=== PATIENT | female | born 1945 | race Caucasian/White ===

== ENCOUNTER → 2017-08-29 12:56 | Outpatient (CLI) | payer MEDICARE, OTHER, SELFPAY ==
--- NOTE | 2017-08-29 13:00 | HPBI_ITS ---
MAMMOGRAPHY - BILATERAL SCREENING 3-D ANDREW SYNTHESIS REASON FOR EXAM: Female, 72 years old. Bilateral Screening 3-D tomosynthesis PERTINENT HISTORY: Asymptomatic. Open-heart surgery 2009. No significant family history. TECHNIQUE: 2-D mammograms and 3-D Andrew synthesis of the breast (s) were performed. CAD was performed. COMPARISON: 02/03/2016, 01/22/2014. FINDINGS: The breast composition is almost entirely fat. Scattered benign calcifications are seen. No dense spiculated masses or suspicious microcalcifications are identified. No architectural distortion is identified. There is no skin thickening or retraction. There has been no significant change since the prior study. HPBI/SCREENING MAMM (CAD), BILAT IMPRESSION: No mammographic signs of malignancy. Routine yearly mammograms recommended. ASSESSMENT CATEGORY: BIRADS Category 1: Negative. A letter regarding these results will be sent to the patient by the facility within 30 days. FOLLOW UP RECOMMENDATION: Yearly follow up mammogram recommended. (A) Approximately 10% of breast cancers are not detected by mammography. A normal mammogram should not delay biopsy of a clinically suspicious abnormality. Electronically Signed: Matteo Schaefer, at 20:53 EDT Tel , Service support ,
== END ==
LOC: BD 12:57 → BI 13:14
PROVIDERS: Family Provider Family Medicine Geriatric Medicine; PCP Family Medicine Geriatric Medicine; Visit Provider Family Medicine Geriatric Medicine
DX: Z12.31 Encounter for screening mammogram for malignant neoplasm of breast (principal)
CPT/HCPCS: 77063; 77067

== ENCOUNTER 2018-11-29 11:11 | Inpatient (IN) | payer MEDICARE, OTHER, MEDICAID, SELFPAY ==
[2018-11-29] VITALS (11 sets, daily range): BP systolic 92–120; BP diastolic 43–86; PULSE 77–101; RESP 10–18; TEMP 36.8–37.3; O2SAT 98–100; BMI 21.1; BMI 20.1
--- NOTE | 2018-11-29 11:48 | EKG12_ITS ---
Test Reason : HYPOTENSION Blood Pressure : / mmHG Vent. Rate : 076 BPM Atrial Rate : 076 BPM P-R Int : 202 ms QRS Dur : 106 ms QT Int : 386 ms P-R-T Axes : 092 -15 123 degrees QTc Int : 434 ms Normal sinus rhythm with sinus arrhythmia Left ventricular hypertrophy with repolarization abnormality Anteroseptal infarct , age undetermined , cannot be excluded Abnormal ECG Confirmed by PEG MORENO, CRISSY ([id number]), newspaper editor YUE CAMPO ([id number]) on 12/03/2018 2:23:40 PM Referred By: DREW Confirmed By:CRISSY RUVALCABA MD
--- NOTE | 2018-11-29 11:50 | RAD_ITS ---
STUDY: X-RAY CHEST REASON FOR EXAM: Female, 73 years old. TECHNIQUE: 2 views COMPARISON: None. FINDINGS: The heart is not enlarged. There is aortic valve replacement. The aortic arch show some atherosclerotic changes. Both lung barbosa and costophrenic angles are clear. There is shoulder replacement on the right side. Multiple metallic stitches seen along the sternum from previous surgery. Metallic curtis are noted in the anterior abdomen from surgery. There is scoliosis of the dorsal spine convexity to the right side. RAD/Chest PA and Lateral IMPRESSION: No active intrathoracic disease. Electronically Signed: Eliud Perez, at 14:10 EDT Tel , Service support ,
--- NOTE | 2018-11-29 12:10 | ED.VISSUMM ---
- ER Visit Summary Date of Service: 11/29/18 Chief Complaint: Weakness, fatigue, pallor History of Present Illness: The patient is a 73 F who presents with weakness, fatigue, and pallor that has been getting progressively worse over the past 3 weeks. Patient states she feels aching all over and is fatigued. Patient states that she has to hold onto tinajero when she walks. Daughter states the patient did have an episode of confusion recently where she forgot her granddaughters name. Patient admits to some shortness of breath with exertion as well. Patient denies any chest pain. Patient denies any sore throat. Patient admits to subjective fevers but denies any chills. Patient denies any nausea or vomiting. Patient denies any melena or hematochezia but does state that she takes iron. Physical Examination: Vital signs are stable. Patient is afebrile. Patient is in no acute distress. Oral mucosa is pink and moist. Oropharynx is clear. Pupils are equal, round, reactive to light bilaterally. Extraocular muscles are intact. Conjunctivae is pale. Neck is supple. Trachea is midline. There is no JVD noted. Heart was regular rate and rhythm with a grade 3/6 systolic murmur. Lungs are clear and equal bilaterally. Abdomen is soft. Bowel sounds are normal. There is no tenderness. Cranial nerves II through XII are intact. Rectal exam showed good sphincter tone. There is black stool. Hemoccult was positive. There are no focal motor or sensory deficits noted. Test Results: EKG showed normal sinus rhythm with a rate of 76. There are nonspecific ST-T wave changes in the lateral leads. CBC shows a white blood cell count of 15.4. Hemoglobin was 6.9. BUN was elevated at 58 and creatinine is 1.24. Urinalysis shows leukocyte esterase of 25 with positive nitrites, 0-5 white blood cells, 0 epithelial cells, and 2+ bacteria. Troponin was normal. Emergency Department Course and Treatment: Patient was typed and crossmatched for 1 unit of packed red blood cells. Patient was given a dose of Bactrim here. Case was discussed with Dr. Pinto from surgery. He is agreeable with keeping the patient here at [facility]. Case was discussed with Dr. Chacon. He will admit the patient to his service. Disposition: Admit to hospital Impression: 1. Upper GI bleed 2. Urinary tract infection 3. Anemia This note was generated with [employer] dictation software. It may contain incorrect words, spelling, and punctuation that were not noted in review of the chart prior to signing ED Disposition - Plan for ED Patient: Disposition: Acute Care Hospital [facility] Diagnosis: Upper gastrointestinal bleeding Referrals: Vianca Baca MD [Primary Care Provider] -
[2018-11-29 13:19] LABS: Absolute Lymphocyte Count 1.33 X10^3/ul (0.83-4.51); Absolute Neutrophil Count 12.8 X10^3/uL (2.0-7.7); Basophil# 0.03 X10^3/uL; Basophil% 0.2 % (0-1); Eosinophil# 0.03 X10^3/uL; Eosinophils% 0.2 % (0-5); Hematocrit 20.4 % (37-47); Hemoglobin 6.9 g/dl (12.0-15.0); Lymphocyte # 1.33 X10^3/ul (4.0); Lymphocyte % 8.6 % (19-41); Mean Corp Hgb Conc 33.8 g/gl (32-36); Mean Corpuscular Hgb 31.5 pg (27.0-32.0); Mean Corpuscular Volume 93.2 fL (81-99); Mean Platelet Vol. 9.3 fl (6.2-12.0); Monocyte# 0.84 X10^3/uL; Monocyte% 5.5 % (0-10); Neutrophil # 12.76 X10^3/uL (2.7-7.7); Platelet Count 173 K/mm3 (150-450); RBC Distribution Width CV 14.9 % (11.6-14.6); Red Blood Count 2.19 M/mm3 (4.2-5.4); White Blood Count 15.4 K/mm3 (4.4-11.0)
[2018-11-29 13:20] LABS: Differential Indicated SCAN CRITERIA MET; POSITIVE COUNT YES; POSITIVE DIFFERENTIAL NO; POSITIVE MORPHOLOGY YES
[2018-11-29 13:26] LABS: ALB/GLOB Ratio 0.8 RATIO (0.9-2.4); AST(SGOT) 17 U/L (15-37); Alanine Aminotransfer ALT/SGPT 13 U/L (13-56); Albumin, Serum 2.6 g/dL (3.2-5.0); Alkaline Phosphatase 83 U/L (45-117); Anion Gap 7 (5-15); BUN 58 mg/dL (7-18); BUN/Creat Ratio 46.8 RATIO (10-20); Calcium,Total 8.2 mg/dL (8.5-10.1); Chloride 104 mmol/L (98-107); Creatinine, Serum 1.24 mg/dL (0.55-1.02); EST Glomerular Filtration Rate 45 mL/min (>60); Est Glom Filt Rate - Afr Amer 54 mL/min (>60); Estimated Creatinine Clearance 35.27 ml/min; Globulin 3.4 g/dL (2.2-4.2); Glucose 93 mg/dL (74-106); Potassium 3.8 mmol/L (3.5-5.1); Sodium Level 131 mmol/L (136-145)
[2018-11-29 13:28] LABS: Mucous, Urine 0 SEEN /hpf (<or=2+); Red Blood Cells-Urine 0 SEEN /hpf (0-5); Squamous Epithelial Cells - UA 0 SEEN /hpf (5-10)
[2018-11-29 13:43] LABS: Color, Urine Yellow (Yellow); Glucose, Dipstick Normal (Normal); Ketone-Dipstick Negative (Negative); Leukocyte Esterase-Dipstick 25 /ul (Negative); Nitrite-Dipstick Positive (Negative); Occult Blood-Urine 10 /ul (Negative); Protein-Dipstick Negative (Negative); Urine Bilirubin Dipstick Negative (Negative); Urine Clarity Clear (Clear); Urine Urobilinogen Normal (Normal)
[2018-11-29 13:44] LABS: Bacteria 2+ /hpf (None Seen); White Blood Cells 0-5 SEEN /hpf (0-5)
[2018-11-29] MEDS: Smz/Tmp Ds Tablet 1 TABLET PO (16:12)
--- NOTE | 2018-11-29 16:17 | PCM.HP.STD ---
<Brooks Arechiga - Last Filed: 11/29/18 16:17> Problem List (1) Anemia Status: Acute (2) GI bleed Status: Acute History of Present Illness Date of Admission: 11/29/18 Chief Complaint: fatigue The patient is a 73 year old F with pmhx of bovine aortic valve, arthritis, HTN, HLD, iron deficiency, who presents to the ER with c/c fatigue. She has been progressively more fatigued over the past three weeks. She has been lethargic, sleeping more, lightheaded, dizziness, and SOB. She was found to be anemic with Hgb 6.9. She has had black stools but notes that this is not new, and they are always black as she takes iron. She has intermittently seen drops of red blood and thinks that this has come from hemorrhoids. She does take a baby aspirin nightly that she says is because of her valve replacement. She does take daily mobic, she is not sure why. She has had no abdominal pain, no nausea/vomiting. She does not have a hx of ulcers, GERD, smoking, alcohol use. Stool is + for occult blood in the ER. She cannot remember when her last colonoscopy was however it was done by Dr. Saucedo and showed polyps at that time. UA was abnormal however she denies any new urinary symptoms including urgency, burning, pain, frequency, incontinence. No Fever/Chills. [] Past Medical History Allergies amoxicillin Allergy (Verified 11/29/18 11:16) Itching Penicillins Allergy (Verified 11/29/18 11:16) Itching Home Medications: Ambulatory Orders Medication Instructions Recorded Aspirin [Aspir 81] 81 mg PO DAILY 11/29/18 Carbidopa/Levodopa 1 tab PO BID 11/29/18 [Carbidopa-Levodopa 25-100 Tab] Cholecalciferol (Vitamin D3) 2,000 unit PO DAILY 11/29/18 [Vitamin D3] Citalopram Hydrobromide 10 mg PO DAILY 11/29/18 [Citalopram HBr] Ferrous Sulfate 325 mg PO BID 11/29/18 Fluticasone 0.05% [Flonase Nasal 2 spray NASAL DAILY 11/29/18 [place]] Losartan/Hydrochlorothiazide 1 tab PO DAILY 11/29/18 [Losartan-Hctz 50-12.5 mg Tab] Meloxicam 15 mg PO DAILY 11/29/18 Multivitamin [Multiple Vitamins] 1 tab PO DAILY 11/29/18 Oxybutynin [Ditropan] 5 mg PO TID 11/29/18 Potassium Chloride [Klor-Con M20] 20 meq PO DAILY 11/29/18 Pravastatin [Pravachol] 40 mg PO QHS 11/29/18 Vitamin B Complex 1 cap PO DAILY 11/29/18 traZODone [Desyrel] 100 mg PO QHS 11/29/18 Surgical History: total knee arthroplasty Smoking Status: Never smoker - *Family History Maternal History Items: No pertinent history Paternal History Items: No pertinent history Review of Systems Constitutional: Reports: Malaise, Weakness, Fatigue. Denies: Chills, Fever, Weight Change HEENT: Denies: Head Aches, Sinus Congestion, Sinus Drainage Cardiovascular: Denies: Chest Pain, Palpitations Respiratory: Denies: Cough, Shortness of breath at rest, Sputum production Gastrointestinal: Reports: - - bleeding hemorrhoids. chronic black stools.. Denies: Abdominal Pain, Diarrhea, Nausea, Vomiting Genitourinary: Denies: Dysuria Musculoskeletal: Denies: Joint Pain, Joint Tenderness Skin: Denies: Rash, Wounds Neurological: Denies: Numbness, Tingling, Focal weakness Psychiatric: Denies: Anxiety, Depression, Homicidal Ideations, Suicidal Ideations Hematologic/ Lymphatic: Denies: Easy Bruising, Easy Bleeding VTE Information - Inpt Only VTE Present on Admission: No VTE Mechan Device Prophylaxis: SCD's VTE Pharm Prophylaxis ordered?: No Patient Problems: Active and Suspected Problems Upper gastrointestinal bleeding (Acute) Anemia (Acute) GI bleed (Acute) Acute blood loss anemia (Acute) - Physical Exam General: Alert, Oriented x3, Cooperative, - - generalized pallor HEENT: Atraumatic, PERRLA, EOMI, Normocephalic Neck: Supple, No JVD, Negative Carotid Bruits Lungs: Clear to auscultation, Normal air movement Cardiovascular: Regular rate, No murmurs Abdomen: Bowel Sounds Present, Soft, Non Tender Extremities: No edema, Capillary Refill Less than 3 Seconds Skin: No rashes, No breakdown Musculoskeletal: No Tenderness to Palpation of Joints or Extremities Neurological: Cranial nerves II-XII grossly intact Psych/Mental Status: Normal Affect, Appropriate, Alert and oriented to time, place, person, mood and affect Vital Signs Temp Pulse Resp BP Pulse Ox 98.2 F 77 14 109/86 H 98 11/29/18 11:13 11/29/18 13:13 11/29/18 13:13 11/29/18 13:13 11/29/18 13:13 Oxygen Delivery Method Room Air Weight: 127 lb Body Mass Index (BMI) 21.1 Microbiology Past 72 Hours 11/29/18 14:33 Stool Occult Blood (KYLE) - Final Stool Occult Blood Positive Laboratory Tests Past 24 Hrs 11/29/18 11/29/18 11/29/18 12:55 12:55 13:25 WBC 15.4 H RBC 2.19 L Hgb 6.9 L Hct 20.4 L MCV 93.2 MCH 31.5 MCHC 33.8 RDW 14.9 H RDW Differential 50.0 H Plt Count 173 MPV 9.3 Immature Gran % (Auto) 2.500 H Neut % (Auto) 83.0 H Lymph % (Auto) 8.6 L [place] % (Auto) 5.5 Eos % (Auto) 0.2 Baso % (Auto) 0.2 Absolute Neuts (auto) 12.8 H Absolute Lymphs (auto) 1.33 Total Counted Not Reportable Sodium 131 L Potassium 3.8 Chloride 104 Carbon Dioxide 20.0 L Anion Gap 7 BUN 58 H Creatinine 1.24 H Estim Creat Clear Calc 35.27 Est GFR (MDRD) Af Amer 54 L Est GFR (MDRD) Non-Af 45 L BUN/Creatinine Ratio 46.8 H Glucose 93 Calcium 8.2 L Total Bilirubin 0.40 AST 17 ALT 13 Alkaline Phosphatase 83 Troponin I < 0.015 Total Protein 6.0 L Albumin 2.6 L Globulin 3.4 Albumin/Globulin Ratio 0.8 L Urine Color Yellow Urine Clarity Clear Urine pH 6.0 Ur Specific [place] 1.010 Urine Protein Negative Urine Glucose (UA) Normal Urine Ketones Negative Urine Occult Blood 10 H Urine Nitrite Positive H Urine Bilirubin Negative Urine Urobilinogen Normal Ur Leukocyte Esterase 25 H Urine RBC 0 SEEN Urine WBC 0-5 SEEN Ur Squamous Epith Cells 0 SEEN Urine Bacteria 2+ Urine Mucus 0 SEEN Assessment/Plan All Active Problems Upper gastrointestinal bleeding (Acute) Anemia (Acute) GI bleed (Acute) Acute blood loss anemia (Acute) 1. Acute blood loss anemia 2/2 GI bleed source unclear - does have black stools, occasional drops of blood in stools she attributes to hemorrhoids. No severe hemorrhage as she has had progressive symptoms for weeks. Hgb 6.9, will be transfused with 1 unit prbc in the ER. Hold aspirin, hold meloxicam. No hx ulcers, GERD, alcohol use, smoking, other NSAID use. Last colonoscopy per Dr. Saucedo, timeframe unknown, showed polyps at that time. C/s to Dr. Pnito for endoscopy. Continue iron. 2. HTN - stable 3. HLD - statin. 4. Anx/depression - celexa, trazodone. 5. Asymptomatic bacteriuria - received bactrim in ER. No fever. no symptoms. elevated wbc, possibly 2/2 gi bleed. 6. ? Parkinsons - on carbidopa/levodopa 7. Osteoarthritis - hold meloxicam. 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 8. Elevated BUN/Cr - suspect dehydration. trend. DVT ppx: SCDs DC planning: PTOT. This patient was seen by Brooks Arechiga PA-C under the supervision of Doctor Oswaldo. <Trevon Chacon - Last Filed: 11/29/18 17:07> Problem List (1) Acute blood loss anemia Status: Acute (2) GI bleed Status: Acute History of Present Illness The patient is a 73 year old F presents with progressive fatigue. Patient has been having black stools were period of time but she is on iron. Presented to the emergency room was found to have a hemoglobin of 6.9. Was heme positive as well. Patient does take aspirin as well as Mobic. Patient denies any hematochezia. Patient has had a colonoscopy in the past by Dr. Saucedo which showed some polyps at that time. [] Past Medical History Medical History: Medical History (Last Updated 11/29/18 @ 17:02 by Trevon Chacon DO) Depression F32.9 Hyperlipidemia E78.5 Iron deficiency anemia D50.9 Osteoarthritis M19.90 Parkinson disease G20 HTN (hypertension) I10 Allergies amoxicillin Allergy (Verified 11/29/18 11:16) Itching Penicillins Allergy (Verified 11/29/18 11:16) Itching Surgical History: total knee arthroplasty Smoking Status: Never smoker - *Family History Maternal History Items: No pertinent history Paternal History Items: No pertinent history Review of Systems Constitutional: Reports: Malaise, Weakness, Fatigue. Denies: Chills, Fever, Weight Change HEENT: Denies: Head Aches, Sinus Congestion, Sinus Drainage Cardiovascular: Denies: Chest Pain, Palpitations Respiratory: Denies: Cough, Shortness of breath at rest, Sputum production Gastrointestinal: Reports: -. Denies: Abdominal Pain, Diarrhea, Nausea, Vomiting Genitourinary: Denies: Dysuria Musculoskeletal: Denies: Joint Pain, Joint Tenderness Skin: Denies: Rash, Wounds Neurological: Denies: Focal weakness, Numbness Psychiatric: Denies: Anxiety, Depression, Homicidal Ideations, Suicidal Ideations Hematologic/ Lymphatic: Denies: Easy Bruising, Easy Bleeding VTE Information - Inpt Only VTE Present on Admission: No VTE Mechan Device Prophylaxis: SCD's VTE Pharm Prophylaxis ordered?: No - Physical Exam General: Alert, Cooperative, - HEENT: Atraumatic, PERRLA, EOMI, Normocephalic Neck: Supple, No JVD, Negative Carotid Bruits Lungs: Clear to auscultation, Normal air movement, No rhonchi Cardiovascular: Regular rate, Regular Rhythm, Normal S1, Normal S2, No murmurs Abdomen: Bowel Sounds Present, Soft, Non Tender, Non-Distended, No Hepato-splenomegaly Extremities: No edema, No Calf Tenderness Skin: No rashes, No breakdown Musculoskeletal: No Tenderness to Palpation of Joints or Extremities, No Muscle Wasting Neurological: Neuro grossly intact, Coordination normal Psych/Mental Status: Normal Affect, Appropriate Vital Signs Temp Pulse Resp BP Pulse Ox 36.8 C 77 14 109/86 H 98 11/29/18 11:13 11/29/18 13:13 11/29/18 13:13 11/29/18 13:13 11/29/18 13:13 Oxygen Delivery Method Room Air Weight: 57.606 kg Body Mass Index (BMI) 21.1 Microbiology Past 72 Hours 11/29/18 14:33 Stool Occult Blood (KYLE) - Final Stool Occult Blood Positive Laboratory Tests Past 24 Hrs 11/29/18 11/29/18 11/29/18 12:55 12:55 13:25 WBC 15.4 H RBC 2.19 L Hgb 6.9 L Hct 20.4 L MCV 93.2 MCH 31.5 MCHC 33.8 RDW 14.9 H RDW Differential 50.0 H Plt Count 173 MPV 9.3 Immature Gran % (Auto) 2.500 H Neut % (Auto) 83.0 H Lymph % (Auto) 8.6 L [place] % (Auto) 5.5 Eos % (Auto) 0.2 Baso % (Auto) 0.2 Absolute Neuts (auto) 12.8 H Absolute Lymphs (auto) 1.33 Total Counted Not Reportable Sodium 131 L Potassium 3.8 Chloride 104 Carbon Dioxide 20.0 L Anion Gap 7 BUN 58 H Creatinine 1.24 H Estim Creat Clear Calc 35.27 Est GFR (MDRD) Af Amer 54 L Est GFR (MDRD) Non-Af 45 L BUN/Creatinine Ratio 46.8 H Glucose 93 Calcium 8.2 L Total Bilirubin 0.40 AST 17 ALT 13 Alkaline Phosphatase 83 Troponin I < 0.015 Total Protein 6.0 L Albumin 2.6 L Globulin 3.4 Albumin/Globulin Ratio 0.8 L Urine Color Yellow Urine Clarity Clear Urine pH 6.0 Ur Specific [place] 1.010 Urine Protein Negative Urine Glucose (UA) Normal Urine Ketones Negative Urine Occult Blood 10 H Urine Nitrite Positive H Urine Bilirubin Negative Urine Urobilinogen Normal Ur Leukocyte Esterase 25 H Urine RBC 0 SEEN Urine WBC 0-5 SEEN Ur Squamous Epith Cells 0 SEEN Urine Bacteria 2+ Urine Mucus 0 SEEN Blood Type Antibody Screen Crossmatch 11/29/18 16:17 WBC RBC Hgb Hct MCV MCH MCHC RDW RDW Differential Plt Count MPV Immature Gran % (Auto) Neut % (Auto) Lymph % (Auto) [place] % (Auto) Eos % (Auto) Baso % (Auto) Absolute Neuts (auto) Absolute Lymphs (auto) Total Counted Sodium Potassium Chloride Carbon Dioxide Anion Gap BUN Creatinine Estim Creat Clear Calc Est GFR (MDRD) Af Amer Est GFR (MDRD) Non-Af BUN/Creatinine Ratio Glucose Calcium Total Bilirubin AST ALT Alkaline Phosphatase Troponin I Total Protein Albumin Globulin Albumin/Globulin Ratio Urine Color Urine Clarity Urine pH Ur Specific [place] Urine Protein Urine Glucose (UA) Urine Ketones Urine Occult Blood Urine Nitrite Urine Bilirubin Urine Urobilinogen Ur Leukocyte Esterase Urine RBC Urine WBC Ur Squamous Epith Cells Urine Bacteria Urine Mucus Blood Type Pending Antibody Screen Pending Crossmatch See Detail Assessment/Plan Patient seen and examined independently. Data reviewed. I agree with the above note by the physician graphic design assistant. 1. Acute blood loss anemia: Unclear where the GI tract that she is losing it but she was heme positive. Patient be transfused 1 unit of packed red blood cells. Will monitor and follow-up subsequent hemoglobins Hold aspirin as well as meloxicam 2. GI bleed Given the dark stools and no overt hematochezia, I suspect source is likely upper in origin Hold the NSAIDs Start PPI Dr. Ingram, of general surgery, has been contacted and will see the patient in consultation and plan for endoscopy tentatively for the . 3. Asymptomatic bacteriuria 2+ bacteria and 25 leukoesterase, however 0-5 white blood cells. Would not treat for urinary tract infection as there is no urinary tract infection based on her lack of symptoms and a urinalysis. 4. Questionable Parkinson's disease Patient on Sinemet Patient does have concern for movement disorder consult is Parkinson's, would recommend referral to movement disorder specialist for more thorough evaluation 5. VTE prophylaxis with SCDs. Chemical prophylaxis contraindicated in light of the anemia and GI bleed. Code Visit Inpatient E&M: 82716 Init Hosp L3
--- NOTE | 2018-11-29 16:30 | CASEMGMT ---
RN CM Assessment Introduced role of RN CM to patient and patient Dtr Cristina Saavedra at bedside.? Patient is alert, oriented and able?to participate in RN CM Assessment. ?Care providers, pharmacy, and demographics verified. Presentation: Weakness, Fatigue, Generalized Body aches, SOB w/exertion, and Pallor progressing over the past 3 weeks. Per Dtr-episode of confusion. Re-Admit: No Barriers/Issues: None. Patient has four children that all live in [place] with good support system. PCP: Vianca Baca Specialists: YUE Saucedo Preferred [facility]acy: [facility] Insurance: [employer], Physician [place] Rx Benefit:?Yes LNOK: Dtr- Cristina Saavedra LW/HPOA: States has done but unsure where paperwork is. Would like to complete again, agrees to for information/completion. Living Arrangements:?Lives alone in a SS home, Ramp in front, side of home with 2 steps. ADL?s: Independent with ambulation and ADL's Transportation: Drives, Dtr Cristina upon DC DME: None HHC: None. No Preference on Agency if needed. SNF: None. If recommended, states open to a SNF. However Goal this episode is to return home. Goal: Home, Unsure of any needs. Denies questions or concerns. Aware CM remains available for any emerging needs. DC PLAN: Home with possible HH PT. EDWIGE Burleson
--- NOTE | 2018-11-29 18:03 | ECHOD_ITS ---
Reason For Study: Murmur Procedure This was a 2D Doppler, Color Flow transthoracic echocardiogram. The exam was of adequate technical quality. Exam performed portable in patient room. Left Ventricle Normal LV size. Left ventricular systolic function is hyperdynamic. The estimated ejection fraction is 75 %. There is evidence of diastolic dysfunction. No regional wall motion abnormalities noted. Right Ventricle Normal RV size. Normal systolic function. Atria Normal left atrium. Normal right atrium. No doppler evidence for ASD. Mitral Valve There is mild mitral annular calcification. Mild diffuse mitral valve thickening. Trivial mitral valve insufficiency. Tricuspid Valve Normal tricuspid valve. Mild tricuspid valve insufficiency. Right ventricular systolic pressure estimated to be 35 mmHg. Aortic Valve Severe aortic stenosis. Stable appearing bioprosthetic aortic valve apparatus. Trivial transvalvular insufficiency of the aortic valve. Pulmonic Valve The pulmonic valve is not well visualized. Great Vessels Normal sized aortic root. Pericardium/Pleural No pericardial effusion. MMode/2D Measurements & Calculations LVIDd: 3.7 cm IVSd: 1.4 cm LVOT diam: 1.7 cm LVIDs: 2.3 cm LVPWd: 1.2 cm LVOT area: 2.2 cm2 RVDd: 3.3 cm FS: 36.9 % Ao root diam: 2.7 cm LAV(MOD-bp): 40.7 ml LVAd ap4: 24.3 cm2 LAV(MOD-bp) Indexed: 25.6 ml/m2 EDV(MOD-sp4): 63.4 ml LAV(MOD-sp2): 63.1 ml EDV(sp4-el): 66.2 ml LAV(MOD-sp4): 24.4 ml LVAs ap4: 11.0 cm2 ESV(MOD-sp4): 17.7 ml ESV(sp4-el): 16.6 ml EF(MOD-sp4): 72.1 % EF(sp4-el): 74.9 % SV(MOD-sp4): 45.8 ml SV(sp4-el): 49.6 ml LA A4 area: 12.6 cm2 LA dimension(2D): 3.3 cm RA A4 area: 13.7 cm2 Doppler Measurements & Calculations MV E max vikas: 75.0 cm/sec Lat Peak E' Vikas: 9.8 cm/sec Med Peak E' Vikas: 3.5 cm/sec MV A max vikas: 104.6 cm/sec E/E' lat: 7.6 E/E' med: 21.5 MV E/A: 0.72 Ao V2 max: 529.4 cm/sec AI max vikas: 369.4 cm/sec LV V1 max: 221.5 cm/sec Ao max P.1 mmHg AI max P.6 mmHg LV V1 max P.6 mmHg Ao V2 mean: 378.0 cm/sec LV V1 mean P.5 mmHg Ao mean P.5 mmHg AI dec slope: 271.4 cm/sec2 LV V1 mean: 167.4 cm/sec Ao V2 VTI: 112.9 cm AI P1/2t: 398.7 msec LV V1 VTI: 45.3 cm WILFRID(I,D): 0.90 cm2 WILFRID(V,D): 0.93 cm2 SV(LVOT): 101.1 ml PA V2 max: 142.5 cm/sec TR max vikas: 282.0 cm/sec TR max P.8 mmHg Interpretation Summary Left ventricular systolic function is hyperdynamic. The estimated ejection fraction is 75 %. There is mild mitral annular calcification. Mild diffuse mitral valve thickening. Trivial mitral valve insufficiency. Mild tricuspid valve insufficiency. Stable appearing bioprosthetic aortic valve apparatus. Severe aortic stenosis. (By spectral Doppler criteria with an aortic valve maximal velocity of approximately 5.3 m/s; an aortic valve mean gradient of approximately 64 mmHg; and an aortic valve area of 0.9 cm??) Trivial transvalvular insufficiency of the aortic valve. Right ventricular systolic pressure estimated to be 35 mmHg. There is evidence of diastolic dysfunction. Comment: Late peaking spectral Doppler pattern in the mid LV cavity area approaching 3.0 m/s compatible with a peak gradient of 36 mmHg compatible with a hyperdynamic state. Ordering Physician: Sawyer Pinto Referring Physician: Vianca Baca Performed By: Karie Lopes RDCS, RVT
--- NOTE | 2018-11-29 18:03 | PCM.CONS.GEN ---
Reason for Consult Date of Consultation: 11/29/18 Reason for Consultation: anemia, fatigue History of Present Illness: The patient is a 73 year old F who presented to her primary care office today with complaint of increasing fatigue and appearing pale to her daughter.the patient notes a 3 week history of increasing fatigue. The patient's daughter noted she was pale appearing. In the office, the patient was noted to be hypotensive and was positive for orthostasis. She was transferred to [facility] emergency department. In the ER, the patient was found to have a white blood count of 15,000 and hemoglobin of 6.9.BUN and creatinine were elevated at 58 and 1.2. Sodium was slightly low at 131. Stool was positive for occult blood. the patient does not smoke. She denies alcohol use. She does take Advil she states 3 out of 4 nights to help her sleep at night. the patient's past surgical history is significant for kidney stones, hypertension and reflux.she apparently had an aortic valve replacement at [facility] in 2004 she states replacement with a bovine aortic valve. She takes aspirin but no other blood thinners. Other listed surgical procedure includes hysterectomy with bilateral salpingo-oophorectomy, bilateral knee replacement and listed Geo-en-Y gastric bypass. she recalls she had lower endoscopy performed by Dr. Saucedo probably 4-5 years previously and recalls that she had polyps in her colon at that time removed. The patient was admitted to the medicine service and I was consulted. Past Medical History Medical History: Medical History (Last Updated 11/29/18 @ 17:02 by Trevon Chacon DO) Depression F32.9 Hyperlipidemia E78.5 Iron deficiency anemia D50.9 Osteoarthritis M19.90 Parkinson disease G20 HTN (hypertension) I10 Allergies amoxicillin Allergy (Verified 11/29/18 11:16) Itching Penicillins Allergy (Verified 11/29/18 11:16) Itching Home Medications: Ambulatory Orders Medication Instructions Recorded Aspirin [Aspir 81] 81 mg PO DAILY 11/29/18 Carbidopa/Levodopa 1 tab PO BID 11/29/18 [Carbidopa-Levodopa 25-100 Tab] Cholecalciferol (Vitamin D3) 2,000 unit PO DAILY 11/29/18 [Vitamin D3] Citalopram Hydrobromide 10 mg PO DAILY 11/29/18 [Citalopram HBr] Ferrous Sulfate 325 mg PO BID 11/29/18 Fluticasone 0.05% [Flonase Nasal 2 spray NASAL DAILY 11/29/18 [place]] Losartan/Hydrochlorothiazide 1 tab PO DAILY 11/29/18 [Losartan-Hctz 50-12.5 mg Tab] Meloxicam 15 mg PO DAILY 11/29/18 Multivitamin [Multiple Vitamins] 1 tab PO DAILY 11/29/18 Oxybutynin [Ditropan] 5 mg PO TID 11/29/18 Potassium Chloride [Klor-Con M20] 20 meq PO DAILY 11/29/18 Pravastatin [Pravachol] 40 mg PO QHS 11/29/18 Vitamin B Complex 1 cap PO DAILY 11/29/18 traZODone [Desyrel] 100 mg PO QHS 11/29/18 Surgical History: gastric bypass, hysterectomy, total knee arthroplasty Smoking Status: Never smoker - *Family History Maternal History Items: No pertinent history Paternal History Items: No pertinent history Review of Systems Constitutional: Reports: Weight Change, Fatigue HEENT: Denies: Head Aches, Sinus Congestion, Sinus Drainage Cardiovascular: Denies: Chest Pain, Palpitations Respiratory: Denies: Cough, Shortness of breath at rest, Sputum production Gastrointestinal: Denies: Abdominal Pain, Nausea, Vomiting Genitourinary: Denies: Dysuria Musculoskeletal: Denies: Joint Pain, Joint Tenderness Patient Problems: Active and Suspected Problems (Last Updated 11/29/18 @ 17:02 by Trevon Chacon DO) Upper gastrointestinal bleeding (Acute) Anemia (Acute) GI bleed (Acute) Acute blood loss anemia (Acute) - Physical Exam General: Alert, Oriented x3, - - pale-appearing HEENT: Atraumatic Lungs: Clear to auscultation, Normal air movement Cardiovascular: Regular rate, Murmur - very loud 5/6 murmur without radiation obviously noted Abdomen: Bowel Sounds Present, Soft, Non Tender Vital Signs Temp Pulse Resp BP Pulse Ox 98.8 F 95 16 120/59 L 100 11/29/18 16:44 11/29/18 17:16 11/29/18 16:44 11/29/18 16:44 11/29/18 16:44 Oxygen Delivery Method Room Air Weight: 54.839 kg Body Mass Index (BMI) 20.1 Microbiology Past 72 Hours 11/29/18 14:33 Stool Occult Blood (KYLE) - Final Stool Occult Blood Positive Laboratory Tests Past 24 Hrs 11/29/18 11/29/18 11/29/18 12:55 12:55 13:25 WBC 15.4 H RBC 2.19 L Hgb 6.9 L Hct 20.4 L MCV 93.2 MCH 31.5 MCHC 33.8 RDW 14.9 H RDW Differential 50.0 H Plt Count 173 MPV 9.3 Immature Gran % (Auto) 2.500 H Neut % (Auto) 83.0 H Lymph % (Auto) 8.6 L [place] % (Auto) 5.5 Eos % (Auto) 0.2 Baso % (Auto) 0.2 Absolute Neuts (auto) 12.8 H Absolute Lymphs (auto) 1.33 Total Counted Not Reportable Sodium 131 L Potassium 3.8 Chloride 104 Carbon Dioxide 20.0 L Anion Gap 7 BUN 58 H Creatinine 1.24 H Estim Creat Clear Calc 35.27 Est GFR (MDRD) Af Amer 54 L Est GFR (MDRD) Non-Af 45 L BUN/Creatinine Ratio 46.8 H Glucose 93 Calcium 8.2 L Total Bilirubin 0.40 AST 17 ALT 13 Alkaline Phosphatase 83 Troponin I < 0.015 Total Protein 6.0 L Albumin 2.6 L Globulin 3.4 Albumin/Globulin Ratio 0.8 L Urine Color Yellow Urine Clarity Clear Urine pH 6.0 Ur Specific [place] 1.010 Urine Protein Negative Urine Glucose (UA) Normal Urine Ketones Negative Urine Occult Blood 10 H Urine Nitrite Positive H Urine Bilirubin Negative Urine Urobilinogen Normal Ur Leukocyte Esterase 25 H Urine RBC 0 SEEN Urine WBC 0-5 SEEN Ur Squamous Epith Cells 0 SEEN Urine Bacteria 2+ Urine Mucus 0 SEEN Blood Type Antibody Screen Crossmatch 11/29/18 16:17 WBC RBC Hgb Hct MCV MCH MCHC RDW RDW Differential Plt Count MPV Immature Gran % (Auto) Neut % (Auto) Lymph % (Auto) [place] % (Auto) Eos % (Auto) Baso % (Auto) Absolute Neuts (auto) Absolute Lymphs (auto) Total Counted Sodium Potassium Chloride Carbon Dioxide Anion Gap BUN Creatinine Estim Creat Clear Calc Est GFR (MDRD) Af Amer Est GFR (MDRD) Non-Af BUN/Creatinine Ratio Glucose Calcium Total Bilirubin AST ALT Alkaline Phosphatase Troponin I Total Protein Albumin Globulin Albumin/Globulin Ratio Urine Color Urine Clarity Urine pH Ur Specific [place] Urine Protein Urine Glucose (UA) Urine Ketones Urine Occult Blood Urine Nitrite Urine Bilirubin Urine Urobilinogen Ur Leukocyte Esterase Urine RBC Urine WBC Ur Squamous Epith Cells Urine Bacteria Urine Mucus Blood Type Pending Antibody Screen Pending Crossmatch See Detail Assessment/Plan All Active Problems (Last Updated 11/29/18 @ 17:02 by Trevon Chacon DO) Upper gastrointestinal bleeding (Acute) Anemia (Acute) GI bleed (Acute) Acute blood loss anemia (Acute) fatigue, anemia, heme positive stools, NSAID use, history of aortic valve replacement, loud murmur the patient is currently receiving 1 unit of packed red cells. There recheck her hemoglobin following this. The patient is currently clinically dehydrated and has elevated BUN/creatinine likely comminution dehydration and metabolism of her blood in the GI tract. We'll follow her laboratory functions and exam. Patient with significant aortic murmur with history of aortic valve replacement. Would plan for echocardiogram to assess for valve function and risk for congestive heart failure/cardiac dysfunction. As long as patient remains in family stable, would plan for fluid resuscitation and transfusion. Once parameters are improved would plan for bowel prep and plan for upper and lower endoscopy. The patient and her family understand the risks, benefits, complications and possible turns to endoscopy and consent to the planned procedure.
[2018-11-29] MEDS: 0.9% NaCl Peripheral Flush Adult/Peds IV ×2 (18:49→23:40)
--- NOTE | 2018-11-29 19:07 | NURSING ---
assisted pt to BSC where she began to feel dizzy. assisted back to bed and placed in trendelenberg with cool washcloth to forehead. vitals stable and after laying down, pt began to feel improved. family at bedside. will continue to monitor.
[2018-11-29] MEDS: Pantoprazole Sodium 40 MG Tablet PO (19:57)
[2018-11-29] MEDS: hydrOXYzine PAM 25 MG Capsule 50 MG PO (19:57)
[2018-11-29] MEDS: Ensure Clear 120 ML Liquid PO (21:25)
[2018-11-29] MEDS: Pravastatin 40 MG Tablet PO (21:25)
[2018-11-29] MEDS: traZODone 100 MG Tablet PO (21:25)
[2018-11-30] VITALS (18 sets, daily range): BP systolic 90–133; BP diastolic 46–85; PULSE 67–129; RESP 12–20; TEMP 36.8–37.2; O2SAT 97–100
[2018-11-30 00:29] LABS: Hematocrit 20.6 % (37-47); Hemoglobin 6.8 g/dl (12.0-15.0); Mean Corpuscular Hgb 30.4 pg (27.0-32.0); Mean Platelet Vol. 9.4 fl (6.2-12.0); Platelet Count 153 K/mm3 (150-450); RBC Distribution Width CV 14.4 % (11.6-14.6); RBC Distribution Width SD 45.2 fl (35.1-43.9); Red Blood Count 2.24 M/mm3 (4.2-5.4); White Blood Count 13.9 K/mm3 (4.4-11.0)
[2018-11-30 00:32] LABS: Differential Indicated MANUAL DIFF; POSITIVE COUNT YES; POSITIVE DIFFERENTIAL NO; POSITIVE MORPHOLOGY YES
[2018-11-30 01:05] LABS: Eosinophil 1 % (0-5); Lymphocyte 9 % (19-41); Monocyte 2 % (0-10); Neutrophil-Band 2 % (0-5); Neutrophil-Segmented 86 % (47-70); Total Cells Counted 100 (MANUAL DIFF)
[2018-11-30 01:07] LABS: Platelet Estimate ADEQUATE (ADEQ); Red Cell Morphology N CHROM NORMAL (NORM C&C); Toxic Granulation 1+
[2018-11-30 01:08] LABS: Absolute Lymphocyte Count 1.25 X10^3/ul (0.83-4.51); Absolute Neutrophil Count 12.2 X10^3/uL (2.0-7.7); Lymphocyte # 1.25 X10^3/ul (4.0); Macrocytosis 1+; Microcytosis 2+; Neutrophil # 12.23 X10^3/uL (2.7-7.7)
--- NOTE | 2018-11-30 02:21 | EKG12_ITS ---
Test Reason : RHYTHM CHANGE Blood Pressure : / mmHG Vent. Rate : 083 BPM Atrial Rate : 083 BPM P-R Int : 202 ms QRS Dur : 114 ms QT Int : 398 ms P-R-T Axes : 078 -03 174 degrees QTc Int : 467 ms Normal sinus rhythm Incomplete left bundle branch block ST & T wave abnormality, consider lateral ischemia Abnormal ECG Confirmed by PEG MORENO, CRISSY ([id number]), editorial director RASHAAD AYERS ([id number] on 12/04/2018 12:01:52 PM Referred By: DR BELL Confirmed By:CRISSY RUVALCABA MD
[2018-11-30] MEDS: 0.9% NaCl Peripheral Flush Adult/Peds IV (05:00)
[2018-11-30] MEDS: Carbidopa/Levodopa 25/100 Tablet PO ×2 (06:36→15:51)
[2018-11-30 06:53] LABS: Hematocrit 22.2 % (37-47); Hemoglobin 7.7 g/dl (12.0-15.0); Mean Corp Hgb Conc 34.7 g/gl (32-36); Mean Corpuscular Hgb 30.6 pg (27.0-32.0); Mean Corpuscular Volume 88.1 fL (81-99); Mean Platelet Vol. 8.9 fl (6.2-12.0); Platelet Count 130 K/mm3 (150-450); RBC Distribution Width SD 47.7 fl (35.1-43.9); Red Blood Count 2.52 M/mm3 (4.2-5.4); White Blood Count 11.2 K/mm3 (4.4-11.0)
[2018-11-30 06:56] LABS: Anion Gap 6 (5-15); BUN 57 mg/dL (7-18); BUN/Creat Ratio 53.8 RATIO (10-20); Calcium,Total 7.5 mg/dL (8.5-10.1); Chloride 108 mmol/L (98-107); Creatinine, Serum 1.06 mg/dL (0.55-1.02); EST Glomerular Filtration Rate 54 mL/min (>60); Est Glom Filt Rate - Afr Amer 65 mL/min (>60); Glucose 92 mg/dL (74-106); Potassium 3.6 mmol/L (3.5-5.1); Sodium Level 134 mmol/L (136-145)
[2018-11-30 07:02] LABS: Differential Indicated MANUAL DIFF; POSITIVE COUNT YES; POSITIVE DIFFERENTIAL NO; POSITIVE MORPHOLOGY YES
[2018-11-30 07:06] LABS: International Normalized Ratio 1.4; Prothrombin Time (Protime)PT. 17.4 SECONDS (11.7-14.9)
[2018-11-30 07:11] LABS: Basophil 1 % (0-1); Lymphocyte 11 % (19-41); Metamyelocyte 2 % (0-1); Monocyte 2 % (0-10); Neutrophil-Band 4 % (0-5); Neutrophil-Segmented 80 % (47-70); Platelet Estimate ADEQUATE (ADEQ); Red Cell Morphology NORM C+C NORMAL (NORM C&C); Total Cells Counted 100 (MANUAL DIFF)
[2018-11-30 07:12] LABS: Toxic Granulation 3+
[2018-11-30 07:13] LABS: Absolute Lymphocyte Count 1.23 X10^3/ul (0.83-4.51); Absolute Neutrophil Count 9.4 X10^3/uL (2.0-7.7); Lymphocyte # 1.23 X10^3/ul (4.0); Neutrophil # 9.41 X10^3/uL (2.7-7.7)
[2018-11-30] MEDS: Oxybutynin 5 MG Tablet PO ×3 (09:11→17:13)
[2018-11-30] MEDS: Pantoprazole Sodium 40 MG Tablet PO ×2 (09:11→22:27)
[2018-11-30] MEDS: Ferrous Sulfate 325 MG Tablet PO ×2 (09:12→17:13)
[2018-11-30] MEDS: Vitamin B Comp W-C Capsule 1 CAP PO (09:12)
[2018-11-30] MEDS: Multivitamins,Therapeutic Tablet 1 TABLET PO (09:12)
[2018-11-30] MEDS: Losartan Potassium 50 MG Tablet PO (09:13)
[2018-11-30] MEDS: Citalopram 10 MG Tablet PO (09:13)
[2018-11-30] MEDS: Fluticasone 0.05% 1 SPRAY NASAL.SRY 2 SPRAY NASAL (09:14)
[2018-11-30] MEDS: hydroCHLOROthiazide 12.5mg 12.5 MG PO (09:14)
--- NOTE | 2018-11-30 12:17 | PCM.PROGNOTE ---
<Brooks Arechiga - Last Filed: 11/30/18 12:17> Patient Problems: Active and Suspected Problems (Last Updated 11/29/18 @ 17:02 by Trevon Chacon DO) Upper gastrointestinal bleeding (Acute) Anemia (Acute) GI bleed (Acute) Acute blood loss anemia (Acute) Subjective: one BM since admission - again black. Pt currently receiving 2nd unit PRBCs. Notes improved fatigue and SOB. Pallor is improving as well. Pt had echo this am - results pending. Endoscopy likely tomorrow with Dr. Pinto. Confirmed with patient she was not taking any NSAID in the evening, she was taking tylenol to help fall asleep, at least per todays discussion. - Physical Exam General: Alert, Oriented x3, Cooperative HEENT: Atraumatic, PERRLA, EOMI, Normocephalic Neck: Supple, No JVD, Negative Carotid Bruits Lungs: Clear to auscultation, Normal air movement Cardiovascular: Regular rate, No murmurs Abdomen: Bowel Sounds Present, Soft, Non Tender Extremities: No edema, Capillary Refill Less than 3 Seconds Skin: No rashes, No breakdown, - - Pallor Musculoskeletal: No Tenderness to Palpation of Joints or Extremities Neurological: Cranial nerves II-XII grossly intact Psych/Mental Status: Normal Affect, Appropriate Vital Signs Temp Pulse Resp BP Pulse Ox 98.5 F 74 14 133/60 H 98 11/30/18 12:03 11/30/18 12:03 11/30/18 12:03 11/30/18 12:03 11/30/18 12:03 Oxygen Delivery Method Room Air Weight: 120 lb 13.013 oz Body Mass Index (BMI) 20.1 Intake and Output for Last 24 Hours 11/28/18 11/29/18 11/30/18 23:59 23:59 23:59 Intake Total 1073 / 1073 1772 / 1772 Balance 1073 / 1073 1772 / 1772 Microbiology Past 72 Hours 11/29/18 14:33 Stool Occult Blood (KYLE) - Final Stool Occult Blood Positive Laboratory Tests Past 24 Hrs 11/29/18 11/29/18 11/29/18 12:55 12:55 13:25 WBC 15.4 H RBC 2.19 L Hgb 6.9 L Hct 20.4 L MCV 93.2 MCH 31.5 MCHC 33.8 RDW 14.9 H RDW Differential 50.0 H Plt Count 173 MPV 9.3 Immature Gran % (Auto) 2.500 H Neut % (Auto) 83.0 H Lymph % (Auto) 8.6 L [place] % (Auto) 5.5 Eos % (Auto) 0.2 Baso % (Auto) 0.2 Absolute Neuts (auto) 12.8 H Absolute Lymphs (auto) 1.33 Total Counted Not Reportable Neutrophils % (Manual) Band Neutrophils % Lymphocytes % (Manual) Monocytes % (Manual) Eosinophils % (Manual) Basophils % (Manual) Metamyelocytes % Diff Path Review Toxic Granulation Platelet Estimate RBC Morphology Microcytosis Macrocytosis PT INR Sodium 131 L Potassium 3.8 Chloride 104 Carbon Dioxide 20.0 L Anion Gap 7 BUN 58 H Creatinine 1.24 H Estim Creat Clear Calc 35.27 Est GFR (MDRD) Af Amer 54 L Est GFR (MDRD) Non-Af 45 L BUN/Creatinine Ratio 46.8 H Glucose 93 Calcium 8.2 L Total Bilirubin 0.40 AST 17 ALT 13 Alkaline Phosphatase 83 Troponin I < 0.015 Total Protein 6.0 L Albumin 2.6 L Globulin 3.4 Albumin/Globulin Ratio 0.8 L Urine Color Yellow Urine Clarity Clear Urine pH 6.0 Ur Specific [place] 1.010 Urine Protein Negative Urine Glucose (UA) Normal Urine Ketones Negative Urine Occult Blood 10 H Urine Nitrite Positive H Urine Bilirubin Negative Urine Urobilinogen Normal Ur Leukocyte Esterase 25 H Urine RBC 0 SEEN Urine WBC 0-5 SEEN Ur Squamous Epith Cells 0 SEEN Urine Bacteria 2+ Urine Mucus 0 SEEN Blood Type Antibody Screen Crossmatch 11/29/18 11/29/18 11/29/18 16:17 16:17 16:17 WBC RBC Hgb Hct MCV MCH MCHC RDW RDW Differential Plt Count MPV Immature Gran % (Auto) Neut % (Auto) Lymph % (Auto) [place] % (Auto) Eos % (Auto) Baso % (Auto) Absolute Neuts (auto) Absolute Lymphs (auto) Total Counted Neutrophils % (Manual) Band Neutrophils % Lymphocytes % (Manual) Monocytes % (Manual) Eosinophils % (Manual) Basophils % (Manual) Metamyelocytes % Diff Path Review Toxic Granulation Platelet Estimate RBC Morphology Microcytosis Macrocytosis PT INR Sodium Potassium Chloride Carbon Dioxide Anion Gap BUN Creatinine Estim Creat Clear Calc Est GFR (MDRD) Af Amer Est GFR (MDRD) Non-Af BUN/Creatinine Ratio Glucose Calcium Total Bilirubin AST ALT Alkaline Phosphatase Troponin I Total Protein Albumin Globulin Albumin/Globulin Ratio Urine Color Urine Clarity Urine pH Ur Specific [place] Urine Protein Urine Glucose (UA) Urine Ketones Urine Occult Blood Urine Nitrite Urine Bilirubin Urine Urobilinogen Ur Leukocyte Esterase Urine RBC Urine WBC Ur Squamous Epith Cells Urine Bacteria Urine Mucus Blood Type AB NEGATIVE Antibody Screen TNP NEGATIVE Crossmatch See Detail See Detail 11/29/18 11/30/18 11/30/18 16:17 00:15 06:23 WBC 13.9 H 11.2 H RBC 2.24 L 2.52 L Hgb 6.8 L 7.7 L Hct 20.6 L 22.2 L MCV 92.0 88.1 MCH 30.4 30.6 MCHC 33.0 34.7 RDW 14.4 15.0 H RDW Differential 45.2 H 47.7 H Plt Count 153 130 L MPV 9.4 8.9 Immature Gran % (Auto) Neut % (Auto) Not Reportable Not Reportable Lymph % (Auto) [place] % (Auto) Eos % (Auto) Baso % (Auto) Absolute Neuts (auto) 12.2 H 9.4 H Absolute Lymphs (auto) 1.25 1.23 Total Counted 100 100 Neutrophils % (Manual) 86 H 80 H Band Neutrophils % 2 4 Lymphocytes % (Manual) 9 L 11 L Monocytes % (Manual) 2 2 Eosinophils % (Manual) 1 Basophils % (Manual) 1 Metamyelocytes % 2 H Diff Path Review May foll May foll Toxic Granulation 1+ 3+ Platelet Estimate ADEQUATE ADEQUATE RBC Morphology N CHROM NORM C+C Microcytosis 2+ Macrocytosis 1+ PT INR Sodium Potassium Chloride Carbon Dioxide Anion Gap BUN Creatinine Estim Creat Clear Calc Est GFR (MDRD) Af Amer Est GFR (MDRD) Non-Af BUN/Creatinine Ratio Glucose Calcium Total Bilirubin AST ALT Alkaline Phosphatase Troponin I Total Protein Albumin Globulin Albumin/Globulin Ratio Urine Color Urine Clarity Urine pH Ur Specific [place] Urine Protein Urine Glucose (UA) Urine Ketones Urine Occult Blood Urine Nitrite Urine Bilirubin Urine Urobilinogen Ur Leukocyte Esterase Urine RBC Urine WBC Ur Squamous Epith Cells Urine Bacteria Urine Mucus Blood Type Antibody Screen Crossmatch See Detail 11/30/18 11/30/18 11/30/18 06:35 06:35 06:35 WBC RBC Hgb Hct MCV MCH MCHC RDW RDW Differential Plt Count MPV Immature Gran % (Auto) Neut % (Auto) Lymph % (Auto) [place] % (Auto) Eos % (Auto) Baso % (Auto) Absolute Neuts (auto) Absolute Lymphs (auto) Total Counted Neutrophils % (Manual) Band Neutrophils % Lymphocytes % (Manual) Monocytes % (Manual) Eosinophils % (Manual) Basophils % (Manual) Metamyelocytes % Diff Path Review Toxic Granulation Platelet Estimate RBC Morphology Microcytosis Macrocytosis PT 17.4 H INR 1.4 Sodium 134 L Potassium 3.6 Chloride 108 H Carbon Dioxide 20.0 L Anion Gap 6 BUN 57 H Creatinine 1.06 H Estim Creat Clear Calc 39.70 Est GFR (MDRD) Af Amer 65 Est GFR (MDRD) Non-Af 54 L BUN/Creatinine Ratio 53.8 H Glucose 92 Calcium 7.5 L Total Bilirubin AST ALT Alkaline Phosphatase Troponin I 0.020 Total Protein Albumin Globulin Albumin/Globulin Ratio Urine Color Urine Clarity Urine pH Ur Specific [place] Urine Protein Urine Glucose (UA) Urine Ketones Urine Occult Blood Urine Nitrite Urine Bilirubin Urine Urobilinogen Ur Leukocyte Esterase Urine RBC Urine WBC Ur Squamous Epith Cells Urine Bacteria Urine Mucus Blood Type Antibody Screen Crossmatch Medical Necessity - Tobacco Use Smoking Status: Never smoker Assessment/Plan All Active Problems (Last Updated 11/29/18 @ 17:02 by Trevon Chacon DO) Upper gastrointestinal bleeding (Acute) Anemia (Acute) GI bleed (Acute) Acute blood loss anemia (Acute) 1. Acute blood loss anemia 2/2 GI bleed source unclear -black stools continue since admission, she is on her second unit of PRBCs, hemoglobin has improved from 6.97.7. Platelets have declined from 1 73-1 30. Aspirin and Mobic have been held. No other reported NSAID use. General surgery following, echo pending, likely endoscopy tomorrow. Continue PPI. WBCs improved. 2. HTN - stable 3. HLD - statin. 4. Anx/depression - celexa, trazodone. 5. Asymptomatic bacteriuria - received bactrim in ER. No fever. no symptoms. elevated wbc, possibly 2/2 gi bleed. 6. ? Parkinsons - on carbidopa/levodopa 7. Osteoarthritis - hold meloxicam. 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 8. Elevated BUN/Cr - suspect dehydration. trend. DVT ppx: SCDs DC planning: PTOT. This patient was seen by Brooks Arechiga PA-C under the supervision of Doctor Mimi. 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 11/29/18 14:33 Stool Occult Blood (KYLE) - Final Stool Occult Blood Positive Laboratory Tests Past 24 Hrs 11/29/18 11/29/18 11/29/18 16:17 16:17 16:17 WBC RBC Hgb Hct MCV MCH MCHC RDW RDW Differential Plt Count MPV Neut % (Auto) Absolute Neuts (auto) Absolute Lymphs (auto) Total Counted Neutrophils % (Manual) Band Neutrophils % Lymphocytes % (Manual) Monocytes % (Manual) Eosinophils % (Manual) Basophils % (Manual) Metamyelocytes % Diff Path Review Toxic Granulation Platelet Estimate RBC Morphology Microcytosis Macrocytosis PT INR Sodium Potassium Chloride Carbon Dioxide Anion Gap BUN Creatinine Estim Creat Clear Calc Est GFR (MDRD) Af Amer Est GFR (MDRD) Non-Af BUN/Creatinine Ratio Glucose Calcium Troponin I Blood Type AB NEGATIVE Antibody Screen TNP NEGATIVE Crossmatch See Detail See Detail 11/29/18 11/30/18 11/30/18 16:17 00:15 06:23 WBC 13.9 H 11.2 H RBC 2.24 L 2.52 L Hgb 6.8 L 7.7 L Hct 20.6 L 22.2 L MCV 92.0 88.1 MCH 30.4 30.6 MCHC 33.0 34.7 RDW 14.4 15.0 H RDW Differential 45.2 H 47.7 H Plt Count 153 130 L MPV 9.4 8.9 Neut % (Auto) Not Reportable Not Reportable Absolute Neuts (auto) 12.2 H 9.4 H Absolute Lymphs (auto) 1.25 1.23 Total Counted 100 100 Neutrophils % (Manual) 86 H 80 H Band Neutrophils % 2 4 Lymphocytes % (Manual) 9 L 11 L Monocytes % (Manual) 2 2 Eosinophils % (Manual) 1 Basophils % (Manual) 1 Metamyelocytes % 2 H Diff Path Review May foll May foll Toxic Granulation 1+ 3+ Platelet Estimate ADEQUATE ADEQUATE RBC Morphology N CHROM NORM C+C Microcytosis 2+ Macrocytosis 1+ PT INR Sodium Potassium Chloride Carbon Dioxide Anion Gap BUN Creatinine Estim Creat Clear Calc Est GFR (MDRD) Af Amer Est GFR (MDRD) Non-Af BUN/Creatinine Ratio Glucose Calcium Troponin I Blood Type Antibody Screen Crossmatch See Detail 11/30/18 11/30/18 11/30/18 06:35 06:35 06:35 WBC RBC Hgb Hct MCV MCH MCHC RDW RDW Differential Plt Count MPV Neut % (Auto) Absolute Neuts (auto) Absolute Lymphs (auto) Total Counted Neutrophils % (Manual) Band Neutrophils % Lymphocytes % (Manual) Monocytes % (Manual) Eosinophils % (Manual) Basophils % (Manual) Metamyelocytes % Diff Path Review Toxic Granulation Platelet Estimate RBC Morphology Microcytosis Macrocytosis PT 17.4 H INR 1.4 Sodium 134 L Potassium 3.6 Chloride 108 H Carbon Dioxide 20.0 L Anion Gap 6 BUN 57 H Creatinine 1.06 H Estim Creat Clear Calc 39.70 Est GFR (MDRD) Af Amer 65 Est GFR (MDRD) Non-Af 54 L BUN/Creatinine Ratio 53.8 H Glucose 92 Calcium 7.5 L Troponin I 0.020 Blood Type Antibody Screen Crossmatch Assessment/Plan This patient was seen in conjunction with STACEY Herrera. I have independently interviewed and examined the patient and reviewed pertinent historical, laboratory, and other data. Please refer to STACEY Herrera note for his patient's presentation, findings, and recommendations. I have reviewed and his note and concur with his documentation Patient was seen and examined. Denied any dizziness or palpitation or chest pain. Admitted last night with GI bleed. Her aspirin and Mobic has been held. General surgery consulted, will be having EGD/colonoscopy tomorrow. Physical Exam: Gen: Comfortable, pale, not jaundiced CVS:HS I +II, regular, no murmurs RESP: Diminished at lung bases, no crackles GI: BS present and normal, soft, nontender, no palpable organs EXT: Trace bilateral pedal edema ASSESSMENT: 1. Acute blood loss anemia 2. Acute GI bleed 3. Hypertension 4. Hyperlipidemia 5. Anxiety/depression Plan: Transfuse 1 unit pRBCs, pantoprazole BID Colonoscopy/EGD in a.m. Bowel prep per general surgery Continue on home BP meds Code Visit Inpatient E&M: 39379 Subs Hosp L2
[2018-11-30] MEDS: 0.9% Normal Saline 1,000 ML 100 ML IV ×2 (12:20→22:27)
--- NOTE | 2018-11-30 12:42 | PCM.PN.SRG ---
Patient Problems: Active and Suspected Problems (Last Updated 11/29/18 @ 17:02 by Trevon Chacon DO) Upper gastrointestinal bleeding (Acute) Anemia (Acute) GI bleed (Acute) Acute blood loss anemia (Acute) Subjective: Still fatigued, no further bloody bowel movements - Physical Exam General: Alert, Oriented x3, Cooperative Lungs: Clear to auscultation, Normal air movement Cardiovascular: Regular rate, Murmur Abdomen: Bowel Sounds Present, Soft, Non Tender Vital Signs Temp Pulse Resp BP Pulse Ox 98.5 F 74 14 133/60 H 98 11/30/18 12:03 11/30/18 12:03 11/30/18 12:03 11/30/18 12:03 11/30/18 12:03 Oxygen Delivery Method Room Air Weight: 54.8 kg Body Mass Index (BMI) 20.1 Intake and Output for Last 24 Hours 11/28/18 11/29/18 11/30/18 23:59 23:59 23:59 Intake Total 1073 / 1073 1772 / 1772 Balance 1073 / 1073 1772 / 1772 Microbiology Past 72 Hours 11/29/18 14:33 Stool Occult Blood (KYLE) - Final Stool Occult Blood Positive Laboratory Tests Past 24 Hrs 11/29/18 11/29/18 11/29/18 12:55 12:55 13:25 WBC 15.4 H RBC 2.19 L Hgb 6.9 L Hct 20.4 L MCV 93.2 MCH 31.5 MCHC 33.8 RDW 14.9 H RDW Differential 50.0 H Plt Count 173 MPV 9.3 Immature Gran % (Auto) 2.500 H Neut % (Auto) 83.0 H Lymph % (Auto) 8.6 L [place] % (Auto) 5.5 Eos % (Auto) 0.2 Baso % (Auto) 0.2 Absolute Neuts (auto) 12.8 H Absolute Lymphs (auto) 1.33 Total Counted Not Reportable Neutrophils % (Manual) Band Neutrophils % Lymphocytes % (Manual) Monocytes % (Manual) Eosinophils % (Manual) Basophils % (Manual) Metamyelocytes % Diff Path Review Toxic Granulation Platelet Estimate RBC Morphology Microcytosis Macrocytosis PT INR Sodium 131 L Potassium 3.8 Chloride 104 Carbon Dioxide 20.0 L Anion Gap 7 BUN 58 H Creatinine 1.24 H Estim Creat Clear Calc 35.27 Est GFR (MDRD) Af Amer 54 L Est GFR (MDRD) Non-Af 45 L BUN/Creatinine Ratio 46.8 H Glucose 93 Calcium 8.2 L Total Bilirubin 0.40 AST 17 ALT 13 Alkaline Phosphatase 83 Troponin I < 0.015 Total Protein 6.0 L Albumin 2.6 L Globulin 3.4 Albumin/Globulin Ratio 0.8 L Urine Color Yellow Urine Clarity Clear Urine pH 6.0 Ur Specific Wallace 1.010 Urine Protein Negative Urine Glucose (UA) Normal Urine Ketones Negative Urine Occult Blood 10 H Urine Nitrite Positive H Urine Bilirubin Negative Urine Urobilinogen Normal Ur Leukocyte Esterase 25 H Urine RBC 0 SEEN Urine WBC 0-5 SEEN Ur Squamous Epith Cells 0 SEEN Urine Bacteria 2+ Urine Mucus 0 SEEN Blood Type Antibody Screen Crossmatch 11/29/18 11/29/18 11/29/18 16:17 16:17 16:17 WBC RBC Hgb Hct MCV MCH MCHC RDW RDW Differential Plt Count MPV Immature Gran % (Auto) Neut % (Auto) Lymph % (Auto) [place] % (Auto) Eos % (Auto) Baso % (Auto) Absolute Neuts (auto) Absolute Lymphs (auto) Total Counted Neutrophils % (Manual) Band Neutrophils % Lymphocytes % (Manual) Monocytes % (Manual) Eosinophils % (Manual) Basophils % (Manual) Metamyelocytes % Diff Path Review Toxic Granulation Platelet Estimate RBC Morphology Microcytosis Macrocytosis PT INR Sodium Potassium Chloride Carbon Dioxide Anion Gap BUN Creatinine Estim Creat Clear Calc Est GFR (MDRD) Af Amer Est GFR (MDRD) Non-Af BUN/Creatinine Ratio Glucose Calcium Total Bilirubin AST ALT Alkaline Phosphatase Troponin I Total Protein Albumin Globulin Albumin/Globulin Ratio Urine Color Urine Clarity Urine pH Ur Specific Wallace Urine Protein Urine Glucose (UA) Urine Ketones Urine Occult Blood Urine Nitrite Urine Bilirubin Urine Urobilinogen Ur Leukocyte Esterase Urine RBC Urine WBC Ur Squamous Epith Cells Urine Bacteria Urine Mucus Blood Type AB NEGATIVE Antibody Screen TNP NEGATIVE Crossmatch See Detail See Detail 11/29/18 11/30/18 11/30/18 16:17 00:15 06:23 WBC 13.9 H 11.2 H RBC 2.24 L 2.52 L Hgb 6.8 L 7.7 L Hct 20.6 L 22.2 L MCV 92.0 88.1 MCH 30.4 30.6 MCHC 33.0 34.7 RDW 14.4 15.0 H RDW Differential 45.2 H 47.7 H Plt Count 153 130 L MPV 9.4 8.9 Immature Gran % (Auto) Neut % (Auto) Not Reportable Not Reportable Lymph % (Auto) [place] % (Auto) Eos % (Auto) Baso % (Auto) Absolute Neuts (auto) 12.2 H 9.4 H Absolute Lymphs (auto) 1.25 1.23 Total Counted 100 100 Neutrophils % (Manual) 86 H 80 H Band Neutrophils % 2 4 Lymphocytes % (Manual) 9 L 11 L Monocytes % (Manual) 2 2 Eosinophils % (Manual) 1 Basophils % (Manual) 1 Metamyelocytes % 2 H Diff Path Review May foll May foll Toxic Granulation 1+ 3+ Platelet Estimate ADEQUATE ADEQUATE RBC Morphology N CHROM NORM C+C Microcytosis 2+ Macrocytosis 1+ PT INR Sodium Potassium Chloride Carbon Dioxide Anion Gap BUN Creatinine Estim Creat Clear Calc Est GFR (MDRD) Af Amer Est GFR (MDRD) Non-Af BUN/Creatinine Ratio Glucose Calcium Total Bilirubin AST ALT Alkaline Phosphatase Troponin I Total Protein Albumin Globulin Albumin/Globulin Ratio Urine Color Urine Clarity Urine pH Ur Specific Wallace Urine Protein Urine Glucose (UA) Urine Ketones Urine Occult Blood Urine Nitrite Urine Bilirubin Urine Urobilinogen Ur Leukocyte Esterase Urine RBC Urine WBC Ur Squamous Epith Cells Urine Bacteria Urine Mucus Blood Type Antibody Screen Crossmatch See Detail 11/30/18 11/30/18 11/30/18 06:35 06:35 06:35 WBC RBC Hgb Hct MCV MCH MCHC RDW RDW Differential Plt Count MPV Immature Gran % (Auto) Neut % (Auto) Lymph % (Auto) [place] % (Auto) Eos % (Auto) Baso % (Auto) Absolute Neuts (auto) Absolute Lymphs (auto) Total Counted Neutrophils % (Manual) Band Neutrophils % Lymphocytes % (Manual) Monocytes % (Manual) Eosinophils % (Manual) Basophils % (Manual) Metamyelocytes % Diff Path Review Toxic Granulation Platelet Estimate RBC Morphology Microcytosis Macrocytosis PT 17.4 H INR 1.4 Sodium 134 L Potassium 3.6 Chloride 108 H Carbon Dioxide 20.0 L Anion Gap 6 BUN 57 H Creatinine 1.06 H Estim Creat Clear Calc 39.70 Est GFR (MDRD) Af Amer 65 Est GFR (MDRD) Non-Af 54 L BUN/Creatinine Ratio 53.8 H Glucose 92 Calcium 7.5 L Total Bilirubin AST ALT Alkaline Phosphatase Troponin I 0.020 Total Protein Albumin Globulin Albumin/Globulin Ratio Urine Color Urine Clarity Urine pH Ur Specific [place] Urine Protein Urine Glucose (UA) Urine Ketones Urine Occult Blood Urine Nitrite Urine Bilirubin Urine Urobilinogen Ur Leukocyte Esterase Urine RBC Urine WBC Ur Squamous Epith Cells Urine Bacteria Urine Mucus Blood Type Antibody Screen Crossmatch Medical Necessity - Tobacco Use Smoking Status: Never smoker Assessment/Plan All Active Problems (Last Updated 11/29/18 @ 17:02 by Trevon Chacon DO) Upper gastrointestinal bleeding (Acute) Anemia (Acute) GI bleed (Acute) Acute blood loss anemia (Acute) fatigue, anemia, heme positive stools, NSAID use, history of aortic valve replacement, loud murmur the patient hemoglobin remains below 7. I wrote for an additional 1 unit of packed red cells. The patient is currently clinically dehydrated and has elevated BUN/creatinine likely comminution dehydration and metabolism of her blood in the GI tract. We'll follow her laboratory functions and exam. Patient with significant aortic murmur with history of aortic valve replacement. Echocardiogram demonstrated severe aortic stenosis but good cardiac output and wall motion. I plan for upper and lower endoscopy tomorrow morning. The patient and her family understand the risks, benefits, complications and possible turns to endoscopy and consent to the planned procedure.
--- NOTE | 2018-11-30 15:46 | CASEMGMT ---
Social Work Completed Advanced Directives with pt, per her request. Copy put in chart. Sydni Pacheco, ABORIGINAL EDUCATION WORKER COORDINATOR ELECTRONIC LAB TECHNICIAN
[2018-11-30] MEDS: Electrolyte Solution/Peg's 4000 ML PO (15:50)
[2018-11-30] MEDS: Pravastatin 40 MG Tablet PO (22:27)
[2018-11-30] MEDS: traZODone 100 MG Tablet PO (22:27)
[2018-12-01] VITALS (19 sets, daily range): BP systolic 98–146; BP diastolic 41–79; PULSE 66–96; RESP 14–18; TEMP 36.8–37.7; O2SAT 96–100
[2018-12-01 04:50] LABS: Hematocrit 22.8 % (37-47); Mean Corp Hgb Conc 35.1 g/gl (32-36); Mean Corpuscular Hgb 30.4 pg (27.0-32.0); Mean Corpuscular Volume 86.7 fL (81-99); Mean Platelet Vol. 8.9 fl (6.2-12.0); Platelet Count 110 K/mm3 (150-450); RBC Distribution Width CV 16.3 % (11.6-14.6); RBC Distribution Width SD 50.8 fl (35.1-43.9); Red Blood Count 2.63 M/mm3 (4.2-5.4)
[2018-12-01 04:52] LABS: Differential Indicated MANUAL DIFF; POSITIVE COUNT YES; POSITIVE DIFFERENTIAL NO; POSITIVE MORPHOLOGY YES
[2018-12-01 04:58] LABS: Anion Gap 7 (5-15); BUN 29 mg/dL (7-18); BUN/Creat Ratio 39.9 RATIO (10-20); Calcium,Total 7.1 mg/dL (8.5-10.1); Chloride 115 mmol/L (98-107); Creatinine, Serum 0.73 mg/dL (0.55-1.02); EST Glomerular Filtration Rate 83 mL/min (>60); Est Glom Filt Rate - Afr Amer 100 mL/min (>60); Estimated Creatinine Clearance 42.05 ml/min; Glucose 91 mg/dL (74-106); Potassium 3.4 mmol/L (3.5-5.1); Sodium Level 139 mmol/L (136-145)
[2018-12-01 05:08] LABS: Eosinophil 2 % (0-5); Lymphocyte 7 % (19-41); Metamyelocyte 5 % (0-1); Monocyte 5 % (0-10); Neutrophil-Band 7 % (0-5); Neutrophil-Segmented 74 % (47-70); Total Cells Counted 100 (MANUAL DIFF)
[2018-12-01 05:10] LABS: Absolute Neutrophil Count 8.6 X10^3/uL (2.0-7.7)
[2018-12-01 05:11] LABS: Platelet Estimate SLT DEC (ADEQ)
[2018-12-01 05:12] LABS: Red Cell Morphology NORM C+C NORMAL (NORM C&C)
[2018-12-01 05:55] LABS: Magnesium 1.4 mg/dL (1.6-2.6)
--- NOTE | 2018-12-01 08:32 | PCM.PN.SRG ---
Patient Problems: Active and Suspected Problems (Last Updated 11/29/18 @ 17:02 by Trevon Chacon DO) Upper gastrointestinal bleeding (Acute) Anemia (Acute) GI bleed (Acute) Acute blood loss anemia (Acute) Subjective: no complaints - Physical Exam General: Alert, Oriented x3, Cooperative Lungs: Clear to auscultation, Normal air movement Cardiovascular: Regular rate, Murmur Abdomen: Bowel Sounds Present, Soft, Non Tender Vital Signs Temp Pulse Resp BP Pulse Ox 98.4 F 85 18 114/62 97 12/01/18 08:30 12/01/18 08:30 12/01/18 08:30 12/01/18 08:30 12/01/18 08:30 Oxygen Delivery Method Room Air Weight: 54.8 kg Body Mass Index (BMI) 20.1 Intake and Output for Last 24 Hours 11/29/18 11/30/18 12/01/18 23:59 23:59 23:59 Intake Total 1073 / 1073 2252 / 7119 6000 / 6000 Balance 1073 / 1073 2252 / 7119 6000 / 6000 Microbiology Past 72 Hours 11/29/18 14:35 Urine Culture - Final Urine, Clean Catch Klebsiella pneumoniae sp pneum 11/29/18 14:33 Stool Occult Blood (KYLE) - Final Stool Occult Blood Positive Laboratory Tests Past 24 Hrs 11/29/18 12/01/18 12/01/18 16:17 04:33 04:33 WBC 10.0 RBC 2.63 L Hgb 8.0 L Hct 22.8 L MCV 86.7 MCH 30.4 MCHC 35.1 RDW 16.3 H RDW Differential 50.8 H Plt Count 110 L MPV 8.9 Neut % (Auto) Not Reportable Absolute Neuts (auto) 8.6 H Absolute Lymphs (auto) 0.70 L Total Counted 100 Neutrophils % (Manual) 74 H Band Neutrophils % 7 H Lymphocytes % (Manual) 7 L Monocytes % (Manual) 5 Eosinophils % (Manual) 2 Metamyelocytes % 5 H Diff Path Review May foll Platelet Estimate SLT DEC RBC Morphology NORM C+C Sodium 139 Potassium 3.4 L Chloride 115 H Carbon Dioxide 17.0 L Anion Gap 7 BUN 29 H Creatinine 0.73 Estim Creat Clear Calc 42.05 Est GFR (MDRD) Af Amer 100 Est GFR (MDRD) Non-Af 83 BUN/Creatinine Ratio 39.9 H Glucose 91 Calcium 7.1 L Magnesium Crossmatch See Detail 12/01/18 04:33 WBC RBC Hgb Hct MCV MCH MCHC RDW RDW Differential Plt Count MPV Neut % (Auto) Absolute Neuts (auto) Absolute Lymphs (auto) Total Counted Neutrophils % (Manual) Band Neutrophils % Lymphocytes % (Manual) Monocytes % (Manual) Eosinophils % (Manual) Metamyelocytes % Diff Path Review Platelet Estimate RBC Morphology Sodium Potassium Chloride Carbon Dioxide Anion Gap BUN Creatinine Estim Creat Clear Calc Est GFR (MDRD) Af Amer Est GFR (MDRD) Non-Af BUN/Creatinine Ratio Glucose Calcium Magnesium 1.4 L Crossmatch Medical Necessity - Tobacco Use Smoking Status: Never smoker Assessment/Plan All Active Problems (Last Updated 11/29/18 @ 17:02 by Trevon Chacon DO) Upper gastrointestinal bleeding (Acute) Anemia (Acute) GI bleed (Acute) Acute blood loss anemia (Acute) fatigue, anemia, heme positive stools, NSAID use, history of aortic valve replacement, loud murmur the patient hemoglobin remains below 7. I wrote for an additional 1 unit of packed red cells. The patient is currently clinically dehydrated and has elevated BUN/creatinine likely comminution dehydration and metabolism of her blood in the GI tract. We'll follow her laboratory functions and exam. Patient with significant aortic murmur with history of aortic valve replacement. Echocardiogram demonstrated severe aortic stenosis but good cardiac output and wall motion. Upper and lower endoscopy was performed. 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 Colonoscopy demonstrated older blood to cecum. Bleeding source likely small bowel or gastric remnant. Will transfuse 1 additional unit PRBC. Obtain CT scan to assess if gastric remnant is distended, suggesting gastric remnant bleed. If recurrent bleeding - would obtain bleeding scan.
--- NOTE | 2018-12-01 08:37 | CT_ITS ---
STUDY: CT ABDOMEN AND PELVIS WITHOUT CONTRAST REASON FOR EXAM: Female, 73 years old. GI bleed. RADIATION DOSAGE (If Supplied By Facility): CTDIvol = ( 6.51 ) mGy, DLP = ( 286.30 ) mGycm TECHNIQUE: Transaxial images were obtained from the dome of the diaphragm to the symphysis pubis without oral contrast, and without intravenous contrast. Sagittal and coronal images were reconstructed. Individualized dose optimization techniques were used for this CT. COMPARISON: None. FINDINGS: Evaluation of the abdominal viscera is limited in the absence of intravenous contrast. There are trace bilateral pleural effusions with overlying atelectasis. The visualized portions of the heart and pericardium are within normal limits. The patient is status post cholecystectomy. The liver demonstrates an unremarkable unenhanced appearance. The spleen is normal in size. The pancreas demonstrates an unremarkable unenhanced appearance. The adrenal glands are within normal limits. There is an 8 mm stone at the left ureteropelvic junction with mild left hydronephrosis. There are no right renal or ureteral stones. There is no right hydronephrosis. There are surgical clips noted in the stomach and in the small bowel which is likely from prior gastric bypass procedure. There is no bowel obstruction or inflammation. The appendix is not visualized, but there are no findings to suggest acute appendicitis. The aorta is normal in caliber. There is no abdominal or pelvic free air, free fluid, fluid collection or lymphadenopathy. There are no destructive osseous lesions. CT/Abdomen/Pelvis without Cont IMPRESSION: Study limited without contrast. 8 mm stone at the left ureteropelvic junction with mild left hydronephrosis. No bowel obstruction or inflammation. Electronically Signed: Braeden Mclaughlin, at 12:48 EDT Tel , Service support ,
[2018-12-01] MEDS: 0.9% Normal Saline 1,000 ML 100 ML IV ×2 (10:17→21:23)
[2018-12-01] MEDS: Multivitamins,Therapeutic Tablet 1 TABLET PO (10:18)
[2018-12-01] MEDS: Ferrous Sulfate 325 MG Tablet PO ×2 (10:19→17:13)
[2018-12-01] MEDS: Carbidopa/Levodopa 25/100 Tablet PO ×2 (10:19→17:13)
[2018-12-01] MEDS: Potassium Chloride 10mEq/100mL 10 MEQ/100 ML IV.SOLN. 100 MEQ IV BOLUS ×4 (10:20→14:08)
[2018-12-01] MEDS: Oxybutynin 5 MG Tablet PO ×3 (10:20→17:13)
[2018-12-01] MEDS: Vitamin B Comp W-C Capsule 1 CAP PO (10:22)
[2018-12-01] MEDS: Pantoprazole Sodium 40 MG Tablet PO ×2 (10:22→21:23)
[2018-12-01] MEDS: Fluticasone 0.05% 1 SPRAY NASAL.SRY 2 SPRAY NASAL (10:24)
[2018-12-01] MEDS: Losartan Potassium 50 MG Tablet PO (10:24)
[2018-12-01] MEDS: Citalopram 10 MG Tablet PO (10:24)
[2018-12-01] MEDS: hydroCHLOROthiazide 12.5mg 12.5 MG PO (10:26)
--- NOTE | 2018-12-01 13:48 | PCM.PROGNOTE ---
<Brooks Arechiga - Last Filed: 12/01/18 13:48> Patient Problems: Active and Suspected Problems (Last Updated 11/29/18 @ 17:02 by Trevon Chacon DO) Upper gastrointestinal bleeding (Acute) Anemia (Acute) GI bleed (Acute) Acute blood loss anemia (Acute) Subjective: Pt underwent endoscopy this AM, black blood noted in the large bowel. Pt feels overall that she has improved. No SOB/fatigue/palpitations/dizziness/LH. She is agreeable to CT, blood transfusion, and possible need for bleed scan or transfer depending on her clinical course. - Physical Exam General: Alert, Oriented x3, Cooperative HEENT: Atraumatic, PERRLA, EOMI, Normocephalic Neck: Supple, No JVD, Negative Carotid Bruits Lungs: Clear to auscultation, Normal air movement Cardiovascular: Regular rate, No murmurs Abdomen: Bowel Sounds Present, Soft, Non Tender Extremities: No edema, Capillary Refill Less than 3 Seconds Skin: No rashes, No breakdown Musculoskeletal: No Tenderness to Palpation of Joints or Extremities Neurological: Cranial nerves II-XII grossly intact Psych/Mental Status: Normal Affect, Appropriate, Alert and oriented to time, place, person, mood and affect Vital Signs Temp Pulse Resp BP Pulse Ox 98.5 F 77 16 113/52 L 97 12/01/18 13:37 12/01/18 13:37 12/01/18 13:37 12/01/18 13:37 12/01/18 13:37 Oxygen Delivery Method Room Air Weight: 120 lb 13.013 oz Body Mass Index (BMI) 20.1 Intake and Output for Last 24 Hours 11/29/18 11/30/18 12/01/18 23:59 23:59 23:59 Intake Total 1073 / 1073 2252 / 7119 8228 / 8228 Output Total 1800 / 1800 Balance 1073 / 1073 2252 / 7119 6428 / 6428 Microbiology Past 72 Hours 11/29/18 14:35 Urine Culture - Final Urine, Clean Catch Klebsiella pneumoniae sp pneum 11/29/18 14:33 Stool Occult Blood (KYLE) - Final Stool Occult Blood Positive Laboratory Tests Past 24 Hrs 11/29/18 12/01/18 12/01/18 16:07 04:33 04:33 WBC 10.0 RBC 2.63 L Hgb 8.0 L Hct 22.8 L MCV 86.7 MCH 30.4 MCHC 35.1 RDW 16.3 H RDW Differential 50.8 H Plt Count 110 L MPV 8.9 Neut % (Auto) Not Reportable Absolute Neuts (auto) 8.6 H Absolute Lymphs (auto) 0.70 L Total Counted 100 Neutrophils % (Manual) 74 H Band Neutrophils % 7 H Lymphocytes % (Manual) 7 L Monocytes % (Manual) 5 Eosinophils % (Manual) 2 Metamyelocytes % 5 H Diff Path Review May foll Platelet Estimate SLT DEC RBC Morphology NORM C+C Sodium 139 Potassium 3.4 L Chloride 115 H Carbon Dioxide 17.0 L Anion Gap 7 BUN 29 H Creatinine 0.73 Estim Creat Clear Calc 42.05 Est GFR (MDRD) Af Amer 100 Est GFR (MDRD) Non-Af 83 BUN/Creatinine Ratio 39.9 H Glucose 91 Calcium 7.1 L Magnesium Crossmatch See Detail 12/01/18 04:33 WBC RBC Hgb Hct MCV MCH MCHC RDW RDW Differential Plt Count MPV Neut % (Auto) Absolute Neuts (auto) Absolute Lymphs (auto) Total Counted Neutrophils % (Manual) Band Neutrophils % Lymphocytes % (Manual) Monocytes % (Manual) Eosinophils % (Manual) Metamyelocytes % Diff Path Review Platelet Estimate RBC Morphology Sodium Potassium Chloride Carbon Dioxide Anion Gap BUN Creatinine Estim Creat Clear Calc Est GFR (MDRD) Af Amer Est GFR (MDRD) Non-Af BUN/Creatinine Ratio Glucose Calcium Magnesium 1.4 L Crossmatch Medical Necessity - Tobacco Use Smoking Status: Never smoker Assessment/Plan All Active Problems (Last Updated 11/29/18 @ 17:02 by Trevon Chacon DO) Upper gastrointestinal bleeding (Acute) Anemia (Acute) GI bleed (Acute) Acute blood loss anemia (Acute) 1. Acute blood loss anemia 2/2 GI bleed source unclear -EGD/Colon this AM per Dr. Pinto. Transfuse 3rd units PRBC. Old blood in large bowel. Probably small bowel bleed elsewhere. Poor improvement in Hgb with blood. May need bleed scane. CT abdomen not significant for GI bleed however there is a UPJ stone with hydronephrosis. 2. Ureteral stone - 8mm with hydronephrosis UPJ continue IV fluids. Asymptomatic as of this AM. Renal function stable. Trend, given hydronephrosis. 3. HTN - stable 4. HLD - statin. 5. Anx/depression - celexa, trazodone. 6. Asymptomatic bacteriuria - received bactrim in ER. No fever. no symptoms. elevated wbc, possibly 2/2 gi bleed. 7. ? Parkinsons - on carbidopa/levodopa 8. Osteoarthritis - hold meloxicam. 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 9. Elevated BUN/Cr - suspect dehydration. trend. DVT ppx: SCDs DC planning: PTOT. This patient was seen by Brooks Arechiga PA-C under the supervision of Doctor Mimi. <[place] - Last Filed: 12/01/18 17:14> - Physical Exam Vital Signs Temp Pulse Resp BP Pulse Ox 98.5 F 84 14 138/79 H 98 12/01/18 15:52 12/01/18 15:52 12/01/18 15:52 12/01/18 15:52 12/01/18 15:52 Oxygen Delivery Method Room Air Weight: 54.8 kg Body Mass Index (BMI) 20.1 Intake and Output for Last 24 Hours 11/29/18 11/30/18 12/01/18 23:59 23:59 23:59 Intake Total 1073 / 1073 2252 / 7119 8228 / 8228 Output Total 1800 / 1800 Balance 1073 / 1073 2252 / 7119 6428 / 6428 Microbiology Past 72 Hours 11/29/18 14:35 Urine Culture - Final Urine, Clean Catch Klebsiella pneumoniae sp pneum 11/29/18 14:33 Stool Occult Blood (KYLE) - Final Stool Occult Blood Positive Laboratory Tests Past 24 Hrs 11/29/18 12/01/18 12/01/18 16:07 04:33 04:33 WBC 10.0 RBC 2.63 L Hgb 8.0 L Hct 22.8 L MCV 86.7 MCH 30.4 MCHC 35.1 RDW 16.3 H RDW Differential 50.8 H Plt Count 110 L MPV 8.9 Neut % (Auto) Not Reportable Absolute Neuts (auto) 8.6 H Absolute Lymphs (auto) 0.70 L Total Counted 100 Neutrophils % (Manual) 74 H Band Neutrophils % 7 H Lymphocytes % (Manual) 7 L Monocytes % (Manual) 5 Eosinophils % (Manual) 2 Metamyelocytes % 5 H Diff Path Review May foll Platelet Estimate SLT DEC RBC Morphology NORM C+C Sodium 139 Potassium 3.4 L Chloride 115 H Carbon Dioxide 17.0 L Anion Gap 7 BUN 29 H Creatinine 0.73 Estim Creat Clear Calc 42.05 Est GFR (MDRD) Af Amer 100 Est GFR (MDRD) Non-Af 83 BUN/Creatinine Ratio 39.9 H Glucose 91 Calcium 7.1 L Magnesium Crossmatch See Detail 12/01/18 04:33 WBC RBC Hgb Hct MCV MCH MCHC RDW RDW Differential Plt Count MPV Neut % (Auto) Absolute Neuts (auto) Absolute Lymphs (auto) Total Counted Neutrophils % (Manual) Band Neutrophils % Lymphocytes % (Manual) Monocytes % (Manual) Eosinophils % (Manual) Metamyelocytes % Diff Path Review Platelet Estimate RBC Morphology Sodium Potassium Chloride Carbon Dioxide Anion Gap BUN Creatinine Estim Creat Clear Calc Est GFR (MDRD) Af Amer Est GFR (MDRD) Non-Af BUN/Creatinine Ratio Glucose Calcium Magnesium 1.4 L Crossmatch Assessment/Plan This patient was seen in conjunction with STACEY Herrera. I have independently interviewed and examined the patient and reviewed pertinent historical, laboratory, and other data. Please refer to STACEY Herrera note for his patient's presentation, findings, and recommendations. I have reviewed and his note and concur with his documentation Patient was seen and examined. She had EGD/colonoscopy today which showed that blood in her bowels likely secondary to small bowel AVM bleed. Patient denies any new complaints today. Physical Exam: Gen: Comfortable, pale, not jaundiced CVS:HS I +II, regular, no murmurs RESP: Diminished at lung bases, no crackles GI: BS present and normal, soft, nontender, no palpable organs EXT: Trace bilateral pedal edema ASSESSMENT: 1. Acute blood loss anemia 2. Acute GI bleed 3. Hypertension 4. Hyperlipidemia 5. Anxiety/depression Plan: Discussed with Dr. Pinto, will monitor patient, she continued to bleed, would need to be transferred for a bleeding scan. We will check orthostatic vitals and trend H&H. Continue on PPIs, continue to monitor vitals closely. Code Visit Inpatient E&M: 73015 Subs Hosp L3
[2018-12-01] MEDS: Acetaminophen 325 MG Tablet 650 MG PO (14:49)
[2018-12-01 18:53] LABS: Hematocrit 27.7 % (37-47); Hemoglobin 9.2 g/dl (12.0-15.0)
[2018-12-01] MEDS: Pravastatin 40 MG Tablet PO (21:23)
[2018-12-01] MEDS: traZODone 100 MG Tablet PO (21:23)
[2018-12-02] VITALS (17 sets, daily range): BP systolic 80–129; BP diastolic 31–73; PULSE 71–106; RESP 16–20; TEMP 36.6–37.4; O2SAT 97–100
--- NOTE | 2018-12-02 02:35 | NURSING ---
Verbal report received from Thomas Gallegos RN. This RN will resume care of patient at this time.
[2018-12-02 06:10] LABS: Hematocrit 24.5 % (37-47); Hemoglobin 8.3 g/dl (12.0-15.0); Mean Corp Hgb Conc 33.9 g/gl (32-36); Mean Corpuscular Volume 88.4 fL (81-99); Mean Platelet Vol. 9.8 fl (6.2-12.0); Platelet Count 112 K/mm3 (150-450); RBC Distribution Width CV 16.3 % (11.6-14.6); RBC Distribution Width SD 48.9 fl (35.1-43.9); Red Blood Count 2.77 M/mm3 (4.2-5.4); White Blood Count 10.6 K/mm3 (4.4-11.0)
[2018-12-02 06:11] LABS: Scan Indicated on CBC? Y/N NO
[2018-12-02 06:21] LABS: Anion Gap 8 (5-15); BUN 28 mg/dL (7-18); BUN/Creat Ratio 38.8 RATIO (10-20); Calcium,Total 7.5 mg/dL (8.5-10.1); Chloride 113 mmol/L (98-107); Creatinine, Serum 0.72 mg/dL (0.55-1.02); EST Glomerular Filtration Rate 84 mL/min (>60); Est Glom Filt Rate - Afr Amer 101 mL/min (>60); Estimated Creatinine Clearance 42.05 ml/min; Glucose 98 mg/dL (74-106); Magnesium 1.6 mg/dL (1.6-2.6); Sodium Level 137 mmol/L (136-145)
[2018-12-02] MEDS: Carbidopa/Levodopa 25/100 Tablet PO ×2 (06:33→17:21)
[2018-12-02] MEDS: 0.9% Normal Saline 1,000 ML 100 ML IV (08:31)
[2018-12-02] MEDS: Multivitamins,Therapeutic Tablet 1 TABLET PO (08:32)
[2018-12-02] MEDS: Oxybutynin 5 MG Tablet PO ×3 (08:32→17:21)
[2018-12-02] MEDS: Pantoprazole Sodium 40 MG Tablet PO ×2 (08:33→22:26)
[2018-12-02] MEDS: hydroCHLOROthiazide 12.5mg 12.5 MG PO (08:33)
[2018-12-02] MEDS: Citalopram 10 MG Tablet PO (08:34)
[2018-12-02] MEDS: Losartan Potassium 50 MG Tablet PO (08:34)
[2018-12-02] MEDS: Fluticasone 0.05% 1 SPRAY NASAL.SRY 2 SPRAY NASAL (08:34)
[2018-12-02] MEDS: Ferrous Sulfate 325 MG Tablet PO ×2 (08:35→17:21)
[2018-12-02] MEDS: Vitamin B Comp W-C Capsule 1 CAP PO (08:37)
--- NOTE | 2018-12-02 11:02 | PCM.PROGNOTE ---
<Brooks Arechiga - Last Filed: 12/02/18 11:02> Patient Problems: Active and Suspected Problems (Last Updated 11/29/18 @ 17:02 by Trevon Chacon DO) Upper gastrointestinal bleeding (Acute) Anemia (Acute) GI bleed (Acute) Acute blood loss anemia (Acute) Subjective: No BM since endoscopy. Pt has no SOB/LH/Dizziness/LE edema/Abd pain. She will receive a fifth unit of PRBC today. Hgb without significant improvement however subjectively the patient feels much better. Stone reported on CT with hydro however no flank pain, hematuria, abdominal pain. - Physical Exam General: Alert, Oriented x3, Cooperative HEENT: Atraumatic, PERRLA, EOMI, Normocephalic Neck: Supple, No JVD, Negative Carotid Bruits Lungs: Clear to auscultation, Normal air movement Cardiovascular: Regular rate, No murmurs Abdomen: Bowel Sounds Present, Soft, Non Tender Extremities: No edema, Capillary Refill Less than 3 Seconds Skin: No rashes, No breakdown Musculoskeletal: No Tenderness to Palpation of Joints or Extremities Neurological: Cranial nerves II-XII grossly intact Psych/Mental Status: Normal Affect, Appropriate, Alert and oriented to time, place, person, mood and affect Vital Signs Temp Pulse Resp BP Pulse Ox 97.9 F 98 18 104/39 L 97 12/02/18 10:40 12/02/18 10:40 12/02/18 10:40 12/02/18 10:40 12/02/18 10:40 Oxygen Delivery Method Room Air Weight: 120 lb 13.013 oz Body Mass Index (BMI) 20.1 Orthostatic Vital Signs Start: 12/02/18 02:26 Freq: QSHIFT Status: Active Protocol: Activity Type Activity Date Activity User E-Sign Co-Sign Detail Recorded Client Recorded Date Recorded By Document 12/02/18 04:47 EEA [id number] 12/02/18 04:55 EEA 12/02/18 04:47 Orthostatic Vitals Standing -Blood Pressure (90/60-120/80) 104/66 -Extremity Use Left Arm -Pulse Rate (60-100) 103 H Sitting -Blood Pressure (90/60-120/80) 129/73 H -Extremity Use Left Arm -Pulse Rate (60-100) 94 Lying -Blood Pressure (90/60-120/80) 122/60 H -Extremity Use Left Arm -Pulse Rate (60-100) 82 Intake and Output for Last 24 Hours 11/30/18 12/01/18 12/02/18 23:59 23:59 23:59 Intake Total 2252 / 7119 22980 / 44599 1487 / 1487 Output Total 1800 / 1800 Balance 2252 / 7119 9084 / 9084 1487 / 1487 Microbiology Past 72 Hours 11/29/18 14:35 Urine Culture - Final Urine, Clean Catch Klebsiella pneumoniae sp pneum 11/29/18 14:33 Stool Occult Blood (KYLE) - Final Stool Occult Blood Positive Laboratory Tests Past 24 Hrs 11/29/18 11/29/18 12/01/18 16:07 16:07 18:15 WBC RBC Hgb 9.2 L Hct 27.7 L MCV MCH MCHC RDW RDW Differential Plt Count MPV Sodium Potassium Chloride Carbon Dioxide Anion Gap BUN Creatinine Estim Creat Clear Calc Est GFR (MDRD) Af Amer Est GFR (MDRD) Non-Af BUN/Creatinine Ratio Glucose Calcium Magnesium Crossmatch See Detail See Detail 12/02/18 12/02/18 05:25 05:25 WBC 10.6 RBC 2.77 L Hgb 8.3 L Hct 24.5 L MCV 88.4 MCH 30.0 MCHC 33.9 RDW 16.3 H RDW Differential 48.9 H Plt Count 112 L MPV 9.8 Sodium 137 Potassium 4.0 Chloride 113 H Carbon Dioxide 16.0 L Anion Gap 8 BUN 28 H Creatinine 0.72 Estim Creat Clear Calc 42.05 Est GFR (MDRD) Af Amer 101 Est GFR (MDRD) Non-Af 84 BUN/Creatinine Ratio 38.8 H Glucose 98 Calcium 7.5 L Magnesium 1.6 Crossmatch Medical Necessity - Tobacco Use Smoking Status: Never smoker Assessment/Plan All Active Problems (Last Updated 11/29/18 @ 17:02 by Trevon Chacon DO) Upper gastrointestinal bleeding (Acute) Anemia (Acute) GI bleed (Acute) Acute blood loss anemia (Acute) 1. Acute blood loss anemia 2/2 GI bleed source unclear -EGD/Colon 10/[address] Pinto. Transfuse 5th units PRBC today. Old blood in large bowel. Bleed scan tomorrow. CT abd unremarkable for bleed source. + orthos. 2. Nonsustained Vtach - continue to replete mag, currently rate stable. 3. Ureteral stone - asymptomatic. DC iv fluids. 4. HTN - stable 5. HLD - statin. 6. Anx/depression - celexa, trazodone. 7. ? Parkinsons - on carbidopa/levodopa 8. Osteoarthritis - hold meloxicam. 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 9. Elevated BUN/Cr - suspect dehydration. improved. DVT ppx: SCDs DC planning: PTOT. May need transfer for bleeding. This patient was seen by rBooks Arechiga PA-C under the supervision of Doctor Mimi. <Ruthie Le - Last Filed: 12/02/18 16:26> - Physical Exam Vital Signs Temp Pulse Resp BP Pulse Ox 99.3 F H 81 18 106/41 L 97 12/02/18 15:30 12/02/18 15:30 12/02/18 15:30 12/02/18 15:30 12/02/18 15:30 Oxygen Delivery Method Room Air Weight: 54.8 kg Body Mass Index (BMI) 20.1 Orthostatic Vital Signs Start: 12/02/18 02:26 Freq: QSHIFT Status: Active Protocol: Activity Type Activity Date Activity User E-Sign Co-Sign Detail Recorded Client Recorded Date Recorded By Document 12/02/18 14:00 ADAMS [id number] 12/02/18 14:39 ADAMS 12/02/18 14:00 Orthostatic Vitals Standing -Blood Pressure (90/60-120/80) 80/47 L -Extremity Use Left Arm -Pulse Rate (60-100) 106 H Sitting -Blood Pressure (90/60-120/80) 91/59 L -Extremity Use Left Arm -Pulse Rate (60-100) 93 Lying -Blood Pressure (90/60-120/80) 92/58 L -Extremity Use Left Arm -Pulse Rate (60-100) 89 Intake and Output for Last 24 Hours 11/30/18 12/01/18 12/02/18 23:59 23:59 23:59 Intake Total 2252 / 7119 79775 / 80835 2194 / 2194 Output Total 1800 / 1800 Balance 225 / 19 9084 / 9084 2194 / 2194 Microbiology Past 72 Hours 06/27/19 14:35 Urine Culture - Final Urine, Clean Catch Klebsiella pneumoniae sp pneum 11/29/18 14:33 Stool Occult Blood (KYLE) - Final Stool Occult Blood Positive Laboratory Tests Past 24 Hrs 11/29/18 11/29/18 12/01/18 16:07 16:07 18:15 WBC RBC Hgb 9.2 L Hct 27.7 L MCV MCH MCHC RDW RDW Differential Plt Count MPV Sodium Potassium Chloride Carbon Dioxide Anion Gap BUN Creatinine Estim Creat Clear Calc Est GFR (MDRD) Af Amer Est GFR (MDRD) Non-Af BUN/Creatinine Ratio Glucose Calcium Magnesium Crossmatch See Detail See Detail 12/02/18 12/02/18 05:25 05:25 WBC 10.6 RBC 2.77 L Hgb 8.3 L Hct 24.5 L MCV 88.4 MCH 30.0 MCHC 33.9 RDW 16.3 H RDW Differential 48.9 H Plt Count 112 L MPV 9.8 Sodium 137 Potassium 4.0 Chloride 113 H Carbon Dioxide 16.0 L Anion Gap 8 BUN 28 H Creatinine 0.72 Estim Creat Clear Calc 42.05 Est GFR (MDRD) Af Amer 101 Est GFR (MDRD) Non-Af 84 BUN/Creatinine Ratio 38.8 H Glucose 98 Calcium 7.5 L Magnesium 1.6 Crossmatch Assessment/Plan This patient was seen in conjunction with STACEY Herrera. I have independently interviewed and examined the patient and reviewed pertinent historical, laboratory, and other data. Please refer to STACEY Herrera note for his patient's presentation, findings, and recommendations. I have reviewed and his note and concur with his documentation Patient was seen and examined. She denied any dizziness or palpitations or shortness of breath. She feels very well. No more fatigue. Had 1 unit of blood yesterday. She denied passing any hematochezia or melena stools. Physical Exam: Gen: Comfortable, pale, not jaundiced CVS:HS I +II, regular, no murmurs RESP: Diminished at lung bases, no crackles GI: BS present and normal, soft, nontender, no palpable organs EXT: Trace bilateral pedal edema ASSESSMENT: 1. Acute blood loss anemia positive orthostatic vitals, drop in hemoglobin 2. Acute GI bleed 3. Hypertension 4. Hyperlipidemia 5. Anxiety/depression Plan: Discussed with Dr. Pinto, will transfuse 1 unit of blood today, continue to monitor patient's H&H Bleeding scan in a.m. Possible transfer if patient continues to drop hemoglobin and becomes unstable Continue IV PPI Code Visit Inpatient E&M: 81495 Subs Hosp L2
[2018-12-02 16:41] LABS: Hematocrit 26.7 % (37-47); Hemoglobin 8.9 g/dl (12.0-15.0)
[2018-12-02] MEDS: Pravastatin 40 MG Tablet PO (22:26)
[2018-12-02] MEDS: traZODone 100 MG Tablet PO (22:26)
[2018-12-03] VITALS: PULSE 72
[2018-12-03 03:30] VITALS: BP 104/48; PULSE 75; RESP 14; TEMP 37.1; O2SAT 97
[2018-12-03 03:37] VITALS: PULSE 72
--- NOTE | 2018-12-03 05:55 | NM_ITS ---
CLINICAL: 73-year-old female with history of anemia and episodic hematochezia. LABELED BLOOD POOL GASTROINTESTINAL BLEEDING STUDY COMPARISON: CT of the abdomen-pelvis report 12/01/2018 FINDINGS: Following the intravenous administration of 28.4 mCi of 99m Tc Ultratag labeled RBCs, image acquisitions of the anterior-abdomen and pelvis for a total of 60 minutes reveal: 1. Static sequential 1 minute acquisitions of the anterior abdomen and pelvis demonstrate no evidence of abnormal increased radiopharmaceutical concentration indicative of acute gastrointestinal hemorrhage. 2. Physiologic distribution of the radiopharmaceutical is defined in the hepatic, splenic and major vascular blood pole. There is demonstration of the right-left kidneys. NM/GI Bleed Scan IMPRESSION: 1. NEGATIVE 99m Tc ULTRATAG LABELED BLOOD POOL GASTROINTESTINAL BLEEDING EXAMINATION. 2. There is no definitive scintigraphic evidence of acute gastrointestinal hemorrhage on the current evaluation. Electronically Signed: Sawyer Martinez DO at 9:53 EDT Tel , Service support ,
[2018-12-03 06:21] LABS: Anion Gap 5 (5-15); BUN 38 mg/dL (7-18); BUN/Creat Ratio 48.5 RATIO (10-20); Calcium,Total 7.4 mg/dL (8.5-10.1); Chloride 110 mmol/L (98-107); Creatinine, Serum 0.78 mg/dL (0.55-1.02); EST Glomerular Filtration Rate 76 mL/min (>60); Est Glom Filt Rate - Afr Amer 92 mL/min (>60); Estimated Creatinine Clearance 42.05 ml/min; Glucose 94 mg/dL (74-106); Magnesium 1.8 mg/dL (1.6-2.6); Potassium 3.6 mmol/L (3.5-5.1); Sodium Level 134 mmol/L (136-145)
[2018-12-03] MEDS: Carbidopa/Levodopa 25/100 Tablet PO (06:30)
[2018-12-03 07:05] LABS: Absolute Lymphocyte Count 0.75 X10^3/ul (0.83-4.51); Absolute Neutrophil Count 7.4 X10^3/uL (2.0-7.7); Basophil# 0.02 X10^3/uL; Basophil% 0.2 % (0-1); Eosinophil# 0.14 X10^3/uL; Eosinophils% 1.5 % (0-5); Hematocrit 21.3 % (37-47); Hemoglobin 7.1 g/dl (12.0-15.0); Lymphocyte # 0.75 X10^3/ul (4.0); Lymphocyte % 8.2 % (19-41); Mean Corp Hgb Conc 33.3 g/gl (32-36); Mean Corpuscular Hgb 30.2 pg (27.0-32.0); Mean Corpuscular Volume 90.6 fL (81-99); Mean Platelet Vol. 9.7 fl (6.2-12.0); Monocyte% 6.6 % (0-10); Platelet Count 105 K/mm3 (150-450); RBC Distribution Width CV 16.4 % (11.6-14.6); RBC Distribution Width SD 49.2 fl (35.1-43.9); Red Blood Count 2.35 M/mm3 (4.2-5.4); White Blood Count 9.1 K/mm3 (4.4-11.0)
[2018-12-03 07:15] VITALS: PULSE 75
[2018-12-03 07:20] LABS: POSITIVE COUNT YES; POSITIVE DIFFERENTIAL NO; POSITIVE MORPHOLOGY YES
[2018-12-03 09:44] LABS: Pathologist Review Reviewed
[2018-12-03 09:45] LABS: Pathologist Review Reviewed
--- NOTE | 2018-12-03 09:47 | NURSING ---
ARRIVES BACK TO PCU FROM NUCLEAR MED
[2018-12-03 10:06] VITALS: BP 94/54; PULSE 82; RESP 14; TEMP 36.3; O2SAT 100
--- NOTE | 2018-12-03 10:21 | DS.PCM_ITS ---
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 Hx parkinson HTN HLD Hx nephrolithiasis Hospital Course and Treatment Imaging Results: DIAGNOSTICS: 12/03/18 05:55 GI Bleed Scan [NM] AM (NON MEDS) NM/GI Bleed Scan IMPRESSION: 1. NEGATIVE 99m Tc ULTRATAG LABELED BLOOD POOL GASTROINTESTINAL BLEEDING EXAMINATION. 2. There is no definitive scintigraphic evidence of acute gastrointestinal hemorrhage on the current evaluation. RAD/Chest PA and Lateral IMPRESSION: No active intrathoracic disease. 2D Echo: Interpretation Summary Left ventricular systolic function is hyperdynamic. The estimated ejection fraction is 75 %. There is mild mitral annular calcification. Mild diffuse mitral valve thickening. Trivial mitral valve insufficiency. Mild tricuspid valve insufficiency. Stable appearing bioprosthetic aortic valve apparatus. Severe aortic stenosis. (By spectral Doppler criteria with an aortic valve maximal velocity of approximately 5.3 m/s; an aortic valve mean gradient of approximately 64 mmHg; and an aortic valve area of 0.9 cm??) Trivial transvalvular insufficiency of the aortic valve. Right ventricular systolic pressure estimated to be 35 mmHg. There is evidence of diastolic dysfunction. Comment: Late peaking spectral Doppler pattern in the mid LV cavity area approaching 3.0 m/s compatible with a peak gradient of 36 mmHg compatible with a hyperdynamic state. CT/Abdomen/Pelvis without Cont IMPRESSION: Study limited without contrast. 8 mm stone at the left ureteropelvic junction with mild left hydronephrosis. No bowel obstruction or inflammation. CONSULTS: General Surgery - Millie Operations: None Procedures: Colonoscopy, EGD Summary of Care Provided: Hospital course: The patient is a 73 year old F with a past medical history of aortic stenosis with a bovine aortic valve on baby aspirin daily as an outpatient, history of prior gastric bypass surgery, history of ureteral stones, hypertension, hyperlipidemia, anxiety and depression, questionable history of Parkinson's disease on outpatient Sinemet, arthritis, who presented to the emergency room with complaints of severe fatigue for the past several weeks, shortness of breath, lightheadedness, dizziness, who was found to have evidence of acute anemia with GI bleeding. In the emergency room her hemoglobin was 6.9, she had positive Hemoccult blood. She had reported black stools at home however this is chronic for her as she is on iron therapy. She was typed and crossed for 2 unit units of blood and admitted to the PCU on telemetry, with general surgery consulted. Initially her hemoglobin responded well to blood transfusions, and her symptoms resolved. The patient was taken for an echocardiogram as she has a known bovine valve with severe aortic stenosis - this was reported as stable with results noted above. However the following day her hemoglobin declined again. General surgery took her for an upper and lower endoscopy. On the upper endoscopy there was no acute bleed noted, her gastric pouch was small and without any acute issue, notably the pouch to jejunum limb was characterized by healthy-appearing mucosa. On colonoscopy no acute bleed was noted however there is black blood noted throughout the large dale, the colon (entire exam portion) appeared normal. Since platelets progressively declined initially 173, now 105. After receiving a total of 5 units of packed red blood cells over the days that she was here her hemoglobin did not improve. Notably yesterday her hemoglobin was 8.9 after receiving a unit of blood, and then this morning it was down to 7.1. A 6 unit of blood is ordered and pending for transfusion. This morning she went for a GI bleed scan which did not show was a source of bleeding. She continues to have orthostatic hypotension, she had an episode of nonsustained V. tach on the heart monitor, as is and her blood counts are not responding to hemoglobin transfusions, so it was felt that she would require transfer for work-up for small bowel bleed with need for evaluation and possible intervention by a geological technical officer which we do not have available here. The patient requested to be transferred to [facility], and she was accepted there by the hospitalist service. She was discharged in stable condition. This patient was seen by Brooks Arechiga PA-C under the supervision of Doctor Basia. [] Patient Problems: Active and Suspected Problems (Last Updated 11/29/18 @ 17:02 by Trevon Chacon DO) Upper gastrointestinal bleeding (Acute) Anemia (Acute) GI bleed (Acute) Acute blood loss anemia (Acute) - Physical Exam General: Alert, Oriented x3, Cooperative HEENT: Atraumatic, PERRLA, EOMI, Normocephalic Neck: Supple, No JVD, Negative Carotid Bruits Lungs: Clear to auscultation, Normal air movement Cardiovascular: Regular rate, Murmur Abdomen: Bowel Sounds Present, Soft, Non Tender Extremities: No edema, Capillary Refill Less than 3 Seconds Skin: No rashes, No breakdown Musculoskeletal: No Tenderness to Palpation of Joints or Extremities Neurological: Cranial nerves II-XII grossly intact Psych/Mental Status: Normal Affect, Appropriate, Alert and oriented to time, place, person, mood and affect Vital Signs Temp Pulse Resp BP Pulse Ox 97.4 F L 82 14 94/54 L 100 12/03/18 10:06 12/03/18 10:06 12/03/18 10:06 12/03/18 10:12/03/18 10:06 Oxygen Delivery Method Room Air Weight: 120 lb 13.013 oz Body Mass Index (BMI) 20.1 Orthostatic Vital Signs Start: 12/02/18 02:26 Freq: QSHIFT Status: Active Protocol: Activity Type Activity Date Activity User E-Sign Co-Sign Detail Recorded Client Recorded Date Recorded By Document 12/02/18 14:00 ADAMS [id number] 12/02/18 14:39 ADAMS 12/02/18 14:00 Orthostatic Vitals Standing -Blood Pressure (90/60-120/80) 80/47 L -Extremity Use Left Arm -Pulse Rate (60-100) 106 H Sitting -Blood Pressure (90/60-120/80) 91/59 L -Extremity Use Left Arm -Pulse Rate (60-100) 93 Lying -Blood Pressure (90/60-120/80) 92/58 L -Extremity Use Left Arm -Pulse Rate (60-100) 89 Intake and Output for Last 24 Hours 12/01/18 12/02/18 12/03/18 23:59 23:59 23:59 Intake Total 84271 / 37933 3059 / 3059 Output Total 1800 / 1800 300 / 300 200 / 200 Balance 9084 / 9084 2759 / 2759 -200 / -200 Microbiology Past 72 Hours 11/29/18 14:35 Urine Culture - Final Urine, Clean Catch Klebsiella pneumoniae sp pneum Laboratory Tests Past 24 Hrs 11/29/18 11/29/18 11/29/18 12:55 16:07 16:07 WBC RBC Hgb Hct MCV MCH MCHC RDW RDW Differential Plt Count MPV Immature Gran % (Auto) Neut % (Auto) Lymph % (Auto) [place] % (Auto) Eos % (Auto) Baso % (Auto) Absolute Neuts (auto) Absolute Lymphs (auto) Total Counted Diff Path Review Reviewed Sodium Potassium Chloride Carbon Dioxide Anion Gap BUN Creatinine Estim Creat Clear Calc Est GFR (MDRD) Af Amer Est GFR (MDRD) Non-Af BUN/Creatinine Ratio Glucose Calcium Magnesium Blood Type Antibody Screen Crossmatch See Detail See Detail 11/30/18 12/02/18 12/03/18 00:15 16:15 05:35 WBC 9.1 RBC 2.35 L Hgb 8.9 L 7.1 L Hct 26.7 L 21.3 L MCV 90.6 MCH 30.2 MCHC 33.3 RDW 16.4 H RDW Differential 49.2 H Plt Count 105 L MPV 9.7 Immature Gran % (Auto) 2.500 H Neut % (Auto) 81.0 H Lymph % (Auto) 8.2 L [place] % (Auto) 6.6 Eos % (Auto) 1.5 Baso % (Auto) 0.2 Absolute Neuts (auto) 7.4 Absolute Lymphs (auto) 0.75 L Total Counted Not Reportable Diff Path Review Reviewed October Sodium Potassium Chloride Carbon Dioxide Anion Gap BUN Creatinine Estim Creat Clear Calc Est GFR (MDRD) Af Amer Est GFR (MDRD) Non-Af BUN/Creatinine Ratio Glucose Calcium Magnesium Blood Type Antibody Screen Crossmatch 12/03/18 12/03/18 05:35 10:02 WBC RBC Hgb Hct MCV MCH MCHC RDW RDW Differential Plt Count MPV Immature Gran % (Auto) Neut % (Auto) Lymph % (Auto) [place] % (Auto) Eos % (Auto) Baso % (Auto) Absolute Neuts (auto) Absolute Lymphs (auto) Total Counted Diff Path Review Sodium 134 L Potassium 3.6 Chloride 110 H Carbon Dioxide 19.0 L Anion Gap 5 BUN 38 H Creatinine 0.78 Estim Creat Clear Calc 42.05 Est GFR (MDRD) Af Amer 92 Est GFR (MDRD) Non-Af 76 BUN/Creatinine Ratio 48.5 H Glucose 94 Calcium 7.4 L Magnesium 1.8 Blood Type Pending Antibody Screen Pending Crossmatch See Detail Discharge Diet: - - as directed by receiving facility Discharge Activity: - - as directed by receiving facility Home Medications: Medications to take at Discharge Aspirin [Aspir 81] 81 mg PO DAILY 11/29/18 Carbidopa/Levodopa [Carbidopa-Levodopa 25-100 Tab] 1 tab PO BID 11/29/18 Cholecalciferol (Vitamin D3) [Vitamin D3] 2,000 unit PO DAILY 11/29/18 Citalopram Hydrobromide [Citalopram HBr] 10 mg PO DAILY 11/29/18 Ferrous Sulfate 325 mg PO BID 11/29/18 Fluticasone 0.05% [Flonase Nasal [place]] 2 spray NASAL DAILY 11/29/18 Losartan/Hydrochlorothiazide [Losartan-Hctz 50-12.5 mg Tab] 1 tab PO DAILY 11/29/18 Meloxicam 15 mg PO DAILY 11/29/18 Multivitamin [Multiple Vitamins] 1 tab PO DAILY 11/29/18 Oxybutynin [Ditropan] 5 mg PO TID 11/29/18 Potassium Chloride [Klor-Con M20] 20 meq PO DAILY 11/29/18 Pravastatin [Pravachol] 40 mg PO QHS 11/29/18 Vitamin B Complex 1 cap PO DAILY 11/29/18 traZODone [Desyrel] 100 mg PO QHS 11/29/18 Primary Care Physician: Vianca Baca MD [Primary Care Provider] - Please follow up with your Primary Care Physician in: as directed by receiving facility Disposition: Acute care Hospital Minutes spent on discharge:: 35 Patient Condition:: Stable Medical Necessity - Tobacco Use Smoking Status: Never smoker Meaningful Use Info Meaningful Use Diagnoses (Choose all that apply): None applicable
[2018-12-03] MEDS: Ferrous Sulfate 325 MG Tablet PO (10:27)
[2018-12-03] MEDS: Multivitamins,Therapeutic Tablet 1 TABLET PO (10:28)
[2018-12-03] MEDS: Vitamin B Comp W-C Capsule 1 CAP PO (10:28)
[2018-12-03] MEDS: Oxybutynin 5 MG Tablet PO (10:28)
[2018-12-03] MEDS: Pantoprazole Sodium 40 MG Tablet PO (10:28)
[2018-12-03] MEDS: Citalopram 10 MG Tablet PO (10:28)
[2018-12-03] MEDS: Fluticasone 0.05% 1 SPRAY NASAL.SRY 2 SPRAY NASAL (10:29)
[2018-12-03 10:52] VITALS: BP 94/54; PULSE 82; RESP 14; TEMP 36.3; O2SAT 100
[2018-12-03 12:40] LABS: Pathologist Review Reviewed
[2018-12-03 12:45] LABS: Pathologist Review Reviewed
--- NOTE | 2018-12-03 16:49 | PCM.PN.SRG ---
Subjective: no complaints - Physical Exam General: Alert, Oriented x3 Lungs: Clear to auscultation, Normal air movement Cardiovascular: Regular rate, No murmurs Abdomen: Bowel Sounds Present, Soft Vital Signs Temp Pulse Resp BP Pulse Ox 97.4 F L 82 14 94/54 L 100 12/03/18 10:52 12/03/18 10:52 12/03/18 10:52 12/03/18 10:52 12/03/18 10:52 Oxygen Delivery Method Room Air Weight: 54.8 kg Body Mass Index (BMI) 20.1 Intake and Output for Last 24 Hours 12/01/18 12/02/18 12/03/18 23:59 23:59 23:59 Intake Total 95711 / 90459 3059 / 3059 Output Total 1800 / 1800 300 / 300 200 / 200 Balance 9084 / 9084 2759 / 2759 -200 / -200 Microbiology Past 72 Hours 11/29/18 14:35 Urine Culture - Final Urine, Clean Catch Klebsiella pneumoniae sp pneum Laboratory Tests Past 24 Hrs 11/29/18 11/30/18 11/30/18 12:55 00:15 06:23 WBC RBC Hgb Hct MCV MCH MCHC RDW RDW Differential Plt Count MPV Immature Gran % (Auto) Neut % (Auto) Lymph % (Auto) [place] % (Auto) Eos % (Auto) Baso % (Auto) Absolute Neuts (auto) Absolute Lymphs (auto) Total Counted Diff Path Review Reviewed Reviewed Reviewed Sodium Potassium Chloride Carbon Dioxide Anion Gap BUN Creatinine Estim Creat Clear Calc Est GFR (MDRD) Af Amer Est GFR (MDRD) Non-Af BUN/Creatinine Ratio Glucose Calcium Magnesium Blood Type Antibody Screen Crossmatch 12/01/18 12/03/18 12/03/18 04:33 05:35 05:35 WBC 9.1 RBC 2.35 L Hgb 7.1 L Hct 21.3 L MCV 90.6 MCH 30.2 MCHC 33.3 RDW 16.4 H RDW Differential 49.2 H Plt Count 105 L MPV 9.7 Immature Gran % (Auto) 2.500 H Neut % (Auto) 81.0 H Lymph % (Auto) 8.2 L [place] % (Auto) 6.6 Eos % (Auto) 1.5 Baso % (Auto) 0.2 Absolute Neuts (auto) 7.4 Absolute Lymphs (auto) 0.75 L Total Counted Not Reportable Diff Path Review Reviewed October foll Sodium 134 L Potassium 3.6 Chloride 110 H Carbon Dioxide 19.0 L Anion Gap 5 BUN 38 H Creatinine 0.78 Estim Creat Clear Calc 42.05 Est GFR (MDRD) Af Amer 92 Est GFR (MDRD) Non-Af 76 BUN/Creatinine Ratio 48.5 H Glucose 94 Calcium 7.4 L Magnesium 1.8 Blood Type Antibody Screen Crossmatch 12/03/18 10:02 WBC RBC Hgb Hct MCV MCH MCHC RDW RDW Differential Plt Count MPV Immature Gran % (Auto) Neut % (Auto) Lymph % (Auto) [place] % (Auto) Eos % (Auto) Baso % (Auto) Absolute Neuts (auto) Absolute Lymphs (auto) Total Counted Diff Path Review Sodium Potassium Chloride Carbon Dioxide Anion Gap BUN Creatinine Estim Creat Clear Calc Est GFR (MDRD) Af Amer Est GFR (MDRD) Non-Af BUN/Creatinine Ratio Glucose Calcium Magnesium Blood Type AB NEGATIVE Antibody Screen NEGATIVE Crossmatch See Detail Medical Necessity - Tobacco Use Smoking Status: Never smoker Assessment/Plan All Active Problems (Last Updated 11/29/18 @ 17:02 by Trevon Chacon DO) Upper gastrointestinal bleeding (Acute) Anemia (Acute) GI bleed (Acute) Acute blood loss anemia (Acute) fatigue, anemia, heme positive stools, NSAID use, history of aortic valve replacement, loud murmur the patient hemoglobindecreased again overnight. Bleeding scan was obtained today which demonstrated no bleeding source. Patient with significant aortic murmur with history of aortic valve replacement. Echocardiogram demonstrated severe aortic stenosis but good cardiac output and wall motion. Upper and lower endoscopy was performed. 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 Colonoscopy demonstrated older blood to cecum. Bleeding source likely small bowel or gastric remnant. Will transfuse 1 additional unit PRBC. Obtain CT scan to assess if gastric remnant is distended, suggesting gastric remnant bleed. If recurrent bleeding - would obtain bleeding scan. at this point the patient will be transferred to tertiary care center for possible push or double balloon enteroscopy to assess small bowel and possibly backwards up the afebrile and loop of her gastric bypass.
[2018-12-05 10:00] LABS: Pathologist Review Reviewed
--- NOTE | 2018-12-05 10:44 | OP.ENDO_ITS ---
12/05/2018 Vianca Baca [address] [id number] Re : Colonoscopy procedure for Maia [place] Dear Dr. Baca This procedure was performed on Saturday, December 01, 2018. My impressions and recommendations are as follows: Impressions : - Preparation of the colon was fair. - Blood in the cecum. - The entire examined colon is normal. - The distal rectum and anal verge are normal on retroflexion view. - No specimens collected. Recommendations : - Return patient to [facility] for ongoing care. - No repeat colonoscopy. - Continue present medications. My findings are described in the full procedure note, which is enclosed. If I can be of further assistance, please feel free to contact me at Doctor phone number(s): , Work: . Sincerely, Sawyre Pinto MD 12/01/2018 7:43:52 AM This report has been signed electronically.
--- NOTE | 2018-12-05 10:44 | OP.ENDO_ITS ---
12/05/2018 Vianca Baca [address] [id number] Re : Upper GI endoscopy procedure for [place] Dear Dr. Baca This procedure was performed on Saturday, December 01, 2018. My impressions and recommendations are as follows: Impressions : - Gastric bypass with a small-sized pouch and intact staple line. Gastrojejunal anastomosis characterized by healthy appearing mucosa. - Normal stomach. - Normal esophagus. - No specimens collected. Recommendations : - Return patient to [facility] for [facility] care. - Continue present medications. My findings are described in the full procedure note, which is enclosed. If I can be of further assistance, please feel free to contact me at Doctor phone number(s): , Work: . Sincerely, Sawyer Pinto MD 12/01/2018 7:41:38 AM This report has been signed electronically.
== END 2018-12-03 11:56 | disposition short-term general hospital (02) | DRG 378 ==
LOC: ED 15:45 → PCU 15:59
PROVIDERS: Hospitalist; Internal Medicine; Physician Assistant; Surgery; Emergency Provider Emergency Medicine; Family Provider Internal Medicine; PCP Internal Medicine; Visit Provider Internal Medicine
PROC: 0DJD8ZZ Inspection of Lower Intestinal Tract, Via Natural or Artificial Opening Endoscopic (ICD-10-PCS; CPT 45378; principal; 2018-12-01 06:55)
DX: K92.2 Gastrointestinal hemorrhage, unspecified (principal); D62 Acute posthemorrhagic anemia; I47.2 Ventricular tachycardia; M19.90 Unspecified osteoarthritis, unspecified site; E78.5 Hyperlipidemia, unspecified; I10 Essential (primary) hypertension; Z95.3 Presence of xenogenic heart valve; I35.0 Nonrheumatic aortic (valve) stenosis; D69.59 Other secondary thrombocytopenia; E87.6 Hypokalemia; E83.42 Hypomagnesemia; Z79.82 Long term (current) use of aspirin; Z87.442 Personal history of urinary calculi; Z98.84 Bariatric surgery status; R82.71 Bacteriuria
CPT/HCPCS: 36415; 71046; 74176; 78278; 80048; 80053; 81001; 82274; 83735; 84484; 85014; 85018; 85025; 85027; 85610; 86850; 86900; 86920; 86922; 87077; 87086; 87088; 87186; 93005; 93306; 97802; 99285; A9560; J7030; J7040; P9016; A4216

== ENCOUNTER 2019-03-01 09:51 | Inpatient (IN) | payer MEDICARE, OTHER, MEDICAID, SELFPAY ==
[2018-11-29 16:44] VITALS: BMI 20.1
[2019-03-01] VITALS (8 sets, daily range): BP systolic 103–141; BP diastolic 40–61; PULSE 67–80; RESP 16–18; TEMP 36.6–36.9; O2SAT 96–100; BMI 21.2
--- NOTE | 2019-03-01 10:05 | CT_ITS ---
STUDY: CT BRAIN WITHOUT CONTRAST REASON FOR EXAM: Female, 73 years old. Confusion, weakness, altered mental status RADIATION DOSAGE (If Supplied By Facility): CTDIvol = ( 44.99 ) mGy, DLP = ( 745.49 ) mGycm TECHNIQUE: Transaxial CT imaging of the brain was performed without administration of intravenous contrast material. Individualized dose optimization techniques were used for this CT. COMPARISON: No relevant priors. FINDINGS: Normal soft tissue structures. Normal calvarium. Normal size ventricles and extra-axial spaces for the patient's age. Normal white matter tracts of the cerebral hemispheres. Normal basal ganglia and thalami. Normal brainstem. Normal cerebellum. There is no intracranial hemorrhage. There are no findings of an acute ischemic infarction. Normal visualized paranasal sinuses. CT/Brain/Head without Contrast IMPRESSION: Normal unenhanced CT scan of the brain. Electronically Signed: Sawyer Kapadia MD at 11:42 EDT Tel , Service support ,
--- NOTE | 2019-03-01 10:05 | EKG12_ITS ---
Test Reason : WEAKNESS Blood Pressure : / mmHG Vent. Rate : 073 BPM Atrial Rate : 073 BPM P-R Int : 214 ms QRS Dur : 108 ms QT Int : 420 ms P-R-T Axes : 083 -20 062 degrees QTc Int : 462 ms Sinus rhythm with 1st degree A-V block Incomplete left bundle branch block Moderate voltage criteria for LVH, may be normal variant , cannot be excluded Borderline ECG Confirmed by PEG MORENO, CRISSY ([id number]), editor news YUE CAMPO ([id number]) on 03/04/2019 3:16:01 PM Referred By: Ashley Andrade Confirmed By:CRISSY RUVALCABA MD
--- NOTE | 2019-03-01 10:17 | ED.DCSUM_ITS ---
History of Present Illness Chief Complaint: Weakness Informant: Patient Onset: Days Narrative: Presents to the ED with generalized weakness. She states that this is been a progressing issue. Several months ago, she was admitted to this facility for potential upper GI bleed. She had a bleeding scan and colonoscopy at this facility. She states that she was admitted to [facility] also for this. She states that her stool has been black since onset of the symptoms and had never resolved. She does admit that she is taking iron supplementation twice a day. Recently, her stool became smelly again. She states that last night, she was so weak that she felt she could not walk to her bedroom to go to sleep so she slept on the ground. She denies any falls. Her daughter states that her mom seems confused today. Denies any one-sided weakness or paresthesias. No chest pain, shortness of breath, or abdominal pain. Past Medical History - Allergies and Home Meds Allergies/Adverse Reactions: Allergies amoxicillin Allergy (Verified 03/01/19 09:52) Itching Penicillins Allergy (Verified 03/01/19 09:52) Itching Primary Care Physician: Vianca Baca MD [Primary Care Provider] - Surgical History: gastric bypass, hysterectomy, total knee arthroplasty Smoking Status: Never smoker - Family History Maternal Family History: Reports: No pertinent history Paternal Family History: Reports: No pertinent history Review of Systems General: Denies: Chills, Fever, Sweats Eyes: Denies: Visual changes - bilaterally, Diplopia ENT: Denies: Rhinorrhea, Sore throat Cardiovascular: Denies: Chest pain, Palpitations Respiratory: Denies: Dyspnea, Cough, Dyspnea on exertion Gastrointestinal: Denies: Abdominal pain, Nausea, Vomiting, Diarrhea, Melena, Hematochezia Genitourinary: Denies: Dysuria, Hematuria, Frequency Musculoskeletal: Denies: Back pain, Extremity Pain Skin: Denies: Rash, Wounds Neurological: Reports: Weakness, - - Confusion. Denies: Headache, Numbness Physical Exam Vital Signs/Narrative: Vital Signs Temp Pulse Resp BP Pulse Ox 03/01/19 09:53 97.9 F 76 17 141/52 H 100 General: Well nourished, Well developed, No Acute Distress Head: Normocephalic, Atraumatic Eyes: Perrl, EOMI ENT: Moist mucous membranes, No rhinorrhea Neck: Supple, Nontender Cardiovascular: Regular rate, Regular rhythm, No murmurs Respiratory: No distress, CTA bilaterally, Chest nontender Abdomen: Soft, Nontender, Nondistended, Normal bowel sounds Back: Nontender, Normal Inspection Extremities: Nontender, No edema Skin: Normal color, No rash Neurological: Alert, Oriented x3, Cranial nerves II-XII grossly intact, Normal Strength, Normal Sensation Psychological: Normal affect, Normal Mood Diagnostic/Tx/Re-eval - EKG Initial EKG Interpretation: Sinus Rhythm, No Acute Injury Pattern, LBBB - Incomplete, AV Block - 1st degree - Medical Decision Making Patient presents to the ED with generalized weakness for the last several days. She reports black tarry stools that have is foul-smelling. She does have a history of GI bleed several months ago which required surgical intervention at [facility]. She has a history of GI bleed due to gastric bypass complication. Today, hemoglobin is 8.7. Last hemoglobin was around 9.1. Rest of the patient's laboratory studies are unremarkable. Given that the patient's daughter was reporting some concern for confusion, CT brain was conducted which shows no acute abnormalities. Urinalysis is nitrite positive and concerning for urinary tract infection. Urine culture was sent. Patient was given a gram of Rocephin here. Given patient's recent intervention for GI bleed at [facility], we do feel patient warrants transfer back to their facility for further management. Patient and her family were agreeable to this plan. Patient's case was discussed with Dr. Schreiber at [facility] who was accepting of the patient to their service. Impression: Upper GI Bleed. Urinary tract infection. Weakness. Disposition: Transfer to [facility] ED Disposition - Plan for ED Patient: Referrals: Vianca Baca MD [Primary Care Provider] -
[2019-03-01 10:46] LABS: Basophil# 0.03 X10^3/uL; Basophil% 0.3 % (0-1); Eosinophil# 0.02 X10^3/uL; Eosinophils% 0.2 % (0-5); Hematocrit 27.5 % (37-47); Hemoglobin 8.7 g/dL (12.0-15.0); Lymphocyte % 8.6 % (19-41); Mean Corp Hgb Conc 31.6 g/dL (32-36); Mean Corpuscular Hgb 30.2 pg (27.0-32.0); Mean Corpuscular Volume 95.5 fL (81-99); Mean Platelet Vol. 10.2 fl (6.2-12.0); Monocyte% 4.8 % (0-10); NRBC Flagged by Analyzer 0 % (0-5); Neutrophil # 8.95 X10^3/uL (2.7-7.7); Neutrophil % 85.1 % (47-70); Platelet Count 175 K/mm3 (150-450); RBC Distribution Width CV 14.1 % (11.6-14.6); RBC Distribution Width SD 49.5 fl (35.1-43.9); Red Blood Count 2.88 M/mm3 (4.2-5.4); White Blood Count 10.5 K/mm3 (4.4-11.0)
[2019-03-01 11:01] LABS: ALB/GLOB Ratio 0.8 RATIO (0.9-2.4); AST(SGOT) 26 U/L (15-37); Alanine Aminotransfer ALT/SGPT 9 U/L (13-56); Albumin, Serum 2.8 g/dL (3.2-5.0); Alkaline Phosphatase 100 U/L (45-117); Anion Gap 6 (5-15); BUN 29 mg/dL (7-18); BUN/Creat Ratio 22.3 RATIO (10-20); Calcium,Total 8.5 mg/dL (8.5-10.1); Chloride 107 mmol/L (98-107); EST Glomerular Filtration Rate 42 mL/min (>60); Est Glom Filt Rate - Afr Amer 51 mL/min (>60); Estimated Creatinine Clearance 32.13 ml/min; Globulin 3.6 g/dL (2.2-4.2); Glucose 86 mg/dL (74-106); Potassium 4.4 mmol/L (3.5-5.1); Protein, Total 6.4 g/dL (6.4-8.2); Sodium Level 133 mmol/L (136-145)
[2019-03-01 12:08] LABS: Mucous, Urine 0 SEEN /hpf (<or=2+); Squamous Epithelial Cells - UA 0 SEEN /hpf (5-10)
[2019-03-01 12:13] LABS: Color, Urine Yellow (Yellow); Glucose, Dipstick Normal (Normal); Ketone-Dipstick 5 mg/dl (Negative); Leukocyte Esterase-Dipstick 100 /ul (Negative); Nitrite-Dipstick Positive (Negative); Occult Blood-Urine 10 /ul (Negative); Protein-Dipstick 15 mg/dl (Negative); Specific Gravity, Urine 1.015 (1.002-1.030); Urine Bilirubin Dipstick Negative (Negative); Urine Clarity Sl. Cloudy (Clear); Urine Urobilinogen Normal (Normal)
[2019-03-01 12:28] LABS: Bacteria 4+ /hpf (None Seen); Red Blood Cells-Urine 0-5 SEEN /hpf (0-5); White Blood Cells 5-10 SEEN /hpf (0-5)
--- NOTE | 2019-03-01 12:31 | NURSING ---
CALLED [facility]. TALKED TO CARMELO ABOUT TRANSFER. [facility] WAITING DAYS FOR BED ASSIGNMENT
[2019-03-01] MEDS: Ceftriaxone 1 GM/50 ML BAG IV (13:49)
--- NOTE | 2019-03-01 14:59 | NURSING ---
CALLED [facility] MAIN. TALKED TO NATANAEL, NO BED TODAY
--- NOTE | 2019-03-01 15:21 | NURSING ---
CALLED [facility], TALKED TO GARY. SHE TOOK MAIN NUMBER AND FLOOR. SHE IS UPDATING HER CHART, BUT PATIENT WILL STILL BE TRANSFERRED
--- NOTE | 2019-03-01 15:23 | NURSING ---
[address] GI BLEED
--- NOTE | 2019-03-01 15:31 | HP.PCM_ITS ---
History of Present Illness Date of Admission: 03/01/19 Chief Complaint: melena stools The patient is a 73 year old F with an extensive past medical history as above. She was recently diagnosed with peptic ulcer disease at [facility] in December 2018 via a laparoscopic transgastric endoscopy with clipping. She had presented with [address] [place] [address] with melena stools and ended up being transferred to [facility] after an EGD and colonoscopy done here were negative. She presents today with a complaint of dark stools considering going on for a few days. States symptoms were similar to when she presented with when she came in in December. She therefore decided to come into the ED. She had assisted weakness and fatigue. She denied any chest pain, lightheadedness, shortness of breath or dizziness. Review of systems otherwise negative. The ED try to transfer to [facility] as she had her procedure the in December 2018. They accepted the patient but do not have a bed currently and so she has been admitted until bed is obtained at [facility]. Vitals in the ED were essentially stable. Labs showed hemoglobin of 8.7 and chemistry showed sodium of 133 with creatinine of 1.3. Brain CT done was unremarkable. [] Past Medical History Medical History: Medical History (Last Updated 11/29/18 @ 17:02 by Trevon Chacon DO) Depression F32.9 Hyperlipidemia E78.5 Iron deficiency anemia D50.9 Osteoarthritis M19.90 Parkinson disease G20 HTN (hypertension) I10 Allergies amoxicillin Allergy (Verified 03/01/19 09:52) Itching Penicillins Allergy (Verified 03/01/19 09:52) Itching Home Medications: Ambulatory Orders Medication Instructions Recorded Carbidopa/Levodopa 1 tab PO BID 11/29/18 [Carbidopa-Levodopa 25-100 Tab] Cholecalciferol (Vitamin D3) 2,000 unit PO DAILY 11/29/18 [Vitamin D3] Citalopram Hydrobromide 10 mg PO DAILY 11/29/18 [Citalopram HBr] Ferrous Sulfate 325 mg PO BID 11/29/18 Losartan/Hydrochlorothiazide 1 tab PO DAILY 11/29/18 [Losartan-Hctz 50-12.5 mg Tab] Multivitamin [Multiple Vitamins] 1 tab PO DAILY 11/29/18 Oxybutynin [Ditropan] 5 mg PO TID 11/29/18 Potassium Chloride [Klor-Con M20] 20 meq PO DAILY 11/29/18 Pravastatin [Pravachol] 40 mg PO QHS 11/29/18 Vitamin B Complex 1 cap PO DAILY 11/29/18 traZODone [Desyrel] 100 mg PO QHS 11/29/18 Acetaminophen [Tylenol Extra 1,000 mg PO BID 03/01/19 Strength] Surgical History: gastric bypass, hysterectomy, total knee arthroplasty Psychiatric History: No pertinent psych hx [employer] History: No pertinent [employer] history Lives: Alone Smoking Status: Never smoker Alcohol: None Drugs: None - *Family History Maternal History Items: No pertinent history Paternal History Items: No pertinent history Review of Systems Constitutional: Reports: Malaise, Weakness, Fatigue. Denies: Chills, Fever, Weight Change Eyes: Denies: Blurred vision HEENT: Denies: Head Aches, Sinus Congestion, Sinus Drainage Cardiovascular: Denies: Chest Pain, Palpitations Respiratory: Denies: Cough, Shortness of Breath, Shortness of breath at rest, Sputum production Gastrointestinal: Denies: Abdominal Pain, Nausea, Vomiting Musculoskeletal: Denies: Joint Pain, Joint Tenderness Skin: Denies: Rash, Wounds Neurological: Denies: Numbness, Tingling, Focal weakness Psychiatric: Denies: Anxiety, Depression, Homicidal Ideations, Suicidal Ideations Hematologic/ Lymphatic: Denies: Easy Bruising, Easy Bleeding VTE Information - Inpt Only VTE Present on Admission: No VTE Mechan Device Prophylaxis: SCD's, None - Physical Exam General: Alert, Oriented x3, Cooperative, No apparent distress HEENT: Atraumatic, PERRLA, EOMI, Normocephalic Oral: Dry Mucosa Neck: Supple, No JVD, Negative Carotid Bruits Lungs: Clear to auscultation, Normal air movement Cardiovascular: Regular rate, Regular Rhythm, Normal S1, Normal S2, No murmurs Abdomen: Bowel Sounds Present, Soft, Non Tender, Non-Distended, No Hepato- splenomegaly Extremities: No clubbing, No cyanosis, No edema, Capillary Refill Less than 3 Seconds Skin: No rashes, No breakdown Musculoskeletal: No Tenderness to Palpation of Joints or Extremities Lymphatic: No Cervical, Supraclavicular, or Inguinal Adenopathy Neurological: Cranial nerves II-XII grossly intact, Neuro grossly intact, Motor Exam 5/5 strength throughout Psych/Mental Status: Normal Affect, Appropriate, Alert and oriented to time, place, person, mood and affect Vital Signs Temp Pulse Resp BP Pulse Ox 97.9 F 71 17 125/61 H 96 03/01/19 09:53 03/01/19 12:33 03/01/19 12:33 03/01/19 12:33 03/01/19 12:33 Oxygen Delivery Method Room Air Weight: 120 lb Body Mass Index (BMI) 20.0 Intake and Output for Last 24 Hours 02/27/19 02/28/19 03/01/19 23:59 23:59 23:59 Intake Total 110 / 110 Balance 110 / 110 Microbiology Past 72 Hours 03/01/19 10:55 Stool Occult Blood (KYLE) - Final Stool Occult Blood Positive Laboratory Tests Past 24 Hrs 03/01/19 03/01/19 03/01/19 10:40 10:40 12:05 WBC 10.5 RBC 2.88 L Hgb 8.7 L Hct 27.5 L MCV 95.5 MCH 30.2 MCHC 31.6 L RDW Std Deviation 49.5 H RDW Coeff of Erma 14.1 Plt Count 175 MPV 10.2 Immature Gran % (Auto) 1.000 H Neut % (Auto) 85.1 H Lymph % (Auto) 8.6 L Johnson % (Auto) 4.8 Eos % (Auto) 0.2 Baso % (Auto) 0.3 Absolute Neuts (auto) 9.0 H Absolute Lymphs (auto) 0.90 Nucleated RBC % 0 Sodium 133 L Potassium 4.4 Chloride 107 Carbon Dioxide 20.0 L Anion Gap 6 BUN 29 H Creatinine 1.30 H Estim Creat Clear Calc 32.13 Est GFR (MDRD) Af Amer 51 L Est GFR (MDRD) Non-Af 42 L BUN/Creatinine Ratio 22.3 H Glucose 86 Calcium 8.5 Total Bilirubin 0.60 AST 26 ALT 9 L Alkaline Phosphatase 100 Troponin I 0.018 Total Protein 6.4 Albumin 2.8 L Globulin 3.6 Albumin/Globulin Ratio 0.8 L Urine Color Yellow Urine Clarity Sl. Cloudy Urine pH 5.0 Ur Specific [place] 1.015 Urine Protein 15 H Urine Glucose (UA) Normal Urine Ketones 5 H Urine Occult Blood 10 H Urine Nitrite Positive H Urine Bilirubin Negative Urine Urobilinogen Normal Ur Leukocyte Esterase 100 H Urine RBC 0-5 SEEN Urine WBC 5-10 SEEN Ur Squamous Epith Cells 0 SEEN Urine Bacteria 4+ Urine Mucus 0 SEEN Assessment/Plan All Active Problems (Last Updated 11/29/18 @ 17:02 by Trevon Chacon DO) Upper gastrointestinal bleeding (Acute) Anemia (Acute) GI bleed (Acute) Acute blood loss anemia (Acute) 73-year-old female admitted with complaint of melena stools. 1. UGI bleed due to peptid ulcer disease * admit to PCU * had transgastric laparoscopic endoscopy which revealed peptic ulcer disease in December 2018. This was done at [place]. * Hemoglobin on admission is 8.7 the baseline of 9.5 from when she was discharged from [place] * Continue iron supplements. Hydrate with IV fluid normal saline. * Keep on clear liquids for now. * Patient has been accepted at the [facility] but they do not have a bed currently the plan is to keep patient overnight until she is able to be transferred to the [facility] tomorrow. * 2. Acute on chronic anemia, due to UGI bleed * Hb is 8.7, was 9.5 on discharge from [facility]. * Will monitor. Levels below 7, will transfuse. * continue iron supplements * * 3. Elevated Cr: Cr is 1.3; baseline is ~ 1. Hydrate with IVF and monitor 4. History of aortic valve replacement: Had a bovine aortic valve replacement some years ago. Not on blood thinner. 5. Hypertension: On losartan hydrochlorthiazide. 6. Parkinson's disease: On levodopa carbidopa. 7. Hyperlipidemia: On statin DVT prophylaxis: SCDs. Code Visit Inpatient E&M: 78036 Init Hosp L3
[2019-03-01] MEDS: 0.9% Normal Saline 1,000 ML 100 ML IV (16:49)
[2019-03-01] MEDS: Ferrous Sulfate 325 MG Tablet PO (16:49)
[2019-03-01] MEDS: 0.9% NaCl Peripheral Flush Adult/Peds IV (16:49)
[2019-03-01 17:00] LABS: Bedside Glucose 75 mg/dL (70-110)
[2019-03-01] MEDS: Carbidopa/Levodopa 25/100 Tablet PO (21:45)
[2019-03-02] MEDS: 0.9% Normal Saline 1,000 ML 100 ML IV (03:08)
[2019-03-02 03:19] VITALS: BP 108/43; PULSE 65; RESP 18; TEMP 36.7; O2SAT 99
--- NOTE | 2019-03-02 07:32 | PN_ITS ---
Subjective: follow-up GI bleed Patient is a 73-year-old lady with known peptic ulcer disease diagnosed in December 2018 at [facility] presented with melenic stools. An assessment of acute on chronic anemia secondary to acute blood loss possibly from recurrent peptic ulcer disease was made started on Protonix admitted to regular nursing floor call was placed to [facility] to have patient transferred. Patient has been accepted for transfer currently awaiting bed assignment Objective: GENERAL: cooperative HEENT: Atraumatic; EYES; Anicteric, pallor of Conjunctiva NECK; supple, normal thyroid, RESPIRATORY: Diminished to auscultation CARDIOVASCULAR: Regular S1 S2, GI: soft, non-tender, normoactive bowel sounds, : No Renal angle tenderness; EXTREMITIES: No edema, no clubbing, MUSCULOSKELETAL: No Joint Tenderness; NEURO: Awake; no lateralizing signs. SKIN: No Rash PSYCH; Normal affect Vitals/I&O's: Vital Signs Temp Pulse Resp BP Pulse Ox 98.1 F 65 18 108/43 L 99 03/02/19 03:03/02/19 03:03/02/19 03:03/02/19 03:03/02/19 03:19 Oxygen Delivery Method Room Air Weight: 57.788 kg Body Mass Index (BMI) 21.2 Intake and Output for Last 24 Hours 02/28/19 03/01/19 03/02/19 23:59 23:59 23:59 Intake Total 763.33 / 783.33 525 / 525 Balance 763.33 / 783.33 525 / 525 Microbiology Past 72 Hours 03/01/19 10:55 Stool Stool Occult Blood (KYLE) - Final Occult Blood Positive Laboratory Results 03/01/19 10:40: WBC 10.5, RBC 2.88 L, Hgb 8.7 L, Hct 27.5 L, MCV 95.5, MCH 30.2, MCHC 31.6 L, RDW Std Deviation 49.5 H, RDW Coeff of Erma 14.1, Plt Count 175, MPV 10.2, Immature Gran % (Auto) 1.000 H, Neut % (Auto) 85.1 H, Lymph % (Auto) 8.6 L , Randolph % (Auto) 4.8, Eos % (Auto) 0.2, Baso % (Auto) 0.3, Absolute Neuts (auto) 9.0 H, Absolute Lymphs (auto) 0.90, Nucleated RBC % 0 03/01/19 10:40: Sodium 133 L, Potassium 4.4, Chloride 107, Carbon Dioxide 20.0 L , Anion Gap 6, BUN 29 H, Creatinine 1.30 H, Estim Creat Clear Calc 32.13, Est GFR (MDRD) Af Amer 51 L, Est GFR (MDRD) Non-Af 42 L, BUN/Creatinine Ratio 22.3 H , Glucose 86, Calcium 8.5, Total Bilirubin 0.60, AST 26, ALT 9 L, Alkaline Phosphatase 100, Troponin I 0.018, Total Protein 6.4, Albumin 2.8 L, Globulin 3.6, Albumin/Globulin Ratio 0.8 L 03/01/19 12:05: Urine Color Yellow, Urine Clarity Sl. Cloudy, Urine pH 5.0, Ur Specific [place] 1.015, Urine Protein 15 H, Urine Glucose (UA) Normal, Urine Ketones 5 H, Urine Occult Blood 10 H, Urine Nitrite Positive H, Urine Bilirubin Negative, Urine Urobilinogen Normal, Ur Leukocyte Esterase 100 H, Urine RBC 0-5 SEEN, Urine WBC 5-10 SEEN, Ur Squamous Epith Cells 0 SEEN, Urine Bacteria 4+, Urine Mucus 0 SEEN 03/01/19 16:33: POC Glucose 75 03/02/19 07:00: WBC Pending, RBC Pending, Hgb Pending, Hct Pending, MCV Pending, MCH Pending, MCHC Pending, RDW Std Deviation Pending, RDW Coeff of Erma Pending, Plt Count Pending, Neut % (Auto) Pending, Absolute Neuts (auto) Pending 03/02/19 07:00: Sodium Pending, Potassium Pending, Chloride Pending, Carbon Dioxide Pending, Anion Gap Pending, BUN Pending, Creatinine Pending, Est GFR (MDRD) Af Amer Pending, Est GFR (MDRD) Non-Af Pending, BUN/Creatinine Ratio Pending, Glucose Pending, Calcium Pending Current Medications Carbidopa/Levodopa (Sinemet) 1 tablet PO BID [facility] Last Admin: 03/01/19 21:45 Dose: 1 tablet Documented by: Citalopram Hydrobromide (Celexa) 10 mg PO DAILY [facility] Dextrose (D50w Syringe) 0 gm IV X1 PRN; Protocol PRN Reason: Hypoglycemia Ferrous Sulfate (Ferrous Sulfate) 325 mg PO DAILYCM NATALIO Fluticasone Propionate (Flonase Nasal [place]) 2 spray NASAL DAILY NATALIO Glucagon () 1 mg IM .X1 PRN PRN Reason: Hypoglycemia Sodium Chloride () 1,000 mls @ 100 mls/hr IV .Q10H NATALIO Stop: 03/02/19 11:53 Last Admin: 03/02/19 03:08 Dose: 100 mls/hr Documented by: Pantoprazole Sodium 40 mg/ (Sodium Chloride) 110 mls @ 330 mls/hr IV Q12 NATALIO Last Infusion: 03/01/19 22:05 Dose: Infused Documented by: Losartan Potassium (Cozaar) 50 mg PO DAILY NATALIO Sodium Chloride () 10 - 40 ml IV UD PRN PRN Reason: SALINE FLUSH Last Admin: 03/01/19 16:49 Dose: 10 ml Documented by: Medical Necessity - Tobacco Use Smoking Status: Never smoker Assessment/Plan All Active Problems (Last Updated 11/29/18 @ 17:02 by Trevon Chacon DO) Upper gastrointestinal bleeding (Acute) Anemia (Acute) GI bleed (Acute) Acute blood loss anemia (Acute) Patient is a 73-year-old lady with known peptic ulcer disease diagnosed in December 2018 at [facility] presented with melenic stools. An assessment of acute on chronic anemia secondary to acute blood loss possibly from recurrent peptic ulcer disease was made started on Protonix admitted to regular nursing floor call was placed to [facility] to have patient transferred. Patient has been accepted for transfer currently awaiting bed assignment 1. Upper GI bleed ~Secondary to suspected peptic ulcer disease. Patient apparently underwent a transgastric laparoscopic endoscopy in December 2018 which did reveal peptic ulcer disease. Patient hemoglobin on admission was 8.7 has subsequently dropped to 7.7, Plan is for patient to be transferred to [facility] once bed becomes available 2. Anemia ~secondary to acute on chronic anemia from blood loss. Monitoring H&H with plans to transfuse if patient becomes symptomatic or hemoglobin falls below 7 3. Acute kidney injury ~Secondary to above and possibly dehydration patient kidney function did improve with rehydration creatinine admission 1.31 subsequently improved 4. Valvular heart disease ~Patient has history of aortic valve replacement with bovine material 5. Hypertension ~ blood pressure controlled, home medications continued with dose adjustment as needed 6. Dyslipidemia ~patient is on statin therapy, continued at home dose 7. Parkinson's disease ~Patient is on Sinemet 8. DVT prophylaxis ~ bilateral SCDD hoses for now Active Medications Carbidopa/Levodopa (Sinemet) 1 tablet PO BID [facility] Last Admin: 03/01/19 21:45 Dose: 1 tablet Documented by: Citalopram Hydrobromide (Celexa) 10 mg PO DAILY [facility]AL[facility] Dextrose (D50w Syringe) 0 gm IV X1 PRN; Protocol PRN Reason: Hypoglycemia Ferrous Sulfate (Ferrous Sulfate) 325 mg PO DAILYCM NATALIO Last Admin: 03/02/19 08:13 Dose: 325 mg Documented by: Fluticasone Propionate (Flonase Nasal [place]) 2 spray NASAL DAILY [facility]ALIO Glucagon () 1 mg IM .X1 PRN PRN Reason: Hypoglycemia Sodium Chloride () 1,000 mls @ 100 mls/hr IV .Q10H NATALIO Stop: 03/02/19 11:53 Last Admin: 03/02/19 03:08 Dose: 100 mls/hr Documented by: Pantoprazole Sodium 40 mg/ (Sodium Chloride) 110 mls @ 330 mls/hr IV Q12 NATALIO Last Infusion: 03/01/19 22:05 Dose: Infused Documented by: Losartan Potassium (Cozaar) 50 mg PO DAILY NATALIO Sodium Chloride () 10 - 40 ml IV UD PRN PRN Reason: SALINE FLUSH Last Admin: 03/01/19 16:49 Dose: 10 ml Documented by: Code Visit OBSV E&M: 07839 Subsequent observation care L3
[2019-03-02 07:35] LABS: Absolute Lymphocyte Count 0.95 X10^3/uL (0.83-4.51); Absolute Neutrophil Count 4.5 X10^3/uL (2.0-7.7); Basophil# 0.03 X10^3/uL; Basophil% 0.5 % (0-1); Eosinophil# 0.12 X10^3/uL; Eosinophils% 1.9 % (0-5); Hematocrit 25.1 % (37-47); Hemoglobin 7.7 g/dL (12.0-15.0); Lymphocyte # 0.95 X10^3/ul (4.0); Lymphocyte % 15.3 % (19-41); Mean Corp Hgb Conc 30.7 g/dL (32-36); Mean Corpuscular Hgb 29.8 pg (27.0-32.0); Mean Corpuscular Volume 97.3 fL (81-99); Monocyte# 0.53 X10^3/uL; Monocyte% 8.5 % (0-10); NRBC Flagged by Analyzer 0 % (0-5); Neutrophil # 4.51 X10^3/uL (2.7-7.7); Neutrophil % 72.5 % (47-70); Platelet Count 142 K/mm3 (150-450); RBC Distribution Width CV 14.3 % (11.6-14.6); RBC Distribution Width SD 50.4 fl (35.1-43.9); Red Blood Count 2.58 M/mm3 (4.2-5.4); White Blood Count 6.2 K/mm3 (4.4-11.0)
[2019-03-02 07:59] LABS: Anion Gap 4 (5-15); BUN 21 mg/dL (7-18); BUN/Creat Ratio 20.8 RATIO (10-20); Calcium,Total 8.3 mg/dL (8.5-10.1); Chloride 111 mmol/L (98-107); Creatinine, Serum 1.01 mg/dL (0.55-1.02); EST Glomerular Filtration Rate 57 mL/min (>60); Est Glom Filt Rate - Afr Amer 69 mL/min (>60); Estimated Creatinine Clearance 43.31 ml/min; Glucose 74 mg/dL (74-106); Potassium 4.4 mmol/L (3.5-5.1); Sodium Level 135 mmol/L (136-145)
[2019-03-02] MEDS: Ferrous Sulfate 325 MG Tablet PO (08:13)
[2019-03-02 09:19] VITALS: BP 124/52; PULSE 75; RESP 18; TEMP 36.8; O2SAT 98
[2019-03-02 10:00] VITALS: RESP 18
[2019-03-02] MEDS: Citalopram 10 MG Tablet PO (10:58)
[2019-03-02] MEDS: Carbidopa/Levodopa 25/100 Tablet PO ×2 (10:58→22:15)
[2019-03-02] MEDS: Losartan Potassium 50 MG Tablet PO (11:02)
[2019-03-02] MEDS: Fluticasone 0.05% 1 SPRAY NASAL.SRY 2 SPRAY NASAL (11:03)
[2019-03-02 16:05] VITALS: BP 116/61; PULSE 71; RESP 18; TEMP 36.4; O2SAT 98
[2019-03-02 17:50] VITALS: RESP 18
[2019-03-02 22:15] VITALS: BP 126/41; PULSE 65; RESP 16; TEMP 36.8; O2SAT 98
[2019-03-02] MEDS: 0.9% NaCl Peripheral Flush Adult/Peds IV (22:16)
[2019-03-03 03:12] VITALS: BP 125/43; PULSE 68; RESP 16; TEMP 36.7; O2SAT 98
[2019-03-03] MEDS: Menthol/Lanolin/Calamine/Znox 113 GM Tube 1 APPLIC TOPICAL ×2 (06:39→21:22)
--- NOTE | 2019-03-03 07:20 | PCM.PN.HOSP ---
Subjective: CC Follow-up upper GI bleed Patient seen still waiting for bed prior to transfer to [facility]. Hemoglobin has remained fairly stable at 7.7. No recurrence of melena. Objective: GENERAL: cooperative HEENT: Atraumatic; EYES; Anicteric, pallor of Conjunctiva NECK; supple, normal thyroid, RESPIRATORY: Diminished to auscultation CARDIOVASCULAR: Regular S1 S2, GI: soft, non-tender, normoactive bowel sounds, : No Renal angle tenderness; EXTREMITIES: No edema, no clubbing, MUSCULOSKELETAL: No Joint Tenderness; NEURO: Awake; no lateralizing signs. SKIN: No Rash PSYCH; Normal affect Vitals/I&O's: Vital Signs Temp Pulse Resp BP Pulse Ox 98.1 F 68 16 125/43 H 98 03/03/19 03:12 03/03/19 03:12 03/03/19 03:12 03/03/19 03:12 03/03/19 03:12 Oxygen Delivery Method Room Air Weight: 57.8 kg Body Mass Index (BMI) 21.2 Intake and Output for Last 24 Hours 03/01/19 03/02/19 03/03/19 23:59 23:59 23:59 Intake Total 763.33 / 783.33 3045 / 3045 100 / 100 Output Total 1400 / 1400 Balance 763.33 / 783.33 1645 / 1645 100 / 100 Microbiology Past 72 Hours 03/01/19 12:05 Urine Catheter - Catheter Urine Culture - Preliminary Presumptive E. coli 03/01/19 10:55 Stool Stool Occult Blood (KYLE) - Final Occult Blood Positive Laboratory Results 03/02/19 07:00: WBC 6.2, RBC 2.58 L, Hgb 7.7 L, Hct 25.1 L, MCV 97.3, MCH 29.8, MCHC 30.7 L, RDW Std Deviation 50.4 H, RDW Coeff of Erma 14.3, Plt Count 142 L, MPV 10.0, Immature Gran % (Auto) 1.300 H, Neut % (Auto) 72.5 H, Lymph % (Auto) 15.3 L, Bennett % (Auto) 8.5, Eos % (Auto) 1.9, Baso % (Auto) 0.5, Absolute Neuts (auto) 4.5, Absolute Lymphs (auto) 0.95, Nucleated RBC % 0 03/02/19 07:00: Sodium 135 L, Potassium 4.4, Chloride 111 H, Carbon Dioxide 20.0 L, Anion Gap 4 L, BUN 21 H, Creatinine 1.01, Estim Creat Clear Calc 43.31, Est GFR (MDRD) Af Amer 69, Est GFR (MDRD) Non-Af 57 L, BUN/Creatinine Ratio 20.8 H, Glucose 74, Calcium 8.3 L Current Medications Calamine/Phenol (Calmoseptine Ointment) 1 applic TOPICAL BID [facility]; Protocol Last Admin: 03/03/19 06:39 Dose: 1 applicatio Documented by: Carbidopa/Levodopa (Sinemet) 1 tablet PO BID [facility] Last Admin: 03/02/19 22:15 Dose: 1 tablet Documented by: Citalopram Hydrobromide (Celexa) 10 mg PO DAILY [facility] Last Admin: 03/02/19 10:58 Dose: 10 mg Documented by: Dextrose (D50w Syringe) 0 gm IV X1 PRN; Protocol PRN Reason: Hypoglycemia Ferrous Sulfate (Ferrous Sulfate) 325 mg PO DAILYCM [facility] Last Admin: 03/02/19 08:13 Dose: 325 mg Documented by: Fluticasone Propionate (Flonase Nasal Flanagan) 2 spray NASAL DAILY [facility] Last Admin: 03/02/19 11:03 Dose: 2 u Documented by: Glucagon () 1 mg IM .X1 PRN PRN Reason: Hypoglycemia Pantoprazole Sodium 40 mg/ (Sodium Chloride) 110 mls @ 330 mls/hr IV Q12 [facility] Last Infusion: 03/02/19 22:35 Dose: Infused Documented by: Losartan Potassium (Cozaar) 50 mg PO DAILY [facility] Last Admin: 03/02/19 11:02 Dose: 50 mg Documented by: Sodium Chloride () 10 - 40 ml IV UD PRN PRN Reason: SALINE FLUSH Last Admin: 03/02/19 22:16 Dose: 10 ml Documented by: Medical Necessity - Tobacco Use Smoking Status: Never smoker Assessment/Plan All Active Problems (Last Updated 11/29/18 @ 17:02 by Trevon Chacon DO) Upper gastrointestinal bleeding (Acute) Anemia (Acute) GI bleed (Acute) Acute blood loss anemia (Acute) Patient is a 73-year-old lady with known peptic ulcer disease diagnosed in December 2018 at [facility] presented with melenic stools. An assessment of acute on chronic anemia secondary to acute blood loss possibly from recurrent peptic ulcer disease was made started on Protonix admitted to regular nursing floor call was placed to [facility] to have patient transferred. Patient has been accepted for transfer currently awaiting bed assignment 1. Upper GI bleed ~Secondary to suspected peptic ulcer disease. Patient apparently underwent a transgastric laparoscopic endoscopy in December 2018 which did reveal peptic ulcer disease. Patient hemoglobin on admission was 8.7 has subsequently dropped to 7.7, Plan is for patient to be transferred to [facility] once bed becomes available ?03/03/2019 patient seen still waiting for bed prior to transfer to [facility]. Hemoglobin has remained fairly stable at 7.7. No recurrence of melena. 2. Anemia ~secondary to acute on chronic anemia from blood loss. Monitoring H&H with plans to transfuse if patient becomes symptomatic or hemoglobin falls below 7 3. Acute kidney injury ~Secondary to above and possibly dehydration patient kidney function did improve with rehydration creatinine admission 1.31 subsequently improved 4. Valvular heart disease ~Patient has history of aortic valve replacement with bovine material 5. Hypertension ~ blood pressure controlled, home medications continued with dose adjustment as needed 6. Dyslipidemia ~patient is on statin therapy, continued at home dose 7. Parkinson's disease ~Patient is on Sinemet 8. DVT prophylaxis ~ bilateral SCDD hoses for now Code Visit OBSV E&M: 24844 Subsequent observation care L2
[2019-03-03 08:02] LABS: Hematocrit 25.2 % (37-47); Hemoglobin 7.7 g/dL (12.0-15.0)
[2019-03-03] MEDS: Losartan Potassium 50 MG Tablet PO (09:18)
[2019-03-03 09:19] VITALS: BP 124/51; PULSE 65; RESP 18; TEMP 36.8; O2SAT 96
[2019-03-03] MEDS: Citalopram 10 MG Tablet PO (09:19)
[2019-03-03] MEDS: Fluticasone 0.05% 1 SPRAY NASAL.SRY 2 SPRAY NASAL (09:19)
[2019-03-03] MEDS: Ferrous Sulfate 325 MG Tablet PO (09:19)
[2019-03-03] MEDS: Carbidopa/Levodopa 25/100 Tablet PO ×2 (09:19→21:22)
[2019-03-03 14:07] VITALS: BP 101/47; PULSE 61; RESP 16; TEMP 37.3; O2SAT 99
[2019-03-03 14:10] VITALS: PULSE 60
--- NOTE | 2019-03-03 16:31 | NURSING ---
called [facility] transfer line spoke to Rody. no bed available yet for pt.
[2019-03-03 21:20] VITALS: BP 119/44; PULSE 60; RESP 16; TEMP 36.7; O2SAT 98
[2019-03-03] MEDS: 0.9% NaCl Peripheral Flush Adult/Peds IV (21:21)
[2019-03-03] MEDS: Ciprofloxacin 250 MG Tablet PO (21:26)
[2019-03-04 04:50] VITALS: BP 114/48; PULSE 64; RESP 16; TEMP 36.6; O2SAT 96
[2019-03-04] MEDS: Ciprofloxacin 250 MG Tablet PO (09:04)
[2019-03-04] MEDS: Citalopram 10 MG Tablet PO (09:04)
[2019-03-04] MEDS: Carbidopa/Levodopa 25/100 Tablet PO (09:04)
[2019-03-04] MEDS: Losartan Potassium 50 MG Tablet PO (09:04)
[2019-03-04] MEDS: Ferrous Sulfate 325 MG Tablet PO (09:05)
[2019-03-04] MEDS: Menthol/Lanolin/Calamine/Znox 113 GM Tube 1 APPLIC TOPICAL (09:05)
[2019-03-04] MEDS: Fluticasone 0.05% 1 SPRAY NASAL.SRY 2 SPRAY NASAL (09:05)
[2019-03-04] MEDS: 0.9% NaCl Peripheral Flush Adult/Peds IV (09:11)
--- NOTE | 2019-03-04 09:17 | NURSING ---
[facility] called, aware still no bed available at this time.
[2019-03-04 09:33] VITALS: BP 131/40; PULSE 64; RESP 16; TEMP 36.6; O2SAT 98
--- NOTE | 2019-03-04 10:49 | NURSING ---
Called for transport [facility] to take patient to [facility] H 81 Bed 17.
--- NOTE | 2019-03-04 11:17 | PCA ---
[facility] Picked Patient up to go to [facility] at 1107. This [employer] Obtained Bed at 10:00 this am
--- NOTE | 2019-03-04 11:30 | PCM.DC.SUM ---
Discharge Date and Diagnosis Date of Admission: 03/01/19 Date of Discharge: 03/04/19 Hospital Course and Treatment Operations: None Summary of Care Provided: The patient is a 73 year old F with history of peptic ulcer disease diagnosed in December 2018 at [facility] presented with melenic stools diagnosed with endoscopy and then had laparoscopic transgastric endoscopy with clipping. The patient was found acute on chronic anemia secondary to acute blood loss possibly from recurrent peptic ulcer disease and started on IV Protonix 40 mg every 12 hourly. Patient has been accepted for transfer to [facility] but was admitted pending bed assignment. 1. Upper GI bleed Secondary to suspected peptic ulcer disease. Patient hemoglobin on admission was 8.7 has subsequently dropped to 7.7, but they stayed for last 2 times. No recurrence of melena. Continue Protonix. 2. Anemia secondary to acute on chronic anemia from blood loss. Monitoring H&H with plans to transfuse if patient becomes symptomatic or hemoglobin falls below 7 3. Acute kidney injury Secondary to above and possibly dehydration patient kidney function did improve with rehydration creatinine admission 1.31 subsequently improved to 1.0. 4. Valvular heart disease Patient has history of aortic valve replacement with bovine material. Not on anticoagulant. 5. Hypertension blood pressure controlled, home medications continued with dose adjustment as needed 6. Dyslipidemia patient is on statin therapy, continued at home dose 7. Parkinson's disease Patient is on Sinemet 8. DVT prophylaxis bilateral SCD hoses for now. Pharmacological prophylaxis contraindicated [] Transfer papers signed. Patient is being transferred for [facility]. Total time spent, exact 35 minutes. Subjective: Seen and examined. Patient does not feel dizziness, shortness of breath. Was admitted with melena but no recurrence while hospital stay here. Hemodynamically stable. Heart rate in 60s, blood pressure 131/40. Pulse ox 98% on room air. - Physical Exam General: Alert, Oriented x3, Cooperative HEENT: Atraumatic, PERRLA, EOMI, Normocephalic Neck: Supple, No JVD, Negative Carotid Bruits, - Lungs: Clear to auscultation, Normal air movement, No rhonchi, No wheeze, No rales Cardiovascular: Regular rate, Regular Rhythm, Normal S1, Normal S2, Murmur - Systolic murmur present. Abdomen: Bowel Sounds Present, Soft, Non Tender, Non-Distended Extremities: No edema, Capillary Refill Less than 3 Seconds Skin: No rashes, No breakdown Musculoskeletal: No Tenderness to Palpation of Joints or Extremities, Arthritic Changes Neurological: Cranial nerves II-XII grossly intact, Deep Tendon Reflexes 2+/4 and Symmetrical, Neuro grossly intact Psych/Mental Status: Normal Affect, Appropriate Vital Signs Temp Pulse Resp BP Pulse Ox 97.9 F 64 16 131/40 H 98 03/04/19 09:33 03/04/19 09:33 03/04/19 09:33 03/04/19 09:33 03/04/19 09:33 Oxygen Delivery Method Room Air Weight: 127 lb 6.835 oz Body Mass Index (BMI) 21.2 Intake and Output for Last 24 Hours 03/02/19 03/03/19 03/04/19 23:59 23:59 23:59 Intake Total 3045 / 3045 320 / 320 210 / 210 Output Total 1400 / 1400 200 / 200 Balance 1645 / 1645 320 / 320 10 / 10 Microbiology Past 72 Hours 03/01/19 12:05 Urine Culture - Final Urine Catheter - Catheter Presumptive E. coli 03/01/19 10:55 Stool Occult Blood (KYLE) - Final Stool Occult Blood Positive Home Medications: Medications to take at Discharge Carbidopa/Levodopa [Carbidopa-Levodopa 25-100 Tab] 1 tab PO BID 11/29/18 Cholecalciferol (Vitamin D3) [Vitamin D3] 2,000 unit PO DAILY 11/29/18 Citalopram Hydrobromide [Citalopram HBr] 10 mg PO DAILY 11/29/18 Ferrous Sulfate 325 mg PO DAILY 11/29/18 Multivitamin [Multiple Vitamins] 1 tab PO DAILY 11/29/18 Oxybutynin [Ditropan] 5 mg PO TID 11/29/18 Pravastatin [Pravachol] 40 mg PO QHS 11/29/18 Vitamin B Complex 1 cap PO DAILY 11/29/18 traZODone [Desyrel] 100 mg PO QHS 11/29/18 Acetaminophen [Tylenol Extra Strength] 1,000 mg PO PRN PRN 03/01/19 Fluticasone Propionate 2 spray NARES DAILY 03/01/19 Losartan Potassium [Cozaar] 50 mg PO DAILY 03/01/19 Pantoprazole Sodium [Protonix] 40 mg PO BID 03/01/19 Primary Care Physician: Vianca Baca MD [Primary Care Provider] - Medical Necessity - Tobacco Use Smoking Status: Never smoker Meaningful Use Info Meaningful Use Diagnoses (Choose all that apply): None applicable Code Visit Inpatient E&M: 07340 Disch Hosp
== END 2019-03-04 11:10 | disposition short-term general hospital (02) | DRG 378 ==
LOC: ED 11:08 → MS3 15:42
PROVIDERS: Internal Medicine; Admitting Provider Student in an Organized Health Care Education/Training Program; Emergency Provider Physician Assistant; Family Provider Internal Medicine; PCP Internal Medicine; Referring Provider Student in an Organized Health Care Education/Training Program; Visit Provider Internal Medicine
DX: K27.4 Chronic or unspecified peptic ulcer, site unspecified, with hemorrhage (principal); D62 Acute posthemorrhagic anemia; N17.9 Acute kidney failure, unspecified; I10 Essential (primary) hypertension; G20 Parkinson's disease; E78.5 Hyperlipidemia, unspecified; Z95.3 Presence of xenogenic heart valve; Z79.899 Other long term (current) drug therapy; N30.90 Cystitis, unspecified without hematuria; B96.20 Unspecified Escherichia coli [E. coli] as the cause of diseases classified elsewhere
CPT/HCPCS: 36415; 70450; 80048; 80053; 81001; 82274; 82962; 84484; 85014; 85018; 85025; 87086; 87088; 87186; 93005; 97802; 99285; J7030; J7040; A4216

== ENCOUNTER 2019-03-28 21:02 | Emergency (ER) | payer MEDICARE, OTHER, MEDICAID, SELFPAY ==
[2019-03-01 15:55] VITALS: BMI 21.2
[2019-03-28 21:03] VITALS: BP 181/66; PULSE 83; RESP 16; TEMP 36.6; O2SAT 98; BMI 22.4
--- NOTE | 2019-03-28 21:58 | CT_ITS ---
STUDY: CT BRAIN WITHOUT CONTRAST REASON FOR EXAM: Female, 73 years old. FALL-HIT HEAD,NAUSEA AND HAS DILATED PUPIL,CONFUSION RADIATION DOSAGE (If Supplied By Facility): CTDIvol = ( 44.99 ) mGy, DLP = ( 762.36 ) mGycm TECHNIQUE: Transaxial CT imaging of the brain was performed without administration of intravenous contrast material. Individualized dose optimization techniques were used for this CT. COMPARISON: Head CT dated March 01, 2019. FINDINGS: Mild focal soft tissue swelling of the scalp is present over the high posterior aspect of the left parietal bone. Normal calvarium. No fractures are seen. There is mild cerebral atrophy with widening of the extra-axial spaces and ventricular dilatation. There are areas of decreased attenuation within the white matter tracts of the supratentorial brain, consistent with microvascular disease changes. Normal basal ganglia and thalami. Normal brainstem. Normal cerebellum. There is no intracranial hemorrhage. There are no findings of an acute ischemic infarction. Normal visualized paranasal sinuses. CT/Brain/Head without Contrast IMPRESSION: 1. Chronic involutional changes of the brain. 2. Mild focal soft tissue swelling of the scalp is present over the high posterior aspect of the left parietal bone. 3. No fractures are seen. Electronically Signed: Garth Everett MD at 22:25 EDT , Service support ,
--- NOTE | 2019-03-28 21:58 | CT_ITS ---
STUDY: CT CERVICAL SPINE WITHOUT CONTRAST REASON FOR EXAM: Female, 73 years old. FALL-HIT HEAD,NAUSEA AND HAS DILATED PUPIL,CONFUSION RADIATION DOSAGE (If Supplied By Facility): CTDIvol = ( 13.17 ) mGy, DLP = ( 249.09 ) mGycm TECHNIQUE: High resolution transaxial imaging was performed without contrast material. Sagittal and coronal images were reconstructed. Individualized dose optimization techniques were used for this CT. COMPARISON: None FINDINGS: Normal craniovertebral junction. Normal anterior atlantoaxial articulation. Normal odontoid process. There is straightening of the normal cervical lordosis. No visualized acute fracture. Multilevel moderate to significant degenerative changes are present. Mild central canal stenosis is present at the C5-C6 level with mild compression anterior aspect of the cord from a posterior disc osteophyte complex Numerous chronic abnormalities seen in the soft tissues and visualized upper thoracic regions. CT/Spine Cervical without Contras IMPRESSION: Multilevel degenerative changes, as described above. Electronically Signed: Garth Everett MD at 22:28 EDT , Service support ,
[2019-03-28 23:12] LABS: Absolute Lymphocyte Count 0.66 X10^3/uL (0.83-4.51); Absolute Neutrophil Count 6.7 X10^3/uL (2.0-7.7); Basophil# 0.03 X10^3/uL; Basophil% 0.4 % (0-1); Eosinophil# 0.06 X10^3/uL; Eosinophils% 0.8 % (0-5); Hematocrit 24.6 % (37-47); Hemoglobin 7.8 g/dL (12.0-15.0); Lymphocyte # 0.66 X10^3/ul (4.0); Lymphocyte % 8.3 % (19-41); Mean Corp Hgb Conc 31.7 g/dL (32-36); Mean Corpuscular Hgb 30.8 pg (27.0-32.0); Mean Corpuscular Volume 97.2 fL (81-99); Mean Platelet Vol. 10.8 fl (6.2-12.0); Monocyte# 0.41 X10^3/uL; Monocyte% 5.2 % (0-10); NRBC Flagged by Analyzer 0 % (0-5); Neutrophil # 6.69 X10^3/uL (2.7-7.7); Neutrophil % 84.2 % (47-70); Platelet Count 137 K/mm3 (150-450); RBC Distribution Width CV 15.3 % (11.6-14.6); RBC Distribution Width SD 54.7 fl (35.1-43.9); Red Blood Count 2.53 M/mm3 (4.2-5.4); White Blood Count 7.9 K/mm3 (4.4-11.0)
[2019-03-28 23:23] VITALS: BP 159/68; PULSE 76; RESP 18; O2SAT 97
--- NOTE | 2019-03-28 23:30 | ED.DCSUM_ITS ---
- ER Visit Summary Date of Service: 03/28/19 Chief Complaint: [Fall with head injury] History of Present Illness: The patient is a 73 F [the emergency department after sustaining a fall today around 7 PM. Patient states that she was walking across the floor when she stumbled and fell and hit her head on a wood floor. She had no loss of consciousness. Patient subsequently developed dry heaves. Patient is complaining of neck pain. Family concerned that patient has dilated pupils and are unreactive. Patient has never had eye surgery. Patient denies any visual changes. Family states that patient has a hard time finishing thoughts now. Patient with history of hypertension and GI bleed. 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 Patient denies any recent rectal bleeding or black melanotic stools.] Physical Examination: [HEENT-PERRLA, EOMI. Cranial nerves II through XII grossly intact. TMs clear. Mucous membranes moist. No adenopathy. She has some mild diffuse tenderness to C-spine. Patient has normal active range of motion. Step-offs. Cardiovascular-regular rate and rhythm without murmur or ectopy Lungs-clear to auscultation, chest wall stable without crepitus or subcu emphysema Abdomen-normoactive bowel sounds, soft, nontender, no rebound or rigidity, no peritoneal signs. Neuro shqe-aamhti-[id number] and heel jackson testing within normal limits, negative Rom han, negative pronator, fundi benign Extremities-intact ?4, normal range of motion, normal pulses, atraumatic] Test Results: [CT scan of the brain without contrast showed chronic changes and some soft tissue swelling over the left parietal bone. CT scan of the cervical spine show degenerative changes no fractures. CBC with differential obtained showed a white count of 7.9, hemoglobin 7.8, hematocrit 25, plates 137.] Orthostatic vital signs were obtained and were negative. Chemistries unremarkable. Emergency Department Course and Treatment: [Case was discussed with ophthalmology given the dilated pupils. At this point seems that there is been some improvement in the size of the pupils bilaterally and they seem to be min imally reactive. Patient visual acuity was documented and it is the same with glasses and without. Patient does not complain of any change in vision. Ophthalmology would be happy to see her tomorrow in follow-up. Patient's anemia is chronic.] Treatment Plan: [Patient to follow-up with primary care physician in 3 to 5 days. Patient to follow-up with ophthalmology tomorrow.] Disposition: [Discharged home in stable condition.] Impression: [Closed head injury/concussion Chronic anemia Mechanical fall] This note was generated with [employer] dictation software. It may contain incorrect words, spelling, and punctuation that were not noted in review of the chart prior to signing ED Disposition - Plan for ED Patient: Referrals: Vianca Baca MD [Primary Care Provider] -
[2019-03-28 23:34] VITALS: BP 128/52; BP 131/75; BP 135/71; PULSE 70; PULSE 71
[2019-03-28 23:35] LABS: Anion Gap 8 (5-15); BUN 18 mg/dL (7-18); BUN/Creat Ratio 18.3 RATIO (10-20); Calcium,Total 8.2 mg/dL (8.5-10.1); Chloride 106 mmol/L (98-107); Creatinine, Serum 0.98 mg/dL (0.55-1.02); EST Glomerular Filtration Rate 58 mL/min (>60); Est Glom Filt Rate - Afr Amer 71 mL/min (>60); Estimated Creatinine Clearance 42.83 ml/min; Glucose 95 mg/dL (74-106); Potassium 4.2 mmol/L (3.5-5.1); Sodium Level 134 mmol/L (136-145)
--- NOTE | 2019-03-28 23:47 | ED.DEP ---
ED Disposition - Plan for ED Patient: Instructions: FALL, Mechanical, CONCUSSION, No Wake Up, ANEMIA, Type Not Specified (Adult) Referrals: Vianca Baca MD [Primary Care Provider] - 3-5 Days Emiliano Rizvi MD [STAFF PHYSICIAN] - 1 Day
== END 2019-03-28 23:55 | disposition home or self-care (01) ==
PROVIDERS: Emergency Provider Emergency Medicine; Family Provider Internal Medicine; PCP Internal Medicine
DX: S06.0X0A Concussion without loss of consciousness, initial encounter (principal); D50.9 Iron deficiency anemia, unspecified; R01.1 Cardiac murmur, unspecified; W01.0XXA Fall on same level from slipping, tripping and stumbling without subsequent striking against object, initial encounter; Y93.01 Activity, walking, marching and hiking; Y92.9 Unspecified place or not applicable; G25.81 Restless legs syndrome; I10 Essential (primary) hypertension; Z87.19 Personal history of other diseases of the digestive system; Z98.84 Bariatric surgery status; Z95.2 Presence of prosthetic heart valve; Z79.899 Other long term (current) drug therapy
CPT/HCPCS: 70450; 72125; 80048; 85025; 99285; J7030; A4216

== ENCOUNTER 2019-05-16 13:55 | Outpatient (RCR) | payer MEDICARE, OTHER, SELFPAY ==
[2019-05-06 12:39] LABS: Creatinine, Serum 0.73 mg/dL (0.55-1.02); EST Glomerular Filtration Rate 83 mL/min (>60); Est Glom Filt Rate - Afr Amer 100 mL/min (>60)
[2019-05-06 12:40] LABS: Absolute Lymphocyte Count 1.09 X10^3/uL (0.83-4.51); Absolute Neutrophil Count 6.2 X10^3/uL (2.0-7.7); Basophil# 0.06 X10^3/uL; Basophil% 0.7 % (0-1); Eosinophil# 0.85 X10^3/uL; Eosinophils% 9.7 % (0-5); Hematocrit 22.9 % (37-47); Hemoglobin 7.1 g/dL (12.0-15.0); Lymphocyte # 1.09 X10^3/ul (4.0); Lymphocyte % 12.5 % (19-41); Mean Corpuscular Hgb 31.1 pg (27.0-32.0); Mean Corpuscular Volume 100.4 fL (81-99); Mean Platelet Vol. 9.3 fl (6.2-12.0); Monocyte# 0.52 X10^3/uL; Monocyte% 5.9 % (0-10); NRBC Flagged by Analyzer 0 % (0-5); Neutrophil # 6.16 X10^3/uL (2.7-7.7); Neutrophil % 70.5 % (47-70); Platelet Count 396 K/mm3 (150-450); RBC Distribution Width CV 16.4 % (11.6-14.6); RBC Distribution Width SD 60.1 fl (35.1-43.9); Red Blood Count 2.28 M/mm3 (4.2-5.4); White Blood Count 8.7 K/mm3 (4.4-11.0)
[2019-05-13 15:15] LABS: Absolute Lymphocyte Count 0.76 X10^3/uL (0.83-4.51); Absolute Neutrophil Count 3.8 X10^3/uL (2.0-7.7); Basophil# 0.07 X10^3/uL; Basophil% 1.1 % (0-1); Eosinophil# 1.36 X10^3/uL; Eosinophils% 20.9 % (0-5); Hematocrit 27.5 % (37-47); Hemoglobin 8.6 g/dL (12.0-15.0); Lymphocyte # 0.76 X10^3/ul (4.0); Lymphocyte % 11.7 % (19-41); Mean Corp Hgb Conc 31.3 g/dL (32-36); Mean Corpuscular Hgb 31.9 pg (27.0-32.0); Mean Corpuscular Volume 101.9 fL (81-99); Mean Platelet Vol. 9.5 fl (6.2-12.0); Monocyte# 0.46 X10^3/uL; Monocyte% 7.1 % (0-10); NRBC Flagged by Analyzer 0 % (0-5); Neutrophil # 3.83 X10^3/uL (2.7-7.7); Neutrophil % 58.7 % (47-70); Platelet Count 273 K/mm3 (150-450); RBC Distribution Width CV 17.1 % (11.6-14.6); RBC Distribution Width SD 63.3 fl (35.1-43.9); White Blood Count 6.5 K/mm3 (4.4-11.0)
[2019-05-13 15:20] LABS: Creatinine, Serum 0.78 mg/dL (0.55-1.02); EST Glomerular Filtration Rate 76 mL/min (>60); Est Glom Filt Rate - Afr Amer 92 mL/min (>60)
[2019-05-16 14:07] LABS: Hematocrit 29.1 % (37-47); Hemoglobin 9.2 g/dL (12.0-15.0); Mean Corp Hgb Conc 31.6 g/dL (32-36); Mean Corpuscular Hgb 32.1 pg (27.0-32.0); Mean Corpuscular Volume 101.4 fL (81-99); Mean Platelet Vol. 9.6 fl (6.2-12.0); Platelet Count 254 K/mm3 (150-450); RBC Distribution Width CV 16.7 % (11.6-14.6); RBC Distribution Width SD 62.4 fl (35.1-43.9); Red Blood Count 2.87 M/mm3 (4.2-5.4); White Blood Count 6.1 K/mm3 (4.4-11.0)
[2019-05-17 10:16] LABS: Absolute Lymphocyte Count 0.85 X10^3/uL (0.83-4.51); Absolute Neutrophil Count 3.4 X10^3/uL (2.0-7.7); Basophil# 0.07 X10^3/uL; Basophil% 1.2 % (0-1); Eosinophil# 1.32 X10^3/uL; Lymphocyte # 0.85 X10^3/ul (4.0); Lymphocyte % 14.1 % (19-41); Monocyte# 0.37 X10^3/uL; Monocyte% 6.2 % (0-10); NRBC Flagged by Analyzer 0 % (0-5); Neutrophil # 3.38 X10^3/uL (2.7-7.7); Neutrophil % 56.2 % (47-70)
== END 2019-05-16 18:00 | disposition home or self-care (01) ==
LOC: HHLAB 13:55
PROVIDERS: Family Provider Internal Medicine; PCP Internal Medicine
DX: T82.6XXD Infection and inflammatory reaction due to cardiac valve prosthesis, subsequent encounter (principal); I38 Endocarditis, valve unspecified
CPT/HCPCS: 82565; 85025; 85027

== ENCOUNTER 2020-05-08 11:56 | Emergency (ER) | payer MEDICARE, OTHER, SELFPAY ==
[2020-05-08 11:57] VITALS: BP 158/89; PULSE 86; RESP 18; TEMP 36.1; O2SAT 97; BMI 27.1
--- NOTE | 2020-05-08 12:16 | VDLE_ITS ---
Reason For Study: LLE swelling RIGHT LEFT CFV is compressible, spontaneous, competent GSV is normal. and demonstrates pulsatile venous flow. CFV is compressible, spontaneous, competent, Procedure and demonstrates pulsatile venous flow. Exam performed portable in ED. FV is compressible, spontaneous, competent The exam was diagnostic. and demonstrates pulsatile venous flow. A preliminary report was called and/or faxed POP V is compressible, spontaneous, competent to Dr. Keith 12:55 pm. and demonstrates pulsatile venous flow. T/P Trunk is compressible. PTV is compressible. LT PerV is compressible. Interpretation Summary There is no evidence of left lower extremity deep vein thrombosis. Left great saphenous vein appears patent and compressible segmentally. Pulsitile venous flow is noted bilaterally consistent with proximal venous hypertension or obstruction. Clinical correlation would be appropriate Ordering Physician: Fabiano Keith Referring Physician: Vianca Baca Performed By: Emma Alcala, AMY, RVT
--- NOTE | 2020-05-08 12:16 | ED.RN ---
pt upset that son is not allowed back to be with her. explained rationale to pt
[2020-05-08] MEDS: Acetaminophen 500 MG Tablet 1000 MG PO (12:29)
--- NOTE | 2020-05-08 13:10 | ED.DCSUM_ITS ---
- ER Visit Summary Date of Service: 05/08/20 Chief Complaint: Left leg pain History of Present Illness: The patient is a [address] Hamilton and had a left total knee replacement by Dr. Gutierrez. She reports that she has had left knee and leg pain for approximately 2 months. States that her left leg is becoming swollen over the same timeframe. Reports that she has a burning, stabbing pain is 710 with walking 2 out of 10 at rest. She states that she has followed up with orthopedic surgeon and had x-rays of her that negative. She denies any recent trauma. Patient is concerned that she may have a blood clot. She denies any fever, chills, chest pain, or shortness of breath. Physical Examination: Vitals: Stable. Afebrile. General: Well-nourished and well-developed. Head: Normocephalic atraumatic. Neck: Supple, no lymphadenopathy. No JVD. Nontender. Cardiovascular: Regular rate and rhythm. No murmurs. Respiratory: No respiratory distress. Clear to auscultation bilaterally. Abdominal: Soft, nontender, nondistended, normal bowel sounds. No guarding, rebound, or peritoneal signs. Back: Nontender. Extremities: Left knee is clearly swollen. However there is no overlying erythema or warmth. She has full range of motion without any difficulty. She has 2+ pitting edema left lower extremity. Trace pedal edema on the right. Skin: Normal color, no rash. Neurologic: Alert and oriented ?3. Cranial nerves II through XII are intact. Normal strength and sensation. Psych: Normal affect. Test Results: Left lower extremity Doppler shows no evidence of DVT. Emergency Department Course and Treatment: Patient was treated with Tylenol and is resting comfortably. Clinically I do not think that she has a septic joint. This is been something that is gradually occurred over the past course the past 2 months. I do not think that arthrocentesis is indicated. Treatment Plan: Patient will be discharged with instructions to follow-up with her primary care physician in 3 days for the swelling. Follow-up with orthopedic surgeon for further evaluation of her knee pain. Return to the emergency department for any worsening symptoms. Disposition: To home in improved and stable condition. Impression: 1. Peripheral edema left lower extremity. 2. Left knee pain, chronic. This note was generated with [employer] software. It may contain incorrect words, spelling, and punctuation that were not noted in review of the chart prior to signing ED Disposition - Plan for ED Patient: Disposition: Home or Assisted Living Instructions: ED Peripheral Edema, Unilateral Referrals: Vianca Baca MD [Primary Care Provider] - 1-2 Days if not improving
[2020-05-08 13:20] VITALS: BP 185/79; PULSE 66; RESP 15; O2SAT 97
== END 2020-05-08 13:20 | disposition home or self-care (01) ==
LOC: ED 13:59
PROVIDERS: Emergency Provider Emergency Medicine; PCP Internal Medicine
DX: R60.0 Localized edema (principal); M25.562 Pain in left knee; G89.29 Other chronic pain; I25.10 Atherosclerotic heart disease of native coronary artery without angina pectoris; E78.00 Pure hypercholesterolemia, unspecified; Z96.652 Presence of left artificial knee joint; Z79.899 Other long term (current) drug therapy
CPT/HCPCS: 93971; 99283

== ENCOUNTER 2020-05-13 15:00 | Outpatient (RCR) | payer MEDICARE, OTHER, SELFPAY ==
--- NOTE | 2020-04-15 16:57 | HP.PTEVAL_ITS ---
Patient's Visit Information DAVID PORRAS is a 74 year old F referred to Physical Therapy by Dr. Avtar Gutierrez DO with a diagnosis of Pain in L knee. Date of Evaluation: 04/15/20 Physical Therapist: ALETHA TseT, OCS, CSCS - Visit Plan Frequency: 3x /Week Duration: 4 Weeks Plan: 3x/week for 3-4 weeks for..Pt has pacemaker. 1. painfree hip and LE and postural strength program progressing to home, emphasize LE and hips including hip flexion L. 2. Stretch and rollout quad L.MH. 3. ice if sore - Subjective L knee hurts. Fell on it 3 weeks ago. 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 Fell catching wet shoe on floor and it slipped. Fell on the step. Front of L knee hit metal strip. Hut right away and is not improving or worsening. Saw original doctor and sent for PT. X rays were OK. L knee hurts to 7/10 if on it alot. Comfortable at rest. Knee does not keep her up at night. Has cane whcih she uses soemtimes and has walker that she uses at home most of time. Has used it for years. Lives alone in one story with two steps to enter with railing/ramp. Dresses self and showers /bathes self. Has many bars in the shower at home. Not employed. Normally spends day reading. No exercises. Currenty not avoiding any acivity but pain in L knee. - Pain L knee anterior pain Pain Intensity (Out of 10): 0 Pain Intensity Range: 0, 7 - Objective L Knee causing slow but steady gait today. trasnfers I. Steps with two rails preferring R LE useage up and down, some pain descending with L. L knee AROM 0- 91 degrees,s ays it went further prior to fall, L knee 0-98. HS min tight B, quads Mod tight B heel 3 inches from butt in prone and pain in L knee at end range. hips weak B 3+ hip abd/ext B, flexion 3 on L and 4- on R. knee ext 3+ B, knee felxion 4- B, no pain. ankles movements WNl and 4-/5. Patella moves well on L and R, withotu pain or tenderness. Mild soft tissue tenderness medially L knee joint. - Balance Scores Functional Gait Assessment Score: 21 % Disability: 30.0000 - Goals Goal 1:: I approp HEP for posture and LE with list and pics to do at home without pain. Goal Time Frame: 4-6 Weeks Goal 2:: Pain in L knee 0-2/10 at all times and 75% improved overall. Goal Time Frame: 4-6 Weeks Goal 3:: FGA to minimzie fall risk. Goal Time Frame: 4-6 Weeks Goal 4:: LEFS Goal Time Frame: 4-6 Weeks - Rehabilitation Potential Physical Therapy Diagnosis: L knee pain after fall Rehabilitation Potential: Fair - Anticipated Interventions Patient/Client Instruction: Educate patient on: Condition, Plan of Care For the Purpose of:: To decrease pain, To increase ROM, To improve muscle performance and motor function, To increase tolerance to activity/condition/position Therapeutic Exercise to Include: Strength training, Flexibilty training, Passive ROM, Active ROM For the Purpose of:: To decrease pain, To increase ROM, To improve muscle performance and motor function Cryotherapy (ice pack, ice massage): Yes For the Purpose of:: To decrease pain Thank you for the opportunity to evaluate your patient. For Medicare and Medicare HMO plans, please review the plan of care and approve it. It will need to be FAXED BACK to us at [phone] for Medicare purposes. For Medicare only, by signing this I certify the plan of care. Please let me know if there are questions or concerns regarding this plan of care. Physician Signature:____ Date:
--- NOTE | 2020-07-08 08:57 | HP.PT.NRP ---
DAVID PORRAS was seen in my office for initial evaluation on 04/15/20. The following Plan of Care was established for this patient: Initial Frequency: 3x /Week Initial Duration: 4 Weeks Patient/Client Instruction: Educate patient on: Condition, Plan of Care For the Purpose of:: To decrease pain, To increase ROM, To improve muscle performance and motor function, To increase tolerance to activity/condition/position Therapeutic Exercise to Include: Strength training, Flexibilty training, Passive ROM, Active ROM For the Purpose of:: To decrease pain, To increase ROM, To improve muscle performance and motor function Cryotherapy (ice pack, ice massage): Yes For the Purpose of:: To decrease pain This patient was last seen in our office 05/13/20. Pertinent comments regarding their Physical therapy will appear below: Pt seen 6 visits of POC and then cancelled or no showed for the rest. at this point, it has been over 6 weeks and I will discontinue due to nonattendance. At this point I will be discontinuing this patient from physical therapy. I would be happy to see this patient again in the future if found appropriate by the physician. Thank you! Trevon Cleary, DPT, OCS, CSCS
== END 2020-05-13 19:00 | disposition home or self-care (01) ==
LOC: PT 15:00
PROVIDERS: PCP Internal Medicine; Referring Provider Orthopaedic Surgery; Visit Provider Orthopaedic Surgery
DX: S80.02XD Contusion of left knee, subsequent encounter (principal); Z96.652 Presence of left artificial knee joint; M25.562 Pain in left knee
CPT/HCPCS: 97110; 97161

== ENCOUNTER → 2021-01-11 04:00 | Outpatient (REF) | payer MEDICARE, OTHER, SELFPAY ==
[2021-01-11 07:56] LABS: Absolute Lymphocyte Count 1.44 X10^3/uL (0.83-4.51); Absolute Neutrophil Count 3.4 X10^3/uL (2.0-7.7); Basophil# 0.04 X10^3/uL; Basophil% 0.7 % (0-1); Eosinophil# 0.37 X10^3/uL; Eosinophils% 6.4 % (0-5); Hematocrit 30.5 % (37-47); Hemoglobin 9.4 g/dL (12.0-15.0); Lymphocyte # 1.44 X10^3/ul (0.83-4.51); Lymphocyte % 24.8 % (19-41); Mean Corp Hgb Conc 30.8 g/dL (32-36); Mean Corpuscular Hgb 32.9 pg (27.0-32.0); Mean Corpuscular Volume 106.6 fL (81-99); Mean Platelet Vol. 10.3 fl (6.2-12.0); Monocyte# 0.51 X10^3/uL; Monocyte% 8.8 % (0-10); NRBC Flagged by Analyzer 0 % (0-5); Neutrophil # 3.41 X10^3/uL (2.7-7.7); Neutrophil % 58.6 % (47-70); Platelet Count 218 K/mm3 (150-450); RBC Distribution Width SD 51.2 fl (35.1-43.9); Red Blood Count 2.86 M/mm3 (4.2-5.4); White Blood Count 5.8 K/mm3 (4.4-11.0)
[2021-01-11 08:12] LABS: Anion Gap 7 (5-15); BUN 30 mg/dL (7-18); BUN/Creat Ratio 29.1 RATIO (10-20); CRP < 2.90 mg/L (0.0-3.0); Calcium,Total 8.3 mg/dL (8.5-10.1); Chloride 108 mmol/L (98-107); Creatinine, Serum 1.03 mg/dL (0.55-1.02); EST Glomerular Filtration Rate 55 mL/min (>60); Est Glom Filt Rate - Afr Amer 67 mL/min (>60); Glucose 72 mg/dL (74-106); Sodium Level 139 mmol/L (136-145)
== END ==
LOC: OLS.WHLTCC 04:00
PROVIDERS: PCP Internal Medicine; Visit Provider Family Medicine
DX: Z47.89 Encounter for other orthopedic aftercare (principal); T84.54XD Infection and inflammatory reaction due to internal left knee prosthesis, subsequent encounter; N20.0 Calculus of kidney; R33.9 Retention of urine, unspecified
CPT/HCPCS: 36415; 80048; 85025; 86140

== ENCOUNTER → 2021-01-25 04:00 | Outpatient (REF) | payer MEDICARE, OTHER, SELFPAY ==
[2021-01-25 08:14] LABS: Absolute Lymphocyte Count 1.19 X10^3/uL (0.83-4.51); Absolute Neutrophil Count 3.1 X10^3/uL (2.0-7.7); Basophil# 0.03 X10^3/uL; Basophil% 0.6 % (0-1); Eosinophils% 5.8 % (0-5); Hematocrit 30.7 % (37-47); Hemoglobin 9.4 g/dL (12.0-15.0); Lymphocyte # 1.19 X10^3/ul (0.83-4.51); Lymphocyte % 22.9 % (19-41); Mean Corp Hgb Conc 30.6 g/dL (32-36); Mean Corpuscular Hgb 33.1 pg (27.0-32.0); Mean Corpuscular Volume 108.1 fL (81-99); Mean Platelet Vol. 10.7 fl (6.2-12.0); Monocyte# 0.58 X10^3/uL; Monocyte% 11.2 % (0-10); NRBC Flagged by Analyzer 0 % (0-5); Neutrophil # 3.05 X10^3/uL (2.7-7.7); Neutrophil % 58.7 % (47-70); Platelet Count 155 K/mm3 (150-450); RBC Distribution Width CV 12.7 % (11.6-14.6); Red Blood Count 2.84 M/mm3 (4.2-5.4); White Blood Count 5.2 K/mm3 (4.4-11.0)
[2021-01-25 08:25] LABS: Anion Gap 7 (5-15); BUN 23 mg/dL (7-18); BUN/Creat Ratio 26.3 RATIO (10-20); CRP < 2.90 mg/L (0.0-3.0); Calcium,Total 8.1 mg/dL (8.5-10.1); Chloride 111 mmol/L (98-107); Creatinine, Serum 0.88 mg/dL (0.55-1.02); EST Glomerular Filtration Rate 67 mL/min (>60); Est Glom Filt Rate - Afr Amer 81 mL/min (>60); Glucose 83 mg/dL (74-106); Potassium 3.4 mmol/L (3.5-5.1); Sodium Level 141 mmol/L (136-145)
== END ==
LOC: OLS.WHLEAS 04:00
PROVIDERS: PCP Internal Medicine; Referring Provider Family Medicine; Visit Provider Family Medicine
DX: T84.54XD Infection and inflammatory reaction due to internal left knee prosthesis, subsequent encounter (principal); N20.0 Calculus of kidney; R33.9 Retention of urine, unspecified; Z47.89 Encounter for other orthopedic aftercare
CPT/HCPCS: 36415; 80048; 85025; 86140

== ENCOUNTER → 2021-02-09 05:00 | Outpatient (REF) | payer MEDICARE, OTHER, MEDICAID, SELFPAY ==
[2021-02-09 11:17] LABS: Absolute Lymphocyte Count 1.18 X10^3/uL (0.83-4.51); Absolute Neutrophil Count 3.3 X10^3/uL (2.0-7.7); Basophil# 0.04 X10^3/uL; Basophil% 0.7 % (0-1); Eosinophil# 0.28 X10^3/uL; Eosinophils% 5.2 % (0-5); Hematocrit 30.4 % (37-47); Hemoglobin 9.5 g/dL (12.0-15.0); Lymphocyte # 1.18 X10^3/ul (0.83-4.51); Lymphocyte % 21.9 % (19-41); Mean Corp Hgb Conc 31.3 g/dL (32-36); Mean Corpuscular Hgb 32.9 pg (27.0-32.0); Mean Corpuscular Volume 105.2 fL (81-99); Mean Platelet Vol. 10.5 fl (6.2-12.0); Monocyte# 0.58 X10^3/uL; Monocyte% 10.8 % (0-10); NRBC Flagged by Analyzer 0 % (0-5); Neutrophil # 3.28 X10^3/uL (2.7-7.7); Platelet Count 187 K/mm3 (150-450); RBC Distribution Width CV 12.6 % (11.6-14.6); RBC Distribution Width SD 48.6 fl (35.1-43.9); Red Blood Count 2.89 M/mm3 (4.2-5.4); White Blood Count 5.4 K/mm3 (4.4-11.0)
[2021-02-09 11:41] LABS: Anion Gap 6 (5-15); BUN 27 mg/dL (7-18); BUN/Creat Ratio 28.2 RATIO (10-20); CRP < 2.90 mg/L (0.0-3.0); Calcium,Total 8.3 mg/dL (8.5-10.1); Chloride 107 mmol/L (98-107); Creatinine, Serum 0.96 mg/dL (0.55-1.02); EST Glomerular Filtration Rate 60 mL/min (>60); Est Glom Filt Rate - Afr Amer 73 mL/min (>60); Glucose 79 mg/dL (74-106); Potassium 3.9 mmol/L (3.5-5.1); Sodium Level 139 mmol/L (136-145)
== END ==
LOC: OLS.WHLEAS 05:00
PROVIDERS: PCP Internal Medicine; Visit Provider Family Medicine
DX: T84.54XD Infection and inflammatory reaction due to internal left knee prosthesis, subsequent encounter (principal); Z47.89 Encounter for other orthopedic aftercare; N20.0 Calculus of kidney; R33.9 Retention of urine, unspecified; I10 Essential (primary) hypertension
CPT/HCPCS: 36415; 80048; 85025; 86140

== ENCOUNTER → 2021-02-25 05:00 | Outpatient (REF) | payer MEDICARE, OTHER, SELFPAY ==
[2021-02-25 07:59] LABS: Absolute Lymphocyte Count 1.12 X10^3/uL (0.83-4.51); Absolute Neutrophil Count 4.4 X10^3/uL (2.0-7.7); Basophil# 0.04 X10^3/uL; Basophil% 0.6 % (0-1); Eosinophil# 0.64 X10^3/uL; Eosinophils% 9.3 % (0-5); Hematocrit 26.7 % (37-47); Hemoglobin 8.3 g/dL (12.0-15.0); Lymphocyte # 1.12 X10^3/ul (0.83-4.51); Lymphocyte % 16.3 % (19-41); Mean Corp Hgb Conc 31.1 g/dL (32-36); Mean Corpuscular Hgb 31.3 pg (27.0-32.0); Mean Corpuscular Volume 100.8 fL (81-99); Mean Platelet Vol. 9.8 fl (6.2-12.0); Monocyte# 0.55 X10^3/uL; NRBC Flagged by Analyzer 0 % (0-5); Neutrophil # 4.43 X10^3/uL (2.7-7.7); Neutrophil % 64.3 % (47-70); Platelet Count 319 K/mm3 (150-450); RBC Distribution Width CV 14.8 % (11.6-14.6); RBC Distribution Width SD 54.1 fl (35.1-43.9); Red Blood Count 2.65 M/mm3 (4.2-5.4); White Blood Count 6.9 K/mm3 (4.4-11.0)
[2021-02-25 08:56] LABS: Ferritin 393 ng/mL (8-252); Iron 36 ug/dL (50-170); Iron Binding Capacity,Total 152 ug/dL (250-450)
== END ==
LOC: OLS.WHLEAS 05:00
PROVIDERS: PCP Internal Medicine; Visit Provider Family Medicine
DX: D50.9 Iron deficiency anemia, unspecified (principal); M62.81 Muscle weakness (generalized); R26.2 Difficulty in walking, not elsewhere classified; R27.8 Other lack of coordination; Z47.1 Aftercare following joint replacement surgery; Z96.652 Presence of left artificial knee joint
CPT/HCPCS: 36415; 82728; 82746; 83540; 83550; 85025

== ENCOUNTER → 2021-02-26 05:00 | Outpatient (REF) | payer MEDICARE, OTHER, SELFPAY ==
[2021-02-26 08:09] LABS: Absolute Lymphocyte Count 1.21 X10^3/uL (0.83-4.51); Absolute Neutrophil Count 3.3 X10^3/uL (2.0-7.7); Basophil# 0.04 X10^3/uL; Basophil% 0.7 % (0-1); Eosinophil# 0.65 X10^3/uL; Eosinophils% 11.3 % (0-5); Hematocrit 26.8 % (37-47); Hemoglobin 8.3 g/dL (12.0-15.0); Lymphocyte # 1.21 X10^3/ul (0.83-4.51); Mean Corpuscular Hgb 31.3 pg (27.0-32.0); Mean Corpuscular Volume 101.1 fL (81-99); Mean Platelet Vol. 9.8 fl (6.2-12.0); Monocyte# 0.52 X10^3/uL; NRBC Flagged by Analyzer 0 % (0-5); Neutrophil # 3.27 X10^3/uL (2.7-7.7); Neutrophil % 56.6 % (47-70); Platelet Count 331 K/mm3 (150-450); RBC Distribution Width CV 14.8 % (11.6-14.6); RBC Distribution Width SD 54.9 fl (35.1-43.9); Red Blood Count 2.65 M/mm3 (4.2-5.4); White Blood Count 5.8 K/mm3 (4.4-11.0)
== END ==
LOC: OLS.WHLEAS 05:00
PROVIDERS: PCP Internal Medicine; Visit Provider Family Medicine
DX: D50.9 Iron deficiency anemia, unspecified (principal); M62.81 Muscle weakness (generalized); R26.2 Difficulty in walking, not elsewhere classified; R27.8 Other lack of coordination; Z47.1 Aftercare following joint replacement surgery; Z96.652 Presence of left artificial knee joint
CPT/HCPCS: 36415; 85025

== ENCOUNTER → 2021-03-19 05:00 | Outpatient (REF) | payer MEDICARE, OTHER, SELFPAY ==
[2021-03-19 06:56] LABS: Absolute Neutrophil Count 2.6 X10^3/uL (2.0-7.7); Basophil# 0.03 X10^3/uL; Basophil% 0.5 % (0-1); Eosinophil# 1.02 X10^3/uL; Eosinophils% 17.8 % (0-5); Hematocrit 24.4 % (37-47); Hemoglobin 7.9 g/dL (12.0-15.0); Lymphocyte % 26.1 % (19-41); Mean Corp Hgb Conc 32.4 g/dL (32-36); Mean Corpuscular Hgb 33.1 pg (27.0-32.0); Mean Corpuscular Volume 102.1 fL (81-99); Monocyte# 0.52 X10^3/uL; Monocyte% 9.1 % (0-10); NRBC Flagged by Analyzer 0 % (0-5); Neutrophil # 2.63 X10^3/uL (2.7-7.7); Neutrophil % 45.8 % (47-70); Platelet Count 135 K/mm3 (150-450); RBC Distribution Width CV 15.4 % (11.6-14.6); RBC Distribution Width SD 57.8 fl (35.1-43.9); Red Blood Count 2.39 M/mm3 (4.2-5.4); White Blood Count 5.7 K/mm3 (4.4-11.0)
== END ==
LOC: OLS.WHLEAS 05:00
PROVIDERS: PCP Internal Medicine; Visit Provider Family Medicine
DX: D50.9 Iron deficiency anemia, unspecified (principal); M62.81 Muscle weakness (generalized); R26.2 Difficulty in walking, not elsewhere classified; R27.8 Other lack of coordination; Z47.1 Aftercare following joint replacement surgery
CPT/HCPCS: 36415; 85025

== ENCOUNTER → 2021-03-26 05:00 | Outpatient (REF) | payer MEDICARE, OTHER, SELFPAY ==
[2021-03-26 07:42] LABS: Absolute Lymphocyte Count 1.34 X10^3/uL (0.83-4.51); Absolute Neutrophil Count 3.8 X10^3/uL (2.0-7.7); Basophil# 0.04 X10^3/uL; Basophil% 0.6 % (0-1); Eosinophil# 0.54 X10^3/uL; Eosinophils% 8.7 % (0-5); Hematocrit 23.3 % (37-47); Hemoglobin 7.5 g/dL (12.0-15.0); Lymphocyte # 1.34 X10^3/ul (0.83-4.51); Lymphocyte % 21.5 % (19-41); Mean Corp Hgb Conc 32.2 g/dL (32-36); Mean Corpuscular Hgb 32.6 pg (27.0-32.0); Mean Corpuscular Volume 101.3 fL (81-99); Mean Platelet Vol. 10.9 fl (6.2-12.0); Monocyte# 0.48 X10^3/uL; Monocyte% 7.7 % (0-10); NRBC Flagged by Analyzer 0 % (0-5); Neutrophil # 3.79 X10^3/uL (2.7-7.7); Neutrophil % 60.7 % (47-70); Platelet Count 153 K/mm3 (150-450); RBC Distribution Width CV 15.8 % (11.6-14.6); RBC Distribution Width SD 59.5 fl (35.1-43.9); White Blood Count 6.2 K/mm3 (4.4-11.0)
== END ==
LOC: OLS.WHLEAS 05:00
PROVIDERS: PCP Internal Medicine; Visit Provider Family Medicine
DX: D50.9 Iron deficiency anemia, unspecified (principal); M62.81 Muscle weakness (generalized); R26.2 Difficulty in walking, not elsewhere classified; R27.8 Other lack of coordination; Z47.1 Aftercare following joint replacement surgery; Z96.652 Presence of left artificial knee joint
CPT/HCPCS: 36415; 85025

== ENCOUNTER → 2021-04-02 05:00 | Outpatient (REF) | payer MEDICARE, OTHER, SELFPAY ==
[2021-04-02 09:14] LABS: Absolute Lymphocyte Count 1.59 X10^3/uL (0.83-4.51); Absolute Neutrophil Count 2.5 X10^3/uL (2.0-7.7); Basophil# 0.03 X10^3/uL; Basophil% 0.6 % (0-1); Eosinophil# 0.41 X10^3/uL; Eosinophils% 8.2 % (0-5); Hematocrit 24.4 % (37-47); Hemoglobin 7.6 g/dL (12.0-15.0); Lymphocyte # 1.59 X10^3/ul (0.83-4.51); Lymphocyte % 31.7 % (19-41); Mean Corp Hgb Conc 31.1 g/dL (32-36); Mean Corpuscular Hgb 32.6 pg (27.0-32.0); Mean Corpuscular Volume 104.7 fL (81-99); Monocyte# 0.43 X10^3/uL; Monocyte% 8.6 % (0-10); NRBC Flagged by Analyzer 0 % (0-5); Neutrophil # 2.52 X10^3/uL (2.7-7.7); Neutrophil % 50.3 % (47-70); Platelet Count 174 K/mm3 (150-450); RBC Distribution Width CV 15.3 % (11.6-14.6); RBC Distribution Width SD 58.6 fl (35.1-43.9); Red Blood Count 2.33 M/mm3 (4.2-5.4)
== END ==
LOC: OLS.WHLEAS 05:00
PROVIDERS: PCP Internal Medicine; Visit Provider Family Medicine
DX: D50.9 Iron deficiency anemia, unspecified (principal); M62.81 Muscle weakness (generalized); R26.2 Difficulty in walking, not elsewhere classified; R27.8 Other lack of coordination; Z47.1 Aftercare following joint replacement surgery; Z96.652 Presence of left artificial knee joint
CPT/HCPCS: 36415; 85025

== ENCOUNTER → 2021-04-06 05:00 | Outpatient (REF) | payer MEDICARE, OTHER, SELFPAY ==
[2021-04-06 08:17] LABS: Hematocrit 22.4 % (37-47); Hemoglobin 7.2 g/dL (12.0-15.0); Mean Corp Hgb Conc 32.1 g/dL (32-36); Mean Corpuscular Hgb 33.3 pg (27.0-32.0); Mean Corpuscular Volume 103.7 fL (81-99); Mean Platelet Vol. 10.8 fl (6.2-12.0); Platelet Count 156 K/mm3 (150-450); RBC Distribution Width CV 15.1 % (11.6-14.6); RBC Distribution Width SD 56.9 fl (35.1-43.9); Red Blood Count 2.16 M/mm3 (4.2-5.4); White Blood Count 4.4 K/mm3 (4.4-11.0)
[2021-04-06 09:06] LABS: Anion Gap 8 (5-15); BUN 34 mg/dL (7-18); BUN/Creat Ratio 31.8 RATIO (10-20); CRP < 2.90 mg/L (0.0-3.0); Chloride 109 mmol/L (98-107); Creatinine, Serum 1.07 mg/dL (0.55-1.02); EST Glomerular Filtration Rate 53 mL/min (>60); Est Glom Filt Rate - Afr Amer 64 mL/min (>60); Glucose 85 mg/dL (74-106); Sodium Level 139 mmol/L (136-145)
== END ==
LOC: OLS.WHLEAS 05:00
PROVIDERS: PCP Internal Medicine; Visit Provider Family Medicine
DX: T84.54XD Infection and inflammatory reaction due to internal left knee prosthesis, subsequent encounter (principal); M62.81 Muscle weakness (generalized); R26.2 Difficulty in walking, not elsewhere classified; R27.8 Other lack of coordination; I10 Essential (primary) hypertension; Z47.1 Aftercare following joint replacement surgery; Z96.652 Presence of left artificial knee joint
CPT/HCPCS: 36415; 80048; 85027; 86140

== ENCOUNTER 2021-05-01 10:45 | Inpatient (IN) | payer MEDICARE, OTHER, SELFPAY ==
[2021-05-01] VITALS (18 sets, daily range): BP systolic 87–117; BP diastolic 46–78; PULSE 71–83; RESP 15–20; TEMP 36.4–37.3; O2SAT 92–100; BMI 23.8; BMI 22.9
--- NOTE | 2021-05-01 11:23 | EKG12_ITS ---
Test Reason : SOB/CP Blood Pressure : / mmHG Vent. Rate : 082 BPM Atrial Rate : 108 BPM P-R Int : 000 ms QRS Dur : 184 ms QT Int : 486 ms P-R-T Axes : 000 -89 079 degrees QTc Int : 567 ms Ventricular-paced rhythm Abnormal ECG Confirmed by DOMINGO MORENO, KOBI ([id number]), newspaper photo editor DEBBIE BARCENAS ([id number]) on 05/04/2021 9:01:01 AM Referred By: BARBARA/OLGA LIDIA Confirmed By:KOBI LANE MD
--- NOTE | 2021-05-01 11:26 | EDS_ITS ---
HPI History of Present Illness Chief Complaint: Chest Pain Informant: patient and family Narrative Narrative: History was initially obtained through patient which was somewhat limited. She notes she feels short of breath. She has a little bit of chest discomfort but is very mild. She has no nausea vomiting. No abdominal pain. She did state she thinks she has had black bowel movements. She did not think she was on any blood thinners but really was not sure. She is not sure how long her symptoms have been going on. The transfer notes that 2 days. Her daughter feels she looks pale and does look dyspneic. No more details are really obtained. [facility] Medical History CAD (coronary artery disease) Depression GERD (gastroesophageal reflux disease) HTN (hypertension) Hyperlipidemia Iron deficiency anemia Osteoarthritis Pacemaker Parkinson disease Home Medications carbidopa-levodopa 1 tab PO BID 11/29/18 [History Last Taken 03/01/19] ferrous sulfate 65 mg PO BID 11/29/18 [History Last Taken 03/01/19] oxybutynin chloride 5 mg PO TID 11/29/18 [History Last Taken 03/01/19] acetaminophen 1,000 mg PO PRN PRN 03/01/19 [History Last Taken 03/01/19] fluticasone propionate 2 spray NARES DAILY PRN 03/01/19 [History Last Taken Unknown] pantoprazole 40 mg PO BID 03/01/19 [History Last Taken Unknown] potassium chloride 20 meq PO QODAY 03/28/19 [History Last Taken Unknown] aspirin [Aspir-81] 81 mg PO DAILY 05/01/21 [History Last Taken Unknown] atorvastatin 10 mg PO DAILY 05/01/21 [History Last Taken Unknown] docusate sodium 100 mg PO BID 05/01/21 [History Last Taken Unknown] furosemide 20 mg PO QODAY 05/01/21 [History Last Taken Unknown] losartan 25 mg PO DAILY 05/01/21 [History Last Taken Unknown] oxycodone 5 mg PO Q6H PRN 05/01/21 [History Last Taken Unknown] sennosides [senna] 8.6 mg PO QHS 05/01/21 [History Last Taken Unknown] sulfamethoxazole-trimethoprim [Bactrim DS] 1 tab PO BID 05/01/21 [History Last Taken Unknown] Allergy/AdvReac Type Severity Reaction Status Date / Time amoxicillin Allergy Itching Verified 05/01/21 10:52 Penicillins Allergy Itching Verified 05/01/21 10:52 Surgical History History of total knee replacement (TKR) Social History Smoking Status: Never smoker ROS ROS ED ROS Narrative Patient is really not the best informant for details or timing. Review of Systems ROS Unobtainable: due to mental status Constitutional Constitutional ED: Denies fever(s) Eyes Eyes: Denies blurry vision ENT ENT ED: Denies sore throat Cardiovascular Cardiovascular: Reports chest pain; Denies palpitations Respiratory/Chest Respiratory/Chest: Reports dyspnea; Denies cough Gastrointestinal Gastrointestinal: Reports melena; Denies abdominal pain, diarrhea, nausea or vomiting Genitourinary Genitourinary ED: Denies dysuria Musculoskeletal Musculoskeletal: Denies back pain Integumentary Denies rash Neurologic Neurologic: Denies headache(s) Hematologic/Lymphatic Hematologic/Lymphatic: Denies easy bleeding or easy bruising Allergic/Immunologic Allergic/Immunologic ED: Denies mouth swelling or urticaria EXAM Physical Exam Const Vital Signs: 05/01/21 10:49 05/01/21 10:56 05/01/21 10:58 Temperature 97.8 F Temperature Source Oral Pulse Rate 83 Respiratory Rate 20 H Respiratory Effort Short of Breath Blood Pressure 104/46 L Blood Pressure Mean 65 Pulse Ox 92 97 Oxygen Delivery Method Room Air Nasal Cannula Oxygen Flow Rate (L/min) 2 05/01/21 11:56 05/01/21 12:00 05/01/21 13:00 Temperature 97.8 F 97.8 F 97.8 F Temperature Source Oral Oral Oral Pulse Rate 77 78 72 Respiratory Rate 19 H 15 16 Respiratory Effort Blood Pressure 87/61 L 100/72 102/55 L Blood Pressure Mean 69 81 70 Pulse Ox 96 100 100 Oxygen Delivery Method Nasal Cannula Room Air Nasal Cannula Oxygen Flow Rate (L/min) 2 2 2 05/01/21 14:00 Temperature 97.8 F Temperature Source Temporal Pulse Rate 73 Respiratory Rate 17 Respiratory Effort Blood Pressure 104/71 Blood Pressure Mean 82 Pulse Ox 100 Oxygen Delivery Method Nasal Cannula Oxygen Flow Rate (L/min) 2 Patient does have increased rate and work of breathing. But she is able to carry on a conversation. Sats are 100%. She does look pale just walking into the room. Positive well nourished and well developed General Appearance ED: well developed and pallor Eyes General Eye ED: Yes pale conjunctiva; Negative for scleral icterus Neck no meningeal signs and no JVD Resp No normal respiratory effort and clear to auscultation bilaterally Effort and Inspection: Negative for pain with movement Auscultation: Negative for rales, rhonchi, wheezes or diminished lung sounds Cardio regular rate and regular rhythm GI non-tender and non-distended Palpation: soft Back/Spine no CVA tenderness and normal to inspection Extremity normal to inspection Extremity Narrative: Patient has a splint on her left lower leg. But there is no sign of infection or erythema. She has had prior surgery on the knees. General Extremety ED: Yes tenderness Neuro Sensorium / Orientation: alert Psych mental status grossly normal Skin General Skin Exam: pallor Rashes: no rashes MDM MDM MDM Narrative Medical decision making narrative: Was rechecked after oxygen and just the oxygen really helped her symptoms. Her dyspnea was really gone. She is not having pain now. She looks much more comfortable. She still looks pale. Her blood pressure has been stable about 105. I did do a rectal exam. There is some small dried hemorrhoids but no sign of inflammation or acute red bleeding. She does have a very dark and almost black stool but I would not say that this is true melena. Her blood work shows worsening anemia. She has been running hemoglobins at 7-8 but she is now 5.5. I think she likely has some slow GI bleed. She is on iron also. BUN was slightly elevated but her BUN was much higher than is normal at 64. LFTs were overall unremarkable. Lactate was slightly elevated. Troponin was negative. EKG showed paced rhythm. I did discuss risks and benefits of transfusion. It sounds like she has had these before. It has been for some time though. I think is important with her dyspnea pain and significant anemia. I discussed case with hospitalist and patient will be admitted. Lab Data Attestation: I reviewed the patient's lab results. Labs: Laboratory Results - last 24 hr 05/01/21 05/01/21 05/01/21 12:10 12:10 12:10 WBC 7.2 RBC 1.64 L Hgb 5.5 L* Hct 17.6 L MCV 107.3 H MCH 33.5 H MCHC 31.3 L RDW Std Deviation 59.5 H RDW Coeff of Erma 15.2 H Plt Count 212 MPV 10.9 Immature Gran % (Auto) 1.100 H Neut % (Auto) 78.1 H Lymph % (Auto) 12.7 L Carver % (Auto) 7.2 Eos % (Auto) 0.6 Baso % (Auto) 0.3 Absolute Neuts (auto) 5.6 Absolute Lymphs (auto) 0.91 Nucleated RBC % 0 Diff Path Review May foll Hypochromasia 2+ Anisocytosis 1+ Sodium 140 Potassium 3.9 Chloride 111 H Carbon Dioxide 19.0 L Anion Gap 10 BUN 64 H Creatinine 1.39 H Estim Creat Clear Calc 30.50 Est GFR (MDRD) Af Amer 47 L Est GFR (MDRD) Non-Af 39 L BUN/Creatinine Ratio 46.0 H Glucose 107 H Lactic Acid Calcium 7.7 L Total Bilirubin 0.30 AST 25 ALT 8 L Alkaline Phosphatase 152 H Troponin I High Sens 16 Total Protein 4.1 L Albumin 1.7 L Globulin 2.4 Albumin/Globulin Ratio 0.7 L Blood Type AB NEGATIVE Antibody Screen NEGATIVE Crossmatch See Detail 05/01/21 12:10 WBC RBC Hgb Hct MCV MCH MCHC RDW Std Deviation RDW Coeff of Erma Plt Count MPV Immature Gran % (Auto) Neut % (Auto) Lymph % (Auto) Carver % (Auto) Eos % (Auto) Baso % (Auto) Absolute Neuts (auto) Absolute Lymphs (auto) Nucleated RBC % Diff Path Review Hypochromasia Anisocytosis Sodium Potassium Chloride Carbon Dioxide Anion Gap BUN Creatinine Estim Creat Clear Calc Est GFR (MDRD) Af Amer Est GFR (MDRD) Non-Af BUN/Creatinine Ratio Glucose Lactic Acid 2.7 H* Calcium Total Bilirubin AST ALT Alkaline Phosphatase Troponin I High Sens Total Protein Albumin Globulin Albumin/Globulin Ratio Blood Type Antibody Screen Crossmatch Radiography Diagnostic Testing: Clinical Impression(s) from Imaging Studies Chest X-Ray 05/01/21 11:30 IMPRESSION: No active pulmonary disease. Left sided pacemaker new since previous exam. Electronically Signed: Negrito Becker, at 11:51 EST Tel , Service support , EKG Initial EKG: Comments: EKG done for chest pain and dyspnea read by me shows paced rhythm with overall rate of 82. No indication of Sgarbosa criteria. Typical bundle branch pattern. Interpretation limited with pacer. Discharge Plan Triage Chief Complaint: Chest Pain Other Complaint: Shortness of Breath ED Provider: Renzo Yun Dx/Rx/DC Orders Clinical Impression: GI bleed, Acute blood loss anemia, Hypotension, Acidosis, lactic Prescriptions: No Action ferrous sulfate 325 MG tablet 65 mg PO BID RF: 0 carbidopa-levodopa 1 EACH tablet 1 tab PO BID RF: 0 oxybutynin chloride 5 MG tablet 5 mg PO TID RF: 0 acetaminophen 500 MG tablet 1,000 mg PO PRN PRN (Reason: Pain Score 1-10/10) RF: 0 fluticasone propionate 50 spray,suspension 2 spray NARES DAILY PRN (Reason: Allergies) RF: 0 pantoprazole 40 MG tablet 40 mg PO BID RF: 0 potassium chloride 20 MEQ tablet 20 meq PO QODAY RF: 0 sennosides [senna] 8.6 mg Tablet 8.6 mg PO QHS RF: 0 atorvastatin 10 mg tablet 10 mg PO DAILY RF: 0 sulfamethoxazole-trimethoprim [Bactrim DS] 800-160 mg Tablet 1 tab PO BID RF: 0 aspirin [Aspir-81] 81 mg Tablet,Delayed Release (Dr/Ec) 81 mg PO DAILY RF: 0 losartan 25 mg tablet 25 mg PO DAILY RF: 0 furosemide 20 mg tablet 20 mg PO QODAY RF: 0 docusate sodium 100 mg Tablet 100 mg PO BID RF: 0 oxycodone 5 mg Tablet 5 mg PO Q6H PRN (Reason: Pain) RF: 0 Primary Care Provider: Vianca Baca Referrals: Vianca Baca MD [Primary Care Provider] - Disposition Disposition: Acute Care Hospital [facility]
--- NOTE | 2021-05-01 11:30 | RAD_ITS ---
STUDY: X-RAY CHEST REASON FOR EXAM: Female, 75 years old. Shortness of breath TECHNIQUE: Single AP portable view of the chest. COMPARISON: 11/29/2018. FINDINGS: Dual-chamber left-sided pacemaker new since previous examination. No focal infiltrate is seen. There is no demonstrated pleural abnormality. Normal size heart. Normal mediastinum and wale. Normal visualized pulmonary arteries. There is atherosclerotic calcification of the aortic arch with tortuosity. Dextroscoliosis of the thoracic spine. Right shoulder arthroplasty. There is no demonstrated abnormality of the visualized soft tissue structures of the upper abdomen. RAD/Chest 1 View (Portable) IMPRESSION: No active pulmonary disease. Left sided pacemaker new since previous exam. Electronically Signed: Negrito Becker, at 11:51 EST Tel , Service support ,
[2021-05-01 12:30] LABS: Absolute Lymphocyte Count 0.91 X10^3/uL (0.83-4.51); Absolute Neutrophil Count 5.6 X10^3/uL (2.0-7.7); Basophil# 0.02 X10^3/uL; Basophil% 0.3 % (0-1); Eosinophil# 0.04 X10^3/uL; Eosinophils% 0.6 % (0-5); Hematocrit 17.6 % (37-47); Lymphocyte # 0.91 X10^3/ul (0.83-4.51); Lymphocyte % 12.7 % (19-41); Mean Corp Hgb Conc 31.3 g/dL (32-36); Mean Corpuscular Hgb 33.5 pg (27.0-32.0); Mean Corpuscular Volume 107.3 fL (81-99); Mean Platelet Vol. 10.9 fl (6.2-12.0); Monocyte# 0.52 X10^3/uL; Monocyte% 7.2 % (0-10); NRBC Flagged by Analyzer 0 % (0-5); Neutrophil # 5.61 X10^3/uL (2.7-7.7); Neutrophil % 78.1 % (47-70); POSITIVE COUNT YES; Platelet Count 212 K/mm3 (150-450); RBC Distribution Width CV 15.2 % (11.6-14.6); RBC Distribution Width SD 59.5 fl (35.1-43.9); Red Blood Count 1.64 M/mm3 (4.2-5.4); White Blood Count 7.2 K/mm3 (4.4-11.0)
[2021-05-01 12:32] LABS: Differential Indicated SCAN CRITERIA MET; Hemoglobin 5.5 g/dL (12.0-15.0)
--- NOTE | 2021-05-01 13:07 | ED.RN ---
NURSE AT [facility] UPDATED ON PT'S STATUS
[2021-05-01 13:10] LABS: Anisocytosis 1+; Hypochromasia 2+
[2021-05-01 13:14] LABS: Lactic Acid 2.7 mmol/L (0.4-1.9)
[2021-05-01 13:18] LABS: ALB/GLOB Ratio 0.7 RATIO (0.9-2.4); AST(SGOT) 25 U/L (15-37); Alanine Aminotransfer ALT/SGPT 8 U/L (13-56); Albumin, Serum 1.7 g/dL (3.2-5.0); Alkaline Phosphatase 152 U/L (45-117); Anion Gap 10 (5-15); BUN 64 mg/dL (7-18); Calcium,Total 7.7 mg/dL (8.5-10.1); Chloride 111 mmol/L (98-107); Creatinine, Serum 1.39 mg/dL (0.55-1.02); EST Glomerular Filtration Rate 39 mL/min (>60); Est Glom Filt Rate - Afr Amer 47 mL/min (>60); Globulin 2.4 g/dL (2.2-4.2); Glucose 107 mg/dL (74-106); Potassium 3.9 mmol/L (3.5-5.1); Protein, Total 4.1 g/dL (6.4-8.2); Sodium Level 140 mmol/L (136-145); Troponin-I HS 16 pg/mL (3.0-54.0)
--- NOTE | 2021-05-01 15:53 | PCM.HP.STD ---
[facility] - General General Date of Admission: 05/01/21 HPI Narrative DAVID PORRAS, is a 75 F who presents with shortness of breath over the chest discomfort. She is a little bit altered according to the daughter likely secondary to her anemia. She does have a baseline iron deficiency anemia that is being managed as an outpatient by Dr. Caruso however she is generally around a baseline of 8 and her hemoglobin but is currently 5.5. According to the daughter over the last week or so she has been looking more pale and has chronically dark stools secondary to her iron supplementation. She was noted to have a possible GI bleed a few years ago attributed to her hemorrhoids. Otherwise she denies any lightheadedness or dizziness at this time. She has not had any nausea or vomiting to indicate an upper GI source. She denies any abdominal pain. [facility] Medical History CAD (coronary artery disease) Depression GERD (gastroesophageal reflux disease) HTN (hypertension) Hyperlipidemia Iron deficiency anemia Osteoarthritis Pacemaker Parkinson disease Home Medications carbidopa-levodopa 1 tab PO BID 11/29/18 [History Last Taken 03/01/19] ferrous sulfate 65 mg PO BID 11/29/18 [History Last Taken 03/01/19] oxybutynin chloride 5 mg PO TID 11/29/18 [History Last Taken 03/01/19] acetaminophen 1,000 mg PO PRN PRN 03/01/19 [History Last Taken 03/01/19] fluticasone propionate 2 spray NARES DAILY PRN 03/01/19 [History Last Taken Unknown] pantoprazole 40 mg PO BID 03/01/19 [History Last Taken Unknown] potassium chloride 20 meq PO QODAY 03/28/19 [History Last Taken Unknown] aspirin [Aspir-81] 81 mg PO DAILY 05/01/21 [History Last Taken Unknown] atorvastatin 10 mg PO DAILY 05/01/21 [History Last Taken Unknown] docusate sodium 100 mg PO BID 05/01/21 [History Last Taken Unknown] furosemide 20 mg PO QODAY 05/01/21 [History Last Taken Unknown] losartan 25 mg PO DAILY 05/01/21 [History Last Taken Unknown] oxycodone 5 mg PO Q6H PRN 05/01/21 [History Last Taken Unknown] sennosides [senna] 8.6 mg PO QHS 05/01/21 [History Last Taken Unknown] sulfamethoxazole-trimethoprim [Bactrim DS] 1 tab PO BID 05/01/21 [History Last Taken Unknown] Allergy/AdvReac Type Severity Reaction Status Date / Time amoxicillin Allergy Itching Verified 05/01/21 10:52 Penicillins Allergy Itching Verified 05/01/21 10:52 Family History (Updated 05/01/21 @ 15:[address] Prabhakar Kimball MD) Other Diabetes Hypertension Surgical History History of total knee replacement (TKR) Social History Smoking Status: Never smoker ROS Constitutional Constitutional: Reports chills; Denies fatigue, fever(s) or malaise Eyes Eyes: Denies blurry vision ENT HEENT: Denies headache(s) or nasal discharge Cardiovascular Cardiovascular: Denies chest pain, dyspnea on exertion or syncope Respiratory/Chest Respiratory/Chest: Reports shortness of breath at rest; Denies cough or shortness of breath with exertion Gastrointestinal Gastrointestinal: Denies constipation, diarrhea, nausea or vomiting Genitourinary Genitourinary: Denies dysuria Neurologic Neurologic: Denies focal weakness, numbness or tremor(s) Psychiatric Psychiatric: Denies anxiety or depression Vital Signs Vital Signs Vital Signs: 05/01/21 10:49 05/01/21 10:56 05/01/21 10:58 Temperature 97.8 F Temperature Source Oral Pulse Rate 83 Respiratory Rate 20 H Respiratory Effort Short of Breath Blood Pressure 104/46 L Blood Pressure Mean 65 Blood Pressure Source Blood Pressure Position Blood Pressure Location Pulse Ox 92 97 Oxygen Delivery Method Room Air Nasal Cannula Oxygen Flow Rate (L/min) 2 05/01/21 11:56 05/01/21 12:00 05/01/21 13:00 Temperature 97.8 F 97.8 F 97.8 F Temperature Source Oral Oral Oral Pulse Rate 77 78 72 Respiratory Rate 19 H 15 16 Respiratory Effort Blood Pressure 87/61 L 100/72 102/55 L Blood Pressure Mean 69 81 70 Blood Pressure Source Blood Pressure Position Blood Pressure Location Pulse Ox 96 100 100 Oxygen Delivery Method Nasal Cannula Room Air Nasal Cannula Oxygen Flow Rate (L/min) 2 2 2 05/01/21 14:00 05/01/21 15:06 05/01/21 15:50 Temperature 97.8 F 97.5 F L 98.2 F Temperature Source Temporal Temporal Oral Pulse Rate 73 71 76 Respiratory Rate 17 17 19 H Respiratory Effort Blood Pressure 104/71 101/54 L 97/78 Blood Pressure Mean 82 69 84 Blood Pressure Source Monitor Blood Pressure Position Semi-Fowlers Blood Pressure Location Right Arm Pulse Ox 100 99 100 Oxygen Delivery Method Nasal Cannula Nasal Cannula Nasal Cannula Oxygen Flow Rate (L/min) 2 2 3 Weight Weight: 143 lb 4.807 oz Body Mass Index (BMI) 23.8 Physical Exam Const alert and no apparent distress General Appearance: cooperative Orientation / Consciousness: confused HEENT normocephalic and moist oral mucous membranes HEENT Narrative: Pale Eyes PERRL, EOMs intact bilaterally and conjunctivae normal Neck supple and no JVD Resp normal respiratory effort, no retractions, no use of accessory muscles and clear to auscultation bilaterally Auscultation: Negative for crackles, rales, rhonchi or wheezes Cardio regular rate, regular rhythm, S1 normal heart sound, S2 normal heart sound and no murmurs GI soft to palpation, non-tender and non-distended; Negative for hepatosplenomegaly Extremity no clubbing, cyanosis or edema Skin no rashes or lesions noted Neuro no focal motor deficits and no sensory deficits noted Psych affect normal Appearance: appropriate Results Lab / Micro Data Result Diagrams: 05/01/21 12:10 05/01/21 12:10 Labs: Laboratory Results - last 24 hr 05/01/21 12:10: WBC 7.2, RBC 1.64 L, Hgb 5.5 L*, Hct 17.6 L, MCV 107.3 H, MCH 33.5 H, MCHC 31.3 L, RDW Std Deviation 59.5 H, RDW Coeff of Erma 15.2 H, Plt Count 212, MPV 10.9, Immature Gran % (Auto) 1.100 H, Neut % (Auto) 78.1 H, Lymph % (Auto) 12.7 L, [place] % (Auto) 7.2, Eos % (Auto) 0.6, Baso % (Auto) 0.3, Absolute Neuts (auto) 5.6, Absolute Lymphs (auto) 0.91, Nucleated RBC % 0, Diff Path Review May foll, Hypochromasia 2+, Anisocytosis 1+ 05/01/21 12:10: Sodium 140, Potassium 3.9, Chloride 111 H, Carbon Dioxide 19.0 L, Anion Gap 10, BUN 64 H, Creatinine 1.39 H, Estim Creat Clear Calc 30.50, Est GFR (MDRD) Af Amer 47 L, Est GFR (MDRD) Non-Af 39 L, BUN/Creatinine Ratio 46.0 H, Glucose 107 H, Calcium 7.7 L, Total Bilirubin 0.30, AST 25, ALT 8 L, Alkaline Phosphatase 152 H, Troponin I High Sens 16, Total Protein 4.1 L, Albumin 1.7 L, Globulin 2.4, Albumin/Globulin Ratio 0.7 L 05/01/21 12:10: Blood Type AB NEGATIVE, Antibody Screen NEGATIVE, Crossmatch See Detail 05/01/21 12:10: Lactic Acid 2.7 H* Micro: Microbiology 05/01/21 13:30 Stool Stool Occult Blood (KYLE) - Final Occult Blood Positive 05/01/21 11:40 Nasal Secretion SARS-CoV-2 Antigen (Rapid) - Final Radiology Impression Chest X-Ray 05/01/21 11:30 IMPRESSION: No active pulmonary disease. Left sided pacemaker new since previous exam. Electronically Signed: Negrito Rosita, at 11:51 EST Tel , Service support , Assessment & Plan Assessment/Plan (1) Acute blood loss anemia: PLAN: 1. Acute blood loss anemia in the setting of chronic iron deficiency anemia/GERD ?Blood pressures are okay, her mean arterial pressures are well over 65 ?She is going to have 2 units transfused the first unit is already started to go in in the ER ?We will consult gastroenterology in the morning for a possible upper and lower scope ?Continue with PPI and iron replacement ?We will check a posttransfusion H&H and CBC in the morning ?We will continue with her blood transfusions set of IV fluids at this time ?Covid antigen was negative on admission ?Stool occult is positive, it was negative at the end of February. Given her confusion she is unable to tell me how long she has been noticing darker stools or if she has been noticing bright red blood 2. HTN/HLD ?Blood pressures are low with systolics in the 90s however her maps over 65 ?We will hold her losartan and her Lasix ?Continue with Lipitor ?We will hold her aspirin in the setting of GI bleed 3. Parkinson's ?Stable ?Continue with Sinemet DVT: SCDs Charges/Coding Visit Charges Inpatient E&M: 53187 Init Hosp L3
[2021-05-01 16:19] LABS: Reflex Lactate? Y
--- NOTE | 2021-05-01 17:50 | EX.PCM.CON.G ---
HPI Consult Data Date of Consult: 05/01/21 HPI Narrative HPI Narrative: DAVID PORRAS, is a 75 F who presents with shortness of breath over the chest discomfort. 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 She does receive iron transfusions. In 1999 she underwent a gastric bypass and had a bleed at the gastrojejunal anastomosis as per her daughter. She recovered from that and did well until the last several years when she is becoming progressively more anemic. She had a GI bleed in 2019. She underwent an upper and lower endoscopy and no etiology of the GI bleed was seen. It was believed to be possibly in the small bowel or gastric pouch. She does admit to worsening black stools recently. Her stools were checked and she was Hemoccult positive. Her hemoglobin was 9.5 and in the ED was discovered to be 5.5. She denies any abdominal pain and most history is taken from the patient's daughter. [facility] Medical History (Updated 05/01/21 @ 17:08 by Winsome Ching) Anxiety CAD (coronary artery disease) Depression GERD (gastroesophageal reflux disease) HTN (hypertension) Hyperlipidemia Iron deficiency anemia Kidney stones Osteoarthritis Pacemaker Parkinson disease Restless legs Rheumatoid arthritis Home Medications carbidopa-levodopa 1 tab PO BID 11/29/18 [History Last Taken 05/01/21] ferrous sulfate 325 mg PO DAILY 11/29/18 [History Last Taken 03/01/19] oxybutynin chloride 10 mg PO DAILY 11/29/18 [History Last Taken 03/01/19] acetaminophen 1,000 mg PO Q8H PRN PRN 03/01/19 [History Last Taken 03/01/19] fluticasone propionate 2 spray NARES DAILY PRN 03/01/19 [History Last Taken Unknown] pantoprazole 40 mg PO BID 03/01/19 [History Last Taken 05/01/21] potassium chloride 10 meq PO QODAY 03/28/19 [History Last Taken Unknown] aspirin [Aspir-81] 81 mg PO BID 05/01/21 [History Last Taken Unknown] atorvastatin 10 mg PO QHS 05/01/21 [History Last Taken Unknown] bisacodyl [Dulcolax (bisacodyl)] 10 mg PO DAILY 05/01/21 [History Last Taken Unknown] cholecalciferol (vitamin D3) [Vitamin D3] 50 mcg PO DAILY 05/01/21 [History Last Taken Unknown] citalopram 10 mg PO DAILY 05/01/21 [History Last Taken Unknown] copper gluconate 4 mg PO DAILY 05/01/21 [History Last Taken Unknown] docusate sodium 100 mg PO BID 05/01/21 [History Last Taken Unknown] doxycycline hyclate [Vibramycin] 100 mg PO BID 05/01/21 [History Last Taken Unknown] furosemide 20 mg PO QODAY 05/01/21 [History Last Taken Unknown] losartan 25 mg PO DAILY 05/01/21 [History Last Taken Unknown] oxycodone 5 mg PO Q6H PRN 05/01/21 [History Last Taken Unknown] sennosides [senna] 8.6 mg PO QHS 05/01/21 [History Last Taken Unknown] zinc 50 mg PO DAILY 05/01/21 [History Last Taken Unknown] Allergy/AdvReac Type Severity Reaction Status Date / Time amoxicillin Allergy Itching Verified 05/01/21 10:52 Penicillins Allergy Itching Verified 05/01/21 10:52 Family History (Updated 05/01/21 @ 15:[address] Prabhakar Kimball MD) Other Diabetes Hypertension Surgical History History of total knee replacement (TKR) Social History Smoking Status: Never smoker ROS Respiratory/Chest Respiratory/Chest: Reports dry cough and dyspnea on exertion Gastrointestinal Gastrointestinal: Reports melena and rectal bleeding Physical Exam Const alert General Appearance: cooperative Orientation / Consciousness: oriented to person HEENT hearing grossly normal bilaterally Head and Scalp: normal to inspection Face and Sinus: face symmetric Nose: external nose normal Mouth: oral and palatal mucosa normal Eyes conjunctivae normal General Eye: normal appearance of both eyes Neck full ROM General: normal visual inspection Lymph Lymphatic: no lymphadenopathy noted Chest inspection of chest normal and palpation of chest normal Chest: symmetrical chest wall rise Resp normal respiratory effort Effort and Inspection: able to speak in complete sentences Cardio regular rate GI non-distended Percussion: normal to percussion Rectal Exam: deferred Neuro Speech: speech normal Gait (Neuro): normal gait Lab / Micro Data Result Diagrams: 05/01/21 12:10 05/01/21 12:10 Labs: Laboratory Results - last 24 hr 05/01/21 12:10: WBC 7.2, RBC 1.64 L, Hgb 5.5 L*, Hct 17.6 L, MCV 107.3 H, MCH 33.5 H, MCHC 31.3 L, RDW Std Deviation 59.5 H, RDW Coeff of Erma 15.2 H, Plt Count 212, MPV 10.9, Immature Gran % (Auto) 1.100 H, Neut % (Auto) 78.1 H, Lymph % (Auto) 12.7 L, [place] % (Auto) 7.2, Eos % (Auto) 0.6, Baso % (Auto) 0.3, Absolute Neuts (auto) 5.6, Absolute Lymphs (auto) 0.91, Nucleated RBC % 0, Diff Path Review May foll, Hypochromasia 2+, Anisocytosis 1+ 05/01/21 12:10: Sodium 140, Potassium 3.9, Chloride 111 H, Carbon Dioxide 19.0 L, Anion Gap 10, BUN 64 H, Creatinine 1.39 H, Estim Creat Clear Calc 30.50, Est GFR (MDRD) Af Amer 47 L, Est GFR (MDRD) Non-Af 39 L, BUN/Creatinine Ratio 46.0 H, Glucose 107 H, Calcium 7.7 L, Total Bilirubin 0.30, AST 25, ALT 8 L, Alkaline Phosphatase 152 H, Troponin I High Sens 16, Total Protein 4.1 L, Albumin 1.7 L, Globulin 2.4, Albumin/Globulin Ratio 0.7 L 05/01/21 12:10: Blood Type AB NEGATIVE, Antibody Screen NEGATIVE, Crossmatch See Detail 05/01/21 12:10: Lactic Acid 2.7 H* Micro: Microbiology 05/01/21 13:30 Stool Stool Occult Blood (KYLE) - Final Occult Blood Positive 05/01/21 11:40 Nasal Secretion SARS-CoV-2 Antigen (Rapid) - Final Radiology Impression Chest X-Ray 05/01/21 11:30 IMPRESSION: No active pulmonary disease. Left sided pacemaker new since previous exam. Electronically Signed: Negrito Becker, at 11:51 EST Tel , Service support , Assessment & Plan Assessment/Plan (1) Anemia: PLAN: Her anemia is multifactorial, from a gastric bypass which would stopped absorption iron, B12, folate and lead to a combined iron deficiency anemia and macrocytic anemia. (2) Acute blood loss anemia: PLAN: I suspect that she has an intermittent GI bleed in the small bowel. This being either in the gastric remnant or the small bowel. She should undergo deep enteroscopy and if that is negative she will need a capsule endoscopy. Thank you for allowing me to participate in the care of this patient. Charges/Coding Visit Charges Inpatient E&M: 27136 Init Hosp L3
[2021-05-01] MEDS: Carbidopa/Levodopa 25/100 Tablet PO (18:06)
[2021-05-01 18:20] LABS: Lactic Acid 1.9 mmol/L (0.4-1.9)
[2021-05-01] MEDS: Atorvastatin Calcium 10 MG Tablet PO (22:13)
[2021-05-01] MEDS: Pantoprazole Sodium 40 MG Tablet PO (22:13)
[2021-05-01] MEDS: Docusate Sodium 100 MG Capsule PO (22:13)
[2021-05-02] VITALS (14 sets, daily range): BP systolic 112–135; BP diastolic 42–75; PULSE 66–84; RESP 16–18; TEMP 36.2–37; O2SAT 96–100; BMI 23.6
[2021-05-02 03:49] LABS: Absolute Lymphocyte Count 1.62 X10^3/uL (0.83-4.51); Absolute Neutrophil Count 5.9 X10^3/uL (2.0-7.7); Basophil# 0.02 X10^3/uL; Basophil% 0.2 % (0-1); Eosinophils% 1.2 % (0-5); Hematocrit 25.2 % (37-47); Hemoglobin 8.3 g/dL (12.0-15.0); Lymphocyte # 1.62 X10^3/ul (0.83-4.51); Lymphocyte % 19.1 % (19-41); Mean Corp Hgb Conc 32.9 g/dL (32-36); Mean Corpuscular Hgb 31.7 pg (27.0-32.0); Mean Corpuscular Volume 96.2 fL (81-99); Monocyte# 0.71 X10^3/uL; Monocyte% 8.4 % (0-10); NRBC Flagged by Analyzer 0 % (0-5); Neutrophil % 69.8 % (47-70); Platelet Count 145 K/mm3 (150-450); RBC Distribution Width SD 58.5 fl (35.1-43.9); Red Blood Count 2.62 M/mm3 (4.2-5.4); White Blood Count 8.5 K/mm3 (4.4-11.0)
[2021-05-02 03:56] LABS: International Normalized Ratio 1.4; Partial Thromboplast Time 32.9 Seconds (24.1-36.2); Prothrombin Time (Protime)PT. 16.4 SECONDS (11.7-14.9)
[2021-05-02 04:15] LABS: Anion Gap 9 (5-15); BUN 66 mg/dL (7-18); BUN/Creat Ratio 50.8 RATIO (10-20); Calcium,Total 7.1 mg/dL (8.5-10.1); Chloride 110 mmol/L (98-107); EST Glomerular Filtration Rate 42 mL/min (>60); Est Glom Filt Rate - Afr Amer 51 mL/min (>60); Estimated Creatinine Clearance 32.61 ml/min; Glucose 91 mg/dL (74-106); Potassium 3.9 mmol/L (3.5-5.1); Sodium Level 137 mmol/L (136-145)
--- NOTE | 2021-05-02 07:57 | NURSING ---
report called to Grace in Endo re:pt pacemaker
--- NOTE | 2021-05-02 09:16 | NURSING ---
pt remains off unit for testing/procedure
--- NOTE | 2021-05-02 09:58 | OP.EGD_ITS ---
Patient Name: Maia Nieto Procedure Date: 05/02/2021 8:58 AM Date of : 1945 Age: 75 Procedure: Upper GI endoscopy Indications: Recent gastrointestinal bleeding Providers: Todd Ma DO Medicines: See the Anesthesia note for documentation of the administered medications Patient Profile: This is a 75 year old female. Refer to note in patient chart for documentation of history and physical. Patient has symptoms. Complications: No immediate complications. Procedure: Pre-Anesthesia Assessment: - Prior to the procedure, a History and Physical was performed, and patient medications and allergies were reviewed. The patient is competent. The risks and benefits of the procedure and the sedation options and risks were discussed with the patient. All questions were answered and informed consent was obtained. Patient identification and proposed procedure were verified by the physician in the pre-procedure area. Mental Status Examination: alert and oriented. Airway Examination: normal oropharyngeal airway and neck mobility. Respiratory Examination: clear to auscultation. CV Examination: normal. Prophylactic Antibiotics: The patient does not require prophylactic antibiotics. Prior Anticoagulants: The patient has taken no previous anticoagulant or antiplatelet agents. ASA Grade Assessment: II - A patient with mild systemic disease. After reviewing the risks and benefits, the patient was deemed in satisfactory condition to undergo the procedure. The anesthesia plan was to use moderate sedation / analgesia (conscious sedation). Immediately prior to administration of medications, the patient was re-assessed for adequacy to receive sedatives. The heart rate, respiratory rate, oxygen saturations, blood pressure, adequacy of pulmonary ventilation, and response to care were monitored throughout the procedure. The physical status of the patient was re-assessed after the procedure. After obtaining informed consent, the endoscope was passed under direct vision. Throughout the procedure, the patient's blood pressure, pulse, and oxygen saturations were monitored continuously. The Colonoscope was introduced through the and advanced to the. The gastroscope was introduced through the mouth, and advanced to the afferent and efferent jejunal loops. The upper GI endoscopy was accomplished without difficulty. The patient tolerated the procedure well. Moderate Sedation: Moderate (conscious) sedation was administered by the endoscopy nurse and supervised by the endoscopist. The patient's oxygen saturation, heart rate, blood pressure and response to care were monitored. Total physician intraservice time was 15 minutes. Moderate (conscious) sedation was administered by the endoscopy nurse and supervised by the endoscopist. The patient's oxygen saturation, heart rate, blood pressure and response to care were monitored. Total physician intraservice time was 15 minutes. Scope In: 9:12:43 AM Scope Out: 9:35:37 AM Total Procedure Duration Time 0 hours 22 minutes 54 seconds Findings: The proximal esophagus, mid esophagus and distal esophagus were normal. 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 The gastrojejunal anastomosis was characterized by healthy appearing mucosa. This was traversed. The [id number]-[id number] limb was characterized by healthy appearing mucosa. The jejunojejunal anastomosis was characterized by erythema and friable mucosa. The qdjnozoa-eu-gloyjcj limb was not examined as it could not be found. Impression: - Normal proximal esophagus, mid esophagus and distal esophagus. - Geo-en-Y gastrojejunostomy with gastrojejunal anastomosis characterized by healthy appearing mucosa. - No specimens collected. Recommendation: - Return patient to [facility] for ongoing care. - Advance diet as tolerated. - Continue present medications. - Return to my office in 2 weeks. - Repeat upper endoscopy at the next available appointment for retreatment. - Return to GI office in 2 weeks. Procedure Code(s): --- Professional --- 71036, Esophagogastroduodenoscopy, flexible, transoral; diagnostic, including collection of specimen(s) by brushing or washing, when performed (separate procedure) 94365, 59, Moderate sedation services provided by the same physician or other qualified health healthcare educator performing the diagnostic or therapeutic service that the sedation supports, requiring the presence of an independent trained observer to assist in the monitoring of the patient's level of consciousness and physiological status; initial 15 minutes of intraservice time, patient age 5 years or older [address], 59, Moderate sedation services provided by the same physician or other qualified health healthcare educator performing the diagnostic or therapeutic service that the sedation supports, requiring the presence of an independent trained observer to assist in the monitoring of the patient's level of consciousness and physiological status; initial 15 minutes of intraservice time, patient age 5 years or older CPT copyright 2017 [employer]. All rights reserved. The codes documented in this report are preliminary and upon veterinary nurse review may be revised to meet current compliance requirements. Todd Ma DO 05/02/2021 9:58:07 AM This report has been signed electronically. Number of Addenda: 1 Note Initiated On: 05/02/2021 8:58 AM Addendum Number: 1 Addendum Date: 02/04/2022 6:36:18 AM MAC was used instead of moderate sedation for this patient. Todd Ma DO 02/04/2022 6:36:22 AM This report has been signed electronically.
--- NOTE | 2021-05-02 11:27 | NURSING ---
discussed patient and postop report w/ primary RN. no mention if pacer check as requested. talked with Anesth. Dr. Edd Grier whom states only required if cautery was utilized by Dr. Ma during procedure but he is unaware if was utilized. coretext sent to Dr. Ma.
--- NOTE | 2021-05-02 12:02 | PN.HOSP_ITS ---
Subjective Subjective Doing well, had an EGD this morning which demonstrated friable mucosa at the JJ junction from her gastric bypass Objective Data Objective Data Vital Signs: Vital Signs Temp Pulse Resp BP Pulse Ox 97.8 F 68 18 118/60 100 05/02/21 10:15 05/02/21 10:15 05/02/21 10:15 05/02/21 10:15 05/02/21 10:15 Oxygen Flow Rate (L/min) 2 Oxygen Delivery Method Room Air Weight: 138 lb 0.15 oz Body Mass Index (BMI) 23.6 Intake & Output: Intake and Output for Last 24 Hours 05/01/21 05/02/21 05/03/21 03:59 03:59 03:59 Intake Total 1175 / 1175 Balance 1175 / 1175 Lab / Micro Data Result Diagrams: 05/02/21 03:36 05/02/21 03:36 Labs: Laboratory Results - last 24 hr 05/01/21 12:10: WBC 7.2, RBC 1.64 L, Hgb 5.5 L*, Hct 17.6 L, MCV 107.3 H, MCH 33.5 H, MCHC 31.3 L, RDW Std Deviation 59.5 H, RDW Coeff of Erma 15.2 H, Plt Cou nt 212, MPV 10.9, Immature Gran % (Auto) 1.100 H, Neut % (Auto) 78.1 H, Lymph % (Auto) 12.7 L, [place] % (Auto) 7.2, Eos % (Auto) 0.6, Baso % (Auto) 0.3, Absolute Neuts (auto) 5.6, Absolute Lymphs (auto) 0.91, Nucleated RBC % 0, Diff Path Review May foll, Hypochromasia 2+, Anisocytosis 1+ 05/01/21 12:10: Sodium 140, Potassium 3.9, Chloride 111 H, Carbon Dioxide 19.0 L , Anion Gap 10, BUN 64 H, Creatinine 1.39 H, Estim Creat Clear Calc 30.50, Est GFR (MDRD) Af Amer 47 L, Est GFR (MDRD) Non-Af 39 L, BUN/Creatinine Ratio 46.0 H , Glucose 107 H, Calcium 7.7 L, Total Bilirubin 0.30, AST 25, ALT 8 L, Alkaline Phosphatase 152 H, Troponin I High Sens 16, Total Protein 4.1 L, Albumin 1.7 L, Globulin 2.4, Albumin/Globulin Ratio 0.7 L 05/01/21 12:10: Blood Type AB NEGATIVE, Antibody Screen NEGATIVE, Crossmatch See Detail 05/01/21 12:10: Lactic Acid 2.7 H* 05/01/21 16:57: Lactic Acid 1.9 05/02/21 03:36: Sodium 137, Potassium 3.9, Chloride 110 H, Carbon Dioxide 18.0 L , Anion Gap 9, BUN 66 H, Creatinine 1.30 H, Estim Creat Clear Calc 32.61, Est GFR (MDRD) Af Amer 51 L, Est GFR (MDRD) Non-Af 42 L, BUN/Creatinine Ratio 50.8 H , Glucose 91, Calcium 7.1 L 05/02/21 03:36: WBC 8.5, RBC 2.62 L, Hgb 8.3 L, Hct 25.2 L, MCV 96.2 D, MCH 31.7, MCHC 32.9 D, RDW Std Deviation 58.5 H, RDW Coeff of Erma 17.0 H, Plt Count 145 L, MPV 11.0, Immature Gran % (Auto) 1.300 H, Neut % (Auto) 69.8, Lymph % (Auto) 19.1, [place] % (Auto) 8.4, Eos % (Auto) 1.2, Baso % (Auto) 0.2, Absolute Neuts (auto) 5.9, Absolute Lymphs (auto) 1.62, Nucleated RBC % 0 05/02/21 03:36: PT 16.4 H, INR 1.4, APTT 32.9 Micro: Microbiology 05/01/21 13:30 Stool Stool Occult Blood (KYLE) - Final Occult Blood Positive 05/01/21 11:40 Nasal Secretion SARS-CoV-2 Antigen (Rapid) - Final Physical Exam Const alert, oriented x3 and no apparent distress General Appearance: cooperative HEENT normocephalic and moist oral mucous membranes Eyes PERRL, EOMs intact bilaterally and conjunctivae normal Neck supple and no JVD Resp normal respiratory effort, no retractions, no use of accessory muscles and clear to auscultation bilaterally Auscultation: Negative for crackles, rales, rhonchi or wheezes Cardio regular rate, regular rhythm, S1 normal heart sound, S2 normal heart sound and no murmurs GI soft to palpation, non-tender and non-distended; Negative for hepatosplenomegaly Extremity no clubbing, cyanosis or edema Skin no rashes or lesions noted Neuro no focal motor deficits and no sensory deficits noted Psych affect normal Appearance: appropriate Assessment & Plan Assessment/Plan (1) Acute blood loss anemia: PLAN: 1. Acute blood loss anemia in the setting of chronic iron deficiency anemia from nutritional deficiency from gastric bypass/GERD ?Blood pressures are okay, her mean arterial pressures are well over 65 ?She is going to have 2 units transfused the first unit is already started to go in in the ER ?We will consult gastroenterology appreciate assistance and recommendations ?Continue with PPI and iron replacement ?Hemoglobin this morning is 8.3 ?Covid antigen was negative on admission ?Stool occult is positive, it was negative at the end of February. Given her confusion she is unable to tell me how long she has been noticing darker stools or if she has been noticing bright red blood 2. HTN/HLD ?Blood pressures are improving ?We will hold her losartan and her Lasix ?Continue with Lipitor ?We will hold her aspirin in the setting of GI bleed 3. Parkinson's ?Stable ?Continue with Sinemet DVT: SCDs Charges/Coding Visit Charges Inpatient E&M: 70496 Subs Hosp L2
[2021-05-02] MEDS: Nystatin Powder 15gm Bottle 1 APPLIC TOPICAL ×2 (12:52→20:20)
[2021-05-02] MEDS: Menthol/Lanolin/Calamine/Znox 113 GM Tube 1 APPLIC TOPICAL ×2 (12:52→20:21)
[2021-05-02] MEDS: Docusate Sodium 100 MG Capsule PO ×2 (12:52→20:20)
[2021-05-02] MEDS: Ferrous Sulfate 325 MG Tablet PO ×2 (12:52→17:01)
[2021-05-02] MEDS: Carbidopa/Levodopa 25/100 Tablet PO (12:53)
[2021-05-02] MEDS: Pantoprazole Sodium 40 MG Tablet PO ×2 (12:53→20:22)
--- NOTE | 2021-05-02 12:58 | NURSING ---
assisted pt w/ ordering diet
--- NOTE | 2021-05-02 14:23 | CPS ---
Patient wore 2L @[facility].S.
[2021-05-02] MEDS: Acetaminophen 500 MG Tablet 1000 MG PO (17:00)
[2021-05-02] MEDS: Atorvastatin Calcium 10 MG Tablet PO (20:20)
[2021-05-03] VITALS (13 sets, daily range): BP systolic 107–132; BP diastolic 48–83; PULSE 65–80; RESP 16–18; TEMP 36.6–37.2; O2SAT 95–100
[2021-05-03] MEDS: Carbidopa/Levodopa 25/100 Tablet PO ×2 (06:10→17:03)
[2021-05-03 07:21] LABS: Absolute Lymphocyte Count 1.19 X10^3/uL (0.83-4.51); Basophil# 0.01 X10^3/uL; Basophil% 0.1 % (0-1); Eosinophil# 0.25 X10^3/uL; Eosinophils% 3.6 % (0-5); Hematocrit 20.6 % (37-47); Hemoglobin 6.7 g/dL (12.0-15.0); Lymphocyte # 1.19 X10^3/ul (0.83-4.51); Mean Corp Hgb Conc 32.5 g/dL (32-36); Mean Corpuscular Hgb 31.9 pg (27.0-32.0); Mean Corpuscular Volume 98.1 fL (81-99); Mean Platelet Vol. 11.2 fl (6.2-12.0); Monocyte# 0.54 X10^3/uL; Monocyte% 7.7 % (0-10); NRBC Flagged by Analyzer 0 % (0-5); Neutrophil # 4.96 X10^3/uL (2.7-7.7); Neutrophil % 70.6 % (47-70); Platelet Count 142 K/mm3 (150-450); RBC Distribution Width CV 17.2 % (11.6-14.6); RBC Distribution Width SD 60.9 fl (35.1-43.9)
[2021-05-03 07:53] LABS: Anion Gap 8 (5-15); BUN 61 mg/dL (7-18); Calcium,Total 7.1 mg/dL (8.5-10.1); Chloride 110 mmol/L (98-107); Creatinine, Serum 1.13 mg/dL (0.55-1.02); EST Glomerular Filtration Rate 50 mL/min (>60); Est Glom Filt Rate - Afr Amer 60 mL/min (>60); Estimated Creatinine Clearance 35.43 ml/min; Glucose 85 mg/dL (74-106); Potassium 3.9 mmol/L (3.5-5.1); Sodium Level 137 mmol/L (136-145)
[2021-05-03] MEDS: Docusate Sodium 100 MG Capsule PO ×2 (10:20→19:49)
[2021-05-03] MEDS: Pantoprazole Sodium 40 MG Tablet PO ×2 (10:20→19:48)
[2021-05-03] MEDS: Ferrous Sulfate 325 MG Tablet PO ×2 (10:20→17:03)
[2021-05-03] MEDS: Menthol/Lanolin/Calamine/Znox 113 GM Tube 1 APPLIC TOPICAL ×2 (10:20→19:49)
[2021-05-03] MEDS: Nystatin Powder 15gm Bottle 1 APPLIC TOPICAL ×2 (10:20→19:49)
--- NOTE | 2021-05-03 11:30 | CASEMGMT ---
Social Work Note MARYBEL reviewed chart. Pt is listed as being from [facility]. SW in to speak with pt. SW introduced self and role at [facility]. Pt confirms she came from [facility] and plan is to return. SW informed pt that this worker will send updates to [facility]. Pt states understanding. Plan: Return to [facility] once medically cleared Samina Busby [employer]RILLER [employer], HIGH SCHOOL ADMISSIONS REPRESENTATIVE
--- NOTE | 2021-05-03 12:29 | CASEMGMT ---
Addendum entered by Geri Samuels 05/03/21 13:40: SW spoke w/Yaima at [facility], she received the updates, pt can return when ready. ALEC Patterson Original Note: MARYBEL Haas spoke w/pt, confirmed she would like to return to [facility] at discharge. MARYBEL called [facility], message left for Yaima, updates faxed. MARYBEL will continue to follow. ALEC Patterson
[2021-05-03 15:16] LABS: Pathologist Review Reviewed
--- NOTE | 2021-05-03 17:54 | CASEMGMT ---
Social Work Note SW spoke with Carol at [facility]. 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 Plan: Return to [facility] skilled when medically cleared Samina Busby PACKAGE DESIGNER, PROSTHETIC AIDES TEACHER
--- NOTE | 2021-05-03 19:40 | PN.HOSP_ITS ---
Subjective Subjective Patient was seen and examined today, her hemoglobin this morning was 6.7, I decided to transfuse 2 more units of packed red blood cells. I talked briefly with gastroenterology today, they are planning on doing a more extensive EGD tomorrow morning. Patient's daughter was at the bedside during the time of my examination I talked with her briefly. Objective Data Objective Data Vital Signs: Vital Signs Temp Pulse Resp BP Pulse Ox 98.6 F 78 18 120/55 L 100 05/03/21 18:36 05/03/21 18:36 05/03/21 18:36 05/03/21 18:36 05/03/21 18:36 Oxygen Flow Rate (L/min) 2 Oxygen Delivery Method Room Air Weight: 62.6 kg Body Mass Index (BMI) 23.6 Intake & Output: Intake and Output for Last 24 Hours 05/01/21 05/02/21 05/03/21 23:59 23:59 23:59 Intake Total 650 / 650 1125 / 1125 300 / 300 Output Total 750 / 750 Balance 650 / 650 1125 / 1125 -450 / -450 Lab / Micro Data Result Diagrams: 05/03/21 05:08 05/03/21 05:08 Labs: Laboratory Results - last 24 hr 05/01/21 12:10: Diff Path Review Reviewed 05/01/21 12:10: Crossmatch See Detail 05/01/21 12:10: Crossmatch See Detail 05/03/21 05:08: WBC 7.0, RBC 2.10 L, Hgb 6.7 L, Hct 20.6 L, MCV 98.1, MCH 31.9, MCHC 32.5, RDW Std Deviation 60.9 H, RDW Coeff of Erma 17.2 H, Plt Count 142 L, MPV 11.2, Immature Gran % (Auto) 1.000 H, Neut % (Auto) 70.6 H, Lymph % (Auto) 17.0 L, [place] % (Auto) 7.7, Eos % (Auto) 3.6, Baso % (Auto) 0.1, Absolute Neuts (auto) 5.0, Absolute Lymphs (auto) 1.19, Nucleated RBC % 0 05/03/21 05:08: Sodium 137, Potassium 3.9, Chloride 110 H, Carbon Dioxide 19.0 L , Anion Gap 8, BUN 61 H, Creatinine 1.13 H, Estim Creat Clear Calc 35.43, Est GFR (MDRD) Af Amer 60, Est GFR (MDRD) Non-Af 50 L, BUN/Creatinine Ratio 54.0 H, Glucose 85, Calcium 7.1 L Micro: Microbiology 05/01/21 13:30 Stool Stool Occult Blood (KYLE) - Final Occult Blood Positive 05/01/21 11:40 Nasal Secretion SARS-CoV-2 Antigen (Rapid) - Final Physical Exam Const alert, oriented x3 and no apparent distress General Appearance: cooperative, well kempt and well developed Orientation / Consciousness: awake, oriented to person, oriented to place and oriented to time HEENT normocephalic and moist oral mucous membranes Head and Scalp: normocephalic Eyes PERRL, EOMs intact bilaterally and conjunctivae normal Neck nuchal rigidity, supple, no JVD and thyroid normal General: trachea midline Resp normal respiratory effort and clear to auscultation bilaterally Auscultation: Negative for rales, rhonchi or wheezes Cardio regular rate, regular rhythm, S1 normal heart sound, S2 normal heart sound, no murmurs, no rub and no gallops GI normal to inspection, nondistended, normoactive bowel sounds, soft to palpation, non-tender and non-distended Extremity no clubbing, cyanosis or edema Skin no rashes or lesions noted General Skin Exam: no breakdown Neuro oriented x3, CN's II-XII intact bilaterally, no focal motor deficits and no sensory deficits noted Sensorium / Orientation: awake and alert Speech: speech normal Psych thought process normal and affect normal Assessment & Plan Assessment/Plan (1) Upper gastrointestinal bleeding: PLAN: 1. Acute blood loss anemia from upper GI bleed on a backdrop of chronic iron deficiency anemia-exact source unknown-requiring blood transfusion-patient will receive 2 more units of packed red blood cells today, repeat CBC will be performed tomorrow. #2 acute upper GI bleed-exact etiology unclear, patient will have a repeat endoscopy done by gastroenterology tomorrow #3 essential hypertension #4 hyperlipidemia #5 Parkinson's disease #6 chronic iron deficiency anemia secondary to past history of gastric bypass-I will transfuse the patient with Venofer Charges/Coding Visit Charges Inpatient E&M: 97841 Subs Hosp L2
[2021-05-03] MEDS: Acetaminophen 500 MG Tablet 1000 MG PO (19:48)
[2021-05-03] MEDS: Atorvastatin Calcium 10 MG Tablet PO (19:48)
[2021-05-04] VITALS (7 sets, daily range): BP systolic 111–140; BP diastolic 52–83; PULSE 62–74; RESP 16–18; TEMP 36.4–36.8; O2SAT 94–100; BMI 23.6
[2021-05-04] MEDS: Carbidopa/Levodopa 25/100 Tablet PO ×2 (05:08→20:05)
--- NOTE | 2021-05-04 07:07 | PCS.PANDOC ---
PANDEMIC DOCUMENTATION INITIATED: Date: 01/18/2021 Time: 190
[2021-05-04 07:14] LABS: Absolute Lymphocyte Count 0.91 X10^3/uL (0.83-4.51); Absolute Neutrophil Count 4.3 X10^3/uL (2.0-7.7); Basophil# 0.03 X10^3/uL; Basophil% 0.5 % (0-1); Eosinophil# 0.35 X10^3/uL; Eosinophils% 5.7 % (0-5); Hematocrit 27.8 % (37-47); Hemoglobin 9.3 g/dL (12.0-15.0); Lymphocyte # 0.91 X10^3/ul (0.83-4.51); Lymphocyte % 14.8 % (19-41); Mean Corp Hgb Conc 33.5 g/dL (32-36); Mean Corpuscular Hgb 31.7 pg (27.0-32.0); Mean Corpuscular Volume 94.9 fL (81-99); Mean Platelet Vol. 10.9 fl (6.2-12.0); Monocyte# 0.41 X10^3/uL; Monocyte% 6.7 % (0-10); NRBC Flagged by Analyzer 0 % (0-5); Neutrophil # 4.34 X10^3/uL (2.7-7.7); Neutrophil % 70.8 % (47-70); Platelet Count 123 K/mm3 (150-450); RBC Distribution Width CV 17.3 % (11.6-14.6); RBC Distribution Width SD 57.9 fl (35.1-43.9); Red Blood Count 2.93 M/mm3 (4.2-5.4); White Blood Count 6.1 K/mm3 (4.4-11.0)
[2021-05-04] MEDS: Menthol/Lanolin/Calamine/Znox 113 GM Tube 1 APPLIC TOPICAL ×2 (10:11→22:56)
[2021-05-04] MEDS: Nystatin Powder 15gm Bottle 1 APPLIC TOPICAL ×2 (10:11→22:55)
[2021-05-04] MEDS: Magnesium Citrate 300 ML PO (12:07)
--- NOTE | 2021-05-04 16:15 | CASEMGMT ---
Social Work Note MARYBEL faxed updated clinicals to [facility]. MARYBEL wrote on fax coversheet that pt is not medically ready for discharge today. Plan: Return to [facility] once medically cleared Samina Busby MSW, ZIG Z[employer] STITCHER
--- NOTE | 2021-05-04 17:23 | PN.GI_ITS ---
Subjective Subjective Patient's hemoglobin dropped down to 6.7. She was transfuse 2 more units of packed red blood cells. Does a total of 4 5 units she is gotten since being in hospital. She did get vitamin K because she takes Coumadin therapy. She did not see a whole lot of blood. Objective Data Objective Data Vital Signs: Vital Signs Temp Pulse Resp BP Pulse Ox 97.5 F L 74 16 127/55 H 94 05/04/21 14:06 05/04/21 14:06 05/04/21 14:06 05/04/21 14:06 05/04/21 14:06 Oxygen Flow Rate (L/min) 2 Oxygen Delivery Method Room Air Weight: 138 lb 0.15 oz Body Mass Index (BMI) 23.6 Intake & Output: Intake and Output for Last 24 Hours 05/02/21 05/03/21 05/04/21 23:59 23:59 23:59 Intake Total 1125 / 1125 1100 / 1100 910 / 910 Output Total 750 / 750 675 / 675 Balance 1125 / 1125 350 / 350 235 / 235 Lab / Micro Data Result Diagrams: 05/04/21 06:05 05/03/21 05:08 Labs: Laboratory Results - last 24 hr 05/01/21 12:10: Crossmatch See Detail 05/04/21 06:05: WBC 6.1, RBC 2.93 L, Hgb 9.3 L, Hct 27.8 L, MCV 94.9, MCH 31.7, MCHC 33.5, RDW Std Deviation 57.9 H, RDW Coeff of Erma 17.3 H, Plt Count 123 L, MPV 10.9, Immature Gran % (Auto) 1.500 H, Neut % (Auto) 70.8 H, Lymph % (Auto) 14.8 L, [place] % (Auto) 6.7, Eos % (Auto) 5.7 H, Baso % (Auto) 0.5, Absolute Neuts (auto) 4.3, Absolute Lymphs (auto) 0.91, Nucleated RBC % 0 Micro: Microbiology 05/01/21 13:30 Stool Stool Occult Blood (KYLE) - Final Occult Blood Positive 05/01/21 11:40 Nasal Secretion SARS-CoV-2 Antigen (Rapid) - Final Physical Exam Const alert General Appearance: cooperative Orientation / Consciousness: oriented to person HEENT hearing grossly normal bilaterally Head and Scalp: normal to inspection Face and Sinus: face symmetric Nose: external nose normal Mouth: oral and palatal mucosa normal Eyes conjunctivae normal General Eye: normal appearance of both eyes Neck full ROM General: normal visual inspection Lymph Lymphatic: no lymphadenopathy noted Chest inspection of chest normal and palpation of chest normal Chest: symmetrical chest wall rise Resp normal respiratory effort Effort and Inspection: able to speak in complete sentences Cardio regular rate GI non-distended Percussion: normal to percussion Rectal Exam: deferred Neuro Speech: speech normal Gait (Neuro): normal gait Assessment & Plan Assessment/Plan (1) Anemia: PLAN: We will perform an upper endoscopy with deep enteroscopy hopefully and find the location of her bleeding. We will have to do this under fluoroscopy to be able to locate the bleed successfully. Risk and benefits were explained to the patient and the patient's daughter. (2) GI bleed: Charges/Coding Visit Charges Inpatient E&M: 49402 Subs Hosp L2
--- NOTE | 2021-05-04 19:38 | PN.HOSP_ITS ---
Subjective Subjective Patient was seen and examined today, I talked to her daughter who was at the bedside today during the time my examination. She went down for an EGD today but nursing lost venous access and was unable to start an IV on the patient. She was brought back up to the floor and she will have to have a midline catheter inserted, I talked to the patient briefly about considering a Mediport as an outpatient in case she would have to come back to the hospital for blood transfusion or intervention. Patient's hemoglobin today was 9.3 Objective Data Objective Data Vital Signs: Vital Signs Temp Pulse Resp BP Pulse Ox 97.5 F L 74 16 127/55 H 94 05/04/21 14:06 05/04/21 14:06 05/04/21 14:06 05/04/21 14:06 05/04/21 14:06 Oxygen Flow Rate (L/min) 2 Oxygen Delivery Method Room Air Weight: 62.6 kg Body Mass Index (BMI) 23.6 Intake & Output: Intake and Output for Last 24 Hours 05/02/21 05/03/21 05/04/21 23:59 23:59 23:59 Intake Total 1125 / 1125 1100 / 1100 910 / 910 Output Total 750 / 750 675 / 675 Balance 1125 / 1125 350 / 350 235 / 235 Lab / Micro Data Result Diagrams: 05/04/21 06:05 05/03/21 05:08 Labs: Laboratory Results - last 24 hr 05/01/21 12:10: Crossmatch See Detail 05/04/21 06:05: WBC 6.1, RBC 2.93 L, Hgb 9.3 L, Hct 27.8 L, MCV 94.9, MCH 31.7, MCHC 33.5, RDW Std Deviation 57.9 H, RDW Coeff of Erma 17.3 H, Plt Count 123 L, MPV 10.9, Immature Gran % (Auto) 1.500 H, Neut % (Auto) 70.8 H, Lymph % (Auto) 14.8 L, [place] % (Auto) 6.7, Eos % (Auto) 5.7 H, Baso % (Auto) 0.5, Absolute Neuts (auto) 4.3, Absolute Lymphs (auto) 0.91, Nucleated RBC % 0 Micro: Microbiology 05/01/21 13:30 Stool Stool Occult Blood (KYLE) - Final Occult Blood Positive 05/01/21 11:40 Nasal Secretion SARS-CoV-2 Antigen (Rapid) - Final Physical Exam Const alert, oriented x3, no apparent distress and healthy appearing General Appearance: cooperative, well kempt and well developed Orientation / Consciousness: awake, oriented to person, oriented to place and oriented to time HEENT normocephalic and moist oral mucous membranes Eyes PERRL, EOMs intact bilaterally and conjunctivae normal Neck nuchal rigidity, supple, no JVD and thyroid normal General: trachea midline Resp normal respiratory effort, no retractions, no use of accessory muscles and clear to auscultation bilaterally Auscultation: Negative for rales, rhonchi or wheezes Cardio regular rate, regular rhythm, S1 normal heart sound, S2 normal heart sound, no murmurs, no rub and no gallops GI normal to inspection, nondistended, normoactive bowel sounds, soft to palpation, non-tender and non-distended Extremity normal to inspection and no clubbing, cyanosis or edema Skin no rashes or lesions noted General Skin Exam: no breakdown Neuro oriented x3, CN's II-XII intact bilaterally, no focal motor deficits and no sensory deficits noted Sensorium / Orientation: awake and alert Speech: speech normal Psych thought process normal and affect normal Appearance: appropriate Assessment & Plan Assessment/Plan (1) Upper gastrointestinal bleeding: PLAN: 1. Acute blood loss anemia from upper GI bleed on a backdrop of chronic iron deficiency anemia-exact source unknown-requiring blood transfusion- patient's hemoglobin appears to be stable at this time, I will check a CBC tomorrow morning. Patient will need to undergo an EGD tomorrow after she has venous access. #2 acute upper GI bleed-exact etiology unclear, patient will have a repeat endoscopy done by gastroenterology tomorrow #3 essential hypertension #4 hyperlipidemia #5 Parkinson's disease #6 chronic iron deficiency anemia secondary to past history of gastric bypass-I will transfuse the patient with Venofer again Charges/Coding Visit Charges Inpatient E&M: 57237 Subs Hosp L2
[2021-05-04] MEDS: Ferrous Sulfate 325 MG Tablet PO (20:05)
[2021-05-04] MEDS: Docusate Sodium 100 MG Capsule PO (22:55)
[2021-05-04] MEDS: Pantoprazole Sodium 40 MG Tablet PO (22:55)
[2021-05-04] MEDS: Atorvastatin Calcium 10 MG Tablet PO (22:55)
[2021-05-04] MEDS: 0.9% Saline Lock 10 ML Syringe IV (23:37)
[2021-05-04] MEDS: MELATONIN 3 MG TABLET PO (23:40)
[2021-05-05] VITALS (8 sets, daily range): BP systolic 111–127; BP diastolic 40–71; PULSE 62–80; RESP 16–18; TEMP 36.6–36.7; O2SAT 93–100; BMI 23.6
[2021-05-05 05:58] LABS: Absolute Lymphocyte Count 1.09 X10^3/uL (0.83-4.51); Absolute Neutrophil Count 4.1 X10^3/uL (2.0-7.7); Basophil# 0.04 X10^3/uL; Basophil% 0.6 % (0-1); Eosinophil# 0.48 X10^3/uL; Eosinophils% 7.7 % (0-5); Hematocrit 27.3 % (37-47); Hemoglobin 8.7 g/dL (12.0-15.0); Lymphocyte # 1.09 X10^3/ul (0.83-4.51); Lymphocyte % 17.6 % (19-41); Mean Corp Hgb Conc 31.9 g/dL (32-36); Mean Corpuscular Hgb 30.9 pg (27.0-32.0); Mean Corpuscular Volume 96.8 fL (81-99); Mean Platelet Vol. 10.2 fl (6.2-12.0); Monocyte% 6.4 % (0-10); NRBC Flagged by Analyzer 0 % (0-5); Neutrophil % 66.1 % (47-70); Platelet Count 146 K/mm3 (150-450); RBC Distribution Width CV 17.6 % (11.6-14.6); RBC Distribution Width SD 61.6 fl (35.1-43.9); Red Blood Count 2.82 M/mm3 (4.2-5.4); White Blood Count 6.2 K/mm3 (4.4-11.0)
[2021-05-05] MEDS: Menthol/Lanolin/Calamine/Znox 113 GM Tube 1 APPLIC TOPICAL ×2 (12:55→20:21)
[2021-05-05] MEDS: Nystatin Powder 15gm Bottle 1 APPLIC TOPICAL ×2 (12:56→20:20)
[2021-05-05] MEDS: Pantoprazole Sodium 40 MG Tablet PO ×2 (12:57→20:20)
[2021-05-05] MEDS: Carbidopa/Levodopa 25/100 Tablet PO (12:57)
--- NOTE | 2021-05-05 16:11 | NURSING ---
have spoke w/daughter Cristina x2 today lastly, informing her that a port placement is planned and that pt will still need a midline placed prior to that and that Dr mccall is still planning on doing the Endo at some point
--- NOTE | 2021-05-05 17:47 | EX.PCM.PN.GI ---
Subjective Subjective Patient is well without any abdominal pain. She had a slight decrease in her hemoglobin today. She has not been eating due to the fact she has been n.p.o. for possible upper endoscopy. She lost IV access, therefore the procedure was not able be performed. Objective Data Objective Data Vital Signs: Vital Signs Temp Pulse Resp BP Pulse Ox 97.9 F 80 18 127/67 H 93 05/05/21 16:14 05/05/21 16:14 05/05/21 16:14 05/05/21 16:14 05/05/21 16:14 Oxygen Flow Rate (L/min) 2 Oxygen Delivery Method Room Air Weight: 138 lb 0.15 oz Body Mass Index (BMI) 23.6 Intake & Output: Intake and Output for Last 24 Hours 05/03/21 05/04/21 05/05/21 23:59 23:59 23:59 Intake Total 1100 / 1100 910 / 910 470 / 470 Output Total 750 / 750 675 / 675 300 / 300 Balance 350 / 350 235 / 235 170 / 170 Lab / Micro Data Result Diagrams: 05/05/21 05:04 05/03/21 05:08 Labs: Laboratory Results - last 24 hr 05/05/21 05:04: WBC 6.2, RBC 2.82 L, Hgb 8.7 L, Hct 27.3 L, MCV 96.8, MCH 30.9, MCHC 31.9 L, RDW Std Deviation 61.6 H, RDW Coeff of Erma 17.6 H, Plt Count 146 L, MPV 10.2, Immature Gran % (Auto) 1.600 H, Neut % (Auto) 66.1, Lymph % (Auto) 17.6 L, [place] % (Auto) 6.4, Eos % (Auto) 7.7 H, Baso % (Auto) 0.6, Absolute Neuts (auto) 4.1, Absolute Lymphs (auto) 1.09, Nucleated RBC % 0 Micro: Microbiology 05/01/21 13:30 Stool Stool Occult Blood (KYLE) - Final Occult Blood Positive 05/01/21 11:40 Nasal Secretion SARS-CoV-2 Antigen (Rapid) - Final Physical Exam Const alert General Appearance: cooperative Orientation / Consciousness: oriented to person HEENT hearing grossly normal bilaterally Head and Scalp: normal to inspection Face and Sinus: face symmetric Nose: external nose normal Mouth: oral and palatal mucosa normal Eyes conjunctivae normal General Eye: normal appearance of both eyes Neck full ROM General: normal visual inspection Lymph Lymphatic: no lymphadenopathy noted Chest inspection of chest normal and palpation of chest normal Chest: symmetrical chest wall rise Resp normal respiratory effort Effort and Inspection: able to speak in complete sentences Cardio regular rate GI non-distended Percussion: normal to percussion Rectal Exam: deferred Neuro Speech: speech normal Gait (Neuro): normal gait Assessment & Plan Assessment/Plan (1) Anemia: PLAN: Her hemoglobin is down a little today. We will repeat it. If it drops down below 8 she will need another blood transfusion. (2) GI bleed: PLAN: Hopefully will be able to do the endoscopy tomorrow under fluoroscopy to locate the etiology of her anemia. Charges/Coding Visit Charges Inpatient E&M: 15427 Subs Hosp L2
[2021-05-05] MEDS: Ferrous Sulfate 325 MG Tablet PO (18:17)
--- NOTE | 2021-05-05 19:31 | PN.HOSP_ITS ---
Subjective Subjective Patient was seen and examined today, the midline catheter that was placed and the patient became nonfunctional, I talked with the patient briefly about undergoing a Mediport placement and she was okay with this, unfortunately she will still have to have venous access for this to be done. Dr. Fang has agreed to see the patient tomorrow. Patient's hemoglobin dropped about 0.5 g/dL, she does not appear symptomatic with the anemia however. The plan is for her to have upper endoscopy tomorrow. Objective Data Objective Data Vital Signs: Vital Signs Temp Pulse Resp BP Pulse Ox 97.9 F 80 18 127/67 H 93 05/05/21 16:14 05/05/21 16:14 05/05/21 16:14 05/05/21 16:14 05/05/21 16:14 Oxygen Flow Rate (L/min) 2 Oxygen Delivery Method Room Air Weight: 62.6 kg Body Mass Index (BMI) 23.6 Intake & Output: Intake and Output for Last 24 Hours 05/03/21 05/04/21 05/05/21 23:59 23:59 23:59 Intake Total 1100 / 1100 910 / 910 470 / 470 Output Total 750 / 750 675 / 675 300 / 300 Balance 350 / 350 235 / 235 170 / 170 Lab / Micro Data Result Diagrams: 05/05/21 05:04 05/03/21 05:08 Labs: Laboratory Results - last 24 hr 05/05/21 05:04: WBC 6.2, RBC 2.82 L, Hgb 8.7 L, Hct 27.3 L, MCV 96.8, MCH 30.9, MCHC 31.9 L, RDW Std Deviation 61.6 H, RDW Coeff of Erma 17.6 H, Plt Count 146 L, MPV 10.2, Immature Gran % (Auto) 1.600 H, Neut % (Auto) 66.1, Lymph % (Auto) 17.6 L, [place] % (Auto) 6.4, Eos % (Auto) 7.7 H, Baso % (Auto) 0.6, Absolute Neuts (auto) 4.1, Absolute Lymphs (auto) 1.09, Nucleated RBC % 0 Micro: Microbiology 05/01/21 13:30 Stool Stool Occult Blood (KYLE) - Final Occult Blood Positive 05/01/21 11:40 Nasal Secretion SARS-CoV-2 Antigen (Rapid) - Final Physical Exam Const alert, oriented x3 and no apparent distress General Appearance: cooperative, well kempt and well developed Orientation / Consciousness: awake, oriented to person, oriented to place and oriented to time HEENT normocephalic, head/scalp atraumatic and moist oral mucous membranes Head and Scalp: normocephalic Eyes PERRL, EOMs intact bilaterally and conjunctivae normal Neck nuchal rigidity, supple, no JVD, thyroid normal and no carotid bruits General: trachea midline Resp normal respiratory effort, no retractions, no use of accessory muscles and clear to auscultation bilaterally Auscultation: Negative for rales, rhonchi or wheezes Cardio regular rate, regular rhythm, S1 normal heart sound, S2 normal heart sound, no murmurs, no rub and no gallops GI normal to inspection, nondistended, normoactive bowel sounds, soft to palpation, non-tender and non-distended Extremity no clubbing, cyanosis or edema Skin no rashes or lesions noted General Skin Exam: no breakdown Neuro oriented x3, CN's II-XII intact bilaterally, no focal motor deficits and no sensory deficits noted Sensorium / Orientation: awake and alert Speech: speech normal Psych thought process normal and affect normal Assessment & Plan Assessment/Plan (1) Upper gastrointestinal bleeding: PLAN: 1. Acute blood loss anemia from upper GI bleed on a backdrop of chronic iron deficiency anemia-exact source unknown-requiring blood transfusion- patient's hemoglobin appears slightly lower than yesterday, I will repeat her CBC tomorrow. I do not think she needs transfuse at this time. #2 acute upper GI bleed-exact etiology unclear, patient will have a repeat endoscopy done by gastroenterology tomorrow #3 essential hypertension #4 hyperlipidemia #5 Parkinson's disease #6 chronic iron deficiency anemia secondary to past history of gastric bypass-I will transfuse the patient with Venofer again tomorrow #7 poor venous access-patient will be seen by general surgery tomorrow to arrange for a Mediport to be placed either during the patient's hospital stay or as an outpatient. I believe this will benefit the patient as she will more than likely need to be transfused in the future. Charges/Coding Visit Charges Inpatient E&M: 81900 Subs Hosp L2
[2021-05-05] MEDS: Atorvastatin Calcium 10 MG Tablet PO (20:20)
[2021-05-05] MEDS: Docusate Sodium 100 MG Capsule PO (20:20)
--- NOTE | 2021-05-05 22:23 | NURSING ---
Pt was supposed to get a midline placed today by conveyor feeder offbearer. Access was contacted 3 times during the day [phone], [phone] and 1800. I called them again at 2112 and talked with Ludin Perez and he informed me no one could come tonight to place the midline and they would come some time after 0900 0n 05/06/21. I informed both Dr. Ma and DR. Fang of the situation incase it could affect them tomorrow logistically in possibly placing a port (Annalisa) and performing an EGD (Francesca). They are both aware.
[2021-05-06] VITALS (9 sets, daily range): BP systolic 100–133; BP diastolic 46–77; PULSE 62–87; RESP 16–18; TEMP 36.4–37.2; O2SAT 95–100
[2021-05-06] MEDS: Carbidopa/Levodopa 25/100 Tablet PO ×2 (06:22→15:47)
[2021-05-06 06:57] LABS: Hematocrit 26.8 % (37-47); Hemoglobin 8.6 g/dL (12.0-15.0)
--- NOTE | 2021-05-06 09:41 | CASEMGMT ---
Addendum entered by Samina Busby 05/06/21 14:27: Pt is actually medically ready for discharge today. MARYBEL placed a call to Carol at [facility] and updated her. [place] states pt can return today, states pt will just be coming back intermediate card tender and not skilled. [place] states pt will need a new COVID test. MARYBEL updated RN. Plan: Return to [facility] intermediate card tender/intermediate care Original Note: Social Work Note Pt is not medically ready for discharge. MARYBEL placed a call to Carol at [facility] and updated her. MARYBEL faxed updated clinicals to [facility]. Plan: Return to [facility] skilled when medically cleared Samina Busby GUEST SERVICE MANAGER, FINANCIAL SERVICES AGENT
--- NOTE | 2021-05-06 09:42 | NURSING ---
talked with volleyball commentator informed do not have an ETA at this time. requested that this be made a priority that aware they attempted to get ETA 4 times yesterday. informed when they have an ETA they will call as nurse starts at 0900
--- NOTE | 2021-05-06 10:45 | EX.PCM.CON.S ---
Assessment & Plan Assessment/Plan (1) Difficult intravenous access: PLAN: Patient has recurring issues with difficult IV access amidst a recurring problem with anemia related to an occult GI bleed. She recalls admissions for this anemia dating back at least 15 years. I was asked to see the patient for consideration of a Mediport placement to be used with the current admission and any future needs. While this is a reasonable request, I hesitate to place durable central venous access ahead of the patient's planned endoscopy today. I am not sure yet the risk of future IV access needs outweighs the potential risk of infection with a port. If the patient's bleeding source is identified today and it is unlikely that she will have further issues, then I do not think a port would be justified. Patient has indwelling beats from her cardiac pacemaker and also has a history of chronic kidney disease. Considering the potential for infection of these leads or for a need for potential dialysis access, I would hold off placing durable central venous access at this time. However, if the procedure today does not identify bleeding, I would be happy to revisit this consideration as the patient has a lengthy history of admissions related to anemia. HPI Consult Data Date of Consult: 05/06/21 HPI Narrative HPI Narrative: DAVID PORRAS, is a 76 F who presented to [facility] with anemia that was identified on routine lab work. Patient claims she was not symptomatic from her low blood count. She was scoped by a Dr. Ma of gastroenterology earlier in this admission, but unfortunately a cause to her bleeding was not identified. This was likely somewhat complicated by the fact that the patient has post Geo-en-Y gastric bypass anatomy. The scope did evaluate the GJ and JJ anastomoses, but the biliopancreatic limb was not identified. Patient is due for repeat scope with fluoroscopic guidance today pending reestablishment of IV access. Patient has a longstanding history of anemia. She estimates at least last 15 years she has had multiple admissions for this problem and required numerous transfusions. Hospitalist service is concerned that the patient will have future admissions and her difficult intravenous access may become an issue that impedes future treatments. Currently, she was due for her repeat endoscopy session yesterday, but no IV access could be obtained despite multiple provider attempts with the use of ultrasound. Patient has no prior history of central line placement. She does confirm she had a PICC line placed remotely, but not have any complications. She is status post cardiac pacer implantation in the left chest. [facility] Medical History (Updated 05/06/21 @ 11:[address] Avtar Fang MD) Anxiety CAD (coronary artery disease) Depression Dyspnea GERD (gastroesophageal reflux disease) HTN (hypertension) Hyperlipidemia Iron deficiency anemia Kidney stones Osteoarthritis Pacemaker Parkinson disease Post-menopausal Restless legs Rheumatoid arthritis Home Medications carbidopa-levodopa 1 tab PO BID 11/29/18 [History Last Taken 05/01/21] ferrous sulfate 325 mg PO DAILY 11/29/18 [History Last Taken 03/01/19] oxybutynin chloride 10 mg PO DAILY 11/29/18 [History Last Taken 03/01/19] acetaminophen 1,000 mg PO Q8H PRN PRN 03/01/19 [History Last Taken 03/01/19] fluticasone propionate 2 spray NARES DAILY PRN 03/01/19 [History Last Taken Unknown] pantoprazole 40 mg PO BID 03/01/19 [History Last Taken 05/01/21] potassium chloride 10 meq PO QODAY 03/28/19 [History Last Taken Unknown] aspirin [Aspir-81] 81 mg PO BID 05/01/21 [History Last Taken Unknown] atorvastatin 10 mg PO QHS 05/01/21 [History Last Taken Unknown] bisacodyl [Dulcolax (bisacodyl)] 10 mg PO DAILY 05/01/21 [History Last Taken Unknown] cholecalciferol (vitamin D3) [Vitamin D3] 50 mcg PO DAILY 05/01/21 [History Last Taken Unknown] citalopram 10 mg PO DAILY 05/01/21 [History Last Taken Unknown] copper gluconate 4 mg PO DAILY 05/01/21 [History Last Taken Unknown] docusate sodium 100 mg PO BID 05/01/21 [History Last Taken Unknown] doxycycline hyclate [Vibramycin] 100 mg PO BID 05/01/21 [History Last Taken Unknown] furosemide 20 mg PO QODAY 05/01/21 [History Last Taken Unknown] losartan 25 mg PO DAILY 05/01/21 [History Last Taken Unknown] oxycodone 5 mg PO Q6H PRN 05/01/21 [History Last Taken Unknown] sennosides [senna] 8.6 mg PO QHS 05/01/21 [History Last Taken Unknown] zinc 50 mg PO DAILY 05/01/21 [History Last Taken Unknown] Allergy/AdvReac Type Severity Reaction Status Date / Time amoxicillin Allergy Itching Verified 05/01/21 10:52 Penicillins Allergy Itching Verified 05/01/21 10:52 Family History (Updated 05/01/21 @ 15:[address] Prabhakar Kimball MD) Other Diabetes Hypertension Surgical History (Updated 05/01/21 @ 22:02 by Kathryn Copeland) History of total knee replacement (TKR) S/P hysterectomy Social History Smoking Status: Never smoker Physical Exam Const alert, oriented x3 and no apparent distress Chest inspection of chest normal Chest Narrative: Patient with pacer device on the left chest wall and well-healed sternotomy incision. No scars over the right chest wall or right neck. GI GI Narrative: Nondistended, well-healed scars consistent with history of midline laparotomy and abdominoplasty. Nontender to palpation Lab / Micro Data Result Diagrams: 05/06/21 06:00 05/03/21 05:08 Labs: Laboratory Results - last 24 hr 05/06/21 06:00: Hgb 8.6 L, Hct 26.8 L Charges/Coding Visit Charges Inpatient E&M: 85457 Init Hosp L2
--- NOTE | 2021-05-06 11:15 | EGD_PTH ---
PATIENT: DAVID PORRAS LOC: MS3 U#:[id number] AGE/SX: 76/F ROOM: [facility] RE05/01/[address]: Dr. Santos Garcia DO : 1945 BED: 1 DIS: 05/06/2021 SPEC #: [id number] RECD: 05/06/21 14:26 STATUS: LYNNE RENguyen #: [id number] ELHAM: 05/06/21 11:[address]: Todd Ma DEPT: SURGICAL PATHOLOGY RECD BY: China Stovall ENTERED: 05/07/21 08:41 SP TYPE: EGD BIOPSY OTHR DR: MD Dr. Avtar Brink MD Dr. Mark Tereletsky, DO Dr. Nicholas F Kotsonis, MD Dr. Rahsaan Friend, DO Tissues: Pylorus Procedures: Surgery Specimen Level IV Comments: @ Ordering doctor for SUIV edited from to @ by CHAVA at 05/07/21 1334 @ Submitting doctor edited from to @ by RGOOD at 05/07/21 1338 HEADER OPERATION: EGD with fluoro in OR PRE-OP DIAGNOSIS: Anemia, GI bleed TISSUE SUBMITTED: Pylorus biopsy MICROSCOPIC DIAGNOSIS Pylorus, biopsy: Moderate chronic gastritis. See microscopic description and comment. AMELIA:hussain 05/10/2021 COMMENT The results of immunohistochemistry for Helicobacter pylori will be reported separately ([id number]). MICROSCOPIC DESCRIPTION Slides are reviewed. The specimen shows fragments of gastric mucosa with chronic inflammatory cell infiltrates in the lamina propria consisting of lymphocytes and plasma cells, consistent with moderate chronic gastritis. GROSS DESCRIPTION Received in fixative is one container labeled with the patient's name and designated pylorus biopsy. The specimen consists of two irregular fragments of light celaya soft tissue that in aggregate measure 0.6 x 0.3 x 0.1 cm. The specimen is totally submitted in one cassette. / AMELIA:hussain 05/07/21 TC:3 CPT: 43907
--- NOTE | 2021-05-06 11:15 | IMM_PTH ---
PATIENT: DAVID PORRAS LOC: MS3 U#:[id number] AGE/SX: 76/F [place] [facility] [place]: Dr. Santos Garcia DO : 1945 BED: 1 DIS: 05/06/2021 SPEC #: [id number] RECD: 05/07/21 13:37 STATUS: LYNNE REQ #: [id number] ELHAM: 05/06/21 11:[address]: Todd Ma DEPT: IMMUNOHISTOCHEMISTRY RECD BY: Lilian Montanez ENTERED: 05/07/21 13:38 SP TYPE: IMMUNO OTHR DR: MD Dr. Avtar Brink MD Dr. Mark Tereletsky, DO Dr. Nicholas F Kotsonis, MD Tissues: Pylorus Procedures: H Pylori (initial) PHYSICIAN & INSTITUTION [place] [address] SPECIMEN INFORMATION: Tissue Source: Pylorus biopsy Clinical Info: Anemia, GI bleed Specimen Number: [id number] CPT code: 76830 METHODOLOGY: Deparaffinized sections of prefer/formalin-fixed tissue or PAP/DQ stained slides are incubated with monoclonal/polyclonal antibodies/oligonucleotide probes. Localization is made via biotin free immunoperoxidase method. Appropriate controls are performed and reacted as expected. Results on target cell population are indicated in the following table: RESULTS: ANTIBODY / CLONE RESULT H Pylori (polyclonal) negative These tests were developed and their performance characteristics determined by [facility]. They may not have been cleared or approved by the U.S. Food and Drug Administration. The FDA has determined that such clearance or approval is not necessary. INTERPRETATION: Pylorus biopsy: Negative for Helicobacter pylori organisms. SJ:hussain 05/11/2021
--- NOTE | 2021-05-06 12:39 | OP.EGD_ITS ---
Patient Name: Maia Nieto Procedure Date: 05/06/2021 11:19 AM Date of : 1945 Age: 76 Procedure: Upper GI endoscopy Indications: Heme positive stool Providers: Todd Ma DO Medicines: See the Anesthesia note for documentation of the administered medications Patient Profile: This is a 76 year old female. Refer to note in patient chart for documentation of history and physical. Patient has symptoms. Complications: No immediate complications. Procedure: Pre-Anesthesia Assessment: - Prior to the procedure, a History and Physical was performed, and patient medications and allergies were reviewed. The patient is competent. The risks and benefits of the procedure and the sedation options and risks were discussed with the patient. All questions were answered and informed consent was obtained. Patient identification and proposed procedure were verified by the physician in the pre-procedure area. Mental Status Examination: alert and oriented. Airway Examination: normal oropharyngeal airway and neck mobility. CV Examination: normal. Prophylactic Antibiotics: The patient does not require prophylactic antibiotics. Prior Anticoagulants: The patient has taken no previous anticoagulant or antiplatelet agents. ASA Grade Assessment: II - A patient with mild systemic disease. After reviewing the risks and benefits, the patient was deemed in satisfactory condition to undergo the procedure. The anesthesia plan was to use moderate sedation / analgesia (conscious sedation). Immediately prior to administration of medications, the patient was re-assessed for adequacy to receive sedatives. The heart rate, respiratory rate, oxygen saturations, blood pressure, adequacy of pulmonary ventilation, and response to care were monitored throughout the procedure. The physical status of the patient was re-assessed after the procedure. - Pre-procedure physical examination revealed no contraindications to sedation. - ASA Grade Assessment: III - A patient with severe systemic disease. After obtaining informed consent, the endoscope was passed under direct vision. Throughout the procedure, the patient's blood pressure, pulse, and oxygen saturations were monitored continuously. The Colonoscope was introduced through the and advanced to the. The gastroscope was introduced through the mouth, and advanced to the afferent and efferent jejunal loops. The upper GI endoscopy was accomplished without difficulty. The patient tolerated the procedure well. Moderate Sedation: Moderate (conscious) sedation was administered by the endoscopy nurse and supervised by the endoscopist. The patient's oxygen saturation, heart rate, blood pressure and response to care were monitored. Total physician intraservice time was 15 minutes. Scope In: 11:45:14 AM Scope Out: 12:27:54 PM Total Procedure Duration Time 0 hours 42 minutes 40 seconds Findings: The examined esophagus was normal. 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 The gastrojejunal anastomosis was characterized by healthy appearing mucosa. This was traversed. The gnise-yh-jvmwvco limb was characterized by healthy appearing mucosa. The jejunojejunal anastomosis was characterized by healthy appearing mucosa. The lswaptvp-ow-zuudcnv limb was examined 120 cm from anastomosis and was characterized by healthy appearing mucosa. Diffuse moderately erythematous mucosa without bleeding was found at the pylorus. Biopsies were taken with a cold forceps for histology. Verification of patient identification for the specimen was done. Estimated blood loss was minimal. Localized moderately erythematous mucosa without bleeding was found at the pylorus. Impression: - Normal esophagus. - Geo-en-Y gastrojejunostomy with gastrojejunal anastomosis characterized by healthy appearing mucosa. - Erythematous mucosa in the pylorus. Biopsied. - Erythematous mucosa in the pylorus. Recommendation: - Return patient to [facility] for ongoing care. - Resume previous diet today. - Continue present medications. - Await pathology results. - Repeat upper endoscopy in 1 year for surveillance based on pathology results. - Return to GI office in 2 weeks. Procedure Code(s): --- Professional --- 51424, Esophagogastroduodenoscopy, flexible, transoral; with biopsy, single or multiple G0500, Moderate sedation services provided by the same physician or other qualified health client care manager performing a gastrointestinal endoscopic service that sedation supports, requiring the presence of an independent trained observer to assist in the monitoring of the patient's level of consciousness and physiological status; initial 15 minutes of intra-service time; patient age 5 years or older (additional time may be reported with 69434, as appropriate) CPT copyright 2017 [employer]. All rights reserved. The codes documented in this report are preliminary and upon synoptic meteorologist review may be revised to meet current compliance requirements. Todd Ma DO 05/06/2021 12:39:15 PM This report has been signed electronically. Number of Addenda: 1 Note Initiated On: 05/06/2021 11:19 AM Addendum Number: 1 Addendum Date: 02/09/2022 7:00:38 AM MAC was used instead of moderate sedation for the patient. Todd Ma DO 02/09/2022 7:00:43 AM This report has been signed electronically.
--- NOTE | 2021-05-06 13:12 | SUR.PHASEI ---
REPORT SENT. AWAITING CLEARANCE TO TRANSFER BACK TO ROOM.
[2021-05-06] MEDS: Menthol/Lanolin/Calamine/Znox 113 GM Tube 1 APPLIC TOPICAL (13:59)
[2021-05-06] MEDS: Ferrous Sulfate 325 MG Tablet PO ×2 (13:59→17:02)
[2021-05-06] MEDS: Nystatin Powder 15gm Bottle 1 APPLIC TOPICAL (14:00)
[2021-05-06] MEDS: Docusate Sodium 100 MG Capsule PO (14:00)
[2021-05-06] MEDS: Pantoprazole Sodium 40 MG Tablet PO (14:01)
--- NOTE | 2021-05-06 15:10 | CASEMGMT ---
Addendum entered by Samina Busby 05/06/21 16:30: SW spoke with RN. Pt to transport via wheelchair van at 6:00pm. SW accessed trip assist and arranged transportation via wheelchair van for 6:00pm. MARYBEL placed a call to pt's daughter Cristina and updated her on transportation time. MARYBEL placed a call to Carol at [facility] and left message updating her on transportation time. MARYBEL updated RN on transportation time who will update pt. MARYBEL asked departmental secretary to fax completed discharge paperwork once completed. [place] to do so. Plan: Return to [facility] halfway today with Physician's transporting via wheelchair van at 6:00pm Original Note: Social Work Note MARYBEL placed a call to pt's daughter Cristina and updated her that pt is going to discharge back to [facility] today. Cristina states understanding. Plan: Return to [facility] bed bug exterminator Samina Busby ELECTRIC MELT OPERATOR, AIR TOOL OPERATOR
--- NOTE | 2021-05-06 15:45 | PCM.TXEXTCAR ---
Diet 05/05/21 16:08 Diet: regular Is pt able to select menu?: No Diet Comments: 1 bottle of chocolate or vanilla ensure on each tray Routine Orders/Code Status Routine Lab Work: CBC (q weekly times 3 starting 05/09/21) Therapies Weight Bearing: Full weight bearing Problem/Diagnosis (1) Upper gastrointestinal bleeding: Status: Acute Comment: site unknown (2) Anemia: Status: Chronic (3) Acute blood loss anemia: Status: Acute Comment: requiring transfusion (4) Parkinson disease: Status: Chronic (5) HTN (hypertension): Status: Chronic Allergies/Procedures Done in Hospital Allergies amoxicillin Allergy (Verified 05/01/21 10:52) Itching Penicillins Allergy (Verified 05/01/21 10:52) Itching Procedures: Blood transfusion and EGD Type of Care/Length of Stay Estimated LOS: More Than 30 Days Type of Care Needed: Intermediate Rehab Potential: Fair Prognosis: Fair Additional Orders/Day of Discharge H&P will serve as current which was dated: 05/01/21 Day of Discharge: 05/06/21 Discharge Plan Admission Admit Date/Time: 05/01/21 15:41 Primary Reason for Your Visit: upper GI bleed Attending Provider: Santos Garcia Primary Care Provider: Vianca Baca Consulting Providers: Todd Ma ; Avtar Fang Discharge Orders/Prescriptions Prescriptions: Continued carbidopa-levodopa 1 EACH tablet 1 tab PO BID RF: 0 oxybutynin chloride 5 MG tablet 10 mg PO DAILY RF: 0 acetaminophen 500 MG tablet 1,000 mg PO Q8H PRN PRN (Reason: Pain Score 1-10/10) RF: 0 fluticasone propionate 50 spray,suspension 2 spray NARES DAILY PRN (Reason: Allergies) RF: 0 pantoprazole 40 MG tablet 40 mg PO BID RF: 0 potassium chloride 20 MEQ tablet 10 meq PO QODAY RF: 0 sennosides [senna] 8.6 mg Tablet 8.6 mg PO QHS RF: 0 atorvastatin 10 mg tablet 10 mg PO QHS RF: 0 losartan 25 mg tablet 25 mg PO DAILY RF: 0 furosemide 20 mg tablet 20 mg PO QODAY RF: 0 docusate sodium 100 mg Tablet 100 mg PO BID RF: 0 doxycycline hyclate [Vibramycin] 100 mg Capsule 100 mg PO BID RF: 0 citalopram 10 mg Tablet 10 mg PO DAILY RF: 0 bisacodyl [Dulcolax (bisacodyl)] 5 mg Tablet,Delayed Release (Dr/Ec) 10 mg PO DAILY RF: 0 copper gluconate 2 mg Tablet 4 mg PO DAILY RF: 0 zinc 50 mg Capsule 50 mg PO DAILY RF: 0 cholecalciferol (vitamin D3) [Vitamin D3] 50 mcg (2,000 unit) Tablet 50 mcg PO DAILY RF: 0 oxycodone 5 mg Tablet 5 mg PO Q6H PRN (Reason: Pain) 7 Days Qty: 10 RF: 0 Changed ferrous sulfate 325 MG tablet 325 mg PO BIDCM Qty: 0 RF: 0 Discontinued aspirin [Aspir-81] 81 mg Tablet,Delayed Release (Dr/Ec) 81 mg PO BID RF: 0 Referrals / Follow Up: Vianca Baca MD [Primary Care Provider] - FriendTodd DO [STAFF PHYSICIAN] - See Referral Note (in 2 weeks) Disposition Disposition (needs filled in before D/C Order can be placed): Retirement Facility
--- NOTE | 2021-05-06 16:27 | PCM.DC.SUM ---
Providers Date of Admission: 05/01/21 Date of Discharge: 05/06/21 Primary Care Physician: Dr. Vianca Baca MD Consultations 05/01/21 16:55 Consult: Gastroenterology Routine Consulting Provider: Todd Ma Reason for Consult: GI bleed EMERGENT Consult: No Notified: Yes Date Notified: 05/01/21 Time Notified: 17:11 Method of Notification: Verbal Comments:: Notify in am 05/05/21 15:02 Consult: General Surgery Routine Consulting Provider: Avtar Fang Reason for Consult: mediport placement EMERGENT Consult: No Notified: Yes Date Notified: 05/05/21 Time Notified: 15:03 Method of Notification: Verbal Reason For Visit: ANEMIA Diagnosis Discharge Diagnosis (1) Upper gastrointestinal bleeding: Status: Acute Code(s): K92.2 - Gastrointestinal hemorrhage, unspecified (2) Anemia: Status: Chronic Code(s): D64.9 - Anemia, unspecified (3) Acute blood loss anemia: Status: Acute Code(s): D62 - Acute posthemorrhagic anemia (4) Parkinson disease: Status: Chronic Code(s): G20 - Parkinson's disease (5) HTN (hypertension): Status: Chronic Code(s): I10 - Essential (primary) hypertension Plan: 1. Acute blood loss anemia from upper GI bleed on a backdrop of chronic iron deficiency anemia requiring blood transfusion-exact source unknown #2 acute upper GI bleed-exact etiology unclear #3 essential hypertension #4 hyperlipidemia #5 Parkinson's disease #6 chronic iron deficiency anemia secondary to past history of gastric bypass and suspected chronic blood loss anemia #7 poor venous access #8 mild cognitive impairment-probably secondary to Parkinson's disease Medications at Discharge Home Medications carbidopa-levodopa 1 tab PO BID 11/29/18 oxybutynin chloride 10 mg PO DAILY 11/29/18 acetaminophen 1,000 mg PO Q8H PRN PRN 03/01/19 fluticasone propionate 2 spray NARES DAILY PRN 03/01/19 pantoprazole 40 mg PO BID 03/01/19 potassium chloride 10 meq PO QODAY 03/28/19 atorvastatin 10 mg PO QHS 05/01/21 bisacodyl [Dulcolax (bisacodyl)] 10 mg PO DAILY 05/01/21 cholecalciferol (vitamin D3) [Vitamin D3] 50 mcg PO DAILY 05/01/21 citalopram 10 mg PO DAILY 05/01/21 copper gluconate 4 mg PO DAILY 05/01/21 docusate sodium 100 mg PO BID 05/01/21 doxycycline hyclate [Vibramycin] 100 mg PO BID 05/01/21 furosemide 20 mg PO QODAY 05/01/21 losartan 25 mg PO DAILY 05/01/21 sennosides [senna] 8.6 mg PO QHS 05/01/21 zinc 50 mg PO DAILY 05/01/21 ferrous sulfate 325 mg PO BIDCM #0 tab 05/06/21 oxycodone 5 mg PO Q6H PRN 7 Days #10 tab 05/06/21 Hospital Course Operations None Procedures EGD Summary of Care Provided Minutes Spent on Discharge: 32 Hospital Course: This 76-year-old white female was brought in from a local skilled nursing at which she resides and was seen in the emergency room at [facility] with complaints of shortness of breath and some vague chest discomfort, patient had a history of Parkinson's disease and has some cognitive impairment. Patient also has a history of chronic anemia. Work-up in the emergency room included labs which showed hemoglobin of 5.5, rectal exam in the emergency room revealed some small hemorrhoids but no sign of inflammation or acute red rectal bleeding. Patient was admitted to [place] [id number], she was transfused a total of 4 units of packed red blood cells, she was seen and consultation by GI who performed an EGD which showed no sign of active bleeding. Patient had a history of iron deficiency anemia and was given Venofer. Patient underwent a second upper GI endoscopy to assess the upper gastrointestinal areas more thoroughly, again no evidence of active bleeding was seen and there was no evidence of neoplasm. On 05/06/2021, patient was seen and examined: On examination she appeared older than her stated age, she had some mild cognitive impairment, she does not appear to be in any distress. Vital signs as documented. Skin warm and dry and without overt rashes. Neck without JVD, thyroid appears normal, trachea is midline, neck is supple. Lungs clear, normal air movement was noted. Heart exam notable for regular rhythm, normal sounds and absence of murmurs, rubs or gallops. Abdomen unremarkable and without evidence of organomegaly, masses, or abdominal aortic enlargement, bowel sounds are present in all 4 quadrants, no abdominal tenderness was noted. Extremities nonedematous, no cyanosis was noted, no clubbing was noted. Neuro: Cranial nerves II through XII are grossly intact, no focal motor deficits were noted, sensation to light touch and pinprick is intact, motor exam 5/5 throughout. Psych: Patient is alert with some mild cognitive impairment. On 05/06/2021, patient was seen and examined and felt to be in stable condition for transfer back to the [facility] at which she resides. Weight / BMI Weight Weight: 62.6 kg Body Mass Index (BMI) 23.6 ABG / Lab / Microbiology Data Result Diagrams: 05/06/21 06:00 05/03/21 05:08 Laboratory: Laboratory Results - last 24 hr 05/06/21 06:00: Hgb 8.6 L, Hct 26.8 L Microbiology: Microbiology 05/06/21 15:05 Nasal Secretion SARS-CoV-2 Antigen (Rapid) - Final 05/01/21 13:30 Stool Stool Occult Blood (KYLE) - Final Occult Blood Positive 05/01/21 11:40 Nasal Secretion SARS-CoV-2 Antigen (Rapid) - Final Meaningful Use Info Meaningful Use Diagnoses (Choose all that apply): None applicable Discharge Plan Admission Admit Date/Time: 05/01/21 15:41 Primary Reason for Your Visit: upper GI bleed Attending Provider: Santos Garcia Primary Care Provider: Vianca Baca Consulting Providers: Todd Ma ; Avtar Fang Discharge Orders/Prescriptions Prescriptions: Continued carbidopa-levodopa 1 EACH tablet 1 tab PO BID RF: 0 oxybutynin chloride 5 MG tablet 10 mg PO DAILY RF: 0 acetaminophen 500 MG tablet 1,000 mg PO Q8H PRN PRN (Reason: Pain Score 1-10/10) RF: 0 fluticasone propionate 50 spray,suspension 2 spray NARES DAILY PRN (Reason: Allergies) RF: 0 pantoprazole 40 MG tablet 40 mg PO BID RF: 0 potassium chloride 20 MEQ tablet 10 meq PO QODAY RF: 0 sennosides [senna] 8.6 mg Tablet 8.6 mg PO QHS RF: 0 atorvastatin 10 mg tablet 10 mg PO QHS RF: 0 losartan 25 mg tablet 25 mg PO DAILY RF: 0 furosemide 20 mg tablet 20 mg PO QODAY RF: 0 docusate sodium 100 mg Tablet 100 mg PO BID RF: 0 doxycycline hyclate [Vibramycin] 100 mg Capsule 100 mg PO BID RF: 0 citalopram 10 mg Tablet 10 mg PO DAILY RF: 0 bisacodyl [Dulcolax (bisacodyl)] 5 mg Tablet,Delayed Release (Dr/Ec) 10 mg PO DAILY RF: 0 copper gluconate 2 mg Tablet 4 mg PO DAILY RF: 0 zinc 50 mg Capsule 50 mg PO DAILY RF: 0 cholecalciferol (vitamin D3) [Vitamin D3] 50 mcg (2,000 unit) Tablet 50 mcg PO DAILY RF: 0 oxycodone 5 mg Tablet 5 mg PO Q6H PRN (Reason: Pain) 7 Days Qty: 10 RF: 0 Changed ferrous sulfate 325 MG tablet 325 mg PO BIDCM Qty: 0 RF: 0 Discontinued aspirin [Aspir-81] 81 mg Tablet,Delayed Release (Dr/Ec) 81 mg PO BID RF: 0 Referrals / Follow Up: Vianca Baca MD [Primary Care Provider] - Todd Ma DO [STAFF PHYSICIAN] - See Referral Note (in 2 weeks) Disposition Disposition (needs filled in before D/C Order can be placed): Senior Living Facility Charges/Coding Visit Charges Inpatient E&M: 11522 Disch Hosp
== END 2021-05-06 18:00 | disposition skilled nursing facility (03) | DRG 812 ==
LOC: ED 15:11 → MS3 16:07
PROVIDERS: Anesthesiology; Internal Medicine Gastroenterology; Admitting Provider Family Medicine; Emergency Provider Emergency Medicine; PCP Internal Medicine; Visit Provider Internal Medicine
PROC: 0DJ08ZZ Inspection of Upper Intestinal Tract, Via Natural or Artificial Opening Endoscopic (ICD-10-PCS; principal; 2021-05-06 11:10)
DX: D62 Acute posthemorrhagic anemia (principal); K92.2 Gastrointestinal hemorrhage, unspecified; E87.2 Acidosis; K29.50 Unspecified chronic gastritis without bleeding; D50.9 Iron deficiency anemia, unspecified; E78.5 Hyperlipidemia, unspecified; F32.A Depression, unspecified; F41.9 Anxiety disorder, unspecified; G20 Parkinson's disease; G31.84 Mild cognitive impairment of uncertain or unknown etiology; G25.81 Restless legs syndrome; I10 Essential (primary) hypertension; I25.10 Atherosclerotic heart disease of native coronary artery without angina pectoris; K21.9 Gastro-esophageal reflux disease without esophagitis; I87.2 Venous insufficiency (chronic) (peripheral); I95.9 Hypotension, unspecified; M06.9 Rheumatoid arthritis, unspecified; M19.90 Unspecified osteoarthritis, unspecified site; Z78.0 Asymptomatic menopausal state; Z87.442 Personal history of urinary calculi; Z98.84 Bariatric surgery status; Z79.82 Long term (current) use of aspirin; Z79.899 Other long term (current) drug therapy
CPT/HCPCS: 36415; 71045; 76000; 80048; 80053; 82274; 83605; 84484; 85014; 85018; 85025; 85610; 85730; 86850; 86900; 86901; 86920; 86922; 87426; 88305; 88342; 93005; 97110; 97162; 97166; 97530; 97535; 99285; J7030; J7040; J7050; J7120; P9016; A4216; J2405; J2916

== ENCOUNTER → 2021-05-10 05:00 | Outpatient (REF) | payer MEDICARE, OTHER, SELFPAY ==
[2021-05-10 07:53] LABS: Hematocrit 31.5 % (37-47); Hemoglobin 10.1 g/dL (12.0-15.0); Mean Corp Hgb Conc 32.1 g/dL (32-36); Mean Corpuscular Hgb 31.7 pg (27.0-32.0); Mean Corpuscular Volume 98.7 fL (81-99); Mean Platelet Vol. 10.5 fl (6.2-12.0); Platelet Count 250 K/mm3 (150-450); RBC Distribution Width CV 16.3 % (11.6-14.6); RBC Distribution Width SD 59.6 fl (35.1-43.9); Red Blood Count 3.19 M/mm3 (4.2-5.4); White Blood Count 8.4 K/mm3 (4.4-11.0)
== END ==
LOC: OLS.WHLTCC 05:00
PROVIDERS: PCP Internal Medicine; Visit Provider Family Medicine
DX: K92.2 Gastrointestinal hemorrhage, unspecified (principal); D62 Acute posthemorrhagic anemia; M62.81 Muscle weakness (generalized); R26.2 Difficulty in walking, not elsewhere classified; Z47.1 Aftercare following joint replacement surgery; Z96.652 Presence of left artificial knee joint
CPT/HCPCS: 36415; 85027

== ENCOUNTER → 2021-05-17 05:00 | Outpatient (REF) | payer MEDICARE, OTHER, SELFPAY ==
[2021-05-17 06:44] LABS: Absolute Lymphocyte Count 1.09 X10^3/uL (0.83-4.51); Absolute Neutrophil Count 3.3 X10^3/uL (2.0-7.7); Basophil# 0.04 X10^3/uL; Basophil% 0.8 % (0-1); Eosinophil# 0.29 X10^3/uL; Eosinophils% 5.6 % (0-5); Hematocrit 27.1 % (37-47); Hemoglobin 8.5 g/dL (12.0-15.0); Lymphocyte # 1.09 X10^3/ul (0.83-4.51); Mean Corp Hgb Conc 31.4 g/dL (32-36); Mean Corpuscular Hgb 31.5 pg (27.0-32.0); Mean Corpuscular Volume 100.4 fL (81-99); Mean Platelet Vol. 10.5 fl (6.2-12.0); Monocyte# 0.48 X10^3/uL; Monocyte% 9.2 % (0-10); NRBC Flagged by Analyzer 0 % (0-5); Neutrophil # 3.25 X10^3/uL (2.7-7.7); Neutrophil % 62.6 % (47-70); Platelet Count 200 K/mm3 (150-450); RBC Distribution Width CV 15.2 % (11.6-14.6); RBC Distribution Width SD 56.5 fl (35.1-43.9); White Blood Count 5.2 K/mm3 (4.4-11.0)
[2021-05-18 05:57] LABS: Anion Gap 5 (5-15); BUN 14 mg/dL (7-18); BUN/Creat Ratio 19.3 RATIO (10-20); Calcium,Total 7.6 mg/dL (8.5-10.1); Chloride 110 mmol/L (98-107); Creatinine, Serum 0.73 mg/dL (0.55-1.02); EST Glomerular Filtration Rate 83 mL/min (>60); Est Glom Filt Rate - Afr Amer 100 mL/min (>60); Glucose 80 mg/dL (74-106); Potassium 3.9 mmol/L (3.5-5.1); Sodium Level 140 mmol/L (136-145)
== END ==
LOC: OLS.WHLEAS 05:00
PROVIDERS: PCP Internal Medicine; Visit Provider Family Medicine
DX: K92.2 Gastrointestinal hemorrhage, unspecified (principal); D62 Acute posthemorrhagic anemia; M62.81 Muscle weakness (generalized); R26.2 Difficulty in walking, not elsewhere classified; Z96.652 Presence of left artificial knee joint; Z47.1 Aftercare following joint replacement surgery
CPT/HCPCS: 36415; 80048; 85025

== ENCOUNTER 2021-05-24 05:00 | Outpatient (REF) | payer MEDICARE, OTHER, SELFPAY ==
[2021-05-24 06:51] LABS: Absolute Lymphocyte Count 1.21 X10^3/uL (0.83-4.51); Absolute Neutrophil Count 2.3 X10^3/uL (2.0-7.7); Basophil# 0.02 X10^3/uL; Basophil% 0.5 % (0-1); Eosinophil# 0.27 X10^3/uL; Eosinophils% 6.4 % (0-5); Hematocrit 25.8 % (37-47); Lymphocyte # 1.21 X10^3/ul (0.83-4.51); Lymphocyte % 28.7 % (19-41); Mean Corpuscular Hgb 31.1 pg (27.0-32.0); Mean Corpuscular Volume 100.4 fL (81-99); Mean Platelet Vol. 10.6 fl (6.2-12.0); Monocyte# 0.35 X10^3/uL; Monocyte% 8.3 % (0-10); NRBC Flagged by Analyzer 0 % (0-5); Neutrophil # 2.34 X10^3/uL (2.7-7.7); Neutrophil % 55.6 % (47-70); Platelet Count 177 K/mm3 (150-450); RBC Distribution Width CV 15.2 % (11.6-14.6); RBC Distribution Width SD 55.4 fl (35.1-43.9); Red Blood Count 2.57 M/mm3 (4.2-5.4); White Blood Count 4.2 K/mm3 (4.4-11.0)
== END 2021-05-24 23:59 | disposition home or self-care (01) ==
LOC: OLS.WHLEAS 05:00
PROVIDERS: PCP Internal Medicine; Visit Provider Family Medicine
DX: K92.2 Gastrointestinal hemorrhage, unspecified (principal); D62 Acute posthemorrhagic anemia; M62.81 Muscle weakness (generalized); R26.2 Difficulty in walking, not elsewhere classified; Z47.1 Aftercare following joint replacement surgery; Z96.652 Presence of left artificial knee joint
CPT/HCPCS: 36415; 85025

== ENCOUNTER 2021-10-27 19:43 | Emergency (ER) | payer MEDICARE, OTHER, SELFPAY ==
[2021-10-27 19:44] VITALS: BP 124/60; PULSE 74; RESP 15; TEMP 36.7; O2SAT 99; BMI 23.8
--- NOTE | 2021-10-27 20:19 | EKG12_ITS ---
Test Reason : DYSRHYTHMIA Blood Pressure : / mmHG Vent. Rate : 065 BPM Atrial Rate : 625 BPM P-R Int : 000 ms QRS Dur : 206 ms QT Int : 518 ms P-R-T Axes : 000 -82 085 degrees QTc Int : 538 ms Ventricular-paced rhythm Abnormal ECG Confirmed by DOMINGO MORENO, KOBI ([id number]), acquisitions editor DEBBIE BARCENAS ([id number]) on 10/28/2021 11:24:56 AM Referred By: ELLE Confirmed By:KOBI LANE MD
--- NOTE | 2021-10-27 20:20 | EDS_ITS ---
HPI History of Present Illness Chief Complaint: General Illness Narrative Narrative: Patient presents with her son because of generalized weakness that she has had for days to weeks. She states I have not felt myself in quite some time. Son states that she has been generally weak and more lethargic. She might have a urinary tract infection. A few weeks ago, she had a bout of diarrhea that lasted a few days. No fevers or chills. Additionally, he relates history that she had a remote GI bleed and was anemic previously. Her past medical history includes rheumatoid arthritis and although Parkinson disease is listed, she states that she takes a medication for restless leg. She lives at home alone. However, son states that there are many of her family that check on her and care for her. He is concerned regarding her being generally weak, and sleeping more. [facility] Medical History Anxiety CAD (coronary artery disease) Depression Dyspnea GERD (gastroesophageal reflux disease) GI bleed HTN (hypertension) Hyperlipidemia Iron deficiency anemia Kidney stones Osteoarthritis Pacemaker Parkinson disease Post-menopausal Restless legs Rheumatoid arthritis Home Medications carbidopa-levodopa 1 tab PO BID 11/29/18 [History Last Taken 05/01/21] oxybutynin chloride 10 mg PO DAILY 11/29/18 [History Last Taken 03/01/19] pantoprazole 40 mg PO BID 03/01/19 [History Last Taken 05/01/21] potassium chloride 10 meq PO QODAY 03/28/19 [History Last Taken Unknown] atorvastatin 10 mg PO QHS 05/01/21 [History Last Taken Unknown] cholecalciferol (vitamin D3) [Vitamin D3] 50 mcg PO DAILY 05/01/21 [History Last Taken Unknown] citalopram 10 mg PO DAILY 05/01/21 [History Last Taken Unknown] copper gluconate 4 mg PO DAILY 05/01/21 [History Last Taken Unknown] doxycycline hyclate [Vibramycin] 100 mg PO BID 05/01/21 [History Last Taken Unknown] furosemide 20 mg PO QODAY 05/01/21 [History Last Taken Unknown] losartan 25 mg PO DAILY 05/01/21 [History Last Taken Unknown] zinc 50 mg PO DAILY 05/01/21 [History Last Taken Unknown] ferrous sulfate 325 mg PO BIDCM #0 tab 05/06/21 [Rx Last Taken 03/01/19] sulfamethoxazole-trimethoprim [Bactrim DS] 1 tab PO BID #14 tab 10/27/21 [Rx Last Taken Unknown] Allergy/AdvReac Type Severity Reaction Status Date / Time amoxicillin Allergy Itching Verified 10/27/21 19:46 Penicillins Allergy Itching Verified 10/27/21 19:46 Family History Other Diabetes Hypertension Surgical History History of total knee replacement (TKR) S/P hysterectomy Social History Smoking Status: Never smoker ROS ROS ED ROS Narrative Constitutional: No fever, no chills. Generalized weakness. HEENT: No sore throat. No neck pain. No loss of vision. No rhinorrhea. Cardiovascular: No chest pain. No palpitations. No pedal edema. Respiratory: No cough, no shortness of breath. Abdominal: No abdominal pain. No nausea. No vomiting. Diarrhea has resolved. Genitourinary: No dysuria. No hematuria. Musculoskeletal: No myalgias. No arthralgias. Neurologic: No headaches. No dizziness. No lightheadedness. Generalized weakness. Skin: No rash. No change in color. Psychiatric: No depression. No anxiety. EXAM Physical Exam Narrative Exam Narrative: Afebrile. Vital signs noted. HEENT: Normocephalic. Atraumatic. PERRL, EOMI. Neck soft and supple. No point tenderness or step off. Cardiovascular: Regular rate and rhythm. No murmurs, rubs, or gallops appreciated. Respiratory: No tachypnea. Lungs clear to auscultation bilaterally. Gastrointestinal: Abdomen soft, nontender, with normoactive bowel sounds. No rebound or guarding. Neurological: Awake. Alert. 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 Nonfocal, nonlateralizing. Ambulates to bathroom with a walker. Skin: No rash. Normal color. No pallor. Musculoskeletal: No pedal edema. Full range of motion extremities. Const Vital Signs: 10/27/21 19:44 10/27/21 21:44 10/27/21 23:00 Temperature 98.1 F Temperature Source Temporal Pulse Rate 74 71 70 Respiratory Rate 15 18 17 Blood Pressure 124/60 H 134/49 H 131/52 H Blood Pressure Mean 81 77 78 Pulse Ox 99 99 98 Oxygen Delivery Method Room Air Room Air Room Air MDM MDM MDM Narrative Medical decision making narrative: Comprehensive work-up was pursued. My concern is for electrolyte imbalance given her bout of diarrhea. Additionally, she may have a urinary tract infection. She was unable to produce a urine sample initially. She was bolused normal saline 1 L intravenously. EKG demonstrates a ventricular paced rhythm at 65 bpm without ectopy or acute ST changes. No STEMI. CBC shows normal white count of 7.2, hemoglobin slightly low at 9.6 but this is improved over her previous. Platelet count normal at 176. Potassium slightly low at 3.2 which can be replaced orally. Creatinine slightly elevated at 1.38. Troponin is negative at 6. Urinalysis shows WBCs 25-50 with positive nitrites. There is 4+ bacteria. This was sent for culture. Chest x-ray read by myself shows no evidence of an acute process, no infiltrate. I do feel her generalized weakness may be secondary to a urinary tract infection. In discussion with initially her son, then her daughter, they do not want her placed in rehab and do not feel that she would require admission. They state that they have sufficient help at home. Patient has an allergy to amoxicillin and penicillins so Keflex would not necessarily be a good choice for her. I do not want to put her on Macrobid or fluoroquinolone. She was given her first dose of Bactrim DS here in the emergency department and a prescription written for the next 7 days. She will follow-up with her primary care physician. I feel she be discharged safely home with follow-up. Return instructions to the emergency department were reviewed. Family is comfortable with the plan. Disposition is discharged in stable condition. Lab Data Attestation: I reviewed the patient's lab results. Labs: Laboratory Results - last 24 hr 10/27/21 10/27/21 10/27/21 20:20 20:20 22:33 WBC 7.2 RBC 2.89 L Hgb 9.6 L Hct 30.0 L MCV 103.8 H MCH 33.2 H MCHC 32.0 RDW Std Deviation 49.8 H RDW Coeff of Erma 13.2 Plt Count 176 MPV 10.3 Immature Gran % (Auto) 4.200 H Neut % (Auto) 72.7 H Lymph % (Auto) 10.0 L [place] % (Auto) 9.6 Eos % (Auto) 2.9 Baso % (Auto) 0.6 Absolute Neuts (auto) 5.2 Absolute Lymphs (auto) 0.72 L Nucleated RBC % 0 Sodium 139 Potassium 3.2 L Chloride 109 H Carbon Dioxide 20.0 L Anion Gap 10 BUN 44 H Creatinine 1.38 H Estim Creat Clear Calc 30.23 Est GFR (MDRD) Af Amer 48 L Est GFR (MDRD) Non-Af 39 L BUN/Creatinine Ratio 31.9 H Glucose 98 Calcium 7.7 L Total Bilirubin 0.40 AST 20 ALT 15 Alkaline Phosphatase 115 Troponin I High Sens 6 Total Protein 5.6 L Albumin 2.5 L Globulin 3.1 Albumin/Globulin Ratio 0.8 L Urine Color Straw Urine Clarity Sl. Cloudy Urine pH 6.0 Ur Specific [place] 1.010 Urine Protein 15 H Urine Glucose (UA) Normal Urine Ketones Negative Urine Occult Blood 10 H Urine Nitrite Positive H Urine Bilirubin Negative Urine Urobilinogen Normal Ur Leukocyte Esterase 500 H Urine RBC 0-5 SEEN Urine WBC 25-50 SEEN Ur Squamous Epith Cells 0-5 SEEN Urine Bacteria 4+ Urine Mucus 0 SEEN Radiography Diagnostic Testing: Clinical Impression(s) from Imaging Studies Chest X-Ray 10/27/21 20:30 IMPRESSION: Degenerative changes, as described above. No demonstrated acute cardiopulmonary process. Electronically Signed: Mark Shirley MD at 22:44 EDT Reading Location ID and State: [address] [place] [address] , Service support , Discharge Plan Triage Chief Complaint: General Illness ED Provider: Ja Richter Dx/Rx/DC Orders Clinical Impression: UTI (urinary tract infection), Generalized weakness Instructions: ED CYSTITIS Female Adult, ED Weakness (Uncertain Cause) Prescriptions: New sulfamethoxazole-trimethoprim [Bactrim DS] 800-160 mg tablet 1 tab PO BID Qty: 14 RF: 0 No Action carbidopa-levodopa 1 EACH tablet 1 tab PO BID RF: 0 oxybutynin chloride 5 MG tablet 10 mg PO DAILY RF: 0 pantoprazole 40 MG tablet 40 mg PO BID RF: 0 potassium chloride 20 MEQ tablet 10 meq PO QODAY RF: 0 atorvastatin 10 mg tablet 10 mg PO QHS RF: 0 losartan 25 mg tablet 25 mg PO DAILY RF: 0 furosemide 20 mg tablet 20 mg PO QODAY RF: 0 doxycycline hyclate [Vibramycin] 100 mg Capsule 100 mg PO BID RF: 0 citalopram 10 mg Tablet 10 mg PO DAILY RF: 0 copper gluconate 2 mg Tablet 4 mg PO DAILY RF: 0 zinc 50 mg Capsule 50 mg PO DAILY RF: 0 cholecalciferol (vitamin D3) [Vitamin D3] 50 mcg (2,000 unit) Tablet 50 mcg PO DAILY RF: 0 ferrous sulfate 325 MG tablet 325 mg PO BIDCM Qty: 0 RF: 0 Primary Care Provider: Vianca Baca Referrals: Vianca Baca MD [Primary Care Provider] - 3-5 Days if not improving Disposition Disposition: Home, Self Care
[2021-10-27] MEDS: 0.9% Normal Saline 1,000 ML 1000 ML IV (20:29)
--- NOTE | 2021-10-27 20:30 | RAD_ITS ---
STUDY: X-RAY CHEST REASON FOR EXAM: Female, 76 years old. Fatigue, Malaise, CAD TECHNIQUE: Single AP portable view of the chest. COMPARISON: May 01, 2021 FINDINGS: Dual-chamber pacemaker device on the left is stable. The lungs are clear and expanded. There is no demonstrated pleural abnormality. Sternal cerclage wires are present from a prior sternotomy. Normal mediastinum and wale. Normal visualized pulmonary arteries. Normal visualized aortic arch and descending thoracic aorta. There is a dextroscoliosis of the thoracic spine. There is right shoulder replacement. There is degenerative change of the left shoulder. There is postoperative change of the upper abdomen. RAD/Chest 1 View (Portable) IMPRESSION: Degenerative changes, as described above. No demonstrated acute cardiopulmonary process. Electronically Signed: Mark Shirley MD at 22:44 EDT ,
[2021-10-27 21:18] LABS: Absolute Lymphocyte Count 0.72 X10^3/uL (0.83-4.51); Absolute Neutrophil Count 5.2 X10^3/uL (2.0-7.7); Basophil# 0.04 X10^3/uL; Basophil% 0.6 % (0-1); Eosinophil# 0.21 X10^3/uL; Eosinophils% 2.9 % (0-5); Hemoglobin 9.6 g/dL (12.0-15.0); Lymphocyte # 0.72 X10^3/ul (0.83-4.51); Mean Corpuscular Hgb 33.2 pg (27.0-32.0); Mean Corpuscular Volume 103.8 fL (81-99); Mean Platelet Vol. 10.3 fl (6.2-12.0); Monocyte# 0.69 X10^3/uL; Monocyte% 9.6 % (0-10); NRBC Flagged by Analyzer 0 % (0-5); Neutrophil # 5.23 X10^3/uL (2.7-7.7); Neutrophil % 72.7 % (47-70); Platelet Count 176 K/mm3 (150-450); RBC Distribution Width CV 13.2 % (11.6-14.6); RBC Distribution Width SD 49.8 fl (35.1-43.9); Red Blood Count 2.89 M/mm3 (4.2-5.4); White Blood Count 7.2 K/mm3 (4.4-11.0)
[2021-10-27 21:36] LABS: ALB/GLOB Ratio 0.8 RATIO (0.9-2.4); AST(SGOT) 20 U/L (15-37); Alanine Aminotransfer ALT/SGPT 15 U/L (13-56); Albumin, Serum 2.5 g/dL (3.2-5.0); Alkaline Phosphatase 115 U/L (45-117); Anion Gap 10 (5-15); BUN 44 mg/dL (7-18); BUN/Creat Ratio 31.9 RATIO (10-20); Calcium,Total 7.7 mg/dL (8.5-10.1); Chloride 109 mmol/L (98-107); Creatinine, Serum 1.38 mg/dL (0.55-1.02); EST Glomerular Filtration Rate 39 mL/min (>60); Est Glom Filt Rate - Afr Amer 48 mL/min (>60); Estimated Creatinine Clearance 30.23 ml/min; Globulin 3.1 g/dL (2.2-4.2); Glucose 98 mg/dL (74-106); Potassium 3.2 mmol/L (3.5-5.1); Protein, Total 5.6 g/dL (6.4-8.2); Sodium Level 139 mmol/L (136-145); Troponin-I HS 6 pg/mL (3.0-54.0)
[2021-10-27 21:44] VITALS: BP 134/49; PULSE 71; RESP 18; O2SAT 99
[2021-10-27] MEDS: Potassium Chloride Oral Tablet 20 MEQ 40 MEQ PO (22:05)
[2021-10-27 22:37] LABS: Mucous, Urine 0 SEEN /hpf (<or=2+)
[2021-10-27 22:41] LABS: Color, Urine Straw (Yellow); Glucose, Dipstick Normal (Normal); Ketone-Dipstick Negative (Negative); Leukocyte Esterase-Dipstick 500 /ul (Negative); Nitrite-Dipstick Positive (Negative); Occult Blood-Urine 10 /ul (Negative); Protein-Dipstick 15 mg/dl (Negative); Urine Bilirubin Dipstick Negative (Negative); Urine Clarity Sl. Cloudy (Clear); Urine Urobilinogen Normal (Normal)
[2021-10-27 22:57] LABS: White Blood Cells 25-50 SEEN /hpf (0-5)
[2021-10-27 22:58] LABS: Bacteria 4+ /hpf (None Seen); Red Blood Cells-Urine 0-5 SEEN /hpf (0-5); Squamous Epithelial Cells - UA 0-5 SEEN /hpf (5-10)
[2021-10-27 23:00] VITALS: BP 131/52; PULSE 70; RESP 17; O2SAT 98
[2021-10-27 23:20] VITALS: BP 131/50; PULSE 68; RESP 17; O2SAT 97
[2021-10-27] MEDS: Smz/Tmp Ds Tablet 1 TABLET PO (23:22)
== END 2021-10-27 23:37 | disposition home or self-care (01) ==
PROVIDERS: Emergency Provider Emergency Medicine; PCP Internal Medicine; Visit Provider Emergency Medicine
DX: N39.0 Urinary tract infection, site not specified (principal); G20 Parkinson's disease; M06.9 Rheumatoid arthritis, unspecified; F41.9 Anxiety disorder, unspecified; I25.10 Atherosclerotic heart disease of native coronary artery without angina pectoris; F32.A Depression, unspecified; K21.9 Gastro-esophageal reflux disease without esophagitis; E78.5 Hyperlipidemia, unspecified; Z78.0 Asymptomatic menopausal state; Z79.899 Other long term (current) drug therapy; D50.9 Iron deficiency anemia, unspecified; Z87.19 Personal history of other diseases of the digestive system; Z87.442 Personal history of urinary calculi; G25.81 Restless legs syndrome
CPT/HCPCS: 71045; 80053; 81001; 84484; 85025; 87086; 87088; 87186; 93005; 96360; 96361; 99284; J7030; A4216

== ENCOUNTER 2021-10-30 12:44 | Emergency (ER) | payer MEDICARE, OTHER, SELFPAY ==
[2021-10-30 12:46] VITALS: BP 135/63; PULSE 69; RESP 18; TEMP 36.3; O2SAT 100; BMI 23.8
--- NOTE | 2021-10-30 13:41 | EX.ED.DYSGE1 ---
HPI History of Present Illness Chief Complaint: Fatigue Informant: patient Narrative Narrative: Patient is a 76-year-old with recent diagnosis of urinary tract infection put on Bactrim, frequent diarrhea and history of GI bleed presenting from home for generalized weakness. Patient's continue to have chills and dysuria. She has low back pain. Patient denies any nausea or vomiting. Chart review from ER visit on 10/27 showed a hemoglobin of 9.6 which is stable and a creatinine of 1.38 which is also stable. Her urine culture grew E. coli resistant to Bactrim. Patient was home alone but does have family that helps her. No report of any falls. No other complaints at this time. [facility] Medical History Anxiety CAD (coronary artery disease) Depression Dyspnea GERD (gastroesophageal reflux disease) GI bleed HTN (hypertension) Hyperlipidemia Iron deficiency anemia Kidney stones Osteoarthritis Pacemaker Parkinson disease Post-menopausal Restless legs Rheumatoid arthritis Home Medications carbidopa-levodopa 1 tab PO BID 11/29/18 [History Last Taken 05/01/21] oxybutynin chloride 10 mg PO DAILY 11/29/18 [History Last Taken 03/01/19] pantoprazole 40 mg PO BID 03/01/19 [History Last Taken 05/01/21] potassium chloride 10 meq PO QODAY 03/28/19 [History Last Taken Unknown] atorvastatin 10 mg PO QHS 05/01/21 [History Last Taken Unknown] cholecalciferol (vitamin D3) [Vitamin D3] 50 mcg PO DAILY 05/01/21 [History Last Taken Unknown] citalopram 10 mg PO DAILY 05/01/21 [History Last Taken Unknown] copper gluconate 4 mg PO DAILY 05/01/21 [History Last Taken Unknown] doxycycline hyclate [Vibramycin] 100 mg PO BID 05/01/21 [History Last Taken Unknown] furosemide 20 mg PO QODAY 05/01/21 [History Last Taken Unknown] losartan 25 mg PO DAILY 05/01/21 [History Last Taken Unknown] zinc 50 mg PO DAILY 05/01/21 [History Last Taken Unknown] ferrous sulfate 325 mg PO BIDCM #0 tab 05/06/21 [Rx Last Taken 03/01/19] sulfamethoxazole-trimethoprim [Bactrim DS] 1 tab PO BID #14 tab 10/27/21 [Rx Last Taken Unknown] cephalexin 500 mg PO Q12 #14 cap 10/30/21 [Rx Last Taken Unknown] Allergy/AdvReac Type Severity Reaction Status Date / Time amoxicillin Allergy Itching Verified 10/30/21 12:45 Penicillins Allergy Itching Verified 10/30/21 12:45 Family History Other Diabetes Hypertension Surgical History History of total knee replacement (TKR) S/P hysterectomy Social History Smoking Status: Never smoker ROS ROS ED Constitutional Constitutional ED: Reports chills; Denies fever(s) Eyes Eyes: Denies blurry vision or change in vision ENT ENT ED: Denies rhinorrhea or sore throat Cardiovascular Cardiovascular: Denies chest pain or palpitations Respiratory/Chest Respiratory/Chest: Denies dyspnea Gastrointestinal Gastrointestinal: Reports diarrhea; Denies abdominal pain, nausea or vomiting Genitourinary Genitourinary ED: Reports dysuria; Denies hematuria Musculoskeletal Musculoskeletal: Reports back pain; Denies arthralgias or myalgias Integumentary Denies rash Neurologic Neurologic: Reports weakness; Denies headache(s) or paresthesias Psychiatric Psychiatric: Denies depression EXAM Physical Exam Const Vital Signs: 10/30/21 12:46 10/30/21 12:54 Temperature 97.3 F L Temperature Source Temporal Pulse Rate 69 Respiratory Rate 18 Respiratory Effort Normal Respiratory Pattern Normal Blood Pressure 135/63 H Blood Pressure Mean 87 Pulse Ox 100 Oxygen Delivery Method Room Air Positive well nourished and well developed General Appearance ED: well developed and NAD HEENT Reports moist mucous membranes Negative for tenderness Eyes PERRL and EOMs intact bilaterally Neck supple and no JVD Chest Wall inspection of chest normal Resp normal respiratory effort and clear to auscultation bilaterally Cardio regular rate, regular rhythm and no murmurs GI normal to inspection, nondistended, normoactive bowel sounds and non-tender Palpation: soft Back/Spine no CVA tenderness Extremity normal to inspection General Extremety ED: Negative for edema or tenderness General Extremity: Negative for edema Neuro oriented x3 and CN's II-XII intact bilaterally Sensorium / Orientation: alert Motor Exam: strength 5/5 throughout Psych mental status grossly normal Skin no rashes or lesions noted and no wounds MDM MDM MDM Narrative Medical decision making narrative: Patient is evaluated for generalized weakness and malaise. She was diagnosed with urinary tract infection 3 days ago but does not feel that she is improving. She has chronic diarrhea which has continued. Patient is hemodynamically stable with normal vital signs. She has a stable and normal white blood cell count. Her hemoglobin is stable at 9.2. 2 days ago it was 9.6. She continues to have a left shift. Creatinine is stable at 1.39. No significant electrode abnormalities and her potassium is normalized compared to prior ER visit. Urinalysis continues to have 2+ bacteria and culture from 3 days ago is presumptive E. coli that is resistant to Bactrim. Patient is given a dose of Rocephin in the ER. She will be switched to Keflex. Given her stable vital signs and stable blood work I do not think she requires admission. Would not consider this a failure of outpatient antibiotic treatment as her prior antibiotic was resistant. I did obtain stool occult given the patient is have a history of GI bleeding and her hemoglobin is slightly lower. This is negative and she has brown stool. I do not suspect a recurrent GI bleed at this time. Patient will follow-up with her primary care doctor. Patient and son are agreeable this plan of care. Patient feels safe going home. Lab Data Attestation: I reviewed the patient's lab results. Labs: Laboratory Results - last 24 hr 10/30/21 10/30/21 10/30/21 13:45 13:45 14:10 WBC 8.4 RBC 2.76 L Hgb 9.2 L Hct 28.3 L MCV 102.5 H MCH 33.3 H MCHC 32.5 RDW Std Deviation 47.0 H RDW Coeff of Erma 12.6 Plt Count 284 MPV 9.6 Immature Gran % (Auto) 4.300 H Neut % (Auto) 75.4 H Lymph % (Auto) 11.6 L [place] % (Auto) 6.8 Eos % (Auto) 1.5 Baso % (Auto) 0.4 Absolute Neuts (auto) 6.4 Absolute Lymphs (auto) 0.98 Nucleated RBC % 0 Sodium 138 Potassium 4.1 Chloride 111 H Carbon Dioxide 21.0 Anion Gap 6 BUN 21 H Creatinine 1.39 H Estim Creat Clear Calc 30.01 Est GFR (MDRD) Af Amer 47 L Est GFR (MDRD) Non-Af 39 L BUN/Creatinine Ratio 15.1 Glucose 85 Calcium 8.1 L Total Bilirubin 0.30 AST 13 L ALT 9 L Alkaline Phosphatase 100 Total Protein 6.3 L Albumin 2.5 L Globulin 3.8 Albumin/Globulin Ratio 0.7 L Urine Color Yellow Urine Clarity Clear Urine pH 6.0 Ur Specific [place] 1.010 Urine Protein Negative Urine Glucose (UA) Normal Urine Ketones Negative Urine Occult Blood Negative Urine Nitrite Positive H Urine Bilirubin Negative Urine Urobilinogen Normal Ur Leukocyte Esterase 25 H Urine RBC 0 SEEN Urine WBC 0-5 SEEN Ur Squamous Epith Cells 0 SEEN Urine Bacteria 2+ Urine Mucus 0 SEEN Discharge Plan Triage Chief Complaint: Fatigue ED Provider: Danni Cook Dx/Rx/DC Orders Clinical Impression: UTI (urinary tract infection), Generalized weakness, Anemia Instructions: ED CYSTITIS Female Adult Prescriptions: New cephalexin 500 mg capsule 500 mg PO Q12 Qty: 14 RF: 0 No Action carbidopa-levodopa 1 EACH tablet 1 tab PO BID RF: 0 oxybutynin chloride 5 MG tablet 10 mg PO DAILY RF: 0 pantoprazole 40 MG tablet 40 mg PO BID RF: 0 potassium chloride 20 MEQ tablet 10 meq PO QODAY RF: 0 atorvastatin 10 mg tablet 10 mg PO QHS RF: 0 losartan 25 mg tablet 25 mg PO DAILY RF: 0 furosemide 20 mg tablet 20 mg PO QODAY RF: 0 doxycycline hyclate [Vibramycin] 100 mg Capsule 100 mg PO BID RF: 0 citalopram 10 mg Tablet 10 mg PO DAILY RF: 0 copper gluconate 2 mg Tablet 4 mg PO DAILY RF: 0 zinc 50 mg Capsule 50 mg PO DAILY RF: 0 cholecalciferol (vitamin D3) [Vitamin D3] 50 mcg (2,000 unit) Tablet 50 mcg PO DAILY RF: 0 ferrous sulfate 325 MG tablet 325 mg PO BIDCM Qty: 0 RF: 0 sulfamethoxazole-trimethoprim [Bactrim DS] 800-160 mg tablet 1 tab PO BID Qty: 14 RF: 0 Primary Care Provider: Vianca Baca Referrals: Vianca Baca MD [Primary Care Provider] - Activity Restrictions/Additional Instructions: Stop taking the Bactrim that you prescribed 3 days ago. You have been prescribed a new antibiotic instead. There is no signs of recurrent GI bleeding at this time. Follow-up with your primary care doctor as scheduled. Disposition Disposition: Home, Self Care
[2021-10-30] MEDS: Ceftriaxone 1 GM/50 ML BAG IV (13:56)
[2021-10-30 13:59] LABS: Absolute Lymphocyte Count 0.98 X10^3/uL (0.83-4.51); Absolute Neutrophil Count 6.4 X10^3/uL (2.0-7.7); Basophil# 0.03 X10^3/uL; Basophil% 0.4 % (0-1); Eosinophil# 0.13 X10^3/uL; Eosinophils% 1.5 % (0-5); Hematocrit 28.3 % (37-47); Hemoglobin 9.2 g/dL (12.0-15.0); Lymphocyte # 0.98 X10^3/ul (0.83-4.51); Lymphocyte % 11.6 % (19-41); Mean Corp Hgb Conc 32.5 g/dL (32-36); Mean Corpuscular Hgb 33.3 pg (27.0-32.0); Mean Corpuscular Volume 102.5 fL (81-99); Mean Platelet Vol. 9.6 fl (6.2-12.0); Monocyte# 0.57 X10^3/uL; Monocyte% 6.8 % (0-10); NRBC Flagged by Analyzer 0 % (0-5); Neutrophil # 6.35 X10^3/uL (2.7-7.7); Neutrophil % 75.4 % (47-70); Platelet Count 284 K/mm3 (150-450); RBC Distribution Width CV 12.6 % (11.6-14.6); Red Blood Count 2.76 M/mm3 (4.2-5.4); White Blood Count 8.4 K/mm3 (4.4-11.0)
[2021-10-30 14:15] LABS: ALB/GLOB Ratio 0.7 RATIO (0.9-2.4); AST(SGOT) 13 U/L (15-37); Alanine Aminotransfer ALT/SGPT 9 U/L (13-56); Albumin, Serum 2.5 g/dL (3.2-5.0); Alkaline Phosphatase 100 U/L (45-117); Anion Gap 6 (5-15); BUN 21 mg/dL (7-18); BUN/Creat Ratio 15.1 RATIO (10-20); Calcium,Total 8.1 mg/dL (8.5-10.1); Chloride 111 mmol/L (98-107); Creatinine, Serum 1.39 mg/dL (0.55-1.02); EST Glomerular Filtration Rate 39 mL/min (>60); Est Glom Filt Rate - Afr Amer 47 mL/min (>60); Estimated Creatinine Clearance 30.01 ml/min; Globulin 3.8 g/dL (2.2-4.2); Glucose 85 mg/dL (74-106); Potassium 4.1 mmol/L (3.5-5.1); Protein, Total 6.3 g/dL (6.4-8.2); Sodium Level 138 mmol/L (136-145)
[2021-10-30 14:16] LABS: Mucous, Urine 0 SEEN /hpf (<or=2+); Red Blood Cells-Urine 0 SEEN /hpf (0-5); Squamous Epithelial Cells - UA 0 SEEN /hpf (5-10)
[2021-10-30 14:18] LABS: Color, Urine Yellow (Yellow); Glucose, Dipstick Normal (Normal); Ketone-Dipstick Negative (Negative); Leukocyte Esterase-Dipstick 25 /ul (Negative); Nitrite-Dipstick Positive (Negative); Occult Blood-Urine Negative /ul (Negative); Protein-Dipstick Negative (Negative); Urine Bilirubin Dipstick Negative (Negative); Urine Clarity Clear (Clear); Urine Urobilinogen Normal (Normal)
[2021-10-30 14:29] LABS: Bacteria 2+ /hpf (None Seen); White Blood Cells 0-5 SEEN /hpf (0-5)
== END 2021-10-30 15:57 | disposition home or self-care (01) ==
PROVIDERS: Emergency Provider Emergency Medicine; PCP Internal Medicine; Visit Provider Emergency Medicine
DX: N39.0 Urinary tract infection, site not specified (principal); G20 Parkinson's disease; M06.9 Rheumatoid arthritis, unspecified; B96.20 Unspecified Escherichia coli [E. coli] as the cause of diseases classified elsewhere; I25.10 Atherosclerotic heart disease of native coronary artery without angina pectoris; I10 Essential (primary) hypertension; E78.5 Hyperlipidemia, unspecified; R19.7 Diarrhea, unspecified; Z87.19 Personal history of other diseases of the digestive system; F41.9 Anxiety disorder, unspecified; K21.9 Gastro-esophageal reflux disease without esophagitis; Z87.442 Personal history of urinary calculi; M19.90 Unspecified osteoarthritis, unspecified site; Z78.0 Asymptomatic menopausal state; Z79.899 Other long term (current) drug therapy; D50.9 Iron deficiency anemia, unspecified
CPT/HCPCS: 80053; 81001; 82274; 85025; 96365; 99283; A4216

== ENCOUNTER 2022-05-30 11:46 | Inpatient (IN) | payer MEDICARE, OTHER, SELFPAY ==
[2022-05-30] VITALS (8 sets, daily range): BP systolic 81–120; BP diastolic 52–72; PULSE 63–84; RESP 14–18; TEMP 36.3–36.9; O2SAT 92–100; BMI 20.9
[2022-05-30 13:19] LABS: Absolute Lymphocyte Count 1.19 X10^3/uL (0.83-4.51); Absolute Neutrophil Count 7.8 X10^3/uL (2.0-7.7); Basophil# 0.02 X10^3/uL; Basophil% 0.2 % (0-1); Eosinophil# 0.07 X10^3/uL; Eosinophils% 0.7 % (0-5); Hemoglobin 11.3 g/dL (12.0-15.0); Lymphocyte # 1.19 X10^3/ul (0.83-4.51); Lymphocyte % 12.2 % (19-41); Mean Corp Hgb Conc 33.2 g/dL (32-36); Mean Corpuscular Hgb 32.4 pg (27.0-32.0); Mean Corpuscular Volume 97.4 fL (81-99); Mean Platelet Vol. 11.3 fl (6.2-12.0); Monocyte# 0.64 X10^3/uL; Monocyte% 6.5 % (0-10); NRBC Flagged by Analyzer 0 % (0-5); Neutrophil # 7.84 X10^3/uL (2.7-7.7); Neutrophil % 80.1 % (47-70); Platelet Count 109 K/mm3 (150-450); RBC Distribution Width CV 13.2 % (11.6-14.6); RBC Distribution Width SD 46.9 fl (35.1-43.9); Red Blood Count 3.49 M/mm3 (4.2-5.4); White Blood Count 9.8 K/mm3 (4.4-11.0)
[2022-05-30 13:32] LABS: Anion Gap 10 (5-15); BUN 83 mg/dL (7-18); BUN/Creat Ratio 30.4 RATIO (10-20); Calcium,Total 8.6 mg/dL (8.5-10.1); Chloride 102 mmol/L (98-107); Creatinine, Serum 2.73 mg/dL (0.55-1.02); EST Glomerular Filtration Rate 18 mL/min (>60); Est Glom Filt Rate - Afr Amer 22 mL/min (>60); Estimated Creatinine Clearance 15.04 ml/min; Glucose 106 mg/dL (74-106); Sodium Level 135 mmol/L (136-145)
--- NOTE | 2022-05-30 13:53 | EDS_ITS ---
HPI History of Present Illness Chief Complaint: GI Bleed Detail of Chief Complaint: Black stool Informant: patient and family Onset/Context/Timing Onset: Yesterday Context: Sudden Onset Timing: Intermittent Quality: Black sticky stool with odor Location: GI Current Severity: Unable to determine Maximum Severity: Unable to determine Worsened by: Nothing Relieved by: Nothing Associated Symptoms Associated Symptoms: Lightheadedness and fell yesterday Narrative Narrative: Patient is a 77-year-old woman with history of iron deficiency anemia due to GI bleed. She presents because of black sticky stool with odor that was first noted yesterday. She had lightheadedness with fall yesterday. She is not on an anticoagulant. She is not on an antiplatelet medicine. She denies head trauma from fall. Denies double vision, blurred vision loss of vision. Denies ringing or ears. She denies trouble speech or swallowing. She denies cardiac symptoms i.e. chest pain, orthopnea or PND. She denies dyspnea. She denies bruising easily. Denies blood in her urine. Denies bleeding of her gums. Prior similar symptoms: Yes (GI bleed) Recent Illness/Hospitalization: No [facility] Medical History Anxiety CAD (coronary artery disease) Depression Dyspnea GERD (gastroesophageal reflux disease) GI bleed HTN (hypertension) Hyperlipidemia Iron deficiency anemia Kidney stones Osteoarthritis Pacemaker Parkinson disease Post-menopausal Restless legs Rheumatoid arthritis Home Medications carbidopa 25 mg-levodopa 100 mg tablet 1 tab PO BID restless legs 11/29/18 [History Last Taken 05/01/21] pantoprazole 40 mg tablet,delayed release 40 mg PO BID gerd 03/01/19 [History Last Taken 05/01/21] potassium chloride 20 mEq tablet,extended release(part/cryst) 10 meq PO QODAY supplement 03/28/19 [History Last Taken Unknown] atorvastatin 10 mg tablet 10 mg PO QHS cholesterol 05/01/21 [History Last Taken Unknown] cholecalciferol (vitamin D3) 50 mcg (2,000 unit) tablet (Vitamin D3) 50 mcg PO DAILY supplement 05/01/21 [History Last Taken Unknown] copper gluconate 2 mg tablet 4 mg PO DAILY supplement 05/01/21 [History Last Taken Unknown] doxycycline hyclate 100 mg capsule (Vibramycin) 100 mg PO BID antibiotic 05/01/21 [History Last Taken Unknown] furosemide 20 mg tablet 20 mg PO QODAY water pill 05/01/21 [History Last Taken Unknown] ferrous sulfate 325 mg (65 mg iron) tablet 325 mg PO BIDCM anemia #0 tabs 05/06/21 [Rx Last Taken 03/01/19] losartan 50 mg-hydrochlorothiazide 12.5 mg tablet tab 05/30/22 [History Last Taken Unknown] mirabegron 50 mg tablet,extended release 24 hr (Myrbetriq) 50 mg PO BID 05/30/22 [History Last Taken Unknown] Allergy/AdvReac Type Severity Reaction Status Date / Time amoxicillin Allergy Itching Verified 05/30/22 11:47 Penicillins Allergy Itching Verified 05/30/22 11:47 Family History Other Diabetes Hypertension Surgical History History of total knee replacement (TKR) S/P hysterectomy Social History (Updated 05/30/22 @ 13:[address] Refugio Mathis MD) household members: none Smoking Status: Never smoker substance use type: does not use ROS ROS ED Constitutional Constitutional ED: Denies chills, fever(s), subjective, sweats or weight loss Eyes Eyes: Denies blurry vision, change in vision or diplopia ENT ENT ED: Denies ear pain, rhinorrhea or sore throat Cardiovascular Cardiovascular: Denies chest pain, orthopnea, palpitations, paroxysmal nocturnal dyspnea or racing heartbeat Respiratory/Chest Respiratory/Chest: Denies cough, dyspnea, dyspnea on exertion, orthopnea or paroxysmal nocturnal dyspnea Gastrointestinal Gastrointestinal: Reports melena; Denies abdominal pain, diarrhea, nausea or vomiting Genitourinary Genitourinary ED: Denies dysuria, hematuria or urinary frequency Musculoskeletal Musculoskeletal: Denies arthralgias, back pain or myalgias Integumentary Denies abscess, Abrasions or rash Neurologic Neurologic: Reports weakness; Denies headache(s) or paresthesias Endocrine Endocrinology: Denies cold intolerance or heat intolerance Hematologic/Lymphatic Hematologic/Lymphatic: Reports systems reviewed and no addt'l complaints, except as documented EXAM Physical Exam Const Vital Signs: 05/30/22 11:47 05/30/22 12:37 05/30/22 13:14 Temperature 97.3 F L Temperature Source Temporal Pulse Rate 84 Pulse Rate [Lying] 63 Pulse Rate [Sitting (for 1 minute prior to obtaining)] 66 Pulse Rate [Standing (for 1 minute prior to obtaining)] 79 Respiratory Rate 14 Blood Pressure 81/62 L 120/55 L Blood Pressure [Lying] 96/52 L Blood Pressure [Sitting (for 1 minute prior to obtaining)] 96/56 L Blood Pressure [Standing (for 1 minute prior to obtaining)] 84/58 L Blood Pressure Mean 68 76 Blood Pressure Mean [Lying] 66 Blood Pressure Mean [Sitting (for 1 minute prior to obtaining)] 69 Blood Pressure Mean [Standing (for 1 minute prior to obtaining)] 66 Pulse Ox 99 Oxygen Delivery Method Room Air Positive well nourished and well developed General Appearance ED: well developed, NAD and pallor; Negative for cyanotic or diaphoretic HEENT Reports moist mucous membranes HEENT Narrative: Head is atraumatic normocephalic. Ears normal. Nares patent. Uvula midline. No deviation with protrusion. No erythema exudate the posterior pharynx. Eyes PERRL and EOMs intact bilaterally General Eye ED: Negative for pale conjunctiva or scleral icterus Neck no lymphadenopathy, supple and no JVD Chest Wall inspection of chest normal and palpation of chest normal Resp normal respiratory effort and clear to auscultation bilaterally Cardio regular rate, regular rhythm, S1 normal heart sound, S2 normal heart sound and no murmurs GI normal to inspection, nondistended, normoactive bowel sounds, non-tender, non- distended and no masses; Negative for hepatosplenomegaly GI Narrative: There was no fecal matter on digital exam. Patient has history and evidence of hemorrhoids. Hemoccult test was not performed because no stool was obtained. Auscultation: normoactive bowel sounds Palpation: soft Back/Spine no CVA tenderness Extremity normal to inspection General Extremety ED: Negative for edema or tenderness General Extremity: Negative for edema Neuro oriented x3, CN's II-XII intact bilaterally and no sensory deficits noted Sensorium / Orientation: alert Psych mental status grossly normal Skin no rashes or lesions noted, no wounds and skin turgor normal General Skin Exam: pallor; Negative for elasticity normal or jaundice MDM MDM MDM Narrative Medical decision making narrative: Patient's initial blood pressure was low. This was obtained when she was sitting in triage may represent orthostatic hypotension. This may be due to her Parkinson's disease or GI blood loss. CBC was obtained as well as basic metabolic panel to assess for acute anemia and to assess BUN to creatinine ratio. EKG was obtained to rule out cardiac ischemia since she is hypotensive. Since patient does drop her pressure with standing she was typed and screened. H&H is higher than baseline. BUN and creatinine are much higher than baseline at 83 and 2.73. The BUN/creatinine ratio is greater than 31 and may represent GI bleed, prerenal azotemia with acute on chronic kidney disease. Lab Data Labs: Laboratory Results - last 24 hr 05/30/22 05/30/22 13:10 13:10 WBC 9.8 RBC 3.49 L Hgb 11.3 L Hct 34.0 L MCV 97.4 MCH 32.4 H MCHC 33.2 RDW Std Deviation 46.9 H RDW Coeff of Erma 13.2 Plt Count 109 L MPV 11.3 Immature Gran % (Auto) 0.300 Neut % (Auto) 80.1 H Lymph % (Auto) 12.2 L [place] % (Auto) 6.5 Eos % (Auto) 0.7 Baso % (Auto) 0.2 Absolute Neuts (auto) 7.8 H Absolute Lymphs (auto) 1.19 Nucleated RBC % 0 Sodium 135 L Potassium 3.0 L Chloride 102 Carbon Dioxide 23.0 Anion Gap 10 BUN 83 H Creatinine 2.73 H Estim Creat Clear Calc 15.04 Est GFR (MDRD) Af Amer 22 L Est GFR (MDRD) Non-Af 18 L BUN/Creatinine Ratio 30.4 H Glucose 106 Calcium 8.6 EKG Initial EKG: Attestation: I personally reviewed and interpreted this EKG as follows: Interpretation: - (Ventricular paced rhythm rate of 65. QRS duration 216 ms. QT duration 542 ms. [place] to left.) Discharge Plan Dx/Rx/DC Orders Clinical Impression: Acute hypotension, Acute renal failure superimposed on stage 3a chronic kidney disease, Acute prerenal azotemia Disposition Disposition: [facility]
--- NOTE | 2022-05-30 14:41 | PCM.HP.STD ---
HPI - General General Date of Admission: 05/30/22 Date of Service: 05/30/22 Chief Complaint: Lightheadedness, falls HPI Narrative DAVID PORRAS, is a 77 F who presented to the emergency department at [facility] on 05/30/2022 secondary to lightheadedness and a fall. Patient also reported some black tarry stools that she first noted yesterday. She denied any significant injury from the fall though she does report she hit her head and has a bruise centrally on her forehead. She denies any headache. Family reports that recently she just had decreased energy, generalized weakness with decreased p.o. intake. Family notes she does live alone however they have 6 children who look after her on a regular basis. Her daughter who is currently at the bedside reports that they feel she is forgetting to eat at home and attributes this to her baseline dementia. She does have history of GI bleed with previous scopes done about a year ago and follows with Dr. Ma. She not currently anticoagulated and has not noted any hematochezia. Denies any nausea or vomiting, abdominal pain or any reason other than she forgets to eat for decreased p.o. intake. Upon presentation the emergency department she was found to have a temperature of 97.3, heart rate 69, blood pressure 135/63 however blood pressure later in her stay with orthostatic vitals was 96/52 but orthostatics were negative, respiratory rate 14 and oxygen saturations are 99% on room air. CBC shows hemoconcentration with a normal white count and hemoglobin of 11.3 however baseline hemoglobin appears to be between 8 and 10. Her most recent documented hemoglobin from October was 9.2. Her platelet count was 109,000 which is significantly lower than her baseline chemistry panel showed mild hyponatremia with a sodium of 135, hypokalemia with potassium of 3 but a significantly elevated BUN and creatinine at 83 and 2.73 respectively (baseline serum creatinine appears to be between 1.3 and 1.4). In the emergency department with the report of black tarry stools type and screen were ordered however when her hemoglobin came back elevated from baseline no blood was transfused. She was given IV fluids and with the acute kidney injury and decreased p.o. intake request for admission was made. [facility] Medical History Anxiety CAD (coronary artery disease) Depression Dyspnea GERD (gastroesophageal reflux disease) GI bleed HTN (hypertension) Hyperlipidemia Iron deficiency anemia Irregular heart beat Kidney stones Osteoarthritis Pacemaker Parkinson disease Post-menopausal Restless legs Rheumatoid arthritis Home Medications carbidopa 25 mg-levodopa 100 mg tablet 1 tab PO BID restless legs 11/29/18 [History Last Taken 05/01/21] pantoprazole 40 mg tablet,delayed release 40 mg PO BID gerd 03/01/19 [History Last Taken 05/01/21] potassium chloride 20 mEq tablet,extended release(part/cryst) 10 meq PO QODAY supplement 03/28/19 [History Last Taken Unknown] atorvastatin 10 mg tablet 10 mg PO QHS cholesterol 05/01/21 [History Last Taken Unknown] cholecalciferol (vitamin D3) 50 mcg (2,000 unit) tablet (Vitamin D3) 50 mcg PO DAILY supplement 05/01/21 [History Last Taken Unknown] copper gluconate 2 mg tablet 4 mg PO DAILY supplement 05/01/21 [History Last Taken Unknown] doxycycline hyclate 100 mg capsule (Vibramycin) 100 mg PO BID antibiotic 05/01/21 [History Last Taken Unknown] furosemide 20 mg tablet 20 mg PO QODAY water pill 05/01/21 [History Last Taken Unknown] ferrous sulfate 325 mg (65 mg iron) tablet 325 mg PO BIDCM anemia #0 tabs 05/06/21 [Rx Last Taken 03/01/19] losartan 50 mg-hydrochlorothiazide 12.5 mg tablet tab 05/30/22 [History Last Taken Unknown] mirabegron 50 mg tablet,extended release 24 hr (Myrbetriq) 50 mg PO BID 05/30/22 [History Last Taken Unknown] trazodone 100 mg tablet 100 mg PO QHS 05/30/22 [History Last Taken Unknown] Allergy/AdvReac Type Severity Reaction Status Date / Time amoxicillin Allergy Itching Verified 05/30/22 11:47 Penicillins Allergy Itching Verified 05/30/22 11:47 Family History Other Diabetes Hypertension Surgical History History of total knee replacement (TKR) Hx of CABG S/P hysterectomy Social History (Updated 05/30/22 @ 18:[address] Mckenzie Neal, DO) household members: none housing: house Smoking Status: Never smoker substance use type: does not use ROS Constitutional Constitutional: Reports anorexia and weakness; Denies change in weight, chills, fatigue, fever(s), malaise, night sweats or other Eyes Eyes: Denies blurry vision, change in eye color, change in vision, discharge from eye(s), double vision, erythema, eye pain, loss of vision or other ENT HEENT: Denies abnormal hearing, dysphagia, ear pain, epistaxis, headache(s), hearing loss, nasal congestion, nasal discharge, post nasal drip, sinus pressure, sore throat or other Cardiovascular Cardiovascular: Denies chest pain, claudication, dyspnea on exertion, edema, lightheadedness, orthopnea, palpitations, paroxysmal nocturnal dyspnea, rapid heart rate, syncope or other Respiratory/Chest Respiratory/Chest: Denies cough, dyspnea, excessive phlegm production, hemoptysis, productive cough, shortness of breath at rest, shortness of breath with exertion, wheezing or other Gastrointestinal Gastrointestinal: Reports melena; Denies abdominal pain, coffee ground emesis, constipation, diarrhea, dyspepsia, hematemesis, hematochezia, loose stools, nausea, vomiting or other Genitourinary Genitourinary: Reports other Details: Decreased urine output ; Denies burning urination, difficulty urinating, dysuria, hematuria, nocturia, urinary frequency, urinary hesitancy, urinary incontinence or urinary urgency Musculoskeletal Musculoskeletal: Denies arthralgias, back pain, joint pain, joint stiffness, joint swelling, myalgias, neck pain or other Neurologic Neurologic: Denies abnormal gait, abnormal speech, confusion, disequilibrium, dizziness, focal weakness, headache(s), numbness, paresthesias, seizure-like activity, seizures, syncope, tingling, tremor(s) or other Psychiatric Psychiatric: Denies anxiety, depression, homicidal ideation, suicidal ideation or other Endocrine Endocrinology: Denies change in body appearance, cold intolerance, excessive sweating, heat intolerance, polydipsia, polyuria or other Hematologic/Lymphatic Hematologic/Lymphatic: Denies anemia, easy bleeding, easy bruising, lymphadenopathy or other Allergic/Immunologic Allergic/Immunologic: Denies rhinitis, hives, eczemia, asthma or other Vital Signs Vital Signs Vital Signs: 05/30/22 11:47 05/30/22 12:37 05/30/22 13:14 Temperature 97.3 F L Temperature Source Temporal Pulse Rate 84 Pulse Rate [Lying] 63 Pulse Rate [Sitting (for 1 minute prior to obtaining)] 66 Pulse Rate [Standing (for 1 minute prior to obtaining)] 79 Respiratory Rate 14 Blood Pressure 81/62 L 120/55 L Blood Pressure [Lying] 96/52 L Blood Pressure [Sitting (for 1 minute prior to obtaining)] 96/56 L Blood Pressure [Standing (for 1 minute prior to obtaining)] 84/58 L Blood Pressure Mean 68 76 Blood Pressure Mean [Lying] 66 Blood Pressure Mean [Sitting (for 1 minute prior to obtaining)] 69 Blood Pressure Mean [Standing (for 1 minute prior to obtaining)] 66 Pulse Ox 99 Oxygen Delivery Method Room Air Weight Weight: 57.1 kg Body Mass Index (BMI) 20.9 Physical Exam Const alert Constitutional Narrative: Elderly white female, oriented to place and self but not time (baseline per daughter), appears comfortable nontoxic General Appearance: cooperative HEENT normocephalic HEENT Narrative: Small round ecchymotic area on her forehead with tenderness on her occiput, mild hearing loss, mucous membranes are dry, Mallampati is 2, no thrush Eyes PERRL, EOMs intact bilaterally and conjunctivae normal Eyes Narrative: No scleral icterus Neck no lymphadenopathy, supple, no JVD and no carotid bruits Neck Narrative: Trachea midline, no thyroid enlargement Resp normal respiratory effort, no retractions, no use of accessory muscles and clear to auscultation bilaterally Auscultation: Negative for crackles, rales, rhonchi or wheezes Cardio regular rate, regular rhythm, S1 normal heart sound, S2 normal heart sound, no murmurs, no rub, no gallops, no clicks and no JVD GI normal to inspection, nondistended, normoactive bowel sounds, soft to palpation and non-tender Extremity no clubbing, cyanosis or edema Extremity Narrative: 2+ pedal pulses Skin no wounds, No skin turgor normal, no jaundice, no petechiae and no mottling Skin Narrative: Scattered ecchymosis, one on forehead centrally located, skin tenting Neuro CN's II-XII intact bilaterally, moves all extremities and no focal motor deficits Neuro Narrative: Lysed weakness noted Speech: speech normal Psych affect normal Psych Narrative: A pleasant Results Lab / Micro Data Result Diagrams: 05/30/22 13:10 05/30/22 13:10 Labs: Laboratory Results - last 24 hr 05/30/22 13:10: WBC 9.8, RBC 3.49 L, Hgb 11.3 L, Hct 34.0 L, MCV 97.4, MCH 32.4 H, MCHC 33.2, RDW Std Deviation 46.9 H, RDW Coeff of Erma 13.2, Plt Count 109 L, MPV 11.3, Immature Gran % (Auto) 0.300, Neut % (Auto) 80.1 H, Lymph % (Auto) 12.2 L, [place] % (Auto) 6.5, Eos % (Auto) 0.7, Baso % (Auto) 0.2, Absolute Neuts (auto) 7.8 H, Absolute Lymphs (auto) 1.19, Nucleated RBC % 0 05/30/22 13:10: Sodium 135 L, Potassium 3.0 L, Chloride 102, Carbon Dioxide 23.0, Anion Gap 10, BUN 83 H, Creatinine 2.73 H, Estim Creat Clear Calc 15.04, Est GFR (MDRD) Af Amer 22 L, Est GFR (MDRD) Non-Af 18 L, BUN/Creatinine Ratio 30.4 H, Glucose 106, Calcium 8.6 Assessment & Plan Assessment/Plan (1) Acute hypotension: (2) Acute renal failure superimposed on stage 3a chronic kidney disease: (3) Acute prerenal azotemia: (4) Melena: (5) Hypokalemia: (6) Debility: (7) Generalized weakness: (8) Decreased oral intake: PLAN: Plan HILARIO on CKD stage IIIa -Baseline serum creatinine 0.9-1 -Current serum creatinine greater than 2 -Aggressive hydration -Avoid nephrotoxins -Hold home losartan/HCTZ -Hold home potassium supplementation -Hold home Lasix -Mehta placement for accurate I's and O's -Repeat lab in a.m. -If not improved will work-up further Acute hypotension -Resolving with IV hydration -Suspect related to dehydration -Continue to monitor Possible melena -Patient reported dark stools prior to admission -Hemoglobin is actually higher than baseline of 8-10 but patient is hemoconcentrated -Hydrate and will repeat hemoglobin in a.m. -Check guaiac and if positive will have GI evaluate -Continue home oral PPI -Does have history of GI bleeding for which she had evaluation for at the end of last year -See recent EGD from 05/08/2021 showed Rou-en-Y gastrojejunostomy as previously mentioned, erythematous mucosa in pylorus. Biopsy found gastritis in the pylorus; H. Pylori negative. Chronic anemia -Monitor -Continue home iron supplementation -See above Generalized weakness/debility -Consult PT/OT -Check COVID-19 -Patient currently resides at home independently -May need placement at discharge and this was discussed with family at bedside prior to admission Poor oral intake -Per discussion with family sounds as if this may be related to forgetting to eat with her dementia -Dietitian to evaluate -Add supplements Hypertension -Hold Lasix -Hold losartan/HCTZ -As needed hydralazine Restless leg syndrome -Continue home medications Dementia -Sounds as if this may be progressing -PT/OT consultation -May not be a good idea to return to an independent living situation -May need placement discharge and this was discussed at admission Hyperlipidemia -Continue home Vitamin D deficiency -Restart cholecalciferol discharge DVT prophylaxis -SCDs -Hold chemoprophylaxis with possible melena CODE STATUS -DNR CCA with no intubation as per discussion with family at admission Charges/Coding Visit Charges Inpatient E&M: 78769 Init Hosp L3
[2022-05-30] MEDS: Lactated Ringers 1,000 ML 125 ML IV (18:06)
[2022-05-30] MEDS: Ferrous Sulfate 325 MG Tablet PO (18:35)
[2022-05-30] MEDS: Potassium Chloride Oral Tablet 20 MEQ 60 MEQ PO (18:35)
[2022-05-30 19:11] LABS: Mucous, Urine 0 SEEN /hpf (<or=2+)
[2022-05-30 19:54] LABS: Color, Urine Straw (Yellow); Glucose, Dipstick Normal (Normal); Ketone-Dipstick Negative (Negative); Leukocyte Esterase-Dipstick 100 /ul (Negative); Nitrite-Dipstick Positive (Negative); Occult Blood-Urine Negative /ul (Negative); Protein-Dipstick Negative (Negative); Specific Gravity, Urine 1.015 (1.002-1.030); Urine Bilirubin Dipstick Negative (Negative); Urine Clarity Clear (Clear); Urine Urobilinogen Normal (Normal)
[2022-05-30 20:12] LABS: Bacteria 3+ /hpf (None Seen); Red Blood Cells-Urine 0-5 SEEN /hpf (0-5); Squamous Epithelial Cells - UA 0-5 SEEN /hpf (5-10); White Blood Cells 10-25 SEEN /hpf (0-5)
[2022-05-30] MEDS: Atorvastatin Calcium 10 MG Tablet PO (21:54)
[2022-05-30] MEDS: Carbidopa/Levodopa 25/100 Tablet PO (21:54)
[2022-05-30] MEDS: Pantoprazole Sodium 40 MG Tablet PO (21:54)
[2022-05-31] VITALS (8 sets, daily range): BP systolic 96–108; BP diastolic 48–66; PULSE 66–75; RESP 18; TEMP 36.6–37; O2SAT 96–99
[2022-05-31] MEDS: Lactated Ringers 1,000 ML 125 ML IV (02:16)
[2022-05-31 06:51] LABS: Absolute Lymphocyte Count 1.35 X10^3/uL (0.83-4.51); Absolute Neutrophil Count 5.2 X10^3/uL (2.0-7.7); Basophil# 0.02 X10^3/uL; Basophil% 0.3 % (0-1); Eosinophil# 0.13 X10^3/uL; Eosinophils% 1.8 % (0-5); Hematocrit 28.5 % (37-47); Hemoglobin 9.3 g/dL (12.0-15.0); Lymphocyte # 1.35 X10^3/ul (0.83-4.51); Lymphocyte % 18.6 % (19-41); Mean Corp Hgb Conc 32.6 g/dL (32-36); Mean Corpuscular Hgb 32.5 pg (27.0-32.0); Mean Corpuscular Volume 99.7 fL (81-99); Monocyte# 0.52 X10^3/uL; Monocyte% 7.2 % (0-10); NRBC Flagged by Analyzer 0 % (0-5); Neutrophil # 5.22 X10^3/uL (2.7-7.7); Neutrophil % 71.7 % (47-70); Platelet Count 101 K/mm3 (150-450); RBC Distribution Width CV 13.3 % (11.6-14.6); RBC Distribution Width SD 48.6 fl (35.1-43.9); Red Blood Count 2.86 M/mm3 (4.2-5.4); White Blood Count 7.3 K/mm3 (4.4-11.0)
[2022-05-31 07:27] LABS: ALB/GLOB Ratio 0.9 RATIO (0.9-2.4); AST(SGOT) 27 U/L (15-37); Alanine Aminotransfer ALT/SGPT 8 U/L (13-56); Albumin, Serum 2.3 g/dL (3.2-5.0); Alkaline Phosphatase 73 U/L (45-117); Anion Gap 10 (5-15); BUN 76 mg/dL (7-18); BUN/Creat Ratio 35.2 RATIO (10-20); Chloride 107 mmol/L (98-107); Creatinine, Serum 2.16 mg/dL (0.55-1.02); EST Glomerular Filtration Rate 23 mL/min (>60); Est Glom Filt Rate - Afr Amer 28 mL/min (>60); Globulin 2.6 g/dL (2.2-4.2); Glucose 87 mg/dL (74-106); Phosphorus 3.5 mg/dL (2.5-4.9); Potassium 3.2 mmol/L (3.5-5.1); Protein, Total 4.9 g/dL (6.4-8.2); Sodium Level 137 mmol/L (136-145); Thyroid Stim Hormone (TSH) 1.29 uIU/mL (0.358-3.74)
[2022-05-31] MEDS: Ceftriaxone 1 GM/50 ML BAG IV (10:06)
[2022-05-31] MEDS: Cholecalciferol (VIT D3) 25 MCG TABLET (1,000 UNITS) 50 MCG PO (10:06)
[2022-05-31] MEDS: Pantoprazole Sodium 40 MG Tablet PO ×2 (10:06→20:21)
[2022-05-31] MEDS: Ferrous Sulfate 325 MG Tablet PO ×2 (10:06→18:04)
[2022-05-31] MEDS: Carbidopa/Levodopa 25/100 Tablet PO ×2 (10:07→20:21)
[2022-05-31] MEDS: Potassium Chloride Oral Tablet 20 MEQ 40 MEQ PO (10:08)
[2022-05-31] MEDS: Lactated Ringers 1,000 ML 1 ML IV (10:13)
[2022-05-31] MEDS: 0.9% Saline Lock 10 ML Syringe IV (14:04)
--- NOTE | 2022-05-31 14:06 | PN.HOSP_ITS ---
Subjective Subjective Patient states she is feeling much better today. Has no complaints from overnight. Hemoglobin appears to be stable. Renal function is improving. Objective Data Objective Data Vital Signs: Vital Signs Temp Pulse Resp BP Pulse Ox O2 Del Method 98.1 F 75 18 103/64 98 Room Air 05/31/22 08:00 05/31/22 08:32 05/31/22 08:00 05/31/22 08:00 05/31/22 08:00 05/31/22 08:00 Oxygen Delivery Method Room Air Weight: 55.8 kg Body Mass Index (BMI) 20.0 Intake & Output: Intake and Output for Last 24 Hours 05/29/22 05/30/22 05/31/22 23:59 23:59 23:59 Intake Total 700 / 700 1875.42 / 1875.42 Output Total 300 / 300 625 / 625 Balance 400 / 400 1250.42 / 1250.42 Lab / Micro Data Result Diagrams: 05/31/22 12:30 05/31/22 05:00 Labs: Laboratory Results - last 24 hr 05/30/22 13:10: Blood Type AB NEGATIVE, Antibody Screen NEGATIVE 05/30/22 : Urine Color Straw, Urine Clarity Clear, Urine pH 6.0, Ur Specific [place] 1.015, Urine Protein Negative, Urine Glucose (UA) Normal, Urine Ketones Negative, Urine Occult Blood Negative, Urine Nitrite Positive H, Urine Bilirubin Negative, Urine Urobilinogen Normal, Ur Leukocyte Esterase 100 H, Urine RBC 0-5 SEEN, Urine WBC 10-25 SEEN, Ur Squamous Epith Cells 0-5 SEEN, Urine Bacteria 3+, Urine Mucus 0 SEEN 05/31/22 05:00: WBC 7.3, RBC 2.86 L, Hgb 9.3 L, Hct 28.5 L, MCV 99.7 H, MCH 32.5 H, MCHC 32.6, RDW Std Deviation 48.6 H, RDW Coeff of Erma 13.3, Plt Count 101 L, MPV 12.0, Immature Gran % (Auto) 0.400, Neut % (Auto) 71.7 H, Lymph % (Auto) 18.6 L, [place] % (Auto) 7.2, Eos % (Auto) 1.8, Baso % (Auto) 0.3, Absolute Neuts (auto) 5.2, Absolute Lymphs (auto) 1.35, Nucleated RBC % 0 05/31/22 05:00: Sodium 137, Potassium 3.2 L, Chloride 107, Carbon Dioxide 20.0 L , Anion Gap 10, BUN 76 H, Creatinine 2.16 H, Estim Creat Clear Calc 18.60, Est GFR (MDRD) Af Amer 28 L, Est GFR (MDRD) Non-Af 23 L, BUN/Creatinine Ratio 35.2 H , Glucose 87, Calcium 8.0 L, Phosphorus 3.5, Magnesium 2.0, Total Bilirubin 0.40, AST 27, ALT 8 L, Alkaline Phosphatase 73, Total Protein 4.9 L, Albumin 2.3 L, Globulin 2.6, Albumin/Globulin Ratio 0.9, TSH 1.29 05/31/22 12:30: Hgb 10.0 L Micro: Microbiology 05/31/22 10:06 Stool Stool Occult Blood (KYLE) - Final Occult Blood Positive 05/30/22 19:40 Nasal Secretion SARS-CoV-2 Antigen (Rapid) - Final Physical Exam Const alert Constitutional Narrative: Elderly white female, oriented to place and self but not time (baseline per da hter), appears comfortable, nontoxic General Appearance: cooperative HEENT normocephalic, head/scalp atraumatic and moist oral mucous membranes Resp normal respiratory effort, no retractions, no use of accessory muscles and clear to auscultation bilaterally Auscultation: Negative for crackles, rales, rhonchi or wheezes Cardio regular rate, regular rhythm, S1 normal heart sound, S2 normal heart sound, no murmurs, no rub, no gallops, no clicks and no JVD GI normal to inspection, nondistended, normoactive bowel sounds, soft to palpation and non-tender Extremity no clubbing, cyanosis or edema Extremity Narrative: 2+ pedal pulses Skin no wounds, skin turgor normal, no jaundice, no petechiae and no mottling Skin Narrative: Scattered ecchymosis Neuro CN's II-XII intact bilaterally, moves all extremities and no focal motor deficits Neuro Narrative: Generalized weakness noted Speech: speech normal Psych affect normal Psych Narrative: Pleasantly confused Assessment & Plan Assessment/Plan (1) Acute hypotension: (2) Acute renal failure superimposed on stage 3a chronic kidney disease: (3) Acute prerenal azotemia: (4) Melena: (5) Hypokalemia: (6) Debility: (7) Generalized weakness: (8) Decreased oral intake: PLAN: Plan HILARIO on CKD stage IIIa -Baseline serum creatinine 0.9-1 -Serum creatinine was 2.73 on admission and now down to 2.16 with hydration -We will continue hydration with IV fluids -Avoid nephrotoxins -Continue to hold home losartan/HCTZ -Hold home Lasix -Mehta placement for accurate I's and O's -Will remove tomorrow if creatinine continues to improve -Repeat lab in a.m. Acute hypotension -Continues to improve -Suspect related to dehydration -Continue to hold home antihypertensives -Continue to monitor Possible melena -Patient reported dark stools prior to admission -Related to chronic iron supplementation as her hemoglobin is now at baseline and stable -Hemoglobin is actually higher than baseline of 8-10 but patient is hemoconcentrated -Hemoglobin is now at her baseline between 9 and 10 -I did repeat her hemoglobin this afternoon with a drop in the last 12 hours and it was stable -Guaiac stool remains pending -Continue home oral PPI -Does have history of GI bleeding for which she had evaluation for at the end of last year -See recent EGD from 05/08/2021 showed Rou-en-Y gastrojejunostomy as previously mentioned, erythematous mucosa in pylorus. Biopsy found gastritis in the pylorus; H. Pylori negative. Chronic anemia -Monitor -Continue home iron supplementation -See above Generalized weakness/debility -PT and OT are following -Currently recommend ongoing therapy and I suspect she will likely need at the very least home health care at the time of discharge -Check COVID-19 -Patient currently resides at home independently -May need placement at discharge and this was discussed with family at bedside prior to admission Poor oral intake -Per discussion with family sounds as if this may be related to forgetting to eat with her dementia -supplements Hypertension -Hold Lasix -Hold losartan/HCTZ -As needed hydralazine Restless leg syndrome -Continue home medications Dementia -Sounds as if this may be progressing -PT/OT following Hyperlipidemia -Continue home Vitamin D deficiency -Restart cholecalciferol discharge DVT prophylaxis -SCDs -Hold chemoprophylaxis with possible melena CODE STATUS -DNR CCA with no intubation as per discussion with family at admission Charges/Coding Visit Charges Inpatient E&M: 24422 Subs Hosp L2
--- NOTE | 2022-05-31 15:48 | CASEMGMT ---
KAYLIN ULLOA DC Planning Assessment: Face to face with pt at chairside. Pt alert but noted to have some confusion with dementia dx. Pt agreeable to participating in assessment. Admitting dx: HILARIO on CKD 3a, hypotension, possible melana, ch anemia, and weakness. PCP: Dr. Baca Insurance: [facility] A/B, Physician [place] Living Arrangements: Pt lives alone in a single story home. Pt is independent with ADLs but is assisted by family to complete household tasks including laundry. Pt receives meals on wheels. Transportation: pt's daughter transports pt as needed, pt does not drive DME: walker, rollator, grab bars at the toilet and shower. SNF: [facility] in the past [facility]: yes but unable to recall the name of the provider. Plan: Pt states she plans to return home at discharge. Discussed concern for falls and possible need for SNF to get stronger before returning home. Pt agreeable to this specifications writer contacting her daughter Cristina. Call placed to pt's daughter Cristina who states she lives 2 miles from patient and many other family who also live close and check on pt several times through the day. Family provides breakfast and supper in addition to MOWs. Discussed PT assessment noting pt was a SBA with ambulation with walker and needed assistance to stand. Pt's daughter states someone would be able to stay with pt 24/ at discharge and is agreeable to home health care. Home health provider list from [facility] including quality and resource use data and consistent with pt's insurance and geographic area was shared electronically to pt's daughter's phone. Request included for a first, second, and third choice. Will follow-up with Home Health referral for SN, PT and OT services when pt choice received. Svetlana Beck RN CM
[2022-05-31] MEDS: Atorvastatin Calcium 10 MG Tablet PO (20:21)
[2022-06-01] MEDS: Lactated Ringers 1,000 ML 75 ML IV ×2 (01:25→15:05)
[2022-06-01 01:47] VITALS: BP 133/59; PULSE 67; RESP 16; TEMP 36.7; O2SAT 100
[2022-06-01 05:39] LABS: Absolute Neutrophil Count 4.1 X10^3/uL (2.0-7.7); Basophil# 0.02 X10^3/uL; Basophil% 0.3 % (0-1); Eosinophil# 0.14 X10^3/uL; Eosinophils% 2.3 % (0-5); Hematocrit 26.5 % (37-47); Mean Corpuscular Hgb 33.3 pg (27.0-32.0); Mean Corpuscular Volume 98.1 fL (81-99); Mean Platelet Vol. 11.1 fl (6.2-12.0); Monocyte# 0.39 X10^3/uL; Monocyte% 6.4 % (0-10); NRBC Flagged by Analyzer 0 % (0-5); Neutrophil # 4.09 X10^3/uL (2.7-7.7); Neutrophil % 67.3 % (47-70); POSITIVE COUNT YES; Platelet Count 92 K/mm3 (150-450); RBC Distribution Width CV 13.4 % (11.6-14.6); RBC Distribution Width SD 47.8 fl (35.1-43.9); White Blood Count 6.1 K/mm3 (4.4-11.0)
[2022-06-01 05:43] LABS: Differential Indicated SCAN CRITERIA MET
[2022-06-01 06:00] LABS: Platelet Estimate MOD DEC (ADEQ)
[2022-06-01 06:01] LABS: Anion Gap 5 (5-15); BUN 61 mg/dL (7-18); BUN/Creat Ratio 37.9 RATIO (10-20); Calcium,Total 8.2 mg/dL (8.5-10.1); Chloride 110 mmol/L (98-107); Creatinine, Serum 1.61 mg/dL (0.55-1.02); EST Glomerular Filtration Rate 33 mL/min (>60); Est Glom Filt Rate - Afr Amer 40 mL/min (>60); Glucose 92 mg/dL (74-106); Potassium 3.2 mmol/L (3.5-5.1); Sodium Level 138 mmol/L (136-145)
[2022-06-01 07:20] VITALS: O2SAT 96
--- NOTE | 2022-06-01 08:19 | NURSING ---
emergency documentation initiated
[2022-06-01 08:26] VITALS: BP 144/84; PULSE 68; RESP 18; TEMP 36.6; O2SAT 100
--- NOTE | 2022-06-01 09:39 | CASEMGMT ---
KAYLIN ULLOA Follow-up: Pt's daughter responded with Home Health choices. First choice [facility], Second choice [facility], and Third choice [facility]. Referral called to Trang at [facility]. Acceptance pending. Svetlana Beck RN CM
[2022-06-01] MEDS: Cholecalciferol (VIT D3) 25 MCG TABLET (1,000 UNITS) 50 MCG PO (09:52)
[2022-06-01] MEDS: Ceftriaxone 1 GM/50 ML BAG IV (09:53)
[2022-06-01] MEDS: Ferrous Sulfate 325 MG Tablet PO ×2 (09:53→18:05)
[2022-06-01] MEDS: Potassium Chloride Oral Tablet 20 MEQ 60 MEQ PO (09:53)
[2022-06-01] MEDS: Pantoprazole Sodium 40 MG Tablet PO ×2 (09:53→20:12)
[2022-06-01] MEDS: Carbidopa/Levodopa 25/100 Tablet PO ×2 (09:53→20:12)
[2022-06-01] MEDS: Menthol/Lanolin/Calamine/Znox 113 GM Tube 1 APPLIC TOPICAL (09:53)
--- NOTE | 2022-06-01 10:35 | CASEMGMT ---
KAYLIN ULLOA Follow-up: per Trang at [facility], pt has been accepted with anticipated SOC on Monday06/03/22 by PT if pt DC'd on 06/02/22. Call placed to pt's daughter Cristina who states pt's son from [place] is coming in and will be staying with patient for the next week. Notified of [facility]'s acceptance and tentative SOC. No further questions or concerns voiced. Svetlana Beck RN CM
--- NOTE | 2022-06-01 13:56 | DS.PCM_ITS ---
Providers Date of Admission: 05/30/22 Date of Discharge: 06/02/22 Primary Care Physician: Dr. Vianca Baca MD Reason For Visit: HYPOTENSION/DEHYDRATION Diagnosis Discharge Diagnosis (1) Acute hypotension: Status: Acute Code(s): I95.9 - Hypotension, unspecified (2) Acute renal failure superimposed on stage 3a chronic kidney disease: Status: Acute Code(s): N17.9 - Acute kidney failure, unspecified; N18.31 - Chronic kidney disease, stage 3a (3) Acute prerenal azotemia: Status: Acute Code(s): N19 - Unspecified kidney failure (4) Melena: Status: Acute Code(s): K92.1 - Melena (5) Hypokalemia: Status: Acute Code(s): E87.6 - Hypokalemia (6) Debility: Status: Acute Code(s): R53.81 - Other malaise (7) Generalized weakness: Status: Acute Code(s): R53.1 - Weakness (8) Decreased oral intake: Status: Acute Code(s): R63.8 - Other symptoms and signs concerning food and fluid intake Medications at Discharge Home Medications carbidopa 25 mg-levodopa 100 mg tablet 1 tab PO BID restless legs 11/29/18 pantoprazole 40 mg tablet,delayed release 40 mg PO BID gerd 03/01/19 potassium chloride 20 mEq tablet,extended release(part/cryst) 10 meq PO QODAY supplement 03/28/19 atorvastatin 10 mg tablet 10 mg PO QHS cholesterol 05/01/21 cholecalciferol (vitamin D3) 50 mcg (2,000 unit) tablet (Vitamin D3) 50 mcg PO DAILY supplement 05/01/21 copper gluconate 2 mg tablet 4 mg PO DAILY supplement 05/01/21 doxycycline hyclate 100 mg capsule (Vibramycin) 100 mg PO BID antibiotic 05/01/21 ferrous sulfate 325 mg (65 mg iron) tablet 325 mg PO BIDCM anemia #0 tabs 05/06/21 losartan 50 mg-hydrochlorothiazide 12.5 mg tablet tab 05/30/22 mirabegron 50 mg tablet,extended release 24 hr (Myrbetriq) 50 mg PO BID 05/30/22 trazodone 100 mg tablet 100 mg PO QHS 05/30/22 cephalexin 500 mg capsule 500 mg PO BID #4 caps 06/02/22 Hospital Course Operations None Procedures None Summary of Care Provided Minutes Spent on Discharge: 37 Hospital Course: Mrs. Nieto is a 77-year-old white female who presented to the emergency department [facility] on 05/30/2022 secondary to lightheadedness and a fall that she had at home. Patient also reported some black tarry stools that she first noted the day prior to presentation. She denied any significant injury from the fall though she did report she hit her head and has a bruise centrally located on her head but no headache. Family reported that she had just recently over the last several days had decreased energy, generalized weakness, and p.o. intake had decreased. Family noted she does live alone however they do have 6 children who look in on her on a regular basis. The daughter who was in the emergency department thought maybe that she was forgetting to eat at home and attributed this to her baseline dementia. She does have Meals on Wheels. Upon presentation the emergency department she was found to have a temperature of 97.3, heart rate 69, blood pressure 135/63 however blood pressure later in her stay with orthostatic vitals was 96/52 but orthostatics were negative, respiratory rate 14 and oxygen saturations are 99% on room air.? CBC shows hemoconcentration with a normal white count and hemoglobin of 11.3 however baseline hemoglobin appears to be between 8 and 10.? Her most recent documented hemoglobin from October was 9.2.? Her platelet count was 109,000 which is significantly lower than her baseline chemistry panel showed mild hyponatremia with a sodium of 135, hypokalemia with potassium of 3 but a significantly elevated BUN and creatinine at 83 and 2.73 respectively (baseline serum creatinine appears to be between 1.3 and 1.4). In the emergency department she was treated with IV fluids. Her UA looks suggestive of infection therefore we got a urine culture. The patient did later complain of some dysuria. As noted above her initial hemoglobin was 11.3 and I suspect this is related to her hemoconcentration as her baseline hemoglobin appears to be between 8 and 10. After aggressive IV hydration and improvement in her renal function her hemoglobin did drop to between 9.3 and 10.5 during her hospital course. We did obtain a guaiac which was positive however with her stable hemoglobin throughout her entire course we did not pursue any aggressive work-up at this time. I would recommend referral back to Dr. Ma if a repeat hemog lobin shows a decrease from her baseline in the hospital from 9-10. I have instructed her to obtain a repeat CBC from her primary care physician to be done in approximately week's time. Her urine culture showed E. coli with colony counts greater than 100,000. She was maintained on ceftriaxone while she was hospitalized for 3 days and then discharged with 2 more days of Keflex. Clinically she improved dramatically her p.o. intake improved and her serum creatinine improved from 2.73 on admission to 1.29 which is her baseline at the time of discharge. A prescription for the Keflex was sent to the pharmacy. She was seen by physical and Occupational Therapy throughout her stay and they did recommend home health care at the time of discharge. She was ready for discharge on 06/01/2022 however family is coming in from out of town to help take care of her and would not be in until 06/02/2022. Therefore discharge [place] is delayed until this time. Patient was discharged home in stable co ndition to home health care in the care of her family. She was noted to be on hydrochlorothiazide and Lasix. We discontinued her Lasix at the time of discharge. Discharge diagnoses: HILARIO-resolved CKD stage IIIa Acute hypotension-resolved Possible melena-guaiac was positive however hemoglobin was completely stable throughout her entire hospital course E. coli urinary tract infection Chronic anemia-stable Generalized weakness Debility Poor oral intake-resolved Hypertension Restless leg syndrome Dementia Hyperlipidemia Vitamin D deficiency Physical Exam Const alert, no apparent distress and well nourished Constitutional Narrative: Elderly white female, oriented to place and self but not time (baseline per daughter patient), appears comfortable, nontoxic, sitting up in a chair eating breakfast and watching television, very pleasant General Appearance: cooperative, comfortable, well kempt and well developed Orientation / Consciousness: awake, oriented to person and oriented to place Exam Limitations: no limitations HEENT normocephalic, head/scalp atraumatic and moist oral mucous membranes HEENT Narrative: Mild to moderate hearing loss, dentition is fair, Mallampati is 2 Eyes PERRL, EOMs intact bilaterally and conjunctivae normal Eyes Narrative: No scleral icterus Neck no lymphadenopathy, supple, no JVD and no carotid bruits Neck Narrative: Trachea midline, no thyroid enlargement Resp normal respiratory effort, no retractions, no use of accessory muscles and clear to auscultation bilaterally Auscultation: Negative for crackles, rales, rhonchi or wheezes Cardio regular rate, regular rhythm, S1 normal heart sound, S2 normal heart sound, no murmurs, no rub, no gallops, no clicks and no JVD GI normal to inspection, nondistended, normoactive bowel sounds, soft to palpation and non-tender Extremity no clubbing, cyanosis or edema Extremity Narrative: 2+ pedal pulses Skin no wounds, skin turgor normal, no jaundice, no petechiae and no mottling Skin Narrative: Scattered ecchymosis from fall, healing ecchymosis on centrally on her forehead with no laceration Neuro CN's II-XII intact bilaterally, moves all extremities and no focal motor deficits Neuro Narrative: Oriented to self and place but not time, generalized weakness noted Speech: speech normal Psych affect normal Psych Narrative: Pleasantly confused Weight / BMI Weight Weight: 61 kg Body Mass Index (BMI) 20.0 ABG / Lab / Microbiology Data Result Diagrams: 06/02/22 06:30 06/02/22 06:30 Laboratory: Laboratory Results - last 24 hr 06/01/22 : WBC 6.1, RBC 2.70 L, Hgb 9.0 L, Hct 26.5 L, MCV 98.1, MCH 33.3 H, MCHC 34.0, RDW Std Deviation 47.8 H, RDW Coeff of Erma 13.4, Plt Count 92 L, MPV 11.1, Immature Gran % (Auto) 0.700, Neut % (Auto) 67.3, Lymph % (Auto) 23.0, [place] % (Auto) 6.4, Eos % (Auto) 2.3, Baso % (Auto) 0.3, Absolute Neuts (auto) 4.1, Absolute Lymphs (auto) 1.40, Nucleated RBC % 0, Platelet Estimate MOD DEC 06/01/22 : Sodium 138, Potassium 3.2 L, Chloride 110 H, Carbon Dioxide 23.0, Anion Gap 5, BUN 61 H, Creatinine 1.61 H, Estim Creat Clear Calc 25.50, Est GFR (MDRD) Af Amer 40 L, Est GFR (MDRD) Non-Af 33 L, BUN/Creatinine Ratio 37.9 H, Glucose 92, Calcium 8.2 L Microbiology: Microbiology 05/30/22 19:00 Urine, Clean Catch Urine Culture - Preliminary GNR lactose field placement director 05/31/22 10:06 Stool Stool Occult Blood (KYLE) - Final Occult Blood Positive 05/30/22 19:40 Nasal Secretion SARS-CoV-2 Antigen (Rapid) - Final Meaningful Use Info Meaningful Use Diagnoses (Choose all that apply): None applicable Discharge Plan Admission Admit Date/Time: 05/30/22 14:32 Primary Reason for Your Visit: Lightheadedness/falls Attending Provider: Mckenzie Neal Primary Care Provider: Vianca Baca Instructions Additional Instructions / Restrictions: 1. Please call your primary care physician and obtain an order for a complete blood count to be done in 1 week to reassess your hemoglobin. Your blood counts were stable throughout your entire hospital course however with the concern of black tarry school that you presented with warrants continued follow-up. Discharge Orders/Prescriptions Prescriptions: New cephalexin 500 mg capsule 500 mg PO BID Qty: 4 0RF Continued carbidopa-levodopa 1 EACH tablet 1 tab PO BID pantoprazole 40 MG tablet 40 mg PO BID potassium chloride 20 MEQ tablet 10 meq PO QODAY atorvastatin 10 mg tablet 10 mg PO QHS doxycycline hyclate [Vibramycin] 100 mg Capsule 100 mg PO BID copper gluconate 2 mg Tablet 4 mg PO DAILY cholecalciferol (vitamin D3) [Vitamin D3] 50 mcg (2,000 unit) Tablet 50 mcg PO DAILY ferrous sulfate 325 MG tablet 325 mg PO BIDCM Qty: 0 0RF losartan-hydrochlorothiazide 50-12.5 mg tablet Myrbetriq 50 mg tablet extended release 24 hr 50 mg PO BID Label Comments: TAKE 2 TABLETS BY MOUTH ONCE DAILY trazodone 100 mg Tablet 100 mg PO QHS Discontinued furosemide 20 mg tablet 20 mg PO QODAY Referrals / Follow Up: Vianca Baca MD [Primary Care Provider] - Within 2 Weeks Disposition Disposition (needs filled in before D/C Order can be placed): Home Health Service Charges/Coding Visit Charges Inpatient E&M: 18517 Disch Hosp
--- NOTE | 2022-06-01 14:22 | CASEMGMT ---
TC to pt dtr Cristina to see if there is availability for a family member to be with the pt tonight if pt should dc today. Pt dtr states that she has an after work commitment and could not be there until 10pm. Pt son is flying in from [place] and will arrive tomorrow. Cristina states [facility] has been in touch with her as well. Updated hospitalist. Plan for pt to stay yet tonight. KAYLIN CM into pt room and she is aware and agreeable to this plan.
[2022-06-01 14:24] LABS: Hemoglobin 10.5 g/dL (12.0-15.0)
[2022-06-01 14:43] VITALS: BP 135/66; PULSE 88; RESP 18; TEMP 36.4; O2SAT 98
--- NOTE | 2022-06-01 15:28 | PN.HOSP_ITS ---
Subjective Subjective Patient is feeling much better overall and anxious to go home. Unfortunately she will not have anybody to stay with her at home until tomorrow. I did get called by nursing this afternoon and stated she had 1 liquidy bowel movement that was concerning for C. difficile so sample was sent. P.o. intake has improved. Objective Data Objective Data Vital Signs: Vital Signs Temp Pulse Resp BP Pulse Ox O2 Del Method 97.6 F L 88 18 135/66 H 98 Room Air 06/01/22 14:43 06/01/22 14:43 06/01/22 14:43 06/01/22 14:43 06/01/22 14:43 06/01/22 14:43 Oxygen Delivery Method Room Air Weight: 61 kg Body Mass Index (BMI) 20.0 Intake & Output: Intake and Output for Last 24 Hours 05/30/22 05/31/22 06/01/22 23:59 23:59 23:59 Intake Total 700 / 700 1875.42 / 1875.42 2150 / 2150 Output Total 300 / 300 1225 / 1225 950 / 950 Balance 400 / 400 650.42 / 650.42 1200 / 1200 Lab / Micro Data Result Diagrams: 06/01/22 Unknown 06/01/22 Unknown Labs: Laboratory Results - last 24 hr 06/01/22 14:16: Hgb 10.5 L 06/01/22 : WBC 6.1, RBC 2.70 L, Hgb 9.0 L, Hct 26.5 L, MCV 98.1, MCH 33.3 H, MCHC 34.0, RDW Std Deviation 47.8 H, RDW Coeff of Erma 13.4, Plt Count 92 L, MPV 11.1, Immature Gran % (Auto) 0.700, Neut % (Auto) 67.3, Lymph % (Auto) 23.0, [place] % (Auto) 6.4, Eos % (Auto) 2.3, Baso % (Auto) 0.3, Absolute Neuts (auto) 4.1, Absolute Lymphs (auto) 1.40, Nucleated RBC % 0, Platelet Estimate MOD DEC 06/01/22 : Sodium 138, Potassium 3.2 L, Chloride 110 H, Carbon Dioxide 23.0, A nion Gap 5, BUN 61 H, Creatinine 1.61 H, Estim Creat Clear Calc 25.50, Est GFR (MDRD) Af Amer 40 L, Est GFR (MDRD) Non-Af 33 L, BUN/Creatinine Ratio 37.9 H, Glucose 92, Calcium 8.2 L Micro: Microbiology 05/30/22 19:00 Urine, Clean Catch Urine Culture - Preliminary GNR lactose vascular technologist sonographer 05/31/22 10:06 Stool Stool Occult Blood (KYLE) - Final Occult Blood Positive 05/30/22 19:40 Nasal Secretion SARS-CoV-2 Antigen (Rapid) - Final Physical Exam Const alert, no apparent distress and well nourished Constitutional Narrative: Elderly white female, oriented to place and self but not time (baseline per daughter), appears comfortable, nontoxic, sitting up in a chair and very pleasant General Appearance: cooperative HEENT normocephalic, head/scalp atraumatic and moist oral mucous membranes HEENT Narrative: 30, dentition is fair for age, no thrush Resp normal respiratory effort, no retractions, no use of accessory muscles and clear to auscultation bilaterally Auscultation: Negative for crackles, rales, rhonchi or wheezes Cardio regular rate, regular rhythm, S1 normal heart sound, S2 normal heart sound, no murmurs, no rub, no gallops, no clicks and no JVD GI normal to inspection, nondistended, normoactive bowel sounds, soft to palpation and non-tender Extremity no clubbing, cyanosis or edema Extremity Narrative: 2+ pedal pulses Neuro moves all extremities and no focal motor deficits Neuro Narrative: Generalized weakness noted Speech: speech normal Psych affect normal Psych Narrative: Pleasantly confused Assessment & Plan Assessment/Plan (1) Acute hypotension: (2) Acute renal failure superimposed on stage 3a chronic kidney disease: (3) Acute prerenal azotemia: (4) Melena: (5) Hypokalemia: (6) Debility: (7) Generalized weakness: (8) Decreased oral intake: PLAN: Plan HILARIO on CKD stage IIIa -Baseline serum creatinine 0.9-1 -Serum creatinine was 2.73 on admission and now down to 1.61 with hydration -We will trial off IV fluids today -Avoid nephrotoxins -Continue to hold home losartan/HCTZ -Hold home Lasix -Discontinue Mehta -Repeat lab in a.m. Acute hypotension -Resolved -Blood pressure 135/65 but still off oral antihypertensives Hypokalemia -P.o. potassium replacement given -Repeat lab in a.m. Possible melena -Patient reported dark stools prior to admission -Related to chronic iron supplementation as her hemoglobin is now at baseline and stable -Baseline hemoglobin between 9 and 10 -Current hemoglobin has been between 9 and 10 -Guaiac stool remains was positive however hemoglobin stable -Hemoglobin continues to stay stable will refer patient for outpatient GI follow-up if she has a subsequent drop will have GI follow with her here prior to discharge -Continue home oral PPI -Does have history of GI bleeding for which she had evaluation for at the end of last year -See recent EGD from 05/08/2021 showed Rou-en-Y gastrojejunostomy as previou sly mentioned, erythematous mucosa in pylorus. Biopsy found gastritis in the pylorus; H. Pylori negative. Chronic anemia -Monitor -Hemoglobin is stable -Continue home iron supplementation -See above Generalized weakness/debility -PT and OT are following -Plan is for home health care at discharge -COVID-19 was negative -Patient currently resides at home independently -Family is coming in to stay with her and will be here tomorrow Poor oral intake -P.o. intake has improved -supplements Hypertension -Hold Lasix -Hold losartan/HCTZ -Will likely discharge patient home off of Lasix and just continue home losartan and hydrochlorothiazide -As needed hydralazine Restless leg syndrome -Continue home medications Dementia -Sounds as if this may be progressing -PT/OT following Hyperlipidemia -Continue home Vitamin D deficiency -Restart cholecalciferol discharge DVT prophylaxis -SCDs -Hold chemoprophylaxis with possible melena CODE STATUS -DNR CCA with no intubation as per discussion with family at admission Charges/Coding Visit Charges Inpatient E&M: 16666 Subs Hosp L2
[2022-06-01 20:06] VITALS: BP 143/77; PULSE 69; RESP 15; TEMP 36.6; O2SAT 100
[2022-06-01] MEDS: Atorvastatin Calcium 10 MG Tablet PO (20:12)
[2022-06-02 02:35] VITALS: BP 125/56; PULSE 72; RESP 15; TEMP 36.6; O2SAT 99
[2022-06-02 03:00] VITALS: RESP 15
--- NOTE | 2022-06-02 04:04 | NURSING ---
STOOL SAMPLE RESULT NOTED NEGATIVE FOR C DIFF.
[2022-06-02 06:41] LABS: Absolute Lymphocyte Count 1.16 X10^3/uL (0.83-4.51); Absolute Neutrophil Count 4.3 X10^3/uL (2.0-7.7); Basophil# 0.03 X10^3/uL; Basophil% 0.5 % (0-1); Eosinophil# 0.21 X10^3/uL; Eosinophils% 3.4 % (0-5); Hematocrit 29.6 % (37-47); Hemoglobin 9.6 g/dL (12.0-15.0); Lymphocyte # 1.16 X10^3/ul (0.83-4.51); Lymphocyte % 18.8 % (19-41); Mean Corp Hgb Conc 32.4 g/dL (32-36); Mean Corpuscular Hgb 33.2 pg (27.0-32.0); Mean Corpuscular Volume 102.4 fL (81-99); Mean Platelet Vol. 10.7 fl (6.2-12.0); Monocyte# 0.47 X10^3/uL; Monocyte% 7.6 % (0-10); NRBC Flagged by Analyzer 0 % (0-5); Neutrophil # 4.26 X10^3/uL (2.7-7.7); Neutrophil % 69.1 % (47-70); Platelet Count 107 K/mm3 (150-450); RBC Distribution Width CV 13.2 % (11.6-14.6); RBC Distribution Width SD 50.2 fl (35.1-43.9); Red Blood Count 2.89 M/mm3 (4.2-5.4); White Blood Count 6.2 K/mm3 (4.4-11.0)
[2022-06-02 06:52] LABS: Anion Gap 6 (5-15); BUN 47 mg/dL (7-18); BUN/Creat Ratio 36.4 RATIO (10-20); Calcium,Total 8.4 mg/dL (8.5-10.1); Chloride 111 mmol/L (98-107); Creatinine, Serum 1.29 mg/dL (0.55-1.02); EST Glomerular Filtration Rate 42 mL/min (>60); Est Glom Filt Rate - Afr Amer 51 mL/min (>60); Estimated Creatinine Clearance 31.82 ml/min; Glucose 87 mg/dL (74-106); Magnesium 1.7 mg/dL (1.6-2.6); Potassium 3.6 mmol/L (3.5-5.1); Sodium Level 138 mmol/L (136-145)
[2022-06-02] MEDS: Carbidopa/Levodopa 25/100 Tablet PO (07:34)
[2022-06-02] MEDS: Pantoprazole Sodium 40 MG Tablet PO (07:34)
[2022-06-02] MEDS: Ferrous Sulfate 325 MG Tablet PO (07:34)
[2022-06-02] MEDS: Cholecalciferol (VIT D3) 25 MCG TABLET (1,000 UNITS) 50 MCG PO (07:34)
[2022-06-02 07:35] VITALS: BP 129/63; PULSE 86; RESP 16; TEMP 36.2; O2SAT 97; O2SAT 99
[2022-06-02 08:00] VITALS: O2SAT 96
[2022-06-02] MEDS: Ceftriaxone 1 GM/50 ML BAG IV (09:25)
[2022-06-02 14:29] VITALS: BP 155/77; PULSE 77; RESP 16; TEMP 36.3; O2SAT 100
[2022-06-02 14:31] VITALS: BP 155/77; PULSE 77; RESP 16; TEMP 36.3; O2SAT 100
== END 2022-06-02 16:53 | disposition home health service (06) | DRG 683 ==
LOC: ED 14:01 → MS3 15:43
PROVIDERS: Admitting Provider Internal Medicine; Emergency Provider Emergency Medicine; PCP Internal Medicine; Visit Provider Internal Medicine
DX: N17.9 Acute kidney failure, unspecified (principal); E87.1 Hypo-osmolality and hyponatremia; K92.1 Melena; N39.0 Urinary tract infection, site not specified; G20 Parkinson's disease; F02.80 Dementia in other diseases classified elsewhere, unspecified severity, without behavioral disturbance, psychotic disturbance, mood disturbance, and anxiety; I95.9 Hypotension, unspecified; F03.90 Unspecified dementia, unspecified severity, without behavioral disturbance, psychotic disturbance, mood disturbance, and anxiety; N18.31 Chronic kidney disease, stage 3a; E55.9 Vitamin D deficiency, unspecified; E78.5 Hyperlipidemia, unspecified; D50.9 Iron deficiency anemia, unspecified; E87.6 Hypokalemia; I25.10 Atherosclerotic heart disease of native coronary artery without angina pectoris; I12.9 Hypertensive chronic kidney disease with stage 1 through stage 4 chronic kidney disease, or unspecified chronic kidney disease; G25.81 Restless legs syndrome; S00.83XA Contusion of other part of head, initial encounter; W19.XXXA Unspecified fall, initial encounter; E86.0 Dehydration; B96.20 Unspecified Escherichia coli [E. coli] as the cause of diseases classified elsewhere; Z66 Do not resuscitate; Z20.822 Contact with and (suspected) exposure to COVID-19
CPT/HCPCS: 36415; 80048; 80053; 81001; 82274; 83735; 84100; 84443; 85018; 85025; 86850; 86900; 86901; 87077; 87086; 87088; 87186; 87493; 87811; 93005; 97110; 97112; 97162; 97166; 97530; 97535; 99284; J7030; J7120; A4216

== ENCOUNTER → 2022-07-26 | Outpatient (CLI) | payer MEDICARE, OTHER, SELFPAY ==
--- NOTE | 2022-07-26 12:47 | US_ITS ---
STUDY: RENAL ULTRASOUND - COMPLETE REASON FOR EXAM: Female, 77 years old. UTI TECHNIQUE: Ultrasound evaluation of the kidneys was performed with real-time and static boland-scale imaging. COMPARISON: None. FINDINGS: RIGHT KIDNEY: Normal location of the right kidney, which is normal in size. The right kidney measures 9.1 cm x 4.7 cm x 4 cm. There is a normal cortex of the right kidney. The renal cortex measures 1.3 cm. There is no right renal mass or cyst. There are no right renal calculi. There is no right hydronephrosis. DISTAL RIGHT URETER: There is non-visualization of the distal right ureter. There is no demonstrated right ureterovesical junction calculus. There is no demonstrated right ureteral jet. LEFT KIDNEY: with mild renal atrophy. The left kidney measures 7.5 cm x 3.6 x 4.4 cm. There is a normal cortex of the left kidney. The renal cortex measures 1.6 cm. There is a 1 cm x 0.8 cm x 0.8 cm cyst. There are no left renal calculi. There is no left hydronephrosis. DISTAL LEFT URETER: There is non-visualization of the distal left ureter. There is no demonstrated left ureterovesical junction calculus. There is no demonstrated left ureteral jet. BLADDER: The distended urinary bladder has a volume of 137 ml. There is a normal wall thickness of the distended urinary bladder. There is no demonstrated mass within the urinary bladder. There are no demonstrated bladder calculi. US/Kidney and Bladder IMPRESSION: Mild atrophy of the left kidney. Small left renal cyst. Electronically Signed: Stephen Gustafson MD at 15:35 EST ,
== END | disposition home or self-care (01) ==
LOC: US 12:46
PROVIDERS: PCP Internal Medicine; Referring Provider Urology; Visit Provider Urology
DX: N39.0 Urinary tract infection, site not specified (principal)
CPT/HCPCS: 76770

== ENCOUNTER 2022-08-12 17:50 | Emergency (ER) | payer MEDICARE, OTHER, SELFPAY ==
[2022-08-12 17:50] VITALS: BP 110/73; PULSE 100; RESP 18; TEMP 36.6; O2SAT 94
[2022-08-12 18:05] VITALS: BMI 22.5
--- NOTE | 2022-08-12 18:11 | CT_ITS ---
STUDY: CT BRAIN WITHOUT CONTRAST REASON FOR EXAM: Female, 77 years old. Trauma. Status post fall. RADIATION DOSAGE (If Supplied By Facility): CTDIvol = ( 44.99 ) mGy, DLP = ( 745.49 ) mGycm TECHNIQUE: Transaxial CT imaging of the brain was performed without administration of intravenous contrast material. Individualized dose optimization techniques were used for this CT. COMPARISON: March 28, 2019. FINDINGS: Normal soft tissue structures. Normal calvarium. There is mild cerebral atrophy with widening of the extra-axial spaces and ventricular dilatation. Normal white matter tracts of the cerebral hemispheres. Normal basal ganglia and thalami. Normal brainstem. Normal cerebellum. There is no intracranial hemorrhage. There are no findings of an acute ischemic infarction. Normal visualized paranasal sinuses. CT/Brain/Head without Contrast IMPRESSION: Chronic involutional changes without evidence of acute intracranial or calvarial abnormality. No major interval change. Electronically Signed: John Arango DO at 18:49 EST ,
--- NOTE | 2022-08-12 18:15 | RAD_ITS ---
STUDY: X-RAY CHEST REASON FOR EXAM: Female, 77 years old. Trauma. Findings the patient lying on the floor next to her bed. She is unsure what happened. Bruise of the right eyebrow. History of increased weakness over the last few days. Family concern for UTI. TECHNIQUE: Single AP portable view of the chest. COMPARISON: October 27, 2021. FINDINGS: The lungs are clear and expanded. There is no demonstrated pleural abnormality. Normal size heart. Stable cardiac pacemaker. There is evidence of median sternotomy and mitral valve replacement. Normal mediastinum and wale. Normal visualized pulmonary arteries. Normal visualized aortic arch and descending thoracic aorta. Degenerative changes and dextroscoliosis of the thoracic spine. Stable right shoulder replacement. There is no demonstrated abnormality of the visualized soft tissue structures of the upper abdomen. RAD/Chest 1 View (Portable) IMPRESSION: No acute cardiopulmonary disease or major interval change. Electronically Signed: John Arango DO at 18:40 EST ,
[2022-08-12 18:21] LABS: Absolute Lymphocyte Count 0.75 X10^3/uL (0.83-4.51); Basophil# 0.02 X10^3/uL; Basophil% 0.2 % (0-1); Eosinophil# 0.01 X10^3/uL; Eosinophils% 0.1 % (0-5); Hematocrit 37.8 % (37-47); Hemoglobin 12.9 g/dL (12.0-15.0); Lymphocyte # 0.75 X10^3/ul (0.83-4.51); Lymphocyte % 6.6 % (19-41); Mean Corp Hgb Conc 34.1 g/dL (32-36); Mean Corpuscular Hgb 33.6 pg (27.0-32.0); Mean Corpuscular Volume 98.4 fL (81-99); Monocyte% 4.4 % (0-10); NRBC Flagged by Analyzer 0 % (0-5); Neutrophil % 88.3 % (47-70); Platelet Count 161 K/mm3 (150-450); RBC Distribution Width CV 12.5 % (11.6-14.6); RBC Distribution Width SD 44.9 fl (35.1-43.9); Red Blood Count 3.84 M/mm3 (4.2-5.4); White Blood Count 11.3 K/mm3 (4.4-11.0)
[2022-08-12 18:30] LABS: Anion Gap 15 (5-15); BUN 78 mg/dL (7-18); BUN/Creat Ratio 30.8 RATIO (10-20); Calcium,Total 9.1 mg/dL (8.5-10.1); Chloride 99 mmol/L (98-107); Creatinine, Serum 2.53 mg/dL (0.55-1.02); EST Glomerular Filtration Rate 20 mL/min (>60); Est Glom Filt Rate - Afr Amer 24 mL/min (>60); Estimated Creatinine Clearance 14.26 ml/min; Glucose 159 mg/dL (74-106); Potassium 3.1 mmol/L (3.5-5.1); Sodium Level 136 mmol/L (136-145)
--- NOTE | 2022-08-12 18:55 | EDS_ITS ---
HPI History of Present Illness Chief Complaint: Weakness Informant: patient and family Narrative Narrative: History is from patient and daughter and son. They brought her in because she fell out of her bed and has a small contusion near the right eye. She seems to be a little bit more confused than normal. This is happened with UTIs before. She states she always has frequent urination and this is unchanged. The daughters feels that she may have been just mildly confused during the day yesterday but it seemed better in the evening. They ate at [employer]. And everything seemed fine. Today she is just not as quick as normal. I did asked the patient about orientation questions. She is oriented x3. She knows the president. She states she wished Olvin was the president but she knows Ceasar is. The family states that is pretty normal. So it sounds like her mild confusion is waxing and waning. This patient does live independently and is normally quite sharp. Patient states she did fall out of bed. She hit her head. But she does not feel like she hurt herself. She admits to being a little bit more tired than normal. She is not on any anticoagulation. Family verifies that. No real recent illness. The urine frequency is chronic PFSH [facility] Medical History Anxiety CAD (coronary artery disease) Depression Dyspnea GERD (gastroesophageal reflux disease) GI bleed HTN (hypertension) Hyperlipidemia Iron deficiency anemia Irregular heart beat Kidney stones Osteoarthritis Pacemaker Parkinson disease Post-menopausal Restless legs Rheumatoid arthritis Home Medications carbidopa 25 mg-levodopa 100 mg tablet 1 tab PO BID restless legs 11/29/18 [History Last Taken 05/01/21] pantoprazole 40 mg tablet,delayed release 40 mg PO BID gerd 03/01/19 [History Last Taken 05/01/21] potassium chloride 20 mEq tablet,extended release(part/cryst) 10 meq PO QODAY supplement 03/28/19 [History Last Taken Unknown] atorvastatin 10 mg tablet 10 mg PO QHS cholesterol 05/01/21 [History Last Taken Unknown] cholecalciferol (vitamin D3) 50 mcg (2,000 unit) tablet (Vitamin D3) 50 mcg PO DAILY supplement 05/01/21 [History Last Taken Unknown] copper gluconate 2 mg tablet 4 mg PO DAILY supplement 05/01/21 [History Last Taken Unknown] doxycycline hyclate 100 mg capsule (Vibramycin) 100 mg PO BID antibiotic 05/01/21 [History Last Taken Unknown] ferrous sulfate 325 mg (65 mg iron) tablet 325 mg PO BIDCM anemia #0 tabs 05/06/21 [Rx Last Taken 03/01/19] losartan 50 mg-hydrochlorothiazide 12.5 mg tablet tab 05/30/22 [History Last Taken Unknown] mirabegron 50 mg tablet,extended release 24 hr (Myrbetriq) 50 mg PO BID 05/30/22 [History Last Taken Unknown] trazodone 100 mg tablet 100 mg PO QHS 05/30/22 [History Last Taken Unknown] cephalexin 500 mg capsule 500 mg PO BID #4 caps 06/02/22 [Rx Last Taken Unknown] nitrofurantoin monohydrate/macrocrystals 100 mg capsule (Macrobid) 100 mg PO BID 7 days #20 caps 08/12/22 [Rx Last Taken Unknown] Allergy/AdvReac Type Severity Reaction Status Date / Time amoxicillin Allergy Itching Verified 08/12/22 17:54 Penicillins Allergy Itching Verified 08/12/22 17:54 Family History Other Diabetes Hypertension Surgical History History of total knee replacement (TKR) Hx of CABG S/P hysterectomy Social History household members: none housing: house Smoking Status: Never smoker substance use type: does not use ROS ROS ED Constitutional Constitutional ED: Denies chills, fever(s) or subjective Eyes Eyes: Denies change in vision ENT ENT ED: Denies rhinorrhea or sore throat Cardiovascular Cardiovascular: Denies chest pain or palpitations Respiratory/Chest Respiratory/Chest: Denies cough or dyspnea Gastrointestinal Gastrointestinal: Denies abdominal pain, diarrhea, nausea or vomiting Genitourinary Genitourinary ED: Reports urinary frequency; Denies dysuria or hematuria Musculoskeletal Musculoskeletal: Denies back pain, myalgias or neck pain Integumentary Reports other Details: Small contusion to lateral portion of right eyebrow. ; Denies rash Neurologic Neurologic: Denies headache(s), paresthesias or weakness Endocrine Endocrinology: Denies polydipsia or polyuria Hematologic/Lymphatic Hematologic/Lymphatic: Denies easy bleeding or easy bruising Allergic/Immunologic Allergic/Immunologic ED: Denies urticaria EXAM Physical Exam Narrative Exam Narrative: Patient is awake alert and appropriate in bed. She seems very quick. She is very interactive. HEENT does show a small contusion on the lateral aspect of the right eyebrow. But no step-off. No other signs of trauma. Mucous membranes are minimally dry. Eyes show no icterus subconjunctival hemorrhage or pallor. Neck shows no tenderness or pain with motion. Lungs are clear bilaterally no pain with a deep breath. Oxygen saturation are 94 to 95% on room air showing no hypoxia. Heart is regular. Rate is about 95. I do not hear a murmur. Pulses peripherally are normal. Abdomen is thin soft nondistended nontender. No pulsatile mass. No bruit. Normal bowel sounds. shows no suprapubic or CVA tenderness. Extremities show no sign of trauma or pain with motion. No pain with pelvis compression. Neurologically she is awake and alert to person place time situation and president [facility]. Const Vital Signs: 08/12/22 17:50 08/12/22 18:05 08/12/22 19:47 Temperature 97.9 F 97.9 F Temperature Source Temporal Temporal Pulse Rate 100 91 Respiratory Rate 18 18 Respiratory Effort Normal Respiratory Pattern Normal Blood Pressure 110/73 125/54 H Blood Pressure Mean 85 77 Pulse Ox 94 100 Oxygen Delivery Method Room Air Room Air MDM MDM MDM Narrative Medical decision making narrative: My independent interpretation of her CT scan of the head without contrast shows no acute process. No sign of fracture or bleeding. Official reading is chronic involutional changes. My independent interpretation of the patient's chest x-ray shows no sign of infiltrate pneumothorax or failure. Final reading by radiology as no acute cardiopulmonary disease or major interval change. 9 Blood work shows minimal elevation white count at 11.3 which is nonspecific. Hemoglobin platelets are normal. Potassium was a bit low and this was replaced. She also had a bump again her creatinine and BUN. She has had it this high before. But she is not nauseated. She was given IV fluids. She is urinating well. Your did show positive lites with increased white cells and 2+ bacteria along with leukocyte Estrace. This urinalysis along with her symptoms and history of UTIs will prompt me to treat this. She does have history of allergy to penicillin. She has been on Macrobid without problems. I looked at a prior culture and she had E. coli that was sensitive to Macrobid so I will we will start this at this time. I did talk with her and her family. They would all prefer her to go home. She is going to go stay with her daughter. We discussed that if she gets any more return of confusion, weakness, nausea vomiting, fevers or any other concerns she should come back. History & Record Review Discussion w/independent historian: Family Lab Data Attestation: I reviewed the patient's lab results. Labs: Laboratory Results - last 24 hr 08/12/22 08/12/22 08/12/22 18:10 18:10 20:20 WBC 11.3 H RBC 3.84 L Hgb 12.9 Hct 37.8 MCV 98.4 MCH 33.6 H MCHC 34.1 RDW Std Deviation 44.9 H RDW Coeff of Erma 12.5 Plt Count 161 MPV 11.0 Immature Gran % (Auto) 0.400 Neut % (Auto) 88.3 H Lymph % (Auto) 6.6 L [place] % (Auto) 4.4 Eos % (Auto) 0.1 Baso % (Auto) 0.2 Absolute Neuts (auto) 10.0 H Absolute Lymphs (auto) 0.75 L Nucleated RBC % 0 Sodium 136 Potassium 3.1 L Chloride 99 Carbon Dioxide 22.0 Anion Gap 15 BUN 78 H Creatinine 2.53 H Estim Creat Clear Calc 14.26 Est GFR (MDRD) Af Amer 24 L Est GFR (MDRD) Non-Af 20 L BUN/Creatinine Ratio 30.8 H Glucose 159 H Calcium 9.1 Urine Color Yellow Urine Clarity Clear Urine pH 6.0 Ur Specific [place] 1.015 Urine Protein 15 H Urine Glucose (UA) Normal Urine Ketones Negative Urine Occult Blood 10 H Urine Nitrite Positive H Urine Bilirubin Negative Urine Urobilinogen Normal Ur Leukocyte Esterase 500 H Urine RBC 0 SEEN Urine WBC 5-10 SEEN Ur Squamous Epith Cells 0-5 SEEN Urine Bacteria 2+ Urine Mucus 0 SEEN Radiography Diagnostic Testing: Clinical Impression(s) from Imaging Studies Brain CT 08/12/22 18:11 IMPRESSION: Chronic involutional changes without evidence of acute intracranial or calvarial abnormality. No major interval change. Electronically Signed: John Arango DO at 18:49 EST Reading Location ID and State: [facility] / [place] Tel [phone], Service support , Chest X-Ray 08/12/22 18:15 IMPRESSION: No acute cardiopulmonary disease or major interval change. Electronically Signed: John Arango DO at 18:40 EST Reading Location ID and State: [facility] / [place] Tel [phone], Service support , Discharge Plan Triage Chief Complaint: Weakness ED Provider: Renzo Yun Dx/Rx/DC Orders Clinical Impression: Acute UTI, Dehydration Instructions: Urinary Tract Infections in Women Prescriptions: New nitrofurantoin monohyd/m-cryst [Macrobid] 100 mg capsule 100 mg PO BID 7 Days Qty: 20 0RF Rx Instructions: must administer with a meal/food No Action carbidopa-levodopa 1 EACH tablet 1 tab PO BID pantoprazole 40 MG tablet 40 mg PO BID potassium chloride 20 MEQ tablet 10 meq PO QODAY atorvastatin 10 mg tablet 10 mg PO QHS doxycycline hyclate [Vibramycin] 100 mg Capsule 100 mg PO BID copper gluconate 2 mg Tablet 4 mg PO DAILY cholecalciferol (vitamin D3) [Vitamin D3] 50 mcg (2,000 unit) Tablet 50 mcg PO DAILY ferrous sulfate 325 MG tablet 325 mg PO BIDCM Qty: 0 0RF losartan-hydrochlorothiazide 50-12.5 mg tablet Myrbetriq 50 mg tablet extended release 24 hr 50 mg PO BID Label Comments: TAKE 2 TABLETS BY MOUTH ONCE DAILY trazodone 100 mg Tablet 100 mg PO QHS cephalexin 500 mg capsule 500 mg PO BID Qty: 4 0RF Primary Care Provider: Vianca Baca Referrals: Vianca Baca MD [Primary Care Provider] - 3-5 Days Disposition Disposition: Home, Self Care
[2022-08-12] MEDS: Potassium Chloride Oral Tablet 20 MEQ PO (18:58)
[2022-08-12] MEDS: 0.9% Normal Saline 1,000 ML 999 ML IV (19:43)
[2022-08-12 19:47] VITALS: BP 125/54; PULSE 91; RESP 18; TEMP 36.6; O2SAT 100
[2022-08-12 20:00] VITALS: BP 125/55; PULSE 93; RESP 18; TEMP 36.8; O2SAT 100
[2022-08-12 20:24] LABS: Mucous, Urine 0 SEEN /hpf (<or=2+); Red Blood Cells-Urine 0 SEEN /hpf (0-5)
[2022-08-12 20:32] LABS: Color, Urine Yellow (Yellow); Glucose, Dipstick Normal (Normal); Ketone-Dipstick Negative (Negative); Leukocyte Esterase-Dipstick 500 /ul (Negative); Nitrite-Dipstick Positive (Negative); Occult Blood-Urine 10 /ul (Negative); Protein-Dipstick 15 mg/dl (Negative); Specific Gravity, Urine 1.015 (1.002-1.030); Urine Bilirubin Dipstick Negative (Negative); Urine Clarity Clear (Clear); Urine Urobilinogen Normal (Normal)
[2022-08-12 20:50] LABS: Bacteria 2+ /hpf (None Seen); Squamous Epithelial Cells - UA 0-5 SEEN /hpf (5-10); White Blood Cells 5-10 SEEN /hpf (0-5)
[2022-08-12] MEDS: Nitrofurantoin Macrocrystals 100 MG Capsule PO (21:09)
[2022-08-12 21:11] VITALS: BP 126/53; PULSE 89; RESP 18; O2SAT 100
== END 2022-08-12 21:30 | disposition home or self-care (01) ==
PROVIDERS: Emergency Provider Emergency Medicine; PCP Internal Medicine; Visit Provider Emergency Medicine
DX: N39.0 Urinary tract infection, site not specified (principal); E78.5 Hyperlipidemia, unspecified; I25.10 Atherosclerotic heart disease of native coronary artery without angina pectoris; E86.0 Dehydration; I10 Essential (primary) hypertension; W06.XXXA Fall from bed, initial encounter; G25.81 Restless legs syndrome; Z79.899 Other long term (current) drug therapy; K21.9 Gastro-esophageal reflux disease without esophagitis; F41.9 Anxiety disorder, unspecified; Z95.0 Presence of cardiac pacemaker; S00.11XA Contusion of right eyelid and periocular area, initial encounter
CPT/HCPCS: 70450; 71045; 80048; 81001; 85025; 87077; 87086; 87088; 87186; 96360; 99285; J7030; J7040; A4216

== ENCOUNTER 2022-08-19 09:26 | Inpatient (IN) | payer MEDICARE, OTHER, SELFPAY ==
[2022-08-19 09:29] VITALS: BP 145/117; PULSE 98; RESP 18; TEMP 36.9; O2SAT 95; BMI 26.0
[2022-08-19 09:58] LABS: Absolute Lymphocyte Count 0.98 X10^3/uL (0.83-4.51); Absolute Neutrophil Count 6.1 X10^3/uL (2.0-7.7); Basophil# 0.02 X10^3/uL; Basophil% 0.2 % (0-1); Eosinophil# 0.08 X10^3/uL; Hematocrit 30.4 % (37-47); Hemoglobin 10.2 g/dL (12.0-15.0); Lymphocyte # 0.98 X10^3/ul (0.83-4.51); Mean Corp Hgb Conc 33.6 g/dL (32-36); Mean Corpuscular Hgb 32.9 pg (27.0-32.0); Mean Corpuscular Volume 98.1 fL (81-99); Mean Platelet Vol. 9.8 fl (6.2-12.0); Monocyte# 0.88 X10^3/uL; Monocyte% 10.7 % (0-10); NRBC Flagged by Analyzer 0 % (0-5); Neutrophil # 6.11 X10^3/uL (2.7-7.7); Neutrophil % 74.5 % (47-70); Platelet Count 183 K/mm3 (150-450); RBC Distribution Width CV 12.1 % (11.6-14.6); RBC Distribution Width SD 43.8 fl (35.1-43.9); White Blood Count 8.2 K/mm3 (4.4-11.0)
[2022-08-19 10:10] LABS: Anion Gap 10 (5-15); BUN 50 mg/dL (7-18); BUN/Creat Ratio 22.8 RATIO (10-20); Calcium,Total 8.7 mg/dL (8.5-10.1); Chloride 96 mmol/L (98-107); Creatinine, Serum 2.19 mg/dL (0.55-1.02); EST Glomerular Filtration Rate 23 mL/min (>60); Est Glom Filt Rate - Afr Amer 28 mL/min (>60); Estimated Creatinine Clearance 16.47 ml/min; Glucose 110 mg/dL (74-106); Potassium 3.1 mmol/L (3.5-5.1); Sodium Level 127 mmol/L (136-145)
--- NOTE | 2022-08-19 10:22 | CT_ITS ---
STUDY: CT BRAIN WITHOUT CONTRAST REASON FOR EXAM: Female, 77 years old. Confusion. Weakness, Parkinson''s disease. Hypertension. RADIATION DOSAGE (If Supplied By Facility): CTDIvol = ( 44.99 ) mGy, DLP = ( 779.24 ) mGycm TECHNIQUE: Transaxial CT imaging of the brain was performed without administration of intravenous contrast material. Individualized dose optimization techniques were used for this CT. COMPARISON: Head CT dated August 12, 2022 FINDINGS: Normal soft tissue structures. Normal calvarium. There is mild cerebral atrophy with widening of the extra-axial spaces and ventricular dilatation. There are areas of decreased attenuation within the white matter tracts of the supratentorial brain, consistent with microvascular disease changes. Normal basal ganglia and thalami. Normal brainstem. Normal cerebellum. There is no intracranial hemorrhage. There are no findings of an acute ischemic infarction. Normal visualized paranasal sinuses. CT/Brain/Head without Contrast IMPRESSION: Chronic involutional changes of the brain. Electronically Signed: Garth Everett MD at 11:36 EDT ,
--- NOTE | 2022-08-19 10:24 | RAD_ITS ---
STUDY: X-RAY - LEFT SHOULDER REASON FOR EXAM: Female, 77 years old. pain TECHNIQUE: 4 view(s) of the shoulder. COMPARISON: Chest x-ray dated August 12, 2022 FINDINGS: There is severe degenerative arthrosis of the glenohumeral articulation. Normal acromioclavicular joint. Normal acromion. Bulky osteophyte formation is present at the medial inferior aspect of the humeral head. Reactive sclerosis and subchondral cystic changes are also present in the medial aspect of the humeral head. The soft tissue structures are unremarkable. Normal visualized pulmonary apex. Left chest cardiac device and CABG clips. RAD/Shoulder min 2 Views IMPRESSION: Severe DJD of the left shoulder. Electronically Signed: Garth Everett MD at 11:47 EDT ,
--- NOTE | 2022-08-19 10:25 | EX.ED.DYSGE1 ---
HPI History of Present Illness Chief Complaint: Weakness Informant: patient and family Narrative Narrative: Patient presents secondary to weakness and confusion. She was seen in the emergency room a week ago and diagnosed with a UTI. Family states that a few days later they got a phone call that the antibiotic needed to be switched. She is now been on a new antibiotic the last 3 days. Daughter states that she was at her mother's home last night, had dinner with her and helped her shower. She seemed well. This morning she was confused and very weak. She denies a fall. She is complaining of whole body pain. [facility] Medical History Anxiety CAD (coronary artery disease) Depression Dyspnea GERD (gastroesophageal reflux disease) GI bleed HTN (hypertension) Hyperlipidemia Iron deficiency anemia Irregular heart beat Kidney stones Osteoarthritis Pacemaker Parkinson disease Post-menopausal Restless legs Rheumatoid arthritis Home Medications carbidopa 25 mg-levodopa 100 mg tablet 1 tab PO BID restless legs 11/29/18 [History Last Taken 05/01/21] pantoprazole 40 mg tablet,delayed release 40 mg PO BID gerd 03/01/19 [History Last Taken 05/01/21] potassium chloride 20 mEq tablet,extended release(part/cryst) 10 meq PO QODAY supplement 03/28/19 [History Last Taken Unknown] atorvastatin 10 mg tablet 10 mg PO QHS cholesterol 05/01/21 [History Last Taken Unknown] cholecalciferol (vitamin D3) 50 mcg (2,000 unit) tablet (Vitamin D3) 50 mcg PO DAILY supplement 05/01/21 [History Last Taken Unknown] copper gluconate 2 mg tablet 4 mg PO DAILY supplement 05/01/21 [History Last Taken Unknown] doxycycline hyclate 100 mg capsule (Vibramycin) 100 mg PO BID antibiotic 05/01/21 [History Last Taken Unknown] ferrous sulfate 325 mg (65 mg iron) tablet 325 mg PO BIDCM anemia #0 tabs 05/06/21 [Rx Last Taken 03/01/19] losartan 50 mg-hydrochlorothiazide 12.5 mg tablet tab 05/30/22 [History Last Taken Unknown] mirabegron 50 mg tablet,extended release 24 hr (Myrbetriq) 50 mg PO BID 05/30/22 [History Last Taken Unknown] trazodone 100 mg tablet 100 mg PO QHS 05/30/22 [History Last Taken Unknown] cephalexin 500 mg capsule 500 mg PO BID #4 caps 06/02/22 [Rx Last Taken Unknown] nitrofurantoin monohydrate/macrocrystals 100 mg capsule (Macrobid) 100 mg PO BID 7 days #20 caps 08/12/22 [Rx Last Taken Unknown] Allergy/AdvReac Type Severity Reaction Status Date / Time amoxicillin Allergy Itching Verified 08/12/22 17:54 Penicillins Allergy Itching Verified 08/12/22 17:54 Family History Other Diabetes Hypertension Surgical History History of total knee replacement (TKR) Hx of CABG S/P hysterectomy Social History household members: none housing: house Smoking Status: Never smoker substance use type: does not use ROS ROS ED Constitutional Constitutional ED: Denies chills or fever(s) Eyes Eyes: Denies change in vision or discharge from eye(s) ENT ENT ED: Denies discharge from eye(s), rhinorrhea or sore throat Cardiovascular Cardiovascular: Denies chest pain or palpitations Respiratory/Chest Respiratory/Chest: Denies cough or dyspnea Gastrointestinal Gastrointestinal: Denies abdominal pain, nausea or vomiting Genitourinary Genitourinary ED: Reports urinary frequency Musculoskeletal Musculoskeletal: Reports back pain, extremity pain and myalgias Integumentary Denies Abrasions or rash Neurologic Neurologic: Reports weakness; Denies headache(s) Allergic/Immunologic Allergic/Immunologic ED: Denies lip swelling or urticaria EXAM Physical Exam Const Vital Signs: 08/19/22 09:29 08/19/22 12:11 Temperature 98.5 F Temperature Source Temporal Pulse Rate 98 96 Respiratory Rate 18 19 H Blood Pressure 145/117 H 110/62 Blood Pressure Mean 126 78 Pulse Ox 95 98 Oxygen Delivery Method Room Air Room Air Positive well nourished and well developed General Appearance ED: well developed HEENT Reports normocephalic and head/scalp atraumatic Eyes PERRL and EOMs intact bilaterally Neck supple Chest Wall inspection of chest normal and palpation of chest normal Resp normal respiratory effort and clear to auscultation bilaterally Cardio regular rate and regular rhythm GI non-tender Palpation: soft Back/Spine no CVA tenderness Extremity Extremity Narrative: 1-2+ bilateral lower extremity edema, symmetric. Neuro Neuro Narrative: No focal neurologic deficits. Sensorium / Orientation: alert Psych mental status grossly normal Skin no rashes or lesions noted MDM MDM MDM Narrative Medical decision making narrative: Patient placed on rn cardiac. Head CT obtained given the patient's confusion. Labwork obtained to evaluate for leukocytosis, anemia, and electrolyte derangement. Urinalysis obtained given her confusion and recent UTI. Chest x-ray and left shoulder x-rays obtained given pain. She is given normal saline. Lab Data Attestation: I reviewed the patient's lab results. Labs: Laboratory Results - last 24 hr 08/19/22 08/19/22 08/19/22 09:50 09:50 10:34 WBC 8.2 RBC 3.10 L Hgb 10.2 L Hct 30.4 L MCV 98.1 MCH 32.9 H MCHC 33.6 RDW Std Deviation 43.8 RDW Coeff of Erma 12.1 Plt Count 183 MPV 9.8 Immature Gran % (Auto) 1.600 H Neut % (Auto) 74.5 H Lymph % (Auto) 12.0 L [place] % (Auto) 10.7 H Eos % (Auto) 1.0 Baso % (Auto) 0.2 Absolute Neuts (auto) 6.1 Absolute Lymphs (auto) 0.98 Nucleated RBC % 0 Sodium 127 L Potassium 3.1 L Chloride 96 L Carbon Dioxide 21.0 Anion Gap 10 BUN 50 H Creatinine 2.19 H Estim Creat Clear Calc 16.47 Est GFR (MDRD) Af Amer 28 L Est GFR (MDRD) Non-Af 23 L BUN/Creatinine Ratio 22.8 H Glucose 110 H Lactic Acid 1.1 Calcium 8.7 Urine Color Urine Clarity Urine pH Ur Specific [place] Urine Protein Urine Glucose (UA) Urine Ketones Urine Occult Blood Urine Nitrite Urine Bilirubin Urine Urobilinogen Ur Leukocyte Esterase Urine RBC Urine WBC Ur Squamous Epith Cells Urine Bacteria Urine Mucus 08/19/22 11:00 WBC RBC Hgb Hct MCV MCH MCHC RDW Std Deviation RDW Coeff of Erma Plt Count MPV Immature Gran % (Auto) Neut % (Auto) Lymph % (Auto) [place] % (Auto) Eos % (Auto) Baso % (Auto) Absolute Neuts (auto) Absolute Lymphs (auto) Nucleated RBC % Sodium Potassium Chloride Carbon Dioxide Anion Gap BUN Creatinine Estim Creat Clear Calc Est GFR (MDRD) Af Amer Est GFR (MDRD) Non-Af BUN/Creatinine Ratio Glucose Lactic Acid Calcium Urine Color Yellow Urine Clarity Sl. Cloudy Urine pH 6.0 Ur Specific [place] 1.010 Urine Protein Negative Urine Glucose (UA) Normal Urine Ketones Negative Urine Occult Blood Negative Urine Nitrite Negative Urine Bilirubin Negative Urine Urobilinogen Normal Ur Leukocyte Esterase Negative Urine RBC 0 SEEN Urine WBC 0 SEEN Ur Squamous Epith Cells 0-5 SEEN Urine Bacteria 0 SEEN Urine Mucus 0 SEEN Radiography Chest X-Ray - ED: 1 View, Read by ED Physician, Chronic Changes and No Infiltrates Diagnostic Testing: Clinical Impression(s) from Imaging Studies Brain CT 08/19/22 10:22 IMPRESSION: Chronic involutional changes of the brain. Electronically Signed: Garth Everett MD at 11:36 EDT , Shoulder X-Ray 08/19/22 10:24 IMPRESSION: Severe DJD of the left shoulder. Electronically Signed: Garth Everett MD at 11:47 EDT , Chest X-Ray 08/19/22 11:20 IMPRESSION: Degenerative changes, as described above. No demonstrated acute cardiopulmonary process. Electronically Signed: Garth Everett MD at 11:46 EDT , Differential Diagnosis Differential Diagnosis: Sepsis Why less likely: Normal blood pressure, normal lactic acid, normal white count. Differential Diagnosis: UTI Why less likely: No sign of infection on current urinalysis. Treatment and Re-Evaluation :: CBC reveals normal white count. Hemoglobin today is 10.3, down from 12.9 one week ago. When asked patient does report having dark stools recently. Stool guaiac is sent. This is negative. Chemistry studies significant for a sodium of 127. This is down from a sodium of 136 one week ago. Potassium is 3.1 and this is replaced IV. Creatinine today is 2.19, improved from prior creatinine of 2.53. Urinalysis today reveals no evidence of infection. Lactic acid is normal. Chest x-ray per my interpretation reveals pacemaker to be in good position. Chronic changes noted with no acute findings. Radiology interpretation is reviewed and agrees. Left shoulder x-rays are obtained and reveal no evidence of acute fracture. Per my interpretation arthritic changes are noted in radiology interpretation concurs. CT scan of the head reveals no acute findings. With patient having weakness and confusion, I will speak with the hospitalist for admission. Her sodium and potassium levels are being corrected. At this time I see no evidence of acute infection. Discharge Plan Triage Chief Complaint: Weakness ED Provider: Ramona Albright Dx/Rx/DC Orders Clinical Impression: Confusion, Weakness, Acute hyponatremia, Acute hypokalemia Prescriptions: No Action carbidopa-levodopa 1 EACH tablet 1 tab PO BID pantoprazole 40 MG tablet 40 mg PO BID potassium chloride 20 MEQ tablet 10 meq PO QODAY atorvastatin 10 mg tablet 10 mg PO QHS doxycycline hyclate [Vibramycin] 100 mg Capsule 100 mg PO BID copper gluconate 2 mg Tablet 4 mg PO DAILY cholecalciferol (vitamin D3) [Vitamin D3] 50 mcg (2,000 unit) Tablet 50 mcg PO DAILY ferrous sulfate 325 MG tablet 325 mg PO BIDCM Qty: 0 0RF losartan-hydrochlorothiazide 50-12.5 mg tablet Myrbetriq 50 mg tablet extended release 24 hr 50 mg PO BID Label Comments: TAKE 2 TABLETS BY MOUTH ONCE DAILY trazodone 100 mg Tablet 100 mg PO QHS cephalexin 500 mg capsule 500 mg PO BID Qty: 4 0RF nitrofurantoin monohyd/m-cryst [Macrobid] 100 mg capsule 100 mg PO BID 7 Days Qty: 20 0RF Rx Instructions: must administer with a meal/food Primary Care Provider: Vianca Baca Referrals: Vianca Baca MD [Primary Care Provider] - Disposition Disposition: [facility]
[2022-08-19 11:04] LABS: Bacteria 0 SEEN /hpf (None Seen); Mucous, Urine 0 SEEN /hpf (<or=2+); Red Blood Cells-Urine 0 SEEN /hpf (0-5); White Blood Cells 0 SEEN /hpf (0-5)
[2022-08-19 11:07] LABS: Lactic Acid 1.1 mmol/L (0.4-1.9)
[2022-08-19 11:15] LABS: Color, Urine Yellow (Yellow); Glucose, Dipstick Normal (Normal); Ketone-Dipstick Negative (Negative); Leukocyte Esterase-Dipstick Negative /ul (Negative); Nitrite-Dipstick Negative (Negative); Occult Blood-Urine Negative /ul (Negative); Protein-Dipstick Negative (Negative); Urine Bilirubin Dipstick Negative (Negative); Urine Clarity Sl. Cloudy (Clear); Urine Urobilinogen Normal (Normal)
--- NOTE | 2022-08-19 11:20 | RAD_ITS ---
STUDY: X-RAY CHEST REASON FOR EXAM: Female, 77 years old. sob PT STATES SHE IS WEAKER THAN NORMAL, DAUGHTER SENT HER IN TO BE EVALUATED FOR A UTI. PT STATES BURNING WITH URINATION TECHNIQUE: Single AP portable view of the chest. COMPARISON: August 12, 2022 FINDINGS: Stable left chest cardiac device and leads and retained leads fragment. The lungs are clear and expanded. There is no demonstrated pleural abnormality. Sternal cerclage wires and vascular clips are present from a prior sternotomy and coronary artery bypass graft procedure (CABG). Normal heart size. Normal mediastinum and wale. Normal visualized pulmonary arteries. There is atherosclerotic calcification of the aortic arch with tortuosity. There are diffuse degenerative changes of the visualized thoracic spine. There is degenerative osteoarthritis of the bilateral shoulders. There is no demonstrated abnormality of the visualized soft tissue structures of the upper abdomen. RAD/Chest 1 View (Portable) IMPRESSION: Degenerative changes, as described above. No demonstrated acute cardiopulmonary process. Electronically Signed: Garth Everett MD at 11:46 EDT ,
[2022-08-19 11:22] LABS: Squamous Epithelial Cells - UA 0-5 SEEN /hpf (5-10)
[2022-08-19] MEDS: 0.9% Normal Saline 1,000 ML 150 ML IV (12:02)
[2022-08-19] MEDS: Potassium Chloride 10mEq/100mL 10 MEQ/100 ML IV.SOLN. 100 MEQ IV BOLUS ×4 (12:02→15:14)
[2022-08-19 12:11] VITALS: BP 110/62; PULSE 96; RESP 19; O2SAT 98
[2022-08-19 14:00] VITALS: BP 118/64; PULSE 85; RESP 20; TEMP 37.3; O2SAT 94
--- NOTE | 2022-08-19 15:14 | HP.PCM.HOS_ITS ---
HPI - General General Date of Admission: 08/19/22 HPI Narrative DAVID PORRAS, is a 77 F who presents with altered mental status and weakness. Family states that they had dinner with her last night she seemed okay but this morning they went over and she was sitting naked in the chair, and had difficulty rising on her own and needs significant assistance by her children. She did not know why she was naked. In the ER she does not know what year it is though she does know where she is. Family does indicate that there has been progressive worsening in mental status over the last several months and they are actually currently looking into assisted living. Of note she was recently in the ER about a week ago and was diagnosed with a UTI and started on Macrobid however this was changed to Levaquin when sensitivities came back. Unfortunately she is to be dosed every 48 hours and she has been getting the Levaquin every day so we will hold the dose today and restart tomorrow morning. In the ER lab work demonstrates a sodium of 127 and potassium of 3.1. Her renal function is actually better than it was a week ago at 2.19. [facility] Medical History Anxiety CAD (coronary artery disease) Depression Dyspnea GERD (gastroesophageal reflux disease) GI bleed HTN (hypertension) Hyperlipidemia Iron deficiency anemia Irregular heart beat Kidney stones Osteoarthritis Pacemaker Parkinson disease Post-menopausal Restless legs Rheumatoid arthritis Home Medications carbidopa 25 mg-levodopa 100 mg tablet 1 tab PO BID restless legs 11/29/18 [History Last Taken 05/01/21] pantoprazole 40 mg tablet,delayed release 40 mg PO BID gerd 03/01/19 [History Last Taken 05/01/21] potassium chloride 20 mEq tablet,extended release(part/cryst) 10 meq PO DAILY supplement 03/28/19 [History Last Taken Unknown] atorvastatin 10 mg tablet 10 mg PO QHS cholesterol 05/01/21 [History Last Taken Unknown] cholecalciferol (vitamin D3) 50 mcg (2,000 unit) tablet (Vitamin D3) 50 mcg PO DAILY supplement 05/01/21 [History Last Taken Unknown] copper gluconate 2 mg tablet 4 mg PO DAILY supplement 05/01/21 [History Last Taken Unknown] doxycycline hyclate 100 mg capsule (Vibramycin) 100 mg PO BID antibiotic 11/27/21 [History Last Taken Unknown] losartan 50 mg-hydrochlorothiazide 12.5 mg tablet 1 tab PO DAILY . 05/30/22 [History Last Taken Unknown] mirabegron 50 mg tablet,extended release 24 hr (Myrbetriq) 50 mg PO BID 05/30/22 [History Last Taken Unknown] trazodone 100 mg tablet 100 mg PO QHS 05/30/22 [History Last Taken Unknown] ferrous sulfate 325 mg (65 mg iron) tablet 325 mg PO DAILY anemia 08/19/22 [History Last Taken Unknown] levofloxacin 750 mg tablet 750 mg PO DAILY ANTIBIOTIC 08/19/22 [History Last Taken Unknown] Allergy/AdvReac Type Severity Reaction Status Date / Time amoxicillin Allergy Itching Verified 08/12/22 17:54 Penicillins Allergy Itching Verified 08/12/22 17:54 Family History Other Diabetes Hypertension Surgical History History of total knee replacement (TKR) Hx of CABG S/P hysterectomy Social History household members: none housing: house Smoking Status: Never smoker substance use type: does not use ROS Constitutional Constitutional: Reports weakness; Denies chills, fatigue, fever(s) or malaise Eyes Eyes: Denies blurry vision ENT HEENT: Denies headache(s) or nasal discharge Cardiovascular Cardiovascular: Denies chest pain, dyspnea on exertion or syncope Respiratory/Chest Respiratory/Chest: Denies cough, shortness of breath at rest or shortness of breath with exertion Gastrointestinal Gastrointestinal: Denies constipation, diarrhea, nausea or vomiting Genitourinary Genitourinary: Denies dysuria Neurologic Neurologic: Reports confusion; Denies focal weakness, numbness or tremor(s) Psychiatric Psychiatric: Denies anxiety or depression Vital Signs Vital Signs Vital Signs: 08/19/22 09:29 08/19/22 12:11 08/19/22 14:00 Temperature 98.5 F 99.2 F H Temperature Source Temporal Temporal Pulse Rate 98 96 85 Respiratory Rate 18 19 H 20 H Blood Pressure 145/117 H 110/62 118/64 Blood Pressure Mean 126 78 82 Pulse Ox 95 98 94 Oxygen Delivery Method Room Air Room Air Weight Weight: 142 lb 6.698 oz Body Mass Index (BMI) 26.0 Physical Exam Narrative General: Alert, Oriented x2, Cooperative, No apparent distress HEENT: Atraumatic, PERRLA, EOMI, Normocephalic Oral: Moist Mucosa Neck: Supple, No JVD Lungs: Clear to auscultation, Normal air movement, No rhonchi, No wheeze, No rales Cardiovascular: Regular rate, Regular Rhythm, Normal S1, Normal S2, No murmurs Abdomen: Soft, Non Tender, Non-Distended, No Hepato-splenomegaly Extremities: No edema, Capillary Refill Less than 3 Seconds Skin: No rashes, No breakdown Musculoskeletal: No Tenderness to Palpation of Joints or Extremities Neurological: Cranial nerves II-XII grossly intact, Motor Exam 5/5 strength thro ughout, Sensory exam intact to light touch and pain Psych/Mental Status: Normal Affect, Appropriate Results Lab / Micro Data Result Diagrams: 08/19/22 09:50 08/19/22 09:50 Labs: Laboratory Results - last 24 hr 08/19/22 09:50: WBC 8.2, RBC 3.10 L, Hgb 10.2 L, Hct 30.4 L, MCV 98.1, MCH 32.9 H, MCHC 33.6, RDW Std Deviation 43.8, RDW Coeff of Erma 12.1, Plt Count 183, MPV 9.8, Immature Gran % (Auto) 1.600 H, Neut % (Auto) 74.5 H, Lymph % (Auto) 12.0 L , [place] % (Auto) 10.7 H, Eos % (Auto) 1.0, Baso % (Auto) 0.2, Absolute Neuts (auto) 6.1, Absolute Lymphs (auto) 0.98, Nucleated RBC % 0 08/19/22 09:50: Sodium 127 L, Potassium 3.1 L, Chloride 96 L, Carbon Dioxide 21.0, Anion Gap 10, BUN 50 H, Creatinine 2.19 H, Estim Creat Clear Calc 16.47, Est GFR (MDRD) Af Amer 28 L, Est GFR (MDRD) Non-Af 23 L, BUN/Creatinine Ratio 22.8 H, Glucose 110 H, Calcium 8.7 08/19/22 10:34: Lactic Acid 1.1 08/19/22 11:00: Urine Color Yellow, Urine Clarity Sl. Cloudy, Urine pH 6.0, Ur Specific [place] 1.010, Urine Protein Negative, Urine Glucose (UA) Normal, Urine Ketones Negative, Urine Occult Blood Negative, Urine Nitrite Negative, Urine Bilirubin Negative, Urine Urobilinogen Normal, Ur Leukocyte Esterase Negative, Urine RBC 0 SEEN, Urine WBC 0 SEEN, Ur Squamous Epith Cells 0-5 SEEN, Urine Bacteria 0 SEEN, Urine Mucus 0 SEEN Micro: Microbiology 08/19/22 11:55 Stool Stool Occult Blood (KYLE) - Final Radiology Impression Brain CT 08/19/22 10:22 IMPRESSION: Chronic involutional changes of the brain. Electronically Signed: Garth Everett MD at 11:36 EDT , Shoulder X-Ray 08/19/22 10:24 IMPRESSION: Severe DJD of the left shoulder. Electronically Signed: Garth Everett MD at 11:47 EDT , Chest X-Ray 08/19/22 11:20 IMPRESSION: Degenerative changes, as described above. No demonstrated acute cardiopulmonary process. Electronically Signed: Garth Everett MD at 11:46 EDT , Assessment & Plan Assessment/Plan (1) Confusion: (2) Weakness: (3) Acute hyponatremia: PLAN: Plan 1. Weakness and debility with inability to complete ADLs with altered mental status and confusion/UTI from E. coli/hyponatremia/HILARIO on CKD 3B ? We will consult PT/OT for evaluation and possible placement ? Family is already looking at assisted living options as she has been getting more confused as time is gone on ? We will continue with 1 more dose of Levaquin, given her creatinine clearance that should be dosed every 48 hours her last dose was last night so we will give her 1 more dose tomorrow and then it can be discontinued ? We will hold her hydrochlorothiazide given her hyponatremia and place her on IV fluids ? She is also hypokalemic so we will obtain a phosphorus and magnesium tomorrow morning and continue with potassium replacement ? Baseline creatinine is around 1.5 currently 2.19 we will continue with IV fluids 2. HTN/HLD/CAD status post CABG/pacemaker ? We will hold her hydrochlorothiazide secondary to hyponatremia and will hold losartan secondary to HILARIO ? Can continue with Lipitor 3. Restless legs ? They state that she takes Sinemet for restless legs given her age and the fact that this is not a standard treatment for restless legs will back off the dosing see if this helps with her confusion 4. Iron deficiency anemia/GERD/history of GI bleed ? We will continue with her iron replacement ? Continue with PPI DVT: SCDs Charges/Coding Visit Charges Inpatient E&M: 44644 Init Hosp L3
[2022-08-19 16:20] VITALS: BMI 22.6
[2022-08-19 16:31] VITALS: BP 113/68; PULSE 79; RESP 16; TEMP 36.9; O2SAT 98
[2022-08-19] MEDS: 0.9% Normal Saline 1,000 ML 100 ML IV (16:33)
[2022-08-19 21:28] VITALS: BP 102/62; PULSE 80; RESP 16; TEMP 37.2; O2SAT 100
[2022-08-19] MEDS: Pantoprazole Sodium 40 MG Tablet PO (21:29)
[2022-08-19] MEDS: traZODone 100 MG Tablet PO (21:29)
[2022-08-19] MEDS: Atorvastatin Calcium 10 MG Tablet PO (21:30)
[2022-08-20] MEDS: 0.9% Normal Saline 1,000 ML 100 ML IV ×3 (02:33→22:07)
[2022-08-20 03:30] VITALS: BP 97/56; PULSE 74; RESP 16; TEMP 36.7; O2SAT 99
[2022-08-20] MEDS: Carbidopa/Levodopa 25/100 Tablet PO (06:16)
[2022-08-20 08:39] LABS: Absolute Lymphocyte Count 0.96 X10^3/uL (0.83-4.51); Absolute Neutrophil Count 3.2 X10^3/uL (2.0-7.7); Basophil# 0.02 X10^3/uL; Basophil% 0.4 % (0-1); Eosinophil# 0.15 X10^3/uL; Eosinophils% 3.1 % (0-5); Hematocrit 28.6 % (37-47); Hemoglobin 9.2 g/dL (12.0-15.0); Lymphocyte # 0.96 X10^3/ul (0.83-4.51); Lymphocyte % 19.6 % (19-41); Mean Corp Hgb Conc 32.2 g/dL (32-36); Mean Corpuscular Volume 102.5 fL (81-99); Mean Platelet Vol. 10.3 fl (6.2-12.0); Monocyte# 0.46 X10^3/uL; Monocyte% 9.4 % (0-10); NRBC Flagged by Analyzer 0 % (0-5); Neutrophil # 3.24 X10^3/uL (2.7-7.7); Neutrophil % 65.9 % (47-70); Platelet Count 156 K/mm3 (150-450); RBC Distribution Width CV 12.5 % (11.6-14.6); RBC Distribution Width SD 47.1 fl (35.1-43.9); Red Blood Count 2.79 M/mm3 (4.2-5.4); White Blood Count 4.9 K/mm3 (4.4-11.0)
[2022-08-20 09:12] LABS: Anion Gap 12 (5-15); BUN 35 mg/dL (7-18); BUN/Creat Ratio 21.9 RATIO (10-20); Calcium,Total 7.5 mg/dL (8.5-10.1); Chloride 110 mmol/L (98-107); EST Glomerular Filtration Rate 33 mL/min (>60); Est Glom Filt Rate - Afr Amer 40 mL/min (>60); Estimated Creatinine Clearance 22.55 ml/min; Glucose 91 mg/dL (74-106); Magnesium 1.4 mg/dL (1.6-2.6); Phosphorus 2.8 mg/dL (2.5-4.9); Potassium 2.9 mmol/L (3.5-5.1); Sodium Level 141 mmol/L (136-145)
[2022-08-20] MEDS: Pantoprazole Sodium 40 MG Tablet PO ×2 (11:10→20:47)
[2022-08-20] MEDS: Ferrous Sulfate 325 MG Tablet PO (11:10)
[2022-08-20 11:19] VITALS: BP 85/55; PULSE 76; RESP 16; TEMP 36.4; O2SAT 96
[2022-08-20 13:16] VITALS: BP 95/50; PULSE 76; RESP 16; TEMP 36.8; O2SAT 99
--- NOTE | 2022-08-20 13:35 | PN_ITS ---
Subjective Subjective Patient seen and examined. She had no complaints and was comfortably eating breakfast. Review of systems was otherwise negative. BP was running low today, with systolic in the 90s. She remained asymptomatic. Review of systems is otherwise negative. Objective Data Objective Data Vital Signs: Vital Signs Temp Pulse Resp BP Pulse Ox O2 Del Method 98.3 F 76 16 95/50 L 99 Room Air 08/20/22 13:16 08/20/22 13:16 08/20/22 13:16 08/20/22 13:16 08/20/22 13:16 08/20/22 13:16 Oxygen Delivery Method Room Air Weight: 123 lb 14.397 oz Body Mass Index (BMI) 22.6 Intake & Output: Intake and Output for Last 24 Hours 08/18/22 08/19/22 08/20/22 23:59 23:59 23:59 Intake Total 1092.5 / 1092.5 2740 / 2740 Output Total 1150 / 1150 Balance 1092.5 / 742.5 1590 / 1590 Lab / Micro Data Result Diagrams: 08/20/22 07:18 08/20/22 07:18 Labs: Laboratory Results - last 24 hr 08/20/22 07:18: WBC 4.9, RBC 2.79 L, Hgb 9.2 L, Hct 28.6 L, MCV 102.5 H, MCH 33.0 H, MCHC 32.2, RDW Std Deviation 47.1 H, RDW Coeff of Erma 12.5, Plt Count 156, MPV 10.3, Immature Gran % (Auto) 1.600 H, Neut % (Auto) 65.9, Lymph % (Auto) 19.6, [place] % (Auto) 9.4, Eos % (Auto) 3.1, Baso % (Auto) 0.4, Absolute Neuts (auto) 3.2, Absolute Lymphs (auto) 0.96, Nucleated RBC % 0 08/20/22 07:18: Sodium 141, Potassium 2.9 L, Chloride 110 H, Carbon Dioxide 19.0 L, Anion Gap 12, BUN 35 H, Creatinine 1.60 H, Estim Creat Clear Calc 22.55, Est GFR (MDRD) Af Amer 40 L, Est GFR (MDRD) Non-Af 33 L, BUN/Creatinine Ratio 21.9 H , Glucose 91, Calcium 7.5 L, Phosphorus 2.8, Magnesium 1.4 L Micro: Microbiology 08/19/22 11:00 Urine Catheter - Catheter Urine Culture - Preliminary Culture exhibits no growth. 08/19/22 11:55 Stool Stool Occult Blood (KYLE) - Final Physical Exam Const alert, oriented x3 and no apparent distress HEENT normocephalic, head/scalp atraumatic and moist oral mucous membranes Eyes PERRL and EOMs intact bilaterally Neck supple and no JVD Lymph Lymphatic: no lymphadenopathy noted and no lymphedema noted Resp normal respiratory effort, normal air movement and clear to auscultation bilaterally Cardio regular rate, regular rhythm, S1 normal heart sound, S2 normal heart sound and no murmurs GI normal to inspection, nondistended, normoactive bowel sounds, soft to palpation, non-tender and non-distended Extremity normal capillary refill, no clubbing, cyanosis or edema and no calf tenderness Skin General Skin Exam: no breakdown Neuro CN's II-XII intact bilaterally, no focal motor deficits, no sensory deficits noted and deep tendon reflexes 2+ bilaterally Psych thought process normal, cooperative and affect normal Assessment & Plan Assessment/Plan (1) Confusion: (2) Weakness: (3) Acute hyponatremia: PLAN: Plan #Debility and weakness * feeling better today * PT/OT on board * fall precautions * #Altered mental status * likely due to hyponatremia. has improved, confusion seems to have resolved * being hydrated with IVF * hyponatremia resolved. * will trend sodium * #UTI * was being treated for UTI on outpatient bassis. Was on [id number] hourly. To et last dose today * #HILARIO on CKD 3: Cr is down to 1.6, from 2.19 on admission. Will rend Cr #HYpokalemia: K is 2.9. Will replace and trend. #Hyperension: HCZ on hold due to hyponatremia. Losatan held due to HILARIO. IV hydralzine prn #CAD s/p CABG: stable. On lipitor #Restless leg syndrome: sable. #GERD: o PPI. On oral iron replacement therapy. DVT prophylaxis: lovenox Charges/Coding Visit Charges Inpatient E&M: 39393 Subs Hosp L2
--- NOTE | 2022-08-20 14:10 | CASEMGMT ---
RN CM Face to Face with patient for initial transition planning/care coordination assessment. RN CM introduced self and role at [facility]. Patient lying in bed, alert and oriented, daughter at bedside. Patient willing to participate in assessment and is able to answer all questions appropriately. Care providers, pharmacy, and demographics verified. Daughter has been working on getting patient to assisted living. Patient and daughter agreeable to SNF at discharge with transition to Assisted Living. Patient required minimal assistance and walked 5 feet with therapy. A list of SNF providers including quality and resource use data and consistent with the patient?s preferred geographical region, medical needs, and insurance network were [facility]. Patient and daughter state they have no further needs or concerns at this time. CM to follow for discharge planning needs that may arise. PCP: Keven Specialists: none Preferred Pharmacy: [facility] Insurance: [facility] Physician Clarita Prescription Benefit: none Living Will/HPOA: yes, daughter Cristina Donato LNOK: daughter Living Arrangements: Patient lives alone in a single story home with 1 step to enter. Patient was independent at home. Transportation: daughter DME/HHC: Patient has shower chair, grab bars, and walker at home. No previous HHC or SNF. Disposition Plan: Patient to discharge to SNF pending acceptance. Samina CHAUDHRY, RN, CM
[2022-08-20] MEDS: Potassium Chloride 10mEq/100mL 10 MEQ/100 ML IV.SOLN. 100 MEQ IV BOLUS ×3 (15:00→19:21)
[2022-08-20 17:17] VITALS: BP 114/47; PULSE 83; RESP 16; TEMP 37.1; O2SAT 98
[2022-08-20] MEDS: traZODone 100 MG Tablet PO (20:47)
[2022-08-20] MEDS: Atorvastatin Calcium 10 MG Tablet PO (20:47)
[2022-08-20] MEDS: Potassium Chloride 10mEq/100mL 10 MEQ/100 ML IV.SOLN. 70 MEQ IV BOLUS (20:47)
[2022-08-20 21:00] VITALS: BP 94/49; PULSE 89; RESP 18; TEMP 37; O2SAT 99
[2022-08-21 03:00] VITALS: BP 107/44; PULSE 80; RESP 18; TEMP 36.9; O2SAT 96
[2022-08-21] MEDS: Carbidopa/Levodopa 25/100 Tablet PO (05:54)
[2022-08-21] MEDS: levoFLOXacin 750 MG Tablet PO (05:54)
[2022-08-21] MEDS: 0.9% Normal Saline 1,000 ML 100 ML IV (05:54)
[2022-08-21 06:21] LABS: Absolute Lymphocyte Count 1.19 X10^3/uL (0.83-4.51); Basophil# 0.03 X10^3/uL; Basophil% 0.4 % (0-1); Eosinophil# 0.21 X10^3/uL; Hematocrit 26.4 % (37-47); Hemoglobin 8.5 g/dL (12.0-15.0); Lymphocyte # 1.19 X10^3/ul (0.83-4.51); Mean Corp Hgb Conc 32.2 g/dL (32-36); Mean Corpuscular Hgb 33.6 pg (27.0-32.0); Mean Corpuscular Volume 104.3 fL (81-99); Mean Platelet Vol. 9.8 fl (6.2-12.0); Monocyte# 0.46 X10^3/uL; Monocyte% 6.6 % (0-10); NRBC Flagged by Analyzer 0 % (0-5); Neutrophil # 4.98 X10^3/uL (2.7-7.7); Neutrophil % 71.4 % (47-70); Platelet Count 163 K/mm3 (150-450); RBC Distribution Width SD 49.4 fl (35.1-43.9); Red Blood Count 2.53 M/mm3 (4.2-5.4)
[2022-08-21 06:59] LABS: Anion Gap 8 (5-15); BUN 29 mg/dL (7-18); BUN/Creat Ratio 21.2 RATIO (10-20); Calcium,Total 7.4 mg/dL (8.5-10.1); Chloride 114 mmol/L (98-107); Creatinine, Serum 1.37 mg/dL (0.55-1.02); EST Glomerular Filtration Rate 40 mL/min (>60); Est Glom Filt Rate - Afr Amer 48 mL/min (>60); Estimated Creatinine Clearance 26.34 ml/min; Glucose 92 mg/dL (74-106); Potassium 3.1 mmol/L (3.5-5.1); Sodium Level 141 mmol/L (136-145)
[2022-08-21 09:00] VITALS: BP 104/54; PULSE 75; RESP 16; TEMP 36.7; O2SAT 100
[2022-08-21] MEDS: Pantoprazole Sodium 40 MG Tablet PO ×2 (09:58→20:58)
[2022-08-21] MEDS: Potassium Chloride Oral Tablet 20 MEQ 40 MEQ PO (09:58)
[2022-08-21] MEDS: Ferrous Sulfate 325 MG Tablet PO (09:59)
--- NOTE | 2022-08-21 10:33 | PN_ITS ---
Subjective Subjective Patient seen and examined. She had no complaints todya and had an uneventful night. Review of systems is otherwise negative. She is awaiting placement. Objective Data Objective Data Vital Signs: Vital Signs Temp Pulse Resp BP Pulse Ox O2 Del Method 98.1 F 75 16 104/54 L 100 Room Air 08/21/22 09:00 08/21/22 09:00 08/21/22 09:00 08/21/22 09:00 08/21/22 09:00 08/21/22 09:00 Oxygen Delivery Method Room Air Weight: 123 lb 14.397 oz Body Mass Index (BMI) 22.6 Intake & Output: Intake and Output for Last 24 Hours 08/19/22 08/20/22 08/21/22 23:59 23:59 23:59 Intake Total 1092.5 / 1092.5 4290.00 / 4490.00 1078.33 / 1078.33 Output Total 1150 / 1150 Balance 1092.5 / 742.5 3140.00 / 3340.00 1078.33 / 1078.33 Lab / Micro Data Result Diagrams: 08/21/22 05:00 08/21/22 05:00 Labs: Laboratory Results - last 24 hr 08/21/22 05:00: WBC 7.0, RBC 2.53 L, Hgb 8.5 L, Hct 26.4 L, MCV 104.3 H, MCH 33.6 H, MCHC 32.2, RDW Std Deviation 49.4 H, RDW Coeff of Erma 13.0, Plt Count 163, MPV 9.8, Immature Gran % (Auto) 1.600 H, Neut % (Auto) 71.4 H, Lymph % (Auto) 17.0 L, [place] % (Auto) 6.6, Eos % (Auto) 3.0, Baso % (Auto) 0.4, Absolute Neuts (auto) 5.0, Absolute Lymphs (auto) 1.19, Nucleated RBC % 0 08/21/22 05:00: Sodium 141, Potassium 3.1 L, Chloride 114 H, Carbon Dioxide 19.0 L, Anion Gap 8, BUN 29 H, Creatinine 1.37 H, Estim Creat Clear Calc 26.34, Est GFR (MDRD) Af Amer 48 L, Est GFR (MDRD) Non-Af 40 L, BUN/Creatinine Ratio 21.2 H , Glucose 92, Calcium 7.4 L Micro: Microbiology 08/19/22 11:00 Urine Catheter - Catheter Urine Culture - Final Culture exhibits no growth. 08/19/22 11:55 Stool Stool Occult Blood (KYLE) - Final Physical Exam Const alert, oriented x3 and no apparent distress HEENT normocephalic, head/scalp atraumatic and moist oral mucous membranes Eyes PERRL and EOMs intact bilaterally Neck supple and no JVD Lymph Lymphatic: no lymphadenopathy noted and no lymphedema noted Resp normal respiratory effort, normal air movement and clear to auscultation rui aterally Cardio regular rate, regular rhythm, S1 normal heart sound, S2 normal heart sound and no murmurs GI normal to inspection, nondistended, normoactive bowel sounds, soft to palpation, non-tender and non-distended Extremity normal capillary refill, no clubbing, cyanosis or edema and no calf tenderness Skin General Skin Exam: no breakdown Neuro CN's II-XII intact bilaterally, no focal motor deficits, no sensory deficits noted and deep tendon reflexes 2+ bilaterally Psych thought process normal, cooperative and affect normal Assessment & Plan Assessment/Plan (1) Confusion: (2) Weakness: (3) Acute hyponatremia: PLAN: Plan #Debility and weakness * impoving. * PT/OT on board * fall precautions * #Altered mental status * likely due to hyponatremia. has improved, confusion seems to have resolved * resolved. * #UTI * was being treated for UTI on outpatient basis. completed a course of levaquin. * #HILARIO on CKD 3: Cr is down to 1.37, from 2.19 on admission. Will rend Cr #HYpokalemia:potassium is 3.1 today. will replace and trend. #Hyperension: HCTZ on hold due to hyponatremia. Losatan held due to HILARIO. IV hydralzine prn #CAD s/p CABG: stable. On lipitor #Restless leg syndrome: sable. #GERD: o PPI. On oral iron replacement therapy. DVT prophylaxis: lovenox Disposition: awaiting placement Charges/Coding Visit Charges Inpatient E&M: 67628 Subs Hosp L2
[2022-08-21 15:00] VITALS: BP 97/49; PULSE 74; RESP 16; TEMP 36.9; O2SAT 100
[2022-08-21 18:30] VITALS: BP 101/52; PULSE 88; RESP 16; TEMP 36.9; O2SAT 100
[2022-08-21] MEDS: traZODone 100 MG Tablet PO (20:58)
[2022-08-21] MEDS: Atorvastatin Calcium 10 MG Tablet PO (20:58)
[2022-08-21 21:03] VITALS: BP 97/50; PULSE 75; RESP 18; TEMP 37; O2SAT 100
[2022-08-22 03:04] VITALS: BP 90/60; PULSE 73; RESP 18; TEMP 36.8; O2SAT 99
[2022-08-22 04:59] VITALS: BP 109/62; PULSE 72; RESP 18; TEMP 36.8; O2SAT 99
[2022-08-22] MEDS: Carbidopa/Levodopa 25/100 Tablet PO (05:06)
[2022-08-22 06:26] LABS: Absolute Lymphocyte Count 1.13 X10^3/uL (0.83-4.51); Absolute Neutrophil Count 4.7 X10^3/uL (2.0-7.7); Basophil# 0.03 X10^3/uL; Basophil% 0.5 % (0-1); Eosinophil# 0.25 X10^3/uL; Eosinophils% 3.8 % (0-5); Hematocrit 27.1 % (37-47); Hemoglobin 8.7 g/dL (12.0-15.0); Lymphocyte # 1.13 X10^3/ul (0.83-4.51); Mean Corp Hgb Conc 32.1 g/dL (32-36); Mean Corpuscular Hgb 34.1 pg (27.0-32.0); Mean Corpuscular Volume 106.3 fL (81-99); Mean Platelet Vol. 9.6 fl (6.2-12.0); Monocyte# 0.45 X10^3/uL; Monocyte% 6.8 % (0-10); NRBC Flagged by Analyzer 0 % (0-5); Neutrophil # 4.73 X10^3/uL (2.7-7.7); Neutrophil % 71.1 % (47-70); Platelet Count 165 K/mm3 (150-450); RBC Distribution Width CV 13.2 % (11.6-14.6); Red Blood Count 2.55 M/mm3 (4.2-5.4); White Blood Count 6.6 K/mm3 (4.4-11.0)
[2022-08-22 06:55] LABS: Anion Gap 7 (5-15); BUN 25 mg/dL (7-18); BUN/Creat Ratio 20.5 RATIO (10-20); Calcium,Total 7.9 mg/dL (8.5-10.1); Chloride 113 mmol/L (98-107); Creatinine, Serum 1.22 mg/dL (0.55-1.02); EST Glomerular Filtration Rate 45 mL/min (>60); Est Glom Filt Rate - Afr Amer 55 mL/min (>60); Estimated Creatinine Clearance 29.57 ml/min; Glucose 86 mg/dL (74-106); Magnesium 1.2 mg/dL (1.6-2.6); Potassium 3.6 mmol/L (3.5-5.1); Sodium Level 139 mmol/L (136-145)
[2022-08-22] MEDS: Pantoprazole Sodium 40 MG Tablet PO ×2 (08:26→22:05)
[2022-08-22 10:34] VITALS: BP 101/55; PULSE 73; RESP 16; TEMP 36.8; O2SAT 100
--- NOTE | 2022-08-22 10:52 | PN_ITS ---
Subjective Subjective Patient seen and examined. She had no complaints and had an uneventful night. Review of systems is otherwise negative. Objective Data Objective Data Vital Signs: Vital Signs Temp Pulse Resp BP Pulse Ox O2 Del Method 98.3 F 73 16 101/55 L 100 Room Air 08/22/22 10:34 08/22/22 10:34 08/22/22 10:34 08/22/22 10:34 08/22/22 10:34 08/22/22 10:34 Oxygen Delivery Method Room Air Weight: 123 lb 14.397 oz Body Mass Index (BMI) 22.6 Intake & Output: Intake and Output for Last 24 Hours 08/20/22 08/21/22 08/22/22 23:59 23:59 23:59 Intake Total 4290.00 / 4490.00 2798.33 / 2798.33 Output Total 1150 / 1150 775 / 775 250 / 250 Balance 3140.00 / 3340.00 2023.33 / 2023.33 -250 / -250 Lab / Micro Data Result Diagrams: 08/22/22 05:35 08/22/22 05:35 Labs: Laboratory Results - last 24 hr 08/22/22 05:35: WBC 6.6, RBC 2.55 L, Hgb 8.7 L, Hct 27.1 L, MCV 106.3 H, MCH 34.1 H, MCHC 32.1, RDW Std Deviation 52.0 H, RDW Coeff of Erma 13.2, Plt Count 165, MPV 9.6, Immature Gran % (Auto) 0.800, Neut % (Auto) 71.1 H, Lymph % (Auto) 17.0 L, [place] % (Auto) 6.8, Eos % (Auto) 3.8, Baso % (Auto) 0.5, Absolute Neuts (auto) 4.7, Absolute Lymphs (auto) 1.13, Nucleated RBC % 0 08/22/22 05:35: Sodium 139, Potassium 3.6, Chloride 113 H, Carbon Dioxide 19.0 L , Anion Gap 7, BUN 25 H, Creatinine 1.22 H, Estim Creat Clear Calc 29.57, Est GFR (MDRD) Af Amer 55 L, Est GFR (MDRD) Non-Af 45 L, BUN/Creatinine Ratio 20.5 H , Glucose 86, Calcium 7.9 L, Magnesium 1.2 L Micro: Microbiology 08/19/22 10:54 Blood Culture (Wb) - Anticubital Left Blood Culture - Preliminary No growth in 48 hours. 08/19/22 12:10 Blood Culture (Wb) - Anticubital Left Blood Culture - Preliminary No growth in 48 hours. 08/19/22 11:00 Urine Catheter - Catheter Urine Culture - Final Culture exhibits no growth. 08/19/22 11:55 Stool Stool Occult Blood (KYLE) - Final Physical Exam Const alert, oriented x3 and no apparent distress HEENT normocephalic, head/scalp atraumatic and moist oral mucous membranes Eyes PERRL and EOMs intact bilaterally Neck no lymphadenopathy, supple and no JVD Lymph Lymphatic: no lymphadenopathy noted and no lymphedema noted Resp normal respiratory effort, normal air movement and clear to auscultation bilaterally Cardio regular rate, regular rhythm, S1 normal heart sound, S2 normal heart sound and no murmurs GI normal to inspection, nondistended, normoactive bowel sounds, soft to palpation, non-tender and non-distended Extremity normal capillary refill, no clubbing, cyanosis or edema and no calf tenderness Skin General Skin Exam: no breakdown Neuro CN's II-XII intact bilaterally, no focal motor deficits, no sensory deficits noted and deep tendon reflexes 2+ bilaterally Psych thought process normal, cooperative and affect normal Assessment & Plan Assessment/Plan (1) Confusion: (2) Weakness: (3) Acute hyponatremia: PLAN: Plan #Debility and weakness * impoving. * PT/OT on board * fall precautions * #Altered mental status * likely due to hyponatremia. has improved, confusion seems to have resolved * resolved. * #UTI * was being treated for UTI on outpatient basis. completed a course of levaquin. * #HILARIO on CKD 3: Cr is down to 1.22, from 2.19 on admission. Will rend Cr #HYpokalemia:resolved. K is 3.6 today #Hypertension: HCTZ on hold due to hyponatremia. Losatan held due to HILARIO. IV hydralzine prn. BP running on the low side of normal,so will continue holdiing BP meds #CAD s/p CABG: stable. On lipitor #Restless leg syndrome: sable. #GERD: o PPI. On oral iron replacement therapy. DVT prophylaxis: SCDs Disposition: awaiting placement Charges/Coding Visit Charges Inpatient E&M: 06028 Subs Hosp L2
[2022-08-22] MEDS: Ferrous Sulfate 325 MG Tablet PO (12:12)
[2022-08-22] MEDS: Magnesium Sulfate 4gm/100mL 4 GM/100 ML IV.SOLN. IV (12:27)
[2022-08-22] MEDS: 0.9% Saline Lock 10 ML Syringe IV (12:27)
--- NOTE | 2022-08-22 12:35 | CASEMGMT ---
Social Work SW met with pt to discuss discharge planning. Pt deferred speaking to SW and requested SW speak with dgashli Evans. Phone call to Cristina to discuss discharge planning. Cristina states preferred providers are 1. [facility] 2. [facility]. Referral sent to TCU. Will await determination on acceptance. Plan: TCU, pending acceptance TERRY Contreras
--- NOTE | 2022-08-22 12:46 | CHAPLAIN ---
Type of Pastoral Visit _x__ Initial Visit ___ Follow-up Visit ___ On-call Visit ___ General Patient Visit ___ Spiritual Assessment ___ Family Conference ___ Bereavement ___ Rapid Response ___ Code Blue ___ Other (describe below) Pastoral Care Referral From _x__ Patient ___ Family ___ Nurse ___ Physician ___ Non Ferrous Material Handler ___ Insurance Application Investigator ___ Other (describe below) Sacrament/Intervention ___ Active listening ___ Anointing ___ Congregational ___ Bereavement ___ Communion ___ Bailee exploration ___ ___ Life review _x__ Prayer ___ Reconciliation ___ Sacrament of Sick _x__ Supportive presence ___ Wedding ___ Other (describe below) Pastoral Comments patient responded to all questions but did not appear able to keep her eyes open during the visit; pt welcomes presence and prayer but did not engage in conversation beyond answering questions; pt stated that she was fine and feeling some better today
--- NOTE | 2022-08-22 16:08 | CASEMGMT ---
Social Work TCU is able to accept but will not have a bed available until . Per physician pt will be ready for discharge on Monday. Pt's dgt states second choice is [facility]. Referral made to [facility] and they are able to accept pt on Monday. Phone call to pt dgt and updated and she is agreeable would like to transport pt if able. Plan: [facility], when medically ready TERRY Contreras
[2022-08-22 16:30] VITALS: BP 108/57; PULSE 69; RESP 18; TEMP 36.9; O2SAT 100
[2022-08-22] MEDS: traZODone 100 MG Tablet PO (22:05)
[2022-08-22] MEDS: Atorvastatin Calcium 10 MG Tablet PO (22:05)
[2022-08-22 22:06] VITALS: BP 113/49; PULSE 66; RESP 15; TEMP 36.7; O2SAT 99
[2022-08-23 03:40] VITALS: BP 110/59; PULSE 71; RESP 16; TEMP 36.8; O2SAT 99
[2022-08-23] MEDS: Carbidopa/Levodopa 25/100 Tablet PO (05:25)
[2022-08-23 06:26] LABS: Absolute Neutrophil Count 5.2 X10^3/uL (2.0-7.7); Basophil# 0.03 X10^3/uL; Basophil% 0.4 % (0-1); Eosinophil# 0.26 X10^3/uL; Eosinophils% 3.7 % (0-5); Hematocrit 27.6 % (37-47); Hemoglobin 8.9 g/dL (12.0-15.0); Lymphocyte % 15.5 % (19-41); Mean Corp Hgb Conc 32.2 g/dL (32-36); Mean Corpuscular Volume 105.3 fL (81-99); Mean Platelet Vol. 9.6 fl (6.2-12.0); Monocyte# 0.45 X10^3/uL; Monocyte% 6.3 % (0-10); NRBC Flagged by Analyzer 0 % (0-5); Neutrophil # 5.23 X10^3/uL (2.7-7.7); Neutrophil % 73.5 % (47-70); Platelet Count 170 K/mm3 (150-450); RBC Distribution Width CV 13.2 % (11.6-14.6); RBC Distribution Width SD 51.6 fl (35.1-43.9); Red Blood Count 2.62 M/mm3 (4.2-5.4); White Blood Count 7.1 K/mm3 (4.4-11.0)
[2022-08-23 06:46] LABS: Anion Gap 6 (5-15); BUN 22 mg/dL (7-18); BUN/Creat Ratio 20.4 RATIO (10-20); Calcium,Total 7.7 mg/dL (8.5-10.1); Chloride 115 mmol/L (98-107); Creatinine, Serum 1.08 mg/dL (0.55-1.02); EST Glomerular Filtration Rate 52 mL/min (>60); Est Glom Filt Rate - Afr Amer 63 mL/min (>60); Estimated Creatinine Clearance 33.41 ml/min; Glucose 87 mg/dL (74-106); Potassium 3.5 mmol/L (3.5-5.1); Sodium Level 140 mmol/L (136-145)
[2022-08-23 08:21] LABS: Magnesium 2.3 mg/dL (1.6-2.6)
--- NOTE | 2022-08-23 09:02 | TREXTCAR_ITS ---
Diet Diet Order/Speech Therapy: 08/19/22 16:11 Diet: Regular - General Food consistency:: Regular Liquid Consistency:: Regular/Thin Routine Orders/Code Status Enema Type: Fleetz Enema Frequency: Daily PRN Suppository Type: Dulcolax 10mg Suppository Frequency: Daily PRN O2 Frequency: PRN Keep PO Greater than or Equal to (%): 90 Therapies Weight Bearing: Weight bearing as tolerated Physical Therapy: Eval and Treat Occupational Therapy: Eval and Treat Problem/Diagnosis (1) Confusion: Status: Acute Code(s): R41.0 - Disorientation, unspecified (2) Weakness: Status: Acute Code(s): R53.1 - Weakness (3) Acute hyponatremia: Status: Acute Code(s): E87.1 - Hypo-osmolality and hyponatremia Plan #Debility and weakness * impoving. * PT/OT on board * fall precautions * #Altered mental status * likely due to hyponatremia. has improved, confusion seems to have resolved * resolved. * #UTI * was being treated for UTI on outpatient basis. completed a course of levaquin. * #HILARIO on CKD 3: Cr is down to 1.22, from 2.19 on admission. Will rend Cr #HYpokalemia:resolved. K is 3.6 today #Hypertension: HCTZ on hold due to hyponatremia. Losatan held due to HILARIO. IV hydralzine prn. BP running on the low side of normal,so will continue holdiing BP meds #CAD s/p CABG: stable. On lipitor #Restless leg syndrome: sable. #GERD: o PPI. On oral iron replacement therapy. DVT prophylaxis: SCDs Disposition: awaiting placement Allergies/Procedures Done in Hospital Allergies amoxicillin Allergy (Verified 08/12/22 17:54) Itching Penicillins Allergy (Verified 08/12/22 17:54) Itching Procedures: None Type of Care/Length of Stay Estimated LOS: Convalescent Care Less Than 30 days Type of Care Needed: Skilled Rehab Potential: Fair Prognosis: Fair Additional Orders/Day of Discharge Day of Discharge: 08/23/22 Dietary and Speech Recommendations Dietitian Recommendations/Changes: Continue regular diet and offer ONS as needed if intake fails at meals. Discharge Plan Admission Admit Date/Time: 08/19/22 16:11 Primary Reason for Your Visit: debility and weakness Attending Provider: Ashley Andrade Primary Care Provider: Vianca Baca Consulting Providers: Prabhakar Kimball Instructions Patient Instructions: ED Cystitis Female Adult, ED Weakness (Uncertain Cause) Discharge Orders/Prescriptions Prescriptions: Continued carbidopa-levodopa 1 EACH tablet 1 tab PO BID pantoprazole 40 MG tablet 40 mg PO BID potassium chloride 20 MEQ tablet 10 meq PO DAILY atorvastatin 10 mg tablet 10 mg PO QHS copper gluconate 2 mg Tablet 4 mg PO DAILY cholecalciferol (vitamin D3) [Vitamin D3] 50 mcg (2,000 unit) Tablet 50 mcg PO DAILY losartan-hydrochlorothiazide 50-12.5 mg tablet 1 tab PO DAILY Myrbetriq 50 mg tablet extended release 24 hr 50 mg PO BID Label Comments: TAKE 2 TABLETS BY MOUTH ONCE DAILY trazodone 100 mg Tablet 100 mg PO QHS ferrous sulfate 325 MG tablet 325 mg PO DAILY Discontinued doxycycline hyclate [Vibramycin] 100 mg Capsule 100 mg PO BID levofloxacin 750 mg tablet 750 mg PO DAILY Referrals / Follow Up: Vianca Baca MD [Primary Care Provider] - Within 2 Weeks Disposition Disposition (needs filled in before D/C Order can be placed): Group Home Facility
--- NOTE | 2022-08-23 09:02 | DS.PCM_ITS ---
Providers Date of Admission: 08/19/22 Date of Discharge: 08/23/22 Primary Care Physician: Dr. Vianca Baca MD Reason For Visit: WEAKNESS AND DEBILITY Diagnosis Discharge Diagnosis (1) Confusion: Status: Acute Code(s): R41.0 - Disorientation, unspecified (2) Weakness: Status: Acute Code(s): R53.1 - Weakness (3) Acute hyponatremia: Status: Acute Code(s): E87.1 - Hypo-osmolality and hyponatremia Plan #Debility and weakness * impoving. * PT/OT on board * fall precautions * #Altered mental status * likely due to hyponatremia. has improved, confusion seems to have resolved * resolved. * #UTI * was being treated for UTI on outpatient basis. completed a course of levaquin. * #HILARIO on CKD 3: Cr is down to 1.22, from 2.19 on admission. Will rend Cr #HYpokalemia:resolved. K is 3.6 today #Hypertension: HCTZ on hold due to hyponatremia. Losatan held due to HILARIO. IV hydralzine prn. BP running on the low side of normal,so will continue holdiing BP meds #CAD s/p CABG: stable. On lipitor #Restless leg syndrome: sable. #GERD: o PPI. On oral iron replacement therapy. DVT prophylaxis: SCDs Disposition: awaiting placement Medications at Discharge Home Medications carbidopa 25 mg-levodopa 100 mg tablet 1 tab PO BID restless legs 11/29/18 pantoprazole 40 mg tablet,delayed release 40 mg PO BID gerd 03/01/19 potassium chloride 20 mEq tablet,extended release(part/cryst) 10 meq PO DAILY supplement 03/28/19 atorvastatin 10 mg tablet 10 mg PO QHS cholesterol 05/01/21 cholecalciferol (vitamin D3) 50 mcg (2,000 unit) tablet (Vitamin D3) 50 mcg PO DAILY supplement 05/01/21 copper gluconate 2 mg tablet 4 mg PO DAILY supplement 05/01/21 mirabegron 50 mg tablet,extended release 24 hr (Myrbetriq) 50 mg PO BID 05/30/22 trazodone 100 mg tablet 100 mg PO QHS 05/30/22 ferrous sulfate 325 mg (65 mg iron) tablet 325 mg PO DAILY anemia 08/19/22 losartan 25 mg tablet 25 mg PO DAILY #30 tabs 08/23/22 Hospital Course Operations None Procedures None Summary of Care Provided Minutes Spent on Discharge: 47 Hospital Course: Patient is a 77-year-old female with a past medical history as outlined was admitted through the ED on 08/19/2022 with a complaint of altered mental status and weakness. Family had found her sitting naked in the chair with difficulty getting up on her own and needing significant assistance by family members. She did not know what year it was and no know where she was and could not see where she was naked. Per family, patient had been progressively getting forgetful over several months prior to admission and they were looking into getting her into assisted living facility. She had recently been diagnosed with UTI in the ED. she had been prescribed Macrobid but this was subsequently changed to Levaquin based on sensitivities. She had been supposed to be taking it every 48 hours but had been taking it daily. On admission she was found to be hyponatremic with sodium of 127 and potassium was also low at 3.1. Creatinine was 2.19. She was admitted and managed for debility with altered mental status. PT OT was consulted. Her hydrochlorothiazide was held due to hyponatremia. Potassium was replaced. She was also hydrated with fluids on account of elevated creatinine. She was placed back on the Levaquin and was given 1 more dose to complete the 5-day course. She worked with physical therapy and felt better. [facility]. Her hydrochlorothiazide was discontinued and her losartan was cut down to 25 mg daily. She is to follow-up with her primary care doctor within 1 to 2 weeks. I did have an extensive discussion with patient's daughter who said as far as she knew her mother did not have a known diagnosis of Parkinson's disease and was on the levodopa carbidopa for restless leg syndrome. She however said her mother had been getting more forgetful for several months now. I counseled daughter to follow-up with primary care doctor for patient to be evaluated for probable dementia and also to confirm that the Sinemet was only for restless leg syndrome as it was usually the first-line of medication use for restless leg syndrome. I am wondering if patient may have had an element of parkinsonism and was started on it as well but this would need to be clarified with her primary care doctor. Daughter expressed understanding. Patient seen and examined prior to discharge. She felt well and had no active complaints. Review of systems otherwise negative. Labs and vitals reviewed. Home medications reviewed and reconciled. Physical Exam Const alert, oriented x3 and no apparent distress General Appearance: cooperative, comfortable and well kempt Orientation / Consciousness: awake Exam Limitations: no limitations HEENT normocephalic, head/scalp atraumatic, hearing grossly normal bilaterally and moist oral mucous membranes Mouth: oral and palatal mucosa normal Eyes PERRL, EOMs intact bilaterally and conjunctivae normal Neck no lymphadenopathy, supple and no JVD Lymph Lymphatic: no lymphadenopathy noted and no lymphedema noted Resp normal respiratory effort, normal air movement, no retractions, no use of accessory muscles and clear to auscultation bilaterally Cardio regular rate, regular rhythm, S1 normal heart sound, S2 normal heart sound and no murmurs GI normal to inspection, nondistended, normoactive bowel sounds, soft to palpation, non-tender and non-distended Extremity normal to inspection, full ROM, normal capillary refill, no clubbing, cyanosis or edema and no calf tenderness Skin no rashes or lesions noted General Skin Exam: no breakdown Neuro oriented x3, CN's II-XII intact bilaterally, moves all extremities, no focal motor deficits, no sensory deficits noted and deep tendon reflexes 2+ bilaterally Sensorium / Orientation: awake and alert Motor Exam: strength 5/5 throughout Psych thought process normal, cooperative and affect normal Weight / BMI Weight Weight: 123 lb 14.397 oz Body Mass Index (BMI) 22.6 ABG / Lab / Microbiology Data Result Diagrams: 08/23/22 05:37 08/23/22 05:37 Laboratory: Laboratory Results - last 24 hr 08/23/22 05:37: WBC 7.1, RBC 2.62 L, Hgb 8.9 L, Hct 27.6 L, MCV 105.3 H, MCH 34.0 H, MCHC 32.2, RDW Std Deviation 51.6 H, RDW Coeff of Erma 13.2, Plt Count 170, MPV 9.6, Immature Gran % (Auto) 0.600, Neut % (Auto) 73.5 H, Lymph % (Auto) 15.5 L, [place] % (Auto) 6.3, Eos % (Auto) 3.7, Baso % (Auto) 0.4, Absolute Neuts (auto) 5.2, Absolute Lymphs (auto) 1.10, Nucleated RBC % 0 08/23/22 05:37: Sodium 140, Potassium 3.5, Chloride 115 H, Carbon Dioxide 19.0 L , Anion Gap 6, BUN 22 H, Creatinine 1.08 H, Estim Creat Clear Calc 33.41, Est GFR (MDRD) Af Amer 63, Est GFR (MDRD) Non-Af 52 L, BUN/Creatinine Ratio 20.4 H, Glucose 87, Calcium 7.7 L 08/23/22 05:37: Magnesium 2.3 Microbiology: Microbiology 08/19/22 10:54 Blood Culture (Wb) - Anticubital Left Blood Culture - Pre liminary No growth in 48 hours. 08/19/22 12:10 Blood Culture (Wb) - Anticubital Left Blood Culture - Preliminary No growth in 48 hours. 08/19/22 11:00 Urine Catheter - Catheter Urine Culture - Final Culture exhibits no growth. 08/19/22 11:55 Stool Stool Occult Blood (KYLE) - Final D/C Instructions Discharge Diet: Low fat / Low cholesterol Discharge Activity: Return to Normal Activity Weight Bearing Status: Weight bearing as tolerated Call your doctor if you observe: Fever of 101 or Higher, Shortness of breath, Swelling in the ankles and Increased palpitations (irregular heartbeat) Meaningful Use Info Meaningful Use Diagnoses (Choose all that apply): None applicable Discharge Plan Admission Admit Date/Time: 08/19/22 16:11 Primary Reason for Your Visit: debility and weakness Attending Provider: Ashley Andrade Primary Care Provider: Vianca Baca Consulting Providers: Prabhakar Kimball Instructions Patient Instructions: ED Cystitis Female Adult, ED Weakness (Uncertain Cause) Discharge Orders/Prescriptions Prescriptions: New losartan 25 mg tablet 25 mg PO DAILY Qty: 30 1RF Continued carbidopa-levodopa 1 EACH tablet 1 tab PO BID pantoprazole 40 MG tablet 40 mg PO BID potassium chloride 20 MEQ tablet 10 meq PO DAILY atorvastatin 10 mg tablet 10 mg PO QHS copper gluconate 2 mg Tablet 4 mg PO DAILY cholecalciferol (vitamin D3) [Vitamin D3] 50 mcg (2,000 unit) Tablet 50 mcg PO DAILY Myrbetriq 50 mg tablet extended release 24 hr 50 mg PO BID Label Comments: TAKE 2 TABLETS BY MOUTH ONCE DAILY trazodone 100 mg Tablet 100 mg PO QHS ferrous sulfate 325 MG tablet 325 mg PO DAILY Discontinued doxycycline hyclate [Vibramycin] 100 mg Capsule 100 mg PO BID losartan-hydrochlorothiazide 50-12.5 mg tablet 1 tab PO DAILY levofloxacin 750 mg tablet 750 mg PO DAILY Referrals / Follow Up: Vianca Baca MD [Primary Care Provider] - Within 2 Weeks Disposition Disposition (needs filled in before D/C Order can be placed): Assisted Facility Charges/Coding Visit Charges Inpatient E&M: 45311 Disch Hosp >30min
[2022-08-23] MEDS: Pantoprazole Sodium 40 MG Tablet PO (09:14)
--- NOTE | 2022-08-23 09:32 | CASEMGMT ---
Patient is ready for discharge to [facility]. MARYBEL completed a 7000 in [place]. MARYBEL sent orders via [employer]. MARYBEL met with patient and confirmed she is aware of d/c to [facility] today and her daughter will transport. MARYBEL called patient's daughter Cristina and let her know patient is ready for discharge whenever she is ready she can come pick her up. Cristina works in [place] and is working half a day today. She will be in around noon today to get patient. Cristina wants to speak with the physician. MARYBEL sent a message via [employer] notifying the physician. Plan: d/c to [facility] under skilled level of care on a 7000. Patient's daughter will transport. Tamara Montaño EMOTIONAL DISABILITIES TEACHER JACOBO
[2022-08-23 09:40] VITALS: BP 104/67; PULSE 88; RESP 18; TEMP 36.7; O2SAT 100
--- NOTE | 2022-08-23 09:45 | PHA.DC.MR ---
Addendum entered and electronically signed by Gaviota Henriquez 08/23/22 11:10: Home Medications carbidopa 25 mg-levodopa 100 mg tablet 1 tab PO BID restless legs 11/29/18 pantoprazole 40 mg tablet,delayed release 40 mg PO BID gerd 03/01/19 potassium chloride 20 mEq tablet,extended release(part/cryst) 10 meq PO DAILY supplement 03/28/19 atorvastatin 10 mg tablet 10 mg PO QHS cholesterol 05/01/21 cholecalciferol (vitamin D3) 50 mcg (2,000 unit) tablet (Vitamin D3) 50 mcg PO DAILY supplement 05/01/21 copper gluconate 2 mg tablet 4 mg PO DAILY supplement 05/01/21 mirabegron 50 mg tablet,extended release 24 hr (Myrbetriq) 50 mg PO BID 05/30/22 trazodone 100 mg tablet 100 mg PO QHS 05/30/22 ferrous sulfate 325 mg (65 mg iron) tablet 325 mg PO DAILY anemia 08/19/22 losartan 25 mg tablet 25 mg PO DAILY #30 tabs 08/23/22 Med list changed, losartan/HCTZ d/c'ed and changed to only losartan. Meds reviewed. Original Note: Pharmacy Service has performed discharge medication reconciliation for this patient. The patient's discharge medication list was reviewed for discrepancies and discrepancies were resolved. Home Medications carbidopa 25 mg-levodopa 100 mg tablet 1 tab PO BID restless legs 11/29/18 pantoprazole 40 mg tablet,delayed release 40 mg PO BID gerd 03/01/19 potassium chloride 20 mEq tablet,extended release(part/cryst) 10 meq PO DAILY supplement 03/28/19 atorvastatin 10 mg tablet 10 mg PO QHS cholesterol 05/01/21 cholecalciferol (vitamin D3) 50 mcg (2,000 unit) tablet (Vitamin D3) 50 mcg PO DAILY supplement 05/01/21 copper gluconate 2 mg tablet 4 mg PO DAILY supplement 05/01/21 losartan 50 mg-hydrochlorothiazide 12.5 mg tablet 1 tab PO DAILY . 05/30/22 mirabegron 50 mg tablet,extended release 24 hr (Myrbetriq) 50 mg PO BID 05/30/22 trazodone 100 mg tablet 100 mg PO QHS 05/30/22 ferrous sulfate 325 mg (65 mg iron) tablet 325 mg PO DAILY anemia 08/19/22
--- NOTE | 2022-08-23 10:01 | NURSING ---
Report called to KAYLIN Costello at [facility]. Updated on when patients daughter would be here to transport patient.
[2022-08-23] MEDS: Ferrous Sulfate 325 MG Tablet PO (11:07)
== END 2022-08-23 13:07 | disposition skilled nursing facility (03) | DRG 641 ==
LOC: ED 13:11 → PCU 13:39
PROVIDERS: Admitting Provider Family Medicine; Emergency Provider Emergency Medicine; PCP Internal Medicine; Visit Provider Student in an Organized Health Care Education/Training Program
DX: E87.1 Hypo-osmolality and hyponatremia (principal); N17.9 Acute kidney failure, unspecified; N39.0 Urinary tract infection, site not specified; N18.30 Chronic kidney disease, stage 3 unspecified; F03.90 Unspecified dementia, unspecified severity, without behavioral disturbance, psychotic disturbance, mood disturbance, and anxiety; I25.10 Atherosclerotic heart disease of native coronary artery without angina pectoris; G25.81 Restless legs syndrome; K21.9 Gastro-esophageal reflux disease without esophagitis; E87.6 Hypokalemia; E78.5 Hyperlipidemia, unspecified; D50.9 Iron deficiency anemia, unspecified; I12.9 Hypertensive chronic kidney disease with stage 1 through stage 4 chronic kidney disease, or unspecified chronic kidney disease; Z95.1 Presence of aortocoronary bypass graft
CPT/HCPCS: 36415; 70450; 71045; 73030; 80048; 81001; 82274; 83605; 83735; 84100; 85025; 87040; 87086; 97110; 97116; 97162; 97166; 97530; 97535; 99285; J7030; J7040; A4216

== ENCOUNTER → 2022-08-30 | Outpatient (REF) | payer MEDICARE, OTHER, SELFPAY ==
[2022-08-30 08:38] LABS: Hematocrit 28.7 % (37-47); Hemoglobin 8.8 g/dL (12.0-15.0); Mean Corp Hgb Conc 30.7 g/dL (32-36); Mean Corpuscular Hgb 33.1 pg (27.0-32.0); Mean Corpuscular Volume 107.9 fL (81-99); Platelet Count 235 K/mm3 (150-450); RBC Distribution Width CV 12.9 % (11.6-14.6); RBC Distribution Width SD 51.6 fl (35.1-43.9); Red Blood Count 2.66 M/mm3 (4.2-5.4)
[2022-08-30 08:59] LABS: Albumin, Serum 2.3 g/dL (3.2-5.0); Anion Gap 4 (5-15); BUN 26 mg/dL (7-18); BUN/Creat Ratio 22.8 RATIO (10-20); Calcium,Total 8.1 mg/dL (8.5-10.1); Chloride 113 mmol/L (98-107); Creatinine, Serum 1.14 mg/dL (0.55-1.02); EST Glomerular Filtration Rate 49 mL/min (>60); Est Glom Filt Rate - Afr Amer 59 mL/min (>60); Glucose 90 mg/dL (74-106); Potassium 4.3 mmol/L (3.5-5.1); Sodium Level 138 mmol/L (136-145)
== END ==
LOC: OLS.SW 05:00
PROVIDERS: PCP Internal Medicine; Visit Provider Internal Medicine
DX: N18.32 Chronic kidney disease, stage 3b (principal); D50.9 Iron deficiency anemia, unspecified
CPT/HCPCS: 36415; 80048; 82040; 85027

== ENCOUNTER 2022-09-12 04:24 | Emergency (ER) | payer MEDICARE, OTHER, SELFPAY ==
[2022-09-12 04:25] VITALS: BP 113/52; PULSE 67; RESP 16; TEMP 36.2; O2SAT 98; BMI 26.9
--- NOTE | 2022-09-12 04:59 | CT_ITS ---
INDICATION: fall/trauma EXAMINATION: CT BRAIN - CT Head or Brain W/O Contrast Injection TECHNIQUE: Serial CT axial images were obtained of the head without intravenous contrast. A radiation dose optimization technique was used for this scan. COMPARISON: 08/19/[address] Findings: Serial CT axial images of the head without contrast. BRAIN PARENCHYMA: Diffuse periventricular hypoattenuation likely chronic white matter ischemic changes. Moderate diffuse volume loss. No evidence of intraparenchymal hemorrhage or hyperattenuating extra-axial fluid collection. VASCULAR STRUCTURES: Atherosclerotic vascular calcifications. BONES: Paranasal sinuses are clear. SCALP/REMAINING SOFT TISSUES: Vertex scalp hematoma. Posterior scalp skin curtis. ASPECTS Score for Acute Strokes, if applicable: 10 CT/Brain/Head without Contrast IMPRESSION: Age-related changes as above, without evidence of acute intracranial hemorrhage in this noncontrast head CT. Scalp injury. Electronically Signed: Hiram Leigh MD at 5:46 EDT ,
--- NOTE | 2022-09-12 04:59 | ED.VIS.FALL ---
HPI HPI - Fall History of Present Illness Chief Complaint: Fall Informant: patient Occured/Mechanism Occurred: Today Narrative: Accidentally fell out of bed while sleeping Pain/Injury Pain Location: head Quality of Pain: - (sore posterior scalp) Current Severity: Mild Maximum Severity: Moderate Associated Symptoms Associated Symptoms: Negative for Parasthesias, Weakness, Inability to ambulate or Amnesia Narrative Narrative: Patient sent from local long term facility for scalp laceration that she sustained after accidentally apparently rolling out of bed. She had some barrettes in her hair, nursing took them out they may have been related to the laceration, or she had a rolling bedside table that caused them, unclear. She is on no anticoagulants. She is a little bit of soreness in her right shoulder. She denies a headache, vomiting, focal neurologic symptoms or other injury. [facility] Medical History Anxiety CAD (coronary artery disease) Depression Dyspnea GERD (gastroesophageal reflux disease) GI bleed HTN (hypertension) Hyperlipidemia Iron deficiency anemia Irregular heart beat Kidney stones Osteoarthritis Pacemaker Parkinson disease Post-menopausal Restless legs Rheumatoid arthritis Home Medications carbidopa 25 mg-levodopa 100 mg tablet 1 tab PO BID restless legs 11/29/18 [History Last Taken 05/01/21] pantoprazole 40 mg tablet,delayed release 40 mg PO BID gerd 03/01/19 [History Last Taken 05/01/21] potassium chloride 20 mEq tablet,extended release(part/cryst) 10 meq PO DAILY supplement 03/28/19 [History Last Taken Unknown] atorvastatin 10 mg tablet 10 mg PO QHS cholesterol 05/01/21 [History Last Taken Unknown] cholecalciferol (vitamin D3) 50 mcg (2,000 unit) tablet (Vitamin D3) 50 mcg PO DAILY supplement 05/01/21 [History Last Taken Unknown] copper gluconate 2 mg tablet 4 mg PO DAILY supplement 05/01/21 [History Last Taken Unknown] trazodone 100 mg tablet 100 mg PO QHS 05/30/22 [History Last Taken Unknown] ferrous sulfate 325 mg (65 mg iron) tablet 325 mg PO DAILY anemia 08/19/22 [History Last Taken Unknown] losartan 25 mg tablet 25 mg PO DAILY #30 tabs 08/23/22 [Rx Last Taken Unknown] furosemide 40 mg tablet (Lasix) 40 mg PO DAILY 09/12/22 [History Last Taken Unknown] multivitamin 1 tab PO DAILY 09/12/22 [History Last Taken Unknown] oxybutynin chloride 5 mg tablet 10 mg PO DAILY 09/12/22 [History Last Taken Unknown] Allergy/AdvReac Type Severity Reaction Status Date / Time amoxicillin Allergy Itching Verified 09/12/22 04:28 Penicillins Allergy Itching Verified 09/12/22 04:28 Family History Other Diabetes Hypertension Surgical History History of total knee replacement (TKR) Hx of CABG S/P hysterectomy Social History household members: none housing: house Smoking Status: Never smoker substance use type: does not use ROS ROS ED Constitutional Constitutional ED: Denies chills or fever(s) Eyes Eyes: Denies change in vision or diplopia ENT ENT ED: Denies ear pain, epistaxis, facial pain or rhinorrhea Cardiovascular Cardiovascular: Denies chest pain or palpitations Respiratory/Chest Respiratory/Chest: Denies cough or dyspnea Gastrointestinal Gastrointestinal: Denies abdominal pain, diarrhea, melena, nausea or vomiting Genitourinary Genitourinary ED: Denies dysuria or hematuria Musculoskeletal Musculoskeletal: Denies back pain, extremity pain or neck pain Integumentary Reports laceration; Denies abscess, Abrasions or rash Neurologic Neurologic: Denies confusion, headache(s), paresthesias or weakness EXAM Physical Exam Const Vital Signs: 09/12/22 04:25 09/12/22 04:29 09/12/22 06:33 Temperature 97.1 F L Temperature Source Temporal Pulse Rate 67 70 Respiratory Rate 16 16 Respiratory Effort Normal Respiratory Depth Normal Respiratory Pattern Normal Blood Pressure 113/52 L 137/53 H Blood Pressure Mean 72 Pulse Ox 98 99 Oxygen Delivery Method Room Air Room Air Positive well nourished and well developed General Appearance ED: well developed and NAD HEENT Reports nasal mucous membranes and turbinates normal HEENT Narrative: Occipital scalp laceration x2 with associated boggy hematoma, no crepitance or depression. Mildly tender at lacerations only. No other signs of HEENT trauma. trauma and hematoma Face and Sinus: Negative for facial tenderness Eyes PERRL and EOMs intact bilaterally Visual Acuity: other Other Details: no entrapment or pain with extraocular movements Neck full ROM and supple General: Negative for tenderness Chest Wall inspection of chest normal and palpation of chest normal Chest: symmetrical chest wall rise; Negative for crepitus or tenderness Resp normal respiratory effort and clear to auscultation bilaterally Percussion: other equal BS bilat Cardio Rate: regular rate Rhythm: regular rhythm GI normal to inspection, nondistended, normoactive bowel sounds, soft to palpation and non-tender Back/Spine normal ROM Cervical Spine: Negative for cervical spine tenderness Thoracic Spine / Upper Back: Negative for pain with ROM or thoracic spinal tenderness Lumbar Spine / Lower Back: Negative for lumbar spinal tenderness Extremity normal to inspection and full ROM Extremity Narrative: Full abduction of the right shoulder without pain, no clavicle, acromioclavicular joint, or proximal humerus tenderness, swelling, or sign of injury. Full range of motion of all other joints of all 4 extremities without any pain or tenderness. General Extremety ED: Negative for tenderness Neuro oriented x3, CN's II-XII intact bilaterally, moves all extremities, no focal motor deficits and no sensory deficits noted Sean Coma Scale: document GCS findings Spontaneous Obeys Commands Oriented 15 Sensorium / Orientation: awake and alert Psych mental status grossly normal and thought process normal Skin Skin Narrative: 2 separate but nearby lacerations on occipital scalp: 2 cm laceration full-thickness down to but not involving the galea, and another 0.5 cm full-thickness laceration just to the right of this involving the skin only as well. Both are clean and linear without contamination or significant active bleeding. Lesions: no lesions Rashes: no rashes MDM MDM MDM Narrative Medical decision making narrative: Since patient has a fairly decent traumatic boggy hematoma occipitally, she was sent for brain imaging. I reviewed the CT images, they do not appear to show any fracture or intracranial hemorrhage, radiology was in agreement and I agree with their interpretation. Patient's wounds were repaired see the procedure note. They appear to be clean. With regards to the right shoulder she is moving it fully without any difficulty, I do not think she needs any x-rays there. No other injuries, patient discharged back to retirement, with appropriate instructions for removal. Radiography Diagnostic Testing: Clinical Impression(s) from Imaging Studies Brain CT 09/12/22 04:59 IMPRESSION: Age-related changes as above, without evidence of acute intracranial hemorrhage in this noncontrast head CT. Scalp injury. Electronically Signed: Hiram Leigh MD at 5:46 EDT , Procedures Lacerations occipital scalp #1: Length: 2 cm Depth: Sub Q Shape: Linear Prep: Sterile Conditions and Chlorhexadine Laceration repair: Irrigated, Lidocaine with epi (1%, 1cc), Local and - (skin carlos manuel) Irrigated (ml): 60 Number of Sutures/Benton: 2 occipital scalp #2: Length: 0.5 cm Depth: Sub Q Shape: Linear Prep: Sterile Conditions and Chlorhexadine Laceration repair: Irrigated, Lidocaine with epi (1%, 0.5cc), Local and - (skin staple) Irrigated (ml): 60 Number of Sutures/Carlos Manuel: 1 Discharge Plan Triage Chief Complaint: Fall ED Provider: Mark Cosme Dx/Rx/DC Orders Clinical Impression: Laceration of scalp, Closed head injury without loss of consciousness, Accidental fall from bed Instructions: ED Laceration Scalp Stitches or Carlos Manuel Prescriptions: No Action carbidopa-levodopa 1 EACH tablet 1 tab PO BID Rx Instructions: 25/100 pantoprazole 40 MG tablet 40 mg PO BID potassium chloride 20 MEQ tablet 10 meq PO DAILY atorvastatin 10 mg tablet 10 mg PO QHS copper gluconate 2 mg Tablet 4 mg PO DAILY cholecalciferol (vitamin D3) [Vitamin D3] 50 mcg (2,000 unit) Tablet 50 mcg PO DAILY trazodone 100 mg Tablet 100 mg PO QHS ferrous sulfate 325 MG tablet 325 mg PO DAILY losartan 25 mg tablet 25 mg PO DAILY Qty: 30 1RF multivitamin Tablet 1 tab PO DAILY furosemide [Lasix] 40 mg Tablet 40 mg PO DAILY oxybutynin chloride 5 mg tablet 10 mg PO DAILY Primary Care Provider: Ca Silva Referrals: Ca Silva MD [Primary Care Provider] - 5 Days for suture removal (#3 carlos manuel) Disposition Disposition: Correction Facility Discharge Location: [facility] Discharge Date/Time: 09/12/22 06:45
[2022-09-12 06:33] VITALS: BP 137/53; PULSE 70; RESP 16; O2SAT 99
== END 2022-09-12 06:45 | disposition skilled nursing facility (03) ==
PROVIDERS: Emergency Provider Emergency Medicine; PCP Internal Medicine; Visit Provider Emergency Medicine
DX: S01.01XA Laceration without foreign body of scalp, initial encounter (principal); I25.10 Atherosclerotic heart disease of native coronary artery without angina pectoris; E78.5 Hyperlipidemia, unspecified; I10 Essential (primary) hypertension; S09.90XA Unspecified injury of head, initial encounter; W06.XXXA Fall from bed, initial encounter; Y93.84 Activity, sleeping; G25.81 Restless legs syndrome; Z79.899 Other long term (current) drug therapy; K21.9 Gastro-esophageal reflux disease without esophagitis; F32.A Depression, unspecified; Z96.659 Presence of unspecified artificial knee joint
CPT/HCPCS: 12001; 70450; 99284

== ENCOUNTER → 2022-11-30 07:50 | Outpatient (REF) | payer MEDICARE, OTHER, SELFPAY ==
[2022-11-30 11:03] LABS: Absolute Lymphocyte Count 1.06 X10^3/uL (0.83-4.51); Absolute Neutrophil Count 2.8 X10^3/uL (2.0-7.7); Basophil# 0.03 X10^3/uL; Basophil% 0.7 % (0-1); Eosinophil# 0.28 X10^3/uL; Eosinophils% 6.2 % (0-5); Hemoglobin 11.1 g/dL (12.0-15.0); Lymphocyte # 1.06 X10^3/ul (0.83-4.51); Lymphocyte % 23.5 % (19-41); Mean Corp Hgb Conc 31.7 g/dL (32-36); Mean Corpuscular Hgb 33.1 pg (27.0-32.0); Mean Corpuscular Volume 104.5 fL (81-99); Mean Platelet Vol. 10.8 fl (6.2-12.0); Monocyte# 0.37 X10^3/uL; Monocyte% 8.2 % (0-10); NRBC Flagged by Analyzer 0 % (0-5); Neutrophil # 2.76 X10^3/uL (2.7-7.7); Platelet Count 155 K/mm3 (150-450); RBC Distribution Width CV 11.9 % (11.6-14.6); Red Blood Count 3.35 M/mm3 (4.2-5.4); White Blood Count 4.5 K/mm3 (4.4-11.0)
[2022-11-30 11:20] LABS: Anion Gap 3 (5-15); BUN 44 mg/dL (7-18); Calcium,Total 8.7 mg/dL (8.5-10.1); Chloride 112 mmol/L (98-107); Creatinine, Serum 1.42 mg/dL (0.55-1.02); EST Glomerular Filtration Rate 38 mL/min (>60); Est Glom Filt Rate - Afr Amer 46 mL/min (>60); Glucose 93 mg/dL (74-106); Potassium 4.5 mmol/L (3.5-5.1); Sodium Level 140 mmol/L (136-145)
== END ==
LOC: OLS.SW 07:50
PROVIDERS: PCP Internal Medicine; Visit Provider Internal Medicine
DX: N18.32 Chronic kidney disease, stage 3b (principal)
CPT/HCPCS: 36415; 80048; 85025

== ENCOUNTER → 2023-02-20 | Outpatient (REF) | payer MEDICARE, OTHER, MEDICAID, SELFPAY ==
[2023-02-20 08:23] LABS: Anion Gap 7 (5-15); BUN 49 mg/dL (7-18); BUN/Creat Ratio 34.8 RATIO (10-20); Calcium,Total 8.1 mg/dL (8.5-10.1); Chloride 110 mmol/L (98-107); Creatinine, Serum 1.41 mg/dL (0.55-1.02); EST Glomerular Filtration Rate 38 mL/min (>60); Est Glom Filt Rate - Afr Amer 46 mL/min (>60); Glucose 80 mg/dL (74-106); Magnesium 2.3 mg/dL (1.6-2.6); Sodium Level 141 mmol/L (136-145)
== END ==
LOC: OLS.SW 05:00
PROVIDERS: PCP Internal Medicine; Visit Provider Internal Medicine
DX: I12.9 Hypertensive chronic kidney disease with stage 1 through stage 4 chronic kidney disease, or unspecified chronic kidney disease (principal); N18.32 Chronic kidney disease, stage 3b
CPT/HCPCS: 36415; 80048; 83735

== ENCOUNTER → 2023-04-17 | Outpatient (REF) | payer MEDICARE, OTHER, MEDICAID, SELFPAY ==
[2023-04-17 09:02] LABS: Uric Acid 7.6 mg/dL (2.6-6.0)
== END ==
LOC: OLS.SW 05:00
PROVIDERS: PCP Internal Medicine; Visit Provider Internal Medicine
DX: I12.9 Hypertensive chronic kidney disease with stage 1 through stage 4 chronic kidney disease, or unspecified chronic kidney disease (principal); N18.32 Chronic kidney disease, stage 3b; D50.9 Iron deficiency anemia, unspecified
CPT/HCPCS: 36415; 84550; 86140

== ENCOUNTER → 2023-04-24 05:45 | Outpatient (REF) | payer MEDICARE, OTHER, MEDICAID, SELFPAY ==
[2023-04-24 07:46] LABS: Mucous, Urine 0 SEEN /hpf (<or=2+); Red Blood Cells-Urine 0 SEEN /hpf (0-5); White Blood Cells 0 SEEN /hpf (0-5)
[2023-04-24 08:08] LABS: Color, Urine Yellow (Yellow); Glucose, Dipstick Normal (Normal); Ketone-Dipstick 5 mg/dl (Negative); Leukocyte Esterase-Dipstick 25 /ul (Negative); Nitrite-Dipstick Positive (Negative); Occult Blood-Urine Negative /ul (Negative); Protein-Dipstick Negative (Negative); Specific Gravity, Urine 1.015 (1.002-1.030); Urine Bilirubin Dipstick Negative (Negative); Urine Clarity Clear (Clear); Urine Urobilinogen Normal (Normal)
[2023-04-24 08:17] LABS: Bacteria 1+ /hpf (None Seen); Squamous Epithelial Cells - UA 0-5 SEEN /hpf (5-10)
== END ==
LOC: OLS.SW 05:45
PROVIDERS: PCP Internal Medicine; Visit Provider Internal Medicine
DX: R41.82 Altered mental status, unspecified (principal)
CPT/HCPCS: 81001; 87077; 87086; 87088; 87186

== ENCOUNTER → 2023-09-04 | Outpatient (REF) | payer MEDICARE, OTHER, MEDICAID, SELFPAY ==
[2023-09-04 08:48] LABS: Hematocrit 26.3 % (37-47); Hemoglobin 8.5 g/dL (12.0-15.0); Mean Corp Hgb Conc 32.3 g/dL (32-36); Mean Corpuscular Hgb 32.4 pg (27.0-32.0); Mean Corpuscular Volume 100.4 fL (81-99); Mean Platelet Vol. 11.3 fl (6.2-12.0); Platelet Count 152 K/mm3 (150-450); RBC Distribution Width CV 12.5 % (11.6-14.6); RBC Distribution Width SD 46.1 fl (35.1-43.9); Red Blood Count 2.62 M/mm3 (4.2-5.4); White Blood Count 4.5 K/mm3 (4.4-11.0)
[2023-09-04 09:06] LABS: Anion Gap 6 (5-15); BUN 35 mg/dL (7-18); BUN/Creat Ratio 24.8 RATIO (10-20); Calcium,Total 8.3 mg/dL (8.5-10.1); Chloride 112 mmol/L (98-107); Creatinine, Serum 1.41 mg/dL (0.55-1.02); EST Glomerular Filtration Rate 38 mL/min (>60); Est Glom Filt Rate - Afr Amer 46 mL/min (>60); Glucose 77 mg/dL (74-106); Potassium 3.9 mmol/L (3.5-5.1); Sodium Level 141 mmol/L (136-145); Thyroid Stim Hormone (TSH) 2.26 uIU/mL (0.358-3.74)
== END ==
LOC: OLS.SW 04:00
PROVIDERS: PCP Internal Medicine; Referring Provider Internal Medicine; Visit Provider Internal Medicine
DX: I12.9 Hypertensive chronic kidney disease with stage 1 through stage 4 chronic kidney disease, or unspecified chronic kidney disease (principal); N18.9 Chronic kidney disease, unspecified
CPT/HCPCS: 36415; 80048; 84443; 85027

== ENCOUNTER → 2023-10-12 05:00 | Outpatient (REF) | payer MEDICARE, OTHER, MEDICAID, SELFPAY ==
[2023-10-12 08:17] LABS: Hematocrit 27.2 % (37-47); Hemoglobin 8.4 g/dL (12.0-15.0); Mean Corp Hgb Conc 30.9 g/dL (32-36); Mean Corpuscular Hgb 31.1 pg (27.0-32.0); Mean Corpuscular Volume 100.7 fL (81-99); Mean Platelet Vol. 11.5 fl (6.2-12.0); Platelet Count 171 K/mm3 (150-450); RBC Distribution Width CV 12.5 % (11.6-14.6); RBC Distribution Width SD 45.9 fl (35.1-43.9); White Blood Count 4.9 K/mm3 (4.4-11.0)
[2023-10-12 08:30] LABS: Anion Gap 4 (5-15); BUN 46 mg/dL (7-18); BUN/Creat Ratio 30.3 RATIO (10-20); Calcium,Total 8.3 mg/dL (8.5-10.1); Chloride 110 mmol/L (98-107); Creatinine, Serum 1.52 mg/dL (0.55-1.02); EST Glomerular Filtration Rate 35 mL/min (>60); Est Glom Filt Rate - Afr Amer 42 mL/min (>60); Glucose 87 mg/dL (74-106); Potassium 4.2 mmol/L (3.5-5.1); Sodium Level 140 mmol/L (136-145)
== END ==
LOC: OLS.SW 05:00
PROVIDERS: PCP Internal Medicine; Visit Provider Internal Medicine
DX: R53.83 Other fatigue (principal); D50.9 Iron deficiency anemia, unspecified
CPT/HCPCS: 36415; 80048; 85027

== ENCOUNTER → 2024-01-05 | Outpatient (REF) | payer MEDICARE, OTHER, MEDICAID, SELFPAY ==
[2024-01-05 08:23] LABS: AST(SGOT) 13 U/L (15-37); Alanine Aminotransfer ALT/SGPT 8 U/L (13-56); Albumin, Serum 2.6 g/dL (3.2-5.0); Alkaline Phosphatase 75 U/L (45-117); Anion Gap 6 (5-15); BUN 43 mg/dL (7-18); BUN/Creat Ratio 23.8 RATIO (10-20); Calcium,Total 8.1 mg/dL (8.5-10.1); Chloride 111 mmol/L (98-107); Cholesterol 109 mg/dL (200); Creatinine, Serum 1.81 mg/dL (0.55-1.02); EST Glomerular Filtration Rate 29 mL/min (>60); Est Glom Filt Rate - Afr Amer 35 mL/min (>60); Globulin 2.6 g/dL (2.2-4.2); Glucose 87 mg/dL (74-106); High Density Lipoprotein 67 mg/dL; Potassium 4.1 mmol/L (3.5-5.1); Protein, Total 5.2 g/dL (6.4-8.2); Sodium Level 142 mmol/L (136-145); Total Bilirubin < 0.10 mg/dL (0.20-1.00); Triglycerides 65 mg/dL; Very Low Density Lipoprotein 13 mg/dL (5-40)
== END ==
LOC: OLS.SW 05:00
PROVIDERS: PCP Internal Medicine; Visit Provider Internal Medicine
DX: E78.5 Hyperlipidemia, unspecified (principal)
CPT/HCPCS: 36415; 80053; 80061

== ENCOUNTER → 2024-02-26 | Outpatient (REF) | payer MEDICARE, OTHER, MEDICAID, SELFPAY ==
[2024-02-26 08:45] LABS: Hematocrit 25.4 % (37-47); Hemoglobin 7.8 g/dL (12.0-15.0); Mean Corp Hgb Conc 30.7 g/dL (32-36); Mean Corpuscular Hgb 29.7 pg (27.0-32.0); Mean Corpuscular Volume 96.6 fL (81-99); Mean Platelet Vol. 11.2 fl (6.2-12.0); Platelet Count 158 K/mm3 (150-450); RBC Distribution Width CV 14.1 % (11.6-14.6); RBC Distribution Width SD 49.7 fl (35.1-43.9); Red Blood Count 2.63 M/mm3 (4.2-5.4); White Blood Count 3.9 K/mm3 (4.4-11.0)
[2024-02-26 09:56] LABS: Anion Gap 9 (5-15); BUN 36 mg/dL (7-18); BUN/Creat Ratio 23.2 RATIO (10-20); Calcium,Total 8.6 mg/dL (8.5-10.1); Chloride 109 mmol/L (98-107); Creatinine, Serum 1.55 mg/dL (0.55-1.02); EST Glomerular Filtration Rate 34 mL/min (>60); Est Glom Filt Rate - Afr Amer 41 mL/min (>60); Glucose 77 mg/dL (74-106); Magnesium 2.4 mg/dL (1.6-2.6); Potassium 4.2 mmol/L (3.5-5.1); Sodium Level 141 mmol/L (136-145)
== END ==
LOC: OLS.SW 05:00
PROVIDERS: PCP Internal Medicine; Visit Provider Internal Medicine
DX: I10 Essential (primary) hypertension (principal)
CPT/HCPCS: 36415; 80048; 83735; 85027

== ENCOUNTER → 2024-02-29 | Outpatient (REF) | payer MEDICARE, OTHER, MEDICAID, SELFPAY ==
[2024-02-29 08:19] LABS: Hematocrit 27.3 % (37-47); Hemoglobin 8.6 g/dL (12.0-15.0); Mean Corp Hgb Conc 31.5 g/dL (32-36); Mean Corpuscular Hgb 30.6 pg (27.0-32.0); Mean Corpuscular Volume 97.2 fL (81-99); Mean Platelet Vol. 11.1 fl (6.2-12.0); Platelet Count 161 K/mm3 (150-450); RBC Distribution Width CV 14.1 % (11.6-14.6); RBC Distribution Width SD 50.3 fl (35.1-43.9); Red Blood Count 2.81 M/mm3 (4.2-5.4); White Blood Count 4.8 K/mm3 (4.4-11.0)
== END ==
LOC: OLS.SW 06:40
PROVIDERS: PCP Internal Medicine; Visit Provider Internal Medicine
DX: Z79.899 Other long term (current) drug therapy (principal)
CPT/HCPCS: 36415; 85027

== ENCOUNTER → 2024-10-10 | Outpatient (REF) | payer MEDICARE, OTHER, MEDICAID, SELFPAY ==
[2024-10-10 08:56] LABS: Anion Gap 10 (5-15); BUN 66 mg/dL (4-19); BUN/Creat Ratio 40.7 RATIO (10-20); Calcium,Total 8.1 mg/dL (7.6-11.0); Carbon Dioxide 19.3 mmol/L (21.0-32.0); Chloride 112 mmol/L (98-108); Creatinine, Serum 1.62 mg/dL (0.70-1.20); EST Glomerular Filtration Rate 32 (>60); Glucose 83 mg/dL (70-99); Magnesium 2.3 mg/dL (1.5-2.2); Potassium 4.3 mmol/L (3.3-5.1); Sodium Level 141 mmol/L (133-145); Vitamin D,25 Hydroxy 48.5 ng/mL (30-100)
[2024-10-10 09:02] LABS: Hemoglobin A1c 4.5 % (<=5.6)
== END ==
LOC: OLS.SW 06:20
PROVIDERS: PCP Internal Medicine; Referring Provider Family Medicine; Visit Provider Family Medicine
DX: G20.C Parkinsonism, unspecified (principal)
CPT/HCPCS: 36415; 80048; 82306; 83036; 83735

== ENCOUNTER → 2024-12-10 | Outpatient (REF) | payer MEDICARE, OTHER, MEDICAID, SELFPAY ==
[2024-12-10 08:46] LABS: Hematocrit 31.6 % (37-47); Hemoglobin 9.3 g/dL (12.0-15.0); Mean Corp Hgb Conc 29.4 g/dL (32-36); Mean Corpuscular Volume 116.2 fL (81-99); Mean Platelet Vol. 11.7 fl (6.2-12.0); Platelet Count 150 K/mm3 (150-450); RBC Distribution Width CV 12.6 % (11.6-14.6); RBC Distribution Width SD 53.9 fl (35.1-43.9); Red Blood Count 2.72 M/mm3 (4.2-5.4); White Blood Count 4.4 K/mm3 (4.4-11.0)
[2024-12-10 09:32] LABS: Anion Gap 12 (5-15); BUN 48 mg/dL (4-19); BUN/Creat Ratio 31.9 RATIO (10-20); Calcium,Total 8.5 mg/dL (7.6-11.0); Carbon Dioxide 17.5 mmol/L (21.0-32.0); Chloride 111 mmol/L (98-108); Glucose 70 mg/dL (70-99); Potassium 4.9 mmol/L (3.3-5.1)
== END ==
LOC: OLS.SW 05:00
PROVIDERS: PCP Internal Medicine; Visit Provider Family Medicine
DX: G20.A1 Parkinson's disease without dyskinesia, without mention of fluctuations (principal)
CPT/HCPCS: 36415; 80048; 85027

== ENCOUNTER → 2025-03-04 | Outpatient (REF) | payer MEDICARE, OTHER, MEDICAID, SELFPAY ==
[2025-03-04 09:39] LABS: Anion Gap 10 (5-15); BUN 42 mg/dL (4-19); BUN/Creat Ratio 30.1 RATIO (10-20); Calcium,Total 8.1 mg/dL (7.6-11.0); Carbon Dioxide 15.6 mmol/L (21.0-32.0); Chloride 114 mmol/L (98-108); Glucose 78 mg/dL (70-99); Potassium 4.6 mmol/L (3.3-5.1)
[2025-03-04 09:54] LABS: Hematocrit 27.0 % (37-47); Hemoglobin 8.3 g/dL (12.0-15.0); Mean Corp Hgb Conc 30.7 g/dL (32-36); Mean Corpuscular Volume 109.3 fL (81-99); Mean Platelet Vol. 11.8 fl (6.2-12.0); Platelet Count 140 K/mm3 (150-450); RBC Distribution Width CV 12.3 % (11.6-14.6); RBC Distribution Width SD 49.5 fl (35.1-43.9); Red Blood Count 2.47 M/mm3 (4.2-5.4); White Blood Count 3.7 K/mm3 (4.4-11.0)
== END ==
LOC: OLS.SW 05:00
PROVIDERS: PCP Internal Medicine; Visit Provider Family Medicine
DX: D64.9 Anemia, unspecified (principal); F03.90 Unspecified dementia, unspecified severity, without behavioral disturbance, psychotic disturbance, mood disturbance, and anxiety; G20.C Parkinsonism, unspecified
CPT/HCPCS: 36415; 80048; 85027

== ENCOUNTER → 2025-05-20 05:00 | Outpatient (REF) | payer MEDICARE, OTHER, MEDICAID, SELFPAY ==
--- OUTSIDE RECORDS SUMMARY | 2025-05-20 04:11 | XMS RPT_ITS | CCD ---
Author Organization [facility] Care Team Providers Care Filling Hauler Name Role Phone CASTILLO Lr, Violeta Fraire Unavailable Tyrell Middleton Unavailable Unavailable Update Needed Unavailable Unavailable Clau Baca MD Primary Care Provider Tree Chaparro RN Unavailable Dr. Clau Bundy Primary Care Provider Dr. Clau Baca Referring Provider Friend, Dr. Brooks Attending Provider Clau Baca MD Primary Care Provider Carmelo RN, Tree Fraire Unavailable Unavailluis daniel Leavitt RN, Carmelo Fraire Unavailable Clau Bundy MD Primary Care Provider Tree EWING, Carmelo Fraire Unavailable Dr. Clau Bundy Primary Care Provider Dr. Refugio Mathis Emergency Provider Dr. Mckenzie Neal Admit Provider Dr. Mckenzie Neal Attending Provider Dr. Mckenzie Neal Other Provider Dr. Clau Baca Primary Care Provider Dr. Refugio Mathis Emergency Provider Dr. Mckenzie Neal Admit Provider Dr. Mckenzie Neal Attending Provider Dr. Mckenzie Neal Other Provider Dr. Ramona Albright Emergency Provider Dr. Prabhakar Kimball Admit Provider Dr. Prabhakar Kimball Attending Provider Dr. Prabhakar Kimball Other Provider Dr. Ashley Andrade Attending Provider Dr. Ashley Andrade Other Provider Keven MORENO, [facility] Primary Care Provider Tree RN, Carmelo Fraire Unavailable Unavailabl e Keven MORENO, [facility] Primary Care Provider Vashti CHONG, Karie Alberts Unavailable Older LABOR RELATIONS ANALYST.CONFLICTS ANALYST, Eryn Unavailable Sharee Araiza PA-C Unavailable Dr. Ca Silva MD Primary Care Provider Unava ilable Cr MORENO, Dr. Valdez Attending Provider Unavail able Dr. José Miguel Hankins MD Referring Provider Unavail able MASCI, RAMAN A Referring Unavailable GANTA, CLAU Primary Care Unavailable GANTA, CLAU Primary Care Unavailable MASCI, RAMAN A Attending Unavailable QUINTEROS, PENNY Referring Unavailable GANTA, CLAU Primary Care Unavailable MASCI, RAMAN A Referring Unavailable GANTA, CLAU Primary Care Unavailable MASCI, RAMAN A Attending Unavailable QUINETROS, PENNY Referring Unavailable GANTA, CLAU Primary Care Unavailable MASCI, RAMAN A Referring Unavailable GANTA, CLAU Primary Care Unavailable MASCI, RAMAN A Referring Unavailable GANTA, CLAU Primary Care Unavailable MASCI, RAMAN A Referring Unavailable GANTA, CLAU Primary Care Unavailable MASCI, RAMAN A Referring Unavailable GANTA, CLAU Primary Care Unavailable MASCI, RAMAN A Referring Unavailable GANTA, CLAU Primary Care Unavailable MASCI, RAMAN A Referring Unavailable GANTA, CLAU Primary Care Unavailable MASCI, RAMAN A Referring Unavailable GANTA, CLAU Primary Care Unavailable José Miguel Orta Attending Unavailable Gudla, [facility] Primary Care Unavailable José Miguel rOta Attending Unavailable [place]udla, [facility] Primary Care Unavailable Ezequiel Silvayothi Primary Care Unavailable José Miguel Orta Referring Unavailable José Miguel Orta Attending Unavailable Allergies Allergy Classification Reported Allergen(s) Allergy Type Date of Onset Reaction(s) Facility (20 sources) amoxicillin; Translations: [AMOXICILLIN] Drug Allergy 7 Itching [facility] Work Phone: (20 sources) Penicillins; Translations: [PENICILLINS] Drug Allergy 9 Rash, Itching [facility] (20 sources) Penicillins Drug Allergy 9 Rash, Itching [facility] (10 sources) Penicillins Allergy to substance 2 Itching [facility] (2 sources) Penicillins Drug Allergy 9 Rash, Itching [facility] (1 source) Penicillins Drug allergy (disorder) 3 [facility] Repository Medications Current Medications Medication Drug Class(es) Dates Sig (Normalized) Sig (Original) acetaminophen 325 mg / HYDROcodone bitartrate 5 mg oral tablet (14 sources) Opioid Agonist take 1 tablet by mouth every twelve hours HYDROcodone-aceta minophen (NORCO) 5-325 mg per tablet Take 1 tablet by mouth every 12 hours. Active aluminum hydroxide 40 mg/ml / magnesium hydroxide 40 mg/ml / simethicone 4 mg/ml oral suspension (12 sources) take 30 mL by mouth every four hours as needed aluminum-magnesiu m hydroxide-simethi cone (MAALOX,MYLANTA,M AG-AL PLUS) 200-200-20 mg/5 mL suspension Take 30 mL by mouth every 4 hours as needed. Active ascorbic acid 500 mg oral tablet (12 sources) Vitamin C take 1 tablet by mouth once daily ascorbic acid, vitamin C, (VITAMIN C) 500 mg tablet Take 500 mg by mouth once daily. Active atorvastatin 10 mg oral tablet (20 sources) HMG-CoA Reductase Inhibitor Start: 05-01-2021 End: 12-07-2021 take 1 tablet by mouth once daily atorvastatin (LIPITOR) 10 mg tablet Take 1 tablet by mouth once daily 90 tablet 3 12/07/2021 Active Comment on above: Take 1 tablet by elvis th once daily. Take 1 tablet by elvis th once daily Take 10 mg by mouth once daily. bisacodyl 10 mg rectal suppository (14 sources) Stimulant Laxative take 10 mg rectal route once daily as needed for constipation bisacodyl (DULCOLAX) 10 mg supp 10 mg by RECTAL route once daily as needed for constipation. Active carbidopa 25 mg / levodopa 100 mg extended release oral tablet (20 sources) Aromatic Amino Acid Decarboxylation Inhibitor, Aromatic Amino Acid Start: 06-08-2021 End: 08-09-2022 take 1 tablet by mouth twice daily carbidopa-levodop a CR (SINEMET CR) 25-100 mg per tablet Indications: Restless legs syndrome Take 1 tablet by mouth twice daily. 180 tablet 3 08/09/2022 Active Start: 12-24-2019 End: 06-06-2021 take 1 tablet by mouth twice daily carbidopa-levodopa CR (SINEMET CR) 25-100 mg per tablet Indications: Restless legs syndrome Take 1 tablet by mouth twice daily. 180 tablet 3 10/02/2020 06/06/2021 Discontinued Start: 11-29-2018 Carbidopa-Levo dopa 1 EACH tablet Active 1 NMA PO TWICE A DAY November 29, 2018 12:00am Start: 11-29-2018 take 1 tablet by elvis twice daily Carbidopa-Levodopa Active 1 TAB PO TWICE A DAY November 29, 2018 12:00am Comment on above: Take 1 tablet by elvis twice daily. cephalexin 500 mg oral capsule (3 sources) Cephalosporin Antibacterial Start: take 500 mg by mouth twice daily Cephalexin Active 500 MG PO TWICE A DAY June 02, 2022 12:00am Start: 10-30-2021 take 500 mg by mouth every twelve hours Cephalexin Active 500 MG PO EVERY 12 HOURS October 30, 2021 3:36pm cholecalciferol 0.05 mg oral tablet (20 sources) Vitamin D Start: 05-01-2021 take 1 tablet by mouth once daily Cholecalciferol (Vitamin D3) (Vitamin D3) 50 mcg (2,000 unit) Tablet Active 50 ug PO DAILY May 01, 2021 1:00am take 1 capsule by mouth once angie ly Cholecalciferol, Vitamin D3, 50 mcg (2,000 unit) cap Take 1 capsule by mouth once daily. Active Comment on above: Take by mouth once d aily. copper gluconate 2 mg oral tablet (14 sources) Start: 05-01-2021 take 2 tablets by mouth once daily Copper Gluconate 2 mg Tablet Active 4 mg PO DAILY May 01, 2021 1:00am Start: 05-01-2021 take 4 mg by mouth once daily Copper Gluconate Active 4 MG PO DAILY May 01, 2021 1:00am End: 05-17-2021 take 2 capsules by mouth once daily copper gluconate 2 mg capsule Take 4 mg by mouth once daily. 0 05/17/2021 Discontinued Comment on above: Take 4 mg by mouth o nce daily. donepezil hydrochloride 5 mg oral tablet (20 sources) take 2 tablets by mouth once daily at bedtime donepezil (ARICEPT) 5 mg tablet Take 10 mg by mouth daily at bedtime. Active take 2.5 mg by mouth once daily at bedtime donepezil (ARICEPT) 5 mg tablet Take 2.5 mg by mouth daily at bedtime. 0 Active Comment on above: Take 2.5 mg by mouth daily at bedtime. ferrous sulfate 325 mg oral tablet (20 sources) Start: 08-19-2022 take 1 tablet by mouth once daily Ferrous Sulfate 325 MG tablet Active 325 mg PO DAILY August 19, 2022 12:47pm Start: 05-06-2021 End: 08-19-2022 take 1 tablet by mouth twice daily at mealtime Ferrous Sulfate 325 MG tablet Discontinued 325 mg PO TWICE DAILY WITH MEALS 0 May 06, 2021 5:20pm August 19, 2022 12:47pm Start: 03-31-2020 End: 02-20-2022 take 1 tablet by mouth once daily at breakfast ferrous sulfate 325 mg (65 mg iron) tablet Take 1 tablet by mouth daily with breakfast. 90 tablet 3 02/21/2022 Active Start: 11-29-2018 End: 05-06-2021 take 1 tablet by mouth once daily Ferrous Sulfate 325 MG tablet Discontinued 325 mg PO DAILY November 29, 2018 12:00am May 06, 2021 5:21pm Comment on above: Take 1 tablet by elvis th daily with breakfast. folic acid 1 mg oral tablet (4 sources) Start: 08-01-2024 End: 08-01-2025 take 1 tablet by mouth once daily folic acid 1 mg tablet Take 1 tablet by mouth once daily. 90 tablet 3 08/01/2024 08/01/2025 Active furosemide 40 mg oral tablet (20 sources) Loop Diuretic Start: 09-12-2022 take 1 tablet by mouth once daily Furosemide (Lasix) 40 mg Tablet Active 40 mg PO DAILY September 12, 2022 12:00am Start: 01-12-2022 take 0.5 tablet by m outh once daily furosemide (LASIX) 20 mg tablet Indications: Leg swelling Take 0.5 tablets by mouth once daily. 90 tablet 3 01/12/2022 Active Start: 06-17-2021 End: 01-12-2022 take 1 tablet by mouth once daily furosemide (LASIX) 20 mg tablet Indications: Leg swelling Take 1 tablet by mouth once daily. 90 tablet 3 06/17/2021 01/12/2022 Discontinued Start: 10-02-2020 End: 06-02-2022 take 1 tablet by mouth every other day Furosemide 20 mg tablet Discontinued 20 mg PO EVERY OTHER DAY May 01, 2021 1:00am June 02, 2022 12:35pm Comment on above: Take 1 tablet by elvis th once daily. Take 0.5 tablets by mouth once daily. Take 20 mg by mouth once daily. Take 20 mg by mouth as needed. Take 1 tablet by elvis th every other day. glucagon (rdna) 1 mg injection (14 sources) Antihypoglycemic Agent glucagon (GLUCAGON EMERGENCY KIT, HUMAN,) 1 mg injection Inject 1 mg subcutaneously as needed. Active inject 1 mg by subcu taneous injection once glucagon (GLUCAGON EMERGENCY KIT, HUMAN, ) 1 mg injection Inject 1 mg subcutaneously one time only. 0 Active Glucose (14 sources) dextrose (GLUCOS E GEL ORAL) Take 1 Dose by mouth as needed. Active dextrose (GLUCOS E GEL ORAL) Take 1 Dose by mouth as needed. 0 Active guaiFENesin 20 mg/ml oral solution (14 sources) take 10 mL by mouth every four hours as needed guaiFENesin (ROBITUSSIN) 100 mg/5 mL syrup Take 10 mL by mouth every 4 hours as needed. Active loperamide hydrochloride 2 mg oral tablet (14 sources) Opioid Agonist take 1 tablet by mouth two times weekly loperamide HCl (IMODIUM) 2 mg tab Take 2 mg by mouth two times a week. Mon and Mon Active losartan potassium 25 mg oral tablet (20 sources) Angiotensin 2 Receptor Kenia Start: take 1 tablet by mouth once daily Losartan 25 mg tablet Active 25 mg PO DAILY August 23, 2022 12:00am Start: 10-02-2020 End: 03-15-2022 take 1 tablet by mouth once daily losartan (COZAAR) 25 mg tablet Take 1 tablet by mouth once daily. 30 tablet 5 09/06/2021 03/15/2022 Discontinued take 2 tablets by mo uth once daily losartan (COZAAR) 25 mg tablet Take 50 mg by mouth once daily. Active Comment on above: Take 1 tablet by elvis th once daily. Take 1 tablet by elvis th once daily Take 25 mg by mouth once daily. Magnesium Hydroxide (20 sources) magnesium hydrox ame (MILK OF MAGNESIA ORAL) Take 30 mL by mouth as needed. PRN Active magnesium hydrox ame (MILK OF MAGNESIA ORAL) Take 30 mL by mouth. PRN Active magnesium hydrox ame (MILK OF MAGNESIA ORAL) Take 30 mL by mouth. PRN 0 Active Comment on above: Take 30 mL by mouth. PRN melatonin 3 mg oral tablet (14 sources) take 1 tablet by mouth once daily at bedtime melatonin 3 mg tablet Take 3 mg by mouth daily at bedtime. Active 24 hr mirabegron 50 mg extended release oral tablet (20 sources) beta3-Adrenergic Agonist Start: 05-30-2022 take 1 tablet by mouth twice daily Mirabegron (Myrbetriq) 50 mg tablet extended release 24 hr Active 50 MG PO TWICE A DAY May 30, 2022 1:00am Start: 11-28-2021 End: 10-04-2022 take 50 mg by mouth once daily MYRBETRIQ 50 mg Tb24 Ta ke 50 mg by mouth once daily. 0 11/28/2021 10/04/2022 Discontinued (Other) Comment on above: Take 50 mg by mouth once daily. mirtazapine 15 mg oral tablet (12 sources) take 1 tablet by mouth once daily at bedtime mirtazapine (REMERON) 15 mg tablet Take 15 mg by mouth daily at bedtime. Active Multivitamin preparation (20 sources) Start: 09-12-2022 take 1 tablet by mouth once daily Multivitamin Active 1 TABLET PO DAILY September 11, 2022 11:00pm Start: 09-12-2022 take 1 tablet by elvis th once daily Multivitamin Active 1 TABLET PO DAILY September 12, 2022 12:00am take 1 tablet by elvis th once daily multivitamin (MULTIPLE VITAMIN ORAL) Take 1 tablet by mouth once daily. Active take 1 tablet by elvis th once daily multivitamin (MULTIPLE VITAMIN ORAL) Take 1 tablet by mouth once daily. 0 Active multivitamin (MU LTIPLE VITAMIN ORAL) Take by mouth. 0 Active Comment on above: Take by mouth. Take 1 tablet by elvis th once daily. Multivitamin Tablet (1 source) Start: Multivitamin Tablet Active 1 {tbl} PO DAILY September 12, 2022 12:00am nitrofurantoin, macrocrystals 25 mg / nitrofurantoin, monohydrate 75 mg oral capsule (1 source) Nitrofuran Antibacterial Start: take 1 capsule by mouth twice daily at mealtime Nitrofurantoin Monohyd/M-Cryst (Macrobid) 100 mg capsule Active 100 MG PO TWICE A DAY 22 12August 12, 2022 12:00am must administer with a meal/food oxybutynin chloride 5 mg oral tablet (20 sources) Cholinergic Muscarinic Antagonist Start: take 2 tablets by mouth once daily Oxybutynin Chloride 5 mg tablet Active 10 mg PO DAILY September 12, 2022 12:00am Start: 09-12-2022 take 10 mg by mouth once daily Oxybutynin Chloride Active 10 MG PO DAILY September 12, 2022 12:00am Start: 06-08-2021 End: 04-12-2022 take 1 tablet by mouth three times daily oxybutynin (DITROPAN) 5 mg tablet Indications: Overactive bladder Take 1 tablet by mouth three times daily. 270 tablet 3 06/08/2021 04/12/2022 Discontinued Start: 08-28-2019 End: 06-06-2021 take 1 tablet by mouth three times daily oxybutynin (DITROPAN) 5 mg tablet Indications: Overactive bladder Take 1 tablet by mouth three times daily. 270 tablet 3 10/02/2020 06/06/2021 Discontinued Start: 11-29-2018 take 10 mg by mouth once daily Oxybutynin Chloride Active 10 MG PO DAILY November 29, 2018 1:00pm End: 12-02-2024 take 1 tablet by mouth once daily oxybutynin ER (DITROPAN XL) 10 mg 24 hr tablet Take 10 mg by mouth once daily. 12/02/2024 Discontinued Comment on above: Take 1 tablet by elvis th three times daily. Take 10 mg by mouth once daily. pantoprazole 40 mg delayed release oral tablet (20 sources) Proton Pump Inhibitor Start: 03-01-20 End: 08-10-19 take 1 tablet by mouth twice daily before mealtime pantoprazole DR (PROTONIX) 40 mg tablet Indications: Gastroesophageal reflux disease without esophagitis Take 1 tablet by mouth twice daily before meals (0600/1600). 180 tablet 3 08/09/2022 Active Comment on above: Take 1 tablet by elvis twice daily before meals (0600/1600). potassium chloride 10 meq extended release oral tablet (20 sources) Start: 06-17-19 End: 08-10-19 take 1 tablet by mouth once daily potassium chloride (K-TAB) 10 mEq tablet Indications: Leg swelling Take 1 tablet by mouth once daily. Take with lasix 90 tablet 3 08/09/2022 Active Start: 05-06-2020 End: 06-17-2021 potassium chloride (K-TAB) 1 0 mEq tablet Indications: Leg swelling Take with lasix 45 tablet 3 05/06/2020 06/17/2021 Discontinued Start: 03-28-2019 take 10 mEq by mouth once daily Potassium Chloride 20 MEQ tablet Active 10 meq PO DAILY March 28, 2019 12:00am Start: 03-28-2019 take 10 mEq by mouth once daily Potassium Chloride Active 10 MEQ PO DAILY March 28, 2019 12:00am Start: 03-28-2019 take 10 mEq by mouth every other day Potassium Chloride Active 10 MEQ PO EVERY OTHER DAY March 27, 2019 11:00pm Comment on above: Take 1 tablet by elvis once daily. Take with lasix Take with lasix sodium phosphate,mono-dibasic (FLEET ENEMA RECTAL) (14 sources) take 1 dose rectal route once as needed sodium phosphate,mono-dibasi c (FLEET ENEMA RECTAL) 1 Dose by RECTAL route. PRN 2x per episode Active take 1 dose rectal r oute once as needed sodium phosphate,mono-dibasic (FLEET NOÉ MA RECTAL) 1 Dose by RECTAL route. PRN 2x per episode 0 Active sulfamethoxazole 800 mg / trimethoprim 160 mg oral tablet (2 sources) Dihydrofolate Reductase Inhibitor Antibacterial, Sulfonamide Antimicrobial Start: 10-27-2021 take 1 tablet by mouth twice daily Sulfamethoxazole-Trimethoprim (Bactrim Ds) 800-160 mg tablet Active 1 TABLET PO TWICE A DAY October 27, 2021 11:04pm traZODone hydrochloride 100 mg oral tablet (20 sources) Serotonin Reuptake Inhibitor Start: 11-29-2018 traZODone (DESYREL) 100 mg tablet Take 75 mg by mouth daily at bedtime. 11/29/2018 Active Start: 11-29-2018 take 1 tablet by mouth at bedt yolanda Trazodone 100 mg Tablet Active 100 mg PO AT BEDTIME May 30, 2022 1:00am Comment on above: Take 100 mg by mouth daily at bedtime. Zinc (2 sources) Start: 05-01-2021 take 50 mg by mouth once daily Zinc Active 50 MG PO DAILY May 01, 2021 6:30pm Completed/Discontinued Medications Medication Drug Class(es) Dates Sig (Normalized) Sig (Original) acetaminophen 500 mg oral tablet (20 sources) Start: 02-17-2021 End: 06-17-2021 take 2 tablets by mouth every eight hours as needed acetaminophen (TYLENOL EXTRA STRENGTH) 500 mg tablet Take 2 tablets by mouth every 8 hours as needed for pain. 60 tablet 2 02/17/2021 06/17/2021 Discontinued Start: 03-29-2019 End: 11-12-2020 take 1 tablet by mouth every eight hours as needed acetaminophen (TYLENOL 8 HOUR) 650 mg CR tablet Take 1 tablet by mouth every 8 hours as needed for Pain. 20 tablet 1 03/29/2019 11/12/2020 Discontinued take 2 capsules by m outh every four hours as needed acetaminophen 325 mg cap Take 650 mg by mouth every 4 hours as needed. Active take 650 mg rectal r oute every four hours as needed acetaminophen (TYLENOL) 650 mg suppository 650 mg by RECTAL route every 4 hours as needed. Active Comment on above: Take 650 mg by mouth every 4 hours as needed. Take 2 tablets by mo uth every 8 hours as needed for pain. aspirin 81 mg delayed release oral tablet (20 sources) Platelet Aggregation Inhibitor, Nonsteroidal Anti-inflammatory Drug Start: 02-17-2021 End: 06-16-2021 take 1 tablet by mouth twice daily Aspirin (Aspir-81) 81 mg Tablet,Delayed Release (Dr/Ec) Discontinued 81 mg PO TWICE A DAY May 01, 2021 1:00am May 06, 2021 5:19pm take 1 capsule by mouth once angie ly aspirin 81 mg cap Take 1 capsule by mouth once daily. Active Comment on above: Take 1 tablet by elvis twice daily. azithromycin 250 mg oral tablet (1 source) Macrolide Antimicrobial Start: 04-23-20 ZITHROMAX 250 MG TABS 2 pills by mouth today, then one pill by mouth for the next 4 days AZITHROMYCIN [id number] Violeta Lr PA-C CELECOXIB CAPS (1 source) Nonsteroidal Anti-inflammatory Drug Start: 01-24-20 13 CELEBREX CAPS CELECOXIB CAPS [id number] Shannan Michael citalopram 10 mg oral tablet (20 sources) Serotonin Reuptake Inhibitor Start: 12-24-19 End: 01-11-20 take 1 tablet by mouth once daily citalopram hydrobromide (CELEXA) 10 mg tablet Indications: Anxiety and depression Take 1 tablet by mouth once daily. 90 tablet 3 10/02/2020 01/10/2022 Discontinued (Discontinued by Patient) Start: 01-23-2013 CELEXA TABS 20 15/01/21 CITALOPRAM HYDROBROMIDE TABS [id number] Shannan Michael Comment on above: Take 1 tablet by [facility] once daily. Comp.Stocking,Thi gh,Long,Small misc (2 sources) Start: 10-02-2020 End: 06-16-2021 Comp.Stocking,Thigh,L hector,Small misc Indications: Knee swelling , Redness and swelling of knee , Ambulatory dysfunction To use at all times possible on the left leg especially 2 Each 2 10/02/2020 06/16/2021 Discontinued (Discontinued by Patient) Comment on above: To use at all times possible on the left leg especially copper citrate 2 mg capsule (20 sources) Start: 06-07-2021 End: 12-02-2024 take 2 capsules by mouth once daily copper citrate 2 mg capsule Take 2 capsules by mouth once daily. 60 capsule 5 06/07/2021 12/02/2024 Discontinued Start: 06-07-2021 take 2 capsules by m outh once daily copper citrate 2 mg capsule Take 2 capsules by mouth once daily. 60 capsule 5 06/07/2021 Active Start: 03-04-2020 End: 06-06-2021 take 2 capsules by mouth once daily copper citrate 2 mg capsule Take 2 capsules by mouth once daily. 03/04/2020 06/06/2021 Discontinued Start: 03-04-2020 End: 06-06-2021 take 2 capsules by mouth once daily copper citrate 2 mg capsule Take 2 capsules by mouth once daily. 0 03/04/2020 06/06/2021 Discontinued Comment on above: Take 2 capsules by m out once daily. docusate sodium 100 mg oral capsule (15 sources) Start: End: 1 take 1 capsule by mouth twice daily docusate sodium (COLACE) 100 mg capsule Take 1 capsule by mouth twice daily. 60 capsule 0 02/17/2021 03/19/2021 Comment on above: Take 1 capsule by mo [facility] twice daily. doxycycline hyclate 100 mg oral capsule (20 sources) Tetracycline-class Drug Start: 1 End: 3 take 1 capsule by mouth twice daily Doxycycline Hyclate (Vibramycin) 100 mg Capsule Discontinued 100 mg PO TWICE A DAY May 01, 2021 1:00am August 23, 2022 9:00am Start: 02-17-2021 End: 05-18-2021 take 1 tablet by mouth twice daily doxycycline (VIBRA-TABS) 100 mg tablet Take 1 tablet by mouth twice daily. 180 tablet 0 02/17/2021 05/18/2021 Comment on above: Take 1 capsule by mo [facility] twice daily. Instructed by ortho to take 1 year after surgery Take 1 capsule by mo [facility] twice daily Take 1 tablet by [facility] twice daily. fluticasone propionate 0.05 mg/actuat metered dose nasal spray (20 sources) Corticosteroid Start: 06-17-19 End: 04-12-20 22 take 2 spray(s) by mouth once daily as needed fluticasone (FLONASE) 50 mcg/actuation nasal spray Indications: Viral upper respiratory tract infection Use 2 Sprays in each nostril once daily as needed for cold/allergy symptoms. Rinse mouth after use. 1 Each 2 06/17/2021 04/12/2022 Discontinued Start: 11-23-2018 End: 07-06-2020 take 2 spray(s) by mouth once daily fluticasone (FLONASE) 50 mcg/actuation nasal spray Indications: Viral upper respiratory tract infection Use 2 Sprays in each nostril once daily. Rinse mouth after use. 1 Bottle 11/23/2018 07/06/2020 Discontinued Comment on above: Use 2 Sprays in each nostril once daily as needed for cold/allergy symptoms. Rinse mouth after use. hydroCHLOROthiazide 12.5 mg / losartan potassium 50 mg oral tablet (20 sources) Thiazide Diuretic, Angiotensin 2 Receptor Kenia Start: End: take 1 tablet by mouth once daily Losartan-Hydrochlor othiazide Discontinued 1 TABLET PO DAILY May 30, 2022 1:00am August 23, 2022 9:58am Start: 05-30-2022 Losartan-[place] chlorothiazide Active TABLET May 30, 2022 12:00am Start: 04-26-2022 End: 10-04-2022 Losartan-Hydrochlorothiazide 50-12.5 mg tablet Discontinued 1 {tbl} PO DAILY May 30, 2022 1:00am August 23, 2022 9:58am Start: 11-29-2018 losartan-hydro CHLOROthiazide (HYZAAR) 50-12.5 mg per tablet once daily. 0 11/29/2018 Active Comment on above: once daily. Take 1 tablet by elvis th once daily. 10 ml iron sucrose 20 mg/ml injection (5 sources) Parenteral Iron Replacement Start: 06-12-2024 End: 06-12-2024 200 mg, INTRAVENOUS, ONCE, 1 dose, On Mon06/12/24 at 1500, Please conduct a 30 minute post dose observation. Start: 06-10-2024 End: 06-10-2024 200 mg, INTRAVENOUS, ONCE, 1 dose, On Mon06/10/24 at 1530, Please conduct a 30 minute post dose observation. Start: 06-06-2024 End: 06-06-2024 200 mg, INTRAVENOUS, ONCE, 1 dose, On Karen 06/06/24 at 1600, Please conduct a 30 minute post dose observation. Start: 05-31-2024 End: 05-31-2024 200 mg, INTRAVENOUS, ONCE, 1 dose, On Mon05/31/24 at 1500, Please conduct a 30 minute post dose observation. Start: 05-28-2024 End: 05-28-2024 200 mg, INTRAVENOUS, ONCE, 1 dose, On Mon05/28/24 at 1100, Please conduct a 30 minute post dose observation. levoFLOXacin 750 mg oral tablet (7 sources) Quinolone Antimicrobial Start: 08-19-2022 End: 08-23-2022 take 1 tablet by mouth once daily Levofloxacin 750 mg tablet Discontinued 750 mg PO DAILY August 19, 2022 12:00am August 23, 2022 9:01am memantine hydrochloride 5 mg oral tablet (9 sources) C-[id number]-aspartat e Receptor Antagonist Start: 12-10-2021 End: 01-12-2022 take 1 tablet by mouth twice daily memantine (NAMENDA) 5 mg tablet Take 1 tablet by mouth twice daily. 30 tablet 1 12/10/2021 01/12/2022 Discontinued (Discontinued by Patient) Comment on above: Take 1 tablet by elvis twice daily. naloxone hydrochloride 40 mg/ml nasal spray (2 sources) Opioid Antagonist Start: 02-17-2021 End: 06-16-2021 naloxone 4 mg/actuation nasal spray (NARCAN) Use 1 spray in one nostril as needed for overdose. May repeat every 2 to 3 min in alternating nostrils until medical assistance is available 1 Box 0 02/17/2021 06/16/2021 Discontinued (Course of therapy completed) Comment on above: Use 1 spray in one n ostril as needed for overdose. May repeat every 2 to 3 min in alternating nostrils until medical assistance is available oxyCODONE hydrochloride 5 mg oral tablet (14 sources) Opioid Agonist Start: 05-01-2021 End: 05-06-2021 take 1 tablet by mouth every six hours as needed for pain Oxycodone 5 mg Tablet Discontinued 5 mg PO EVERY 6 HOURS as needed for Pain May 01, 2021 1:00am May 06, 2021 5:21pm Start: 02-17-2021 End: 06-16-2021 oxyCODONE IR (ROXICODONE) 5 mg immediate release tablet Indications: Infection and inflammatory reaction due to internal left knee prosthesis, initial encounter ([facility]) Take 1-2 tablets by mouth every 6 hours as needed for pain for up to 25 doses. for pain. 50 tablet 0 02/17/2021 06/16/2021 Discontinued (Course of therapy completed) Comment on above: Take 1-2 tablets by mouth every 6 hours as needed for pain for up to 25 doses. for pain. oxyMORphone hydrochloride 5 mg oral tablet (2 sources) Opioid Agonist End: 2 take 1 tablet by mouth every four hours as needed oxyMORphone (OPANA) 5 mg tablet Take 5 mg by mouth every 4 hours as needed. 0 06/16/2021 Discontinued (Course of therapy completed) Comment on above: Take 5 mg by mouth e very 4 hours as needed. perflutren lipid microspheres 1.3 mL in NaCl (PF) 0.9% 10 mL injection (DEFINITY) (20 sources) Start: 2 End: 3 perflutren lipid microspheres 1.3 mL in NaCl (PF) 0.9% 10 mL injection (DEFINITY) Start: 11-04-2020 End: 02-03-2022 perflutren lipid microsphere s 1.3 mL in NaCl (PF) 0.9% 10 mL injection (DEFINITY) pravastatin sodium 40 mg oral tablet (3 sources) HMG-CoA Reductase Inhibitor Start: 12-24-2019 End: 06-17-2021 take 1 tablet by mouth once daily pravastatin (PRAVACHOL) 40 mg tablet Indications: Hyperlipidemia, unspecified hyperlipidemia type Take 1 tablet by mouth once daily. 90 tablet 3 10/02/2020 06/17/2021 Discontinued (Course of therapy completed) Comment on above: Take 1 tablet by [facility] once daily. SENNA-DOCUSATE SODIUM ORAL (2 sources) End: 07-09-2021 SENNA-DOCUSATE SODIUM ORAL Take by mouth as needed. 0 07/09/2021 Discontinued Comment on above: Take by mouth as nee ded. sennosides, shelter 8.6 mg oral tablet (20 sources) Start: 02-17-2021 End: 01-10-2022 take 2 tablets by mouth once daily at bedtime senna (SENOKOT) 8.6 mg tab Take 2 tablets by mouth daily at bedtime. 02/17/2021 01/10/2022 Discontinued (Discontinued by Patient) Comment on above: Take 2 tablets by [facility] daily at bedtime. 125 ml sodium chloride 9 mg/ml prefilled syringe (20 sources) Start: 03-01-2022 End: 05-31-2023 sodium chloride 0.9 % (flush) 10 mL (BD POSIFLUSH) Start: 11-04-2020 End: 02-03-2022 sodium chloride 0.9 % (flush ) 10 mL (BD POSIFLUSH) SOLIFENACIN SUCCINATE TABS (1 source) Cholinergic Muscarinic Antagonist Start: 01-23-2013 VESICARE TABS SOLIFENACIN SUCCINATE TABS [id number] Shannan Michael trospium chloride 20 mg oral tablet (2 sources) Cholinergic Muscarinic Antagonist Start: 02-17-2021 End: 06-17-2021 take 1 tablet by mouth twice daily before mealtime trospium (SANCTURA) 20 mg tablet Take 1 tablet by mouth twice daily before meals. 0 02/17/2021 06/17/2021 Discontinued (Course of therapy completed) Comment on above: Take 1 tablet by [facility] twice daily before meals. VALSARTAN TABS (1 source) Angiotensin 2 Receptor Kenia Start: 01-23-2013 DIOVAN TABS VALSARTAN TABS [id number] Shannan Michael vibegron (GEMTESA) 75 mg tablet (13 sources) End: 12-02-2024 take 1 tablet by mouth once daily vibegron (GEMTESA) 75 mg tablet Take 75 mg by mouth once daily. 12/02/2024 Discontinued take 1 tablet by mouth once mel y vibegron (GEMTESA) 75 mg tablet Take 75 mg by mouth once daily. Active take 1 tablet by mouth once mel y vibegron (GEMTESA) 75 mg tablet Take 75 mg by mouth once daily. 0 Active VITAMIN B COMPLEX ORAL (20 sources) Start: 11-29-2018 End: 10-04-2022 VITAMIN B COMPLEX ORAL Vitam in B Complex Active 1 CAP DAILY November 29, 2018 1:00pm 0 11/29/2018 10/04/2022 Discontinued (Other) Start: 11-29-2018 VITAMIN B COMP ALYSHA ORAL Vitamin B Complex Active 1 CAP DAILY November 29, 2018 1:00pm 0 11/29/2018 Active Comment on above: Vitamin B Complex Ac tive 1 CAP DAILY November 29, 2018 1:00pm zinc sulfate 220 mg oral capsule (20 sources) Start: 06-08-2021 End: 01-10-2022 take 1 capsule by mouth once daily zinc sulfate 220 (50) mg capsule Take 1 capsule by mouth once daily. 90 capsule 3 06/08/2021 01/10/2022 Discontinued (Discontinued by Patient) Start: 03-31-2020 End: 06-06-2021 take 1 capsule by mouth once daily zinc sulfate 220 (50) mg capsule Take 1 capsule by mouth once daily. 90 capsule 3 10/02/2020 06/06/2021 Discontinued Comment on above: Take 1 capsule by mo uth once daily. Problems Active Problems Problem Classification Problem Date Documented Da te Episodic/Chronic Acute and unspecified renal failure (17 sources) Prerenal azotemia; Translations: [Unspecified kidney failure] Chronic Acute posthemorrhagic anemia (12 sources) Acute posthemorrhagic anemia; Translations: [Acute posthemorrhagic anemia] 05-14-2021 Episodic Comment on above: requiring transfusio n Anxiety disorders (20 sources) Anxiety; Translations: [Anxiety disorder, unspecified] Onset: 8 10-05-2017 Chronic Chronic kidney disease (20 sources) Chronic kidney disease stage 3; Translations: [Stage 3 chronic kidney disease] Onset: 8 06-01-2021 Chronic Conduction disorders (20 sources) Complete atrioventricular block; Translations: [Atrioventricular block, complete] Onset: 9 05-01-2019 Chronic Coronary atherosclerosis and other heart disease (20 sources) Coronary atherosclerosis; Translations: [Atherosclerotic heart disease of [place] coronary artery without angina pectoris] Onset: 8 05-01-2019 Chronic Deficiency and other anemia (20 sources) Anemia co-occurrent and due to chronic kidney disease stage 3; Translations: [Anemia due to stage 3b chronic kidney disease (HCC) (HCC)] Onset: 8 05-21-2024 Chronic Deficiency and other anemia (1 source) Anemia in chronic kidney disease; Translations: [Anemia due to stage 3b chronic kidney disease (HCC)] Onset: Chronic Deficiency and other anemia (1 source) Nutritional anemia; Translations: [Other vitamin B12 deficiency anemias] Episodic Deficiency and other anemia (1 source) Anemia, unspecified; Translations: [Anemia, unspecified] Onset: 5 Episodic Deficiency and other anemia (1 source) Deficiency and other anemia; Translations: [Anemia due to stage 3b chronic kidney disease (HCC)] Onset: 4 Delirium, dementia, and amnestic and other cognitive disorders (1 source) Unspecified dementia without behavioral disturbance; Translations: [Unspecified dementia, unspecified severity, without behavioral disturbance, psychotic disturbance, mood disturbance, and anxiety] Onset: 5 Chronic Disorders of lipid metabolism (4 sources) Hyperlipidemia; Translations: [Hyperlipidemia, unspecified] Chronic E Codes: Fall (5 sources) Fall from bed, initial encounter; Translations: [Fall from bed] 09-12-2022 Episodic Esophageal disorders (20 sources) Gastroesophageal reflux disease; Translations: [Gastro-esophageal reflux disease without esophagitis] 12-27-2017 Chronic Essential hypertension (12 sources) Hypertensive disorder; Translations: [Essential (primary) hypertension] 05-06-2021 Chronic Gastritis and duodenitis (12 sources) Lymphocytic gastritis; Translations: [Other gastritis without bleeding] 05-11-2021 Episodic Genitourinary symptoms and ill-defined conditions (20 sources) Urge incontinence of urine; Translations: [Urge incontinence] Onset: 8 03-17-2008 Chronic Heart valve disorders (20 sources) History of aortic valve replacement; Translations: [Presence of prosthetic heart valve] Onset: 9 03-06-2019 Chronic Immunizations and screening for infectious disease (1 source) Vaccination needed; Translations: [Encounter for immunization] Episodic Malaise and fatigue (20 sources) Asthenia; Translations: [Weakness] Episodic Mood disorders (20 sources) Recurrent major depression in partial remission; Translations: [Major depressive disorder, recurrent, in partial remission] Onset: 0 Resolved: 9 03-27-2020 Chronic Open wounds of head; neck; and trunk (5 sources) Scalp laceration; Translations: [Laceration without foreign body of scalp, initial encounter] 09-12-2022 Episodic Other circulatory disease (20 sources) Low blood pressure; Translations: [Hypotension, unspecified] 06-10-2022 Episodic Other circulatory disease (7 sources) Hypotension, unspecified; Translations: [Hypotension, unspecified] Episodic Other connective tissue disease (6 sources) History of revision of left total knee arthroplasty; Translations: [Presence of left artificial knee joint] Chronic Other connective tissue disease (3 sources) Swelling of lower limb; Translations: [Other specified soft tissue disorders] Episodic Other diseases of bladder and urethra (20 sources) Overactive bladder; Translations: [Other neuromuscular dysfunction of bladder] Onset: 9 03-26-2009 Chronic Other diseases of kidney and ureters (2 sources) Abnormal renal function; Translations: [Disorder of kidney and ureter, unspecified] Episodic Other gastrointestinal disorders (20 sources) Malabsorption - iron; Translations: [Intestinal malabsorption, unspecified] Onset: 0 01-04-2020 Chronic Other gastrointestinal disorders (2 sources) Intestinal malabsorption, unspecified; 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)] Onset: 0 Chronic Other gastrointestinal disorders (2 sources) Dark stools; Translations: [Other fecal abnormalities] Episodic Other gastrointestinal disorders (1 source) History of gastrointestinal bleed; Translations: [Personal history of other diseases of the digestive system] Episodic Other hereditary and degenerative nervous system conditions (20 sources) Restless legs; Translations: [Restless legs syndrome] Onset: 8 12-23-2018 Chronic Other infections; including parasitic (1 source) H/O: infectious disease; Translations: [Personal history of other infectious and parasitic diseases] Episodic Other injuries and conditions due to external causes (5 sources) Closed injury of head; Translations: [Unspecified injury of head, initial encounter] 09-12-2022 Episodic Other injuries and conditions due to external causes (1 source) History of fall; Translations: [History of falling] 10-21-2021 Episodic Other non-traumatic joint disorders (2 sources) Edema of knee; Translations: [Effusion, unspecified knee] Episodic Other non-traumatic joint disorders (4 sources) Pain in left knee; Translations: [Pain in joint, lower leg] Episodic Other nutritional; endocrine; and metabolic disorders (9 sources) Dietary intake finding; Translations: [Other symptoms and signs concerning food and fluid intake] 06-10-2022 Episodic Other nutritional; endocrine; and metabolic disorders (6 sources) Other symptoms and signs concerning food and fluid intake; Translations: [Other symptoms concerning nutrition, metabolism, and development] Episodic Residual codes; unclassified (12 sources) Difficult venous access; Translations: [Other specified health status] 05-06-2021 Episodic Residual codes; unclassified (7 sources) Confusional state; Translations: [Disorientation, unspecified] 08-19-2022 Episodic Residual codes; unclassified (4 sources) Disorientation, unspecified; Translations: [Unspecified psychosis] 08-19-2022 Episodic Rheumatoid arthritis and related disease (12 sources) Rheumatoid arthritis; Translations: [Rheumatoid arthritis, unspecified] 05-06-2021 Chronic Thyroid disorders (1 source) Hypothyroidism, unspecified; Translations: [Acquired hypothyroidism] Onset: 5 Chronic Unclassified (3 sources) High Risk Chronic Disease Home Monitoring Problem Onset: 3 10-19-2022 Unclassified (1 source) Parkinsonism, unspecified; Translations: [Parkinsonism, unspecified] Onset: 5 Past or Other Problems Problem Classification Problem Date Documented Da te Episodic/Chronic Acute and unspecified renal failure (20 sources) [id number] renal failure; Translations: [Acute kidney failure, unspecified] Onset: 9 Resolved: 9 Episodic Administrative/social admission (20 sources) Discharge status; Translations: [Other problems related to medical facilities and other health care] Onset: 9 Resolved: 0 03-27-2020 Episodic Calculus of urinary tract (20 sources) Kidney stone; Translations: [Calculus of kidney] Onset: 7 12-23-2018 Episodic Chronic obstructive pulmonary disease and bronchiectasis (20 sources) Bronchitis; Translations: [Bronchitis, not specified as acute or chronic] Onset: 9 Resolved: 2 08-08-2018 Episodic Coagulation and hemorrhagic disorders (20 sources) Thrombocytopenic disorder; Translations: [Thrombocytopenia, unspecified] Onset: 9 Resolved: 9 04-26-2019 Chronic Complication of device; implant or graft (20 sources) Prosthetic aortic valve stenosis; Translations: [Stenosis of other cardiac prosthetic devices, implants and grafts, initial encounter] Onset: 9 12-28-2018 Episodic Complications of surgical procedures or medical care (20 sources) Postoperative hypertension; Translations: [Postprocedural hypertension] Resolved: 9 04-26-2019 Episodic Deficiency and other anemia (20 sources) Pancytopenia; Translations: [Other pancytopenia] Onset: 0 Resolved: 0 03-27-2020 Chronic Deficiency and other anemia (20 sources) Anemia; Translations: [Other specified anemias] Onset: 9 06-14-2021 Episodic Deficiency and other anemia (20 sources) Megaloblastic anemia due to vitamin B>12< deficiency; Translations: [Other megaloblastic anemias, not elsewhere classified] Onset: 0 01-01-2020 Episodic Deficiency and other anemia (20 sources) Iron 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; Translations: [Other iron deficiency anemias] Onset: 0 01-04-2020 Episodic Deficiency and other anemia (20 sources) Iron deficiency anemia; Translations: [Iron deficiency anemia, unspecified] Onset: 9 Resolved: 0 03-27-2020 Episodic Deficiency and other anemia (1 source) Other megaloblastic anemias, not elsewhere classified; Translations: [Megaloblastic anemia due to vitamin B12 deficiency] Onset: 0 Episodic Deficiency and other anemia (1 source) Other iron deficiency anemias; Translations: [Iron 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] Onset: 0 Episodic Diabetes mellitus without complication (20 sources) Metabolic stress hyperglycemia; Translations: [Hyperglycemia, unspecified] Onset: 9 04-29-2019 Episodic Fluid and electrolyte disorders (20 sources) Hypervolemia; Translations: [Fluid overload, unspecified] Onset: 9 Resolved: 2 04-30-2019 Episodic Gastrointestinal hemorrhage (20 sources) Gastrointestinal hemorrhage; Translations: [Gastrointestinal hemorrhage, unspecified] Onset: 9 Resolved: 9 05-01-2019 Episodic Comment on above: site unknown Genitourinary symptoms and ill-defined conditions (20 sources) History of urinary tract infection; Translations: [Personal history of urinary (tract) infections] Onset: 1 Resolved: 2 11-06-2020 Episodic Nutritional deficiencies (20 sources) Moderate protein energy malnutrition; Translations: [Moderate protein-calorie malnutrition] Onset: 9 Resolved: 1 10-02-2020 Chronic Nutritional deficiencies (20 sources) Mineral deficiency; Translations: [Copper deficiency] Onset: 0 03-03-2020 Episodic Other circulatory disease (20 sources) History of endocarditis; Translations: [Personal history of other diseases of the circulatory system] Onset: 9 03-27-2020 Episodic Other gastrointestinal disorders (19 sources) History of bypass of stomach; Translations: [Bariatric surgery status] Onset: 4 05-21-2024 Episodic Other gastrointestinal disorders (1 source) Bariatric surgery status; Translations: [History of gastric bypass] Onset: 4 Episodic Other nervous system disorders (20 sources) Postoperative pain ; Translations: [Other acute postprocedural pain] Onset: 9 Resolved: 9 05-01-2019 Episodic Other screening for suspected conditions (not mental disorders or infectious disease) (20 sources) Raised cardiac enzyme or marker; Translations: [Other specified abnormal findings of blood chemistry] Onset: 9 Resolved: 9 12-23-2018 Episodic Other upper respiratory infections (1 source) Acute maxillary sinusitis; Translations: [Acute maxillary sinusitis, unspecified] Onset: 7 04-23-2017 Episodic Parkinson`s disease (20 sources) Parkinson's disease; Translations: [Parkinson's disease] Onset: 9 Resolved: 0 05-06-2021 Chronic Pleurisy; pneumothorax; pulmonary collapse (20 sources) Atelectasis; Translations: [Atelectasis] Onset: 9 Resolved: 2 04-30-2019 Episodic Residual codes; unclassified (20 sources) Memory impairment; Translations: [Other amnesia] Onset: 0 07-12-2019 Episodic Residual codes; unclassified (20 sources) Patient encounter status; Translations: [Encounter for procedure for purposes other than remedying health state, unspecified] Onset: 1 Resolved: 2 02-15-2021 Episodic Residual codes; unclassified (18 sources) Transition of care; Translations: [Other specified health status] Onset: 9 Resolved: 0 03-27-2020 Episodic Respiratory failure; insufficiency; arrest (adult) (20 sources) Ventilator finding; Translations: [Dependence on respirator [ventilator] status] Onset: 9 Resolved: 9 04-23-2019 Chronic Sprains and strains (1 source) Sprain of ankle; Translations: [Sprain of unspecified ligament of right ankle] 01-23-2013 Episodic Unclassified (2 sources) Transition of care; Translations: [Transition of care performed with sharing of clinical summary] Onset: 9 Resolved: 0 03-27-2020 Urinary tract infections (20 sources) Chronic pyelonephritis; Translations: [Chronic tubulo-interstitial nephritis, unspecified] Onset: 8 Resolved: 2 03-17-2008 Episodic Results Test Name Value Interpretation Reference Range Facility Basic Metabolic Profile (BMP )on 03-04-2025 BUN/CRE 30.1 RATIO High 10-20 [facility] Comment on above: Order Comment: 502.1 Performed By: #### L 500.2500, L100.0500 #### [facility] [address] [place], [address] Calcium [Mass/Vol] 8.1 mg/dL Normal 7.6-11.0 [facility] Comment on above: Order Comment: 502.1 Performed By: #### L 500.2500, L100.0500 #### [facility] [address] [place], [address] Chloride [Moles/Vol] 114 mmol/L High 98-108 [facility] Comment on above: Order Comment: 502.1 Performed By: #### L 500.2500, L100.0500 #### [facility] [address] [place], [address] CO2 [Moles/Vol] 15.6 mmol/L Low 21.0-32.0 [facility] Comment on above: Order Comment: 502.1 Performed By: #### L 500.2500, L100.0500 #### [facility] [address] [place], [address] Creatinine [Mass/Vol] 1.39 mg/dL High 0.70-1.20 [facility] Comment on above: Order Comment: 502.1 Performed By: #### L 500.2500, L100.0500 #### [facility] [address] [place], [address] GAP 10 Normal 5-15 [facility] Comment on above: Order Comment: 502.1 Performed By: #### L 500.2500, L100.0500 #### [facility] [address] [place], [address] GFR/1.73 sq M.predicted among non-blacks MDRD (S/P/Bld) [Vol rate/Area] 38 mL/min/{1.73_m2} Low >60 [facility] Comment on above: Order Comment: 502.1 Result Comment: mL/m in/1.73m2 CKD-EPI Creatinine Equation (2020) Performed By: #### L 500.2500, L100.0500 #### [facility] [address] [place], [address] Glucose [Mass/Vol] 78 mg/dL Normal 70-99 [facility] Comment on above: Order Comment: 502.1 Performed By: #### L 500.2500, L100.0500 #### [facility] [address] [place], [address] Potassium [Moles/Vol] 4.6 mmol/L Normal 3.3-5.1 [facility] Comment on above: Order Comment: 502.1 Result Comment: Hemo lysis present, Results??could be affected. ?? Performed By: #### L 500.2500, L100.0500 #### [facility] [address] [place], [address] Sodium [Moles/Vol] 140 mmol/L Normal 133-145 [facility] Comment on above: Order Comment: 502.1 Performed By: #### L 500.2500, L100.0500 #### [facility] [address] [place], [address] Urea nitrogen [Mass/Vol] 42 mg/dL High 4-19 [facility] Comment on above: Order Comment: 502.1 Performed By: #### L 500.2500, L100.0500 #### [facility] [address] [place], [address] CBC-Complete Blood Cnt No Di ffon 03-04-2025 Erythrocyte distribution width (RBC) [Ratio] 12.3 % Normal 11.6-14.6 [facility] Comment on above: Order Comment: 502.1 Performed By: #### L 500.2500, L100.0500 #### [facility] [address] [place], [address] Hematocrit (Bld) [Volume fraction] 27.0 % Low 37-47 [facility] Comment on above: Order Comment: 502.1 Performed By: #### L 500.2500, L100.0500 #### [facility] [address] [place], [address] Hemoglobin (Bld) [Mass/Vol] 8.3 g/dL Low 12.0-15.0 [facility] Comment on above: Order Comment: 502.1 Performed By: #### L 500.2500, L100.0500 #### [facility] [address] [place], [address] MCH (RBC) [Entitic mass] 33.6 pg High 27.0-32.0 [facility] Comment on above: Order Comment: 502.1 Performed By: #### L 500.2500, L100.0500 #### [facility] [address] [place], [address] MCHC (RBC) [Mass/Vol] 30.7 g/dL Low 32-36 [facility] Comment on above: Order Comment: 502.1 Performed By: #### L 500.2500, L100.0500 #### [facility] [address] [place], [address] MCV (RBC) [Entitic vol] 109.3 fL High 81-99 [facility] Comment on above: Order Comment: 502.1 Performed By: #### L 500.2500, L100.0500 #### [facility] [address] [place], [address] Platelet mean volume (Bld) [Entitic vol] 11.8 fL Normal 6.2-12.0 [facility] Comment on above: Order Comment: 502.1 Performed By: #### L 500.2500, L100.0500 #### [facility] [address] [place], [address] Platelets (Bld) [#/Vol] 140 10*3/uL Low 150-450 [facility] Comment on above: Order Comment: 502.1 Performed By: #### L 500.2500, L100.0500 #### [facility] [address] [place], [address] RBC (Bld) [#/Vol] 2.47 10*6/uL Low 4.2-5.4 [facility] Comment on above: Order Comment: 502.1 Performed By: #### L 500.2500, L100.0500 #### [facility] [address] [place], [address] RDW SD 49.5 fl High 35.1-43.9 [facility] Comment on above: Order Comment: 502.1 Performed By: #### L 500.2500, L100.0500 #### [facility] [address] [place], [address] WBC (Bld) [#/Vol] 3.7 10*3/uL Low 4.4-11.0 [facility] Comment on above: Order Comment: 502.1 Performed By: #### L 500.2500, L100.0500 #### [facility] [address] [place], [address] Basic Metabolic Profile (BMP )on 12-10-2024 BUN/CRE 31.9 RATIO High 10-20 [facility] Comment on above: Order Comment: 502.1 Performed By: #### L 100.0500, L500.2500 #### [facility] [address] [place], [address] Calcium [Mass/Vol] 8.5 mg/dL Normal 7.6-11.0 [facility] Comment on above: Order Comment: 502.1 Performed By: #### L 100.0500, L500.2500 #### [facility] [address] [place], [address] Chloride [Moles/Vol] 111 mmol/L High 98-108 [facility] Comment on above: Order Comment: 502.1 Performed By: #### L 100.0500, L500.2500 #### [facility] [address] [place], [address] CO2 [Moles/Vol] 17.5 mmol/L Low 21.0-32.0 [facility] Comment on above: Order Comment: 502.1 Performed By: #### L 100.0500, L500.2500 #### [facility] [address] [place], [address] Creatinine [Mass/Vol] 1.50 mg/dL High 0.70-1.20 [facility] Comment on above: Order Comment: 502.1 Performed By: #### L 100.0500, L500.2500 #### [facility] [address] [place], [address] GAP 12 Normal 5-15 [facility] Comment on above: Order Comment: 502.1 Performed By: #### L 100.0500, L500.2500 #### [facility] [address] [place], [address] GFR/1.73 sq M.predicted among non-blacks MDRD (S/P/Bld) [Vol rate/Area] 35 mL/min/{1.73_m2} Low >60 [facility] Comment on above: Order Comment: 502.1 Result Comment: mL/m in/1.73m2 CKD-EPI Creatinine Equation (2020) Performed By: #### L 100.0500, L500.2500 #### [facility] [address] [place], [address] Glucose [Mass/Vol] 70 mg/dL Normal 70-99 [facility] Comment on above: Order Comment: 502.1 Performed By: #### L 100.0500, L500.2500 #### [facility] [address] [place], [address] Potassium [Moles/Vol] 4.9 mmol/L Normal 3.3-5.1 [facility] Comment on above: Order Comment: 502.1 Result Comment: Hemo lysis present, Results??could be affected. ?? Performed By: #### L 100.0500, L500.2500 #### [facility] [address] [place], [address] Sodium [Moles/Vol] 140 mmol/L Normal 133-145 [facility] Comment on above: Order Comment: 502.1 Performed By: #### L 100.0500, L500.2500 #### [facility] [address] [place], [address] Urea nitrogen [Mass/Vol] 48 mg/dL High 4-19 [facility] Comment on above: Order Comment: 502.1 Performed By: #### L 100.0500, L500.2500 #### [facility] [address] [place], [address] CBC-Complete Blood Cnt No Di ffon 12-10-2024 Erythrocyte distribution width (RBC) [Ratio] 12.6 % Normal 11.6-14.6 [facility] Comment on above: Order Comment: 502.1 Performed By: #### L 100.0500, L500.2500 #### [facility] [address] [place], [address] Hematocrit (Bld) [Volume fraction] 31.6 % Low 37-47 [facility] Comment on above: Order Comment: 502.1 Performed By: #### L 100.0500, L500.2500 #### [facility] [address] [place], [address] Hemoglobin (Bld) [Mass/Vol] 9.3 g/dL Low 12.0-15.0 [facility] Comment on above: Order Comment: 502.1 Performed By: #### L 100.0500, L500.2500 #### [facility] [address] [place], [address] MCH (RBC) [Entitic mass] 34.2 pg High 27.0-32.0 [facility] Comment on above: Order Comment: 502.1 Performed By: #### L 100.0500, L500.2500 #### [facility] [address] [place], [address] MCHC (RBC) [Mass/Vol] 29.4 g/dL Low 32-36 [facility] Comment on above: Order Comment: 502.1 Performed By: #### L 100.0500, L500.2500 #### [facility] [address] [place], [address] MCV (RBC) [Entitic vol] 116.2 fL High 81-99 [facility] Comment on above: Order Comment: 502.1 Performed By: #### L 100.0500, L500.2500 #### [facility] [address] [place], [address] Platelet mean volume (Bld) [Entitic vol] 11.7 fL Normal 6.2-12.0 [facility] Comment on above: Order Comment: 502.1 Performed By: #### L 100.0500, L500.2500 #### [facility] [address] [place], [address] Platelets (Bld) [#/Vol] 150 10*3/uL Normal 150-450 [facility] Comment on above: Order Comment: 502.1 Performed By: #### L 100.0500, L500.2500 #### [facility] [address] [place], [address] RBC (Bld) [#/Vol] 2.72 10*6/uL Low 4.2-5.4 [facility] Comment on above: Order Comment: 502.1 Performed By: #### L 100.0500, L500.2500 #### [facility] [address] [place], [address] RDW SD 53.9 fl High 35.1-43.9 [facility] Comment on above: Order Comment: 502.1 Performed By: #### L 100.0500, L500.2500 #### [facility] [address] [place], [address] WBC (Bld) [#/Vol] 4.4 10*3/uL Normal 4.4-11.0 [facility] Comment on above: Order Comment: 502.1 Performed By: #### L 100.0500, L500.2500 #### [facility] [address] [place], [address] Anion gap in Serum or Plasma Ordered By: José Miguel Hankins on 10-10-2024 Anion gap [Moles/Vol] 10 mmol/L 5-15 [facility] BUN/creatinine ratioOrdered By: José Miguel Hankins on 10-10-2024 Urea nitrogen/Creatinine [Mass ratio] 40.7 mg/mg High 10-20 [facility] Basic Metabolic Profile (BMP )on 10-10-2024 BUN/CRE 40.7 RATIO High 10-20 [facility] Comment on above: Performed By: #### L 506.1001, L501.5200, L501.9985, L500.2500 #### [facility] [address] [place], [address] Calcium [Mass/Vol] 8.1 mg/dL Normal 7.6-11.0 [facility] Comment on above: Performed By: #### L 506.1001, L501.5200, L501.9985, L500.2500 #### [facility] [address] [place], [address] Chloride [Moles/Vol] 112 mmol/L High 98-108 [facility] Comment on above: Performed By: #### L 506.1001, L501.5200, L501.9985, L500.2500 #### [facility] [address] [place], [address] CO2 [Moles/Vol] 19.3 mmol/L Low 21.0-32.0 [facility] Comment on above: Performed By: #### L 506.1001, L501.5200, L501.9985, L500.2500 #### [facility] [address] [place], [address] Creatinine [Mass/Vol] 1.62 mg/dL High 0.70-1.20 [facility] Comment on above: Performed By: #### L 506.1001, L501.5200, L501.9985, L500.2500 #### [facility] [address] [place], [address] GAP 10 Normal 5-15 [facility] Comment on above: Performed By: #### L 506.1001, L501.5200, L501.9985, L500.2500 #### [facility] [address] [place], [address] GFR/1.73 sq M.predicted among non-blacks MDRD (S/P/Bld) [Vol rate/Area] 32 mL/min/{1.73_m2} Low >60 [facility] Comment on above: Result Comment: mL/m in/1.73m2 CKD-EPI Creatinine Equation (2020) Performed By: #### L 506.1001, L501.5200, L501.9985, L500.2500 #### [facility] [address] [place], [address] Glucose [Mass/Vol] 83 mg/dL Normal 70-99 [facility] Comment on above: Performed By: #### L 506.1001, L501.5200, L501.9985, L500.2500 #### [facility] [address] [place], [address] Potassium [Moles/Vol] 4.3 mmol/L Normal 3.3-5.1 [facility] Comment on above: Performed By: #### L 506.1001, L501.5200, L501.9985, L500.2500 #### [facility] [address] [place], [address] Sodium [Moles/Vol] 141 mmol/L Normal 133-145 [facility] Comment on above: Performed By: #### L 506.1001, L501.5200, L501.9985, L500.2500 #### [facility] [address] [place], [address] Urea nitrogen [Mass/Vol] 66 mg/dL High 4-19 [facility] Comment on above: Performed By: #### L 506.1001, L501.5200, L501.9985, L500.2500 #### [facility] [address] [place], [place], [id number] Carbon dioxide, total [Moles /volume] in Central venous bloodOrdered By: José Miguel Hankins on 10-10-2024 CO2 [Moles/Vol] 19.3 mmol/L Low 21.0-32.0 [facility] Chloride assayOrdered By: Chip Hankins on 10-10-2024 Chloride [Moles/Vol] 112 mmol/L High 98-108 [facility] Glomerular filtration rate ( GFR) estimation/1.73 sq m using serum, plasma, or whole bOrdered By: José Miguel Hankins on 10-10-2024 GFR/1.73 sq M.predicted among non-blacks MDRD (S/P/Bld) [Vol rate/Area] 32 mL/min/{1.73_m2} Low >60 [facility] Comment on above: mL/min/1.73m2 CKD-EP I Creatinine Equation (2020) Hemoglobin A1con 10-10-2024 HbA1c (Bld) [Mass fraction] 4.5 % Normal <=5.6 [facility] Comment on above: Result Comment: Norm al < 5.7 % Prediabetic 5.7 - 6.4 % Diabetic >or= 6.5 % Please note range changes. Performed By: #### L 506.1001, L501.5200, L501.9985, L500.2500 #### [facility] [address] [place], [place], [id number] Hemoglobin A1c percentageOrd ered By: José Miguel Hankins on 10-10-2024 HbA1c (Bld) [Mass fraction] 4.5 % <5.7 [facility] Comment on above: Normal < 5.7 % Predi abetic 5.7 - 6.4 % Diabetic >or= 6.5 % Please note range changes. Magnesiumon 10-10-2024 Magnesium [Mass/Vol] 2.3 mg/dL High 1.5-2.2 [facility] Comment on above: Performed By: #### L 506.1001, L501.5200, L501.9985, L500.2500 #### [facility] [address] [place], [address] Magnesium measurement (mass/ volume)Ordered By: José Miguel Hankins on 10-10-2024 Magnesium (Unsp spec) [Mass/Vol] 2.3 mg/dL High 1.5-2.2 [facility] Potassium measurement (mass/ volume)Ordered By: José Miguel Hankins on 10-10-2024 Potassium (Unsp spec) [Mass/Vol] 4.3 mmol/L 3.3-5.1 [facility] Serum creatinine measurement (mass/volume)Ordered By: José Miguel Hankins on 10-10-2024 Creatinine [Mass/Vol] 1.62 mg/dL High 0.70-1.20 [facility] Serum glucose measurement (m ass/volume)Ordered By: José Miguel Hankins on 10-10-2024 Glucose [Mass/Vol] 83 mg/dL 70-99 [facility] Serum or plasma calcium huyen urement (mass/volume)Ordered By: José Miguel Hankins on 10-10-2024 Calcium [Mass/Vol] 8.1 mg/dL 7.6-11.0 [facility] Serum or plasma urea nitroge n measurement (mass/volume)Ordered By: José Miguel Hankins on 10-10-2024 Urea nitrogen [Mass/Vol] 66 mg/dL High 4-19 [facility] Sodium levelOrdered By: Jimmie Hankins on 10-10-2024 Sodium [Moles/Vol] 141 mmol/L 133-145 [facility] Vitamin D,25 Hydroxyon 10-10 Vitamin D 25-OH 48.5 ng/mL Normal 30-100 [facility] Comment on above: Result Comment: Octavia min D Status Deficiency: <20 ng/mL (50nmol/L) Insufficiency: 20-30 ng/mL (50-75 nmol/L) Sufficiency: 30-100 ng/mL (75-250 nmol/L) Toxicity: >100 ng/mL (>250 nmol/L) Performed By: #### L 506.1001, L501.5200, L501.9985, L500.2500 #### [facility] [place], [address] Valeria 08-01-2024 BA Telephone (ERIC) MAIA NIETO ([id number]) 1945 F Date Time Provider Department 08/01/24 RAMAN CARUSO During your visit today, we recorded the following information about you: Raman Caruso DO 08/01/2024 5:44 PM Signed Folate low. Start Rx folic acid. DO Casper Randolph Melanie, LPN 08/02/2024 8:38 AM Signed Protonet message sent. I also left a message fro her to contact the office. DULCE Arcos Angela 08/02/2024 11:24 AM Signed Patient's daughter called stating the patient lives in [facility] and is asking if we are able to send the information to them. Please call daughter Cristina [phone] to advise. Kira Kaye LPN 08/02/2024 12:26 PM Signed I spoke with patient's nurse, Mattie, at [facility] and gave her orders for folic acid. Left message for patient's daughter as well. Kira Shirley LPN Allergies As of Date: 08/01/2024 Noted Allergy Reaction PENICILLINS 03/04/2019 2 - Rash 9 - Itching AMOXACILLIN (AMOXICILLIN) 09/21/2006 Date Reviewed: 06/12/2024 Reviewed by: Jing Gaytan, RN - Fully Assessed Reason for Visit: Results [95] Order(s):folic acid 1 mg tabletTake 1 tablet by mouth once daily.Disp: 90 tabletRfl: 3 Prescriptions as of 08/02/2024 - folic acid 1 mg tablet Take 1 tablet by mouth once daily. - aluminum-magnesium hydroxide-simethicon e (MAALOX,MYLANTA,MAG- AL PLUS) 200-200-20 mg/5 mL suspension Take 30 mL by mouth every 4 hours as needed. - mirtazapine (REMERON) 15 mg tablet Take 15 mg by mouth daily at bedtime. - ascorbic acid, vitamin C, (VITAMIN C) 500 mg tablet Take 500 mg by mouth once daily. - acetaminophen (TYLENOL) 650 mg suppository 650 mg by RECTAL route every 4 hours as needed. - aspirin 81 mg cap Take 1 capsule by mouth once daily. - bisacodyl (DULCOLAX) 10 mg supp 10 mg by RECTAL route once daily as needed for constipation. - docusate sodium (COLACE) 100 mg capsule Take 100 mg by mouth as needed for constipation. - sodium phosphate,mono-dibas ic (FLEET ENEMA RECTAL) 1 Dose by RECTAL route. PRN 2x per episode - vibegron (GEMTESA) 75 mg tablet Take 75 mg by mouth once daily. - glucagon (GLUCAGON EMERGENCY KIT, HUMAN,) 1 mg injection Inject 1 mg subcutaneously as needed. - dextrose (GLUCOSE GEL ORAL) Take 1 Dose by mouth as needed. - guaiFENesin (ROBITUSSIN) 100 mg/5 mL syrup Take 10 mL by mouth every 4 hours as needed. - loperamide HCl (IMODIUM) 2 mg tab Take 2 mg by mouth two times a week. Mon and Wed - melatonin 3 mg tablet Take 3 mg by mouth daily at bedtime. - HYDROcodone-acetamin ophen (NORCO) 5-325 mg per tablet Take 1 tablet by mouth every 12 hours. - acetaminophen 325 mg cap Take 650 mg by mouth every 4 hours as needed. - donepezil (ARICEPT) 5 mg tablet Take 10 mg by mouth daily at bedtime. - furosemide (LASIX) 20 mg tablet Take 20 mg by mouth once daily. - losartan (COZAAR) 25 mg tablet Take 50 mg by mouth once daily. - magnesium hydroxide (MILK OF MAGNESIA ORAL) Take 30 mL by mouth as needed. PRN - multivitamin (MULTIPLE VITAMIN ORAL) Take 1 tablet by mouth once daily. - oxybutynin ER (DITROPAN XL) 10 mg 24 hr tablet Take 10 mg by mouth once daily. - pantoprazole DR (PROTONIX) 40 mg tablet Take 1 tablet by mouth twice daily before meals (0600/1600). - carbidopa-levodopa CR (SINEMET CR) 25-100 mg per tablet Take 1 tablet by mouth twice daily. - potassium chloride (K-TAB) 10 mEq tablet Take 1 tablet by mouth once daily. Take with lasix - traZODone (DESYREL) 100 mg tablet Take 75 mg by mouth daily at bedtime. - ferrous sulfate 325 mg (65 mg iron) tablet Take 1 tablet by mouth daily with breakfast. - atorvastatin (LIPITOR) 10 mg tablet Take 1 tablet by mouth once daily - copper citrate 2 mg capsule Take 2 capsules by mouth once daily. - Cholecalciferol, Vitamin D3, 50 mcg (2,000 unit) cap Take 1 capsule by mouth once daily. Meds Comments as of 05/06/2019: 05/06/19 The medications are managed by this patient by: PATIENT and SON Natalia Elder, PharmD Problem List As Of Date 08/01/2024 Noted Resolved Calculus of kidney [N20.0] 11/09/2006 CHR PYELONEPHRITIS NOS [N11.9] 03/17/2008 URGE INCONTINENCE [N39.41] 03/17/2008 Hyperactivity of Bladder [N31.8] 03/26/2009 Anxiety [F41.9] 10/05/2017 GERD (gastroesophageal reflux disease) [K21.9] Postoperative hypertension [I97.3] 04/26/2019 Depression [F32.A] 12/23/2018 Overactive bladder [N32.81] Coronary artery disease involving [place]*12/27/2017 Restless legs syndrome [G25.81] 12/27/2017 Anemia due to stage 3b chronic kidney disease (*05/01/2018 Bronchitis [J40] 08/08/2018 04/08/2022 S/P AVR [Z95.2] 11/29/2018 GI bleed [K92.2] 12/05/2018 12/23/2018 ODELL (iron deficiency anemia) [D50.9] 12/05/2018 03/27/2020 Elevated troponin [R79.89] 12/06/2018 (more content not included)... Normal [facility] CBC W Auto Differential pane l (Bld)on 12-04-2023 Basophils (Bld) [#/Vol] 0.04 10*3/uL [facility] Basophils/100 WBC (Bld) 0.8 % C [facility] Differential cell count method Nom (Bld) Auto [facility] Eosinophils (Bld) [#/Vol] 0.22 10*3/uL [facility] Eosinophils/100 WBC (Bld) 4.6 % [facility] Erythrocyte distribution width (RBC) [Ratio] 12.8 % 11.5 - 15.0 % [facility] Hematocrit (Bld) [Volume fraction] 31.6 % Low 36.0 - 46.0 % [facility] Hemoglobin (Bld) [Mass/Vol] 9.9 g/dL Low 11.5 - 15.5 g/dL [facility] Immature granulocytes (Bld) [#/Vol] [facility] Immature granulocytes/100 WBC (Bld) 0.4 % [facility] Interpretation and review of laboratory results Abnormal [facility] Lymphocytes (Bld) [#/Vol] 0.97 10*3/uL Low [facility] Lymphocytes/100 WBC (Bld) 20.5 % [facility] MCH (RBC) [Entitic mass] 30.7 pg 26. 0 - 34.0 pg [facility] MCHC (RBC) [Mass/Vol] 31.3 g/dL 30.5 - 36.0 g/dL [facility] MCV (RBC) [Entitic vol] 98.1 fL 80.0 - 100.0 fL [facility] Monocytes (Bld) [#/Vol] 0.34 10*3/uL [facility] Monocytes/100 WBC (Bld) 7.2 % [facility] Neutrophils (Bld) [#/Vol] 3.15 10*3/uL [facility] Neutrophils/100 WBC (Bld) 66.5 % [facility] Nucleated RBC (Bld) [#/Vol] [facility] Nucleated RBC/100 WBC (Bld) [Ratio] 0.0 % /100 WBC [facility] Platelet mean volume (Bld) [Entitic vol] 11.0 fL 9.0 - 12.7 fL [facility] Platelets (Bld) [#/Vol] 191 10*3/uL [facility] RBC (Bld) [#/Vol] 3.22 10*6/uL Low 3.90 - 5.2 0 m/uL [facility] WBC (Bld) [#/Vol] 4.74 10*3/uL [facility] Basophil percentageOrdered B y: Ca Silva on 09-04-2023 Chloride [Moles/Vol] 112 mmol/L 98-107 [facility] Glucose [Mass/Vol] 77 mg/dL 74-106 [facility] Hemoglobin (Bld) [Mass/Vol] 8.5 g/dL 12.0-15.0 [facility] Potassium [Moles/Vol] 3.9 mmol/L 3.5-5.1 [facility] Sodium [Moles/Vol] 141 mmol/L 136-145 [facility] WBC (Bld) [#/Vol] 4.5 10*3/uL 4.4-11.0 [facility] Determination of erythrocyte mean corpuscular volume (MCV)Ordered By: Ca Silva on 09-04-2023 MCV (RBC) [Entitic vol] 100.4 fL 81-99 [facility] Erythrocyte distribution wid th ratioOrdered By: Ca Silva on 09-04-2023 Erythrocyte distribution width (RBC) [Ratio] 12.5 % 11.6-14.6 [facility] Erythrocyte distribution wid th standard deviationOrdered By: Ca Silva on 09-04-2023 Erythrocyte distribution width (RBC) [Entitic vol] 46.1 fL 35.1-43.9 [facility] Hematocrit Auto (Bld) [Volum e fraction]Ordered By: Ca Silva on 09-04-2023 Hematocrit (Bld) [Volume fraction] 26.3 % 37-47 [facility] - Chemistry and C hemistry - challengeOrdered By: Ca Silva on 09-04-2023 CO2 [Moles/Vol] 23.0 mmol/L 21.0-32.0 [facility] Urea nitrogen/Creatinine [Mass ratio] 24.8 mg/mg 10-20 [facility] - Hematology and Cell countsOrdered By: Ca Silva on 09-04-2023 MCH (RBC) [Entitic mass] 32.4 pg 27.0-32.0 [facility] MCHC (RBC) [Mass/Vol] 32.3 g/dL 32-36 [facility] Platelet mean volume (Bld) [Entitic vol] 11.3 fL 6.2-12.0 [facility] Platelets (Bld) [#/Vol] 152 10*3/uL 150-450 [facility] No Panel InformationOrdered By: Ca Silva on 09-04-2023 Estimated GFR (MDRD) Amer 46 mL/min >60 [facility] Comment on above: GFR Calc Estimated GFR (MDRD) Non-Af Amer 38 mL/min >60 [facility] Comment on above: Non- GFR Calc RBC Auto (Bld) [#/Vol]Ordere d By: Ca Silva on 09-04-2023 RBC (Bld) [#/Vol] 2.62 10*6/uL 4.2-5.4 [facility] Serum or plasma calcium huyen urement (mass/volume)Ordered By: Ca Silva on 09-04-2023 Calcium [Mass/Vol] 8.3 mg/dL 8.5-10.1 [facility] Serum or plasma creatinine m easurement (mass/volume)Ordered By: Ca Silva on 09-04-2023 Creatinine [Mass/Vol] 1.41 mg/dL 0.55-1.02 [facility] Comment on above: The validity of the calculated GFR & GFRAA in patients over 70 years has not been determined. Clinical correlation is essential. Serum or plasma thyroid stim ulating hormone (TSH) measurement (units/volume)Ordered By: Ca Silva on 09-04-2023 TSH Qn 2.26 uIU/mL 0.358-3.74 [facility] Serum or plasma urea nitroge n measurement (mass/volume)Ordered By: Ca Silva on 09-04-2023 Urea nitrogen [Mass/Vol] 35 mg/dL 7-18 [facility] Thin prep Papanicolaou smear with manual screeningOrdered By: Ca Silva on 09-04-2023 Thin prep Papanicolaou smear with manual screening 6 5-15 [facility] No Panel Informationon 08-11 BLANK _ [facility] Implant Date 04/29/2019 [facility] Model 5076 [employer] Novus [facility] PACEMAKER REMOTE CHECKon AV Delay Adaptive Paced Minimum (ms) 180 ms [facility] AV Delay Adaptive Sensed Minimum (ms) 150 ms [facility] AV Delay Adaptive Status DISABLED [facility] Battery Voltage (volts) 3.00 V C [facility] Evert RA Pacing Amplitude (volts) 1.75 V [facility] Evert RA Pacing Polarity BI [facility] Evert RA Pacing Pulse Width (ms) 0.4 ms [facility] Evert RA Sensing Amplitude (mvolts) 0.15 mV [facility] Evert RA Sensing Blanking Period (ms) 150 ms [facility] Evert RA Sensing Polarity BI [facility] Evert RA Sensing Refractory Period (ms) Auto [facility] Evert RV Pacing Amplitude (volts) 2 V [facility] Evert RV Pacing Polarity BI [facility] Evert RV Pacing Pulse Width (ms) 0.4 ms [facility] Evert RV Sensing Amplitude (mvolts) 0.9 mV [facility] Evert RV Sensing Blanking Period (ms) 200 ms [facility] Evert RV Sensing Polarity BI [facility] Hysteresis Rate (bpm) DISABLED [facility] Lead1 Mfg MDT [facility] Lead2 Mfg MDT [facility] Location RV [facility] Location RA [facility] Lower Rate (bpm) 60 {beats}/min [facility] Max Sensor Rate (bmp) 120 {beats}/min [facility] Model [id number] ESPIN[address] [facility] PM-Device Mfg MDAna [facility] [facility] PM-Percent Pacing (A) 15.48 % [facility] PM-Percent Pacing (V) 99.97 % [facility] PM-PMT Intervention DISABLED [facility] PM-PVC Intervention ENABLED [facility] PM-Rate Modulation Acceleration Reaction 30 s [facility] PM-Rate Modulation ADL Rate (bpm) 85 {beats}/min [facility] PM-Rate Modulation Deceleration Exercise [facility] PM-Rate Modulation [place] 3 [facility] PM-Rate Modulation Threshold MediumLow [facility] RA Bipolar Impedance ohms 399 ohm [facility] RA Unipolar Impedance ohms 285 ohm [facility] RV Bipolar Impedance ohms 456 ohm [facility] RV Unipolar Impedance 418 ohm [facility] Serial Number [id number] [facility] Serial Number [id number] [facility] Serial Number [id number] [facility] Thresh RA Capture Amplitude (volts) 1 V [facility] Thresh RA Capture Duration (ms) 0.4 ms [facility] Thresh RA Sensing Amplitude (mvolts) 1.5 mV [facility] Thresh RV Capture Amplitude (volts) 0.75 V [facility] Thresh RV Capture Duration (ms) 0.4 ms [facility] Thresh RV Sensing Amplitude (mvolts) 11.375 mV [facility] Tracking Rate (bpm) 130 {beats}/min [facility] No Panel Informationon 05-04 BLANK _ [facility] Implant Date 04/29/2019 [facility] Model 5076 CapSureFix Novus [facility] PACEMAKER REMOTE CHECKon AV Delay Adaptive Paced Minimum (ms) 180 ms [facility] AV Delay Adaptive Sensed Minimum (ms) 150 ms [facility] AV Delay Adaptive Status DISABLED [facility] Battery Voltage (volts) 3.00 V C [facility] Evert RA Pacing Amplitude (volts) 1.5 V [facility] Evert RA Pacing Polarity BI [facility] Evert RA Pacing Pulse Width (ms) 0.4 ms [facility] Evert RA Sensing Amplitude (mvolts) 0.15 mV [facility] Evert RA Sensing Blanking Period (ms) 150 ms [facility] Evert RA Sensing Polarity BI [facility] Evert RA Sensing Refractory Period (ms) Auto [facility] Evert RV Pacing Amplitude (volts) 2 V [facility] Evert RV Pacing Polarity BI [facility] Evert RV Pacing Pulse Width (ms) 0.4 ms [facility] Evert RV Sensing Amplitude (mvolts) 0.9 mV [facility] Evert RV Sensing Blanking Period (ms) 200 ms [facility] Evert RV Sensing Polarity BI [facility] Hysteresis Rate (bpm) DISABLED [facility] Lead1 Mfg T [facility] Lead2 Mfg SOFIA [facility] Location RV [facility] Location RA [facility] Lower Rate (bpm) 60 {beats}/min [facility] Max Sensor Rate (bmp) 120 {beats}/min [facility] Model [id number] Advis[address] ESPINAL [facility] PM-Device Jerica BLACK [facility] PM-Percent Pacing (A) 14.55 % [facility] PM-Percent Pacing (V) 99.97 % [facility] PM-PMT Intervention DISABLED [facility] PM-PVC Intervention ENABLED [facility] PM-Rate Modulation Acceleration Reaction 30 s [facility] PM-Rate Modulation ADL Rate (bpm) 85 {beats}/min [facility] PM-Rate Modulation Deceleration Exercise [facility] PM-Rate Modulation [place] 3 [facility] PM-Rate Modulation Threshold MediumLow [facility] RA Bipolar Impedance ohms 456 ohm [facility] RA Unipolar Impedance ohms 323 ohm [facility] RV Bipolar Impedance ohms 513 ohm [facility] RV Unipolar Impedance 456 ohm [facility] Serial Number [id number] [facility] Serial Number [id number] [facility] Serial Number [id number] [facility] Thresh RA Capture Amplitude (volts) 0.875 V [facility] Thresh RA Capture Duration (ms) 0.4 ms [facility] Thresh RA Sensing Amplitude (mvolts) 0.875 mV [facility] Thresh RV Capture Amplitude (volts) 0.75 V [facility] Thresh RV Capture Duration (ms) 0.4 ms [facility] Thresh RV Sensing Amplitude (mvolts) 11.375 mV [facility] Tracking Rate (bpm) 130 {beats}/min [facility] Basophil percentageOrdered B y: Ca Silva on 04-24-2023 Basophil percentage 0 SEEN /hpf 0-5 [facility] Bilirubin Test strip Ql (U)O rdered By: Ca Silva on 04-24-2023 Bilirubin Ql (U) Negative Negative [facility] Culture, urineOrdered By: Juan Antonio Silva on 04-24-2023 Bacteria identified Cx Nom (U) Escherichia coli [facility] Ketones Test strip Ql (U)Ord ered By: Ca Silva on 04-24-2023 Ketones Ql (U) 5 mg/dl Negative [facility] Mucus LM Ql (Urine sed)Order ed By: Ca Silva on 04-24-2023 Mucus Ql (Urine sed) 0 SEEN /hpf [facility] Nitrite Test strip Ql (U)Ord ered By: Ca Silva on 04-24-2023 Nitrite Ql (U) Positive Negative [facility] Protein Test strip Ql (U)Ord ered By: Ca Silva on 04-24-2023 Protein Ql (U) Negative Negative [facility] Squamous epithelial cells de tection in urine sediment by light microscopyOrdered By: Ca Silva on 04-24-2023 Epithelial cells.squamous LM Ql (Urine sed) 0-5 SEEN /hpf 5-10 [facility] Urine blood detectionOrdered By: Ca Silva on 04-24-2023 RBC Ql (U) Negative Negative [facility] RBC Ql (U) 0 SEEN /hpf 0-5 [facility] Urine clarityOrdered By: Sunny Silva on 04-24-2023 Clarity (U) Clear Clear [facility] Urine color determinationOrd ered By: Ca Silva on 04-24-2023 Color (U) Yellow Yellow [facility] Urine glucose detectionOrder ed By: Ca Silva on 04-24-2023 Glucose Ql (U) Normal mg/dl Normal [facility] Urine leukocyte esterase det ection by dipstickOrdered By: Ca Silva on 04-24-2023 Leukocyte esterase Test strip Ql (U) 25 /ul Negative [facility] Urine pHOrdered By: Ca paulino on 04-24-2023 pH (U) 6.0 [pH] 5.0 - 8.0 [facility] Urine sediment bacteria coun t by microscopy (number/high power field)Ordered By: Ca Silva on 04-24-2023 Bacteria LM.HPF (Urine sed) [#/Area] 1 /[HPF] None Seen [facility] Urine specific gravity measu rementOrdered By: Ca Silva on 04-24-2023 Specific gravity (U) [Rel density] 1.015 1.002-1.030 [facility] Urobilinogen Auto test strip Ql (U)Ordered By: Ca Silva on 04-24-2023 Urobilinogen Ql (U) Normal mg/dl Normal [facility] Serum or plasma C reactive p rotein measurement (mass/volume)Ordered By: Ca Silva on 04-17-2023 CRP [Mass/Vol] 26.90 mg/L 0.0-3.0 [facility] Comment on above: C-Reactive Protein ( CRP) provides useful information for thediagnosis, therapy and monitoring of inflammatory processesand associated diseases. For the evaluation of Relative Riskfor Cardiovascular Disease, a High Sensitivity CRP (HSCRP)should be ordered. Serum or plasma uric acid me asurement (mass/volume)Ordered By: Ca Silva on 04-17-2023 Urate [Mass/Vol] 7.6 mg/dL 2.6-6.0 [facility] Comment on above: The drugs N-Acetylcy steine and Metamizole may falsely depress this assay. Basophil percentageOrdered B y: Ca Silva on 02-20-2023 Chloride [Moles/Vol] 110 mmol/L 98-107 [facility] Glucose [Mass/Vol] 80 mg/dL 74-106 [facility] Potassium [Moles/Vol] 4.0 mmol/L 3.5-5.1 [facility] Sodium [Moles/Vol] 141 mmol/L 136-145 [facility] Laboratory - Chemistry and C hemistry - challengeOrdered By: Ca Silva on 02-20-2023 CO2 [Moles/Vol] 24.0 mmol/L 21.0-32.0 [facility] Magnesium [Mass/Vol] 2.3 mg/dL 1.6-2.6 [facility] Urea nitrogen/Creatinine [Mass ratio] 34.8 mg/mg 10-20 [facility] No Panel InformationOrdered By: Ca Silva on 02-20-2023 Estimated GFR (MDRD) Amer 46 mL/min >60 [facility] Comment on above: GFR Calc Estimated GFR (MDRD) Non-Af Amer 38 mL/min >60 [facility] Comment on above: Non- GFR Calc Serum or plasma calcium huyen urement (mass/volume)Ordered By: Ca Silva on 02-20-2023 Calcium [Mass/Vol] 8.1 mg/dL 8.5-10.1 [facility] Serum or plasma creatinine m easurement (mass/volume)Ordered By: Ca Silva on 02-20-2023 Creatinine [Mass/Vol] 1.41 mg/dL 0.55-1.02 [facility] Comment on above: The validity of the calculated GFR & GFRAA in patients over 70 years has not been determined. Clinical correlation is essential. Serum or plasma urea nitroge n measurement (mass/volume)Ordered By: Ca Silva on 02-20-2023 Urea nitrogen [Mass/Vol] 49 mg/dL 12-20 [facility] Thin prep Papanicolaou smear with manual screeningOrdered By: Ca Silva on 02-20-2023 Thin prep Papanicolaou smear with manual screening 10-17 [facility] COPPER BLOODon 12-14-2022 Copper [Mass/Vol] 101 ug/dL 80 - 155 ug/dL [facility] No Panel Informationon 12-14 BLANK _ [facility] Implant Date 04/29/2019 [facility] Model 5076 CapSureFix Novus [facility] PACEMAKER REMOTE CHECKon AV Delay Adaptive Paced Minimum (ms) 180 ms [facility] AV Delay Adaptive Sensed Minimum (ms) 150 ms [facility] AV Delay Adaptive Status DISABLED [facility] Battery Voltage (volts) 3.00 V [facility] Evert RA Pacing Amplitude (volts) 1.5 V [facility] Evert RA Pacing Polarity BI [facility] Evert RA Pacing Pulse Width (ms) 0.4 ms [facility] Evert RA Sensing Amplitude (mvolts) 0.15 mV [facility] Evert RA Sensing Blanking Period (ms) 150 ms [facility] Evert RA Sensing Polarity BI [facility] Evert RA Sensing Refractory Period (ms) Auto [facility] Evert RV Pacing Amplitude (volts) 2 V [facility] Evert RV Pacing Polarity BI [facility] Evert RV Pacing Pulse Width (ms) 0.4 ms [facility] Evert RV Sensing Amplitude (mvolts) 0.9 mV [facility] Evert RV Sensing Blanking Period (ms) 200 ms [facility] Evert RV Sensing Polarity BI [facility] Hysteresis Rate (bpm) DISABLED [facility] Lead1 Jerica BLACK [facility] Lead2 Jerica BLACK [facility] Location RV [facility] Location RA [facility] Lower Rate (bpm) 60 {beats}/min [facility] Max Sensor Rate (bmp) 120 {beats}/min [facility] Model [id number] [address] ESPINAL [facility] PM-Device Jerica BLACK [facility] PM-Percent Pacing (A) 16.12 % [facility] PM-Percent Pacing (V) 99.97 % [facility] PM-PMT Intervention DISABLED [facility] PM-PVC Intervention ENABLED [facility] PM-Rate Modulation Acceleration Reaction 30 s [facility] PM-Rate Modulation ADL Rate (bpm) 85 {beats}/min [facility] PM-Rate Modulation Deceleration Exercise [facility] PM-Rate Modulation [place] 3 [facility] PM-Rate Modulation Threshold MediumLow [facility] RA Bipolar Impedance ohms 418 ohm [facility] RA Unipolar Impedance ohms 304 ohm [facility] RV Bipolar Impedance ohms 437 ohm [facility] RV Unipolar Impedance 399 ohm [facility] Serial Number [id number] [facility] Serial Number [id number] [facility] Serial Number [id number] [facility] Thresh RA Capture Amplitude (volts) 0.875 V [facility] Thresh RA Capture Duration (ms) 0.4 ms [facility] Thresh RA Sensing Amplitude (mvolts) 1.5 mV [facility] Thresh RV Capture Amplitude (volts) 0.75 V [facility] Thresh RV Capture Duration (ms) 0.4 ms [facility] Thresh RV Sensing Amplitude (mvolts) 13.625 mV [facility] Tracking Rate (bpm) 130 {beats}/min [facility] FERRITIN BLDon 12-12-2022 Ferritin [Mass/Vol] 338.0 ng/mL High 14.7 - 2 05.1 ng/mL [facility] Iron and Iron binding capaci ty panelon 12-12-2022 Iron [Mass/Vol] 60 ug/dL 41 - 186 ug/dL [facility] Iron binding capacity [Mass/Vol] 258 ug/dL 232 - 386 ug/dL [facility] Iron/TIBC [Molar ratio] 23.3 % 15.0 - 57.0 % [facility] VITAMIN B12 BLOODon 12-13-19 Cobalamin (Vitamin B12) [Mass/Vol] 668 pg/mL 232 - 1,245 pg/mL [facility] C-REACTIVE PROTEIN (CRP)on 0 11-24-2022 CRP [Mass/Vol] <0.9 mg/dL [facility] CBC W Auto Differential pane l (Bld)on 11-23-2022 Basophils (Bld) [#/Vol] 0.03 10*3/uL <0.11 k/uL [facility] Basophils/100 WBC (Bld) 0.5 % C [facility] Differential cell count method Nom (Bld) Auto [facility] Eosinophils (Bld) [#/Vol] 0.20 10*3/uL <0.46 k/uL [facility] Eosinophils/100 WBC (Bld) 3.5 % [facility] Erythrocyte distribution width (RBC) [Ratio] 11.9 % 11.5 - 15.0 % [facility] Hematocrit (Bld) [Volume fraction] 35.5 % Low 36.0 - 46.0 % [facility] Hemoglobin (Bld) [Mass/Vol] 11.1 g/dL Low 11.5 - 15.5 g/dL [facility] Immature granulocytes (Bld) [#/Vol] <0.10 k/uL [facility] Immature granulocytes/100 WBC (Bld) 0.3 % [facility] Lymphocytes (Bld) [#/Vol] 0.97 10*3/uL Low 1.00 - 4.00 k/uL [facility] Lymphocytes/100 WBC (Bld) 17.0 % [facility] MCH (RBC) [Entitic mass] 32.1 pg 26. 0 - 34.0 pg [facility] MCHC (RBC) [Mass/Vol] 31.3 g/dL 30.5 - 36.0 g/dL [facility] MCV (RBC) [Entitic vol] 102.6 fL High 80.0 - 100.0 fL [facility] Monocytes (Bld) [#/Vol] 0.44 10*3/uL <0.87 k/uL [facility] Monocytes/100 WBC (Bld) 7.7 % C [facility] Neutrophils (Bld) [#/Vol] 4.06 10*3/uL 1.45 - 7.50 k/uL [facility] Neutrophils/100 WBC (Bld) 71.0 % [facility] Nucleated RBC (Bld) [#/Vol] <0.01 k/uL [facility] Nucleated RBC/100 WBC (Bld) [Ratio] 0.0 /100 WBC [facility] Platelet mean volume (Bld) [Entitic vol] 10.9 fL 9.0 - 12.7 fL [facility] Platelets (Bld) [#/Vol] 175 10*3/uL 150 - 400 k/uL [facility] RBC (Bld) [#/Vol] 3.46 10*6/uL Low 3.90 - 5.2 0 m/uL [facility] WBC (Bld) [#/Vol] 5.72 10*3/uL 3.70 - 11. 00 k/uL [facility] ESR Westergren method (Bld) [Velocity]on 11-23-2022 ESR (Bld) [Velocity] 27 mm/h High 0 - 20 mm/hr Cl [facility] XR Knee AP and Lateral and M erchantson 11-23-2022 IMPRESSION: No appreciable change. 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 TECHNIQUE: XR KNEE 3V AP/LAT/MERCHANT LT Laterality: LEFT Number of different views (projections): 3 COMPARISON: Radiographs dated 11/11/2021 RESULT: Left total knee arthroplasty in place with no evidence of hardware failure or loosening. 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 There is no soft tissue swelling. Limited evaluation of the right knee with no acute findings. No other significant abnormality. ----- DIVISION OF RADIOLOGY Provider, [facility] [place] - 11/23/2022 * * *Final Report* * * DATE OF EXAM: Nov 23 2022 3:26PM CRX [id number] - XR KNEE 3V AP/LAT/MERCHANT LT / PROCEDURE REASON: Status post revision of total replacement of left knee * * * * Physician Interpretation * * * * HISTORY: Status post revision of total replacement of left knee . TECHNIQUE: XR KNEE 3V AP/LAT/MERCHANT LT Laterality: LEFT Number of different views (projections): 3 COMPARISON: Radiographs dated 11/11/2021 RESULT: Left total knee arthroplasty in place with no evidence of hardware failure or loosening. 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 There is no soft tissue swelling. Limited evaluation of the right knee with no acute findings. No other significant abnormality. ----- IMPRESSION IMPRESSION: No appreciable change. Carbon Brusher Assembler: TIFFANY Transcribe Date/Time: Nov 23 2022 4:55P Dictated by : JORDI MIRANDA MD This examination was interpreted and the report reviewed and electronically signed by: JORDI MIRANDA MD on Nov 23 2022 5:01PM EST [facility] Radiology Study observation (narrative) Janie laureano [facility] XR Knee AP and Lateral and M erchantsOrdered By: [facility] Provider on 11-23-2022 [facility] Basophil percentageOrdered B y: Dr. Silva on 09-13-2022 Chloride [Moles/Vol] 108 mmol/L 98-107 [facility] Glucose [Mass/Vol] 79 mg/dL 74-106 [facility] Potassium [Moles/Vol] 4.4 mmol/L 3.5-5.1 [facility] Sodium [Moles/Vol] 139 mmol/L 136-145 [facility] Laboratory - Chemistry and C hemistry - challengeOrdered By: Dr. Silva on 09-13-2022 CO2 [Moles/Vol] 25.0 mmol/L 21.0-32.0 [facility] Urea nitrogen/Creatinine [Mass ratio] 36.2 mg/mg 10-20 [facility] No Panel InformationOrdered By: Dr. Silva on 09-13-2022 Estimated GFR (MDRD) Amer 52 mL/min >60 [facility] Comment on above: GFR Calc Estimated GFR (MDRD) Non-Af Amer 43 mL/min >60 [facility] Comment on above: Non- GFR Calc Serum or plasma calcium huyen urement (mass/volume)Ordered By: Dr. Silva on 09-13-2022 Calcium [Mass/Vol] 8.2 mg/dL 8.5-10.1 [facility] Serum or plasma creatinine m easurement (mass/volume)Ordered By: Dr. Silva on 09-13-2022 Creatinine [Mass/Vol] 1.27 mg/dL 0.55-1.02 [facility] Comment on above: The validity of the calculated GFR & GFRAA in patients over 70 years has not been determined. Clinical correlation is essential. Serum or plasma urea nitroge n measurement (mass/volume)Ordered By: Dr. Silva on 09-13-2022 Urea nitrogen [Mass/Vol] 46 mg/dL 7-18 [facility] Thin prep Papanicolaou smear with manual screeningOrdered By: Dr. Silva on 09-13-2022 Thin prep Papanicolaou smear with manual screening 6 5-15 [facility] Basophil percentageOrdered B y: Dr. Silva on 09-06-2022 Chloride [Moles/Vol] 111 mmol/L 98-107 [facility] Glucose [Mass/Vol] 77 mg/dL 74-106 [facility] Potassium [Moles/Vol] 4.2 mmol/L 3.5-5.1 [facility] Sodium [Moles/Vol] 141 mmol/L 136-145 [facility] WBC (Bld) [#/Vol] 4.9 10*3/uL 4.4-11.0 [facility] Blood erythrocytes count (nu mber/volume)Ordered By: Dr. Silva on 09-06-2022 RBC (Bld) [#/Vol] 2.43 10*6/uL 4.2-5.4 [facility] Blood hemoglobin measurement (mass/volume)Ordered By: Dr. Silva on 09-06-2022 Hemoglobin (Bld) [Mass/Vol] 8.2 g/dL 12.0-15.0 [facility] Blood platelet mean volumeOr dered By: Dr. Silva on 09-06-2022 Platelet mean volume (Bld) [Entitic vol] 10.7 fL 6.2-12.0 [facility] Determination of erythrocyte mean corpuscular volume (MCV)Ordered By: Dr. Silva on 09-06-2022 MCV (RBC) [Entitic vol] 109.5 fL 81-99 [facility] Hematocrit Auto (Bld) [Volum e fraction]Ordered By: Dr. Silva on 09-06-2022 Hematocrit (Bld) [Volume fraction] 26.6 % 37-47 [facility] Laboratory - Chemistry and C hemistry - challengeOrdered By: Dr. Silva on 09-06-2022 CO2 [Moles/Vol] 25.0 mmol/L 21.0-32.0 [facility] Urea nitrogen/Creatinine [Mass ratio] 37.1 mg/mg 10-20 [facility] Laboratory - Hematology and Cell countsOrdered By: Dr. Silva on 09-06-2022 Erythrocyte distribution width (RBC) [Entitic vol] 50.3 fL 35.1-43.9 [facility] Erythrocyte distribution width (RBC) [Ratio] 12.5 % 11.6-14.6 [facility] MCH (RBC) [Entitic mass] 33.7 pg 27.0-32.0 [facility] MCHC Auto (RBC) [Mass/Vol]Or dered By: Dr. Silva on 09-06-2022 MCHC (RBC) [Mass/Vol] 30.8 g/dL 32-36 [facility] No Panel InformationOrdered By: Dr. Silva on 09-06-2022 Estimated GFR (MDRD) Amer 54 mL/min >60 [facility] Comment on above: GFR Calc Estimated GFR (MDRD) Non-Af Amer 44 mL/min >60 [facility] Comment on above: Non- GFR Calc Platelets bldOrdered By: Dr. Silva on 09-06-2022 Platelets (Bld) [#/Vol] 196 10*3/uL 150-450 [facility] Serum or plasma calcium huyen urement (mass/volume)Ordered By: Dr. Silva on 09-06-2022 Calcium [Mass/Vol] 8.3 mg/dL 8.5-10.1 [facility] Serum or plasma creatinine m easurement (mass/volume)Ordered By: Dr. Silva on 09-06-2022 Creatinine [Mass/Vol] 1.24 mg/dL 0.55-1.02 [facility] Comment on above: The validity of the calculated GFR & GFRAA in patients over 70 years has not been determined. Clinical correlation is essential. Serum or plasma urea nitroge n measurement (mass/volume)Ordered By: Dr. Silva on 09-06-2022 Urea nitrogen [Mass/Vol] 46 mg/dL 7-18 [facility] Thin prep Papanicolaou smear with manual screeningOrdered By: Dr. Silva on 09-06-2022 Thin prep Papanicolaou smear with manual screening 5 5-15 [facility] No Panel Informationon 09-05 BLANK _ [facility] Implant Date 04/29/2019 [facility] Model 5076 [employer]SureFix Novus [facility] PACEMAKER CLINIC CHECKon AV Delay Adaptive Paced Minimum (ms) 180 ms [facility] AV Delay Adaptive Sensed Minimum (ms) 150 ms [facility] AV Delay Adaptive Status DISABLED [facility] Battery Voltage (volts) 3.00 V [facility] Evert RA Pacing Amplitude (volts) 1.5 V [facility] Evert RA Pacing Polarity BI [facility] Evert RA Pacing Pulse Width (ms) 0.4 ms [facility] Evert RA Sensing Amplitude (mvolts) 0.15 mV [facility] Evert RA Sensing Blanking Period (ms) 150 ms [facility] Evert RA Sensing Polarity BI [facility] Evert RA Sensing Refractory Period (ms) Auto [facility] Evert RV Pacing Amplitude (volts) 2 V [facility] Evert RV Pacing Polarity BI [facility] Evert RV Pacing Pulse Width (ms) 0.4 ms [facility] Evert RV Sensing Amplitude (mvolts) 0.9 mV [facility] Evert RV Sensing Blanking Period (ms) 200 ms [facility] Evert RV Sensing Polarity BI [facility] Demand Interval (ms) 664 [facility] Hysteresis Rate (bpm) DISABLED [facility] Lead1 Mfg MDT [facility] Lead2 Mfg MDT [facility] Location RV [facility] Location RA [facility] Lower Rate (bpm) 60 {beats}/min [facility] Max Sensor Rate (bmp) 120 {beats}/min [facility] Model [id number] Advis[address] ESPINAL [facility] Pacemaker Dependent? YES [facility] PM-Device Mfg MDT [facility] PM-Percent Pacing (A) 7.59 % [facility] PM-Percent Pacing (V) 99.95 % [facility] PM-PMT Intervention DISABLED [facility] PM-PVC Intervention ENABLED [facility] PM-Rate Modulation Acceleration Reaction 30 s [facility] PM-Rate Modulation ADL Rate (bpm) 85 {beats}/min [facility] PM-Rate Modulation Deceleration Exercise [facility] PM-Rate Modulation [place] 3 [facility] PM-Rate Modulation Threshold MediumLow [facility] RA Bipolar Impedance ohms 418 ohm [facility] RA Unipolar Impedance ohms 304 ohm [facility] Rhythm sinus with CHB [facility] RV Bipolar Impedance ohms 456 ohm [facility] RV Unipolar Impedance 380 ohm [facility] Serial Number [id number] [facility] Serial Number [id number] [facility] Serial Number [id number] [facility] Thresh RA Capture Amplitude (volts) 0.75 V [facility] Thresh RA Capture Duration (ms) 0.4 ms [facility] Thresh RA Sensing Amplitude (mvolts) 1.4 mV [facility] Thresh RV Capture Amplitude (volts) 0.5 V [facility] Thresh RV Capture Duration (ms) 0.4 ms [facility] Thresh RV Sensing Amplitude (mvolts) 9.375 mV [facility] Tracking Rate (bpm) 130 {beats}/min [facility] No Panel Informationon 09-01 BLANK _ [facility] Implant Date 04/29/2019 [facility] Model 5076 [employer] Novus [facility] PACEMAKER REMOTE CHECKon AV Delay Adaptive Paced Minimum (ms) 180 ms [facility] AV Delay Adaptive Sensed Minimum (ms) 150 ms [facility] AV Delay Adaptive Status DISABLED [facility] Battery Voltage (volts) 3.00 V [facility] Evert RA Pacing Amplitude (volts) 1.5 V [facility] Evert RA Pacing Polarity BI [facility] Evert RA Pacing Pulse Width (ms) 0.4 ms [facility] Evert RA Sensing Amplitude (mvolts) 0.15 mV [facility] Evert RA Sensing Blanking Period (ms) 150 ms [facility] Evert RA Sensing Polarity BI [facility] Evert RA Sensing Refractory Period (ms) Auto [facility] Evert RV Pacing Amplitude (volts) 2 V [facility] Evert RV Pacing Polarity BI [facility] Evert RV Pacing Pulse Width (ms) 0.4 ms [facility] Evert RV Sensing Amplitude (mvolts) 0.9 mV [facility] Evert RV Sensing Blanking Period (ms) 200 ms [facility] Evert RV Sensing Polarity BI [facility] Hysteresis Rate (bpm) DISABLED [facility] Lead1 Mfg MDT [facility] Lead2 Mfg MDT [facility] Location RV [facility] Location RA [facility] Lower Rate (bpm) 60 {beats}/min [facility] Max Sensor Rate (bmp) 120 {beats}/min [facility] Model [id number] [address] ESPINAL [facility] PM-Device Mfg MDAna [facility] PM-Percent Pacing (A) 2.07 % [facility] PM-Percent Pacing (V) 99.9 % [facility] PM-PMT Intervention DISABLED [facility] PM-PVC Intervention ENABLED [facility] PM-Rate Modulation Acceleration Reaction 30 s [facility] PM-Rate Modulation ADL Rate (bpm) 85 {beats}/min [facility] PM-Rate Modulation Deceleration Exercise [facility] PM-Rate Modulation [place] 3 [facility] PM-Rate Modulation Threshold MediumLow [facility] RA Bipolar Impedance ohms 418 ohm [facility] RA Unipolar Impedance ohms 285 ohm [facility] RV Bipolar Impedance ohms 437 ohm [facility] RV Unipolar Impedance 380 ohm [facility] Serial Number [id number] [facility] Serial Number [id number] [facility] Serial Number [id number] [facility] Thresh RA Capture Amplitude (volts) 1 V [facility] Thresh RA Capture Duration (ms) 0.4 ms [facility] Thresh RA Sensing Amplitude (mvolts) 1.25 mV [facility] Thresh RV Capture Amplitude (volts) 0.875 V [facility] Thresh RV Capture Duration (ms) 0.4 ms [facility] Thresh RV Sensing Amplitude (mvolts) 9.375 mV [facility] Tracking Rate (bpm) 130 {beats}/min [facility] Basophil percentageOrdered B y: Dr. Silva on 08-30-2022 Chloride [Moles/Vol] 113 mmol/L 98-107 [facility] Glucose [Mass/Vol] 90 mg/dL 74-106 [facility] Potassium [Moles/Vol] 4.3 mmol/L 3.5-5.1 [facility] Sodium [Moles/Vol] 138 mmol/L 136-145 [facility] WBC (Bld) [#/Vol] 5.0 10*3/uL 4.4-11.0 [facility] Blood erythrocytes count (nu mber/volume)Ordered By: Dr. Silva on 08-30-2022 RBC (Bld) [#/Vol] 2.66 10*6/uL 4.2-5.4 [facility] Blood hemoglobin measurement (mass/volume)Ordered By: Dr. Silva on 08-30-2022 Hemoglobin (Bld) [Mass/Vol] 8.8 g/dL 12.0-15.0 [facility] Blood platelet mean volumeOr dered By: Dr. Silva on 08-30-2022 Platelet mean volume (Bld) [Entitic vol] 10.0 fL 6.2-12.0 [facility] Determination of erythrocyte mean corpuscular volume (MCV)Ordered By: Dr. Silva on 08-30-2022 MCV (RBC) [Entitic vol] 107.9 fL 81-99 [facility] Hematocrit Auto (Bld) [Volum e fraction]Ordered By: Dr. Silva on 08-30-2022 Hematocrit (Bld) [Volume fraction] 28.7 % 37-47 [facility] Laboratory - Chemistry and C hemistry - challengeOrdered By: Dr. Silva on 08-30-2022 CO2 [Moles/Vol] 21.0 mmol/L 21.0-32.0 [facility] Urea nitrogen/Creatinine [Mass ratio] 22.8 mg/mg 10-20 [facility] Laboratory - Hematology and Cell countsOrdered By: Dr. Silva on 08-30-2022 Erythrocyte distribution width (RBC) [Entitic vol] 51.6 fL 35.1-43.9 [facility] Erythrocyte distribution width (RBC) [Ratio] 12.9 % 11.6-14.6 [facility] MCH (RBC) [Entitic mass] 33.1 pg 27.0-32.0 [facility] Auto (RBC) [Mass/Vol]Or dered By: Dr. Silva on 08-30-2022 MCHC (RBC) [Mass/Vol] 30.7 g/dL 32-36 [facility] No Panel InformationOrdered By: Dr. Silva on 08-30-2022 Estimated GFR (MDRD) Amer 59 mL/min >60 [facility] Comment on above: GFR Calc Estimated GFR (MDRD) Non-Af Amer 49 mL/min >60 [facility] Comment on above: Non- GFR Calc Platelets bldOrdered By: Dr. Silva on 08-30-2022 Platelets (Bld) [#/Vol] 235 10*3/uL 150-450 [facility] Serum or plasma albumin huyen urement (mass/volume)Ordered By: Dr. Silva on 08-30-2022 Albumin [Mass/Vol] 2.3 g/dL 3.2-5.0 [facility] Serum or plasma calcium huyen urement (mass/volume)Ordered By: Dr. Silva on 08-30-2022 Calcium [Mass/Vol] 8.1 mg/dL 8.5-10.1 [facility] Serum or plasma creatinine m easurement (mass/volume)Ordered By: Dr. Silva on 08-30-2022 Creatinine [Mass/Vol] 1.14 mg/dL 0.55-1.02 [facility] Comment on above: The validity of the calculated GFR & GFRAA in patients over 70 years has not been determined. Clinical correlation is essential. Serum or plasma urea nitroge n measurement (mass/volume)Ordered By: Dr. Silva on 08-30-2022 Urea nitrogen [Mass/Vol] 26 mg/dL 7-18 [facility] Thin prep Papanicolaou smear with manual screeningOrdered By: Dr. Silva on 08-30-2022 Thin prep Papanicolaou smear with manual screening 4 5-15 [facility] Basophil percentageOrdered B y: Dr. Silva on 08-24-2022 Chloride [Moles/Vol] 114 mmol/L 98-107 [facility] Cholesterol [Mass/Vol] 79 mg/dL <200 [facility] Comment on above: <200 mg/dL Desirable 200-240 mg/dL Borderline >240 mg/dL High Risk Glucose [Mass/Vol] 79 mg/dL 74-106 [facility] Potassium [Moles/Vol] 4.0 mmol/L 3.5-5.1 [facility] Sodium [Moles/Vol] 140 mmol/L 136-145 [facility] Triglyceride [Mass/Vol] 71 mg/dL <199 [facility] Comment on above: The drugs N-Acetylcy steine and Metamizole may falsely depress this assay.Serum Triglycerides Reference Interval Normal <150 mg/dL Borderline high 150 - 199 mg/dL High 200 - 499 mg/dL Very High > or = 500 mg/dL WBC (Bld) [#/Vol] 6.3 10*3/uL 4.4-11.0 [facility] Blood erythrocytes count (nu mber/volume)Ordered By: Dr. Silva on 08-24-2022 RBC (Bld) [#/Vol] 2.58 10*6/uL 4.2-5.4 [facility] Blood hemoglobin measurement (mass/volume)Ordered By: Dr. Silva on 08-24-2022 Hemoglobin (Bld) [Mass/Vol] 8.7 g/dL 12.0-15.0 [facility] Blood platelet mean volumeOr dered By: Dr. Silva on 08-24-2022 Platelet mean volume (Bld) [Entitic vol] 9.8 fL 6.2-12.0 [facility] Determination of erythrocyte mean corpuscular volume (MCV)Ordered By: Dr. Silva on 08-24-2022 MCV (RBC) [Entitic vol] 107.4 fL 81-99 [facility] Hematocrit Auto (Bld) [Volum e fraction]Ordered By: Dr. Silva on 08-24-2022 Hematocrit (Bld) [Volume fraction] 27.7 % 37-47 [facility] Laboratory - Chemistry and C hemistry - challengeOrdered By: Dr. Silva on 08-24-2022 CO2 [Moles/Vol] 19.0 mmol/L 21.0-32.0 [facility] Cobalamin (Vitamin B12) [Mass/Vol] 1354 pg/mL 211-911 [facility] Urea nitrogen/Creatinine [Mass ratio] 20.6 mg/mg 10-20 [facility] Laboratory - Hematology and Cell countsOrdered By: Dr. Silva on 08-24-2022 Erythrocyte distribution width (RBC) [Entitic vol] 52.1 fL 35.1-43.9 [facility] Erythrocyte distribution width (RBC) [Ratio] 13.3 % 11.6-14.6 [facility] MCH (RBC) [Entitic mass] 33.7 pg 27.0-32.0 [facility] Laboratory - Microbiology an d Antimicrobial susceptibilityOrdered By: Dr. Albright on 08-24-2022 Bacteria identified Cx Nom (Bld) No growth in 5 days. [facility] MCHC Auto (RBC) [Mass/Vol]Or dered By: Dr. Silva on 08-24-2022 MCHC (RBC) [Mass/Vol] 31.4 g/dL 32-36 [facility] No Panel InformationOrdered By: Dr. Silva on 08-24-2022 Estimated GFR (MDRD) Amer 64 mL/min >60 [facility] Comment on above: GFR Calc Estimated GFR (MDRD) Non-Af Amer 53 mL/min >60 [facility] Comment on above: Non- GFR Calc Thyroid Stimulating Hormone (TSH) 3.32 uIU/mL 0.358-3.74 [facility] Vitamin D 25-Hydroxy 67.4 ng/mL [facility] Comment on above: Vitamin D 25(OH) Sta tus Range Deficiency <20 ng/mL (50nmol/L) Insufficiency 20 - 30 ng/mL (50 - 75 nmol/L) Sufficiency 30 - 100 ng/mL (75 - 250 nmol/L) Toxicity >100 ng/mL (>250 nmol/L) Platelets bldOrdered By: Dr. Silva on 08-24-2022 Platelets (Bld) [#/Vol] 174 10*3/uL 150-450 [facility] Serum or plasma calcium huyen urement (mass/volume)Ordered By: Dr. Silva on 08-24-2022 Calcium [Mass/Vol] 8.0 mg/dL 8.5-10.1 [facility] Serum or plasma cholesterol in HDL measurement (mass/volume)Ordered By: Dr. Silva on 08-24-2022 Cholesterol in HDL [Mass/Vol] 46 mg/dL >40 [facility] Comment on above: The drugs N-Acetylcy steine and Metamizole may falsely depress this assay. Reference Range HDL <40 mg/dL Low HDL Cholesterol HDL >or= 60 mg/dL High HDL Cholesterol Serum or plasma cholesterol in VLDL measurement (mass/volume)Ordered By: Dr. Silva on 08-24-2022 Cholesterol in VLDL [Mass/Vol] 14 mg/dL 5-40 [facility] Serum or plasma creatinine m easurement (mass/volume)Ordered By: Dr. Silva on 08-24-2022 Creatinine [Mass/Vol] 1.07 mg/dL 0.55-1.02 [facility] Comment on above: The validity of the calculated GFR & GFRAA in patients over 70 years has not been determined. Clinical correlation is essential. Serum or plasma low density lipoprotein (LDL) cholesterol measurement (mass/volume)Ordered By: Dr. Silva on 08-24-2022 Cholesterol in LDL [Mass/Vol] 19 mg/dL 0-130 [facility] Serum or plasma urea nitroge n measurement (mass/volume)Ordered By: Dr. Silva on 08-24-2022 Urea nitrogen [Mass/Vol] 22 mg/dL 7-18 [facility] Thin prep Papanicolaou smear with manual screeningOrdered By: Dr. Silva on 08-24-2022 Thin prep Papanicolaou smear with manual screening 7 5-15 [facility] Absolute lymphocyte countOrd ered By: Dr. Andrade on 08-23-2022 Lymphocytes Auto (Unsp spec) [#/Vol] 1.10 10*3/uL 0.83-4.51 [facility] Basophil percentageOrdered B y: Dr. Andrade on 08-23-2022 Basophils/100 WBC (Bld) 0.4 % 0-1 [facility] Chloride [Moles/Vol] 115 mmol/L 98-107 [facility] Eosinophils/100 WBC (Bld) 3.7 % 0-5 [facility] Glucose [Mass/Vol] 87 mg/dL 74-106 [facility] Neutrophils (Bld) [#/Vol] 5.2 10*3/uL 2.0-7.7 [facility] Neutrophils/100 WBC (Bld) 73.5 % 47-70 [facility] Potassium [Moles/Vol] 3.5 mmol/L 3.5-5.1 [facility] Sodium [Moles/Vol] 140 mmol/L 136-145 [facility] WBC (Bld) [#/Vol] 7.1 10*3/uL 4.4-11.0 [facility] Blood erythrocytes count (nu mber/volume)Ordered By: Dr. Andrade on 08-23-2022 RBC (Bld) [#/Vol] 2.62 10*6/uL 4.2-5.4 [facility] Blood hemoglobin measurement (mass/volume)Ordered By: Dr. Andrade on 08-23-2022 Hemoglobin (Bld) [Mass/Vol] 8.9 g/dL 12.0-15.0 [facility] Blood lymphocytes/100 leukoc ytesOrdered By: Dr. Andrade on 08-23-2022 Lymphocytes/100 WBC (Bld) 15.5 % 19-41 [facility] Blood monocytes/100 leukocyt esOrdered By: Dr. Andrade on 08-23-2022 Monocytes/100 WBC (Bld) 6.3 % 0-10 [facility] Blood platelet mean volumeOr dered By: Dr. Andrade on 08-23-2022 Platelet mean volume (Bld) [Entitic vol] 9.6 fL 6.2-12.0 [facility] Determination of erythrocyte mean corpuscular volume (MCV)Ordered By: Dr. Andrade on 08-23-2022 MCV (RBC) [Entitic vol] 105.3 fL 81-99 [facility] Hematocrit Auto (Bld) [Volum e fraction]Ordered By: Dr. Andrade on 08-23-2022 Hematocrit (Bld) [Volume fraction] 27.6 % 37-47 [facility] Laboratory - Chemistry and C hemistry - challengeOrdered By: Dr. Andrade on 08-23-2022 CO2 [Moles/Vol] 19.0 mmol/L 21.0-32.0 [facility] Magnesium [Mass/Vol] 2.3 mg/dL 1.6-2.6 [facility] Urea nitrogen/Creatinine [Mass ratio] 20.4 mg/mg 10-20 [facility] Laboratory - Hematology and Cell countsOrdered By: Dr. Andrade on 08-23-2022 Erythrocyte distribution width (RBC) [Entitic vol] 51.6 fL 35.1-43.9 [facility] Erythrocyte distribution width (RBC) [Ratio] 13.2 % 11.6-14.6 [facility] Immature granulocytes/100 WBC (Bld) 0.600 % 0.0-0.9 [facility] Comment on above: IG% - Immature Granu locytes (promyelocytes, myelocytes and metamyelocytes) > 1% indicates that a LEFT SHIFT is Present. MCH (RBC) [Entitic mass] 34.0 pg 27.0-32.0 [facility] Nucleated RBC/100 WBC (Bld) [Ratio] 0 % 0-5 [facility] MCHC Auto (RBC) [Mass/Vol]Or dered By: Dr. Andrade on 08-23-2022 MCHC (RBC) [Mass/Vol] 32.2 g/dL 32-36 [facility] No Panel InformationOrdered By: Dr. Andrade on 08-23-2022 Estimated Creatinine Clearance Calc 33.41 ml/min [facility] Estimated GFR (MDRD) Amer 63 mL/min >60 [facility] Comment on above: GFR Calc Estimated GFR (MDRD) Non-Af Amer 52 mL/min >60 [facility] Comment on above: Non- GFR Calc Platelets bldOrdered By: Dr. Andrade on 08-23-2022 Platelets (Bld) [#/Vol] 170 10*3/uL 150-450 [facility] Serum or plasma calcium huyen urement (mass/volume)Ordered By: Dr. Andrade on 08-23-2022 Calcium [Mass/Vol] 7.7 mg/dL 8.5-10.1 [facility] Serum or plasma creatinine m easurement (mass/volume)Ordered By: Dr. Andrade on 08-23-2022 Creatinine [Mass/Vol] 1.08 mg/dL 0.55-1.02 [facility] Comment on above: The validity of the calculated GFR & GFRAA in patients over 70 years has not been determined. Clinical correlation is essential. Serum or plasma urea nitroge n measurement (mass/volume)Ordered By: Dr. Andrade on 08-23-2022 Urea nitrogen [Mass/Vol] 22 mg/dL 7-18 [facility] Thin prep Papanicolaou smear with manual screeningOrdered By: Dr. Andrade on 08-23-2022 Thin prep Papanicolaou smear with manual screening 6 5-15 [facility] Culture, urineOrdered By: Dr Brayden Albright on 08-21-2022 Bacteria identified Cx Nom (U) Culture exhibits no growth. [facility] Basophil percentageOrdered B y: Dr. Kimball on 08-20-2022 Basophil percentage 2.8 mg/dL 2.5-4.9 [facility] Absolute lymphocyte countOrd ered By: ED PROVIDER on 08-19-2022 Lymphocytes Auto (Unsp spec) [#/Vol] 0.98 10*3/uL 0.83-4.51 [facility] Basophil percentageOrdered B y: Dr. Albright on 08-19-2022 Basophil percentage 0 SEEN /hpf 0-5 [facility] Lactate [Moles/Vol] 1.1 mmol/L 0.4-2.0 [facility] Basophil percentageOrdered B y: ED PROVIDER on 08-19-2022 Basophils/100 WBC (Bld) 0.2 % 0-1 [facility] Chloride [Moles/Vol] 96 mmol/L 98-107 [facility] Eosinophils/100 WBC (Bld) 1.0 % 0-5 [facility] Glucose [Mass/Vol] 110 mg/dL 74-106 [facility] Comment on above: Fasting Glucose resu lt from 100 to 125 mg/dL suggests IMPAIRED HOMEOSTASIS per A.D.A. criteria. Neutrophils (Bld) [#/Vol] 6.1 10*3/uL 2.0-7.7 [facility] Neutrophils/100 WBC (Bld) 74.5 % 47-70 [facility] Potassium [Moles/Vol] 3.1 mmol/L 3.5-5.1 [facility] Sodium [Moles/Vol] 127 mmol/L 136-145 [facility] WBC (Bld) [#/Vol] 8.2 10*3/uL 4.4-11.0 [facility] Bilirubin Test strip Ql (U)O rdered By: Dr. Albright on 08-19-2022 Bilirubin Ql (U) Negative Negative [facility] Blood erythrocytes count (nu mber/volume)Ordered By: ED PROVIDER on 08-19-2022 RBC (Bld) [#/Vol] 3.10 10*6/uL 4.2-5.4 [facility] Blood hemoglobin measurement (mass/volume)Ordered By: ED PROVIDER on 08-19-2022 Hemoglobin (Bld) [Mass/Vol] 10.2 g/dL 12.0-15.0 [facility] Blood lymphocytes/100 leukoc ytesOrdered By: ED PROVIDER on 08-19-2022 Lymphocytes/100 WBC (Bld) 12.0 % 19-41 [facility] Blood monocytes/100 leukocyt esOrdered By: ED PROVIDER on 08-19-2022 Monocytes/100 WBC (Bld) 10.7 % 0-10 [facility] Blood platelet mean volumeOr dered By: ED PROVIDER on 08-19-2022 Platelet mean volume (Bld) [Entitic vol] 9.8 fL 6.2-12.0 [facility] Determination of erythrocyte mean corpuscular volume (MCV)Ordered By: ED PROVIDER on 08-19-2022 MCV (RBC) [Entitic vol] 98.1 fL 81-99 [facility] Hematocrit Auto (Bld) [Volum e fraction]Ordered By: ED PROVIDER on 08-19-2022 Hematocrit (Bld) [Volume fraction] 30.4 % 37-47 [facility] Ketones Test strip Ql (U)Ord ered By: Dr. Albright on 08-19-2022 Ketones Ql (U) Negative Negative [facility] Laboratory - Chemistry and C hemistry - challengeOrdered By: ED PROVIDER on 08-19-2022 CO2 [Moles/Vol] 21.0 mmol/L 21.0-32.0 [facility] Urea nitrogen/Creatinine [Mass ratio] 22.8 mg/mg 10-20 [facility] Laboratory - Hematology and Cell countsOrdered By: ED PROVIDER on 08-19-2022 Erythrocyte distribution width (RBC) [Entitic vol] 43.8 fL 35.1-43.9 [facility] Erythrocyte distribution width (RBC) [Ratio] 12.1 % 11.6-14.6 [facility] Immature granulocytes/100 WBC (Bld) 1.600 % 0.0-0.9 [facility] Comment on above: IG% - Immature Granu locytes (promyelocytes, myelocytes and metamyelocytes) > 1% indicates that a LEFT SHIFT is Present. MCH (RBC) [Entitic mass] 32.9 pg 27.0-32.0 [facility] Nucleated RBC/100 WBC (Bld) [Ratio] 0 % 0-5 [facility] MCHC Auto (RBC) [Mass/Vol]Or dered By: ED PROVIDER on 08-19-2022 MCHC (RBC) [Mass/Vol] 33.6 g/dL 32-36 [facility] [place] Mucus LM Ql (Urine sed)Order ed By: Dr. Albright on 08-19-2022 Mucus Ql (Urine sed) 0 SEEN /hpf [facility] [place] Nitrite Test strip Ql (U)Ord ered By: Dr. Albright on 08-19-2022 Nitrite Ql (U) Negative Negative [facility] No Panel InformationOrdered By: ED PROVIDER on 08-19-2022 Estimated Creatinine Clearance Calc 16.47 ml/min [facility] Estimated GFR (MDRD) Amer 28 mL/min >60 [facility] Comment on above: GFR Calc Estimated GFR (MDRD) Non-Af Amer 23 mL/min >60 [facility] Comment on above: Non- GFR Calc Platelets bldOrdered By: ED PROVIDER on 08-19-2022 Platelets (Bld) [#/Vol] 183 10*3/uL 150-450 [facility] Protein Test strip Ql (U)Ord ered By: Dr. Albright on 08-19-2022 Protein Ql (U) Negative Negative [facility] Serum or plasma calcium huyen urement (mass/volume)Ordered By: ED PROVIDER on 08-19-2022 Calcium [Mass/Vol] 8.7 mg/dL 8.5-10.1 [facility] Serum or plasma creatinine m easurement (mass/volume)Ordered By: ED PROVIDER on 08-19-2022 Creatinine [Mass/Vol] 2.19 mg/dL 0.55-1.02 [facility] [place] Comment on above: The validity of the calculated GFR & GFRAA in patients over 70 years has not been determined. Clinical correlation is essential. Serum or plasma urea nitroge n measurement (mass/volume)Ordered By: ED PROVIDER on 08-19-2022 Urea nitrogen [Mass/Vol] 50 mg/dL 7-18 [facility] Squamous epithelial cells de tection in urine sediment by light microscopyOrdered By: Dr. Albright on 08-19-2022 Epithelial cells.squamous LM Ql (Urine sed) 0-5 SEEN /hpf 5-10 [facility] Stool gastrointestinal hemog lobin detection by immunologic methodOrdered By: Dr. Albright on 08-19-2022 Lower GI hemoglobin IA Ql (Stl) [facility] Thin prep Papanicolaou smear with manual screeningOrdered By: ED PROVIDER on 08-19-2022 Thin prep Papanicolaou smear with manual screening 10 5-15 [facility] Urine blood detectionOrdered By: Dr. Albright on 08-19-2022 RBC Ql (U) Negative Negative [facility] RBC Ql (U) 0 SEEN /hpf 0-5 [facility] Urine clarityOrdered By: Dr. Albright on 08-19-2022 Clarity (U) Sl. Cloudy Clear [facility] Urine color determinationOrd ered By: Dr. Albright on 08-19-2022 Color (U) Yellow Yellow [facility] Urine glucose detectionOrder ed By: Dr. Albright on 08-19-2022 Glucose Ql (U) Normal mg/dl Normal [facility] Urine leukocyte esterase det ection by dipstickOrdered By: Dr. Albright on 08-19-2022 Leukocyte esterase Test strip Ql (U) Negative Negative [facility] Urine pHOrdered By: Dr. Ronnie tom on 08-19-2022 pH (U) 6.0 [pH] 5.0 - 8.0 [facility] Urine sediment bacteria coun t by microscopy (number/high power field)Ordered By: Dr. Albright on 08-19-2022 Bacteria LM.HPF (Urine sed) [#/Area] 0 /[HPF] None Seen [facility] Urine specific gravity measu rementOrdered By: Dr. Albright on 08-19-2022 Specific gravity (U) [Rel density] 1.010 1.002-1.030 [facility] Urobilinogen Auto test strip Ql (U)Ordered By: Dr. Albright on 08-19-2022 Urobilinogen Ql (U) Normal mg/dl Normal [facility] [place] Culture, urineOrdered By: Dr Brayden Yun on 08-15-2022 Bacteria identified Cx Nom (U) Escherichia coli [facility] Absolute lymphocyte countOrd ered By: Dr. Yun on 08-12-2022 Lymphocytes Auto (Unsp spec) [#/Vol] 0.75 10*3/uL 0.83-4.51 [facility] Basophil percentageOrdered B y: Dr. Yun on 08-12-2022 Basophil percentage 5-10 SEEN /hpf 0-5 [facility] Basophils/100 WBC (Bld) 0.2 % 0-1 [facility] Chloride [Moles/Vol] 99 mmol/L 98-107 [facility] Eosinophils/100 WBC (Bld) 0.1 % 0-5 [facility] Glucose [Mass/Vol] 159 mg/dL 74-106 [facility] Comment on above: Fasting Glucose resu lt greater than or equal to 126 mg/dL suggests DIABETES MELLITUS per A.D.A. criteria. Neutrophils (Bld) [#/Vol] 10.0 10*3/uL 2.0-7.7 [facility] Neutrophils/100 WBC (Bld) 88.3 % 47-70 [facility] Potassium [Moles/Vol] 3.1 mmol/L 3.5-5.1 [facility] [place] Sodium [Moles/Vol] 136 mmol/L 136-145 [facility] WBC (Bld) [#/Vol] 11.3 10*3/uL 4.4-11.0 [facility] Bilirubin Test strip Ql (U)O rdered By: Dr. Yun on 08-12-2022 Bilirubin Ql (U) Negative Negative [facility] Blood erythrocytes count (nu mber/volume)Ordered By: Dr. Yun on 08-12-2022 RBC (Bld) [#/Vol] 3.84 10*6/uL 4.2-5.4 [facility] Blood hemoglobin measurement (mass/volume)Ordered By: Dr. Yun on 08-12-2022 Hemoglobin (Bld) [Mass/Vol] 12.9 g/dL 12.0-15.0 [facility] Blood lymphocytes/100 leukoc ytesOrdered By: Dr. Yun on 08-12-2022 Lymphocytes/100 WBC (Bld) 6.6 % 19-41 [facility] Blood monocytes/100 leukocyt esOrdered By: Dr. Yun on 08-12-2022 Monocytes/100 WBC (Bld) 4.4 % 0-10 [facility] Blood platelet mean volumeOr dered By: Dr. Yun on 08-12-2022 Platelet mean volume (Bld) [Entitic vol] 11.0 fL 6.2-12.0 [facility] Determination of erythrocyte mean corpuscular volume (MCV)Ordered By: Dr. Yun on 08-12-2022 MCV (RBC) [Entitic vol] 98.4 fL 81-99 [facility] Hematocrit Auto (Bld) [Volum e fraction]Ordered By: Dr. Yun on 08-12-2022 Hematocrit (Bld) [Volume fraction] 37.8 % 37-47 [facility] Ketones Test strip Ql (U)Ord ered By: Dr. Yun on 08-12-2022 Ketones Ql (U) Negative Negative [facility] Laboratory - Chemistry and C hemistry - challengeOrdered By: Dr. Yun on 08-12-2022 CO2 [Moles/Vol] 22.0 mmol/L 21.0-32.0 [facility] Urea nitrogen/Creatinine [Mass ratio] 30.8 mg/mg 10-20 [facility] Laboratory - Hematology and Cell countsOrdered By: Dr. Yun on 08-12-2022 Erythrocyte distribution width (RBC) [Entitic vol] 44.9 fL 35.1-43.9 [facility] Erythrocyte distribution width (RBC) [Ratio] 12.5 % 11.6-14.6 [facility] Immature granulocytes/100 WBC (Bld) 0.400 % 0.0-0.9 [facility] Comment on above: IG% - Immature Granu locytes (promyelocytes, myelocytes and metamyelocytes) > 1% indicates that a LEFT SHIFT is Present. MCH (RBC) [Entitic mass] 33.6 pg 27.0-32.0 [facility] Nucleated RBC/100 WBC (Bld) [Ratio] 0 % 0-5 [facility] MCHC Auto (RBC) [Mass/Vol]Or dered By: Dr. Yun on 08-12-2022 MCHC (RBC) [Mass/Vol] 34.1 g/dL 32-36 [facility] [place] Mucus LM Ql (Urine sed)Order ed By: Dr. Yun on 08-12-2022 Mucus Ql (Urine sed) 0 SEEN /hpf [facility] [place] Nitrite Test strip Ql (U)Ord ered By: Dr. Yun on 08-12-2022 Nitrite Ql (U) Positive Negative [facility] No Panel InformationOrdered By: Dr. Yun on 08-12-2022 Estimated Creatinine Clearance Calc 14.26 ml/min [facility] Estimated GFR (MDRD) Amer 24 mL/min >60 [facility] Comment on above: GFR Calc Estimated GFR (MDRD) Non-Af Amer 20 mL/min >60 [facility] Comment on above: Non- GFR Calc Platelets bldOrdered By: Dr. Yun on 08-12-2022 Platelets (Bld) [#/Vol] 161 10*3/uL 150-450 [facility] Protein Test strip Ql (U)Ord ered By: Dr. Yun on 08-12-2022 Protein Ql (U) 15 mg/dl Negative [facility] Serum or plasma calcium huyen urement (mass/volume)Ordered By: Dr. Yun on 08-12-2022 Calcium [Mass/Vol] 9.1 mg/dL 8.5-10.1 [facility] Serum or plasma creatinine m easurement (mass/volume)Ordered By: Dr. Yun on 08-12-2022 Creatinine [Mass/Vol] 2.53 mg/dL 0.55-1.02 [facility] [place] Comment on above: The validity of the calculated GFR & GFRAA in patients over 70 years has not been determined. Clinical correlation is essential. Serum or plasma urea nitroge n measurement (mass/volume)Ordered By: Dr. Yun on 08-12-2022 Urea nitrogen [Mass/Vol] 78 mg/dL 7-18 [facility] Squamous epithelial cells de tection in urine sediment by light microscopyOrdered By: Dr. Yun on 08-12-2022 Epithelial cells.squamous LM Ql (Urine sed) 0-5 SEEN /hpf 5-10 [facility] Thin prep Papanicolaou smear with manual screeningOrdered By: Dr. Yun on 08-12-2022 Thin prep Papanicolaou smear with manual screening 15 5-15 [facility] Urine blood detectionOrdered By: Dr. Yun on 08-12-2022 RBC Ql (U) 10 /ul Negative [facility] RBC Ql (U) 0 SEEN /hpf 0-5 [facility] Urine clarityOrdered By: Dr. Yun on 08-12-2022 Clarity (U) Clear Clear [facility] Urine color determinationOrd ered By: Dr. Yun on 08-12-2022 Color (U) Yellow Yellow [facility] Urine glucose detectionOrder ed By: Dr. Yun on 08-12-2022 Glucose Ql (U) Normal mg/dl Normal [facility] Urine leukocyte esterase det ection by dipstickOrdered By: Dr. Yun on 08-12-2022 Leukocyte esterase Test strip Ql (U) 500 /ul Negative [facility] Urine pHOrdered By: Dr. Sarah grover on 08-12-2022 pH (U) 6.0 [pH] 5.0 - 8.0 [facility] Urine sediment bacteria coun t by microscopy (number/high power field)Ordered By: Dr. Yun on 08-12-2022 Bacteria LM.HPF (Urine sed) [#/Area] 2 /[HPF] None Seen [facility] Urine specific gravity measu rementOrdered By: Dr. Yun on 08-12-2022 Specific gravity (U) [Rel density] 1.015 1.002-1.030 [facility] Urobilinogen Auto test strip Ql (U)Ordered By: Dr. Yun on 08-12-2022 Urobilinogen Ql (U) Normal mg/dl Normal [facility] [place] No Panel Informationon 06-09 BLANK _ [facility] Implant Date 04/29/2019 [facility] Model 5076 [employer]SureFix Novus [facility] PACEMAKER REMOTE CHECKon AV Delay Adaptive Paced Minimum (ms) 180 ms [facility] AV Delay Adaptive Sensed Minimum (ms) 150 ms [facility] AV Delay Adaptive Status DISABLED [facility] Battery Voltage (volts) 3.01 V C [facility] Evert RA Pacing Amplitude (volts) 1.5 V [facility] Evert RA Pacing Polarity BI [facility] Evert RA Pacing Pulse Width (ms) 0.4 ms [facility] Evert RA Sensing Amplitude (mvolts) 0.15 mV [facility] Evert RA Sensing Blanking Period (ms) 150 ms [facility] Evert RA Sensing Polarity BI [facility] Evert RA Sensing Refractory Period (ms) Auto [facility] Evert RV Pacing Amplitude (volts) 2 V [facility] Evert RV Pacing Polarity BI [facility] Evert RV Pacing Pulse Width (ms) 0.4 ms [facility] Evert RV Sensing Amplitude (mvolts) 0.9 mV [facility] Evert RV Sensing Blanking Period (ms) 200 ms [facility] Evert RV Sensing Polarity BI [facility] Hysteresis Rate (bpm) DISABLED [facility] Lead1 Mfg MDT [facility] Lead2 Mfg MDT [facility] Location RV [facility] Location RA [facility] Lower Rate (bpm) 60 {beats}/min [facility] Max Sensor Rate (bmp) 120 {beats}/min [facility] Model [id number] [address] ESPINAL [facility] PM-Device Mfg MDAna [facility] PM-Percent Pacing (A) 7.3 % [facility] PM-Percent Pacing (V) 99.95 % [facility] PM-PMT Intervention DISABLED [facility] PM-PVC Intervention ENABLED [facility] PM-Rate Modulation Acceleration Reaction 30 s [facility] PM-Rate Modulation ADL Rate (bpm) 85 {beats}/min [facility] PM-Rate Modulation Deceleration Exercise [facility] PM-Rate Modulation [place] 3 [facility] PM-Rate Modulation Threshold MediumLow [facility] RA Bipolar Impedance ohms 418 ohm [facility] RA Unipolar Impedance ohms 304 ohm [facility] RV Bipolar Impedance ohms 418 ohm [facility] RV Unipolar Impedance 380 ohm [facility] Serial Number [id number] [facility] Serial Number [id number] [facility] Serial Number [id number] [facility] Thresh RA Capture Amplitude (volts) 1 V [facility] Thresh RA Capture Duration (ms) 0.4 ms [facility] Thresh RA Sensing Amplitude (mvolts) 2.125 mV [facility] Thresh RV Capture Amplitude (volts) 0.75 V [facility] Thresh RV Capture Duration (ms) 0.4 ms [facility] Thresh RV Sensing Amplitude (mvolts) 21.75 mV [facility] Tracking Rate (bpm) 130 {beats}/min [facility] Absolute lymphocyte countOrd ered By: Dr. Neal on 06-02-2022 Lymphocytes Auto (Unsp spec) [#/Vol] 1.16 10*3/uL 0.83-4.51 [facility] Basophil percentageOrdered B y: Dr. Neal on 06-02-2022 Basophils/100 WBC (Bld) 0.5 % 0-1 [facility] Chloride [Moles/Vol] 111 mmol/L 98-107 [facility] Eosinophils/100 WBC (Bld) 3.4 % 0-5 [facility] Glucose [Mass/Vol] 87 mg/dL 74-106 [facility] Neutrophils (Bld) [#/Vol] 4.3 10*3/uL 2.0-7.7 [facility] Neutrophils/100 WBC (Bld) 69.1 % 47-70 [facility] Potassium [Moles/Vol] 3.6 mmol/L 3.5-5.1 [facility] [place] Comment on above: Slight Hemolysis, Re sult may be falsely increased. Sodium [Moles/Vol] 138 mmol/L 136-145 [facility] WBC (Bld) [#/Vol] 6.2 10*3/uL 4.4-11.0 [facility] Blood erythrocytes count (nu mber/volume)Ordered By: Dr. Neal on 06-02-2022 RBC (Bld) [#/Vol] 2.89 10*6/uL 4.2-5.4 [facility] Blood hemoglobin measurement (mass/volume)Ordered By: Dr. Neal on 06-02-2022 Hemoglobin (Bld) [Mass/Vol] 9.6 g/dL 12.0-15.0 [facility] Blood lymphocytes/100 leukoc ytesOrdered By: Dr. Neal on 06-02-2022 Lymphocytes/100 WBC (Bld) 18.8 % 19-41 [facility] Blood monocytes/100 leukocyt esOrdered By: Dr. Neal on 06-02-2022 Monocytes/100 WBC (Bld) 7.6 % 0-10 [facility] Blood platelet mean volumeOr dered By: Dr. Neal on 06-02-2022 Platelet mean volume (Bld) [Entitic vol] 10.7 fL 6.2-12.0 [facility] Culture, urineOrdered By: Dr Brayden Neal on 06-02-2022 Bacteria identified Cx Nom (U) Escherichia coli [facility] Determination of erythrocyte mean corpuscular volume (MCV)Ordered By: Dr. Neal on 06-02-2022 MCV (RBC) [Entitic vol] 102.4 fL 81-99 [facility] Hematocrit Auto (Bld) [Volum e fraction]Ordered By: Dr. Neal on 06-02-2022 Hematocrit (Bld) [Volume fraction] 29.6 % 37-47 [facility] Laboratory - Chemistry and C hemistry - challengeOrdered By: Dr. Neal on 06-02-2022 CO2 [Moles/Vol] 21.0 mmol/L 21.0-32.0 [facility] Magnesium [Mass/Vol] 1.7 mg/dL 1.6-2.6 [facility] Comment on above: Slight Hemolysis, Re sult may be falsely increased. Urea nitrogen/Creatinine [Mass ratio] 36.4 mg/mg 10-20 [facility] Laboratory - Hematology and Cell countsOrdered By: Dr. Neal on 06-02-2022 Erythrocyte distribution width (RBC) [Entitic vol] 50.2 fL 35.1-43.9 [facility] Erythrocyte distribution width (RBC) [Ratio] 13.2 % 11.6-14.6 [facility] Immature granulocytes/100 WBC (Bld) 0.600 % 0.0-0.9 [facility] Comment on above: IG% - Immature Granu locytes (promyelocytes, myelocytes and metamyelocytes) > 1% indicates that a LEFT SHIFT is Present. MCH (RBC) [Entitic mass] 33.2 pg 27.0-32.0 [facility] Nucleated RBC/100 WBC (Bld) [Ratio] 0 % 0-5 [facility] Auto (RBC) [Mass/Vol]Or dered By: Dr. Neal on 06-02-2022 MCHC (RBC) [Mass/Vol] 32.4 g/dL 32-36 [facility] [place] No Panel InformationOrdered By: Dr. Neal on 06-02-2022 Estimated Creatinine Clearance Calc 31.82 ml/min [facility] Estimated GFR (MDRD) Amer 51 mL/min >60 [facility] Comment on above: GFR Calc Estimated GFR (MDRD) Non-Af Amer 42 mL/min >60 [facility] Comment on above: Non- GFR Calc Platelets bldOrdered By: Dr. Neal on 06-02-2022 Platelets (Bld) [#/Vol] 107 10*3/uL 150-450 [facility] Serum or plasma calcium huyen urement (mass/volume)Ordered By: Dr. Neal on 06-02-2022 Calcium [Mass/Vol] 8.4 mg/dL 8.5-10.1 [facility] Serum or plasma creatinine m easurement (mass/volume)Ordered By: Dr. Neal on 06-02-2022 Creatinine [Mass/Vol] 1.29 mg/dL 0.55-1.02 [facility] [place] Comment on above: The validity of the calculated GFR & GFRAA in patients over 70 years has not been determined. Clinical correlation is essential. Serum or plasma urea nitroge n measurement (mass/volume)Ordered By: Dr. Neal on 06-02-2022 Urea nitrogen [Mass/Vol] 47 mg/dL 7-18 [facility] Thin prep Papanicolaou smear with manual screeningOrdered By: Dr. Neal on 06-02-2022 Thin prep Papanicolaou smear with manual screening 6 5-15 [facility] Blood platelet adequacy dete ction by light microscopyOrdered By: Dr. Neal on 06-01-2022 Platelets LM Ql (Bld) MOD DEC ADEQ [facility] [place] Clostridium difficile detect ion by polymerase chain reactionOrdered By: Dr. Neal on 06-01-2022 C. difficile DNA MURALI+probe Ql (Unsp spec) [facility] Basophil percentageOrdered B y: Dr. Neal on 05-31-2022 Basophil percentage 3.5 mg/dL 2.5-4.9 [facility] Bilirubin [Mass/Vol] 0.40 mg/dL 0.20-1.00 [facility] Comment on above: For patients on eltr ombopag therapy, use of Dimension [place] TBIL is not recommended. Protein [Mass/Vol] 4.9 g/dL 6.4-8.2 [facility] Laboratory - Chemistry and C hemistry - challengeOrdered By: Dr. Neal on 05-31-2022 ALP [Catalytic activity/Vol] 73 U/L 45-117 [facility] ALT [Catalytic activity/Vol] 8 U/L 13-56 [facility] Globulin (S) [Mass/Vol] 2.6 g/dL 2.2-4.2 [facility] No Panel InformationOrdered By: Dr. Neal on 05-31-2022 Thyroid Stimulating Hormone (TSH) 1.29 uIU/mL 0.358-3.74 [facility] Serum or plasma albumin huyen urement (mass/volume)Ordered By: Dr. Neal on 05-31-2022 Albumin [Mass/Vol] 2.3 g/dL 3.2-5.0 [facility] Serum or plasma albumin/glob ulin mass ratioOrdered By: Dr. Neal on 05-31-2022 Albumin/Globulin [Mass ratio] 0.9 {ratio} 0.9-2.4 [facility] Thin prep Papanicolaou smear with manual screeningOrdered By: Dr. Neal on 05-31-2022 Thin prep Papanicolaou smear with manual screening 27 U/L 15-37 [facility] Absolute lymphocyte counton 05-30-2022 Lymphocytes Auto (Unsp spec) [#/Vol] 1.19 10*3/uL 0.83-4.51 [facility] Work Phone: Basophil percentageOrdered B y: Dr. Neal on 05-30-2022 Basophil percentage 10-25 SEEN /hpf 0-5 [facility] Basophil percentageon 2021 Basophils/100 WBC (Bld) 0.2 % 0-1 [facility] Work Phone: Chloride [Moles/Vol] 102 mmol/L 98-107 [facility] Work Phone: Eosinophils/100 WBC (Bld) 0.7 % 0-5 [facility] Work Phone: Glucose [Mass/Vol] 106 mg/dL 74-106 [facility] Work Phone: Comment on above: Fasting Glucose resu lt from 100 to 125 mg/dL suggests IMPAIRED HOMEOSTASIS per A.D.A. criteria. Neutrophils (Bld) [#/Vol] 7.8 10*3/uL 2.0-7.7 [facility] Work Phone: Neutrophils/100 WBC (Bld) 80.1 % 47-70 [facility] Work Phone: Potassium [Moles/Vol] 3.0 mmol/L 3.5-5.1 [facility] [place] Work Phone: Sodium [Moles/Vol] 135 mmol/L 136-145 [facility] Work Phone: WBC (Bld) [#/Vol] 9.8 10*3/uL 4.4-11.0 [facility] Work Phone: [phone] Bilirubin Test strip Ql (U)O rdered By: Dr. Neal on 05-30-2022 Bilirubin Ql (U) Negative Negative [facility] Blood erythrocytes count (nu mber/volume)on 05-30-2022 RBC (Bld) [#/Vol] 3.49 10*6/uL 4.2-5.4 [facility] Work Phone: Blood hemoglobin measurement (mass/volume)on 05-30-2022 Hemoglobin (Bld) [Mass/Vol] 11.3 g/dL 12.0-15.0 [facility] Work Phone: Blood lymphocytes/100 leukoc yteson 05-30-2022 Lymphocytes/100 WBC (Bld) 12.2 % 19-41 [facility] Work Phone: Blood monocytes/100 leukocyt eson 05-30-2022 Monocytes/100 WBC (Bld) 6.5 % 0-10 [facility] Work Phone: Blood platelet mean volumeon 05-30-2022 Platelet mean volume (Bld) [Entitic vol] 11.3 fL 6.2-12.0 [facility] Work Phone: [phone] COVID-19 virus antigen assay Ordered By: Dr. Neal on 05-30-2022 SARS-CoV-2 (COVID-19) Ag IA.rapid Ql (Resp) [facility] Determination of erythrocyte mean corpuscular volume (MCV)on 05-30-2022 MCV (RBC) [Entitic vol] 97.4 fL 81-99 [facility] Work Phone: [phone] Hematocrit Auto (Bld) [Volum e fraction]on 05-30-2022 Hematocrit (Bld) [Volume fraction] 34.0 % 37-47 [facility] Work Phone: [phone] Ketones Test strip Ql (U)Ord ered By: Dr. Neal on 05-30-2022 Ketones Ql (U) Negative Negative [facility] Laboratory - Chemistry and C hemistry - challengeon 05-30-2022 CO2 [Moles/Vol] 23.0 mmol/L 21.0-32.0 [facility] Work Phone: Urea nitrogen/Creatinine [Mass ratio] 30.4 mg/mg 10-20 [facility] Work Phone: [phone] Laboratory - Hematology and Cell countson 05-30-2022 Erythrocyte distribution width (RBC) [Entitic vol] 46.9 fL 35.1-43.9 [facility] Work Phone: [phone] Erythrocyte distribution width (RBC) [Ratio] 13.2 % 11.6-14.6 [facility] Work Phone: [phone] Immature granulocytes/100 WBC (Bld) 0.300 % 0.0-0.9 [facility] Work Phone: Comment on above: IG% - Immature Granu locytes (promyelocytes, myelocytes and metamyelocytes) > 1% indicates that a LEFT SHIFT is Present. MCH (RBC) [Entitic mass] 32.4 pg 27.0-32.0 [facility] Work Phone: Nucleated RBC/100 WBC (Bld) [Ratio] 0 % 0-5 [facility] Work Phone: MCHC Auto (RBC) [Mass/Vol]on 05-30-2022 MCHC (RBC) [Mass/Vol] 33.2 g/dL 32-36 [facility] [place] Work Phone: Mucus LM Ql (Urine sed)Order ed By: Dr. Neal on 05-30-2022 Mucus Ql (Urine sed) 0 SEEN /hpf [facility] Nitrite Test strip Ql (U)Ord ered By: Dr. Neal on 05-30-2022 Nitrite Ql (U) Positive Negative [facility] No Panel Informationon 05-30 Estimated Creatinine Clearance Calc 15.04 ml/min [facility] Work Phone: Estimated GFR (MDRD) Amer 22 mL/min >60 [facility] Work Phone: Comment on above: GFR Calc Estimated GFR (MDRD) Non-Af Amer 18 mL/min >60 [facility] Work Phone: Comment on above: Non- GFR Calc Platelets bldon 05-30-2022 Platelets (Bld) [#/Vol] 109 10*3/uL 150-450 [facility] Work Phone: [phone] Protein Test strip Ql (U)Ord ered By: Dr. Neal on 05-30-2022 Protein Ql (U) Negative Negative [facility] Serum or plasma calcium huyen urement (mass/volume)on 05-30-2022 Calcium [Mass/Vol] 8.6 mg/dL 8.5-10.1 [facility] Work Phone: [phone] Serum or plasma creatinine m easurement (mass/volume)on 05-30-2022 Creatinine [Mass/Vol] 2.73 mg/dL 0.55-1.02 [facility] Work Phone: Comment on above: The validity of the calculated GFR & GFRAA in patients over 70 years has not been determined. Clinical correlation is essential. Serum or plasma urea nitroge n measurement (mass/volume)on 05-30-2022 Urea nitrogen [Mass/Vol] 83 mg/dL 7-18 [facility] Work Phone: Squamous epithelial cells de tection in urine sediment by light microscopyOrdered By: Dr. Neal on 05-30-2022 Epithelial cells.squamous LM Ql (Urine sed) 0-5 SEEN /hpf 5-10 [facility] Thin prep Papanicolaou smear with manual screeningon 05-30-2022 Thin prep Papanicolaou smear with manual screening 10 5-15 [facility] Work Phone: Urine blood detectionOrdered By: Dr. Neal on 05-30-2022 RBC Ql (U) Negative Negative [facility] RBC Ql (U) 0-5 SEEN /hpf 0-5 [facility] Urine clarityOrdered By: Dr. Neal on 05-30-2022 Clarity (U) Clear Clear [facility] Urine color determinationOrd ered By: Dr. Neal on 05-30-2022 Color (U) Straw Yellow [facility] Urine glucose detectionOrder ed By: Dr. Neal on 05-30-2022 Glucose Ql (U) Normal mg/dl Normal [facility] Urine leukocyte esterase det ection by dipstickOrdered By: Dr. Neal on 05-30-2022 Leukocyte esterase Test strip Ql (U) 100 /ul Negative [facility] Urine pHOrdered By: Dr. Neal on 05-30-2022 pH (U) 6.0 [pH] 5.0 - 8.0 [facility] Urine sediment bacteria coun t by microscopy (number/high power field)Ordered By: Dr. Neal on 05-30-2022 Bacteria LM.HPF (Urine sed) [#/Area] 3 /[HPF] None Seen [facility] Urine specific gravity measu rementOrdered By: Dr. Neal on 05-30-2022 Specific gravity (U) [Rel density] 1.015 1.002-1.030 [facility] Urobilinogen Auto test strip Ql (U)Ordered By: Dr. Neal on 05-30-2022 Urobilinogen Ql (U) Normal mg/dl Normal [facility] No Panel Informationon 03-05 BLANK _ [facility] Implant Date 04/29/2019 [facility] Model 5076 CapSureFix Novus [facility] PACEMAKER REMOTE CHECKon AV Delay Adaptive Paced Minimum (ms) 180 ms [facility] AV Delay Adaptive Sensed Minimum (ms) 150 ms [facility] AV Delay Adaptive Status DISABLED [facility] Battery Voltage (volts) 3.01 V C [facility] Evert RA Pacing Amplitude (volts) 1.5 V [facility] Evert RA Pacing Polarity BI [facility] Evert RA Pacing Pulse Width (ms) 0.4 ms [facility] Evert RA Sensing Amplitude (mvolts) 0.15 mV [facility] Evert RA Sensing Blanking Period (ms) 150 ms [facility] Evert RA Sensing Polarity BI [facility] Evert RA Sensing Refractory Period (ms) Auto [facility] Evert RV Pacing Amplitude (volts) 2 V [facility] Evert RV Pacing Polarity BI [facility] Evert RV Pacing Pulse Width (ms) 0.4 ms [facility] Evert RV Sensing Amplitude (mvolts) 0.9 mV [facility] Evert RV Sensing Blanking Period (ms) 200 ms [facility] Evert RV Sensing Polarity BI [facility] Hysteresis Rate (bpm) DISABLED [facility] Lead1 Mfg MDT [facility] Lead2 Mfg MDT [facility] Location RV [facility] Location RA [facility] Lower Rate (bpm) 60 {beats}/min [facility] Max Sensor Rate (bmp) 120 {beats}/min [facility] Model [id number] [address]vis[address] ESPINAL [facility] PM-Device Mfg SOFIA [facility] PM-Percent Pacing (A) 7.12 % [facility] PM-Percent Pacing (V) 99.96 % [facility] PM-PMT Intervention DISABLED [facility] PM-PVC Intervention ENABLED [facility] PM-Rate Modulation Acceleration Reaction 30 s [facility] PM-Rate Modulation ADL Rate (bpm) 85 {beats}/min [facility] PM-Rate Modulation Deceleration Exercise [facility] PM-Rate Modulation [place] 3 [facility] PM-Rate Modulation Threshold MediumLow [facility] RA Bipolar Impedance ohms 437 ohm [facility] RA Unipolar Impedance ohms 304 ohm [facility] RV Bipolar Impedance ohms 475 ohm [facility] RV Unipolar Impedance 437 ohm [facility] Serial Number [id number] [facility] Serial Number [id number] [facility] Serial Number [id number] [facility] Thresh RA Capture Amplitude (volts) 1 V [facility] Thresh RA Capture Duration (ms) 0.4 ms [facility] Thresh RA Sensing Amplitude (mvolts) 1.75 mV [facility] Thresh RV Capture Amplitude (volts) 0.75 V [facility] Thresh RV Capture Duration (ms) 0.4 ms [facility] Thresh RV Sensing Amplitude (mvolts) 15.625 mV [facility] Tracking Rate (bpm) 130 {beats}/min [facility] No Panel Informationon 11-24 BLANK _ [facility] Implant Date 04/29/2019 [facility] Model 5076 CapSureFix Novus [facility] PACEMAKER REMOTE CHECKon AV Delay Adaptive Paced Minimum (ms) 180 ms [facility] AV Delay Adaptive Sensed Minimum (ms) 150 ms [facility] AV Delay Adaptive Status DISABLED [facility] Battery Voltage (volts) 3.01 V [facility] Evert RA Pacing Amplitude (volts) 1.5 V [facility] Evert RA Pacing Polarity BI [facility] Evert RA Pacing Pulse Width (ms) 0.4 ms [facility] Evert RA Sensing Amplitude (mvolts) 0.15 mV [facility] Evert RA Sensing Blanking Period (ms) 150 ms [facility] Evert RA Sensing Polarity BI [facility] Evert RA Sensing Refractory Period (ms) Auto [facility] Evert RV Pacing Amplitude (volts) 2 V [facility] Evert RV Pacing Polarity BI [facility] Evert RV Pacing Pulse Width (ms) 0.4 ms [facility] Evert RV Sensing Amplitude (mvolts) 0.9 mV [facility] Evert RV Sensing Blanking Period (ms) 200 ms [facility] Evert RV Sensing Polarity BI [facility] Hysteresis Rate (bpm) DISABLED [facility] Lead1 Jerica BLACK [facility] Lead2 Jerica BLACK [facility] Location RV [facility] Location RA [facility] Lower Rate (bpm) 60 {beats}/min [facility] Max Sensor Rate (bmp) 120 {beats}/min [facility] Model [id number] [address] ESPINAL [facility] PM-Device Jerica BLACK [facility] PM-Percent Pacing (A) 5.62 % [facility] PM-Percent Pacing (V) 99.96 % [facility] PM-PMT Intervention DISABLED [facility] PM-PVC Intervention ENABLED [facility] PM-Rate Modulation Acceleration Reaction 30 s [facility] PM-Rate Modulation ADL Rate (bpm) 85 {beats}/min [facility] PM-Rate Modulation Deceleration Exercise [facility] PM-Rate Modulation [place] 3 [facility] PM-Rate Modulation Threshold MediumLow [facility] RA Bipolar Impedance ohms 418 ohm [facility] RA Unipolar Impedance ohms 304 ohm [facility] RV Bipolar Impedance ohms 456 ohm [facility] RV Unipolar Impedance 399 ohm [facility] Serial Number [id number] [facility] Serial Number [id number] [facility] Serial Number [id number] [facility] Thresh RA Capture Amplitude (volts) 1 V [facility] Thresh RA Capture Duration (ms) 0.4 ms [facility] Thresh RA Sensing Amplitude (mvolts) 1.875 mV [facility] Thresh RV Capture Amplitude (volts) 0.75 V [facility] Thresh RV Capture Duration (ms) 0.4 ms [facility] Thresh RV Sensing Amplitude (mvolts) 7.5 mV [facility] Tracking Rate (bpm) 130 {beats}/min [facility] C-REACTIVE PROTEIN (CRP)on 0 11-11-2021 CRP [Mass/Vol] mg/L <0.9 mg/dL [facility] No Panel Informationon 11-11 [facility] Absolute lymphocyte counton 10-30-2021 Lymphocytes Auto (Unsp spec) [#/Vol] 0.98 10*3/uL 0.83-4.51 [facility] Work Phone: Basophil percentageon 2021 Basophil percentage 0-5 SEEN /hpf [facility] Work Phone: Basophils/100 WBC (Bld) 0.4 % 0-1 [facility] Work Phone: Bilirubin [Mass/Vol] 0.30 mg/dL 0.20-1.00 [facility] Work Phone: Comment on above: For patients on eltr ombopag therapy, use of Dimension [place] TBIL is not recommended. Chloride [Moles/Vol] 111 mmol/L 98-107 [facility] Work Phone: Eosinophils/100 WBC (Bld) 1.5 % 0-5 [facility] Work Phone: Glucose [Mass/Vol] 85 mg/dL 74-106 [facility] Work Phone: Neutrophils (Bld) [#/Vol] 6.4 10*3/uL 2.0-7.7 [facility] Work Phone: Neutrophils/100 WBC (Bld) 75.4 % 47-70 [facility] Work Phone: Potassium [Moles/Vol] 4.1 mmol/L 3.5-5.1 [facility] Work Phone: Protein [Mass/Vol] 6.3 g/dL 6.4-8.2 [facility] Work Phone: Sodium [Moles/Vol] 138 mmol/L 136-145 [facility] Work Phone: WBC (Bld) [#/Vol] 8.4 10*3/uL 4.4-11.0 [facility] Work Phone: Bilirubin Test strip Ql (U)o n 10-30-2021 Bilirubin Ql (U) Negative Negative [facility] Work Phone: Blood erythrocytes count (nu mber/volume)on 10-30-2021 RBC (Bld) [#/Vol] 2.76 10*6/uL 4.2-5.4 [facility] Work Phone: Blood hemoglobin measurement (mass/volume)on 10-30-2021 Hemoglobin (Bld) [Mass/Vol] 9.2 g/dL 12.0-15.0 [facility] Work Phone: Blood lymphocytes/100 leukoc yteson 10-30-2021 Lymphocytes/100 WBC (Bld) 11.6 % 19-41 [facility] Work Phone: Blood monocytes/100 leukocyt eson 10-30-2021 Monocytes/100 WBC (Bld) 6.8 % 0-10 [facility] Work Phone: [phone] Blood platelet mean volumeon 10-30-2021 Platelet mean volume (Bld) [Entitic vol] 9.6 fL 6.2-12.0 [facility] Work Phone: [phone] Determination of erythrocyte mean corpuscular volume (MCV)on 10-30-2021 MCV (RBC) [Entitic vol] 102.5 fL 81-99 [facility] Work Phone: Hematocrit Auto (Bld) [Volum e fraction]on 10-30-2021 Hematocrit (Bld) [Volume fraction] 28.3 % 37-47 [facility] Work Phone: [phone] Ketones Test strip Ql (U)on 10-30-2021 Ketones Ql (U) Negative Negative [facility] Work Phone: Laboratory - Chemistry and C hemistry - challengeon 10-30-2021 ALP [Catalytic activity/Vol] 100 U/L 45-117 [facility] Work Phone: [phone] ALT [Catalytic activity/Vol] 9 U/L 13-56 [facility] Work Phone: [phone] CO2 [Moles/Vol] 21.0 mmol/L 21.0-32.0 [facility] Work Phone: [phone] Globulin (S) [Mass/Vol] 3.8 g/dL 2.2-4.2 [facility] Work Phone: [phone] Urea nitrogen/Creatinine [Mass ratio] 15.1 mg/mg 10-20 [facility] Work Phone: [phone] Laboratory - Hematology and Cell countson 10-30-2021 Erythrocyte distribution width (RBC) [Entitic vol] 47.0 fL 35.1-43.9 [facility] Work Phone: [phone] Erythrocyte distribution width (RBC) [Ratio] 12.6 % 11.6-14.6 [facility] Work Phone: [phone] Immature granulocytes/100 WBC (Bld) 4.300 % 0.0-0.9 [facility] Work Phone: Comment on above: IG% - Immature Granu locytes (promyelocytes, myelocytes and metamyelocytes) > 1% indicates that a LEFT SHIFT is Present. MCH (RBC) [Entitic mass] 33.3 pg 27.0-32.0 [facility] Work Phone: Nucleated RBC/100 WBC (Bld) [Ratio] 0 % 0-5 [facility] Work Phone: [phone] MCHC Auto (RBC) [Mass/Vol]on 10-30-2021 MCHC (RBC) [Mass/Vol] 32.5 g/dL 32-36 [facility] Work Phone: Mucus LM Ql (Urine sed)on Mucus Ql (Urine sed) 0 SEEN /hpf [facility] Work Phone: [phone] Nitrite Test strip Ql (U)on 10-30-2021 Nitrite Ql (U) Positive Negative [facility] Work Phone: [phone] No Panel Informationon 10-30 Estimated Creatinine Clearance Calc 30.01 ml/min [facility] Work Phone: [phone] Estimated GFR (MDRD) Amer 47 mL/min >60 [facility] Work Phone: Comment on above: GFR Calc Estimated GFR (MDRD) Non-Af Amer 39 mL/min >60 [facility] Work Phone: [phone] Comment on above: Non- GFR Calc Platelets bldon 10-30-2021 Platelets (Bld) [#/Vol] 284 10*3/uL 150-450 [facility] Work Phone: [phone] Protein Test strip Ql (U)on 10-30-2021 Protein Ql (U) Negative Negative [facility] Work Phone: [phone] Serum or plasma albumin huyen urement (mass/volume)on 10-30-2021 Albumin [Mass/Vol] 2.5 g/dL 3.2-5.0 [facility] Work Phone: Serum or plasma albumin/glob ulin mass ratioon 10-30-2021 Albumin/Globulin [Mass ratio] 0.7 {ratio} 0.9-2.4 [facility] Work Phone: [phone] Serum or plasma calcium huyen urement (mass/volume)on 10-30-2021 Calcium [Mass/Vol] 8.1 mg/dL 8.5-10.1 [facility] Work Phone: [phone] Serum or plasma creatinine m easurement (mass/volume)on 10-30-2021 Creatinine [Mass/Vol] 1.39 mg/dL 0.55-1.02 [facility] Work Phone: Comment on above: The validity of the calculated GFR & GFRAA in patients over 70 years has not been determined. Clinical correlation is essential. Serum or plasma urea nitroge n measurement (mass/volume)on 10-30-2021 Urea nitrogen [Mass/Vol] 21 mg/dL 7-18 [facility] Work Phone: Squamous epithelial cells de tection in urine sediment by light microscopyon 10-30-2021 Epithelial cells.squamous LM Ql (Urine sed) 0 SEEN /hpf [facility] Work Phone: Thin prep Papanicolaou smear with manual screeningon 10-30-2021 Thin prep Papanicolaou smear with manual screening 13 U/L 15-37 [facility] Work Phone: [phone] Thin prep Papanicolaou smear with manual screening 6 5-15 [facility] Work Phone: [phone] Urine blood detectionon 10-04 RBC Ql (U) Negative Negative [facility] Work Phone: [phone] RBC Ql (U) 0 SEEN /hpf [facility] Work Phone: [phone] Urine clarityon 10-30-2021 Clarity (U) Clear Clear [facility] Work Phone: [phone] Urine color determinationon 10-30-2021 Color (U) Yellow Yellow [facility] Work Phone: [phone] Urine glucose detectionon Glucose Ql (U) Normal mg/dl Normal [facility] Work Phone: Urine leukocyte esterase det ection by dipstickon 10-30-2021 Leukocyte esterase Test strip Ql (U) 25 /ul Negative [facility] Work Phone: Urine pHon 10-30-2021 pH (U) 6.0 [pH] [facility] Work Phone: Urine sediment bacteria coun t by microscopy (number/high power field)on 10-30-2021 Bacteria LM.HPF (Urine sed) [#/Area] 2 /[HPF] None Seen [facility] Work Phone: Urine specific gravity measu rementon 10-30-2021 Specific gravity (U) [Rel density] 1.010 [facility] Work Phone: Urobilinogen Auto test strip Ql (U)on 10-30-2021 Urobilinogen Ql (U) Normal mg/dl Normal [facility] Work Phone: CBC panel Auto (Bld)on 10-29 Erythrocyte distribution width (RBC) [Ratio] 12.7 % 11.5 - 15.0 % [facility] Hematocrit (Bld) [Volume fraction] 30.5 % Low 36.0 - 46.0 % [facility] Hemoglobin (Bld) [Mass/Vol] 9.4 g/dL Low 11.5 - 15.5 g/dL [facility] MCH (RBC) [Entitic mass] 32.9 pg 26. 0 - 34.0 pg [facility] MCHC (RBC) [Mass/Vol] 30.8 g/dL 30.5 - 36.0 g/dL [facility] MCV (RBC) [Entitic vol] 106.6 fL High 80.0 - 100.0 fL [facility] Nucleated RBC (Bld) [#/Vol] 10*3/uL <0.01 k/uL [facility] Platelet mean volume (Bld) [Entitic vol] 10.2 fL 9.0 - 12.7 fL [facility] Platelets (Bld) [#/Vol] 265 10*3/uL 150 - 400 k/uL [facility] RBC (Bld) [#/Vol] 2.86 10*6/uL Low 3.90 - 5.2 0 m/uL [facility] WBC (Bld) [#/Vol] 8.29 10*3/uL 3.70 - 11. 00 k/uL [facility] CBC panel Auto (Bld)on 10-28 Erythrocyte distribution width (RBC) [Ratio] 13.2 % 11.5 - 15.0 % [facility] Hematocrit (Bld) [Volume fraction] 30.9 % Low 36.0 - 46.0 % [facility] Hemoglobin (Bld) [Mass/Vol] 9.7 g/dL Low 11.5 - 15.5 g/dL [facility] MCH (RBC) [Entitic mass] 33.4 pg 26. 0 - 34.0 pg [facility] MCHC (RBC) [Mass/Vol] 31.4 g/dL 30.5 - 36.0 g/dL [facility] MCV (RBC) [Entitic vol] 106.6 fL High 80.0 - 100.0 fL [facility] Nucleated RBC (Bld) [#/Vol] 10*3/uL <0.01 k/uL [facility] Platelet mean volume (Bld) [Entitic vol] 11.4 fL 9.0 - 12.7 fL [facility] Platelets (Bld) [#/Vol] 155 10*3/uL 150 - 400 k/uL [facility] RBC (Bld) [#/Vol] 2.90 10*6/uL Low 3.90 - 5.2 0 m/uL [facility] WBC (Bld) [#/Vol] 7.73 10*3/uL 3.70 - 11. 00 k/uL [facility] Absolute lymphocyte counton 10-27-2021 Lymphocytes Auto (Unsp spec) [#/Vol] 0.72 10*3/uL 0.83-4.51 [facility] Work Phone: Basophil percentageon 2021 Basophil percentage 25-50 SEEN /hpf [facility] Work Phone: Basophils/100 WBC (Bld) 0.6 % 0-1 [facility] Work Phone: Bilirubin [Mass/Vol] 0.40 mg/dL 0.20-1.00 [facility] Work Phone: Comment on above: For patients on eltr ombopag therapy, use of Dimension [place] TBIL is not recommended. Chloride [Moles/Vol] 109 mmol/L 98-107 [facility] Work Phone: Eosinophils/100 WBC (Bld) 2.9 % 0-5 [facility] Work Phone: Glucose [Mass/Vol] 98 mg/dL 74-106 [facility] Work Phone: Neutrophils (Bld) [#/Vol] 5.2 10*3/uL 2.0-7.7 [facility] Work Phone: Neutrophils/100 WBC (Bld) 72.7 % 47-70 [facility] Work Phone: Potassium [Moles/Vol] 3.2 mmol/L 3.5-5.1 [facility] Work Phone: Protein [Mass/Vol] 5.6 g/dL 6.4-8.2 [facility] Work Phone: Sodium [Moles/Vol] 139 mmol/L 136-145 [facility] Work Phone: WBC (Bld) [#/Vol] 7.2 10*3/uL 4.4-11.0 [facility] Work Phone: Bilirubin Test strip Ql (U)o n 10-27-2021 Bilirubin Ql (U) Negative Negative [facility] Work Phone: Blood erythrocytes count (nu mber/volume)on 10-27-2021 RBC (Bld) [#/Vol] 2.89 10*6/uL 4.2-5.4 [facility] Work Phone: Blood hemoglobin measurement (mass/volume)on 10-27-2021 Hemoglobin (Bld) [Mass/Vol] 9.6 g/dL 12.0-15.0 [facility] Work Phone: Blood lymphocytes/100 leukoc yteson 10-27-2021 Lymphocytes/100 WBC (Bld) 10.0 % 19-41 [facility] Work Phone: Blood monocytes/100 leukocyt eson 10-27-2021 Monocytes/100 WBC (Bld) 9.6 % 0-10 [facility] Work Phone: [phone] Blood platelet mean volumeon 10-27-2021 Platelet mean volume (Bld) [Entitic vol] 10.3 fL 6.2-12.0 [facility] Work Phone: [phone] Culture, urineon 10-27-2021 Bacteria identified Cx Nom (U) Presumptive E. coli [facility] Work Phone: [phone] Determination of erythrocyte mean corpuscular volume (MCV)on 10-27-2021 MCV (RBC) [Entitic vol] 103.8 fL 81-99 [facility] Work Phone: [phone] Hematocrit Auto (Bld) [Volum e fraction]on 10-27-2021 Hematocrit (Bld) [Volume fraction] 30.0 % 37-47 [facility] Work Phone: Ketones Test strip Ql (U)on 10-27-2021 Ketones Ql (U) Negative Negative [facility] Work Phone: Laboratory - Chemistry and C hemistry - challengeon 10-27-2021 ALP [Catalytic activity/Vol] 115 U/L 45-117 [facility] Work Phone: [phone] ALT [Catalytic activity/Vol] 15 U/L 13-56 [facility] Work Phone: [phone] CO2 [Moles/Vol] 20.0 mmol/L 21.0-32.0 [facility] Work Phone: [phone] Globulin (S) [Mass/Vol] 3.1 g/dL 2.2-4.2 [facility] Work Phone: [phone] Urea nitrogen/Creatinine [Mass ratio] 31.9 mg/mg 10-20 [facility] Work Phone: [phone] Laboratory - Hematology and Cell countson 10-27-2021 Erythrocyte distribution width (RBC) [Entitic vol] 49.8 fL 35.1-43.9 [facility] Work Phone: [phone] Erythrocyte distribution width (RBC) [Ratio] 13.2 % 11.6-14.6 [facility] Work Phone: [phone] Immature granulocytes/100 WBC (Bld) 4.200 % 0.0-0.9 [facility] Work Phone: [phone] Comment on above: IG% - Immature Granu locytes (promyelocytes, myelocytes and metamyelocytes) > 1% indicates that a LEFT SHIFT is Present. MCH (RBC) [Entitic mass] 33.2 pg 27.0-32.0 [facility] Work Phone: [phone] Nucleated RBC/100 WBC (Bld) [Ratio] 0 % 0-5 [facility] Work Phone: [phone] MCHC Auto (RBC) [Mass/Vol]on 10-27-2021 MCHC (RBC) [Mass/Vol] 32.0 g/dL 32-36 [facility] Work Phone: [phone] Mucus LM Ql (Urine sed)on Mucus Ql (Urine sed) 0 SEEN /hpf [facility] Work Phone: [phone] Nitrite Test strip Ql (U)on 10-27-2021 Nitrite Ql (U) Positive Negative [facility] Work Phone: [phone] Panel Informationon 10-27 Estimated Creatinine Clearance Calc 30.23 ml/min [facility] Work Phone: [phone] Estimated GFR (MDRD) Amer 48 mL/min >60 [facility] Work Phone: [phone] Comment on above: GFR Calc Estimated GFR (MDRD) Non-Af Amer 39 mL/min >60 [facility] Work Phone: [phone] Comment on above: Non- GFR Calc Troponin I High Sensitivity 6 pg/mL 3.0-54.0 [facility] Work Phone: [phone] Comment on above: Please Note: New Liz t Units and Gender Specific Reference Ranges. For more information see Policy Stat Procedure [place] High Sensitivity Troponin (TNIH) and attachments. Platelets bldon 10-27-2021 Platelets (Bld) [#/Vol] 176 10*3/uL 150-450 [facility] Work Phone: Protein Test strip Ql (U)on 10-27-2021 Protein Ql (U) 15 mg/dl Negative [facility] Work Phone: [phone] Serum or plasma albumin huyen urement (mass/volume)on 10-27-2021 Albumin [Mass/Vol] 2.5 g/dL 3.2-5.0 [facility] Work Phone: [phone] Serum or plasma albumin/glob ulin mass ratioon 10-27-2021 Albumin/Globulin [Mass ratio] 0.8 {ratio} 0.9-2.4 [facility] Work Phone: [phone] Serum or plasma calcium huyen urement (mass/volume)on 10-27-2021 Calcium [Mass/Vol] 7.7 mg/dL 8.5-10.1 [facility] Work Phone: [phone] Serum or plasma creatinine m easurement (mass/volume)on 10-27-2021 Creatinine [Mass/Vol] 1.38 mg/dL 0.55-1.02 [facility] Work Phone: Comment on above: The validity of the calculated GFR & GFRAA in patients over 70 years has not been determined. Clinical correlation is essential. Serum or plasma urea nitroge n measurement (mass/volume)on 10-27-2021 Urea nitrogen [Mass/Vol] 44 mg/dL 7-18 [facility] Work Phone: [phone] Squamous epithelial cells de tection in urine sediment by light microscopyon 10-27-2021 Epithelial cells.squamous LM Ql (Urine sed) 0-5 SEEN /hpf [facility] Work Phone: [phone] Thin prep Papanicolaou smear with manual screeningon 10-27-2021 Thin prep Papanicolaou smear with manual screening 20 U/L 15-37 [facility] Work Phone: [phone] Thin prep Papanicolaou smear with manual screening 10 5-15 [facility] Work Phone: Urine blood detectionon 10-04 RBC Ql (U) 10 /ul Negative [facility] Work Phone: [phone] RBC Ql (U) 0-5 SEEN /hpf [facility] Work Phone: Urine clarityon 10-27-2021 Clarity (U) Sl. Cloudy Clear [facility] Work Phone: [phone] Urine color determinationon 10-27-2021 Color (U) Straw Yellow [facility] Work Phone: [phone] Urine glucose detectionon Glucose Ql (U) Normal mg/dl Normal [facility] Work Phone: [phone] Urine leukocyte esterase det ection by dipstickon 10-27-2021 Leukocyte esterase Test strip Ql (U) 500 /ul Negative [facility] Work Phone: Urine pHon 10-27-2021 pH (U) 6.0 [pH] [facility] Work Phone: Urine sediment bacteria coun t by microscopy (number/high power field)on 10-27-2021 Bacteria LM.HPF (Urine sed) [#/Area] 4 /[HPF] None Seen [facility] Work Phone: Urine specific gravity measu rementon 10-27-2021 Specific gravity (U) [Rel density] 1.010 [facility] Work Phone: Urobilinogen Auto test strip Ql (U)on 10-27-2021 Urobilinogen Ql (U) Normal mg/dl Normal [facility] Work Phone: XR Knee - left 4 Viewson * * *Final Report* * * DATE OF EXAM: Oct 21 2021 10:42AM WOX 5202 - XR KNEE 4V AP/PA BOTH+LAT/LILLIAN LT / PROCEDURE REASON: multiple diagnoses * * * * Physician Interpretation * * * * Indication: Left knee pain and swelling after fall Comparison: X-ray left knee 05/13/2021 AP, PA, lateral and merchant views of the left knee are obtained. AP, PA and merchant views of the right knee are included. No acute fracture or dislocation. Satisfactory position of bilateral knee arthroplasty prostheses with no evidence of loosening. Unchanged alignment of a healing comminuted fracture of the left patella. Impression: No acute fracture or dislocation. Unchanged alignment of a healing left patella fracture. Bilateral knee prostheses. Carbon Brusher Assembler: [facility] HOSPITALHarleen Transcribe Date/Time: Oct 21 2021 1:43P Dictated by : PHYLLIS MEYERS MD This examination was interpreted and the report reviewed and electronically signed by: PHYLLIS MEYERS MD on Oct 21 2021 1:52PM EST [email or web address] SE_DIVISION OF RADIOLOGY Provider, [facility] [place] - 10/21/2021 * * *Final Report* * * DATE OF EXAM: Oct 21 2021 10:42AM WOX 5202 - XR KNEE 4V AP/PA BOTH+LAT/LILLIAN LT / PROCEDURE REASON: multiple diagnoses * * * * Physician Interpretation * * * * Indication: Left knee pain and swelling after fall Comparison: X-ray left knee 05/13/2021 AP, PA, lateral and merchant views of the left knee are obtained. AP, PA and merchant views of the right knee are included. No acute fracture or dislocation. Satisfactory position of bilateral knee arthroplasty prostheses with no evidence of loosening. Unchanged alignment of a healing comminuted fracture of the left patella. Impression: No acute fracture or dislocation. Unchanged alignment of a healing left patella fracture. Bilateral knee prostheses. Carbon Brusher Assembler: [facility] Transcribe Date/Time: Oct 21 2021 1:43P Dictated by : PHYLLIS MEYERS MD This examination was interpreted and the report reviewed and electronically signed by: PHYLLIS MEYERS MD on Oct 21 2021 1:52PM EST [facility] Radiology Study observation (narrative) Janie Durham XR Knee - left 4 ViewsOrdere d By: [facility] Provider on 10-21-2021 [facility] No Panel Informationon 08-22 BLANK _ [facility] Implant Date 04/29/2019 [facility] Model 5076 CapSureFix Novus [facility] PACEMAKER REMOTE CHECKon AV Delay Adaptive Paced Minimum (ms) 180 ms [facility] AV Delay Adaptive Sensed Minimum (ms) 150 ms [facility] AV Delay Adaptive Status DISABLED [facility] Battery Voltage (volts) 3.01 V C [facility] Evert RA Pacing Amplitude (volts) 1.5 V [facility] Evert RA Pacing Polarity BI [facility] Evert RA Pacing Pulse Width (ms) 0.4 ms [facility] Evert RA Sensing Amplitude (mvolts) 0.15 mV [facility] Evert RA Sensing Blanking Period (ms) 150 ms [facility] Evert RA Sensing Polarity BI [facility] Evert RA Sensing Refractory Period (ms) Auto [facility] Evert RV Pacing Amplitude (volts) 2 V [facility] Evert RV Pacing Polarity BI [facility] Evert RV Pacing Pulse Width (ms) 0.4 ms [facility] Evert RV Sensing Amplitude (mvolts) 0.9 mV [facility] Evert RV Sensing Blanking Period (ms) 200 ms [facility] Evert RV Sensing Polarity BI [facility] Hysteresis Rate (bpm) DISABLED [facility] Lead1 Mfg MDT [facility] Lead2 Mfg MDT [facility] Location RV [facility] Location RA [facility] Lower Rate (bpm) 60 {beats}/min [facility] Max Sensor Rate (bmp) 120 {beats}/min [facility] Model [id number] [address] ESPINAL [facility] PM-Device Mfg SOFIA [facility] PM-Percent Pacing (A) 14.36 % [facility] PM-Percent Pacing (V) 99.95 % [facility] PM-PMT Intervention DISABLED [facility] PM-PVC Intervention ENABLED [facility] PM-Rate Modulation Acceleration Reaction 30 s [facility] PM-Rate Modulation ADL Rate (bpm) 85 {beats}/min [facility] PM-Rate Modulation Deceleration Exercise [facility] PM-Rate Modulation [place] 3 [facility] PM-Rate Modulation Threshold MediumLow [facility] RA Bipolar Impedance ohms 418 ohm [facility] RA Unipolar Impedance ohms 304 ohm [facility] RV Bipolar Impedance ohms 437 ohm [facility] RV Unipolar Impedance 380 ohm [facility] Serial Number [id number] [facility] Serial Number [id number] [facility] Serial Number [id number] [facility] Thresh RA Capture Amplitude (volts) 1 V [facility] Thresh RA Capture Duration (ms) 0.4 ms [facility] Thresh RA Sensing Amplitude (mvolts) 1.875 mV [facility] Thresh RV Capture Amplitude (volts) 0.75 V [facility] Thresh RV Capture Duration (ms) 0.4 ms [facility] Thresh RV Sensing Amplitude (mvolts) 17.625 mV [facility] Tracking Rate (bpm) 130 {beats}/min [facility] No Panel Informationon 05-13 [facility] XR KNEE POST OP 3V AP/LAT/ME RCHANT LTon 03-12-2021 [facility] XR Knee - left AP and Latera alverto 01-15-2021 IMPRESSION: Post-operative changes. No significant change from prior. Carbon Brusher Assembler: [employer] Transcribe Date/Time: Jan 15 2021 2:19P Dictated by : CRISPIN BARR MD This examination was interpreted and the report reviewed and electronically signed by: VALERIE CRUZ MD on Jan 15 2021 3:47PM [facility] DIVISION OF RADIOLOGY * * *Final Report* * * DATE OF EXAM: Jan 15 2021 1:45PM CRX 5206 - XR KNEE 2V AP/LAT LT / PROCEDURE REASON: Infection and inflammatory reaction due to internal left knee prosthesis, initia * * * * Physician Interpretation * * * * EXAMINATION / TECHNIQUE: XR KNEE 2V AP/LAT LT PATIENT/TECHNOLOGIST PROVIDED HISTORY: LEFT KNEE, PREVIOUS INFECTION CLINICAL INFORMATION ( PROVIDED BY ORDERING CLINICIAN) : Infection and inflammatory reaction due to internal left knee prosthesis, initial encounter ([facility]) COMPARISON: 12/11/2020 RESULT: Again seen are postsurgical changes of left knee arthrodesis with a transarticular intramedullary nail, and cement spacer. Alignment is unchanged. No progressive periprosthetic lucency or periprosthetic fracture. No new destructive osseous changes. DIVISION OF RADIOLOGY Provider, [facility] [place] - 01/15/2021 * * *Final Report* * * DATE OF EXAM: Jan 15 2021 1:45PM CRX 5206 - XR KNEE 2V AP/LAT LT / PROCEDURE REASON: Infection and inflammatory reaction due to internal left knee prosthesis, initia * * * * Physician Interpretation * * * * EXAMINATION / TECHNIQUE: XR KNEE 2V AP/LAT LT PATIENT/TECHNOLOGIST PROVIDED HISTORY: LEFT KNEE, PREVIOUS INFECTION CLINICAL INFORMATION ( PROVIDED BY ORDERING CLINICIAN) : Infection and inflammatory reaction due to internal left knee prosthesis, initial encounter ([facility]) COMPARISON: 12/11/2020 RESULT: Again seen are postsurgical changes of left knee arthrodesis with a transarticular intramedullary nail, and cement spacer. Alignment is unchanged. No progressive periprosthetic lucency or periprosthetic fracture. No new destructive osseous changes. IMPRESSION IMPRESSION: Post-operative changes. No significant change from prior. Carbon Brusher Assembler: [facility]ITALB Transcribe Date/Time: Jan 15 2021 2:19P Dictated by : CRISPIN BARR MD This examination was interpreted and the report reviewed and electronically signed by: VALERIE CRUZ MD on Jan 15 2021 3:47PM EST [facility] Radiology Study observation (narrative) [facility] XR Knee - left AP and Latera lOrdered By: Cc Provider on 01-15-2021 [facility] XR Knee - left AP and Latera alverto 12-11-2020 IMPRESSION: Expected postoperative appearance of the left knee as described. Carbon Brusher Assembler: [facility] Transcribe Date/Time: Dec 11 2020 8:36A Dictated by : NAVI KITCHEN MD This examination was interpreted and the report reviewed and electronically signed by: NAVI KITCHEN MD on Dec 11 2020 8:37AM [facility] DIVISION OF RADIOLOGY * * *Final Report* * * DATE OF EXAM: Dec 11 2020 7:46AM CRX 5206 - XR KNEE 2V AP/LAT LT / PROCEDURE REASON: Infection and inflammatory reaction due to internal left knee prosthesis, initia * * * * Physician Interpretation * * * * EXAMINATION: XR KNEE 2V AP/LAT LT PATIENT/TECHNOLOGIST PROVIDED HISTORY: POST OP INFECTION CLINICAL INFORMATION ( PROVIDED BY ORDERING CLINICIAN) : Infection and inflammatory reaction due to internal left knee prosthesis, initial encounter ([facility]) TECHNIQUE: XR KNEE 2V AP/LAT LT Laterality: LEFT Number of different views (projections): 2 M: XB_1 COMPARISON: 11/09/2020 RESULT: Postsurgical changes of left knee fusion with intramedullary bin and antibiotic spacer placement are again noted. No new or progressive periprosthetic lucency. No destructive osseous change. Interval resolution of postoperative soft tissue gas. No other significant abnormality. DIVISION OF RADIOLOGY Provider, [facility] [place] - 12/11/2020 * * *Final Report* * * DATE OF EXAM: Dec 11 2020 7:46AM CRX 5206 - XR KNEE 2V AP/LAT LT / PROCEDURE REASON: Infection and inflammatory reaction due to internal left knee prosthesis, initia * * * * Physician Interpretation * * * * EXAMINATION: XR KNEE 2V AP/LAT LT PATIENT/TECHNOLOGIST PROVIDED HISTORY: POST OP INFECTION CLINICAL INFORMATION ( PROVIDED BY ORDERING CLINICIAN) : Infection and inflammatory reaction due to internal left knee prosthesis, initial encounter ([facility]) TECHNIQUE: XR KNEE 2V AP/LAT LT Laterality: LEFT Number of different views (projections): 2 M: XB_1 COMPARISON: 11/09/2020 RESULT: Postsurgical changes of left knee fusion with intramedullary bin and antibiotic spacer placement are again noted. No new or progressive periprosthetic lucency. No destructive osseous change. Interval resolution of postoperative soft tissue gas. No other significant abnormality. IMPRESSION IMPRESSION: Expected postoperative appearance of the left knee as described. Carbon Brusher Assembler: [facility]OSPITALViewpoint Construction Software Transcribe Date/Time: Dec 11 2020 8:36A Dictated by : NAVI KITCHEN MD This examination was interpreted and the report reviewed and electronically signed by: NAVI KITCHEN MD on Dec 11 2020 8:37AM EST [facility] Radiology Study observation (narrative) [facility] XR Knee - left AP and Latera lOrdered By: [facility] Provider on 12-11-2020 [facility] No Panel Informationon 10-30 IMPRESSION: DESCRIBED IN THE BODY OF THE REPORT WITH INCREASED VARUS TILTING OF THE TIBIAL COMPONENT IN THE LEFT KNEE AND 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 Carbon Brusher Assembler: [employer] Transcribe Date/Time: Oct 30 2020 8:10A Dictated by : WALESKA SEALS MD This examination was interpreted and the report reviewed and electronically signed by: WALESKA SEALS MD on Oct 30 2020 8:46AM EST DIVISION OF RADIOLOGY Radiology Study observation (narrative) [facility] No Panel InformationOrdered By: Cc Provider on 10-30-2020 [facility] XR Knee - left 4 Viewson * * *Final Report* * * DATE OF EXAM: Oct 30 2020 8:05AM CRX 5202 - XR KNEE 4V AP/PA BOTH+LAT/LILLIAN LT / PROCEDURE REASON: Left knee pain, unspecified chronicity * * * * Physician Interpretation * * * * HISTORY: Left knee pain, unspecified chronicity . left knee pain TECHNIQUE: XR KNEE 4V AP/PA BOTH+LAT/LILLIAN LT, XR LEG FRONTL [facility] AXIS Laterality: LEFT (accession [id number]), BILATERAL (accession [id number]) Number of different views (projections): 4 (accession [id number]), 1 (accession [id number]) COMPARISON: 03/31/2020 RESULT: Status post left total knee arthroplasty with varus tilting of the tibial component which has progressed since prior examination. There is resulting moderate genu varus deformity at the knee. The femoral and patellar components are unchanged and within normal limits. Marked diffuse osteopenia. Small joint effusion. Left total knee arthroplasty again visualized, unchanged and normal in appearance. The biomechanical axis on the right measures 2 degrees valgus. The biomechanical axis on the left measures 11.5 degrees varus. No other significant abnormality. ----- DIVISION OF RADIOLOGY Provider, [facility] [place] - 10/30/2020 * * *Final Report* * * DATE OF EXAM: Oct 30 2020 8:05AM CRX 5202 - XR KNEE 4V AP/PA BOTH+LAT/LILLIAN LT / PROCEDURE REASON: Left knee pain, unspecified chronicity * * * * Physician Interpretation * * * * HISTORY: Left knee pain, unspecified chronicity . left knee pain TECHNIQUE: XR KNEE 4V AP/PA BOTH+LAT/LILLIAN LT, XR LEG FRONTL HIP-[facility]L [facility] AXIS Laterality: LEFT (accession [id number]), BILATERAL (accession [id number]) Number of different views (projections): 4 (accession [id number]), 1 (accession [id number]) COMPARISON: 03/31/2020 RESULT: Status post left total knee arthroplasty with varus tilting of the tibial component which has progressed since prior examination. There is resulting moderate genu varus deformity at the knee. The femoral and patellar components are unchanged and within normal limits. Marked diffuse osteopenia. Small joint effusion. Left total knee arthroplasty again visualized, unchanged and normal in appearance. The biomechanical axis on the right measures 2 degrees valgus. The biomechanical axis on the left measures 11.5 degrees varus. No other significant abnormality. ----- IMPRESSION IMPRESSION: DESCRIBED IN THE BODY OF THE REPORT WITH INCREASED VARUS TILTING OF THE TIBIAL COMPONENT IN THE LEFT KNEE AND 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 Carbon Brusher Assembler: [employer] Transcribe Date/Time: Oct 30 2020 8:10A Dictated by : WALESKA SEALS MD This examination was interpreted and the report reviewed and electronically signed by: WALESKA SEALS MD on Oct 30 2020 8:46AM EST [facility] XR Lower extremity - bilater al AP W standingon 10-30-2020 * * *Final Report* * * DATE OF EXAM: Oct 30 2020 8:05AM CRX 5216 - XR LEG FRONTL [facility] AXIS / PROCEDURE REASON: Left knee pain, unspecified chronicity * * * * Physician Interpretation * * * * HISTORY: Left knee pain, unspecified chronicity . left knee pain TECHNIQUE: XR KNEE 4V AP/PA BOTH+LAT/LILLIAN LT, XR LEG FRONTL [facility] AXIS Laterality: LEFT (accession [id number]), BILATERAL (accession [id number]) Number of different views (projections): 4 (accession [id number]), 1 (accession [id number]) COMPARISON: 03/31/2020 RESULT: Status post left total knee arthroplasty with varus tilting of the tibial component which has progressed since prior examination. There is resulting moderate genu varus deformity at the knee. The femoral and patellar components are unchanged and within normal limits. Marked diffuse osteopenia. Small joint effusion. Left total knee arthroplasty again visualized, unchanged and normal in appearance. The biomechanical axis on the right measures 2 degrees valgus. The biomechanical axis on the left measures 11.5 degrees varus. No other significant abnormality. ----- DIVISION OF RADIOLOGY Provider, [facility] [place] - 10/30/2020 * * *Final Report* * * DATE OF EXAM: Oct 30 2020 8:05AM CRX 5216 - XR LEG FRONTL [facility] AXIS / PROCEDURE REASON: Left knee pain, unspecified chronicity * * * * Physician Interpretation * * * * HISTORY: Left knee pain, unspecified chronicity . left knee pain TECHNIQUE: XR KNEE 4V AP/PA BOTH+LAT/LILLIAN LT, XR LEG FRONTL [facility] AXIS Laterality: LEFT (accession [id number]), BILATERAL (accession [id number]) Number of different views (projections): 4 (accession [id number]), 1 (accession [id number]) COMPARISON: 03/31/2020 RESULT: Status post left total knee arthroplasty with varus tilting of the tibial component which has progressed since prior examination. There is resulting moderate genu varus deformity at the knee. The femoral and patellar components are unchanged and within normal limits. Marked diffuse osteopenia. Small joint effusion. Left total knee arthroplasty again visualized, unchanged and normal in appearance. The biomechanical axis on the right measures 2 degrees valgus. The biomechanical axis on the left measures 11.5 degrees varus. No other significant abnormality. ----- IMPRESSION IMPRESSION: DESCRIBED IN THE BODY OF THE REPORT WITH INCREASED VARUS TILTING OF THE TIBIAL COMPONENT IN THE LEFT KNEE AND 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 Carbon Brusher Assembler: [employer] Transcribe Date/Time: Oct 30 2020 8:10A Dictated by : WALESKA SEALS MD This examination was interpreted and the report reviewed and electronically signed by: WALESKA SEALS MD on Oct 30 2020 8:46AM EST [facility] XR Knee - left 4 Viewson IMPRESSION: Satisfactory appearing TKA. Joint effusion. Carbon Brusher Assembler: [employer] Transcribe Date/Time: Mar 31 2020 4:19P Dictated by : BHAKTI HERNÁNDEZ MD This examination was interpreted and the report reviewed and electronically signed by: BHAKTI HERNÁNDEZ MD on Mar 31 2020 4:20PM [facility] DIVISION OF RADIOLOGY * * *Final Report* * * DATE OF EXAM: Mar 31 2020 3:39PM WOX 5202 - XR KNEE 4V AP/PA BOTH+LAT/LILLIAN LT / PROCEDURE REASON: multiple diagnoses * * * * Physician Interpretation * * * * PROCEDURE: Left knee INDICATION: Fall, subsequent encounter Injury of left knee, subsequent encounter H/O total knee replacement, bilateral Knee swelling.pt states fell a week ago and left knee is all swollen with pain anterior and feels hot TECHNIQUE: XR KNEE 4V AP/PA BOTH+LAT/LILLIAN LT COMPARISON: None FINDINGS: There is a total knee arthroplasty in satisfactory position without evidence for loosening. No acute fracture. Suprapatellar joint effusion. No acute soft tissue abnormality. Right TKA is noted. DIVISION OF RADIOLOGY Provider, [facility] [place] - 03/31/2020 * * *Final Report* * * DATE OF EXAM: Mar 31 2020 3:39PM WOX 5202 - XR KNEE 4V AP/PA BOTH+LAT/LILLIAN LT / PROCEDURE REASON: multiple diagnoses * * * * Physician Interpretation * * * * PROCEDURE: Left knee INDICATION: Fall, subsequent encounter Injury of left knee, subsequent encounter H/O total knee replacement, bilateral Knee swelling.pt states fell a week ago and left knee is all swollen with pain anterior and feels hot TECHNIQUE: XR KNEE 4V AP/PA BOTH+LAT/LILLIAN LT COMPARISON: None FINDINGS: There is a total knee arthroplasty in satisfactory position without evidence for loosening. No acute fracture. Suprapatellar joint effusion. No acute soft tissue abnormality. Right TKA is noted. IMPRESSION IMPRESSION: Satisfactory appearing TKA. Joint effusion. Carbon Brusher Assembler: PSCB Transcribe Date/Time: Mar 31 2020 4:19P Dictated by : BHAKTI HERNÁNDEZ MD This examination was interpreted and the report reviewed and electronically signed by: BHAKTI HERNÁNDEZ MD on Mar 31 2020 4:20PM EST [facility] Radiology Study observation (narrative) [facility] Knee - left 4 ViewsOrdere d By: Ccf Provider on 03-31-2020 [facility] ANES POSTPROC EVALon 020 ANES POSTPROC EVAL HNO ID: [id number] Author: Clara Jimenez Service: ? Author Type: Anesthesiologist Type: Anesthesia Postprocedure Evaluation Filed: 07/25/2019 11:35 AM Note Text: POST ANESTHESIA EVALUATION NOTE : 1945 Procedure Summary Date: 07/25/19 Room / Location: OR01 / OR Anesthesia Start: 958 Anesthesia Stop: 113 Procedure: CYSTOURETHROSCOPY W/ URETEROSCOPY AND/OR PYELOSCOPY W/ LITHOTRIPSY (Left Abdomen) Diagnosis: Kidney stones Surgeon: Luis Connelly MD Responsible Provider: Clara Jimenez Anesthesia Type: general ASA Status: 3 Anesthesia Type: general Last vitals Vitals Value Taken Time BP 07/25/2019 11:35 AM Temp 98 07/25/2019 11:35 AM Pulse 66 07/25/2019 11:35 AM HR SpO2 66 07/25/2019 11:35 AM Resp 16 07/25/2019 11:35 AM SpO2 100 07/25/2019 11:35 AM Post Anesthesia Patient Status Patient Evaluation: PACU. PACU/ICU Patient Condition: stable. Anticipated Disposition: phase 2 then home. Neurological Status: aware and responsive. Pulmonary Status: breathing comfortably on room air . Airway Control: returned to baseline unsupported. Cardiovascular Status: stable. Pain Management: clinically adequate. - multimodal analgesia pain management approach Postoperative Hydration: acceptable. Intraoperative Events: no significant anesthesia events Anesthetic Observations: no significant anesthetic observations Recommendation: continue current plan of care. SIGNATURE: Clara Jimenez MD PATIENT NAME: Maia Nieto DATE: July 25, 2019 TIME: 11:35 AM CSN: [id number] [facility] ANES PRE-OPon 07-25-2019 ANES PRE-OP HNO ID: [id number] Author: Clara Jimenez Service: ? Author Type: Anesthesiologist Type: Anesthesia Preprocedure Evaluation Filed: 07/25/2019 9:45 AM Note Text: ANESTHESIOLOGY DAY OF SURGERY NOTE : 1945 Procedure(s) (LRB): CYSTOURETHROSCOPY W/ URETEROSCOPY AND/OR PYELOSCOPY W/ LITHOTRIPSY (Left) Surgeon(s): Luis Connelly MD Estimated body mass index is 23.41 kg/m? as calculated from the following: Height as of 07/12/19: 157.5 cm (5' 2"). Weight as of 07/12/19: 58.1 kg (128 lb). Most recent hematocrit and potassium results: Hematocrit 37.9 06/14/2019 Potassium 4.3 07/12/2019 Relevant Problems CARDIO (+) Complete heart block (HCC) (+) Coronary artery disease involving [place] coronary artery of [place] heart without angina pectoris (+) Nonrheumatic aortic valve insufficiency (+) Nonrheumatic mitral valve regurgitation (+) Prosthetic aortic valve stenosis GI (+) GERD (gastroesophageal reflux disease) -RENAL (+) Calculus of kidney (+) Chronic pyelonephritis without lesion of renal medullary necrosis (+) Stage 3 chronic kidney disease (HCC) I - PHYSICAL EVALUATION AIRWAY Patient intubated: No. Mallampati: II. TM distance: >3 FB. Neck ROM: full ROM without neurological symptoms. Mouth opening: adequate. Short neck: no. Thick neck: no DENTAL Dental findings: teeth intact. Additional exam findings: no. II - ANESTHESIA PLAN ASA Score: 3 Anesthetic Plan: general, LMA Anesthetic plan additional comments: LMA. Postoperative analgesic plan: parenteral or oral opioids and multimodal analgesia. Anesthetic Risks, Benefits, Alternatives, Personnel Discussed. Consent obtained from: patient. DNR status not reviewed with patient and/or family prior to surgery. Patient / Surrogate agrees to blood products: yes NPO Status: adequate. Significant changes in the patient condition since the History and Physical, not otherwise documented in primary service progress note: no. Potential Anesthesia issues that may suggest increased risk of complications or contractions to planned procedure: none. I have interviewed and examined the patient. I have reviewed the medical record and/or the pre-anesthesia evaluation, pertinent labs, and test results. This contains updated information obtained within 48 hours of Surgery/Procedure. SIGNATURE: Clara Jimenez MD PATIENT NAME: Maia Nieto DATE: July 25, 2019 TIME: 9:45 AM CSN: [id number] [facility] Calculi Analysison 0 Calculus Color BROWN/LIGHT BROWN [facility] Comment on above: Performed By: #### C SA ####[address] [phone] Calculus Composition 90% Calcium Oxalate Monohydrate 10% Minor Components [facility] Comment on above: Performed By: #### C SA ####[address] [phone] Calculus Size and Wt Multiple pieces. 0.2641 GRAMS [facility] Comment on above: Performed By: #### C SA ####[address] [phone] Calculus Type No Information Provided [facility] Comment on above: Performed By: #### C SA ####[address] [phone] Note This test was developed and its performance characteristics determined by [facility]'s [facility] Pathology and Laboratory Medicine [place] [facility] Comment on above: Result Comment: It h as not been cleared or approved by the FDA. [facility] is regulated under CLIA as qualified to perform high complexity testing. This test is used for clinical purposes. It should not be regarded as investigational or for research. Performed By: #### C SA ####[address] [phone] HISTORY PHYSICALon 0 HISTORY PHYSICAL HNO ID: [id number] Author: Luis Connelly MD Service: Urology Author Type: Physician Type: HANDP Filed: 07/25/2019 9:33 AM Note Text: Preoperative HANDP Chief complaint: Patient is here today for management of kidney stones History, update from last visit: Previous notes, reviewed, no significant new changes, patient is doing well, denies fever, abdominal pain, nausea or vomiting, no new voiding symptoms or constipation. Examination: Patient is awake and alert , oriented to time, person, place. Chest: unlabored breathing, equal on both sides. Heart: regular rate and rhythm, normal peripheral pulsations. Abdomen: Soft, non tender, non distended, no palpable organs. All lab results, imaging reviewed and there was no change. Assessment and plan of management: Patient is here today for management of kidney stones Plan for ureteroscopy, laser lithotripsy stent placement All patient's questions were discussed in details, outline of procedure and recovery discussed. Surgical site : left side. Luis Connelly MD July 25, 2019 9:33 AM [facility] NURSING PROGon 07-25-2019 NURSING PROG HNO ID: [id number] Author: Jen Gary RN Service: ? Author Type: Registered Nurse Type: Nursing Progress Note Filed: 07/25/2019 1:51 PM Note Text: Nursing Progress Note Topic of Note: Incidental Maia K [place] [id number]: Dr. Jimenez at bedside. NBP 213/95 HR 62 after ambulating to bathroom. Denies SOB/CP. Denies surgical pain or N/V. Tolerated eating and drinking well. Did not take routine BP meds today. Dr. Jimenez ok with going home and resuming routine BP meds. Pt and son said they would check BP at home too. This note was completed by: Jen Gary RN [facility] NURSING PROG HNO ID: [id number] Author: Jen Gary RN Service: ? Author Type: Registered Nurse Type: Nursing Progress Note Filed: 07/25/2019 12:13 PM Note Text: Nursing Progress Note Topic of Note: Incidental Maia Edmar [place] [id number]: notified NBP 200/91. Baseline high BPs. Denies pain. Lopressor ordered. This note was completed by: Jen Gary RN [facility] PT EDon 07-25-2019 PT ED HNO ID: [id number] Author: Jen Gary RN Service: ? Author Type: Registered Nurse Type: Patient Education Filed: 07/25/2019 12:04 PM Note Text: POST OP LEARNING RESPONSE INSTRUCTION PROVIDED TO: Patient and family member METHOD OF INSTRUCTION: Individual instruction Written instruction - handouts Verbal instruction PATIENT / FAMILY RESPONSE: Verbalizes understanding of: INFECTION MANAGEMENT-Signs and symptoms of an infection and importance of contacting the physician MEDICAL REGIMEN-Importance of following prescribed medical regimen POST-OPERATIVE INSTRUCTIONS-Correct actions to take to reduce postoperative complications PATIENT SAFETY PRINCIPLES WORSENING CONDITION-Signs and symptoms of a worsening condition that warrant a call to the physician FOLLOW-UP PLAN: Patient instructed to call with any further issues Follow-up with Primary Care SUPPLEMENTAL MATERIAL: None REFERRAL (RECOMMENDATION): None Electronically Signed By: Jen Gary RN In Department: [facility] PT ED HNO ID: [id number] Author: Ashely NoblesRn) KAYLIN Paz Service: Nursing Author Type: Registered Nurse Type: Patient Education Filed: 07/25/2019 9:47 AM Note Text: PRE OP LEARNING ASSESSMENT PROCEDURE/SURGERY: SURGERY: cysto, READINESS TO LEARN COGNITIVE ABILITY: Alert and oriented MOTIVATION TO LEARN: Eager FAMILY SUPPORT: High - Very involved in pt care PATIENT LEARNS BEST BY: Individual Instruction Written Instruction - Hand-outs Verbal Instruction FACTORS AFFECTING LEARNING: None PHYSICAL LIMITATIONS AFFECTING LEARNING: None Electronically Signed By: Ashely Paz RN In Department: [facility] XR RETROGRADE PYELOGRAM LTon 07-25-2019 XR RETROGRADE PYELOGRAM LT * * *Final Report* * * DATE OF EXAM: Jul 25 2019 11:18AM [facility] 5425 - XR RETROGRADE PYELOGRAM LT / PROCEDURE REASON: left * * * * Physician Interpretation * * * * XR RETROGRADE PYELOGRAM LT PROVIDED HISTORY: left retrograde pyelogram COMPARISON: CT from 03/20/2019 TECHNIQUE: Fluoroscopic Radiation Summary: Plane A, Air Kerma: 4.9 mGy Dose Area Product (DAP): 0.0 mGy*cm^2 Fluoro time: 0:37 min:sec RESULT: 10 spot images were obtained of the abdomen. Images demonstrate a catheter and wire in the region of the left ureter and left renal collecting system. Subsequently contrast was administered into the left renal collecting system which is moderately dilated. A left-sided ureteral stent was placed IMPRESSION: Fluoroscopic assistance for urologic procedure Carbon Brusher Assembler: PSCHarleen Transcribe Date/Time: Jul 25 2019 12:13P Dictated by : MATTHEW TSAI MD This examination was interpreted and the report reviewed and electronically signed by: MATTHEW TSAI MD on Jul 25 2019 12:14PM EST [id number] CN [facility] NURSING PROGon 07-16-2019 NURSING PROG HNO ID: [id number] Author: Ashely Miranda) KAYLIN Vazquez Service: Nursing Author Type: Registered Nurse Type: Nursing Progress Note Filed: 07/16/2019 12:53 PM Note Text: PACC Nurse Progress Note History AND Physical: PACC Visit Date: 07-12-2019 Original HANDP Date: N/A ED visit Date: N/A Outside HANDP Scanned Date: N/A Labs Within Last 6 Months: CBC: Date 06-14-2019 BMP/CMP: Date 07-12-2019 Urine C+S: Date 07-12-2019 neg Imaging Within Last 12 Months: N/A Cardiac Testing: EKG in last 12 Months: Yes: Date: 05-08-19, Comment: [facility] BMI Percentile (PEDS): N/A Risk Assessment: N/A Anesthesia Review: N/A Narrative: Labs acceptable Pre-op Considerations: CKD Chart Check: COMPLETED 07-01-2019 [employer] pacemaker check in [facility]. Provider has informed anesthesia. Ashely Vazquez RN July 16, 2019 12:50 PM [facility] HOSPon 07-03-2019 HOSP Patient:Lizzy Nieto MRN: Height:5' 2"(1.575 m) Weight:128 lb (58.06 kg) Outpatient Medications as of 07/25/19: ferrous sulfate 325 mg (65 mg iron) tablet citalopram hydrobromide (CELEXA) [address] (PROTONIX) 40 mg tablet carbidopa-levodopa CR (SINEMET CR) 25-100 mg per tablet pravastatin (PRAVACHOL) 40 mg tablet zinc sulfate 220 (50) mg capsule acetaminophen (TYLENOL 8 HOUR) 650 mg CR tablet fluticasone (FLONASE) 50 mcg/actuation nasal spray oxybutynin (DITROPAN) 5 mg tablet Cholecalciferol, Vitamin D3, (VITAMIN D-3) 2,000 unit cap Admission/Clinic Administered Medications as of 07/25/19: lidocaine 10 mg/mL (1 %) 1-2 mg injection (XYLOCAINE) lactated ringers infusion gentamicin 80 mg in 0.9% NaCl 50 mL Problem List: Calculus of kidney [N20.0] Chronic pyelonephritis without lesion of renal medullary necrosis [N11.9] Urge incontinence [N39.41] Hyperactivity of bladder [N31.8] Anxiety [F41.9] GERD (gastroesophageal reflux disease) [K21.9] Overactive bladder [N32.81] Coronary artery disease involving [place] coronary artery of [place] heart without angina pectoris [I25.10] Restless legs syndrome [G25.81] Stage 3 chronic kidney disease (HCC) [N18.3] Bronchitis [J40] S/P AVR [Z95.2] ODELL (iron deficiency anemia) [D50.9] Moderate protein-calorie malnutrition (HCC) [E44.0] 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] GI bleed [K92.2] Acute cystitis with hematuria [N30.01] Nonrheumatic aortic valve insufficiency [I35.1] 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, 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] Normocytic anemia [D64.9] Stress hyperglycemia [R73.9] Complete heart block (HCC) [I44.2] Atelectasis [J98.11] Transition of care performed with sharing of clinical summary [Z91.89] Volume overload [E87.70] Nonrheumatic mitral valve regurgitation [I34.0] Discharge planning issues [Z02.9] Memory deficit [R41.3] Allergies: Penicillins Amoxacillin [Amoxicillin] Date Verified: 07/25/19 Lab Values Lab Value Units Date High Low POTA* 4.3 mmol/L 07/12/2019 5.1 3.7 Progress Notes ([facility] REJ): Phyllis A Barbara 07/03/2019 12:30 PM Signed Patient scheduled for surgery on 07/25 at [facility] for LEFT URS LASER . Patient will be informed of surgery time the day before surgery between 1pm-4pm. PAT is scheduled for 07/12. order placed. Patient has been cleared by cardiology. Records are in [facility]. Progress Notes (CARD IMAGING MAIN): Papito Antunez MD 07/01/2019 1:42 PM Signed [facility] [place] [facility] Department of Cardiovascular Medicine SECTION OF CARDIOVASCULAR IMAGING July 01, 2019 Visit Type: Established Reason for visit: Follow up after cardiac surgery Events since last encounter: Completed her antibiotic course. Doing well and recovering with no complaints. Planning for a urologic procedure Medical History: PAST MEDICAL HISTORY Diagnosis Date - Anxiety - Aortic stenosis - Depression - GERD (gastroesophageal reflux disease) - GI bleed - H/O gastric bypass - History of blood transfusion - Hypertension - Hypotension due to blood loss - Kidney stones - Overactive bladder - Thrombocytopenia (HCC) Surgical History: PAST SURGICAL HISTORY Procedure Laterality Date - COLONOSCOP W/ OR W/O BRSH SPEC 12/01/2018 Colonoscopy - EGD W/O OR W/BRUSH/WASH 12/01/2018 EGD - MAMMOGRAM BILATERAL june 2010 - 2018 lap transgatric endoscopy with clipping at [facility] - PAST SURGICAL HISTORY OF bovine aortic valve - PAST SURGICAL HISTORY OF RouxEnY gastric bypass - PAST SURGICAL HISTORY OF bilat total knee replacement - PAST SURGICAL HISTORY OF hysterectomy and BSO for DUB and prolapse - PAST SURGICAL HISTORY OF tummy tuck - PICC LINE INSERT/CONSULT 04/30/2019 Family History: FAMILY HISTORY Problem Relation Age of Onset - other (Other) Brother spinal fusion - other (Other) Son IBS - other (Other) Daughter IBS - Heart Mother passed at 44 y/o from rheumatic heart disease Social History: Social History Tobacco Use - Smoking status: Former Smoker - Smokeless tobacco: Never Used - Tobacco comment: one time at 15 Substance Use Topics - Alcohol use: Not Currently Frequency: Never Binge frequency: Never - Drug use: Never Allergies: ALLERGIES Allergen Reactions - Penicillins Rash, Itching - Amoxacillin [Amoxic* Current Medications furosemide (LASIX) 20 mg tablet Take 1 tablet by mouth every 48 hours for 7 doses. perflutren lipid microspheres (DEFINITY) 1.1 mg/mL injection (to be provided with echo procedure) Inject 1.3 mL intravenously as directed. Administration Instructions: If no IV access, insert saline lock prior to administering contrast. Discontinue saline lock post exam. If patient has central line or IVAD, may access for administration according to line specific nursing protocol. Once exam is complete, flush line and de-access per line specific nursing protocol. Diluted IV Bolus: Dilute 1.3 ml of Definity with 8.7 ml of preservative-free saline. ferrous sulfate 325 mg (65 mg iron) tablet Take 1 tablet by mouth daily with breakfast. citalopram hydrobromide (CELEXA) 10 mg tablet Take 1 tablet by mouth once daily. pantoprazole DR (PROTONIX) 40 mg tablet Take 1 tablet by mouth twice daily before meals (0600/1600). carbidopa-levodopa CR (SINEMET CR) 25-100 mg per tablet Take 1 tablet by mouth twice daily. pravastatin (PRAVACHOL) 40 mg tablet Take 1 tablet by mouth once daily. aspirin 81 mg chewable tablet Take 2 tablets by mouth once daily. zinc sulfate 220 (50) mg capsule Take 1 capsule by mouth every 4 hours while awake. acetaminophen (TYLENOL 8 HOUR) 650 mg CR tablet Take 1 tablet by mouth every 8 hours as needed for Pain. NaCl 0.9% Inject 2-10 mL intravenously as directed. For Echo procedure fluticasone (FLONASE) 50 mcg/actuation nasal spray Use 2 Sprays in each nostril once daily. Rinse mouth after use. oxybutynin (DITROPAN) 5 mg tablet Take 1 tablet by mouth three times daily. Cholecalciferol, Vitamin D3, (VITAMIN D-3) 2,000 unit cap Take by mouth once daily. Physical Exam BP 134/86 Pulse 72 Resp 12 Ht 157.5 cm (5' 2") Wt 57.2 kg (126 lb) SpO2 99% BMI 23.05 kg/m? GENERAL: Alert, no distress, cooperative. SKIN: Well healed surgical scar HEENT: Normocephalic. No masses, lesions. Conjunctivae/corneas clear. NECK: No jugulovenous distention. No carotid bruits. Carotid pulse normal contour. Supple. LUNGS: Lungs clear to auscultation. No wheezing or rhonchi. CARDIAC: Normal S1 and S2; no rubs, murmurs, or gallops, normal PMI ABDOMEN: Abdomen soft, non-tender. No masses or organomegaly. EXTREMITIES: Extremities normal, no deformities, edema, clubbing or skin discoloration. Distal pulses present bilaterally. NEURO: Oriented to person, place and time, cooperative. No focal deficits. PSYCH: Pleasant; affect, mood and behavior appropriate. ECG, Labs and Imaging tests were reviewed. Prior records were also reviewed. Relevant Studies: Echo Apr 2019 - Technically difficult exam due to bandages/chest tubes/wound. - Exam indication: S/P aortic root replacment, MVr - The left ventricle is normal in size. Left ventricular systolic function is hyperdynamic. EF = 75 ? 5% (visual est.) - The right ventricle is normal in size. Right ventricular systolic function is normal. - Daniel Mitral Valve Annuloplasty Ring (size #29). There is trace mitral valve regurgitation. The peak gradient is 9 mmHg and the mean gradient is 4 mmHg. - S/P aortic root replacement (Homograft size #21). The peak gradient is 30 mmHg and the mean gradient is 15 mmHg. - There is a resting intracavitary gradient of 62mmHg caused by cavitary obliteration. - There is trivial lateral pericardial effusion and small pericardial effusion sdjacent to the right ventricle. There is a left pleural effusion. There appears to be a fluid collection anterior to the RV. - Exam was compared with the prior echocardiographic exam performed on 12/07/2018. Now post AVR ==== IMPRESSION and PLAN: 74 year old lady who recently underwent AVR (homograft #21) and MV repair (Sanchez band 29) on 04/22/[address] Rios - she had bioP IE with aortic root abscess. Postop course notable for CHB requiring DC-PPM. Good post op result. Antibiotic course completed. Comorbidities include PUD/GIB, kidney stones, and Akil-en-Y gastric bypass. From a cardiac standpoint, she is doing well and recovering with no complaints. Planning for a urologic intervention for her kidney stone. No cardiac contraindications. I would favor she takes Clindamycin 600 mg (she has PCN allergy) an hour prior to the procedure. I have given her the prescription. I have also recommended cardiac rehabilitation after she is done with above. She will call my office and will provide her with the prescription. Follow up with me in 6 months with repeat echo, earlier if need.melanie Antunez MD, [facility] [employer] Custodianfield sales specialist, [facility] Staff, Section of Cardiovascular Imaging Department of Cardiovascular Medicine [facility] [place] [facility] NURSING PROGon 03-29-2019 NURSING PROG HNO ID: [id number] Author: Kerrie (Rn) KAYLIN Riddle Service: ? Author Type: Registered Nurse Type: Nursing Progress Note Filed: 03/29/2019 8:58 AM Note Text: Late entry 0830- Dr. Beckman at [facility] speaking with patient and daughter about risks for surgery today without cardiac clearance. Daughter and patient agree to cancel surgery at this time and follow up with cardiology for clearance prior to surgery. Information given to daughter regarding cardiac clearance needed. Dr. Connelly at bedside and agrees with Dr. Beckman to cancel surgery and wait for cardiac clearance. 0850-patient given clothes to get dresses. Procedure canceled. [facility] PLAN OF CAREon 03-29-2019 PLAN OF CARE HNO ID: [id number] Author: Anatoly Beckman Service: Anesthesiology Author Type: Anesthesiologist Type: Plan of Care Filed: 03/29/2019 9:00 AM Note Text: Patient was seen today in preoperative for possible laser lithotripsy. Noted to have increased aortic valve gradients on prior echoes. She has followed up with Papito Antunez, cardiology, following previous admissions in the [facility]. Noted in prior cardiology notes (01/2019) that the patient may benefit from repeat echo or 4-D CAT scan. Given her recent fall as well as elevated gradients on echo from December 2018, the patient would benefit from cardiac clearance as well as repeat echo prior to non-urgent laser lithotripsy. Both myself and Dr. Connelly have communicated this with the patient and her daughter and all parties are in understanding. I will send a message to Dr. Antunez and let him know my thoughts regarding cardiac clearance and need for echo. Anatoly Beckman, DO 8:59 AM March 29, 2019 [facility] PT EDon 03-29-2019 PT ED HNO ID: [id number] Author: Kerrie NoblesRn) KAYLIN Riddle Service: ? Author Type: Registered Nurse Type: Patient Education Filed: 03/29/2019 8:31 AM Note Text: PATIENT EDUCATION TOPIC: PROCEDURE / SURGERY: Pre-op Teaching: Logistics PATIENT NAME: Maia Nieto PATIENT LOCATION: [facility] OR POOL/[facility] OR POOL READINESS TO LEARN COGNITIVE ABILITY: Alert and oriented MOTIVATION TO LEARN: Eager FAMILY SUPPORT: None - Unavailable/disinter ested INSTRUCTION PROVIDED TO: Patient PATIENT LEARNS BEST BY: Individual Instruction FACTORS AFFECTING LEARNING: None PHYSICAL LIMITATIONS AFFECTING LEARNING: None LEARNING RESPONSE DIAGNOSIS: ADULT: Well Adult PATIENT/FAMILY RESPONSE: Verbalizes understanding of: PRE-OPERATIVE INSTRUCTIONS-Correct action to take to follow pre-operative instructions METHOD OF INSTRUCTION: Individual instruction FOLLOW-UP PLAN: Complete - No need for follow-up INSTRUCTIONAL AIDS USED: NA SUPPLEMENTAL MATERIAL PROVIDED TO PATIENT: None REFERRAL (RECOMMENDATION): None Electronically Signed By: Kerrie Riddle RN [facility] HOSPon 03-22-2019 HOSP Patient:Lizzy Nieto MRN: Height:5' 5"(1.651 m) Weight:128 lb (58.06 kg) Outpatient Medications as of 03/29/19: pantoprazole DR (PROTONIX) 40 mg tablet ferrous sulfate 325 mg (65 mg iron) tablet fluticasone (FLONASE) 50 mcg/actuation nasal spray oxybutynin (DITROPAN) 5 mg tablet carbidopa-levodopa CR (SINEMET CR) 25-100 mg per tablet pravastatin (PRAVACHOL) 40 mg tablet citalopram hydrobromide (CELEXA) 10 mg tablet traZODone (DESYREL) 100 mg tablet Cholecalciferol, Vitamin D3, (VITAMIN D-3) 2,000 unit cap VITAMIN B COMPLEX (SUPER B COMPLEX ORAL) Admission/Clinic Administered Medications as of 03/29/19: Patient has no admission medications. Problem List: Calculus of kidney [N20.0] Chronic pyelonephritis without lesion of renal medullary necrosis [N11.9] Urge incontinence [N39.41] Hyperactivity of bladder [N31.8] Anxiety [F41.9] GERD (gastroesophageal reflux disease) [K21.9] Hypertension [I10] Overactive bladder [N32.81] Coronary artery disease involving [place] coronary artery of [place] heart without angina pectoris [I25.10] Restless legs syndrome [G25.81] Stage 3 chronic kidney disease (HCC) [N18.3] Bronchitis [J40] S/P AVR [Z95.2] Anemia due to acute blood loss [D62] Moderate protein-calorie malnutrition (HCC) [E44.0] 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 Please let us know if she agrees so we can schedule her surgery. Please udpate Phyllis if she agrees. Thank you MD Birgit Ambriz RN 03/21/2019 11:10 AM Signed Please see other encounter dated 03/20/19. Will done this encounter as being taken care of in the other encounter. Phyllis Jimenez 03/22/2019 10:13 AM Signed Patient scheduled for surgery on 03/29 at [facility] for LEFT LASER URS. Patient will be informed of surgery time the day before surgery between 1pm-4pm. Patient was in ER on 03/01 and seen PCP 03/04. Records scanned into [employer].. UC negative 03/20 Progress Notes ([facility]): Carmelo Kidney PSS 03/20/2019 4:41 PM Signed Patient's daughter, Cristina, returning call on behalf of patient. Cristina states the patient is unsure of what the message was about. Cristina would like a return call to discuss. Please advise. Birgit Massey RN 03/21/2019 11:09 AM Signed Called and left message on daughter's cell phone that we would call back to discuss. Presuming that Dr. Connelly called pt. yesterday and perhaps left message as below (another phone encounter): Please update the patient: Stone left kidney 11 mm Suggest treatment with scope, laser and stent. Please let us know if she agrees so we can schedule her surgery. Please udpate Phyllis if she agrees. Thank you Luis Connelly MD Advised daughter Cristina that we would call back to discuss. Will continue to try throughout the day. Birgit Massey RN 03/21/2019 7:44 PM Signed Called and spoke to daughter Cristina. Read her Dr. Connelly's message. They are wishing to proceed with the surgery. Will route to the blanchard grinder operator Phyllis. Pt. is doing alright, however, the pain seems to be getting worse. Cristina states that her mother has a high pain tolerance but she is having increasing pain. She has only taken tylenol and it doesn't touch her. (pt. has hx of GI bleed recently and was admitted to hospital so all NSAIDs are out). She is vigorously hydrating. Cristina is wondering if there is anything else for pain that she could have. Reviewed ER precautions. Intolerable pain, fever, inability to void - report to ER. In the meantime, will route to DR. Connelly to see if there is anything else he can prescribe. PLAN: Send to [facility] for surgery scheduling. Not sure if complete preadmission will be needed as pt. was inpatient at [facility] 2 weeks ago. Advised Cristina that [facility] would reach out. Will route to Dr. Connelly for any recommendation on pain. Luis Connelly MD, MD 03/22/2019 7:41 AM Signed Addended by: LUIS CONNELLY MD on: 03/22/2019 07:41 AM Modules accepted: Orders Apple Nova RN 03/22/2019 11:22 AM Signed Luis Connelly MD [facility] Nurse; [facility] Surg Scheduling 3 hours ago (7:41 AM) [facility] can you please schedule the patient for surgery MAGAL[facility] Nurses can we call the ultram to her pharmacy. Thank you MD Apple Ambriz RN 03/22/2019 11:27 AM Signed The following prescriptions have been called to [facility] pharmacy 03/22/2019 at 11:23 AM by Apple Nova RN. I spoke with Yogesh in the pharmacy. Signed Prescriptions Disp Refills traMADol (ULTRAM) 50 mg tablet 16 tablet 0 Sig: Take 1 tablet by mouth every 6 hours as needed for Pain (severe pain) for up to 4 days. DANITA Class: C-IV Authorizing Provider: LUIS CONNELLY RN 03/22/2019 11:36 AM Signed Called daughter Cristina to inform that script called for ultram. Also informed her that her mother was just contacted and told of her 03/29 surgery at [facility]. Reviewed a bit of information with Cristina. Normal [facility] .Auto Diffon 12-05-2018 Ammonia (P) [Mass/Vol] 0.50 10 3/mcL Normal 0.09-1.40 [facility] ([place]) Comment on above: Performed By: #### L AC, CBC, ADIFF, ANEU, PRO, BMP, MG, GFR, TROPI, HFP #### [address] [address] Basophils (Bld) [#/Vol] 0.10 10 3/mcL Normal 0.00-0.27 [facility] ([place]) Comment on above: Performed By: #### L AC, CBC, ADIFF, ANEU, PRO, BMP, MG, GFR, TROPI, HFP #### [address] [address] Basophils/100 WBC (Bld) 0.6 % Normal 0.0-2.5 A [facility] ([place]) Comment on above: Performed By: #### L AC, CBC, ADIFF, ANEU, PRO, BMP, MG, GFR, TROPI, HFP #### [address] [address] Eosinophils (Bld) [#/Vol] 0.10 10 3/mcL Normal 0.00-0.65 [facility] ([place]) Comment on above: Performed By: #### L AC, CBC, ADIFF, ANEU, PRO, BMP, MG, GFR, TROPI, HFP #### [address] [address] Eosinophils/100 WBC (Bld) 1.4 % Normal 0.0-6.0 [facility] ([place]) Comment on above: Performed By: #### L AC, CBC, ADIFF, ANEU, PRO, BMP, MG, GFR, TROPI, HFP #### [address] [address] Lymphocytes (Bld) [#/Vol] 0.70 10 3/mcL Low 0.90-4.32 [facility] ([place]) Comment on above: Performed By: #### L AC, CBC, ADIFF, ANEU, PRO, BMP, MG, GFR, TROPI, HFP #### [address] [address] Lymphocytes/100 WBC (Bld) 7.6 % Low 20.0-40.0 [facility] ([place]) Comment on above: Performed By: #### L AC, CBC, ADIFF, ANEU, PRO, BMP, MG, GFR, TROPI, HFP #### [address] [address] Monocytes/100 WBC (Bld) 5.6 % Normal 2.0-13.0 A [facility] ([place]) Comment on above: Performed By: #### L AC, CBC, ADIFF, ANEU, PRO, BMP, MG, GFR, TROPI, HFP #### [address] [address] Neutrophils/100 WBC (Bld) 84.8 % High 50.0-75.0 [facility] ([place]) Comment on above: Performed By: #### L AC, CBC, ADIFF, ANEU, PRO, BMP, MG, GFR, TROPI, HFP #### [address] [address] .GFRon 12-05-2018 GFR Non- >60 Normal [facility] ([place]) Comment on above: Result Comment: GFR Population mean for , Non- Americans Ages 20-29 = 116 mL/min/1.73 sq.m. Ages 30-39 = 107 mL/min/1.73 sq.m. Ages 40-49 = 99 mL/min/1.73 sq.m. Ages 50-59 = 93 mL/min/1.73 sq.m. Ages 60-69 = 85 mL/min/1.73 sq.m. Ages 70+ = 75 mL/min/1.73 sq.m. Chronic Kidney Disease: Less than 60 mL/min/1.73 square meters End Stage Renal Disease: Less than 15 mL/min/1.73 square meters Performed By: #### L AC, CBC, ADIFF, ANEU, PRO, BMP, MG, GFR, TROPI, HFP #### [address] [address] GFR >60 Normal [facility] ([place]) Comment on above: Result Comment: GFR Population mean for , Non- Americans Ages 20-29 = 116 mL/min/1.73 sq.m. Ages 30-39 = 107 mL/min/1.73 sq.m. Ages 40-49 = 99 mL/min/1.73 sq.m. Ages 50-59 = 93 mL/min/1.73 sq.m. Ages 60-69 = 85 mL/min/1.73 sq.m. Ages 70+ = 75 mL/min/1.73 sq.m. Chronic Kidney Disease: Less than 60 mL/min/1.73 square meters End Stage Renal Disease: Less than 15 mL/min/1.73 square meters Performed By: #### L AC, CBC, ADIFF, ANEU, PRO, BMP, MG, GFR, TROPI, HFP #### [address] [address] .NEUABSon 12-05-2018 Neutrophils (Bld) [#/Vol] 7.50 10 3/mcL Normal 2.25-8.10 [facility] ([place]) Comment on above: Performed By: #### L AC, CBC, ADIFF, ANEU, PRO, BMP, MG, GFR, TROPI, HFP #### [place] [id number] BMPon 12-05-2018 Creatinine [Mass/Vol] 0.78 mg/dL Normal 0.50-1.20 [facility] ([place]) Comment on above: Performed By: #### L AC, CBC, ADIFF, ANEU, PRO, BMP, MG, GFR, TROPI, HFP #### [address] [address] Urea nitrogen/Creatinine [Mass ratio] 30.8 ratio High 10.0-22.0 [facility] ([place]) Comment on above: Performed By: #### L AC, CBC, ADIFF, ANEU, PRO, BMP, MG, GFR, TROPI, HFP #### [address] [address] Calcium [Mass/Vol] 7.3 mg/dL Low 8.4-10.1 [facility] ([place]) Comment on above: Performed By: #### L AC, CBC, ADIFF, ANEU, PRO, BMP, MG, GFR, TROPI, HFP #### [address] [address] Chloride [Moles/Vol] 112 mmol/L High 98-110 [facility] ([place]) Comment on above: Performed By: #### L AC, CBC, ADIFF, ANEU, PRO, BMP, MG, GFR, TROPI, HFP #### [address] [address] CO2 [Moles/Vol] 20 mmol/L Low 22-32 [facility] ([place]) Comment on above: Performed By: #### L AC, CBC, ADIFF, ANEU, PRO, BMP, MG, GFR, TROPI, HFP #### [address] [address] Electrolyte Balance 8.0 mEq/L Normal 4.0-15.0 [facility] ([place]) Comment on above: Performed By: #### L AC, CBC, ADIFF, ANEU, PRO, BMP, MG, GFR, TROPI, HFP #### [address] [address] Glucose [Mass/Vol] 82 mg/dL Normal 82-115 [facility] ([place]) Comment on above: Performed By: #### L AC, CBC, ADIFF, ANEU, PRO, BMP, MG, GFR, TROPI, HFP #### [address] [address] Potassium [Moles/Vol] 3.1 mmol/L Low 3.5-5.0 [facility] ([place]) Comment on above: Performed By: #### L AC, CBC, ADIFF, ANEU, PRO, BMP, MG, GFR, TROPI, HFP #### [address] [address] Sodium [Moles/Vol] 140 mmol/L Normal 136-145 [facility] ([place]) Comment on above: Performed By: #### L AC, CBC, ADIFF, ANEU, PRO, BMP, MG, GFR, TROPI, HFP #### [address] [address] Urea nitrogen [Mass/Vol] 24.0 mg/dL High 8.0-22.0 [facility] ([place]) Comment on above: Performed By: #### L AC, CBC, ADIFF, ANEU, PRO, BMP, MG, GFR, TROPI, HFP #### [address] [address] CBCon 12-05-2018 Erythrocyte distribution width (RBC) [Ratio] 16.3 % High 11.5-15.5 [facility] ([place]) Comment on above: Performed By: #### L AC, CBC, ADIFF, ANEU, PRO, BMP, MG, GFR, TROPI, HFP #### [place] [id number] Hematocrit (Bld) [Volume fraction] 22.9 % Low 34.0-46.0 [facility] ([place]) Comment on above: Performed By: #### L AC, CBC, ADIFF, ANEU, PRO, BMP, MG, GFR, TROPI, HFP #### [place] [address] Hemoglobin (Bld) [Mass/Vol] 7.9 G/dL Low 12.0-16.0 [facility] ([place]) Comment on above: Performed By: #### L AC, CBC, ADIFF, ANEU, PRO, BMP, MG, GFR, TROPI, HFP #### [place] [id number] MCH (RBC) [Entitic mass] 31.0 pg Normal 27.0-33.0 [facility] ([place]) Comment on above: Performed By: #### L AC, CBC, ADIFF, ANEU, PRO, BMP, MG, GFR, TROPI, HFP #### [place] [id number] MCHC (RBC) [Mass/Vol] 34.4 G/dL Normal 32.0-36.0 [facility] ([place]) Comment on above: Performed By: #### L AC, CBC, ADIFF, ANEU, PRO, BMP, MG, GFR, TROPI, HFP #### [place] [id number] MCV (RBC) [Entitic vol] 90.3 fL Normal 80.0-99.0 [facility] ([place]) Comment on above: Performed By: #### L AC, CBC, ADIFF, ANEU, PRO, BMP, MG, GFR, TROPI, HFP #### [address] [address] Platelet mean volume (Bld) [Entitic vol] 8.3 fL Normal 6.6-10.5 [facility] ([place]) Comment on above: Performed By: #### L AC, CBC, ADIFF, ANEU, PRO, BMP, MG, GFR, TROPI, HFP #### [place] [id number] Platelets (Bld) [#/Vol] 94 10 3/mcL Low 150-450 [facility] ([place]) Comment on above: Performed By: #### L AC, CBC, ADIFF, ANEU, PRO, BMP, MG, GFR, TROPI, HFP #### [place] [address] RBC (Bld) [#/Vol] 2.54 10 6/mcL Low 4.10-5.30 [facility] ([place]) Comment on above: Performed By: #### L AC, CBC, ADIFF, ANEU, PRO, BMP, MG, GFR, TROPI, HFP #### [place] [address] WBC (Bld) [#/Vol] 8.80 10 3/mcL Normal 4.50-10.80 [facility] ([place]) Comment on above: Performed By: #### L AC, CBC, ADIFF, ANEU, PRO, BMP, MG, GFR, TROPI, HFP #### [place] [id number] HHon 12-05-2018 Hematocrit (Bld) [Volume fraction] 25.1 % Low 34.0-46.0 [facility] ([place]) Comment on above: Performed By: #### L AC, CBC, ADIFF, ANEU, PRO, BMP, MG, GFR, TROPI, HFP #### [place] [address] Hemoglobin (Bld) [Mass/Vol] 8.6 G/dL Low 12.0-16.0 [facility] ([place]) Comment on above: Performed By: #### L AC, CBC, ADIFF, ANEU, PRO, BMP, MG, GFR, TROPI, HFP #### [place] [address] Hematocrit (Bld) [Volume fraction] 25.6 % Low 34.0-46.0 [facility] ([place]) Comment on above: Performed By: #### L AC, CBC, ADIFF, ANEU, PRO, BMP, MG, GFR, TROPI, HFP #### [place] [address] Hemoglobin (Bld) [Mass/Vol] 8.8 G/dL Low 12.0-16.0 [facility] ([place]) Comment on above: Performed By: #### L AC, CBC, ADIFF, ANEU, PRO, BMP, MG, GFR, TROPI, HFP #### [place] [address] MGon 12-05-2018 Magnesium [Mass/Vol] 1.6 mg/dL Normal 1.6-2.4 [facility] ([place]) Comment on above: Performed By: #### L AC, CBC, ADIFF, ANEU, PRO, BMP, MG, GFR, TROPI, HFP #### [place] [address] .Auto Diffon 12-04-2018 Ammonia (P) [Mass/Vol] 0.60 10 3/mcL Normal 0.09-1.40 [facility] ([place]) Comment on above: Performed By: #### L AC, CBC, ADIFF, ANEU, PRO, BMP, MG, GFR, TROPI, HFP #### [place] [address] Basophils (Bld) [#/Vol] 0.10 10 3/mcL Normal 0.00-0.27 [facility] ([place]) Comment on above: Performed By: #### L AC, CBC, ADIFF, ANEU, PRO, BMP, MG, GFR, TROPI, HFP #### [place] [id number] Basophils/100 WBC (Bld) 0.9 % Normal 0.0-2.5 A [facility] ([place]) Comment on above: Performed By: #### L AC, CBC, ADIFF, ANEU, PRO, BMP, MG, GFR, TROPI, HFP #### [address] [address] Eosinophils (Bld) [#/Vol] 0.10 10 3/mcL Normal 0.00-0.65 [facility] ([place]) Comment on above: Performed By: #### L AC, CBC, ADIFF, ANEU, PRO, BMP, MG, GFR, TROPI, HFP #### [address] [address] Eosinophils/100 WBC (Bld) 1.1 % Normal 0.0-6.0 [facility] ([place]) Comment on above: Performed By: #### L AC, CBC, ADIFF, ANEU, PRO, BMP, MG, GFR, TROPI, HFP #### [address] [address] Lymphocytes (Bld) [#/Vol] 0.80 10 3/mcL Low 0.90-4.32 [facility] ([place]) Comment on above: Performed By: #### L AC, CBC, ADIFF, ANEU, PRO, BMP, MG, GFR, TROPI, HFP #### [address] [address] Lymphocytes/100 WBC (Bld) 9.3 % Low 20.0-40.0 [facility] ([place]) Comment on above: Performed By: #### L AC, CBC, ADIFF, ANEU, PRO, BMP, MG, GFR, TROPI, HFP #### [address] [address] Monocytes/100 WBC (Bld) 6.9 % Normal 2.0-13.0 [facility] ([place]) Comment on above: Performed By: #### L AC, CBC, ADIFF, ANEU, PRO, BMP, MG, GFR, TROPI, HFP #### [address] [address] Neutrophils/100 WBC (Bld) 81.8 % High 50.0-75.0 [facility] ([place]) Comment on above: Performed By: #### L AC, CBC, ADIFF, ANEU, PRO, BMP, MG, GFR, TROPI, HFP #### [address] [address] .GFRon 12-04-2018 GFR Non- >60 Normal [facility] ([place]) Comment on above: Result Comment: GFR Population mean for , Non- Americans Ages 20-29 = 116 mL/min/1.73 sq.m. Ages 30-39 = 107 mL/min/1.73 sq.m. Ages 40-49 = 99 mL/min/1.73 sq.m. Ages 50-59 = 93 mL/min/1.73 sq.m. Ages 60-69 = 85 mL/min/1.73 sq.m. Ages 70+ = 75 mL/min/1.73 sq.m. Chronic Kidney Disease: Less than 60 mL/min/1.73 square meters End Stage Renal Disease: Less than 15 mL/min/1.73 square meters Performed By: #### L AC, CBC, ADIFF, ANEU, PRO, BMP, MG, GFR, TROPI, HFP #### [place] [address] GFR >60 Normal [facility] ([place]) Comment on above: Result Comment: GFR Population mean for , Non- Americans Ages 20-29 = 116 mL/min/1.73 sq.m. Ages 30-39 = 107 mL/min/1.73 sq.m. Ages 40-49 = 99 mL/min/1.73 sq.m. Ages 50-59 = 93 mL/min/1.73 sq.m. Ages 60-69 = 85 mL/min/1.73 sq.m. Ages 70+ = 75 mL/min/1.73 sq.m. Chronic Kidney Disease: Less than 60 mL/min/1.73 square meters End Stage Renal Disease: Less than 15 mL/min/1.73 square meters Performed By: #### L AC, CBC, ADIFF, ANEU, PRO, BMP, MG, GFR, TROPI, HFP #### [address] [address] .NEUABSon 12-04-2018 Neutrophils (Bld) [#/Vol] 6.70 10 3/mcL Normal 2.25-8.10 [facility] ([place]) Comment on above: Performed By: #### L AC, CBC, ADIFF, ANEU, PRO, BMP, MG, GFR, TROPI, HFP #### [address] [address] B12on 12-04-2018 Cobalamin (Vitamin B12) [Mass/Vol] 954 pg/mL High 211-911 [facility] ([place]) Comment on above: Performed By: #### L AC, CBC, ADIFF, ANEU, PRO, BMP, MG, GFR, TROPI, HFP #### [address] [address] BMPon 12-04-2018 Creatinine [Mass/Vol] 0.86 mg/dL Normal 0.50-1.20 [facility] ([place]) Comment on above: Performed By: #### L AC, CBC, ADIFF, ANEU, PRO, BMP, MG, GFR, TROPI, HFP #### [place] [id number] Urea nitrogen/Creatinine [Mass ratio] 47.7 ratio High 10.0-22.0 [facility] ([place]) Comment on above: Performed By: #### L AC, CBC, ADIFF, ANEU, PRO, BMP, MG, GFR, TROPI, HFP #### [address] [address] Calcium [Mass/Vol] 7.0 mg/dL Low 8.4-10.1 [facility] ([place]) Comment on above: Performed By: #### L AC, CBC, ADIFF, ANEU, PRO, BMP, MG, GFR, TROPI, HFP #### [address] [address] Chloride [Moles/Vol] 111 mmol/L High 98-110 [facility] ([place]) Comment on above: Performed By: #### L AC, CBC, ADIFF, ANEU, PRO, BMP, MG, GFR, TROPI, HFP #### [address] [address] CO2 [Moles/Vol] 18 mmol/L Low 22-32 [facility] ([place]) Comment on above: Performed By: #### L AC, CBC, ADIFF, ANEU, PRO, BMP, MG, GFR, TROPI, HFP #### [place] [id number] Electrolyte Balance 9.0 mEq/L Normal 4.0-15.0 [facility] ([place]) Comment on above: Performed By: #### L AC, CBC, ADIFF, ANEU, PRO, BMP, MG, GFR, TROPI, HFP #### [place] [address] Glucose [Mass/Vol] 82 mg/dL Normal 82-115 [facility] ([place]) Comment on above: Performed By: #### L AC, CBC, ADIFF, ANEU, PRO, BMP, MG, GFR, TROPI, HFP #### [place] [id number] Potassium [Moles/Vol] 3.6 mmol/L Normal 3.5-5.0 [facility] ([place]) Comment on above: Performed By: #### L AC, CBC, ADIFF, ANEU, PRO, BMP, MG, GFR, TROPI, HFP #### [place] [address] Sodium [Moles/Vol] 138 mmol/L Normal 136-145 [facility] ([place]) Comment on above: Performed By: #### L AC, CBC, ADIFF, ANEU, PRO, BMP, MG, GFR, TROPI, HFP #### [place] [address] Urea nitrogen [Mass/Vol] 41.0 mg/dL High 8.0-22.0 [facility] ([place]) Comment on above: Performed By: #### L AC, CBC, ADIFF, ANEU, PRO, BMP, MG, GFR, TROPI, HFP #### [address] [address] CBCon 12-04-2018 Erythrocyte distribution width (RBC) [Ratio] 15.3 % Normal 11.5-15.5 [facility] ([place]) Comment on above: Performed By: #### L AC, CBC, ADIFF, ANEU, PRO, BMP, MG, GFR, TROPI, HFP #### [place] [id number] Hematocrit (Bld) [Volume fraction] 23.9 % Low 34.0-46.0 [facility] ([place]) Comment on above: Performed By: #### L AC, CBC, ADIFF, ANEU, PRO, BMP, MG, GFR, TROPI, HFP #### [place] [id number] Hemoglobin (Bld) [Mass/Vol] 8.4 G/dL Low 12.0-16.0 [facility] ([place]) Comment on above: Performed By: #### L AC, CBC, ADIFF, ANEU, PRO, BMP, MG, GFR, TROPI, HFP #### [place] [id number] MCH (RBC) [Entitic mass] 31.3 pg Normal 27.0-33.0 [facility] ([place]) Comment on above: Performed By: #### L AC, CBC, ADIFF, ANEU, PRO, BMP, MG, GFR, TROPI, HFP #### [place] [id number] MCHC (RBC) [Mass/Vol] 35.2 G/dL Normal 32.0-36.0 [facility] ([place]) Comment on above: Performed By: #### L AC, CBC, ADIFF, ANEU, PRO, BMP, MG, GFR, TROPI, HFP #### [place] [id number] MCV (RBC) [Entitic vol] 88.9 fL Normal 80.0-99.0 [facility] ([place]) Comment on above: Performed By: #### L AC, CBC, ADIFF, ANEU, PRO, BMP, MG, GFR, TROPI, HFP #### [place] [id number] Platelet mean volume (Bld) [Entitic vol] 8.1 fL Normal 6.6-10.5 [facility] ([place]) Comment on above: Performed By: #### L AC, CBC, ADIFF, ANEU, PRO, BMP, MG, GFR, TROPI, HFP #### [address] [address] Platelets (Bld) [#/Vol] 84 10 3/mcL Low 150-450 [facility] ([place]) Comment on above: Performed By: #### L AC, CBC, ADIFF, ANEU, PRO, BMP, MG, GFR, TROPI, HFP #### [place] [id number] [place] [address] RBC (Bld) [#/Vol] 2.69 10 6/mcL Low 4.10-5.30 [facility] ([place]) Comment on above: Performed By: #### L AC, CBC, ADIFF, ANEU, PRO, BMP, MG, GFR, TROPI, HFP #### [address] [address] WBC (Bld) [#/Vol] 8.20 10 3/mcL Normal 4.50-10.80 [facility] ([place]) Comment on above: Performed By: #### L AC, CBC, ADIFF, ANEU, PRO, BMP, MG, GFR, TROPI, HFP #### [address] [address] [address] ANGIOGRAPHY ABD AORTA + I LIOFEMORALon 12-04-2018 CT ANGIOGRAPHY ABD AORTA + ILIOFEMORAL ORIGINAL CT ANGIOGRAPHY ABD AORTA + ILIOFEMORAL CLINICAL INDICATION: Melanoma, dark stools, GI bleed, 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 This exam was performed according to our departmental dose-optimization program which includes automated exposure control, adjustment of the mA and/or kVp according to patient size and/or use of iterative reconstruction technique where applicable. FINDINGS: There is trace LEFT pleural fluid. The lung bases are otherwise clear. Noncontrast images through the abdomen and pelvis show surgical curtis/sutures along the anterior abdominal wall, as well as anastomotic sutures consistent with patient's given history of gastric bypass procedure. The patient is status post cholecystectomy. A stone is present in the LEFT renal pelvis. Atherosclerotic calcifications are present in the aorta. Anastomotic sutures are seen in the LEFT mid abdomen. Arterial phase images through the abdomen and pelvis show polypoid enhancement within the 1st segment of the duodenum, which does not change configuration on the delayed phase images, concerning for a bleeding mass. No additional focus of abnormal enhancement is identified within the bowel. The liver, spleen, adrenal glands, and pancreas are normal. There are no dilated loops of small bowel. The large bowel shows no acute abnormality. There is no pneumoperitoneum. The kidneys enhance symmetrically without enhancing mass or evidence of obstruction. The stone in the LEFT renal pelvis measures 11 mm diameter. No evidence of obstruction. The ureters are not dilated. The urinary bladder is normal. The uterus is surgically absent. No adnexal mass or free pelvic fluid. No lymphadenopathy within the abdomen or pelvis. The abdominal wall is intact. There are no aggressive osseous lesions or acute osseous findings. The bones appear demineralized. Multilevel degenerative disc disease is seen, with facet arthropathy most prominent the lower lumbar spine. No compression deformity. The aorta is atherosclerotic and nonaneurysmal. The celiac, SMA, and renal origins are widely patent. There is stenosis at the origin of the ROSAMARIA secondary to mixed calcific and noncalcific atherosclerotic plaque, with reconstitution through distal vessels. No stenosis of the iliac or common femoral arterial vessels is seen. IMPRESSION: 1. Enhancing polypoid lesion within the 1st segment of the duodenum concerning for slowly bleeding mass. 2. Trace LEFT pleural effusion. 3. Prior cholecystectomy, gastric bypass, and hysterectomy. 4. 11 mm nonobstructing stone in the LEFT renal pelvis. I have personally reviewed the images of this examination and agree with the resident's findings and interpretation. Interpreted By: Avtar Mayers MD Preliminary Report By: Prabhakar Dawn DO Electronically Signed By: Avtar Mayers MD Dictated Date: 12/03/2018 11:01:51 PM Prelim Date: 12/03/2018 11:18:49 PM Sign Date: 12/03/2018 11:30:57 PM Normal [facility] ([place]) [place] 12-04-2018 Ferritin [Mass/Vol] 361 ng/mL High 8-252 [facility] ([place]) Comment on above: Performed By: #### L AC, CBC, ADIFF, ANEU, PRO, BMP, MG, GFR, TROPI, HFP #### [place] [address] FESon 12-04-2018 Iron [Mass/Vol] 114 ug/dL Normal 37-170 [facility] ([place]) Comment on above: Performed By: #### L AC, CBC, ADIFF, ANEU, PRO, BMP, MG, GFR, TROPI, HFP #### [place] [address] Iron Sat 95 % Normal [facility] ([place]) Comment on above: Performed By: #### L AC, CBC, ADIFF, ANEU, PRO, BMP, MG, GFR, TROPI, HFP #### [place] [address] TIBC 120 mcg/dL Low 250-500 [facility] ([place]) Comment on above: Performed By: #### L AC, CBC, ADIFF, ANEU, PRO, BMP, MG, GFR, TROPI, HFP #### [place] [address] FOLon 12-04-2018 Folate 42.6 ng/mL High 1.1-20.0 [facility] ([place]) Comment on above: Performed By: #### L AC, CBC, ADIFF, ANEU, PRO, BMP, MG, GFR, TROPI, HFP #### [place] [address] HAPTOon 12-04-2018 Haptoglobin 93 mg/dL Normal 36-195 [facility] ([place] Comment on above: Performed By: #### L AC, CBC, ADIFF, ANEU, PRO, BMP, MG, GFR, TROPI, HFP #### [place] [address] HHon 12-04-2018 Hematocrit (Bld) [Volume fraction] 24.4 % Low 34.0-46.0 [facility] ([place]) Comment on above: Performed By: #### L AC, CBC, ADIFF, ANEU, PRO, BMP, MG, GFR, TROPI, HFP #### [place] [address] Hemoglobin (Bld) [Mass/Vol] 8.5 G/dL Low 12.0-16.0 [facility] ([place]) Comment on above: Performed By: #### L AC, CBC, ADIFF, ANEU, PRO, BMP, MG, GFR, TROPI, HFP #### [place] [address] Hematocrit (Bld) [Volume fraction] 26.4 % Low 34.0-46.0 [facility] ([place]) Comment on above: Performed By: #### L AC, CBC, ADIFF, ANEU, PRO, BMP, MG, GFR, TROPI, HFP #### [place] [address] Hemoglobin (Bld) [Mass/Vol] 9.3 G/dL Low 12.0-16.0 [facility] ([place]) Comment on above: Performed By: #### L AC, CBC, ADIFF, ANEU, PRO, BMP, MG, GFR, TROPI, HFP #### [place] [address] Hematocrit (Bld) [Volume fraction] 17.8 % Low 34.0-46.0 [facility] ([place]) Comment on above: Performed By: #### L AC, CBC, ADIFF, ANEU, PRO, BMP, MG, GFR, TROPI, HFP #### [place] [address] Hemoglobin (Bld) [Mass/Vol] 6.1 G/dL Critically abnormal 12.0-16.0 [facility] ([place]) Comment on above: Performed By: #### L AC, CBC, ADIFF, ANEU, PRO, BMP, MG, GFR, TROPI, HFP #### [place] [address] LDHon 12-04-2018 LDH 203 U/L Normal 120-246 [facility] ([place]) Comment on above: Performed By: #### L AC, CBC, ADIFF, ANEU, PRO, BMP, MG, GFR, TROPI, HFP #### [place] [address] MABOon 12-04-2018 ABO/Rh Interp AB NEG [facility] ([place]) Comment on above: Performed By: #### L AC, CBC, ADIFF, ANEU, PRO, BMP, MG, GFR, TROPI, HFP #### [address] [address] MABSon 12-04-2018 Antibody Screen Manual Negative Normal [facility] ([place]) Comment on above: Performed By: #### L AC, CBC, ADIFF, ANEU, PRO, BMP, MG, GFR, TROPI, HFP #### [address] [address] MGon 12-04-2018 Magnesium [Mass/Vol] 1.9 mg/dL Normal 1.6-2.4 [facility] ([place]) Comment on above: Performed By: #### L AC, CBC, ADIFF, ANEU, PRO, BMP, MG, GFR, TROPI, HFP #### [address] [address] RBC (Product)on 12-04-2018 RBC (Bld) [#/Vol] RBC Ready for Pickup Normal [facility] ([place]) Comment on above: Performed By: #### L AC, CBC, ADIFF, ANEU, PRO, BMP, MG, GFR, TROPI, HFP #### [address] [address] TROPIon 12-04-2018 Troponin I.cardiac [Mass/Vol] 0.127 ng/mL High 0.000-0.040 [facility] ([place]) Comment on above: Result Comment: Trop onin I reference ranges (02/10/14): 0.00-0.040 ng/mL Negative and non-diagnostic. >0.040 ng/mL Consistent with cardiac damage, increased clinical risk and possibility of myocardial infarction. Serial measurements, a rise & fall in test results, clinical history, appropriate symptoms and/or ECG changes may help assess possibility of [place]. *Other non-acute coronary syndrome conditions such as CHF, myocarditis, pulmonary emboli, sepsis and cardiac surgery could result in myocardial damage and increased troponin levels. Performed By: #### L AC, CBC, ADIFF, ANEU, PRO, BMP, MG, GFR, TROPI, HFP #### [address] [address] Troponin I.cardiac [Mass/Vol] 0.135 ng/mL High 0.000-0.040 [facility] ([place]) Comment on above: Result Comment: Trop onin I reference ranges (02/10/14): 0.00-0.040 ng/mL Negative and non-diagnostic. >0.040 ng/mL Consistent with cardiac damage, increased clinical risk and possibility of myocardial infarction. Serial measurements, a rise & fall in test results, clinical history, appropriate symptoms and/or ECG changes may help assess possibility of [place]. *Other non-acute coronary syndrome conditions such as CHF, myocarditis, pulmonary emboli, sepsis and cardiac surgery could result in myocardial damage and increased troponin levels. Performed By: #### L AC, CBC, ADIFF, ANEU, PRO, BMP, MG, GFR, TROPI, HFP #### [place] [address] TSHon 12-04-2018 TSH Qn 2.130 mcIU/mL Normal 0.360-3.740 [facility] ([place]) Comment on above: Result Comment: Juan leonardo note as of 12/17/16 new pediatric reference intervals were added for this test. Performed By: #### L AC, CBC, ADIFF, ANEU, PRO, BMP, MG, GFR, TROPI, HFP #### [place] [address] VIDHon 12-04-2018 Vit. D 25-Hydroxy 54 ng/mL Normal [facility] ([place]) Comment on above: Result Comment: Inte rpretive Values Based on Total 25(OH)D: Severe Deficiency <20 ng/mL Mild to Moderate Deficiency 20-30 ng/mL Optimum Levels 30-100 ng/mL Toxicity Possible >100 ng/mL Performed By: #### L AC, CBC, ADIFF, ANEU, PRO, BMP, MG, GFR, TROPI, HFP #### [place] [address] .Auto Diffon 12-03-2018 Ammonia (P) [Mass/Vol] 0.50 10 3/mcL Normal 0.09-1.40 [facility] ([place]) Comment on above: Performed By: #### L AC, CBC, ADIFF, ANEU, PRO, BMP, MG, GFR, TROPI, HFP #### [place] [address] Basophils (Bld) [#/Vol] 0.00 10 3/mcL Normal 0.00-0.27 [facility] ([place]) Comment on above: Performed By: #### L AC, CBC, ADIFF, ANEU, PRO, BMP, MG, GFR, TROPI, HFP #### [address] [address] Basophils/100 WBC (Bld) 0.3 % Normal 0.0-2.5 [facility] ([place]) Comment on above: Performed By: #### L AC, CBC, ADIFF, ANEU, PRO, BMP, MG, GFR, TROPI, HFP #### [address] [address] Eosinophils (Bld) [#/Vol] 0.10 10 3/mcL Normal 0.00-0.65 [facility] ([place]) Comment on above: Performed By: #### L AC, CBC, ADIFF, ANEU, PRO, BMP, MG, GFR, TROPI, HFP #### [address] [address] Eosinophils/100 WBC (Bld) 1.0 % Normal 0.0-6.0 [facility] ([place]) Comment on above: Performed By: #### L AC, CBC, ADIFF, ANEU, PRO, BMP, MG, GFR, TROPI, HFP #### [address] [address] Lymphocytes (Bld) [#/Vol] 0.60 10 3/mcL Low 0.90-4.32 [facility] ([place]) Comment on above: Performed By: #### L AC, CBC, ADIFF, ANEU, PRO, BMP, MG, GFR, TROPI, HFP #### [address] [address] Lymphocytes/100 WBC (Bld) 6.8 % Low 20.0-40.0 [facility] ([place]) Comment on above: Performed By: #### L AC, CBC, ADIFF, ANEU, PRO, BMP, MG, GFR, TROPI, HFP #### [address] [address] Monocytes/100 WBC (Bld) 5.5 % Normal 2.0-13.0 [facility] ([place]) Comment on above: Performed By: #### L AC, CBC, ADIFF, ANEU, PRO, BMP, MG, GFR, TROPI, HFP #### [address] [address] Neutrophils/100 WBC (Bld) 86.4 % High 50.0-75.0 [facility] ([place]) Comment on above: Performed By: #### L AC, CBC, ADIFF, ANEU, PRO, BMP, MG, GFR, TROPI, HFP #### [address] [address] .GFRon 12-03-2018 GFR >60 Normal [facility] ([place]) Comment on above: Result Comment: GFR Population mean for , Non- Americans Ages 20-29 = 116 mL/min/1.73 sq.m. Ages 30-39 = 107 mL/min/1.73 sq.m. Ages 40-49 = 99 mL/min/1.73 sq.m. Ages 50-59 = 93 mL/min/1.73 sq.m. Ages 60-69 = 85 mL/min/1.73 sq.m. Ages 70+ = 75 mL/min/1.73 sq.m. Chronic Kidney Disease: Less than 60 mL/min/1.73 square meters End Stage Renal Disease: Less than 15 mL/min/1.73 square meters Performed By: #### L AC, CBC, ADIFF, ANEU, PRO, BMP, MG, GFR, TROPI, HFP #### [address] [address] GFR Non- >60 Normal [facility] ([place]) Comment on above: Result Comment: GFR Population mean for , Non- Americans Ages 20-29 = 116 mL/min/1.73 sq.m. Ages 30-39 = 107 mL/min/1.73 sq.m. Ages 40-49 = 99 mL/min/1.73 sq.m. Ages 50-59 = 93 mL/min/1.73 sq.m. Ages 60-69 = 85 mL/min/1.73 sq.m. Ages 70+ = 75 mL/min/1.73 sq.m. Chronic Kidney Disease: Less than 60 mL/min/1.73 square meters End Stage Renal Disease: Less than 15 mL/min/1.73 square meters Performed By: #### L AC, CBC, ADIFF, ANEU, PRO, BMP, MG, GFR, TROPI, HFP #### [place] [address] .NEUABSon 12-03-2018 Neutrophils (Bld) [#/Vol] 8.10 10 3/mcL Normal 2.25-8.10 [facility] ([place]) Comment on above: Performed By: #### L AC, CBC, ADIFF, ANEU, PRO, BMP, MG, GFR, TROPI, HFP #### [place] [address] BMPon 12-03-2018 Calcium [Mass/Vol] 7.1 mg/dL Low 8.4-10.1 [facility] ([place]) Comment on above: Performed By: #### L AC, CBC, ADIFF, ANEU, PRO, BMP, MG, GFR, TROPI, HFP #### [place] [address] Chloride [Moles/Vol] 109 mmol/L Normal 98-110 [facility] ([place]) Comment on above: Performed By: #### L AC, CBC, ADIFF, ANEU, PRO, BMP, MG, GFR, TROPI, HFP #### [place] [address] CO2 [Moles/Vol] 17 mmol/L Low 22-32 [facility] ([place]) Comment on above: Performed By: #### L AC, CBC, ADIFF, ANEU, PRO, BMP, MG, GFR, TROPI, HFP #### [place] [address] Creatinine [Mass/Vol] 0.86 mg/dL Normal 0.50-1.20 [facility] ([place]) Comment on above: Performed By: #### L AC, CBC, ADIFF, ANEU, PRO, BMP, MG, GFR, TROPI, HFP #### [place] [address] Electrolyte Balance 10.0 mEq/L Normal 4.0-15.0 [facility] ([place]) Comment on above: Performed By: #### L AC, CBC, ADIFF, ANEU, PRO, BMP, MG, GFR, TROPI, HFP #### [address] [address] Glucose [Mass/Vol] 107 mg/dL Normal 82-115 [facility] ([place]) Comment on above: Performed By: #### L AC, CBC, ADIFF, ANEU, PRO, BMP, MG, GFR, TROPI, HFP #### [address] [address] Potassium [Moles/Vol] 3.9 mmol/L Normal 3.5-5.0 [facility] ([place]) Comment on above: Performed By: #### L AC, CBC, ADIFF, ANEU, PRO, BMP, MG, GFR, TROPI, HFP #### [place] [id number] Sodium [Moles/Vol] 136 mmol/L Normal 136-145 [facility] ([place]) Comment on above: Performed By: #### L AC, CBC, ADIFF, ANEU, PRO, BMP, MG, GFR, TROPI, HFP #### [address] [address] Urea nitrogen [Mass/Vol] 37.0 mg/dL High 8.0-22.0 [facility] ([place]) Comment on above: Performed By: #### L AC, CBC, ADIFF, ANEU, PRO, BMP, MG, GFR, TROPI, HFP #### [address] [address] Urea nitrogen/Creatinine [Mass ratio] 43.0 ratio High 10.0-22.0 [facility] ([place]) Comment on above: Performed By: #### L AC, CBC, ADIFF, ANEU, PRO, BMP, MG, GFR, TROPI, HFP #### [address] [address] CBCon 12-03-2018 Erythrocyte distribution width (RBC) [Ratio] 16.6 % High 11.5-15.5 [facility] ([place]) Comment on above: Performed By: #### L AC, CBC, ADIFF, ANEU, PRO, BMP, MG, GFR, TROPI, HFP #### [place] [id number] Hematocrit (Bld) [Volume fraction] 22.1 % Low 34.0-46.0 [facility] ([place]) Comment on above: Performed By: #### L AC, CBC, ADIFF, ANEU, PRO, BMP, MG, GFR, TROPI, HFP #### [place] [id number] Hemoglobin (Bld) [Mass/Vol] 7.4 G/dL Low 12.0-16.0 [facility] ([place]) Comment on above: Performed By: #### L AC, CBC, ADIFF, ANEU, PRO, BMP, MG, GFR, TROPI, HFP #### [place] [id number] MCH (RBC) [Entitic mass] 31.5 pg Normal 27.0-33.0 [facility] ([place]) Comment on above: Performed By: #### L AC, CBC, ADIFF, ANEU, PRO, BMP, MG, GFR, TROPI, HFP #### [place] [id number] MCHC (RBC) [Mass/Vol] 33.6 G/dL Normal 32.0-36.0 [facility] ([place]) Comment on above: Performed By: #### L AC, CBC, ADIFF, ANEU, PRO, BMP, MG, GFR, TROPI, HFP #### [place] [id number] MCV (RBC) [Entitic vol] 93.8 fL Normal 80.0-99.0 [facility] ([place]) Comment on above: Performed By: #### L AC, CBC, ADIFF, ANEU, PRO, BMP, MG, GFR, TROPI, HFP #### [place] [id number] Platelet mean volume (Bld) [Entitic vol] 7.9 fL Normal 6.6-10.5 [facility] ([place]) Comment on above: Performed By: #### L AC, CBC, ADIFF, ANEU, PRO, BMP, MG, GFR, TROPI, HFP #### [place] [id number] Platelets (Bld) [#/Vol] 102 10 3/mcL Low 150-450 [facility] ([place]) Comment on above: Performed By: #### L AC, CBC, ADIFF, ANEU, PRO, BMP, MG, GFR, TROPI, HFP #### [place] [address] RBC (Bld) [#/Vol] 2.36 10 6/mcL Low 4.10-5.30 [facility] ([place]) Comment on above: Performed By: #### L AC, CBC, ADIFF, ANEU, PRO, BMP, MG, GFR, TROPI, HFP #### [place] [address] WBC (Bld) [#/Vol] 9.40 10 3/mcL Normal 4.50-10.80 [facility] ([place]) Comment on above: Performed By: #### L AC, CBC, ADIFF, ANEU, PRO, BMP, MG, GFR, TROPI, HFP #### [place] [address] HFPon 12-03-2018 Bili Indirect 0.2 mg/dL Normal 0.1-10.0 [facility] ([place]) Comment on above: Performed By: #### L AC, CBC, ADIFF, ANEU, PRO, BMP, MG, GFR, TROPI, HFP #### [place] [address] Bili Direct 0.2 mg/dL Normal 0.0-0.4 [facility] ([place]) Comment on above: Performed By: #### L AC, CBC, ADIFF, ANEU, PRO, BMP, MG, GFR, TROPI, HFP #### [place] [address] Albumin/Globulin [Mass ratio] 0.7 {ratio} Low 0.9-1.6 [facility] ([place]) Comment on above: Performed By: #### L AC, CBC, ADIFF, ANEU, PRO, BMP, MG, GFR, TROPI, HFP #### [address] [address] ALP [Catalytic activity/Vol] 68 U/L Normal 38-126 [facility] ([place]) Comment on above: Performed By: #### L AC, CBC, ADIFF, ANEU, PRO, BMP, MG, GFR, TROPI, HFP #### [place] [id number] Bili Total 0.4 mg/dL Normal 0.2-1.2 [facility] ([place]) Comment on above: Performed By: #### L AC, CBC, ADIFF, ANEU, PRO, BMP, MG, GFR, TROPI, HFP #### [place] [address] Globulin (S) [Mass/Vol] 2.4 G/dL Normal 1.5-3.8 A [facility] ([place]) Comment on above: Performed By: #### L AC, CBC, ADIFF, ANEU, PRO, BMP, MG, GFR, TROPI, HFP #### [place] [id number] Protein [Mass/Vol] 4.1 G/dL Low 6.0-8.5 [facility] ([place]) Comment on above: Performed By: #### L AC, CBC, ADIFF, ANEU, PRO, BMP, MG, GFR, TROPI, HFP #### [place] [address] Albumin [Mass/Vol] 1.7 G/dL Low 3.2-4.8 [facility] ([place]) Comment on above: Performed By: #### L AC, CBC, ADIFF, ANEU, PRO, BMP, MG, GFR, TROPI, HFP #### [place] [address] ALT [Catalytic activity/Vol] 8 U/L Low 10-49 [facility] ([place]) Comment on above: Performed By: #### L AC, CBC, ADIFF, ANEU, PRO, BMP, MG, GFR, TROPI, HFP #### [place] [address] AST [Catalytic activity/Vol] 22 U/L Normal 8-34 [facility] ([place]) Comment on above: Performed By: #### L AC, CBC, ADIFF, ANEU, PRO, BMP, MG, GFR, TROPI, HFP #### [place] [address] LACon 12-03-2018 Lactic Acid Lvl 0.9 mmol/L Normal 0.2-2.0 [facility] ([place]) Comment on above: Performed By: #### L AC, CBC, ADIFF, ANEU, PRO, BMP, MG, GFR, TROPI, HFP #### [place] [address] MGon 12-03-2018 Magnesium [Mass/Vol] 2.0 mg/dL Normal 1.6-2.4 [facility] ([place]) Comment on above: Performed By: #### L AC, CBC, ADIFF, ANEU, PRO, BMP, MG, GFR, TROPI, HFP #### [place] [address] PROon 12-03-2018 INR Coag (PPP) [Relative time] 1.0 {INR} Normal [facility] ([place]) Comment on above: Result Comment: The [employer] [place] [employer] (CHEST, 1992, [id number]) recommended therapeutic range for oral anticoagulant therapy is: LOW RISK: Prophylaxis of venous thrombosis INR: 2.0-3.0 Treatment of pulmonary embolism 2.0-3.0 Prevention of systemic embolism 2.0-3.0 HIGH RISK: Mechanical prosthetic valves 2.5-3.5 Performed By: #### L AC, CBC, ADIFF, ANEU, PRO, BMP, MG, GFR, TROPI, HFP #### [place] [address] PT Coag (PPP) [Time] 12.3 s Normal 9.0-14.6 [facility] ([place]) Comment on above: Result Comment: Effe ctive 12/18/07, Protime results may be affected by some antibiotics (i.e. Ciprofloxacin, Azithromycin, Bactrim) which may potentiate the action of oral anticoagulants, with further increases in Protime/INR. Performed By: #### L AC, CBC, ADIFF, ANEU, PRO, BMP, MG, GFR, TROPI, HFP #### [address] [address] TROPIon 12-03-2018 Troponin I.cardiac [Mass/Vol] 0.043 ng/mL High 0.000-0.040 [facility] ([place]) Comment on above: Result Comment: Trop onin I reference ranges (02/10/14): 0.00-0.040 ng/mL Negative and non-diagnostic. >0.040 ng/mL Consistent with cardiac damage, increased clinical risk and possibility of myocardial infarction. Serial measurements, a rise & fall in test results, clinical history, appropriate symptoms and/or ECG changes may help assess possibility of [place]. *Other non-acute coronary syndrome conditions such as CHF, myocarditis, pulmonary emboli, sepsis and cardiac surgery could result in myocardial damage and increased troponin levels. Performed By: #### L AC, CBC, ADIFF, ANEU, PRO, BMP, MG, GFR, TROPI, HFP #### [address] [address] Office Visit: Sinus infectio non 04-23-2017 Documentation of current medications (procedure) Done Invalid Interpretation Code [facility] Work Phone: [phone] Fall risk assessment No Invalid Interpretation Code [facility] Work Phone: [phone] Tobacco smoking status NHIS Never Invalid Interpretation Code [facility] Work Phone: [phone] Tobacco use [facility] Never smoker Invalid Interpretation Code [facility] Work Phone: [phone] COVID-19 virus antigen assay SARS-CoV-2 (COVID-19) Ag IA.rapid Ql (Resp) [facility] Work Phone: [phone] Clostridium difficile detect ion by polymerase chain reaction C. difficile DNA MURALI+probe Ql (Unsp spec) [facility] Work Phone: [phone] Culture, urine Bacteria identified Cx Nom (U) Escherichia coli [facility] Work Phone: Vital Signs Date Time Vital Sign Value Performing Clinician Facility 12-02-2024 09:08-0400 Body mass index (BMI) [Ratio] 20.19 kg/m2 Raman Becerrai DO Work Phone: [facility] 12-02-2024 09:08-0400 Body temperature 97.2 [degF] Raman Becerrai DO Work Phone: [facility] 12-02-2024 09:08-0400 Body weight 51.71 kg Raman Becerrai DO Work Phone: [facility] 12-02-2024 09:08-0400 Diastolic blood pressure 74 mm[Hg] Raman Becerrai DO Work Phone: [facility] 12-02-2024 09:08-0400 Heart rate 79 /min Raman Becerrai DO Work Phone: [facility] 12-02-2024 09:08-0400 SaO2% (BldA) [Mass fraction] 98 % Raman Becerrai DO Work Phone: [facility] 12-02-2024 09:08-0400 Systolic blood pressure 116 mm[Hg] Raman Becerrai DO Work Phone: [facility] 06-12-2024 14:00-0500 Body temperature 97.9 [degF] Treatment Wstr Work Phone: [facility] 06-12-2024 14:00-0500 Diastolic blood pressure 74 mm[Hg] Treatment Wstr Work Phone: [facility] 06-12-2024 14:00-0500 Heart rate 82 /min Treatment Wstr Work Phone: [facility] 06-12-2024 14:00-0500 Systolic blood pressure 110 mm[Hg] Treatment Wstr Work Phone: [facility] 06-10-2024 15:25-0500 Body temperature 97 [degF] Treatment Wstr Work Phone: [facility] 06-10-2024 15:25-0500 Diastolic blood pressure 75 mm[Hg] Treatment Wstr Work Phone: [facility] 06-10-2024 15:25-0500 Heart rate 65 /min Treatment Wstr Work Phone: [facility] 06-10-2024 15:25-0500 Respiratory rate 18 /min Treatment Wstr Work Phone: [facility] 06-10-2024 15:25-0500 SaO2% (BldA) [Mass fraction] 99 % Treatment Wstr Work Phone: [facility] 06-10-2024 15:25-0500 Systolic blood pressure 124 mm[Hg] Treatment Wstr Work Phone: [facility] 06-06-2024 15:21-0500 Body temperature 97.81 [degF] Treatment Wstr Work Phone: [facility] 06-06-2024 15:21-0500 Diastolic blood pressure 70 mm[Hg] Treatment Wstr Work Phone: [facility] 06-06-2024 15:21-0500 Heart rate 64 /min Treatment Wstr Work Phone: [facility] 06-06-2024 15:21-0500 Respiratory rate 16 /min Treatment Wstr Work Phone: [facility] 06-06-2024 15:21-0500 SaO2% (BldA) [Mass fraction] 100 % Treatment Wstr Work Phone: [facility] 06-06-2024 15:21-0500 Systolic blood pressure 120 mm[Hg] Treatment Wstr Work Phone: [facility] 06-03-2024 09:22-0500 Body temperature 97.81 [degF] Treatment Wstr Work Phone: [facility] 06-03-2024 09:22-0500 Diastolic blood pressure 68 mm[Hg] Treatment Wstr Work Phone: [facility] 06-03-2024 09:22-0500 Heart rate 65 /min Treatment Wstr Work Phone: [facility] 06-03-2024 09:22-0500 SaO2% (BldA) [Mass fraction] 99 % Treatment Wstr Work Phone: [facility] 06-03-2024 09:22-0500 Systolic blood pressure 159 mm[Hg] Treatment Wstr Work Phone: [facility] 05-31-2024 14:00-0500 Body temperature 97.9 [degF] Treatment Wstr Work Phone: [facility] 05-31-2024 14:00-0500 Diastolic blood pressure 73 mm[Hg] Treatment Wstr Work Phone: [facility] 05-31-2024 14:00-0500 Heart rate 72 /min Treatment Wstr Work Phone: [facility] 05-31-2024 14:00-0500 Systolic blood pressure 135 mm[Hg] Treatment Wstr Work Phone: [facility] 05-28-2024 10:41-0500 Diastolic blood pressure 73 mm[Hg] Treatment Wstr Work Phone: [facility] 05-28-2024 10:41-0500 Heart rate 74 /min Treatment Wstr Work Phone: [facility] 05-28-2024 10:41-0500 SaO2% (BldA) [Mass fraction] 98 % Treatment Wstr Work Phone: [facility] 05-28-2024 10:41-0500 Systolic blood pressure 124 mm[Hg] Treatment Wstr Work Phone: [facility] 05-21-2024 09:18-0500 Body mass index (BMI) [Ratio] 20.9 kg/m2 Raman Masci DO Work Phone: [facility] 05-21-2024 09:18-0500 Body temperature 97.5 [degF] Raman Masci DO Work Phone: [facility] 05-21-2024 09:18-0500 Body weight 53.52 kg Raman Masci DO Work Phone: [facility] 05-21-2024 09:18-0500 Diastolic blood pressure 73 mm[Hg] Raman Becrerai DO Work Phone: [facility] 05-21-2024 09:18-0500 Heart rate 73 /min Raman Becerrai DO Work Phone: [facility] 05-21-2024 09:18-0500 SaO2% (BldA) [Mass fraction] 99 % Raman Masci DO Work Phone: [facility] 05-21-2024 09:18-0500 Systolic blood pressure 113 mm[Hg] Raman Masci DO Work Phone: [facility] 12-04-2023 10:19-0400 Body height 160 cm Raman Masci DO Work Phone: [facility] 12-04-2023 10:19-0400 Body mass index (BMI) [Ratio] 22.32 kg/m2 Raman Masci DO Work Phone: [facility] 12-04-2023 10:19-0400 Body temperature 97.39 [degF] Raman Masci DO Work Phone: [facility] 12-04-2023 10:19-0400 Body weight 57.15 kg Raman Masci DO Work Phone: [facility] 12-04-2023 10:19-0400 Diastolic blood pressure 69 mm[Hg] Raman Masci DO Work Phone: [facility] 12-04-2023 10:19-0400 Heart rate 84 /min Raman Masci DO Work Phone: [facility] 12-04-2023 10:19-0400 SaO2% (BldA) [Mass fraction] 98 % Raman Masci DO Work Phone: [facility] 12-04-2023 10:19-0400 Systolic blood pressure 103 mm[Hg] Raman Masci DO Work Phone: [facility] 12-12-2022 08:54-0400 Body height 160 cm Penny Quinteros APRN.CONFLICTS ANALYST Work Phone: [facility] 12-12-2022 08:54-0400 Body temperature 97.59 [degF] Penny Quinteros APRN.CONFLICTS ANALYST Work Phone: [facility] 12-12-2022 08:54-0400 Body weight 64.41 kg Penny Quinteros LABOR RELATIONS ANALYST.CONFLICTS ANALYST Work Phone: [facility] 12-12-2022 08:54-0400 Diastolic blood pressure 60 mm[Hg] Penny Hyattenter LABOR RELATIONS ANALYST.CONFLICTS ANALYST Work Phone: [facility] 12-12-2022 08:54-0400 Heart rate 75 /min Penny Hyattenter LABOR RELATIONS ANALYST.CONFLICTS ANALYST Work Phone: [facility] 12-12-2022 08:54-0400 SaO2% (BldA) [Mass fraction] 99 % Penny Hyattenter LABOR RELATIONS ANALYST.CONFLICTS ANALYST Work Phone: [facility] 12-12-2022 08:54-0400 Systolic blood pressure 124 mm[Hg] Penny Quinteros LABOR RELATIONS ANALYST.CONFLICTS ANALYST Work Phone: [facility] 11-23-2022 15:19-0400 Body height 165.1 cm Jeferson Bandsuh PA-C Work Phone: [facility] 11-23-2022 15:19-0400 Body weight 63.69 kg Jeferson Bandsuh PA-C Work Phone: [facility] 11-23-2022 15:19-0400 Diastolic blood pressure 74 mm[Hg] Jeferson Bandsuh PA-C Work Phone: [facility] 11-23-2022 15:19-0400 Heart rate 73 /min Jeferson Bandsuh PA-C Work Phone: [facility] 11-23-2022 15:19-0400 Systolic blood pressure 127 mm[Hg] Jeferson Bandsuh PA-C Work Phone: [facility] 09-12-2022 06:33-0400 Diastolic blood pressure 53 mm[Hg] Dr. Clau Baca Work Phone: [facility] 09-12-2022 06:33-0400 Heart rate 70 /min Dr. Clau Baca Work Phone: [facility] 09-12-2022 06:33-0400 Respiratory rate 16 /min Dr. Calu Baca Work Phone: [facility] 09-12-2022 06:33-0400 SaO2% (BldA) [Mass fraction] 99 % Dr. Clau Baca Work Phone: [facility] 09-12-2022 06:33-0400 Systolic blood pressure 137 mm[Hg] Dr. Clau Baca Work Phone: 8(536)922-500695 [place] [address] 09-12-2022 04:25-0400 Body height 157.[address] Clau Baca Work Phone: 7(519)717-919567 [place] [address] 09-12-2022 04:25-0400 Body mass index (BMI) [Ratio] 26.9 kg/m2 Dr. Clau Baca Work Phone: 0(608)629-978795 [place] [address] 09-12-2022 04:25-0400 Body temperature 97.1 [degF] Dr. Clau Baca Work Phone: 8(494)866-316167 [place] [address] 09-12-2022 04:25-0400 Body weight 66.[address] Clau Baca Work Phone: 0(646)007-407295 [place] [address] 09-06-2022 14:49-0400 Body temperature 98.6 [degF] Injection Wstr Work Phone: [facility] 09-06-2022 14:49-0400 Diastolic blood pressure 59 mm[Hg] Injection Wstr Work Phone: [facility] 09-06-2022 14:49-0400 Heart rate 81 /min Injection Wstr Work Phone: [facility] 09-06-2022 14:49-0400 Systolic blood pressure 114 mm[Hg] Injection Wstr Work Phone: [facility] 08-23-2022 09:40-0400 Body temperature 98.1 [degF] Dr. Clau Baca Work Phone: [facility] 08-23-2022 09:40-0400 Diastolic blood pressure 67 mm[Hg] Dr. Clau Baca Work Phone: 6(810)866-409467 [place] [address] 08-23-2022 09:40-0400 Heart rate 88 /min Dr. Clau Baca Work Phone: 2(979)466-993967 [place] [address] 08-23-2022 09:40-0400 Respiratory rate 18 /min Dr. Clau Baca Work Phone: 7(423)397-338167 [place] [address] 08-23-2022 09:40-0400 SaO2% (BldA) [Mass fraction] 100 % Dr. Clau Baca Work Phone: 6(424)983-952467 [place] [address] 08-23-2022 09:40-0400 Systolic blood pressure 104 mm[Hg] Dr. Clau Baca Work Phone: 7(020)404-789367 [place] [address] 08-22-2022 12:41-0400 Body height 157.[address] Clau Baca Work Phone: 2(035)048-751267 [place] [address] 08-22-2022 12:41-0400 Body weight 56.[address] Clau Baca Work Phone: 2(764)079-099267 [place] [address] 08-19-2022 16:20-0400 Body mass index (BMI) [Ratio] 22.6 kg/m2 Dr. Clau Baca Work Phone: 3(920)675-431067 [place] [address] 08-19-2022 14:00-0400 Body temperature 99.2 [degF] Dr. Clau Baca Work Phone: 5(905)337-945467 [place] [address] 08-19-2022 14:00-0400 Diastolic blood pressure 64 mm[Hg] Dr. Clau Baca Work Phone: 2(509)153-373867 [place] [address] 08-19-2022 14:00-0400 Heart rate 85 /min Dr. Clau Baca Work Phone: 2(763)121-678867 [place] [address] 08-19-2022 14:00-0400 Respiratory rate 20 /min Dr. Clau Baca Work Phone: 2(958)341-584467 [place] [address] 08-19-2022 14:00-0400 SaO2% (BldA) [Mass fraction] 94 % Dr. Clau Baca Work Phone: 5(813)102-100567 [place] [address] 08-19-2022 14:00-0400 Systolic blood pressure 118 mm[Hg] Dr. Clau Baca Work Phone: 9(285)762-203367 [place] [address] 08-19-2022 09:29-0400 Body height 157.[address] Clau Baca Work Phone: 9(321)899-839867 [place] [address] 08-19-2022 09:29-0400 Body mass index (BMI) [Ratio] 26 kg/m2 Dr. Clau Baca Work Phone: 9(385)797-136167 [place] [address] 08-19-2022 09:29-0400 Body weight 64.[address] Clau Baca Work Phone: 7(308)370-929767 [place] [address] 08-12-2022 21:11-0500 Diastolic blood pressure 53 mm[Hg] Dr. Clau Baca Work Phone: 1(717)988-071367 [place] [address] 08-12-2022 21:11-0500 Heart rate 89 /min Dr. Clau Baca Work Phone: 0(417)394-686267 [place] [address] 08-12-2022 21:11-0500 Respiratory rate 18 /min Dr. Clau Baca Work Phone: 6(838)981-665467 [place] [address] 08-12-2022 21:11-0500 SaO2% (BldA) [Mass fraction] 100 % Dr. Clau Baca Work Phone: 7(369)422-078467 [place] [address] 08-12-2022 21:11-0500 Systolic blood pressure 126 mm[Hg] Dr. Clau Baca Work Phone: 9(442)052-257667 [place] [address] 08-12-2022 20:00-0500 Body temperature 98.2 [degF] Dr. Clau Baca Work Phone: 1(036)891-216967 [place] [address] 08-12-2022 18:05-0500 Body mass index (BMI) [Ratio] 22.5 kg/m2 Dr. Clau Baca Work Phone: 3(337)629-314367 [place] [address] 08-12-2022 18:05-0500 Body weight 55.[address] Clau Baca Work Phone: [facility] 08-12-2022 17:50-0500 Body height 157.[address] Clau Baca Work Phone: [facility] 07-12-2022 13:52-0500 Body temperature 98.2 [degF] Injection Wstr Work Phone: [facility] 06-14-2022 11:47-0500 Body temperature 98.1 [degF] Injection Wstr Work Phone: [facility] 06-14-2022 11:47-0500 Body weight 59.88 kg Injection Wstr Work Phone: [facility] 06-14-2022 11:47-0500 Diastolic blood pressure 67 mm[Hg] Injection Wstr Work Phone: [facility] 06-14-2022 11:47-0500 Heart rate 80 /min Injection Wstr Work Phone: [facility] 06-14-2022 11:47-0500 Systolic blood pressure 122 mm[Hg] Injection Wstr Work Phone: [facility] 06-02-2022 14:31-0500 Body temperature 97.4 [degF] Dr. Clau Baca Work Phone: [facility] 06-02-2022 14:31-0500 Diastolic blood pressure 77 mm[Hg] Dr. Clau Baca Work Phone: 0(418)624-966995 [place] [address] 06-02-2022 14:31-0500 Heart rate 77 /min Dr. Clau Baca Work Phone: 3(667)824-852595 [place] [address] 06-02-2022 14:31-0500 Respiratory rate 16 /min Dr. Clau Baca Work Phone: 5(345)042-450467 [place] [address] 06-02-2022 14:31-0500 SaO2% (BldA) [Mass fraction] 100 % Dr. Clau Baca Work Phone: [facility] 06-02-2022 14:31-0500 Systolic blood pressure 155 mm[Hg] Dr. Clau Baca Work Phone: [facility] 06-02-2022 05:40-0500 Body weight [address] Clau Baca Work Phone: [facility] 05-30-2022 18:01-0500 Body height 165.[address] Clau Baca Work Phone: [facility] Work Phone: 05-30-2022 18:01-0500 Body mass index (BMI) [Ratio] 20 kg/m2 Dr. Clau Baca Work Phone: [facility] 05-30-2022 14:41-0500 Body temperature 98.1 [degF] [facility] Work Phone: 05-30-2022 14:41-0500 Diastolic blood pressure 62 mm[Hg] [facility] Work Phone: 05-30-2022 14:41-0500 Heart rate 64 /min [facility] Work Phone: 05-30-2022 14:41-0500 Respiratory rate 18 /min [facility] Work Phone: 05-30-2022 14:41-0500 SaO2% (BldA) [Mass fraction] 92 % [facility] Work Phone: 05-30-2022 14:41-0500 Systolic blood pressure 109 mm[Hg] [facility] Work Phone: 05-30-2022 11:47-0500 Body height 165.1 cm [facility] Work Phone: 05-30-2022 11:47-0500 Body mass index (BMI) [Ratio] 20.9 kg/m2 [facility] Work Phone: 05-30-2022 11:47-0500 Body weight 57.1 kg [facility] Work Phone: 05-17-2022 14:07-0500 Body temperature 96.49 [degF] Injection Wstr Work Phone: [facility] 05-12-2022 13:29-0500 Diastolic blood pressure 75 mm[Hg] Mi Nurse Work Phone: [facility] 05-12-2022 13:29-0500 Heart rate 77 /min Mi Nurse Work Phone: [facility] 05-12-2022 13:29-0500 Systolic blood pressure 122 mm[Hg] Mi Nurse Work Phone: [facility] 03-22-2022 11:58-0400 Body temperature 97.81 [degF] Injection Wstr Work Phone: [facility] 03-01-2022 13:12-0400 Body height 165.1 cm Avtar Hearn DO Work Phone: [facility] 03-01-2022 13:12-0400 Body weight 59.92 kg Avtar Hearn DO Work Phone: [facility] 03-01-2022 13:12-0400 Diastolic blood pressure 68 mm[Hg] Avtar Hearn DO Work Phone: [facility] 03-01-2022 13:12-0400 Heart rate 67 /min Avtar Hearn DO Work Phone: [facility] 03-01-2022 13:12-0400 SaO2% (BldA) [Mass fraction] 100 % Avtar Hearn DO Work Phone: [facility] 03-01-2022 13:12-0400 Systolic blood pressure 128 mm[Hg] Avtar Hearn DO Work Phone: [facility] 02-22-2022 14:05-0400 Body temperature 97.9 [degF] Injection Wstr Work Phone: [facility] 01-25-2022 12:34-0400 Body temperature 97.9 [degF] Injection Wstr Work Phone: [facility] 01-25-2022 12:34-0400 Diastolic blood pressure 60 mm[Hg] Injection Wstr Work Phone: [facility] 01-25-2022 12:34-0400 Heart rate 79 /min Injection Wstr Work Phone: [facility] 01-25-2022 12:34-0400 Systolic blood pressure 132 mm[Hg] Injection Wstr Work Phone: [facility] 01-10-2022 08:05-0400 Body weight 62.14 kg Eryn Older LABOR RELATIONS ANALYST.CONFLICTS ANALYST Work Phone: [facility] 01-10-2022 08:05-0400 Diastolic blood pressure 76 mm[Hg] Eryn Older LABOR RELATIONS ANALYST.CONFLICTS ANALYST Work Phone: [facility] 01-10-2022 08:05-0400 Heart rate 64 /min Eryn Older LABOR RELATIONS ANALYST.CONFLICTS ANALYST Work Phone: [facility] 01-10-2022 08:05-0400 Respiratory rate 16 /min Eryn Older LABOR RELATIONS ANALYST.CONFLICTS ANALYST Work Phone: [facility] 01-10-2022 08:05-0400 Systolic blood pressure 124 mm[Hg] Eryn Older LABOR RELATIONS ANALYST.CONFLICTS ANALYST Work Phone: [facility] 12-28-2021 11:25-0400 Body temperature 97.11 [degF] Raman Masci DO Work Phone: [facility] 12-28-2021 11:25-0400 Body weight 60.78 kg Raman Masci DO Work Phone: [facility] 12-28-2021 11:25-0400 Diastolic blood pressure 64 mm[Hg] Raman Masci DO Work Phone: [facility] 12-28-2021 11:25-0400 Heart rate 76 /min Raman Masci DO Work Phone: [facility] 12-28-2021 11:25-0400 Systolic blood pressure 128 mm[Hg] Raman Masci DO Work Phone: [facility] 12-10-2021 08:23-0400 Body weight 61.24 kg Eryn Older LABOR RELATIONS ANALYST.CONFLICTS ANALYST Work Phone: [facility] 12-10-2021 08:23-0400 Diastolic blood pressure 70 mm[Hg] Eryn Older LABOR RELATIONS ANALYST.CONFLICTS ANALYST Work Phone: [facility] 12-10-2021 08:23-0400 Heart rate 64 /min Reyn Older LABOR RELATIONS ANALYST.CONFLICTS ANALYST Work Phone: [facility] 12-10-2021 08:23-0400 Respiratory rate 16 /min Eryn Older LABOR RELATIONS ANALYST.CONFLICTS ANALYST Work Phone: [facility] 12-10-2021 08:23-0400 Systolic blood pressure 128 mm[Hg] Eryn Older LABOR RELATIONS ANALYST.CONFLICTS ANALYST Work Phone: [facility] 11-02-2021 14:31-0400 Body temperature 97.9 [degF] Injection Wstr Work Phone: [facility] 11-02-2021 14:31-0400 Body weight 58.97 kg Injection Wstr Work Phone: [facility] 11-02-2021 14:31-0400 Diastolic blood pressure 55 mm[Hg] Injection Wstr Work Phone: [facility] 11-02-2021 14:31-0400 Heart rate 73 /min Injection Wstr Work Phone: [facility] 11-02-2021 14:31-0400 Systolic blood pressure 109 mm[Hg] Injection Wstr Work Phone: [facility] 10-30-2021 12:46-0400 Body height 165.[address] Clau Baca Work Phone: [facility] Work Phone: 10-30-2021 12:46-0400 Body mass index (BMI) [Ratio] 23.8 kg/m2 Dr. Clau Baca Work Phone: [facility] Work Phone: 10-30-2021 12:46-0400 Body temperature 97.3 [degF] Dr. Clau Baca Work Phone: [facility] Work Phone: 10-30-2021 12:46-0400 Body weight 64.[address] Clau Baca Work Phone: [facility] Work Phone: 10-30-2021 12:46-0400 Diastolic blood pressure 63 mm[Hg] Dr. Clau Baca Work Phone: [facility] Work Phone: 10-30-2021 12:46-0400 Heart rate 69 /min Dr. Clau Baca Work Phone: [facility] Work Phone: 10-30-2021 12:46-0400 Respiratory rate 18 /min Dr. Clau Baca Work Phone: [facility] Work Phone: 10-30-2021 12:46-0400 SaO2% (BldA) [Mass fraction] 100 % Dr. Clau Baca Work Phone: [facility] Work Phone: 10-30-2021 12:46-0400 Systolic blood pressure 135 mm[Hg] Dr. Clau Baca Work Phone: [facility] Work Phone: 10-27-2021 23:20-0400 Diastolic blood pressure 50 mm[Hg] Dr. Clau Baca Work Phone: [facility] Work Phone: 10-27-2021 23:20-0400 Heart rate 68 /min Dr. Clau Baca Work Phone: [facility] Work Phone: 10-27-2021 23:20-0400 Respiratory rate 17 /min Dr. Clau Baca Work Phone: [facility] Work Phone: 10-27-2021 23:20-0400 SaO2% (BldA) [Mass fraction] 97 % Dr. Clau Baca Work Phone: [facility] Work Phone: 10-27-2021 23:20-0400 Systolic blood pressure 131 mm[Hg] Dr. Clau Baca Work Phone: [facility] Work Phone: 10-27-2021 19:44-0400 Body height 165.[address] Clau Baca Work Phone: [facility] Work Phone: 10-27-2021 19:44-0400 Body mass index (BMI) [Ratio] 23.8 kg/m2 Dr. Clau Baca Work Phone: [facility] Work Phone: 10-27-2021 19:44-0400 Body temperature 98.1 [degF] Dr. Clau Baca Work Phone: [facility] Work Phone: 10-27-2021 19:44-0400 Body weight 64.[address] Clau Baca Work Phone: [facility] Work Phone: 09-06-2021 10:12-0400 Body temperature 97.39 [degF] Injection Wstr Work Phone: [facility] 09-06-2021 10:12-0400 Body weight 63.05 kg Injection Wstr Work Phone: [facility] 09-06-2021 10:12-0400 Diastolic blood pressure 66 mm[Hg] Injection Wstr Work Phone: [facility] 09-06-2021 10:12-0400 Heart rate 79 /min Injection Wstr Work Phone: [facility] 09-06-2021 10:12-0400 Systolic blood pressure 134 mm[Hg] Injection Wstr Work Phone: [facility] 04-23-2017 13:49-0500 BMI (Body Mass Index) 25.86 kg/m2 Violeta Lr PA-C [facility] Work Phone: 04-23-2017 13:49-0500 Body Temperature 98.2 [degF] Violeta Lr PA-C [facility] Work Phone: 04-23-2017 13:49-0500 BP Diastolic 82 mm[Hg] Violeta Lr PA-C [facility] Work Phone: 04-23-2017 13:49-0500 BP Systolic 126 mm[Hg] Violeta Lr PA-C [facility] Work Phone: 04-23-2017 13:49-0500 Height 160.02 cm Violeta Lr PA-C [facility] Work Phone: 04-23-2017 13:49-0500 Pulse (Heart Rate) 86 /min Violeta Lr PA-C [facility] Work Phone: 04-23-2017 13:49-0500 Respiratory Rate 14 /min Violeta Lr PA-C [facility] Work Phone: 04-23-2017 13:49-0500 Weight 66.23 kg Violeta Lr PA-C [facility] Work Phone: Encounters Encounter Date Encounter Type Care Provider Facility Start: 03-04-2025 End: 03-04-2025 ambulatory José Miguel LUNA Facility:[facility] Start: 12-15-2024 End: 12-16-2024 Telephone encounter Raman Caruso DO Work Phone: Hematology/Oncology Comment on above: Results Start: 12-10-2024 End: 12-10-2024 ambulatory José Miguel Hankins [facility] Facility:[facility] Start: 12-02-2024 End: 12-02-2024 Patient encounter procedure Raman Caruso DO Work Phone: Hematology/Oncology Start: 12-02-2024 End: 12-02-2024 ambulatory Raman Caruso DO Work Phone: Hematology/Oncology Comment on above: Anemia due to stage 3b chronic kidney disease (HCC) (Primary Dx); Iron malabsorption (HCC); Copper deficiency; Megaloblastic anemia due to vitamin B12 deficiency Start: 12-01-2024 End: 12-01-2024 ambulatory RAMAN CARUSO Facility:[id number] Start: 10-10-2024 End: 10-10-[address] Ca Silva MD [facility] Work Phone: Start: 10-10-2024 End: 10-10-[address] José Miguel Hankins [facility] -[facility] Start: 10-10-2024 End: 10-10-2024 ambulatory Ca Silva Facility:[facility] Start: 08-07-2024 End: 08-07-2024 Telephone encounter Raman Caruso DO Work Phone: Hematology/Oncology Comment on above: Electronic Communica tion Start: 08-01-2024 End: 08-02-2024 Telephone encounter Raman Caruso DO Work Phone: [place] Provider Adult Comment on above: Results Start: 07-30-2024 End: 07-30-2024 Telephone encounter Clau Baca MD Work Phone: [facility] Comment on above: Fax Labs Start: 07-29-2024 End: 07-29-2024 ambulatory RAMAN CARUSO Facility:[facility] Start: 06-12-2024 End: 06-12-2024 ambulatory Treatment Rm 15 [facility] [employer] Work Phone: Hematology/Oncology Comment on above: Iron deficiency anem ia secondary to inadequate dietary iron intake (Primary Dx); Anemia due to stage 3b chronic kidney disease (HCC) (HCC); History of gastric bypass; Iron malabsorption Start: 06-10-2024 End: 06-10-2024 ambulatory Treatment Rm 17 [facility] [employer] Work Phone: Hematology/Oncology Comment on above: Anemia due to stage 3b chronic kidney disease (HCC) (HCC) (Primary Dx); History of gastric bypass; Iron malabsorption Start: 06-06-2024 End: 06-06-2024 ambulatory Treatment Rm 15 [facility] [employer] Work Phone: Hematology/Oncology Comment on above: Anemia due to stage 3b chronic kidney disease (HCC) (HCC) (Primary Dx); History of gastric bypass; Iron malabsorption Start: 06-03-2024 End: 06-03-2024 ambulatory Treatment 15 [facility] [employer] Work Phone: Hematology/Oncology Comment on above: Anemia due to stage 3b chronic kidney disease (HCC) (HCC) (Primary Dx); History of gastric bypass; Iron malabsorption Start: 05-31-2024 End: 05-31-2024 ambulatory Treatment 15 [facility] [employer] Work Phone: Hematology/Oncology Comment on above: Iron deficiency anem ia secondary to inadequate dietary iron intake (Primary Dx); Anemia due to stage 3b chronic kidney disease (HCC) (HCC); History of gastric bypass; Iron malabsorption Start: 05-28-2024 End: 05-28-2024 ambulatory Treatment 16 [facility] [employer] Work Phone: Hematology/Oncology Comment on above: Anemia due to stage 3b chronic kidney disease (HCC) (HCC) (Primary Dx); History of gastric bypass; Iron malabsorption Start: 05-21-2024 End: 05-21-2024 ambulatory RAMAN CARUSO Facility:[facility] Start: 05-21-2024 End: 05-21-2024 Office outpatient visit 25 minutes Raman Caruso DO Work Phone: Hematology/Oncology Comment on above: Anemia due to stage 3b chronic kidney disease (HCC) (HCC) (Primary Dx); History of gastric bypass; Iron malabsorption Start: 05-20-2024 End: 05-20-2024 ambulatory RAMAN CARUSO Facility:[facility] Start: 12-17-2023 Telephone encounter Raman hutchins DO Work Phone: Hematology/Oncology Comment on above: Results Start: 12-04-2023 End: 12-04-2023 ambulatory Raman Caruso DO Work Phone: Hematology/Oncology Comment on above: Megaloblastic anemia due to vitamin B12 deficiency (Primary Dx); Iron 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 Start: 12-04-2023 End: 12-04-2023 Patient encounter procedure Raman Caruso DO Work Phone: Hematology/Oncology Start: 09-04-2023 End: 09-04-2023 ambulatory [facility] Work Phone: Start: 09-04-2023 End: 09-04-2023 Departed Referred [facility] Start: 08-05-2023 Follow-up encounter Ulises cuenca MD Work Phone: [facility] Start: 08-05-2023 Pacemaker Remote F/U Ulises Carlson MD Work Phone: [facility] Department Start: 04-30-2023 Follow-up encounter Ulises cuenca MD Work Phone: [facility] Start: 04-30-2023 Pacemaker Remote F/U Ulises Carlson MD Work Phone: [facility] Department Start: 04-24-2023 Registered Referred [facility] Start: 04-17-2023 End: 04-17-2023 ambulatory [facility] Work Phone: Start: 04-17-2023 End: 04-17-2023 Departed Referred [facility] Start: 02-20-2023 End: 02-20-2023 Departed Referred [facility] Start: 01-05-2023 ambulatory Carmelo Leavitt RN [facility] Care Management Comment on above: Community Monitoring Outreach Start: 12-12-2022 Telephone encounter Penny ellison APRN.CONFLICTS ANALYST Work Phone: Hematology/Oncology Comment on above: AVS 12/12 Start: 12-12-2022 End: 12-12-2022 ambulatory Penny Quinteros APRN.CONFLICTS ANALYST Work Phone: Hematology/Oncology Comment on above: Megaloblastic anemia due to vitamin B12 deficiency (Primary Dx); Iron 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 Start: 12-12-2022 End: 12-12-2022 Patient encounter procedure Penny Quinteros APRN.CONFLICTS ANALYST Work Phone: [facility] Start: 12-11-2022 Follow-up encounter Ulises cuenca MD Work Phone: [facility] Start: 12-11-2022 Pacemaker Remote F/U Ulises Carlson MD Work Phone: [facility] Department Start: 11-23-2022 End: 11-23-2022 Patient encounter procedure Jeferson Thomas PA-C Work Phone: Orthopedics Comment on above: Left knee pain, unsp ecified chronicity (Primary Dx); Status post revision of total replacement of left knee Start: 11-23-2022 End: 11-23-2022 Subsequent hospital visit by physician Archie Chacon Work Phone: Radiology Comment on above: 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] Start: 11-02-2022 Orders Only Jeferson Thomas PA-C Work Phone: Orthopaedics Comment on above: 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 Clau Baca Work Phone: [facility] Start: 09-12-2022 End: 09-12-2022 Emergency department patient visit Dr. Clau Baca Work Phone: [facility] Start: 09-06-2022 End: 09-06-2022 ambulatory [facility] Work Phone: Hematology/Oncology Comment on above: Megaloblastic anemia due to vitamin B12 deficiency (Primary Dx) Start: 09-06-[address] Clau Baca Work Phone: [facility] Start: 09-05-2022 Follow-up encounter Ulises cuenca MD Work Phone: [facility] Start: 09-05-2022 Patient encounter procedure Ulises Fischer MD Work Phone: [facility] Department Start: 09-02-2022 ambulatory Carmelo Leavitt RN [facility] Care Management Comment on above: Community Monitoring Outreach Start: 08-30-2022 End: 08-30-[address] Clau Baca Work Phone: [facility] Work Phone: Start: 08-30-2022 End: 08-30-[address] Clau Baca Work Phone: [facility] Start: 08-30-[address] Clau Baca Work Phone: [facility] Start: 08-26-2022 Follow-up encounter Ulises cuenca MD Work Phone: [facility] Start: 08-26-2022 Pacemaker Remote F/U Ulises Carlson MD Work Phone: [facility] Department Start: 08-24-[address] Clau Baca Work Phone: [facility] Start: 08-23-2022 Non-patient / Non-visit Dr. Clau Baca Work Phone: [facility] Start: 08-22-2022 Non-patient / Non-visit Dr. Clau Baca Work Phone: [facility] Start: 08-21-2022 Non-patient / Non-visit Dr. Clau Baca Work Phone: [facility] Start: 08-20-2022 Non-patient / Non-visit Dr. Clau Baca Work Phone: [facility] Start: 08-19-2022 End: 08-23-2022 Evaluation and management of inpatient Dr. Clau Baca Work Phone: [facility] Start: 08-19-2022 Non-patient / Non-visit Dr. Clau Baca Work Phone: [facility] Start: 08-19-2022 Evaluation and management of inpatient Dr. Clau Baca Work Phone: [facility] Start: 08-19-[address] Jerome Baca Work Phone: [facility] Work Phone: Start: 08-12-2022 End: 08-12-2022 Emergency department patient visit Dr. Clau Baca Work Phone: [facility] Start: 08-09-2022 Refill Eryn Older LABOR RELATIONS ANALYST .CONFLICTS ANALYST Work Phone: [facility] Comment on above: Refill Request Start: 07-26-2022 End: 07-26-[address] Clau Baca Work Phone: [facility] Start: 07-12-2022 End: 07-12-2022 ambulatory [facility] Work Phone: Hematology/Oncology Comment on above: Megaloblastic anemia due to vitamin B12 deficiency (Primary Dx) Start: 07-09-2022 Refill Eryn Older LABOR RELATIONS ANALYST .CONFLICTS ANALYST Work Phone: [facility] Comment on above: Refill Request Start: 07-01-2022 End: 07-01-2022 Patient encounter procedure Echocardiogram Banuelos Work Phone: Cardiology Comment on above: Hyperlipidemia, mixe d; S/P AVR; Complete heart block (HCC); History of endocarditis; Memory deficit; Stage 3 chronic kidney disease, unspecified whether stage 3a or 3b CKD (HCC) Start: 06-14-2022 Telephone encounter Raman hutchins DO Work Phone: Hematology/Oncology Comment on above: Results (CBC) Start: 06-14-2022 End: 06-14-2022 ambulatory [facility] Work Phone: Hematology/Oncology Comment on above: Megaloblastic anemia due to vitamin B12 deficiency (Primary Dx) Start: 06-09-2022 Telephone encounter Clau cassidy MD Work Phone: [facility] Comment on above: Social Work Delay of Care Start: 06-07-2022 Telephone encounter Clau cassidy MD Work Phone: [facility] Comment on above: [facility] OT POC Start: 06-05-2022 Follow-up encounter Ulises cuenca MD Work Phone: [facility] Start: 06-05-2022 Pacemaker Remote F/U Ulises Carlson MD Work Phone: [facility] Department Start: 06-03-2022 Telephone encounter Clau cassidy MD Work Phone: [facility] Comment on above: Home Health Point of Care Results; Orders Start: 06-01-2022 Non-patient / Non-visit Dr. Clau Baca Work Phone: [facility] Start: 06-01-2022 Telephone encounter Clau cassidy MD Work Phone: [facility] Comment on above: [facility] agree to foll ow request Start: 05-31-2022 Non-patient / Non-visit Dr. Clau Baca Work Phone: [facility] Start: 05-30-2022 Non-patient / Non-visit Dr. Clau Baca Work Phone: [facility] Start: 05-30-2022 End: 06-02-2022 [facility] Start: 05-30-2022 Telephone encounter Clau cassidy MD Work Phone: Internal [facility] Comment on above: Patient Update Start: 05-17-2022 End: 05-17-2022 ambulatory [facility] Work Phone: Hematology/Oncology Comment on above: Megaloblastic anemia due to vitamin B12 deficiency (Primary Dx) Start: 05-12-2022 Telephone encounter Eryn Elliott APRN.CONFLICTS ANALYST Work Phone: Internal [facility] Comment on above: Blood Pressure Check (/) Start: 05-12-2022 End: 05-12-2022 Nursing evaluation of patient and report Mi Nurse Work Phone: [facility] Comment on above: Complete heart block (HCC) (Primary Dx); History of endocarditis Start: 04-22-2022 Telephone encounter Clau cassidy MD Work Phone: Internal [facility] Comment on above: Results Start: 04-19-2022 End: 04-19-2022 ambulatory [facility] Work Phone: Hematology/Oncology Comment on above: Megaloblastic anemia due to vitamin B12 deficiency (Primary Dx) Start: 04-05-2022 ambulatory Tree Chaparro RN [facility] Care Management Comment on above: Community Monitoring Outreach Start: 03-22-2022 End: 03-22-2022 ambulatory [facility] Work Phone: Hematology/Oncology Comment on above: Megaloblastic anemia due to vitamin B12 deficiency (Primary Dx) Start: 03-14-2022 Refill Eryn OwneCONFLICTS ANALYST Work Phone: [facility] Comment on above: Refill Request Start: 03-14-2022 Refill Eryn OwenCONFLICTS ANALYST Work Phone: [facility] Comment on above: Refill Request Start: 03-01-2022 End: 03-01-2022 Patient encounter procedure Avtar Hearn DO Work Phone: Cardiology Comment on above: Hyperlipidemia, mixe d (Primary Dx); S/P AVR; Complete heart block (HCC); History of endocarditis; Memory deficit; Stage 3 chronic kidney disease, unspecified whether stage 3a or 3b CKD (HCC); Pacemaker Start: 02-28-2022 Follow-up encounter Ulises cuenca MD Work [facility] Start: 02-28-2022 Pacemaker Remote F/U Ulises Carlson MD Work Phone: [facility] Department Start: 02-22-2022 End: 02-22-2022 ambulatory [facility] Work Phone: Hematology/Oncology Comment on above: Megaloblastic anemia due to vitamin B12 deficiency (Primary Dx) Start: 02-20-2022 Refill Eryn Elliott LABOR RELATIONS ANALYST .CONFLICTS ANALYST Work Phone: [facility] Comment on above: Refill Request Start: 02-02-2022 Refill Eryn Elliott LABOR RELATIONS ANALYST .CONFLICTS ANALYST Work Phone: [facility] Comment on above: Refill Request Start: 01-25-2022 End: 01-25-2022 ambulatory [facility] Work Phone: Hematology/Oncology Comment on above: Megaloblastic anemia due to vitamin B12 deficiency (Primary Dx) Start: 01-12-2022 Telephone encounter Eryn Elliott APRN.CONFLICTS ANALYST Work Phone: [facility] Comment on above: Results Start: 01-12-2022 End: 01-12-2022 Nursing evaluation of patient and report Mi Nurse Work Phone: [facility] Comment on above: Need for vaccination (Primary Dx) Start: 01-10-2022 Telephone encounter Eryn Elliott APRN.CONFLICTS ANALYST Work Phone: [facility] Comment on above: Orders Start: 01-10-2022 End: 01-10-2022 Patient encounter procedure Eryn Elliott LABOR RELATIONS ANALYST.CONFLICTS ANALYST Work Phone: [facility] Comment on above: Stage 3 chronic kidn ey disease, unspecified whether stage 3a or 3b CKD (HCC) (Primary Dx); Function kidney decreased; Coronary artery disease involving [place] coronary artery of [place] heart without angina pectoris; Hyperlipidemia, unspecified hyperlipidemia type; Memory deficit; Hyperactivity of bladder; Stenosis of prosthetic aortic valve, sequela Start: 01-05-2022 ambulatory Tree Chaparro RN Am bul[facility] Alerts Comment on above: Community Monitoring Outreach (CKD CDM Outreach) Start: 12-28-2021 Telephone encounter Raman hutchins DO Work Phone: Hematology/Oncology Comment on above: Results (Elevated se rum Cr) Start: 12-28-2021 End: 12-28-2021 ambulatory [facility] Work Phone: Hematology/Oncology Comment on above: Megaloblastic anemia due to vitamin B12 deficiency (Primary Dx) Start: 12-28-2021 End: 12-28-2021 Patient encounter procedure Raman Caruso DO Work Phone: [facility] Start: 12-27-2021 Orders Only Raman Pressley Work Phone: Hematology/Oncology Comment on above: Megaloblastic anemia due to vitamin B12 deficiency (Primary Dx); Iron 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; Other vitamin B12 deficiency anemia; Copper deficiency Start: 12-10-2021 End: 12-10-2021 Patient encounter procedure Eryn Elliott APRN.CNP Work Phone: [facility] Comment on above: Dark stools (Primary Dx); History of UTI; Memory deficit; Stage 3 chronic kidney disease, unspecified whether stage 3a or 3b CKD (HCC); Medication monitoring encounter; Hyperlipidemia, unspecified hyperlipidemia type Start: 11-30-2021 ambulatory Tree Chaparro RN [facility] Care Management Comment on above: Community Monitoring Outreach (CKD CDM Outreach) Start: 11-26-2021 Orders Only Raman Pressley Work Phone: Hematology/Oncology Comment on above: Megaloblastic anemia due to vitamin B12 deficiency (Primary Dx); Iron 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; Copper deficiency Start: 11-22-2021 ambulatory Tree Chaparro RN [facility] Care Management Comment on above: Community Monitoring Outreach (CKD CDM Outreach) Start: 11-19-2021 Follow-up encounter Ulises cuenca MD Work Phone: [facility] Start: 11-19-2021 Pacemaker Remote F/U Ulises Carlson MD Work Phone: [facility] Department Start: 11-11-2021 End: 11-11-2021 Patient encounter procedure Anatoly Brown DO Work Phone: Orthopaedics Comment on above: 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); Status post revision of total replacement of left knee Start: 11-11-2021 End: 11-11-2021 Subsequent hospital visit by physician [facility] Comment on above: Status post knee stephany flo [Z98.890] Start: 11-08-2021 ambulatory Tree Chaparro RN Am [facility] Care Management Comment on above: Community Monitoring Outreach (CKD CDM Outreach) Start: 11-02-2021 End: 11-02-2021 ambulatory [facility] Work Phone: Hematology/Oncology Comment on above: Megaloblastic anemia due to vitamin B12 deficiency (Primary Dx) Community Monitoring Outreach (CKD / GIB CDM Outreach) Start: 10-30-2021 End: 10-30-2021 Emergency department patient visit Dr[facility] Clau Baca [facility] Start: 10-29-2021 Telephone encounter Eryn Elliott APRN.CNP Work Phone: [facility] Comment on above: Results Start: 10-27-2021 End: 10-27-2021 Emergency department patient visit Dr. 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) Orders Acute pain of left k nee [M25.562] Start: 10-04-2021 Telephone encounter Raman hutchins DO Work Phone: Hematology/Oncology Comment on above: Appointment Cancelle d Start: 09-30-2021 ambulatory Tree Chaparro RN, Am bul[facility] Care Management Comment on above: Insight Escalation ( Croze Machine Operator Questionnaire Triggered call) Start: 09-13-2021 ambulatory Tree Chaparro RN Am [facility] Care Management Comment on above: Community Monitoring Outreach (CKD CDM Outreach) Start: 09-06-2021 End: 09-06-2021 ambulatory [facility] Work Phone: Hematology/Oncology Comment on above: Megaloblastic anemia due to vitamin B12 deficiency (Primary Dx) Start: 09-05-2021 Refill Clau Larueano Work Phone: [facility] Comment on above: Refill Request Start: 09-03-2021 ambulatory Tree Chaparro RN, Am [facility] Care Management Comment on above: Community Monitoring Outreach (CKD CDM) Start: 08-23-2021 ambulatory Tree Chaparro RN, Am bul[facility] Care Management Comment on above: Community Monitoring Outreach ( Bronchitis CDM Enrollment) Start: 08-22-2021 Follow-up encounter Ulises cuenca MD Work Phone: [facility] Start: 08-22-2021 Pacemaker Remote F/U Ulises Carlson MD Work Phone: [facility] Department Start: 07-20-2021 End: 07-20-[address] 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, subsequent encounter [T84.54XD] Start: 01-15-2021 End: 01-15-2021 Subsequent hospital visit by physician Xr [facility] Work Phone: Radiology Comment on above: 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, initial encounter ([facility]) [T84.54XA] Start: 12-11-2020 End: 12-11-2020 Subsequent hospital visit by physician Xr [facility] Work Phone: Radiology Comment on above: 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, initial encounter (HCC) [T84.54XA] Start: 10-30-2020 End: 10-30-2020 Subsequent hospital visit by physician Xr [facility] Work Phone: Radiology Comment on above: Left knee pain, unsp ecified chronicity [M25.562] Start: 03-31-2020 End: 03-31-2020 Subsequent hospital visit by physician [facility] Work Phone: Radiology Comment on above: Fall, subsequent enc ounter [W19.XXXD] Start: 04-19-2019 End: 04-30-2019 Patient encounter status Raman Caruso DO Work Phone: [facility] Work Phone: Procedures Date Procedure Procedure Detail Performing Clinician Start: 10-10-2024 Vitamin D, 25-hydrox y measurement Dr. Ca Silva MD Comment on above: Vitamin D StatusDefi ciency: <20 ng/mL (50nmol/L)Insufficiency: 20-30 ng/mL (50-75 nmol/L)Sufficiency: 30-100 ng/mL (75-250 nmol/L)Toxicity: >100 ng/mL (>250 nmol/L) Start: 08-05-2023 PACEMAKER REMOTE CHECK Ulises Fischer MD Work Phone: Start: 04-30-2023 PACEMAKER REMOTE CHECK Ulises Fischer MD Work Phone: Start: 04-24-2023 Urine culture Start: 12-11-2022 PACEMAKER REMOTE CHECK Ulises Fischer MD Work Phone: Start: 11-23-2022 Radiologic examinati on knee 3 views Jeferson Thomas PA-C Work Phone: Start: 09-12-2022 CT of head without contrast Dr. Clau Baac Work Phone: Start: 09-05-2022 PACEMAKER CLINIC CHECK Ulises Fischer MD Work Phone: Start: 08-26-2022 PACEMAKER REMOTE CHECK Ulises Fischer MD Work Phone: Start: 08-19-2022 Plain chest X-ray Dr. Vanda Baca Work Phone: Start: 08-19-2022 Plain X-ray of shoulder Dr. Clau Baca Work Phone: Start: 08-19-2022 CT of head without contrast Dr. Clau Baca Work Phone: Start: 08-12-2022 Plain chest X-ray Dr. Vanda Baca Work Phone: Start: 08-12-2022 CT of head without contrast Dr. Clau Bcaa Work Phone: Start: 07-26-[address] Billy Baca Work Phone: Start: 06-05-2022 PACEMAKER REMOTE CHECK Ulises Fischer MD Work Phone: Start: 02-28-2022 PACEMAKER REMOTE CHECK Ulises Fischer MD Work Phone: Start: 01-12-2022 PFIZER-BIONTECH COVI D-19 VACCINE, AGE 12+ YR (CAMACHO TOP) Clau Baca MD Work Phone: Start: 11-19-2021 PACEMAKER REMOTE CHECK Ulises Fischer MD Work Phone: Start: 11-11-2021 Radiologic examinati on knee 3 views Anatoly Brown DO Work Phone: Start: 10-30-2021 End: 10-30-2021 Measurement of occult blood in stool specimen using immunoassay Dr. Clau Baca Work Phone: Start: 10-27-2021 Plain chest X-ray Dr. Vanda aBca Work Phone: Start: 10-27-[address] Christopher Baca Work Phone: Start: 10-21-2021 Radiologic exam knee complete 4/more views Eryn Elliott APRN.CNP Work Phone: Start: 08-22-2021 PACEMAKER REMOTE CHECK Ulises Fischer MD Work Phone: Start: 05-13-2021 Radiologic examinati on femur minimum 2 views Jeferson Thomas PA-C Work Phone: Start: 03-12-2021 Radiologic examinati on knee 3 views Anatoly Brown DO Work Phone: Start: 01-15-2021 Radiologic examinati on knee 1/2 views Anatoly Brown DO Work Phone: Start: 12-11-2020 Radiologic examinati on knee 1/2 views Anatoly Carolin DO Work Phone: Start: 10-30-2020 Radiologic exam knee complete 4/more views Anatoly Brown DO Work Phone: Bacteria identified in Blood by Culture Dr. Clau Baca Work Phone: Clostridium difficil e detection Dr. Clau Baca Work Phone: Clostridium difficil e detection Dr. Clau Baca Work Phone: History of operative procedure on knee Status post knee surgery Anatoly Brown DO Work Phone: History of operative procedure on knee Status post knee surgery [facility] Measurement of occul t blood in stool specimen using immunoassay Dr. Clau Baca Work Phone: Urine culture Dr. Clau cassidy Work Phone: Urine culture Dr. Clau cassidy Work Phone: Urine culture Dr. Clau cassidy Work Phone: Urine culture Dr. Clau cassidy Work Phone: Viral antigen assay Dr. Jerome Baca Work Phone: Viral antigen assay Dr. Jerome Baca Work Phone: Plan of Treatment Date Care Activity Detail Author Start: 07-29-2027 [facility] Start: 05-20-2027 [facility] Start: 06-20-2025 DI[address]ETES [address]CREEN [address] SCREEN [facility] Start: 06-20-2025 Diabetes Screening Diabetes Screenin [facility] Start: 06-09-2025 End: 06-09-2025 ambulatory [facility] Comment on above: CBC/BMP/B12/MMA/PB ER/Iron studies 6MO OV/LABS Start: 04-19-2025 DI[address]ES [address]EN [address]ES SCREEN [facility] Start: 03-16-2025 DIABETES SCREEN DIABETES SCREEN [facility] Start: 02-03-2025 Influenza vaccination C [facility] Start: 01-10-2025 DIABETES SCREEN DIABETES SCREEN [facility] Start: 12-28-2024 DIABETES SCREEN DIABETES SCREEN [facility] Start: 12-03-2024 Complete blood count Hemoglobin/Hai tocrit [facility] Start: 12-02-2024 End: 03-03-2025 Ferritin [Mass/volume] in Serum or Plasma [facility] Work Phone: Comment on above: Expected: 12/02/2024 , Expires: 03/03/2025 Start: 12-02-2024 End: 03-03-2025 Iron and Iron binding capacity panel - Serum or Plasma [facility] Comment on above: Expected: 12/02/2024 , Expires: 03/03/2025 Start: 12-02-2024 End: 12-02-2024 ambulatory [facility] Comment on above: CBC/B12/MMA/Copper* I YR OV/LABS EARLY* Start: 09-25-2024 Covid-19 Vaccine ( season) Covid-19 Vaccine () [facility] Start: 08-08-2024 End: 08-08-2024 ambulatory 08/08/2024 2:00 PM EST Visit (SP) Office Hematology/Oncology [address] [place] [address] Vivi Cooley [address] [place] [address] 2MO OV/LABS 07/29* Hematology/Oncology Comment on above: 2MO OV/LABS 07/29* Start: 08-01-2024 End: 08-01-2024 ambulatory Hematology/Oncology Comment on above: 2MO OV/LABS? 2MO OV/LABS 07/29* Start: 07-29-2024 End: 07-29-2024 ambulatory 07/29/2024 10:00 AM EST Results Only Cat [facility] [address] [place] [address] CBC/BMP/IRON STUDIES/B12/FOLATE/TSH/ COPPER [facility] Comment on above: CBC/BMP/IRON STUDIES /B12/FOLATE/TSH/COPPER Start: 07-12-2024 DIABETES SCREEN DIABETES SCREEN [facility] Start: 06-10-2024 End: 06-10-2024 ambulatory 06/10/2024 3:30 PM EST Infusion Center Hematology/Oncology [address] [place] [address] 2ND FLOOR Hematology/Oncology Comment on above: 2ND FLOOR Start: 06-06-2024 End: 06-06-2024 ambulatory 06/06/2024 3:00 PM EST Infusion Center Hematology/Oncology [address] [place] [address] 2ND FLOOR Hematology/Oncology Comment on above: 2ND FLOOR Start: 06-05-2024 Advance Directive Discussion Advance Directive Discussion [facility] Start: 06-03-2024 End: 06-03-2024 ambulatory 06/03/2024 9:30 AM EST Infusion Center Hematology/Oncology [address] [place] [address] 2ND FLOOR Hematology/Oncology Comment on above: 2ND FLOOR Start: 05-31-2024 End: 05-31-2024 ambulatory 05/31/2024 3:00 PM EST Infusion Center Hematology/Oncology [address] [place] [address] 2ND FLOOR Hematology/Oncology Comment on above: 2ND FLOOR Start: 05-30-2024 End: 05-30-2024 ambulatory 05/30/2024 3:30 PM EST Infusion Center Hematology/Oncology [address] [place] [address] 2ND FLOOR Hematology/Oncology Comment on above: 2ND FLOOR Start: 05-28-2024 End: 05-28-2024 ambulatory 05/28/2024 11:00 AM EST Infusion Center Hematology/Oncology [address] [place] [address] 2ND FLOOR Hematology/Oncology Comment on above: 2ND FLOOR Start: 05-21-2024 End: 05-21-2024 ambulatory 05/21/2024 9:30 AM EST Visit (SP) Office Hematology/Oncology [address] [place] [address] Raman Caruso, [address] [place] [address] I YR OV/LABS EARLY* Hematology/Oncology Comment on above: I YR OV/LABS EARLY* Start: 05-14-2024 End: 05-14-2024 ambulatory 05/14/2024 9:00 AM EST Results Only Cat [place] [facility] [address] [place] [address] CBC/BMP/iron studies* Cat [place] [facility] Comment on above: CBC/BMP/iron studies * Start: 02-04-2024 Covid-19 Vaccine ( season) Covid-19 Vaccine ( season) [facility] Start: 02-04-2024 Covid-19 Vaccine ( season) Covid-19 Vaccine ( season) [facility] Start: 02-04-2024 Influenza vaccination Influenza Vacc ine (#1) [facility] Start: 12-04-2023 End: 03-04-2024 Cobalamin (Vitamin B12) [Mass/volume] in Serum or Plasma [facility] Work Phone: Comment on above: Expected: 12/04/2023 , Expires: 03/04/2024 Start: 12-04-2023 End: 03-04-2024 COPPER BLOOD [facility] Comment on above: Expected: 12/04/2023 , Expires: 03/04/2024 Start: 12-04-2023 End: 03-04-2024 Ferritin [Mass/volume] in Serum or Plasma [facility] Comment on above: Expected: 12/04/2023 , Expires: 03/04/2024 Start: 12-04-2023 End: 03-04-2024 Iron and Iron binding capacity panel - Serum or Plasma [facility] Comment on above: Expected: 12/04/2023 , Expires: 03/04/2024 Start: 12-04-2023 End: 03-04-2024 Methylmalonate [Moles/volume] in Serum or Plasma [facility] Comment on above: Expected: 12/04/2023 , Expires: 03/04/2024 Start: 11-24-2023 Complete blood count Hemoglobin/Hai tocrit [facility] Start: 11-24-2023 [facility] Start: 10-21-2023 Covid-19 Vaccine () Covid-19 Vaccine () [facility] Start: 10-05-2023 HEMOGLOBIN/HEMATOCRIT HEMOGLOBIN/HEM ATOCRIT [facility] Start: 09-07-2023 HEMOGLOBIN/HEMATOCRIT HEMOGLOBIN/HEM ATOCRIT [facility] Start: 08-10-2023 HEMOGLOBIN/HEMATOCRIT HEMOGLOBIN/HEM ATOCRIT [facility] Start: 07-12-2023 HEMOGLOBIN/HEMATOCRIT HEMOGLOBIN/HEM ATOCRIT [facility] Start: 06-20-2023 Creatinine measurement Serum Creatin ine [facility] Start: 06-20-2023 HEMOGLOBIN/HEMATOCRIT HEMOGLOBIN/HEM ATOCRIT [facility] Start: 06-20-2023 SERUM CREATININE SERUM CREATININE [facility] Start: 06-16-2023 ANNUAL PCP TEAM LIFELINE REPRESENTATIVES LNIA DISEASE VISIT ANNUAL PCP TEAM CHRONIC DISEASE VISIT [facility] Start: 06-14-2023 HEMOGLOBIN/HEMATOCRIT HEMOGLOBIN/HEM ATOCRIT [facility] Start: 06-05-2023 Advance Directive Discussion Advance Directive Discussion [facility] Start: 05-17-2023 HEMOGLOBIN/HEMATOCRIT HEMOGLOBIN/HEM ATOCRIT [facility] Start: 04-19-2023 HEMOGLOBIN/HEMATOCRIT HEMOGLOBIN/HEM ATOCRIT [facility] Start: 04-19-2023 SERUM CREATININE SERUM CREATININE [facility] Start: 04-12-2023 ANNUAL PCP TEAM LIFELINE REPRESENTATIVES LINA DISEASE VISIT ANNUAL PCP TEAM CHRONIC DISEASE VISIT [facility] Start: 03-22-2023 HEMOGLOBIN/HEMATOCRIT HEMOGLOBIN/HEM ATOCRIT [facility] Start: 03-16-2023 SERUM CREATININE SERUM CREATININE [facility] Start: 02-22-2023 HEMOGLOBIN[facility]CR[facility] Start: 02-03-2023 Covid-19 Vaccine () Covid-19 Vaccine () [facility] Start: 02-03-2023 Influenza vaccination [facility] Start: 01-25-2023 HEMOGLOBIN/HEMATOCRIT HEMOGLOBIN/HEM ATOCRIT [facility] Start: 01-10-2023 ANNUAL PCP TEAM LIFELINE REPRESENTATIVES LINA DISEASE VISIT ANNUAL PCP TEAM CHRONIC DISEASE VISIT [facility] Start: 01-10-2023 Hepatitis B surface antibody level LDL CHOLESTEROL [facility] Start: 01-10-2023 PNEUMOCOCCAL: 65+ (2 - PCV) PNEUMOCOCCAL: 65+ (2 - PCV) [facility] Comment on above: Postponed from 04/11 (Declined at this time) Start: 01-10-2023 SERUM CREATININE SERUM CREATININE [facility] Start: 12-28-2022 HEMOGLOBIN/HEMATOCRIT HEMOGLOBIN/HEM ATOCRIT [facility] Start: 12-28-2022 SERUM CREATININE SERUM CREATININE [facility] Start: 12-10-2022 ANNUAL PCP TEAM LIFELINE REPRESENTATIVES LINA DISEASE VISIT ANNUAL PCP TEAM CHRONIC DISEASE VISIT [facility] Start: 12-02-2022 HEMOGLOBIN/HEMATOCRIT HEMOGLOBIN/HEM ATOCRIT [facility] Start: 11-02-2022 HEMOGLOBIN/HEMATOCRIT HEMOGLOBIN/HEM ATOCRIT [facility] Start: 10-29-2022 HEMOGLOBIN/HEMATOCRIT HEMOGLOBIN/HEM ATOCRIT [facility] Start: 10-27-2022 H[facility]GLOB[facility] Start: 10-21-2022 ANNUAL PCP TEAM LIFELINE REPRESENTATIVES LINA DISEASE VISIT ANNUAL PCP TEAM CHRONIC DISEASE VISIT [facility] Start: 10-21-2022 HEMOGLOBIN/HEMATOCRIT HEMOGLOBIN/HEM ATOCRIT [facility] Start: 09-06-2022 HEMOGLOBIN/HEMATOCRIT HEMOGLOBIN/HEM [facility] Start: 08-23-2022 Patient discharge [facility] Start: 08-20-2022 Application of intermittent pneumatic compression device [facility] Start: 08-19-2022 End: 08-19-2022 Following clinical pathway protocol [facility] Start: 08-19-2022 Admission procedure [facility] Start: 08-19-2022 Ambulation without limitation [facility] Start: 08-19-2022 Assessment of risk o f venous thromboembolism [facility] Start: 08-19-2022 Insertion of cathete r into peripheral vein [facility] Start: 08-19-2022 Providing care accor ding to standard [facility] Start: 08-19-2022 Referral to occupati onal therapist [facility] Start: 08-19-2022 Referral to service [facility] Start: 08-19-2022 Verification routine [facility] Start: 08-19-2022 Admission procedure [facility] Start: 08-19-2022 Blood culture [facility] Start: 08-19-2022 End: 08-19-2022 [facility] Start: 08-19-2022 Blood culture [facility] Start: 08-12-2022 [facility] Start: 08-09-2022 HEMOGLOBIN/HEMATOCRIT HEMOGLOBIN/HEM [facility] Start: 07-12-2022 SERUM CREATININE SERUM CREATININE Cl [facility] Start: 06-16-2022 ANNUAL PCP TEAM LIFELINE REPRESENTATIVES LINA DISEASE VISIT ANNUAL PCP TEAM CHRONIC DISEASE VISIT [facility] Start: 06-16-2022 SHINGRIX VACCINE (1 of 2) RUIZ GRIX VACCINE (1 of 2) [facility] Comment on above: Postponed from 05/03 (Declined at this time) Start: 06-16-2022 Urine microalbumin profile DTAP,TDAP ,TD (1 - Tdap) [facility] Comment on above: Postponed from 05/03 (Declined at this time) Start: 06-14-2022 End: 08-14-2022 COPPER BLOOD COPPER BLOOD Lab Routine Iron 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 Copper deficiency Expected: 06/14/2022, Expires: 08/14/2022 [facility] Work Phone: Comment on above: Expected: 06/14/2022 , Expires: 08/14/2022 Start: 06-14-2022 End: 08-14-2022 Ferritin [Mass/volume] in Serum or Plasma FERRITIN BLD Lab Routine Iron 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 Copper deficiency Expected: 06/14/2022, Expires: 08/14/2022 [facility] Work Phone: Comment on above: Expected: 06/14/2022 , Expires: 08/14/2022 Start: 06-14-2022 End: 08-14-2022 Iron and Iron binding capacity panel - Serum or Plasma IRON + TIBC Lab Routine Iron 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 Copper deficiency Expected: 06/14/2022, Expires: 08/14/2022 [facility] Work Phone: Comment on above: Expected: 06/14/2022 , Expires: 08/14/2022 Start: 06-05-2022 ADVANCE DIRECTIVE DISCUSSION ADVANCE DIRECTIVE DISCUSSION [facility] Start: 06-02-2022 Patient discharge [facility] Start: 06-01-2022 Removal of urinary catheter [facility] Start: 06-01-2022 Referral to service [facility] Start: 06-01-2022 Removal of urinary catheter [facility] Start: 05-30-2022 Application of intermittent pneumatic compression device [facility] Start: 05-30-2022 Following clinical p athway protocol [facility] Start: 05-30-2022 Assessment of risk o f venous thromboembolism [facility] Start: 05-30-2022 Documentation procedure [facility] Start: 05-30-2022 Incentive spirometry [facility] Start: 05-30-2022 Insertion of cathete r into peripheral vein [facility] Start: 05-30-2022 Measuring intake and output [facility] Start: 05-30-2022 Providing care accor ding to standard [facility] Start: 05-30-2022 Referral to occupati onal therapist [facility] Start: 05-30-2022 Referral to service [facility] Start: 05-30-2022 [facility] Start: 05-30-2022 Verification routine [facility] Work Phone: Start: 05-30-2022 Measurement of occul t blood in stool specimen using immunoassay [facility] Work Phone: Start: 05-30-2022 Urinalysis complete panel - Urine [facility] Work Phone: Start: 05-30-2022 Admission procedure [facility] Start: 03-09-2022 COVID-19 VACCINE (5 - Booster for Pfizer series) COVID-19 VACCINE (5 - Booster for Pfizer series) [facility] Start: 03-09-2022 COVID-19 VACCINE (5 - Pfizer series) COVID-19 VACCINE (5 - Pfizer series) [facility] Start: 02-03-2022 Influenza vaccination INFLUENZA (#1) [facility] Start: 01-26-2022 End: 03-28-2022 Basic metabolic 2000 panel - Serum or Plasma BASIC METABOLIC PNL Lab Routine Function kidney decreased Expected: 01/26/2022 (Approximate), Expires: 03/28/2022 [facility] Work Phone: Comment on above: Expected: 01/26/2022 (Approximate), Expires: 03/28/2022 Start: 01-10-2022 End: 03-12-2022 Lipid 1996 panel - Serum or Plasma [facility] Work Phone: Comment on above: Expected: 01/10/2022 , Expires: 03/12/2022 Start: 12-28-2021 End: 02-27-2022 CBC W Auto Differential panel - Blood CBC + DIFF Lab STAT 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 Other vitamin B12 deficiency anemia Copper deficiency Expected: 12/28/2021, Expires: 02/27/2022 [facility] Work Phone: Comment on above: Expected: 12/28/2021 , Expires: 02/27/2022 Start: 12-28-2021 End: 02-27-2022 Cobalamin (Vitamin B12) [Mass/volume] in Serum or Plasma VITAMIN B12 BLOOD Lab Routine 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 Other vitamin B12 deficiency anemia Copper deficiency Expected: 12/28/2021, Expires: 02/27/2022 [facility] Work Phone: Comment on above: Expected: 12/28/2021 , Expires: 02/27/2022 Start: 12-28-2021 End: 02-27-2022 Comprehensive metabolic 2000 panel - Serum or Plasma COMP METABOLIC PANEL Lab Routine 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 Other vitamin B12 deficiency anemia Copper deficiency Expected: 12/28/2021, Expires: 02/27/2022 [facility] Work Phone: Comment on above: Expected: 12/28/2021 , Expires: 02/27/2022 Start: 12-28-2021 End: 02-27-2022 COPPER BLOOD COPPER BLOOD Lab Routine 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 Other vitamin B12 deficiency anemia Copper deficiency Expected: 12/28/2021, Expires: 02/27/2022 [facility] Work Phone: Comment on above: Expected: 12/28/2021 , Expires: 02/27/2022 Start: 12-28-2021 End: 02-27-2022 Ferritin [Mass/volume] in Serum or Plasma FERRITIN BLD Lab Routine 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 Other vitamin B12 deficiency anemia Copper deficiency Expected: 12/28/2021, Expires: 02/27/2022 [facility] Work Phone: Comment on above: Expected: 12/28/2021 , Expires: 02/27/2022 Start: 12-28-2021 End: 02-27-2022 Iron and Iron binding capacity panel - Serum or Plasma IRON + TIBC Lab Routine 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 Other vitamin B12 deficiency anemia Copper deficiency Expected: 12/28/2021, Expires: 02/27/2022 [facility] Work Phone: Comment on above: Expected: 12/28/2021 , Expires: 02/27/2022 Start: 12-24-2021 End: 02-23-2022 Comprehensive metabolic 2000 panel - Serum or Plasma COMP METABOLIC PANEL Lab Routine Stage 3 chronic kidney disease, unspecified whether stage 3a or 3b CKD (HCC) Medication monitoring encounter Expected: 12/24/2021 (Approximate), Expires: 02/23/2022 [facility] Work Phone: Comment on above: Expected: 12/24/2021 (Approximate), Expires: 02/23/2022 Start: 12-10-2021 End: 02-09-2022 Lipid 1996 panel - Serum or Plasma LIPID PANEL BASIC Lab Routine Hyperlipidemia, unspecified hyperlipidemia type Expected: 12/10/2021, Expires: 02/09/2022 [facility] Work Phone: Comment on above: Expected: 12/10/2021 , Expires: 02/09/2022 Start: 10-27-2021 Bacteria identified in Urine by Culture Urine Culture [facility] Work Phone: Start: 10-21-2021 End: 12-21-2021 C reactive protein [Mass/volume] in Serum or Plasma C-REACTIVE PROTEIN (CRP) Lab Routine Status post revision of total replacement of left knee Expected: 10/21/2021, Expires: 12/21/2021 [facility] Work Phone: Comment on above: Expected: 10/21/2021 , Expires: 12/21/2021 Start: 10-21-2021 End: 12-21-2021 Erythrocyte sedimentation rate SED RATE WESTERGREN Lab Routine Status post revision of total replacement of left knee Expected: 10/21/2021, Expires: 12/21/2021 [facility] Work Phone: Comment on above: Expected: 10/21/2021 , Expires: 12/21/2021 Start: 07-17-2021 COVID-19 VACCINE (4 - Booster for Pfizer series) COVID-19 VACCINE (4 - Booster for Pfizer series) [facility] Start: 06-05-2021 ADVANCE DIRECTIVE DISCUSSION ADVANCE DIRECTIVE DISCUSSION [facility] Start: 06-14-2020 Hepatitis B surface antibody level LDL CHOLESTEROL [facility] Start: 04-11-2020 Pneumococcal Vaccine : 50+ (2 of 2 - PCV) Pneumococcal Vaccine: 50+ (2 of 2 - PCV) [facility] Start: 04-11-2020 Pneumococcal Vaccine : 65+ (2 - PCV) Pneumococcal Vaccine: 65+ (2 - PCV) [facility] Start: 04-11-2020 Pneumococcal Vaccine : 65+ (2 of 2 - PCV) Pneumococcal Vaccine: 65+ (2 of 2 - PCV) [facility] Start: 04-11-2020 PNEUMOCOCCAL: 65+ (2 - PCV) PNEUMOCOCCAL: 65+ (2 - PCV) [facility] Start: 2018 RSV Vaccine (1 - 1-d ose 75+ series) RSV Vaccine (1 - 1-dose 75+ series) [facility] Start: 04-23-2017 End: 04-23-2017 Appointment Appointment [facility] Work Phone: Start: 08-03-2012 Medicare Annual Well ness Visit Medicare Annual Wellness Visit [facility] Start: 2003 RSV Vaccine (1 - 1-d ose 60+ series) RSV Vaccine (1 - 1-dose 60+ series) [facility] Start: 1993 SHINGRIX VACCINE (1 of 2) RUIZ GRIX VACCINE (1 of 2) [facility] Start: 1962 Urine microalbumin profile [facility] Start: 1943 Dental Oral Exam Dental Oral Exam [facility] Start: 1943 Dental Perio Probing Dental Perio Pr obing [facility] Start: 1943 Dental Prophylaxis Dental Prophylaxi s [facility] Start: 1943 Dental X-Ray: Bitewings Dental X-Ray : Bitewings [facility] Start: 1943 Dental X-Ray: FMX/Benitez Dental X-Ray: FMX/Benitez [facility] Start: 1943 Periodontal Maintenance Periodontal Maintenance [facility] Bacteria identified in Blood by Culture Blood Culture [facility] Bacteria identified in Blood by Culture Blood Culture [facility] Bacteria identified in Urine by Culture Urine Culture [facility] End: 11-26-2022 CBC W Auto Differential panel - Blood CBC + DIFF Lab STAT 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 Copper deficiency Once per month for 12 Occurrences starting 11/26/2021 until 11/26/2022 [facility] Work Phone: Comment on above: Once per month for 1 2 Occurrences starting 11/26/2021 until 11/26/2022 End: 03-01-2023 ECG COMPLETE ECG COMPLETE ECG Routine Hyperlipidemia, mixed S/P AVR Complete heart block (HCC) History of endocarditis Memory deficit Stage 3 chronic kidney disease, unspecified whether stage 3a or 3b CKD (HCC) 1 Occurrences starting 03/01/2022 until 03/01/2023 [facility] Work Phone: Comment on above: 1 Occurrences starti ng 03/01/2022 until 03/01/2023 End: 03-01-2023 Echocardiography ECHO Cardiology Routine Hyperlipidemia, mixed S/P AVR Complete heart block (HCC) History of endocarditis Memory deficit Stage 3 chronic kidney disease, unspecified whether stage 3a or 3b CKD (HCC) 1 Occurrences starting 03/01/2022 until 03/01/2023 [facility] Work Phone: Comment on above: 1 Occurrences starti ng 03/01/2022 until 03/01/2023 Hemoglobin.gastroint estina l.lower [Presence] in Stool by Immunoassay FECAL OCCULT BLOOD TEST Lab Routine Other fatigue Dark stools History of GI bleed Ordered: 10/27/2021 [facility] Work Phone: Comment on above: Ordered: 10/27/2021 Patient Education [facility] Work Phone: Patient referral [facility] Work Phone: End: 12-02-2023 XR KNEE GENERAL 4V AP BOTH/PA BOTH/LAT/MERC LEFT XR KNEE GENERAL 4V AP BOTH/PA BOTH/LAT/MERC LEFT Radiology Routine Status post revision of total replacement of left knee 1 Occurrences starting 11/02/2022 until 12/02/2023 [facility] Work Phone: Comment on above: 1 Occurrences starti ng 11/02/2022 until 12/02/2023 [facility] Immunizations Immunization Date Immunization Notes Care Provider [facility] 04-12-2022 Influenza, high dose seasonal Dr. Ca Silva MD [facility] 04-12-2022 influenza, high dose seasonal, preservative-free Dr. Clau Baca Work Phone: [facility] 04-12-2022 influenza, high-dose , quadrivalent vaccine (FLUZONE HIGH DOSE QUADRIVALENT) Injection [facility] Work Phone: [facility] 04-12-2022 influenza virus vacc ine, unspecified formulation Xr Twin [facility] 01-12-2022 Covid (Pfizer) Dr. Clau hoffman Work Phone: [facility] 01-12-2022 COVID-19 vaccine, ag e 12+ yr (PFIZER-BIONTECH - [place] TOP) Eryn Elliott APRN.CONFLICTS ANALYST Work Phone: [facility] Work Phone: 03-16-2021 Covid (Pfizer) Dr. Clau hoffman Work Phone: [facility] 03-05-2021 influenza, seasonal, injectable Ulises Fischer MD Work Phone: [facility] Work Phone: 08-27-2020 COVID-19 vaccine, ag e 12+ yr (Biolase-BIONTECH - PURPLE TOP) Ulises Fischer MD Work Phone: [facility] Work Phone: 08-06-2020 COVID-19 vaccine, ag e 12+ yr (Biolase-SensioLabs - PURPLE TOP) Ulises Fischer MD Work Phone: [facility] Work Phone: 03-03-2020 influenza, high-dose , quadrivalent vaccine (FLUZONE HIGH DOSE QUADRIVALENT) Ulises Fischer MD Work Phone: [facility] 04-11-2019 pneumococcal polysaccharide vaccine, 23 valent Ulises Fischer MD Work Phone: [facility] 03-04-2019 influenza, high dose seasonal, preservative-free Ulises Fischer MD Work Phone: [facility] 06-14-2017 influenza, injectabl e, quadrivalent, contains preservative Injection Wstr Work Phone: [facility] 01-02-2013 pneumococcal polysaccharide vaccine, 23 valent Injection [facility]str Work Phone: [facility] Payers Date Payer Category Payer Self-pay [id number] 2022 Medicaid [id number] 2022 Medicaid [id number] 2012 Medicare MEDICARE MEDICAR E A AND B [id number] 2012-Present [phone] [place] [address] Medicare [id number] 2012 Medicare [id number] 2012 Private Health Insurance [employer] [id number] 2012 Unknown [id number] 2012 Medicare [id number] 2012 Unknown [id number] 2009 Unknown [facility] [id number] 2009-Present [phone] [facility] [address] [facility] [id number] 2009 Unknown [id number] Unknown [id number] Unknown [id number] Unknown [id number] Social History Date Type Detail Facility Assertion Tobacco smoking consumption unknown (finding) [id number] Work Phone: Start: 01-06-2020 End: 03-01-2022 Tobacco smoking status NHIS Never smoked tobacco [facility] Start: 01-06-2020 End: 03-01-2022 Tobacco use and exposure Smokeless tobacco non-user [facility] Start: 07-12-2021 End: 12-02-2024 Alcohol intake Ex-drinker (finding) [facility] Start: 12-23-2019 End: 03-31-2020 History SDOH Alcohol Frequency 1 [facility] Start: 03-31-2020 History SDOH Alcohol Std Drinks 98 [facility] Start: 12-23-2019 History SDOH Social Connections Phone 5 [facility] Start: 12-23-2019 History SDOH Social Connections Get Together 3 [facility] Start: 12-23-2019 End: 03-31-2020 History SDOH Social Connections Sabianism 2 [facility] Start: 12-23-2019 History SDOH Physical Activity DPW 0 [facility] Start: 12-23-2019 Education 14 [facility] Start: 1945 Sex Assigned At Female [facility] Start: 03-01-2020 End: 04-19-2022 Exposure to SARS-CoV-2 (event) Not sure [facility] Start: 10-27-2021 End: 09-12-2022 Tobacco smoking status NHIS Unknown if ever smoked [facility] Start: 03-01-2019 None [facility] Start: 03-01-2019 Alone [facility] Start: 03-28-2021 End: 01-10-2022 Exposure to SARS-CoV-2 (event) Unable to assess [facility] Start: 03-31-2020 End: 12-04-2023 History of Social function [facility] Start: 03-31-2020 End: 12-04-2023 Social connection and isolation panel [facility] Frequency of Communication with Friends and Family Not on file [facility] How often to you hav e a drink containing alcohol? Never [facility] Do you feel stress - tense, restless, nervous, or anxious, or unable to sleep at night because your mind is troubled all the time - these days [OSQ] Only a little [facility] (I/We) worried wheth er (my/our) food would run out before (I/we) got money to buy more. Never true [facility] In the past 12 month s, was there a time when you were not able to pay the mortgage or rent on time? No [facility] Start: 06-29-2019 Gender identity Identifies as female gender (finding) [facility] Start: 06-29-2019 Sexual orientation Heterosexual (finding) [facility] Medical Equipment Procedure Code Equipment Code Equipment Original Text Equipment Identifier Dates Cement Simplex P Bone Radiopaque Full Dose Sterile - [id number] Start: 11-09-2020 Cement Simplex P Bone Radiopaque Full Dose Sterile - [id number] Start: 11-09-2020 Cement Simplex P Bone Radiopaque Full Dose Sterile - [id number] Start: 11-09-2020 Cement Simplex P Tobramycin Bone Full Dose Radiopaque Preblend Sterile - [id number] Start: 02-15-2021 Cement Simplex P Tobramycin Bone Full Dose Radiopaque Preblend Sterile - [id number] Start: 02-15-2021 Cement Simplex P Tobramycin Bone Full Dose Radiopaque Preblend Sterile - [id number] Start: 02-15-2021 Cement Simplex P Tobramycin Bone Full Dose Radiopaque Preblend Sterile - [id number] Start: 02-15-2021 Cement Simplex P Tobramycin Bone Full Dose Radiopaque Preblend Sterile - [id number] Start: 02-15-2021 Band Sanchez Ancor e 37.7mm 31.7mm 29mm 73mm Annuloplasty Chordal Guide System - [id number] Start: 04-22-2019 Melrose Thk1.65mm P tfe 4x.5in Cardiovascular Sterile - [id number] Start: 04-22-2019 Augment Triathlo n C Cone Tritanium Tibial Asymmetric Revision System [id number] Start: 02-15-2021 Triathlon Centra l Femoral Cone Augment Lt 12/10 [id number] Start: 02-15-2021 Bearing Oss Uhmw pe 14mm Tibial Knee - [id number] Start: 02-15-2021 Stem Oss 16mm 15 0mm Femoral Cemented Hip Intramedullary - [id number] Start: 02-15-2021 Baseplate Oss 67 mm Tibial Modular Knee - [id number] Start: 02-15-2021 Restrictor Unive rsal Cement Disposable Permit Coordinator - [id number] Start: 02-15-2021 Restrictor Unive rsal Cement Disposable Permit Coordinator - [id number] Start: 02-15-2021 Component Oss Po rudolph 3cm Femoral Resurface Knee Left - [id number] Start: 02-15-2021 Patch Thk.5mm Wan vine Pericardial 31p98dy Cardiovascular Resilience Durable - [id number] Start: 04-22-2019 Stent Inlay Opti ma 7fr Taper [place] Polymer Phreecoat 24cm Ureteral - [id number] Start: 07-25-2019 Valve Cardiograf t 22mm Aortic Allograft Cryopreserve Adult - [id number] Start: 04-22-2019 CLIP DEVICE,RESOLUTION FDA St art: 05-06-2021 CLIP DEVICE,RESOLUTION FDA St art: 05-06-2021 CLIP DEVICE,RESOLUTION FDA St art: 05-06-2021 CLIP DEVICE,RESOLUTION FDA St art: 05-06-2021 CLIP DEVICE,RESOLUTION FDA St art: 05-06-2021 CLIP DEVICE,RESOLUTION FDA St art: 05-06-2021 CLIP DEVICE,RESOLUTION FDA St art: 05-06-2021 CLIP DEVICE,RESOLUTION FDA St art: 05-06-2021 CLIP DEVICE,RESOLUTION FDA St art: 05-06-2021 CLIP DEVICE,RESOLUTION FDA St art: 05-06-2021 CLIP DEVICE,RESOLUTION FDA St art: 05-06-2021 [id number] Advisa [id number] Start: 04-29-2019 [id number] Caps urefix Novus [id number] Start: 04-29-2019 [id number] Caps urefix Novus [id number] Start: 04-29-2019 CLIP DEVICE,RESOLUTION FDA St art: 05-06-2021 Goals Date Patient Goal Desired Activity /State Personal health goal Comment on above: Formatting of this n ote might be different from the original. To ambulate well enough she does not have to use a walker Personal health goal Personal health goal Comment on above: Formatting of this n ote might be different from the original. To ambulate well enough she does not have to use a walker Functional Status Date Assessment Result Facility 08-23-2022 Functional status With Assist of 1 [facility] Work Phone: 06-02-2022 Functional status Ambulates [facility] Work Phone: 02-17-2021 Are you deaf, or do you have serious difficulty hearing No 02/17/2021 7:00 PM EDNeeraj Willoughby, KAYLIN No [facility] 02-17-2021 Are you blind, or do you have serious difficulty seeing, even when wearing glasses No 02/17/2021 7:00 PM Neeraj Galicia RN No [facility] 02-17-2021 Do you have serious difficulty walking or climbing stairs No 02/17/2021 7:00 PM Neeraj Galicia RN No [facility] 02-17-2021 Do you have difficul ty dressing or bathing No 02/17/2021 7:00 PM EDNeeraj Willoughby RN [facility] 02-17-2021 Because of a physica l, mental, or emotional condition, do you have difficulty doing errands alone such as visiting a physician's office or shopping No 02/17/2021 7:00 PM Neeraj Galicia RN [facility] NEGATED: Highlighted row Functional performance Functional status health issues are not documented Disease [id number]-[id number]-Hkkckj Work Phone: Mental Status Date Assessment Result Facility 08-23-2022 Cognitive function Voice/Name [facility] Work Phone: 08-19-2022 Cognitive function Level Of Cons ciousness Awake;Disoriented [facility] Work Phone: 08-12-2022 Cognitive function Level Of Cons ciousness Awake;Alert;Appropriate ;Follows Commands [facility] Work Phone: 06-02-2022 Cognitive function Voice/Name [facility] Work Phone: 10-30-2021 Cognitive function Level Of Cons ciousness Awake;Alert;Appropriate ;Follows Commands [facility] Work Phone: 02-17-2021 Because of a physical, mental, or emotional condition, do you have serious difficulty concentrating, remembering, or making decisions No 02/17/2021 7:00 PM EDT Neeraj Alberto, RN No [facility] NEGATED: Highlighted row Cognitive function [Interpretation] Cognitive status health issues are not documented Disease gXL-Cqcgl-Sxhbln Work Phone: Clinical Notes 01-01-2020 to 12-16-2024 Telephone Encounter - Vijaya Omalley LPN - 12/16/2024 9:42 AM EDTTelephone Encounter - Vijaya Omalley LPN - 12/16/2024 9:42 AM EDTTelephone Encounter - Kary Bolden - 12/15/2024 12:40 PM EDT Note Date & Type Note Facility 12-16-2024 Telephone encounter Note Spoke with pts daughter Cristina , informed Dr. Caruso wants to restart her copper supplement. Contacted [facility] orders given to Alyson CARDONA to start copper supplement every Mon.Mon. and Mon. And daughter Cristina will be bringing the medication out to them. Alyson CARDONA read order back ans verified. Vijaya Omalley LPN [facility] 12-16-2024 Miscellaneous Notes Spoke with pts daughter Cristina , informed Dr. Caruso wants to restart her copper supplement. Contacted [facility] orders given to Alyson CARDONA to start copper supplement every Mon.Mon. and Mon. And daughter Cristina will be bringing the medication out to them. Alyson CARDONA read order back ans verified. Vijaya Omalley LPN I called and left a message for Coty to call our office back to receive the below message anytime after tomorrow morning 12/16/24 @ 8:00 am Kary Jacobs Her copper level is a little bit low again. Please restart copper supplement every Monday, Monday and Monday. documented in this encounter [facility] 12-15-2024 Telephone encounter Note I called and left a message for Coty to call our office back to receive the below message anytime after tomorrow morning 12/16/24 @ 8:00 am Kary Jacobs [facility] 12-15-2024 Telephone encounter Note Her copper level is a little bit low again. Please restart copper supplement every Monday, Monday and Monday. [facility] 12-02-2024 History of Presen t illness Narrative Images from the original note were not included. [facility] CLINICAL NOTE Department of Hematology and Medical Oncology PATIENT NAME: Maia Nieto [facility] NO.: [id number] ATTENDING PHYSICIAN: Raman Caruso DO DATE OF SERVICE: 12/02/2024 The patient is an 79-year-old female who has a past medical history significant for GERD, gastric bypass (akil-en-Y), peptic ulcer disease (previous GI bleed--required laparoscopic transgastric EGD demonstrating duodenal ulcer that required clipping) hypertension, nephrolithiasis, aortic stenosis (s/p aortic valve replacement in 2002; redo AVR and MRR 04/2019), bacterial endocarditis (strep spp), PPM, Parkinson's disease and chronic kidney disease. Patient was seen by her primary care physician. She had been experiencing weight loss over the last year or so. Her appetite was not as good as it was. Routine blood work was obtained and she was found to have significant anemia along with leukopenia (neutropenia and lymphopenia). Patient was referred urgently. Her other medical history is significant for GI bleed. She had presented in the summer of 2018 with a complaint of shortness of breath, fatigue and dark tarry stools. She was taking meloxicam and Advil in addition to aspirin on a daily basis at the time. She was orthostatic and hypotensive and therefore was admitted to [facility]. Hemoglobin was 6.9 g/dL. She underwent an EGD on 12/01/2018 that showed healthy-appearing gastric pouch and a colonoscopy showed in the cecum. CT scan the abdomen and pelvis done without contrast noted any millimeter stone at the ureteropelvic junction and left mild hydronephrosis. In total patient received 6 units of packed red blood cells for continued drop in hemoglobin. She had a bleeding scan that was negative. Urinalysis and culture demonstrated Klebsiella pneumonia infection. She was started on antibiotics. Echocardiogram demonstrated severe stenosis of the aortic valve. Patient was transferred to [facility] on 12/03/2018. She was continued on antibiotics (ceftriaxone). Episodes of hypotension and dizziness continued in hemoglobin dropped to 6.1 and she was given 2 more units of RBCs. A CT angiogram showed no active bleeding. Patient was then transferred to [facility] where she ultimately underwent CT angiogram that revealed an enhancing polypoid lesion in the first segment of the duodenum concerning for slowly bleeding mass. Other findings included trace left pleural effusion as well as evidence of prior cholecystectomy and gastric bypass. Ultimately patient was taken to the OR on 12/21 and underwent laparoscopic transgastric scope and clipping of a bleeding duodenal ulcer. Patient was advised to hold aspirin and continue on Protonix 40 mg twice a day at that time. Patient was readmitted to [facility] for planned redo aortic valve replacement and mitral valve replan her in April 2019. Following surgery she had been doing well but her ICU course postoperatively she developed complete heart block with ventricular rate in 30s. Ultimately she required permanent pacemaker placement on 04/29/2019. 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 She was evaluated for this and is undergoing stage replacement. She received a course of IV antibiotic therapy at [facility]. She is scheduled to have an city maintenance manager taken out and the knee replaced in mid February. Presents for ongoing hematologic management. OV 12/04/2023: Lives in [facility]. Uses wheeled walker. No falls in the last few months. Medication list does not include B12 injection or copper supplement. She offers no complaints today. Denies symptoms of sensory neuropathy. Here with her daughter. Has h/o B12 and copper deficiency. Recording using Getting-in software for draft documentation of the visit was discussed with the patient/authorized reimbursement representative; all questions welcomed and answered. Patient/authorized reimbursement representative agreed to proceed INTERIM HISTORY: Patient is a female with a history of gastric bypass surgery, currently managed with iron supplementation and folic acid for low folate levels. In July, her blood counts were stable. She reports using a walker for mobility and describes her appetite as variable, with some good and some bad days. She denies experiencing shortness of breath, nausea, or melena. She is tolerating iron supplementation well without nausea. She occasionally requires Miralax for constipation. PMH and allergies personally reviewed by me today. Any changes documented in appropriate section. MEDICATIONS: Current Outpatient Medications Medication Sig folic acid 1 mg tablet Take 1 tablet by mouth once daily. aluminum-magnesium hydroxide-simethicone (MAALOX,MYLANTA,MAG-AL PLUS) 200-200-20 mg/5 mL suspension Take 30 mL by mouth every 4 hours as needed. mirtazapine (REMERON) 15 mg tablet Take 15 mg by mouth daily at bedtime. acetaminophen (TYLENOL) 650 mg suppository 650 mg by RECTAL route every 4 hours as needed. aspirin 81 mg cap Take 1 capsule by mouth once daily. bisacodyl (DULCOLAX) 10 mg supp 10 mg by RECTAL route once daily as needed for constipation. docusate sodium (COLACE) 100 mg capsule Take 100 mg by mouth as needed for constipation. sodium phosphate,mono-dibasic (FLEET ENEMA RECTAL) 1 Dose by RECTAL route. PRN 2x per episode glucagon (GLUCAGON EMERGENCY KIT, HUMAN,) 1 mg injection Inject 1 mg subcutaneously as needed. dextrose (GLUCOSE GEL ORAL) Take 1 Dose by mouth as needed. guaiFENesin (ROBITUSSIN) 100 mg/5 mL syrup Take 10 mL by mouth every 4 hours as needed. loperamide HCl (IMODIUM) 2 mg tab Take 2 mg by mouth two times a week. Mon and Mon melatonin 3 mg tablet Take 3 mg by mouth daily at bedtime. acetaminophen 325 mg cap Take 650 mg by mouth every 4 hours as needed. donepezil (ARICEPT) 5 mg tablet Take 10 mg by mouth daily at bedtime. furosemide (LASIX) 20 mg tablet Take 20 mg by mouth once daily. magnesium hydroxide (MILK OF MAGNESIA ORAL) Take 30 mL by mouth as needed. PRN multivitamin (MULTIPLE VITAMIN ORAL) Take 1 tablet by mouth once daily. pantoprazole DR (PROTONIX) 40 mg tablet Take 1 tablet by mouth twice daily before meals (0600/1600). carbidopa-levodopa CR (SINEMET CR) 25-100 mg per tablet Take 1 tablet by mouth twice daily. potassium chloride (K-TAB) 10 mEq tablet Take 1 tablet by mouth once daily. Take with lasix traZODone (DESYREL) 100 mg tablet Take 75 mg by mouth daily at bedtime. ferrous sulfate 325 mg (65 mg iron) tablet Take 1 tablet by mouth daily with breakfast. atorvastatin (LIPITOR) 10 mg tablet Take 1 tablet by mouth once daily Cholecalciferol, Vitamin D3, 50 mcg (2,000 unit) cap Take 1 capsule by mouth once daily. ascorbic acid, vitamin C, (VITAMIN C) 500 mg tablet Take 500 mg by mouth once daily. HYDROcodone-acetaminophen (NORCO) 5-325 mg per tablet Take 1 tablet by mouth every 12 hours. losartan (COZAAR) 25 mg tablet Take 50 mg by mouth once daily. No current facility-administered medications for this visit. REVIEW OF SYSTEMS: Constitutional: (+) decreased appetite Respiratory: (-) shortness of breath Gastrointestinal: (+) constipation, (-) nausea, (-) melena, (-) hematochezia PHYSICAL EXAM: Vitals: Blood pressure 116/74, pulse 79, temperature 36.2 C (97.2 F), weight 51.7 kg (114 lb), SpO2 98%. Well-appearing and in no acute distress. EYES: Sclerae are anicteric bilaterally. CARDIOVASCULAR: Rhythm is regular. ABDOMEN: The abdomen is nondistended. Extremities: No swelling or edema. SKIN: No jaundice. 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 Assessment: -In summary the patient is an 79-year-old female who has a complex past medical history but significant for Akil-en-Y gastric bypass about 32 years ago and then was treated for bleeding duodenal ulcer summer 2018. She'd been observed to have declining serum B-12 levels over the 9 months prior to presentation here. She had macrocytic anemia, evidence of anemia of chronic disease as well as possible underlying iron deficiency. Lab work confirmed iron deficiency and she was also found to be deficient on copper. -Copper was discontinued. - Not receiving B12 supplementation. - Unfortunately, both our chemistry analyzer and culture count are down today. No results to review with patient or daughter. Explained we will contact her daughter once results are known. Add iron studies. Continue monitoring every 6 months. If low on B12 and/or copper we will have to make it explicitly clear with the [facility] staff she needs those supplementations. Plan: -Follow-up on lab results later today or tomorrow when available. -CBC, BMP, iron, B12, serum folate, and copper level in about 6 months. I spent a total of 15 minutes on the date of the service which included preparing to see the patient, [id number] patient care, completing clinical documentation, performing a medically appropriate examination, counseling and educating the patient/family/caregiver, ordering medications, tests, or procedures, communicating with other HCPs (not separately reported), and communicating results to the patient/family/caregiver. Raman Caruso DO cc: Clau Baca MD documented in this encounter [facility] 08-07-2024 Telephone encounter Note Faxed as requested. Kira Shirley LPN [facility] 08-07-2024 Miscellaneous Notes Faxed as requested. Kira Shirley LPN April from [facility] is requesting we fax recent lab and office visit note to [phone] documented in this encounter [facility] 08-07-2024 Telephone encounter Note April from [facility] is requesting we fax recent lab and office visit note to [phone] [facility] Work Phone: 08-02-2024 Telephone encounter Note I spoke with patient's nurse, Mattie, at [facility] and gave her orders for folic acid. Left message for patient's daughter as well. Kira Shirley LPN [facility] 08-02-2024 Miscellaneous Notes I spoke with patient's nurse, Mattie, at [facility] and gave her orders for folic acid. Left message for patient's daughter as well. Kira Shirley LPN Patient's daughter called stating the patient lives in [facility] and is asking if we are able to send the information to them. Please call daughter Cristina [phone] to advise. Genie Wood MyChart message sent. I also left a message fro her to contact the office. Kira Shirley LPN Folate low. Start Rx folic acid. Raman Caruso DO documented in this encounter [facility] 08-02-2024 Telephone encounter Note Patient's daughter called stating the patient lives in [facility] and is asking if we are able to send the information to them. Please call daughter Cristina [phone] to advise. Genie Wood [facility] 08-02-2024 Telephone encounter Note Protonet message sent. I also left a message fro her to contact the office. Kira Shirley LPN [facility] 08-01-2024 Telephone encounter Note Folate low. Start Rx folic acid. Raman Caruso DO [facility] 07-30-2024 Telephone encounter Note Faxed requested labs, some labs are still in process. Madelaine Campoverde LPN July 30, 2024 11:58 AM [facility] 07-30-2024 Miscellaneous Notes Faxed requested labs, some labs are still in process. Madelaine Campoverde LPN July 30, 2024 11:58 AM Alyson from [facility] would like the labs the Pt had done yesterday faxed over to fax # [phone], when all the results are back. documented in this encounter [facility] 02-25-2025 Telephone encounter Note Alyson from [facility] would like the labs the Pt had done yesterday faxed over to fax # [phone], when all the results are back. [facility] 06-03-2024 History of Presen t illness Narrative Unable to obtain IV access after 6 attempts by 3 RN's. Patient came in with a skin tear dressing to her left forearm area as well. Spoke to Vivi Cooley CNP who stated to have patient come in for her appointment as scheduled and if unable to access that day can reassess plan with . documented in this encounter [facility] 05-28-2024 History of Presen t illness Narrative Pt's daughter chairside. Daughter attempted to pull pt's sweater up on L arm which created a skin tear. Site was approx 3 inches in length, did not bleed upon assessment. This nurse used sterile gauze and coban and wrapped the area. Advised pt and daughter to let staff know at the [facility] so they are able to monitor site. Daughter stated understanding. documented in this encounter [facility] 05-21-2024 History of Presen t illness Narrative HPI: The patient is an 79-year-old female who has a past medical history significant for GERD, gastric bypass (akil-en-Y), peptic ulcer disease (previous GI bleed--required laparoscopic transgastric EGD demonstrating duodenal ulcer that required clipping) hypertension, nephrolithiasis, aortic stenosis (s/p aortic valve replacement in 2002; redo AVR and MRR 04/2019), bacterial endocarditis (strep spp), PPM, Parkinson's disease and chronic kidney disease. Patient was seen by her primary care physician. She had been experiencing weight loss over the last year or so. Her appetite was not as good as it was. Routine blood work was obtained and she was found to have significant anemia along with leukopenia (neutropenia and lymphopenia). Patient was referred urgently. Her other medical history is significant for GI bleed. She had presented in the summer of 2018 with a complaint of shortness of breath, fatigue and dark tarry stools. She was taking meloxicam and Advil in addition to aspirin on a daily basis at the time. She was orthostatic and hypotensive and therefore was admitted to [facility]. Hemoglobin was 6.9 g/dL. She underwent an EGD on 12/01/2018 that showed healthy-appearing gastric pouch and a colonoscopy showed in the cecum. CT scan the abdomen and pelvis done without contrast noted any millimeter stone at the ureteropelvic junction and left mild hydronephrosis. In total patient received 6 units of packed red blood cells for continued drop in hemoglobin. She had a bleeding scan that was negative. Urinalysis and culture demonstrated Klebsiella pneumonia infection. She was started on antibiotics. Echocardiogram demonstrated severe stenosis of the aortic valve. Patient was transferred to [facility] on 12/03/2018. She was continued on antibiotics (ceftriaxone). Episodes of hypotension and dizziness continued in hemoglobin dropped to 6.1 and she was given 2 more units of RBCs. A CT angiogram showed no active bleeding. Patient was then transferred to [facility] where she ultimately underwent CT angiogram that revealed an enhancing polypoid lesion in the first segment of the duodenum concerning for slowly bleeding mass. Other findings included trace left pleural effusion as well as evidence of prior cholecystectomy and gastric bypass. Ultimately patient was taken to the OR on 12/21 and underwent laparoscopic transgastric scope and clipping of a bleeding duodenal ulcer. Patient was advised to hold aspirin and continue on Protonix 40 mg twice a day at that time. Patient was readmitted to [facility] for planned redo aortic valve replacement and mitral valve replan her in April 2019. Following surgery she had been doing well but her ICU course postoperatively she developed complete heart block with ventricular rate in 30s. Ultimately she required permanent pacemaker placement on 04/29/2019. 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 She was evaluated for this and is undergoing stage replacement. She received a course of IV antibiotic therapy at [facility]. She is scheduled to have an city maintenance manager taken out and the knee replaced in mid February. Presents for ongoing hematologic management. OV 12/04/2023: Lives in [facility]. Uses wheeled walker. No falls in the last few months. Medication list does not include B12 injection or copper supplement. She offers no complaints today. Denies symptoms of sensory neuropathy. Here with her daughter. Has h/o B12 and copper deficiency. Presents for ongoing hematologic management. Interim history: Very fatigued. Not short of breath. PMH, medications and allergies personally reviewed by me today. Any changes documented in appropriate section. ROS: Constitutional: Denies episodes of fever and night sweats. Neuro: Denies RAMIREZ, vertigo, dizziness. HEENT: No recent change in voice, vision or hearing. Resp: Denies cough, wheeze and hemoptysis. Denies shortness of breath at rest. CVS: Denies exertional chest pain, PND, orthopnea and LE edema. GI: Denies dysphagia and odynophagia. Denies reflux, n/v and abdominal pain. : Denies dysuria or gross hematuria. Endo: Denies hot flashes. Denies polyuria and polydipsia. Denies heat and cold intolerance. Musculoskeletal: Chronic b/l knee pain. Derm: Denies rash. Denies jaundice and diffuse pruritis. Heme: Denies unusual bleeding and unexplained bruising. Psych: Normal mood. PHYSICAL EXAM: Vitals: Blood pressure 113/73, pulse 73, temperature 36.4 C (97.5 F), temperature source Temporal, weight 53.5 kg (118 lb), SpO2 99%. Thin-appearing and in no acute distress. EYES: Sclerae are anicteric bilaterally. RESPIRATORY: Inspiratory breath sounds are of normal intensity in all barbosa. CARDIOVASCULAR: Rhythm is regular. ABDOMEN: The abdomen is nondistended. Extremities: No swelling or edema. SKIN: No jaundice. LABS: ASSESSMENT/PLAN: (N18.32, D63.1) Anemia due to stage 3b chronic kidney disease (HCC) (HCC) (primary encounter diagnosis) (Z98.84) History of gastric bypass (K90.9) Iron malabsorption Assessment: -In summary the patient is an 79-year-old female who has a complex past medical history but significant for Akil-en-Y gastric bypass about 31 years ago and then was treated for bleeding duodenal ulcer summer 2018. She'd been observed to have declining serum B-12 levels over the 9 months prior to presentation here. She had macrocytic anemia, evidence of anemia of chronic disease as well as possible underlying iron deficiency. Lab work confirmed iron deficiency and she was also found to be deficient on copper. -Not clear that she has been receiving B12 injections or copper supplementation. residential again did not send medication list today. -Reviewed labs. Worsening anemia. Iron although normal is low enough to meet requirements for parenteral iron replacement given her degree of renal dysfunction. Plan: -5 doses of iron sucrose. -Oketo orders filed. -My office staff is obtaining medication record from [facility]. Will review. -Recheck CBC, CMP, iron, B12, serum folate, TSH and copper level in about 2 months. Portions of this documentation were copied and pasted from my previous office visit note dated 12/04/2023 in order to provide a cohesive continuity of the history. The note has been reviewed and edited and updated as necessary. Raman Caruso DO documented in this encounter [facility] 12-17-2023 Telephone encounter Note I called and spoke to Cristina and let her know the below information and scheduled Coty for lab work and then office visit in May,, she confirmed these dates and times Cristina was questioning Coty's copper level, I told her it was at 99 and that was within the normal range. She stated that if did not have any concerns, there was no reason to contact her back about it Kayr Jacobs [facility] 12-17-2023 Miscellaneous Notes I called and spoke to Cristina and let her know the below information and scheduled Coty for lab work and then office visit in May,, she confirmed these dates and times Cristina was questioning Coty's copper level, I told her it was at 99 and that was within the normal range. She stated that if did not have any concerns, there was no reason to contact her back about it Kary Belles Pss Can let her daughter know that the additional lab work did not suggest another cause of the anemia other than possibly her chronic kidney disease. At this time, she does not meet requirements for intravenous iron replacement. Recommend recheck CBC/BMP/iron studies then office visit in about 6 months. Raman Caruso DO documented in this encounter [facility] 12-17-2023 Telephone encounter Note Can let her daughter know that the additional lab work did not suggest another cause of the anemia other than possibly her chronic kidney disease. At this time, she does not meet requirements for intravenous iron replacement. Recommend recheck CBC/BMP/iron studies then office visit in about 6 months. Raman Caruso DO [facility] 12-04-2023 History of Presen t illness Narrative Hematologic problem(s): 1) Anemia from iron and copper deficiency. HPI: The patient is an 78-year-old female who has a past medical history significant for GERD, gastric bypass (akil-en-Y), peptic ulcer disease (previous GI bleed--required laparoscopic transgastric EGD demonstrating duodenal ulcer that required clipping) hypertension, nephrolithiasis, aortic stenosis (s/p aortic valve replacement in 2002; redo AVR and MRR 04/2019), bacterial endocarditis (strep spp), PPM, Parkinson's disease and chronic kidney disease. Patient was seen by her primary care physician. She had been experiencing weight loss over the last year or so. Her appetite was not as good as it was. Routine blood work was obtained and she was found to have significant anemia along with leukopenia (neutropenia and lymphopenia). Patient was referred urgently. Her other medical history is significant for GI bleed. She had presented in the summer of 2018 with a complaint of shortness of breath, fatigue and dark tarry stools. She was taking meloxicam and Advil in addition to aspirin on a daily basis at the time. She was orthostatic and hypotensive and therefore was admitted to [facility]. Hemoglobin was 6.9 g/dL. She underwent an EGD on 12/01/2018 that showed healthy-appearing gastric pouch and a colonoscopy showed in the cecum. CT scan the abdomen and pelvis done without contrast noted any millimeter stone at the ureteropelvic junction and left mild hydronephrosis. In total patient received 6 units of packed red blood cells for continued drop in hemoglobin. She had a bleeding scan that was negative. Urinalysis and culture demonstrated Klebsiella pneumonia infection. She was started on antibiotics. Echocardiogram demonstrated severe stenosis of the aortic valve. Patient was transferred to [facility] on 12/03/2018. She was continued on antibiotics (ceftriaxone). Episodes of hypotension and dizziness continued in hemoglobin dropped to 6.1 and she was given 2 more units of RBCs. A CT angiogram showed no active bleeding. Patient was then transferred to [facility] where she ultimately underwent CT angiogram that revealed an enhancing polypoid lesion in the first segment of the duodenum concerning for slowly bleeding mass. Other findings included trace left pleural effusion as well as evidence of prior cholecystectomy and gastric bypass. Ultimately patient was taken to the OR on 12/21 and underwent laparoscopic transgastric scope and clipping of a bleeding duodenal ulcer. Patient was advised to hold aspirin and continue on Protonix 40 mg twice a day at that time. Patient was readmitted to [facility] for planned redo aortic valve replacement and mitral valve replan her in April 2019. Following surgery she had been doing well but her ICU course postoperatively she developed complete heart block with ventricular rate in 30s. Ultimately she required permanent pacemaker placement on 04/29/2019. 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 She was evaluated for this and is undergoing stage replacement. She received a course of IV antibiotic therapy at [facility]. She is scheduled to have an city maintenance manager taken out and the knee replaced in mid February. Presents for ongoing hematologic management. Interim history: Lives in [facility]. Uses wheeled walker. No falls in the last few months. Medication list does not include B12 injection or's copper supplement. She offers no complaints today. Denies symptoms of sensory neuropathy. Here with her daughter. PMH, medications and allergies personally reviewed by me today. Any changes documented in appropriate section. ROS: Constitutional: Denies episodes of fever and night sweats. Neuro: Denies RAMIREZ, vertigo, dizziness. HEENT: No recent change in voice, vision or hearing. Resp: Denies cough, wheeze and hemoptysis. Denies shortness of breath at rest. CVS: Denies exertional chest pain, PND, orthopnea and LE edema. GI: Denies dysgeusia. Denies symptoms of stomatitis. Denies dysphagia and odynophagia. Denies reflux, n/v and abdominal pain. : Denies dysuria or gross hematuria. Endo: Denies hot flashes. Denies polyuria and polydipsia. Denies heat and cold intolerance. Musculoskeletal: Chronic b/l knee pain. Derm: Denies rash. Denies jaundice and diffuse pruritis. Heme: Denies unusual bleeding and unexplained bruising. Psych: Normal mood. PHYSICAL EXAM: Vitals: Blood pressure 103/69, pulse 84, temperature 36.3 C (97.4 F), temperature source Temporal, height 160 cm (5' 3"), weight 57.2 kg (126 lb), SpO2 98%. Thin-appearing and in no acute distress. EYES: Sclerae are anicteric bilaterally. LYMPHATIC: There is no palpable cervical or supraclavicular adenopathy. RESPIRATORY: Inspiratory breath sounds are of normal intensity in all barbosa. CARDIOVASCULAR: Rhythm is regular. ABDOMEN: The abdomen is nondistended. Extremities: No swelling or edema. SKIN: No jaundice. LABS: ASSESSMENT/PLAN: (D61.818) Other pancytopenia (HCC) (primary encounter diagnosis) (D53.1) Megaloblastic anemia due to vitamin B12 deficiency Copper deficiency. Assessment: -In summary the patient is an 78-year-old female who has a complex past medical history but significantly underwent Akil-en-Y gastric bypass about 30 years ago and then was treated for bleeding duodenal ulcer summer 2018. She'd been observed to have declining serum B-12 levels over the past 9 months prior to presentation here. She had macrocytic anemia, evidence of anemia of chronic disease as well as possible underlying iron deficiency. Lab work confirmed iron deficiency and she was also found to be deficient on copper. -No labs ordered for today prior to visit. -Not clear that she has been receiving B12 injections or copper supplementation. Plan: -Check CBC, B12, MMA, iron studies. We will contact her daughter with results. -CBC/CMP/iron studies/B12 level/copper level in about 12 months. Portions of this documentation were copied and pasted from previous office visit notes in order to provide a cohesive continuity of the history. The note has been reviewed and edited and updated as necessary. I spent a total of 15 minutes on the date of the service which included preparing to see the patient, [id number] patient care, completing clinical documentation, obtaining and/or reviewing separately obtained history, performing a medically appropriate examination, counseling and educating the patient/family/caregiver, ordering medications, tests, or procedures, communicating with other HCPs (not separately reported), and communicating results to the patient/family/caregiver. Raman Caruso DO documented in this encounter [facility] 01-11-2023 History of Presen t illness Narrative CANDIDO Telephonic Outreach Provider Alessio/ROSEMARY \\ CANDIDOM: CKD Spk with daughter Reyna she noted Audra is at [facility] for long-term care. Daughter is aware will discontinue Care Coordination services. Contacted for: Engagement Contact made with patient: Yes Patient identified by name and date of . Discussed care with daughter Outcomes: Pt now resides in [facility] Are you experiencing any new or worsening symptoms you need to talk about today? No Based on zone manager, the following disposition is advised: No symptoms or symptoms present, not severe. Routed to: No Action Needed MICHELE Education Provided this Outreach: No Carmelo Leavitt RN January 11, 2023 4:18 PM POOL Telephonic Outreach Provider Alessio/ROSEMARY Called Pt to verify symptom status and needs and to provide My Chart 'Home Monitoring questionnaire location, line was busy, unable to leave a message Contacted for: Engagement Contact made with patient: No, unable to leave message. Will reattempt call Carmelo Leavitt RN January 05, 2023 4:59 PM documented in this encounter [facility] 12-12-2022 Miscellaneous Notes Check out comments: - B12/iron studies/copper levels today. - Continue copper supplement pending today's labs. - Continue Vit. B12 inj. monthly pending today's labs. - CBC/B12 injections per [facility] facility. - Follow up with Dr. Caruso in one year. - Pt. aware to call office with any questions/concerns. documented in this encounter [facility] 12-12-2022 History of Presen t illness Narrative Chief Complaint Patient presents with: Established Patient HPI: Maia Nieto is a 77 year old female who presents here today for follow up anemia. Per Dr. aCruso's previous note: H/o GERD, gastric bypass (akil-en-Y), peptic ulcer disease (previous GI bleed--required laparoscopic transgastric EGD demonstrating duodenal ulcer that required clipping) hypertension, nephrolithiasis, aortic stenosis (s/p aortic valve replacement in 2002; redo AVR and MRR 04/2019), bacterial endocarditis (strep spp), PPM, Parkinson's disease and chronic kidney disease. Patient was seen by her primary care physician. She had been experiencing weight loss over the last year or so. Her appetite was not as good as it was. Routine blood work was obtained and she was found to have significant anemia along with leukopenia (neutropenia and lymphopenia). Patient was referred urgently. Her other medical history is significant for GI bleed. She had presented in the summer of 2018 with a complaint of shortness of breath, fatigue and dark tarry stools. She was taking meloxicam and Advil in addition to aspirin on a daily basis at the time. She was orthostatic and hypotensive and therefore was admitted to [facility]. Hemoglobin was 6.9 g/dL. She underwent an EGD on 12/01/2018 that showed healthy-appearing gastric pouch and a colonoscopy showed in the cecum. CT scan the abdomen and pelvis done without contrast noted any millimeter stone at the ureteropelvic junction and left mild hydronephrosis. In total patient received 6 units of packed red blood cells for continued drop in hemoglobin. She had a bleeding scan that was negative. Urinalysis and culture demonstrated Klebsiella pneumonia infection. She was started on antibiotics. Echocardiogram demonstrated severe stenosis of the aortic valve. Patient was transferred to [facility] on 12/03/2018. She was continued on antibiotics (ceftriaxone). Episodes of hypotension and dizziness continued in hemoglobin dropped to 6.1 and she was given 2 more units of RBCs. A CT angiogram showed no active bleeding. Patient was then transferred to [facility] where she ultimately underwent CT angiogram that revealed an enhancing polypoid lesion in the first segment of the duodenum concerning for slowly bleeding mass. Other findings included trace left pleural effusion as well as evidence of prior cholecystectomy and gastric bypass. Ultimately patient was taken to the OR on 12/21 and underwent laparoscopic transgastric scope and clipping of a bleeding duodenal ulcer. Patient was advised to hold aspirin and continue on Protonix 40 mg twice a day at that time. Patient was readmitted to [facility] for planned redo aortic valve replacement and mitral valve replan her in April 2019. Following surgery she had been doing well but her ICU course postoperatively she developed complete heart block with ventricular rate in 30s. Ultimately she required permanent pacemaker placement on 04/29/2019. 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 She was evaluated for this and is undergoing stage replacement. She received a course of IV antibiotic therapy at [facility]. She is scheduled to have an city maintenance manager taken out and the knee replaced in mid February. Pt. now resides in [facility] facility for the past 4 months. Was hospitalized for UTI 4 months ago. Pt. here today with her daughter. Appetite:"Good." Wt. up from one year ago. 8# Energy level:"Alright." Denies fevers. Resp:denies cough or sob Cardiac:denies chest pain/palpitations GI:denies abd pain, n/v, moving bowels regularly :denies dysuria/hematuria Extrem:denies pain Neuro:occ. tingling to fingers/toes Skin:denies rashes Heme:denies bleeding The ROS is otherwise negative. Past medical history, appointments, medications, allergies reviewed. No changes. EXAM: BP 124/60 Pulse 75 Temp 36.4 C (97.6 F) Ht 160 cm (5' 2.99") Wt 64.4 kg (142 lb) SpO2 99% BMI 25.16 kg/m APPEARANCE Well appearing, alert, in no acute distress, well-hydrated, well nourished. HEART RRR with normal S1 and S2, no murmurs LUNG clear to auscultation LYMPH NODES No cervical lymphadenopathy, No supraclavicular lymphadenopathy, and No axillary lymphadenopathy. ABDOMEN bowel sounds normoactive, soft, non-tender EXTREMITIES No edema NEURO Awake, alert and oriented x 3, Normal gait, and No involuntary motions. SKIN Skin color, texture, turgor normal, no suspicious rashes or lesions LABS: Component Latest Ref Rng & Units 08/09/2022 09/06/2022 10/04/2022 11/23/2022 WBC 3.70 - 11.00 k/uL 5.60 5.94 6.61 5.72 RBC 3.90 - 5.20 m/uL 3.62 (L) 2.65 (L) 3.16 (L) 3.46 (L) Hemoglobin 11.5 - 15.5 g/dL 12.3 8.9 (L) 10.5 (L) 11.1 (L) Hematocrit 36.0 - 46.0 % 35.7 (L) 28.3 (L) 33.3 (L) 35.5 (L) MCV 80.0 - 100.0 fL 98.6 106.8 (H) 105.4 (H) 102.6 (H) MCH 26.0 - 34.0 pg 34.0 33.6 33.2 32.1 MCHC 30.5 - 36.0 g/dL 34.5 31.4 31.5 31.3 RDW-CV 11.5 - 15.0 % 12.6 12.7 12.3 11.9 Platelet Count 150 - 400 k/uL 170 196 149 (L) 175 MPV 9.0 - 12.7 fL 10.6 9.2 10.7 10.9 Neut% % 60.9 66.2 71.7 71.0 Abs Neut (ANC) 1.45 - 7.50 k/uL 3.41 3.93 4.74 4.06 Lymph% % 27.5 18.5 13.5 17.0 Abs Lymph 1.00 - 4.00 k/uL 1.54 1.10 0.89 (L) 0.97 (L) [place]% % 8.6 8.6 9.8 7.7 Abs [place] <0.87 k/uL 0.48 0.51 0.65 0.44 Eosin% % 1.8 5.2 3.9 3.5 Abs Eosin <0.46 k/uL 0.10 0.31 0.26 0.20 Baso% % 0.7 0.7 0.6 0.5 Abs Baso <0.11 k/uL 0.04 0.04 0.04 0.03 Immature Gran % % 0.5 0.8 0.5 0.3 IMMATURE GRANS (ABS) <0.10 k/uL 0.03 0.05 0.03 <0.03 NRBC /100 WBC 0.0 0.0 0.0 0.0 Absolute nRBC <0.01 k/uL <0.01 <0.01 <0.01 <0.01 DTYPE Auto Auto Auto Auto ASSESSMENT/PLAN: 1. Megaloblastic anemia due to vitamin B12 deficiency - ICD9: 281.1, ICD10: D53.1 (primary diagnosis) 2. Iron 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 - ICD9: 280.1, ICD10: D50.8 Pt. has a complex past medical history but significantly underwent Akil-en-Y gastric bypass about 26-27 years ago and then was treated for bleeding duodenal ulcer summer 2018. She'd been observed to have declining serum B-12 levels over the past 9 months prior to presentation here. She had macrocytic anemia, evidence of anemia of chronic disease as well as possible underlying iron deficiency. Lab work confirmed iron deficiency and she was also found to be deficient on copper. - No concerning findings on exam. - Reviewed CBC with pt. and daughter. - Tolerating copper supplement and monthly B12 well. - B12/iron studies/copper levels today. - Continue copper supplement pending today's labs. - Continue Vit. B12 inj. monthly pending today's labs. - CBC/B12 injections per [facility] facility. - Follow up with Dr. Caruso in one year. - Pt. aware to call office with any questions/concerns. The patient indicates understanding of these issues and agrees with the plan. All documentation from previous visit of 12/28/21-Dr. Caruso was copied and pasted, documentation has been reviewed and edited as necessary for today's visit. Penny Quinteros APRN.CONFLICTS ANALYST documented in this encounter [facility] 11-23-2022 History of Presen t illness Narrative Ortho Knee Follow Up Note Narrative Referring Provider: Anatoly Brown [address] [facility] [id number] PCP: Clau Baca MD IMPRESSION/PLAN: 77 year old s/p two-stage revision left knee completed on 02/15/2021. Recent Surgeries this specialty 02/15/2021 (1yr, 9mo) ARTHROPLASTY KNEE CONDYLE AND PLATEAU MEDIAL AND LATERAL COMPARTMENTS W/O PATELLA RESURFACING (Left) Anatoly Brown DO; Fei Dawkins MD - Posted 11/09/2020 (2yr) REMOVAL PROSTHESIS JOINT KNEE; INSERT NON-BIODEGRADABLE DRUG DELIVERY IMPLANT LOWER EXTREMITY (Left; Left) Anatoly Brown DO; Jesus Manuel Jha DO; Viraj Rubio DO - Posted PAIN EVALUATION 11/23/2022 1512 Pain Level: 5 Pain Location: Knee-Left Description: Stiffness;Aching Duration Amount of Time: 3 Duration Units: Months Frequency: Intermittent Intervention/Comfort measure: Medication IMPRESSION: Patient is currently with her daughter. Patient describes some increased achiness to the left knee especially with increased activity/bearing weight. Patient's daughter states that patient's symptoms seemed to increase after patient was placed in a [facility] approximately 3 months ago. Daughter states that patient's cognitive function has declined slightly, although patient is alert and oriented x3 during office visit and follows commands appropriately. No recent falls or injuries. Patient denies fevers, shakes, chills. Denies erythema or warmth to left knee. Patient's most recent visit with Dr. Anatoly Brown was approximately 1 year ago patient did experience a fall with some increased pain in the left knee. Patient did have increased inflammatory markers, but it was soon discovered that patient was undergoing treatment for UTI during that specific blood draw. Inflammatory markers were redrawn after her UTI cleared showing normal markers. On examination, no erythema or warmth or swelling to left knee joint. Well-healed surgical incision. Generalized mild tenderness palpation. No pain as I passively extend/flex the left knee joint. No pain out of proportion with active range of motion of the left knee joint. Extensor mechanism is intact with approximately 15 degrees of correctable extension lag. No laxity appreciated in varus/valgus or anterior/posterior stress. Motors toes and foot appropriately. Neurovascularly intact. X-ray imaging of the left knee demonstrates revision implants with tibial and femoral cones. I do not see any stem subsidence of the femoral tibial stem. Poly is in place/intact. No evidence of acute fracture. No osteolysis or antonio-implant lucencies. 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 I do have a low clinical concern for P JI, but given patient's history, will rule out infection with inflammatory markers and CBC. If elevated, we will continue with left knee joint aspiration. If negative, continue current treatment plan including staying mobile and water therapy if possible. Addendum 11/24/22: WBC 5.72 ESR 27 CRP <0.3 Low concern for infection. Will continue with therapy and conservative treatments. PLAN: See above Patient Reassurance: Patient reassured and supported. All questions answered. 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 Urge Incontinence Hyperactivity of Bladder Anxiety Gerd (Gastroesophageal Reflux Disease) Overactive Bladder Coronary Artery Disease Involving [place] Coronary Artery of [place] Heart Without Angina Pectoris Restless Legs Syndrome Stage 3 Chronic Kidney Disease (Hcc) S/P Avr Prosthetic Aortic Valve Stenosis GI Bleed Nonrheumatic Aortic Valve Insufficiency History of Endocarditis Other Specified Anemias Stress Hyperglycemia Complete Heart Block (Hcc) Nonrheumatic Mitral Valve Regurgitation Memory Deficit 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 Post-operative recovery was complicated by uneventful/none. Readmission(s) since surgery (90 days post)? No ED Visits & Hospitalizations - Last 180 days None Patient rates their condition as worsening. Does the patient still experience pain? see MIDAS Form Post Op discharge patient location: at an outpatient facility. Functional Assessment is as follows: completed outpatient PT. Functional difficulties: Stair climbing and Arising from chair. Pain Medication: Non-narcotic Currently Ambulating with: a walker = EXAM: POST OP KNEE = Left Post-Operative Knee Ambulates with a: requiring assistive device: walker. SKIN: Appropriate postop appearance, No evidence of erythema, warmth, discharge or drainage, and Incision clean/dry/intact. Range of motion is 15 degrees in extension and 100 degrees of flexion. Extension La Pain with ROM:No There is None effusion. Mal-alignment: No Tender to the palpation of generalized tenderness Neurovascular Status: Sensation Intact, Moves foot and ankle up & down, Moves toes up and down, 2+ dorsalis pedis, and 2+ posterial tibial Stability:Anterior/Posterior- Yes, stable and Varus/Valgus- Yes, stable Quad strength: weak Imagin. See above Provider: Jeferson Thomas PA-C Completed by: Jeferson Thomas PA-C documented in this encounter [facility] 11-23-2022 History of Presen t illness Narrative Radiology Service Progress Note PATIENT NAME: Maia Nieto DATE OF SERVICE: November 23, 2022 TIME: 3:10 PM PATIENT IDENTITY VERIFICATION COMPLETED USING TWO (2) IDENTIFIERS: Name and Date of confirmed by patient verbally. FALL SCREENING: Has the patient had 2 falls in the last year or 1 fall with injury or currently using an Ambulatory Assistive Device (Walker, Cane, Wheelchair, Crutches, etc.)? No PATIENT GENDER DATA: Female. status: : No status: NO. PATIENT RELEVANT IMPLANT DATA REVIEWED: Not Applicable RADIOLOGY DEPARTMENT: General X-ray: Exam(s) Completed: Lower Extremity X-Ray(s): Knee, AP / Lat / Merchant Left and Wt. Bearing PERIPHERAL IV DATA: Not applicable SIGNED BY: RT Nomi(R) November 23, 2022 3:10 PM documented in this encounter [facility] 11-04-2022 Miscellaneous Notes MC MESSAGE READ 2nd attempt: VM left requesting pt call office to confirm apt change Summary: RESCHEDULE 1st attempt: MC sent. Please document in this encounter when pt calls to confirm documented in this encounter [facility] 10-05-2022 Miscellaneous Notes Scheduled December office visit with Reyna. Labs and B12 injections canceled. Patient's daughter aware of plan of care. PSS- please contact patient's daughter Reyna to schedule OV with Dr. Caruso in December. I spoke with patient's nurse, Regina, and informed her Dr. Silva would need to order monthly CBC and B12 injections. Kira Shirley LPN I recommend the physician at the [facility] order the CBC and B12 injections and I can see her for office visit in December. Raman Caruso DO Pt. Is now a resident at [facility], family wondering if pt. Can get monthly b-12 injections , CBC/ B-12 labs ,at [facility], then have F/U visit with Dr. Caruso in December ? Checked with nursing at [facility] and they are able to do injections and labs with orders. Informed Cristina(daughtera)I would contact her with further info. Vijaya Huntley LPN documented in this encounter [facility] 10-04-2022 Miscellaneous Notes Addended by: VIJAYA HUNTLEY on: 10/04/2022 11:44 AM Modules accepted: Orders documented in this encounter [facility] 10-04-2022 Nurse Note Patient presents with: Imm/Inj Pt is identified by name and birthdate: Yes. Allergies and medications reviewed. Latex allergy? No. Does this patient have: Unplanned weight loss or gain of greater than 10 pounds, or a change of appetite over the last year? No Does the patient have any concerns about safety in the home/falls? At risk due to: imbalance Has the patient fallen in the past year? No Does the patient have difficulty performing or completing routine daily living activities? No Does this patient have concerns about personal safety? No Is patient having pain? Pain: No=0 (pain 0 on a scale of 0-10). Health Maintenance: Reviewed and updated. Does patient have MyChart access or Caregiver proxy: yes Pt/Caregiver willingness and readiness to learn assessed: Yes. Barriers: none cyanocobalamin injection administered, right Deltoid, tolerated well, no immediate adverse reactions noted. Vijaya Huntley LPN documented in this encounter [facility] 09-13-2022 Evaluation note Diagnosis Onset Date Debility acute Generalized weakness acute Acute hypotension resolved Acute prerenal azotemia reso lved Acute renal failure superimp osed on stage 3a chronic kidney disease resolved Decreased oral intake resolv ed Hypokalemia resolved Melena resolved Acute hypokalemia resolved Acute hyponatremia resolved Confusion resolved Weakness resolved [facility] Work Phone: 1(592) 456-820304-10-2023 Evaluation note* Diagnosis Onset Date Resolution Status Debility acute Generalized weakness acute Acute hypotension resolved Acute prerenal azotemia reso lved Acute renal failure superimp osed on stage 3a chronic kidney disease resolved Decreased oral intake resolv ed Hypokalemia resolved Melena resolved Acute hypokalemia resolved Acute hyponatremia resolved Confusion resolved Weakness resolved [facility] Work Phone: 1(149) 510-918804-04-2023 History of Present illness Narrative* Vijaya Huntley LPN - 09/06/2022 2:49 PM EDT Patient presents with: Imm/Inj Pt is identified by name and birthdate: Yes. Allergies and medications reviewed. Latex allergy? No. Does this patient have: Unplanned weight loss or gain of greater than 10 pounds, or a change of appetite over the last year? No Does the patient have any concerns about safety in the home/falls? At risk due to: imbalance Has the patient fallen in the past year? yes Does the patient have difficulty performing or completing routine daily living activities? No Does this patient have concerns about personal safety? No Is patient having pain? Pain: No=0 (pain 0 on a scale of 0-10). Health Maintenance: Reviewed and updated. Does patient have MyChart access or Caregiver proxy: yes Pt/Caregiver willingness and readiness to learn assessed: Yes. Barriers: none cyanocobalamin injection administered, left Deltoid, tolerated well, no immediate adverse reactionsnoted. Vijaya Huntley LPN [facility] History of Present illness Narrative* Carmelo Leavitt RN - 09/02/2022 10:46 AM EDT [facility] CDM Engagement Provider Action/FYI: CDM: CKD Spk with Cristina daughter, she reported Pt was admitted for UTI discharged to [facility],receiving for Physical Therapy Pt's daughter noted the plan is possibly Assisted Living at discharge. My chart questionnaire location/ reminder provided. Contact Made with Patient: Yes Patient identified by name and . Discussed care with daughter Matias steward name is Carmelo Leavitt RN your Dual Rate Supervisor from Clau Baca MD office at the [facility]. I am reaching out today because I noticed it has been a few weeks since I have seenany responses from you on your questionnaire. I wanted to check on you and make sure you are doing well, and to remind you that your Clau Baca MD recommended this program for you so that you can stay better connected to your health. I will be monitoring your responses on the questionnaire to make sure we are not seeing any changes in your health that your Primary Care Physician needs to know about, or looking for improvements and keeping Clau Baca MD informed about it all. You and I will check in together anytime a problem arises, and determine a solution. I am here to help you stay healthy, and stay connected to your doctor's office. How can I help you in this program? The patient informs that she forgot. Please take some time today to answer the questionnaire. I am looking forward to receiving your answers. If I do not receive your answers in the next 2 business days I will check back in. MICHELE Education Ordered -: No --END CALL Carmelo Leavitt RN September 02, 2022 10:46 AM [facility] Andrade [facility] August 23, 2022 9:03am Note Date/Time August 23, 2022 9:0 3am [facility] Medical Records Department [address] [place] [address] Transfer to [facility] MR#: [id number] Acct: [id number] Name: MAIA NIETO Rep #:[id number] : 1945 77 From: Ashley Andrade MD PCP: Dr. Clau Baca MD Status:ADM I N Certification of patient admission REQUIRED AT TIME OF ADMISSION. I CERTIFY THAT POST-HOSPITAL ECF SERVICES ARE REQUIRED TO BE GIVEN ON AN IN-PATIENT BASIS BECAUSE OF THE ABOVE NAMED PATIENT'S NEED FOR [facility] CARE ON A CONTINUING BASIS FOR THE CONDITION(S) FOR WHICH HE/SHE WAS RECEIVING IN-PATIENT HOSPITAL SERVICES PRIOR TO HIS/HER TRANSFER TO THE ECF. 08/23/22 0903<Electronically signed by Ashley Andrade MD> Diet Diet Order/Speech Therapy: 08/19/22 16:11 Diet: Regular - General Food consistency:: Regular Liquid Consistency:: Regular/Thin Routine Orders/Code Status Enema Type: Fleetz Enema Frequency: Daily PRN Suppository Type: Dulcolax 10mg Suppository Frequency: Daily PRN O2 Frequency: PRN Keep PO Greater than or Equal to (%): 90 Therapies Weight Bearing: Weight bearing as tolerated Physical Therapy: Eval and Treat Occupational Therapy: Eval and Treat Problem/Diagnosis (1) Confusion: Status: Acute Code(s): R41.0 - Disorientation, unspecified (2) Weakness: Status: Acute Code(s): R53.1 - Weakness (3) Acute hyponatremia: Status: Acute Code(s): E87.1 - Hypo-osmolality and hyponatremia Plan #Debility and weakness * impoving. * PT/OT on board * fall precautions * #Altered mental status * likely due to hyponatremia. has improved, confusion seems to have resolved * resolved. * #UTI * was being treated for UTI on outpatient basis. completed a course of levaquin. * #HILARIO on CKD 3: Cr is down to 1.22, from 2.19 on admission. Will rend Cr #HYpokalemia:resolved. K is 3.6 today #Hypertension: HCTZ on hold due to hyponatremia. Losatan held due to HILARIO. IV hydralzine prn. BP running on the low side of normal,so will continue holdiing BP meds #CAD s/p CABG: stable. On lipitor #Restless leg syndrome: sable. #GERD: o PPI. On oral iron replacement therapy. DVT prophylaxis: SCDs Disposition: awaiting placement Allergies/Procedures Done in Hospital Allergies amoxicillin Allergy (Verified 08/12/22 17:54) Itching Penicillins Allergy (Verified 08/12/22 17:54) Itching Procedures: None Type of Care/Length of Stay Estimated LOS: Convalescent Care Less Than 30 days Type of Care Needed: Skilled Rehab Potential: Fair Prognosis: Fair Additional Orders/Day of Discharge Day of Discharge: 08/23/22 Dietary and Speech Recommendations Dietitian Recommendations/Changes: Continue regular diet and offer ONS as neededif intake fails at meals. Discharge Plan Admission Admit Date/Time: 08/19/22 16:11 Primary Reason for Your Visit: debility and weakness Attending Provider: Ashley Andrade Primary Care Provider: Clau Baca Consulting Providers: Prabhakar Kimball Instructions Patient Instructions: ED Cystitis Female Adult, ED Weakness (Uncertain Cause) Discharge Orders/Prescriptions Prescriptions: Continued carbidopa-levodopa 1 EACH tablet 1 tab PO BID pantoprazole 40 MG tablet 40 mg PO BID potassium chloride 20 MEQ tablet 10 meq PO DAILY atorvastatin 10 mg tablet 10 mg PO QHS copper gluconate 2 mg Tablet 4 mg PO DAILY cholecalciferol (vitamin D3) [Vitamin D3] 50 mcg (2,000 unit) Tablet 50 mcg PO DAILY losartan-hydrochlorothiazide 50-12.5 mg tablet 1 tab PO DAILY Myrbetriq 50 mg tablet extended release 24 hr 50 mg PO BID Label Comments: TAKE 2 TABLETS BY MOUTH ONCE DAILY trazodone 100 mg Tablet 100 mg PO QHS ferrous sulfate 325 MG tablet 325 mg PO DAILY Discontinued doxycycline hyclate [Vibramycin] 100 mg Capsule 100 mg PO BID levofloxacin 750 mg tablet 750 mg PO DAILY Referrals / Follow Up: Clau Baca MD [Primary Care Provider] - Within 2 Weeks Disposition Disposition (needs filled in before D/C Order can be placed): [facility] 08/23/22 0903 <Electronically signed by Ashley Andrade MD> Cosigner Signature (if applicable): CC: Dr. Clau Baca MD; Dr. Prabhakar Kimball MD ~ [facility] Work Phone: 1(599) 979-972903-21-[address] Andrade [facility] August 23, 2022 12:43pm Note Date/Time August 23, 2022 9:0 2am [facility] Medical Records Department [address] [place] [address] Discharge Summary 08/23/22901 MR#: [id number] Acct: [id number] Name: MAIA NIETO Rep #:[id number] : 1945 77 From: Ashley Andrade MD PCP: Dr. Clau Baca MD Status:ADM I N Location: [place] [address] Providers Date of Admission: 08/19/22 Date of Discharge: 08/23/22 Primary Care Physician: Dr. Clau Baca MD Reason For Visit: WEAKNESS AND DEBILITY Diagnosis Discharge Diagnosis (1) Confusion: Status: Acute Code(s): R41.0 - Disorientation, unspecified (2) Weakness: Status: Acute Code(s): R53.1 - Weakness (3) Acute hyponatremia: Status: Acute Code(s): E87.1 - Hypo-osmolality and hyponatremia Plan #Debility and weakness * impoving. * PT/OT on board * fall precautions * #Altered mental status * likely due to hyponatremia. has improved, confusion seems to have resolved * resolved. * #UTI * was being treated for UTI on outpatient basis. completed a course of levaquin. * #HILARIO on CKD 3: Cr is down to 1.22, from 2.19 on admission. Will rend Cr #HYpokalemia:resolved. K is 3.6 today #Hypertension: HCTZ on hold due to hyponatremia. Losatan held due to HILARIO. IV hydralzine prn. BP running on the low side of normal,so will continue holdiing BP meds #CAD s/p CABG: stable. On lipitor #Restless leg syndrome: sable. #GERD: o PPI. On oral iron replacement therapy. DVT prophylaxis: SCDs Disposition: awaiting placement Medications at Discharge Home Medications carbidopa 25 mg-levodopa 100 mg tablet 1 tab PO BID restless legs 11/29/18 pantoprazole 40 mg tablet,delayed release 40 mg PO BID gerd 03/01/19 potassium chloride 20 mEq tablet,extended release(part/cryst) 10 meq PO DAILY supplement 03/28/19 atorvastatin 10 mg tablet 10 mg PO QHS cholesterol 05/01/21 cholecalciferol (vitamin D3) 50 mcg (2,000 unit) tablet (Vitamin D3) 50 mcg PO DAILY supplement 05/01/21 copper gluconate 2 mg tablet 4 mg PO DAILY supplement 05/01/21 mirabegron 50 mg tablet,extended release 24 hr (Myrbetriq) 50 mg PO BID 05/30/22 trazodone 100 mg tablet 100 mg PO QHS 05/30/22 ferrous sulfate 325 mg (65 mg iron) tablet 325 mg PO DAILY anemia 08/19/22 losartan 25 mg tablet 25 mg PO DAILY #30 tabs 08/23/22 Hospital Course Operations None Procedures None Summary of Care Provided Minutes Spent on Discharge: 47 Hospital Course: Patient is a 77-year-old female with a past medical history as outlined was admitted through the ED on 08/19/2022 with a complaint of altered mental status and weakness. Family had found her sitting naked in the chair with difficulty getting up on her own and needing significant assistance by family members. Shedid not know what year it was and no know where she was and could not see where she was naked. Per family, patient had been progressively getting forgetful over several months prior to admission and they were looking into getting her into assisted living facility. She had recently been diagnosed with UTI in the ED. she had been prescribed Macrobid but this was subsequently changed to Levaquin based on sensitivities. She had been supposed to be taking it every 48hours but had been taking it daily. On admission she was found to be hyponatremic with sodium of 127 and potassium was also low at 3.1. Creatinine was 2.19. She was admitted and managed for debility with altered mental status. PT OT was consulted. Her hydrochlorothiazide was held due to hyponatremia. Potassium was replaced. She was also hydrated with fluids on account of elevated creatinine. She was placed back on the Levaquin and was given 1 more dose to complete the 5-day course. She worked with physical therapy and felt better. She was [facility] to [facility] facility on 08/23/2022. Her hydrochlorothiazide was discontinued and her losartan was cut down to 25 mg daily. She is to follow-up with her primary care doctor within 1 to 2 weeks. Idid have an extensive discussion with patient's daughter who said as far as she knew her mother did not have a known diagnosis of Parkinson's disease and was onthe levodopa carbidopa for restless leg syndrome. She however said her mother had been getting more forgetful for several months now. I counseled daughter tofollow-up with primary care doctor for patient to be evaluated for probable dementia and also to confirm that the Sinemet was only for restless leg syndromeas it was usually the first-line of medication use for restless leg syndrome. Zachary wondering if patient may have had an element of parkinsonism and was started on it as well but this would need to be clarified with her primary care doctor. Daughter expressed understanding. Patient seen and examined prior to discharge. She felt well and had no active complaints. Review of systems otherwise negative. Labs and vitals reviewed. Home medications reviewed and reconciled. Physical Exam Const alert, oriented x3 and no apparent distress General Appearance: cooperative, comfortable and well kempt Orientation / Consciousness: awake Exam Limitations: no limitations HEENT normocephalic, head/scalp atraumatic, hearing grossly normal bilaterally and moist oral mucous membranes Mouth: oral and palatal mucosa normal Eyes PERRL, EOMs intact bilaterally and conjunctivae normal Neck no lymphadenopathy, supple and no JVD Lymph Lymphatic: no lymphadenopathy noted and no lymphedema noted Resp normal respiratory effort, normal air movement, no retractions, no use of accessory muscles and clear to auscultation bilaterally Cardio regular rate, regular rhythm, S1 normal heart sound, S2 normal heart sound and no murmurs GI normal to inspection, nondistended, normoactive bowel sounds, soft to palpation,non-tender and non-distended Extremity normal to inspection, full ROM, normal capillary refill, no clubbing, cyanosis or edema and no calf tenderness Skin no rashes or lesions noted General Skin Exam: no breakdown Neuro oriented x3, CN's II-XII intact bilaterally, moves all extremities, no focal motor deficits, no sensory deficits noted and deep tendon reflexes 2+ bilaterally Sensorium / Orientation: awake and alert Motor Exam: strength 5/5 throughout Psych thought process normal, cooperative and affect normal Weight / BMI Weight Weight: 123 lb 14.397 oz Body Mass Index (BMI) 22.6 ABG / Lab / Microbiology Data Result Diagrams: 08/23/22 05:37 08/23/22 05:37 Laboratory: Laboratory Results - last 24 hr 08/23/22 05:37: WBC 7.1, RBC 2.62 L, Hgb 8.9 L, Hct 27.6 L, MCV 105.3 H, MCH 34.0 H, MCHC 32.2, RDW Std Deviation 51.6 H, RDW Coeff of Erma 13.2, Plt Count 170, MPV 9.6, Immature Gran % (Auto) 0.600, Neut % (Auto) 73.5 H, Lymph % (Auto)15.5 L, [place] % (Auto) 6.3, Eos % (Auto) 3.7, Baso % (Auto) 0.4, Absolute Neuts (auto) 5.2, Absolute Lymphs (auto) 1.10, Nucleated RBC % 0 08/23/22 05:37: Sodium 140, Potassium 3.5, Chloride 115 H, Carbon Dioxide 19.0 L, Anion Gap 6, BUN 22 H, Creatinine 1.08 H, Estim Creat Clear Calc 33.41, Est GFR (MDRD) Af Amer 63, Est GFR (MDRD) Non-Af 52 L, BUN/Creatinine Ratio 20.4 H, Glucose 87, Calcium 7.7 L 08/23/22 05:37: Magnesium 2.3 Microbiology: Microbiology 08/19/22 10:54 Blood Culture (Wb) - Anticubital Left Blood Culture - Preliminary No growth in 48 hours. 08/19/22 12:10 Blood Culture (Wb) - Anticubital Left Blood Culture - Preliminary No growth in 48 hours. 08/19/22 11:00 Urine Catheter - Catheter Urine Culture - Final Culture exhibits no growth. 08/19/22 11:55 Stool Stool Occult Blood (KYLE) - Final D/C Instructions Discharge Diet: Low fat / Low cholesterol Discharge Activity: Return to Normal Activity Weight Bearing Status: Weight bearing as tolerated Call your doctor if you observe: Fever of 101 or Higher, Shortness of breath, Swelling in the ankles and Increased palpitations (irregular heartbeat) Meaningful Use Info Meaningful Use Diagnoses (Choose all that apply): None applicable Discharge Plan Admission Admit Date/Time: 08/19/22 16:11 Primary Reason for Your Visit: debility and weakness Attending Provider: Ashley Andrade Primary Care Provider: Clau Baca Consulting Providers: Prabhakar Kimball Instructions Patient Instructions: ED Cystitis Female Adult, ED Weakness (Uncertain Cause) Discharge Orders/Prescriptions Prescriptions: New losartan 25 mg tablet 25 mg PO DAILY Qty: 30 1RF Continued carbidopa-levodopa 1 EACH tablet 1 tab PO BID pantoprazole 40 MG tablet 40 mg PO BID potassium chloride 20 MEQ tablet 10 meq PO DAILY atorvastatin 10 mg tablet 10 mg PO QHS copper gluconate 2 mg Tablet 4 mg PO DAILY cholecalciferol (vitamin D3) [Vitamin D3] 50 mcg (2,000 unit) Tablet 50 mcg PO DAILY Myrbetriq 50 mg tablet extended release 24 hr 50 mg PO BID Label Comments: TAKE 2 TABLETS BY MOUTH ONCE DAILY trazodone 100 mg Tablet 100 mg PO QHS ferrous sulfate 325 MG tablet 325 mg PO DAILY Discontinued doxycycline hyclate [Vibramycin] 100 mg Capsule 100 mg PO BID losartan-hydrochlorothiazide 50-12.5 mg tablet 1 tab PO DAILY levofloxacin 750 mg tablet 750 mg PO DAILY Referrals / Follow Up: Clau Baca MD [Primary Care Provider] - Within 2 Weeks Disposition Disposition (needs filled in before D/C Order can be placed): [facility] Facility Charges/Coding Visit Charges Inpatient E&M: 54951 Disch Hosp >30min 08/23/22 1243 <Electronically signed by Ashley Andrade MD> Cosigner Signature (if applicable): CC: Dr. Clau Baac MD; Dr. Ashley Andrade MD~ Signed [facility] Work Phone: 1(790) 802-332903-21-2023 Evaluation note* Diagnosis Onset Date Resolution Status Debility acute Generalized weakness acute Acute hypotension resolved Acute prerenal azotemia reso lved Acute renal failure superimp osed on stage 3a chronic kidney disease resolved Decreased oral intake resolv ed Hypokalemia resolved Melena resolved Acute hypokalemia acute Acute hyponatremia acute Confusion acute Weakness acute [facility] Work Phone: [phone]) 941-723803-20-2023 Progress note Author [facility] August 22, 2022 10:55am Note Date/Time August 22, 2022 10: 55am [facility] Medical Records Department [address] [place] [address] Progress Note 08/22/22 1052 MR#: [id number] Acct: [id number] Name: MAIA NIETO Rep #:[id number] : 1945 77 From: Ashley Andrade MD PCP: Dr. Clau Baca MD Status:ADM I N Location: [place] [address] Subjective Subjective Patient seen and examined. She had no complaints and had an uneventful night. Review of systems is otherwise negative. Objective Data Objective Data Vital Signs: Vital Signs Temp Pulse Resp BP Pulse Ox O2 Del Method 98.3 F 73 16 101/55 L 100 Room Air 08/22/22 10:34 08/22/22 10:34 08/22/22 10:34 08/22/22 10:34 08/22/22 10:34 08/22/22 10:34 Oxygen Delivery Method Room Air Weight: 123 lb 14.397 oz Body Mass Index (BMI) 22.6 Intake & Output: Intake and Output for Last 24 Hours 08/20/22 08/21/22 08/22/22 23:59 23:59 23:59 Intake Total 4290.00 / 4490.00 2798.33 / 2798.33 Output Total 1150 / 1150 775 / 775 250 / 250 Balance 3140.00 / 3340.00 2023.33 / 2023.33 -250 / -250 Lab / Micro Data Result Diagrams: 08/22/22 05:35 08/22/22 05:35 Labs: Laboratory Results - last 24 hr 08/22/22 05:35: WBC 6.6, RBC 2.55 L, Hgb 8.7 L, Hct 27.1 L, MCV 106.3 H, MCH 34.1 H, MCHC 32.1, RDW Std Deviation 52.0 H, RDW Coeff of Erma 13.2, Plt Count 165, MPV 9.6, Immature Gran % (Auto) 0.800, Neut % (Auto) 71.1 H, Lymph % (Auto)17.0 L, [place] % (Auto) 6.8, Eos % (Auto) 3.8, Baso % (Auto) 0.5, Absolute Neuts (auto) 4.7, Absolute Lymphs (auto) 1.13, Nucleated RBC % 0 08/22/22 05:35: Sodium 139, Potassium 3.6, Chloride 113 H, Carbon Dioxide 19.0 L, Anion Gap 7, BUN 25 H, Creatinine 1.22 H, Estim Creat Clear Calc 29.57, Est GFR (MDRD) Af Amer 55 L, Est GFR (MDRD) Non-Af 45 L, BUN/Creatinine Ratio 20.5 H, Glucose 86, Calcium 7.9 L, Magnesium 1.2 L Micro: Microbiology 08/19/22 10:54 Blood Culture (Wb) - Anticubital Left Blood Culture - Preliminary No growth in 48 hours. 08/19/22 12:10 Blood Culture (Wb) - Anticubital Left Blood Culture - Preliminary No growth in 48 hours. 08/19/22 11:00 Urine Catheter - Catheter Urine Culture - Final Culture exhibits no growth. 08/19/22 11:55 Stool Stool Occult Blood (KYLE) - Final Physical Exam Const alert, oriented x3 and no apparent distress HEENT normocephalic, head/scalp atraumatic and moist oral mucous membranes Eyes PERRL and EOMs intact bilaterally Neck no lymphadenopathy, supple and no JVD Lymph Lymphatic: no lymphadenopathy noted and no lymphedema noted Resp normal respiratory effort, normal air movement and clear to auscultation bilaterally Cardio regular rate, regular rhythm, S1 normal heart sound, S2 normal heart sound and no murmurs GI normal to inspection, nondistended, normoactive bowel sounds, soft to palpation,non-tender and non-distended Extremity normal capillary refill, no clubbing, cyanosis or edema and no calf tenderness Skin General Skin Exam: no breakdown Neuro CN's II-XII intact bilaterally, no focal motor deficits, no sensory deficits noted and deep tendon reflexes 2+ bilaterally Psych thought process normal, cooperative and affect normal Assessment & Plan Assessment/Plan (1) Confusion: (2) Weakness: (3) Acute hyponatremia: PLAN: Plan #Debility and weakness * impoving. * PT/OT on board * fall precautions * #Altered mental status * likely due to hyponatremia. has improved, confusion seems to have resolved * resolved. * #UTI * was being treated for UTI on outpatient basis. completed a course of levaquin. * #HILARIO on CKD 3: Cr is down to 1.22, from 2.19 on admission. Will rend Cr #HYpokalemia:resolved. K is 3.6 today #Hypertension: HCTZ on hold due to hyponatremia. Losatan held due to HILARIO. IV hydralzine prn. BP running on the low side of normal,so will continue holdiing BP meds #CAD s/p CABG: stable. On lipitor #Restless leg syndrome: sable. #GERD: o PPI. On oral iron replacement therapy. DVT prophylaxis: SCDs Disposition: awaiting placement Charges/Coding Visit Charges Inpatient E&M: 99341 Subs Hosp L2 08/22/22 1055 <Electronically signed by Ashley Andrade MD> Ashley Andrade MD Cosigner Signature (if applicable): CC: ~ Signed [facility] Work Phone: [phone]) 281-557403-19-[address] Andrade [facility] August 21, 2022 10:38am Note Date/Time August 21, 2022 10: 37am [facility] Medical Records Department [address] [facility] [place] [address] Progress Note 08/21/22 1033 MR#: [id number] Acct: [id number] Name: MAIA NIETO Rep #:[id number] : 1945 77 From: Ashley Andrade MD PCP: Dr. Clau Baca MD Status:ADM I N Location: [place] [address] Subjective Subjective Patient seen and examined. She had no complaints todya and had an uneventful night. Review of systems is otherwise negative. She is awaiting placement. Objective Data Objective Data Vital Signs: Vital Signs Temp Pulse Resp BP Pulse Ox O2 Del Method 98.1 F 75 16 104/54 L 100 Room Air 08/21/22 09:00 08/21/22 09:00 08/21/22 09:00 08/21/22 09:00 08/21/22 09:00 08/21/22 09:00 Oxygen Delivery Method Room Air Weight: 123 lb 14.397 oz Body Mass Index (BMI) 22.6 Intake & Output: Intake and Output for Last 24 Hours 08/19/22 08/20/22 08/21/22 23:59 23:59 23:59 Intake Total 1092.5 / 1092.5 4290.00 / 4490.00 1078.33 / 1078.33 Output Total 1150 / 1150 Balance 1092.5 / 742.5 3140.00 / 3340.00 1078.33 / 1078.33 Lab / Micro Data Result Diagrams: 08/21/22 05:00 08/21/22 05:00 Labs: Laboratory Results - last 24 hr 08/21/22 05:00: WBC 7.0, RBC 2.53 L, Hgb 8.5 L, Hct 26.4 L, MCV 104.3 H, MCH 33.6 H, MCHC 32.2, RDW Std Deviation 49.4 H, RDW Coeff of Erma 13.0, Plt Count 163, MPV 9.8, Immature Gran % (Auto) 1.600 H, Neut % (Auto) 71.4 H, Lymph % (Auto) 17.0 L, [place] % (Auto) 6.6, Eos % (Auto) 3.0, Baso % (Auto) 0.4, Absolute Neuts (auto) 5.0, Absolute Lymphs (auto) 1.19, Nucleated RBC % 0 08/21/22 05:00: Sodium 141, Potassium 3.1 L, Chloride 114 H, Carbon Dioxide 19.0L, Anion Gap 8, BUN 29 H, Creatinine 1.37 H, Estim Creat Clear Calc 26.34, Est GFR (MDRD) Af Amer 48 L, Est GFR (MDRD) Non-Af 40 L, BUN/Creatinine Ratio 21.2 H, Glucose 92, Calcium 7.4 L Micro: Microbiology 08/19/22 11:00 Urine Catheter - Catheter Urine Culture - Final Culture exhibits no growth. 08/19/22 11:55 Stool Stool Occult Blood (KYLE) - Final Physical Exam Const alert, oriented x3 and no apparent distress HEENT normocephalic, head/scalp atraumatic and moist oral mucous membranes Eyes PERRL and EOMs intact bilaterally Neck supple and no JVD Lymph Lymphatic: no lymphadenopathy noted and no lymphedema noted Resp normal respiratory effort, normal air movement and clear to auscultation bilaterally Cardio regular rate, regular rhythm, S1 normal heart sound, S2 normal heart sound and no murmurs GI normal to inspection, nondistended, normoactive bowel sounds, soft to palpation,non-tender and non-distended Extremity normal capillary refill, no clubbing, cyanosis or edema and no calf tenderness Skin General Skin Exam: no breakdown Neuro CN's II-XII intact bilaterally, no focal motor deficits, no sensory deficits noted and deep tendon reflexes 2+ bilaterally Psych thought process normal, cooperative and affect normal Assessment & Plan Assessment/Plan (1) Confusion: (2) Weakness: (3) Acute hyponatremia: PLAN: Plan #Debility and weakness * impoving. * PT/OT on board * fall precautions * #Altered mental status * likely due to hyponatremia. has improved, confusion seems to have resolved * resolved. * #UTI * was being treated for UTI on outpatient basis. completed a course of levaquin. * #HILARIO on CKD 3: Cr is down to 1.37, from 2.19 on admission. Will rend Cr #HYpokalemia:potassium is 3.1 today. will replace and trend. #Hyperension: HCTZ on hold due to hyponatremia. Losatan held due to HILARIO. IV hydralzine prn #CAD s/p CABG: stable. On lipitor #Restless leg syndrome: sable. #GERD: o PPI. On oral iron replacement therapy. DVT prophylaxis: lovenox Disposition: awaiting placement Charges/Coding Visit Charges Inpatient E&M: 58103 Subs Hosp L2 08/21/22 1038 <Electronically signed by Ashley Andrade MD> Ashley Andrade MD Cosigner Signature (if applicable): CC: ~ Signed [facility] Work Phone: [phone]) 501-206403-18-[address] Andrade [facility] August 20, 2022 4:06pm Note Date/Time August 20, 2022 1:3 8pm [facility] Medical Records Department [address] [place] [address] Progress Note 08/20/22 1335 MR#: [id number] Acct: [id number] Name: MAIA NIETO Rep #:[id number] : 1945 77 From: Ashley Andrade MD PCP: Dr. Clau Baca MD Status:ADM I N Location: [place] [address] Subjective Subjective Patient seen and examined. She had no complaints and was comfortably eating breakfast. Review of systems was otherwise negative. BP was running low today, with systolic in the 90s. She remained asymptomatic. Review of systems is otherwise negative. Objective Data Objective Data Vital Signs: Vital Signs Temp Pulse Resp BP Pulse Ox O2 Del Method 98.3 F 76 16 95/50 L 99 Room Air 08/20/22 13:16 08/20/22 13:16 08/20/22 13:16 08/20/22 13:16 08/20/22 13:16 08/20/22 13:16 Oxygen Delivery Method Room Air Weight: 123 lb 14.397 oz Body Mass Index (BMI) 22.6 Intake & Output: Intake and Output for Last 24 Hours 08/18/22 08/19/22 08/20/22 23:59 23:59 23:59 Intake Total 1092.5 / 1092.5 2740 / 2740 Output Total 1150 / 1150 Balance 1092.5 / 742.5 1590 / 1590 Lab / Micro Data Result Diagrams: 08/20/22 07:18 08/20/22 07:18 Labs: Laboratory Results - last 24 hr 08/20/22 07:18: WBC 4.9, RBC 2.79 L, Hgb 9.2 L, Hct 28.6 L, MCV 102.5 H, MCH 33.0 H, MCHC 32.2, RDW Std Deviation 47.1 H, RDW Coeff of Erma 12.5, Plt Count 156, MPV 10.3, Immature Gran % (Auto) 1.600 H, Neut % (Auto) 65.9, Lymph % (Auto) 19.6, [place] % (Auto) 9.4, Eos % (Auto) 3.1, Baso % (Auto) 0.4, Absolute Neuts (auto) 3.2, Absolute Lymphs (auto) 0.96, Nucleated RBC % 0 08/20/22 07:18: Sodium 141, Potassium 2.9 L, Chloride 110 H, Carbon Dioxide 19.0L, Anion Gap 12, BUN 35 H, Creatinine 1.60 H, Estim Creat Clear Calc 22.55, Est GFR (MDRD) Af Amer 40 L, Est GFR (MDRD) Non-Af 33 L, BUN/Creatinine Ratio 21.9 H, Glucose 91, Calcium 7.5 L, Phosphorus 2.8, Magnesium 1.4 L Micro: Microbiology 08/19/22 11:00 Urine Catheter - Catheter Urine Culture - Preliminary Culture exhibits no growth. 08/19/22 11:55 Stool Stool Occult Blood (KYLE) - Final Physical Exam Const alert, oriented x3 and no apparent distress HEENT normocephalic, head/scalp atraumatic and moist oral mucous membranes Eyes PERRL and EOMs intact bilaterally Neck supple and no JVD Lymph Lymphatic: no lymphadenopathy noted and no lymphedema noted Resp normal respiratory effort, normal air movement and clear to auscultation bilaterally Cardio regular rate, regular rhythm, S1 normal heart sound, S2 normal heart sound and no murmurs GI normal to inspection, nondistended, normoactive bowel sounds, soft to palpation,non-tender and non-distended Extremity normal capillary refill, no clubbing, cyanosis or edema and no calf tenderness Skin General Skin Exam: no breakdown Neuro CN's II-XII intact bilaterally, no focal motor deficits, no sensory deficits noted and deep tendon reflexes 2+ bilaterally Psych thought process normal, cooperative and affect normal Assessment & Plan Assessment/Plan (1) Confusion: (2) Weakness: (3) Acute hyponatremia: PLAN: Plan #Debility and weakness * feeling better today * PT/OT on board * fall precautions * #Altered mental status * likely due to hyponatremia. has improved, confusion seems to have resolved * being hydrated with IVF * hyponatremia resolved. * will trend sodium * #UTI * was being treated for UTI on outpatient bassis. Was on [id number] hourly. To et last dose today * #HILARIO on CKD 3: Cr is down to 1.6, from 2.19 on admission. Will rend Cr #HYpokalemia: K is 2.9. Will replace and trend. #Hyperension: HCZ on hold due to hyponatremia. Losatan held due to HILARIO. IV hydralzine prn #CAD s/p CABG: stable. On lipitor #Restless leg syndrome: sable. #GERD: o PPI. On oral iron replacement therapy. DVT prophylaxis: lovenox Charges/Coding Visit Charges Inpatient E&M: 30535 Subs Hosp L2 08/20/22 1606 <Electronically signed by Ashley Andrade MD> Ashley Andrade MD Cosigner Signature (if applicable): CC: ~ Signed [facility] Work Phone: [phone] History and physical note Author Dr. Kimball [facility] August 19, 2022 11:52pm Note Date/Time August 19, 2022 3:2 7pm [facility] Medical Records Department [address] [place] [address] H&P Exam - Hospitalist 08/19/22 1514 MR#: [id number] Acct: [id number] Name: MAIA NIETO Rep #:[id number] : 1945 77 From: Prabhakar greenberg MD PCP: Dr. Clau Baca MD Status:ADM I N Location: [place] [address] 1 HPI - General General Date of Admission: 08/19/22 HPI Narrative MAIA NIETO, is a 77 F who presents with altered mental status and weakness. Family states that they had dinner with her last night she seemed okay but thismorning they went over and she was sitting naked in the chair, and had difficulty rising on her own and needs significant assistance by her children. She did not know why she was naked. In the ER she does not know what year it isthough she does know where she is. Family does indicate that there has been progressive worsening in mental status over the last several months and they areactually currently looking into assisted living. Of note she was recently in the ER about a week ago and was diagnosed with a UTI and started on Macrobid however this was changed to Levaquin when sensitivities came back. Unfortunately she is to be dosed every 48 hours and she has been getting the Levaquin every day so we will hold the dose today and restart tomorrow morning. In the ER lab work demonstrates a sodium of 127 and potassium of 3.1. Her renalfunction is actually better than it was a week ago at 2.19. [facility] Medical History Anxiety CAD (coronary artery disease) Depression Dyspnea GERD (gastroesophageal reflux disease) GI bleed HTN (hypertension) Hyperlipidemia Iron deficiency anemia Irregular heart beat Kidney stones Osteoarthritis Pacemaker Parkinson disease Post-menopausal Restless legs Rheumatoid arthritis Home Medications carbidopa 25 mg-levodopa 100 mg tablet 1 tab PO BID restless legs 11/29/18 [History Last Taken 05/01/21] pantoprazole 40 mg tablet,delayed release 40 mg PO BID gerd 03/01/19 [History Last Taken 05/01/21] potassium chloride 20 mEq tablet,extended release(part/cryst) 10 meq PO DAILY supplement 03/28/19 [History Last Taken Unknown] atorvastatin 10 mg tablet 10 mg PO QHS cholesterol 05/01/21 [History Last Taken Unknown] cholecalciferol (vitamin D3) 50 mcg (2,000 unit) tablet (Vitamin D3) 50 mcg PO DAILY supplement 05/01/21 [History Last Taken Unknown] copper gluconate 2 mg tablet 4 mg PO DAILY supplement 05/01/21 [History Last Taken Unknown] doxycycline hyclate 100 mg capsule (Vibramycin) 100 mg PO BID antibiotic 05/01/21 [History Last Taken Unknown] losartan 50 mg-hydrochlorothiazide 12.5 mg tablet 1 tab PO DAILY . 05/30/22 [History Last Taken Unknown] mirabegron 50 mg tablet,extended release 24 hr (Myrbetriq) 50 mg PO BID 05/30/22[History Last Taken Unknown] trazodone 100 mg tablet 100 mg PO QHS 05/30/22 [History Last Taken Unknown] ferrous sulfate 325 mg (65 mg iron) tablet 325 mg PO DAILY anemia 08/19/22 [History Last Taken Unknown] levofloxacin 750 mg tablet 750 mg PO DAILY ANTIBIOTIC 08/19/22 [History Last Taken Unknown] Allergy/AdvReac Type Severity Reaction Status Date / Time amoxicillin Allergy Itching Verified 08/12/22 17:54 Penicillins Allergy Itching Verified 08/12/22 17:54 Family History Other Diabetes Hypertension Surgical History History of total knee replacement (TKR) Hx of CABG S/P hysterectomy Social History household members: none housing: house Smoking Status: Never smoker substance use type: does not use ROS Constitutional Constitutional: Reports weakness; Denies chills, fatigue, fever(s) or malaise Eyes Eyes: Denies blurry vision ENT HEENT: Denies headache(s) or nasal discharge Cardiovascular Cardiovascular: Denies chest pain, dyspnea on exertion or syncope Respiratory/Chest Respiratory/Chest: Denies cough, shortness of breath at rest or shortness of breath with exertion Gastrointestinal Gastrointestinal: Denies constipation, diarrhea, nausea or vomiting Genitourinary Genitourinary: Denies dysuria Neurologic Neurologic: Reports confusion; Denies focal weakness, numbness or tremor(s) Psychiatric Psychiatric: Denies anxiety or depression Vital Signs Vital Signs Vital Signs: 08/19/22 09:29 08/19/22 12:11 08/19/22 14:00 Temperature 98.5 F 99.2 F H Temperature Source Temporal Temporal Pulse Rate 98 96 85 Respiratory Rate 18 19 H 20 H Blood Pressure 145/117 H 110/62 118/64 Blood Pressure Mean 126 78 82 Pulse Ox 95 98 94 Oxygen Delivery Method Room Air Room Air Weight Weight: 142 lb 6.698 oz Body Mass Index (BMI) 26.0 Physical Exam Narrative General: Alert, Oriented x2, Cooperative, No apparent distress HEENT: Atraumatic, PERRLA, EOMI, Normocephalic Oral: Moist Mucosa Neck: Supple, No JVD Lungs: Clear to auscultation, Normal air movement, No rhonchi, No wheeze, No rales Cardiovascular: Regular rate, Regular Rhythm, Normal S1, Normal S2, No murmurs Abdomen: Soft, Non Tender, Non-Distended, No Hepato-splenomegaly Extremities: No edema, Capillary Refill Less than 3 Seconds Skin: No rashes, No breakdown Musculoskeletal: No Tenderness to Palpation of Joints or Extremities Neurological: Cranial nerves II-XII grossly intact, Motor Exam 5/5 strength throughout, Sensory exam intact to light touch and pain Psych/Mental Status: Normal Affect, Appropriate Results Lab / Micro Data Result Diagrams: 08/19/22 09:50 08/19/22 09:50 Labs: Laboratory Results - last 24 hr 08/19/22 09:50: WBC 8.2, RBC 3.10 L, Hgb 10.2 L, Hct 30.4 L, MCV 98.1, MCH 32.9 H, MCHC 33.6, RDW Std Deviation 43.8, RDW Coeff of Erma 12.1, Plt Count 183, MPV 9.8, Immature Gran % (Auto) 1.600 H, Neut % (Auto) 74.5 H, Lymph % (Auto) 12.0 L, [place] % (Auto) 10.7 H, Eos % (Auto) 1.0, Baso % (Auto) 0.2, Absolute Neuts (auto) 6.1, Absolute Lymphs (auto) 0.98, Nucleated RBC % 0 08/19/22 09:50: Sodium 127 L, Potassium 3.1 L, Chloride 96 L, Carbon Dioxide 21.0, Anion Gap 10, BUN 50 H, Creatinine 2.19 H, Estim Creat Clear Calc 16.47, Est GFR (MDRD) Af Amer 28 L, Est GFR (MDRD) Non-Af 23 L, BUN/Creatinine Ratio 22.8 H, Glucose 110 H, Calcium 8.7 08/19/22 10:34: Lactic Acid 1.1 08/19/22 11:00: Urine Color Yellow, Urine Clarity Sl. Cloudy, Urine pH 6.0, Ur Specific [place] 1.010, Urine Protein Negative, Urine Glucose (UA) Normal, UrineKetones Negative, Urine Occult Blood Negative, Urine Nitrite Negative, Urine Bilirubin Negative, Urine Urobilinogen Normal, Ur Leukocyte Esterase Negative, Urine RBC 0 SEEN, Urine WBC 0 SEEN, Ur Squamous Epith Cells 0-5 SEEN, Urine Bacteria 0 SEEN, Urine Mucus 0 SEEN Micro: Microbiology 08/19/22 11:55 Stool Stool Occult Blood (KYLE) - Final Radiology Impression Brain CT 08/19/22 10:22 IMPRESSION: Chronic involutional changes of the brain. Electronically Signed: Garth Everett MD at 11:36 EDT Reading Location ID and State: [address] [place] [address] , Service support , Shoulder X-Ray 08/19/22 10:24 IMPRESSION: Severe DJD of the left shoulder. Electronically Signed: Garth Everett MD at 11:47 EDT Reading Location ID and State: [facility] / [place] , Service support , Chest X-Ray 08/19/22 11:20 IMPRESSION: Degenerative changes, as described above. No demonstrated acute cardiopulmonary process. Electronically Signed: Garth Everett MD at 11:46 EDT Reading Location ID and State: [facility] / [place] , Service support , Assessment & Plan Assessment/Plan (1) Confusion: (2) Weakness: (3) Acute hyponatremia: PLAN: Plan 1. Weakness and debility with inability to complete ADLs with altered mental status and confusion/UTI from E. coli/hyponatremia/HILARIO on CKD 3B ? We will consult PT/OT for evaluation and possible placement ? Family is already looking at assisted living options as she has been getting more confused as time is gone on ? We will continue with 1 more dose of Levaquin, given her creatinine clearance that should be dosed every 48 hours her last dose was last night so we will giveher 1 more dose tomorrow and then it can be discontinued ? We will hold her hydrochlorothiazide given her hyponatremia and place her on IV fluids ? She is also hypokalemic so we will obtain a phosphorus and magnesium tomorrow morning and continue with potassium replacement ? Baseline creatinine is around 1.5 currently 2.19 we will continue with IV fluids 2. HTN/HLD/CAD status post CABG/pacemaker ? We will hold her hydrochlorothiazide secondary to hyponatremia and will hold losartan secondary to HILARIO ? Can continue with Lipitor 3. Restless legs ? They state that she takes Sinemet for restless legs given her age and the factthat this is not a standard treatment for restless legs will back off the dosingsee if this helps with her confusion 4. Iron deficiency anemia/GERD/history of GI bleed ? We will continue with her iron replacement ? Continue with PPI DVT: SCDs Charges/Coding Visit Charges Inpatient E&M: 31744 Init Hosp L3 08/19/22 1527 <Electronically signed by Prabhakar Kimball MD> Cosigner Signature (if applicable): CC: Dr. Clau Baca MD; Dr. Prabhakar Kimball MD~ Signed ADDENDUM by Dr. Prabhakar Kimball MD on 08/19/22 at 2352 Addendum I had a 25 minute advanced care planning discussion about prognosis and progression of dementia and her code status with her son and daughter. Procedures Hospitalists Procedures: 41295 Advncd Care Plan 30 Min 08/19/22 2352<Electronically signed by Prabhakar Kimball MD> Cosigner Signature (if applicable): cc: Dr. Clau Baca MD; Dr. Prabhakar Kimball MD ~* Signed [facility] Work Phone: [phone] Albright [facility] August 19, 2022 9:37pm Note Date/Time August 19, 2022 10: 27am [facility] Medical Records Department [address] [place] [address] Emergency Department Summary 08/19/22 MR#: [id number] Acct: [id number] Name: MAIA NIETO Rep #:[id number] : 1945 77 From: Ramona Albright MD PCP: Dr. Clau Baca MD Status:ADM I N Location: [address] History of Present Illness Chief Complaint: Weakness Informant: patient and family Narrative Narrative: Patient presents secondary to weakness and confusion. She was seen in the emergency room a week ago and diagnosed with a UTI. Family states that a few days later they got a phone call that the antibiotic needed to be switched. Sheis now been on a new antibiotic the last 3 days. Daughter states that she was at her mother's home last night, had dinner with her and helped her shower. Sheseemed well. This morning she was confused and very weak. She denies a fall. She is complaining of whole body pain. [facility] Medical History Anxiety CAD (coronary artery disease) Depression Dyspnea GERD (gastroesophageal reflux disease) GI bleed HTN (hypertension) Hyperlipidemia Iron deficiency anemia Irregular heart beat Kidney stones Osteoarthritis Pacemaker Parkinson disease Post-menopausal Restless legs Rheumatoid arthritis Home Medications carbidopa 25 mg-levodopa 100 mg tablet 1 tab PO BID restless legs 11/29/18 [History Last Taken 05/01/21] pantoprazole 40 mg tablet,delayed release 40 mg PO BID gerd 03/01/19 [History Last Taken 05/01/21] potassium chloride 20 mEq tablet,extended release(part/cryst) 10 meq PO QODAY supplement 03/28/19 [History Last Taken Unknown] atorvastatin 10 mg tablet 10 mg PO QHS cholesterol 05/01/21 [History Last Taken Unknown] cholecalciferol (vitamin D3) 50 mcg (2,000 unit) tablet (Vitamin D3) 50 mcg PO DAILY supplement 05/01/21 [History Last Taken Unknown] copper gluconate 2 mg tablet 4 mg PO DAILY supplement 05/01/21 [History Last Taken Unknown] doxycycline hyclate 100 mg capsule (Vibramycin) 100 mg PO BID antibiotic 05/01/21 [History Last Taken Unknown] ferrous sulfate 325 mg (65 mg iron) tablet 325 mg PO BIDCM anemia #0 tabs 05/06/21 [Rx Last Taken 03/01/19] losartan 50 mg-hydrochlorothiazide 12.5 mg tablet tab 05/30/22 [History Last Taken Unknown] mirabegron 50 mg tablet,extended release 24 hr (Myrbetriq) 50 mg PO BID 05/30/22[History Last Taken Unknown] trazodone 100 mg tablet 100 mg PO QHS 05/30/22 [History Last Taken Unknown] cephalexin 500 mg capsule 500 mg PO BID #4 caps 06/02/22 [Rx Last Taken Unknown] nitrofurantoin monohydrate/macrocrystals 100 mg capsule (Macrobid) 100 mg PO BID7 days #20 caps 08/12/22 [Rx Last Taken Unknown] Allergy/AdvReac Type Severity Reaction Status Date / Time amoxicillin Allergy Itching Verified 08/12/22 17:54 Penicillins Allergy Itching Verified 08/12/22 17:54 Family History Other Diabetes Hypertension Surgical History History of total knee replacement (TKR) Hx of CABG S/P hysterectomy Social History household members: none housing: house Smoking Status: Never smoker substance use type: does not use ROS ROS ED Constitutional Constitutional ED: Denies chills or fever(s) Eyes Eyes: Denies change in vision or discharge from eye(s) ENT ENT ED: Denies discharge from eye(s), rhinorrhea or sore throat Cardiovascular Cardiovascular: Denies chest pain or palpitations Respiratory/Chest Respiratory/Chest: Denies cough or dyspnea Gastrointestinal Gastrointestinal: Denies abdominal pain, nausea or vomiting Genitourinary Genitourinary ED: Reports urinary frequency Musculoskeletal Musculoskeletal: Reports back pain, extremity pain and myalgias Integumentary Denies Abrasions or rash Neurologic Neurologic: Reports weakness; Denies headache(s) Allergic/Immunologic Allergic/Immunologic ED: Denies lip swelling or urticaria EXAM Physical Exam Const Vital Signs: 08/19/22 09:29 08/19/22 12:11 Temperature 98.5 F Temperature Source Temporal Pulse Rate 98 96 Respiratory Rate 18 19 H Blood Pressure 145/117 H 110/62 Blood Pressure Mean 126 78 Pulse Ox 95 98 Oxygen Delivery Method Room Air Room Air Positive well nourished and well developed General Appearance ED: well developed HEENT Reports normocephalic and head/scalp atraumatic Eyes PERRL and EOMs intact bilaterally Neck supple Chest Wall inspection of chest normal and palpation of chest normal Resp normal respiratory effort and clear to auscultation bilaterally Cardio regular rate and regular rhythm GI non-tender Palpation: soft Back/Spine no CVA tenderness Extremity Extremity Narrative: 1-2+ bilateral lower extremity edema, symmetric. Neuro Neuro Narrative: No focal neurologic deficits. Sensorium / Orientation: alert Psych mental status grossly normal Skin no rashes or lesions noted MDM MDM MDM Narrative Medical decision making narrative: Patient placed on quality assurance monitor. Head CT obtained given the patient's confusion. Labwork obtained to evaluate for leukocytosis, anemia, and electrolyte derangement. Urinalysis obtained given her confusion and recent UTI. Chest x-ray and left shoulder x-rays obtained given pain. She is given normal saline. Lab Data Attestation: I reviewed the patient's lab results. Labs: Laboratory Results - last 24 hr 08/19/22 08/19/22 08/19/22 09:50 09:50 10:34 WBC 8.2 RBC 3.10 L Hgb 10.2 L Hct 30.4 L MCV 98.1 MCH 32.9 H MCHC 33.6 RDW Std Deviation 43.8 RDW Coeff of Erma 12.1 Plt Count 183 MPV 9.8 Immature Gran % (Auto) 1.600 H Neut % (Auto) 74.5 H Lymph % (Auto) 12.0 L [place] % (Auto) 10.7 H Eos % (Auto) 1.0 Baso % (Auto) 0.2 Absolute Neuts (auto) 6.1 Absolute Lymphs (auto) 0.98 Nucleated RBC % 0 Sodium 127 L Potassium 3.1 L Chloride 96 L Carbon Dioxide 21.0 Anion Gap 10 BUN 50 H Creatinine 2.19 H Estim Creat Clear Calc 16.47 Est GFR (MDRD) Af Amer 28 L Est GFR (MDRD) Non-Af 23 L BUN/Creatinine Ratio 22.8 H Glucose 110 H Lactic Acid 1.1 Calcium 8.7 Urine Color Urine Clarity Urine pH Ur Specific Trinity Urine Protein Urine Glucose (UA) Urine Ketones Urine Occult Blood Urine Nitrite Urine Bilirubin Urine Urobilinogen Ur Leukocyte Esterase Urine RBC Urine WBC Ur Squamous Epith Cells Urine Bacteria Urine Mucus 08/19/22 11:00 WBC RBC Hgb Hct MCV MCH MCHC RDW Std Deviation RDW Coeff of Erma Plt Count MPV Immature Gran % (Auto) Neut % (Auto) Lymph % (Auto) [place] % (Auto) Eos % (Auto) Baso % (Auto) Absolute Neuts (auto) Absolute Lymphs (auto) Nucleated RBC % Sodium Potassium Chloride Carbon Dioxide Anion Gap BUN Creatinine Estim Creat Clear Calc Est GFR (MDRD) Af Amer Est GFR (MDRD) Non-Af BUN/Creatinine Ratio Glucose Lactic Acid Calcium Urine Color Yellow Urine Clarity Sl. Cloudy Urine pH 6.0 Ur Specific Trinity 1.010 Urine Protein Negative Urine Glucose (UA) Normal Urine Ketones Negative Urine Occult Blood Negative Urine Nitrite Negative Urine Bilirubin Negative Urine Urobilinogen Normal Ur Leukocyte Esterase Negative Urine RBC 0 SEEN Urine WBC 0 SEEN Ur Squamous Epith Cells 0-5 SEEN Urine Bacteria 0 SEEN Urine Mucus 0 SEEN Radiography Chest X-Ray - ED: 1 View, Read by ED Physician, Chronic Changes and No Infiltrates Diagnostic Testing: Clinical Impression(s) from Imaging Studies Brain CT 08/19/22 10:22 IMPRESSION: Chronic involutional changes of the brain. Electronically Signed: Garth Everett MD at 11:36 EDT , Shoulder X-Ray 08/19/22 10:24 IMPRESSION: Severe DJD of the left shoulder. Electronically Signed: Garth Everett MD at 11:47 EDT , Chest X-Ray 08/19/22 11:20 IMPRESSION: Degenerative changes, as described above. No demonstrated acute cardiopulmonary process. Electronically Signed: Garth Everett MD at 11:46 EDT Reading Location ID and State: [facility] / [place] , Service support , Differential Diagnosis Differential Diagnosis: Sepsis Why less likely: Normal blood pressure, normal lactic acid, normal white count. Differential Diagnosis: UTI Why less likely: No sign of infection on current urinalysis. Treatment and Re-Evaluation :: CBC reveals normal white count. Hemoglobin today is 10.3, down from 12.9 one week ago. When asked patient does report having dark stools recently. Stool guaiac is sent. This is negative. Chemistry studies significant for a sodium of 127. This is down from a sodium of 136 one week ago. Potassium is 3.1 and this is replaced IV. Creatinine today is 2.19, improved from prior creatinine of 2.53. Urinalysis today reveals no evidence of infection. Lactic acid is normal. Chest x-ray per my interpretation reveals pacemaker to be in good position. Chronic changes noted with no acute findings. Radiology interpretation is reviewed and agrees. Left shoulder x-rays are obtained and reveal no evidence of acute fracture. Per my interpretation arthritic changes are noted in radiology interpretation concurs. CT scan of the head reveals no acute findings. With patient having weakness and confusion, I will speak with the hospitalist for admission. Her sodium and potassium levels are being corrected. At this time I see no evidence of acute infection. Discharge Plan Triage Chief Complaint: Weakness ED Provider: Ramona Albright Dx/Rx/DC Orders Clinical Impression: Confusion, Weakness, Acute hyponatremia, Acute hypokalemia Prescriptions: No Action carbidopa-levodopa 1 EACH tablet 1 tab PO BID pantoprazole 40 MG tablet 40 mg PO BID potassium chloride 20 MEQ tablet 10 meq PO QODAY atorvastatin 10 mg tablet 10 mg PO QHS doxycycline hyclate [Vibramycin] 100 mg Capsule 100 mg PO BID copper gluconate 2 mg Tablet 4 mg PO DAILY cholecalciferol (vitamin D3) [Vitamin D3] 50 mcg (2,000 unit) Tablet 50 mcg PO DAILY ferrous sulfate 325 MG tablet 325 mg PO BIDCM Qty: 0 0RF losartan-hydrochlorothiazide 50-12.5 mg tablet Myrbetriq 50 mg tablet extended release 24 hr 50 mg PO BID Label Comments: TAKE 2 TABLETS BY MOUTH ONCE DAILY trazodone 100 mg Tablet 100 mg PO QHS cephalexin 500 mg capsule 500 mg PO BID Qty: 4 0RF nitrofurantoin monohyd/m-cryst [Macrobid] 100 mg capsule 100 mg PO BID 7 Days Qty: 20 0RF Rx Instructions: must administer with a meal/food Primary Care Provider: Clau Baca Referrals: Clau Baca MD [Primary Care Provider] - Disposition Disposition: Acute Care Hospital [facility] What to do if you have Problems For any increased pain, shortness of breath, bleeding, nausea or vomiting, chestpain, or any unexpected problems, contact your Primary Care Provider. Call [facility] ([phone]) or report to the closest Emergency Room. Call 911 if necessary. 08/19/222136 <Electronically signed by Ramona Albright MD> Cosigner Signature (if applicable): CC: Dr. Clau Baca MD ~ Signed [facility] Work Phone: [phone]) 400-552603-17-2023 Evaluation note* Diagnosis Onset Date Resolution Status Debility acute Generalized weakness acute Acute hypotension resolved Acute prerenal azotemia reso lved Acute renal failure superimp osed on stage 3a chronic kidney disease resolved Decreased oral intake resolv ed Hypokalemia resolved Melena resolved Acute hypokalemia acute Acute hyponatremia acute Confusion acute Weakness acute [facility] Work Phone: [phone]) 939-712103-10-[address] Yun [facility] August 12, 2022 9:11pm Note Date/Time August 12, 2022 6:5 9pm [facility] Medical Records Department [address] [place] [id number] Emergency Department Summary 08/12/22 MR#: [id number] Acct: [id number] Name: MAIA NIETO Rep #:[id number] : [id number] 77 From: Renzo Yun MD PCP: Dr. Clau Baca MD Status:REG E R Location: ED HPI History of Present Illness Chief Complaint: Weakness Informant: patient and family Narrative Narrative: History is from patient and daughter and son. They brought her in because she fell out of her bed and has a small contusion near the right eye. She seems to be a little bit more confused than normal. This is happened with UTIs before. She states she always has frequent urinationand this is unchanged. The daughters feels that she may have been just mildly confused during the day yesterday but it seemed better in the evening. They ateat [employer]. And everything seemed fine. Today she is just not as quick as normal. I did asked the patient about orientation questions. She is oriented x3. She knows the president. She states she wished Olvin was the president but she knows Ceasar is. The family states that is pretty normal. So it sounds like her mild confusion is waxing and waning. This patient does live independently and is normally quite sharp. Patient states she did fall out of bed. She hit her head. But she does not feel like she hurt herself. She admits to being a little bit more tired than normal. She is not on any anticoagulation. Family verifies that. No real recent illness. The urine frequency is chronic [facility] Medical History Anxiety CAD (coronary artery disease) Depression Dyspnea GERD (gastroesophageal reflux disease) GI bleed HTN (hypertension) Hyperlipidemia Iron deficiency anemia Irregular heart beat Kidney stones Osteoarthritis Pacemaker Parkinson disease Post-menopausal Restless legs Rheumatoid arthritis Home Medications carbidopa 25 mg-levodopa 100 mg tablet 1 tab PO BID restless legs 11/29/18 [History Last Taken 05/01/21] pantoprazole 40 mg tablet,delayed release 40 mg PO BID gerd 03/01/19 [History Last Taken 05/01/21] potassium chloride 20 mEq tablet,extended release(part/cryst) 10 meq PO QODAY supplement 03/28/19 [History Last Taken Unknown] atorvastatin 10 mg tablet 10 mg PO QHS cholesterol 05/01/21 [History Last Taken Unknown] cholecalciferol (vitamin D3) 50 mcg (2,000 unit) tablet (Vitamin D3) 50 mcg PO DAILY supplement 05/01/21 [History Last Taken Unknown] copper gluconate 2 mg tablet 4 mg PO DAILY supplement 05/01/21 [History Last Taken Unknown] doxycycline hyclate 100 mg capsule (Vibramycin) 100 mg PO BID antibiotic 05/01/21 [History Last Taken Unknown] ferrous sulfate 325 mg (65 mg iron) tablet 325 mg PO BIDCM anemia #0 tabs 05/06/21 [Rx Last Taken 03/01/19] losartan 50 mg-hydrochlorothiazide 12.5 mg tablet tab 05/30/22 [History Last Taken Unknown] mirabegron 50 mg tablet,extended release 24 hr (Myrbetriq) 50 mg PO BID 05/30/22[History Last Taken Unknown] trazodone 100 mg tablet 100 mg PO QHS 05/30/22 [History Last Taken Unknown] cephalexin 500 mg capsule 500 mg PO BID #4 caps 06/02/22 [Rx Last Taken Unknown] nitrofurantoin monohydrate/macrocrystals 100 mg capsule (Macrobid) 100 mg PO BID7 days #20 caps 08/12/22 [Rx Last Taken Unknown] Allergy/AdvReac Type Severity Reaction Status Date / Time amoxicillin Allergy Itching Verified 08/12/22 17:54 Penicillins Allergy Itching Verified 08/12/22 17:54 Family History Other Diabetes Hypertension Surgical History History of total knee replacement (TKR) Hx of CABG S/P hysterectomy Social History household members: none housing: house Smoking Status: Never smoker substance use type: does not use ROS ROS ED Constitutional Constitutional ED: Denies chills, fever(s) or subjective Eyes Eyes: Denies change in vision ENT ENT ED: Denies rhinorrhea or sore throat Cardiovascular Cardiovascular: Denies chest pain or palpitations Respiratory/Chest Respiratory/Chest: Denies cough or dyspnea Gastrointestinal Gastrointestinal: Denies abdominal pain, diarrhea, nausea or vomiting Genitourinary Genitourinary ED: Reports urinary frequency; Denies dysuria or hematuria Musculoskeletal Musculoskeletal: Denies back pain, myalgias or neck pain Integumentary Reports other Details: Small contusion to lateral portion of right eyebrow. ; Denies rash Neurologic Neurologic: Denies headache(s), paresthesias or weakness Endocrine Endocrinology: Denies polydipsia or polyuria Hematologic/Lymphatic Hematologic/Lymphatic: Denies easy bleeding or easy bruising Allergic/Immunologic Allergic/Immunologic ED: Denies urticaria EXAM Physical Exam Narrative Exam Narrative: Patient is awake alert and appropriate in bed. She seems very quick. She is very interactive. HEENT does show a small contusion on the lateral aspect of the right eyebrow. But no step-off. No other signs of trauma. Mucous membranes are minimally dry. Eyes show no icterus subconjunctival hemorrhage or pallor. Neck shows no tenderness or pain with motion. Lungs are clear bilaterally no pain with a deep breath. Oxygen saturation are 94 to 95% on room air showing no hypoxia. Heart is regular. Rate is about 95. I do not hear a murmur. Pulses peripherally are normal. Abdomen is thin soft nondistended nontender. No pulsatile mass. No bruit. Normal bowel sounds. shows no suprapubic or CVA tenderness. Extremities show no sign of trauma or pain with motion. No pain with pelvis compression. Neurologically she is awake and alert to person place time situation and president [facility]. Const Vital Signs: 08/12/22 17:50 08/12/22 18:05 08/12/22 19:47 Temperature 97.9 F 97.9 F Temperature Source Temporal Temporal Pulse Rate 100 91 Respiratory Rate 18 18 Respiratory Effort Normal Respiratory Pattern Normal Blood Pressure 110/73 125/54 H Blood Pressure Mean 85 77 Pulse Ox 94 100 Oxygen Delivery Method Room Air Room Air MDM MDM MDM Narrative Medical decision making narrative: My independent interpretation of her CT scan of the head without contrast shows no acute process. No sign of fracture or bleeding. Official reading is chronicinvolutional changes. My independent interpretation of the patient's chest x-ray shows no sign of infiltrate pneumothorax or failure. Final reading by radiology as no acute cardiopulmonary disease or major interval change. 9 Blood work shows minimal elevation white count at 11.3 which is nonspecific. Hemoglobin platelets are normal. Potassium was a bit low and this was replaced. She also had a bump again her creatinine and BUN. She has had it this high before. But she is not nauseated. She was given IV fluids. She is urinating well. Your did show positive lites with increased white cells and 2+ bacteria along with leukocyte Estrace. This urinalysis along with her symptoms and history of UTIs will prompt me to treat this. She does have history of allergy to penicillin. She has been on Macrobid without problems. I looked at a prior culture and she had E. coli that was sensitive to Macrobid so I will we will start this at this time. I did talk with her and her family. They would all prefer her to go home. She is going to go stay with her daughter. We discussed that if she gets any more return of confusion, weakness, nausea vomiting, fevers or any other concerns sheshould come back. History & Record Review Discussion w/independent historian: Family Lab Data Attestation: I reviewed the patient's lab results. Labs: Laboratory Results - last 24 hr 08/12/22 08/12/22 08/12/22 18:10 18:10 20:20 WBC 11.3 H RBC 3.84 L Hgb 12.9 Hct 37.8 MCV 98.4 MCH 33.6 H MCHC 34.1 RDW Std Deviation 44.9 H RDW Coeff of Erma 12.5 Plt Count 161 MPV 11.0 Immature Gran % (Auto) 0.400 Neut % (Auto) 88.3 H Lymph % (Auto) 6.6 L [place] % (Auto) 4.4 Eos % (Auto) 0.1 Baso % (Auto) 0.2 Absolute Neuts (auto) 10.0 H Absolute Lymphs (auto) 0.75 L Nucleated RBC % 0 Sodium 136 Potassium 3.1 L Chloride 99 Carbon Dioxide 22.0 Anion Gap 15 BUN 78 H Creatinine 2.53 H Estim Creat Clear Calc 14.26 Est GFR (MDRD) Af Amer 24 L Est GFR (MDRD) Non-Af 20 L BUN/Creatinine Ratio 30.8 H Glucose 159 H Calcium 9.1 Urine Color Yellow Urine Clarity Clear Urine pH 6.0 Ur Specific [place] 1.015 Urine Protein 15 H Urine Glucose (UA) Normal Urine Ketones Negative Urine Occult Blood 10 H Urine Nitrite Positive H Urine Bilirubin Negative Urine Urobilinogen Normal Ur Leukocyte Esterase 500 H Urine RBC 0 SEEN Urine WBC 5-10 SEEN Ur Squamous Epith Cells 0-5 SEEN Urine Bacteria 2+ Urine Mucus 0 SEEN Radiography Diagnostic Testing: Clinical Impression(s) from Imaging Studies Brain CT 08/12/22 18:11 IMPRESSION: Chronic involutional changes without evidence of acute intracranial or calvarial abnormality. No major interval change. Electronically Signed: John Arango DO at 18:49 EST Reading Location ID and State: [address] [place] [address] Tel [phone], Service support , Chest X-Ray 08/12/22 18:15 IMPRESSION: No acute cardiopulmonary disease or major interval change. Electronically Signed: John Arango DO at 18:40 EST Reading Location ID and State: [address] [place] [address] Tel [phone], Service support , Discharge Plan Triage Chief Complaint: Weakness ED Provider: Renzo Yun Dx/Rx/DC Orders Clinical Impression: Acute UTI, Dehydration Instructions: Urinary Tract Infections in Women Prescriptions: New nitrofurantoin monohyd/m-cryst [Macrobid] 100 mg capsule 100 mg PO BID 7 Days Qty: 20 0RF Rx Instructions: must administer with a meal/food No Action carbidopa-levodopa 1 EACH tablet 1 tab PO BID pantoprazole 40 MG tablet 40 mg PO BID potassium chloride 20 MEQ tablet 10 meq PO QODAY atorvastatin 10 mg tablet 10 mg PO QHS doxycycline hyclate [Vibramycin] 100 mg Capsule 100 mg PO BID copper gluconate 2 mg Tablet 4 mg PO DAILY cholecalciferol (vitamin D3) [Vitamin D3] 50 mcg (2,000 unit) Tablet 50 mcg PO DAILY ferrous sulfate 325 MG tablet 325 mg PO BIDCM Qty: 0 0RF losartan-hydrochlorothiazide 50-12.5 mg tablet Myrbetriq 50 mg tablet extended release 24 hr 50 mg PO BID Label Comments: TAKE 2 TABLETS BY MOUTH ONCE DAILY trazodone 100 mg Tablet 100 mg PO QHS cephalexin 500 mg capsule 500 mg PO BID Qty: 4 0RF Primary Care Provider: Clau Baca Referrals: Clau Baca MD [Primary Care Provider] - 3-5 Days Disposition Disposition: Home, Self Care What to do if you have Problems For any increased pain, shortness of breath, bleeding, nausea or vomiting, chestpain, or any unexpected problems, contact your Primary Care Provider. Call [facility] ([phone]) or report to the closest Emergency Room. Call 911 if necessary. 08/12/222110 <Electronically signed by Renzo Yun MD> Cosigner Signature (if applicable): CC: Dr. Clau Baca MD ~ Signed [facility] Work Phone: [phone]) 661-754503-10-2023 Evaluation note* Diagnosis Onset Date Resolution Status Debility acute Generalized weakness acute Acute hypotension resolved Acute prerenal azotemia reso lved Acute renal failure superimp osed on stage 3a chronic kidney disease resolved Decreased oral intake resolv ed Hypokalemia resolved Melena resolved [facility] Work Phone: 1([phone]) 901-730003-07-2023 Miscellaneous Notes* Telephone Encounter - Marcela Hidalgo LPN - 08/09/2022 9:55 AM EST Patient has been identified by name and date of : No Patient phones for refill(s): Requested Prescriptions Pending Prescriptions Disp Refills potassium chloride (K-TAB) 10 mEq tablet 90 tablet 3 Sig: Take 1 tablet by mouth once daily. Take with lasix Date of last office visit in primary care: 06/16/22 Last 2 Encounter Wt Readings: Date: Wt: 06/16/2022 59 kg (130 lb) 06/14/2022 59.9 kg (132 lb) Previous labs/tests for medication: Not applicable Please advise. Thank you. Marcela Hidalgo LPN [facility]* Vijaya Huntley LPN - 07/12/2022 1:46 PM EST Patient presents with: Imm/Inj Pt is identified by name and birthdate: Yes. Allergies and medications reviewed. Latex allergy? No. Does this patient have: Unplanned weight loss or gain of greater than 10 pounds, or a change of appetite over the last year? No Does the patient have any concerns about safety in the home/falls? Not at risk for falls Has the patient fallen in the past year? No Does the patient have difficulty performing or completing routine daily living activities? No Does this patient have concerns about personal safety? No Is patient having pain? Pain: No=0 (pain 0 on a scale of 0-10). Health Maintenance: Reviewed and updated. Does patient have MyChart access or Caregiver proxy: yes Pt/Caregiver willingness and readiness to learn assessed: Yes. Barriers: none Cyanocobalamin injection administered, left Deltoid,tolerated well, no immediate adverse reactions noted. Vijaya Huntley LPN documented in [facility] encounterL[facility]01-27-[facility] Nurse Note* Huey Mariscal RN - 07/01/2022 9:07 AM EST Unable to get IV access 4 attempts documented in this encounterL[facility]01-10-2023 Miscellaneous Notes* Telephone Encounter - Lata Marina LPN - 06/14/2022 12:39 PM EST Called daughter, she will bring pt back in for additional labs. Lata Marina LPN * Telephone Encounter - Raman Caruso DO - 06/14/2022 12:31 PM EST She had CBC, but iron and copper not done. Can she come back for those? Raman Caruso DO documented in [facility] encounterL[facility]01-[facility]23 Nurse Note* Vijaya Huntley LPN - 06/14/2022 11:45 AM EST Patient presents with: Imm/Inj Pt is identified by name and birthdate: Yes. Allergies and medications reviewed. Latex allergy? No. Does this patient have: Unplanned weight loss or gain of greater than 10 pounds, or a change of appetite over the last year? No Does the patient have any concerns about safety in the home/falls? At risk due to: unsteady gait and imbalance Has the patient fallen in the past year? Yes: Patient has the following symptoms: provider notified Does the patient have difficulty performing or completing routine daily living activities? No Does this patient have concerns about personal safety? No Is patient having pain? Pain: No=0 (pain 0 on a scale of 0-10). Health Maintenance: Reviewed and updated. Does patient have MyChart access or Caregiver proxy: yes Pt/Caregiver willingness and readiness to learn assessed: Yes. Barriers: none cyanocobalamin injection administered, right Deltoid,tolerated well, no immediate adverse reactionsnoted. Vijaya Huntley LPN documented in this encounterL[facility]01-05-2023 Miscellaneous Notes* Telephone Encounter - Sheeba Pang Ma - 06/09/2022 3:51 PM EST Left detailed message on [employer] (formerly [employer]). * Telephone Encounter - Eryn Elliott APRN.CNP - 06/09/2022 3:06 PM EST Noted and ok for previous delay. Eryn Elliott APRN.ARBEN * Telephone Encounter - April Saenz RN - 06/09/2022 8:45 AM EST Humaira SW from [facility] calls and is asking for a verbal order to delay care for SW. Humaria was unable to see patient due to holidays previously. Please review and advise, April Saenz RN documented in this encounterLakehealth [facility]01-03-2023 Miscellaneous Notes* Telephone Encounter - Stefany Williamson RN - 06/07/2022 2:21 PM EST Yanely OT with [facility] calls to let provider know that patient was seen for 1 wk 1 only. Patient feelslike she is doing well and has enough family support that she doesn't need any further OT services at this time. Stefany Williamson RN documented in this encounterLakehealth Tripoint [facility] Center01-03-2023 Miscellaneous Notes* Telephone Encounter - Stefany Williamson RN - 06/07/2022 9:35 AM EST Malorie calls back and message reviewed. Malorie to have patient call provider's office to schedule post follow up hospital visit. Stefany Williamson RN * Telephone Encounter - Gunjan Dey RN - 06/07/2022 9:17 AM EST Called and left a detailed voicemail notifying Malorie [facility] of providers message. Hospital phonenumber was left in case she had any questions. Gunjan Dey RN * Telephone Encounter - Eryn Elliott APRN.ARBEN - 06/03/2022 3:18 PM EST Patient really needs a post hospital visit to make sure all lab work that is drawn is appropriate. Is she able to have a visit in the near future? Thank you Eryn Elliott APRN.ARBEN * Telephone Encounter - Gunjan Dey RN - 06/03/2022 2:47 PM EST Malorie [facility] nurse called in and reports the Pt was discharged from the hospital yesterday for dehydration and hypotension, Pts Lasix was put on hold due to the dehydration. Pt also had a UTI and is almost done with Keflex. They were also +for occult blood. The Pt is supposed to be getting blood work next week and they wanted to know if the provider wanted them to do that when they go in and see the Pt, because they would need orders for that. The will be seeing the Pt once a week for 4 weeks to check for UTI symptoms and bleeding. documented in this encounterLakehealth [facility]point [facility] Center12-29-2022 Evaluation note* Diagnosis Onset Date Resolution Status Acute hypotension acute Acute prerenal azotemia acut e Acute renal failure superimp osed on stage 3a chronic kidney disease acute Debility acute Decreased oral intake acute Generalized weakness acute Hypokalemia acute Melena acute [facility] Work Phone: 1(149) 345-241512-28-2022 Miscellaneous Notes* Telephone Encounter - Liz Kern LPN - 06/01/2022 1:44 PM EST Trang aware of same. * Telephone Encounter - Pat Priest APRN.CNP - 06/01/2022 1:15 PM EST Yes, we will follow. Please let them know. Thanks! * Telephone Encounter - Juno Lewis RN - 06/01/2022 12:56 PM EST Trang- [facility] HH- reports they received a referral from [facility] for Chcf, PT, OT, SW. Reports patient will be discharged tomorrow. HH would like to do start of care on 06-03. Asking if pcp agreeable to follow. Please phone Trang with verbal. documented in this encounterLakehealth Tripoint Medical Center12-27-2022 Miscellaneous Notes* Telephone Encounter - Shyanne Elliott APRN.CNP - 05/31/2022 2:08 PM EST Patient admitted to [facility] yesterday, 05/30 Shyanne Elliott APRN.CNP * Telephone Encounter - April Saenz RN - 05/30/2022 9:25 AM EST Patient's Daughter Cristina calls to report that patient is very pale and weak. Patient has a history of low hemoglobin and daughter is worried that hemoglobin is low. Cristian asking if order can be placed for patient to get hemoglobin checked? Advised daughter that if patient is that weak and pale, patient needs to be seen in ER. Cristina voiced understanding. Cristina states that she will wait and see how it goes today and give office a call back tomorrow. Please review and advise, April Saenz RN documented in this encounterLakehealth [facility]point [facility] Center12-26-2022 Evaluation note* Diagnosis Onset Date Resolution Status Acute hypotension acute Acute prerenal azotemia acut e Acute renal failure superimp osed on stage 3a chronic kidney disease acute [facility] Work Phone: 1(980) 796-127112-13-2022 History of Present illness Narrative* Vijaya Huntley LPN - 05/17/2022 2:01 PM EST Patient presents with: Imm/Inj Pt is identified by name and birthdate: Yes. Allergies and medications reviewed. Latex allergy? No. Does this patient have: Unplanned weight loss or gain of greater than 10 pounds, or a change of appetite over the last year? No Does the patient have any concerns about safety in the home/falls? Uses walker Has the patient fallen in the past year? No Does the patient have difficulty performing or completing routine daily living activities? No Does this patient have concerns about personal safety? No Is patient having pain? Pain: No=0 (pain 0 on a scale of 0-10). Health Maintenance: Reviewed and updated. Does patient have MyChart access or Caregiver proxy: yes Pt/Caregiver willingness and readiness to learn assessed: Yes. Barriers: none cyanocobalamin injection administered, left deltoid,tolerated well, no immediate adverse reactions noted. Vijaya Huntley LPN documented in this encounterLakehealth [facility]point Medical Center12-08-2022 Miscellaneous Notes* Telephone Encounter - Eryn Elliott APRN.ARBEN - 05/12/2022 3:15 PM EST Blood pressure currently controlled continue current medications and follow up as scheduled Thank you Eryn Elliott APRN.CNP * Telephone Encounter - Phyllis Guo LPN - 05/12/2022 1:30 PM EST Manual Readin/75 Pulse: 77 Reason for blood pressure check - Last BP elevated Patient is: Taking medication as prescribed Yes Took medication today Yes If no, date medication last taken N/A Experiencing side effects No BP was elevated at last appt 04/12/22. No BP medication changes were made at that time. Taking all medication as prescribed. Denies any chest pain, shortness of breath, dizziness, or headaches. No caffeine use. No personal history of tobacco use; no current exposure. Alert and oriented. Pt has been identified by name and birthdate: Yes Allergies reviewed: Yes Latex allergy: no. Medication - prescribed and OTC reviewed and updated: Yes Do you need any prescription refills prior to your next visit: No Health Maintenance: Reviewed and not up to date and provider notified Patient advised to continue with current medications and would be contacted if any further instructions after review by Dr oracle fusion developer. Phyllis Guo LPN documented in this encounterLakehealth [facility] Center12-08-2022 History of Present illness Narrative* Phyllis Guo LPN - 05/12/2022 1:23 PM EST Manual Readin/75 Pulse: 77 Reason for blood pressure check - Last BP elevated Patient is: Taking medication as prescribed Yes Took medication today Yes If no, date medication last taken N/A Experiencing side effects No BP was elevated at last appt 04/12/22. No BP medication changes were made at that time. Taking all medication as prescribed. Denies any chest pain, shortness of breath, dizziness, or headaches. No caffeine use. No personal history of tobacco use; no current exposure. Alert and oriented. Pt has been identified by name and birthdate: Yes Allergies reviewed: Yes Latex allergy: no. Medication - prescribed and OTC reviewed and updated: Yes Do you need any prescription refills prior to your next visit: No Health Maintenance: Reviewed and not up to date and provider notified Patient advised to continue with current medications and would be contacted if any further instructions after review by Dr oracle fusion developer. Phyllis Guo LPN documented in this encounterLakehealth Tripoint Medical Center11-18-2022 Miscellaneous Notes* Telephone Encounter - Noelle Deluca RN - 04/22/2022 11:17 AM EST Patient's daughter Cristina notified of provider's response below. Noelle Deluca RN COPIED: Clau Baca MD 04/20/2022 8:07 PM EST The labs are mostly stable, not much changed from before , def there is some inflammation..iron is normal. Regards, Clau Baca MD documented in this encounterLakehealth [facility]point [facility] Center11-15-2022 Nurse Note* Vijaya Huntley LPN - 04/19/2022 12:52 PM EST Patient presents with: Imm/Inj Pt is identified by name and birthdate: Yes. Allergies and medications reviewed. Latex allergy? No. Does this patient have: Unplanned weight loss or gain of greater than 10 pounds, or a change of appetite over the last year? No Does the patient have any concerns about safety in the home/falls? Not at risk for falls Has the patient fallen in the past year? No Does the patient have difficulty performing or completing routine daily living activities? No Does this patient have concerns about personal safety? No Is patient having pain? Pain: No=0 (pain 0 on a scale of 0-10). Health Maintenance: Reviewed and updated. Does patient have MyChart access or Caregiver proxy: yes Pt/Caregiver willingness and readiness to learn assessed: Yes. Barriers: none Cyanocobalamin injection administered, right Deltoid,tolerated well, no immediate adverse reactionsnoted. Vijaya Huntley LPN documented in this encounterLakehealth Tripoint Medical Center11-01-2022 History of Present illness Narrative* Tree Chaparro RN - 04/05/2022 2:09 PM EDT [facility] Engagement Provider Action/FYI: Spk with daughter Cristina, she noted Coty is doing well, no symptom concerns or needs. Coty has Appt 04/12/[address] Baca. My Chart [employer] Monitoring questionnaire location reminder provided, Cristina appreciated the call. Contact Made with Patient: Yes Patient identified by name and . Discussed care with daughter Matias steward name is Carmelo Leavitt RN your Dual Rate Supervisor from Clau Baca MD [facility]. I am reaching out today because I noticed it has been a few weeks since I have seenany responses from you on your questionnaire. I wanted to check on you and make sure you are doing well, and to remind you that your Clau Baca MD recommended this program for you so that you can stay better connected to your health. I will be monitoring your responses on the questionnaire to make sure we are not seeing any changes in your health that your Primary Care Physician needs to know about, or looking for improvements and keeping Clau Baca MD informed about it all. You and I will check in together anytime a problem arises, and determine a solution. I am here to help you stay healthy, and stay connected to your doctor's office. How can I help you in this program? The patient informs that she forgot. Please take some time today to answer the questionnaire. I am looking forward to receiving your answers. If I do not receive your answers in the next 2 business days I will check back in. ---END CALL Carmelo Leavitt RN April 05, 2022 2:09 PM documented in this encounterLakehealth Tripoint [facility] Center10-18-2022 Nurse Note* Vijaya Huntley LPN - 03/22/2022 11:58 AM EDT Patient presents with: Imm/Inj Pt is identified by name and birthdate: Yes. Allergies and medications reviewed. Latex allergy? No. Does this patient have: Unplanned weight loss or gain of greater than 10 pounds, or a change of appetite over the last year? No Does the patient have any concerns about safety in the home/falls? Not at risk for falls Has the patient fallen in the past year? No Does the patient have difficulty performing or completing routine daily living activities? No Does this patient have concerns about personal safety? No Is patient having pain? Pain: No=0 (pain 0 on a scale of 0-10). Health Maintenance: Reviewed and updated. Does patient have MyChart access or Caregiver proxy: yes Pt/Caregiver willingness and readiness to learn assessed: Yes. Barriers: none Cyanocobalamin injection administered, left deltoid, tolerated well, no immediate adverse reactionsnoted. Vijaya Huntley LPN documented in this encounterLakehealth [facility] Center10-11-2022 Miscellaneous Notes* Telephone Encounter - Thalia Estrada LPN - 03/15/2022 8:20 AM EDT Spoke with Reyna and she will bring in Coty for blood work today. documented in this encounterLakehealth Tripoint Medical Center10-11-2022 Miscellaneous Notes* Telephone Encounter - Thalia Estrada LPN - 03/15/2022 8:19 AM EDT Patient has been identified by name and date of : Yes Patient phones for refill(s): Requested Prescriptions Pending Prescriptions Disp Refills losartan (COZAAR) 25 mg tablet [Pharmacy Med Name: Losartan Potassium 25 MG Oral Tablet] 90 tablet 0 Sig: Take 1 tablet by mouth once daily Date of last office visit in primary care: 01/10/22 next apt 04/12/22 Last 2 Encounter Wt Readings: Date: Wt: 03/01/2022 59.9 kg (132 lb 1.6 oz) 01/10/2022 62.1 kg (137 lb) Previous labs/tests for medication: Blood Pressure: BUN (mg/dL) Date Value 01/10/2022 35 07/12/2021 31 Sodium (mmol/L) Date Value 01/10/2022 139 07/12/2021 138 Last 1 Encounter BP Readings: Date: BP: 03/01/2022 128/68 Thank you. Thalia Estrada LPN documented in this encounterLakehealth Tripoint Medical Center09-27-2022 History of Present illness Narrative* Avtar Lexus Hearn, DO - 03/01/2022 1:15 PM EDT [facility] [place] Department of Cardiovascular Medicine SECTION OF REGIONAL CARDIOLOGY Consultation requested by Clau Baca MD for an opinion regarding Maia Nieto. My final recommendations will be communicated back to the requesting physician by way of shared Medical record or letter to requesting physician via US mail. CC: establishment of cardiac care HPI: Maia Nieto is a 76 year old female with a history of PUD/GIB, kidney stones, and Akil-en-Y gastric bypass and AVR for possible aortic stenosis per patient and daughter Myesha Joseph approximately 25 or so years ago and subsequent repeat AVR (homograft #21) and MV repair (Sanchez band29) on 04/22/[address] 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 Postop course complicated by CHB requiring dual-chamber PPM who is here today for establishment of cardiac care. Her last echo was 11/06/20 and has had PPM followed by Dr. Fischer at [facility]. She apparently had a small burden of atrial fibrillation noted on pacer check remotely and after long discussion between the patient, daughter and Dr. Owen the decision was to continue observing for any recurrent events. She was not placed on anticoagulation after this discussion for more conservative approach. She has been doing very well without any problems. She is relatively sedentary but otherwise no significant issues. The patient denies any regular aerobic exercise Patient is currently asymptomatic. Patient denies SOB, chest pain, dizziness, lightheadedness, palpitations, lower extremity edema, PND, orthopnea, presyncope, syncope, claudication symptoms, or bleeding issues. PAST MEDICAL HISTORY Diagnosis Date Anemia, iron deficiency Anxiety Aortic stenosis Atrioventricular block, complete (HCC) Calculus of kidney Cardiac pacemaker in situ Coronary atherosclerosis of [place] coronary artery Depression Gastroesophageal reflux disease GERD (gastroesophageal reflux disease) GI bleed H/O gastric bypass History of blood transfusion Hyperlipemia Hypertension Hypotension due to blood loss Kidney stones Moderate protein-calorie malnutrition (HCC) 04/12/2019 History: Post-op problem. Albumin 2.9. Noted on post-op nutrition screen. Assessment: 75% of meals consumed per I/O. Plan: Follow nutrition recs. Moderate protein-calorie malnutrition (HCC) Nonrheumatic aortic (valve) stenosis Overactive bladder Thrombocytopenia (HCC) Thrombocytopenia, unspecified (HCC) PAST SURGICAL HISTORY Procedure Laterality Date CARDIAC PACEMAKER PLACEMENT HX COLONOSCOPY FLX DX W/COLLJ SPEC WHEN PFRMD 12/01/2018 Colonoscopy CYSTOURETHROSCOPY 08/07/2019 stent removal ESOPHAGOGASTRODUODENOSCOPY TRANSORAL DIAGNOSTIC 12/01/2018 EGD LITHOTRIPSY XTRCORP SHOCK WAVE MAMMOGRAM BILATERAL june [id number] lap transgatric endoscopy with clipping at [facility] PAST SURGICAL HISTORY OF bovine aortic valve repalce x 2 PAST SURGICAL HISTORY OF RouxEnY gastric bypass PAST SURGICAL HISTORY OF bilat total knee replacement PAST SURGICAL HISTORY OF hysterectomy and BSO for DUB and prolapse PAST SURGICAL HISTORY OF tummy tuck PAST SURGICAL HISTORY OF mitral valve & aortic root replaced PICC LINE INSERT/CONSULT 04/30/2019 PICC LINE INSERT/CONSULT 11/11/2020 FAMILY HISTORY Problem Relation Age of Onset other (Other) Brother spinal fusion other (Other) Son IBS other (Other) Daughter IBS Heart Mother passed at 44 y/o from rheumatic heart disease SOCIAL HISTORY Social History Tobacco Use Smoking status: Never Smokeless tobacco: Never Vaping Use Vaping Use: Never used Substance Use Topics Alcohol use: Not Currently Drug use: Never ALLERGIES: Penicillins and Amoxacillin [Amoxicillin] CURRENT MEDICATIONS: Current Outpatient Medications Medication Sig ferrous sulfate 325 mg (65 mg iron) tablet Take 1 tablet by mouth daily with breakfast. furosemide (LASIX) 20 mg tablet Take 0.5 tablets by mouth once daily. MYRBETRIQ 50 mg Tb24 Take 50 mg by mouth once daily. doxycycline hyclate (VIBRAMYCIN) 100 mg capsule Take 1 capsule by mouth twice daily atorvastatin (LIPITOR) 10 mg tablet Take 1 tablet by mouth once daily losartan (COZAAR) 25 mg tablet Take 1 tablet by mouth once daily. potassium chloride (K-TAB) 10 mEq tablet Take 1 tablet by mouth once daily. Take with lasix fluticasone (FLONASE) 50 mcg/actuation nasal spray Use 2 Sprays in each nostril once daily as needed for cold/allergy symptoms. Rinse mouth after use. oxybutynin (DITROPAN) 5 mg tablet Take 1 tablet by mouth three times daily. pantoprazole DR (PROTONIX) 40 mg tablet Take 1 tablet by mouth twice daily before meals (0600/1600). carbidopa-levodopa CR (SINEMET CR) 25-100 mg per tablet Take 1 tablet by mouth twice daily. copper citrate 2 mg capsule Take 2 capsules by mouth once daily. Cholecalciferol, Vitamin D3, 50 mcg (2,000 unit) cap Take by mouth once daily. No current facility-administered medications for this visit. ROS: Card: See present history. Pulm: Negative for cough, hemoptysis, wheezing, COPD, dyspnea or shortness of breath Gastro: No nausea, vomiting, or diarrhea GenUr: No history of dysuria, frequency or incontinence Endo: Negative for cold or heat intolerance, polyuria or polydipsia. Neuro: no focal weakness, focal sensory loss, headache, visual changes, seizure activity, ataxia, speech/language loss. Musculoskeletal: Negative for joint or muscle pain, back pain, or swelling. Infect: no fevers, chills, rigors or night sweats. Skin: Negative for lesions, rash, and itching. Heme: Negative for prolonged bleeding, bruising easily or swollen nodes. The remainder of the review of systems is negative. PHYSICAL EXAMINATION: GENERAL: alert cooperative, pleasant oriented x 3 (self, time and place) in no acute distress BP 128/68 Pulse 67 Ht 165.1 cm (5' 5") Wt 59.9 kg (132 lb 1.6 oz) SpO2 100% BMI 21.98 kg/m Last 3 Encounter BP Readings: Date: BP: 03/01/2022 128/68 01/25/2022 132/60 01/10/2022 124/76 Last 3 Encounter Pulse Readings: Date: Pulse: 03/01/2022 67 01/25/2022 79 01/10/2022 64 Last 3 Encounter Wt Readings: Date: Wt: 03/01/2022 59.9 kg (132 lb 1.6 oz) 01/10/2022 62.1 kg (137 lb) 12/28/2021 60.8 kg (134 lb) SKIN: warm, dry, no rash. NECK: supple, no palpable masses, no JVD, carotids well felt, no bruits. CARDIAC: Victoria palpable in the 5th intercostal space mid clavicular line, normal S1 and S2, no murmurs, gallops, or rubs. CHEST: Normal respiratory efforts, lungs clear to auscultation bilaterally. ABDOMEN: Soft, no tenderness, rigidity, or masses. No palpable liver or spleen. Normal bowel sounds, no bruits. NEURO: intact cranial nerves II through XII, no motor or sensory deficits in all 4 extremities. EXTREMITIES: No cyanosis, clubbing, or edema. Peripheral pulses well felt. CARDIAC (& OTHER IMPORTANT) TESTING: Echo 11/06/20: CONCLUSIONS: - Exam indication: Pre op clearance - The left ventricle is mildly dilated. There is mild concentric left ventricular hypertrophy. Left ventricular systolic function is normal. EF = 58 5% (2D biplane) Left ventricular diastolic function was not evaluated due to mitral valve surgery. - The right ventricle is mildly dilated. Right ventricular systolic function is normal. - The left atrial cavity is moderately dilated. - Sanchez Mitral Valve Annuloplasty Ring (size #29). There is mild (1+) mitral valve regurgitation. The peak gradient is 8 mmHg and the mean gradient is 5 mmHg. - Homograft prosthetic aortic valve (size #21). There is trace (trace - 1+) aortic valve regurgitation. The peak gradient is 15 mmHg, the mean gradient is 9 mmHg and the dimensionless valve index is 0.44. - Exam was compared with the prior echocardiographic exam performed on 07/01/2019, no significant change. LABS: Cholesterol, Total (mg/dL) Date Value 01/10/2022 160 06/14/2019 150 HDL Cholesterol (mg/dL) Date Value 01/10/2022 74 06/14/2019 84 LDL Cholesterol (mg/dL) Date Value 01/10/2022 54 06/14/2019 42 Triglyceride (mg/dL) Date Value 01/10/2022 158 06/14/2019 118 ASSESSMENT/PLAN: Status post redo AVR for bioprosthetic PVE 04/22/2019 Last echo 11/06/2020: EF 58%, Sanchez Mitral Valve Annuloplasty Ring (size #29).mild (1+) mitral valve regurgitation. peak gradient is 8 mmHg and the mean gradient is 5 mmHg. Homograft prosthetic aorticvalve (size #21). trace (trace - 1+) aortic valve regurgitation. - 15 mmHg, the mean gradient is 9 mmHg Recheck echo periodically and will get before next visit Status post permanent pacemaker implant At time of above surgery complicated by complete heart block Enroll in local device clinic but continue with Dr. Fischer Small remote AF burden on pacer Watching for any reoccurrence per EP and no anticoagulation at this time Remote GI bleed She is doing very well without complaints from a cardiac standpoint and per her last echocardiogramover a year ago her functions were reasonable. We will continue to monitor her periodically and will repeat echocardiogram in the near future. Thank you for allowing me the privilege of participating in the care of your patient. Please do nothesitate to contact me if there are any questions. Avtar Hearn DO, FACC, FCCP, FACOI Avtar Hearn DO, RIGO, FCCP, FACOI CC: Clau Baca [address] [place] [id number] documented in this encounterLakehealth Tripoint Medical Center09-20-2022 Nurse Note* Vijaya Huntley, DULCE - 02/22/2022 2:06 PM EDT Patient presents with: Imm/Inj Pt is identified by name and birthdate: Yes. Allergies and medications reviewed. Latex allergy? No. Does this patient have: Unplanned weight loss or gain of greater than 10 pounds, or a change of appetite over the last year? No Does the patient have any concerns about safety in the home/falls? At risk for fall Has the patient fallen in the past year? No Does the patient have difficulty performing or completing routine daily living activities? No Does this patient have concerns about personal safety? No Is patient having pain? Pain: No=0 (pain 0 on a scale of 0-10). Health Maintenance: Reviewed and updated. Does patient have MyChart access or Caregiver proxy: yes Pt/Caregiver willingness and readiness to learn assessed: Yes. Barriers: none Cyanocobalamin injection administered, right Deltoid,tolerated well, no immediate adverse reactionsnoted. Vijaya Huntley LPN documented in this encounterLakehealth Tripoint Medical Center09-19-2022 Miscellaneous Notes* Telephone Encounter - Marcela Hidalgo LPN - 02/21/2022 8:27 AM EDT Patient has been identified by name and date of : Yes Patient phones for refill(s): Requested Prescriptions Pending Prescriptions Disp Refills ferrous sulfate 325 mg (65 mg iron) tablet 90 tablet 3 Sig: Take 1 tablet by mouth daily with breakfast. Date of last office visit in primary care: 01/10/22 Last 2 Encounter Wt Readings: Date: Wt: 01/10/2022 62.1 kg (137 lb) 12/28/2021 60.8 kg (134 lb) Previous labs/tests for medication: Not applicable Please advise. Thank you. Marcela Hidalgo LPN documented in this encounterL[facility] Miscellaneous Notes* Telephone Encounter - Marcela Hidalgo LPN - 02/02/2022 7:22 PM EDT Patient has been identified by name and date of : Yes Patient phones for refill(s): Requested Prescriptions Pending Prescriptions Disp Refills ferrous sulfate 325 mg (65 mg iron) tablet 90 tablet 0 Sig: Take 1 tablet by mouth daily with breakfast. Date of last office visit in primary care: 01/10/2022 Last 2 Encounter Wt Readings: Date: Wt: 01/10/2022 62.1 kg (137 lb) 12/28/2021 60.8 kg (134 lb) Previous labs/tests for medication: Not applicable Please advise. Thank you. Marcela Hidalgo LPN documented in this encounterLake[facility]08-23-2022 History of Present illness Narrative* Vijaya Huntley LPN - 01/25/2022 12:26 PM EDT Patient presents with: Imm/Inj Pt is identified by name and birthdate: Yes. Allergies and medications reviewed. Latex allergy? No. Does this patient have: Unplanned weight loss or gain of greater than 10 pounds, or a change of appetite over the last year? No Does the patient have any concerns about safety in the home/falls? At risk due to: unsteady gait Has the patient fallen in the past year? Yes: Does the patient have difficulty performing or completing routine daily living activities? No Does this patient have concerns about personal safety? No Is patient having pain? Pain: No=0 (pain 0 on a scale of 0-10). Health Maintenance: Reviewed and updated. Does patient have MyChart access or Caregiver proxy: yes Pt/Caregiver willingness and readiness to learn assessed: Yes. Barriers: none cyanocobalamin injection administered, left deltoid, tolerated well, no immediate adverse reactionsnoted. Vijaya Huntley LPN documented in this encounterL[facility]08-10-2022 History of Present illness Narrative* Phyllis Guo LPN - 01/12/2022 1:48 PM EDT Patient presents for COVID booster. Denies any problems at this time. Tolerated injection well. Phyllis Guo LPN documented in this encounterL[facility]08-10-2022 Miscellaneous Notes* Telephone Encounter - Sheeba Pang Ma - 01/12/2022 12:20 PM EDT Daughter Cristina notified. * Telephone Encounter - Eryn Elliott APRN.CNP - 01/12/2022 7:54 AM EDT Please let patient know her kidney function continued to decreased. Hold the namenda, take 1/2 of the lasix to equal 10 mg daily and we will recheck in 2 weeks along with a nurse BP check. Thank you Eryn Elliott APRN.CNP documented in this encounterLake[facility]08-08-2022 Miscellaneous Notes* Telephone Encounter - Anabela Angel LPN - 01/10/2022 10:00 AM EDT Daughter notified of provider message. Daughter voiced understanding. Anabela Angel LPN * Telephone Encounter - Sheeba Pang Ma - 01/10/2022 9:50 AM EDT Left message for daughter to return call, please relay message below Please call patient and daughter to remind them to re-establish with cardiology in [place] as previously instructed by Dr. Fischer. I have placed a consult to cardiology order if needed. Thank you Eryn Elliott APRN.CNP documented in this encounterLake[facility]08-08-2022 History of Present illness Narrative* Eryn Elliott APRN.CNP - 01/10/2022 8:14 AM EDT CC: Patient presents with: Recheck: Medication follow up HPI Maia Nieto is a 76 year old female who presents today for routine follow up, but also to discuss a decrease in kidney function noted by hematology. Per patient she does not drink any water because she does not like the taste of this. 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 Nieto indicates that she is feeling well and denies any symptoms referable to elevated blood pressure. Specifically denies headache, chest pain, palpitations, dyspnea, and peripheral edema. Patientdenies any side effects of her medication(s) and is compliant with their regimen. She does not check BP's generally. Maia denies regular aerobic exercise. She watches her diet for sodium, low fat and low cholesterol most of the time. Last 3 Encounter BP Readings: Date: BP: 01/10/2022 124/76 12/28/2021 128/64 12/10/2021 128/70 Pacemaker is checked regularly but has not followed up with cardiology since surgeries. Was instructed by Dr. Fischer to er-establish with cardiology in [place] but has not done so yet. GERD: Controlled with pantoprazole. Denies heartburn, difficulty swallowing, nausea, abdominal pain, or bloating. OAB: Sees urology, Has routine follow up in first week of February. Was started on myrbetriq by urology and patient feels this is helping. Denies pain or difficulty urinating or blood in urine. Patient does have memory issues and lives alone. Uses a walker for ambulation and denies any falls.Does have family checking in with her daily and a life alert necklace. Was started on namenda at last visit. REVIEW OF SYSTEMS General: no fevers, no chills, no night sweats, no recurrent infections, no change in appetite, no change in energy, and no significant changes in weight Respiratory: no cough, no wheezing, no shortness of breath, no hemoptysis Cardiovascular: no chest pain, no chest pressure, no palpitations, and no swelling GI: No nausea, vomiting, or diarrhea : See HPI Endocrine: no fatigue, no weight gain, no weight loss, no polyuria, no polyphagia, and no polydipsia Neurologic: No headache, weakness, numbness, tingling, dizziness, syncope. PHQ2 is 0 PAST MEDICAL HISTORY Diagnosis Date Anemia, iron deficiency Anxiety Aortic stenosis Atrioventricular block, complete (HCC) Calculus of kidney Cardiac pacemaker in situ Coronary atherosclerosis of [place] coronary artery Depression Gastroesophageal reflux disease GERD (gastroesophageal reflux disease) GI bleed H/O gastric bypass History of blood transfusion Hyperlipemia Hypertension Hypotension due to blood loss Kidney stones Moderate protein-calorie malnutrition (HCC) 04/12/2019 History: Post-op problem. Albumin 2.9. Noted on post-op nutrition screen. Assessment: 75% of meals consumed per I/O. Plan: Follow nutrition recs. Moderate protein-calorie malnutrition (HCC) Nonrheumatic aortic (valve) stenosis Overactive bladder Thrombocytopenia (HCC) Thrombocytopenia, unspecified (HCC) PAST SURGICAL HISTORY Procedure Laterality Date CARDIAC PACEMAKER PLACEMENT HX COLONOSCOPY FLX DX W/COLLJ SPEC WHEN PFRMD 12/01/2018 Colonoscopy CYSTOURETHROSCOPY 08/07/2019 stent removal ESOPHAGOGASTRODUODENOSCOPY TRANSORAL DIAGNOSTIC 12/01/2018 EGD LITHOTRIPSY XTRCORP SHOCK WAVE MAMMOGRAM BILATERAL june [id number] lap transgatric endoscopy with clipping at [facility] PAST SURGICAL HISTORY OF bovine aortic valve repalce x 2 PAST SURGICAL HISTORY OF [place] gastric bypass PAST SURGICAL HISTORY OF bilat total knee replacement PAST SURGICAL HISTORY OF hysterectomy and BSO for DUB and prolapse PAST SURGICAL HISTORY OF tummy tuck PAST SURGICAL HISTORY OF mitral valve & aortic root replaced PICC LINE INSERT/CONSULT 04/30/2019 PICC LINE INSERT/CONSULT 11/11/2020 ALLERGIES Penicillins and Amoxacillin [Amoxicillin] MEDICATIONS MYRBETRIQ 50 mg Tb24^Take 50 mg by mouth once daily.^Disp: ^Rfl: memantine (NAMENDA) 5 mg tablet^Take 1 tablet by mouth twice daily.^Disp: 30 tablet^Rfl: 1 doxycycline hyclate (VIBRAMYCIN) 100 mg capsule^Take 1 capsule by mouth twice daily^Disp: 60 capsule^Rfl: 11 atorvastatin (LIPITOR) 10 mg tablet^Take 1 tablet by mouth once daily^Disp: 90 tablet^Rfl: 3 ferrous sulfate 325 mg (65 mg iron) tablet^Take 1 tablet by mouth daily with breakfast.^Disp: 90 tablet^Rfl: 0 losartan (COZAAR) 25 mg tablet^Take 1 tablet by mouth once daily.^Disp: 30 tablet^Rfl: 5 furosemide (LASIX) 20 mg tablet^Take 1 tablet by mouth once daily.^Disp: 90 tablet^Rfl: 3 potassium chloride (K-TAB) 10 mEq tablet^Take 1 tablet by mouth once daily. Take with lasix^Disp: 90 tablet^Rfl: 3 fluticasone (FLONASE) 50 mcg/actuation nasal spray^Use 2 Sprays in each nostril once daily as needed for cold/allergy symptoms. Rinse mouth after use.^Disp: 1 Each^Rfl: 2 zinc sulfate 220 (50) mg capsule^Take 1 capsule by mouth once daily.^Disp: 90 capsule^Rfl: 3 oxybutynin (DITROPAN) 5 mg tablet^Take 1 tablet by mouth three times daily.^Disp: 270 tablet^Rfl: [address] (PROTONIX) 40 mg tablet^Take 1 tablet by mouth twice daily before meals (0600/1600).^Disp: 180 tablet^Rfl: 3 carbidopa-levodopa CR (SINEMET CR) 25-100 mg per tablet^Take 1 tablet by mouth twice daily.^Disp: 180 tablet^Rfl: 3 copper citrate 2 mg capsule^Take 2 capsules by mouth once daily.^Disp: 60 capsule^Rfl: 5 senna (SENOKOT) 8.6 mg tab^Take 2 tablets by mouth daily at bedtime.^Disp: ^Rfl: citalopram hydrobromide (CELEXA) 10 mg tablet^Take 1 tablet by mouth once daily.^Disp: 90 tablet^Rfl: 3 Cholecalciferol, Vitamin D3, (VITAMIN D-3) 2,000 unit cap^Take by mouth once daily.^Disp: ^Rfl: FAMILY HISTORY Problem Relation Age of Onset other (Other) Brother spinal fusion other (Other) Son IBS other (Other) Daughter IBS Heart Mother passed at 44 y/o from rheumatic heart disease Social History Tobacco Use Smoking status: Never Smokeless tobacco: Never Vaping Use Vaping Use: Never used Substance Use Topics Alcohol use: Not Currently Drug use: Never PHYSICAL EXAM BP 124/76 Pulse 64 Resp 16 Wt 62.1 kg (137 lb) BMI 22.80 kg/m General Appearance: well appearing, in no acute distress, alert Skin: Skin color, texture, turgor normal for age; Eyes: PERRLA, conjunctiva pink and moist, no icterus, sclera white, non-injected Lungs: Lungs clear to auscultation. No wheezing, rhonchi, rales. Heart: RRR without murmur, gallop, or rubs. No ectopy Extremities: No deformities, edema, skin discoloration, clubbing or cyanosis. Good capillary refill. Health maintenance reviewed with patient: PNEUMOCOCCAL: 65+(2 - PCV) due on 04/11/2020 LDL CHOLESTEROL due on 06/14/2020 ADVANCE DIRECTIVE DISCUSSION Never done COVID-19 VACCINE(4 - Booster for Pfizer series) due on 07/17/2021 DTAP,TDAP,TD(1 - Tdap) due on 06/16/2022 SHINGRIX VACCINE(1 of 2) due on 06/16/2022 INFLUENZA(1) due on 02/03/2022 ANNUAL PCP TEAM CHRONIC DISEASE VISIT due on 12/10/2022 SERUM CREATININE due on 12/28/2022 HEMOGLOBIN/HEMATOCRIT due on 12/28/2022 DIABETES SCREEN due on 12/28/2024 BONE DENSITY Completed HEPATITIS C SCREENING Completed DATA REVIEWED: Most recent labs ASSESSMENT/PLAN: 1. Stage 3 chronic kidney disease, unspecified whether stage 3a or 3b CKD (HCC) - ICD9: 585.3, ICD10: N18.30 (primary diagnosis) Kidney function further decreased, patient does not drink water, is on a diuretic, and started on namenda a few weeks ago. Will recheck today and depending on results make medication changes. - discussed importance of drinking water and staying hydrated. - BASIC METABOLIC PNL 2. Function kidney decreased - ICD9: 593.9, ICD10: N28.9 As above - BASIC METABOLIC PNL 3. Coronary artery disease involving [place] coronary artery of [place] heart without angina pectoris- ICD9: 414.01, ICD10: I25.10 - stable at this time but needs to re-establish with cardiology as previously instructed. -consult to cardiology - Follow up in 3 months 4. Hyperlipidemia, unspecified hyperlipidemia type - ICD9: 272.4, ICD10: E78.5 - to be determined upon return of lab results - Continue current medication. - Encouraged following a low fat, low cholesterol diet. - Discussed the benefits of regular aerobic exercise and weight loss. - LIPID PANEL BASIC 5. Memory deficit - ICD9: 780.93, ICD10: R41.3 - may need to change dosage of namenda or stop r/t to kidney function. 6. Hyperactivity of bladder - ICD9: 596.51, ICD10: N31.8 Continue to follow up urology as directed by them. 7. Stenosis of prosthetic aortic valve, sequela - ICD9: 909.3, ICD10: T82.857S Consult to cardiology Prescription instructions reviewed with patient as applicable. Potential red flag symptoms discussed with the patient. Reviewed appropriate action plan to take if red flag symptoms occur. Patient agreeable to treatment plan. 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 Insight Monitoring Questionnaire, reminder provided. Contact Made with Patient: Yes Patient identified by name and . Discussed care with daughter Matias steward name is Carmelo Leavitt RN your Dual Rate Supervisor from Clau Baca MD office [facility] the [facility]. I am reaching out today because I noticed it has been a few weeks since I have seenany responses from you on your questionnaire. I wanted to check on you and make sure you are doing well, and to remind you that your Clau Baca MD recommended this program for you so that you can stay better connected to your health. I will be monitoring your responses on the questionnaire to make sure we are not seeing any changes in your health that your Primary Care Physician needs to know about, or looking for improvements and keeping Clau Baca MD informed about it all. You and I will check in together anytime a problem arises, and determine a solution. I am here to help you stay healthy, and stay connected to your doctor's office. How can I help you in this program? The patient informs that she forgot. Please take some time today to answer the questionnaire. I am looking forward to receiving your answers. If I do not receive your answers in the next 2 business days I will check back in. ---END CALL Carmelo Leavitt RN January 05, 2022 4:14 PM documented in this encounterLake[facility]07-26-2022 Miscellaneous Notes* Telephone Encounter - Vijyaa Huntley LPN - 12/28/2021 1:41 PM EDT Spoke with pts. Daughter Cristina , given information concerning serum creatinine results and the needfor her to see her PCP for advice on adjusting her diuretic regimen. Daughter voiced understanding. Vijaya Huntley LPN * Telephone Encounter - Raman Caruso DO - 12/28/2021 1:21 PM EDT Her serum creatinine is mildly elevated. I recommend she contact her PCP for advice on adjusting her diuretic regimen. Raman Caruso DO documented in this [facility]07-26-2022 Nurse Note* Lata Marina LPN - 12/28/2021 12:01 PM EDT Pt here for injection of B12. Given IM in right delt. Pt tolerated well. For all other information regarding today, see today's OV note with Dr Caruso. Lata Marina LPN documented in this encounterL[facility]07-26-2022 History of Present illness Narrative* Raman Caruso DO - 12/28/2021 11:31 AM EDT Hematologic problem(s): 1) Anemia from iron and copper deficiency. HPI: The patient is a 76-year-old female who has a past medical history significant for GERD, gastric bypass (akil-en-Y), peptic ulcer disease (previous GI bleed--required laparoscopic transgastric EGD demonstrating duodenal ulcer that required clipping) hypertension, nephrolithiasis, aortic stenosis (s/p aortic valve replacement in 2002; redo AVR and MRR 04/2019), bacterial endocarditis (strep spp), PPM, Parkinson's disease and chronic kidney disease. Patient was seen by her primary care physician. She had been experiencing weight loss over the lastyear or so. Her appetite was not as good as it was. Routine blood work was obtained and she was found to have significant anemia along with leukopenia (neutropenia and lymphopenia). Patient was referred urgently. Her other medical history is significant for GI bleed. She had presented in the summer of 2018 witha complaint of shortness of breath, fatigue and dark tarry stools. She was taking meloxicam and Advil in addition to aspirin on a daily basis at the time. She was orthostatic and hypotensive and therefore was admitted to [facility]. Hemoglobin was 6.9 g/dL. She underwent an EGD on 12/01/2018 that showed healthy-appearing gastric pouch and a colonoscopy showed in the cecum. CT scan the abdomen and pelvis done without contrast noted any millimeter stone at the ureteropelvic junction and left mild hydronephrosis. In total patient received 6 units of packed red blood cells for continued drop in hemoglobin. She had a bleeding scan that was negative. Urinalysis and culture demonstrated Klebsiella pneumonia infection. She was started on antibiotics. Echocardiogram demonstrated severe stenosis of the aortic valve. Patient was transferred to [facility] on 12/03/2018. She was continued on antibiotics (ceftriaxone). Episodes of hypotension and dizziness continued in hemoglobin dropped to 6.1 and she was given 2 more units of RBCs. A CT angiogram showed no active bleeding. Patient was then transferred to [facility] where she ultimately underwent CT angiogram that revealed an enhancing polypoid lesion in the first segment of the duodenum concerning for slowly bleeding mass. Other findings included trace left pleural effusion as well as evidence of prior cholecystectomy and gastric bypass. Ultimately patient was taken to the OR on 12/21 and underwent laparoscopic transgastric scope and clipping of a bleeding duodenal ulcer. Patient was advised to hold aspirin and continue on Protonix 40 mg twice a day at that time. Patient was readmitted to [facility] for planned redo aortic valve replacement and mitral valve replan her in April 2019. Following surgery she had been doing well but her ICU course postoperatively she developed complete heart block with ventricular rate in 30s. Ultimately sherequired permanent pacemaker placement on 04/29/2019. 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 She was evaluated for this and is undergoing stage replacement. She received a course of IV antibiotic therapy at [facility]. She is scheduled to have an city maintenance manager taken out and the knee replaced in [facility]. Presents for ongoing hematologic management. Interim history: Left knee much better. Aches on occasion. Uses wheeled walker. Living independently in her home. Doesn't drive, but does all her own self care and cooking and cleaning. No complaints of fatigue. Normal appetite. She is not short of breath at rest or with exertion. No unusual bleeding or unexplained bruising. PMH, medications and allergies personally reviewed by me today. Any changes documented in appropriate section. ROS: Constitutional: Denies episodes of fever and night sweats. Neuro: Denies RAMIREZ, vertigo, dizziness. Has imbalance due to chronic knee pain. HEENT: No recent change in voice, vision or hearing. Resp: Denies cough, wheeze and hemoptysis. Denies shortness of breath at rest. CVS: Denies exertional chest pain, PND, orthopnea and LE edema. GI: Denies dysgeusia. Denies symptoms of stomatitis. Denies dysphagia and odynophagia. Denies reflux, n/v and abdominal pain. : Denies dysuria or gross hematuria. Endo: Denies hot flashes. Denies polyuria and polydipsia. Denies heat and cold intolerance. Musculoskeletal: Chronic b/l knee pain. Derm: Denies rash. Denies jaundice and diffuse pruritis. Heme: Denies unusual bleeding and unexplained bruising. Psych: Normal mood. PHYSICAL EXAM: Vitals: Blood pressure 128/64, pulse 76, temperature 36.2 C (97.1 F), temperature source Temporal, weight 60.8 kg (134 lb). Well-appearing and in no acute distress. EYES: Sclerae are anicteric bilaterally. NECK: Supple. LYMPHATIC: There is no palpable cervical or supraclavicular adenopathy. RESPIRATORY: Inspiratory breath sounds are of normal intensity in all barbosa. No rales, wheezes or rhonchi. CARDIOVASCULAR: Rhythm is regular. Soft murmur. ABDOMEN: The abdomen is nondistended. No organomegaly. No tenderness. Extremities: No swelling or edema. SKIN: No jaundice or rash. NEUROLOGIC: relations mgr II-XII are grossly intact. No focal motor weakness. MUSCULOSKELETAL: Increased left knee swelling with warmth. LABS: Component Latest Ref Rng & Units 08/09/2021 10/05/2021 11/02/2021 12/02/2021 12/28/2021 WBC 3.70 - 11.00 k/uL 4.57 5.08 7.92 5.95 5.19 RBC 3.90 - 5.20 m/uL 3.50 (L) 3.35 (L) 3.06 (L) 3.04 (L) 3.33 (L) Hemoglobin 11.5 - 15.5 g/dL 11.3 (L) 11.3 (L) 10.1 (L) 10.2 (L) 11.1 (L) Hematocrit 36.0 - 46.0 % 35.4 (L) 35.2 (L) 32.3 (L) 32.2 (L) 34.6 (L) MCV 80.0 - 100.0 fL 101.1 (H) 105.1 (H) 105.6 (H) 105.9 (H) 103.9 (H) MCH 26.0 - 34.0 pg 32.3 33.7 33.0 33.6 33.3 MCHC 30.5 - 36.0 g/dL 31.9 32.1 31.3 31.7 32.1 RDW-CV 11.5 - 15.0 % 14.5 12.8 12.7 13.2 12.7 Platelet Count 150 - 400 k/uL 154 155 442 (H) 163 155 MPV 9.0 - 12.7 fL 9.8 9.7 9.5 10.3 10.7 NRBC /100 WBC 0.0 0.0 0.0 0.0 0.0 Absolute nRBC <0.01 k/uL <0.01 <0.01 <0.01 <0.01 <0.01 Neut% % 63.7 62.0 72.0 61.1 66.2 Abs Neut (ANC) 1.45 - 7.50 k/uL 2.91 3.15 5.70 3.64 3.44 Lymph% % 20.1 23.4 14.0 24.4 21.8 Abs Lymph 1.00 - 4.00 k/uL 0.92 (L) 1.19 1.11 1.45 1.13 [place]% % 8.5 7.9 5.0 6.9 6.6 Abs [place] <0.87 k/uL 0.39 0.40 0.40 0.41 0.34 Eosin% % 6.6 5.7 3.0 6.6 4.2 Abs Eosin <0.46 k/uL 0.30 0.29 0.24 0.39 0.22 Baso% % 0.7 0.6 1.0 0.7 0.8 Abs Baso <0.11 k/uL 0.03 0.03 0.08 0.04 0.04 Myelo% % 5.0 Left Shift Present Platelet Estimate Increased Red Cell Morph Reviewed: see results of individual morphologies Ovalocytes Few DTYPE Auto Auto Manual Auto Auto Immature Gran % % 0.4 0.4 0.3 0.4 IMMATURE GRANS (ABS) <0.10 k/uL <0.03 <0.03 <0.03 <0.03 ASSESSMENT/PLAN: (D61.818) Other pancytopenia (HCC) (primary encounter diagnosis) (D53.1) Megaloblastic anemia due to vitamin B12 deficiency Copper deficiency. Assessment: -In summary the patient is a 76-year-old female who has a complex past medical history but significantly underwent Akil-en-Y gastric bypass about 26-27 years ago and then was treated for bleeding duodenal ulcer summer 2018. She'd been observed to have declining serum B-12 levels over the past 9 months prior to presentation here. She had macrocytic anemia, evidence of anemia of chronic disease as well as possible underlying iron deficiency. Lab work confirmed iron deficiency and she was also found to be deficient on copper. -She continues on B-12 injections, has completed parenteral iron and continues on oral copper supplement. -Hemoglobin stable to slightly improved. Platelet count remains normal albeit low end of normal. White count normal. -Again discussed continuing present course of therapy with monthly B12 injection and copper supplementation. If she has a deterioration in counts or change then bone marrow biopsy would be indicated but for now she is pleased with her current care and declines further evaluation. Plan: -Continue monthly B-12 injection. -Monthly CBC. -Office visit with CBC/CMP/iron studies/B12 level/copper level in about 12 months. Portions of this documentation were copied and pasted from previous office visit notes in order to provide a cohesive continuity of the history. The note has been reviewed and edited and updated as necessary. During this patient visit I have spent approximately 10 minutes out of 20 in counseling regarding treatment options, medications and test results and coordinating care. Raman Caruso DO documented in this encounterLake[facility]07-08-[facility] History of Present illness Narrative* Eryn Elliott APRN.CONFLICTS ANALYST - 12/10/2021 8:32 AM EDT CC: Patient presents with: Recheck: Follow up HPI Maia Nieto is a 76 year old female who presents today for follow up on abnormal stool and recent UTI. Daughter with patient and also concerned with steady decline in memory. Per patient and daughter she no longer is having dark sticky stools, fatigue, or any UTI symptoms. Patient recently saw urology and had a negative urine sample. Patient lives alone, but has family that are always in contact with her and stop by daily. Medications are set up by daughter so patient can easily identify what medications to take and when after her mother accidentally took 2 days worth of medicine. Patient also does not go upstairs, and has a life alert necklace if she falls. Gets meals on wheels daily, but daughter concerned because patient puts them in the fridge and forgets to eat. Both father and sister of patient had alzheimers diagnosis. Patient has had documented memory issues in the past but no formal mental exam completed or medication started. Daughter is very worried because patient had son visiting her but then forgot he evercame. Patient is aware of her memory issues which is stressful and upsetting to her. REVIEW OF SYSTEMS General: no fevers, no chills, no night sweats, no recurrent infections, no change in appetite, no change in energy and no significant changes in weight Respiratory: no cough, no wheezing, no shortness of breath, no hemoptysis Cardiovascular: no chest pain, no chest pressure, no palpitations and no swelling GI: No nausea, vomiting, or diarrhea dark sticky stools or blood in stools : No history of dysuria, frequency or incontinence no back or abdominal pain MINI-MENTAL STATE EXAMINATION (MMSE) Make the patient comfortable and establish rapport. Ask questions in the order listed. Total possible score is 30. ORIENTATION 1. What is the (year) (season) (date) (day) (month)? Max score=5 Patient's score=0 2. Where are we? (state) (county) (town or city) (hospital) (floor)? Max score=5 Patient's score=3 REGISTRATION Ask the patient if you may test his/her memory. Then say the names of 3 unrelated objects, clearly and slowly, about one second for each (eg, apple, table, radha). After you have said all 3, ask him/her to repeat them. This first repetition determines the score(0-3), but keep saying them until he/she can repeat all 3, up to 6 trials. Max score=3 Patient's score=3 ATTENTION AND CALCULATION Ask the patient to begin with 100 and count backwards by 7. Stop after 5 subtractions (93, 86, 79, 72, 65). Score the total number of correct answers. If the patient cannot or will not perform the serial 7s task, ask him/her to spell the word WORLD backwards. The score is the number of letters in the correct order (eg, DLROW=5; DLRW=4; DLORW, DLW=3; OW=2; DRLWO=1). Max score=5 Patient's score=0 RECALL Ask the patient to recall the 3 items repeated above (eg, apple, table, radha). Max score=3 Patient's score=3 LANGUAGE Naming: Show the patient a wristwatch and ask him/her what it is. Repeat for pencil. Max score=2 Patient's score=2 Repetition: Ask the patient to repeat the phrase No ifs, ands, or buts: after you. Max score=1 Patient's score=1 3-Stage Command: Give the patient a piece of blank paper and ask him/her to take a piece of paper in your right hand, fold it in half, put it on the floor. Score 1 point for each part correctly executed. Max score=3 Patient's score=3 Reading: On a blank piece of paper, print the sentence CLOSE YOUR EYES in letters large enough for the patient to see clearly. Ask him/her to read it and do what it says. Score 1 point only if he/sheactually closes his/her eyes. Max score=1 Patient's score=1 Writing: Give the patient a blank piece of paper and ask him/her to write a sentence. Do not dictate a sentence; it is to be written spontaneously. It must contain a subject and verb and be sensible.Correct grammar and punctuation are not necessary. Max score=1 Patient's score=1 Copying: Ask the patient to copy the figure of intersecting pentagons exactly as it is. All 10 angles must be present and 2 must intersect to form a 4-sided figure to score 1 point. Tremor and rotation are ignored. Max score=1 Patient's score=1 MAXIMUM TOTAL SCORE = 30 TOTAL SCORE = 16/30 Suggested guideline for determining the severity of cognitive impairment: Mild: MMSE>21 Moderate: MMSE 10-20 Severe: MMSE<9 PAST MEDICAL HISTORY Diagnosis Date Anemia, iron deficiency Anxiety Aortic stenosis Atrioventricular block, complete (HCC) Calculus of kidney Cardiac pacemaker in situ Coronary atherosclerosis of [place] coronary artery Depression Gastroesophageal reflux disease GERD (gastroesophageal reflux disease) GI bleed H/O gastric bypass History of blood transfusion Hyperlipemia Hypertension Hypotension due to blood loss Kidney stones Moderate protein-calorie malnutrition (HCC) 04/12/2019 History: Post-op problem. Albumin 2.9. Noted on post-op nutrition screen. Assessment: 75% of meals consumed per I/O. Plan: Follow nutrition recs. Moderate protein-calorie malnutrition (HCC) Nonrheumatic aortic (valve) stenosis Overactive bladder Thrombocytopenia (HCC) Thrombocytopenia, unspecified (HCC) PAST SURGICAL HISTORY Procedure Laterality Date CARDIAC PACEMAKER PLACEMENT HX COLONOSCOPY FLX DX W/COLLJ SPEC WHEN PFRMD 12/01/2018 Colonoscopy CYSTOURETHROSCOPY 08/07/2019 stent removal ESOPHAGOGASTRODUODENOSCOPY TRANSORAL DIAGNOSTIC 12/01/2018 EGD LITHOTRIPSY XTRCORP SHOCK WAVE MAMMOGRAM BILATERAL june [id number] lap transgatric endoscopy with clipping at [facility] PAST SURGICAL HISTORY OF bovine aortic valve repalce x 2 PAST SURGICAL HISTORY OF [place] gastric bypass PAST SURGICAL HISTORY OF bilat total knee replacement PAST SURGICAL HISTORY OF hysterectomy and BSO for DUB and prolapse PAST SURGICAL HISTORY OF tummy tuck PAST SURGICAL HISTORY OF mitral valve & aortic root replaced PICC LINE INSERT/CONSULT 04/30/2019 PICC LINE INSERT/CONSULT 11/11/2020 ALLERGIES Penicillins and Amoxacillin [Amoxicillin] MEDICATIONS MYRBETRIQ 50 mg Tb24 Take 50 mg by mouth once daily. doxycycline hyclate (VIBRAMYCIN) 100 mg capsule Take 1 capsule by mouth twice daily atorvastatin (LIPITOR) 10 mg tablet Take 1 tablet by mouth once daily ferrous sulfate 325 mg (65 mg iron) tablet Take 1 tablet by mouth daily with breakfast. losartan (COZAAR) 25 mg tablet Take 1 tablet by mouth once daily. furosemide (LASIX) 20 mg tablet Take 1 tablet by mouth once daily. potassium chloride (K-TAB) 10 mEq tablet Take 1 tablet by mouth once daily. Take with lasix fluticasone (FLONASE) 50 mcg/actuation nasal spray Use 2 Sprays in each nostril once daily as needed for cold/allergy symptoms. Rinse mouth after use. zinc sulfate 220 (50) mg capsule Take 1 capsule by mouth once daily. oxybutynin (DITROPAN) 5 mg tablet Take 1 tablet by mouth three times daily. pantoprazole DR (PROTONIX) 40 mg tablet Take 1 tablet by mouth twice daily before meals (0600/1600). carbidopa-levodopa CR (SINEMET CR) 25-100 mg per tablet Take 1 tablet by mouth twice daily. copper citrate 2 mg capsule Take 2 capsules by mouth once daily. senna (SENOKOT) 8.6 mg tab Take 2 tablets by mouth daily at bedtime. citalopram hydrobromide (CELEXA) 10 mg tablet Take 1 tablet by mouth once daily. Cholecalciferol, Vitamin D3, (VITAMIN D-3) 2,000 unit cap Take by mouth once daily. FAMILY HISTORY Problem Relation Age of Onset other (Other) Brother spinal fusion other (Other) Son IBS other (Other) Daughter IBS Heart Mother passed at 44 y/o from rheumatic heart disease Social History Tobacco Use Smoking status: Never Smoker Smokeless tobacco: Never Used Vaping Use Vaping Use: Never used Substance Use Topics Alcohol use: Not Currently Drug use: Never PHYSICAL EXAM BP 128/70 Pulse 64 Resp 16 Wt 61.2 kg (135 lb) BMI 22.47 kg/m General Appearance: well appearing, in no acute distress, alert Pysch: mood and affect broad and appropriate Eyes: conjunctiva pink and moist, no icterus, sclera white, non-injected Lungs: Lungs clear to auscultation. No wheezing, rhonchi, rales. Heart: RRR without murmur, gallop, or rubs. No ectopy Abdomen: Abdomen soft, non-tender. Bowel sounds normal. No masses, organomegaly Extremities: No deformities, edema, skin discoloration, clubbing or cyanosis. Good capillary refill. Health maintenance reviewed with patient: PNEUMOCOCCAL: 65+(2 - PCV) due on 04/11/2020 LDL CHOLESTEROL due on 06/14/2020 ADVANCE DIRECTIVE DISCUSSION Never done COVID-19 VACCINE(4 - Booster for Pfizer series) due on 07/17/2021 DTAP,TDAP,TD(1 - Tdap) due on 06/16/2022 SHINGRIX VACCINE(1 of 2) due on 06/16/2022 INFLUENZA(1) due on 02/03/2022 SERUM CREATININE due on 07/12/2022 ANNUAL PCP TEAM CHRONIC DISEASE VISIT due on 10/21/2022 HEMOGLOBIN/HEMATOCRIT due on 12/02/2022 DIABETES SCREEN due on 07/12/2024 BONE DENSITY Completed HEPATITIS C SCREENING Completed DATA REVIEWED: No new labs ASSESSMENT/PLAN: 1. Dark stools - ICD9: 792.1, ICD10: R19.5 (primary diagnosis) - resolved, Hgb/Hct back at patient baseline, stool for occult blood never completed, will reorder if symptoms return 2. History of UTI - ICD9: V13.02, ICD10: Z87.440 -resolved 3. Memory deficit - ICD9: 780.93, ICD10: R41.3 - probable alzheimer's - moderate by MMSE results - will start namenda and recheck kidney function in 2 weeks, did not start aricept because of history of GI bleed - follow up in 4 weeks - will also review routine chronic conditions health maintenance and lab work at that time as well. 4. Stage 3 chronic kidney disease, unspecified whether stage 3a or 3b CKD (HCC) - ICD9: 585.3, ICD10: N18.30 - COMP METABOLIC PANEL 5. Medication monitoring encounter - ICD9: V58.83, ICD10: Z51.81 - COMP METABOLIC PANEL 6. Hyperlipidemia, unspecified hyperlipidemia type - ICD9: 272.4, ICD10: E78.5 - to be determined upon return of lab results - LIPID PANEL BASIC Prescription instructions reviewed with patient as applicable. Potential red flag symptoms discussed with the patient. Reviewed appropriate action plan to take if red flag symptoms occur. Patient agreeable to treatment plan. Eryn Elliott APRN.CNP documented in this encounterL[facility]28[facility] History of Present illness Narrative* Tree Chaparro RN - 11/30/2021 1:58 PM EDT [facility] Eng[facility] Provider Action/FYI: Spk with daughter Cristina, she reports UTI was treated, her mother has her strength back to baseline,denies any rectal or other bleeding from any other site. Pt is hydrating well. Denies needs or concerns. Contact Made with Patient: Yes Patient identified by name and . Discussed care with elliott steward name is Carmelo Leavitt RN your Dual Rate Supervisor from Clau Baca [facility] office [facility]. I am reaching out today because I noticed it has been a few weeks since I have seenany responses from you on your questionnaire. I wanted to check on you and make sure you are doing well, and to remind you that your Clau Baca MD recommended this program for you so that you can stay better connected to your health. I will be monitoring your responses on the questionnaire to make sure we are not seeing any changes in your health that your Primary Care Physician needs to know about, or looking for improvements and keeping Clau Baca MD informed about it all. You and I will check in together anytime a problem arises, and determine a solution. I am here to help you stay healthy, and stay connected to your doctor's office. How can I help you in this program? The patient informs that she forgot. Please take some time today to answer the questionnaire. I am looking forward to receiving your answers. If I do not receive your answers in the next 2 business days I will check back in. ---END CALL Carmelo Leavitt RN November 30, 2021 2:13 PM documented in this encounterLake[facility]06-21-2022 History of Present illness Narrative* Tree Chaparro RN - 11/23/2021 12:45 PM EDT [facility] Eng[facility] Provider Action/FYI: Call to Pt to verify CKD status or needs, unable to leave a message. Contact Made with Patient: No, second attempt, left message. Matias Nieto. This is Carmelo Leavitt RN your Dual Rate Supervisor from the [facility]. I am calling to check in with you concerning the MyChart questionnaire you have been receiving from me. I will call you again next week and am looking forward to speaking with you. (Dual Rate Supervisor enters next week's date in "next patient outreach") Carmelo Leavitt RN November 23, 2021 12:45 PM * Tree Chaparro RN - 11/22/2021 1:18 PM EDT [facility] Eng[facility] Provider Action/FYI: Call to Pt unable to leave a message mail box is full, to verify CKD or other symptoms. Contact Made with Patient: No, first attempt, left message. Matias Nieto. This is Carmelo Leavitt RN your Dual Rate Supervisor [facility]. I am calling to check in with you concerning the MyChart questionnaire you have been receiving from me. I will call you again tomorrow and am looking forward to speaking with you. (Dual Rate Supervisor enters next day in "next patient outreach") Carmelo Leavitt RN November 22, 2021 1:18 PM documented in this encounterLake[facility]06-09-2022 Instructions* Patient Instructions* Anatoly Brown DO - 11/11/2021 4:20 PM EDT Bloodwork on the way out documented in this encounterLakehealth [facility]06-09-2022 History of Present illness Narrative* Anatoly Lorena DO Stephanie - 11/11/2021 3:55 PM EDT Images from the original note were not included. Ortho Knee Follow Up Note Narrative Referring Provider: SELF PCP: Clau Baca MD IMPRESSION/PLAN: 76 year old s/p septic revision second stage left Total Knee Replacement completed on 02/15/2021. Patient reports since her last visit, she sustained a mechanical fall landing on her left knee roughly 2 months ago. She reports that she continues to have mild pain, but reports noticing that her knee is warm to touch over the past 3 weeks. Patient presented to her PCP, where inflammatory markers were drawn and were elevated CRP of 11.1. However, it was found later that the patient had a UTI which was treated with Bactrim. She denies any breaks in her lifelong doxycycline, fevers chills. She is currently walking with assist of a walker with minimal pain in her knee. We will obtain inflammatory markers today, if downtrending we will monitor however if her marker continues to be elevated we will obtain aspiration of the knee. I will reach out to daughter once markers have resulted. Addendum November 12, 2021: CRP is completely normalized to 0.3. With this information we will continueto watch the patient. No necessity for aspiration at this time. Communication was had with the patient's daughter today. Maia Nieto is a 76 year old female with the presenting complaint of Knee Pain of the Left Knee. Maia reports a current pain level of 6 (Knee-Left). She describes the pain as Aching, Other: See comment, Stiffness (warm touch). The pain is Intermittent, and has lasted for 3 Months. Interventions tried include Medication. tylenol. She was last seen in orthopaedic clinic for her knee on 05/13/2021 with Anatoly Brown. Most recent knee imaging was completed on 11/11/2021 (XR KNEE POST OP 3V AP/LAT/MERCHANT LEFT) . Maia had knee surgery on 02/15/2021 with Anatoly Brown. In the past (based on all medication history on file), Maia has tried the following anti-inflammatory medications (not necessarily for this reason for visit): celecoxib, hydrocortisone sodium succ/PF, ibuprofen, ketorolac tromethamine, meloxicam, methylprednisolone. Orthopaedic Surgeries 02/15/2021 (8mo) ARTHROPLASTY KNEE CONDYLE AND PLATEAU MEDIAL AND LATERAL COMPARTMENTS W/O PATELLA RESURFACING (Left) Anatoly Brown DO; Fei Dawkins MD - Posted 11/09/2020 (1yr) REMOVAL PROSTHESIS JOINT KNEE; INSERT NON-BIODEGRADABLE DRUG DELIVERY IMPLANT LOWER EXTREMITY (Left; Left) Anatoly Brown DO; Jesus Manuel Jha DO; Viraj Rubio DO - Posted PAIN EVALUATION 11/11/2021 1552 Pain Level: 6 Pain Location: Knee-Left Description: Aching;Other: See comment;Stiffness warm touch Duration Amount of Time: 3 Duration Units: Months Frequency: Intermittent Intervention/Comfort measure: Medication Comments: tylenol IMPRESSION: At normal post-operative stage of recovery. PLAN: Continue current conservative treatment. Patient Reassurance: Patient reassured and supported. All questions answered. 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 Urge Incontinence Hyperactivity of Bladder Anxiety Gerd (Gastroesophageal Reflux Disease) Overactive Bladder Coronary Artery Disease Involving [place] Coronary Artery of [place] Heart Without Angina Pectoris Restless Legs Syndrome Stage 3 Chronic Kidney Disease (Hcc) Bronchitis S/P Avr Prosthetic Aortic Valve Stenosis GI Bleed Acute Cystitis With Hematuria Nonrheumatic Aortic Valve Insufficiency History of Endocarditis Other Specified Anemias Stress Hyperglycemia Complete Heart Block (Hcc) Atelectasis Volume Overload Nonrheumatic Mitral Valve Regurgitation Memory Deficit Megaloblastic Anemia Due to Vitamin B12 Deficiency Iron Deficiency Anemia Secondary to Inadequate Dietary Iron Intake Iron Malabsorption Copper Deficiency Recurrent Major Depression in Partial Remission ([facility]) History of Uti Infection and Inflammatory Reaction Due to Internal Left Knee Prosthesis, Initial Encounter ([facility]) Elective Surgery Status post op: BMI: There is no height or weight on file to calculate BMI. Post-operative recovery was complicated by uneventful/none. Readmission(s) since surgery (90 days post)? No ED Visits & Hospitalizations - Last 180 days None Patient rates their condition as improving. Does the patient still experience pain? see MIDAS Form Post Op discharge patient location: in home. Functional Assessment is as follows: completed course of therapy. Functional difficulties: Walking. Pain Medication: Non-narcotic Currently Ambulating with: a walker EXAM: POST OP KNEE Left Post-Operative Knee Ambulates with a: requiring assistive device: Wheeled walker. SKIN: Appropriate postop appearance and warm to touch with mild edema, no apparent joint effusion, pain-free range of motion. Range of motion is 0 degrees in extension and 100 degrees of flexion. Extension La degrees Pain with ROM:No There is None effusion. Mal-alignment: No Tender to the palpation of None Neurovascular Status: Sensation Intact, Moves foot and ankle up & down and 2+ dorsalis pedis Stability:Anterior/Posterior- Yes, stable and Varus/Valgus- Yes, stable Quad strength: normal Imagin. Implants are well aligned. Implants are well fixed. There is no evidence of loosening. Provider: Anatoly Brown DO Completed by: Anatoly Brown DO documented in this encounterLake[facility]06-09-2022 Miscellaneous Notes* [facility] - Janie Thomason, (R) - 11/11/2021 3:10 PM EDT Radiology Service Progress Note PATIENT NAME: Maia Nieto DATE OF SERVICE: November 11, 2021 TIME: 2:55 PM PATIENT IDENTITY VERIFICATION COMPLETED USING TWO (2) IDENTIFIERS: Name and Date of confirmedby patient verbally and Name and Date of confirmed by identification band. FALL SCREENING: Has the patient had 2 falls in the last year or 1 fall with injury or currently using an Ambulatory Assistive Device (Walker, Cane, Wheelchair, Crutches, etc.)? Yes, Patient High Riskfor Falls What interventions were put in place to prevent falls during this visit? Increased Observations by Caregivers PATIENT GENDER DATA: Male PATIENT RELEVANT IMPLANT DATA REVIEWED: Yes RADIOLOGY DEPARTMENT: General X-ray: Exam(s) Completed: Lower Extremity X- Ray(s): Knee, AP / Lat / Merchant Left PERIPHERAL IV DATA: Not applicable SIGNED BY: RT Tyrone(R) November 11, 2021 2:55 PM documented in this encounterLake[facility]06-06-2022 History of Present illness Narrative* Tree Chaparro RN - 11/08/2021 3:31 PM EDT PRIMARY CARE COORDINATION QUICK NOTE Provider Action/FYI Spk with daughter Cristina she noted Pt was seen 10/27/21 & 10/30/21 [facility] ED for suspected GIB, Pt had weakness and dark stools, Hgb 9.2 Pt was found to have a UTI, treated with ATB, she is hydrating will, denies bleeding from any site,denies fever or chills, weakness has improved, denies needs. Cristina assists her mother with questionnaire completion. Patient identified by name and date . Carmelo Leavitt RN November 08, 2021 3:31 PM documented in this encounterLake[facility]06-01-2022 History of Present illness Narrative* Tree Chaparro RN - 11/03/2021 10:34 AM EDT [facility] Eng[facility] Provider Action/FYI: Call to Pt left a message to follow up on 10/30/21 [facility] ED visit for GIB/ Weakness and needs Pt has appt 11/19/21 with Eryn Elliott CNP Contact Made with Patient: No, second attempt, left message. Matias Nieto. This is Carmelo Leavitt RN your Dual Rate Supervisor from the [facility]. I am calling to check in with you concerning the MyChart questionnaire you have been receiving from me. I will call you again next week and am looking forward to speaking with you. (Dual Rate Supervisor enters next week's date in "next patient outreach") Carmelo Leavitt RN November 03, 2021 10:34 AM * Tree Chaparro RN - 11/02/2021 3:56 PM EDT [facility] Engagement Provider Action/FYI: Call to Pt left a message to follow up on 10/30/21 [facility] ED visit for GIB/ Weakness Contact Made with Patient: No, first attempt, left message. Matias Nieto. This is Carmelo Leavitt RN your Dual Rate Supervisor [facility] the [facility]. I am calling to check in with you concerning the MyChart questionnaire you have been receiving from me. I will call you again tomorrow and am looking forward to speaking with you. (Dual Rate Supervisor enters next day in "next patient outreach") Carmelo Leavitt RN November 02, 2021 3:56 PM documented in this encounterLakehealth [facility]05-31-2022 Nurse Note* Vijaya Deana Huntley, DULCE - 11/02/2021 2:24 PM EDT Patient presents with: Imm/Inj Pt is identified by name and birthdate: Yes. Allergies and medications reviewed. Latex allergy? No. Does this patient have: Unplanned weight loss or gain of greater than 10 pounds, or a change of appetite over the last year? No Does the patient have any concerns about safety in the home/falls? yes at risk for falls Has the patient fallen in the past year? yes Does the patient have difficulty performing or completing routine daily living activities? No Does this patient have concerns about personal safety? No Is patient having pain? Pain: No=0 (pain 0 on a scale of 0-10). Health Maintenance: Reviewed and updated. Does patient have MyChart access or Caregiver proxy: yes Pt/Caregiver willingness and readiness to learn assessed: Yes. Barriers: none cyanocobalamin injection administered, right Deltoid, tolerated well, no immediate adverse reactions noted. Vijaya Huntley LPN documented in this encounterLakehealth [facility]05-27-2022 Miscellaneous Notes* Telephone Encounter - Sheeba Pang Ma - 10/29/2021 4:18 PM EDT Cristina notified. * Telephone Encounter - Sheeba Pang Ma - 10/29/2021 4:16 PM EDT ----- Message from Eryn Elliott APRN.CNP sent at 10/29/2021 3:35 PM EDT ----- Please let patient know that Hgb is similar to one 2 days ago at 9.4. Please get stool for occult blood sample completed. For any increase in fatigue, shortness of breath, chest pain, or further bleeding go to ER. Thank you Eryn Elliott APRN.CNP documented in this encounterLakehealth [facility]05-27-2022 Miscellaneous Notes* Telephone Encounter - Eryn Elliott APRN.CNP - 10/29/2021 8:45 AM EDT CBC ordered. Thank you Eryn Elliott APRN.CNP * Telephone Encounter - Sheeba Pang Ma - 10/29/2021 8:22 AM EDT Spoke with daughter Cristina, mom did not have BM yesterday. Patient's daughter tried addrressing the Hemoglobin drop with the ER Dr and he felt it was not a significant enough of a drop for concern. Daughter is going over to moms at this time and will bring in to lab for repeat CBC and continue to check stool and will let us know. * Telephone Encounter - Eryn Elliott APRN.CNP - 10/29/2021 7:41 AM EDT Please call patient, and see if she is still having dark sticky stools or blood in stools. I am concerned for active bleeding, and she needs emergently evaluated if this is still happening or she hasany other symptoms like weakness shortness of breath chest pain or any other concerns. Thank you Eryn Elliott APRN.CNP documented in this encounterL[facility]05-26-2022 Miscellaneous Notes* Telephone Encounter - Eryn Elliott APRN.CNP - 10/28/2021 9:49 AM EDT Noted. Eryn Elliott APRN.CNP * Telephone Encounter - Lisseth White Ma - 10/28/2021 8:33 AM EDT Spoke with main campus lab and they will add CBC. Lab will contact office with any issues. Lisseth White Ma * Telephone Encounter - Eryn Elliott APRN.CNP - 10/28/2021 8:01 AM EDT I highly doubt lab could add this on today. Please call and verify this and make sure patient's daughter knows to have patients lab drawn today. Thank you Eryn Elliott APRN.CNP * Telephone Encounter - Gunjan Dey RN - 10/27/2021 7:49 PM EDT Pts daughter called and is notified of providers message and instructions. She voices understanding. Gunjan Dey RN * Telephone Encounter - Sheeba Pang Ma - 10/27/2021 6:26 PM EDT Left message for Cristina to return call. Lab was gone for the evening, will have to try in the morning to add on CBC. See message below. * Telephone Encounter - Eryn Elliott APRN.CNP - 10/27/2021 5:50 PM EDT I have ordered both of these. Please call lab to see if CBC can be added onto labs drawn earlier today. Please let patient's daughter know this is ordered, but if patient is getting weaker and continuing to have dark sticky stools, any shortness of breath, chest pain, or other urgent concern. She needs to go to ER. Thank you Eryn Elliott APRN.CNP * Telephone Encounter - April Saenz RN - 10/27/2021 1:00 PM EDT Patient's daughter calls and states that patient's had a bowel movement and it was dark and it smelled like when patient had a GI bleed before. Reyna states that patient has been weak and pale. Robinasking if provider can write lab orders to check for blood in stool as well as CBC to see if Hemoglobin is down? Please review and advise, April Saenz RN documented in this encounterLake[facility]05-19-2022 Miscellaneous Notes* Telephone Encounter - Sheeba Pang Ma - 10/21/2021 3:52 PM EDT Tried calling mobile number, full. FreshBookshart message sent. * Telephone Encounter - Eryn Elliott APRN.CNP - 10/21/2021 3:16 PM EDT Please let patient know that Dr. Brown wants her to have further lab studies completed and is going to get her in for an earlier appointment. Lab work is placed for her to get done MAGALI. Thank you Eryn Elliott APRN.CNP documented in this encounterLake[facility]05-19-2022 History of Present illness Narrative* Jaky Craig RT(R) - 10/21/2021 10:20 AM EDT Radiology Service Progress Note PATIENT NAME: Maia Nieto DATE OF SERVICE: October 21, 2021 TIME: 10:20 AM PATIENT IDENTITY VERIFICATION COMPLETED USING TWO (2) IDENTIFIERS: Name and Date of confirmedby patient verbally. FALL SCREENING: Has the patient had 2 falls in the last year or 1 fall with injury or currently using an Ambulatory Assistive Device (Walker, Cane, Wheelchair, Crutches, etc.)? No PATIENT GENDER DATA: Female. status: : No status: NO. PATIENT RELEVANT IMPLANT DATA REVIEWED: Yes RADIOLOGY DEPARTMENT: General X-ray: Exam(s) Completed: Lower Extremity X- Ray(s): Knee, AP / Lat / Tunne / Merchant Left and Wt. Bearing PERIPHERAL IV DATA: Not applicable SIGNED BY: RT Juan Jose(R) October 21, 2021 10:20 AM documented in this encounterLake[facility]05-02-2022 Miscellaneous Notes* Telephone Encounter - Malorie Batista Pss - 10/04/2021 8:31 AM EDT Spoke with daughter and rescheduled. * Telephone Encounter - Chely Galdamez Pss - 10/04/2021 8:21 AM EDT Patient's daughter Reyna called to cancel today's appointments for lab and injection can be reachedat [phone] Chely Galdamez Pss documented in this encounterLakehealth [facility]04-28-2022 History of Present illness Narrative* Tree Chaparro RN - 09/30/2021 4:30 PM EDT INSIGHT CDM ESCALATION Provider Action/FYI: Routed updates to Dr. Baca ( Please see note below) 2nd Call to daughter Cristina, she noted she went at Lunch to see her Mother, Left Knee is without redness or swelling, it is warm to touch, Pain is 3/10 and controlled with Tylenol, it does not keep her up at night, she is able to walk with walker without pain. After Cristina asked a second time, the Pt remembered she had had fallen. Cristina will call today to get a next day Appt with PCP/CONFLICTS ANALYST for evaluation of knee. Message received via: InSight - Yes contact made with patient ACTION TAKEN: Based on zone manager, the following disposition is advised: SYMPTOMS PRESENT NOT SEVERE: Visit (Telehealth, Virtual or In Office) with PCP within 48 hours - [facility]ed to [facility] [[id number]] - End outreach / Phone Call Carmelo Leavitt RN September 30, 2021 4:31 PM * Tree Chaparro RN - 09/30/2021 1:38 PM EDT INSIGHT CDM ESCALATION Provider Action/FYI: Croze Machine Operator Questionnaire Triggered call Pt's daughter reported on questionnaire- experiencing any new symptoms related to your chronic condition. Spk with daughter Cristina who reported her mother has had a right knee replacement 02-15-21 and is having new Right Knee pain, denies falls. Daughter Cristina was unsure if there was an injury/ twist, redness or swelling, or pain level on scale of 1-10, and if her mother has taken anything for the pain? Discussed with Cristina her mother may need her right leg evaluated by PCP/ CONFLICTS ANALYST today and possibly an X-ray may be required? Cristina noted she has not taken a lunch break, will check on her mother, evaluate the Right knee, askthose questions to clarify the Knee status and call PCP's office for Appt / Evaluation. Message received via: InSight - Yes contact made with patient ACTION TAKEN: Based on zone manager, the following disposition is advised: SYMPTOMS PRESENT NOT SEVERE: Visit (Telehealth, Virtual or In Office) with PCP within 48 hours - Routed to [facility] [[id number]] - End outreach / Phone Call Carmelo Leavitt RN September 30, 2021 1:38 PM documented in this encounterLake[facility]04-11-2022 History of Present illness Narrative* Tree Chaparro RN - 09/13/2021 4:37 PM EDT inSight CDM Engagement Provider Action/FYI: Left a message to verify CKD or other symptom status, and needs. Provided location of Insight Monitoring questionnaire. Contact Made with Patient: No, first attempt, left message. Matias Nieto. This is Carmelo Leavitt RN your Dual Rate Supervisor from the [facility]. I am calling to check in with you concerning the MyChart questionnaire you have been receiving from me. I will call you again tomorrow and am looking forward to speaking with you. (Dual Rate Supervisor enters next day in "next patient outreach") Carmelo Leavitt RN September 13, 2021 4:37 PM documented in this encounterLakehealth [facility]04-04-2022 Miscellaneous Notes* Telephone Encounter - Marcela Paganpatricia CARDONA - 09/06/2021 4:20 PM EDT Patient has been identified by name and date of : Yes Patient phones for refill(s): Pending Prescriptions Disp Refills ATORVASTATIN 10 MG TABLET 30 tablet 5 Sig: Take 1 tablet by mouth once daily. MICHAEL: No FERROUS SULFATE 325 MG (65 MG IRON) TABLET 90 tablet 0 Sig: Take 1 tablet by mouth daily with breakfast. MICHAEL: No Date of last office visit in primary care: 06/16/21 Last 2 Encounter Wt Readings: Date: Wt: 09/06/2021 63 kg (139 lb) 07/12/2021 62.1 kg (137 lb) Previous labs/tests for medication: Cholesterol: HDL Cholesterol (mg/dL) Date Value 06/14/2019 84 LDL Cholesterol (mg/dL) Date Value 06/14/2019 42 ALT (U/L) Date Value 07/12/2021 22 Non HDL Cholesterol (mg/dL) Date Value 06/14/2019 66 Please advise. Thank you. Marcela Hidalgo LPN documented in this encounterLake[facility]04-04-2022 Miscellaneous Notes* Telephone Encounter - Marcela Hidalgo LPN - 09/06/2021 3:04 PM EDT Patient has been identified by name and date of : Yes Patient phones for refill(s): Pending Prescriptions Disp Refills LOSARTAN 25 MG TABLET 30 tablet 5 Sig: Take 1 tablet by mouth once daily. MICHAEL: No Date of last office visit in primary care: 06/16/21 Last 2 Encounter Wt Readings: Date: Wt: 09/06/2021 63 kg (139 lb) 07/12/2021 62.1 kg (137 lb) Previous labs/tests for medication: Blood Pressure: BUN (mg/dL) Date Value 07/12/2021 31 Sodium (mmol/L) Date Value 07/12/2021 138 Last 1 Encounter BP Readings: Date: BP: 09/06/2021 134/66 Please advise. Thank you. Marcela Hidalgo LPN documented in this encounterLakehealth [facility] Center04-04-2022 Nurse Note* Vijaya Huntley, DULCE - 09/06/2021 10:15 AM EDT Patient presents with: Imm/Inj Pt is identified by name and birthdate: Yes. Allergies and medications reviewed. Latex allergy? No. Does this patient have: Unplanned weight loss or gain of greater than 10 pounds, or a change of appetite over the last year? No Does the patient have any concerns about safety in the home/falls? Not at risk for falls Has the patient fallen in the past year? No Does the patient have difficulty performing or completing routine daily living activities? No Does this patient have concerns about personal safety? No Is patient having pain? Pain: No=0 (pain 0 on a scale of 0-10). Health Maintenance: Reviewed and updated. Does patient have MyChart access or Caregiver proxy: yes Pt/Caregiver willingness and readiness to learn assessed: Yes. Barriers: none Cyanocobalaim injection administered, right deltoid, tolerated well, no immediate adverse reactionsnoted. DULCE Sanches LPN documented in this encounterLake[facility]04-01-2022 History of Present illness Narrative* Tree Chaparro RN - 09/03/2021 3:45 PM EDT PRIMARY CARE COORDINATION QUICK NOTE Provider Action/FYI Chart Reviewed Patient identified by name and date . Carmelo Leavitt RN September 03, 2021 3:45 PM documented in this encounterLakehealth [facility] Center03-21-2022 Miscellaneous Notes* Addendum Note - Tree Chaparro RN - 08/23/2021 2:55 PM EDT Addended by: CARMELO LEAVITT on: 08/23/2021 02:55 PM Modules accepted: Orders documented in this encounterLakehealth [facility] Center03-21-2022 History of Present illness Narrative* Tree Chaparro RN - 08/23/2021 1:16 PM EDT InSight CDM Enrollment Provider Action/FYI: Spk with daughter Reyna who noted Pt is in agreement with CKD/ Bronchitis CDM via smart phone. Denies falls, uses a walker, denies needs. Goal Tto ambulate well enough she power not have to use a walker. Patient referred by: [facility] Zaheer Contact made with patient: Yes - Patient identified by name and . Discussed care with caregiver Matias this is Carmelo Leavitt, KAYLIN and I am calling from Clau Baca MD office at the [facility]. I am a RN Dual Rate Supervisor with our inSight Chronic Disease Management program. Clau Baca MD wanted me to reach out to help you manage your health at home. Our goal is to keep you well at home. We want to help you manage your chronic disease by providing a safety net of resources around you, getting you the care you need in a timely manner, and hopefully keep you out of the ED and hospital. I will send you a few questions once a week through your Protonet account. It will automatically show up for you to complete. There are simple questions that will help us identify if you have anyconcerns or symptoms and I will call you to help get what you need. We will be able to connect you,review your symptoms, do an on demand visit, or communicate with Clau Baca MD if needed. I am going to sign you up for the program now. Enrollment Questions: Let's get you enrolled in the program. Yes, Do you have regular access to a computer/smartphone? Yes. Goal Setting: I would like to take some time today to discuss your personal health goals. Yes, patient has goals. Capture the goal the patient wants to accomplish: Tto ambulate well enough she power not have to use a walker. . Does the goal align with programs offered at the [facility]? No Patient accepts resident care associate Thank you for your time today. I am excited to work together in managing your health! You will receive information on next steps through your Protonet account, and I will check back within a few weeks to ensure you have all that you need to use the program successfully. (Place name in care team and assign Protonet Croze Machine Operator questionnaire) Most people know what to do to become healthier, yet struggle to put it into action on their own.Itcan be hard to maintain a healthy lifestyle, especially when life is so stressful. Can we connect you with a [facility] Health Marketing Teacher to find a program that could help you meet your goals? No Closing: Patient accepts resident care associate Thank you for your time today. I am excited to work together in managing your health! You will receive information on next steps through your Protonet account, and I will check back within a few weeks to ensure you have all that you need to use the program successfully. (Place name in care team and assign MyChart Croze Machine Operator questionnaire) Carmelo Leavitt RN August 23, 2021 1:16 PM documented in this encounterLakehealth [facility] Center12-09-2021 History of Present illness Narrative* Farzana Foley RT(R) - 05/13/2021 8:00 AM EST Radiology Service Progress Note PATIENT NAME: Maia Nieto DATE OF SERVICE: May 13, 2021 TIME: 8:32 AM PATIENT IDENTITY VERIFICATION COMPLETED USING TWO (2) IDENTIFIERS: Name and Date of confirmedby patient verbally. FALL SCREENING: Has the patient had 2 falls in the last year or 1 fall with injury or currently using an Ambulatory Assistive Device (Walker, Cane, Wheelchair, Crutches, etc.)? No PATIENT GENDER DATA: Female. status: : No status: NO. PATIENT RELEVANT IMPLANT DATA REVIEWED: Not Applicable RADIOLOGY DEPARTMENT: General X-ray: Exam(s) Completed: Lower Extremity X- Ray(s): Femur, Left and Knee, AP / Lat / Tunne / Merchant Left and Wt. Bearing PERIPHERAL IV DATA: Not applicable SIGNED BY: RT Brandon(R) May 13, 2021 8:32 AM documented in this encounterLakehealth [facility] Center10-08-2021 History of Present illness Narrative* Sophia Do RT(R) - 03/12/2021 10:30 AM EDT Radiology Service Progress Note PATIENT NAME: Maia Nieto DATE OF SERVICE: March 12, 2021 TIME: 10:42 AM PATIENT IDENTITY VERIFICATION COMPLETED USING TWO (2) IDENTIFIERS: Name and Date of confirmedby patient verbally. FALL SCREENING: Has the patient had 2 falls in the last year or 1 fall with injury or currently using an Ambulatory Assistive Device (Walker, Cane, Wheelchair, Crutches, etc.)? No PATIENT GENDER DATA: Female. status: : No status: NO. PATIENT RELEVANT IMPLANT DATA REVIEWED: Not Applicable RADIOLOGY DEPARTMENT: General X-ray: Exam(s) Completed: Lower Extremity X- Ray(s): Knee, AP / Lat / Merchant Left and Wt. Bearing PERIPHERAL IV DATA: Not applicable SIGNED BY: RT Autumn(R) March 12, 2021 10:42 AM documented in this encounterLakehealth [facility]point [facility] Center06-07-2021 History of Past illness Narrative* Problem Noted Date Resolved Date Elective surgery 11/09/2020 04/08/2022 History of UTI 11/06/2020 04/08/2022 Last Assessment & Plan: Assessment: recent, but tx, pre-op WBC normal following UTI Other pancytopenia 01/01/2020 03/27/2020 Transition of care performed with sharing of clinical summary 04/30/2019 03/27/2020 Overview: Indication for Surgery: Prosthetic aortic valve endocarditis Preop LVEF: 75% RVF: Normal Postop LVEF: Normal RVF: Normal Cath: mild non obsx CAD Cards: Papito Antunez EKG: NSR w/ 1st degree Important/Relevant PMH/PSH: 73F from [facility] with GERD, depression, HTN, gastric bypass, PUD with recent GIB, nephrolithiasis, s/p AVR 2002 admitted with prosthetic valve endocarditis c/b severe AI, posterior root abscess, Parkinsons, CKD, overactive bladder Preoperative Hospital Course Admitted 04/10 with severe aortic insufficiency related to endocarditis Airway Difficulty: Grade I - easy Pacing wires: No. A/V pulled 04/30 Chronological list of Surgeries and Major Events 04/22/2019: Redo AVR, MVr_ 04/29/2019: PPM placement A/P of Major Active ICU Problems Cardiac: EP following for pacer dependency with ventricular rate <30 underneath. Continue DDD 80, mA 10, 5. Formal echo 04/26 showed EF 75%, RV normal. NPO, plan for PPM today. Renal:CKD-- SrCr 0.89, downtrending. Avoid nephrotoxic agents, trend fluid balance and electrolytes. 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 Continue ceftriaxone. Transferred to floor 04/29/19 To do or to watch: Access: Right arm PICC placed 04/30. - POD#7. No tubes/wires. AV paced. On room air. - s/p Redo AVR, MVr for IE: Surg path reviewed. Bacterial PCR + Streptococcus mutans. ID following. PICC placed 04/30. CoPat started. Continue Ceftriaxone through 06/03. Post-op echo completed 04/26: EF 75%, trace Mr, trivial-small pericardial effusion. - s/p PPM: Device check completed 04/30. - FVO: Up 3.7kg. Continue lasix - Dispo: 73 yo female from [place], [place]. Daughter can help. SW following. PT/OT rec home PT/OT; HHC for IV antibiotics. Face-to face ordered. Should be ready for dc when accepting facility found. [facility] f/u scheduled. [facility] OPD f/u requested. Discharge Planning: Anticipated Discharge Date: 05/01/2019 if HHC arranged. Barriers to Discharge: Other: accepting home care agency and - In Process Care Management Discharge Needs: Needs Prior to Discharge: Accepting Facility;IV Antibiotics Volume overload 04/30/2019 04/08/2022 Overview: History: Post-op problem. Assessment: up 3.7kg. I/O -400 (not fully recorded). BUN/CR 30/0.9. K 5.2 Plan: Continue IV diuretics. Replace electrolytes prn. Montior labs, I/O. Monitor daily weight. Continue fluid restriction. Mobilize. Discharge planning issues 04/30/20192019 Overview: 73 yo female from [place], [place]. Daughter can help. SW following. PT/OT rec home PT/OT; HHC for IV antibiotics. Face-to face ordered. Should be ready for dc when accepting facility found. Atelectasis 04/26/2019 04/08/2022 Overview: History: Postop Assessment: Bibasilar on am CXR. Good gas exchange on room air. Plan: Continue BPH, OOB daily and Pep. Thrombocytopenia 04/24/2019 04/26/2019 On mechanically assisted ventilation 04/22/2019 04/23/2019 Overview: History: Post op cardiac surgery requiring elective intubation Assessment: Grade I airway Plan: WTE Post-operative pain 04/22/2019 05/01/2019 Overview: History: 04/22/2019: AVR Assessment: Pain control adequate Plan: Continue scheduled Tylenol and prn oxycodone and tramadol. Preop testing 04/19/2019 04/30/2019 Overview: Date of Consult: 04/12 Type of surgery: Redo AVR/root +/- MVr Date preop tests completed:April 19, 2019 Waiting on: Date Surgeon reviewed Patient: 04/18 Patient work up completed: Waiting on: Date of decision by Surgeon: April 19, 2019 Deemed candidate: Yes Date of surgery: 04/22 Reasons for delay: [facility] PRE-OP CHECKLIST Surgeon: Dr. Forrest Rios Informed Consent Completed: pending STS Score: RISK SCORES Procedure: Isolated AVR CALCULATE Risk of Mortality: 4.605% Renal Failure: 3.404% Permanent Stroke: 2.380% Prolonged Ventilation: 22.071% DSW Infection: 0.035% Reoperation: 7.729% Morbidity or Mortality: 27.681% Short Length of Stay: 12.366% Long Length of Stay: 20.018% CAD: No Is intended procedure a CABG: No - H & P completed: Yes PA/LAT: Completed CT: Completed MRI: N/A LE US: N/A Cath: Yes - reviewed: Yes EKG: Completed Is patient on Amiodarone? Yes Echo:Completed EF %: 70 PI's: N/A Carotid: Completed Mapping: N/A Dental: Completed PFT's: Completed CBC, Coags, BMP, Mg, Phos Recent Labs 04/19/19 0507 04/18/19 0800 04/18/19 0455 04/17/19 0511 WBC 7.49 8.34 7.77 7.81 HB 7.9* 8.2* 7.3* 8.4* HCT 24.7* 25.7* 23.6* 26.5* PLT 144* 151 137* 155 NA 135* -- 134* 134* K 4.5 -- 4.4 4.4 CHLOR 103 -- 102 102 CO2 20* -- 23 22 BUN 37* -- 34* 27* CREAT 1.05* -- 1.03* 1.01* GLUC 83 -- 80 77 CA 8.2* -- 8.3* 8.2* MG 2.0 -- 2.0 1.9 UA: Normal HCG:N/A ABO/ABO Confirmed: Yes Blood ordered: Yes POS ABS 4units Willing to accept blood: Yes SA Swab: Yes - results: Pending Last Dose of Anticoagulation: none Op Note: Yes with Dr. Rios Pacemaker Check: No Implants: no Consults: ID, GI DM: No Cardiac Surgical prep: Yes SIGNATURE: Myrna Car RN LABOR RELATIONS ANALYST.CONFLICTS ANALYST DATE of SERVICE: 04/19/2019 TIME of SERVICE: 11:16 AM CHECKED BY: Moderate protein-calorie malnutrition 04/12/2019 10/02/2020 Overview: History: Post-op problem. Albumin 2.9. Noted on post-op nutrition screen. Assessment: 75% of meals consumed per I/O. Plan: Follow nutrition recs. Last Assessment & Plan: - nutrition referral Parkinson's disease 03/04/2019 06/11/2019 Overview: History: Takes Sinement at home Assessment: Stable postop Plan: Resume home regimen. Last Assessment & Plan: Assessment: on Sinemet PLAN: - cont home meds Acute kidney injury 03/04/2019 03/06/2019 Last Assessment & Plan: Assessment: - noted to have HILARIO at OSH with Cr of 1.31 on presentation, improved with fluids - likely related to blood loss RESOLVED PLAN: - monitor - avoid nephrotoxins - renally dose meds Acute cystitis with hematuria 03/04/2019 Last Assessment & Plan: Assessment: - abnormal UA at OSH, was given Rocephin at OSH ED - OSH urine cx: presumptive E coli. pansensitive - appears only received one dose of Rocephin PLAN: - complete treatment with Bactrim Elevated troponin 12/06/2018 12/23/2018 Last Assessment & Plan: No chest pain. EKG - NSR, LVH, LAD Plan: repeat EKG and troponin Trend troponin if remains elevated here GI bleed 12/05/2018 12/23/2018 Last Assessment & Plan: Acute blood loss anemia likely from GI bleed. EGD, colonoscopy - no source of bleeding identify. CT angio Abd aorta + Iliofemoral: Enhancing polypoid lesion within the 1st segment of the duodenum concerning for slowly bleeding mass. Plan: type and screen Blood transfusion consent was taken Monitor CBC q8h for now Transfuse if Hb <7 GI consult in am Continue with PPI bid Hold ASA and other NSAID 12/[address] Bonilla's team for transgastric endoscopy + possible resection of remnant/dudenal first part if needed requested cardiology input due to severe as appreciate their input 12/19 OR on 12/21 npo at 1 am on 12/21 12/21 100 ml of periop bleed found a bleeding du and clipped saw in recovery room groggy coming out of anesthesia 2 hours procedure weaned ot 50% vm in hte theatre and brought to pacu on 2 liters out ot floor in an hour ODELL (iron deficiency anemia) 12/05/2018 Last Assessment & Plan: Assessment: most recent labs show normal H/H, but does take Ferrous sulfate Bronchitis 08/08/2018 04/08/2022 Postoperative hypertension 04/26 Overview: History: 04/22/2019: AVR Assessment: Requiring NTG infusion postop Plan: Titrate to maintain MAPs 65-75. Last Assessment & Plan: Home meds: losartan 50 - was on losartan-hctz prior to December admission stable PLAN: - hold in setting of ?GI bleed Depression 12/23/2018 Last Assessment & Plan: No suicidal or homicidal ideation. Stable. Continue with Citalopram documented as of this encounter (statuses as of 04/19/2022) [facility]06[facility] History of Past illness Narrative* Problem Noted Date Resolved Date Elective surgery 11/09/2020 04/08/2022 History of UTI 11/06/2020 04/08/2022 Last Assessment & Plan: Assessment: recent, but tx, pre-op WBC normal following UTI Other pancytopenia 01/01/2020 03/27/2020 Transition of care performed with sharing of clinical summary 04/30/2019 03/27/2020 Overview: Indication for Surgery: Prosthetic aortic valve endocarditis Preop LVEF: 75% RVF: Normal Postop LVEF: Normal RVF: Normal Cath: mild non obsx CAD Cards: [facility] EKG: NSR w/ 1st degree Important/Relevant PMH/PSH: 73F from [facility] with GERD, depression, HTN, gastric bypass, PUD with recent GIB, nephrolithiasis, s/p AVR 2002 admitted with prosthetic valve endocarditis c/b severe AI, posterior root abscess, Parkinsons, CKD, overactive bladder Preoperative Hospital Course Admitted 04/10 with severe aortic insufficiency related to endocarditis Airway Difficulty: Grade I - easy Pacing wires: No. A/V pulled 04/30 Chronological list of Surgeries and Major Events 04/22/2019: Redo AVR, MVr_ 04/29/2019: PPM placement A/P of Major Active ICU Problems Cardiac: EP following for pacer dependency with ventricular rate <30 underneath. Continue DDD 80, mA 10, 5. Formal echo 04/26 showed EF 75%, RV normal. NPO, plan for PPM today. Renal:CKD-- SrCr 0.89, downtrending. Avoid nephrotoxic agents, trend fluid balance and electrolytes. 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 Continue ceftriaxone. Transferred to floor 04/29/19 To do or to watch: Access: Right arm PICC placed 04/30. - POD#7. No tubes/wires. AV paced. On room air. - s/p Redo AVR, MVr for IE: Surg path reviewed. Bacterial PCR + Streptococcus mutans. ID following. PICC placed 04/30. CoPat started. Continue Ceftriaxone through 06/03. Post-op echo completed 04/26: EF 75%, trace Mr, trivial-small pericardial effusion. - s/p PPM: Device check completed 04/30. - FVO: Up 3.7kg. Continue lasix - Dispo: 73 yo female from [place], [place]. Daughter can help. SW following. PT/OT rec home PT/OT; HHC for IV antibiotics. Face-to face ordered. Should be ready for dc when accepting facility found. [facility] f/u scheduled. [facility] f/u requested. Discharge Planning: Anticipated Discharge Date: 05/01/2019 if HHC arranged. Barriers to Discharge: Other: accepting home care agency and - In Process Care Management Discharge Needs: Needs Prior to Discharge: Accepting Facility;IV Antibiotics Volume overload 04/30/2019 04/08/2022 Overview: History: Post-op problem. Assessment: up 3.7kg. I/O -400 (not fully recorded). BUN/CR 30/0.9. K 5.2 Plan: Continue IV diuretics. Replace electrolytes prn. Montior labs, I/O. Monitor daily weight. Continue fluid restriction. Mobilize. Discharge planning issues 04/30/20192019 Overview: 73 yo female from [place], [place]. Daughter can help. SW following. PT/OT rec home PT/OT; HHC for IV antibiotics. Face-to face ordered. Should be ready for dc when accepting facility found. Atelectasis 04/26/2019 04/08/2022 Overview: History: Postop Assessment: Bibasilar on am CXR. Good gas exchange on room air. Plan: Continue BPH, OOB daily and Pep. Thrombocytopenia 04/24/2019 04/26/2019 On mechanically assisted ventilation 04/22/2019 04/23/2019 Overview: History: Post op cardiac surgery requiring elective intubation Assessment: Grade I airway Plan: WTE Post-operative pain 04/22/2019 05/01/2019 Overview: History: 04/22/2019: AVR Assessment: Pain control adequate Plan: Continue scheduled Tylenol and prn oxycodone and tramadol. Preop testing 04/19/2019 04/30/2019 Overview: Date of Consult: 04/12 Type of surgery: Redo AVR/root +/- MVr Date preop tests completed:April 19, 2019 Waiting on: Date Surgeon reviewed Patient: 04/18 Patient work up completed: Waiting on: Date of decision by Surgeon: April 19, 2019 Deemed candidate: Yes Date of surgery: 04/22 Reasons for delay: na [facility] and [facility] PRE-OP CHECKLIST Surgeon: Dr. Forrest Rios Informed Consent Completed: pending STS Score: RISK SCORES Procedure: Isolated AVR CALCULATE Risk of Mortality: 4.605% Renal Failure: 3.404% Permanent Stroke: 2.380% Prolonged Ventilation: 22.071% DSW Infection: 0.035% Reoperation: 7.729% Morbidity or Mortality: 27.681% Short Length of Stay: 12.366% Long Length of Stay: 20.018% CAD: No Is intended procedure a CABG: No - H & P completed: Yes PA/LAT: Completed CT: Completed MRI: N/A LE US: N/A Cath: Yes - reviewed: Yes EKG: Completed Is patient on Amiodarone? Yes Echo:Completed EF %: 70 PI's: N/A Carotid: Completed Mapping: N/A Dental: Completed PFT's: Completed CBC, Coags, BMP, Mg, Phos Recent Labs 04/19/19 0507 04/18/19 0800 04/18/19 0455 04/17/19 0511 WBC 7.49 8.34 7.77 7.81 HB 7.9* 8.2* 7.3* 8.4* HCT 24.7* 25.7* 23.6* 26.5* PLT 144* 151 137* 155 NA 135* -- 134* 134* K 4.5 -- 4.4 4.4 CHLOR 103 -- 102 102 CO2 20* -- 23 22 BUN 37* -- 34* 27* CREAT 1.05* -- 1.03* 1.01* GLUC 83 -- 80 77 CA 8.2* -- 8.3* 8.2* MG 2.0 -- 2.0 1.9 UA: Normal HCG:N/A ABO/ABO Confirmed: Yes Blood ordered: Yes POS ABS 4units Willing to accept blood: Yes SA Swab: Yes - results: Pending Last Dose of Anticoagulation: none Op Note: Yes with Dr. Rios Pacemaker Check: No Implants: no Consults: ID, GI DM: No Cardiac Surgical prep: Yes SIGNATURE: Myrna Car RN LABOR RELATIONS ANALYST.CONFLICTS ANALYST DATE of SERVICE: 04/19/2019 TIME of SERVICE: 11:16 AM CHECKED BY: Moderate protein-calorie malnutrition 04/12/2019 10/02/2020 Overview: History: Post-op problem. Albumin 2.9. Noted on post-op nutrition screen. Assessment: 75% of meals consumed per I/O. Plan: Follow nutrition recs. Last Assessment & Plan: - nutrition referral Parkinson's disease 03/04/2019 06/11/2019 Overview: History: Takes Sinement at home Assessment: Stable postop Plan: Resume home regimen. Last Assessment & Plan: Assessment: on Sinemet PLAN: - cont home meds Acute kidney injury 03/04/2019 03/06/2019 Last Assessment & Plan: Assessment: - noted to have HILARIO at OSH with Cr of 1.31 on presentation, improved with fluids - likely related to blood loss RESOLVED PLAN: - monitor - avoid nephrotoxins - renally dose meds Acute cystitis with hematuria 03/04/2019 Last Assessment & Plan: Assessment: - abnormal UA at OSH, was given Rocephin at OSH ED - OSH urine cx: presumptive E coli. pansensitive - appears only received one dose of Rocephin PLAN: - complete treatment with Bactrim Elevated troponin 12/06/2018 12/23/2018 Last Assessment & Plan: No chest pain. EKG - NSR, LVH, LAD Plan: repeat EKG and troponin Trend troponin if remains elevated here GI bleed 12/05/2018 12/23/2018 Last Assessment & Plan: Acute blood loss anemia likely from GI bleed. EGD, colonoscopy - no source of bleeding identify. CT angio Abd aorta + Iliofemoral: Enhancing polypoid lesion within the 1st segment of the duodenum concerning for slowly bleeding mass. Plan: type and screen Blood transfusion consent was taken Monitor CBC q8h for now Transfuse if Hb <7 GI consult in am Continue with PPI bid Hold ASA and other NSAID 12/[address] Bonilla's team for transgastric endoscopy + possible resection of remnant/dudenal first part if needed requested cardiology input due to severe as appreciate their input 12/19 OR on 12/21 npo at 1 am on 12/21 12/21 100 ml of periop bleed found a bleeding du and clipped saw in recovery room groggy coming out of anesthesia 2 hours procedure weaned ot 50% vm in hte theatre and brought to pacu on 2 liters out ot floor in an hour ODELL (iron deficiency anemia) 12/05/2018 Last Assessment & Plan: Assessment: most recent labs show normal H/H, but does take Ferrous sulfate Bronchitis 08/08/2018 04/08/2022 Postoperative hypertension 04/26 Overview: History: 04/22/2019: AVR Assessment: Requiring NTG infusion postop Plan: Titrate to maintain MAPs 65-75. Last Assessment & Plan: Home meds: losartan 50 - was on losartan-hctz prior to December admission stable PLAN: - hold in setting of ?GI bleed Depression 12/23/2018 Last Assessment & Plan: No suicidal or homicidal ideation. Stable. Continue with Citalopram documented as of this encounter (statuses as of 04/22/2022) [facility]06-07-2021 History of Past illness Narrative* Problem Noted Date Resolved Date Elective surgery 11/09/2020 04/08/2022 History of UTI 11/06/2020 04/08/2022 Last Assessment & Plan: Assessment: recent, but tx, pre-op WBC normal following UTI Other pancytopenia 01/01/2020 03/27/2020 Transition of care performed with sharing of clinical summary 04/30/2019 03/27/2020 Overview: Indication for Surgery: Prosthetic aortic valve endocarditis Preop LVEF: 75% RVF: Normal Postop LVEF: Normal RVF: Normal Cath: mild non obsx CAD Cards: [facility] EKG: NSR w/ 1st degree Important/Relevant PMH/PSH: 73F from [facility] with GERD, depression, HTN, gastric bypass, PUD with recent GIB, nephrolithiasis, s/p AVR 2002 admitted with prosthetic valve endocarditis c/b severe AI, posterior root abscess, Parkinsons, CKD, overactive bladder Preoperative Hospital Course Admitted 04/10 with severe aortic insufficiency related to endocarditis Airway Difficulty: Grade I - easy Pacing wires: No. A/V pulled 04/30 Chronological list of Surgeries and Major Events 04/22/2019: Redo AVR, MVr_ 04/29/2019: PPM placement A/P of Major Active ICU Problems Cardiac: EP following for pacer dependency with ventricular rate <30 underneath. Continue DDD 80, mA 10, 5. Formal echo 04/26 showed EF 75%, RV normal. NPO, plan for PPM today. Renal:CKD-- SrCr 0.89, downtrending. Avoid nephrotoxic agents, trend fluid balance and electrolytes. 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 Continue ceftriaxone. Transferred to floor 04/29/19 To do or to watch: Access: Right arm PICC placed 04/30. - POD#7. No tubes/wires. AV paced. On room air. - s/p Redo AVR, MVr for IE: Surg path reviewed. Bacterial PCR + Streptococcus mutans. ID following. PICC placed 04/30. CoPat started. Continue Ceftriaxone through 06/03. Post-op echo completed 04/26: EF 75%, trace Mr, trivial-small pericardial effusion. - s/p PPM: Device check completed 04/30. - FVO: Up 3.7kg. Continue lasix - Dispo: 73 yo female from [place], [place]. Daughter can help. SW following. PT/OT rec home PT/OT; HHC for IV antibiotics. Face-to face ordered. Should be ready for dc when accepting facility found. [facility] f/u scheduled. [facility] O[facility] f/u requested. Discharge Planning: Anticipated Discharge Date: 05/01/2019 if HHC arranged. Barriers to Discharge: Other: accepting home care agency and - In Process Care Management Discharge Needs: Needs Prior to Discharge: Accepting Facility;IV Antibiotics Volume overload 04/30/2019 04/08/2022 Overview: History: Post-op problem. Assessment: up 3.7kg. I/O -400 (not fully recorded). BUN/CR 30/0.9. K 5.2 Plan: Continue IV diuretics. Replace electrolytes prn. Montior labs, I/O. Monitor daily weight. Continue fluid restriction. Mobilize. Discharge planning issues 04/30/20192019 Overview: 73 yo female from [place], [place]. Daughter can help. SW following. PT/OT rec home PT/OT; HHC for IV antibiotics. Face-to face ordered. Should be ready for dc when accepting facility found. Atelectasis 04/26/2019 04/08/2022 Overview: History: Postop Assessment: Bibasilar on am CXR. Good gas exchange on room air. Plan: Continue BPH, OOB daily and Pep. Thrombocytopenia 04/24/2019 04/26/2019 On mechanically assisted ventilation 04/22/2019 04/23/2019 Overview: History: Post op cardiac surgery requiring elective intubation Assessment: Grade I airway Plan: WTE Post-operative pain 04/22/2019 05/01/2019 Overview: History: 04/22/2019: AVR Assessment: Pain control adequate Plan: Continue scheduled Tylenol and prn oxycodone and tramadol. Preop testing 04/19/2019 04/30/2019 Overview: Date of Consult: 04/12 Type of surgery: Redo AVR/root +/- MVr Date preop tests completed:April 19, 2019 Waiting on: Date Surgeon reviewed Patient: 04/18 Patient work up completed: Waiting on: Date of decision by Surgeon: April 19, 2019 Deemed candidate: Yes Date of surgery: 04/22 Reasons for delay: na [facility]ART and [facility]ULAR INSTITUTE PRE-OP CHECKLIST Surgeon: Dr. Forrest Rios Informed Consent Completed: pending STS Score: RISK SCORES Procedure: Isolated AVR CALCULATE Risk of Mortality: 4.605% Renal Failure: 3.404% Permanent Stroke: 2.380% Prolonged Ventilation: 22.071% DSW Infection: 0.035% Reoperation: 7.729% Morbidity or Mortality: 27.681% Short Length of Stay: 12.366% Long Length of Stay: 20.018% CAD: No Is intended procedure a CABG: No - H & P completed: Yes PA/LAT: Completed CT: Completed MRI: N/A LE US: N/A Cath: Yes - reviewed: Yes EKG: Completed Is patient on Amiodarone? Yes Echo:Completed EF %: 70 PI's: N/A Carotid: Completed Mapping: N/A Dental: Completed PFT's: Completed CBC, Coags, BMP, Mg, Phos Recent Labs 04/19/19 0507 04/18/19 0800 04/18/19 0455 04/17/19 0511 WBC 7.49 8.34 7.77 7.81 HB 7.9* 8.2* 7.3* 8.4* HCT 24.7* 25.7* 23.6* 26.5* PLT 144* 151 137* 155 NA 135* -- 134* 134* K 4.5 -- 4.4 4.4 CHLOR 103 -- 102 102 CO2 20* -- 23 22 BUN 37* -- 34* 27* CREAT 1.05* -- 1.03* 1.01* GLUC 83 -- 80 77 CA 8.2* -- 8.3* 8.2* MG 2.0 -- 2.0 1.9 UA: Normal HCG:N/A ABO/ABO Confirmed: Yes Blood ordered: Yes POS ABS 4units Willing to accept blood: Yes SA Swab: Yes - results: Pending Last Dose of Anticoagulation: none Op Note: Yes with Dr. Rios Pacemaker Check: No Implants: no Consults: ID, GI DM: No Cardiac Surgical prep: Yes SIGNATURE: Myrna Car RN LABOR RELATIONS ANALYST.CONFLICTS ANALYST DATE of SERVICE: 04/19/2019 TIME of SERVICE: 11:16 AM CHECKED BY: Moderate protein-calorie malnutrition 04/12/2019 10/02/2020 Overview: History: Post-op problem. Albumin 2.9. Noted on post-op nutrition screen. Assessment: 75% of meals consumed per I/O. Plan: Follow nutrition recs. Last Assessment & Plan: - nutrition referral Parkinson's disease 03/04/2019 06/11/2019 Overview: History: Takes Sinement at home Assessment: Stable postop Plan: Resume home regimen. Last Assessment & Plan: Assessment: on Sinemet PLAN: - cont home meds Acute kidney injury 03/04/2019 03/06/2019 Last Assessment & Plan: Assessment: - noted to have HILARIO at OSH with Cr of 1.31 on presentation, improved with fluids - likely related to blood loss RESOLVED PLAN: - monitor - avoid nephrotoxins - renally dose meds Acute cystitis with hematuria 03/04/2019 Last Assessment & Plan: Assessment: - abnormal UA at OSH, was given Rocephin at OSH ED - OSH urine cx: presumptive E coli. pansensitive - appears only received one dose of Rocephin PLAN: - complete treatment with Bactrim Elevated troponin 12/06/2018 12/23/2018 Last Assessment & Plan: No chest pain. EKG - NSR, LVH, LAD Plan: repeat EKG and troponin Trend troponin if remains elevated here GI bleed 12/05/2018 12/23/2018 Last Assessment & Plan: Acute blood loss anemia likely from GI bleed. EGD, colonoscopy - no source of bleeding identify. CT angio Abd aorta + Iliofemoral: Enhancing polypoid lesion within the 1st segment of the duodenum concerning for slowly bleeding mass. Plan: type and screen Blood transfusion consent was taken Monitor CBC q8h for now Transfuse if Hb <7 GI consult in am Continue with PPI bid Hold ASA and other NSAID 12/[address] Bonilla's team for transgastric endoscopy + possible resection of remnant/dudenal first part if needed requested cardiology input due to severe as appreciate their input 12/19 OR on 12/21 npo at 1 am on 12/21 12/21 100 ml of periop bleed found a bleeding du and clipped saw in recovery room groggy coming out of anesthesia 2 hours procedure weaned ot 50% vm in hte theatre and brought to pacu on 2 liters out ot floor in an hour ODELL (iron deficiency anemia) 12/05/2018 Last Assessment & Plan: Assessment: most recent labs show normal H/H, but does take Ferrous sulfate Bronchitis 08/08/2018 04/08/2022 Postoperative hypertension 04/26 Overview: History: 04/22/2019: AVR Assessment: Requiring NTG infusion postop Plan: Titrate to maintain MAPs 65-75. Last Assessment & Plan: Home meds: losartan 50 - was on losartan-hctz prior to December admission stable PLAN: - hold in setting of ?GI bleed Depression 12/23/2018 Last Assessment & Plan: No suicidal or homicidal ideation. Stable. Continue with Citalopram documented as of this encounter (statuses as of 05/12/2022) [facility]06-07-2021 History of Past illness Narrative* Problem Noted Date Resolved Date Elective surgery 11/09/2020 04/08/2022 History of UTI 11/06/2020 04/08/2022 Last Assessment & Plan: Assessment: recent, but tx, pre-op WBC normal following UTI Other pancytopenia 01/01/2020 03/27/2020 Transition of care performed with sharing of clinical summary 04/30/2019 03/27/2020 Overview: Indication for Surgery: Prosthetic aortic valve endocarditis Preop LVEF: 75% RVF: Normal Postop LVEF: Normal RVF: Normal Cath: mild non obsx CAD Cards: [facility] EKG: NSR w/ 1st degree Important/Relevant PMH/PSH: 73F from [facility] with GERD, depression, HTN, gastric bypass, PUD with recent GIB, nephrolithiasis, s/p AVR 2002 admitted with prosthetic valve endocarditis c/b severe AI, posterior root abscess, Parkinsons, CKD, overactive bladder Preoperative Hospital Course Admitted 04/10 with severe aortic insufficiency related to endocarditis Airway Difficulty: Grade I - easy Pacing wires: No. A/V pulled 04/30 Chronological list of Surgeries and Major Events 04/22/2019: Redo AVR, MVr_ 04/29/2019: PPM placement A/P of Major Active ICU Problems Cardiac: EP following for pacer dependency with ventricular rate <30 underneath. Continue DDD 80, mA 10, 5. Formal echo 04/26 showed EF 75%, RV normal. NPO, plan for PPM today. Renal:CKD-- SrCr 0.89, downtrending. Avoid nephrotoxic agents, trend fluid balance and electrolytes. 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 Continue ceftriaxone. Transferred to floor 04/29/19 To do or to watch: Access: Right arm PICC placed 04/30. - POD#7. No tubes/wires. AV paced. On room air. - s/p Redo AVR, MVr for IE: Surg path reviewed. Bacterial PCR + Streptococcus mutans. ID following. PICC placed 04/30. CoPat started. Continue Ceftriaxone through 06/03. Post-op echo completed 04/26: EF 75%, trace Mr, trivial-small pericardial effusion. - s/p PPM: Device check completed 04/30. - FVO: Up 3.7kg. Continue lasix - Dispo: 73 yo female from [place], [place]. Daughter can help. SW following. PT/OT rec home PT/OT; C for IV antibiotics. Face-to face ordered. Should be ready for dc when accepting facility found. [facility] f/u scheduled. [facility] O[facility] f/u requested. Discharge Planning: Anticipated Discharge Date: 05/01/2019 if HHC arranged. Barriers to Discharge: Other: accepting home care agency and - In Process Care Management Discharge Needs: Needs Prior to Discharge: Accepting Facility;IV Antibiotics Volume overload 04/30/2019 04/08/2022 Overview: History: Post-op problem. Assessment: up 3.7kg. I/O -400 (not fully recorded). BUN/CR 30/0.9. K 5.2 Plan: Continue IV diuretics. Replace electrolytes prn. Montior labs, I/O. Monitor daily weight. Continue fluid restriction. Mobilize. Discharge planning issues 04/30/20192019 Overview: 73 yo female from [place], [place]. Daughter can help. SW following. PT/OT rec home PT/OT; C for IV antibiotics. Face-to face ordered. Should be ready for dc when accepting facility found. Atelectasis 04/26/2019 04/08/2022 Overview: History: Postop Assessment: Bibasilar on am CXR. Good gas exchange on room air. Plan: Continue BPH, OOB daily and Pep. Thrombocytopenia 04/24/2019 04/26/2019 On mechanically assisted ventilation 04/22/2019 04/23/2019 Overview: History: Post op cardiac surgery requiring elective intubation Assessment: Grade I airway Plan: WTE Post-operative pain 04/22/2019 05/01/2019 Overview: History: 04/22/2019: AVR Assessment: Pain control adequate Plan: Continue scheduled Tylenol and prn oxycodone and tramadol. Preop testing 04/19/2019 04/30/2019 Overview: Date of Consult: 04/12 Type of surgery: Redo AVR/root +/- MVr Date preop tests completed:April 19, 2019 Waiting on: Date Surgeon reviewed Patient: 04/18 Patient work up completed: Waiting on: Date of decision by Surgeon: April 19, 2019 Deemed candidate: Yes Date of surgery: 04/22 Reasons for delay: na [facility] and [facility] PRE-OP CHECKLIST Surgeon: Dr. Forrest Rios Informed Consent Completed: pending STS Score: RISK SCORES Procedure: Isolated AVR CALCULATE Risk of Mortality: 4.605% Renal Failure: 3.404% Permanent Stroke: 2.380% Prolonged Ventilation: 22.071% DSW Infection: 0.035% Reoperation: 7.729% Morbidity or Mortality: 27.681% Short Length of Stay: 12.366% Long Length of Stay: 20.018% CAD: No Is intended procedure a CABG: No - H & P completed: Yes PA/LAT: Completed CT: Completed MRI: N/A LE US: N/A Cath: Yes - reviewed: Yes EKG: Completed Is patient on Amiodarone? Yes Echo:Completed EF %: 70 PI's: N/A Carotid: Completed Mapping: N/A Dental: Completed PFT's: Completed CBC, Coags, BMP, Mg, Phos Recent Labs 04/19/19 0507 04/18/19 0800 04/18/19 0455 04/17/19 0511 WBC 7.49 8.34 7.77 7.81 HB 7.9* 8.2* 7.3* 8.4* HCT 24.7* 25.7* 23.6* 26.5* PLT 144* 151 137* 155 NA 135* -- 134* 134* K 4.5 -- 4.4 4.4 CHLOR 103 -- 102 102 CO2 20* -- 23 22 BUN 37* -- 34* 27* CREAT 1.05* -- 1.03* 1.01* GLUC 83 -- 80 77 CA 8.2* -- 8.3* 8.2* MG 2.0 -- 2.0 1.9 UA: Normal HCG:N/A ABO/ABO Confirmed: Yes Blood ordered: Yes POS ABS 4units Willing to accept blood: Yes SA Swab: Yes - results: Pending Last Dose of Anticoagulation: none Op Note: Yes with Dr. Rios Pacemaker Check: No Implants: no Consults: ID, GI DM: No Cardiac Surgical prep: Yes SIGNATURE: Myrna Car RN LABOR RELATIONS ANALYST.CONFLICTS ANALYST DATE of SERVICE: 04/19/2019 TIME of SERVICE: 11:16 AM CHECKED BY: Moderate protein-calorie malnutrition 04/12/2019 10/02/2020 Overview: History: Post-op problem. Albumin 2.9. Noted on post-op nutrition screen. Assessment: 75% of meals consumed per I/O. Plan: Follow nutrition recs. Last Assessment & Plan: - nutrition referral Parkinson's disease 03/04/2019 06/11/2019 Overview: History: Takes Sinement at home Assessment: Stable postop Plan: Resume home regimen. Last Assessment & Plan: Assessment: on Sinemet PLAN: - cont home meds Acute kidney injury 03/04/2019 03/06/2019 Last Assessment & Plan: Assessment: - noted to have HILARIO at OSH with Cr of 1.31 on presentation, improved with fluids - likely related to blood loss RESOLVED PLAN: - monitor - avoid nephrotoxins - renally dose meds Acute cystitis with hematuria 03/04/2019 Last Assessment & Plan: Assessment: - abnormal UA at OSH, was given Rocephin at OSH ED - OSH urine cx: presumptive E coli. pansensitive - appears only received one dose of Rocephin PLAN: - complete treatment with Bactrim Elevated troponin 12/06/2018 12/23/2018 Last Assessment & Plan: No chest pain. EKG - NSR, LVH, LAD Plan: repeat EKG and troponin Trend troponin if remains elevated here GI bleed 12/05/2018 12/23/2018 Last Assessment & Plan: Acute blood loss anemia likely from GI bleed. EGD, colonoscopy - no source of bleeding identify. CT angio Abd aorta + Iliofemoral: Enhancing polypoid lesion within the 1st segment of the duodenum concerning for slowly bleeding mass. Plan: type and screen Blood transfusion consent was taken Monitor CBC q8h for now Transfuse if Hb <7 GI consult in am Continue with PPI bid Hold ASA and other NSAID 12/[address] Bonilla's team for transgastric endoscopy + possible resection of remnant/dudenal first part if needed requested cardiology input due to severe as appreciate their input 12/19 OR on 12/21 npo at 1 am on 12/21 12/21 100 ml of periop bleed found a bleeding du and clipped saw in recovery room groggy coming out of anesthesia 2 hours procedure weaned ot 50% vm in hte theatre and brought to pacu on 2 liters out ot floor in an hour ODELL (iron deficiency anemia) 12/05/2018 Last Assessment & Plan: Assessment: most recent labs show normal H/H, but does take Ferrous sulfate Bronchitis 08/08/2018 04/08/2022 Postoperative hypertension 04/26 Overview: History: 04/22/2019: AVR Assessment: Requiring NTG infusion postop Plan: Titrate to maintain MAPs 65-75. Last Assessment & Plan: Home meds: losartan 50 - was on losartan-hctz prior to December admission stable PLAN: - hold in setting of ?GI bleed Depression 12/23/2018 Last Assessment & Plan: No suicidal or homicidal ideation. Stable. Continue with Citalopram documented as of this encounter (statuses as of 05/12/2022) [facility]06-[facility]-2021 History of Past illness Narrative* Problem Noted Date Resolved Date Elective surgery 11/09/2020 04/08/2022 History of UTI 11/06/2020 04/08/2022 Last Assessment & Plan: Assessment: recent, but tx, pre-op WBC normal following UTI Other pancytopenia 01/01/2020 03/27/2020 Transition of care performed with sharing of clinical summary 04/30/2019 03/27/2020 Overview: Indication for Surgery: Prosthetic aortic valve endocarditis Preop LVEF: 75% RVF: Normal Postop LVEF: Normal RVF: Normal Cath: mild non obsx CAD Cards: [facility] EKG: NSR w/ 1st degree Important/Relevant PMH/PSH: 73F from [facility] with GERD, depression, HTN, gastric bypass, PUD with recent GIB, nephrolithiasis, s/p AVR 2002 admitted with prosthetic valve endocarditis c/b severe AI, posterior root abscess, Parkinsons, CKD, overactive bladder Preoperative Hospital Course Admitted 04/10 with severe aortic insufficiency related to endocarditis Airway Difficulty: Grade I - easy Pacing wires: No. A/V pulled 04/30 Chronological list of Surgeries and Major Events 04/22/2019: Redo AVR, MVr_ 04/29/2019: PPM placement A/P of Major Active ICU Problems Cardiac: EP following for pacer dependency with ventricular rate <30 underneath. Continue DDD 80, mA 10, 5. Formal echo 04/26 showed EF 75%, RV normal. NPO, plan for PPM today. Renal:CKD-- SrCr 0.89, downtrending. Avoid nephrotoxic agents, trend fluid balance and electrolytes. 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 Continue ceftriaxone. Transferred to floor 04/29/19 To do or to watch: Access: Right arm PICC placed 04/30. - POD#7. No tubes/wires. AV paced. On room air. - s/p Redo AVR, MVr for IE: Surg path reviewed. Bacterial PCR + Streptococcus mutans. ID following. PICC placed 04/30. CoPat started. Continue Ceftriaxone through 06/03. Post-op echo completed 04/26: EF 75%, trace Mr, trivial-small pericardial effusion. - s/p PPM: Device check completed 04/30. - FVO: Up 3.7kg. Continue lasix - Dispo: 73 yo female from [place], [place]. Daughter can help. SW following. PT/OT rec home PT/OT; HHC for IV antibiotics. Face-to face ordered. Should be ready for dc when accepting facility found. [facility] f/u scheduled. [facility] f/u requested. Discharge Planning: Anticipated Discharge Date: 05/01/2019 if HHC arranged. Barriers to Discharge: Other: accepting home care agency and - In Process Care Management Discharge Needs: Needs Prior to Discharge: Accepting Facility;IV Antibiotics Volume overload 04/30/2019 04/08/2022 Overview: History: Post-op problem. Assessment: up 3.7kg. I/O -400 (not fully recorded). BUN/CR 30/0.9. K 5.2 Plan: Continue IV diuretics. Replace electrolytes prn. Montior labs, I/O. Monitor daily weight. Continue fluid restriction. Mobilize. Discharge planning issues 04/30/20192019 Overview: 73 yo female from [place], [place]. Daughter can help. SW following. PT/OT rec home PT/OT; HHC for IV antibiotics. Face-to face ordered. Should be ready for dc when accepting facility found. Atelectasis 04/26/2019 04/08/2022 Overview: History: Postop Assessment: Bibasilar on am CXR. Good gas exchange on room air. Plan: Continue BPH, OOB daily and Pep. Thrombocytopenia 04/24/2019 04/26/2019 On mechanically assisted ventilation 04/22/2019 04/23/2019 Overview: History: Post op cardiac surgery requiring elective intubation Assessment: Grade I airway Plan: WTE Post-operative pain 04/22/2019 05/01/2019 Overview: History: 04/22/2019: AVR Assessment: Pain control adequate Plan: Continue scheduled Tylenol and prn oxycodone and tramadol. Preop testing 04/19/2019 04/30/2019 Overview: Date of Consult: 04/12 Type of surgery: Redo AVR/root +/- MVr Date preop tests completed:April 19, 2019 Waiting on: Date Surgeon reviewed Patient: 04/18 Patient work up completed: Waiting on: Date of decision by Surgeon: April 19, 2019 Deemed candidate: Yes Date of surgery: 04/22 Reasons for delay: na [facility]ART and [facility]ASCULAR INSTITUTE PRE-OP CHECKLIST Surgeon: Dr. Forrest Rios Informed Consent Completed: pending STS Score: RISK SCORES Procedure: Isolated AVR CALCULATE Risk of Mortality: 4.605% Renal Failure: 3.404% Permanent Stroke: 2.380% Prolonged Ventilation: 22.071% DSW Infection: 0.035% Reoperation: 7.729% Morbidity or Mortality: 27.681% Short Length of Stay: 12.366% Long Length of Stay: 20.018% CAD: No Is intended procedure a CABG: No - H & P completed: Yes PA/LAT: Completed CT: Completed MRI: N/A LE US: N/A Cath: Yes - reviewed: Yes EKG: Completed Is patient on Amiodarone? Yes Echo:Completed EF %: 70 PI's: N/A Carotid: Completed Mapping: N/A Dental: Completed PFT's: Completed CBC, Coags, BMP, Mg, Phos Recent Labs 04/19/19 0507 04/18/19 0800 04/18/19 0455 04/17/19 0511 WBC 7.49 8.34 7.77 7.81 HB 7.9* 8.2* 7.3* 8.4* HCT 24.7* 25.7* 23.6* 26.5* PLT 144* 151 137* 155 NA 135* -- 134* 134* K 4.5 -- 4.4 4.4 CHLOR 103 -- 102 102 CO2 20* -- 23 22 BUN 37* -- 34* 27* CREAT 1.05* -- 1.03* 1.01* GLUC 83 -- 80 77 CA 8.2* -- 8.3* 8.2* MG 2.0 -- 2.0 1.9 UA: Normal HCG:N/A ABO/ABO Confirmed: Yes Blood ordered: Yes POS ABS 4units Willing to accept blood: Yes SA Swab: Yes - results: Pending Last Dose of Anticoagulation: none Op Note: Yes with Dr. Rios Pacemaker Check: No Implants: no Consults: ID, GI DM: No Cardiac Surgical prep: Yes SIGNATURE: Myrna Car RN LABOR RELATIONS ANALYST.CONFLICTS ANALYST DATE of SERVICE: 04/19/2019 TIME of SERVICE: 11:16 AM CHECKED BY: Moderate protein-calorie malnutrition 04/12/2019 10/02/2020 Overview: History: Post-op problem. Albumin 2.9. Noted on post-op nutrition screen. Assessment: 75% of meals consumed per I/O. Plan: Follow nutrition recs. Last Assessment & Plan: - nutrition referral Parkinson's disease 03/04/2019 06/11/2019 Overview: History: Takes Sinement at home Assessment: Stable postop Plan: Resume home regimen. Last Assessment & Plan: Assessment: on Sinemet PLAN: - cont home meds Acute kidney injury 03/04/2019 03/06/2019 Last Assessment & Plan: Assessment: - noted to have HILARIO at OSH with Cr of 1.31 on presentation, improved with fluids - likely related to blood loss RESOLVED PLAN: - monitor - avoid nephrotoxins - renally dose meds Acute cystitis with hematuria 03/04/2019 Last Assessment & Plan: Assessment: - abnormal UA at OSH, was given Rocephin at OSH ED - OSH urine cx: presumptive E coli. pansensitive - appears only received one dose of Rocephin PLAN: - complete treatment with Bactrim Elevated troponin 12/06/2018 12/23/2018 Last Assessment & Plan: No chest pain. EKG - NSR, LVH, LAD Plan: repeat EKG and troponin Trend troponin if remains elevated here GI bleed 12/05/2018 12/23/2018 Last Assessment & Plan: Acute blood loss anemia likely from GI bleed. EGD, colonoscopy - no source of bleeding identify. CT angio Abd aorta + Iliofemoral: Enhancing polypoid lesion within the 1st segment of the duodenum concerning for slowly bleeding mass. Plan: type and screen Blood transfusion consent was taken Monitor CBC q8h for now Transfuse if Hb <7 GI consult in am Continue with PPI bid Hold ASA and other NSAID 12/[address] Bonilla's team for transgastric endoscopy + possible resection of remnant/dudenal first part if needed requested cardiology input due to severe as appreciate their input 12/19 OR on 12/21 npo at 1 am on 12/21 12/21 100 ml of periop bleed found a bleeding du and clipped saw in recovery room groggy coming out of anesthesia 2 hours procedure weaned ot 50% vm in hte theatre and brought to pacu on 2 liters out ot floor in an hour ODELL (iron deficiency anemia) 12/05/2018 Last Assessment & Plan: Assessment: most recent labs show normal H/H, but does take Ferrous sulfate Bronchitis 08/08/2018 04/08/2022 Postoperative hypertension 04/26 Overview: History: 04/22/2019: AVR Assessment: Requiring NTG infusion postop Plan: Titrate to maintain MAPs 65-75. Last Assessment & Plan: Home meds: losartan 50 - was on losartan-hctz prior to December admission stable PLAN: - hold in setting of ?GI bleed Depression 12/23/2018 Last Assessment & Plan: No suicidal or homicidal ideation. Stable. Continue with Citalopram documented as of this encounter (statuses as of 05/17/2022) [facility]06-07-2021 History of Past illness Narrative* Problem Noted Date Resolved Date Elective surgery 11/09/2020 04/08/2022 History of UTI 11/06/2020 04/08/2022 Last Assessment & Plan: Assessment: recent, but tx, pre-op WBC normal following UTI Other pancytopenia 01/01/2020 03/27/2020 Transition of care performed with sharing of clinical summary 04/30/2019 03/27/2020 Overview: Indication for Surgery: Prosthetic aortic valve endocarditis Preop LVEF: 75% RVF: Normal Postop LVEF: Normal RVF: Normal Cath: mild non obsx CAD Cards: [facility] EKG: NSR w/ 1st degree Important/Relevant PMH/PSH: 73F from [facility] with GERD, depression, HTN, gastric bypass, PUD with recent GIB, nephrolithiasis, s/p AVR 2002 admitted with prosthetic valve endocarditis c/b severe AI, posterior root abscess, Parkinsons, CKD, overactive bladder Preoperative Hospital Course Admitted 04/10 with severe aortic insufficiency related to endocarditis Airway Difficulty: Grade I - easy Pacing wires: No. A/V pulled 04/30 Chronological list of Surgeries and Major Events 04/22/2019: Redo AVR, MVr_ 04/29/2019: PPM placement A/P of Major Active ICU Problems Cardiac: EP following for pacer dependency with ventricular rate <30 underneath. Continue DDD 80, mA 10, 5. Formal echo 04/26 showed EF 75%, RV normal. NPO, plan for PPM today. Renal:CKD-- SrCr 0.89, downtrending. Avoid nephrotoxic agents, trend fluid balance and electrolytes. 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 Continue ceftriaxone. Transferred to floor 04/29/19 To do or to watch: Access: Right arm PICC placed 04/30. - POD#7. No tubes/wires. AV paced. On room air. - s/p Redo AVR, MVr for IE: Surg path reviewed. Bacterial PCR + Streptococcus mutans. ID following. PICC placed 04/30. CoPat started. Continue Ceftriaxone through 06/03. Post-op echo completed 04/26: EF 75%, trace Mr, trivial-small pericardial effusion. - s/p PPM: Device check completed 04/30. - FVO: Up 3.7kg. Continue lasix - Dispo: 73 yo female from [place], [place]. Daughter can help. SW following. PT/OT rec home PT/OT; HHC for IV antibiotics. Face-to face ordered. Should be ready for dc when accepting facility found. [facility] f/u scheduled. [facility] O[facility] f/u requested. Discharge Planning: Anticipated Discharge Date: 05/01/2019 if HHC arranged. Barriers to Discharge: Other: accepting home care agency and - In Process Care Management Discharge Needs: Needs Prior to Discharge: Accepting Facility;IV Antibiotics Volume overload 04/30/2019 04/08/2022 Overview: History: Post-op problem. Assessment: up 3.7kg. I/O -400 (not fully recorded). BUN/CR 30/0.9. K 5.2 Plan: Continue IV diuretics. Replace electrolytes prn. Montior labs, I/O. Monitor daily weight. Continue fluid restriction. Mobilize. Discharge planning issues 04/30/20192019 Overview: 73 yo female from [place], [place]. Daughter can help. SW following. PT/OT rec home PT/OT; HHC for IV antibiotics. Face-to face ordered. Should be ready for dc when accepting facility found. Atelectasis 04/26/2019 04/08/2022 Overview: History: Postop Assessment: Bibasilar on am CXR. Good gas exchange on room air. Plan: Continue BPH, OOB daily and Pep. Thrombocytopenia 04/24/2019 04/26/2019 On mechanically assisted ventilation 04/22/2019 04/23/2019 Overview: History: Post op cardiac surgery requiring elective intubation Assessment: Grade I airway Plan: WTE Post-operative pain 04/22/2019 05/01/2019 Overview: History: 04/22/2019: AVR Assessment: Pain control adequate Plan: Continue scheduled Tylenol and prn oxycodone and tramadol. Preop testing 04/19/2019 04/30/2019 Overview: Date of Consult: 04/12 Type of surgery: Redo AVR/root +/- MVr Date preop tests completed:April 19, 2019 Waiting on: Date Surgeon reviewed Patient: 04/18 Patient work up completed: Waiting on: Date of decision by Surgeon: April 19, 2019 Deemed candidate: Yes Date of surgery: 04/22 Reasons for delay: na [facility]ART and [facility]ULAR INSTITUTE PRE-OP CHECKLIST Surgeon: Dr. Forrest Rios Informed Consent Completed: pending STS Score: RISK SCORES Procedure: Isolated AVR CALCULATE Risk of Mortality: 4.605% Renal Failure: 3.404% Permanent Stroke: 2.380% Prolonged Ventilation: 22.071% DSW Infection: 0.035% Reoperation: 7.729% Morbidity or Mortality: 27.681% Short Length of Stay: 12.366% Long Length of Stay: 20.018% CAD: No Is intended procedure a CABG: No - H & P completed: Yes PA/LAT: Completed CT: Completed MRI: N/A LE US: N/A Cath: Yes - reviewed: Yes EKG: Completed Is patient on Amiodarone? Yes Echo:Completed EF %: 70 PI's: N/A Carotid: Completed Mapping: N/A Dental: Completed PFT's: Completed CBC, Coags, BMP, Mg, Phos Recent Labs 04/19/19 0507 04/18/19 0800 04/18/19 0455 04/17/19 0511 WBC 7.49 8.34 7.77 7.81 HB 7.9* 8.2* 7.3* 8.4* HCT 24.7* 25.7* 23.6* 26.5* PLT 144* 151 137* 155 NA 135* -- 134* 134* K 4.5 -- 4.4 4.4 CHLOR 103 -- 102 102 CO2 20* -- 23 22 BUN 37* -- 34* 27* CREAT 1.05* -- 1.03* 1.01* GLUC 83 -- 80 77 CA 8.2* -- 8.3* 8.2* MG 2.0 -- 2.0 1.9 UA: Normal HCG:N/A ABO/ABO Confirmed: Yes Blood ordered: Yes POS ABS 4units Willing to accept blood: Yes SA Swab: Yes - results: Pending Last Dose of Anticoagulation: none Op Note: Yes with Dr. Rios Pacemaker Check: No Implants: no Consults: ID, GI DM: No Cardiac Surgical prep: Yes SIGNATURE: Myrna Car RN LABOR RELATIONS ANALYST.CONFLICTS ANALYST DATE of SERVICE: 04/19/2019 TIME of SERVICE: 11:16 AM CHECKED BY: Moderate protein-calorie malnutrition 04/12/2019 10/02/2020 Overview: History: Post-op problem. Albumin 2.9. Noted on post-op nutrition screen. Assessment: 75% of meals consumed per I/O. Plan: Follow nutrition recs. Last Assessment & Plan: - nutrition referral Parkinson's disease 03/04/2019 06/11/2019 Overview: History: Takes Sinement at home Assessment: Stable postop Plan: Resume home regimen. Last Assessment & Plan: Assessment: on Sinemet PLAN: - cont home meds Acute kidney injury 03/04/2019 03/06/2019 Last Assessment & Plan: Assessment: - noted to have HILARIO at OSH with Cr of 1.31 on presentation, improved with fluids - likely related to blood loss RESOLVED PLAN: - monitor - avoid nephrotoxins - renally dose meds Acute cystitis with hematuria 03/04/2019 Last Assessment & Plan: Assessment: - abnormal UA at OSH, was given Rocephin at OSH ED - OSH urine cx: presumptive E coli. pansensitive - appears only received one dose of Rocephin PLAN: - complete treatment with Bactrim Elevated troponin 12/06/2018 12/23/2018 Last Assessment & Plan: No chest pain. EKG - NSR, LVH, LAD Plan: repeat EKG and troponin Trend troponin if remains elevated here GI bleed 12/05/2018 12/23/2018 Last Assessment & Plan: Acute blood loss anemia likely from GI bleed. EGD, colonoscopy - no source of bleeding identify. CT angio Abd aorta + Iliofemoral: Enhancing polypoid lesion within the 1st segment of the duodenum concerning for slowly bleeding mass. Plan: type and screen Blood transfusion consent was taken Monitor CBC q8h for now Transfuse if Hb <7 GI consult in am Continue with PPI bid Hold ASA and other NSAID 12/[address] Bonilla's team for transgastric endoscopy + possible resection of remnant/dudenal first part if needed requested cardiology input due to severe as appreciate their input 12/19 OR on 12/21 npo at 1 am on 12/21 12/21 100 ml of periop bleed found a bleeding du and clipped saw in recovery room groggy coming out of anesthesia 2 hours procedure weaned ot 50% vm in hte theatre and brought to pacu on 2 liters out ot floor in an hour ODELL (iron deficiency anemia) 12/05/2018 Last Assessment & Plan: Assessment: most recent labs show normal H/H, but does take Ferrous sulfate Bronchitis 08/08/2018 04/08/2022 Postoperative hypertension 04/26 Overview: History: 04/22/2019: AVR Assessment: Requiring NTG infusion postop Plan: Titrate to maintain MAPs 65-75. Last Assessment & Plan: Home meds: losartan 50 - was on losartan-hctz prior to December admission stable PLAN: - hold in setting of ?GI bleed Depression 12/23/2018 Last Assessment & Plan: No suicidal or homicidal ideation. Stable. Continue with Citalopram documented as of this encounter (statuses as of 06/06/2022) [facility]06-07-2021 History of Past illness Narrative* Problem Noted Date Resolved Date Elective surgery 11/09/2020 04/08/2022 History of UTI 11/06/2020 04/08/2022 Last Assessment & Plan: Assessment: recent, but tx, pre-op WBC normal following UTI Other pancytopenia 01/01/2020 03/27/2020 Transition of care performed with sharing of clinical summary 04/30/2019 03/27/2020 Overview: Indication for Surgery: Prosthetic aortic valve endocarditis Preop LVEF: 75% RVF: Normal Postop LVEF: Normal RVF: Normal Cath: mild non obsx CAD Cards: [facility] EKG: NSR w/ 1st degree Important/Relevant PMH/PSH: 73F from [facility] with GERD, depression, HTN, gastric bypass, PUD with recent GIB, nephrolithiasis, s/p AVR 2002 admitted with prosthetic valve endocarditis c/b severe AI, posterior root abscess, Parkinsons, CKD, overactive bladder Preoperative Hospital Course Admitted 04/10 with severe aortic insufficiency related to endocarditis Airway Difficulty: Grade I - easy Pacing wires: No. A/V pulled 04/30 Chronological list of Surgeries and Major Events 04/22/2019: Redo AVR, MVr_ 04/29/2019: PPM placement A/P of Major Active ICU Problems Cardiac: EP following for pacer dependency with ventricular rate <30 underneath. Continue DDD 80, mA 10, 5. Formal echo 04/26 showed EF 75%, RV normal. NPO, plan for PPM today. Renal:CKD-- SrCr 0.89, downtrending. Avoid nephrotoxic agents, trend fluid balance and electrolytes. 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 Continue ceftriaxone. Transferred to floor 04/29/19 To do or to watch: Access: Right arm PICC placed 04/30. - POD#7. No tubes/wires. AV paced. On room air. - s/p Redo AVR, MVr for IE: Surg path reviewed. Bacterial PCR + Streptococcus mutans. ID following. PICC placed 04/30. CoPat started. Continue Ceftriaxone through 06/03. Post-op echo completed 04/26: EF 75%, trace Mr, trivial-small pericardial effusion. - s/p PPM: Device check completed 04/30. - FVO: Up 3.7kg. Continue lasix - Dispo: 73 yo female from [place], [place]. Daughter can help. SW following. PT/OT rec home PT/OT; HHC for IV antibiotics. Face-to face ordered. Should be ready for dc when accepting facility found. [facility] f/u scheduled. [facility] f/u requested. Discharge Planning: Anticipated Discharge Date: 05/01/2019 if HHC arranged. Barriers to Discharge: Other: accepting home care agency and - In Process Care Management Discharge Needs: Needs Prior to Discharge: Accepting Facility;IV Antibiotics Volume overload 04/30/2019 04/08/2022 Overview: History: Post-op problem. Assessment: up 3.7kg. I/O -400 (not fully recorded). BUN/CR 30/0.9. K 5.2 Plan: Continue IV diuretics. Replace electrolytes prn. Montior labs, I/O. Monitor daily weight. Continue fluid restriction. Mobilize. Discharge planning issues 04/30/20192019 Overview: 73 yo female from [place], [place]. Daughter can help. SW following. PT/OT rec home PT/OT; HHC for IV antibiotics. Face-to face ordered. Should be ready for dc when accepting facility found. Atelectasis 04/26/2019 04/08/2022 Overview: History: Postop Assessment: Bibasilar on am CXR. Good gas exchange on room air. Plan: Continue BPH, OOB daily and Pep. Thrombocytopenia 04/24/2019 04/26/2019 On mechanically assisted ventilation 04/22/2019 04/23/2019 Overview: History: Post op cardiac surgery requiring elective intubation Assessment: Grade I airway Plan: WTE Post-operative pain 04/22/2019 05/01/2019 Overview: History: 04/22/2019: AVR Assessment: Pain control adequate Plan: Continue scheduled Tylenol and prn oxycodone and tramadol. Preop testing 04/19/2019 04/30/2019 Overview: Date of Consult: 04/12 Type of surgery: Redo AVR/root +/- MVr Date preop tests completed:April 19, 2019 Waiting on: Date Surgeon reviewed Patient: 04/18 Patient work up completed: Waiting on: Date of decision by Surgeon: April 19, 2019 Deemed candidate: Yes Date of surgery: 04/22 Reasons for delay: na [facility]ART and [facility]ASCULAR INSTITUTE PRE-OP CHECKLIST Surgeon: Dr. Forrest Rios Informed Consent Completed: pending STS Score: RISK SCORES Procedure: Isolated AVR CALCULATE Risk of Mortality: 4.605% Renal Failure: 3.404% Permanent Stroke: 2.380% Prolonged Ventilation: 22.071% DSW Infection: 0.035% Reoperation: 7.729% Morbidity or Mortality: 27.681% Short Length of Stay: 12.366% Long Length of Stay: 20.018% CAD: No Is intended procedure a CABG: No - H & P completed: Yes PA/LAT: Completed CT: Completed MRI: N/A LE US: N/A Cath: Yes - reviewed: Yes EKG: Completed Is patient on Amiodarone? Yes Echo:Completed EF %: 70 PI's: N/A Carotid: Completed Mapping: N/A Dental: Completed PFT's: Completed CBC, Coags, BMP, Mg, Phos Recent Labs 04/19/19 0507 04/18/19 0800 04/18/19 0455 04/17/19 0511 WBC 7.49 8.34 7.77 7.81 HB 7.9* 8.2* 7.3* 8.4* HCT 24.7* 25.7* 23.6* 26.5* PLT 144* 151 137* 155 NA 135* -- 134* 134* K 4.5 -- 4.4 4.4 CHLOR 103 -- 102 102 CO2 20* -- 23 22 BUN 37* -- 34* 27* CREAT 1.05* -- 1.03* 1.01* GLUC 83 -- 80 77 CA 8.2* -- 8.3* 8.2* MG 2.0 -- 2.0 1.9 UA: Normal HCG:N/A ABO/ABO Confirmed: Yes Blood ordered: Yes POS ABS 4units Willing to accept blood: Yes SA Swab: Yes - results: Pending Last Dose of Anticoagulation: none Op Note: Yes with Dr. Rios Pacemaker Check: No Implants: no Consults: ID, GI DM: No Cardiac Surgical prep: Yes SIGNATURE: Myrna Car RN LABOR RELATIONS ANALYSTIBAN DATE of SERVICE: 04/19/2019 TIME of SERVICE: 11:16 AM CHECKED BY: Moderate protein-calorie malnutrition 04/12/2019 10/02/2020 Overview: History: Post-op problem. Albumin 2.9. Noted on post-op nutrition screen. Assessment: 75% of meals consumed per I/O. Plan: Follow nutrition recs. Last Assessment & Plan: - nutrition referral Parkinson's disease 03/04/2019 06/11/2019 Overview: History: Takes Sinement at home Assessment: Stable postop Plan: Resume home regimen. Last Assessment & Plan: Assessment: on Sinemet PLAN: - cont home meds Acute kidney injury 03/04/2019 03/06/2019 Last Assessment & Plan: Assessment: - noted to have HILARIO at OSH with Cr of 1.31 on presentation, improved with fluids - likely related to blood loss RESOLVED PLAN: - monitor - avoid nephrotoxins - renally dose meds Acute cystitis with hematuria 03/04/2019 Last Assessment & Plan: Assessment: - abnormal UA at OSH, was given Rocephin at OSH ED - OSH urine cx: presumptive E coli. pansensitive - appears only received one dose of Rocephin PLAN: - complete treatment with Bactrim Elevated troponin 12/06/2018 12/23/2018 Last Assessment & Plan: No chest pain. EKG - NSR, LVH, LAD Plan: repeat EKG and troponin Trend troponin if remains elevated here GI bleed 12/05/2018 12/23/2018 Last Assessment & Plan: Acute blood loss anemia likely from GI bleed. EGD, colonoscopy - no source of bleeding identify. CT angio Abd aorta + Iliofemoral: Enhancing polypoid lesion within the 1st segment of the duodenum concerning for slowly bleeding mass. Plan: type and screen Blood transfusion consent was taken Monitor CBC q8h for now Transfuse if Hb <7 GI consult in am Continue with PPI bid Hold ASA and other NSAID 12/[address] Bonilla's team for transgastric endoscopy + possible resection of remnant/dudenal first part if needed requested cardiology input due to severe as appreciate their input 12/19 OR on 12/21 npo at 1 am on 12/21 12/21 100 ml of periop bleed found a bleeding du and clipped saw in recovery room groggy coming out of anesthesia 2 hours procedure weaned ot 50% vm in hte theatre and brought to pacu on 2 liters out ot floor in an hour ODELL (iron deficiency anemia) 12/05/2018 Last Assessment & Plan: Assessment: most recent labs show normal H/H, but does take Ferrous sulfate Bronchitis 08/08/2018 04/08/2022 Postoperative hypertension 04/26 Overview: History: 04/22/2019: AVR Assessment: Requiring NTG infusion postop Plan: Titrate to maintain MAPs 65-75. Last Assessment & Plan: Home meds: losartan 50 - was on losartan-hctz prior to December admission stable PLAN: - hold in setting of ?GI bleed Depression 12/23/2018 Last Assessment & Plan: No suicidal or homicidal ideation. Stable. Continue with Citalopram documented as of this encounter (statuses as of 06/07/2022) [facility]06-07-2021 History of Past illness Narrative* Problem Noted Date Resolved Date Elective surgery 11/09/2020 04/08/2022 History of UTI 11/06/2020 04/08/2022 Last Assessment & Plan: Assessment: recent, but tx, pre-op WBC normal following UTI Other pancytopenia 01/01/2020 03/27/2020 Transition of care performed with sharing of clinical summary 04/30/2019 03/27/2020 Overview: Indication for Surgery: Prosthetic aortic valve endocarditis Preop LVEF: 75% RVF: Normal Postop LVEF: Normal RVF: Normal Cath: mild non obsx CAD Cards: [facility] EKG: NSR w/ 1st degree Important/Relevant PMH/PSH: 73F from [facility] with GERD, depression, HTN, gastric bypass, PUD with recent GIB, nephrolithiasis, s/p AVR 2002 admitted with prosthetic valve endocarditis c/b severe AI, posterior root abscess, Parkinsons, CKD, overactive bladder Preoperative Hospital Course Admitted 04/10 with severe aortic insufficiency related to endocarditis Airway Difficulty: Grade I - easy Pacing wires: No. A/V pulled 04/30 Chronological list of Surgeries and Major Events 04/22/2019: Redo AVR, MVr_ 04/29/2019: PPM placement A/P of Major Active ICU Problems Cardiac: EP following for pacer dependency with ventricular rate <30 underneath. Continue DDD 80, mA 10, 5. Formal echo 04/26 showed EF 75%, RV normal. NPO, plan for PPM today. Renal:CKD-- SrCr 0.89, downtrending. Avoid nephrotoxic agents, trend fluid balance and electrolytes. 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 Continue ceftriaxone. Transferred to floor 04/29/19 To do or to watch: Access: Right arm PICC placed 04/30. - POD#7. No tubes/wires. AV paced. On room air. - s/p Redo AVR, MVr for IE: Surg path reviewed. Bacterial PCR + Streptococcus mutans. ID following. PICC placed 04/30. CoPat started. Continue Ceftriaxone through 06/03. Post-op echo completed 04/26: EF 75%, trace Mr, trivial-small pericardial effusion. - s/p PPM: Device check completed 04/30. - FVO: Up 3.7kg. Continue lasix - Dispo: 73 yo female from [place], [place]. Daughter can help. SW following. PT/OT rec home PT/OT; [facility] for IV antibiotics. Face-to face ordered. Should be ready for dc when accepting facility found. [facility] f/u scheduled. [facility] f/u requested. Discharge Planning: Anticipated Discharge Date: 05/01/2019 if HHC arranged. Barriers to Discharge: Other: accepting home care agency and - In Process Care Management Discharge Needs: Needs Prior to Discharge: Accepting Facility;IV Antibiotics Volume overload 04/30/2019 04/08/2022 Overview: History: Post-op problem. Assessment: up 3.7kg. I/O -400 (not fully recorded). BUN/CR 30/0.9. K 5.2 Plan: Continue IV diuretics. Replace electrolytes prn. Montior labs, I/O. Monitor daily weight. Continue fluid restriction. Mobilize. Discharge planning issues 04/30/20192019 Overview: 73 yo female from [place], [place]. Daughter can help. SW following. PT/OT rec home PT/OT; [facility] for IV antibiotics. Face-to face ordered. Should be ready for dc when accepting facility found. Atelectasis 04/26/2019 04/08/2022 Overview: History: Postop Assessment: Bibasilar on am CXR. Good gas exchange on room air. Plan: Continue BPH, OOB daily and Pep. Thrombocytopenia 04/24/2019 04/26/2019 On mechanically assisted ventilation 04/22/2019 04/23/2019 Overview: History: Post op cardiac surgery requiring elective intubation Assessment: Grade I airway Plan: WTE Post-operative pain 04/22/2019 05/01/2019 Overview: History: 04/22/2019: AVR Assessment: Pain control adequate Plan: Continue scheduled Tylenol and prn oxycodone and tramadol. Preop testing 04/19/2019 04/30/2019 Overview: Date of Consult: 04/12 Type of surgery: Redo AVR/root +/- MVr Date preop tests completed:April 19, 2019 Waiting on: Date Surgeon reviewed Patient: 04/18 Patient work up completed: Waiting on: Date of decision by Surgeon: April 19, 2019 Deemed candidate: Yes Date of surgery: 04/22 Reasons for delay: na [facility]ART and [facility] PRE-OP CHECKLIST Surgeon: Dr. Forrest Rios Informed Consent Completed: pending STS Score: RISK SCORES Procedure: Isolated AVR CALCULATE Risk of Mortality: 4.605% Renal Failure: 3.404% Permanent Stroke: 2.380% Prolonged Ventilation: 22.071% DSW Infection: 0.035% Reoperation: 7.729% Morbidity or Mortality: 27.681% Short Length of Stay: 12.366% Long Length of Stay: 20.018% CAD: No Is intended procedure a CABG: No - H & P completed: Yes PA/LAT: Completed CT: Completed MRI: N/A LE US: N/A Cath: Yes - reviewed: Yes EKG: Completed Is patient on Amiodarone? Yes Echo:Completed EF %: 70 PI's: N/A Carotid: Completed Mapping: N/A Dental: Completed PFT's: Completed CBC, Coags, BMP, Mg, Phos Recent Labs 04/19/19 0507 04/18/19 0800 04/18/19 0455 04/17/19 0511 WBC 7.49 8.34 7.77 7.81 HB 7.9* 8.2* 7.3* 8.4* HCT 24.7* 25.7* 23.6* 26.5* PLT 144* 151 137* 155 NA 135* -- 134* 134* K 4.5 -- 4.4 4.4 CHLOR 103 -- 102 102 CO2 20* -- 23 22 BUN 37* -- 34* 27* CREAT 1.05* -- 1.03* 1.01* GLUC 83 -- 80 77 CA 8.2* -- 8.3* 8.2* MG 2.0 -- 2.0 1.9 UA: Normal HCG:N/A ABO/ABO Confirmed: Yes Blood ordered: Yes POS ABS 4units Willing to accept blood: Yes SA Swab: Yes - results: Pending Last Dose of Anticoagulation: none Op Note: Yes with Dr. Rios Pacemaker Check: No Implants: no Consults: ID, GI DM: No Cardiac Surgical prep: Yes SIGNATURE: Myrna Car RN LABOR RELATIONS ANALYST.CONFLICTS ANALYST DATE of SERVICE: 04/19/2019 TIME of SERVICE: 11:16 AM CHECKED BY: Moderate protein-calorie malnutrition 04/12/2019 10/02/2020 Overview: History: Post-op problem. Albumin 2.9. Noted on post-op nutrition screen. Assessment: 75% of meals consumed per I/O. Plan: Follow nutrition recs. Last Assessment & Plan: - nutrition referral Parkinson's disease 03/04/2019 06/11/2019 Overview: History: Takes Sinement at home Assessment: Stable postop Plan: Resume home regimen. Last Assessment & Plan: Assessment: on Sinemet PLAN: - cont home meds Acute kidney injury 03/04/2019 03/06/2019 Last Assessment & Plan: Assessment: - noted to have HILARIO at OSH with Cr of 1.31 on presentation, improved with fluids - likely related to blood loss RESOLVED PLAN: - monitor - avoid nephrotoxins - renally dose meds Acute cystitis with hematuria 03/04/2019 Last Assessment & Plan: Assessment: - abnormal UA at OSH, was given Rocephin at OSH ED - OSH urine cx: presumptive E coli. pansensitive - appears only received one dose of Rocephin PLAN: - complete treatment with Bactrim Elevated troponin 12/06/2018 12/23/2018 Last Assessment & Plan: No chest pain. EKG - NSR, LVH, LAD Plan: repeat EKG and troponin Trend troponin if remains elevated here GI bleed 12/05/2018 12/23/2018 Last Assessment & Plan: Acute blood loss anemia likely from GI bleed. EGD, colonoscopy - no source of bleeding identify. CT angio Abd aorta + Iliofemoral: Enhancing polypoid lesion within the 1st segment of the duodenum concerning for slowly bleeding mass. Plan: type and screen Blood transfusion consent was taken Monitor CBC q8h for now Transfuse if Hb <7 GI consult in am Continue with PPI bid Hold ASA and other NSAID 12/[address] Bonilla's team for transgastric endoscopy + possible resection of remnant/dudenal first part if needed requested cardiology input due to severe as appreciate their input 12/19 OR on 12/21 npo at 1 am on 12/21 12/21 100 ml of periop bleed found a bleeding du and clipped saw in recovery room groggy coming out of anesthesia 2 hours procedure weaned ot 50% vm in hte theatre and brought to pacu on 2 liters out ot floor in an hour ODELL (iron deficiency anemia) 12/05/2018 Last Assessment & Plan: Assessment: most recent labs show normal H/H, but does take Ferrous sulfate Bronchitis 08/08/2018 04/08/2022 Postoperative hypertension 04/26 Overview: History: 04/22/2019: AVR Assessment: Requiring NTG infusion postop Plan: Titrate to maintain MAPs 65-75. Last Assessment & Plan: Home meds: losartan 50 - was on losartan-hctz prior to December admission stable PLAN: - hold in setting of ?GI bleed Depression 12/23/2018 Last Assessment & Plan: No suicidal or homicidal ideation. Stable. Continue with Citalopram documented as of this encounter (statuses as of 06/09/2022) [facility]06-07-[facility]21 History of Past illness Narrative* Problem Noted Date Resolved Date Elective surgery 11/09/2020 04/08/2022 History of UTI 11/06/2020 04/08/2022 Last Assessment & Plan: Assessment: recent, but tx, pre-op WBC normal following UTI Other pancytopenia 01/01/2020 03/27/2020 Transition of care performed with sharing of clinical summary 04/30/2019 03/27/2020 Overview: Indication for Surgery: Prosthetic aortic valve endocarditis Preop LVEF: 75% RVF: Normal Postop LVEF: Normal RVF: Normal Cath: mild non obsx CAD Cards: [facility] EKG: NSR w/ 1st degree Important/Relevant PMH/PSH: 73F from [place] with GERD, depression, HTN, gastric bypass, PUD with recent GIB, nephrolithiasis, s/p AVR 2002 admitted with prosthetic valve endocarditis c/b severe AI, posterior root abscess, Parkinsons, CKD, overactive bladder Preoperative Hospital Course Admitted 04/10 with severe aortic insufficiency related to endocarditis Airway Difficulty: Grade I - easy Pacing wires: No. A/V pulled 04/30 Chronological list of Surgeries and Major Events 04/22/2019: Redo AVR, MVr_ 04/29/2019: PPM placement A/P of Major Active ICU Problems Cardiac: EP following for pacer dependency with ventricular rate <30 underneath. Continue DDD 80, mA 10, 5. Formal echo 04/26 showed EF 75%, RV normal. NPO, plan for PPM today. Renal:CKD-- SrCr 0.89, downtrending. Avoid nephrotoxic agents, trend fluid balance and electrolytes. 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 Continue ceftriaxone. Transferred to floor 04/29/19 To do or to watch: Access: Right arm PICC placed 04/30. - POD#7. No tubes/wires. AV paced. On room air. - s/p Redo AVR, MVr for IE: Surg path reviewed. Bacterial PCR + Streptococcus mutans. ID following. PICC placed 04/30. CoPat started. Continue Ceftriaxone through 06/03. Post-op echo completed 04/26: EF 75%, trace Mr, trivial-small pericardial effusion. - s/p PPM: Device check completed 04/30. - FVO: Up 3.7kg. Continue lasix - Dispo: 73 yo female from [place], [place]. Daughter can help. SW following. PT/OT rec home PT/OT; [facility] for IV antibiotics. Face-to face ordered. Should be ready for dc when accepting facility found. [facility] f/u scheduled. [facility] f/u requested. Discharge Planning: Anticipated Discharge Date: 05/01/2019 if HHC arranged. Barriers to Discharge: Other: accepting home care agency and - In Process Care Management Discharge Needs: Needs Prior to Discharge: Accepting Facility;IV Antibiotics Volume overload 04/30/2019 04/08/2022 Overview: History: Post-op problem. Assessment: up 3.7kg. I/O -400 (not fully recorded). BUN/CR 30/0.9. K 5.2 Plan: Continue IV diuretics. Replace electrolytes prn. Montior labs, I/O. Monitor daily weight. Continue fluid restriction. Mobilize. Discharge planning issues 04/30/20192019 Overview: 73 yo female from [place], [place]. Daughter can help. SW following. PT/OT rec home PT/OT; HHC for IV antibiotics. Face-to face ordered. Should be ready for dc when accepting facility found. Atelectasis 04/26/2019 04/08/2022 Overview: History: Postop Assessment: Bibasilar on am CXR. Good gas exchange on room air. Plan: Continue BPH, OOB daily and Pep. Thrombocytopenia 04/24/2019 04/26/2019 On mechanically assisted ventilation 04/22/2019 04/23/2019 Overview: History: Post op cardiac surgery requiring elective intubation Assessment: Grade I airway Plan: WTE Post-operative pain 04/22/2019 05/01/2019 Overview: History: 04/22/2019: AVR Assessment: Pain control adequate Plan: Continue scheduled Tylenol and prn oxycodone and tramadol. Preop testing 04/19/2019 04/30/2019 Overview: Date of Consult: 04/12 Type of surgery: Redo AVR/root +/- MVr Date preop tests completed:April 19, 2019 Waiting on: Date Surgeon reviewed Patient: 04/18 Patient work up completed: Waiting on: Date of decision by Surgeon: April 19, 2019 Deemed candidate: Yes Date of surgery: 04/22 Reasons for delay: na [facility] and [facility] PRE-OP CHECKLIST Surgeon: Dr. Forrest Rios Informed Consent Completed: pending STS Score: RISK SCORES Procedure: Isolated AVR CALCULATE Risk of Mortality: 4.605% Renal Failure: 3.404% Permanent Stroke: 2.380% Prolonged Ventilation: 22.071% DSW Infection: 0.035% Reoperation: 7.729% Morbidity or Mortality: 27.681% Short Length of Stay: 12.366% Long Length of Stay: 20.018% CAD: No Is intended procedure a CABG: No - H & P completed: Yes PA/LAT: Completed CT: Completed MRI: N/A LE US: N/A Cath: Yes - reviewed: Yes EKG: Completed Is patient on Amiodarone? Yes Echo:Completed EF %: 70 PI's: N/A Carotid: Completed Mapping: N/A Dental: Completed PFT's: Completed CBC, Coags, BMP, Mg, Phos Recent Labs 04/19/19 0507 04/18/19 0800 04/18/19 0455 04/17/19 0511 WBC 7.49 8.34 7.77 7.81 HB 7.9* 8.2* 7.3* 8.4* HCT 24.7* 25.7* 23.6* 26.5* PLT 144* 151 137* 155 NA 135* -- 134* 134* K 4.5 -- 4.4 4.4 CHLOR 103 -- 102 102 CO2 20* -- 23 22 BUN 37* -- 34* 27* CREAT 1.05* -- 1.03* 1.01* GLUC 83 -- 80 77 CA 8.2* -- 8.3* 8.2* MG 2.0 -- 2.0 1.9 UA: Normal HCG:N/A ABO/ABO Confirmed: Yes Blood ordered: Yes POS ABS 4units Willing to accept blood: Yes SA Swab: Yes - results: Pending Last Dose of Anticoagulation: none Op Note: Yes with Dr. Rios Pacemaker Check: No Implants: no Consults: ID, GI DM: No Cardiac Surgical prep: Yes SIGNATURE: Myrna Car RN LABOR RELATIONS ANALYST.CONFLICTS ANALYST DATE of SERVICE: 04/19/2019 TIME of SERVICE: 11:16 AM CHECKED BY: Moderate protein-calorie malnutrition 04/12/2019 10/02/2020 Overview: History: Post-op problem. Albumin 2.9. Noted on post-op nutrition screen. Assessment: 75% of meals consumed per I/O. Plan: Follow nutrition recs. Last Assessment & Plan: - nutrition referral Parkinson's disease 03/04/2019 06/11/2019 Overview: History: Takes Sinement at home Assessment: Stable postop Plan: Resume home regimen. Last Assessment & Plan: Assessment: on Sinemet PLAN: - cont home meds Acute kidney injury 03/04/2019 03/06/2019 Last Assessment & Plan: Assessment: - noted to have HILARIO at OSH with Cr of 1.31 on presentation, improved with fluids - likely related to blood loss RESOLVED PLAN: - monitor - avoid nephrotoxins - renally dose meds Acute cystitis with hematuria 03/04/2019 Last Assessment & Plan: Assessment: - abnormal UA at OSH, was given Rocephin at OSH ED - OSH urine cx: presumptive E coli. pansensitive - appears only received one dose of Rocephin PLAN: - complete treatment with Bactrim Elevated troponin 12/06/2018 12/23/2018 Last Assessment & Plan: No chest pain. EKG - NSR, LVH, LAD Plan: repeat EKG and troponin Trend troponin if remains elevated here GI bleed 12/05/2018 12/23/2018 Last Assessment & Plan: Acute blood loss anemia likely from GI bleed. EGD, colonoscopy - no source of bleeding identify. CT angio Abd aorta + Iliofemoral: Enhancing polypoid lesion within the 1st segment of the duodenum concerning for slowly bleeding mass. Plan: type and screen Blood transfusion consent was taken Monitor CBC q8h for now Transfuse if Hb <7 GI consult in am Continue with PPI bid Hold ASA and other NSAID 12/[address] Bonilla's team for transgastric endoscopy + possible resection of remnant/dudenal first part if needed requested cardiology input due to severe as appreciate their input 12/19 OR on 12/21 npo at 1 am on 12/21 12/21 100 ml of periop bleed found a bleeding du and clipped saw in recovery room groggy coming out of anesthesia 2 hours procedure weaned ot 50% vm in hte theatre and brought to pacu on 2 liters out ot floor in an hour ODELL (iron deficiency anemia) 12/05/2018 Last Assessment & Plan: Assessment: most recent labs show normal H/H, but does take Ferrous sulfate Bronchitis 08/08/2018 04/08/2022 Postoperative hypertension 04/26 Overview: History: 04/22/2019: AVR Assessment: Requiring NTG infusion postop Plan: Titrate to maintain MAPs 65-75. Last Assessment & Plan: Home meds: losartan 50 - was on losartan-hctz prior to December admission stable PLAN: - hold in setting of ?GI bleed Depression 12/23/2018 Last Assessment & Plan: No suicidal or homicidal ideation. Stable. Continue with Citalopram documented as of this encounter (statuses as of 06/10/2022) [facility]06-07-2021 History of Past illness Narrative* Problem Noted Date Resolved Date Elective surgery 11/09/2020 04/08/2022 History of UTI 11/06/2020 04/08/2022 Last Assessment & Plan: Assessment: recent, but tx, pre-op WBC normal following UTI Other pancytopenia 01/01/2020 03/27/2020 Transition of care performed with sharing of clinical summary 04/30/2019 03/27/2020 Overview: Indication for Surgery: Prosthetic aortic valve endocarditis Preop LVEF: 75% RVF: Normal Postop LVEF: Normal RVF: Normal Cath: mild non obsx CAD Cards: [facility] EKG: NSR w/ 1st degree Important/Relevant PMH/PSH: 73F from [facility] with GERD, depression, HTN, gastric bypass, PUD with recent GIB, nephrolithiasis, s/p AVR 2002 admitted with prosthetic valve endocarditis c/b severe AI, posterior root abscess, Parkinsons, CKD, overactive bladder Preoperative Hospital Course Admitted 04/10 with severe aortic insufficiency related to endocarditis Airway Difficulty: Grade I - easy Pacing wires: No. A/V pulled 04/30 Chronological list of Surgeries and Major Events 04/22/2019: Redo AVR, MVr_ 04/29/2019: PPM placement A/P of Major Active ICU Problems Cardiac: EP following for pacer dependency with ventricular rate <30 underneath. Continue DDD 80, mA 10, 5. Formal echo 04/26 showed EF 75%, RV normal. NPO, plan for PPM today. Renal:CKD-- SrCr 0.89, downtrending. Avoid nephrotoxic agents, trend fluid balance and electrolytes. 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 Continue ceftriaxone. Transferred to floor 04/29/19 To do or to watch: Access: Right arm PICC placed 04/30. - POD#7. No tubes/wires. AV paced. On room air. - s/p Redo AVR, MVr for IE: Surg path reviewed. Bacterial PCR + Streptococcus mutans. ID following. PICC placed 04/30. CoPat started. Continue Ceftriaxone through 06/03. Post-op echo completed 04/26: EF 75%, trace Mr, trivial-small pericardial effusion. - s/p PPM: Device check completed 04/30. - FVO: Up 3.7kg. Continue lasix - Dispo: 73 yo female from [place], [place]. Daughter can help. SW following. PT/OT rec home PT/OT; [facility]HC for IV antibiotics. Face-to face ordered. Should be ready for dc when accepting facility found. [facility] f/u scheduled. [facility] f/u requested. Discharge Planning: Anticipated Discharge Date: 05/01/2019 if HHC arranged. Barriers to Discharge: Other: accepting home care agency and - In Process Care Management Discharge Needs: Needs Prior to Discharge: Accepting Facility;IV Antibiotics Volume overload 04/30/2019 04/08/2022 Overview: History: Post-op problem. Assessment: up 3.7kg. I/O -400 (not fully recorded). BUN/CR 30/0.9. K 5.2 Plan: Continue IV diuretics. Replace electrolytes prn. Montior labs, I/O. Monitor daily weight. Continue fluid restriction. Mobilize. Discharge planning issues 04/30/20192019 Overview: 73 yo female from [place], [place]. Daughter can help. SW following. PT/OT rec home PT/OT; [facility] for IV antibiotics. Face-to face ordered. Should be ready for dc when accepting facility found. Atelectasis 04/26/2019 04/08/2022 Overview: History: Postop Assessment: Bibasilar on am CXR. Good gas exchange on room air. Plan: Continue BPH, OOB daily and Pep. Thrombocytopenia 04/24/2019 04/26/2019 On mechanically assisted ventilation 04/22/2019 04/23/2019 Overview: History: Post op cardiac surgery requiring elective intubation Assessment: Grade I airway Plan: WTE Post-operative pain 04/22/2019 05/01/2019 Overview: History: 04/22/2019: AVR Assessment: Pain control adequate Plan: Continue scheduled Tylenol and prn oxycodone and tramadol. Preop testing 04/19/2019 04/30/2019 Overview: Date of Consult: 04/12 Type of surgery: Redo AVR/root +/- MVr Date preop tests completed:April 19, 2019 Waiting on: Date Surgeon reviewed Patient: 04/18 Patient work up completed: Waiting on: Date of decision by Surgeon: April 19, 2019 Deemed candidate: Yes Date of surgery: 04/22 Reasons for delay: na [facility]ART and [facility]ASCULAR INSTITUTE PRE-OP CHECKLIST Surgeon: Dr. Forrest Rios Informed Consent Completed: pending STS Score: RISK SCORES Procedure: Isolated AVR CALCULATE Risk of Mortality: 4.605% Renal Failure: 3.404% Permanent Stroke: 2.380% Prolonged Ventilation: 22.071% DSW Infection: 0.035% Reoperation: 7.729% Morbidity or Mortality: 27.681% Short Length of Stay: 12.366% Long Length of Stay: 20.018% CAD: No Is intended procedure a CABG: No - H & P completed: Yes PA/LAT: Completed CT: Completed MRI: N/A LE US: N/A Cath: Yes - reviewed: Yes EKG: Completed Is patient on Amiodarone? Yes Echo:Completed EF %: 70 PI's: N/A Carotid: Completed Mapping: N/A Dental: Completed PFT's: Completed CBC, Coags, BMP, Mg, Phos Recent Labs 04/19/19 0507 04/18/19 0800 04/18/19 0455 04/17/19 0511 WBC 7.49 8.34 7.77 7.81 HB 7.9* 8.2* 7.3* 8.4* HCT 24.7* 25.7* 23.6* 26.5* PLT 144* 151 137* 155 NA 135* -- 134* 134* K 4.5 -- 4.4 4.4 CHLOR 103 -- 102 102 CO2 20* -- 23 22 BUN 37* -- 34* 27* CREAT 1.05* -- 1.03* 1.01* GLUC 83 -- 80 77 CA 8.2* -- 8.3* 8.2* MG 2.0 -- 2.0 1.9 UA: Normal HCG:N/A ABO/ABO Confirmed: Yes Blood ordered: Yes POS ABS 4units Willing to accept blood: Yes SA Swab: Yes - results: Pending Last Dose of Anticoagulation: none Op Note: Yes with Dr. Rios Pacemaker Check: No Implants: no Consults: ID, GI DM: No Cardiac Surgical prep: Yes SIGNATURE: Myrna Car RN LABOR RELATIONS ANALYST.CONFLICTS ANALYST DATE of SERVICE: 04/19/2019 TIME of SERVICE: 11:16 AM CHECKED BY: Moderate protein-calorie malnutrition 04/12/2019 10/02/2020 Overview: History: Post-op problem. Albumin 2.9. Noted on post-op nutrition screen. Assessment: 75% of meals consumed per I/O. Plan: Follow nutrition recs. Last Assessment & Plan: - nutrition referral Parkinson's disease 03/04/2019 06/11/2019 Overview: History: Takes Sinement at home Assessment: Stable postop Plan: Resume home regimen. Last Assessment & Plan: Assessment: on Sinemet PLAN: - cont home meds Acute kidney injury 03/04/2019 03/06/2019 Last Assessment & Plan: Assessment: - noted to have HILARIO at OSH with Cr of 1.31 on presentation, improved with fluids - likely related to blood loss RESOLVED PLAN: - monitor - avoid nephrotoxins - renally dose meds Acute cystitis with hematuria 03/04/2019 Last Assessment & Plan: Assessment: - abnormal UA at OSH, was given Rocephin at OSH ED - OSH urine cx: presumptive E coli. pansensitive - appears only received one dose of Rocephin PLAN: - complete treatment with Bactrim Elevated troponin 12/06/2018 12/23/2018 Last Assessment & Plan: No chest pain. EKG - NSR, LVH, LAD Plan: repeat EKG and troponin Trend troponin if remains elevated here GI bleed 12/05/2018 12/23/2018 Last Assessment & Plan: Acute blood loss anemia likely from GI bleed. EGD, colonoscopy - no source of bleeding identify. CT angio Abd aorta + Iliofemoral: Enhancing polypoid lesion within the 1st segment of the duodenum concerning for slowly bleeding mass. Plan: type and screen Blood transfusion consent was taken Monitor CBC q8h for now Transfuse if Hb <7 GI consult in am Continue with PPI bid Hold ASA and other NSAID 12/[address] Bonilla's team for transgastric endoscopy + possible resection of remnant/dudenal first part if needed requested cardiology input due to severe as appreciate their input 12/19 OR on 12/21 npo at 1 am on 12/21 12/21 100 ml of periop bleed found a bleeding du and clipped saw in recovery room groggy coming out of anesthesia 2 hours procedure weaned ot 50% vm in hte theatre and brought to pacu on 2 liters out ot floor in an hour ODELL (iron deficiency anemia) 12/05/2018 Last Assessment & Plan: Assessment: most recent labs show normal H/H, but does take Ferrous sulfate Bronchitis 08/08/2018 04/08/2022 Postoperative hypertension 04/26 Overview: History: 04/22/2019: AVR Assessment: Requiring NTG infusion postop Plan: Titrate to maintain MAPs 65-75. Last Assessment & Plan: Home meds: losartan 50 - was on losartan-hctz prior to December admission stable PLAN: - hold in setting of ?GI bleed Depression 12/23/2018 Last Assessment & Plan: No suicidal or homicidal ideation. Stable. Continue with Citalopram documented as of this encounter (statuses as of 06/10/2022) [facility]06-07-2021 History of Past illness Narrative* Problem Noted Date Resolved Date Elective surgery 11/09/2020 04/08/2022 History of UTI 11/06/2020 04/08/2022 Last Assessment & Plan: Assessment: recent, but tx, pre-op WBC normal following UTI Other pancytopenia 01/01/2020 03/27/2020 Transition of care performed with sharing of clinical summary 04/30/2019 03/27/2020 Overview: Indication for Surgery: Prosthetic aortic valve endocarditis Preop LVEF: 75% RVF: Normal Postop LVEF: Normal RVF: Normal Cath: mild non obsx CAD Cards: [facility] EKG: NSR w/ 1st degree Important/Relevant PMH/PSH: 73F from [facility] with GERD, depression, HTN, gastric bypass, PUD with recent GIB, nephrolithiasis, s/p AVR 2002 admitted with prosthetic valve endocarditis c/b severe AI, posterior root abscess, Parkinsons, CKD, overactive bladder Preoperative Hospital Course Admitted 04/10 with severe aortic insufficiency related to endocarditis Airway Difficulty: Grade I - easy Pacing wires: No. A/V pulled 04/30 Chronological list of Surgeries and Major Events 04/22/2019: Redo AVR, MVr_ 04/29/2019: PPM placement A/P of Major Active ICU Problems Cardiac: EP following for pacer dependency with ventricular rate <30 underneath. Continue DDD 80, mA 10, 5. Formal echo 04/26 showed EF 75%, RV normal. NPO, plan for PPM today. Renal:CKD-- SrCr 0.89, downtrending. Avoid nephrotoxic agents, trend fluid balance and electrolytes. 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 Continue ceftriaxone. Transferred to floor 04/29/19 To do or to watch: Access: Right arm PICC placed 04/30. - POD#7. No tubes/wires. AV paced. On room air. - s/p Redo AVR, MVr for IE: Surg path reviewed. Bacterial PCR + Streptococcus mutans. ID following. PICC placed 04/30. CoPat started. Continue Ceftriaxone through 06/03. Post-op echo completed 04/26: EF 75%, trace Mr, trivial-small pericardial effusion. - s/p PPM: Device check completed 04/30. - FVO: Up 3.7kg. Continue lasix - Dispo: 73 yo female from [place], [place]. Daughter can help. SW following. PT/OT rec home PT/OT; HHC for IV antibiotics. Face-to face ordered. Should be ready for dc when accepting facility found. [facility] f/u scheduled. [facility] OPD f/u requested. Discharge Planning: Anticipated Discharge Date: 05/01/2019 if HHC arranged. Barriers to Discharge: Other: accepting home care agency and - In Process Care Management Discharge Needs: Needs Prior to Discharge: Accepting Facility;IV Antibiotics Volume overload 04/30/2019 04/08/2022 Overview: History: Post-op problem. Assessment: up 3.7kg. I/O -400 (not fully recorded). BUN/CR 30/0.9. K 5.2 Plan: Continue IV diuretics. Replace electrolytes prn. Montior labs, I/O. Monitor daily weight. Continue fluid restriction. Mobilize. Discharge planning issues 04/30/20192019 Overview: 73 yo female from [place], [place]. Daughter can help. SW following. PT/OT rec home PT/OT; HHC for IV antibiotics. Face-to face ordered. Should be ready for dc when accepting facility found. Atelectasis 04/26/2019 04/08/2022 Overview: History: Postop Assessment: Bibasilar on am CXR. Good gas exchange on room air. Plan: Continue BPH, OOB daily and Pep. Thrombocytopenia 04/24/2019 04/26/2019 On mechanically assisted ventilation 04/22/2019 04/23/2019 Overview: History: Post op cardiac surgery requiring elective intubation Assessment: Grade I airway Plan: WTE Post-operative pain 04/22/2019 05/01/2019 Overview: History: 04/22/2019: AVR Assessment: Pain control adequate Plan: Continue scheduled Tylenol and prn oxycodone and tramadol. Preop testing 04/19/2019 04/30/2019 Overview: Date of Consult: 04/12 Type of surgery: Redo AVR/root +/- MVr Date preop tests completed:April 19, 2019 Waiting on: Date Surgeon reviewed Patient: 04/18 Patient work up completed: Waiting on: Date of decision by Surgeon: April 19, 2019 Deemed candidate: Yes Date of surgery: 04/22 Reasons for delay: na [facility] and [facility] PRE-OP CHECKLIST Surgeon: Dr. Forrest Rios Informed Consent Completed: pending STS Score: RISK SCORES Procedure: Isolated AVR CALCULATE Risk of Mortality: 4.605% Renal Failure: 3.404% Permanent Stroke: 2.380% Prolonged Ventilation: 22.071% DSW Infection: 0.035% Reoperation: 7.729% Morbidity or Mortality: 27.681% Short Length of Stay: 12.366% Long Length of Stay: 20.018% CAD: No Is intended procedure a CABG: No - H & P completed: Yes PA/LAT: Completed CT: Completed MRI: N/A LE US: N/A Cath: Yes - reviewed: Yes EKG: Completed Is patient on Amiodarone? Yes Echo:Completed EF %: 70 PI's: N/A Carotid: Completed Mapping: N/A Dental: Completed PFT's: Completed CBC, Coags, BMP, Mg, Phos Recent Labs 04/19/19 0507 04/18/19 0800 04/18/19 0455 04/17/19 0511 WBC 7.49 8.34 7.77 7.81 HB 7.9* 8.2* 7.3* 8.4* HCT 24.7* 25.7* 23.6* 26.5* PLT 144* 151 137* 155 NA 135* -- 134* 134* K 4.5 -- 4.4 4.4 CHLOR 103 -- 102 102 CO2 20* -- 23 22 BUN 37* -- 34* 27* CREAT 1.05* -- 1.03* 1.01* GLUC 83 -- 80 77 CA 8.2* -- 8.3* 8.2* MG 2.0 -- 2.0 1.9 UA: Normal HCG:N/A ABO/ABO Confirmed: Yes Blood ordered: Yes POS ABS 4units Willing to accept blood: Yes SA Swab: Yes - results: Pending Last Dose of Anticoagulation: none Op Note: Yes with Dr. Rios Pacemaker Check: No Implants: no Consults: ID, GI DM: No Cardiac Surgical prep: Yes SIGNATURE: Myrna Car RN LABOR RELATIONS ANALYST.CONFLICTS ANALYST DATE of SERVICE: 04/19/2019 TIME of SERVICE: 11:16 AM CHECKED BY: Moderate protein-calorie malnutrition 04/12/2019 10/02/2020 Overview: History: Post-op problem. Albumin 2.9. Noted on post-op nutrition screen. Assessment: 75% of meals consumed per I/O. Plan: Follow nutrition recs. Last Assessment & Plan: - nutrition referral Parkinson's disease 03/04/2019 06/11/2019 Overview: History: Takes Sinement at home Assessment: Stable postop Plan: Resume home regimen. Last Assessment & Plan: Assessment: on Sinemet PLAN: - cont home meds Acute kidney injury 03/04/2019 03/06/2019 Last Assessment & Plan: Assessment: - noted to have HILARIO at OSH with Cr of 1.31 on presentation, improved with fluids - likely related to blood loss RESOLVED PLAN: - monitor - avoid nephrotoxins - renally dose meds Acute cystitis with hematuria 03/04/2019 Last Assessment & Plan: Assessment: - abnormal UA at OSH, was given Rocephin at OSH ED - OSH urine cx: presumptive E coli. pansensitive - appears only received one dose of Rocephin PLAN: - complete treatment with Bactrim Elevated troponin 12/06/2018 12/23/2018 Last Assessment & Plan: No chest pain. EKG - NSR, LVH, LAD Plan: repeat EKG and troponin Trend troponin if remains elevated here GI bleed 12/05/2018 12/23/2018 Last Assessment & Plan: Acute blood loss anemia likely from GI bleed. EGD, colonoscopy - no source of bleeding identify. CT angio Abd aorta + Iliofemoral: Enhancing polypoid lesion within the 1st segment of the duodenum concerning for slowly bleeding mass. Plan: type and screen Blood transfusion consent was taken Monitor CBC q8h for now Transfuse if Hb <7 GI consult in am Continue with PPI bid Hold ASA and other NSAID 12/[address] Bonilla's team for transgastric endoscopy + possible resection of remnant/dudenal first part if needed requested cardiology input due to severe as appreciate their input 12/19 OR on 12/21 npo at 1 am on 12/21 12/21 100 ml of periop bleed found a bleeding du and clipped saw in recovery room groggy coming out of anesthesia 2 hours procedure weaned ot 50% vm in hte theatre and brought to pacu on 2 liters out ot floor in an hour ODELL (iron deficiency anemia) 12/05/2018 Last Assessment & Plan: Assessment: most recent labs show normal H/H, but does take Ferrous sulfate Bronchitis 08/08/2018 04/08/2022 Postoperative hypertension 04/26 Overview: History: 04/22/2019: AVR Assessment: Requiring NTG infusion postop Plan: Titrate to maintain MAPs 65-75. Last Assessment & Plan: Home meds: losartan 50 - was on losartan-hctz prior to December admission stable PLAN: - hold in setting of ?GI bleed Depression 12/23/2018 Last Assessment & Plan: No suicidal or homicidal ideation. Stable. Continue with Citalopram documented as of this encounter (statuses as of 06/14/2022) [facility]06-07-2021 History of Past illness Narrative* Problem Noted Date Resolved Date Elective surgery 11/09/2020 04/08/2022 History of UTI 11/06/2020 04/08/2022 Last Assessment & Plan: Assessment: recent, but tx, pre-op WBC normal following UTI Other pancytopenia 01/01/2020 03/27/2020 Transition of care performed with sharing of clinical summary 04/30/2019 03/27/2020 Overview: Indication for Surgery: Prosthetic aortic valve endocarditis Preop LVEF: 75% RVF: Normal Postop LVEF: Normal RVF: Normal Cath: mild non obsx CAD Cards: [facility] EKG: NSR w/ 1st degree Important/Relevant PMH/PSH: 73F from [facility] with GERD, depression, HTN, gastric bypass, PUD with recent GIB, nephrolithiasis, s/p AVR 2002 admitted with prosthetic valve endocarditis c/b severe AI, posterior root abscess, Parkinsons, CKD, overactive bladder Preoperative Hospital Course Admitted 04/10 with severe aortic insufficiency related to endocarditis Airway Difficulty: Grade I - easy Pacing wires: No. A/V pulled 04/30 Chronological list of Surgeries and Major Events 04/22/2019: Redo AVR, MVr_ 04/29/2019: PPM placement A/P of Major Active ICU Problems Cardiac: EP following for pacer dependency with ventricular rate <30 underneath. Continue DDD 80, mA 10, 5. Formal echo 04/26 showed EF 75%, RV normal. NPO, plan for PPM today. Renal:CKD-- SrCr 0.89, downtrending. Avoid nephrotoxic agents, trend fluid balance and electrolytes. 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 Continue ceftriaxone. Transferred to floor 04/29/19 To do or to watch: Access: Right arm PICC placed 04/30. - POD#7. No tubes/wires. AV paced. On room air. - s/p Redo AVR, MVr for IE: Surg path reviewed. Bacterial PCR + Streptococcus mutans. ID following. PICC placed 04/30. CoPat started. Continue Ceftriaxone through 06/03. Post-op echo completed 04/26: EF 75%, trace Mr, trivial-small pericardial effusion. - s/p PPM: Device check completed 04/30. - FVO: Up 3.7kg. Continue lasix - Dispo: 73 yo female from [place], [place]. Daughter can help. SW following. PT/OT rec home PT/OT; HHC for IV antibiotics. Face-to face ordered. Should be ready for dc when accepting facility found. [facility] f/u scheduled. [facility] OPD f/u requested. Discharge Planning: Anticipated Discharge Date: 05/01/2019 if HHC arranged. Barriers to Discharge: Other: accepting home care agency and - In Process Care Management Discharge Needs: Needs Prior to Discharge: Accepting Facility;IV Antibiotics Volume overload 04/30/2019 04/08/2022 Overview: History: Post-op problem. Assessment: up 3.7kg. I/O -400 (not fully recorded). BUN/CR 30/0.9. K 5.2 Plan: Continue IV diuretics. Replace electrolytes prn. Montior labs, I/O. Monitor daily weight. Continue fluid restriction. Mobilize. Discharge planning issues 04/30/20192019 Overview: 73 yo female from [place], [place]. Daughter can help. SW following. PT/OT rec home PT/OT; HHC for IV antibiotics. Face-to face ordered. Should be ready for dc when accepting facility found. Atelectasis 04/26/2019 04/08/2022 Overview: History: Postop Assessment: Bibasilar on am CXR. Good gas exchange on room air. Plan: Continue BPH, OOB daily and Pep. Thrombocytopenia 04/24/2019 04/26/2019 On mechanically assisted ventilation 04/22/2019 04/23/2019 Overview: History: Post op cardiac surgery requiring elective intubation Assessment: Grade I airway Plan: WTE Post-operative pain 04/22/2019 05/01/2019 Overview: History: 04/22/2019: AVR Assessment: Pain control adequate Plan: Continue scheduled Tylenol and prn oxycodone and tramadol. Preop testing 04/19/2019 04/30/2019 Overview: Date of Consult: 04/12 Type of surgery: Redo AVR/root +/- MVr Date preop tests completed:April 19, 2019 Waiting on: Date Surgeon reviewed Patient: 04/18 Patient work up completed: Waiting on: Date of decision by Surgeon: April 19, 2019 Deemed candidate: Yes Date of surgery: 04/22 Reasons for delay: na [facility] and [facility] PRE-OP CHECKLIST Surgeon: Dr. Forrest Rios Informed Consent Completed: pending STS Score: RISK SCORES Procedure: Isolated AVR CALCULATE Risk of Mortality: 4.605% Renal Failure: 3.404% Permanent Stroke: 2.380% Prolonged Ventilation: 22.071% DSW Infection: 0.035% Reoperation: 7.729% Morbidity or Mortality: 27.681% Short Length of Stay: 12.366% Long Length of Stay: 20.018% CAD: No Is intended procedure a CABG: No - H & P completed: Yes PA/LAT: Completed CT: Completed MRI: N/A LE US: N/A Cath: Yes - reviewed: Yes EKG: Completed Is patient on Amiodarone? Yes Echo:Completed EF %: 70 PI's: N/A Carotid: Completed Mapping: N/A Dental: Completed PFT's: Completed CBC, Coags, BMP, Mg, Phos Recent Labs 04/19/19 0507 04/18/19 0800 04/18/19 0455 04/17/19 0511 WBC 7.49 8.34 7.77 7.81 HB 7.9* 8.2* 7.3* 8.4* HCT 24.7* 25.7* 23.6* 26.5* PLT 144* 151 137* 155 NA 135* -- 134* 134* K 4.5 -- 4.4 4.4 CHLOR 103 -- 102 102 CO2 20* -- 23 22 BUN 37* -- 34* 27* CREAT 1.05* -- 1.03* 1.01* GLUC 83 -- 80 77 CA 8.2* -- 8.3* 8.2* MG 2.0 -- 2.0 1.9 UA: Normal HCG:N/A ABO/ABO Confirmed: Yes Blood ordered: Yes POS ABS 4units Willing to accept blood: Yes SA Swab: Yes - results: Pending Last Dose of Anticoagulation: none Op Note: Yes with Dr. Rios Pacemaker Check: No Implants: no Consults: ID, GI DM: No Cardiac Surgical prep: Yes SIGNATURE: Myrna Car RN LABOR RELATIONS ANALYST.ARBEN DATE of SERVICE: 04/19/2019 TIME of SERVICE: 11:16 AM CHECKED BY: Moderate protein-calorie malnutrition 04/12/2019 10/02/2020 Overview: History: Post-op problem. Albumin 2.9. Noted on post-op nutrition screen. Assessment: 75% of meals consumed per I/O. Plan: Follow nutrition recs. Last Assessment & Plan: - nutrition referral Parkinson's disease 03/04/2019 06/11/2019 Overview: History: Takes Sinement at home Assessment: Stable postop Plan: Resume home regimen. Last Assessment & Plan: Assessment: on Sinemet PLAN: - cont home meds Acute kidney injury 03/04/2019 03/06/2019 Last Assessment & Plan: Assessment: - noted to have HILARIO at OSH with Cr of 1.31 on presentation, improved with fluids - likely related to blood loss RESOLVED PLAN: - monitor - avoid nephrotoxins - renally dose meds Acute cystitis with hematuria 03/04/2019 Last Assessment & Plan: Assessment: - abnormal UA at OSH, was given Rocephin at OSH ED - OSH urine cx: presumptive E coli. pansensitive - appears only received one dose of Rocephin PLAN: - complete treatment with Bactrim Elevated troponin 12/06/2018 12/23/2018 Last Assessment & Plan: No chest pain. EKG - NSR, LVH, LAD Plan: repeat EKG and troponin Trend troponin if remains elevated here GI bleed 12/05/2018 12/23/2018 Last Assessment & Plan: Acute blood loss anemia likely from GI bleed. EGD, colonoscopy - no source of bleeding identify. CT angio Abd aorta + Iliofemoral: Enhancing polypoid lesion within the 1st segment of the duodenum concerning for slowly bleeding mass. Plan: type and screen Blood transfusion consent was taken Monitor CBC q8h for now Transfuse if Hb <7 GI consult in am Continue with PPI bid Hold ASA and other NSAID 12/[address] Bonilla's team for transgastric endoscopy + possible resection of remnant/dudenal first part if needed requested cardiology input due to severe as appreciate their input 12/19 OR on 12/21 npo at 1 am on 12/21 12/21 100 ml of periop bleed found a bleeding du and clipped saw in recovery room groggy coming out of anesthesia 2 hours procedure weaned ot 50% vm in hte theatre and brought to pacu on 2 liters out ot floor in an hour ODELL (iron deficiency anemia) 12/05/2018 Last Assessment & Plan: Assessment: most recent labs show normal H/H, but does take Ferrous sulfate Bronchitis 08/08/2018 04/08/2022 Postoperative hypertension 04/26 Overview: History: 04/22/2019: AVR Assessment: Requiring NTG infusion postop Plan: Titrate to maintain MAPs 65-75. Last Assessment & Plan: Home meds: losartan 50 - was on losartan-hctz prior to December admission stable PLAN: - hold in setting of ?GI bleed Depression 12/23/2018 Last Assessment & Plan: No suicidal or homicidal ideation. Stable. Continue with Citalopram documented as of this encounter (statuses as of 06/14/2022) [facility]06-[facility]21 History of Past illness Narrative* Problem Noted Date Resolved Date Elective surgery 11/09/2020 04/08/2022 History of UTI 11/06/2020 04/08/2022 Last Assessment & Plan: Assessment: recent, but tx, pre-op WBC normal following UTI Other pancytopenia 01/01/2020 03/27/2020 Transition of care performed with sharing of clinical summary 04/30/2019 03/27/2020 Overview: Indication for Surgery: Prosthetic aortic valve endocarditis Preop LVEF: 75% RVF: Normal Postop LVEF: Normal RVF: Normal Cath: mild non obsx CAD Cards: [facility] EKG: NSR w/ 1st degree Important/Relevant PMH/PSH: 73F from [facility] with GERD, depression, HTN, gastric bypass, PUD with recent GIB, nephrolithiasis, s/p AVR 2002 admitted with prosthetic valve endocarditis c/b severe AI, posterior root abscess, Parkinsons, CKD, overactive bladder Preoperative Hospital Course Admitted 04/10 with severe aortic insufficiency related to endocarditis Airway Difficulty: Grade I - easy Pacing wires: No. A/V pulled 04/30 Chronological list of Surgeries and Major Events 04/22/2019: Redo AVR, MVr_ 04/29/2019: PPM placement A/P of Major Active ICU Problems Cardiac: EP following for pacer dependency with ventricular rate <30 underneath. Continue DDD 80, mA 10, 5. Formal echo 04/26 showed EF 75%, RV normal. NPO, plan for PPM today. Renal:CKD-- SrCr 0.89, downtrending. Avoid nephrotoxic agents, trend fluid balance and electrolytes. 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 Continue ceftriaxone. Transferred to floor 04/29/19 To do or to watch: Access: Right arm PICC placed 04/30. - POD#7. No tubes/wires. AV paced. On room air. - s/p Redo AVR, MVr for IE: Surg path reviewed. Bacterial PCR + Streptococcus mutans. ID following. PICC placed 04/30. CoPat started. Continue Ceftriaxone through 06/03. Post-op echo completed 04/26: EF 75%, trace Mr, trivial-small pericardial effusion. - s/p PPM: Device check completed 04/30. - FVO: Up 3.7kg. Continue lasix - Dispo: 73 yo female from [place], [place]. Daughter can help. SW following. PT/OT rec home PT/OT; HHC for IV antibiotics. Face-to face ordered. Should be ready for dc when accepting facility found. [facility] f/u scheduled. [facility] O[facility] f/u requested. Discharge Planning: Anticipated Discharge Date: 05/01/2019 if HHC arranged. Barriers to Discharge: Other: accepting home care agency and - In Process Care Management Discharge Needs: Needs Prior to Discharge: Accepting Facility;IV Antibiotics Volume overload 04/30/2019 04/08/2022 Overview: History: Post-op problem. Assessment: up 3.7kg. I/O -400 (not fully recorded). BUN/CR 30/0.9. K 5.2 Plan: Continue IV diuretics. Replace electrolytes prn. Montior labs, I/O. Monitor daily weight. Continue fluid restriction. Mobilize. Discharge planning issues 04/30/20192019 Overview: 73 yo female from [place], [place]. Daughter can help. SW following. PT/OT rec home PT/OT; C for IV antibiotics. Face-to face ordered. Should be ready for dc when accepting facility found. Atelectasis 04/26/2019 04/08/2022 Overview: History: Postop Assessment: Bibasilar on am CXR. Good gas exchange on room air. Plan: Continue BPH, OOB daily and Pep. Thrombocytopenia 04/24/2019 04/26/2019 On mechanically assisted ventilation 04/22/2019 04/23/2019 Overview: History: Post op cardiac surgery requiring elective intubation Assessment: Grade I airway Plan: WTE Post-operative pain 04/22/2019 05/01/2019 Overview: History: 04/22/2019: AVR Assessment: Pain control adequate Plan: Continue scheduled Tylenol and prn oxycodone and tramadol. Preop testing 04/19/2019 04/30/2019 Overview: Date of Consult: 04/12 Type of surgery: Redo AVR/root +/- MVr Date preop tests completed:April 19, 2019 Waiting on: Date Surgeon reviewed Patient: 04/18 Patient work up completed: Waiting on: Date of decision by Surgeon: April 19, 2019 Deemed candidate: Yes Date of surgery: 04/22 Reasons for delay: na [facility]ART and [facility]ASCULAR INSTITUTE PRE-OP CHECKLIST Surgeon: Dr. Forrest Rios Informed Consent Completed: pending STS Score: RISK SCORES Procedure: Isolated AVR CALCULATE Risk of Mortality: 4.605% Renal Failure: 3.404% Permanent Stroke: 2.380% Prolonged Ventilation: 22.071% DSW Infection: 0.035% Reoperation: 7.729% Morbidity or Mortality: 27.681% Short Length of Stay: 12.366% Long Length of Stay: 20.018% CAD: No Is intended procedure a CABG: No - H & P completed: Yes PA/LAT: Completed CT: Completed MRI: N/A LE US: N/A Cath: Yes - reviewed: Yes EKG: Completed Is patient on Amiodarone? Yes Echo:Completed EF %: 70 PI's: N/A Carotid: Completed Mapping: N/A Dental: Completed PFT's: Completed CBC, Coags, BMP, Mg, Phos Recent Labs 04/19/19 0507 04/18/19 0800 04/18/19 0455 04/17/19 0511 WBC 7.49 8.34 7.77 7.81 HB 7.9* 8.2* 7.3* 8.4* HCT 24.7* 25.7* 23.6* 26.5* PLT 144* 151 137* 155 NA 135* -- 134* 134* K 4.5 -- 4.4 4.4 CHLOR 103 -- 102 102 CO2 20* -- 23 22 BUN 37* -- 34* 27* CREAT 1.05* -- 1.03* 1.01* GLUC 83 -- 80 77 CA 8.2* -- 8.3* 8.2* MG 2.0 -- 2.0 1.9 UA: Normal HCG:N/A ABO/ABO Confirmed: Yes Blood ordered: Yes POS ABS 4units Willing to accept blood: Yes SA Swab: Yes - results: Pending Last Dose of Anticoagulation: none Op Note: Yes with Dr. Rios Pacemaker Check: No Implants: no Consults: ID, GI DM: No Cardiac Surgical prep: Yes SIGNATURE: Myrna Car RN LABOR RELATIONS ANALYST.CONFLICTS ANALYST DATE of SERVICE: 04/19/2019 TIME of SERVICE: 11:16 AM CHECKED BY: Moderate protein-calorie malnutrition 04/12/2019 10/02/2020 Overview: History: Post-op problem. Albumin 2.9. Noted on post-op nutrition screen. Assessment: 75% of meals consumed per I/O. Plan: Follow nutrition recs. Last Assessment & Plan: - nutrition referral Parkinson's disease 03/04/2019 06/11/2019 Overview: History: Takes Sinement at home Assessment: Stable postop Plan: Resume home regimen. Last Assessment & Plan: Assessment: on Sinemet PLAN: - cont home meds Acute kidney injury 03/04/2019 03/06/2019 Last Assessment & Plan: Assessment: - noted to have HILARIO at OSH with Cr of 1.31 on presentation, improved with fluids - likely related to blood loss RESOLVED PLAN: - monitor - avoid nephrotoxins - renally dose meds Acute cystitis with hematuria 03/04/2019 Last Assessment & Plan: Assessment: - abnormal UA at OSH, was given Rocephin at OSH ED - OSH urine cx: presumptive E coli. pansensitive - appears only received one dose of Rocephin PLAN: - complete treatment with Bactrim Elevated troponin 12/06/2018 12/23/2018 Last Assessment & Plan: No chest pain. EKG - NSR, LVH, LAD Plan: repeat EKG and troponin Trend troponin if remains elevated here GI bleed 12/05/2018 12/23/2018 Last Assessment & Plan: Acute blood loss anemia likely from GI bleed. EGD, colonoscopy - no source of bleeding identify. CT angio Abd aorta + Iliofemoral: Enhancing polypoid lesion within the 1st segment of the duodenum concerning for slowly bleeding mass. Plan: type and screen Blood transfusion consent was taken Monitor CBC q8h for now Transfuse if Hb <7 GI consult in am Continue with PPI bid Hold ASA and other NSAID 12/[address] Bonilla's team for transgastric endoscopy + possible resection of remnant/dudenal first part if needed requested cardiology input due to severe as appreciate their input 12/19 OR on 12/21 npo at 1 am on 12/21 12/21 100 ml of periop bleed found a bleeding du and clipped saw in recovery room groggy coming out of anesthesia 2 hours procedure weaned ot 50% vm in hte theatre and brought to pacu on 2 liters out ot floor in an hour ODELL (iron deficiency anemia) 12/05/2018 Last Assessment & Plan: Assessment: most recent labs show normal H/H, but does take Ferrous sulfate Bronchitis 08/08/2018 04/08/2022 Postoperative hypertension 04/26 Overview: History: 04/22/2019: AVR Assessment: Requiring NTG infusion postop Plan: Titrate to maintain MAPs 65-75. Last Assessment & Plan: Home meds: losartan 50 - was on losartan-hctz prior to December admission stable PLAN: - hold in setting of ?GI bleed Depression 12/23/2018 Last Assessment & Plan: No suicidal or homicidal ideation. Stable. Continue with Citalopram documented as of this encounter (statuses as of 06/14/2022) [facility]06-07-2021 History of Past illness Narrative* Problem Noted Date Resolved Date Elective surgery 11/09/2020 04/08/2022 History of UTI 11/06/2020 04/08/2022 Last Assessment & Plan: Assessment: recent, but tx, pre-op WBC normal following UTI Other pancytopenia 01/01/2020 03/27/2020 Transition of care performed with sharing of clinical summary 04/30/2019 03/27/2020 Overview: Indication for Surgery: Prosthetic aortic valve endocarditis Preop LVEF: 75% RVF: Normal Postop LVEF: Normal RVF: Normal Cath: mild non obsx CAD Cards: [facility] EKG: NSR w/ 1st degree Important/Relevant PMH/PSH: 73F from [facility] with GERD, depression, HTN, gastric bypass, PUD with recent GIB, nephrolithiasis, s/p AVR 2002 admitted with prosthetic valve endocarditis c/b severe AI, posterior root abscess, Parkinsons, CKD, overactive bladder Preoperative Hospital Course Admitted 04/10 with severe aortic insufficiency related to endocarditis Airway Difficulty: Grade I - easy Pacing wires: No. A/V pulled 04/30 Chronological list of Surgeries and Major Events 04/22/2019: Redo AVR, MVr_ 04/29/2019: PPM placement A/P of Major Active ICU Problems Cardiac: EP following for pacer dependency with ventricular rate <30 underneath. Continue DDD 80, mA 10, 5. Formal echo 04/26 showed EF 75%, RV normal. NPO, plan for PPM today. Renal:CKD-- SrCr 0.89, downtrending. Avoid nephrotoxic agents, trend fluid balance and electrolytes. 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 Continue ceftriaxone. Transferred to floor 04/29/19 To do or to watch: Access: Right arm PICC placed 04/30. - POD#7. No tubes/wires. AV paced. On room air. - s/p Redo AVR, MVr for IE: Surg path reviewed. Bacterial PCR + Streptococcus mutans. ID following. PICC placed 04/30. CoPat started. Continue Ceftriaxone through 06/03. Post-op echo completed 04/26: EF 75%, trace Mr, trivial-small pericardial effusion. - s/p PPM: Device check completed 04/30. - FVO: Up 3.7kg. Continue lasix - Dispo: 73 yo female from [place], [place]. Daughter can help. SW following. PT/OT rec home PT/OT; HHC for IV antibiotics. Face-to face ordered. Should be ready for dc when accepting facility found. [facility] f/u scheduled. [facility] OPD f/u requested. Discharge Planning: Anticipated Discharge Date: 05/01/2019 if HHC arranged. Barriers to Discharge: Other: accepting home care agency and - In Process Care Management Discharge Needs: Needs Prior to Discharge: Accepting Facility;IV Antibiotics Volume overload 04/30/2019 04/08/2022 Overview: History: Post-op problem. Assessment: up 3.7kg. I/O -400 (not fully recorded). BUN/CR 30/0.9. K 5.2 Plan: Continue IV diuretics. Replace electrolytes prn. Montior labs, I/O. Monitor daily weight. Continue fluid restriction. Mobilize. Discharge planning issues 04/30/20192019 Overview: 73 yo female from [place], [place]. Daughter can help. SW following. PT/OT rec home PT/OT; C for IV antibiotics. Face-to face ordered. Should be ready for dc when accepting facility found. Atelectasis 04/26/2019 04/08/2022 Overview: History: Postop Assessment: Bibasilar on am CXR. Good gas exchange on room air. Plan: Continue BPH, OOB daily and Pep. Thrombocytopenia 04/24/2019 04/26/2019 On mechanically assisted ventilation 04/22/2019 04/23/2019 Overview: History: Post op cardiac surgery requiring elective intubation Assessment: Grade I airway Plan: WTE Post-operative pain 04/22/2019 05/01/2019 Overview: History: 04/22/2019: AVR Assessment: Pain control adequate Plan: Continue scheduled Tylenol and prn oxycodone and tramadol. Preop testing 04/19/2019 04/30/2019 Overview: Date of Consult: 04/12 Type of surgery: Redo AVR/root +/- MVr Date preop tests completed:April 19, 2019 Waiting on: Date Surgeon reviewed Patient: 04/18 Patient work up completed: Waiting on: Date of decision by Surgeon: April 19, 2019 Deemed candidate: Yes Date of surgery: 04/22 Reasons for delay: na [facility] and [facility] PRE-OP CHECKLIST Surgeon: Dr. Forrest Rios Informed Consent Completed: pending STS Score: RISK SCORES Procedure: Isolated AVR CALCULATE Risk of Mortality: 4.605% Renal Failure: 3.404% Permanent Stroke: 2.380% Prolonged Ventilation: 22.071% DSW Infection: 0.035% Reoperation: 7.729% Morbidity or Mortality: 27.681% Short Length of Stay: 12.366% Long Length of Stay: 20.018% CAD: No Is intended procedure a CABG: No - H & P completed: Yes PA/LAT: Completed CT: Completed MRI: N/A LE US: N/A Cath: Yes - reviewed: Yes EKG: Completed Is patient on Amiodarone? Yes Echo:Completed EF %: 70 PI's: N/A Carotid: Completed Mapping: N/A Dental: Completed PFT's: Completed CBC, Coags, BMP, Mg, Phos Recent Labs 04/19/19 0507 04/18/19 0800 04/18/19 0455 04/17/19 0511 WBC 7.49 8.34 7.77 7.81 HB 7.9* 8.2* 7.3* 8.4* HCT 24.7* 25.7* 23.6* 26.5* PLT 144* 151 137* 155 NA 135* -- 134* 134* K 4.5 -- 4.4 4.4 CHLOR 103 -- 102 102 CO2 20* -- 23 22 BUN 37* -- 34* 27* CREAT 1.05* -- 1.03* 1.01* GLUC 83 -- 80 77 CA 8.2* -- 8.3* 8.2* MG 2.0 -- 2.0 1.9 UA: Normal HCG:N/A ABO/ABO Confirmed: Yes Blood ordered: Yes POS ABS 4units Willing to accept blood: Yes SA Swab: Yes - results: Pending Last Dose of Anticoagulation: none Op Note: Yes with Dr. Rios Pacemaker Check: No Implants: no Consults: ID, GI DM: No Cardiac Surgical prep: Yes SIGNATURE: Myrna Car RN LABOR RELATIONS ANALYST.CONFLICTS ANALYST DATE of SERVICE: 04/19/2019 TIME of SERVICE: 11:16 AM CHECKED BY: Moderate protein-calorie malnutrition 04/12/2019 10/02/2020 Overview: History: Post-op problem. Albumin 2.9. Noted on post-op nutrition screen. Assessment: 75% of meals consumed per I/O. Plan: Follow nutrition recs. Last Assessment & Plan: - nutrition referral Parkinson's disease 03/04/2019 06/11/2019 Overview: History: Takes Sinement at home Assessment: Stable postop Plan: Resume home regimen. Last Assessment & Plan: Assessment: on Sinemet PLAN: - cont home meds Acute kidney injury 03/04/2019 03/06/2019 Last Assessment & Plan: Assessment: - noted to have HILARIO at OSH with Cr of 1.31 on presentation, improved with fluids - likely related to blood loss RESOLVED PLAN: - monitor - avoid nephrotoxins - renally dose meds Acute cystitis with hematuria 03/04/2019 Last Assessment & Plan: Assessment: - abnormal UA at OSH, was given Rocephin at OSH ED - OSH urine cx: presumptive E coli. pansensitive - appears only received one dose of Rocephin PLAN: - complete treatment with Bactrim Elevated troponin 12/06/2018 12/23/2018 Last Assessment & Plan: No chest pain. EKG - NSR, LVH, LAD Plan: repeat EKG and troponin Trend troponin if remains elevated here GI bleed 12/05/2018 12/23/2018 Last Assessment & Plan: Acute blood loss anemia likely from GI bleed. EGD, colonoscopy - no source of bleeding identify. CT angio Abd aorta + Iliofemoral: Enhancing polypoid lesion within the 1st segment of the duodenum concerning for slowly bleeding mass. Plan: type and screen Blood transfusion consent was taken Monitor CBC q8h for now Transfuse if Hb <7 GI consult in am Continue with PPI bid Hold ASA and other NSAID 12/[address] Bonilla's team for transgastric endoscopy + possible resection of remnant/dudenal first part if needed requested cardiology input due to severe as appreciate their input 12/19 OR on 12/21 npo at 1 am on 12/21 12/21 100 ml of periop bleed found a bleeding du and clipped saw in recovery room groggy coming out of anesthesia 2 hours procedure weaned ot 50% vm in hte theatre and brought to pacu on 2 liters out ot floor in an hour ODELL (iron deficiency anemia) 12/05/2018 Last Assessment & Plan: Assessment: most recent labs show normal H/H, but does take Ferrous sulfate Bronchitis 08/08/2018 04/08/2022 Postoperative hypertension 04/26 Overview: History: 04/22/2019: AVR Assessment: Requiring NTG infusion postop Plan: Titrate to maintain MAPs 65-75. Last Assessment & Plan: Home meds: losartan 50 - was on losartan-hctz prior to December admission stable PLAN: - hold in setting of ?GI bleed Depression 12/23/2018 Last Assessment & Plan: No suicidal or homicidal ideation. Stable. Continue with Citalopram documented as of this encounter (statuses as of 07/01/2022) [facility]06-07-2021 History of Past illness Narrative* Problem Noted Date Resolved Date Elective surgery 11/09/2020 04/08/2022 History of UTI 11/06/2020 04/08/2022 Last Assessment & Plan: Assessment: recent, but tx, pre-op WBC normal following UTI Other pancytopenia 01/01/2020 03/27/2020 Transition of care performed with sharing of clinical summary 04/30/2019 03/27/2020 Overview: Indication for Surgery: Prosthetic aortic valve endocarditis Preop LVEF: 75% RVF: Normal Postop LVEF: Normal RVF: Normal Cath: mild non obsx CAD Cards: [facility] EKG: NSR w/ 1st degree Important/Relevant PMH/PSH: 73F from [facility] with GERD, depression, HTN, gastric bypass, PUD with recent GIB, nephrolithiasis, s/p AVR 2002 admitted with prosthetic valve endocarditis c/b severe AI, posterior root abscess, Parkinsons, CKD, overactive bladder Preoperative Hospital Course Admitted 04/10 with severe aortic insufficiency related to endocarditis Airway Difficulty: Grade I - easy Pacing wires: No. A/V pulled 04/30 Chronological list of Surgeries and Major Events 04/22/2019: Redo AVR, MVr_ 04/29/2019: PPM placement A/P of Major Active ICU Problems Cardiac: EP following for pacer dependency with ventricular rate <30 underneath. Continue DDD 80, mA 10, 5. Formal echo 04/26 showed EF 75%, RV normal. NPO, plan for PPM today. Renal:CKD-- SrCr 0.89, downtrending. Avoid nephrotoxic agents, trend fluid balance and electrolytes. 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 Continue ceftriaxone. Transferred to floor 04/29/19 To do or to watch: Access: Right arm PICC placed 04/30. - POD#7. No tubes/wires. AV paced. On room air. - s/p Redo AVR, MVr for IE: Surg path reviewed. Bacterial PCR + Streptococcus mutans. ID following. PICC placed 04/30. CoPat started. Continue Ceftriaxone through 06/03. Post-op echo completed 04/26: EF 75%, trace Mr, trivial-small pericardial effusion. - s/p PPM: Device check completed 04/30. - FVO: Up 3.7kg. Continue lasix - Dispo: 73 yo female from [place], [place]. Daughter can help. SW following. PT/OT rec home PT/OT; HHC for IV antibiotics. Face-to face ordered. Should be ready for dc when accepting facility found. [facility] f/u scheduled. [facility] OPD f/u requested. Discharge Planning: Anticipated Discharge Date: 05/01/2019 if HHC arranged. Barriers to Discharge: Other: accepting home care agency and - In Process Care Management Discharge Needs: Needs Prior to Discharge: Accepting Facility;IV Antibiotics Volume overload 04/30/2019 04/08/2022 Overview: History: Post-op problem. Assessment: up 3.7kg. I/O -400 (not fully recorded). BUN/CR 30/0.9. K 5.2 Plan: Continue IV diuretics. Replace electrolytes prn. Montior labs, I/O. Monitor daily weight. Continue fluid restriction. Mobilize. Discharge planning issues 04/30/20192019 Overview: 73 yo female from [place], [place]. Daughter can help. SW following. PT/OT rec home PT/OT; HHC for IV antibiotics. Face-to face ordered. Should be ready for dc when accepting facility found. Atelectasis 04/26/2019 04/08/2022 Overview: History: Postop Assessment: Bibasilar on am CXR. Good gas exchange on room air. Plan: Continue BPH, OOB daily and Pep. Thrombocytopenia 04/24/2019 04/26/2019 On mechanically assisted ventilation 04/22/2019 04/23/2019 Overview: History: Post op cardiac surgery requiring elective intubation Assessment: Grade I airway Plan: WTE Post-operative pain 04/22/2019 05/01/2019 Overview: History: 04/22/2019: AVR Assessment: Pain control adequate Plan: Continue scheduled Tylenol and prn oxycodone and tramadol. Preop testing 04/19/2019 04/30/2019 Overview: Date of Consult: 04/12 Type of surgery: Redo AVR/root +/- MVr Date preop tests completed:April 19, 2019 Waiting on: Date Surgeon reviewed Patient: 04/18 Patient work up completed: Waiting on: Date of decision by Surgeon: April 19, 2019 Deemed candidate: Yes Date of surgery: 04/22 Reasons for delay: na [facility]ART and [facility]ASCULAR INSTITUTE PRE-OP CHECKLIST Surgeon: Dr. Forrest Rios Informed Consent Completed: pending STS Score: RISK SCORES Procedure: Isolated AVR CALCULATE Risk of Mortality: 4.605% Renal Failure: 3.404% Permanent Stroke: 2.380% Prolonged Ventilation: 22.071% DSW Infection: 0.035% Reoperation: 7.729% Morbidity or Mortality: 27.681% Short Length of Stay: 12.366% Long Length of Stay: 20.018% CAD: No Is intended procedure a CABG: No - H & P completed: Yes PA/LAT: Completed CT: Completed MRI: N/A LE US: N/A Cath: Yes - reviewed: Yes EKG: Completed Is patient on Amiodarone? Yes Echo:Completed EF %: 70 PI's: N/A Carotid: Completed Mapping: N/A Dental: Completed PFT's: Completed CBC, Coags, BMP, Mg, Phos Recent Labs 04/19/19 0507 04/18/19 0800 04/18/19 0455 04/17/19 0511 WBC 7.49 8.34 7.77 7.81 HB 7.9* 8.2* 7.3* 8.4* HCT 24.7* 25.7* 23.6* 26.5* PLT 144* 151 137* 155 NA 135* -- 134* 134* K 4.5 -- 4.4 4.4 CHLOR 103 -- 102 102 CO2 20* -- 23 22 BUN 37* -- 34* 27* CREAT 1.05* -- 1.03* 1.01* GLUC 83 -- 80 77 CA 8.2* -- 8.3* 8.2* MG 2.0 -- 2.0 1.9 UA: Normal HCG:N/A ABO/ABO Confirmed: Yes Blood ordered: Yes POS ABS 4units Willing to accept blood: Yes SA Swab: Yes - results: Pending Last Dose of Anticoagulation: none Op Note: Yes with Dr. Rios Pacemaker Check: No Implants: no Consults: ID, GI DM: No Cardiac Surgical prep: Yes SIGNATURE: Myrna Car RN LABOR RELATIONS ANALYST.CONFLICTS ANALYST DATE of SERVICE: 04/19/2019 TIME of SERVICE: 11:16 AM CHECKED BY: Moderate protein-calorie malnutrition 04/12/2019 10/02/2020 Overview: History: Post-op problem. Albumin 2.9. Noted on post-op nutrition screen. Assessment: 75% of meals consumed per I/O. Plan: Follow nutrition recs. Last Assessment & Plan: - nutrition referral Parkinson's disease 03/04/2019 06/11/2019 Overview: History: Takes Sinement at home Assessment: Stable postop Plan: Resume home regimen. Last Assessment & Plan: Assessment: on Sinemet PLAN: - cont home meds Acute kidney injury 03/04/2019 03/06/2019 Last Assessment & Plan: Assessment: - noted to have HILARIO at OSH with Cr of 1.31 on presentation, improved with fluids - likely related to blood loss RESOLVED PLAN: - monitor - avoid nephrotoxins - renally dose meds Acute cystitis with hematuria 03/04/2019 Last Assessment & Plan: Assessment: - abnormal UA at OSH, was given Rocephin at OSH ED - OSH urine cx: presumptive E coli. pansensitive - appears only received one dose of Rocephin PLAN: - complete treatment with Bactrim Elevated troponin 12/06/2018 12/23/2018 Last Assessment & Plan: No chest pain. EKG - NSR, LVH, LAD Plan: repeat EKG and troponin Trend troponin if remains elevated here GI bleed 12/05/2018 12/23/2018 Last Assessment & Plan: Acute blood loss anemia likely from GI bleed. EGD, colonoscopy - no source of bleeding identify. CT angio Abd aorta + Iliofemoral: Enhancing polypoid lesion within the 1st segment of the duodenum concerning for slowly bleeding mass. Plan: type and screen Blood transfusion consent was taken Monitor CBC q8h for now Transfuse if Hb <7 GI consult in am Continue with PPI bid Hold ASA and other NSAID 12/[address] Bonilla's team for transgastric endoscopy + possible resection of remnant/dudenal first part if needed requested cardiology input due to severe as appreciate their input 12/19 OR on 12/21 npo at 1 am on 12/21 12/21 100 ml of periop bleed found a bleeding du and clipped saw in recovery room groggy coming out of anesthesia 2 hours procedure weaned ot 50% vm in hte theatre and brought to pacu on 2 liters out ot floor in an hour ODELL (iron deficiency anemia) 12/05/2018 Last Assessment & Plan: Assessment: most recent labs show normal H/H, but does take Ferrous sulfate Bronchitis 08/08/2018 04/08/2022 Postoperative hypertension 04/26 Overview: History: 04/22/2019: AVR Assessment: Requiring NTG infusion postop Plan: Titrate to maintain MAPs 65-75. Last Assessment & Plan: Home meds: losartan 50 - was on losartan-hctz prior to December admission stable PLAN: - hold in setting of ?GI bleed Depression 12/23/2018 Last Assessment & Plan: No suicidal or homicidal ideation. Stable. Continue with Citalopram documented as of this encounter (statuses as of 07/12/2022) [facility]06-[facility]21 History of Past illness Narrative* Problem Noted Date Resolved Date Elective surgery 11/09/2020 04/08/2022 History of UTI 11/06/2020 04/08/2022 Last Assessment & Plan: Assessment: recent, but tx, pre-op WBC normal following UTI Other pancytopenia 01/01/2020 03/27/2020 Transition of care performed with sharing of clinical summary 04/30/2019 03/27/2020 Overview: Indication for Surgery: Prosthetic aortic valve endocarditis Preop LVEF: 75% RVF: Normal Postop LVEF: Normal RVF: Normal Cath: mild non obsx CAD Cards: [facility] EKG: NSR w/ 1st degree Important/Relevant PMH/PSH: 73F from [facility] with GERD, depression, HTN, gastric bypass, PUD with recent GIB, nephrolithiasis, s/p AVR 2002 admitted with prosthetic valve endocarditis c/b severe AI, posterior root abscess, Parkinsons, CKD, overactive bladder Preoperative Hospital Course Admitted 04/10 with severe aortic insufficiency related to endocarditis Airway Difficulty: Grade I - easy Pacing wires: No. A/V pulled 04/30 Chronological list of Surgeries and Major Events 04/22/2019: Redo AVR, MVr_ 04/29/2019: PPM placement A/P of Major Active ICU Problems Cardiac: EP following for pacer dependency with ventricular rate <30 underneath. Continue DDD 80, mA 10, 5. Formal echo 04/26 showed EF 75%, RV normal. NPO, plan for PPM today. Renal:CKD-- SrCr 0.89, downtrending. Avoid nephrotoxic agents, trend fluid balance and electrolytes. 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 Continue ceftriaxone. Transferred to floor 04/29/19 To do or to watch: Access: Right arm PICC placed 04/30. - POD#7. No tubes/wires. AV paced. On room air. - s/p Redo AVR, MVr for IE: Surg path reviewed. Bacterial PCR + Streptococcus mutans. ID following. PICC placed 04/30. CoPat started. Continue Ceftriaxone through 06/03. Post-op echo completed 04/26: EF 75%, trace Mr, trivial-small pericardial effusion. - s/p PPM: Device check completed 04/30. - FVO: Up 3.7kg. Continue lasix - Dispo: 73 yo female from [place], [place]. Daughter can help. SW following. PT/OT rec home PT/OT; HHC for IV antibiotics. Face-to face ordered. Should be ready for dc when accepting facility found. [facility] f/u scheduled. [facility] OPD f/u requested. Discharge Planning: Anticipated Discharge Date: 05/01/2019 if HHC arranged. Barriers to Discharge: Other: accepting home care agency and - In Process Care Management Discharge Needs: Needs Prior to Discharge: Accepting Facility;IV Antibiotics Volume overload 04/30/2019 04/08/2022 Overview: History: Post-op problem. Assessment: up 3.7kg. I/O -400 (not fully recorded). BUN/CR 30/0.9. K 5.2 Plan: Continue IV diuretics. Replace electrolytes prn. Montior labs, I/O. Monitor daily weight. Continue fluid restriction. Mobilize. Discharge planning issues 04/30/20192019 Overview: 73 yo female from [place], [place]. Daughter can help. SW following. PT/OT rec home PT/OT; HH for IV antibiotics. Face-to face ordered. Should be ready for dc when accepting facility found. Atelectasis 04/26/2019 04/08/2022 Overview: History: Postop Assessment: Bibasilar on am CXR. Good gas exchange on room air. Plan: Continue BPH, OOB daily and Pep. Thrombocytopenia 04/24/2019 04/26/2019 On mechanically assisted ventilation 04/22/2019 04/23/2019 Overview: History: Post op cardiac surgery requiring elective intubation Assessment: Grade I airway Plan: WTE Post-operative pain 04/22/2019 05/01/2019 Overview: History: 04/22/2019: AVR Assessment: Pain control adequate Plan: Continue scheduled Tylenol and prn oxycodone and tramadol. Preop testing 04/19/2019 04/30/2019 Overview: Date of Consult: 04/12 Type of surgery: Redo AVR/root +/- MVr Date preop tests completed:April 19, 2019 Waiting on: Date Surgeon reviewed Patient: 04/18 Patient work up completed: Waiting on: Date of decision by Surgeon: April 19, 2019 Deemed candidate: Yes Date of surgery: 04/22 Reasons for delay: na [facility]ART and VASCULAR INSTITUTE PRE-OP CHECKLIST Surgeon: Dr. Forrest Rios Informed Consent Completed: pending STS Score: RISK SCORES Procedure: Isolated AVR CALCULATE Risk of Mortality: 4.605% Renal Failure: 3.404% Permanent Stroke: 2.380% Prolonged Ventilation: 22.071% DSW Infection: 0.035% Reoperation: 7.729% Morbidity or Mortality: 27.681% Short Length of Stay: 12.366% Long Length of Stay: 20.018% CAD: No Is intended procedure a CABG: No - H & P completed: Yes PA/LAT: Completed CT: Completed MRI: N/A LE US: N/A Cath: Yes - reviewed: Yes EKG: Completed Is patient on Amiodarone? Yes Echo:Completed EF %: 70 PI's: N/A Carotid: Completed Mapping: N/A Dental: Completed PFT's: Completed CBC, Coags, BMP, Mg, Phos Recent Labs 04/19/19 0507 04/18/19 0800 04/18/19 0455 04/17/19 0511 WBC 7.49 8.34 7.77 7.81 HB 7.9* 8.2* 7.3* 8.4* HCT 24.7* 25.7* 23.6* 26.5* PLT 144* 151 137* 155 NA 135* -- 134* 134* K 4.5 -- 4.4 4.4 CHLOR 103 -- 102 102 CO2 20* -- 23 22 BUN 37* -- 34* 27* CREAT 1.05* -- 1.03* 1.01* GLUC 83 -- 80 77 CA 8.2* -- 8.3* 8.2* MG 2.0 -- 2.0 1.9 UA: Normal HCG:N/A ABO/ABO Confirmed: Yes Blood ordered: Yes POS ABS 4units Willing to accept blood: Yes SA Swab: Yes - results: Pending Last Dose of Anticoagulation: none Op Note: Yes with Dr. Rios Pacemaker Check: No Implants: no Consults: ID, GI DM: No Cardiac Surgical prep: Yes SIGNATURE: Myrna Car RN LABOR RELATIONS ANALYST.CONFLICTS ANALYST DATE of SERVICE: 04/19/2019 TIME of SERVICE: 11:16 AM CHECKED BY: Moderate protein-calorie malnutrition 04/12/2019 10/02/2020 Overview: History: Post-op problem. Albumin 2.9. Noted on post-op nutrition screen. Assessment: 75% of meals consumed per I/O. Plan: Follow nutrition recs. Last Assessment & Plan: - nutrition referral Parkinson's disease 03/04/2019 06/11/2019 Overview: History: Takes Sinement at home Assessment: Stable postop Plan: Resume home regimen. Last Assessment & Plan: Assessment: on Sinemet PLAN: - cont home meds Acute kidney injury 03/04/2019 03/06/2019 Last Assessment & Plan: Assessment: - noted to have HILARIO at OSH with Cr of 1.31 on presentation, improved with fluids - likely related to blood loss RESOLVED PLAN: - monitor - avoid nephrotoxins - renally dose meds Acute cystitis with hematuria 03/04/2019 Last Assessment & Plan: Assessment: - abnormal UA at OSH, was given Rocephin at OSH ED - OSH urine cx: presumptive E coli. pansensitive - appears only received one dose of Rocephin PLAN: - complete treatment with Bactrim Elevated troponin 12/06/2018 12/23/2018 Last Assessment & Plan: No chest pain. EKG - NSR, LVH, LAD Plan: repeat EKG and troponin Trend troponin if remains elevated here GI bleed 12/05/2018 12/23/2018 Last Assessment & Plan: Acute blood loss anemia likely from GI bleed. EGD, colonoscopy - no source of bleeding identify. CT angio Abd aorta + Iliofemoral: Enhancing polypoid lesion within the 1st segment of the duodenum concerning for slowly bleeding mass. Plan: type and screen Blood transfusion consent was taken Monitor CBC q8h for now Transfuse if Hb <7 GI consult in am Continue with PPI bid Hold ASA and other NSAID 12/[address] Bonilla's team for transgastric endoscopy + possible resection of remnant/dudenal first part if needed requested cardiology input due to severe as appreciate their input 12/19 OR on 12/21 npo at 1 am on 12/21 12/21 100 ml of periop bleed found a bleeding du and clipped saw in recovery room groggy coming out of anesthesia 2 hours procedure weaned ot 50% vm in hte theatre and brought to pacu on 2 liters out ot floor in an hour ODELL (iron deficiency anemia) 12/05/2018 Last Assessment & Plan: Assessment: most recent labs show normal H/H, but does take Ferrous sulfate Bronchitis 08/08/2018 04/08/2022 Postoperative hypertension 04/26 Overview: History: 04/22/2019: AVR Assessment: Requiring NTG infusion postop Plan: Titrate to maintain MAPs 65-75. Last Assessment & Plan: Home meds: losartan 50 - was on losartan-hctz prior to December admission stable PLAN: - hold in setting of ?GI bleed Depression 12/23/2018 Last Assessment & Plan: No suicidal or homicidal ideation. Stable. Continue with Citalopram documented as of this encounter (statuses as of 08/10/2022) [facility]06-07-2021 History of Past illness Narrative* Problem Noted Date Resolved Date Elective surgery 11/09/2020 04/08/2022 History of UTI 11/06/2020 04/08/2022 Last Assessment & Plan: Assessment: recent, but tx, pre-op WBC normal following UTI Other pancytopenia 01/01/2020 03/27/2020 Transition of care performed with sharing of clinical summary 04/30/2019 03/27/2020 Overview: Indication for Surgery: Prosthetic aortic valve endocarditis Preop LVEF: 75% RVF: Normal Postop LVEF: Normal RVF: Normal Cath: mild non obsx CAD Cards: [facility] EKG: NSR w/ 1st degree Important/Relevant PMH/PSH: 73F from [place] with GERD, depression, HTN, gastric bypass, PUD with recent GIB, nephrolithiasis, s/p AVR 2002 admitted with prosthetic valve endocarditis c/b severe AI, posterior root abscess, Parkinsons, CKD, overactive bladder Preoperative Hospital Course Admitted 04/10 with severe aortic insufficiency related to endocarditis Airway Difficulty: Grade I - easy Pacing wires: No. A/V pulled 04/30 Chronological list of Surgeries and Major Events 04/22/2019: Redo AVR, MVr_ 04/29/2019: PPM placement A/P of Major Active ICU Problems Cardiac: EP following for pacer dependency with ventricular rate <30 underneath. Continue DDD 80, mA 10, 5. Formal echo 04/26 showed EF 75%, RV normal. NPO, plan for PPM today. Renal:CKD-- SrCr 0.89, downtrending. Avoid nephrotoxic agents, trend fluid balance and electrolytes. 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 Continue ceftriaxone. Transferred to floor 04/29/19 To do or to watch: Access: Right arm PICC placed 04/30. - POD#7. No tubes/wires. AV paced. On room air. - s/p Redo AVR, MVr for IE: Surg path reviewed. Bacterial PCR + Streptococcus mutans. ID following. PICC placed 04/30. CoPat started. Continue Ceftriaxone through 06/03. Post-op echo completed 04/26: EF 75%, trace Mr, trivial-small pericardial effusion. - s/p PPM: Device check completed 04/30. - FVO: Up 3.7kg. Continue lasix - Dispo: 73 yo female from [place], [place]. Daughter can help. SW following. PT/OT rec home PT/OT; HHC for IV antibiotics. Face-to face ordered. Should be ready for dc when accepting facility found. [facility] f/u scheduled. [facility] f/u requested. Discharge Planning: Anticipated Discharge Date: 05/01/2019 if HHC arranged. Barriers to Discharge: Other: accepting home care agency and - In Process Care Management Discharge Needs: Needs Prior to Discharge: Accepting Facility;IV Antibiotics Volume overload 04/30/2019 04/08/2022 Overview: History: Post-op problem. Assessment: up 3.7kg. I/O -400 (not fully recorded). BUN/CR 30/0.9. K 5.2 Plan: Continue IV diuretics. Replace electrolytes prn. Montior labs, I/O. Monitor daily weight. Continue fluid restriction. Mobilize. Discharge planning issues 04/30/20192019 Overview: 73 yo female from [place], [place]. Daughter can help. SW following. PT/OT rec home PT/OT; HHC for IV antibiotics. Face-to face ordered. Should be ready for dc when accepting facility found. Atelectasis 04/26/2019 04/08/2022 Overview: History: Postop Assessment: Bibasilar on am CXR. Good gas exchange on room air. Plan: Continue BPH, OOB daily and Pep. Thrombocytopenia 04/24/2019 04/26/2019 On mechanically assisted ventilation 04/22/2019 04/23/2019 Overview: History: Post op cardiac surgery requiring elective intubation Assessment: Grade I airway Plan: WTE Post-operative pain 04/22/2019 05/01/2019 Overview: History: 04/22/2019: AVR Assessment: Pain control adequate Plan: Continue scheduled Tylenol and prn oxycodone and tramadol. Preop testing 04/19/2019 04/30/2019 Overview: Date of Consult: 04/12 Type of surgery: Redo AVR/root +/- MVr Date preop tests completed:April 19, 2019 Waiting on: Date Surgeon reviewed Patient: 04/18 Patient work up completed: Waiting on: Date of decision by Surgeon: April 19, 2019 Deemed candidate: Yes Date of surgery: 04/22 Reasons for delay: na [facility] and [facility] PRE-OP CHECKLIST Surgeon: Dr. Forrest Rios Informed Consent Completed: pending STS Score: RISK SCORES Procedure: Isolated AVR CALCULATE Risk of Mortality: 4.605% Renal Failure: 3.404% Permanent Stroke: 2.380% Prolonged Ventilation: 22.071% DSW Infection: 0.035% Reoperation: 7.729% Morbidity or Mortality: 27.681% Short Length of Stay: 12.366% Long Length of Stay: 20.018% CAD: No Is intended procedure a CABG: No - H & P completed: Yes PA/LAT: Completed CT: Completed MRI: N/A LE US: N/A Cath: Yes - reviewed: Yes EKG: Completed Is patient on Amiodarone? Yes Echo:Completed EF %: 70 PI's: N/A Carotid: Completed Mapping: N/A Dental: Completed PFT's: Completed CBC, Coags, BMP, Mg, Phos Recent Labs 04/19/19 0507 04/18/19 0800 04/18/19 0455 04/17/19 0511 WBC 7.49 8.34 7.77 7.81 HB 7.9* 8.2* 7.3* 8.4* HCT 24.7* 25.7* 23.6* 26.5* PLT 144* 151 137* 155 NA 135* -- 134* 134* K 4.5 -- 4.4 4.4 CHLOR 103 -- 102 102 CO2 20* -- 23 22 BUN 37* -- 34* 27* CREAT 1.05* -- 1.03* 1.01* GLUC 83 -- 80 77 CA 8.2* -- 8.3* 8.2* MG 2.0 -- 2.0 1.9 UA: Normal HCG:N/A ABO/ABO Confirmed: Yes Blood ordered: Yes POS ABS 4units Willing to accept blood: Yes SA Swab: Yes - results: Pending Last Dose of Anticoagulation: none Op Note: Yes with Dr. Elgharably Pacemaker Check: No Implants: no Consults: ID, GI DM: No Cardiac Surgical prep: Yes SIGNATURE: Myrna Car RN LABOR RELATIONS ANALYST.CONFLICTS ANALYST DATE of SERVICE: 04/19/2019 TIME of SERVICE: 11:16 AM CHECKED BY: Moderate protein-calorie malnutrition 04/12/2019 10/02/2020 Overview: History: Post-op problem. Albumin 2.9. Noted on post-op nutrition screen. Assessment: 75% of meals consumed per I/O. Plan: Follow nutrition recs. Last Assessment & Plan: - nutrition referral Parkinson's disease 03/04/2019 06/11/2019 Overview: History: Takes Sinement at home Assessment: Stable postop Plan: Resume home regimen. Last Assessment & Plan: Assessment: on Sinemet PLAN: - cont home meds Acute kidney injury 03/04/2019 03/06/2019 Last Assessment & Plan: Assessment: - noted to have HILARIO at OSH with Cr of 1.31 on presentation, improved with fluids - likely related to blood loss RESOLVED PLAN: - monitor - avoid nephrotoxins - renally dose meds Acute cystitis with hematuria 03/04/2019 Last Assessment & Plan: Assessment: - abnormal UA at OSH, was given Rocephin at OSH ED - OSH urine cx: presumptive E coli. pansensitive - appears only received one dose of Rocephin PLAN: - complete treatment with Bactrim Elevated troponin 12/06/2018 12/23/2018 Last Assessment & Plan: No chest pain. EKG - NSR, LVH, LAD Plan: repeat EKG and troponin Trend troponin if remains elevated here GI bleed 12/05/2018 12/23/2018 Last Assessment & Plan: Acute blood loss anemia likely from GI bleed. EGD, colonoscopy - no source of bleeding identify. CT angio Abd aorta + Iliofemoral: Enhancing polypoid lesion within the 1st segment of the duodenum concerning for slowly bleeding mass. Plan: type and screen Blood transfusion consent was taken Monitor CBC q8h for now Transfuse if Hb <7 GI consult in am Continue with PPI bid Hold ASA and other NSAID 12/[address] Bonilla's team for transgastric endoscopy + possible resection of remnant/dudenal first part if needed requested cardiology input due to severe as appreciate their input 12/19 OR on 12/21 npo at 1 am on 12/21 12/21 100 ml of periop bleed found a bleeding du and clipped saw in recovery room groggy coming out of anesthesia 2 hours procedure weaned ot 50% vm in hte theatre and brought to pacu on 2 liters out ot floor in an hour ODELL (iron deficiency anemia) 12/05/2018 Last Assessment & Plan: Assessment: most recent labs show normal H/H, but does take Ferrous sulfate Bronchitis 08/08/2018 04/08/2022 Postoperative hypertension 04/26 Overview: History: 04/22/2019: AVR Assessment: Requiring NTG infusion postop Plan: Titrate to maintain MAPs 65-75. Last Assessment & Plan: Home meds: losartan 50 - was on losartan-hctz prior to December admission stable PLAN: - hold in setting of ?GI bleed Depression 12/23/2018 Last Assessment & Plan: No suicidal or homicidal ideation. Stable. Continue with Citalopram documented as of this encounter (statuses as of 09/01/2022) [facility]06-07-2021 History of Past illness Narrative* Problem Noted Date Resolved Date Elective surgery 11/09/2020 04/08/2022 History of UTI 11/06/2020 04/08/2022 Last Assessment & Plan: Assessment: recent, but tx, pre-op WBC normal following UTI Other pancytopenia 01/01/2020 03/27/2020 Transition of care performed with sharing of clinical summary 04/30/2019 03/27/2020 Overview: Indication for Surgery: Prosthetic aortic valve endocarditis Preop LVEF: 75% RVF: Normal Postop LVEF: Normal RVF: Normal Cath: mild non obsx CAD Cards: [facility] EKG: NSR w/ 1st degree Important/Relevant PMH/PSH: 73F from [facility] with GERD, depression, HTN, gastric bypass, PUD with recent GIB, nephrolithiasis, s/p AVR 2002 admitted with prosthetic valve endocarditis c/b severe AI, posterior root abscess, Parkinsons, CKD, overactive bladder Preoperative Hospital Course Admitted 04/10 with severe aortic insufficiency related to endocarditis Airway Difficulty: Grade I - easy Pacing wires: No. A/V pulled 04/30 Chronological list of Surgeries and Major Events 04/22/2019: Redo AVR, MVr_ 04/29/2019: PPM placement A/P of Major Active ICU Problems Cardiac: EP following for pacer dependency with ventricular rate <30 underneath. Continue DDD 80, mA 10, 5. Formal echo 04/26 showed EF 75%, RV normal. NPO, plan for PPM today. Renal:CKD-- SrCr 0.89, downtrending. Avoid nephrotoxic agents, trend fluid balance and electrolytes. 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 Continue ceftriaxone. Transferred to floor 04/29/19 To do or to watch: Access: Right arm PICC placed 04/30. - POD#7. No tubes/wires. AV paced. On room air. - s/p Redo AVR, MVr for IE: Surg path reviewed. Bacterial PCR + Streptococcus mutans. ID following. PICC placed 04/30. CoPat started. Continue Ceftriaxone through 06/03. Post-op echo completed 04/26: EF 75%, trace Mr, trivial-small pericardial effusion. - s/p PPM: Device check completed 04/30. - FVO: Up 3.7kg. Continue lasix - Dispo: 73 yo female from [place], [place]. Daughter can help. SW following. PT/OT rec home PT/OT; HHC for IV antibiotics. Face-to face ordered. Should be ready for dc when accepting facility found. [facility] f/u scheduled. [facility] f/u requested. Discharge Planning: Anticipated Discharge Date: 05/01/2019 if HHC arranged. Barriers to Discharge: Other: accepting home care agency and - In Process Care Management Discharge Needs: Needs Prior to Discharge: Accepting Facility;IV Antibiotics Volume overload 04/30/2019 04/08/2022 Overview: History: Post-op problem. Assessment: up 3.7kg. I/O -400 (not fully recorded). BUN/CR 30/0.9. K 5.2 Plan: Continue IV diuretics. Replace electrolytes prn. Montior labs, I/O. Monitor daily weight. Continue fluid restriction. Mobilize. Discharge planning issues 04/30/20192019 Overview: 73 yo female from [place], [place]. Daughter can help. SW following. PT/OT rec home PT/OT; HHC for IV antibiotics. Face-to face ordered. Should be ready for dc when accepting facility found. Atelectasis 04/26/2019 04/08/2022 Overview: History: Postop Assessment: Bibasilar on am CXR. Good gas exchange on room air. Plan: Continue BPH, OOB daily and Pep. Thrombocytopenia 04/24/2019 04/26/2019 On mechanically assisted ventilation 04/22/2019 04/23/2019 Overview: History: Post op cardiac surgery requiring elective intubation Assessment: Grade I airway Plan: WTE Post-operative pain 04/22/2019 05/01/2019 Overview: History: 04/22/2019: AVR Assessment: Pain control adequate Plan: Continue scheduled Tylenol and prn oxycodone and tramadol. Preop testing 04/19/2019 04/30/2019 Overview: Date of Consult: 04/12 Type of surgery: Redo AVR/root +/- MVr Date preop tests completed:April 19, 2019 Waiting on: Date Surgeon reviewed Patient: 04/18 Patient work up completed: Waiting on: Date of decision by Surgeon: April 19, 2019 Deemed candidate: Yes Date of surgery: 04/22 Reasons for delay: na [facility]ART and [facility] PRE-OP CHECKLIST Surgeon: Dr. Forrest Rios Informed Consent Completed: pending STS Score: RISK SCORES Procedure: Isolated AVR CALCULATE Risk of Mortality: 4.605% Renal Failure: 3.404% Permanent Stroke: 2.380% Prolonged Ventilation: 22.071% DSW Infection: 0.035% Reoperation: 7.729% Morbidity or Mortality: 27.681% Short Length of Stay: 12.366% Long Length of Stay: 20.018% CAD: No Is intended procedure a CABG: No - H & P completed: Yes PA/LAT: Completed CT: Completed MRI: N/A LE US: N/A Cath: Yes - reviewed: Yes EKG: Completed Is patient on Amiodarone? Yes Echo:Completed EF %: 70 PI's: N/A Carotid: Completed Mapping: N/A Dental: Completed PFT's: Completed CBC, Coags, BMP, Mg, Phos Recent Labs 04/19/19 0507 04/18/19 0800 04/18/19 0455 04/17/19 0511 WBC 7.49 8.34 7.77 7.81 HB 7.9* 8.2* 7.3* 8.4* HCT 24.7* 25.7* 23.6* 26.5* PLT 144* 151 137* 155 NA 135* -- 134* 134* K 4.5 -- 4.4 4.4 CHLOR 103 -- 102 102 CO2 20* -- 23 22 BUN 37* -- 34* 27* CREAT 1.05* -- 1.03* 1.01* GLUC 83 -- 80 77 CA 8.2* -- 8.3* 8.2* MG 2.0 -- 2.0 1.9 UA: Normal HCG:N/A ABO/ABO Confirmed: Yes Blood ordered: Yes POS ABS 4units Willing to accept blood: Yes SA Swab: Yes - results: Pending Last Dose of Anticoagulation: none Op Note: Yes with Dr. Rios Pacemaker Check: No Implants: no Consults: ID, GI DM: No Cardiac Surgical prep: Yes SIGNATURE: Myrna Car RN LABOR RELATIONS ANALYST.CONFLICTS ANALYST DATE of SERVICE: 04/19/2019 TIME of SERVICE: 11:16 AM CHECKED BY: Moderate protein-calorie malnutrition 04/12/2019 10/02/2020 Overview: History: Post-op problem. Albumin 2.9. Noted on post-op nutrition screen. Assessment: 75% of meals consumed per I/O. Plan: Follow nutrition recs. Last Assessment & Plan: - nutrition referral Parkinson's disease 03/04/2019 06/11/2019 Overview: History: Takes Sinement at home Assessment: Stable postop Plan: Resume home regimen. Last Assessment & Plan: Assessment: on Sinemet PLAN: - cont home meds Acute kidney injury 03/04/2019 03/06/2019 Last Assessment & Plan: Assessment: - noted to have HILARIO at OSH with Cr of 1.31 on presentation, improved with fluids - likely related to blood loss RESOLVED PLAN: - monitor - avoid nephrotoxins - renally dose meds Acute cystitis with hematuria 03/04/2019 Last Assessment & Plan: Assessment: - abnormal UA at OSH, was given Rocephin at OSH ED - OSH urine cx: presumptive E coli. pansensitive - appears only received one dose of Rocephin PLAN: - complete treatment with Bactrim Elevated troponin 12/06/2018 12/23/2018 Last Assessment & Plan: No chest pain. EKG - NSR, LVH, LAD Plan: repeat EKG and troponin Trend troponin if remains elevated here GI bleed 12/05/2018 12/23/2018 Last Assessment & Plan: Acute blood loss anemia likely from GI bleed. EGD, colonoscopy - no source of bleeding identify. CT angio Abd aorta + Iliofemoral: Enhancing polypoid lesion within the 1st segment of the duodenum concerning for slowly bleeding mass. Plan: type and screen Blood transfusion consent was taken Monitor CBC q8h for now Transfuse if Hb <7 GI consult in am Continue with PPI bid Hold ASA and other NSAID 12/[address] Bonilla's team for transgastric endoscopy + possible resection of remnant/dudenal first part if needed requested cardiology input due to severe as appreciate their input 12/19 OR on 12/21 npo at 1 am on 12/21 12/21 100 ml of periop bleed found a bleeding du and clipped saw in recovery room groggy coming out of anesthesia 2 hours procedure weaned ot 50% vm in hte theatre and brought to pacu on 2 liters out ot floor in an hour ODELL (iron deficiency anemia) 12/05/2018 Last Assessment & Plan: Assessment: most recent labs show normal H/H, but does take Ferrous sulfate Bronchitis 08/08/2018 04/08/2022 Postoperative hypertension 04/26 Overview: History: 04/22/2019: AVR Assessment: Requiring NTG infusion postop Plan: Titrate to maintain MAPs 65-75. Last Assessment & Plan: Home meds: losartan 50 - was on losartan-hctz prior to December admission stable PLAN: - hold in setting of ?GI bleed Depression 12/23/2018 Last Assessment & Plan: No suicidal or homicidal ideation. Stable. Continue with Citalopram documented as of this encounter (statuses as of 09/02/2022) [facility]06-[facility]21 History of Past illness Narrative* Problem Noted Date Resolved Date Elective surgery 11/09/2020 04/08/2022 History of UTI 11/06/2020 04/08/2022 Last Assessment & Plan: Assessment: recent, but tx, pre-op WBC normal following UTI Other pancytopenia 01/01/2020 03/27/2020 Transition of care performed with sharing of clinical summary 04/30/2019 03/27/2020 Overview: Indication for Surgery: Prosthetic aortic valve endocarditis Preop LVEF: 75% RVF: Normal Postop LVEF: Normal RVF: Normal Cath: mild non obsx CAD Cards: [facility] EKG: NSR w/ 1st degree Important/Relevant PMH/PSH: 73F from [facility] with GERD, depression, HTN, gastric bypass, PUD with recent GIB, nephrolithiasis, s/p AVR 2002 admitted with prosthetic valve endocarditis c/b severe AI, posterior root abscess, Parkinsons, CKD, overactive bladder Preoperative Hospital Course Admitted 04/10 with severe aortic insufficiency related to endocarditis Airway Difficulty: Grade I - easy Pacing wires: No. A/V pulled 04/30 Chronological list of Surgeries and Major Events 04/22/2019: Redo AVR, MVr_ 04/29/2019: PPM placement A/P of Major Active ICU Problems Cardiac: EP following for pacer dependency with ventricular rate <30 underneath. Continue DDD 80, mA 10, 5. Formal echo 04/26 showed EF 75%, RV normal. NPO, plan for PPM today. Renal:CKD-- SrCr 0.89, downtrending. Avoid nephrotoxic agents, trend fluid balance and electrolytes. 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 Continue ceftriaxone. Transferred to floor 04/29/19 To do or to watch: Access: Right arm PICC placed 04/30. - POD#7. No tubes/wires. AV paced. On room air. - s/p Redo AVR, MVr for IE: Surg path reviewed. Bacterial PCR + Streptococcus mutans. ID following. PICC placed 04/30. CoPat started. Continue Ceftriaxone through 06/03. Post-op echo completed 04/26: EF 75%, trace Mr, trivial-small pericardial effusion. - s/p PPM: Device check completed 04/30. - FVO: Up 3.7kg. Continue lasix - Dispo: 73 yo female from [place], [place]. Daughter can help. SW following. PT/OT rec home PT/OT; HHC for IV antibiotics. Face-to face ordered. Should be ready for dc when accepting facility found. [facility] f/u scheduled. [facility] O[facility] f/u requested. Discharge Planning: Anticipated Discharge Date: 05/01/2019 if HHC arranged. Barriers to Discharge: Other: accepting home care agency and - In Process Care Management Discharge Needs: Needs Prior to Discharge: Accepting Facility;IV Antibiotics Volume overload 04/30/2019 04/08/2022 Overview: History: Post-op problem. Assessment: up 3.7kg. I/O -400 (not fully recorded). BUN/CR 30/0.9. K 5.2 Plan: Continue IV diuretics. Replace electrolytes prn. Montior labs, I/O. Monitor daily weight. Continue fluid restriction. Mobilize. Discharge planning issues 04/30/20192019 Overview: 73 yo female from [place], [place]. Daughter can help. SW following. PT/OT rec home PT/OT; [facility] for IV antibiotics. Face-to face ordered. Should be ready for dc when accepting facility found. Atelectasis 04/26/2019 04/08/2022 Overview: History: Postop Assessment: Bibasilar on am CXR. Good gas exchange on room air. Plan: Continue BPH, OOB daily and Pep. Thrombocytopenia 04/24/2019 04/26/2019 On mechanically assisted ventilation 04/22/2019 04/23/2019 Overview: History: Post op cardiac surgery requiring elective intubation Assessment: Grade I airway Plan: WTE Post-operative pain 04/22/2019 05/01/2019 Overview: History: 04/22/2019: AVR Assessment: Pain control adequate Plan: Continue scheduled Tylenol and prn oxycodone and tramadol. Preop testing 04/19/2019 04/30/2019 Overview: Date of Consult: 04/12 Type of surgery: Redo AVR/root +/- MVr Date preop tests completed:April 19, 2019 Waiting on: Date Surgeon reviewed Patient: 04/18 Patient work up completed: Waiting on: Date of decision by Surgeon: April 19, 2019 Deemed candidate: Yes Date of surgery: 04/22 Reasons for delay: na [facility]ART and [facility] PRE-OP CHECKLIST Surgeon: Dr. Forrest Rios Informed Consent Completed: pending STS Score: RISK SCORES Procedure: Isolated AVR CALCULATE Risk of Mortality: 4.605% Renal Failure: 3.404% Permanent Stroke: 2.380% Prolonged Ventilation: 22.071% DSW Infection: 0.035% Reoperation: 7.729% Morbidity or Mortality: 27.681% Short Length of Stay: 12.366% Long Length of Stay: 20.018% CAD: No Is intended procedure a CABG: No - H & P completed: Yes PA/LAT: Completed CT: Completed MRI: N/A LE US: N/A Cath: Yes - reviewed: Yes EKG: Completed Is patient on Amiodarone? Yes Echo:Completed EF %: 70 PI's: N/A Carotid: Completed Mapping: N/A Dental: Completed PFT's: Completed CBC, Coags, BMP, Mg, Phos Recent Labs 04/19/19 0507 04/18/19 0800 04/18/19 0455 04/17/19 0511 WBC 7.49 8.34 7.77 7.81 HB 7.9* 8.2* 7.3* 8.4* HCT 24.7* 25.7* 23.6* 26.5* PLT 144* 151 137* 155 NA 135* -- 134* 134* K 4.5 -- 4.4 4.4 CHLOR 103 -- 102 102 CO2 20* -- 23 22 BUN 37* -- 34* 27* CREAT 1.05* -- 1.03* 1.01* GLUC 83 -- 80 77 CA 8.2* -- 8.3* 8.2* MG 2.0 -- 2.0 1.9 UA: Normal HCG:N/A ABO/ABO Confirmed: Yes Blood ordered: Yes POS ABS 4units Willing to accept blood: Yes SA Swab: Yes - results: Pending Last Dose of Anticoagulation: none Op Note: Yes with Dr. Rios Pacemaker Check: No Implants: no Consults: ID, GI DM: No Cardiac Surgical prep: Yes SIGNATURE: Myrna Car RN LABOR RELATIONS ANALYST.CONFLICTS ANALYST DATE of SERVICE: 04/19/2019 TIME of SERVICE: 11:16 AM CHECKED BY: Moderate protein-calorie malnutrition 04/12/2019 10/02/2020 Overview: History: Post-op problem. Albumin 2.9. Noted on post-op nutrition screen. Assessment: 75% of meals consumed per I/O. Plan: Follow nutrition recs. Last Assessment & Plan: - nutrition referral Parkinson's disease 03/04/2019 06/11/2019 Overview: History: Takes Sinement at home Assessment: Stable postop Plan: Resume home regimen. Last Assessment & Plan: Assessment: on Sinemet PLAN: - cont home meds Acute kidney injury 03/04/2019 03/06/2019 Last Assessment & Plan: Assessment: - noted to have HILARIO at OSH with Cr of 1.31 on presentation, improved with fluids - likely related to blood loss RESOLVED PLAN: - monitor - avoid nephrotoxins - renally dose meds Acute cystitis with hematuria 03/04/2019 Last Assessment & Plan: Assessment: - abnormal UA at OSH, was given Rocephin at OSH ED - OSH urine cx: presumptive E coli. pansensitive - appears only received one dose of Rocephin PLAN: - complete treatment with Bactrim Elevated troponin 12/06/2018 12/23/2018 Last Assessment & Plan: No chest pain. EKG - NSR, LVH, LAD Plan: repeat EKG and troponin Trend troponin if remains elevated here GI bleed 12/05/2018 12/23/2018 Last Assessment & Plan: Acute blood loss anemia likely from GI bleed. EGD, colonoscopy - no source of bleeding identify. CT angio Abd aorta + Iliofemoral: Enhancing polypoid lesion within the 1st segment of the duodenum concerning for slowly bleeding mass. Plan: type and screen Blood transfusion consent was taken Monitor CBC q8h for now Transfuse if Hb <7 GI consult in am Continue with PPI bid Hold ASA and other NSAID 12/[address] Bonilla's team for transgastric endoscopy + possible resection of remnant/dudenal first part if needed requested cardiology input due to severe as appreciate their input 12/19 OR on 12/21 npo at 1 am on 12/21 12/21 100 ml of periop bleed found a bleeding du and clipped saw in recovery room groggy coming out of anesthesia 2 hours procedure weaned ot 50% vm in hte theatre and brought to pacu on 2 liters out ot floor in an hour ODELL (iron deficiency anemia) 12/05/2018 Last Assessment & Plan: Assessment: most recent labs show normal H/H, but does take Ferrous sulfate Bronchitis 08/08/2018 04/08/2022 Postoperative hypertension 04/26 Overview: History: 04/22/2019: AVR Assessment: Requiring NTG infusion postop Plan: Titrate to maintain MAPs 65-75. Last Assessment & Plan: Home meds: losartan 50 - was on losartan-hctz prior to December admission stable PLAN: - hold in setting of ?GI bleed Depression 12/23/2018 Last Assessment & Plan: No suicidal or homicidal ideation. Stable. Continue with Citalopram documented as of this encounter (statuses as of 09/05/2022) [facility]06-07-2021 History of Past illness Narrative* Problem Noted Date Resolved Date Elective surgery 11/09/2020 04/08/2022 History of UTI 11/06/2020 04/08/2022 Last Assessment & Plan: Assessment: recent, but tx, pre-op WBC normal following UTI Other pancytopenia 01/01/2020 03/27/2020 Transition of care performed with sharing of clinical summary 04/30/2019 03/27/2020 Overview: Indication for Surgery: Prosthetic aortic valve endocarditis Preop LVEF: 75% RVF: Normal Postop LVEF: Normal RVF: Normal Cath: mild non obsx CAD Cards: [facility] EKG: NSR w/ 1st degree Important/Relevant PMH/PSH: 73F from [facility] with GERD, depression, HTN, gastric bypass, PUD with recent GIB, nephrolithiasis, s/p AVR 2002 admitted with prosthetic valve endocarditis c/b severe AI, posterior root abscess, Parkinsons, CKD, overactive bladder Preoperative Hospital Course Admitted 04/10 with severe aortic insufficiency related to endocarditis Airway Difficulty: Grade I - easy Pacing wires: No. A/V pulled 04/30 Chronological list of Surgeries and Major Events 04/22/2019: Redo AVR, MVr_ 04/29/2019: PPM placement A/P of Major Active ICU Problems Cardiac: EP following for pacer dependency with ventricular rate <30 underneath. Continue DDD 80, mA 10, 5. Formal echo 04/26 showed EF 75%, RV normal. NPO, plan for PPM today. Renal:CKD-- SrCr 0.89, downtrending. Avoid nephrotoxic agents, trend fluid balance and electrolytes. 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 Continue ceftriaxone. Transferred to floor 04/29/19 To do or to watch: Access: Right arm PICC placed 04/30. - POD#7. No tubes/wires. AV paced. On room air. - s/p Redo AVR, MVr for IE: Surg path reviewed. Bacterial PCR + Streptococcus mutans. ID following. PICC placed 04/30. CoPat started. Continue Ceftriaxone through 06/03. Post-op echo completed 04/26: EF 75%, trace Mr, trivial-small pericardial effusion. - s/p PPM: Device check completed 04/30. - FVO: Up 3.7kg. Continue lasix - Dispo: 73 yo female from [place], [place]. Daughter can help. SW following. PT/OT rec home PT/OT; HHC for IV antibiotics. Face-to face ordered. Should be ready for dc when accepting facility found. [facility] f/u scheduled. [facility] f/u requested. Discharge Planning: Anticipated Discharge Date: 05/01/2019 if HHC arranged. Barriers to Discharge: Other: accepting home care agency and - In Process Care Management Discharge Needs: Needs Prior to Discharge: Accepting Facility;IV Antibiotics Volume overload 04/30/2019 04/08/2022 Overview: History: Post-op problem. Assessment: up 3.7kg. I/O -400 (not fully recorded). BUN/CR 30/0.9. K 5.2 Plan: Continue IV diuretics. Replace electrolytes prn. Montior labs, I/O. Monitor daily weight. Continue fluid restriction. Mobilize. Discharge planning issues 04/30/20192019 Overview: 73 yo female from [place], [place]. Daughter can help. SW following. PT/OT rec home PT/OT; HHC for IV antibiotics. Face-to face ordered. Should be ready for dc when accepting facility found. Atelectasis 04/26/2019 04/08/2022 Overview: History: Postop Assessment: Bibasilar on am CXR. Good gas exchange on room air. Plan: Continue BPH, OOB daily and Pep. Thrombocytopenia 04/24/2019 04/26/2019 On mechanically assisted ventilation 04/22/2019 04/23/2019 Overview: History: Post op cardiac surgery requiring elective intubation Assessment: Grade I airway Plan: WTE Post-operative pain 04/22/2019 05/01/2019 Overview: History: 04/22/2019: AVR Assessment: Pain control adequate Plan: Continue scheduled Tylenol and prn oxycodone and tramadol. Preop testing 04/19/2019 04/30/2019 Overview: Date of Consult: 04/12 Type of surgery: Redo AVR/root +/- MVr Date preop tests completed:April 19, 2019 Waiting on: Date Surgeon reviewed Patient: 04/18 Patient work up completed: Waiting on: Date of decision by Surgeon: April 19, 2019 Deemed candidate: Yes Date of surgery: 04/22 Reasons for delay: na [facility]ART and [facility]ASC[facility]STITUTE PRE-OP CHECKLIST Surgeon: Dr. Forrest Rios Informed Consent Completed: pending STS Score: RISK SCORES Procedure: Isolated AVR CALCULATE Risk of Mortality: 4.605% Renal Failure: 3.404% Permanent Stroke: 2.380% Prolonged Ventilation: 22.071% DSW Infection: 0.035% Reoperation: 7.729% Morbidity or Mortality: 27.681% Short Length of Stay: 12.366% Long Length of Stay: 20.018% CAD: No Is intended procedure a CABG: No - H & P completed: Yes PA/LAT: Completed CT: Completed MRI: N/A LE US: N/A Cath: Yes - reviewed: Yes EKG: Completed Is patient on Amiodarone? Yes Echo:Completed EF %: 70 PI's: N/A Carotid: Completed Mapping: N/A Dental: Completed PFT's: Completed CBC, Coags, BMP, Mg, Phos Recent Labs 04/19/19 0507 04/18/19 0800 04/18/19 0455 04/17/19 0511 WBC 7.49 8.34 7.77 7.81 HB 7.9* 8.2* 7.3* 8.4* HCT 24.7* 25.7* 23.6* 26.5* PLT 144* 151 137* 155 NA 135* -- 134* 134* K 4.5 -- 4.4 4.4 CHLOR 103 -- 102 102 CO2 20* -- 23 22 BUN 37* -- 34* 27* CREAT 1.05* -- 1.03* 1.01* GLUC 83 -- 80 77 CA 8.2* -- 8.3* 8.2* MG 2.0 -- 2.0 1.9 UA: Normal HCG:N/A ABO/ABO Confirmed: Yes Blood ordered: Yes POS ABS 4units Willing to accept blood: Yes SA Swab: Yes - results: Pending Last Dose of Anticoagulation: none Op Note: Yes with Dr. Rios Pacemaker Check: No Implants: no Consults: ID, GI DM: No Cardiac Surgical prep: Yes SIGNATURE: Myrna Car RN LABOR RELATIONS ANALYST.CONFLICTS ANALYST DATE of SERVICE: 04/19/2019 TIME of SERVICE: 11:16 AM CHECKED BY: Moderate protein-calorie malnutrition 04/12/2019 10/02/2020 Overview: History: Post-op problem. Albumin 2.9. Noted on post-op nutrition screen. Assessment: 75% of meals consumed per I/O. Plan: Follow nutrition recs. Last Assessment & Plan: - nutrition referral Parkinson's disease 03/04/2019 06/11/2019 Overview: History: Takes Sinement at home Assessment: Stable postop Plan: Resume home regimen. Last Assessment & Plan: Assessment: on Sinemet PLAN: - cont home meds Acute kidney injury 03/04/2019 03/06/2019 Last Assessment & Plan: Assessment: - noted to have HILARIO at OSH with Cr of 1.31 on presentation, improved with fluids - likely related to blood loss RESOLVED PLAN: - monitor - avoid nephrotoxins - renally dose meds Acute cystitis with hematuria 03/04/2019 Last Assessment & Plan: Assessment: - abnormal UA at OSH, was given Rocephin at OSH ED - OSH urine cx: presumptive E coli. pansensitive - appears only received one dose of Rocephin PLAN: - complete treatment with Bactrim Elevated troponin 12/06/2018 12/23/2018 Last Assessment & Plan: No chest pain. EKG - NSR, LVH, LAD Plan: repeat EKG and troponin Trend troponin if remains elevated here GI bleed 12/05/2018 12/23/2018 Last Assessment & Plan: Acute blood loss anemia likely from GI bleed. EGD, colonoscopy - no source of bleeding identify. CT angio Abd aorta + Iliofemoral: Enhancing polypoid lesion within the 1st segment of the duodenum concerning for slowly bleeding mass. Plan: type and screen Blood transfusion consent was taken Monitor CBC q8h for now Transfuse if Hb <7 GI consult in am Continue with PPI bid Hold ASA and other NSAID 12/[address] Bonilla's team for transgastric endoscopy + possible resection of remnant/dudenal first part if needed requested cardiology input due to severe as appreciate their input 12/19 OR on 12/21 npo at 1 am on 12/21 12/21 100 ml of periop bleed found a bleeding du and clipped saw in recovery room groggy coming out of anesthesia 2 hours procedure weaned ot 50% vm in hte theatre and brought to pacu on 2 liters out ot floor in an hour ODELL (iron deficiency anemia) 12/05/2018 Last Assessment & Plan: Assessment: most recent labs show normal H/H, but does take Ferrous sulfate Bronchitis 08/08/2018 04/08/2022 Postoperative hypertension 04/26 Overview: History: 04/22/2019: AVR Assessment: Requiring NTG infusion postop Plan: Titrate to maintain MAPs 65-75. Last Assessment & Plan: Home meds: losartan 50 - was on losartan-hctz prior to December admission stable PLAN: - hold in setting of ?GI bleed Depression 12/23/2018 Last Assessment & Plan: No suicidal or homicidal ideation. Stable. Continue with Citalopram documented as of this encounter (statuses as of 09/07/2022) [facility]06-07-2021 History of Past illness Narrative* Problem Noted Date Resolved Date Elective surgery 11/09/2020 04/08/2022 History of UTI 11/06/2020 04/08/2022 Last Assessment & Plan: Assessment: recent, but tx, pre-op WBC normal following UTI Other pancytopenia 01/01/2020 03/27/2020 Transition of care performed with sharing of clinical summary 04/30/2019 03/27/2020 Overview: Indication for Surgery: Prosthetic aortic valve endocarditis Preop LVEF: 75% RVF: Normal Postop LVEF: Normal RVF: Normal Cath: mild non obsx CAD Cards: [facility] EKG: NSR w/ 1st degree Important/Relevant PMH/PSH: 73F from [facility] with GERD, depression, HTN, gastric bypass, PUD with recent GIB, nephrolithiasis, s/p AVR 2002 admitted with prosthetic valve endocarditis c/b severe AI, posterior root abscess, Parkinsons, CKD, overactive bladder Preoperative Hospital Course Admitted 04/10 with severe aortic insufficiency related to endocarditis Airway Difficulty: Grade I - easy Pacing wires: No. A/V pulled 04/30 Chronological list of Surgeries and Major Events 04/22/2019: Redo AVR, MVr_ 04/29/2019: PPM placement A/P of Major Active ICU Problems Cardiac: EP following for pacer dependency with ventricular rate <30 underneath. Continue DDD 80, mA 10, 5. Formal echo 04/26 showed EF 75%, RV normal. NPO, plan for PPM today. Renal:CKD-- SrCr 0.89, downtrending. Avoid nephrotoxic agents, trend fluid balance and electrolytes. 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 Continue ceftriaxone. Transferred to floor 04/29/19 To do or to watch: Access: Right arm PICC placed 04/30. - POD#7. No tubes/wires. AV paced. On room air. - s/p Redo AVR, MVr for IE: Surg path reviewed. Bacterial PCR + Streptococcus mutans. ID following. PICC placed 04/30. CoPat started. Continue Ceftriaxone through 06/03. Post-op echo completed 04/26: EF 75%, trace Mr, trivial-small pericardial effusion. - s/p PPM: Device check completed 04/30. - FVO: Up 3.7kg. Continue lasix - Dispo: 73 yo female from [place], [place]. Daughter can help. SW following. PT/OT rec home PT/OT; HHC for IV antibiotics. Face-to face ordered. Should be ready for dc when accepting facility found. [facility] f/u scheduled. [facility] f/u requested. Discharge Planning: Anticipated Discharge Date: 05/01/2019 if HHC arranged. Barriers to Discharge: Other: accepting home care agency and - In Process Care Management Discharge Needs: Needs Prior to Discharge: Accepting Facility;IV Antibiotics Volume overload 04/30/2019 04/08/2022 Overview: History: Post-op problem. Assessment: up 3.7kg. I/O -400 (not fully recorded). BUN/CR 30/0.9. K 5.2 Plan: Continue IV diuretics. Replace electrolytes prn. Montior labs, I/O. Monitor daily weight. Continue fluid restriction. Mobilize. Discharge planning issues 04/30/20192019 Overview: 73 yo female from [place], [place]. Daughter can help. SW following. PT/OT rec home PT/OT; HHC for IV antibiotics. Face-to face ordered. Should be ready for dc when accepting facility found. Atelectasis 04/26/2019 04/08/2022 Overview: History: Postop Assessment: Bibasilar on am CXR. Good gas exchange on room air. Plan: Continue BPH, OOB daily and Pep. Thrombocytopenia 04/24/2019 04/26/2019 On mechanically assisted ventilation 04/22/2019 04/23/2019 Overview: History: Post op cardiac surgery requiring elective intubation Assessment: Grade I airway Plan: WTE Post-operative pain 04/22/2019 05/01/2019 Overview: History: 04/22/2019: AVR Assessment: Pain control adequate Plan: Continue scheduled Tylenol and prn oxycodone and tramadol. Preop testing 04/19/2019 04/30/2019 Overview: Date of Consult: 04/12 Type of surgery: Redo AVR/root +/- MVr Date preop tests completed:April 19, 2019 Waiting on: Date Surgeon reviewed Patient: 04/18 Patient work up completed: Waiting on: Date of decision by Surgeon: April 19, 2019 Deemed candidate: Yes Date of surgery: 04/22 Reasons for delay: na [facility]ART and [facility] PRE-OP CHECKLIST Surgeon: Dr. Forrest Rios Informed Consent Completed: pending STS Score: RISK SCORES Procedure: Isolated AVR CALCULATE Risk of Mortality: 4.605% Renal Failure: 3.404% Permanent Stroke: 2.380% Prolonged Ventilation: 22.071% DSW Infection: 0.035% Reoperation: 7.729% Morbidity or Mortality: 27.681% Short Length of Stay: 12.366% Long Length of Stay: 20.018% CAD: No Is intended procedure a CABG: No - H & P completed: Yes PA/LAT: Completed CT: Completed MRI: N/A LE US: N/A Cath: Yes - reviewed: Yes EKG: Completed Is patient on Amiodarone? Yes Echo:Completed EF %: 70 PI's: N/A Carotid: Completed Mapping: N/A Dental: Completed PFT's: Completed CBC, Coags, BMP, Mg, Phos Recent Labs 04/19/19 0507 04/18/19 0800 04/18/19 0455 04/17/19 0511 WBC 7.49 8.34 7.77 7.81 HB 7.9* 8.2* 7.3* 8.4* HCT 24.7* 25.7* 23.6* 26.5* PLT 144* 151 137* 155 NA 135* -- 134* 134* K 4.5 -- 4.4 4.4 CHLOR 103 -- 102 102 CO2 20* -- 23 22 BUN 37* -- 34* 27* CREAT 1.05* -- 1.03* 1.01* GLUC 83 -- 80 77 CA 8.2* -- 8.3* 8.2* MG 2.0 -- 2.0 1.9 UA: Normal HCG:N/A ABO/ABO Confirmed: Yes Blood ordered: Yes POS ABS 4units Willing to accept blood: Yes SA Swab: Yes - results: Pending Last Dose of Anticoagulation: none Op Note: Yes with Dr. Rios Pacemaker Check: No Implants: no Consults: ID, GI DM: No Cardiac Surgical prep: Yes SIGNATURE: Myrna Car RN LABOR RELATIONS ANALYST.CONFLICTS ANALYST DATE of SERVICE: 04/19/2019 TIME of SERVICE: 11:16 AM CHECKED BY: Moderate protein-calorie malnutrition 04/12/2019 10/02/2020 Overview: History: Post-op problem. Albumin 2.9. Noted on post-op nutrition screen. Assessment: 75% of meals consumed per I/O. Plan: Follow nutrition recs. Last Assessment & Plan: - nutrition referral Parkinson's disease 03/04/2019 06/11/2019 Overview: History: Takes Sinement at home Assessment: Stable postop Plan: Resume home regimen. Last Assessment & Plan: Assessment: on Sinemet PLAN: - cont home meds Acute kidney injury 03/04/2019 03/06/2019 Last Assessment & Plan: Assessment: - noted to have HILARIO at OSH with Cr of 1.31 on presentation, improved with fluids - likely related to blood loss RESOLVED PLAN: - monitor - avoid nephrotoxins - renally dose meds Acute cystitis with hematuria 03/04/2019 Last Assessment & Plan: Assessment: - abnormal UA at OSH, was given Rocephin at OSH ED - OSH urine cx: presumptive E coli. pansensitive - appears only received one dose of Rocephin PLAN: - complete treatment with Bactrim Elevated troponin 12/06/2018 12/23/2018 Last Assessment & Plan: No chest pain. EKG - NSR, LVH, LAD Plan: repeat EKG and troponin Trend troponin if remains elevated here GI bleed 12/05/2018 12/23/2018 Last Assessment & Plan: Acute blood loss anemia likely from GI bleed. EGD, colonoscopy - no source of bleeding identify. CT angio Abd aorta + Iliofemoral: Enhancing polypoid lesion within the 1st segment of the duodenum concerning for slowly bleeding mass. Plan: type and screen Blood transfusion consent was taken Monitor CBC q8h for now Transfuse if Hb <7 GI consult in am Continue with PPI bid Hold ASA and other NSAID 12/[address] Bonilla's team for transgastric endoscopy + possible resection of remnant/dudenal first part if needed requested cardiology input due to severe as appreciate their input 12/19 OR on 12/21 npo at 1 am on 12/21 12/21 100 ml of periop bleed found a bleeding du and clipped saw in recovery room groggy coming out of anesthesia 2 hours procedure weaned ot 50% vm in hte theatre and brought to pacu on 2 liters out ot floor in an hour ODELL (iron deficiency anemia) 12/05/2018 Last Assessment & Plan: Assessment: most recent labs show normal H/H, but does take Ferrous sulfate Bronchitis 08/08/2018 04/08/2022 Postoperative hypertension 04/26 Overview: History: 04/22/2019: AVR Assessment: Requiring NTG infusion postop Plan: Titrate to maintain MAPs 65-75. Last Assessment & Plan: Home meds: losartan 50 - was on losartan-hctz prior to December admission stable PLAN: - hold in setting of ?GI bleed Depression 12/23/2018 Last Assessment & Plan: No suicidal or homicidal ideation. Stable. Continue with Citalopram documented as of this encounter (statuses as of 10/04/2022) [facility]06-[facility]21 History of Past illness Narrative* Problem Noted Date Resolved Date Elective surgery 11/09/2020 04/08/2022 History of UTI 11/06/2020 04/08/2022 Last Assessment & Plan: Assessment: recent, but tx, pre-op WBC normal following UTI Other pancytopenia 01/01/2020 03/27/2020 Transition of care performed with sharing of clinical summary 04/30/2019 03/27/2020 Overview: Indication for Surgery: Prosthetic aortic valve endocarditis Preop LVEF: 75% RVF: Normal Postop LVEF: Normal RVF: Normal Cath: mild non obsx CAD Cards: [facility] EKG: NSR w/ 1st degree Important/Relevant PMH/PSH: 73F from [facility] with GERD, depression, HTN, gastric bypass, PUD with recent GIB, nephrolithiasis, s/p AVR 2002 admitted with prosthetic valve endocarditis c/b severe AI, posterior root abscess, Parkinsons, CKD, overactive bladder Preoperative Hospital Course Admitted 04/10 with severe aortic insufficiency related to endocarditis Airway Difficulty: Grade I - easy Pacing wires: No. A/V pulled 04/30 Chronological list of Surgeries and Major Events 04/22/2019: Redo AVR, MVr_ 04/29/2019: PPM placement A/P of Major Active ICU Problems Cardiac: EP following for pacer dependency with ventricular rate <30 underneath. Continue DDD 80, mA 10, 5. Formal echo 04/26 showed EF 75%, RV normal. NPO, plan for PPM today. Renal:CKD-- SrCr 0.89, downtrending. Avoid nephrotoxic agents, trend fluid balance and electrolytes. 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 Continue ceftriaxone. Transferred to floor 04/29/19 To do or to watch: Access: Right arm PICC placed 04/30. - POD#7. No tubes/wires. AV paced. On room air. - s/p Redo AVR, MVr for IE: Surg path reviewed. Bacterial PCR + Streptococcus mutans. ID following. PICC placed 04/30. CoPat started. Continue Ceftriaxone through 06/03. Post-op echo completed 04/26: EF 75%, trace Mr, trivial-small pericardial effusion. - s/p PPM: Device check completed 04/30. - FVO: Up 3.7kg. Continue lasix - Dispo: 73 yo female from [place], [place]. Daughter can help. SW following. PT/OT rec home PT/OT; HHC for IV antibiotics. Face-to face ordered. Should be ready for dc when accepting facility found. [facility] f/u scheduled. [facility] f/u requested. Discharge Planning: Anticipated Discharge Date: 05/01/2019 if HHC arranged. Barriers to Discharge: Other: accepting home care agency and - In Process Care Management Discharge Needs: Needs Prior to Discharge: Accepting Facility;IV Antibiotics Volume overload 04/30/2019 04/08/2022 Overview: History: Post-op problem. Assessment: up 3.7kg. I/O -400 (not fully recorded). BUN/CR 30/0.9. K 5.2 Plan: Continue IV diuretics. Replace electrolytes prn. Montior labs, I/O. Monitor daily weight. Continue fluid restriction. Mobilize. Discharge planning issues 04/30/20192019 Overview: 73 yo female from [place], [place]. Daughter can help. SW following. PT/OT rec home PT/OT; [facility] for IV antibiotics. Face-to face ordered. Should be ready for dc when accepting facility found. Atelectasis 04/26/2019 04/08/2022 Overview: History: Postop Assessment: Bibasilar on am CXR. Good gas exchange on room air. Plan: Continue BPH, OOB daily and Pep. Thrombocytopenia 04/24/2019 04/26/2019 On mechanically assisted ventilation 04/22/2019 04/23/2019 Overview: History: Post op cardiac surgery requiring elective intubation Assessment: Grade I airway Plan: WTE Post-operative pain 04/22/2019 05/01/2019 Overview: History: 04/22/2019: AVR Assessment: Pain control adequate Plan: Continue scheduled Tylenol and prn oxycodone and tramadol. Preop testing 04/19/2019 04/30/2019 Overview: Date of Consult: 04/12 Type of surgery: Redo AVR/root +/- MVr Date preop tests completed:April 19, 2019 Waiting on: Date Surgeon reviewed Patient: 04/18 Patient work up completed: Waiting on: Date of decision by Surgeon: April 19, 2019 Deemed candidate: Yes Date of surgery: 04/22 Reasons for delay: na [facility]ART and [facility]ASCULAR INSTITUTE PRE-OP CHECKLIST Surgeon: Dr. Forrest Rios Informed Consent Completed: pending STS Score: RISK SCORES Procedure: Isolated AVR CALCULATE Risk of Mortality: 4.605% Renal Failure: 3.404% Permanent Stroke: 2.380% Prolonged Ventilation: 22.071% DSW Infection: 0.035% Reoperation: 7.729% Morbidity or Mortality: 27.681% Short Length of Stay: 12.366% Long Length of Stay: 20.018% CAD: No Is intended procedure a CABG: No - H & P completed: Yes PA/LAT: Completed CT: Completed MRI: N/A LE US: N/A Cath: Yes - reviewed: Yes EKG: Completed Is patient on Amiodarone? Yes Echo:Completed EF %: 70 PI's: N/A Carotid: Completed Mapping: N/A Dental: Completed PFT's: Completed CBC, Coags, BMP, Mg, Phos Recent Labs 04/19/19 0507 04/18/19 0800 04/18/19 0455 04/17/19 0511 WBC 7.49 8.34 7.77 7.81 HB 7.9* 8.2* 7.3* 8.4* HCT 24.7* 25.7* 23.6* 26.5* PLT 144* 151 137* 155 NA 135* -- 134* 134* K 4.5 -- 4.4 4.4 CHLOR 103 -- 102 102 CO2 20* -- 23 22 BUN 37* -- 34* 27* CREAT 1.05* -- 1.03* 1.01* GLUC 83 -- 80 77 CA 8.2* -- 8.3* 8.2* MG 2.0 -- 2.0 1.9 UA: Normal HCG:N/A ABO/ABO Confirmed: Yes Blood ordered: Yes POS ABS 4units Willing to accept blood: Yes SA Swab: Yes - results: Pending Last Dose of Anticoagulation: none Op Note: Yes with Dr. Rios Pacemaker Check: No Implants: no Consults: ID, GI DM: No Cardiac Surgical prep: Yes SIGNATURE: Myrna Car RN APRN.CONFLICTS ANALYST DATE of SERVICE: 04/19/2019 TIME of SERVICE: 11:16 AM CHECKED BY: Moderate protein-calorie malnutrition 04/12/2019 10/02/2020 Overview: History: Post-op problem. Albumin 2.9. Noted on post-op nutrition screen. Assessment: 75% of meals consumed per I/O. Plan: Follow nutrition recs. Last Assessment & Plan: - nutrition referral Parkinson's disease 03/04/2019 06/11/2019 Overview: History: Takes Sinement at home Assessment: Stable postop Plan: Resume home regimen. Last Assessment & Plan: Assessment: on Sinemet PLAN: - cont home meds Acute kidney injury 03/04/2019 03/06/2019 Last Assessment & Plan: Assessment: - noted to have HILARIO at OSH with Cr of 1.31 on presentation, improved with fluids - likely related to blood loss RESOLVED PLAN: - monitor - avoid nephrotoxins - renally dose meds Acute cystitis with hematuria 03/04/2019 Last Assessment & Plan: Assessment: - abnormal UA at OSH, was given Rocephin at OSH ED - OSH urine cx: presumptive E coli. pansensitive - appears only received one dose of Rocephin PLAN: - complete treatment with Bactrim Elevated troponin 12/06/2018 12/23/2018 Last Assessment & Plan: No chest pain. EKG - NSR, LVH, LAD Plan: repeat EKG and troponin Trend troponin if remains elevated here GI bleed 12/05/2018 12/23/2018 Last Assessment & Plan: Acute blood loss anemia likely from GI bleed. EGD, colonoscopy - no source of bleeding identify. CT angio Abd aorta + Iliofemoral: Enhancing polypoid lesion within the 1st segment of the duodenum concerning for slowly bleeding mass. Plan: type and screen Blood transfusion consent was taken Monitor CBC q8h for now Transfuse if Hb <7 GI consult in am Continue with PPI bid Hold ASA and other NSAID 12/[address] Bonilla's team for transgastric endoscopy + possible resection of remnant/dudenal first part if needed requested cardiology input due to severe as appreciate their input 12/19 OR on 12/21 npo at 1 am on 12/21 12/21 100 ml of periop bleed found a bleeding du and clipped saw in recovery room groggy coming out of anesthesia 2 hours procedure weaned ot 50% vm in hte theatre and brought to pacu on 2 liters out ot floor in an hour ODELL (iron deficiency anemia) 12/05/2018 Last Assessment & Plan: Assessment: most recent labs show normal H/H, but does take Ferrous sulfate Bronchitis 08/08/2018 04/08/2022 Postoperative hypertension 04/26 Overview: History: 04/22/2019: AVR Assessment: Requiring NTG infusion postop Plan: Titrate to maintain MAPs 65-75. Last Assessment & Plan: Home meds: losartan 50 - was on losartan-hctz prior to December admission stable PLAN: - hold in setting of ?GI bleed Depression 12/23/2018 Last Assessment & Plan: No suicidal or homicidal ideation. Stable. Continue with Citalopram documented as of this encounter (statuses as of 10/05/2022) [facility]06-07-2021 History of Past illness Narrative* Problem Noted Date Resolved Date Elective surgery 11/09/2020 04/08/2022 History of UTI 11/06/2020 04/08/2022 Last Assessment & Plan: Assessment: recent, but tx, pre-op WBC normal following UTI Other pancytopenia 01/01/2020 03/27/2020 Transition of care performed with sharing of clinical summary 04/30/2019 03/27/2020 Overview: Indication for Surgery: Prosthetic aortic valve endocarditis Preop LVEF: 75% RVF: Normal Postop LVEF: Normal RVF: Normal Cath: mild non obsx CAD Cards: Papito Antunez EKG: NSR w/ 1st degree Important/Relevant PMH/PSH: 73F from [facility] with GERD, depression, HTN, gastric bypass, PUD with recent GIB, nephrolithiasis, s/p AVR 2002 admitted with prosthetic valve endocarditis c/b severe AI, posterior root abscess, Parkinsons, CKD, overactive bladder Preoperative Hospital Course Admitted 04/10 with severe aortic insufficiency related to endocarditis Airway Difficulty: Grade I - easy Pacing wires: No. A/V pulled 04/30 Chronological list of Surgeries and Major Events 04/22/2019: Redo AVR, MVr_ 04/29/2019: PPM placement A/P of Major Active ICU Problems Cardiac: EP following for pacer dependency with ventricular rate <30 underneath. Continue DDD 80, mA 10, 5. Formal echo 04/26 showed EF 75%, RV normal. NPO, plan for PPM today. Renal:CKD-- SrCr 0.89, downtrending. Avoid nephrotoxic agents, trend fluid balance and electrolytes. 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 Continue ceftriaxone. Transferred to floor 04/29/19 To do or to watch: Access: Right arm PICC placed 04/30. - POD#7. No tubes/wires. AV paced. On room air. - s/p Redo AVR, MVr for IE: Surg path reviewed. Bacterial PCR + Streptococcus mutans. ID following. PICC placed 04/30. CoPat started. Continue Ceftriaxone through 06/03. Post-op echo completed 04/26: EF 75%, trace Mr, trivial-small pericardial effusion. - s/p PPM: Device check completed 04/30. - FVO: Up 3.7kg. Continue lasix - Dispo: 73 yo female from [place], [place]. Daughter can help. SW following. PT/OT rec home PT/OT; HHC for IV antibiotics. Face-to face ordered. Should be ready for dc when accepting facility found. [facility] f/u scheduled. [facility] OPD f/u requested. Discharge Planning: Anticipated Discharge Date: 05/01/2019 if HHC arranged. Barriers to Discharge: Other: accepting home care agency and - In Process Care Management Discharge Needs: Needs Prior to Discharge: Accepting Facility;IV Antibiotics Volume overload 04/30/2019 04/08/2022 Overview: History: Post-op problem. Assessment: up 3.7kg. I/O -400 (not fully recorded). BUN/CR 30/0.9. K 5.2 Plan: Continue IV diuretics. Replace electrolytes prn. Montior labs, I/O. Monitor daily weight. Continue fluid restriction. Mobilize. Discharge planning issues 04/30/20192019 Overview: 73 yo female from [place], [place]. Daughter can help. SW following. PT/OT rec home PT/OT; C for IV antibiotics. Face-to face ordered. Should be ready for dc when accepting facility found. Atelectasis 04/26/2019 04/08/2022 Overview: History: Postop Assessment: Bibasilar on am CXR. Good gas exchange on room air. Plan: Continue BPH, OOB daily and Pep. Thrombocytopenia 04/24/2019 04/26/2019 On mechanically assisted ventilation 04/22/2019 04/23/2019 Overview: History: Post op cardiac surgery requiring elective intubation Assessment: Grade I airway Plan: WTE Post-operative pain 04/22/2019 05/01/2019 Overview: History: 04/22/2019: AVR Assessment: Pain control adequate Plan: Continue scheduled Tylenol and prn oxycodone and tramadol. Preop testing 04/19/2019 04/30/2019 Overview: Date of Consult: 04/12 Type of surgery: Redo AVR/root +/- MVr Date preop tests completed:April 19, 2019 Waiting on: Date Surgeon reviewed Patient: 04/18 Patient work up completed: Waiting on: Date of decision by Surgeon: April 19, 2019 Deemed candidate: Yes Date of surgery: 04/22 Reasons for delay: na [facility] and [facility] PRE-OP CHECKLIST Surgeon: Dr. Forrest Rios Informed Consent Completed: pending STS Score: RISK SCORES Procedure: Isolated AVR CALCULATE Risk of Mortality: 4.605% Renal Failure: 3.404% Permanent Stroke: 2.380% Prolonged Ventilation: 22.071% DSW Infection: 0.035% Reoperation: 7.729% Morbidity or Mortality: 27.681% Short Length of Stay: 12.366% Long Length of Stay: 20.018% CAD: No Is intended procedure a CABG: No - H & P completed: Yes PA/LAT: Completed CT: Completed MRI: N/A LE US: N/A Cath: Yes - reviewed: Yes EKG: Completed Is patient on Amiodarone? Yes Echo:Completed EF %: 70 PI's: N/A Carotid: Completed Mapping: N/A Dental: Completed PFT's: Completed CBC, Coags, BMP, Mg, Phos Recent Labs 04/19/19 0507 04/18/19 0800 04/18/19 0455 04/17/19 0511 WBC 7.49 8.34 7.77 7.81 HB 7.9* 8.2* 7.3* 8.4* HCT 24.7* 25.7* 23.6* 26.5* PLT 144* 151 137* 155 NA 135* -- 134* 134* K 4.5 -- 4.4 4.4 CHLOR 103 -- 102 102 CO2 20* -- 23 22 BUN 37* -- 34* 27* CREAT 1.05* -- 1.03* 1.01* GLUC 83 -- 80 77 CA 8.2* -- 8.3* 8.2* MG 2.0 -- 2.0 1.9 UA: Normal HCG:N/A ABO/ABO Confirmed: Yes Blood ordered: Yes POS ABS 4units Willing to accept blood: Yes SA Swab: Yes - results: Pending Last Dose of Anticoagulation: none Op Note: Yes with Dr. Rios Pacemaker Check: No Implants: no Consults: ID, GI DM: No Cardiac Surgical prep: Yes SIGNATURE: Myrna Car RN LABOR RELATIONS ANALYST.CONFLICTS ANALYST DATE of SERVICE: 04/19/2019 TIME of SERVICE: 11:16 AM CHECKED BY: Moderate protein-calorie malnutrition 04/12/2019 10/02/2020 Overview: History: Post-op problem. Albumin 2.9. Noted on post-op nutrition screen. Assessment: 75% of meals consumed per I/O. Plan: Follow nutrition recs. Last Assessment & Plan: - nutrition referral Parkinson's disease 03/04/2019 06/11/2019 Overview: History: Takes Sinement at home Assessment: Stable postop Plan: Resume home regimen. Last Assessment & Plan: Assessment: on Sinemet PLAN: - cont home meds Acute kidney injury 03/04/2019 03/06/2019 Last Assessment & Plan: Assessment: - noted to have HILARIO at OSH with Cr of 1.31 on presentation, improved with fluids - likely related to blood loss RESOLVED PLAN: - monitor - avoid nephrotoxins - renally dose meds Acute cystitis with hematuria 03/04/2019 Last Assessment & Plan: Assessment: - abnormal UA at OSH, was given Rocephin at OSH ED - OSH urine cx: presumptive E coli. pansensitive - appears only received one dose of Rocephin PLAN: - complete treatment with Bactrim Elevated troponin 12/06/2018 12/23/2018 Last Assessment & Plan: No chest pain. EKG - NSR, LVH, LAD Plan: repeat EKG and troponin Trend troponin if remains elevated here GI bleed 12/05/2018 12/23/2018 Last Assessment & Plan: Acute blood loss anemia likely from GI bleed. EGD, colonoscopy - no source of bleeding identify. CT angio Abd aorta + Iliofemoral: Enhancing polypoid lesion within the 1st segment of the duodenum concerning for slowly bleeding mass. Plan: type and screen Blood transfusion consent was taken Monitor CBC q8h for now Transfuse if Hb <7 GI consult in am Continue with PPI bid Hold ASA and other NSAID 12/[address] Bonilla's team for transgastric endoscopy + possible resection of remnant/dudenal first part if needed requested cardiology input due to severe as appreciate their input 12/19 OR on 12/21 npo at 1 am on 12/21 12/21 100 ml of periop bleed found a bleeding du and clipped saw in recovery room groggy coming out of anesthesia 2 hours procedure weaned ot 50% vm in hte theatre and brought to pacu on 2 liters out ot floor in an hour ODELL (iron deficiency anemia) 12/05/2018 Last Assessment & Plan: Assessment: most recent labs show normal H/H, but does take Ferrous sulfate Bronchitis 08/08/2018 04/08/2022 Postoperative hypertension 04/26 Overview: History: 04/22/2019: AVR Assessment: Requiring NTG infusion postop Plan: Titrate to maintain MAPs 65-75. Last Assessment & Plan: Home meds: losartan 50 - was on losartan-hctz prior to December admission stable PLAN: - hold in setting of ?GI bleed Depression 12/23/2018 Last Assessment & Plan: No suicidal or homicidal ideation. Stable. Continue with Citalopram documented as of this encounter (statuses as of 11/02/2022) [facility]06-07-2021 History of Past illness Narrative* Problem Noted Date Resolved Date Elective surgery 11/09/2020 04/08/2022 History of UTI 11/06/2020 04/08/2022 Last Assessment & Plan: Assessment: recent, but tx, pre-op WBC normal following UTI Other pancytopenia 01/01/2020 03/27/2020 Transition of care performed with sharing of clinical summary 04/30/2019 03/27/2020 Overview: Indication for Surgery: Prosthetic aortic valve endocarditis Preop LVEF: 75% RVF: Normal Postop LVEF: Normal RVF: Normal Cath: mild non obsx CAD [facility] E[facility]: NSR w/ 1st degree Important/Relevant PMH/PSH: 73F from [place] with GERD, depression, HTN, gastric bypass, PUD with recent GIB, nephrolithiasis, s/p AVR 2002 admitted with prosthetic valve endocarditis c/b severe AI, posterior root abscess, Parkinsons, CKD, overactive bladder Preoperative Hospital Course Admitted 04/10 with severe aortic insufficiency related to endocarditis Airway Difficulty: Grade I - easy Pacing wires: No. A/V pulled 04/30 Chronological list of Surgeries and Major Events 04/22/2019: Redo AVR, MVr_ 04/29/2019: PPM placement A/P of Major Active ICU Problems Cardiac: EP following for pacer dependency with ventricular rate <30 underneath. Continue DDD 80, mA 10, 5. Formal echo 04/26 showed EF 75%, RV normal. NPO, plan for PPM today. Renal:CKD-- SrCr 0.89, downtrending. Avoid nephrotoxic agents, trend fluid balance and electrolytes. 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 Continue ceftriaxone. Transferred to floor 04/29/19 To do or to watch: Access: Right arm PICC placed 04/30. - POD#7. No tubes/wires. AV paced. On room air. - s/p Redo AVR, MVr for IE: Surg path reviewed. Bacterial PCR + Streptococcus mutans. ID following. PICC placed 04/30. CoPat started. Continue Ceftriaxone through 06/03. Post-op echo completed 04/26: EF 75%, trace Mr, trivial-small pericardial effusion. - s/p PPM: Device check completed 04/30. - FVO: Up 3.7kg. Continue lasix - Dispo: 73 yo female from [place], [place]. Daughter can help. SW following. PT/OT rec home PT/OT; HHC for IV antibiotics. Face-to face ordered. Should be ready for dc when accepting facility found. [facility] f/u scheduled. [facility] OPD f/u requested. Discharge Planning: Anticipated Discharge Date: 05/01/2019 if HHC arranged. Barriers to Discharge: Other: accepting home care agency and - In Process Care Management Discharge Needs: Needs Prior to Discharge: Accepting Facility;IV Antibiotics Volume overload 04/30/2019 04/08/2022 Overview: History: Post-op problem. Assessment: up 3.7kg. I/O -400 (not fully recorded). BUN/CR 30/0.9. K 5.2 Plan: Continue IV diuretics. Replace electrolytes prn. Montior labs, I/O. Monitor daily weight. Continue fluid restriction. Mobilize. Discharge planning issues 04/30/20192019 Overview: 73 yo female from [place], [place]. Daughter can help. SW following. PT/OT rec home PT/OT; HHC for IV antibiotics. Face-to face ordered. Should be ready for dc when accepting facility found. Atelectasis 04/26/2019 04/08/2022 Overview: History: Postop Assessment: Bibasilar on am CXR. Good gas exchange on room air. Plan: Continue BPH, OOB daily and Pep. Thrombocytopenia 04/24/2019 04/26/2019 On mechanically assisted ventilation 04/22/2019 04/23/2019 Overview: History: Post op cardiac surgery requiring elective intubation Assessment: Grade I airway Plan: WTE Post-operative pain 04/22/2019 05/01/2019 Overview: History: 04/22/2019: AVR Assessment: Pain control adequate Plan: Continue scheduled Tylenol and prn oxycodone and tramadol. Preop testing 04/19/2019 04/30/2019 Overview: Date of Consult: 04/12 Type of surgery: Redo AVR/root +/- MVr Date preop tests completed:April 19, 2019 Waiting on: Date Surgeon reviewed Patient: 04/18 Patient work up completed: Waiting on: Date of decision by Surgeon: April 19, 2019 Deemed candidate: Yes Date of surgery: 04/22 Reasons for delay: na [facility] and [facility] PRE-OP CHECKLIST Surgeon: Dr. Forrest Rios Informed Consent Completed: pending STS Score: RISK SCORES Procedure: Isolated AVR CALCULATE Risk of Mortality: 4.605% Renal Failure: 3.404% Permanent Stroke: 2.380% Prolonged Ventilation: 22.071% DSW Infection: 0.035% Reoperation: 7.729% Morbidity or Mortality: 27.681% Short Length of Stay: 12.366% Long Length of Stay: 20.018% CAD: No Is intended procedure a CABG: No - H & P completed: Yes PA/LAT: Completed CT: Completed MRI: N/A LE US: N/A Cath: Yes - reviewed: Yes EKG: Completed Is patient on Amiodarone? Yes Echo:Completed EF %: 70 PI's: N/A Carotid: Completed Mapping: N/A Dental: Completed PFT's: Completed CBC, Coags, BMP, Mg, Phos Recent Labs 04/19/19 0507 04/18/19 0800 04/18/19 0455 04/17/19 0511 WBC 7.49 8.34 7.77 7.81 HB 7.9* 8.2* 7.3* 8.4* HCT 24.7* 25.7* 23.6* 26.5* PLT 144* 151 137* 155 NA 135* -- 134* 134* K 4.5 -- 4.4 4.4 CHLOR 103 -- 102 102 CO2 20* -- 23 22 BUN 37* -- 34* 27* CREAT 1.05* -- 1.03* 1.01* GLUC 83 -- 80 77 CA 8.2* -- 8.3* 8.2* MG 2.0 -- 2.0 1.9 UA: Normal HCG:N/A ABO/ABO Confirmed: Yes Blood ordered: Yes POS ABS 4units Willing to accept blood: Yes SA Swab: Yes - results: Pending Last Dose of Anticoagulation: none Op Note: Yes with Dr. Rios Pacemaker Check: No Implants: no Consults: ID, GI DM: No Cardiac Surgical prep: Yes SIGNATURE: Myrna Car RN LABOR RELATIONS ANALYST.CONFLICTS ANALYST DATE of SERVICE: 04/19/2019 TIME of SERVICE: 11:16 AM CHECKED BY: Moderate protein-calorie malnutrition 04/12/2019 10/02/2020 Overview: History: Post-op problem. Albumin 2.9. Noted on post-op nutrition screen. Assessment: 75% of meals consumed per I/O. Plan: Follow nutrition recs. Last Assessment & Plan: - nutrition referral Parkinson's disease 03/04/2019 06/11/2019 Overview: History: Takes Sinement at home Assessment: Stable postop Plan: Resume home regimen. Last Assessment & Plan: Assessment: on Sinemet PLAN: - cont home meds Acute kidney injury 03/04/2019 03/06/2019 Last Assessment & Plan: Assessment: - noted to have HILARIO at OSH with Cr of 1.31 on presentation, improved with fluids - likely related to blood loss RESOLVED PLAN: - monitor - avoid nephrotoxins - renally dose meds Acute cystitis with hematuria 03/04/2019 Last Assessment & Plan: Assessment: - abnormal UA at OSH, was given Rocephin at OSH ED - OSH urine cx: presumptive E coli. pansensitive - appears only received one dose of Rocephin PLAN: - complete treatment with Bactrim Elevated troponin 12/06/2018 12/23/2018 Last Assessment & Plan: No chest pain. EKG - NSR, LVH, LAD Plan: repeat EKG and troponin Trend troponin if remains elevated here GI bleed 12/05/2018 12/23/2018 Last Assessment & Plan: Acute blood loss anemia likely from GI bleed. EGD, colonoscopy - no source of bleeding identify. CT angio Abd aorta + Iliofemoral: Enhancing polypoid lesion within the 1st segment of the duodenum concerning for slowly bleeding mass. Plan: type and screen Blood transfusion consent was taken Monitor CBC q8h for now Transfuse if Hb <7 GI consult in am Continue with PPI bid Hold ASA and other NSAID 12/[address] Bonilla's team for transgastric endoscopy + possible resection of remnant/dudenal first part if needed requested cardiology input due to severe as appreciate their input 12/19 OR on 12/21 npo at 1 am on 12/21 12/21 100 ml of periop bleed found a bleeding du and clipped saw in recovery room groggy coming out of anesthesia 2 hours procedure weaned ot 50% vm in hte theatre and brought to pacu on 2 liters out ot floor in an hour ODELL (iron deficiency anemia) 12/05/2018 Last Assessment & Plan: Assessment: most recent labs show normal H/H, but does take Ferrous sulfate Bronchitis 08/08/2018 04/08/2022 Postoperative hypertension 04/26 Overview: History: 04/22/2019: AVR Assessment: Requiring NTG infusion postop Plan: Titrate to maintain MAPs 65-75. Last Assessment & Plan: Home meds: losartan 50 - was on losartan-hctz prior to December admission stable PLAN: - hold in setting of ?GI bleed Depression 12/23/2018 Last Assessment & Plan: No suicidal or homicidal ideation. Stable. Continue with Citalopram documented as of this encounter (statuses as of 11/05/2022) [facility]21 History of Past illness Narrative* Problem Noted Date Resolved Date Elective surgery 11/09/2020 04/08/2022 History of UTI 11/06/2020 04/08/2022 Last Assessment & Plan: Assessment: recent, but tx, pre-op WBC normal following UTI Other pancytopenia 01/01/2020 03/27/2020 Transition of care performed with sharing of clinical summary 04/30/2019 03/27/2020 Overview: Indication for Surgery: Prosthetic aortic valve endocarditis Preop LVEF: 75% RVF: Normal Postop LVEF: Normal RVF: Normal Cath: mild non obsx CAD Cards: [facility] Antunez EKG: NSR w/ 1st degree Important/Relevant PMH/PSH: 73F from [facility] with GERD, depression, HTN, gastric bypass, PUD with recent GIB, nephrolithiasis, s/p AVR 2002 admitted with prosthetic valve endocarditis c/b severe AI, posterior root abscess, Parkinsons, CKD, overactive bladder Preoperative Hospital Course Admitted 04/10 with severe aortic insufficiency related to endocarditis Airway Difficulty: Grade I - easy Pacing wires: No. A/V pulled 04/30 Chronological list of Surgeries and Major Events 04/22/2019: Redo AVR, MVr_ 04/29/2019: PPM placement A/P of Major Active ICU Problems Cardiac: EP following for pacer dependency with ventricular rate <30 underneath. Continue DDD 80, mA 10, 5. Formal echo 04/26 showed EF 75%, RV normal. NPO, plan for PPM today. Renal:CKD-- SrCr 0.89, downtrending. Avoid nephrotoxic agents, trend fluid balance and electrolytes. 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 Continue ceftriaxone. Transferred to floor 04/29/19 To do or to watch: Access: Right arm PICC placed 04/30. - POD#7. No tubes/wires. AV paced. On room air. - s/p Redo AVR, MVr for IE: Surg path reviewed. Bacterial PCR + Streptococcus mutans. ID following. PICC placed 04/30. CoPat started. Continue Ceftriaxone through 06/03. Post-op echo completed 04/26: EF 75%, trace Mr, trivial-small pericardial effusion. - s/p PPM: Device check completed 04/30. - FVO: Up 3.7kg. Continue lasix - Dispo: 73 yo female from [place], [place]. Daughter can help. SW following. PT/OT rec home PT/OT; HHC for IV antibiotics. Face-to face ordered. Should be ready for dc when accepting facility found. [facility] f/u scheduled. [facility] f/u requested. Discharge Planning: Anticipated Discharge Date: 05/01/2019 if HHC arranged. Barriers to Discharge: Other: accepting home care agency and - In Process Care Management Discharge Needs: Needs Prior to Discharge: Accepting Facility;IV Antibiotics Volume overload 04/30/2019 04/08/2022 Overview: History: Post-op problem. Assessment: up 3.7kg. I/O -400 (not fully recorded). BUN/CR 30/0.9. K 5.2 Plan: Continue IV diuretics. Replace electrolytes prn. Montior labs, I/O. Monitor daily weight. Continue fluid restriction. Mobilize. Discharge planning issues 04/30/20192019 Overview: 73 yo female from [place], [place]. Daughter can help. SW following. PT/OT rec home PT/OT; HHC for IV antibiotics. Face-to face ordered. Should be ready for dc when accepting facility found. Atelectasis 04/26/2019 04/08/2022 Overview: History: Postop Assessment: Bibasilar on am CXR. Good gas exchange on room air. Plan: Continue BPH, OOB daily and Pep. Thrombocytopenia 04/24/2019 04/26/2019 On mechanically assisted ventilation 04/22/2019 04/23/2019 Overview: History: Post op cardiac surgery requiring elective intubation Assessment: Grade I airway Plan: WTE Post-operative pain 04/22/2019 05/01/2019 Overview: History: 04/22/2019: AVR Assessment: Pain control adequate Plan: Continue scheduled Tylenol and prn oxycodone and tramadol. Preop testing 04/19/2019 04/30/2019 Overview: Date of Consult: 04/12 Type of surgery: Redo AVR/root +/- MVr Date preop tests completed:April 19, 2019 Waiting on: Date Surgeon reviewed Patient: 04/18 Patient work up completed: Waiting on: Date of decision by Surgeon: April 19, 2019 Deemed candidate: Yes Date of surgery: 04/22 Reasons for delay: na [facility]ART and [facility]STITUTE PRE-OP CHECKLIST Surgeon: Dr. Forrest Rios Informed Consent Completed: pending STS Score: RISK SCORES Procedure: Isolated AVR CALCULATE Risk of Mortality: 4.605% Renal Failure: 3.404% Permanent Stroke: 2.380% Prolonged Ventilation: 22.071% DSW Infection: 0.035% Reoperation: 7.729% Morbidity or Mortality: 27.681% Short Length of Stay: 12.366% Long Length of Stay: 20.018% CAD: No Is intended procedure a CABG: No - H & P completed: Yes PA/LAT: Completed CT: Completed MRI: N/A LE US: N/A Cath: Yes - reviewed: Yes EKG: Completed Is patient on Amiodarone? Yes Echo:Completed EF %: 70 PI's: N/A Carotid: Completed Mapping: N/A Dental: Completed PFT's: Completed CBC, Coags, BMP, Mg, Phos Recent Labs 04/19/19 0507 04/18/19 0800 04/18/19 0455 04/17/19 0511 WBC 7.49 8.34 7.77 7.81 HB 7.9* 8.2* 7.3* 8.4* HCT 24.7* 25.7* 23.6* 26.5* PLT 144* 151 137* 155 NA 135* -- 134* 134* K 4.5 -- 4.4 4.4 CHLOR 103 -- 102 102 CO2 20* -- 23 22 BUN 37* -- 34* 27* CREAT 1.05* -- 1.03* 1.01* GLUC 83 -- 80 77 CA 8.2* -- 8.3* 8.2* MG 2.0 -- 2.0 1.9 UA: Normal HCG:N/A ABO/ABO Confirmed: Yes Blood ordered: Yes POS ABS 4units Willing to accept blood: Yes SA Swab: Yes - results: Pending Last Dose of Anticoagulation: none Op Note: Yes with Dr. Rios Pacemaker Check: No Implants: no Consults: ID, GI DM: No Cardiac Surgical prep: Yes SIGNATURE: Myrna Car RN LABOR RELATIONS ANALYST.CONFLICTS ANALYST DATE of SERVICE: 04/19/2019 TIME of SERVICE: 11:16 AM CHECKED BY: Moderate protein-calorie malnutrition 04/12/2019 10/02/2020 Overview: History: Post-op problem. Albumin 2.9. Noted on post-op nutrition screen. Assessment: 75% of meals consumed per I/O. Plan: Follow nutrition recs. Last Assessment & Plan: - nutrition referral Parkinson's disease 03/04/2019 06/11/2019 Overview: History: Takes Sinement at home Assessment: Stable postop Plan: Resume home regimen. Last Assessment & Plan: Assessment: on Sinemet PLAN: - cont home meds Acute kidney injury 03/04/2019 03/06/2019 Last Assessment & Plan: Assessment: - noted to have HILARIO at OSH with Cr of 1.31 on presentation, improved with fluids - likely related to blood loss RESOLVED PLAN: - monitor - avoid nephrotoxins - renally dose meds Acute cystitis with hematuria 03/04/2019 Last Assessment & Plan: Assessment: - abnormal UA at OSH, was given Rocephin at OSH ED - OSH urine cx: presumptive E coli. pansensitive - appears only received one dose of Rocephin PLAN: - complete treatment with Bactrim Elevated troponin 12/06/2018 12/23/2018 Last Assessment & Plan: No chest pain. EKG - NSR, LVH, LAD Plan: repeat EKG and troponin Trend troponin if remains elevated here GI bleed 12/05/2018 12/23/2018 Last Assessment & Plan: Acute blood loss anemia likely from GI bleed. EGD, colonoscopy - no source of bleeding identify. CT angio Abd aorta + Iliofemoral: Enhancing polypoid lesion within the 1st segment of the duodenum concerning for slowly bleeding mass. Plan: type and screen Blood transfusion consent was taken Monitor CBC q8h for now Transfuse if Hb <7 GI consult in am Continue with PPI bid Hold ASA and other NSAID 12/[address] Bonilla's team for transgastric endoscopy + possible resection of remnant/dudenal first part if needed requested cardiology input due to severe as appreciate their input 12/19 OR on 12/21 npo at 1 am on 12/21 12/21 100 ml of periop bleed found a bleeding du and clipped saw in recovery room groggy coming out of anesthesia 2 hours procedure weaned ot 50% vm in hte theatre and brought to pacu on 2 liters out ot floor in an hour ODELL (iron deficiency anemia) 12/05/2018 Last Assessment & Plan: Assessment: most recent labs show normal H/H, but does take Ferrous sulfate Bronchitis 08/08/2018 04/08/2022 Postoperative hypertension 04/26 Overview: History: 04/22/2019: AVR Assessment: Requiring NTG infusion postop Plan: Titrate to maintain MAPs 65-75. Last Assessment & Plan: Home meds: losartan 50 - was on losartan-hctz prior to December admission stable PLAN: - hold in setting of ?GI bleed Depression 12/23/2018 Last Assessment & Plan: No suicidal or homicidal ideation. Stable. Continue with Citalopram documented as of this encounter (statuses as of 11/24/2022) [facility]06-07-2021 History of Past illness Narrative* Problem Noted Date Diagnosed Date Resolved Date Elective surgery 11/09/2020 04/08/2022 History of UTI 11/06/2020 04/08/2022 Last Assessment & Plan: Assessment: recent, but tx, pre-op WBC normal following UTI Other pancytopenia 01/01/2020 0 Transition of care performed with sharing of clinical summary 04/30/2019 03/27/2020 Overview: Indication for Surgery: Prosthetic aortic valve endocarditis Preop LVEF: 75% RVF: Normal Postop LVEF: Normal RVF: Normal Cath: mild non obsx CAD Cards: [facility] EKG: NSR w/ 1st degree Important/Relevant PMH/PSH: 73F from [facility] with GERD, depression, HTN, gastric bypass, PUD with recent GIB, nephrolithiasis, s/p AVR 2002 admitted with prosthetic valve endocarditis c/b severe AI, posterior root abscess, Parkinsons, CKD, overactive bladder Preoperative Hospital Course Admitted 04/10 with severe aortic insufficiency related to endocarditis Airway Difficulty: Grade I - easy Pacing wires: No. A/V pulled 04/30 Chronological list of Surgeries and Major Events 04/22/2019: Redo AVR, MVr_ 04/29/2019: PPM placement A/P of Major Active ICU Problems Cardiac: EP following for pacer dependency with ventricular rate <30 underneath. Continue DDD 80, mA 10, 5. Formal echo 04/26 showed EF 75%, RV normal. NPO, plan for PPM today. Renal:CKD-- SrCr 0.89, downtrending. Avoid nephrotoxic agents, trend fluid balance and electrolytes. 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 Continue ceftriaxone. Transferred to floor 04/29/19 To do or to watch: Access: Right arm PICC placed 04/30. - POD#7. No tubes/wires. AV paced. On room air. - s/p Redo AVR, MVr for IE: Surg path reviewed. Bacterial PCR + Streptococcus mutans. ID following. PICC placed 04/30. CoPat started. Continue Ceftriaxone through 06/03. Post-op echo completed 04/26: EF 75%, trace Mr, trivial-small pericardial effusion. - s/p PPM: Device check completed 04/30. - FVO: Up 3.7kg. Continue lasix - Dispo: 73 yo female from [place], [place]. Daughter can help. SW following. PT/OT rec home PT/OT; HHC for IV antibiotics. Face-to face ordered. Should be ready for dc when accepting facility found. [facility] f/u scheduled. [facility] f/u requested. Discharge Planning: Anticipated Discharge Date: 05/01/2019 if HHC arranged. Barriers to Discharge: Other: accepting home care agency and - In Process Care Management Discharge Needs: Needs Prior to Discharge: Accepting Facility;IV Antibiotics Volume overload 04/30/2019 04/08/2022 Overview: History: Post-op problem. Assessment: up 3.7kg. I/O -400 (not fully recorded). BUN/CR 30/0.9. K 5.2 Plan: Continue IV diuretics. Replace electrolytes prn. Montior labs, I/O. Monitor daily weight. Continue fluid restriction. Mobilize. Discharge planning issues 04/30/2019 Overview: 73 yo female from [place], [place]. Daughter can help. SW following. PT/OT rec home PT/OT; HHC for IV antibiotics. Face-to face ordered. Should be ready for dc when accepting facility found. Atelectasis 04/26/2019 04/08/2022 Overview: History: Postop Assessment: Bibasilar on am CXR. Good gas exchange on room air. Plan: Continue BPH, OOB daily and Pep. Thrombocytopenia 04/24/2019 04/26/2019 On mechanically assisted ventilation 04/22/2019 04/23/2019 Overview: History: Post op cardiac surgery requiring elective intubation Assessment: Grade I airway Plan: WTE Post-operative pain 04/22/2019 05/01/20 Overview: History: 04/22/2019: AVR Assessment: Pain control adequate Plan: Continue scheduled Tylenol and prn oxycodone and tramadol. Preop testing 04/19/2019 04/30/2019 Overview: Date of Consult: 04/12 Type of surgery: Redo AVR/root +/- MVr Date preop tests completed:April 19, 2019 Waiting on: Date Surgeon reviewed Patient: 04/18 Patient work up completed: Waiting on: Date of decision by Surgeon: April 19, 2019 Deemed candidate: Yes Date of surgery: 04/22 Reasons for delay: na [facility] and [facility] PRE-OP CHECKLIST Surgeon: Dr. Forrest Rios Informed Consent Completed: pending STS Score: RISK SCORES Procedure: Isolated AVR CALCULATE Risk of Mortality: 4.605% Renal Failure: 3.404% Permanent Stroke: 2.380% Prolonged Ventilation: 22.071% DSW Infection: 0.035% Reoperation: 7.729% Morbidity or Mortality: 27.681% Short Length of Stay: 12.366% Long Length of Stay: 20.018% CAD: No Is intended procedure a CABG: No - H & P completed: Yes PA/LAT: Completed CT: Completed MRI: N/A LE US: N/A Cath: Yes - reviewed: Yes EKG: Completed Is patient on Amiodarone? Yes Echo:Completed EF %: 70 PI's: N/A Carotid: Completed Mapping: N/A Dental: Completed PFT's: Completed CBC, Coags, BMP, Mg, Phos Recent Labs 04/19/19 0507 04/18/19 0800 04/18/19 0455 04/17/19 0511 WBC 7.49 8.34 7.77 7.81 HB 7.9* 8.2* 7.3* 8.4* HCT 24.7* 25.7* 23.6* 26.5* PLT 144* 151 137* 155 NA 135* -- 134* 134* K 4.5 -- 4.4 4.4 CHLOR 103 -- 102 102 CO2 20* -- 23 22 BUN 37* -- 34* 27* CREAT 1.05* -- 1.03* 1.01* GLUC 83 -- 80 77 CA 8.2* -- 8.3* 8.2* MG 2.0 -- 2.0 1.9 UA: Normal HCG:N/A ABO/ABO Confirmed: Yes Blood ordered: Yes POS ABS 4units Willing to accept blood: Yes SA Swab: Yes - results: Pending Last Dose of Anticoagulation: none Op Note: Yes with Dr. Rios Pacemaker Check: No Implants: no Consults: ID, GI DM: No Cardiac Surgical prep: Yes SIGNATURE: Myrna Car RN LABOR RELATIONS ANALYST.CONFLICTS ANALYST DATE of SERVICE: 04/19/2019 TIME of SERVICE: 11:16 AM CHECKED BY: Moderate protein-calorie malnutrition 04/12/2019 10/02/2020 Overview: History: Post-op problem. Albumin 2.9. Noted on post-op nutrition screen. Assessment: 75% of meals consumed per I/O. Plan: Follow nutrition recs. Last Assessment & Plan: - nutrition referral Parkinson's disease 03/04/2019 06/11/19 Overview: History: Takes Sinement at home Assessment: Stable postop Plan: Resume home regimen. Last Assessment & Plan: Assessment: on Sinemet PLAN: - cont home meds Acute kidney injury 03/04/2019 03/06/20 Last Assessment & Plan: Assessment: - noted to have HILARIO at OSH with Cr of 1.31 on presentation, improved with fluids - likely related to blood loss RESOLVED PLAN: - monitor - avoid nephrotoxins - renally dose meds Acute cystitis with hematuria 03/04/2019 04/08/2022 Last Assessment & Plan: Assessment: - abnormal UA at OSH, was given Rocephin at OSH ED - OSH urine cx: presumptive E coli. pansensitive - appears only received one dose of Rocephin PLAN: - complete treatment with Bactrim Elevated troponin 12/06/2018 12/23/2018 Last Assessment & Plan: No chest pain. EKG - NSR, LVH, LAD Plan: repeat EKG and troponin Trend troponin if remains elevated here GI bleed 12/05/2018 12/23/2018 Last Assessment & Plan: Acute blood loss anemia likely from GI bleed. EGD, colonoscopy - no source of bleeding identify. CT angio Abd aorta + Iliofemoral: Enhancing polypoid lesion within the 1st segment of the duodenum concerning for slowly bleeding mass. Plan: type and screen Blood transfusion consent was taken Monitor CBC q8h for now Transfuse if Hb <7 GI consult in am Continue with PPI bid Hold ASA and other NSAID 12/[address] Bonilla's team for transgastric endoscopy + possible resection of remnant/dudenal first part if needed requested cardiology input due to severe as appreciate their input 12/19 OR on 12/21 npo at 1 am on 12/21 12/21 100 ml of periop bleed found a bleeding du and clipped saw in recovery room groggy coming out of anesthesia 2 hours procedure weaned ot 50% vm in hte theatre and brought to pacu on 2 liters out ot floor in an hour ODELL (iron deficiency anemia) 12/05/2018 03/27/2020 Last Assessment & Plan: Assessment: most recent labs show normal H/H, but does take Ferrous sulfate Bronchitis 08/08/2018 04/08/2022 Postoperative hypertension 1 06/26/2018 Overview: History: 04/22/2019: AVR Assessment: Requiring NTG infusion postop Plan: Titrate to maintain MAPs 65-75. Last Assessment & Plan: Home meds: losartan 50 - was on losartan-hctz prior to December admission stable PLAN: - hold in setting of ?GI bleed Depression 12/23/2018 Last Assessment & Plan: No suicidal or homicidal ideation. Stable. Continue with Citalopram documented as of this encounter (statuses as of 12/12/2022) [facility]06-07-2021 History of Past illness Narrative* Problem Noted Date Diagnosed Date Resolved Date Elective surgery 11/09/2020 04/08/2022 History of UTI 11/06/2020 04/08/2022 Last Assessment & Plan: Assessment: recent, but tx, pre-op WBC normal following UTI Other pancytopenia 01/01/2020 0 Transition of care performed with sharing of clinical summary 04/30/2019 03/27/2020 Overview: Indication for Surgery: Prosthetic aortic valve endocarditis Preop LVEF: 75% RVF: Normal Postop LVEF: Normal RVF: Normal Cath: mild non obsx CAD Cards: [facility] EKG: NSR w/ 1st degree Important/Relevant PMH/PSH: 73F from [facility] with GERD, depression, HTN, gastric bypass, PUD with recent GIB, nephrolithiasis, s/p AVR 2002 admitted with prosthetic valve endocarditis c/b severe AI, posterior root abscess, Parkinsons, CKD, overactive bladder Preoperative Hospital Course Admitted 04/10 with severe aortic insufficiency related to endocarditis Airway Difficulty: Grade I - easy Pacing wires: No. A/V pulled 04/30 Chronological list of Surgeries and Major Events 04/22/2019: Redo AVR, MVr_ 04/29/2019: PPM placement A/P of Major Active ICU Problems Cardiac: EP following for pacer dependency with ventricular rate <30 underneath. Continue DDD 80, mA 10, 5. Formal echo 04/26 showed EF 75%, RV normal. NPO, plan for PPM today. Renal:CKD-- SrCr 0.89, downtrending. Avoid nephrotoxic agents, trend fluid balance and electrolytes. 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 Continue ceftriaxone. Transferred to floor 04/29/19 To do or to watch: Access: Right arm PICC placed 04/30. - POD#7. No tubes/wires. AV paced. On room air. - s/p Redo AVR, MVr for IE: Surg path reviewed. Bacterial PCR + Streptococcus mutans. ID following. PICC placed 04/30. CoPat started. Continue Ceftriaxone through 06/03. Post-op echo completed 04/26: EF 75%, trace Mr, trivial-small pericardial effusion. - s/p PPM: Device check completed 04/30. - FVO: Up 3.7kg. Continue lasix - Dispo: 73 yo female from [place], [place]. Daughter can help. SW following. PT/OT rec home PT/OT; HHC for IV antibiotics. Face-to face ordered. Should be ready for dc when accepting facility found. [facility] f/u scheduled. [facility] f/u requested. Discharge Planning: Anticipated Discharge Date: 05/01/2019 if HHC arranged. Barriers to Discharge: Other: accepting home care agency and - In Process Care Management Discharge Needs: Needs Prior to Discharge: Accepting Facility;IV Antibiotics Volume overload 04/30/2019 04/08/2022 Overview: History: Post-op problem. Assessment: up 3.7kg. I/O -400 (not fully recorded). BUN/CR 30/0.9. K 5.2 Plan: Continue IV diuretics. Replace electrolytes prn. Montior labs, I/O. Monitor daily weight. Continue fluid restriction. Mobilize. Discharge planning issues 04/30/2019 Overview: 73 yo female from [place], [place]. Daughter can help. SW following. PT/OT rec home PT/OT; [facility] for IV antibiotics. Face-to face ordered. Should be ready for dc when accepting facility found. Atelectasis 04/26/2019 04/08/2022 Overview: History: Postop Assessment: Bibasilar on am CXR. Good gas exchange on room air. Plan: Continue BPH, OOB daily and Pep. Thrombocytopenia 04/24/2019 04/26/2019 On mechanically assisted ventilation 04/22/2019 04/23/2019 Overview: History: Post op cardiac surgery requiring elective intubation Assessment: Grade I airway Plan: WTE Post-operative pain 04/22/2019 05/01/20 19 Overview: History: 04/22/2019: AVR Assessment: Pain control adequate Plan: Continue scheduled Tylenol and prn oxycodone and tramadol. Preop testing 04/19/2019 04/30/2019 Overview: Date of Consult: 04/12 Type of surgery: Redo AVR/root +/- MVr Date preop tests completed:April 19, 2019 Waiting on: Date Surgeon reviewed Patient: 04/18 Patient work up completed: Waiting on: Date of decision by Surgeon: April 19, 2019 Deemed candidate: Yes Date of surgery: 04/22 Reasons for delay: na [facility] and [facility] PRE-OP CHECKLIST Surgeon: Dr. Forrest Rios Informed Consent Completed: pending STS Score: RISK SCORES Procedure: Isolated AVR CALCULATE Risk of Mortality: 4.605% Renal Failure: 3.404% Permanent Stroke: 2.380% Prolonged Ventilation: 22.071% DSW Infection: 0.035% Reoperation: 7.729% Morbidity or Mortality: 27.681% Short Length of Stay: 12.366% Long Length of Stay: 20.018% CAD: No Is intended procedure a CABG: No - H & P completed: Yes PA/LAT: Completed CT: Completed MRI: N/A LE US: N/A Cath: Yes - reviewed: Yes EKG: Completed Is patient on Amiodarone? Yes Echo:Completed EF %: 70 PI's: N/A Carotid: Completed Mapping: N/A Dental: Completed PFT's: Completed CBC, Coags, BMP, Mg, Phos Recent Labs 04/19/19 0507 04/18/19 0800 04/18/19 0455 04/17/19 0511 WBC 7.49 8.34 7.77 7.81 HB 7.9* 8.2* 7.3* 8.4* HCT 24.7* 25.7* 23.6* 26.5* PLT 144* 151 137* 155 NA 135* -- 134* 134* K 4.5 -- 4.4 4.4 CHLOR 103 -- 102 102 CO2 20* -- 23 22 BUN 37* -- 34* 27* CREAT 1.05* -- 1.03* 1.01* GLUC 83 -- 80 77 CA 8.2* -- 8.3* 8.2* MG 2.0 -- 2.0 1.9 UA: Normal HCG:N/A ABO/ABO Confirmed: Yes Blood ordered: Yes POS ABS 4units Willing to accept blood: Yes SA Swab: Yes - results: Pending Last Dose of Anticoagulation: none Op Note: Yes with Dr. Rios Pacemaker Check: No Implants: no Consults: ID, GI DM: No Cardiac Surgical prep: Yes SIGNATURE: Myrna Car RN LABOR RELATIONS ANALYST.CONFLICTS ANALYST DATE of SERVICE: 04/19/2019 TIME of SERVICE: 11:16 AM CHECKED BY: Moderate protein-calorie malnutrition 04/12/2019 10/02/2020 Overview: History: Post-op problem. Albumin 2.9. Noted on post-op nutrition screen. Assessment: 75% of meals consumed per I/O. Plan: Follow nutrition recs. Last Assessment & Plan: - nutrition referral Parkinson's disease 03/04/2019 06/11/19 Overview: History: Takes Sinement at home Assessment: Stable postop Plan: Resume home regimen. Last Assessment & Plan: Assessment: on Sinemet PLAN: - cont home meds Acute kidney injury 03/04/2019 03/06/20 Last Assessment & Plan: Assessment: - noted to have HILARIO at OSH with Cr of 1.31 on presentation, improved with fluids - likely related to blood loss RESOLVED PLAN: - monitor - avoid nephrotoxins - renally dose meds Acute cystitis with hematuria 03/04/2019 04/08/2022 Last Assessment & Plan: Assessment: - abnormal UA at OSH, was given Rocephin at OSH ED - OSH urine cx: presumptive E coli. pansensitive - appears only received one dose of Rocephin PLAN: - complete treatment with Bactrim Elevated troponin 12/06/2018 12/23/2018 Last Assessment & Plan: No chest pain. EKG - NSR, LVH, LAD Plan: repeat EKG and troponin Trend troponin if remains elevated here GI bleed 12/05/2018 12/23/2018 Last Assessment & Plan: Acute blood loss anemia likely from GI bleed. EGD, colonoscopy - no source of bleeding identify. CT angio Abd aorta + Iliofemoral: Enhancing polypoid lesion within the 1st segment of the duodenum concerning for slowly bleeding mass. Plan: type and screen Blood transfusion consent was taken Monitor CBC q8h for now Transfuse if Hb <7 GI consult in am Continue with PPI bid Hold ASA and other NSAID 12/[address] Bonilla's team for transgastric endoscopy + possible resection of remnant/dudenal first part if needed requested cardiology input due to severe as appreciate their input 12/19 OR on 12/21 npo at 1 am on 12/21 12/21 100 ml of periop bleed found a bleeding du and clipped saw in recovery room groggy coming out of anesthesia 2 hours procedure weaned ot 50% vm in hte theatre and brought to pacu on 2 liters out ot floor in an hour ODELL (iron deficiency anemia) 12/05/2018 03/27/2020 Last Assessment & Plan: Assessment: most recent labs show normal H/H, but does take Ferrous sulfate Bronchitis 08/08/2018 04/08/2022 Postoperative hypertension 1 06/26/2018 Overview: History: 04/22/2019: AVR Assessment: Requiring NTG infusion postop Plan: Titrate to maintain MAPs 65-75. Last Assessment & Plan: Home meds: losartan 50 - was on losartan-hctz prior to December admission stable PLAN: - hold in setting of ?GI bleed Depression 12/23/2018 Last Assessment & Plan: No suicidal or homicidal ideation. Stable. Continue with Citalopram documented as of this encounter (statuses as of 12/15/2022) [facility]21 History of Past illness Narrative* Problem Noted Date Diagnosed Date Resolved Date Elective surgery 11/09/2020 04/08/2022 History of UTI 11/06/2020 04/08/2022 Last Assessment & Plan: Assessment: recent, but tx, pre-op WBC normal following UTI Other pancytopenia 01/01/2020 0 Transition of care performed with sharing of clinical summary 04/30/2019 03/27/2020 Overview: Indication for Surgery: Prosthetic aortic valve endocarditis Preop LVEF: 75% RVF: Normal Postop LVEF: Normal RVF: Normal Cath: mild non obsx CAD Cards: [facility] EKG: NSR w/ 1st degree Important/Relevant PMH/PSH: 73F from [facility] with GERD, depression, HTN, gastric bypass, PUD with recent GIB, nephrolithiasis, s/p AVR 2002 admitted with prosthetic valve endocarditis c/b severe AI, posterior root abscess, Parkinsons, CKD, overactive bladder Preoperative Hospital Course Admitted 04/10 with severe aortic insufficiency related to endocarditis Airway Difficulty: Grade I - easy Pacing wires: No. A/V pulled 04/30 Chronological list of Surgeries and Major Events 04/22/2019: Redo AVR, MVr_ 04/29/2019: PPM placement A/P of Major Active ICU Problems Cardiac: EP following for pacer dependency with ventricular rate <30 underneath. Continue DDD 80, mA 10, 5. Formal echo 04/26 showed EF 75%, RV normal. NPO, plan for PPM today. Renal:CKD-- SrCr 0.89, downtrending. Avoid nephrotoxic agents, trend fluid balance and electrolytes. 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 Continue ceftriaxone. Transferred to floor 04/29/19 To do or to watch: Access: Right arm PICC placed 04/30. - POD#7. No tubes/wires. AV paced. On room air. - s/p Redo AVR, MVr for IE: Surg path reviewed. Bacterial PCR + Streptococcus mutans. ID following. PICC placed 04/30. CoPat started. Continue Ceftriaxone through 06/03. Post-op echo completed 04/26: EF 75%, trace Mr, trivial-small pericardial effusion. - s/p PPM: Device check completed 04/30. - FVO: Up 3.7kg. Continue lasix - Dispo: 73 yo female from [place], [place]. Daughter can help. SW following. PT/OT rec home PT/OT; HHC for IV antibiotics. Face-to face ordered. Should be ready for dc when accepting facility found. [facility] f/u scheduled. [facility] f/u requested. Discharge Planning: Anticipated Discharge Date: 05/01/2019 if HHC arranged. Barriers to Discharge: Other: accepting home care agency and - In Process Care Management Discharge Needs: Needs Prior to Discharge: Accepting Facility;IV Antibiotics Volume overload 04/30/2019 04/08/2022 Overview: History: Post-op problem. Assessment: up 3.7kg. I/O -400 (not fully recorded). BUN/CR 30/0.9. K 5.2 Plan: Continue IV diuretics. Replace electrolytes prn. Montior labs, I/O. Monitor daily weight. Continue fluid restriction. Mobilize. Discharge planning issues 04/30/2019 Overview: 73 yo female from [place], [place]. Daughter can help. SW following. PT/OT rec home PT/OT; HHC for IV antibiotics. Face-to face ordered. Should be ready for dc when accepting facility found. Atelectasis 04/26/2019 04/08/2022 Overview: History: Postop Assessment: Bibasilar on am CXR. Good gas exchange on room air. Plan: Continue BPH, OOB daily and Pep. Thrombocytopenia 04/24/2019 04/26/2019 On mechanically assisted ventilation 04/22/2019 04/23/2019 Overview: History: Post op cardiac surgery requiring elective intubation Assessment: Grade I airway Plan: WTE Post-operative pain 04/22/2019 05/01/20 Overview: History: 04/22/2019: AVR Assessment: Pain control adequate Plan: Continue scheduled Tylenol and prn oxycodone and tramadol. Preop testing 04/19/2019 04/30/2019 Overview: Date of Consult: 04/12 Type of surgery: Redo AVR/root +/- MVr Date preop tests completed:April 19, 2019 Waiting on: Date Surgeon reviewed Patient: 04/18 Patient work up completed: Waiting on: Date of decision by Surgeon: April 19, 2019 Deemed candidate: Yes Date of surgery: 04/22 Reasons for delay: na [facility] and [facility] PRE-OP CHECKLIST Surgeon: Dr. Forrest Rios Informed Consent Completed: pending STS Score: RISK SCORES Procedure: Isolated AVR CALCULATE Risk of Mortality: 4.605% Renal Failure: 3.404% Permanent Stroke: 2.380% Prolonged Ventilation: 22.071% DSW Infection: 0.035% Reoperation: 7.729% Morbidity or Mortality: 27.681% Short Length of Stay: 12.366% Long Length of Stay: 20.018% CAD: No Is intended procedure a CABG: No - H & P completed: Yes PA/LAT: Completed CT: Completed MRI: N/A LE US: N/A Cath: Yes - reviewed: Yes EKG: Completed Is patient on Amiodarone? Yes Echo:Completed EF %: 70 PI's: N/A Carotid: Completed Mapping: N/A Dental: Completed PFT's: Completed CBC, Coags, BMP, Mg, Phos Recent Labs 04/19/19 0507 04/18/19 0800 04/18/19 0455 04/17/19 0511 WBC 7.49 8.34 7.77 7.81 HB 7.9* 8.2* 7.3* 8.4* HCT 24.7* 25.7* 23.6* 26.5* PLT 144* 151 137* 155 NA 135* -- 134* 134* K 4.5 -- 4.4 4.4 CHLOR 103 -- 102 102 CO2 20* -- 23 22 BUN 37* -- 34* 27* CREAT 1.05* -- 1.03* 1.01* GLUC 83 -- 80 77 CA 8.2* -- 8.3* 8.2* MG 2.0 -- 2.0 1.9 UA: Normal HCG:N/A ABO/ABO Confirmed: Yes Blood ordered: Yes POS ABS 4units Willing to accept blood: Yes SA Swab: Yes - results: Pending Last Dose of Anticoagulation: none Op Note: Yes with Dr. Rios Pacemaker Check: No Implants: no Consults: ID, GI DM: No Cardiac Surgical prep: Yes SIGNATURE: Myrna Car RN LABOR RELATIONS ANALYST.CONFLICTS ANALYST DATE of SERVICE: 04/19/2019 TIME of SERVICE: 11:16 AM CHECKED BY: Moderate protein-calorie malnutrition 04/12/2019 10/02/2020 Overview: History: Post-op problem. Albumin 2.9. Noted on post-op nutrition screen. Assessment: 75% of meals consumed per I/O. Plan: Follow nutrition recs. Last Assessment & Plan: - nutrition referral Parkinson's disease 03/04/2019 06/11/19 Overview: History: Takes Sinement at home Assessment: Stable postop Plan: Resume home regimen. Last Assessment & Plan: Assessment: on Sinemet PLAN: - cont home meds Acute kidney injury 03/04/2019 03/06/20 Last Assessment & Plan: Assessment: - noted to have HILARIO at OSH with Cr of 1.31 on presentation, improved with fluids - likely related to blood loss RESOLVED PLAN: - monitor - avoid nephrotoxins - renally dose meds Acute cystitis with hematuria 03/04/2019 04/08/2022 Last Assessment & Plan: Assessment: - abnormal UA at OSH, was given Rocephin at OSH ED - OSH urine cx: presumptive E coli. pansensitive - appears only received one dose of Rocephin PLAN: - complete treatment with Bactrim Elevated troponin 12/06/2018 12/23/2018 Last Assessment & Plan: No chest pain. EKG - NSR, LVH, LAD Plan: repeat EKG and troponin Trend troponin if remains elevated here GI bleed 12/05/2018 12/23/2018 Last Assessment & Plan: Acute blood loss anemia likely from GI bleed. EGD, colonoscopy - no source of bleeding identify. CT angio Abd aorta + Iliofemoral: Enhancing polypoid lesion within the 1st segment of the duodenum concerning for slowly bleeding mass. Plan: type and screen Blood transfusion consent was taken Monitor CBC q8h for now Transfuse if Hb <7 GI consult in am Continue with PPI bid Hold ASA and other NSAID 12/[address] Bonilla's team for transgastric endoscopy + possible resection of remnant/dudenal first part if needed requested cardiology input due to severe as appreciate their input 12/19 OR on 12/21 npo at 1 am on 12/21 12/21 100 ml of periop bleed found a bleeding du and clipped saw in recovery room groggy coming out of anesthesia 2 hours procedure weaned ot 50% vm in hte theatre and brought to pacu on 2 liters out ot floor in an hour ODELL (iron deficiency anemia) 12/05/2018 03/27/2020 Last Assessment & Plan: Assessment: most recent labs show normal H/H, but does take Ferrous sulfate Bronchitis 08/08/2018 04/08/2022 Postoperative hypertension 1 06/26/2018 Overview: History: 04/22/2019: AVR Assessment: Requiring NTG infusion postop Plan: Titrate to maintain MAPs 65-75. Last Assessment & Plan: Home meds: losartan 50 - was on losartan-hctz prior to December admission stable PLAN: - hold in setting of ?GI bleed Depression 12/23/2018 Last Assessment & Plan: No suicidal or homicidal ideation. Stable. Continue with Citalopram documented as of this encounter (statuses as of 12/15/2022) [facility]06-07-2021 History of Past illness Narrative* Problem Noted Date Diagnosed Date Resolved Date Elective surgery 11/09/2020 04/08/2022 History of UTI 11/06/2020 04/08/2022 Last Assessment & Plan: Assessment: recent, but tx, pre-op WBC normal following UTI Other pancytopenia 01/01/2020 0 Transition of care performed with sharing of clinical summary 04/30/2019 03/27/2020 Overview: Indication for Surgery: Prosthetic aortic valve endocarditis Preop LVEF: 75% RVF: Normal Postop LVEF: Normal RVF: Normal Cath: mild non obsx CAD Cards: [facility] EKG: NSR w/ 1st degree Important/Relevant PMH/PSH: 73F from [facility] with GERD, depression, HTN, gastric bypass, PUD with recent GIB, nephrolithiasis, s/p AVR 2002 admitted with prosthetic valve endocarditis c/b severe AI, posterior root abscess, Parkinsons, CKD, overactive bladder Preoperative Hospital Course Admitted 04/10 with severe aortic insufficiency related to endocarditis Airway Difficulty: Grade I - easy Pacing wires: No. A/V pulled 04/30 Chronological list of Surgeries and Major Events 04/22/2019: Redo AVR, MVr_ 04/29/2019: PPM placement A/P of Major Active ICU Problems Cardiac: EP following for pacer dependency with ventricular rate <30 underneath. Continue DDD 80, mA 10, 5. Formal echo 04/26 showed EF 75%, RV normal. NPO, plan for PPM today. Renal:CKD-- SrCr 0.89, downtrending. Avoid nephrotoxic agents, trend fluid balance and electrolytes. 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 Continue ceftriaxone. Transferred to floor 04/29/19 To do or to watch: Access: Right arm PICC placed 04/30. - POD#7. No tubes/wires. AV paced. On room air. - s/p Redo AVR, MVr for IE: Surg path reviewed. Bacterial PCR + Streptococcus mutans. ID following. PICC placed 04/30. CoPat started. Continue Ceftriaxone through 06/03. Post-op echo completed 04/26: EF 75%, trace Mr, trivial-small pericardial effusion. - s/p PPM: Device check completed 04/30. - FVO: Up 3.7kg. Continue lasix - Dispo: 73 yo female from [place], [place]. Daughter can help. SW following. PT/OT rec home PT/OT; HHC for IV antibiotics. Face-to face ordered. Should be ready for dc when accepting facility found. [facility] f/u scheduled. [facility] OPD f/u requested. Discharge Planning: Anticipated Discharge Date: 05/01/2019 if HHC arranged. Barriers to Discharge: Other: accepting home care agency and - In Process Care Management Discharge Needs: Needs Prior to Discharge: Accepting Facility;IV Antibiotics Volume overload 04/30/2019 04/08/2022 Overview: History: Post-op problem. Assessment: up 3.7kg. I/O -400 (not fully recorded). BUN/CR 30/0.9. K 5.2 Plan: Continue IV diuretics. Replace electrolytes prn. Montior labs, I/O. Monitor daily weight. Continue fluid restriction. Mobilize. Discharge planning issues 04/30/2019 Overview: 73 yo female from [place], [place]. Daughter can help. SW following. PT/OT rec home PT/OT; HHC for IV antibiotics. Face-to face ordered. Should be ready for dc when accepting facility found. Atelectasis 04/26/2019 04/08/2022 Overview: History: Postop Assessment: Bibasilar on am CXR. Good gas exchange on room air. Plan: Continue BPH, OOB daily and Pep. Thrombocytopenia 04/24/2019 04/26/2019 On mechanically assisted ventilation 04/22/2019 04/23/2019 Overview: History: Post op cardiac surgery requiring elective intubation Assessment: Grade I airway Plan: WTE Post-operative pain 04/22/2019 05/01/20 Overview: History: 04/22/2019: AVR Assessment: Pain control adequate Plan: Continue scheduled Tylenol and prn oxycodone and tramadol. Preop testing 04/19/2019 04/30/2019 Overview: Date of Consult: 04/12 Type of surgery: Redo AVR/root +/- MVr Date preop tests completed:April 19, 2019 Waiting on: Date Surgeon reviewed Patient: 04/18 Patient work up completed: Waiting on: Date of decision by Surgeon: April 19, 2019 Deemed candidate: Yes Date of surgery: 04/22 Reasons for delay: na [facility]ART and [facility]STITUTE PRE-OP CHECKLIST Surgeon: Dr. Forrest Rios Informed Consent Completed: pending STS Score: RISK SCORES Procedure: Isolated AVR CALCULATE Risk of Mortality: 4.605% Renal Failure: 3.404% Permanent Stroke: 2.380% Prolonged Ventilation: 22.071% DSW Infection: 0.035% Reoperation: 7.729% Morbidity or Mortality: 27.681% Short Length of Stay: 12.366% Long Length of Stay: 20.018% CAD: No Is intended procedure a CABG: No - H & P completed: Yes PA/LAT: Completed CT: Completed MRI: N/A LE US: N/A Cath: Yes - reviewed: Yes EKG: Completed Is patient on Amiodarone? Yes Echo:Completed EF %: 70 PI's: N/A Carotid: Completed Mapping: N/A Dental: Completed PFT's: Completed CBC, Coags, BMP, Mg, Phos Recent Labs 04/19/19 0507 04/18/19 0800 04/18/19 0455 04/17/19 0511 WBC 7.49 8.34 7.77 7.81 HB 7.9* 8.2* 7.3* 8.4* HCT 24.7* 25.7* 23.6* 26.5* PLT 144* 151 137* 155 NA 135* -- 134* 134* K 4.5 -- 4.4 4.4 CHLOR 103 -- 102 102 CO2 20* -- 23 22 BUN 37* -- 34* 27* CREAT 1.05* -- 1.03* 1.01* GLUC 83 -- 80 77 CA 8.2* -- 8.3* 8.2* MG 2.0 -- 2.0 1.9 UA: Normal HCG:N/A ABO/ABO Confirmed: Yes Blood ordered: Yes POS ABS 4units Willing to accept blood: Yes SA Swab: Yes - results: Pending Last Dose of Anticoagulation: none Op Note: Yes with Dr. Rios Pacemaker Check: No Implants: no Consults: ID, GI DM: No Cardiac Surgical prep: Yes SIGNATURE: Myrna Car RN LABOR RELATIONS ANALYST.CONFLICTS ANALYST DATE of SERVICE: 04/19/2019 TIME of SERVICE: 11:16 AM CHECKED BY: Moderate protein-calorie malnutrition 04/12/2019 10/02/2020 Overview: History: Post-op problem. Albumin 2.9. Noted on post-op nutrition screen. Assessment: 75% of meals consumed per I/O. Plan: Follow nutrition recs. Last Assessment & Plan: - nutrition referral Parkinson's disease 03/04/2019 06/11/19 Overview: History: Takes Sinement at home Assessment: Stable postop Plan: Resume home regimen. Last Assessment & Plan: Assessment: on Sinemet PLAN: - cont home meds Acute kidney injury 03/04/2019 03/06/20 Last Assessment & Plan: Assessment: - noted to have HILARIO at OSH with Cr of 1.31 on presentation, improved with fluids - likely related to blood loss RESOLVED PLAN: - monitor - avoid nephrotoxins - renally dose meds Acute cystitis with hematuria 03/04/2019 04/08/2022 Last Assessment & Plan: Assessment: - abnormal UA at OSH, was given Rocephin at OSH ED - OSH urine cx: presumptive E coli. pansensitive - appears only received one dose of Rocephin PLAN: - complete treatment with Bactrim Elevated troponin 12/06/2018 12/23/2018 Last Assessment & Plan: No chest pain. EKG - NSR, LVH, LAD Plan: repeat EKG and troponin Trend troponin if remains elevated here GI bleed 12/05/2018 12/23/2018 Last Assessment & Plan: Acute blood loss anemia likely from GI bleed. EGD, colonoscopy - no source of bleeding identify. CT angio Abd aorta + Iliofemoral: Enhancing polypoid lesion within the 1st segment of the duodenum concerning for slowly bleeding mass. Plan: type and screen Blood transfusion consent was taken Monitor CBC q8h for now Transfuse if Hb <7 GI consult in am Continue with PPI bid Hold ASA and other NSAID 12/[address] Bonilla's team for transgastric endoscopy + possible resection of remnant/dudenal first part if needed requested cardiology input due to severe as appreciate their input 12/19 OR on 12/21 npo at 1 am on 12/21 12/21 100 ml of periop bleed found a bleeding du and clipped saw in recovery room groggy coming out of anesthesia 2 hours procedure weaned ot 50% vm in hte theatre and brought to pacu on 2 liters out ot floor in an hour ODELL (iron deficiency anemia) 12/05/2018 03/27/2020 Last Assessment & Plan: Assessment: most recent labs show normal H/H, but does take Ferrous sulfate Bronchitis 08/08/2018 04/08/2022 Postoperative hypertension 1 06/26/2018 Overview: History: 04/22/2019: AVR Assessment: Requiring NTG infusion postop Plan: Titrate to maintain MAPs 65-75. Last Assessment & Plan: Home meds: losartan 50 - was on losartan-hctz prior to December admission stable PLAN: - hold in setting of ?GI bleed Depression 12/23/2018 Last Assessment & Plan: No suicidal or homicidal ideation. Stable. Continue with Citalopram documented as of this encounter (statuses as of 01/12/2023) [facility]06-07-2021 History of Past illness Narrative* Problem Noted Date Diagnosed Date Resolved Date Elective surgery 11/09/2020 04/08/2022 History of UTI 11/06/2020 04/08/2022 Last Assessment & Plan: Assessment: recent, but tx, pre-op WBC normal following UTI Other pancytopenia 01/01/2020 0 Transition of care performed with sharing of clinical summary 04/30/2019 03/27/2020 Overview: Indication for Surgery: Prosthetic aortic valve endocarditis Preop LVEF: 75% RVF: Normal Postop LVEF: Normal RVF: Normal Cath: mild non obsx CAD Cards: [facility] EKG: NSR w/ 1st degree Important/Relevant PMH/PSH: 73F from [facility] with GERD, depression, HTN, gastric bypass, PUD with recent GIB, nephrolithiasis, s/p AVR 2002 admitted with prosthetic valve endocarditis c/b severe AI, posterior root abscess, Parkinsons, CKD, overactive bladder Preoperative Hospital Course Admitted 04/10 with severe aortic insufficiency related to endocarditis Airway Difficulty: Grade I - easy Pacing wires: No. A/V pulled 04/30 Chronological list of Surgeries and Major Events 04/22/2019: Redo AVR, MVr_ 04/29/2019: PPM placement A/P of Major Active ICU Problems Cardiac: EP following for pacer dependency with ventricular rate <30 underneath. Continue DDD 80, mA 10, 5. Formal echo 04/26 showed EF 75%, RV normal. NPO, plan for PPM today. Renal:CKD-- SrCr 0.89, downtrending. Avoid nephrotoxic agents, trend fluid balance and electrolytes. 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 Continue ceftriaxone. Transferred to floor 04/29/19 To do or to watch: Access: Right arm PICC placed 04/30. - POD#7. No tubes/wires. AV paced. On room air. - s/p Redo AVR, MVr for IE: Surg path reviewed. Bacterial PCR + Streptococcus mutans. ID following. PICC placed 04/30. CoPat started. Continue Ceftriaxone through 06/03. Post-op echo completed 04/26: EF 75%, trace Mr, trivial-small pericardial effusion. - s/p PPM: Device check completed 04/30. - FVO: Up 3.7kg. Continue lasix - Dispo: 73 yo female from [place], [place]. Daughter can help. SW following. PT/OT rec home PT/OT; HHC for IV antibiotics. Face-to face ordered. Should be ready for dc when accepting facility found. [facility] f/u scheduled. [facility] OPD f/u requested. Discharge Planning: Anticipated Discharge Date: 05/01/2019 if HHC arranged. Barriers to Discharge: Other: accepting home care agency and - In Process Care Management Discharge Needs: Needs Prior to Discharge: Accepting Facility;IV Antibiotics Volume overload 04/30/2019 04/08/2022 Overview: History: Post-op problem. Assessment: up 3.7kg. I/O -400 (not fully recorded). BUN/CR 30/0.9. K 5.2 Plan: Continue IV diuretics. Replace electrolytes prn. Montior labs, I/O. Monitor daily weight. Continue fluid restriction. Mobilize. Discharge planning issues 04/30/2019 Overview: 73 yo female from [place], [place]. Daughter can help. SW following. PT/OT rec home PT/OT; HHC for IV antibiotics. Face-to face ordered. Should be ready for dc when accepting facility found. Atelectasis 04/26/2019 04/08/2022 Overview: History: Postop Assessment: Bibasilar on am CXR. Good gas exchange on room air. Plan: Continue BPH, OOB daily and Pep. Thrombocytopenia 04/24/2019 04/26/2019 On mechanically assisted ventilation 04/22/2019 04/23/2019 Overview: History: Post op cardiac surgery requiring elective intubation Assessment: Grade I airway Plan: WTE Post-operative pain 04/22/2019 05/01/20 Overview: History: 04/22/2019: AVR Assessment: Pain control adequate Plan: Continue scheduled Tylenol and prn oxycodone and tramadol. Preop testing 04/19/2019 04/30/2019 Overview: Date of Consult: 04/12 Type of surgery: Redo AVR/root +/- MVr Date preop tests completed:April 19, 2019 Waiting on: Date Surgeon reviewed Patient: 04/18 Patient work up completed: Waiting on: Date of decision by Surgeon: April 19, 2019 Deemed candidate: Yes Date of surgery: 04/22 Reasons for delay: na [facility]ART and [facility] PRE-OP CHECKLIST Surgeon: Dr. Forrest Rios Informed Consent Completed: pending STS Score: RISK SCORES Procedure: Isolated AVR CALCULATE Risk of Mortality: 4.605% Renal Failure: 3.404% Permanent Stroke: 2.380% Prolonged Ventilation: 22.071% DSW Infection: 0.035% Reoperation: 7.729% Morbidity or Mortality: 27.681% Short Length of Stay: 12.366% Long Length of Stay: 20.018% CAD: No Is intended procedure a CABG: No - H & P completed: Yes PA/LAT: Completed CT: Completed MRI: N/A LE US: N/A Cath: Yes - reviewed: Yes EKG: Completed Is patient on Amiodarone? Yes Echo:Completed EF %: 70 PI's: N/A Carotid: Completed Mapping: N/A Dental: Completed PFT's: Completed CBC, Coags, BMP, Mg, Phos Recent Labs 04/19/19 0507 04/18/19 0800 04/18/19 0455 04/17/19 0511 WBC 7.49 8.34 7.77 7.81 HB 7.9* 8.2* 7.3* 8.4* HCT 24.7* 25.7* 23.6* 26.5* PLT 144* 151 137* 155 NA 135* -- 134* 134* K 4.5 -- 4.4 4.4 CHLOR 103 -- 102 102 CO2 20* -- 23 22 BUN 37* -- 34* 27* CREAT 1.05* -- 1.03* 1.01* GLUC 83 -- 80 77 CA 8.2* -- 8.3* 8.2* MG 2.0 -- 2.0 1.9 UA: Normal HCG:N/A ABO/ABO Confirmed: Yes Blood ordered: Yes POS ABS 4units Willing to accept blood: Yes SA Swab: Yes - results: Pending Last Dose of Anticoagulation: none Op Note: Yes with Dr. Rios Pacemaker Check: No Implants: no Consults: ID, GI DM: No Cardiac Surgical prep: Yes SIGNATURE: Myrna Car RN LABOR RELATIONS ANALYST.CONFLICTS ANALYST DATE of SERVICE: 04/19/2019 TIME of SERVICE: 11:16 AM CHECKED BY: Moderate protein-calorie malnutrition 04/12/2019 10/02/2020 Overview: History: Post-op problem. Albumin 2.9. Noted on post-op nutrition screen. Assessment: 75% of meals consumed per I/O. Plan: Follow nutrition recs. Last Assessment & Plan: - nutrition referral Parkinson's disease 03/04/2019 06/11/19 Overview: History: Takes Sinement at home Assessment: Stable postop Plan: Resume home regimen. Last Assessment & Plan: Assessment: on Sinemet PLAN: - cont home meds Acute kidney injury 03/04/2019 03/06/20 Last Assessment & Plan: Assessment: - noted to have HILARIO at OSH with Cr of 1.31 on presentation, improved with fluids - likely related to blood loss RESOLVED PLAN: - monitor - avoid nephrotoxins - renally dose meds Acute cystitis with hematuria 03/04/2019 04/08/2022 Last Assessment & Plan: Assessment: - abnormal UA at OSH, was given Rocephin at OSH ED - OSH urine cx: presumptive E coli. pansensitive - appears only received one dose of Rocephin PLAN: - complete treatment with Bactrim Elevated troponin 12/06/2018 12/23/2018 Last Assessment & Plan: No chest pain. EKG - NSR, LVH, LAD Plan: repeat EKG and troponin Trend troponin if remains elevated here GI bleed 12/05/2018 12/23/2018 Last Assessment & Plan: Acute blood loss anemia likely from GI bleed. EGD, colonoscopy - no source of bleeding identify. CT angio Abd aorta + Iliofemoral: Enhancing polypoid lesion within the 1st segment of the duodenum concerning for slowly bleeding mass. Plan: type and screen Blood transfusion consent was taken Monitor CBC q8h for now Transfuse if Hb <7 GI consult in am Continue with PPI bid Hold ASA and other NSAID 12/[address] Bonilla's team for transgastric endoscopy + possible resection of remnant/dudenal first part if needed requested cardiology input due to severe as appreciate their input 12/19 OR on 12/21 npo at 1 am on 12/21 12/21 100 ml of periop bleed found a bleeding du and clipped saw in recovery room groggy coming out of anesthesia 2 hours procedure weaned ot 50% vm in hte theatre and brought to pacu on 2 liters out ot floor in an hour ODELL (iron deficiency anemia) 12/05/2018 03/27/2020 Last Assessment & Plan: Assessment: most recent labs show normal H/H, but does take Ferrous sulfate Bronchitis 08/08/2018 04/08/2022 Postoperative hypertension 1 06/26/2018 Overview: History: 04/22/2019: AVR Assessment: Requiring NTG infusion postop Plan: Titrate to maintain MAPs 65-75. Last Assessment & Plan: Home meds: losartan 50 - was on losartan-hctz prior to December admission stable PLAN: - hold in setting of ?GI bleed Depression 12/23/2018 Last Assessment & Plan: No suicidal or homicidal ideation. Stable. Continue with Citalopram documented as of this encounter (statuses as of 04/09/2023) [facility]21 History of Past illness Narrative* Problem Noted Date Diagnosed Date Resolved Date Elective surgery 11/09/2020 04/08/2022 History of UTI 11/06/2020 04/08/2022 Last Assessment & Plan: Assessment: recent, but tx, pre-op WBC normal following UTI Other pancytopenia 01/01/2020 0 Transition of care performed with sharing of clinical summary 04/30/2019 03/27/2020 Overview: Indication for Surgery: Prosthetic aortic valve endocarditis Preop LVEF: 75% RVF: Normal Postop LVEF: Normal RVF: Normal Cath: mild non obsx CAD Cards: [facility] EKG: NSR w/ 1st degree Important/Relevant PMH/PSH: 73F from [facility] with GERD, depression, HTN, gastric bypass, PUD with recent GIB, nephrolithiasis, s/p AVR 2002 admitted with prosthetic valve endocarditis c/b severe AI, posterior root abscess, Parkinsons, CKD, overactive bladder Preoperative Hospital Course Admitted 04/10 with severe aortic insufficiency related to endocarditis Airway Difficulty: Grade I - easy Pacing wires: No. A/V pulled 04/30 Chronological list of Surgeries and Major Events 04/22/2019: Redo AVR, MVr_ 04/29/2019: PPM placement A/P of Major Active ICU Problems Cardiac: EP following for pacer dependency with ventricular rate <30 underneath. Continue DDD 80, mA 10, 5. Formal echo 04/26 showed EF 75%, RV normal. NPO, plan for PPM today. Renal:CKD-- SrCr 0.89, downtrending. Avoid nephrotoxic agents, trend fluid balance and electrolytes. 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 Continue ceftriaxone. Transferred to floor 04/29/19 To do or to watch: Access: Right arm PICC placed 04/30. - POD#7. No tubes/wires. AV paced. On room air. - s/p Redo AVR, MVr for IE: Surg path reviewed. Bacterial PCR + Streptococcus mutans. ID following. PICC placed 04/30. CoPat started. Continue Ceftriaxone through 06/03. Post-op echo completed 04/26: EF 75%, trace Mr, trivial-small pericardial effusion. - s/p PPM: Device check completed 04/30. - FVO: Up 3.7kg. Continue lasix - Dispo: 73 yo female from [place], [place]. Daughter can help. SW following. PT/OT rec home PT/OT; HHC for IV antibiotics. Face-to face ordered. Should be ready for dc when accepting facility found. [facility] f/u scheduled. [facility] O[facility] f/u requested. Discharge Planning: Anticipated Discharge Date: 05/01/2019 if HHC arranged. Barriers to Discharge: Other: accepting home care agency and - In Process Care Management Discharge Needs: Needs Prior to Discharge: Accepting Facility;IV Antibiotics Volume overload 04/30/2019 04/08/2022 Overview: History: Post-op problem. Assessment: up 3.7kg. I/O -400 (not fully recorded). BUN/CR 30/0.9. K 5.2 Plan: Continue IV diuretics. Replace electrolytes prn. Montior labs, I/O. Monitor daily weight. Continue fluid restriction. Mobilize. Discharge planning issues 04/30/2019 Overview: 73 yo female from [place], [place]. Daughter can help. SW following. PT/OT rec home PT/OT; HHC for IV antibiotics. Face-to face ordered. Should be ready for dc when accepting facility found. Atelectasis 04/26/2019 04/08/2022 Overview: History: Postop Assessment: Bibasilar on am CXR. Good gas exchange on room air. Plan: Continue BPH, OOB daily and Pep. Thrombocytopenia 04/24/2019 04/26/2019 On mechanically assisted ventilation 04/22/2019 04/23/2019 Overview: History: Post op cardiac surgery requiring elective intubation Assessment: Grade I airway Plan: WTE Post-operative pain 04/22/2019 05/01/20 19 Overview: History: 04/22/2019: AVR Assessment: Pain control adequate Plan: Continue scheduled Tylenol and prn oxycodone and tramadol. Preop testing 04/19/2019 04/30/2019 Overview: Date of Consult: 04/12 Type of surgery: Redo AVR/root +/- MVr Date preop tests completed:April 19, 2019 Waiting on: Date Surgeon reviewed Patient: 04/18 Patient work up completed: Waiting on: Date of decision by Surgeon: April 19, 2019 Deemed candidate: Yes Date of surgery: 04/22 Reasons for delay: na [facility]ART and [facility]ASCULAR INSTITUTE PRE-OP CHECKLIST Surgeon: Dr. Forrest Rios Informed Consent Completed: pending STS Score: RISK SCORES Procedure: Isolated AVR CALCULATE Risk of Mortality: 4.605% Renal Failure: 3.404% Permanent Stroke: 2.380% Prolonged Ventilation: 22.071% DSW Infection: 0.035% Reoperation: 7.729% Morbidity or Mortality: 27.681% Short Length of Stay: 12.366% Long Length of Stay: 20.018% CAD: No Is intended procedure a CABG: No - H & P completed: Yes PA/LAT: Completed CT: Completed MRI: N/A LE US: N/A Cath: Yes - reviewed: Yes EKG: Completed Is patient on Amiodarone? Yes Echo:Completed EF %: 70 PI's: N/A Carotid: Completed Mapping: N/A Dental: Completed PFT's: Completed CBC, Coags, BMP, Mg, Phos Recent Labs 04/19/19 0507 04/18/19 0800 04/18/19 0455 04/17/19 0511 WBC 7.49 8.34 7.77 7.81 HB 7.9* 8.2* 7.3* 8.4* HCT 24.7* 25.7* 23.6* 26.5* PLT 144* 151 137* 155 NA 135* -- 134* 134* K 4.5 -- 4.4 4.4 CHLOR 103 -- 102 102 CO2 20* -- 23 22 BUN 37* -- 34* 27* CREAT 1.05* -- 1.03* 1.01* GLUC 83 -- 80 77 CA 8.2* -- 8.3* 8.2* MG 2.0 -- 2.0 1.9 UA: Normal HCG:N/A ABO/ABO Confirmed: Yes Blood ordered: Yes POS ABS 4units Willing to accept blood: Yes SA Swab: Yes - results: Pending Last Dose of Anticoagulation: none Op Note: Yes with Dr. Rios Pacemaker Check: No Implants: no Consults: ID, GI DM: No Cardiac Surgical prep: Yes SIGNATURE: Myrna Car RN LABOR RELATIONS ANALYST.CONFLICTS ANALYST DATE of SERVICE: 04/19/2019 TIME of SERVICE: 11:16 AM CHECKED BY: Moderate protein-calorie malnutrition 04/12/2019 10/02/2020 Overview: History: Post-op problem. Albumin 2.9. Noted on post-op nutrition screen. Assessment: 75% of meals consumed per I/O. Plan: Follow nutrition recs. Last Assessment & Plan: - nutrition referral Parkinson's disease 03/04/2019 06/11/19 Overview: History: Takes Sinement at home Assessment: Stable postop Plan: Resume home regimen. Last Assessment & Plan: Assessment: on Sinemet PLAN: - cont home meds Acute kidney injury 03/04/2019 03/06/20 Last Assessment & Plan: Assessment: - noted to have HILARIO at OSH with Cr of 1.31 on presentation, improved with fluids - likely related to blood loss RESOLVED PLAN: - monitor - avoid nephrotoxins - renally dose meds Acute cystitis with hematuria 03/04/2019 04/08/2022 Last Assessment & Plan: Assessment: - abnormal UA at OSH, was given Rocephin at OSH ED - OSH urine cx: presumptive E coli. pansensitive - appears only received one dose of Rocephin PLAN: - complete treatment with Bactrim Elevated troponin 12/06/2018 12/23/2018 Last Assessment & Plan: No chest pain. EKG - NSR, LVH, LAD Plan: repeat EKG and troponin Trend troponin if remains elevated here GI bleed 12/05/2018 12/23/2018 Last Assessment & Plan: Acute blood loss anemia likely from GI bleed. EGD, colonoscopy - no source of bleeding identify. CT angio Abd aorta + Iliofemoral: Enhancing polypoid lesion within the 1st segment of the duodenum concerning for slowly bleeding mass. Plan: type and screen Blood transfusion consent was taken Monitor CBC q8h for now Transfuse if Hb <7 GI consult in am Continue with PPI bid Hold ASA and other NSAID 12/[address] Bonilla's team for transgastric endoscopy + possible resection of remnant/dudenal first part if needed requested cardiology input due to severe as appreciate their input 12/19 OR on 12/21 npo at 1 am on 12/21 12/21 100 ml of periop bleed found a bleeding du and clipped saw in recovery room groggy coming out of anesthesia 2 hours procedure weaned ot 50% vm in hte theatre and brought to pacu on 2 liters out ot floor in an hour ODELL (iron deficiency anemia) 12/05/2018 03/27/2020 Last Assessment & Plan: Assessment: most recent labs show normal H/H, but does take Ferrous sulfate Bronchitis 08/08/2018 04/08/2022 Postoperative hypertension 1 06/26/2018 Overview: History: 04/22/2019: AVR Assessment: Requiring NTG infusion postop Plan: Titrate to maintain MAPs 65-75. Last Assessment & Plan: Home meds: losartan 50 - was on losartan-hctz prior to December admission stable PLAN: - hold in setting of ?GI bleed Depression 12/23/2018 Last Assessment & Plan: No suicidal or homicidal ideation. Stable. Continue with Citalopram documented as of this encounter (statuses as of 04/09/2023) [facility]06-07-2021 History of Past illness Narrative* Problem Noted Date Diagnosed Date Resolved Date Elective surgery 11/09/2020 04/08/2022 History of UTI 11/06/2020 04/08/2022 Last Assessment & Plan: Assessment: recent, but tx, pre-op WBC normal following UTI Other pancytopenia 01/01/2020 0 Transition of care performed with sharing of clinical summary 04/30/2019 03/27/2020 Overview: Indication for Surgery: Prosthetic aortic valve endocarditis Preop LVEF: 75% RVF: Normal Postop LVEF: Normal RVF: Normal Cath: mild non obsx CAD Cards: [facility] EKG: NSR w/ 1st degree Important/Relevant PMH/PSH: 73F from [facility] with GERD, depression, HTN, gastric bypass, PUD with recent GIB, nephrolithiasis, s/p AVR 2002 admitted with prosthetic valve endocarditis c/b severe AI, posterior root abscess, Parkinsons, CKD, overactive bladder Preoperative Hospital Course Admitted 04/10 with severe aortic insufficiency related to endocarditis Airway Difficulty: Grade I - easy Pacing wires: No. A/V pulled 04/30 Chronological list of Surgeries and Major Events 04/22/2019: Redo AVR, MVr_ 04/29/2019: PPM placement A/P of Major Active ICU Problems Cardiac: EP following for pacer dependency with ventricular rate <30 underneath. Continue DDD 80, mA 10, 5. Formal echo 04/26 showed EF 75%, RV normal. NPO, plan for PPM today. Renal:CKD-- SrCr 0.89, downtrending. Avoid nephrotoxic agents, trend fluid balance and electrolytes. 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 Continue ceftriaxone. Transferred to floor 04/29/19 To do or to watch: Access: Right arm PICC placed 04/30. - POD#7. No tubes/wires. AV paced. On room air. - s/p Redo AVR, MVr for IE: Surg path reviewed. Bacterial PCR + Streptococcus mutans. ID following. PICC placed 04/30. CoPat started. Continue Ceftriaxone through 06/03. Post-op echo completed 04/26: EF 75%, trace Mr, trivial-small pericardial effusion. - s/p PPM: Device check completed 04/30. - FVO: Up 3.7kg. Continue lasix - Dispo: 73 yo female from [place], [place]. Daughter can help. SW following. PT/OT rec home PT/OT; HHC for IV antibiotics. Face-to face ordered. Should be ready for dc when accepting facility found. [facility] f/u scheduled. [facility] OPD f/u requested. Discharge Planning: Anticipated Discharge Date: 05/01/2019 if HHC arranged. Barriers to Discharge: Other: accepting home care agency and - In Process Care Management Discharge Needs: Needs Prior to Discharge: Accepting Facility;IV Antibiotics Volume overload 04/30/2019 04/08/2022 Overview: History: Post-op problem. Assessment: up 3.7kg. I/O -400 (not fully recorded). BUN/CR 30/0.9. K 5.2 Plan: Continue IV diuretics. Replace electrolytes prn. Montior labs, I/O. Monitor daily weight. Continue fluid restriction. Mobilize. Discharge planning issues 04/30/2019 Overview: 73 yo female from [place], [place]. Daughter can help. SW following. PT/OT rec home PT/OT; HHC for IV antibiotics. Face-to face ordered. Should be ready for dc when accepting facility found. Atelectasis 04/26/2019 04/08/2022 Overview: History: Postop Assessment: Bibasilar on am CXR. Good gas exchange on room air. Plan: Continue BPH, OOB daily and Pep. Thrombocytopenia 04/24/2019 04/26/2019 On mechanically assisted ventilation 04/22/2019 04/23/2019 Overview: History: Post op cardiac surgery requiring elective intubation Assessment: Grade I airway Plan: WTE Post-operative pain 04/22/2019 05/01/20 Overview: History: 04/22/2019: AVR Assessment: Pain control adequate Plan: Continue scheduled Tylenol and prn oxycodone and tramadol. Preop testing 04/19/2019 04/30/2019 Overview: Date of Consult: 04/12 Type of surgery: Redo AVR/root +/- MVr Date preop tests completed:April 19, 2019 Waiting on: Date Surgeon reviewed Patient: 04/18 Patient work up completed: Waiting on: Date of decision by Surgeon: April 19, 2019 Deemed candidate: Yes Date of surgery: 04/22 Reasons for delay: na [facility] and [facility] PRE-OP CHECKLIST Surgeon: Dr. Forrest Rios Informed Consent Completed: pending STS Score: RISK SCORES Procedure: Isolated AVR CALCULATE Risk of Mortality: 4.605% Renal Failure: 3.404% Permanent Stroke: 2.380% Prolonged Ventilation: 22.071% DSW Infection: 0.035% Reoperation: 7.729% Morbidity or Mortality: 27.681% Short Length of Stay: 12.366% Long Length of Stay: 20.018% CAD: No Is intended procedure a CABG: No - H & P completed: Yes PA/LAT: Completed CT: Completed MRI: N/A LE US: N/A Cath: Yes - reviewed: Yes EKG: Completed Is patient on Amiodarone? Yes Echo:Completed EF %: 70 PI's: N/A Carotid: Completed Mapping: N/A Dental: Completed PFT's: Completed CBC, Coags, BMP, Mg, Phos Recent Labs 04/19/19 0507 04/18/19 0800 04/18/19 0455 04/17/19 0511 WBC 7.49 8.34 7.77 7.81 HB 7.9* 8.2* 7.3* 8.4* HCT 24.7* 25.7* 23.6* 26.5* PLT 144* 151 137* 155 NA 135* -- 134* 134* K 4.5 -- 4.4 4.4 CHLOR 103 -- 102 102 CO2 20* -- 23 22 BUN 37* -- 34* 27* CREAT 1.05* -- 1.03* 1.01* GLUC 83 -- 80 77 CA 8.2* -- 8.3* 8.2* MG 2.0 -- 2.0 1.9 UA: Normal HCG:N/A ABO/ABO Confirmed: Yes Blood ordered: Yes POS ABS 4units Willing to accept blood: Yes SA Swab: Yes - results: Pending Last Dose of Anticoagulation: none Op Note: Yes with Dr. Rios Pacemaker Check: No Implants: no Consults: ID, GI DM: No Cardiac Surgical prep: Yes SIGNATURE: Myrna Car RN LABOR RELATIONS ANALYST.CONFLICTS ANALYST DATE of SERVICE: 04/19/2019 TIME of SERVICE: 11:16 AM CHECKED BY: Moderate protein-calorie malnutrition 04/12/2019 10/02/2020 Overview: History: Post-op problem. Albumin 2.9. Noted on post-op nutrition screen. Assessment: 75% of meals consumed per I/O. Plan: Follow nutrition recs. Last Assessment & Plan: - nutrition referral Parkinson's disease 03/04/2019 06/11/19 Overview: History: Takes Sinement at home Assessment: Stable postop Plan: Resume home regimen. Last Assessment & Plan: Assessment: on Sinemet PLAN: - cont home meds Acute kidney injury 03/04/2019 03/06/20 Last Assessment & Plan: Assessment: - noted to have HILARIO at OSH with Cr of 1.31 on presentation, improved with fluids - likely related to blood loss RESOLVED PLAN: - monitor - avoid nephrotoxins - renally dose meds Acute cystitis with hematuria 03/04/2019 04/08/2022 Last Assessment & Plan: Assessment: - abnormal UA at OSH, was given Rocephin at OSH ED - OSH urine cx: presumptive E coli. pansensitive - appears only received one dose of Rocephin PLAN: - complete treatment with Bactrim Elevated troponin 12/06/2018 12/23/2018 Last Assessment & Plan: No chest pain. EKG - NSR, LVH, LAD Plan: repeat EKG and troponin Trend troponin if remains elevated here GI bleed 12/05/2018 12/23/2018 Last Assessment & Plan: Acute blood loss anemia likely from GI bleed. EGD, colonoscopy - no source of bleeding identify. CT angio Abd aorta + Iliofemoral: Enhancing polypoid lesion within the 1st segment of the duodenum concerning for slowly bleeding mass. Plan: type and screen Blood transfusion consent was taken Monitor CBC q8h for now Transfuse if Hb <7 GI consult in am Continue with PPI bid Hold ASA and other NSAID 12/[address] Bonilla's team for transgastric endoscopy + possible resection of remnant/dudenal first part if needed requested cardiology input due to severe as appreciate their input 12/19 OR on 12/21 npo at 1 am on 12/21 12/21 100 ml of periop bleed found a bleeding du and clipped saw in recovery room groggy coming out of anesthesia 2 hours procedure weaned ot 50% vm in hte theatre and brought to pacu on 2 liters out ot floor in an hour ODELL (iron deficiency anemia) 12/05/2018 03/27/2020 Last Assessment & Plan: Assessment: most recent labs show normal H/H, but does take Ferrous sulfate Bronchitis 08/08/2018 04/08/2022 Postoperative hypertension 1 06/26/2018 Overview: History: 04/22/2019: AVR Assessment: Requiring NTG infusion postop Plan: Titrate to maintain MAPs 65-75. Last Assessment & Plan: Home meds: losartan 50 - was on losartan-hctz prior to December admission stable PLAN: - hold in setting of ?GI bleed Depression 12/23/2018 Last Assessment & Plan: No suicidal or homicidal ideation. Stable. Continue with Citalopram documented as of this encounter (statuses as of 04/09/2023) [facility]06-07-2021 History of Past illness Narrative* Problem Noted Date Diagnosed Date Resolved Date Elective surgery 11/09/2020 04/08/2022 History of UTI 11/06/2020 04/08/2022 Last Assessment & Plan: Assessment: recent, but tx, pre-op WBC normal following UTI Other pancytopenia 01/01/2020 0 Transition of care performed with sharing of clinical summary 04/30/2019 03/27/2020 Overview: Indication for Surgery: Prosthetic aortic valve endocarditis Preop LVEF: 75% RVF: Normal Postop LVEF: Normal RVF: Normal Cath: mild non obsx CAD Cards: [facility] EKG: NSR w/ 1st degree Important/Relevant PMH/PSH: 73F from [facility] with GERD, depression, HTN, gastric bypass, PUD with recent GIB, nephrolithiasis, s/p AVR 2002 admitted with prosthetic valve endocarditis c/b severe AI, posterior root abscess, Parkinsons, CKD, overactive bladder Preoperative Hospital Course Admitted 04/10 with severe aortic insufficiency related to endocarditis Airway Difficulty: Grade I - easy Pacing wires: No. A/V pulled 04/30 Chronological list of Surgeries and Major Events 04/22/2019: Redo AVR, MVr_ 04/29/2019: PPM placement A/P of Major Active ICU Problems Cardiac: EP following for pacer dependency with ventricular rate <30 underneath. Continue DDD 80, mA 10, 5. Formal echo 04/26 showed EF 75%, RV normal. NPO, plan for PPM today. Renal:CKD-- SrCr 0.89, downtrending. Avoid nephrotoxic agents, trend fluid balance and electrolytes. 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 Continue ceftriaxone. Transferred to floor 04/29/19 To do or to watch: Access: Right arm PICC placed 04/30. - POD#7. No tubes/wires. AV paced. On room air. - s/p Redo AVR, MVr for IE: Surg path reviewed. Bacterial PCR + Streptococcus mutans. ID following. PICC placed 04/30. CoPat started. Continue Ceftriaxone through 06/03. Post-op echo completed 04/26: EF 75%, trace Mr, trivial-small pericardial effusion. - s/p PPM: Device check completed 04/30. - FVO: Up 3.7kg. Continue lasix - Dispo: 73 yo female from [place], [place]. Daughter can help. SW following. PT/OT rec home PT/OT; HHC for IV antibiotics. Face-to face ordered. Should be ready for dc when accepting facility found. [facility] f/u scheduled. [facility] OPD f/u requested. Discharge Planning: Anticipated Discharge Date: 05/01/2019 if HHC arranged. Barriers to Discharge: Other: accepting home care agency and - In Process Care Management Discharge Needs: Needs Prior to Discharge: Accepting Facility;IV Antibiotics Volume overload 04/30/2019 04/08/2022 Overview: History: Post-op problem. Assessment: up 3.7kg. I/O -400 (not fully recorded). BUN/CR 30/0.9. K 5.2 Plan: Continue IV diuretics. Replace electrolytes prn. Montior labs, I/O. Monitor daily weight. Continue fluid restriction. Mobilize. Discharge planning issues 04/30/2019 Overview: 73 yo female from [place], [place]. Daughter can help. SW following. PT/OT rec home PT/OT; HHC for IV antibiotics. Face-to face ordered. Should be ready for dc when accepting facility found. Atelectasis 04/26/2019 04/08/2022 Overview: History: Postop Assessment: Bibasilar on am CXR. Good gas exchange on room air. Plan: Continue BPH, OOB daily and Pep. Thrombocytopenia 04/24/2019 04/26/2019 On mechanically assisted ventilation 04/22/2019 04/23/2019 Overview: History: Post op cardiac surgery requiring elective intubation Assessment: Grade I airway Plan: WTE Post-operative pain 04/22/2019 05/01/20 Overview: History: 04/22/2019: AVR Assessment: Pain control adequate Plan: Continue scheduled Tylenol and prn oxycodone and tramadol. Preop testing 04/19/2019 04/30/2019 Overview: Date of Consult: 04/12 Type of surgery: Redo AVR/root +/- MVr Date preop tests completed:April 19, 2019 Waiting on: Date Surgeon reviewed Patient: 04/18 Patient work up completed: Waiting on: Date of decision by Surgeon: April 19, 2019 Deemed candidate: Yes Date of surgery: 04/22 Reasons for delay: na [facility] and [facility] PRE-OP CHECKLIST Surgeon: Dr. Forrest Rios Informed Consent Completed: pending STS Score: RISK SCORES Procedure: Isolated AVR CALCULATE Risk of Mortality: 4.605% Renal Failure: 3.404% Permanent Stroke: 2.380% Prolonged Ventilation: 22.071% DSW Infection: 0.035% Reoperation: 7.729% Morbidity or Mortality: 27.681% Short Length of Stay: 12.366% Long Length of Stay: 20.018% CAD: No Is intended procedure a CABG: No - H & P completed: Yes PA/LAT: Completed CT: Completed MRI: N/A LE US: N/A Cath: Yes - reviewed: Yes EKG: Completed Is patient on Amiodarone? Yes Echo:Completed EF %: 70 PI's: N/A Carotid: Completed Mapping: N/A Dental: Completed PFT's: Completed CBC, Coags, BMP, Mg, Phos Recent Labs 04/19/19 0507 04/18/19 0800 04/18/19 0455 04/17/19 0511 WBC 7.49 8.34 7.77 7.81 HB 7.9* 8.2* 7.3* 8.4* HCT 24.7* 25.7* 23.6* 26.5* PLT 144* 151 137* 155 NA 135* -- 134* 134* K 4.5 -- 4.4 4.4 CHLOR 103 -- 102 102 CO2 20* -- 23 22 BUN 37* -- 34* 27* CREAT 1.05* -- 1.03* 1.01* GLUC 83 -- 80 77 CA 8.2* -- 8.3* 8.2* MG 2.0 -- 2.0 1.9 UA: Normal HCG:N/A ABO/ABO Confirmed: Yes Blood ordered: Yes POS ABS 4units Willing to accept blood: Yes SA Swab: Yes - results: Pending Last Dose of Anticoagulation: none Op Note: Yes with Dr. Rios Pacemaker Check: No Implants: no Consults: ID, GI DM: No Cardiac Surgical prep: Yes SIGNATURE: Myrna Car RN LABOR RELATIONS ANALYST.CONFLICTS ANALYST DATE of SERVICE: 04/19/2019 TIME of SERVICE: 11:16 AM CHECKED BY: Moderate protein-calorie malnutrition 04/12/2019 10/02/2020 Overview: History: Post-op problem. Albumin 2.9. Noted on post-op nutrition screen. Assessment: 75% of meals consumed per I/O. Plan: Follow nutrition recs. Last Assessment & Plan: - nutrition referral Parkinson's disease 03/04/2019 06/11/19 Overview: History: Takes Sinement at home Assessment: Stable postop Plan: Resume home regimen. Last Assessment & Plan: Assessment: on Sinemet PLAN: - cont home meds Acute kidney injury 03/04/2019 03/06/20 Last Assessment & Plan: Assessment: - noted to have HILARIO at OSH with Cr of 1.31 on presentation, improved with fluids - likely related to blood loss RESOLVED PLAN: - monitor - avoid nephrotoxins - renally dose meds Acute cystitis with hematuria 03/04/2019 04/08/2022 Last Assessment & Plan: Assessment: - abnormal UA at OSH, was given Rocephin at OSH ED - OSH urine cx: presumptive E coli. pansensitive - appears only received one dose of Rocephin PLAN: - complete treatment with Bactrim Elevated troponin 12/06/2018 12/23/2018 Last Assessment & Plan: No chest pain. EKG - NSR, LVH, LAD Plan: repeat EKG and troponin Trend troponin if remains elevated here GI bleed 12/05/2018 12/23/2018 Last Assessment & Plan: Acute blood loss anemia likely from GI bleed. EGD, colonoscopy - no source of bleeding identify. CT angio Abd aorta + Iliofemoral: Enhancing polypoid lesion within the 1st segment of the duodenum concerning for slowly bleeding mass. Plan: type and screen Blood transfusion consent was taken Monitor CBC q8h for now Transfuse if Hb <7 GI consult in am Continue with PPI bid Hold ASA and other NSAID 12/[address] Bonilla's team for transgastric endoscopy + possible resection of remnant/dudenal first part if needed requested cardiology input due to severe as appreciate their input 12/19 OR on 12/21 npo at 1 am on 12/21 12/21 100 ml of periop bleed found a bleeding du and clipped saw in recovery room groggy coming out of anesthesia 2 hours procedure weaned ot 50% vm in hte theatre and brought to pacu on 2 liters out ot floor in an hour ODELL (iron deficiency anemia) 12/05/2018 03/27/2020 Last Assessment & Plan: Assessment: most recent labs show normal H/H, but does take Ferrous sulfate Bronchitis 08/08/2018 04/08/2022 Postoperative hypertension 1 06/26/2018 Overview: History: 04/22/2019: AVR Assessment: Requiring NTG infusion postop Plan: Titrate to maintain MAPs 65-75. Last Assessment & Plan: Home meds: losartan 50 - was on losartan-hctz prior to December admission stable PLAN: - hold in setting of ?GI bleed Depression 12/23/2018 Last Assessment & Plan: No suicidal or homicidal ideation. Stable. Continue with Citalopram documented as of this encounter (statuses as of 05/04/2023) [facility] History of Past illness Narrative* Problem Noted Date Diagnosed Date Resolved Date Elective surgery 11/09/2020 04/08/2022 History of UTI 11/06/2020 04/08/2022 Last Assessment & Plan: Assessment: recent, but tx, pre-op WBC normal following UTI Other pancytopenia 01/01/2020 0 Transition of care performed with sharing of clinical summary 04/30/2019 03/27/2020 Overview: Indication for Surgery: Prosthetic aortic valve endocarditis Preop LVEF: 75% RVF: Normal Postop LVEF: Normal RVF: Normal Cath: mild non obsx CAD Cards: [facility] EKG: NSR w/ 1st degree Important/Relevant PMH/PSH: 73F from [facility] with GERD, depression, HTN, gastric bypass, PUD with recent GIB, nephrolithiasis, s/p AVR 2002 admitted with prosthetic valve endocarditis c/b severe AI, posterior root abscess, Parkinsons, CKD, overactive bladder Preoperative Hospital Course Admitted 04/10 with severe aortic insufficiency related to endocarditis Airway Difficulty: Grade I - easy Pacing wires: No. A/V pulled 04/30 Chronological list of Surgeries and Major Events 04/22/2019: Redo AVR, MVr_ 04/29/2019: PPM placement A/P of Major Active ICU Problems Cardiac: EP following for pacer dependency with ventricular rate <30 underneath. Continue DDD 80, mA 10, 5. Formal echo 04/26 showed EF 75%, RV normal. NPO, plan for PPM today. Renal:CKD-- SrCr 0.89, downtrending. Avoid nephrotoxic agents, trend fluid balance and electrolytes. 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 Continue ceftriaxone. Transferred to floor 04/29/19 To do or to watch: Access: Right arm PICC placed 04/30. - POD#7. No tubes/wires. AV paced. On room air. - s/p Redo AVR, MVr for IE: Surg path reviewed. Bacterial PCR + Streptococcus mutans. ID following. PICC placed 04/30. CoPat started. Continue Ceftriaxone through 06/03. Post-op echo completed 04/26: EF 75%, trace Mr, trivial-small pericardial effusion. - s/p PPM: Device check completed 04/30. - FVO: Up 3.7kg. Continue lasix - Dispo: 73 yo female from [place], [place]. Daughter can help. SW following. PT/OT rec home PT/OT; C for IV antibiotics. Face-to face ordered. Should be ready for dc when accepting facility found. [facility] f/u scheduled. [facility] OPD f/u requested. Discharge Planning: Anticipated Discharge Date: 05/01/2019 if HHC arranged. Barriers to Discharge: Other: accepting home care agency and - In Process Care Management Discharge Needs: Needs Prior to Discharge: Accepting Facility;IV Antibiotics Volume overload 04/30/2019 04/08/2022 Overview: History: Post-op problem. Assessment: up 3.7kg. I/O -400 (not fully recorded). BUN/CR 30/0.9. K 5.2 Plan: Continue IV diuretics. Replace electrolytes prn. Montior labs, I/O. Monitor daily weight. Continue fluid restriction. Mobilize. Discharge planning issues 04/30/2019 Overview: 73 yo female from [place], [place]. Daughter can help. SW following. PT/OT rec home PT/OT; C for IV antibiotics. Face-to face ordered. Should be ready for dc when accepting facility found. Atelectasis 04/26/2019 04/08/2022 Overview: History: Postop Assessment: Bibasilar on am CXR. Good gas exchange on room air. Plan: Continue BPH, OOB daily and Pep. Thrombocytopenia 04/24/2019 04/26/2019 On mechanically assisted ventilation 04/22/2019 04/23/2019 Overview: History: Post op cardiac surgery requiring elective intubation Assessment: Grade I airway Plan: WTE Post-operative pain 04/22/2019 05/01/20 Overview: History: 04/22/2019: AVR Assessment: Pain control adequate Plan: Continue scheduled Tylenol and prn oxycodone and tramadol. Preop testing 04/19/2019 04/30/2019 Overview: Date of Consult: 04/12 Type of surgery: Redo AVR/root +/- MVr Date preop tests completed:April 19, 2019 Waiting on: Date Surgeon reviewed Patient: 04/18 Patient work up completed: Waiting on: Date of decision by Surgeon: April 19, 2019 Deemed candidate: Yes Date of surgery: 04/22 Reasons for delay: na [facility] and [facility] PRE-OP CHECKLIST Surgeon: Dr. Forrest Rios Informed Consent Completed: pending STS Score: RISK SCORES Procedure: Isolated AVR CALCULATE Risk of Mortality: 4.605% Renal Failure: 3.404% Permanent Stroke: 2.380% Prolonged Ventilation: 22.071% DSW Infection: 0.035% Reoperation: 7.729% Morbidity or Mortality: 27.681% Short Length of Stay: 12.366% Long Length of Stay: 20.018% CAD: No Is intended procedure a CABG: No - H & P completed: Yes PA/LAT: Completed CT: Completed MRI: N/A LE US: N/A Cath: Yes - reviewed: Yes EKG: Completed Is patient on Amiodarone? Yes Echo:Completed EF %: 70 PI's: N/A Carotid: Completed Mapping: N/A Dental: Completed PFT's: Completed CBC, Coags, BMP, Mg, Phos Recent Labs 04/19/19 0507 04/18/19 0800 04/18/19 0455 04/17/19 0511 WBC 7.49 8.34 7.77 7.81 HB 7.9* 8.2* 7.3* 8.4* HCT 24.7* 25.7* 23.6* 26.5* PLT 144* 151 137* 155 NA 135* -- 134* 134* K 4.5 -- 4.4 4.4 CHLOR 103 -- 102 102 CO2 20* -- 23 22 BUN 37* -- 34* 27* CREAT 1.05* -- 1.03* 1.01* GLUC 83 -- 80 77 CA 8.2* -- 8.3* 8.2* MG 2.0 -- 2.0 1.9 UA: Normal HCG:N/A ABO/ABO Confirmed: Yes Blood ordered: Yes POS ABS 4units Willing to accept blood: Yes SA Swab: Yes - results: Pending Last Dose of Anticoagulation: none Op Note: Yes with Dr. Rios Pacemaker Check: No Implants: no Consults: ID, GI DM: No Cardiac Surgical prep: Yes SIGNATURE: Myrna Car RN LABOR RELATIONS ANALYST.CONFLICTS ANALYST DATE of SERVICE: 04/19/2019 TIME of SERVICE: 11:16 AM CHECKED BY: Moderate protein-calorie malnutrition 04/12/2019 10/02/2020 Overview: History: Post-op problem. Albumin 2.9. Noted on post-op nutrition screen. Assessment: 75% of meals consumed per I/O. Plan: Follow nutrition recs. Last Assessment & Plan: - nutrition referral Parkinson's disease 03/04/2019 06/11/19 Overview: History: Takes Sinement at home Assessment: Stable postop Plan: Resume home regimen. Last Assessment & Plan: Assessment: on Sinemet PLAN: - cont home meds Acute kidney injury 03/04/2019 03/06/20 Last Assessment & Plan: Assessment: - noted to have HILARIO at OSH with Cr of 1.31 on presentation, improved with fluids - likely related to blood loss RESOLVED PLAN: - monitor - avoid nephrotoxins - renally dose meds Acute cystitis with hematuria 03/04/2019 04/08/2022 Last Assessment & Plan: Assessment: - abnormal UA at OSH, was given Rocephin at OSH ED - OSH urine cx: presumptive E coli. pansensitive - appears only received one dose of Rocephin PLAN: - complete treatment with Bactrim Elevated troponin 12/06/2018 12/23/2018 Last Assessment & Plan: No chest pain. EKG - NSR, LVH, LAD Plan: repeat EKG and troponin Trend troponin if remains elevated here GI bleed 12/05/2018 12/23/2018 Last Assessment & Plan: Acute blood loss anemia likely from GI bleed. EGD, colonoscopy - no source of bleeding identify. CT angio Abd aorta + Iliofemoral: Enhancing polypoid lesion within the 1st segment of the duodenum concerning for slowly bleeding mass. Plan: type and screen Blood transfusion consent was taken Monitor CBC q8h for now Transfuse if Hb <7 GI consult in am Continue with PPI bid Hold ASA and other NSAID 12/[address] Bonilla's team for transgastric endoscopy + possible resection of remnant/dudenal first part if needed requested cardiology input due to severe as appreciate their input 12/19 OR on 12/21 npo at 1 am on 12/21 12/21 100 ml of periop bleed found a bleeding du and clipped saw in recovery room groggy coming out of anesthesia 2 hours procedure weaned ot 50% vm in hte theatre and brought to pacu on 2 liters out ot floor in an hour ODELL (iron deficiency anemia) 12/05/2018 03/27/2020 Last Assessment & Plan: Assessment: most recent labs show normal H/H, but does take Ferrous sulfate Bronchitis 08/08/2018 04/08/2022 Postoperative hypertension 1 06/26/2018 Overview: History: 04/22/2019: AVR Assessment: Requiring NTG infusion postop Plan: Titrate to maintain MAPs 65-75. Last Assessment & Plan: Home meds: losartan 50 - was on losartan-hctz prior to December admission stable PLAN: - hold in setting of ?GI bleed Depression 12/23/2018 Last Assessment & Plan: No suicidal or homicidal ideation. Stable. Continue with Citalopram documented as of this encounter (statuses as of 08/12/2023) [facility]10-27-2020 History of Present illness Narrative* Carmelo FloodRt)[place] - 03/31/2020 3:30 PM EDT Radiology Service Progress Note PATIENT NAME: Maia Nieto DATE OF SERVICE: March 31, 2020 TIME: 3:40 PM PATIENT IDENTITY VERIFICATION COMPLETED USING TWO (2) IDENTIFIERS: Name and Date of confirmedby patient verbally. FALL SCREENING: Has the patient had 2 falls in the last year or 1 fall with injury or currently using an Ambulatory Assistive Device (Walker, Cane, Wheelchair, Crutches, etc.)? No PATIENT GENDER DATA: Female. status: : No status: NO. PATIENT RELEVANT IMPLANT DATA REVIEWED: Not Applicable RADIOLOGY DEPARTMENT: General X-ray: Exam(s) Completed: Lower Extremity X- Ray(s): Knee, AP / Lat / Tunne / Merchant Left and Wt. Bearing: PERIPHERAL IV DATA: Not applicable SIGNED BY: RT Dana March 31, 2020 3:40 PM documented in this encounterL[facility] History of Past illness Narrative* Problem Noted Date Resolved Date Other pancytopenia 01/01/2020 03/27/2020 Transition of care performed with sharing of clinical summary 04/30/2019 03/27/2020 Overview: Indication for Surgery: Prosthetic aortic valve endocarditis Preop LVEF: 75% RVF: Normal Postop LVEF: Normal RVF: Normal Cath: mild non obsx CAD Cards: [facility] EKG: NSR w/ 1st degree Important/Relevant PMH/PSH: 73F from [facility] with GERD, depression, HTN, gastric bypass, PUD with recent GIB, nephrolithiasis, s/p AVR 2002 admitted with prosthetic valve endocarditis c/b severe AI, posterior root abscess, Parkinsons, CKD, overactive bladder Preoperative Hospital Course Admitted 04/10 with severe aortic insufficiency related to endocarditis Airway Difficulty: Grade I - easy Pacing wires: No. A/V pulled 04/30 Chronological list of Surgeries and Major Events 04/22/2019: Redo AVR, MVr_ 04/29/2019: PPM placement A/P of Major Active ICU Problems Cardiac: EP following for pacer dependency with ventricular rate <30 underneath. Continue DDD 80, mA 10, 5. Formal echo 04/26 showed EF 75%, RV normal. NPO, plan for PPM today. Renal:CKD-- SrCr 0.89, downtrending. Avoid nephrotoxic agents, trend fluid balance and electrolytes. 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 Continue ceftriaxone. Transferred to floor 04/29/19 To do or to watch: Access: Right arm PICC placed 04/30. - POD#7. No tubes/wires. AV paced. On room air. - s/p Redo AVR, MVr for IE: Surg path reviewed. Bacterial PCR + Streptococcus mutans. ID following. PICC placed 04/30. CoPat started. Continue Ceftriaxone through 06/03. Post-op echo completed 04/26: EF 75%, trace Mr, trivial-small pericardial effusion. - s/p PPM: Device check completed 04/30. - FVO: Up 3.7kg. Continue lasix - Dispo: 73 yo female from [place], [place]. Daughter can help. SW following. PT/OT rec home PT/OT; HHC for IV antibiotics. Face-to face ordered. Should be ready for dc when accepting facility found. [facility]iology f/u scheduled. [facility] OPD f/u requested. Discharge Planning: Anticipated Discharge Date: 05/01/2019 if HHC arranged. Barriers to Discharge: Other: accepting home care agency and - In Process Care Management Discharge Needs: Needs Prior to Discharge: Accepting Facility;IV Antibiotics Discharge planning issues 04/30/20192019 Overview: 73 yo female from [place], [place]. Daughter can help. SW following. PT/OT rec home PT/OT; HHC for IV antibiotics. Face-to face ordered. Should be ready for dc when accepting facility found. Thrombocytopenia 04/24/2019 04/26/2019 On mechanically assisted ventilation 04/22/2019 04/23/2019 Overview: History: Post op cardiac surgery requiring elective intubation Assessment: Grade I airway Plan: WTE Post-operative pain 04/22/2019 05/01/2019 Overview: History: 04/22/2019: AVR Assessment: Pain control adequate Plan: Continue scheduled Tylenol and prn oxycodone and tramadol. Preop testing 04/19/2019 04/30/2019 Overview: Date of Consult: 04/12 Type of surgery: Redo AVR/root +/- MVr Date preop tests completed:April 19, 2019 Waiting on: Date Surgeon reviewed Patient: 04/18 Patient work up completed: Waiting on: Date of decision by Surgeon: April 19, 2019 Deemed candidate: Yes Date of surgery: 04/22 Reasons for delay: na [facility] and [facility] PRE-OP CHECKLIST Surgeon: Dr. Forrest Rios Informed Consent Completed: pending STS Score: RISK SCORES Procedure: Isolated AVR CALCULATE Risk of Mortality: 4.605% Renal Failure: 3.404% Permanent Stroke: 2.380% Prolonged Ventilation: 22.071% DSW Infection: 0.035% Reoperation: 7.729% Morbidity or Mortality: 27.681% Short Length of Stay: 12.366% Long Length of Stay: 20.018% CAD: No Is intended procedure a CABG: No - H & P completed: Yes PA/LAT: Completed CT: Completed MRI: N/A LE US: N/A Cath: Yes - reviewed: Yes EKG: Completed Is patient on Amiodarone? Yes Echo:Completed EF %: 70 PI's: N/A Carotid: Completed Mapping: N/A Dental: Completed PFT's: Completed CBC, Coags, BMP, Mg, Phos Recent Labs 04/19/19 0507 04/18/19 0800 04/18/19 0455 04/17/19 0511 WBC 7.49 8.34 7.77 7.81 HB 7.9* 8.2* 7.3* 8.4* HCT 24.7* 25.7* 23.6* 26.5* PLT 144* 151 137* 155 NA 135* -- 134* 134* K 4.5 -- 4.4 4.4 CHLOR 103 -- 102 102 CO2 20* -- 23 22 BUN 37* -- 34* 27* CREAT 1.05* -- 1.03* 1.01* GLUC 83 -- 80 77 CA 8.2* -- 8.3* 8.2* MG 2.0 -- 2.0 1.9 UA: Normal HCG:N/A ABO/ABO Confirmed: Yes Blood ordered: Yes POS ABS 4units Willing to accept blood: Yes SA Swab: Yes - results: Pending Last Dose of Anticoagulation: none Op Note: Yes with Dr. Rios Pacemaker Check: No Implants: no Consults: ID, GI DM: No Cardiac Surgical prep: Yes SIGNATURE: Myrna Car RN LABOR RELATIONS ANALYST.CONFLICTS ANALYST DATE of SERVICE: 04/19/2019 TIME of SERVICE: 11:16 AM CHECKED BY: Moderate protein-calorie malnutrition 04/12/2019 10/02/2020 Overview: History: Post-op problem. Albumin 2.9. Noted on post-op nutrition screen. Assessment: 75% of meals consumed per I/O. Plan: Follow nutrition recs. Last Assessment & Plan: - nutrition referral Parkinson's disease 03/04/2019 06/11/2019 Overview: History: Takes Sinement at home Assessment: Stable postop Plan: Resume home regimen. Last Assessment & Plan: Assessment: on Sinemet PLAN: - cont home meds Acute kidney injury 03/04/2019 03/06/2019 Last Assessment & Plan: Assessment: - noted to have HILARIO at OSH with Cr of 1.31 on presentation, improved with fluids - likely related to blood loss RESOLVED PLAN: - monitor - avoid nephrotoxins - renally dose meds Elevated troponin 12/06/2018 12/23/2018 Last Assessment & Plan: No chest pain. EKG - NSR, LVH, LAD Plan: repeat EKG and troponin Trend troponin if remains elevated here GI bleed 12/05/2018 12/23/2018 Last Assessment & Plan: Acute blood loss anemia likely from GI bleed. EGD, colonoscopy - no source of bleeding identify. CT angio Abd aorta + Iliofemoral: Enhancing polypoid lesion within the 1st segment of the duodenum concerning for slowly bleeding mass. Plan: type and screen Blood transfusion consent was taken Monitor CBC q8h for now Transfuse if Hb <7 GI consult in am Continue with PPI bid Hold ASA and other NSAID 12/[address] Bonilla's team for transgastric endoscopy + possible resection of remnant/dudenal first part if needed requested cardiology input due to severe as appreciate their input 12/19 OR on 12/21 npo at 1 am on 12/21 12/21 100 ml of periop bleed found a bleeding du and clipped saw in recovery room groggy coming out of anesthesia 2 hours procedure weaned ot 50% vm in hte theatre and brought to pacu on 2 liters out ot floor in an hour ODELL (iron deficiency anemia) 12/05/2018 Last Assessment & Plan: Assessment: most recent labs show normal H/H, but does take Ferrous sulfate Postoperative hypertension 04/26 Overview: History: 04/22/2019: AVR Assessment: Requiring NTG infusion postop Plan: Titrate to maintain MAPs 65-75. Last Assessment & Plan: Home meds: losartan 50 - was on losartan-hctz prior to December admission stable PLAN: - hold in setting of ?GI bleed Depression 12/23/2018 Last Assessment & Plan: No suicidal or homicidal ideation. Stable. Continue with Citalopram documented as of this encounter (statuses as of 08/22/2021) [facility]07[facility] History of Past illness Narrative* Problem Noted Date Resolved Date Other pancytopenia 01/01/2020 03/27/2020 Transition of care performed with sharing of clinical summary 04/30/2019 03/27/2020 Overview: Indication for Surgery: Prosthetic aortic valve endocarditis Preop LVEF: 75% RVF: Normal Postop LVEF: Normal RVF: Normal Cath: mild non obsx CAD Cards: [facility] EKG: NSR w/ 1st degree Important/Relevant PMH/PSH: 73F from [facility] with GERD, depression, HTN, gastric bypass, PUD with recent GIB, nephrolithiasis, s/p AVR 2002 admitted with prosthetic valve endocarditis c/b severe AI, posterior root abscess, Parkinsons, CKD, overactive bladder Preoperative Hospital Course Admitted 04/10 with severe aortic insufficiency related to endocarditis Airway Difficulty: Grade I - easy Pacing wires: No. A/V pulled 04/30 Chronological list of Surgeries and Major Events 04/22/2019: Redo AVR, MVr_ 04/29/2019: PPM placement A/P of Major Active ICU Problems Cardiac: EP following for pacer dependency with ventricular rate <30 underneath. Continue DDD 80, mA 10, 5. Formal echo 04/26 showed EF 75%, RV normal. NPO, plan for PPM today. Renal:CKD-- SrCr 0.89, downtrending. Avoid nephrotoxic agents, trend fluid balance and electrolytes. 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 Continue ceftriaxone. Transferred to floor 04/29/19 To do or to watch: Access: Right arm PICC placed 04/30. - POD#7. No tubes/wires. AV paced. On room air. - s/p Redo AVR, MVr for IE: Surg path reviewed. Bacterial PCR + Streptococcus mutans. ID following. PICC placed 04/30. CoPat started. Continue Ceftriaxone through 06/03. Post-op echo completed 04/26: EF 75%, trace Mr, trivial-small pericardial effusion. - s/p PPM: Device check completed 04/30. - FVO: Up 3.7kg. Continue lasix - Dispo: 73 yo female from [place], [place]. Daughter can help. SW following. PT/OT rec home PT/OT; HHC for IV antibiotics. Face-to face ordered. Should be ready for dc when accepting facility found. [facility] Cardiology f/u scheduled. [facility]TS OPD f/u requested. Discharge Planning: Anticipated Discharge Date: 05/01/2019 if HHC arranged. Barriers to Discharge: Other: accepting home care agency and - In Process Care Management Discharge Needs: Needs Prior to Discharge: Accepting Facility;IV Antibiotics Discharge planning issues 04/30/20192019 Overview: 73 yo female from [place], [place]. Daughter can help. SW following. PT/OT rec home PT/OT; HHC for IV antibiotics. Face-to face ordered. Should be ready for dc when accepting facility found. Thrombocytopenia 04/24/2019 04/26/2019 On mechanically assisted ventilation 04/22/2019 04/23/2019 Overview: History: Post op cardiac surgery requiring elective intubation Assessment: Grade I airway Plan: WTE Post-operative pain 04/22/2019 05/01/2019 Overview: History: 04/22/2019: AVR Assessment: Pain control adequate Plan: Continue scheduled Tylenol and prn oxycodone and tramadol. Preop testing 04/19/2019 04/30/2019 Overview: Date of Consult: 04/12 Type of surgery: Redo AVR/root +/- MVr Date preop tests completed:April 19, 2019 Waiting on: Date Surgeon reviewed Patient: 04/18 Patient work up completed: Waiting on: Date of decision by Surgeon: April 19, 2019 Deemed candidate: Yes Date of surgery: 04/22 Reasons for delay: na [facility] and [facility] PRE-OP CHECKLIST Surgeon: Dr. Forrest Rios Informed Consent Completed: pending STS Score: RISK SCORES Procedure: Isolated AVR CALCULATE Risk of Mortality: 4.605% Renal Failure: 3.404% Permanent Stroke: 2.380% Prolonged Ventilation: 22.071% DSW Infection: 0.035% Reoperation: 7.729% Morbidity or Mortality: 27.681% Short Length of Stay: 12.366% Long Length of Stay: 20.018% CAD: No Is intended procedure a CABG: No - H & P completed: Yes PA/LAT: Completed CT: Completed MRI: N/A LE US: N/A Cath: Yes - reviewed: Yes EKG: Completed Is patient on Amiodarone? Yes Echo:Completed EF %: 70 PI's: N/A Carotid: Completed Mapping: N/A Dental: Completed PFT's: Completed CBC, Coags, BMP, Mg, Phos Recent Labs 04/19/19 0507 04/18/19 0800 04/18/19 0455 04/17/19 0511 WBC 7.49 8.34 7.77 7.81 HB 7.9* 8.2* 7.3* 8.4* HCT 24.7* 25.7* 23.6* 26.5* PLT 144* 151 137* 155 NA 135* -- 134* 134* K 4.5 -- 4.4 4.4 CHLOR 103 -- 102 102 CO2 20* -- 23 22 BUN 37* -- 34* 27* CREAT 1.05* -- 1.03* 1.01* GLUC 83 -- 80 77 CA 8.2* -- 8.3* 8.2* MG 2.0 -- 2.0 1.9 UA: Normal HCG:N/A ABO/ABO Confirmed: Yes Blood ordered: Yes POS ABS 4units Willing to accept blood: Yes SA Swab: Yes - results: Pending Last Dose of Anticoagulation: none Op Note: Yes with Dr. Rios Pacemaker Check: No Implants: no Consults: ID, GI DM: No Cardiac Surgical prep: Yes SIGNATURE: Myrna Car RN LABOR RELATIONS ANALYST.CONFLICTS ANALYST DATE of SERVICE: 04/19/2019 TIME of SERVICE: 11:16 AM CHECKED BY: Moderate protein-calorie malnutrition 04/12/2019 10/02/2020 Overview: History: Post-op problem. Albumin 2.9. Noted on post-op nutrition screen. Assessment: 75% of meals consumed per I/O. Plan: Follow nutrition recs. Last Assessment & Plan: - nutrition referral Parkinson's disease 03/04/2019 06/11/2019 Overview: History: Takes Sinement at home Assessment: Stable postop Plan: Resume home regimen. Last Assessment & Plan: Assessment: on Sinemet PLAN: - cont home meds Acute kidney injury 03/04/2019 03/06/2019 Last Assessment & Plan: Assessment: - noted to have HILARIO at OSH with Cr of 1.31 on presentation, improved with fluids - likely related to blood loss RESOLVED PLAN: - monitor - avoid nephrotoxins - renally dose meds Elevated troponin 12/06/2018 12/23/2018 Last Assessment & Plan: No chest pain. EKG - NSR, LVH, LAD Plan: repeat EKG and troponin Trend troponin if remains elevated here GI bleed 12/05/2018 12/23/2018 Last Assessment & Plan: Acute blood loss anemia likely from GI bleed. EGD, colonoscopy - no source of bleeding identify. CT angio Abd aorta + Iliofemoral: Enhancing polypoid lesion within the 1st segment of the duodenum concerning for slowly bleeding mass. Plan: type and screen Blood transfusion consent was taken Monitor CBC q8h for now Transfuse if Hb <7 GI consult in am Continue with PPI bid Hold ASA and other NSAID 12/[address] Bonilla's team for transgastric endoscopy + possible resection of remnant/dudenal first part if needed requested cardiology input due to severe as appreciate their input 12/19 OR on 12/21 npo at 1 am on 12/21 12/21 100 ml of periop bleed found a bleeding du and clipped saw in recovery room groggy coming out of anesthesia 2 hours procedure weaned ot 50% vm in hte theatre and brought to pacu on 2 liters out ot floor in an hour ODELL (iron deficiency anemia) 12/05/2018 Last Assessment & Plan: Assessment: most recent labs show normal H/H, but does take Ferrous sulfate Postoperative hypertension 04/26 Overview: History: 04/22/2019: AVR Assessment: Requiring NTG infusion postop Plan: Titrate to maintain MAPs 65-75. Last Assessment & Plan: Home meds: losartan 50 - was on losartan-hctz prior to December admission stable PLAN: - hold in setting of ?GI bleed Depression 12/23/2018 Last Assessment & Plan: No suicidal or homicidal ideation. Stable. Continue with Citalopram documented as of this encounter (statuses as of 08/23/2021) [facility]07-[facility] History of Past illness Narrative* Problem Noted Date Resolved Date Other pancytopenia 01/01/2020 03/27/2020 Transition of care performed with sharing of clinical summary 04/30/2019 03/27/2020 Overview: Indication for Surgery: Prosthetic aortic valve endocarditis Preop LVEF: 75% RVF: Normal Postop LVEF: Normal RVF: Normal Cath: mild non obsx CAD Cards: [facility] EKG: NSR w/ 1st degree Important/Relevant PMH/PSH: 73F from [facility] with GERD, depression, HTN, gastric bypass, PUD with recent GIB, nephrolithiasis, s/p AVR 2002 admitted with prosthetic valve endocarditis c/b severe AI, posterior root abscess, Parkinsons, CKD, overactive bladder Preoperative Hospital Course Admitted 04/10 with severe aortic insufficiency related to endocarditis Airway Difficulty: Grade I - easy Pacing wires: No. A/V pulled 04/30 Chronological list of Surgeries and Major Events 04/22/2019: Redo AVR, MVr_ 04/29/2019: PPM placement A/P of Major Active ICU Problems Cardiac: EP following for pacer dependency with ventricular rate <30 underneath. Continue DDD 80, mA 10, 5. Formal echo 04/26 showed EF 75%, RV normal. NPO, plan for PPM today. Renal:CKD-- SrCr 0.89, downtrending. Avoid nephrotoxic agents, trend fluid balance and electrolytes. 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 Continue ceftriaxone. Transferred to floor 04/29/19 To do or to watch: Access: Right arm PICC placed 04/30. - POD#7. No tubes/wires. AV paced. On room air. - s/p Redo AVR, MVr for IE: Surg path reviewed. Bacterial PCR + Streptococcus mutans. ID following. PICC placed 04/30. CoPat started. Continue Ceftriaxone through 06/03. Post-op echo completed 04/26: EF 75%, trace Mr, trivial-small pericardial effusion. - s/p PPM: Device check completed 04/30. - FVO: Up 3.7kg. Continue lasix - Dispo: 73 yo female from [place], [place]. Daughter can help. SW following. PT/OT rec home PT/OT; HHC for IV antibiotics. Face-to face ordered. Should be ready for dc when accepting facility found. [facility]iology f/u scheduled. [facility] OPD f/u requested. Discharge Planning: Anticipated Discharge Date: 05/01/2019 if HHC arranged. Barriers to Discharge: Other: accepting home care agency and - In Process Care Management Discharge Needs: Needs Prior to Discharge: Accepting Facility;IV Antibiotics Discharge planning issues 04/30/20192019 Overview: 73 yo female from [place], [place]. Daughter can help. SW following. PT/OT rec home PT/OT; HHC for IV antibiotics. Face-to face ordered. Should be ready for dc when accepting facility found. Thrombocytopenia 04/24/2019 04/26/2019 On mechanically assisted ventilation 04/22/2019 04/23/2019 Overview: History: Post op cardiac surgery requiring elective intubation Assessment: Grade I airway Plan: WTE Post-operative pain 04/22/2019 05/01/2019 Overview: History: 04/22/2019: AVR Assessment: Pain control adequate Plan: Continue scheduled Tylenol and prn oxycodone and tramadol. Preop testing 04/19/2019 04/30/2019 Overview: Date of Consult: 04/12 Type of surgery: Redo AVR/root +/- MVr Date preop tests completed:April 19, 2019 Waiting on: Date Surgeon reviewed Patient: 04/18 Patient work up completed: Waiting on: Date of decision by Surgeon: April 19, 2019 Deemed candidate: Yes Date of surgery: 04/22 Reasons for delay: na [facility]ART and [facility] PRE-OP CHECKLIST Surgeon: Dr. Forrest Rios Informed Consent Completed: pending STS Score: RISK SCORES Procedure: Isolated AVR CALCULATE Risk of Mortality: 4.605% Renal Failure: 3.404% Permanent Stroke: 2.380% Prolonged Ventilation: 22.071% DSW Infection: 0.035% Reoperation: 7.729% Morbidity or Mortality: 27.681% Short Length of Stay: 12.366% Long Length of Stay: 20.018% CAD: No Is intended procedure a CABG: No - H & P completed: Yes PA/LAT: Completed CT: Completed MRI: N/A LE US: N/A Cath: Yes - reviewed: Yes EKG: Completed Is patient on Amiodarone? Yes Echo:Completed EF %: 70 PI's: N/A Carotid: Completed Mapping: N/A Dental: Completed PFT's: Completed CBC, Coags, BMP, Mg, Phos Recent Labs 04/19/19 0507 04/18/19 0800 04/18/19 0455 04/17/19 0511 WBC 7.49 8.34 7.77 7.81 HB 7.9* 8.2* 7.3* 8.4* HCT 24.7* 25.7* 23.6* 26.5* PLT 144* 151 137* 155 NA 135* -- 134* 134* K 4.5 -- 4.4 4.4 CHLOR 103 -- 102 102 CO2 20* -- 23 22 BUN 37* -- 34* 27* CREAT 1.05* -- 1.03* 1.01* GLUC 83 -- 80 77 CA 8.2* -- 8.3* 8.2* MG 2.0 -- 2.0 1.9 UA: Normal HCG:N/A ABO/ABO Confirmed: Yes Blood ordered: Yes POS ABS 4units Willing to accept blood: Yes SA Swab: Yes - results: Pending Last Dose of Anticoagulation: none Op Note: Yes with Dr. Rios Pacemaker Check: No Implants: no Consults: ID, GI DM: No Cardiac Surgical prep: Yes SIGNATURE: Myrna Car RN LABOR RELATIONS ANALYST.CONFLICTS ANALYST DATE of SERVICE: 04/19/2019 TIME of SERVICE: 11:16 AM CHECKED BY: Moderate protein-calorie malnutrition 04/12/2019 10/02/2020 Overview: History: Post-op problem. Albumin 2.9. Noted on post-op nutrition screen. Assessment: 75% of meals consumed per I/O. Plan: Follow nutrition recs. Last Assessment & Plan: - nutrition referral Parkinson's disease 03/04/2019 06/11/2019 Overview: History: Takes Sinement at home Assessment: Stable postop Plan: Resume home regimen. Last Assessment & Plan: Assessment: on Sinemet PLAN: - cont home meds Acute kidney injury 03/04/2019 03/06/2019 Last Assessment & Plan: Assessment: - noted to have HILARIO at OSH with Cr of 1.31 on presentation, improved with fluids - likely related to blood loss RESOLVED PLAN: - monitor - avoid nephrotoxins - renally dose meds Elevated troponin 12/06/2018 12/23/2018 Last Assessment & Plan: No chest pain. EKG - NSR, LVH, LAD Plan: repeat EKG and troponin Trend troponin if remains elevated here GI bleed 12/05/2018 12/23/2018 Last Assessment & Plan: Acute blood loss anemia likely from GI bleed. EGD, colonoscopy - no source of bleeding identify. CT angio Abd aorta + Iliofemoral: Enhancing polypoid lesion within the 1st segment of the duodenum concerning for slowly bleeding mass. Plan: type and screen Blood transfusion consent was taken Monitor CBC q8h for now Transfuse if Hb <7 GI consult in am Continue with PPI bid Hold ASA and other NSAID 12/[address] Bonilla's team for transgastric endoscopy + possible resection of remnant/dudenal first part if needed requested cardiology input due to severe as appreciate their input 12/19 OR on 12/21 npo at 1 am on 12/21 12/21 100 ml of periop bleed found a bleeding du and clipped saw in recovery room groggy coming out of anesthesia 2 hours procedure weaned ot 50% vm in hte theatre and brought to pacu on 2 liters out ot floor in an hour ODELL (iron deficiency anemia) 12/05/2018 Last Assessment & Plan: Assessment: most recent labs show normal H/H, but does take Ferrous sulfate Postoperative hypertension 04/26 Overview: History: 04/22/2019: AVR Assessment: Requiring NTG infusion postop Plan: Titrate to maintain MAPs 65-75. Last Assessment & Plan: Home meds: losartan 50 - was on losartan-hctz prior to December admission stable PLAN: - hold in setting of ?GI bleed Depression 12/23/2018 Last Assessment & Plan: No suicidal or homicidal ideation. Stable. Continue with Citalopram documented as of this encounter (statuses as of 09/03/2021) [facility]07-29-2020 History of Past illness Narrative* Problem Noted Date Resolved Date Other pancytopenia 01/01/2020 03/27/2020 Transition of care performed with sharing of clinical summary 04/30/2019 03/27/2020 Overview: Indication for Surgery: Prosthetic aortic valve endocarditis Preop LVEF: 75% RVF: Normal Postop LVEF: Normal RVF: Normal Cath: mild non obsx CAD Cards: [facility] EKG: NSR w/ 1st degree Important/Relevant PMH/PSH: 73F from [facility] with GERD, depression, HTN, gastric bypass, PUD with recent GIB, nephrolithiasis, s/p AVR 2002 admitted with prosthetic valve endocarditis c/b severe AI, posterior root abscess, Parkinsons, CKD, overactive bladder Preoperative Hospital Course Admitted 04/10 with severe aortic insufficiency related to endocarditis Airway Difficulty: Grade I - easy Pacing wires: No. A/V pulled 04/30 Chronological list of Surgeries and Major Events 04/22/2019: Redo AVR, MVr_ 04/29/2019: PPM placement A/P of Major Active ICU Problems Cardiac: EP following for pacer dependency with ventricular rate <30 underneath. Continue DDD 80, mA 10, 5. Formal echo 04/26 showed EF 75%, RV normal. NPO, plan for PPM today. Renal:CKD-- SrCr 0.89, downtrending. Avoid nephrotoxic agents, trend fluid balance and electrolytes. 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 Continue ceftriaxone. Transferred to floor 04/29/19 To do or to watch: Access: Right arm PICC placed 04/30. - POD#7. No tubes/wires. AV paced. On room air. - s/p Redo AVR, MVr for IE: Surg path reviewed. Bacterial PCR + Streptococcus mutans. ID following. PICC placed 04/30. CoPat started. Continue Ceftriaxone through 06/03. Post-op echo completed 04/26: EF 75%, trace Mr, trivial-small pericardial effusion. - s/p PPM: Device check completed 04/30. - FVO: Up 3.7kg. Continue lasix - Dispo: 73 yo female from [place], [place]. Daughter can help. SW following. PT/OT rec home PT/OT; HHC for IV antibiotics. Face-to face ordered. Should be ready for dc when accepting facility found. [facility] f/u scheduled. [facility] OPD f/u requested. Discharge Planning: Anticipated Discharge Date: 05/01/2019 if HHC arranged. Barriers to Discharge: Other: accepting home care agency and - In Process Care Management Discharge Needs: Needs Prior to Discharge: Accepting Facility;IV Antibiotics Discharge planning issues 04/30/20192019 Overview: 73 yo female from [place], [place]. Daughter can help. SW following. PT/OT rec home PT/OT; HHC for IV antibiotics. Face-to face ordered. Should be ready for dc when accepting facility found. Thrombocytopenia 04/24/2019 04/26/2019 On mechanically assisted ventilation 04/22/2019 04/23/2019 Overview: History: Post op cardiac surgery requiring elective intubation Assessment: Grade I airway Plan: WTE Post-operative pain 04/22/2019 05/01/2019 Overview: History: 04/22/2019: AVR Assessment: Pain control adequate Plan: Continue scheduled Tylenol and prn oxycodone and tramadol. Preop testing 04/19/2019 04/30/2019 Overview: Date of Consult: 04/12 Type of surgery: Redo AVR/root +/- MVr Date preop tests completed:April 19, 2019 Waiting on: Date Surgeon reviewed Patient: 04/18 Patient work up completed: Waiting on: Date of decision by Surgeon: April 19, 2019 Deemed candidate: Yes Date of surgery: 04/22 Reasons for delay: na [facility] and [facility] PRE-OP CHECKLIST Surgeon: Dr. Forrest Rios Informed Consent Completed: pending STS Score: RISK SCORES Procedure: Isolated AVR CALCULATE Risk of Mortality: 4.605% Renal Failure: 3.404% Permanent Stroke: 2.380% Prolonged Ventilation: 22.071% DSW Infection: 0.035% Reoperation: 7.729% Morbidity or Mortality: 27.681% Short Length of Stay: 12.366% Long Length of Stay: 20.018% CAD: No Is intended procedure a CABG: No - H & P completed: Yes PA/LAT: Completed CT: Completed MRI: N/A LE US: N/A Cath: Yes - reviewed: Yes EKG: Completed Is patient on Amiodarone? Yes Echo:Completed EF %: 70 PI's: N/A Carotid: Completed Mapping: N/A Dental: Completed PFT's: Completed CBC, Coags, BMP, Mg, Phos Recent Labs 04/19/19 0507 04/18/19 0800 04/18/19 0455 04/17/19 0511 WBC 7.49 8.34 7.77 7.81 HB 7.9* 8.2* 7.3* 8.4* HCT 24.7* 25.7* 23.6* 26.5* PLT 144* 151 137* 155 NA 135* -- 134* 134* K 4.5 -- 4.4 4.4 CHLOR 103 -- 102 102 CO2 20* -- 23 22 BUN 37* -- 34* 27* CREAT 1.05* -- 1.03* 1.01* GLUC 83 -- 80 77 CA 8.2* -- 8.3* 8.2* MG 2.0 -- 2.0 1.9 UA: Normal HCG:N/A ABO/ABO Confirmed: Yes Blood ordered: Yes POS ABS 4units Willing to accept blood: Yes SA Swab: Yes - results: Pending Last Dose of Anticoagulation: none Op Note: Yes with Dr. Rios Pacemaker Check: No Implants: no Consults: ID, GI DM: No Cardiac Surgical prep: Yes SIGNATURE: Myrna Car RN LABOR RELATIONS ANALYST.CONFLICTS ANALYST DATE of SERVICE: 04/19/2019 TIME of SERVICE: 11:16 AM CHECKED BY: Moderate protein-calorie malnutrition 04/12/2019 10/02/2020 Overview: History: Post-op problem. Albumin 2.9. Noted on post-op nutrition screen. Assessment: 75% of meals consumed per I/O. Plan: Follow nutrition recs. Last Assessment & Plan: - nutrition referral Parkinson's disease 03/04/2019 06/11/2019 Overview: History: Takes Sinement at home Assessment: Stable postop Plan: Resume home regimen. Last Assessment & Plan: Assessment: on Sinemet PLAN: - cont home meds Acute kidney injury 03/04/2019 03/06/2019 Last Assessment & Plan: Assessment: - noted to have HILARIO at OSH with Cr of 1.31 on presentation, improved with fluids - likely related to blood loss RESOLVED PLAN: - monitor - avoid nephrotoxins - renally dose meds Elevated troponin 12/06/2018 12/23/2018 Last Assessment & Plan: No chest pain. EKG - NSR, LVH, LAD Plan: repeat EKG and troponin Trend troponin if remains elevated here GI bleed 12/05/2018 12/23/2018 Last Assessment & Plan: Acute blood loss anemia likely from GI bleed. EGD, colonoscopy - no source of bleeding identify. CT angio Abd aorta + Iliofemoral: Enhancing polypoid lesion within the 1st segment of the duodenum concerning for slowly bleeding mass. Plan: type and screen Blood transfusion consent was taken Monitor CBC q8h for now Transfuse if Hb <7 GI consult in am Continue with PPI bid Hold ASA and other NSAID 12/[address] Bonilla's team for transgastric endoscopy + possible resection of remnant/dudenal first part if needed requested cardiology input due to severe as appreciate their input 12/19 OR on 12/21 npo at 1 am on 12/21 12/21 100 ml of periop bleed found a bleeding du and clipped saw in recovery room groggy coming out of anesthesia 2 hours procedure weaned ot 50% vm in hte theatre and brought to pacu on 2 liters out ot floor in an hour ODELL (iron deficiency anemia) 12/05/2018 Last Assessment & Plan: Assessment: most recent labs show normal H/H, but does take Ferrous sulfate Postoperative hypertension 04/26 Overview: History: 04/22/2019: AVR Assessment: Requiring NTG infusion postop Plan: Titrate to maintain MAPs 65-75. Last Assessment & Plan: Home meds: losartan 50 - was on losartan-hctz prior to December admission stable PLAN: - hold in setting of ?GI bleed Depression 12/23/2018 Last Assessment & Plan: No suicidal or homicidal ideation. Stable. Continue with Citalopram documented as of this encounter (statuses as of 09/06/2021) [facility]07-29-2020 History of Past illness Narrative* Problem Noted Date Resolved Date Other pancytopenia 01/01/2020 03/27/2020 Transition of care performed with sharing of clinical summary 04/30/2019 03/27/2020 Overview: Indication for Surgery: Prosthetic aortic valve endocarditis Preop LVEF: 75% RVF: Normal Postop LVEF: Normal RVF: Normal Cath: mild non obsx CAD Cards: [facility] EKG: NSR w/ 1st degree Important/Relevant PMH/PSH: 73F from [facility] with GERD, depression, HTN, gastric bypass, PUD with recent GIB, nephrolithiasis, s/p AVR 2002 admitted with prosthetic valve endocarditis c/b severe AI, posterior root abscess, Parkinsons, CKD, overactive bladder Preoperative Hospital Course Admitted 04/10 with severe aortic insufficiency related to endocarditis Airway Difficulty: Grade I - easy Pacing wires: No. A/V pulled 04/30 Chronological list of Surgeries and Major Events 04/22/2019: Redo AVR, MVr_ 04/29/2019: PPM placement A/P of Major Active ICU Problems Cardiac: EP following for pacer dependency with ventricular rate <30 underneath. Continue DDD 80, mA 10, 5. Formal echo 04/26 showed EF 75%, RV normal. NPO, plan for PPM today. Renal:CKD-- SrCr 0.89, downtrending. Avoid nephrotoxic agents, trend fluid balance and electrolytes. 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 Continue ceftriaxone. Transferred to floor 04/29/19 To do or to watch: Access: Right arm PICC placed 04/30. - POD#7. No tubes/wires. AV paced. On room air. - s/p Redo AVR, MVr for IE: Surg path reviewed. Bacterial PCR + Streptococcus mutans. ID following. PICC placed 04/30. CoPat started. Continue Ceftriaxone through 06/03. Post-op echo completed 04/26: EF 75%, trace Mr, trivial-small pericardial effusion. - s/p PPM: Device check completed 04/30. - FVO: Up 3.7kg. Continue lasix - Dispo: 73 yo female from [place], [place]. Daughter can help. SW following. PT/OT rec home PT/OT; HHC for IV antibiotics. Face-to face ordered. Should be ready for dc when accepting facility found. [facility] f/u scheduled. [facility] OPD f/u requested. Discharge Planning: Anticipated Discharge Date: 05/01/2019 if HHC arranged. Barriers to Discharge: Other: accepting home care agency and - In Process Care Management Discharge Needs: Needs Prior to Discharge: Accepting Facility;IV Antibiotics Discharge planning issues 04/30/20192019 Overview: 73 yo female from [place], [place]. Daughter can help. SW following. PT/OT rec home PT/OT; HHC for IV antibiotics. Face-to face ordered. Should be ready for dc when accepting facility found. Thrombocytopenia 04/24/2019 04/26/2019 On mechanically assisted ventilation 04/22/2019 04/23/2019 Overview: History: Post op cardiac surgery requiring elective intubation Assessment: Grade I airway Plan: WTE Post-operative pain 04/22/2019 05/01/2019 Overview: History: 04/22/2019: AVR Assessment: Pain control adequate Plan: Continue scheduled Tylenol and prn oxycodone and tramadol. Preop testing 04/19/2019 04/30/2019 Overview: Date of Consult: 04/12 Type of surgery: Redo AVR/root +/- MVr Date preop tests completed:April 19, 2019 Waiting on: Date Surgeon reviewed Patient: 04/18 Patient work up completed: Waiting on: Date of decision by Surgeon: April 19, 2019 Deemed candidate: Yes Date of surgery: 04/22 Reasons for delay: na [facility] and [facility] PRE-OP CHECKLIST Surgeon: Dr. Forrest Rios Informed Consent Completed: pending STS Score: RISK SCORES Procedure: Isolated AVR CALCULATE Risk of Mortality: 4.605% Renal Failure: 3.404% Permanent Stroke: 2.380% Prolonged Ventilation: 22.071% DSW Infection: 0.035% Reoperation: 7.729% Morbidity or Mortality: 27.681% Short Length of Stay: 12.366% Long Length of Stay: 20.018% CAD: No Is intended procedure a CABG: No - H & P completed: Yes PA/LAT: Completed CT: Completed MRI: N/A LE US: N/A Cath: Yes - reviewed: Yes EKG: Completed Is patient on Amiodarone? Yes Echo:Completed EF %: 70 PI's: N/A Carotid: Completed Mapping: N/A Dental: Completed PFT's: Completed CBC, Coags, BMP, Mg, Phos Recent Labs 04/19/19 0507 04/18/19 0800 04/18/19 0455 04/17/19 0511 WBC 7.49 8.34 7.77 7.81 HB 7.9* 8.2* 7.3* 8.4* HCT 24.7* 25.7* 23.6* 26.5* PLT 144* 151 137* 155 NA 135* -- 134* 134* K 4.5 -- 4.4 4.4 CHLOR 103 -- 102 102 CO2 20* -- 23 22 BUN 37* -- 34* 27* CREAT 1.05* -- 1.03* 1.01* GLUC 83 -- 80 77 CA 8.2* -- 8.3* 8.2* MG 2.0 -- 2.0 1.9 UA: Normal HCG:N/A ABO/ABO Confirmed: Yes Blood ordered: Yes POS ABS 4units Willing to accept blood: Yes SA Swab: Yes - results: Pending Last Dose of Anticoagulation: none Op Note: Yes with Dr. Rios Pacemaker Check: No Implants: no Consults: ID, GI DM: No Cardiac Surgical prep: Yes SIGNATURE: Myrna Car RN LABOR RELATIONS ANALYST.CONFLICTS ANALYST DATE of SERVICE: 04/19/2019 TIME of SERVICE: 11:16 AM CHECKED BY: Moderate protein-calorie malnutrition 04/12/2019 10/02/2020 Overview: History: Post-op problem. Albumin 2.9. Noted on post-op nutrition screen. Assessment: 75% of meals consumed per I/O. Plan: Follow nutrition recs. Last Assessment & Plan: - nutrition referral Parkinson's disease 03/04/2019 06/11/2019 Overview: History: Takes Sinement at home Assessment: Stable postop Plan: Resume home regimen. Last Assessment & Plan: Assessment: on Sinemet PLAN: - cont home meds Acute kidney injury 03/04/2019 03/06/2019 Last Assessment & Plan: Assessment: - noted to have HILARIO at OSH with Cr of 1.31 on presentation, improved with fluids - likely related to blood loss RESOLVED PLAN: - monitor - avoid nephrotoxins - renally dose meds Elevated troponin 12/06/2018 12/23/2018 Last Assessment & Plan: No chest pain. EKG - NSR, LVH, LAD Plan: repeat EKG and troponin Trend troponin if remains elevated here GI bleed 12/05/2018 12/23/2018 Last Assessment & Plan: Acute blood loss anemia likely from GI bleed. EGD, colonoscopy - no source of bleeding identify. CT angio Abd aorta + Iliofemoral: Enhancing polypoid lesion within the 1st segment of the duodenum concerning for slowly bleeding mass. Plan: type and screen Blood transfusion consent was taken Monitor CBC q8h for now Transfuse if Hb <7 GI consult in am Continue with PPI bid Hold ASA and other NSAID 12/[address] Bonilla's team for transgastric endoscopy + possible resection of remnant/dudenal first part if needed requested cardiology input due to severe as appreciate their input 12/19 OR on 12/21 npo at 1 am on 12/21 12/21 100 ml of periop bleed found a bleeding du and clipped saw in recovery room groggy coming out of anesthesia 2 hours procedure weaned ot 50% vm in hte theatre and brought to pacu on 2 liters out ot floor in an hour ODELL (iron deficiency anemia) 12/05/2018 Last Assessment & Plan: Assessment: most recent labs show normal H/H, but does take Ferrous sulfate Postoperative hypertension 04/26 Overview: History: 04/22/2019: AVR Assessment: Requiring NTG infusion postop Plan: Titrate to maintain MAPs 65-75. Last Assessment & Plan: Home meds: losartan 50 - was on losartan-hctz prior to December admission stable PLAN: - hold in setting of ?GI bleed Depression 12/23/2018 Last Assessment & Plan: No suicidal or homicidal ideation. Stable. Continue with Citalopram documented as of this encounter (statuses as of 09/06/2021) [facility]07-[facility]-2020 History of Past illness Narrative* Problem Noted Date Resolved Date Other pancytopenia 01/01/2020 03/27/2020 Transition of care performed with sharing of clinical summary 04/30/2019 03/27/2020 Overview: Indication for Surgery: Prosthetic aortic valve endocarditis Preop LVEF: 75% RVF: Normal Postop LVEF: Normal RVF: Normal Cath: mild non obsx CAD Cards: [facility] EKG: NSR w/ 1st degree Important/Relevant PMH/PSH: 73F from [place] with GERD, depression, HTN, gastric bypass, PUD with recent GIB, nephrolithiasis, s/p AVR 2002 admitted with prosthetic valve endocarditis c/b severe AI, posterior root abscess, Parkinsons, CKD, overactive bladder Preoperative Hospital Course Admitted 04/10 with severe aortic insufficiency related to endocarditis Airway Difficulty: Grade I - easy Pacing wires: No. A/V pulled 04/30 Chronological list of Surgeries and Major Events 04/22/2019: Redo AVR, MVr_ 04/29/2019: PPM placement A/P of Major Active ICU Problems Cardiac: EP following for pacer dependency with ventricular rate <30 underneath. Continue DDD 80, mA 10, 5. Formal echo 04/26 showed EF 75%, RV normal. NPO, plan for PPM today. Renal:CKD-- SrCr 0.89, downtrending. Avoid nephrotoxic agents, trend fluid balance and electrolytes. 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 Continue ceftriaxone. Transferred to floor 04/29/19 To do or to watch: Access: Right arm PICC placed 04/30. - POD#7. No tubes/wires. AV paced. On room air. - s/p Redo AVR, MVr for IE: Surg path reviewed. Bacterial PCR + Streptococcus mutans. ID following. PICC placed 04/30. CoPat started. Continue Ceftriaxone through 06/03. Post-op echo completed 04/26: EF 75%, trace Mr, trivial-small pericardial effusion. - s/p PPM: Device check completed 04/30. - FVO: Up 3.7kg. Continue lasix - Dispo: 73 yo female from [place], [place]. Daughter can help. SW following. PT/OT rec home PT/OT; HHC for IV antibiotics. Face-to face ordered. Should be ready for dc when accepting facility found. [facility] f/u scheduled. [facility] OPD f/u requested. Discharge Planning: Anticipated Discharge Date: 05/01/2019 if HHC arranged. Barriers to Discharge: Other: accepting home care agency and - In Process Care Management Discharge Needs: Needs Prior to Discharge: Accepting Facility;IV Antibiotics Discharge planning issues 04/30/20192019 Overview: 73 yo female from [place], [place]. Daughter can help. SW following. PT/OT rec home PT/OT; HHC for IV antibiotics. Face-to face ordered. Should be ready for dc when accepting facility found. Thrombocytopenia 04/24/2019 04/26/2019 On mechanically assisted ventilation 04/22/2019 04/23/2019 Overview: History: Post op cardiac surgery requiring elective intubation Assessment: Grade I airway Plan: WTE Post-operative pain 04/22/2019 05/01/2019 Overview: History: 04/22/2019: AVR Assessment: Pain control adequate Plan: Continue scheduled Tylenol and prn oxycodone and tramadol. Preop testing 04/19/2019 04/30/2019 Overview: Date of Consult: 04/12 Type of surgery: Redo AVR/root +/- MVr Date preop tests completed:April 19, 2019 Waiting on: Date Surgeon reviewed Patient: 04/18 Patient work up completed: Waiting on: Date of decision by Surgeon: April 19, 2019 Deemed candidate: Yes Date of surgery: 04/22 Reasons for delay: na [facility]ART and [facility] PRE-OP CHECKLIST Surgeon: Dr. Forrest Rios Informed Consent Completed: pending STS Score: RISK SCORES Procedure: Isolated AVR CALCULATE Risk of Mortality: 4.605% Renal Failure: 3.404% Permanent Stroke: 2.380% Prolonged Ventilation: 22.071% DSW Infection: 0.035% Reoperation: 7.729% Morbidity or Mortality: 27.681% Short Length of Stay: 12.366% Long Length of Stay: 20.018% CAD: No Is intended procedure a CABG: No - H & P completed: Yes PA/LAT: Completed CT: Completed MRI: N/A LE US: N/A Cath: Yes - reviewed: Yes EKG: Completed Is patient on Amiodarone? Yes Echo:Completed EF %: 70 PI's: N/A Carotid: Completed Mapping: N/A Dental: Completed PFT's: Completed CBC, Coags, BMP, Mg, Phos Recent Labs 04/19/19 0507 04/18/19 0800 04/18/19 0455 04/17/19 0511 WBC 7.49 8.34 7.77 7.81 HB 7.9* 8.2* 7.3* 8.4* HCT 24.7* 25.7* 23.6* 26.5* PLT 144* 151 137* 155 NA 135* -- 134* 134* K 4.5 -- 4.4 4.4 CHLOR 103 -- 102 102 CO2 20* -- 23 22 BUN 37* -- 34* 27* CREAT 1.05* -- 1.03* 1.01* GLUC 83 -- 80 77 CA 8.2* -- 8.3* 8.2* MG 2.0 -- 2.0 1.9 UA: Normal HCG:N/A ABO/ABO Confirmed: Yes Blood ordered: Yes POS ABS 4units Willing to accept blood: Yes SA Swab: Yes - results: Pending Last Dose of Anticoagulation: none Op Note: Yes with Dr. Rios Pacemaker Check: No Implants: no Consults: ID, GI DM: No Cardiac Surgical prep: Yes SIGNATURE: Myrna Car RN LABOR RELATIONS ANALYST.CONFLICTS ANALYST DATE of SERVICE: 04/19/2019 TIME of SERVICE: 11:16 AM CHECKED BY: Moderate protein-calorie malnutrition 04/12/2019 10/02/2020 Overview: History: Post-op problem. Albumin 2.9. Noted on post-op nutrition screen. Assessment: 75% of meals consumed per I/O. Plan: Follow nutrition recs. Last Assessment & Plan: - nutrition referral Parkinson's disease 03/04/2019 06/11/2019 Overview: History: Takes Sinement at home Assessment: Stable postop Plan: Resume home regimen. Last Assessment & Plan: Assessment: on Sinemet PLAN: - cont home meds Acute kidney injury 03/04/2019 03/06/2019 Last Assessment & Plan: Assessment: - noted to have HILARIO at OSH with Cr of 1.31 on presentation, improved with fluids - likely related to blood loss RESOLVED PLAN: - monitor - avoid nephrotoxins - renally dose meds Elevated troponin 12/06/2018 12/23/2018 Last Assessment & Plan: No chest pain. EKG - NSR, LVH, LAD Plan: repeat EKG and troponin Trend troponin if remains elevated here GI bleed 12/05/2018 12/23/2018 Last Assessment & Plan: Acute blood loss anemia likely from GI bleed. EGD, colonoscopy - no source of bleeding identify. CT angio Abd aorta + Iliofemoral: Enhancing polypoid lesion within the 1st segment of the duodenum concerning for slowly bleeding mass. Plan: type and screen Blood transfusion consent was taken Monitor CBC q8h for now Transfuse if Hb <7 GI consult in am Continue with PPI bid Hold ASA and other NSAID 12/[address] Bonilla's team for transgastric endoscopy + possible resection of remnant/dudenal first part if needed requested cardiology input due to severe as appreciate their input 12/19 OR on 12/21 npo at 1 am on 12/21 12/21 100 ml of periop bleed found a bleeding du and clipped saw in recovery room groggy coming out of anesthesia 2 hours procedure weaned ot 50% vm in hte theatre and brought to pacu on 2 liters out ot floor in an hour ODELL (iron deficiency anemia) 12/05/2018 Last Assessment & Plan: Assessment: most recent labs show normal H/H, but does take Ferrous sulfate Postoperative hypertension 04/26 Overview: History: 04/22/2019: AVR Assessment: Requiring NTG infusion postop Plan: Titrate to maintain MAPs 65-75. Last Assessment & Plan: Home meds: losartan 50 - was on losartan-hctz prior to December admission stable PLAN: - hold in setting of ?GI bleed Depression 12/23/2018 Last Assessment & Plan: No suicidal or homicidal ideation. Stable. Continue with Citalopram documented as of this encounter (statuses as of 09/13/2021) [facility] History of Past illness Narrative* Problem Noted Date Resolved Date Other pancytopenia 01/01/2020 03/27/2020 Transition of care performed with sharing of clinical summary 04/30/2019 03/27/2020 Overview: Indication for Surgery: Prosthetic aortic valve endocarditis Preop LVEF: 75% RVF: Normal Postop LVEF: Normal RVF: Normal Cath: mild non obsx CAD Cards: [facility] EKG: NSR w/ 1st degree Important/Relevant PMH/PSH: 73F from [facility] with GERD, depression, HTN, gastric bypass, PUD with recent GIB, nephrolithiasis, s/p AVR 2002 admitted with prosthetic valve endocarditis c/b severe AI, posterior root abscess, Parkinsons, CKD, overactive bladder Preoperative Hospital Course Admitted 04/10 with severe aortic insufficiency related to endocarditis Airway Difficulty: Grade I - easy Pacing wires: No. A/V pulled 04/30 Chronological list of Surgeries and Major Events 04/22/2019: Redo AVR, MVr_ 04/29/2019: PPM placement A/P of Major Active ICU Problems Cardiac: EP following for pacer dependency with ventricular rate <30 underneath. Continue DDD 80, mA 10, 5. Formal echo 04/26 showed EF 75%, RV normal. NPO, plan for PPM today. Renal:CKD-- SrCr 0.89, downtrending. Avoid nephrotoxic agents, trend fluid balance and electrolytes. 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 Continue ceftriaxone. Transferred to floor 04/29/19 To do or to watch: Access: Right arm PICC placed 04/30. - POD#7. No tubes/wires. AV paced. On room air. - s/p Redo AVR, MVr for IE: Surg path reviewed. Bacterial PCR + Streptococcus mutans. ID following. PICC placed 04/30. CoPat started. Continue Ceftriaxone through 06/03. Post-op echo completed 04/26: EF 75%, trace Mr, trivial-small pericardial effusion. - s/p PPM: Device check completed 04/30. - FVO: Up 3.7kg. Continue lasix - Dispo: 73 yo female from [place], [place]. Daughter can help. SW following. PT/OT rec home PT/OT; HHC for IV antibiotics. Face-to face ordered. Should be ready for dc when accepting facility found. [facility] f/u scheduled. [facility] f/u requested. Discharge Planning: Anticipated Discharge Date: 05/01/2019 if HHC arranged. Barriers to Discharge: Other: accepting home care agency and - In Process Care Management Discharge Needs: Needs Prior to Discharge: Accepting Facility;IV Antibiotics Discharge planning issues 04/30/20192019 Overview: 73 yo female from [place], [place]. Daughter can help. SW following. PT/OT rec home PT/OT; HHC for IV antibiotics. Face-to face ordered. Should be ready for dc when accepting facility found. Thrombocytopenia 04/24/2019 04/26/2019 On mechanically assisted ventilation 04/22/2019 04/23/2019 Overview: History: Post op cardiac surgery requiring elective intubation Assessment: Grade I airway Plan: WTE Post-operative pain 04/22/2019 05/01/2019 Overview: History: 04/22/2019: AVR Assessment: Pain control adequate Plan: Continue scheduled Tylenol and prn oxycodone and tramadol. Preop testing 04/19/2019 04/30/2019 Overview: Date of Consult: 04/12 Type of surgery: Redo AVR/root +/- MVr Date preop tests completed:April 19, 2019 Waiting on: Date Surgeon reviewed Patient: 04/18 Patient work up completed: Waiting on: Date of decision by Surgeon: April 19, 2019 Deemed candidate: Yes Date of surgery: 04/22 Reasons for delay: na [facility] PRE-OP CHECKLIST Surgeon: Dr. Forrest Rios Informed Consent Completed: pending STS Score: RISK SCORES Procedure: Isolated AVR CALCULATE Risk of Mortality: 4.605% Renal Failure: 3.404% Permanent Stroke: 2.380% Prolonged Ventilation: 22.071% DSW Infection: 0.035% Reoperation: 7.729% Morbidity or Mortality: 27.681% Short Length of Stay: 12.366% Long Length of Stay: 20.018% CAD: No Is intended procedure a CABG: No - H & P completed: Yes PA/LAT: Completed CT: Completed MRI: N/A LE US: N/A Cath: Yes - reviewed: Yes EKG: Completed Is patient on Amiodarone? Yes Echo:Completed EF %: 70 PI's: N/A Carotid: Completed Mapping: N/A Dental: Completed PFT's: Completed CBC, Coags, BMP, Mg, Phos Recent Labs 04/19/19 0507 04/18/19 0800 04/18/19 0455 04/17/19 0511 WBC 7.49 8.34 7.77 7.81 HB 7.9* 8.2* 7.3* 8.4* HCT 24.7* 25.7* 23.6* 26.5* PLT 144* 151 137* 155 NA 135* -- 134* 134* K 4.5 -- 4.4 4.4 CHLOR 103 -- 102 102 CO2 20* -- 23 22 BUN 37* -- 34* 27* CREAT 1.05* -- 1.03* 1.01* GLUC 83 -- 80 77 CA 8.2* -- 8.3* 8.2* MG 2.0 -- 2.0 1.9 UA: Normal HCG:N/A ABO/ABO Confirmed: Yes Blood ordered: Yes POS ABS 4units Willing to accept blood: Yes SA Swab: Yes - results: Pending Last Dose of Anticoagulation: none Op Note: Yes with Dr. Rios Pacemaker Check: No Implants: no Consults: ID, GI DM: No Cardiac Surgical prep: Yes SIGNATURE: Myrna Car RN LABOR RELATIONS ANALYST.CONFLICTS ANALYST DATE of SERVICE: 04/19/2019 TIME of SERVICE: 11:16 AM CHECKED BY: Moderate protein-calorie malnutrition 04/12/2019 10/02/2020 Overview: History: Post-op problem. Albumin 2.9. Noted on post-op nutrition screen. Assessment: 75% of meals consumed per I/O. Plan: Follow nutrition recs. Last Assessment & Plan: - nutrition referral Parkinson's disease 03/04/2019 06/11/2019 Overview: History: Takes Sinement at home Assessment: Stable postop Plan: Resume home regimen. Last Assessment & Plan: Assessment: on Sinemet PLAN: - cont home meds Acute kidney injury 03/04/2019 03/06/2019 Last Assessment & Plan: Assessment: - noted to have HILARIO at OSH with Cr of 1.31 on presentation, improved with fluids - likely related to blood loss RESOLVED PLAN: - monitor - avoid nephrotoxins - renally dose meds Elevated troponin 12/06/2018 12/23/2018 Last Assessment & Plan: No chest pain. EKG - NSR, LVH, LAD Plan: repeat EKG and troponin Trend troponin if remains elevated here GI bleed 12/05/2018 12/23/2018 Last Assessment & Plan: Acute blood loss anemia likely from GI bleed. EGD, colonoscopy - no source of bleeding identify. CT angio Abd aorta + Iliofemoral: Enhancing polypoid lesion within the 1st segment of the duodenum concerning for slowly bleeding mass. Plan: type and screen Blood transfusion consent was taken Monitor CBC q8h for now Transfuse if Hb <7 GI consult in am Continue with PPI bid Hold ASA and other NSAID 12/[address] Bonilla's team for transgastric endoscopy + possible resection of remnant/dudenal first part if needed requested cardiology input due to severe as appreciate their input 12/19 OR on 12/21 npo at 1 am on 12/21 12/21 100 ml of periop bleed found a bleeding du and clipped saw in recovery room groggy coming out of anesthesia 2 hours procedure weaned ot 50% vm in hte theatre and brought to pacu on 2 liters out ot floor in an hour ODELL (iron deficiency anemia) 12/05/2018 Last Assessment & Plan: Assessment: most recent labs show normal H/H, but does take Ferrous sulfate Postoperative hypertension 04/26 Overview: History: 04/22/2019: AVR Assessment: Requiring NTG infusion postop Plan: Titrate to maintain MAPs 65-75. Last Assessment & Plan: Home meds: losartan 50 - was on losartan-hctz prior to December admission stable PLAN: - hold in setting of ?GI bleed Depression 12/23/2018 Last Assessment & Plan: No suicidal or homicidal ideation. Stable. Continue with Citalopram documented as of this encounter (statuses as of 09/30/2021) [facility]07-29-2020 History of Past illness Narrative* Problem Noted Date Resolved Date Other pancytopenia 01/01/2020 03/27/2020 Transition of care performed with sharing of clinical summary 04/30/2019 03/27/2020 Overview: Indication for Surgery: Prosthetic aortic valve endocarditis Preop LVEF: 75% RVF: Normal Postop LVEF: Normal RVF: Normal Cath: mild non obsx CAD Cards: [facility] EKG: NSR w/ 1st degree Important/Relevant PMH/PSH: 73F from [facility] with GERD, depression, HTN, gastric bypass, PUD with recent GIB, nephrolithiasis, s/p AVR 2002 admitted with prosthetic valve endocarditis c/b severe AI, posterior root abscess, Parkinsons, CKD, overactive bladder Preoperative Hospital Course Admitted 04/10 with severe aortic insufficiency related to endocarditis Airway Difficulty: Grade I - easy Pacing wires: No. A/V pulled 04/30 Chronological list of Surgeries and Major Events 04/22/2019: Redo AVR, MVr_ 04/29/2019: PPM placement A/P of Major Active ICU Problems Cardiac: EP following for pacer dependency with ventricular rate <30 underneath. Continue DDD 80, mA 10, 5. Formal echo 04/26 showed EF 75%, RV normal. NPO, plan for PPM today. Renal:CKD-- SrCr 0.89, downtrending. Avoid nephrotoxic agents, trend fluid balance and electrolytes. 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 Continue ceftriaxone. Transferred to floor 04/29/19 To do or to watch: Access: Right arm PICC placed 04/30. - POD#7. No tubes/wires. AV paced. On room air. - s/p Redo AVR, MVr for IE: Surg path reviewed. Bacterial PCR + Streptococcus mutans. ID following. PICC placed 04/30. CoPat started. Continue Ceftriaxone through 06/03. Post-op echo completed 04/26: EF 75%, trace Mr, trivial-small pericardial effusion. - s/p PPM: Device check completed 04/30. - FVO: Up 3.7kg. Continue lasix - Dispo: 73 yo female from [place], [place]. Daughter can help. SW following. PT/OT rec home PT/OT; HHC for IV antibiotics. Face-to face ordered. Should be ready for dc when accepting facility found. [facility] f/u scheduled. [facility] OPD f/u requested. Discharge Planning: Anticipated Discharge Date: 05/01/2019 if HHC arranged. Barriers to Discharge: Other: accepting home care agency and - In Process Care Management Discharge Needs: Needs Prior to Discharge: Accepting Facility;IV Antibiotics Discharge planning issues 04/30/20192019 Overview: 73 yo female from [place], [place]. Daughter can help. SW following. PT/OT rec home PT/OT; HHC for IV antibiotics. Face-to face ordered. Should be ready for dc when accepting facility found. Thrombocytopenia 04/24/2019 04/26/2019 On mechanically assisted ventilation 04/22/2019 04/23/2019 Overview: History: Post op cardiac surgery requiring elective intubation Assessment: Grade I airway Plan: WTE Post-operative pain 04/22/2019 05/01/2019 Overview: History: 04/22/2019: AVR Assessment: Pain control adequate Plan: Continue scheduled Tylenol and prn oxycodone and tramadol. Preop testing 04/19/2019 04/30/2019 Overview: Date of Consult: 04/12 Type of surgery: Redo AVR/root +/- MVr Date preop tests completed:April 19, 2019 Waiting on: Date Surgeon reviewed Patient: 04/18 Patient work up completed: Waiting on: Date of decision by Surgeon: April 19, 2019 Deemed candidate: Yes Date of surgery: 04/22 Reasons for delay: na [facility] and [facility] PRE-OP CHECKLIST Surgeon: Dr. Forrest Rios Informed Consent Completed: pending STS Score: RISK SCORES Procedure: Isolated AVR CALCULATE Risk of Mortality: 4.605% Renal Failure: 3.404% Permanent Stroke: 2.380% Prolonged Ventilation: 22.071% DSW Infection: 0.035% Reoperation: 7.729% Morbidity or Mortality: 27.681% Short Length of Stay: 12.366% Long Length of Stay: 20.018% CAD: No Is intended procedure a CABG: No - H & P completed: Yes PA/LAT: Completed CT: Completed MRI: N/A LE US: N/A Cath: Yes - reviewed: Yes EKG: Completed Is patient on Amiodarone? Yes Echo:Completed EF %: 70 PI's: N/A Carotid: Completed Mapping: N/A Dental: Completed PFT's: Completed CBC, Coags, BMP, Mg, Phos Recent Labs 04/19/19 0507 04/18/19 0800 04/18/19 0455 04/17/19 0511 WBC 7.49 8.34 7.77 7.81 HB 7.9* 8.2* 7.3* 8.4* HCT 24.7* 25.7* 23.6* 26.5* PLT 144* 151 137* 155 NA 135* -- 134* 134* K 4.5 -- 4.4 4.4 CHLOR 103 -- 102 102 CO2 20* -- 23 22 BUN 37* -- 34* 27* CREAT 1.05* -- 1.03* 1.01* GLUC 83 -- 80 77 CA 8.2* -- 8.3* 8.2* MG 2.0 -- 2.0 1.9 UA: Normal HCG:N/A ABO/ABO Confirmed: Yes Blood ordered: Yes POS ABS 4units Willing to accept blood: Yes SA Swab: Yes - results: Pending Last Dose of Anticoagulation: none Op Note: Yes with Dr. Rios Pacemaker Check: No Implants: no Consults: ID, GI DM: No Cardiac Surgical prep: Yes SIGNATURE: Myrna Car RN LABOR RELATIONS ANALYST.CONFLICTS ANALYST DATE of SERVICE: 04/19/2019 TIME of SERVICE: 11:16 AM CHECKED BY: Moderate protein-calorie malnutrition 04/12/2019 10/02/2020 Overview: History: Post-op problem. Albumin 2.9. Noted on post-op nutrition screen. Assessment: 75% of meals consumed per I/O. Plan: Follow nutrition recs. Last Assessment & Plan: - nutrition referral Parkinson's disease 03/04/2019 06/11/2019 Overview: History: Takes Sinement at home Assessment: Stable postop Plan: Resume home regimen. Last Assessment & Plan: Assessment: on Sinemet PLAN: - cont home meds Acute kidney injury 03/04/2019 03/06/2019 Last Assessment & Plan: Assessment: - noted to have HILARIO at OSH with Cr of 1.31 on presentation, improved with fluids - likely related to blood loss RESOLVED PLAN: - monitor - avoid nephrotoxins - renally dose meds Elevated troponin 12/06/2018 12/23/2018 Last Assessment & Plan: No chest pain. EKG - NSR, LVH, LAD Plan: repeat EKG and troponin Trend troponin if remains elevated here GI bleed 12/05/2018 12/23/2018 Last Assessment & Plan: Acute blood loss anemia likely from GI bleed. EGD, colonoscopy - no source of bleeding identify. CT angio Abd aorta + Iliofemoral: Enhancing polypoid lesion within the 1st segment of the duodenum concerning for slowly bleeding mass. Plan: type and screen Blood transfusion consent was taken Monitor CBC q8h for now Transfuse if Hb <7 GI consult in am Continue with PPI bid Hold ASA and other NSAID 12/[address] Bonilla's team for transgastric endoscopy + possible resection of remnant/dudenal first part if needed requested cardiology input due to severe as appreciate their input 12/19 OR on 12/21 npo at 1 am on 12/21 12/21 100 ml of periop bleed found a bleeding du and clipped saw in recovery room groggy coming out of anesthesia 2 hours procedure weaned ot 50% vm in hte theatre and brought to pacu on 2 liters out ot floor in an hour ODELL (iron deficiency anemia) 12/05/2018 Last Assessment & Plan: Assessment: most recent labs show normal H/H, but does take Ferrous sulfate Postoperative hypertension 04/26 Overview: History: 04/22/2019: AVR Assessment: Requiring NTG infusion postop Plan: Titrate to maintain MAPs 65-75. Last Assessment & Plan: Home meds: losartan 50 - was on losartan-hctz prior to December admission stable PLAN: - hold in setting of ?GI bleed Depression 12/23/2018 Last Assessment & Plan: No suicidal or homicidal ideation. Stable. Continue with Citalopram documented as of this encounter (statuses as of 10/04/2021) [facility]07-29-2020 History of Past illness Narrative* Problem Noted Date Resolved Date Other pancytopenia 01/01/2020 03/27/2020 Transition of care performed with sharing of clinical summary 04/30/2019 03/27/2020 Overview: Indication for Surgery: Prosthetic aortic valve endocarditis Preop LVEF: 75% RVF: Normal Postop LVEF: Normal RVF: Normal Cath: mild non obsx CAD Cards: [facility] EKG: NSR w/ 1st degree Important/Relevant PMH/PSH: 73F from [facility] with GERD, depression, HTN, gastric bypass, PUD with recent GIB, nephrolithiasis, s/p AVR 2002 admitted with prosthetic valve endocarditis c/b severe AI, posterior root abscess, Parkinsons, CKD, overactive bladder Preoperative Hospital Course Admitted 04/10 with severe aortic insufficiency related to endocarditis Airway Difficulty: Grade I - easy Pacing wires: No. A/V pulled 04/30 Chronological list of Surgeries and Major Events 04/22/2019: Redo AVR, MVr_ 04/29/2019: PPM placement A/P of Major Active ICU Problems Cardiac: EP following for pacer dependency with ventricular rate <30 underneath. Continue DDD 80, mA 10, 5. Formal echo 04/26 showed EF 75%, RV normal. NPO, plan for PPM today. Renal:CKD-- SrCr 0.89, downtrending. Avoid nephrotoxic agents, trend fluid balance and electrolytes. 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 Continue ceftriaxone. Transferred to floor 04/29/19 To do or to watch: Access: Right arm PICC placed 04/30. - POD#7. No tubes/wires. AV paced. On room air. - s/p Redo AVR, MVr for IE: Surg path reviewed. Bacterial PCR + Streptococcus mutans. ID following. PICC placed 04/30. CoPat started. Continue Ceftriaxone through 06/03. Post-op echo completed 04/26: EF 75%, trace Mr, trivial-small pericardial effusion. - s/p PPM: Device check completed 04/30. - FVO: Up 3.7kg. Continue lasix - Dispo: 73 yo female from [place], [place]. Daughter can help. SW following. PT/OT rec home PT/OT; HHC for IV antibiotics. Face-to face ordered. Should be ready for dc when accepting facility found. [facility] f/u scheduled. [facility] f/u requested. Discharge Planning: Anticipated Discharge Date: 05/01/2019 if HHC arranged. Barriers to Discharge: Other: accepting home care agency and - In Process Care Management Discharge Needs: Needs Prior to Discharge: Accepting Facility;IV Antibiotics Discharge planning issues 04/30/20192019 Overview: 73 yo female from [place], [place]. Daughter can help. SW following. PT/OT rec home PT/OT; HHC for IV antibiotics. Face-to face ordered. Should be ready for dc when accepting facility found. Thrombocytopenia 04/24/2019 04/26/2019 On mechanically assisted ventilation 04/22/2019 04/23/2019 Overview: History: Post op cardiac surgery requiring elective intubation Assessment: Grade I airway Plan: WTE Post-operative pain 04/22/2019 05/01/2019 Overview: History: 04/22/2019: AVR Assessment: Pain control adequate Plan: Continue scheduled Tylenol and prn oxycodone and tramadol. Preop testing 04/19/2019 04/30/2019 Overview: Date of Consult: 04/12 Type of surgery: Redo AVR/root +/- MVr Date preop tests completed:April 19, 2019 Waiting on: Date Surgeon reviewed Patient: 04/18 Patient work up completed: Waiting on: Date of decision by Surgeon: April 19, 2019 Deemed candidate: Yes Date of surgery: 04/22 Reasons for delay: na [facility] and [facility] PRE-OP CHECKLIST Surgeon: Dr. Forrest Rios Informed Consent Completed: pending STS Score: RISK SCORES Procedure: Isolated AVR CALCULATE Risk of Mortality: 4.605% Renal Failure: 3.404% Permanent Stroke: 2.380% Prolonged Ventilation: 22.071% DSW Infection: 0.035% Reoperation: 7.729% Morbidity or Mortality: 27.681% Short Length of Stay: 12.366% Long Length of Stay: 20.018% CAD: No Is intended procedure a CABG: No - H & P completed: Yes PA/LAT: Completed CT: Completed MRI: N/A LE US: N/A Cath: Yes - reviewed: Yes EKG: Completed Is patient on Amiodarone? Yes Echo:Completed EF %: 70 PI's: N/A Carotid: Completed Mapping: N/A Dental: Completed PFT's: Completed CBC, Coags, BMP, Mg, Phos Recent Labs 04/19/19 0507 04/18/19 0800 04/18/19 0455 04/17/19 0511 WBC 7.49 8.34 7.77 7.81 HB 7.9* 8.2* 7.3* 8.4* HCT 24.7* 25.7* 23.6* 26.5* PLT 144* 151 137* 155 NA 135* -- 134* 134* K 4.5 -- 4.4 4.4 CHLOR 103 -- 102 102 CO2 20* -- 23 22 BUN 37* -- 34* 27* CREAT 1.05* -- 1.03* 1.01* GLUC 83 -- 80 77 CA 8.2* -- 8.3* 8.2* MG 2.0 -- 2.0 1.9 UA: Normal HCG:N/A ABO/ABO Confirmed: Yes Blood ordered: Yes POS ABS 4units Willing to accept blood: Yes SA Swab: Yes - results: Pending Last Dose of Anticoagulation: none Op Note: Yes with Dr. Rios Pacemaker Check: No Implants: no Consults: ID, GI DM: No Cardiac Surgical prep: Yes SIGNATURE: Myrna Car RN LABOR RELATIONS ANALYST.CONFLICTS ANALYST DATE of SERVICE: 04/19/2019 TIME of SERVICE: 11:16 AM CHECKED BY: Moderate protein-calorie malnutrition 04/12/2019 10/02/2020 Overview: History: Post-op problem. Albumin 2.9. Noted on post-op nutrition screen. Assessment: 75% of meals consumed per I/O. Plan: Follow nutrition recs. Last Assessment & Plan: - nutrition referral Parkinson's disease 03/04/2019 06/11/2019 Overview: History: Takes Sinement at home Assessment: Stable postop Plan: Resume home regimen. Last Assessment & Plan: Assessment: on Sinemet PLAN: - cont home meds Acute kidney injury 03/04/2019 03/06/2019 Last Assessment & Plan: Assessment: - noted to have HILARIO at OSH with Cr of 1.31 on presentation, improved with fluids - likely related to blood loss RESOLVED PLAN: - monitor - avoid nephrotoxins - renally dose meds Elevated troponin 12/06/2018 12/23/2018 Last Assessment & Plan: No chest pain. EKG - NSR, LVH, LAD Plan: repeat EKG and troponin Trend troponin if remains elevated here GI bleed 12/05/2018 12/23/2018 Last Assessment & Plan: Acute blood loss anemia likely from GI bleed. EGD, colonoscopy - no source of bleeding identify. CT angio Abd aorta + Iliofemoral: Enhancing polypoid lesion within the 1st segment of the duodenum concerning for slowly bleeding mass. Plan: type and screen Blood transfusion consent was taken Monitor CBC q8h for now Transfuse if Hb <7 GI consult in am Continue with PPI bid Hold ASA and other NSAID 12/[address] Bonilal's team for transgastric endoscopy + possible resection of remnant/dudenal first part if needed requested cardiology input due to severe as appreciate their input 12/19 OR on 12/21 npo at 1 am on 12/21 12/21 100 ml of periop bleed found a bleeding du and clipped saw in recovery room groggy coming out of anesthesia 2 hours procedure weaned ot 50% vm in hte theatre and brought to pacu on 2 liters out ot floor in an hour ODELL (iron deficiency anemia) 12/05/2018 Last Assessment & Plan: Assessment: most recent labs show normal H/H, but does take Ferrous sulfate Postoperative hypertension 04/26 Overview: History: 04/22/2019: AVR Assessment: Requiring NTG infusion postop Plan: Titrate to maintain MAPs 65-75. Last Assessment & Plan: Home meds: losartan 50 - was on losartan-hctz prior to December admission stable PLAN: - hold in setting of ?GI bleed Depression 12/23/2018 Last Assessment & Plan: No suicidal or homicidal ideation. Stable. Continue with Citalopram documented as of this encounter (statuses as of 10/21/2021) [facility]07-[facility]-2020 History of Past illness Narrative* Problem Noted Date Resolved Date Other pancytopenia 01/01/2020 03/27/2020 Transition of care performed with sharing of clinical summary 04/30/2019 03/27/2020 Overview: Indication for Surgery: Prosthetic aortic valve endocarditis Preop LVEF: 75% RVF: Normal Postop LVEF: Normal RVF: Normal Cath: mild non obsx CAD Cards: [facility] EKG: NSR w/ 1st degree Important/Relevant PMH/PSH: 73F from [facility] with GERD, depression, HTN, gastric bypass, PUD with recent GIB, nephrolithiasis, s/p AVR 2002 admitted with prosthetic valve endocarditis c/b severe AI, posterior root abscess, Parkinsons, CKD, overactive bladder Preoperative Hospital Course Admitted 04/10 with severe aortic insufficiency related to endocarditis Airway Difficulty: Grade I - easy Pacing wires: No. A/V pulled 04/30 Chronological list of Surgeries and Major Events 04/22/2019: Redo AVR, MVr_ 04/29/2019: PPM placement A/P of Major Active ICU Problems Cardiac: EP following for pacer dependency with ventricular rate <30 underneath. Continue DDD 80, mA 10, 5. Formal echo 04/26 showed EF 75%, RV normal. NPO, plan for PPM today. Renal:CKD-- SrCr 0.89, downtrending. Avoid nephrotoxic agents, trend fluid balance and electrolytes. 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 Continue ceftriaxone. Transferred to floor 04/29/19 To do or to watch: Access: Right arm PICC placed 04/30. - POD#7. No tubes/wires. AV paced. On room air. - s/p Redo AVR, MVr for IE: Surg path reviewed. Bacterial PCR + Streptococcus mutans. ID following. PICC placed 04/30. CoPat started. Continue Ceftriaxone through 06/03. Post-op echo completed 04/26: EF 75%, trace Mr, trivial-small pericardial effusion. - s/p PPM: Device check completed 04/30. - FVO: Up 3.7kg. Continue lasix - Dispo: 73 yo female from [place], [place]. Daughter can help. SW following. PT/OT rec home PT/OT; HHC for IV antibiotics. Face-to face ordered. Should be ready for dc when accepting facility found. [facility] f/u scheduled. [facility] f/u requested. Discharge Planning: Anticipated Discharge Date: 05/01/2019 if HHC arranged. Barriers to Discharge: Other: accepting home care agency and - In Process Care Management Discharge Needs: Needs Prior to Discharge: Accepting Facility;IV Antibiotics Discharge planning issues 04/30/20192019 Overview: 73 yo female from [place], [place]. Daughter can help. SW following. PT/OT rec home PT/OT; HHC for IV antibiotics. Face-to face ordered. Should be ready for dc when accepting facility found. Thrombocytopenia 04/24/2019 04/26/2019 On mechanically assisted ventilation 04/22/2019 04/23/2019 Overview: History: Post op cardiac surgery requiring elective intubation Assessment: Grade I airway Plan: WTE Post-operative pain 04/22/2019 05/01/2019 Overview: History: 04/22/2019: AVR Assessment: Pain control adequate Plan: Continue scheduled Tylenol and prn oxycodone and tramadol. Preop testing 04/19/2019 04/30/2019 Overview: Date of Consult: 04/12 Type of surgery: Redo AVR/root +/- MVr Date preop tests completed:April 19, 2019 Waiting on: Date Surgeon reviewed Patient: 04/18 Patient work up completed: Waiting on: Date of decision by Surgeon: April 19, 2019 Deemed candidate: Yes Date of surgery: 04/22 Reasons for delay: na [facility] and [facility] PRE-OP CHECKLIST Surgeon: Dr. Forrest Rios Informed Consent Completed: pending STS Score: RISK SCORES Procedure: Isolated AVR CALCULATE Risk of Mortality: 4.605% Renal Failure: 3.404% Permanent Stroke: 2.380% Prolonged Ventilation: 22.071% DSW Infection: 0.035% Reoperation: 7.729% Morbidity or Mortality: 27.681% Short Length of Stay: 12.366% Long Length of Stay: 20.018% CAD: No Is intended procedure a CABG: No - H & P completed: Yes PA/LAT: Completed CT: Completed MRI: N/A LE US: N/A Cath: Yes - reviewed: Yes EKG: Completed Is patient on Amiodarone? Yes Echo:Completed EF %: 70 PI's: N/A Carotid: Completed Mapping: N/A Dental: Completed PFT's: Completed CBC, Coags, BMP, Mg, Phos Recent Labs 04/19/19 0507 04/18/19 0800 04/18/19 0455 04/17/19 0511 WBC 7.49 8.34 7.77 7.81 HB 7.9* 8.2* 7.3* 8.4* HCT 24.7* 25.7* 23.6* 26.5* PLT 144* 151 137* 155 NA 135* -- 134* 134* K 4.5 -- 4.4 4.4 CHLOR 103 -- 102 102 CO2 20* -- 23 22 BUN 37* -- 34* 27* CREAT 1.05* -- 1.03* 1.01* GLUC 83 -- 80 77 CA 8.2* -- 8.3* 8.2* MG 2.0 -- 2.0 1.9 UA: Normal HCG:N/A ABO/ABO Confirmed: Yes Blood ordered: Yes POS ABS 4units Willing to accept blood: Yes SA Swab: Yes - results: Pending Last Dose of Anticoagulation: none Op Note: Yes with Dr. Rios Pacemaker Check: No Implants: no Consults: ID, GI DM: No Cardiac Surgical prep: Yes SIGNATURE: Myrna Car RN LABOR RELATIONS ANALYST.CONFLICTS ANALYST DATE of SERVICE: 04/19/2019 TIME of SERVICE: 11:16 AM CHECKED BY: Moderate protein-calorie malnutrition 04/12/2019 10/02/2020 Overview: History: Post-op problem. Albumin 2.9. Noted on post-op nutrition screen. Assessment: 75% of meals consumed per I/O. Plan: Follow nutrition recs. Last Assessment & Plan: - nutrition referral Parkinson's disease 03/04/2019 06/11/2019 Overview: History: Takes Sinement at home Assessment: Stable postop Plan: Resume home regimen. Last Assessment & Plan: Assessment: on Sinemet PLAN: - cont home meds Acute kidney injury 03/04/2019 03/06/2019 Last Assessment & Plan: Assessment: - noted to have HILARIO at OSH with Cr of 1.31 on presentation, improved with fluids - likely related to blood loss RESOLVED PLAN: - monitor - avoid nephrotoxins - renally dose meds Elevated troponin 12/06/2018 12/23/2018 Last Assessment & Plan: No chest pain. EKG - NSR, LVH, LAD Plan: repeat EKG and troponin Trend troponin if remains elevated here GI bleed 12/05/2018 12/23/2018 Last Assessment & Plan: Acute blood loss anemia likely from GI bleed. EGD, colonoscopy - no source of bleeding identify. CT angio Abd aorta + Iliofemoral: Enhancing polypoid lesion within the 1st segment of the duodenum concerning for slowly bleeding mass. Plan: type and screen Blood transfusion consent was taken Monitor CBC q8h for now Transfuse if Hb <7 GI consult in am Continue with PPI bid Hold ASA and other NSAID 12/[address] Bonilla's team for transgastric endoscopy + possible resection of remnant/dudenal first part if needed requested cardiology input due to severe as appreciate their input 12/19 OR on 12/21 npo at 1 am on 12/21 12/21 100 ml of periop bleed found a bleeding du and clipped saw in recovery room groggy coming out of anesthesia 2 hours procedure weaned ot 50% vm in hte theatre and brought to pacu on 2 liters out ot floor in an hour ODELL (iron deficiency anemia) 12/05/2018 Last Assessment & Plan: Assessment: most recent labs show normal H/H, but does take Ferrous sulfate Postoperative hypertension 04/26 Overview: History: 04/22/2019: AVR Assessment: Requiring NTG infusion postop Plan: Titrate to maintain MAPs 65-75. Last Assessment & Plan: Home meds: losartan 50 - was on losartan-hctz prior to December admission stable PLAN: - hold in setting of ?GI bleed Depression 12/23/2018 Last Assessment & Plan: No suicidal or homicidal ideation. Stable. Continue with Citalopram documented as of this encounter (statuses as of 10/21/2021) [facility]07-29-2020 History of Past illness Narrative* Problem Noted Date Resolved Date Other pancytopenia 01/01/2020 03/27/2020 Transition of care performed with sharing of clinical summary 04/30/2019 03/27/2020 Overview: Indication for Surgery: Prosthetic aortic valve endocarditis Preop LVEF: 75% RVF: Normal Postop LVEF: Normal RVF: Normal Cath: mild non obsx CAD Cards: [facility] EKG: NSR w/ 1st degree Important/Relevant PMH/PSH: 73F from [facility] with GERD, depression, HTN, gastric bypass, PUD with recent GIB, nephrolithiasis, s/p AVR 2002 admitted with prosthetic valve endocarditis c/b severe AI, posterior root abscess, Parkinsons, CKD, overactive bladder Preoperative Hospital Course Admitted 04/10 with severe aortic insufficiency related to endocarditis Airway Difficulty: Grade I - easy Pacing wires: No. A/V pulled 04/30 Chronological list of Surgeries and Major Events 04/22/2019: Redo AVR, MVr_ 04/29/2019: PPM placement A/P of Major Active ICU Problems Cardiac: EP following for pacer dependency with ventricular rate <30 underneath. Continue DDD 80, mA 10, 5. Formal echo 04/26 showed EF 75%, RV normal. NPO, plan for PPM today. Renal:CKD-- SrCr 0.89, downtrending. Avoid nephrotoxic agents, trend fluid balance and electrolytes. 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 Continue ceftriaxone. Transferred to floor 04/29/19 To do or to watch: Access: Right arm PICC placed 04/30. - POD#7. No tubes/wires. AV paced. On room air. - s/p Redo AVR, MVr for IE: Surg path reviewed. Bacterial PCR + Streptococcus mutans. ID following. PICC placed 04/30. CoPat started. Continue Ceftriaxone through 06/03. Post-op echo completed 04/26: EF 75%, trace Mr, trivial-small pericardial effusion. - s/p PPM: Device check completed 04/30. - FVO: Up 3.7kg. Continue lasix - Dispo: 73 yo female from [place], [place]. Daughter can help. SW following. PT/OT rec home PT/OT; HHC for IV antibiotics. Face-to face ordered. Should be ready for dc when accepting facility found. [facility] f/u scheduled. [facility] OPD f/u requested. Discharge Planning: Anticipated Discharge Date: 05/01/2019 if HHC arranged. Barriers to Discharge: Other: accepting home care agency and - In Process Care Management Discharge Needs: Needs Prior to Discharge: Accepting Facility;IV Antibiotics Discharge planning issues 04/30/20192019 Overview: 73 yo female from [place], [place]. Daughter can help. SW following. PT/OT rec home PT/OT; HHC for IV antibiotics. Face-to face ordered. Should be ready for dc when accepting facility found. Thrombocytopenia 04/24/2019 04/26/2019 On mechanically assisted ventilation 04/22/2019 04/23/2019 Overview: History: Post op cardiac surgery requiring elective intubation Assessment: Grade I airway Plan: WTE Post-operative pain 04/22/2019 05/01/2019 Overview: History: 04/22/2019: AVR Assessment: Pain control adequate Plan: Continue scheduled Tylenol and prn oxycodone and tramadol. Preop testing 04/19/2019 04/30/2019 Overview: Date of Consult: 04/12 Type of surgery: Redo AVR/root +/- MVr Date preop tests completed:April 19, 2019 Waiting on: Date Surgeon reviewed Patient: 04/18 Patient work up completed: Waiting on: Date of decision by Surgeon: April 19, 2019 Deemed candidate: Yes Date of surgery: 04/22 Reasons for delay: na [facility] and [facility] PRE-OP CHECKLIST Surgeon: Dr. Forrest Rios Informed Consent Completed: pending STS Score: RISK SCORES Procedure: Isolated AVR CALCULATE Risk of Mortality: 4.605% Renal Failure: 3.404% Permanent Stroke: 2.380% Prolonged Ventilation: 22.071% DSW Infection: 0.035% Reoperation: 7.729% Morbidity or Mortality: 27.681% Short Length of Stay: 12.366% Long Length of Stay: 20.018% CAD: No Is intended procedure a CABG: No - H & P completed: Yes PA/LAT: Completed CT: Completed MRI: N/A LE US: N/A Cath: Yes - reviewed: Yes EKG: Completed Is patient on Amiodarone? Yes Echo:Completed EF %: 70 PI's: N/A Carotid: Completed Mapping: N/A Dental: Completed PFT's: Completed CBC, Coags, BMP, Mg, Phos Recent Labs 04/19/19 0507 04/18/19 0800 04/18/19 0455 04/17/19 0511 WBC 7.49 8.34 7.77 7.81 HB 7.9* 8.2* 7.3* 8.4* HCT 24.7* 25.7* 23.6* 26.5* PLT 144* 151 137* 155 NA 135* -- 134* 134* K 4.5 -- 4.4 4.4 CHLOR 103 -- 102 102 CO2 20* -- 23 22 BUN 37* -- 34* 27* CREAT 1.05* -- 1.03* 1.01* GLUC 83 -- 80 77 CA 8.2* -- 8.3* 8.2* MG 2.0 -- 2.0 1.9 UA: Normal HCG:N/A ABO/ABO Confirmed: Yes Blood ordered: Yes POS ABS 4units Willing to accept blood: Yes SA Swab: Yes - results: Pending Last Dose of Anticoagulation: none Op Note: Yes with Dr. Rios Pacemaker Check: No Implants: no Consults: ID, GI DM: No Cardiac Surgical prep: Yes SIGNATURE: Myrna Car RN LABOR RELATIONS ANALYST.CONFLICTS ANALYST DATE of SERVICE: 04/19/2019 TIME of SERVICE: 11:16 AM CHECKED BY: Moderate protein-calorie malnutrition 04/12/2019 10/02/2020 Overview: History: Post-op problem. Albumin 2.9. Noted on post-op nutrition screen. Assessment: 75% of meals consumed per I/O. Plan: Follow nutrition recs. Last Assessment & Plan: - nutrition referral Parkinson's disease 03/04/2019 06/11/2019 Overview: History: Takes Sinement at home Assessment: Stable postop Plan: Resume home regimen. Last Assessment & Plan: Assessment: on Sinemet PLAN: - cont home meds Acute kidney injury 03/04/2019 03/06/2019 Last Assessment & Plan: Assessment: - noted to have HILARIO at OSH with Cr of 1.31 on presentation, improved with fluids - likely related to blood loss RESOLVED PLAN: - monitor - avoid nephrotoxins - renally dose meds Elevated troponin 12/06/2018 12/23/2018 Last Assessment & Plan: No chest pain. EKG - NSR, LVH, LAD Plan: repeat EKG and troponin Trend troponin if remains elevated here GI bleed 12/05/2018 12/23/2018 Last Assessment & Plan: Acute blood loss anemia likely from GI bleed. EGD, colonoscopy - no source of bleeding identify. CT angio Abd aorta + Iliofemoral: Enhancing polypoid lesion within the 1st segment of the duodenum concerning for slowly bleeding mass. Plan: type and screen Blood transfusion consent was taken Monitor CBC q8h for now Transfuse if Hb <7 GI consult in am Continue with PPI bid Hold ASA and other NSAID 12/[address] Bonilla's team for transgastric endoscopy + possible resection of remnant/dudenal first part if needed requested cardiology input due to severe as appreciate their input 12/19 OR on 12/21 npo at 1 am on 12/21 12/21 100 ml of periop bleed found a bleeding du and clipped saw in recovery room groggy coming out of anesthesia 2 hours procedure weaned ot 50% vm in hte theatre and brought to pacu on 2 liters out ot floor in an hour ODELL (iron deficiency anemia) 12/05/2018 Last Assessment & Plan: Assessment: most recent labs show normal H/H, but does take Ferrous sulfate Postoperative hypertension 04/26 Overview: History: 04/22/2019: AVR Assessment: Requiring NTG infusion postop Plan: Titrate to maintain MAPs 65-75. Last Assessment & Plan: Home meds: losartan 50 - was on losartan-hctz prior to December admission stable PLAN: - hold in setting of ?GI bleed Depression 12/23/2018 Last Assessment & Plan: No suicidal or homicidal ideation. Stable. Continue with Citalopram documented as of this encounter (statuses as of 10/28/2021) [facility]07-29-2020 History of Past illness Narrative* Problem Noted Date Resolved Date Other pancytopenia 01/01/2020 03/27/2020 Transition of care performed with sharing of clinical summary 04/30/2019 03/27/2020 Overview: Indication for Surgery: Prosthetic aortic valve endocarditis Preop LVEF: 75% RVF: Normal Postop LVEF: Normal RVF: Normal Cath: mild non obsx CAD Cards: [facility] EKG: NSR w/ 1st degree Important/Relevant PMH/PSH: 73F from [facility] with GERD, depression, HTN, gastric bypass, PUD with recent GIB, nephrolithiasis, s/p AVR 2002 admitted with prosthetic valve endocarditis c/b severe AI, posterior root abscess, Parkinsons, CKD, overactive bladder Preoperative Hospital Course Admitted 04/10 with severe aortic insufficiency related to endocarditis Airway Difficulty: Grade I - easy Pacing wires: No. A/V pulled 04/30 Chronological list of Surgeries and Major Events 04/22/2019: Redo AVR, MVr_ 04/29/2019: PPM placement A/P of Major Active ICU Problems Cardiac: EP following for pacer dependency with ventricular rate <30 underneath. Continue DDD 80, mA 10, 5. Formal echo 04/26 showed EF 75%, RV normal. NPO, plan for PPM today. Renal:CKD-- SrCr 0.89, downtrending. Avoid nephrotoxic agents, trend fluid balance and electrolytes. 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 Continue ceftriaxone. Transferred to floor 04/29/19 To do or to watch: Access: Right arm PICC placed 04/30. - POD#7. No tubes/wires. AV paced. On room air. - s/p Redo AVR, MVr for IE: Surg path reviewed. Bacterial PCR + Streptococcus mutans. ID following. PICC placed 04/30. CoPat started. Continue Ceftriaxone through 06/03. Post-op echo completed 04/26: EF 75%, trace Mr, trivial-small pericardial effusion. - s/p PPM: Device check completed 04/30. - FVO: Up 3.7kg. Continue lasix - Dispo: 73 yo female from [place], [place]. Daughter can help. SW following. PT/OT rec home PT/OT; HHC for IV antibiotics. Face-to face ordered. Should be ready for dc when accepting facility found. [facility]iology f/u scheduled. [facility] OPD f/u requested. Discharge Planning: Anticipated Discharge Date: 05/01/2019 if HHC arranged. Barriers to Discharge: Other: accepting home care agency and - In Process Care Management Discharge Needs: Needs Prior to Discharge: Accepting Facility;IV Antibiotics Discharge planning issues 04/30/20192019 Overview: 73 yo female from [place], [place]. Daughter can help. SW following. PT/OT rec home PT/OT; HHC for IV antibiotics. Face-to face ordered. Should be ready for dc when accepting facility found. Thrombocytopenia 04/24/2019 04/26/2019 On mechanically assisted ventilation 04/22/2019 04/23/2019 Overview: History: Post op cardiac surgery requiring elective intubation Assessment: Grade I airway Plan: WTE Post-operative pain 04/22/2019 05/01/2019 Overview: History: 04/22/2019: AVR Assessment: Pain control adequate Plan: Continue scheduled Tylenol and prn oxycodone and tramadol. Preop testing 04/19/2019 04/30/2019 Overview: Date of Consult: 04/12 Type of surgery: Redo AVR/root +/- MVr Date preop tests completed:April 19, 2019 Waiting on: Date Surgeon reviewed Patient: 04/18 Patient work up completed: Waiting on: Date of decision by Surgeon: April 19, 2019 Deemed candidate: Yes Date of surgery: 04/22 Reasons for delay: na [facility] and [facility] PRE-OP CHECKLIST Surgeon: Dr. Forrest Rios Informed Consent Completed: pending STS Score: RISK SCORES Procedure: Isolated AVR CALCULATE Risk of Mortality: 4.605% Renal Failure: 3.404% Permanent Stroke: 2.380% Prolonged Ventilation: 22.071% DSW Infection: 0.035% Reoperation: 7.729% Morbidity or Mortality: 27.681% Short Length of Stay: 12.366% Long Length of Stay: 20.018% CAD: No Is intended procedure a CABG: No - H & P completed: Yes PA/LAT: Completed CT: Completed MRI: N/A LE US: N/A Cath: Yes - reviewed: Yes EKG: Completed Is patient on Amiodarone? Yes Echo:Completed EF %: 70 PI's: N/A Carotid: Completed Mapping: N/A Dental: Completed PFT's: Completed CBC, Coags, BMP, Mg, Phos Recent Labs 04/19/19 0507 04/18/19 0800 04/18/19 0455 04/17/19 0511 WBC 7.49 8.34 7.77 7.81 HB 7.9* 8.2* 7.3* 8.4* HCT 24.7* 25.7* 23.6* 26.5* PLT 144* 151 137* 155 NA 135* -- 134* 134* K 4.5 -- 4.4 4.4 CHLOR 103 -- 102 102 CO2 20* -- 23 22 BUN 37* -- 34* 27* CREAT 1.05* -- 1.03* 1.01* GLUC 83 -- 80 77 CA 8.2* -- 8.3* 8.2* MG 2.0 -- 2.0 1.9 UA: Normal HCG:N/A ABO/ABO Confirmed: Yes Blood ordered: Yes POS ABS 4units Willing to accept blood: Yes SA Swab: Yes - results: Pending Last Dose of Anticoagulation: none Op Note: Yes with Dr. Rios Pacemaker Check: No Implants: no Consults: ID, GI DM: No Cardiac Surgical prep: Yes SIGNATURE: Myrna Car RN LABOR RELATIONS ANALYST.CONFLICTS ANALYST DATE of SERVICE: 04/19/2019 TIME of SERVICE: 11:16 AM CHECKED BY: Moderate protein-calorie malnutrition 04/12/2019 10/02/2020 Overview: History: Post-op problem. Albumin 2.9. Noted on post-op nutrition screen. Assessment: 75% of meals consumed per I/O. Plan: Follow nutrition recs. Last Assessment & Plan: - nutrition referral Parkinson's disease 03/04/2019 06/11/2019 Overview: History: Takes Sinement at home Assessment: Stable postop Plan: Resume home regimen. Last Assessment & Plan: Assessment: on Sinemet PLAN: - cont home meds Acute kidney injury 03/04/2019 03/06/2019 Last Assessment & Plan: Assessment: - noted to have HILARIO at OSH with Cr of 1.31 on presentation, improved with fluids - likely related to blood loss RESOLVED PLAN: - monitor - avoid nephrotoxins - renally dose meds Elevated troponin 12/06/2018 12/23/2018 Last Assessment & Plan: No chest pain. EKG - NSR, LVH, LAD Plan: repeat EKG and troponin Trend troponin if remains elevated here GI bleed 12/05/2018 12/23/2018 Last Assessment & Plan: Acute blood loss anemia likely from GI bleed. EGD, colonoscopy - no source of bleeding identify. CT angio Abd aorta + Iliofemoral: Enhancing polypoid lesion within the 1st segment of the duodenum concerning for slowly bleeding mass. Plan: type and screen Blood transfusion consent was taken Monitor CBC q8h for now Transfuse if Hb <7 GI consult in am Continue with PPI bid Hold ASA and other NSAID 12/[address] Bonilla's team for transgastric endoscopy + possible resection of remnant/dudenal first part if needed requested cardiology input due to severe as appreciate their input 12/19 OR on 12/21 npo at 1 am on 12/21 12/21 100 ml of periop bleed found a bleeding du and clipped saw in recovery room groggy coming out of anesthesia 2 hours procedure weaned ot 50% vm in hte theatre and brought to pacu on 2 liters out ot floor in an hour ODELL (iron deficiency anemia) 12/05/2018 Last Assessment & Plan: Assessment: most recent labs show normal H/H, but does take Ferrous sulfate Postoperative hypertension 04/26 Overview: History: 04/22/2019: AVR Assessment: Requiring NTG infusion postop Plan: Titrate to maintain MAPs 65-75. Last Assessment & Plan: Home meds: losartan 50 - was on losartan-hctz prior to December admission stable PLAN: - hold in setting of ?GI bleed Depression 12/23/2018 Last Assessment & Plan: No suicidal or homicidal ideation. Stable. Continue with Citalopram documented as of this encounter (statuses as of 10/29/2021) [facility]07-[facility]-2020 History of Past illness Narrative* Problem Noted Date Resolved Date Other pancytopenia 01/01/2020 03/27/2020 Transition of care performed with sharing of clinical summary 04/30/2019 03/27/2020 Overview: Indication for Surgery: Prosthetic aortic valve endocarditis Preop LVEF: 75% RVF: Normal Postop LVEF: Normal RVF: Normal Cath: mild non obsx CAD Cards: [facility] EKG: NSR w/ 1st degree Important/Relevant PMH/PSH: 73F from [facility] with GERD, depression, HTN, gastric bypass, PUD with recent GIB, nephrolithiasis, s/p AVR 2002 admitted with prosthetic valve endocarditis c/b severe AI, posterior root abscess, Parkinsons, CKD, overactive bladder Preoperative Hospital Course Admitted 04/10 with severe aortic insufficiency related to endocarditis Airway Difficulty: Grade I - easy Pacing wires: No. A/V pulled 04/30 Chronological list of Surgeries and Major Events 04/22/2019: Redo AVR, MVr_ 04/29/2019: PPM placement A/P of Major Active ICU Problems Cardiac: EP following for pacer dependency with ventricular rate <30 underneath. Continue DDD 80, mA 10, 5. Formal echo 04/26 showed EF 75%, RV normal. NPO, plan for PPM today. Renal:CKD-- SrCr 0.89, downtrending. Avoid nephrotoxic agents, trend fluid balance and electrolytes. 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 Continue ceftriaxone. Transferred to floor 04/29/19 To do or to watch: Access: Right arm PICC placed 04/30. - POD#7. No tubes/wires. AV paced. On room air. - s/p Redo AVR, MVr for IE: Surg path reviewed. Bacterial PCR + Streptococcus mutans. ID following. PICC placed 04/30. CoPat started. Continue Ceftriaxone through 06/03. Post-op echo completed 04/26: EF 75%, trace Mr, trivial-small pericardial effusion. - s/p PPM: Device check completed 04/30. - FVO: Up 3.7kg. Continue lasix - Dispo: 73 yo female from [place], [place]. Daughter can help. SW following. PT/OT rec home PT/OT; HHC for IV antibiotics. Face-to face ordered. Should be ready for dc when accepting facility found. [facility] f/u scheduled. [facility] OPD f/u requested. Discharge Planning: Anticipated Discharge Date: 05/01/2019 if HHC arranged. Barriers to Discharge: Other: accepting home care agency and - In Process Care Management Discharge Needs: Needs Prior to Discharge: Accepting Facility;IV Antibiotics Discharge planning issues 04/30/20192019 Overview: 73 yo female from [place], [place]. Daughter can help. SW following. PT/OT rec home PT/OT; C for IV antibiotics. Face-to face ordered. Should be ready for dc when accepting facility found. Thrombocytopenia 04/24/2019 04/26/2019 On mechanically assisted ventilation 04/22/2019 04/23/2019 Overview: History: Post op cardiac surgery requiring elective intubation Assessment: Grade I airway Plan: WTE Post-operative pain 04/22/2019 05/01/2019 Overview: History: 04/22/2019: AVR Assessment: Pain control adequate Plan: Continue scheduled Tylenol and prn oxycodone and tramadol. Preop testing 04/19/2019 04/30/2019 Overview: Date of Consult: 04/12 Type of surgery: Redo AVR/root +/- MVr Date preop tests completed:April 19, 2019 Waiting on: Date Surgeon reviewed Patient: 04/18 Patient work up completed: Waiting on: Date of decision by Surgeon: April 19, 2019 Deemed candidate: Yes Date of surgery: 04/22 Reasons for delay: na [facility]ART and [facility] PRE-OP CHECKLIST Surgeon: Dr. Forrest Rios Informed Consent Completed: pending STS Score: RISK SCORES Procedure: Isolated AVR CALCULATE Risk of Mortality: 4.605% Renal Failure: 3.404% Permanent Stroke: 2.380% Prolonged Ventilation: 22.071% DSW Infection: 0.035% Reoperation: 7.729% Morbidity or Mortality: 27.681% Short Length of Stay: 12.366% Long Length of Stay: 20.018% CAD: No Is intended procedure a CABG: No - H & P completed: Yes PA/LAT: Completed CT: Completed MRI: N/A LE US: N/A Cath: Yes - reviewed: Yes EKG: Completed Is patient on Amiodarone? Yes Echo:Completed EF %: 70 PI's: N/A Carotid: Completed Mapping: N/A Dental: Completed PFT's: Completed CBC, Coags, BMP, Mg, Phos Recent Labs 04/19/19 0507 04/18/19 0800 04/18/19 0455 04/17/19 0511 WBC 7.49 8.34 7.77 7.81 HB 7.9* 8.2* 7.3* 8.4* HCT 24.7* 25.7* 23.6* 26.5* PLT 144* 151 137* 155 NA 135* -- 134* 134* K 4.5 -- 4.4 4.4 CHLOR 103 -- 102 102 CO2 20* -- 23 22 BUN 37* -- 34* 27* CREAT 1.05* -- 1.03* 1.01* GLUC 83 -- 80 77 CA 8.2* -- 8.3* 8.2* MG 2.0 -- 2.0 1.9 UA: Normal HCG:N/A ABO/ABO Confirmed: Yes Blood ordered: Yes POS ABS 4units Willing to accept blood: Yes SA Swab: Yes - results: Pending Last Dose of Anticoagulation: none Op Note: Yes with Dr. Rios Pacemaker Check: No Implants: no Consults: ID, GI DM: No Cardiac Surgical prep: Yes SIGNATURE: Myrna Car RN LABOR RELATIONS ANALYST.CONFLICTS ANALYST DATE of SERVICE: 04/19/2019 TIME of SERVICE: 11:16 AM CHECKED BY: Moderate protein-calorie malnutrition 04/12/2019 10/02/2020 Overview: History: Post-op problem. Albumin 2.9. Noted on post-op nutrition screen. Assessment: 75% of meals consumed per I/O. Plan: Follow nutrition recs. Last Assessment & Plan: - nutrition referral Parkinson's disease 03/04/2019 06/11/2019 Overview: History: Takes Sinement at home Assessment: Stable postop Plan: Resume home regimen. Last Assessment & Plan: Assessment: on Sinemet PLAN: - cont home meds Acute kidney injury 03/04/2019 03/06/2019 Last Assessment & Plan: Assessment: - noted to have HILARIO at OSH with Cr of 1.31 on presentation, improved with fluids - likely related to blood loss RESOLVED PLAN: - monitor - avoid nephrotoxins - renally dose meds Elevated troponin 12/06/2018 12/23/2018 Last Assessment & Plan: No chest pain. EKG - NSR, LVH, LAD Plan: repeat EKG and troponin Trend troponin if remains elevated here GI bleed 12/05/2018 12/23/2018 Last Assessment & Plan: Acute blood loss anemia likely from GI bleed. EGD, colonoscopy - no source of bleeding identify. CT angio Abd aorta + Iliofemoral: Enhancing polypoid lesion within the 1st segment of the duodenum concerning for slowly bleeding mass. Plan: type and screen Blood transfusion consent was taken Monitor CBC q8h for now Transfuse if Hb <7 GI consult in am Continue with PPI bid Hold ASA and other NSAID 12/[address] Bonilla's team for transgastric endoscopy + possible resection of remnant/dudenal first part if needed requested cardiology input due to severe as appreciate their input 12/19 OR on 12/21 npo at 1 am on 12/21 12/21 100 ml of periop bleed found a bleeding du and clipped saw in recovery room groggy coming out of anesthesia 2 hours procedure weaned ot 50% vm in hte theatre and brought to pacu on 2 liters out ot floor in an hour ODELL (iron deficiency anemia) 12/05/2018 Last Assessment & Plan: Assessment: most recent labs show normal H/H, but does take Ferrous sulfate Postoperative hypertension 04/26 Overview: History: 04/22/2019: AVR Assessment: Requiring NTG infusion postop Plan: Titrate to maintain MAPs 65-75. Last Assessment & Plan: Home meds: losartan 50 - was on losartan-hctz prior to December admission stable PLAN: - hold in setting of ?GI bleed Depression 12/23/2018 Last Assessment & Plan: No suicidal or homicidal ideation. Stable. Continue with Citalopram documented as of this encounter (statuses as of 10/29/2021) [facility]07-29-2020 History of Past illness Narrative* Problem Noted Date Resolved Date Other pancytopenia 01/01/2020 03/27/2020 Transition of care performed with sharing of clinical summary 04/30/2019 03/27/2020 Overview: Indication for Surgery: Prosthetic aortic valve endocarditis Preop LVEF: 75% RVF: Normal Postop LVEF: Normal RVF: Normal Cath: mild non obsx CAD Cards: [facility] EKG: NSR w/ 1st degree Important/Relevant PMH/PSH: 73F from [facility] with GERD, depression, HTN, gastric bypass, PUD with recent GIB, nephrolithiasis, s/p AVR 2002 admitted with prosthetic valve endocarditis c/b severe AI, posterior root abscess, Parkinsons, CKD, overactive bladder Preoperative Hospital Course Admitted 04/10 with severe aortic insufficiency related to endocarditis Airway Difficulty: Grade I - easy Pacing wires: No. A/V pulled 04/30 Chronological list of Surgeries and Major Events 04/22/2019: Redo AVR, MVr_ 04/29/2019: PPM placement A/P of Major Active ICU Problems Cardiac: EP following for pacer dependency with ventricular rate <30 underneath. Continue DDD 80, mA 10, 5. Formal echo 04/26 showed EF 75%, RV normal. NPO, plan for PPM today. Renal:CKD-- SrCr 0.89, downtrending. Avoid nephrotoxic agents, trend fluid balance and electrolytes. 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 Continue ceftriaxone. Transferred to floor 04/29/19 To do or to watch: Access: Right arm PICC placed 04/30. - POD#7. No tubes/wires. AV paced. On room air. - s/p Redo AVR, MVr for IE: Surg path reviewed. Bacterial PCR + Streptococcus mutans. ID following. PICC placed 04/30. CoPat started. Continue Ceftriaxone through 06/03. Post-op echo completed 04/26: EF 75%, trace Mr, trivial-small pericardial effusion. - s/p PPM: Device check completed 04/30. - FVO: Up 3.7kg. Continue lasix - Dispo: 73 yo female from [place], [place]. Daughter can help. SW following. PT/OT rec home PT/OT; HHC for IV antibiotics. Face-to face ordered. Should be ready for dc when accepting facility found. [facility] f/u scheduled. CTS OPD f/u requested. Discharge Planning: Anticipated Discharge Date: 05/01/2019 if HHC arranged. Barriers to Discharge: Other: accepting home care agency and - In Process Care Management Discharge Needs: Needs Prior to Discharge: Accepting Facility;IV Antibiotics Discharge planning issues 04/30/20192019 Overview: 73 yo female from [place], [place]. Daughter can help. SW following. PT/OT rec home PT/OT; HHC for IV antibiotics. Face-to face ordered. Should be ready for dc when accepting facility found. Thrombocytopenia 04/24/2019 04/26/2019 On mechanically assisted ventilation 04/22/2019 04/23/2019 Overview: History: Post op cardiac surgery requiring elective intubation Assessment: Grade I airway Plan: WTE Post-operative pain 04/22/2019 05/01/2019 Overview: History: 04/22/2019: AVR Assessment: Pain control adequate Plan: Continue scheduled Tylenol and prn oxycodone and tramadol. Preop testing 04/19/2019 04/30/2019 Overview: Date of Consult: 04/12 Type of surgery: Redo AVR/root +/- MVr Date preop tests completed:April 19, 2019 Waiting on: Date Surgeon reviewed Patient: 04/18 Patient work up completed: Waiting on: Date of decision by Surgeon: April 19, 2019 Deemed candidate: Yes Date of surgery: 04/22 Reasons for delay: na [facility] and [facility] PRE-OP CHECKLIST Surgeon: Dr. Forrest Rios Informed Consent Completed: pending STS Score: RISK SCORES Procedure: Isolated AVR CALCULATE Risk of Mortality: 4.605% Renal Failure: 3.404% Permanent Stroke: 2.380% Prolonged Ventilation: 22.071% DSW Infection: 0.035% Reoperation: 7.729% Morbidity or Mortality: 27.681% Short Length of Stay: 12.366% Long Length of Stay: 20.018% CAD: No Is intended procedure a CABG: No - H & P completed: Yes PA/LAT: Completed CT: Completed MRI: N/A LE US: N/A Cath: Yes - reviewed: Yes EKG: Completed Is patient on Amiodarone? Yes Echo:Completed EF %: 70 PI's: N/A Carotid: Completed Mapping: N/A Dental: Completed PFT's: Completed CBC, Coags, BMP, Mg, Phos Recent Labs 04/19/19 0507 04/18/19 0800 04/18/19 0455 04/17/19 0511 WBC 7.49 8.34 7.77 7.81 HB 7.9* 8.2* 7.3* 8.4* HCT 24.7* 25.7* 23.6* 26.5* PLT 144* 151 137* 155 NA 135* -- 134* 134* K 4.5 -- 4.4 4.4 CHLOR 103 -- 102 102 CO2 20* -- 23 22 BUN 37* -- 34* 27* CREAT 1.05* -- 1.03* 1.01* GLUC 83 -- 80 77 CA 8.2* -- 8.3* 8.2* MG 2.0 -- 2.0 1.9 UA: Normal HCG:N/A ABO/ABO Confirmed: Yes Blood ordered: Yes POS ABS 4units Willing to accept blood: Yes SA Swab: Yes - results: Pending Last Dose of Anticoagulation: none Op Note: Yes with Dr. Rios Pacemaker Check: No Implants: no Consults: ID, GI DM: No Cardiac Surgical prep: Yes SIGNATURE: Myrna Car RN LABOR RELATIONS ANALYST.CONFLICTS ANALYST DATE of SERVICE: 04/19/2019 TIME of SERVICE: 11:16 AM CHECKED BY: Moderate protein-calorie malnutrition 04/12/2019 10/02/2020 Overview: History: Post-op problem. Albumin 2.9. Noted on post-op nutrition screen. Assessment: 75% of meals consumed per I/O. Plan: Follow nutrition recs. Last Assessment & Plan: - nutrition referral Parkinson's disease 03/04/2019 06/11/2019 Overview: History: Takes Sinement at home Assessment: Stable postop Plan: Resume home regimen. Last Assessment & Plan: Assessment: on Sinemet PLAN: - cont home meds Acute kidney injury 03/04/2019 03/06/2019 Last Assessment & Plan: Assessment: - noted to have HILARIO at OSH with Cr of 1.31 on presentation, improved with fluids - likely related to blood loss RESOLVED PLAN: - monitor - avoid nephrotoxins - renally dose meds Elevated troponin 12/06/2018 12/23/2018 Last Assessment & Plan: No chest pain. EKG - NSR, LVH, LAD Plan: repeat EKG and troponin Trend troponin if remains elevated here GI bleed 12/05/2018 12/23/2018 Last Assessment & Plan: Acute blood loss anemia likely from GI bleed. EGD, colonoscopy - no source of bleeding identify. CT angio Abd aorta + Iliofemoral: Enhancing polypoid lesion within the 1st segment of the duodenum concerning for slowly bleeding mass. Plan: type and screen Blood transfusion consent was taken Monitor CBC q8h for now Transfuse if Hb <7 GI consult in am Continue with PPI bid Hold ASA and other NSAID 12/[address] Bonilla's team for transgastric endoscopy + possible resection of remnant/dudenal first part if needed requested cardiology input due to severe as appreciate their input 12/19 OR on 12/21 npo at 1 am on 12/21 12/21 100 ml of periop bleed found a bleeding du and clipped saw in recovery room groggy coming out of anesthesia 2 hours procedure weaned ot 50% vm in hte theatre and brought to pacu on 2 liters out ot floor in an hour ODELL (iron deficiency anemia) 12/05/2018 Last Assessment & Plan: Assessment: most recent labs show normal H/H, but does take Ferrous sulfate Postoperative hypertension 04/26 Overview: History: 04/22/2019: AVR Assessment: Requiring NTG infusion postop Plan: Titrate to maintain MAPs 65-75. Last Assessment & Plan: Home meds: losartan 50 - was on losartan-hctz prior to December admission stable PLAN: - hold in setting of ?GI bleed Depression 12/23/2018 Last Assessment & Plan: No suicidal or homicidal ideation. Stable. Continue with Citalopram documented as of this encounter (statuses as of 11/02/2021) [facility]07-29-2020 History of Past illness Narrative* Problem Noted Date Resolved Date Other pancytopenia 01/01/2020 03/27/2020 Transition of care performed with sharing of clinical summary 04/30/2019 03/27/2020 Overview: Indication for Surgery: Prosthetic aortic valve endocarditis Preop LVEF: 75% RVF: Normal Postop LVEF: Normal RVF: Normal Cath: mild non obsx CAD Cards: [facility] EKG: NSR w/ 1st degree Important/Relevant PMH/PSH: 73F from [facility] with GERD, depression, HTN, gastric bypass, PUD with recent GIB, nephrolithiasis, s/p AVR 2002 admitted with prosthetic valve endocarditis c/b severe AI, posterior root abscess, Parkinsons, CKD, overactive bladder Preoperative Hospital Course Admitted 04/10 with severe aortic insufficiency related to endocarditis Airway Difficulty: Grade I - easy Pacing wires: No. A/V pulled 04/30 Chronological list of Surgeries and Major Events 04/22/2019: Redo AVR, MVr_ 04/29/2019: PPM placement A/P of Major Active ICU Problems Cardiac: EP following for pacer dependency with ventricular rate <30 underneath. Continue DDD 80, mA 10, 5. Formal echo 04/26 showed EF 75%, RV normal. NPO, plan for PPM today. Renal:CKD-- SrCr 0.89, downtrending. Avoid nephrotoxic agents, trend fluid balance and electrolytes. 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 Continue ceftriaxone. Transferred to floor 04/29/19 To do or to watch: Access: Right arm PICC placed 04/30. - POD#7. No tubes/wires. AV paced. On room air. - s/p Redo AVR, MVr for IE: Surg path reviewed. Bacterial PCR + Streptococcus mutans. ID following. PICC placed 04/30. CoPat started. Continue Ceftriaxone through 06/03. Post-op echo completed 04/26: EF 75%, trace Mr, trivial-small pericardial effusion. - s/p PPM: Device check completed 04/30. - FVO: Up 3.7kg. Continue lasix - Dispo: 73 yo female from [place], [place]. Daughter can help. SW following. PT/OT rec home PT/OT; HHC for IV antibiotics. Face-to face ordered. Should be ready for dc when accepting facility found. [facility] f/u scheduled. [facility]TS OPD f/u requested. Discharge Planning: Anticipated Discharge Date: 05/01/2019 if HHC arranged. Barriers to Discharge: Other: accepting home care agency and - In Process Care Management Discharge Needs: Needs Prior to Discharge: Accepting Facility;IV Antibiotics Discharge planning issues 04/30/20192019 Overview: 73 yo female from [place], [place]. Daughter can help. SW following. PT/OT rec home PT/OT; HHC for IV antibiotics. Face-to face ordered. Should be ready for dc when accepting facility found. Thrombocytopenia 04/24/2019 04/26/2019 On mechanically assisted ventilation 04/22/2019 04/23/2019 Overview: History: Post op cardiac surgery requiring elective intubation Assessment: Grade I airway Plan: WTE Post-operative pain 04/22/2019 05/01/2019 Overview: History: 04/22/2019: AVR Assessment: Pain control adequate Plan: Continue scheduled Tylenol and prn oxycodone and tramadol. Preop testing 04/19/2019 04/30/2019 Overview: Date of Consult: 04/12 Type of surgery: Redo AVR/root +/- MVr Date preop tests completed:April 19, 2019 Waiting on: Date Surgeon reviewed Patient: 04/18 Patient work up completed: Waiting on: Date of decision by Surgeon: April 19, 2019 Deemed candidate: Yes Date of surgery: 04/22 Reasons for delay: na [facility] and [facility] PRE-OP CHECKLIST Surgeon: Dr. Forrest Rios Informed Consent Completed: pending STS Score: RISK SCORES Procedure: Isolated AVR CALCULATE Risk of Mortality: 4.605% Renal Failure: 3.404% Permanent Stroke: 2.380% Prolonged Ventilation: 22.071% DSW Infection: 0.035% Reoperation: 7.729% Morbidity or Mortality: 27.681% Short Length of Stay: 12.366% Long Length of Stay: 20.018% CAD: No Is intended procedure a CABG: No - H & P completed: Yes PA/LAT: Completed CT: Completed MRI: N/A LE US: N/A Cath: Yes - reviewed: Yes EKG: Completed Is patient on Amiodarone? Yes Echo:Completed EF %: 70 PI's: N/A Carotid: Completed Mapping: N/A Dental: Completed PFT's: Completed CBC, Coags, BMP, Mg, Phos Recent Labs 04/19/19 0507 04/18/19 0800 04/18/19 0455 04/17/19 0511 WBC 7.49 8.34 7.77 7.81 HB 7.9* 8.2* 7.3* 8.4* HCT 24.7* 25.7* 23.6* 26.5* PLT 144* 151 137* 155 NA 135* -- 134* 134* K 4.5 -- 4.4 4.4 CHLOR 103 -- 102 102 CO2 20* -- 23 22 BUN 37* -- 34* 27* CREAT 1.05* -- 1.03* 1.01* GLUC 83 -- 80 77 CA 8.2* -- 8.3* 8.2* MG 2.0 -- 2.0 1.9 UA: Normal HCG:N/A ABO/ABO Confirmed: Yes Blood ordered: Yes POS ABS 4units Willing to accept blood: Yes SA Swab: Yes - results: Pending Last Dose of Anticoagulation: none Op Note: Yes with Dr. Rios Pacemaker Check: No Implants: no Consults: ID, GI DM: No Cardiac Surgical prep: Yes SIGNATURE: Myrna Car RN LABOR RELATIONS ANALYST.CONFLICTS ANALYST DATE of SERVICE: 04/19/2019 TIME of SERVICE: 11:16 AM CHECKED BY: Moderate protein-calorie malnutrition 04/12/2019 10/02/2020 Overview: History: Post-op problem. Albumin 2.9. Noted on post-op nutrition screen. Assessment: 75% of meals consumed per I/O. Plan: Follow nutrition recs. Last Assessment & Plan: - nutrition referral Parkinson's disease 03/04/2019 06/11/2019 Overview: History: Takes Sinement at home Assessment: Stable postop Plan: Resume home regimen. Last Assessment & Plan: Assessment: on Sinemet PLAN: - cont home meds Acute kidney injury 03/04/2019 03/06/2019 Last Assessment & Plan: Assessment: - noted to have HILARIO at OSH with Cr of 1.31 on presentation, improved with fluids - likely related to blood loss RESOLVED PLAN: - monitor - avoid nephrotoxins - renally dose meds Elevated troponin 12/06/2018 12/23/2018 Last Assessment & Plan: No chest pain. EKG - NSR, LVH, LAD Plan: repeat EKG and troponin Trend troponin if remains elevated here GI bleed 12/05/2018 12/23/2018 Last Assessment & Plan: Acute blood loss anemia likely from GI bleed. EGD, colonoscopy - no source of bleeding identify. CT angio Abd aorta + Iliofemoral: Enhancing polypoid lesion within the 1st segment of the duodenum concerning for slowly bleeding mass. Plan: type and screen Blood transfusion consent was taken Monitor CBC q8h for now Transfuse if Hb <7 GI consult in am Continue with PPI bid Hold ASA and other NSAID 12/[address] Bonilla's team for transgastric endoscopy + possible resection of remnant/dudenal first part if needed requested cardiology input due to severe as appreciate their input 12/19 OR on 12/21 npo at 1 am on 12/21 12/21 100 ml of periop bleed found a bleeding du and clipped saw in recovery room groggy coming out of anesthesia 2 hours procedure weaned ot 50% vm in hte theatre and brought to pacu on 2 liters out ot floor in an hour ODELL (iron deficiency anemia) 12/05/2018 Last Assessment & Plan: Assessment: most recent labs show normal H/H, but does take Ferrous sulfate Postoperative hypertension 04/26 Overview: History: 04/22/2019: AVR Assessment: Requiring NTG infusion postop Plan: Titrate to maintain MAPs 65-75. Last Assessment & Plan: Home meds: losartan 50 - was on losartan-hctz prior to December admission stable PLAN: - hold in setting of ?GI bleed Depression 12/23/2018 Last Assessment & Plan: No suicidal or homicidal ideation. Stable. Continue with Citalopram documented as of this encounter (statuses as of 11/03/2021) [facility]07-[facility]-2020 History of Past illness Narrative* Problem Noted Date Resolved Date Other pancytopenia 01/01/2020 03/27/2020 Transition of care performed with sharing of clinical summary 04/30/2019 03/27/2020 Overview: Indication for Surgery: Prosthetic aortic valve endocarditis Preop LVEF: 75% RVF: Normal Postop LVEF: Normal RVF: Normal Cath: mild non obsx CAD Cards: [facility] EKG: NSR w/ 1st degree Important/Relevant PMH/PSH: 73F from [facility] with GERD, depression, HTN, gastric bypass, PUD with recent GIB, nephrolithiasis, s/p AVR 2002 admitted with prosthetic valve endocarditis c/b severe AI, posterior root abscess, Parkinsons, CKD, overactive bladder Preoperative Hospital Course Admitted 04/10 with severe aortic insufficiency related to endocarditis Airway Difficulty: Grade I - easy Pacing wires: No. A/V pulled 04/30 Chronological list of Surgeries and Major Events 04/22/2019: Redo AVR, MVr_ 04/29/2019: PPM placement A/P of Major Active ICU Problems Cardiac: EP following for pacer dependency with ventricular rate <30 underneath. Continue DDD 80, mA 10, 5. Formal echo 04/26 showed EF 75%, RV normal. NPO, plan for PPM today. Renal:CKD-- SrCr 0.89, downtrending. Avoid nephrotoxic agents, trend fluid balance and electrolytes. 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 Continue ceftriaxone. Transferred to floor 04/29/19 To do or to watch: Access: Right arm PICC placed 04/30. - POD#7. No tubes/wires. AV paced. On room air. - s/p Redo AVR, MVr for IE: Surg path reviewed. Bacterial PCR + Streptococcus mutans. ID following. PICC placed 04/30. CoPat started. Continue Ceftriaxone through 06/03. Post-op echo completed 04/26: EF 75%, trace Mr, trivial-small pericardial effusion. - s/p PPM: Device check completed 04/30. - FVO: Up 3.7kg. Continue lasix - Dispo: 73 yo female from [place], [place]. Daughter can help. SW following. PT/OT rec home PT/OT; HHC for IV antibiotics. Face-to face ordered. Should be ready for dc when accepting facility found. [facility] f/u scheduled. [facility] OPD f/u requested. Discharge Planning: Anticipated Discharge Date: 05/01/2019 if HHC arranged. Barriers to Discharge: Other: accepting home care agency and - In Process Care Management Discharge Needs: Needs Prior to Discharge: Accepting Facility;IV Antibiotics Discharge planning issues 04/30/20192019 Overview: 73 yo female from [place], [place]. Daughter can help. SW following. PT/OT rec home PT/OT; HHC for IV antibiotics. Face-to face ordered. Should be ready for dc when accepting facility found. Thrombocytopenia 04/24/2019 04/26/2019 On mechanically assisted ventilation 04/22/2019 04/23/2019 Overview: History: Post op cardiac surgery requiring elective intubation Assessment: Grade I airway Plan: WTE Post-operative pain 04/22/2019 05/01/2019 Overview: History: 04/22/2019: AVR Assessment: Pain control adequate Plan: Continue scheduled Tylenol and prn oxycodone and tramadol. Preop testing 04/19/2019 04/30/2019 Overview: Date of Consult: 04/12 Type of surgery: Redo AVR/root +/- MVr Date preop tests completed:April 19, 2019 Waiting on: Date Surgeon reviewed Patient: 04/18 Patient work up completed: Waiting on: Date of decision by Surgeon: April 19, 2019 Deemed candidate: Yes Date of surgery: 04/22 Reasons for delay: na [facility] and [facility] PRE-OP CHECKLIST Surgeon: Dr. Forrest Rios Informed Consent Completed: pending STS Score: RISK SCORES Procedure: Isolated AVR CALCULATE Risk of Mortality: 4.605% Renal Failure: 3.404% Permanent Stroke: 2.380% Prolonged Ventilation: 22.071% DSW Infection: 0.035% Reoperation: 7.729% Morbidity or Mortality: 27.681% Short Length of Stay: 12.366% Long Length of Stay: 20.018% CAD: No Is intended procedure a CABG: No - H & P completed: Yes PA/LAT: Completed CT: Completed MRI: N/A LE US: N/A Cath: Yes - reviewed: Yes EKG: Completed Is patient on Amiodarone? Yes Echo:Completed EF %: 70 PI's: N/A Carotid: Completed Mapping: N/A Dental: Completed PFT's: Completed CBC, Coags, BMP, Mg, Phos Recent Labs 04/19/19 0507 04/18/19 0800 04/18/19 0455 04/17/19 0511 WBC 7.49 8.34 7.77 7.81 HB 7.9* 8.2* 7.3* 8.4* HCT 24.7* 25.7* 23.6* 26.5* PLT 144* 151 137* 155 NA 135* -- 134* 134* K 4.5 -- 4.4 4.4 CHLOR 103 -- 102 102 CO2 20* -- 23 22 BUN 37* -- 34* 27* CREAT 1.05* -- 1.03* 1.01* GLUC 83 -- 80 77 CA 8.2* -- 8.3* 8.2* MG 2.0 -- 2.0 1.9 UA: Normal HCG:N/A ABO/ABO Confirmed: Yes Blood ordered: Yes POS ABS 4units Willing to accept blood: Yes SA Swab: Yes - results: Pending Last Dose of Anticoagulation: none Op Note: Yes with Dr. Rios Pacemaker Check: No Implants: no Consults: ID, GI DM: No Cardiac Surgical prep: Yes SIGNATURE: Myrna Car RN LABOR RELATIONS ANALYST.CONFLICTS ANALYST DATE of SERVICE: 04/19/2019 TIME of SERVICE: 11:16 AM CHECKED BY: Moderate protein-calorie malnutrition 04/12/2019 10/02/2020 Overview: History: Post-op problem. Albumin 2.9. Noted on post-op nutrition screen. Assessment: 75% of meals consumed per I/O. Plan: Follow nutrition recs. Last Assessment & Plan: - nutrition referral Parkinson's disease 03/04/2019 06/11/2019 Overview: History: Takes Sinement at home Assessment: Stable postop Plan: Resume home regimen. Last Assessment & Plan: Assessment: on Sinemet PLAN: - cont home meds Acute kidney injury 03/04/2019 03/06/2019 Last Assessment & Plan: Assessment: - noted to have HILARIO at OSH with Cr of 1.31 on presentation, improved with fluids - likely related to blood loss RESOLVED PLAN: - monitor - avoid nephrotoxins - renally dose meds Elevated troponin 12/06/2018 12/23/2018 Last Assessment & Plan: No chest pain. EKG - NSR, LVH, LAD Plan: repeat EKG and troponin Trend troponin if remains elevated here GI bleed 12/05/2018 12/23/2018 Last Assessment & Plan: Acute blood loss anemia likely from GI bleed. EGD, colonoscopy - no source of bleeding identify. CT angio Abd aorta + Iliofemoral: Enhancing polypoid lesion within the 1st segment of the duodenum concerning for slowly bleeding mass. Plan: type and screen Blood transfusion consent was taken Monitor CBC q8h for now Transfuse if Hb <7 GI consult in am Continue with PPI bid Hold ASA and other NSAID 12/[address] Bonilla's team for transgastric endoscopy + possible resection of remnant/dudenal first part if needed requested cardiology input due to severe as appreciate their input 12/19 OR on 12/21 npo at 1 am on 12/21 12/21 100 ml of periop bleed found a bleeding du and clipped saw in recovery room groggy coming out of anesthesia 2 hours procedure weaned ot 50% vm in hte theatre and brought to pacu on 2 liters out ot floor in an hour ODELL (iron deficiency anemia) 12/05/2018 Last Assessment & Plan: Assessment: most recent labs show normal H/H, but does take Ferrous sulfate Postoperative hypertension 04/26 Overview: History: 04/22/2019: AVR Assessment: Requiring NTG infusion postop Plan: Titrate to maintain MAPs 65-75. Last Assessment & Plan: Home meds: losartan 50 - was on losartan-hctz prior to December admission stable PLAN: - hold in setting of ?GI bleed Depression 12/23/2018 Last Assessment & Plan: No suicidal or homicidal ideation. Stable. Continue with Citalopram documented as of this encounter (statuses as of 11/08/2021) [facility] History of Past illness Narrative* Problem Noted Date Resolved Date Other pancytopenia 01/01/2020 03/27/2020 Transition of care performed with sharing of clinical summary 04/30/2019 03/27/2020 Overview: Indication for Surgery: Prosthetic aortic valve endocarditis Preop LVEF: 75% RVF: Normal Postop LVEF: Normal RVF: Normal Cath: mild non obsx CAD Cards: [facility] EKG: NSR w/ 1st degree Important/Relevant PMH/PSH: 73F from [facility] with GERD, depression, HTN, gastric bypass, PUD with recent GIB, nephrolithiasis, s/p AVR 2002 admitted with prosthetic valve endocarditis c/b severe AI, posterior root abscess, Parkinsons, CKD, overactive bladder Preoperative Hospital Course Admitted 04/10 with severe aortic insufficiency related to endocarditis Airway Difficulty: Grade I - easy Pacing wires: No. A/V pulled 04/30 Chronological list of Surgeries and Major Events 04/22/2019: Redo AVR, MVr_ 04/29/2019: PPM placement A/P of Major Active ICU Problems Cardiac: EP following for pacer dependency with ventricular rate <30 underneath. Continue DDD 80, mA 10, 5. Formal echo 04/26 showed EF 75%, RV normal. NPO, plan for PPM today. Renal:CKD-- SrCr 0.89, downtrending. Avoid nephrotoxic agents, trend fluid balance and electrolytes. 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 Continue ceftriaxone. Transferred to floor 04/29/19 To do or to watch: Access: Right arm PICC placed 04/30. - POD#7. No tubes/wires. AV paced. On room air. - s/p Redo AVR, MVr for IE: Surg path reviewed. Bacterial PCR + Streptococcus mutans. ID following. PICC placed 04/30. CoPat started. Continue Ceftriaxone through 06/03. Post-op echo completed 04/26: EF 75%, trace Mr, trivial-small pericardial effusion. - s/p PPM: Device check completed 04/30. - FVO: Up 3.7kg. Continue lasix - Dispo: 73 yo female from [place], [place]. Daughter can help. SW following. PT/OT rec home PT/OT; HHC for IV antibiotics. Face-to face ordered. Should be ready for dc when accepting facility found. [facility] f/u scheduled. [facility] OPD f/u requested. Discharge Planning: Anticipated Discharge Date: 05/01/2019 if HHC arranged. Barriers to Discharge: Other: accepting home care agency and - In Process Care Management Discharge Needs: Needs Prior to Discharge: Accepting Facility;IV Antibiotics Discharge planning issues 04/30/20192019 Overview: 73 yo female from [place], [place]. Daughter can help. SW following. PT/OT rec home PT/OT; HHC for IV antibiotics. Face-to face ordered. Should be ready for dc when accepting facility found. Thrombocytopenia 04/24/2019 04/26/2019 On mechanically assisted ventilation 04/22/2019 04/23/2019 Overview: History: Post op cardiac surgery requiring elective intubation Assessment: Grade I airway Plan: WTE Post-operative pain 04/22/2019 05/01/2019 Overview: History: 04/22/2019: AVR Assessment: Pain control adequate Plan: Continue scheduled Tylenol and prn oxycodone and tramadol. Preop testing 04/19/2019 04/30/2019 Overview: Date of Consult: 04/12 Type of surgery: Redo AVR/root +/- MVr Date preop tests completed:April 19, 2019 Waiting on: Date Surgeon reviewed Patient: 04/18 Patient work up completed: Waiting on: Date of decision by Surgeon: April 19, 2019 Deemed candidate: Yes Date of surgery: 04/22 Reasons for delay: na [facility] and [facility] PRE-OP CHECKLIST Surgeon: Dr. Forrest Rios Informed Consent Completed: pending STS Score: RISK SCORES Procedure: Isolated AVR CALCULATE Risk of Mortality: 4.605% Renal Failure: 3.404% Permanent Stroke: 2.380% Prolonged Ventilation: 22.071% DSW Infection: 0.035% Reoperation: 7.729% Morbidity or Mortality: 27.681% Short Length of Stay: 12.366% Long Length of Stay: 20.018% CAD: No Is intended procedure a CABG: No - H & P completed: Yes PA/LAT: Completed CT: Completed MRI: N/A LE US: N/A Cath: Yes - reviewed: Yes EKG: Completed Is patient on Amiodarone? Yes Echo:Completed EF %: 70 PI's: N/A Carotid: Completed Mapping: N/A Dental: Completed PFT's: Completed CBC, Coags, BMP, Mg, Phos Recent Labs 04/19/19 0507 04/18/19 0800 04/18/19 0455 04/17/19 0511 WBC 7.49 8.34 7.77 7.81 HB 7.9* 8.2* 7.3* 8.4* HCT 24.7* 25.7* 23.6* 26.5* PLT 144* 151 137* 155 NA 135* -- 134* 134* K 4.5 -- 4.4 4.4 CHLOR 103 -- 102 102 CO2 20* -- 23 22 BUN 37* -- 34* 27* CREAT 1.05* -- 1.03* 1.01* GLUC 83 -- 80 77 CA 8.2* -- 8.3* 8.2* MG 2.0 -- 2.0 1.9 UA: Normal HCG:N/A ABO/ABO Confirmed: Yes Blood ordered: Yes POS ABS 4units Willing to accept blood: Yes SA Swab: Yes - results: Pending Last Dose of Anticoagulation: none Op Note: Yes with Dr. Rios Pacemaker Check: No Implants: no Consults: ID, GI DM: No Cardiac Surgical prep: Yes SIGNATURE: Myrna Car RN LABOR RELATIONS ANALYST.CONFLICTS ANALYST DATE of SERVICE: 04/19/2019 TIME of SERVICE: 11:16 AM CHECKED BY: Moderate protein-calorie malnutrition 04/12/2019 10/02/2020 Overview: History: Post-op problem. Albumin 2.9. Noted on post-op nutrition screen. Assessment: 75% of meals consumed per I/O. Plan: Follow nutrition recs. Last Assessment & Plan: - nutrition referral Parkinson's disease 03/04/2019 06/11/2019 Overview: History: Takes Sinement at home Assessment: Stable postop Plan: Resume home regimen. Last Assessment & Plan: Assessment: on Sinemet PLAN: - cont home meds Acute kidney injury 03/04/2019 03/06/2019 Last Assessment & Plan: Assessment: - noted to have HILARIO at OSH with Cr of 1.31 on presentation, improved with fluids - likely related to blood loss RESOLVED PLAN: - monitor - avoid nephrotoxins - renally dose meds Elevated troponin 12/06/2018 12/23/2018 Last Assessment & Plan: No chest pain. EKG - NSR, LVH, LAD Plan: repeat EKG and troponin Trend troponin if remains elevated here GI bleed 12/05/2018 12/23/2018 Last Assessment & Plan: Acute blood loss anemia likely from GI bleed. EGD, colonoscopy - no source of bleeding identify. CT angio Abd aorta + Iliofemoral: Enhancing polypoid lesion within the 1st segment of the duodenum concerning for slowly bleeding mass. Plan: type and screen Blood transfusion consent was taken Monitor CBC q8h for now Transfuse if Hb <7 GI consult in am Continue with PPI bid Hold ASA and other NSAID 7/[address] Bonilla's team for transgastric endoscopy + possible resection of remnant/dudenal first part if needed requested cardiology input due to severe as appreciate their input 12/19 OR on 12/21 npo at 1 am on 12/21 12/21 100 ml of periop bleed found a bleeding du and clipped saw in recovery room groggy coming out of anesthesia 2 hours procedure weaned ot 50% vm in hte theatre and brought to pacu on 2 liters out ot floor in an hour ODELL (iron deficiency anemia) 12/05/2018 Last Assessment & Plan: Assessment: most recent labs show normal H/H, but does take Ferrous sulfate Postoperative hypertension 04/26 Overview: History: 04/22/2019: AVR Assessment: Requiring NTG infusion postop Plan: Titrate to maintain MAPs 65-75. Last Assessment & Plan: Home meds: losartan 50 - was on losartan-hctz prior to December admission stable PLAN: - hold in setting of ?GI bleed Depression 12/23/2018 Last Assessment & Plan: No suicidal or homicidal ideation. Stable. Continue with Citalopram documented as of this encounter (statuses as of 11/12/2021) [facility]07-29-2020 History of Past illness Narrative* Problem Noted Date Resolved Date Other pancytopenia 01/01/2020 03/27/2020 Transition of care performed with sharing of clinical summary 04/30/2019 03/27/2020 Overview: Indication for Surgery: Prosthetic aortic valve endocarditis Preop LVEF: 75% RVF: Normal Postop LVEF: Normal RVF: Normal Cath: mild non obsx CAD Cards: Serge Harmony EKG: NSR w/ 1st degree Important/Relevant PMH/PSH: 73F from [facility] with GERD, depression, HTN, gastric bypass, PUD with recent GIB, nephrolithiasis, s/p AVR 2002 admitted with prosthetic valve endocarditis c/b severe AI, posterior root abscess, Parkinsons, CKD, overactive bladder Preoperative Hospital Course Admitted 04/10 with severe aortic insufficiency related to endocarditis Airway Difficulty: Grade I - easy Pacing wires: No. A/V pulled 04/30 Chronological list of Surgeries and Major Events 04/22/2019: Redo AVR, MVr_ 04/29/2019: PPM placement A/P of Major Active ICU Problems Cardiac: EP following for pacer dependency with ventricular rate <30 underneath. Continue DDD 80, mA 10, 5. Formal echo 04/26 showed EF 75%, RV normal. NPO, plan for PPM today. Renal:CKD-- SrCr 0.89, downtrending. Avoid nephrotoxic agents, trend fluid balance and electrolytes. 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 Continue ceftriaxone. Transferred to floor 04/29/19 To do or to watch: Access: Right arm PICC placed 04/30. - POD#7. No tubes/wires. AV paced. On room air. - s/p Redo AVR, MVr for IE: Surg path reviewed. Bacterial PCR + Streptococcus mutans. ID following. PICC placed 04/30. CoPat started. Continue Ceftriaxone through 06/03. Post-op echo completed 04/26: EF 75%, trace Mr, trivial-small pericardial effusion. - s/p PPM: Device check completed 04/30. - FVO: Up 3.7kg. Continue lasix - Dispo: 73 yo female from [place], [place]. Daughter can help. SW following. PT/OT rec home PT/OT; HHC for IV antibiotics. Face-to face ordered. Should be ready for dc when accepting facility found. [facility] f/u scheduled. [facility]TS OPD f/u requested. Discharge Planning: Anticipated Discharge Date: 05/01/2019 if HHC arranged. Barriers to Discharge: Other: accepting home care agency and - In Process Care Management Discharge Needs: Needs Prior to Discharge: Accepting Facility;IV Antibiotics Discharge planning issues 04/30/20192019 Overview: 73 yo female from [place], [place]. Daughter can help. MARYBEL following. PT/OT rec home PT/OT; HHC for IV antibiotics. Face-to face ordered. Should be ready for dc when accepting facility found. Thrombocytopenia 04/24/2019 04/26/2019 On mechanically assisted ventilation 04/22/2019 04/23/2019 Overview: History: Post op cardiac surgery requiring elective intubation Assessment: Grade I airway Plan: WTE Post-operative pain 04/22/2019 05/01/2019 Overview: History: 04/22/2019: AVR Assessment: Pain control adequate Plan: Continue scheduled Tylenol and prn oxycodone and tramadol. Preop testing 04/19/2019 04/30/2019 Overview: Date of Consult: 04/12 Type of surgery: Redo AVR/root +/- MVr Date preop tests completed:April 19, 2019 Waiting on: Date Surgeon reviewed Patient: 04/18 Patient work up completed: Waiting on: Date of decision by Surgeon: April 19, 2019 Deemed candidate: Yes Date of surgery: 04/22 Reasons for delay: na [facility] and [facility] PRE-OP CHECKLIST Surgeon: Dr. Forrest Rios Informed Consent Completed: pending STS Score: RISK SCORES Procedure: Isolated AVR CALCULATE Risk of Mortality: 4.605% Renal Failure: 3.404% Permanent Stroke: 2.380% Prolonged Ventilation: 22.071% DSW Infection: 0.035% Reoperation: 7.729% Morbidity or Mortality: 27.681% Short Length of Stay: 12.366% Long Length of Stay: 20.018% CAD: No Is intended procedure a CABG: No - H & P completed: Yes PA/LAT: Completed CT: Completed MRI: N/A LE US: N/A Cath: Yes - reviewed: Yes EKG: Completed Is patient on Amiodarone? Yes Echo:Completed EF %: 70 PI's: N/A Carotid: Completed Mapping: N/A Dental: Completed PFT's: Completed CBC, Coags, BMP, Mg, Phos Recent Labs 04/19/19 0507 04/18/19 0800 04/18/19 0455 04/17/19 0511 WBC 7.49 8.34 7.77 7.81 HB 7.9* 8.2* 7.3* 8.4* HCT 24.7* 25.7* 23.6* 26.5* PLT 144* 151 137* 155 NA 135* -- 134* 134* K 4.5 -- 4.4 4.4 CHLOR 103 -- 102 102 CO2 20* -- 23 22 BUN 37* -- 34* 27* CREAT 1.05* -- 1.03* 1.01* GLUC 83 -- 80 77 CA 8.2* -- 8.3* 8.2* MG 2.0 -- 2.0 1.9 UA: Normal HCG:N/A ABO/ABO Confirmed: Yes Blood ordered: Yes POS ABS 4units Willing to accept blood: Yes SA Swab: Yes - results: Pending Last Dose of Anticoagulation: none Op Note: Yes with Dr. Rios Pacemaker Check: No Implants: no Consults: ID, GI DM: No Cardiac Surgical prep: Yes SIGNATURE: Myrna Car RN LABOR RELATIONS ANALYST.CONFLICTS ANALYST DATE of SERVICE: 04/19/2019 TIME of SERVICE: 11:16 AM CHECKED BY: Moderate protein-calorie malnutrition 04/12/2019 10/02/2020 Overview: History: Post-op problem. Albumin 2.9. Noted on post-op nutrition screen. Assessment: 75% of meals consumed per I/O. Plan: Follow nutrition recs. Last Assessment & Plan: - nutrition referral Parkinson's disease 03/04/2019 06/11/2019 Overview: History: Takes Sinement at home Assessment: Stable postop Plan: Resume home regimen. Last Assessment & Plan: Assessment: on Sinemet PLAN: - cont home meds Acute kidney injury 03/04/2019 03/06/2019 Last Assessment & Plan: Assessment: - noted to have HILARIO at OSH with Cr of 1.31 on presentation, improved with fluids - likely related to blood loss RESOLVED PLAN: - monitor - avoid nephrotoxins - renally dose meds Elevated troponin 12/06/2018 12/23/2018 Last Assessment & Plan: No chest pain. EKG - NSR, LVH, LAD Plan: repeat EKG and troponin Trend troponin if remains elevated here GI bleed 12/05/2018 12/23/2018 Last Assessment & Plan: Acute blood loss anemia likely from GI bleed. EGD, colonoscopy - no source of bleeding identify. CT angio Abd aorta + Iliofemoral: Enhancing polypoid lesion within the 1st segment of the duodenum concerning for slowly bleeding mass. Plan: type and screen Blood transfusion consent was taken Monitor CBC q8h for now Transfuse if Hb <7 GI consult in am Continue with PPI bid Hold ASA and other NSAID 12/[address] Bonilla's team for transgastric endoscopy + possible resection of remnant/dudenal first part if needed requested cardiology input due to severe as appreciate their input 12/19 OR on 12/21 npo at 1 am on 12/21 12/21 100 ml of periop bleed found a bleeding du and clipped saw in recovery room groggy coming out of anesthesia 2 hours procedure weaned ot 50% vm in hte theatre and brought to pacu on 2 liters out ot floor in an hour ODELL (iron deficiency anemia) 12/05/2018 Last Assessment & Plan: Assessment: most recent labs show normal H/H, but does take Ferrous sulfate Postoperative hypertension 04/26 Overview: History: 04/22/2019: AVR Assessment: Requiring NTG infusion postop Plan: Titrate to maintain MAPs 65-75. Last Assessment & Plan: Home meds: losartan 50 - was on losartan-hctz prior to [facility] admission stable PLAN: - hold in setting of ?GI bleed Depression 12/23/2018 Last Assessment & Plan: No suicidal or homicidal ideation. Stable. Continue with Citalopram documented as of this encounter (statuses as of 11/23/2021) [facility]07-29-2020 History of Past illness Narrative* Problem Noted Date Resolved Date Other pancytopenia 01/01/2020 03/27/2020 Transition of care performed with sharing of clinical summary 04/30/2019 03/27/2020 Overview: Indication for Surgery: Prosthetic aortic valve endocarditis Preop LVEF: 75% RVF: Normal Postop LVEF: Normal RVF: Normal Cath: mild non obsx CAD Cards: Serge Harmony EKG: NSR w/ 1st degree Important/Relevant PMH/PSH: 73F from [facility] with GERD, depression, HTN, gastric bypass, PUD with recent GIB, nephrolithiasis, s/p AVR 2002 admitted with prosthetic valve endocarditis c/b severe AI, posterior root abscess, Parkinsons, CKD, overactive bladder Preoperative Hospital Course Admitted 04/10 with severe aortic insufficiency related to endocarditis Airway Difficulty: Grade I - easy Pacing wires: No. A/V pulled 04/30 Chronological list of Surgeries and Major Events 04/22/2019: Redo AVR, MVr_ 04/29/2019: PPM placement A/P of Major Active ICU Problems Cardiac: EP following for pacer dependency with ventricular rate <30 underneath. Continue DDD 80, mA 10, 5. Formal echo 04/26 showed EF 75%, RV normal. NPO, plan for PPM today. Renal:CKD-- SrCr 0.89, downtrending. Avoid nephrotoxic agents, trend fluid balance and electrolytes. 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 Continue ceftriaxone. Transferred to floor 04/29/19 To do or to watch: Access: Right arm PICC placed 04/30. - POD#7. No tubes/wires. AV paced. On room air. - s/p Redo AVR, MVr for IE: Surg path reviewed. Bacterial PCR + Streptococcus mutans. ID following. PICC placed 04/30. CoPat started. Continue Ceftriaxone through 06/03. Post-op echo completed 04/26: EF 75%, trace Mr, trivial-small pericardial effusion. - s/p PPM: Device check completed 04/30. - FVO: Up 3.7kg. Continue lasix - Dispo: 73 yo female from [place], [place]. Daughter can help. SW following. PT/OT rec home PT/OT; HHC for IV antibiotics. Face-to face ordered. Should be ready for dc when accepting facility found. [facility] f/u scheduled. [facility] OPD f/u requested. Discharge Planning: Anticipated Discharge Date: 05/01/2019 if HHC arranged. Barriers to Discharge: Other: accepting home care agency and - In Process Care Management Discharge Needs: Needs Prior to Discharge: Accepting Facility;IV Antibiotics Discharge planning issues 04/30/20192019 Overview: 73 yo female from [place], [place]. Daughter can help. SW following. PT/OT rec home PT/OT; HHC for IV antibiotics. Face-to face ordered. Should be ready for dc when accepting facility found. Thrombocytopenia 04/24/2019 04/26/2019 On mechanically assisted ventilation 04/22/2019 04/23/2019 Overview: History: Post op cardiac surgery requiring elective intubation Assessment: Grade I airway Plan: WTE Post-operative pain 04/22/2019 05/01/2019 Overview: History: 04/22/2019: AVR Assessment: Pain control adequate Plan: Continue scheduled Tylenol and prn oxycodone and tramadol. Preop testing 04/19/2019 04/30/2019 Overview: Date of Consult: 04/12 Type of surgery: Redo AVR/root +/- MVr Date preop tests completed:April 19, 2019 Waiting on: Date Surgeon reviewed Patient: 04/18 Patient work up completed: Waiting on: Date of decision by Surgeon: April 19, 2019 Deemed candidate: Yes Date of surgery: 04/22 Reasons for delay: na [facility] and [facility] PRE-OP CHECKLIST Surgeon: Dr. Forrest Rios Informed Consent Completed: pending STS Score: RISK SCORES Procedure: Isolated AVR CALCULATE Risk of Mortality: 4.605% Renal Failure: 3.404% Permanent Stroke: 2.380% Prolonged Ventilation: 22.071% DSW Infection: 0.035% Reoperation: 7.729% Morbidity or Mortality: 27.681% Short Length of Stay: 12.366% Long Length of Stay: 20.018% CAD: No Is intended procedure a CABG: No - H & P completed: Yes PA/LAT: Completed CT: Completed MRI: N/A LE US: N/A Cath: Yes - reviewed: Yes EKG: Completed Is patient on Amiodarone? Yes Echo:Completed EF %: 70 PI's: N/A Carotid: Completed Mapping: N/A Dental: Completed PFT's: Completed CBC, Coags, BMP, Mg, Phos Recent Labs 04/19/19 0507 04/18/19 0800 04/18/19 0455 04/17/19 0511 WBC 7.49 8.34 7.77 7.81 HB 7.9* 8.2* 7.3* 8.4* HCT 24.7* 25.7* 23.6* 26.5* PLT 144* 151 137* 155 NA 135* -- 134* 134* K 4.5 -- 4.4 4.4 CHLOR 103 -- 102 102 CO2 20* -- 23 22 BUN 37* -- 34* 27* CREAT 1.05* -- 1.03* 1.01* GLUC 83 -- 80 77 CA 8.2* -- 8.3* 8.2* MG 2.0 -- 2.0 1.9 UA: Normal HCG:N/A ABO/ABO Confirmed: Yes Blood ordered: Yes POS ABS 4units Willing to accept blood: Yes SA Swab: Yes - results: Pending Last Dose of Anticoagulation: none Op Note: Yes with Dr. Rios Pacemaker Check: No Implants: no Consults: ID, GI DM: No Cardiac Surgical prep: Yes SIGNATURE: Myrna Car RN LABOR RELATIONS ANALYST.CONFLICTS ANALYST DATE of SERVICE: 04/19/2019 TIME of SERVICE: 11:16 AM CHECKED BY: Moderate protein-calorie malnutrition 04/12/2019 10/02/2020 Overview: History: Post-op problem. Albumin 2.9. Noted on post-op nutrition screen. Assessment: 75% of meals consumed per I/O. Plan: Follow nutrition recs. Last Assessment & Plan: - nutrition referral Parkinson's disease 03/04/2019 06/11/2019 Overview: History: Takes Sinement at home Assessment: Stable postop Plan: Resume home regimen. Last Assessment & Plan: Assessment: on Sinemet PLAN: - cont home meds Acute kidney injury 03/04/2019 03/06/2019 Last Assessment & Plan: Assessment: - noted to have HILARIO at OSH with Cr of 1.31 on presentation, improved with fluids - likely related to blood loss RESOLVED PLAN: - monitor - avoid nephrotoxins - renally dose meds Elevated troponin 12/06/2018 12/23/2018 Last Assessment & Plan: No chest pain. EKG - NSR, LVH, LAD Plan: repeat EKG and troponin Trend troponin if remains elevated here GI bleed 12/05/2018 12/23/2018 Last Assessment & Plan: Acute blood loss anemia likely from GI bleed. EGD, colonoscopy - no source of bleeding identify. CT angio Abd aorta + Iliofemoral: Enhancing polypoid lesion within the 1st segment of the duodenum concerning for slowly bleeding mass. Plan: type and screen Blood transfusion consent was taken Monitor CBC q8h for now Transfuse if Hb <7 GI consult in am Continue with PPI bid Hold ASA and other NSAID 12/[address] Bonilla's team for transgastric endoscopy + possible resection of remnant/dudenal first part if needed requested cardiology input due to severe as appreciate their input 12/19 OR on 12/21 npo at 1 am on 12/21 12/21 100 ml of periop bleed found a bleeding du and clipped saw in recovery room groggy coming out of anesthesia 2 hours procedure weaned ot 50% vm in hte theatre and brought to pacu on 2 liters out ot floor in an hour ODELL (iron deficiency anemia) 12/05/2018 Last Assessment & Plan: Assessment: most recent labs show normal H/H, but does take Ferrous sulfate Postoperative hypertension 04/26 Overview: History: 04/22/2019: AVR Assessment: Requiring NTG infusion postop Plan: Titrate to maintain MAPs 65-75. Last Assessment & Plan: Home meds: losartan 50 - was on losartan-hctz prior to December admission stable PLAN: - hold in setting of ?GI bleed Depression 12/23/2018 Last Assessment & Plan: No suicidal or homicidal ideation. Stable. Continue with Citalopram documented as of this encounter (statuses as of 11/24/2021) [facility]07-29-2020 History of Past illness Narrative* Problem Noted Date Resolved Date Other pancytopenia 01/01/2020 03/27/2020 Transition of care performed with sharing of clinical summary 04/30/2019 03/27/2020 Overview: Indication for Surgery: Prosthetic aortic valve endocarditis Preop LVEF: 75% RVF: Normal Postop LVEF: Normal RVF: Normal Cath: mild non obsx CAD Cards: Papito Harmony EKG: NSR w/ 1st degree Important/Relevant PMH/PSH: 73F from [facility] with GERD, depression, HTN, gastric bypass, PUD with recent GIB, nephrolithiasis, s/p AVR 2002 admitted with prosthetic valve endocarditis c/b severe AI, posterior root abscess, Parkinsons, CKD, overactive bladder Preoperative Hospital Course Admitted 04/10 with severe aortic insufficiency related to endocarditis Airway Difficulty: Grade I - easy Pacing wires: No. A/V pulled 04/30 Chronological list of Surgeries and Major Events 04/22/2019: Redo AVR, MVr_ 04/29/2019: PPM placement A/P of Major Active ICU Problems Cardiac: EP following for pacer dependency with ventricular rate <30 underneath. Continue DDD 80, mA 10, 5. Formal echo 04/26 showed EF 75%, RV normal. NPO, plan for PPM today. Renal:CKD-- SrCr 0.89, downtrending. Avoid nephrotoxic agents, trend fluid balance and electrolytes. 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 Continue ceftriaxone. Transferred to floor 04/29/19 To do or to watch: Access: Right arm PICC placed 04/30. - POD#7. No tubes/wires. AV paced. On room air. - s/p Redo AVR, MVr for IE: Surg path reviewed. Bacterial PCR + Streptococcus mutans. ID following. PICC placed 04/30. CoPat started. Continue Ceftriaxone through 06/03. Post-op echo completed 04/26: EF 75%, trace Mr, trivial-small pericardial effusion. - s/p PPM: Device check completed 04/30. - FVO: Up 3.7kg. Continue lasix - Dispo: 73 yo female from [place], [place]. Daughter can help. SW following. PT/OT rec home PT/OT; HHC for IV antibiotics. Face-to face ordered. Should be ready for dc when accepting facility found. [facility] f/u scheduled. [facility] OPD f/u requested. Discharge Planning: Anticipated Discharge Date: 05/01/2019 if HHC arranged. Barriers to Discharge: Other: accepting home care agency and - In Process Care Management Discharge Needs: Needs Prior to Discharge: Accepting Facility;IV Antibiotics Discharge planning issues 04/30/20192019 Overview: 73 yo female from [place], [place]. Daughter can help. SW following. PT/OT rec home PT/OT; HHC for IV antibiotics. Face-to face ordered. Should be ready for dc when accepting facility found. Thrombocytopenia 04/24/2019 04/26/2019 On mechanically assisted ventilation 04/22/2019 04/23/2019 Overview: History: Post op cardiac surgery requiring elective intubation Assessment: Grade I airway Plan: WTE Post-operative pain 04/22/2019 05/01/2019 Overview: History: 04/22/2019: AVR Assessment: Pain control adequate Plan: Continue scheduled Tylenol and prn oxycodone and tramadol. Preop testing 04/19/2019 04/30/2019 Overview: Date of Consult: 04/12 Type of surgery: Redo AVR/root +/- MVr Date preop tests completed:April 19, 2019 Waiting on: Date Surgeon reviewed Patient: 04/18 Patient work up completed: Waiting on: Date of decision by Surgeon: April 19, 2019 Deemed candidate: Yes Date of surgery: 04/22 Reasons for delay: na [facility] and [facility] PRE-OP CHECKLIST Surgeon: Dr. Forrest Rios Informed Consent Completed: pending STS Score: RISK SCORES Procedure: Isolated AVR CALCULATE Risk of Mortality: 4.605% Renal Failure: 3.404% Permanent Stroke: 2.380% Prolonged Ventilation: 22.071% DSW Infection: 0.035% Reoperation: 7.729% Morbidity or Mortality: 27.681% Short Length of Stay: 12.366% Long Length of Stay: 20.018% CAD: No Is intended procedure a CABG: No - H & P completed: Yes PA/LAT: Completed CT: Completed MRI: N/A LE US: N/A Cath: Yes - reviewed: Yes EKG: Completed Is patient on Amiodarone? Yes Echo:Completed EF %: 70 PI's: N/A Carotid: Completed Mapping: N/A Dental: Completed PFT's: Completed CBC, Coags, BMP, Mg, Phos Recent Labs 04/19/19 0507 04/18/19 0800 04/18/19 0455 04/17/19 0511 WBC 7.49 8.34 7.77 7.81 HB 7.9* 8.2* 7.3* 8.4* HCT 24.7* 25.7* 23.6* 26.5* PLT 144* 151 137* 155 NA 135* -- 134* 134* K 4.5 -- 4.4 4.4 CHLOR 103 -- 102 102 CO2 20* -- 23 22 BUN 37* -- 34* 27* CREAT 1.05* -- 1.03* 1.01* GLUC 83 -- 80 77 CA 8.2* -- 8.3* 8.2* MG 2.0 -- 2.0 1.9 UA: Normal HCG:N/A ABO/ABO Confirmed: Yes Blood ordered: Yes POS ABS 4units Willing to accept blood: Yes SA Swab: Yes - results: Pending Last Dose of Anticoagulation: none Op Note: Yes with Dr. Rios Pacemaker Check: No Implants: no Consults: ID, GI DM: No Cardiac Surgical prep: Yes SIGNATURE: Myrna Car RN LABOR RELATIONS ANALYST.CONFLICTS ANALYST DATE of SERVICE: 04/19/2019 TIME of SERVICE: 11:16 AM CHECKED BY: Moderate protein-calorie malnutrition 04/12/2019 10/02/2020 Overview: History: Post-op problem. Albumin 2.9. Noted on post-op nutrition screen. Assessment: 75% of meals consumed per I/O. Plan: Follow nutrition recs. Last Assessment & Plan: - nutrition referral Parkinson's disease 03/04/2019 06/11/2019 Overview: History: Takes Sinement at home Assessment: Stable postop Plan: Resume home regimen. Last Assessment & Plan: Assessment: on Sinemet PLAN: - cont home meds Acute kidney injury 03/04/2019 03/06/2019 Last Assessment & Plan: Assessment: - noted to have HILARIO at OSH with Cr of 1.31 on presentation, improved with fluids - likely related to blood loss RESOLVED PLAN: - monitor - avoid nephrotoxins - renally dose meds Elevated troponin 12/06/2018 12/23/2018 Last Assessment & Plan: No chest pain. EKG - NSR, LVH, LAD Plan: repeat EKG and troponin Trend troponin if remains elevated here GI bleed 12/05/2018 12/23/2018 Last Assessment & Plan: Acute blood loss anemia likely from GI bleed. EGD, colonoscopy - no source of bleeding identify. CT angio Abd aorta + Iliofemoral: Enhancing polypoid lesion within the 1st segment of the duodenum concerning for slowly bleeding mass. Plan: type and screen Blood transfusion consent was taken Monitor CBC q8h for now Transfuse if Hb <7 GI consult in am Continue with PPI bid Hold ASA and other NSAID 12/[address] Bonilla's team for transgastric endoscopy + possible resection of remnant/dudenal first part if needed requested cardiology input due to severe as appreciate their input 12/19 OR on 12/21 npo at 1 am on 12/21 12/21 100 ml of periop bleed found a bleeding du and clipped saw in recovery room groggy coming out of anesthesia 2 hours procedure weaned ot 50% vm in hte theatre and brought to pacu on 2 liters out ot floor in an hour ODELL (iron deficiency anemia) 12/05/2018 Last Assessment & Plan: Assessment: most recent labs show normal H/H, but does take Ferrous sulfate Postoperative hypertension 04/26 Overview: History: 04/22/2019: AVR Assessment: Requiring NTG infusion postop Plan: Titrate to maintain MAPs 65-75. Last Assessment & Plan: Home meds: losartan 50 - was on losartan-hctz prior to December admission stable PLAN: - hold in setting of ?GI bleed Depression 12/23/2018 Last Assessment & Plan: No suicidal or homicidal ideation. Stable. Continue with Citalopram documented as of this encounter (statuses as of 11/26/2021) [facility]07-29-2020 History of Past illness Narrative* Problem Noted Date Resolved Date Other pancytopenia 01/01/2020 03/27/2020 Transition of care performed with sharing of clinical summary 04/30/2019 03/27/2020 Overview: Indication for Surgery: Prosthetic aortic valve endocarditis Preop LVEF: 75% RVF: Normal Postop LVEF: Normal RVF: Normal Cath: mild non obsx CAD Cards: [facility] EKG: NSR w/ 1st degree Important/Relevant PMH/PSH: 73F from [facility] with GERD, depression, HTN, gastric bypass, PUD with recent GIB, nephrolithiasis, s/p AVR 2002 admitted with prosthetic valve endocarditis c/b severe AI, posterior root abscess, Parkinsons, CKD, overactive bladder Preoperative Hospital Course Admitted 04/10 with severe aortic insufficiency related to endocarditis Airway Difficulty: Grade I - easy Pacing wires: No. A/V pulled 04/30 Chronological list of Surgeries and Major Events 04/22/2019: Redo AVR, MVr_ 04/29/2019: PPM placement A/P of Major Active ICU Problems Cardiac: EP following for pacer dependency with ventricular rate <30 underneath. Continue DDD 80, mA 10, 5. Formal echo 04/26 showed EF 75%, RV normal. NPO, plan for PPM today. Renal:CKD-- SrCr 0.89, downtrending. Avoid nephrotoxic agents, trend fluid balance and electrolytes. 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 Continue ceftriaxone. Transferred to floor 04/29/19 To do or to watch: Access: Right arm PICC placed 04/30. - POD#7. No tubes/wires. AV paced. On room air. - s/p Redo AVR, MVr for IE: Surg path reviewed. Bacterial PCR + Streptococcus mutans. ID following. PICC placed 04/30. CoPat started. Continue Ceftriaxone through 06/03. Post-op echo completed 04/26: EF 75%, trace Mr, trivial-small pericardial effusion. - s/p PPM: Device check completed 04/30. - FVO: Up 3.7kg. Continue lasix - Dispo: 73 yo female from [place], [place]. Daughter can help. SW following. PT/OT rec home PT/OT; HHC for IV antibiotics. Face-to face ordered. Should be ready for dc when accepting facility found. [facility] f/u scheduled. [facility] OPD f/u requested. Discharge Planning: Anticipated Discharge Date: 05/01/2019 if HHC arranged. Barriers to Discharge: Other: accepting home care agency and - In Process Care Management Discharge Needs: Needs Prior to Discharge: Accepting Facility;IV Antibiotics Discharge planning issues 04/30/20192019 Overview: 73 yo female from [place], [place]. Daughter can help. SW following. PT/OT rec home PT/OT; HHC for IV antibiotics. Face-to face ordered. Should be ready for dc when accepting facility found. Thrombocytopenia 04/24/2019 04/26/2019 On mechanically assisted ventilation 04/22/2019 04/23/2019 Overview: History: Post op cardiac surgery requiring elective intubation Assessment: Grade I airway Plan: WTE Post-operative pain 04/22/2019 05/01/2019 Overview: History: 04/22/2019: AVR Assessment: Pain control adequate Plan: Continue scheduled Tylenol and prn oxycodone and tramadol. Preop testing 04/19/2019 04/30/2019 Overview: Date of Consult: 04/12 Type of surgery: Redo AVR/root +/- MVr Date preop tests completed:April 19, 2019 Waiting on: Date Surgeon reviewed Patient: 04/18 Patient work up completed: Waiting on: Date of decision by Surgeon: April 19, 2019 Deemed candidate: Yes Date of surgery: 04/22 Reasons for delay: na [facility] and [facility] PRE-OP CHECKLIST Surgeon: Dr. Forrest Rios Informed Consent Completed: pending STS Score: RISK SCORES Procedure: Isolated AVR CALCULATE Risk of Mortality: 4.605% Renal Failure: 3.404% Permanent Stroke: 2.380% Prolonged Ventilation: 22.071% DSW Infection: 0.035% Reoperation: 7.729% Morbidity or Mortality: 27.681% Short Length of Stay: 12.366% Long Length of Stay: 20.018% CAD: No Is intended procedure a CABG: No - H & P completed: Yes PA/LAT: Completed CT: Completed MRI: N/A LE US: N/A Cath: Yes - reviewed: Yes EKG: Completed Is patient on Amiodarone? Yes Echo:Completed EF %: 70 PI's: N/A Carotid: Completed Mapping: N/A Dental: Completed PFT's: Completed CBC, Coags, BMP, Mg, Phos Recent Labs 04/19/19 0507 04/18/19 0800 04/18/19 0455 04/17/19 0511 WBC 7.49 8.34 7.77 7.81 HB 7.9* 8.2* 7.3* 8.4* HCT 24.7* 25.7* 23.6* 26.5* PLT 144* 151 137* 155 NA 135* -- 134* 134* K 4.5 -- 4.4 4.4 CHLOR 103 -- 102 102 CO2 20* -- 23 22 BUN 37* -- 34* 27* CREAT 1.05* -- 1.03* 1.01* GLUC 83 -- 80 77 CA 8.2* -- 8.3* 8.2* MG 2.0 -- 2.0 1.9 UA: Normal HCG:N/A ABO/ABO Confirmed: Yes Blood ordered: Yes POS ABS 4units Willing to accept blood: Yes SA Swab: Yes - results: Pending Last Dose of Anticoagulation: none Op Note: Yes with Dr. Rios Pacemaker Check: No Implants: no Consults: ID, GI DM: No Cardiac Surgical prep: Yes SIGNATURE: Myrna Car RN LABOR RELATIONS ANALYST.CONFLICTS ANALYST DATE of SERVICE: 04/19/2019 TIME of SERVICE: 11:16 AM CHECKED BY: Moderate protein-calorie malnutrition 04/12/2019 10/02/2020 Overview: History: Post-op problem. Albumin 2.9. Noted on post-op nutrition screen. Assessment: 75% of meals consumed per I/O. Plan: Follow nutrition recs. Last Assessment & Plan: - nutrition referral Parkinson's disease 03/04/2019 06/11/2019 Overview: History: Takes Sinement at home Assessment: Stable postop Plan: Resume home regimen. Last Assessment & Plan: Assessment: on Sinemet PLAN: - cont home meds Acute kidney injury 03/04/2019 03/06/2019 Last Assessment & Plan: Assessment: - noted to have HILARIO at OSH with Cr of 1.31 on presentation, improved with fluids - likely related to blood loss RESOLVED PLAN: - monitor - avoid nephrotoxins - renally dose meds Elevated troponin 12/06/2018 12/23/2018 Last Assessment & Plan: No chest pain. EKG - NSR, LVH, LAD Plan: repeat EKG and troponin Trend troponin if remains elevated here GI bleed 12/05/2018 12/23/2018 Last Assessment & Plan: Acute blood loss anemia likely from GI bleed. EGD, colonoscopy - no source of bleeding identify. CT angio Abd aorta + Iliofemoral: Enhancing polypoid lesion within the 1st segment of the duodenum concerning for slowly bleeding mass. Plan: type and screen Blood transfusion consent was taken Monitor CBC q8h for now Transfuse if Hb <7 GI consult in am Continue with PPI bid Hold ASA and other NSAID 12/[address] Bonilla's team for transgastric endoscopy + possible resection of remnant/dudenal first part if needed requested cardiology input due to severe as appreciate their input 12/19 OR on 12/21 npo at 1 am on 12/21 12/21 100 ml of periop bleed found a bleeding du and clipped saw in recovery room groggy coming out of anesthesia 2 hours procedure weaned ot 50% vm in hte theatre and brought to pacu on 2 liters out ot floor in an hour ODELL (iron deficiency anemia) 12/05/2018 Last Assessment & Plan: Assessment: most recent labs show normal H/H, but does take Ferrous sulfate Postoperative hypertension 04/26 Overview: History: 04/22/2019: AVR Assessment: Requiring NTG infusion postop Plan: Titrate to maintain MAPs 65-75. Last Assessment & Plan: Home meds: losartan 50 - was on losartan-hctz prior to December admission stable PLAN: - hold in setting of ?GI bleed Depression 12/23/2018 Last Assessment & Plan: No suicidal or homicidal ideation. Stable. Continue with Citalopram documented as of this encounter (statuses as of 11/30/2021) [facility]07-29-2020 History of Past illness Narrative* Problem Noted Date Resolved Date Other pancytopenia 01/01/2020 03/27/2020 Transition of care performed with sharing of clinical summary 04/30/2019 03/27/2020 Overview: Indication for Surgery: Prosthetic aortic valve endocarditis Preop LVEF: 75% RVF: Normal Postop LVEF: Normal RVF: Normal Cath: mild non obsx CAD Cards: [facility] EKG: NSR w/ 1st degree Important/Relevant PMH/PSH: 73F from [facility] with GERD, depression, HTN, gastric bypass, PUD with recent GIB, nephrolithiasis, s/p AVR 2002 admitted with prosthetic valve endocarditis c/b severe AI, posterior root abscess, Parkinsons, CKD, overactive bladder Preoperative Hospital Course Admitted 04/10 with severe aortic insufficiency related to endocarditis Airway Difficulty: Grade I - easy Pacing wires: No. A/V pulled 04/30 Chronological list of Surgeries and Major Events 04/22/2019: Redo AVR, MVr_ 04/29/2019: PPM placement A/P of Major Active ICU Problems Cardiac: EP following for pacer dependency with ventricular rate <30 underneath. Continue DDD 80, mA 10, 5. Formal echo 04/26 showed EF 75%, RV normal. NPO, plan for PPM today. Renal:CKD-- SrCr 0.89, downtrending. Avoid nephrotoxic agents, trend fluid balance and electrolytes. 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 Continue ceftriaxone. Transferred to floor 04/29/19 To do or to watch: Access: Right arm PICC placed 04/30. - POD#7. No tubes/wires. AV paced. On room air. - s/p Redo AVR, MVr for IE: Surg path reviewed. Bacterial PCR + Streptococcus mutans. ID following. PICC placed 04/30. CoPat started. Continue Ceftriaxone through 06/03. Post-op echo completed 04/26: EF 75%, trace Mr, trivial-small pericardial effusion. - s/p PPM: Device check completed 04/30. - FVO: Up 3.7kg. Continue lasix - Dispo: 73 yo female from [place], [place]. Daughter can help. SW following. PT/OT rec home PT/OT; HHC for IV antibiotics. Face-to face ordered. Should be ready for dc when accepting facility found. [facility]iology f/u scheduled. [facility] OPD f/u requested. Discharge Planning: Anticipated Discharge Date: 05/01/2019 if HHC arranged. Barriers to Discharge: Other: accepting home care agency and - In Process Care Management Discharge Needs: Needs Prior to Discharge: Accepting Facility;IV Antibiotics Discharge planning issues 04/30/20192019 Overview: 73 yo female from [place], [place]. Daughter can help. SW following. PT/OT rec home PT/OT; HHC for IV antibiotics. Face-to face ordered. Should be ready for dc when accepting facility found. Thrombocytopenia 04/24/2019 04/26/2019 On mechanically assisted ventilation 04/22/2019 04/23/2019 Overview: History: Post op cardiac surgery requiring elective intubation Assessment: Grade I airway Plan: WTE Post-operative pain 04/22/2019 05/01/2019 Overview: History: 04/22/2019: AVR Assessment: Pain control adequate Plan: Continue scheduled Tylenol and prn oxycodone and tramadol. Preop testing 04/19/2019 04/30/2019 Overview: Date of Consult: 04/12 Type of surgery: Redo AVR/root +/- MVr Date preop tests completed:April 19, 2019 Waiting on: Date Surgeon reviewed Patient: 04/18 Patient work up completed: Waiting on: Date of decision by Surgeon: April 19, 2019 Deemed candidate: Yes Date of surgery: 04/22 Reasons for delay: na [facility] and [facility] PRE-OP CHECKLIST Surgeon: Dr. Forrest Rios Informed Consent Completed: pending STS Score: RISK SCORES Procedure: Isolated AVR CALCULATE Risk of Mortality: 4.605% Renal Failure: 3.404% Permanent Stroke: 2.380% Prolonged Ventilation: 22.071% DSW Infection: 0.035% Reoperation: 7.729% Morbidity or Mortality: 27.681% Short Length of Stay: 12.366% Long Length of Stay: 20.018% CAD: No Is intended procedure a CABG: No - H & P completed: Yes PA/LAT: Completed CT: Completed MRI: N/A LE US: N/A Cath: Yes - reviewed: Yes EKG: Completed Is patient on Amiodarone? Yes Echo:Completed EF %: 70 PI's: N/A Carotid: Completed Mapping: N/A Dental: Completed PFT's: Completed CBC, Coags, BMP, Mg, Phos Recent Labs 04/19/19 0507 04/18/19 0800 04/18/19 0455 04/17/19 0511 WBC 7.49 8.34 7.77 7.81 HB 7.9* 8.2* 7.3* 8.4* HCT 24.7* 25.7* 23.6* 26.5* PLT 144* 151 137* 155 NA 135* -- 134* 134* K 4.5 -- 4.4 4.4 CHLOR 103 -- 102 102 CO2 20* -- 23 22 BUN 37* -- 34* 27* CREAT 1.05* -- 1.03* 1.01* GLUC 83 -- 80 77 CA 8.2* -- 8.3* 8.2* MG 2.0 -- 2.0 1.9 UA: Normal HCG:N/A ABO/ABO Confirmed: Yes Blood ordered: Yes POS ABS 4units Willing to accept blood: Yes SA Swab: Yes - results: Pending Last Dose of Anticoagulation: none Op Note: Yes with Dr. Rios Pacemaker Check: No Implants: no Consults: ID, GI DM: No Cardiac Surgical prep: Yes SIGNATURE: Myrna Car RN LABOR RELATIONS ANALYST.CONFLICTS ANALYST DATE of SERVICE: 04/19/2019 TIME of SERVICE: 11:16 AM CHECKED BY: Moderate protein-calorie malnutrition 04/12/2019 10/02/2020 Overview: History: Post-op problem. Albumin 2.9. Noted on post-op nutrition screen. Assessment: 75% of meals consumed per I/O. Plan: Follow nutrition recs. Last Assessment & Plan: - nutrition referral Parkinson's disease 03/04/2019 06/11/2019 Overview: History: Takes Sinement at home Assessment: Stable postop Plan: Resume home regimen. Last Assessment & Plan: Assessment: on Sinemet PLAN: - cont home meds Acute kidney injury 03/04/2019 03/06/2019 Last Assessment & Plan: Assessment: - noted to have HILARIO at OSH with Cr of 1.31 on presentation, improved with fluids - likely related to blood loss RESOLVED PLAN: - monitor - avoid nephrotoxins - renally dose meds Elevated troponin 12/06/2018 12/23/2018 Last Assessment & Plan: No chest pain. EKG - NSR, LVH, LAD Plan: repeat EKG and troponin Trend troponin if remains elevated here GI bleed 12/05/2018 12/23/2018 Last Assessment & Plan: Acute blood loss anemia likely from GI bleed. EGD, colonoscopy - no source of bleeding identify. CT angio Abd aorta + Iliofemoral: Enhancing polypoid lesion within the 1st segment of the duodenum concerning for slowly bleeding mass. Plan: type and screen Blood transfusion consent was taken Monitor CBC q8h for now Transfuse if Hb <7 GI consult in am Continue with PPI bid Hold ASA and other NSAID 12/[address] Bonilla's team for transgastric endoscopy + possible resection of remnant/dudenal first part if needed requested cardiology input due to severe as appreciate their input 12/19 OR on 12/21 npo at 1 am on 12/21 12/21 100 ml of periop bleed found a bleeding du and clipped saw in recovery room groggy coming out of anesthesia 2 hours procedure weaned ot 50% vm in hte theatre and brought to pacu on 2 liters out ot floor in an hour ODELL (iron deficiency anemia) 12/05/2018 Last Assessment & Plan: Assessment: most recent labs show normal H/H, but does take Ferrous sulfate Postoperative hypertension 04/26 Overview: History: 04/22/2019: AVR Assessment: Requiring NTG infusion postop Plan: Titrate to maintain MAPs 65-75. Last Assessment & Plan: Home meds: losartan 50 - was on losartan-hctz prior to December admission stable PLAN: - hold in setting of ?GI bleed Depression 12/23/2018 Last Assessment & Plan: No suicidal or homicidal ideation. Stable. Continue with Citalopram documented as of this encounter (statuses as of 12/10/2021) [facility]07-[facility]-2020 History of Past illness Narrative* Problem Noted Date Resolved Date Other pancytopenia 01/01/2020 03/27/2020 Transition of care performed with sharing of clinical summary 04/30/2019 03/27/2020 Overview: Indication for Surgery: Prosthetic aortic valve endocarditis Preop LVEF: 75% RVF: Normal Postop LVEF: Normal RVF: Normal Cath: mild non obsx CAD Cards: [facility] EKG: NSR w/ 1st degree Important/Relevant PMH/PSH: 73F from [facility] with GERD, depression, HTN, gastric bypass, PUD with recent GIB, nephrolithiasis, s/p AVR 2002 admitted with prosthetic valve endocarditis c/b severe AI, posterior root abscess, Parkinsons, CKD, overactive bladder Preoperative Hospital Course Admitted 04/10 with severe aortic insufficiency related to endocarditis Airway Difficulty: Grade I - easy Pacing wires: No. A/V pulled 04/30 Chronological list of Surgeries and Major Events 04/22/2019: Redo AVR, MVr_ 04/29/2019: PPM placement A/P of Major Active ICU Problems Cardiac: EP following for pacer dependency with ventricular rate <30 underneath. Continue DDD 80, mA 10, 5. Formal echo 04/26 showed EF 75%, RV normal. NPO, plan for PPM today. Renal:CKD-- SrCr 0.89, downtrending. Avoid nephrotoxic agents, trend fluid balance and electrolytes. 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 Continue ceftriaxone. Transferred to floor 04/29/19 To do or to watch: Access: Right arm PICC placed 04/30. - POD#7. No tubes/wires. AV paced. On room air. - s/p Redo AVR, MVr for IE: Surg path reviewed. Bacterial PCR + Streptococcus mutans. ID following. PICC placed 04/30. CoPat started. Continue Ceftriaxone through 06/03. Post-op echo completed 04/26: EF 75%, trace Mr, trivial-small pericardial effusion. - s/p PPM: Device check completed 04/30. - FVO: Up 3.7kg. Continue lasix - Dispo: 73 yo female from [place], [place]. Daughter can help. SW following. PT/OT rec home PT/OT; HHC for IV antibiotics. Face-to face ordered. Should be ready for dc when accepting facility found. [facility] f/u scheduled. [facility] OPD f/u requested. Discharge Planning: Anticipated Discharge Date: 05/01/2019 if HHC arranged. Barriers to Discharge: Other: accepting home care agency and - In Process Care Management Discharge Needs: Needs Prior to Discharge: Accepting Facility;IV Antibiotics Discharge planning issues 04/30/20192019 Overview: 73 yo female from [place], [place]. Daughter can help. SW following. PT/OT rec home PT/OT; HHC for IV antibiotics. Face-to face ordered. Should be ready for dc when accepting facility found. Thrombocytopenia 04/24/2019 04/26/2019 On mechanically assisted ventilation 04/22/2019 04/23/2019 Overview: History: Post op cardiac surgery requiring elective intubation Assessment: Grade I airway Plan: WTE Post-operative pain 04/22/2019 05/01/2019 Overview: History: 04/22/2019: AVR Assessment: Pain control adequate Plan: Continue scheduled Tylenol and prn oxycodone and tramadol. Preop testing 04/19/2019 04/30/2019 Overview: Date of Consult: 04/12 Type of surgery: Redo AVR/root +/- MVr Date preop tests completed:April 19, 2019 Waiting on: Date Surgeon reviewed Patient: 04/18 Patient work up completed: Waiting on: Date of decision by Surgeon: April 19, 2019 Deemed candidate: Yes Date of surgery: 04/22 Reasons for delay: na [facility]ART and [facility] PRE-OP CHECKLIST Surgeon: Dr. Forrest Rios Informed Consent Completed: pending STS Score: RISK SCORES Procedure: Isolated AVR CALCULATE Risk of Mortality: 4.605% Renal Failure: 3.404% Permanent Stroke: 2.380% Prolonged Ventilation: 22.071% DSW Infection: 0.035% Reoperation: 7.729% Morbidity or Mortality: 27.681% Short Length of Stay: 12.366% Long Length of Stay: 20.018% CAD: No Is intended procedure a CABG: No - H & P completed: Yes PA/LAT: Completed CT: Completed MRI: N/A LE US: N/A Cath: Yes - reviewed: Yes EKG: Completed Is patient on Amiodarone? Yes Echo:Completed EF %: 70 PI's: N/A Carotid: Completed Mapping: N/A Dental: Completed PFT's: Completed CBC, Coags, BMP, Mg, Phos Recent Labs 04/19/19 0507 04/18/19 0800 04/18/19 0455 04/17/19 0511 WBC 7.49 8.34 7.77 7.81 HB 7.9* 8.2* 7.3* 8.4* HCT 24.7* 25.7* 23.6* 26.5* PLT 144* 151 137* 155 NA 135* -- 134* 134* K 4.5 -- 4.4 4.4 CHLOR 103 -- 102 102 CO2 20* -- 23 22 BUN 37* -- 34* 27* CREAT 1.05* -- 1.03* 1.01* GLUC 83 -- 80 77 CA 8.2* -- 8.3* 8.2* MG 2.0 -- 2.0 1.9 UA: Normal HCG:N/A ABO/ABO Confirmed: Yes Blood ordered: Yes POS ABS 4units Willing to accept blood: Yes SA Swab: Yes - results: Pending Last Dose of Anticoagulation: none Op Note: Yes with Dr. Rios Pacemaker Check: No Implants: no Consults: ID, GI DM: No Cardiac Surgical prep: Yes SIGNATURE: Myrna Car RN LABOR RELATIONS ANALYSTIBAN DATE of SERVICE: 04/19/2019 TIME of SERVICE: 11:16 AM CHECKED BY: Moderate protein-calorie malnutrition 04/12/2019 10/02/2020 Overview: History: Post-op problem. Albumin 2.9. Noted on post-op nutrition screen. Assessment: 75% of meals consumed per I/O. Plan: Follow nutrition recs. Last Assessment & Plan: - nutrition referral Parkinson's disease 03/04/2019 06/11/2019 Overview: History: Takes Sinement at home Assessment: Stable postop Plan: Resume home regimen. Last Assessment & Plan: Assessment: on Sinemet PLAN: - cont home meds Acute kidney injury 03/04/2019 03/06/2019 Last Assessment & Plan: Assessment: - noted to have HILARIO at OSH with Cr of 1.31 on presentation, improved with fluids - likely related to blood loss RESOLVED PLAN: - monitor - avoid nephrotoxins - renally dose meds Elevated troponin 12/06/2018 12/23/2018 Last Assessment & Plan: No chest pain. EKG - NSR, LVH, LAD Plan: repeat EKG and troponin Trend troponin if remains elevated here GI bleed 12/05/2018 12/23/2018 Last Assessment & Plan: Acute blood loss anemia likely from GI bleed. EGD, colonoscopy - no source of bleeding identify. CT angio Abd aorta + Iliofemoral: Enhancing polypoid lesion within the 1st segment of the duodenum concerning for slowly bleeding mass. Plan: type and screen Blood transfusion consent was taken Monitor CBC q8h for now Transfuse if Hb <7 GI consult in am Continue with PPI bid Hold ASA and other NSAID 12/[address] Bonilla's team for transgastric endoscopy + possible resection of remnant/dudenal first part if needed requested cardiology input due to severe as appreciate their input 12/19 OR on 12/21 npo at 1 am on 12/21 12/21 100 ml of periop bleed found a bleeding du and clipped saw in recovery room groggy coming out of anesthesia 2 hours procedure weaned ot 50% vm in hte theatre and brought to pacu on 2 liters out ot floor in an hour ODELL (iron deficiency anemia) 12/05/2018 Last Assessment & Plan: Assessment: most recent labs show normal H/H, but does take Ferrous sulfate Postoperative hypertension 04/26 Overview: History: 04/22/2019: AVR Assessment: Requiring NTG infusion postop Plan: Titrate to maintain MAPs 65-75. Last Assessment & Plan: Home meds: losartan 50 - was on losartan-hctz prior to December admission stable PLAN: - hold in setting of ?GI bleed Depression 12/23/2018 Last Assessment & Plan: No suicidal or homicidal ideation. Stable. Continue with Citalopram documented as of this encounter (statuses as of 12/27/2021) [facility]07-29-2020 History of Past illness Narrative* Problem Noted Date Resolved Date Other pancytopenia 01/01/2020 03/27/2020 Transition of care performed with sharing of clinical summary 04/30/2019 03/27/2020 Overview: Indication for Surgery: Prosthetic aortic valve endocarditis Preop LVEF: 75% RVF: Normal Postop LVEF: Normal RVF: Normal Cath: mild non obsx CAD Cards: [facility] EKG: NSR w/ 1st degree Important/Relevant PMH/PSH: 73F from [place] with GERD, depression, HTN, gastric bypass, PUD with recent GIB, nephrolithiasis, s/p AVR 2002 admitted with prosthetic valve endocarditis c/b severe AI, posterior root abscess, Parkinsons, CKD, overactive bladder Preoperative Hospital Course Admitted 04/10 with severe aortic insufficiency related to endocarditis Airway Difficulty: Grade I - easy Pacing wires: No. A/V pulled 04/30 Chronological list of Surgeries and Major Events 04/22/2019: Redo AVR, MVr_ 04/29/2019: PPM placement A/P of Major Active ICU Problems Cardiac: EP following for pacer dependency with ventricular rate <30 underneath. Continue DDD 80, mA 10, 5. Formal echo 04/26 showed EF 75%, RV normal. NPO, plan for PPM today. Renal:CKD-- SrCr 0.89, downtrending. Avoid nephrotoxic agents, trend fluid balance and electrolytes. 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 Continue ceftriaxone. Transferred to floor 04/29/19 To do or to watch: Access: Right arm PICC placed 04/30. - POD#7. No tubes/wires. AV paced. On room air. - s/p Redo AVR, MVr for IE: Surg path reviewed. Bacterial PCR + Streptococcus mutans. ID following. PICC placed 04/30. CoPat started. Continue Ceftriaxone through 06/03. Post-op echo completed 04/26: EF 75%, trace Mr, trivial-small pericardial effusion. - s/p PPM: Device check completed 04/30. - FVO: Up 3.7kg. Continue lasix - Dispo: 73 yo female from [place], [place]. Daughter can help. SW following. PT/OT rec home PT/OT; [facility] for IV antibiotics. Face-to face ordered. Should be ready for dc when accepting facility found. [facility] f/u scheduled. [facility] OPD f/u requested. Discharge Planning: Anticipated Discharge Date: 05/01/2019 if HHC arranged. Barriers to Discharge: Other: accepting home care agency and - In Process Care Management Discharge Needs: Needs Prior to Discharge: Accepting Facility;IV Antibiotics Discharge planning issues 04/30/20192019 Overview: 73 yo female from [place], [place]. Daughter can help. SW following. PT/OT rec home PT/OT; [facility] for IV antibiotics. Face-to face ordered. Should be ready for dc when accepting facility found. Thrombocytopenia 04/24/2019 04/26/2019 On mechanically assisted ventilation 04/22/2019 04/23/2019 Overview: History: Post op cardiac surgery requiring elective intubation Assessment: Grade I airway Plan: WTE Post-operative pain 04/22/2019 05/01/2019 Overview: History: 04/22/2019: AVR Assessment: Pain control adequate Plan: Continue scheduled Tylenol and prn oxycodone and tramadol. Preop testing 04/19/2019 04/30/2019 Overview: Date of Consult: 04/12 Type of surgery: Redo AVR/root +/- MVr Date preop tests completed:April 19, 2019 Waiting on: Date Surgeon reviewed Patient: 04/18 Patient work up completed: Waiting on: Date of decision by Surgeon: April 19, 2019 Deemed candidate: Yes Date of surgery: 04/22 Reasons for delay: na [facility] and [facility] PRE-OP CHECKLIST Surgeon: Dr. Forrest Rios Informed Consent Completed: pending STS Score: RISK SCORES Procedure: Isolated AVR CALCULATE Risk of Mortality: 4.605% Renal Failure: 3.404% Permanent Stroke: 2.380% Prolonged Ventilation: 22.071% DSW Infection: 0.035% Reoperation: 7.729% Morbidity or Mortality: 27.681% Short Length of Stay: 12.366% Long Length of Stay: 20.018% CAD: No Is intended procedure a CABG: No - H & P completed: Yes PA/LAT: Completed CT: Completed MRI: N/A LE US: N/A Cath: Yes - reviewed: Yes EKG: Completed Is patient on Amiodarone? Yes Echo:Completed EF %: 70 PI's: N/A Carotid: Completed Mapping: N/A Dental: Completed PFT's: Completed CBC, Coags, BMP, Mg, Phos Recent Labs 04/19/19 0507 04/18/19 0800 04/18/19 0455 04/17/19 0511 WBC 7.49 8.34 7.77 7.81 HB 7.9* 8.2* 7.3* 8.4* HCT 24.7* 25.7* 23.6* 26.5* PLT 144* 151 137* 155 NA 135* -- 134* 134* K 4.5 -- 4.4 4.4 CHLOR 103 -- 102 102 CO2 20* -- 23 22 BUN 37* -- 34* 27* CREAT 1.05* -- 1.03* 1.01* GLUC 83 -- 80 77 CA 8.2* -- 8.3* 8.2* MG 2.0 -- 2.0 1.9 UA: Normal HCG:N/A ABO/ABO Confirmed: Yes Blood ordered: Yes POS ABS 4units Willing to accept blood: Yes SA Swab: Yes - results: Pending Last Dose of Anticoagulation: none Op Note: Yes with Dr. Rios Pacemaker Check: No Implants: no Consults: ID, GI DM: No Cardiac Surgical prep: Yes SIGNATURE: Myrna Car RN LABOR RELATIONS ANALYST.CONFLICTS ANALYST DATE of SERVICE: 04/19/2019 TIME of SERVICE: 11:16 AM CHECKED BY: Moderate protein-calorie malnutrition 04/12/2019 10/02/2020 Overview: History: Post-op problem. Albumin 2.9. Noted on post-op nutrition screen. Assessment: 75% of meals consumed per I/O. Plan: Follow nutrition recs. Last Assessment & Plan: - nutrition referral Parkinson's disease 03/04/2019 06/11/2019 Overview: History: Takes Sinement at home Assessment: Stable postop Plan: Resume home regimen. Last Assessment & Plan: Assessment: on Sinemet PLAN: - cont home meds Acute kidney injury 03/04/2019 03/06/2019 Last Assessment & Plan: Assessment: - noted to have HILARIO at OSH with Cr of 1.31 on presentation, improved with fluids - likely related to blood loss RESOLVED PLAN: - monitor - avoid nephrotoxins - renally dose meds Elevated troponin 12/06/2018 12/23/2018 Last Assessment & Plan: No chest pain. EKG - NSR, LVH, LAD Plan: repeat EKG and troponin Trend troponin if remains elevated here GI bleed 12/05/2018 12/23/2018 Last Assessment & Plan: Acute blood loss anemia likely from GI bleed. EGD, colonoscopy - no source of bleeding identify. CT angio Abd aorta + Iliofemoral: Enhancing polypoid lesion within the 1st segment of the duodenum concerning for slowly bleeding mass. Plan: type and screen Blood transfusion consent was taken Monitor CBC q8h for now Transfuse if Hb <7 GI consult in am Continue with PPI bid Hold ASA and other NSAID 12/[address] Bonilla's team for transgastric endoscopy + possible resection of remnant/dudenal first part if needed requested cardiology input due to severe as appreciate their input 12/19 OR on 12/21 npo at 1 am on 12/21 12/21 100 ml of periop bleed found a bleeding du and clipped saw in recovery room groggy coming out of anesthesia 2 hours procedure weaned ot 50% vm in hte theatre and brought to pacu on 2 liters out ot floor in an hour ODELL (iron deficiency anemia) 12/05/2018 Last Assessment & Plan: Assessment: most recent labs show normal H/H, but does take Ferrous sulfate Postoperative hypertension 04/26 Overview: History: 04/22/2019: AVR Assessment: Requiring NTG infusion postop Plan: Titrate to maintain MAPs 65-75. Last Assessment & Plan: Home meds: losartan 50 - was on losartan-hctz prior to December admission stable PLAN: - hold in setting of ?GI bleed Depression 12/23/2018 Last Assessment & Plan: No suicidal or homicidal ideation. Stable. Continue with Citalopram documented as of this encounter (statuses as of 12/28/2021) [facility]07-29-2020 History of Past illness Narrative* Problem Noted Date Resolved Date Other pancytopenia 01/01/2020 03/27/2020 Transition of care performed with sharing of clinical summary 04/30/2019 03/27/2020 Overview: Indication for Surgery: Prosthetic aortic valve endocarditis Preop LVEF: 75% RVF: Normal Postop LVEF: Normal RVF: Normal Cath: mild non obsx CAD Cards: [facility] EKG: NSR w/ 1st degree Important/Relevant PMH/PSH: 73F from [facility] with GERD, depression, HTN, gastric bypass, PUD with recent GIB, nephrolithiasis, s/p AVR 2002 admitted with prosthetic valve endocarditis c/b severe AI, posterior root abscess, Parkinsons, CKD, overactive bladder Preoperative Hospital Course Admitted 04/10 with severe aortic insufficiency related to endocarditis Airway Difficulty: Grade I - easy Pacing wires: No. A/V pulled 04/30 Chronological list of Surgeries and Major Events 04/22/2019: Redo AVR, MVr_ 04/29/2019: PPM placement A/P of Major Active ICU Problems Cardiac: EP following for pacer dependency with ventricular rate <30 underneath. Continue DDD 80, mA 10, 5. Formal echo 04/26 showed EF 75%, RV normal. NPO, plan for PPM today. Renal:CKD-- SrCr 0.89, downtrending. Avoid nephrotoxic agents, trend fluid balance and electrolytes. 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 Continue ceftriaxone. Transferred to floor 04/29/19 To do or to watch: Access: Right arm PICC placed 04/30. - POD#7. No tubes/wires. AV paced. On room air. - s/p Redo AVR, MVr for IE: Surg path reviewed. Bacterial PCR + Streptococcus mutans. ID following. PICC placed 04/30. CoPat started. Continue Ceftriaxone through 06/03. Post-op echo completed 04/26: EF 75%, trace Mr, trivial-small pericardial effusion. - s/p PPM: Device check completed 04/30. - FVO: Up 3.7kg. Continue lasix - Dispo: 73 yo female from [place], [place]. Daughter can help. [facility] following. PT/OT rec home PT/OT; [facility] for IV antibiotics. Face-to face ordered. Should be ready for dc when accepting facility found. [facility] f/u scheduled. [facility] OPD f/u requested. Discharge Planning: Anticipated Discharge Date: 05/01/2019 if C arranged. Barriers to Discharge: Other: accepting home care agency and - In Process Care Management Discharge Needs: Needs Prior to Discharge: Accepting Facility;IV Antibiotics Discharge planning issues 04/30/20192019 Overview: 73 yo female from [place], [place]. Daughter can help. SW following. PT/OT rec home PT/OT; [facility] for IV antibiotics. Face-to face ordered. Should be ready for dc when accepting facility found. Thrombocytopenia 04/24/2019 04/26/2019 On mechanically assisted ventilation 04/22/2019 04/23/2019 Overview: History: Post op cardiac surgery requiring elective intubation Assessment: Grade I airway Plan: WTE Post-operative pain 04/22/2019 05/01/2019 Overview: History: 04/22/2019: AVR Assessment: Pain control adequate Plan: Continue scheduled Tylenol and prn oxycodone and tramadol. Preop testing 04/19/2019 04/30/2019 Overview: Date of Consult: 04/12 Type of surgery: Redo AVR/root +/- MVr Date preop tests completed:April 19, 2019 Waiting on: Date Surgeon reviewed Patient: 04/18 Patient work up completed: Waiting on: Date of decision by Surgeon: April 19, 2019 Deemed candidate: Yes Date of surgery: 04/22 Reasons for delay: na [facility] and [facility] PRE-OP CHECKLIST Surgeon: Dr. Forrest Rios Informed Consent Completed: pending STS Score: RISK SCORES Procedure: Isolated AVR CALCULATE Risk of Mortality: 4.605% Renal Failure: 3.404% Permanent Stroke: 2.380% Prolonged Ventilation: 22.071% DSW Infection: 0.035% Reoperation: 7.729% Morbidity or Mortality: 27.681% Short Length of Stay: 12.366% Long Length of Stay: 20.018% CAD: No Is intended procedure a CABG: No - H & P completed: Yes PA/LAT: Completed CT: Completed MRI: N/A LE US: N/A Cath: Yes - reviewed: Yes EKG: Completed Is patient on Amiodarone? Yes Echo:Completed EF %: 70 PI's: N/A Carotid: Completed Mapping: N/A Dental: Completed PFT's: Completed CBC, Coags, BMP, Mg, Phos Recent Labs 04/19/19 0507 04/18/19 0800 04/18/19 0455 04/17/19 0511 WBC 7.49 8.34 7.77 7.81 HB 7.9* 8.2* 7.3* 8.4* HCT 24.7* 25.7* 23.6* 26.5* PLT 144* 151 137* 155 NA 135* -- 134* 134* K 4.5 -- 4.4 4.4 CHLOR 103 -- 102 102 CO2 20* -- 23 22 BUN 37* -- 34* 27* CREAT 1.05* -- 1.03* 1.01* GLUC 83 -- 80 77 CA 8.2* -- 8.3* 8.2* MG 2.0 -- 2.0 1.9 UA: Normal HCG:N/A ABO/ABO Confirmed: Yes Blood ordered: Yes POS ABS 4units Willing to accept blood: Yes SA Swab: Yes - results: Pending Last Dose of Anticoagulation: none Op Note: Yes with Dr. Rios Pacemaker Check: No Implants: no Consults: ID, GI DM: No Cardiac Surgical prep: Yes SIGNATURE: Myrna Car RN LABOR RELATIONS ANALYST.CONFLICTS ANALYST DATE of SERVICE: 04/19/2019 TIME of SERVICE: 11:16 AM CHECKED BY: Moderate protein-calorie malnutrition 04/12/2019 10/02/2020 Overview: History: Post-op problem. Albumin 2.9. Noted on post-op nutrition screen. Assessment: 75% of meals consumed per I/O. Plan: Follow nutrition recs. Last Assessment & Plan: - nutrition referral Parkinson's disease 03/04/2019 06/11/2019 Overview: History: Takes Sinement at home Assessment: Stable postop Plan: Resume home regimen. Last Assessment & Plan: Assessment: on Sinemet PLAN: - cont home meds Acute kidney injury 03/04/2019 03/06/2019 Last Assessment & Plan: Assessment: - noted to have HILARIO at OSH with Cr of 1.31 on presentation, improved with fluids - likely related to blood loss RESOLVED PLAN: - monitor - avoid nephrotoxins - renally dose meds Elevated troponin 12/06/2018 12/23/2018 Last Assessment & Plan: No chest pain. EKG - NSR, LVH, LAD Plan: repeat EKG and troponin Trend troponin if remains elevated here GI bleed 12/05/2018 12/23/2018 Last Assessment & Plan: Acute blood loss anemia likely from GI bleed. EGD, colonoscopy - no source of bleeding identify. CT angio Abd aorta + Iliofemoral: Enhancing polypoid lesion within the 1st segment of the duodenum concerning for slowly bleeding mass. Plan: type and screen Blood transfusion consent was taken Monitor CBC q8h for now Transfuse if Hb <7 GI consult in am Continue with PPI bid Hold ASA and other NSAID 12/[address] Bonilla's team for transgastric endoscopy + possible resection of remnant/dudenal first part if needed requested cardiology input due to severe as appreciate their input 12/19 OR on 12/21 npo at 1 am on 12/21 12/21 100 ml of periop bleed found a bleeding du and clipped saw in recovery room groggy coming out of anesthesia 2 hours procedure weaned ot 50% vm in hte theatre and brought to pacu on 2 liters out ot floor in an hour ODELL (iron deficiency anemia) 12/05/2018 Last Assessment & Plan: Assessment: most recent labs show normal H/H, but does take Ferrous sulfate Postoperative hypertension 04/26 Overview: History: 04/22/2019: AVR Assessment: Requiring NTG infusion postop Plan: Titrate to maintain MAPs 65-75. Last Assessment & Plan: Home meds: losartan 50 - was on losartan-hctz prior to December admission stable PLAN: - hold in setting of ?GI bleed Depression 12/23/2018 Last Assessment & Plan: No suicidal or homicidal ideation. Stable. Continue with Citalopram documented as of this encounter (statuses as of 12/28/2021) [facility]07-29-2020 History of Past illness Narrative* Problem Noted Date Resolved Date Other pancytopenia 01/01/2020 03/27/2020 Transition of care performed with sharing of clinical summary 04/30/2019 03/27/2020 Overview: Indication for Surgery: Prosthetic aortic valve endocarditis Preop LVEF: 75% RVF: Normal Postop LVEF: Normal RVF: Normal Cath: mild non obsx CAD Cards: [facility] EKG: NSR w/ 1st degree Important/Relevant PMH/PSH: 73F from [facility] with GERD, depression, HTN, gastric bypass, PUD with recent GIB, nephrolithiasis, s/p AVR 2002 admitted with prosthetic valve endocarditis c/b severe AI, posterior root abscess, Parkinsons, CKD, overactive bladder Preoperative Hospital Course Admitted 04/10 with severe aortic insufficiency related to endocarditis Airway Difficulty: Grade I - easy Pacing wires: No. A/V pulled 04/30 Chronological list of Surgeries and Major Events 04/22/2019: Redo AVR, MVr_ 04/29/2019: PPM placement A/P of Major Active ICU Problems Cardiac: EP following for pacer dependency with ventricular rate <30 underneath. Continue DDD 80, mA 10, 5. Formal echo 04/26 showed EF 75%, RV normal. NPO, plan for PPM today. Renal:CKD-- SrCr 0.89, downtrending. Avoid nephrotoxic agents, trend fluid balance and electrolytes. 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 Continue ceftriaxone. Transferred to floor 04/29/19 To do or to watch: Access: Right arm PICC placed 04/30. - POD#7. No tubes/wires. AV paced. On room air. - s/p Redo AVR, MVr for IE: Surg path reviewed. Bacterial PCR + Streptococcus mutans. ID following. PICC placed 04/30. CoPat started. Continue Ceftriaxone through 06/03. Post-op echo completed 04/26: EF 75%, trace Mr, trivial-small pericardial effusion. - s/p PPM: Device check completed 04/30. - FVO: Up 3.7kg. Continue lasix - Dispo: 73 yo female from [place], [place]. Daughter can help. SW following. PT/OT rec home PT/OT; [facility] for IV antibiotics. Face-to face ordered. Should be ready for dc when accepting facility found. [facility] f/u scheduled. [facility] f/u requested. Discharge Planning: Anticipated Discharge Date: 05/01/2019 if HHC arranged. Barriers to Discharge: Other: accepting home care agency and - In Process Care Management Discharge Needs: Needs Prior to Discharge: Accepting Facility;IV Antibiotics Discharge planning issues 04/30/20192019 Overview: 73 yo female from [place], [place]. Daughter can help. SW following. PT/OT rec home PT/OT; [facility] for IV antibiotics. Face-to face ordered. Should be ready for dc when accepting facility found. Thrombocytopenia 04/24/2019 04/26/2019 On mechanically assisted ventilation 04/22/2019 04/23/2019 Overview: History: Post op cardiac surgery requiring elective intubation Assessment: Grade I airway Plan: WTE Post-operative pain 04/22/2019 05/01/2019 Overview: History: 04/22/2019: AVR Assessment: Pain control adequate Plan: Continue scheduled Tylenol and prn oxycodone and tramadol. Preop testing 04/19/2019 04/30/2019 Overview: Date of Consult: 04/12 Type of surgery: Redo AVR/root +/- MVr Date preop tests completed:April 19, 2019 Waiting on: Date Surgeon reviewed Patient: 04/18 Patient work up completed: Waiting on: Date of decision by Surgeon: April 19, 2019 Deemed candidate: Yes Date of surgery: 04/22 Reasons for delay: na [facility] and [facility] PRE-OP CHECKLIST Surgeon: Dr. Forrest Rios Informed Consent Completed: pending STS Score: RISK SCORES Procedure: Isolated AVR CALCULATE Risk of Mortality: 4.605% Renal Failure: 3.404% Permanent Stroke: 2.380% Prolonged Ventilation: 22.071% DSW Infection: 0.035% Reoperation: 7.729% Morbidity or Mortality: 27.681% Short Length of Stay: 12.366% Long Length of Stay: 20.018% CAD: No Is intended procedure a CABG: No - H & P completed: Yes PA/LAT: Completed CT: Completed MRI: N/A LE US: N/A Cath: Yes - reviewed: Yes EKG: Completed Is patient on Amiodarone? Yes Echo:Completed EF %: 70 PI's: N/A Carotid: Completed Mapping: N/A Dental: Completed PFT's: Completed CBC, Coags, BMP, Mg, Phos Recent Labs 04/19/19 0507 04/18/19 0800 04/18/19 0455 04/17/19 0511 WBC 7.49 8.34 7.77 7.81 HB 7.9* 8.2* 7.3* 8.4* HCT 24.7* 25.7* 23.6* 26.5* PLT 144* 151 137* 155 NA 135* -- 134* 134* K 4.5 -- 4.4 4.4 CHLOR 103 -- 102 102 CO2 20* -- 23 22 BUN 37* -- 34* 27* CREAT 1.05* -- 1.03* 1.01* GLUC 83 -- 80 77 CA 8.2* -- 8.3* 8.2* MG 2.0 -- 2.0 1.9 UA: Normal HCG:N/A ABO/ABO Confirmed: Yes Blood ordered: Yes POS ABS 4units Willing to accept blood: Yes SA Swab: Yes - results: Pending Last Dose of Anticoagulation: none Op Note: Yes with Dr. Rios Pacemaker Check: No Implants: no Consults: ID, GI DM: No Cardiac Surgical prep: Yes SIGNATURE: Myrna Car RN LABOR RELATIONS ANALYST.CONFLICTS ANALYST DATE of SERVICE: 04/19/2019 TIME of SERVICE: 11:16 AM CHECKED BY: Moderate protein-calorie malnutrition 04/12/2019 10/02/2020 Overview: History: Post-op problem. Albumin 2.9. Noted on post-op nutrition screen. Assessment: 75% of meals consumed per I/O. Plan: Follow nutrition recs. Last Assessment & Plan: - nutrition referral Parkinson's disease 03/04/2019 06/11/2019 Overview: History: Takes Sinement at home Assessment: Stable postop Plan: Resume home regimen. Last Assessment & Plan: Assessment: on Sinemet PLAN: - cont home meds Acute kidney injury 03/04/2019 03/06/2019 Last Assessment & Plan: Assessment: - noted to have HILARIO at OSH with Cr of 1.31 on presentation, improved with fluids - likely related to blood loss RESOLVED PLAN: - monitor - avoid nephrotoxins - renally dose meds Elevated troponin 12/06/2018 12/23/2018 Last Assessment & Plan: No chest pain. EKG - NSR, LVH, LAD Plan: repeat EKG and troponin Trend troponin if remains elevated here GI bleed 12/05/2018 12/23/2018 Last Assessment & Plan: Acute blood loss anemia likely from GI bleed. EGD, colonoscopy - no source of bleeding identify. CT angio Abd aorta + Iliofemoral: Enhancing polypoid lesion within the 1st segment of the duodenum concerning for slowly bleeding mass. Plan: type and screen Blood transfusion consent was taken Monitor CBC q8h for now Transfuse if Hb <7 GI consult in am Continue with PPI bid Hold ASA and other NSAID 12/[address] Bonilla's team for transgastric endoscopy + possible resection of remnant/dudenal first part if needed requested cardiology input due to severe as appreciate their input 12/19 OR on 12/21 npo at 1 am on 12/21 12/21 100 ml of periop bleed found a bleeding du and clipped saw in recovery room groggy coming out of anesthesia 2 hours procedure weaned ot 50% vm in hte theatre and brought to pacu on 2 liters out ot floor in an hour ODELL (iron deficiency anemia) 12/05/2018 Last Assessment & Plan: Assessment: most recent labs show normal H/H, but does take Ferrous sulfate Postoperative hypertension 04/26 Overview: History: 04/22/2019: AVR Assessment: Requiring NTG infusion postop Plan: Titrate to maintain MAPs 65-75. Last Assessment & Plan: Home meds: losartan 50 - was on losartan-hctz prior to December admission stable PLAN: - hold in setting of ?GI bleed Depression 12/23/2018 Last Assessment & Plan: No suicidal or homicidal ideation. Stable. Continue with Citalopram documented as of this encounter (statuses as of 01/05/2022) [facility] History of Past illness Narrative* Problem Noted Date Resolved Date Other pancytopenia 01/01/2020 03/27/2020 Transition of care performed with sharing of clinical summary 04/30/2019 03/27/2020 Overview: Indication for Surgery: Prosthetic aortic valve endocarditis Preop LVEF: 75% RVF: Normal Postop LVEF: Normal RVF: Normal Cath: mild non obsx CAD Cards: [facility] EKG: NSR w/ 1st degree Important/Relevant PMH/PSH: 73F from [facility] with GERD, depression, HTN, gastric bypass, PUD with recent GIB, nephrolithiasis, s/p AVR 2002 admitted with prosthetic valve endocarditis c/b severe AI, posterior root abscess, Parkinsons, CKD, overactive bladder Preoperative Hospital Course Admitted 04/10 with severe aortic insufficiency related to endocarditis Airway Difficulty: Grade I - easy Pacing wires: No. A/V pulled 04/30 Chronological list of Surgeries and Major Events 04/22/2019: Redo AVR, MVr_ 04/29/2019: PPM placement A/P of Major Active ICU Problems Cardiac: EP following for pacer dependency with ventricular rate <30 underneath. Continue DDD 80, mA 10, 5. Formal echo 04/26 showed EF 75%, RV normal. NPO, plan for PPM today. Renal:CKD-- SrCr 0.89, downtrending. Avoid nephrotoxic agents, trend fluid balance and electrolytes. 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 Continue ceftriaxone. Transferred to floor 04/29/19 To do or to watch: Access: Right arm PICC placed 04/30. - POD#7. No tubes/wires. AV paced. On room air. - s/p Redo AVR, MVr for IE: Surg path reviewed. Bacterial PCR + Streptococcus mutans. ID following. PICC placed 04/30. CoPat started. Continue Ceftriaxone through 06/03. Post-op echo completed 04/26: EF 75%, trace Mr, trivial-small pericardial effusion. - s/p PPM: Device check completed 04/30. - FVO: Up 3.7kg. Continue lasix - Dispo: 73 yo female from [place], [place]. Daughter can help. SW following. PT/OT rec home PT/OT; [facility] for IV antibiotics. Face-to face ordered. Should be ready for dc when accepting facility found. [facility] f/u scheduled. [facility] f/u requested. Discharge Planning: Anticipated Discharge Date: 05/01/2019 if HHC arranged. Barriers to Discharge: Other: accepting home care agency and - In Process Care Management Discharge Needs: Needs Prior to Discharge: Accepting Facility;IV Antibiotics Discharge planning issues 04/30/20192019 Overview: 73 yo female from [place], [place]. Daughter can help. SW following. PT/OT rec home PT/OT; HHC for IV antibiotics. Face-to face ordered. Should be ready for dc when accepting facility found. Thrombocytopenia 04/24/2019 04/26/2019 On mechanically assisted ventilation 04/22/2019 04/23/2019 Overview: History: Post op cardiac surgery requiring elective intubation Assessment: Grade I airway Plan: WTE Post-operative pain 04/22/2019 05/01/2019 Overview: History: 04/22/2019: AVR Assessment: Pain control adequate Plan: Continue scheduled Tylenol and prn oxycodone and tramadol. Preop testing 04/19/2019 04/30/2019 Overview: Date of Consult: 04/12 Type of surgery: Redo AVR/root +/- MVr Date preop tests completed:April 19, 2019 Waiting on: Date Surgeon reviewed Patient: 04/18 Patient work up completed: Waiting on: Date of decision by Surgeon: April 19, 2019 Deemed candidate: Yes Date of surgery: 04/22 Reasons for delay: na [facility] and [facility] PRE-OP CHECKLIST Surgeon: Dr. Forrest Rios Informed Consent Completed: pending STS Score: RISK SCORES Procedure: Isolated AVR CALCULATE Risk of Mortality: 4.605% Renal Failure: 3.404% Permanent Stroke: 2.380% Prolonged Ventilation: 22.071% DSW Infection: 0.035% Reoperation: 7.729% Morbidity or Mortality: 27.681% Short Length of Stay: 12.366% Long Length of Stay: 20.018% CAD: No Is intended procedure a CABG: No - H & P completed: Yes PA/LAT: Completed CT: Completed MRI: N/A LE US: N/A Cath: Yes - reviewed: Yes EKG: Completed Is patient on Amiodarone? Yes Echo:Completed EF %: 70 PI's: N/A Carotid: Completed Mapping: N/A Dental: Completed PFT's: Completed CBC, Coags, BMP, Mg, Phos Recent Labs 04/19/19 0507 04/18/19 0800 04/18/19 0455 04/17/19 0511 WBC 7.49 8.34 7.77 7.81 HB 7.9* 8.2* 7.3* 8.4* HCT 24.7* 25.7* 23.6* 26.5* PLT 144* 151 137* 155 NA 135* -- 134* 134* K 4.5 -- 4.4 4.4 CHLOR 103 -- 102 102 CO2 20* -- 23 22 BUN 37* -- 34* 27* CREAT 1.05* -- 1.03* 1.01* GLUC 83 -- 80 77 CA 8.2* -- 8.3* 8.2* MG 2.0 -- 2.0 1.9 UA: Normal HCG:N/A ABO/ABO Confirmed: Yes Blood ordered: Yes POS ABS 4units Willing to accept blood: Yes SA Swab: Yes - results: Pending Last Dose of Anticoagulation: none Op Note: Yes with Dr. Rios Pacemaker Check: No Implants: no Consults: ID, GI DM: No Cardiac Surgical prep: Yes SIGNATURE: Myrna Car RN LABOR RELATIONS ANALYST.CONFLICTS ANALYST DATE of SERVICE: 04/19/2019 TIME of SERVICE: 11:16 AM CHECKED BY: Moderate protein-calorie malnutrition 04/12/2019 10/02/2020 Overview: History: Post-op problem. Albumin 2.9. Noted on post-op nutrition screen. Assessment: 75% of meals consumed per I/O. Plan: Follow nutrition recs. Last Assessment & Plan: - nutrition referral Parkinson's disease 03/04/2019 06/11/2019 Overview: History: Takes Sinement at home Assessment: Stable postop Plan: Resume home regimen. Last Assessment & Plan: Assessment: on Sinemet PLAN: - cont home meds Acute kidney injury 03/04/2019 03/06/2019 Last Assessment & Plan: Assessment: - noted to have HILARIO at OSH with Cr of 1.31 on presentation, improved with fluids - likely related to blood loss RESOLVED PLAN: - monitor - avoid nephrotoxins - renally dose meds Elevated troponin 12/06/2018 12/23/2018 Last Assessment & Plan: No chest pain. EKG - NSR, LVH, LAD Plan: repeat EKG and troponin Trend troponin if remains elevated here GI bleed 12/05/2018 12/23/2018 Last Assessment & Plan: Acute blood loss anemia likely from GI bleed. EGD, colonoscopy - no source of bleeding identify. CT angio Abd aorta + Iliofemoral: Enhancing polypoid lesion within the 1st segment of the duodenum concerning for slowly bleeding mass. Plan: type and screen Blood transfusion consent was taken Monitor CBC q8h for now Transfuse if Hb <7 GI consult in am Continue with PPI bid Hold ASA and other NSAID 12/[address] Bonilla's team for transgastric endoscopy + possible resection of remnant/dudenal first part if needed requested cardiology input due to severe as appreciate their input 12/19 OR on 12/21 npo at 1 am on 12/21 12/21 100 ml of periop bleed found a bleeding du and clipped saw in recovery room groggy coming out of anesthesia 2 hours procedure weaned ot 50% vm in hte theatre and brought to pacu on 2 liters out ot floor in an hour ODELL (iron deficiency anemia) 12/05/2018 Last Assessment & Plan: Assessment: most recent labs show normal H/H, but does take Ferrous sulfate Postoperative hypertension 04/26 Overview: History: 04/22/2019: AVR Assessment: Requiring NTG infusion postop Plan: Titrate to maintain MAPs 65-75. Last Assessment & Plan: Home meds: losartan 50 - was on losartan-hctz prior to December admission stable PLAN: - hold in setting of ?GI bleed Depression 12/23/2018 Last Assessment & Plan: No suicidal or homicidal ideation. Stable. Continue with Citalopram documented as of this encounter (statuses as of 01/10/2022) [facility]07-29-2020 History of Past illness Narrative* Problem Noted Date Resolved Date Other pancytopenia 01/01/2020 03/27/2020 Transition of care performed with sharing of clinical summary 04/30/2019 03/27/2020 Overview: Indication for Surgery: Prosthetic aortic valve endocarditis Preop LVEF: 75% RVF: Normal Postop LVEF: Normal RVF: Normal Cath: mild non obsx CAD Cards: [facility] EKG: NSR w/ 1st degree Important/Relevant PMH/PSH: 73F from [facility] with GERD, depression, HTN, gastric bypass, PUD with recent GIB, nephrolithiasis, s/p AVR 2002 admitted with prosthetic valve endocarditis c/b severe AI, posterior root abscess, Parkinsons, CKD, overactive bladder Preoperative Hospital Course Admitted 04/10 with severe aortic insufficiency related to endocarditis Airway Difficulty: Grade I - easy Pacing wires: No. A/V pulled 04/30 Chronological list of Surgeries and Major Events 04/22/2019: Redo AVR, MVr_ 04/29/2019: PPM placement A/P of Major Active ICU Problems Cardiac: EP following for pacer dependency with ventricular rate <30 underneath. Continue DDD 80, mA 10, 5. Formal echo 04/26 showed EF 75%, RV normal. NPO, plan for PPM today. Renal:CKD-- SrCr 0.89, downtrending. Avoid nephrotoxic agents, trend fluid balance and electrolytes. 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 Continue ceftriaxone. Transferred to floor 04/29/19 To do or to watch: Access: Right arm PICC placed 04/30. - POD#7. No tubes/wires. AV paced. On room air. - s/p Redo AVR, MVr for IE: Surg path reviewed. Bacterial PCR + Streptococcus mutans. ID following. PICC placed 04/30. CoPat started. Continue Ceftriaxone through 06/03. Post-op echo completed 04/26: EF 75%, trace Mr, trivial-small pericardial effusion. - s/p PPM: Device check completed 04/30. - FVO: Up 3.7kg. Continue lasix - Dispo: 73 yo female from [place], [place]. Daughter can help. SW following. PT/OT rec home PT/OT; HHC for IV antibiotics. Face-to face ordered. Should be ready for dc when accepting facility found. [facility] f/u scheduled. [facility] OPD f/u requested. Discharge Planning: Anticipated Discharge Date: 05/01/2019 if HHC arranged. Barriers to Discharge: Other: accepting home care agency and - In Process Care Management Discharge Needs: Needs Prior to Discharge: Accepting Facility;IV Antibiotics Discharge planning issues 04/30/20192019 Overview: 73 yo female from [place], [place]. Daughter can help. SW following. PT/OT rec home PT/OT; HHC for IV antibiotics. Face-to face ordered. Should be ready for dc when accepting facility found. Thrombocytopenia 04/24/2019 04/26/2019 On mechanically assisted ventilation 04/22/2019 04/23/2019 Overview: History: Post op cardiac surgery requiring elective intubation Assessment: Grade I airway Plan: WTE Post-operative pain 04/22/2019 05/01/2019 Overview: History: 04/22/2019: AVR Assessment: Pain control adequate Plan: Continue scheduled Tylenol and prn oxycodone and tramadol. Preop testing 04/19/2019 04/30/2019 Overview: Date of Consult: 04/12 Type of surgery: Redo AVR/root +/- MVr Date preop tests completed:April 19, 2019 Waiting on: Date Surgeon reviewed Patient: 04/18 Patient work up completed: Waiting on: Date of decision by Surgeon: April 19, 2019 Deemed candidate: Yes Date of surgery: 04/22 Reasons for delay: na [facility] and [facility] INSTITUTE PRE-OP CHECKLIST Surgeon: Dr. Forrest Rios Informed Consent Completed: pending STS Score: RISK SCORES Procedure: Isolated AVR CALCULATE Risk of Mortality: 4.605% Renal Failure: 3.404% Permanent Stroke: 2.380% Prolonged Ventilation: 22.071% DSW Infection: 0.035% Reoperation: 7.729% Morbidity or Mortality: 27.681% Short Length of Stay: 12.366% Long Length of Stay: 20.018% CAD: No Is intended procedure a CABG: No - H & P completed: Yes PA/LAT: Completed CT: Completed MRI: N/A LE US: N/A Cath: Yes - reviewed: Yes EKG: Completed Is patient on Amiodarone? Yes Echo:Completed EF %: 70 PI's: N/A Carotid: Completed Mapping: N/A Dental: Completed PFT's: Completed CBC, Coags, BMP, Mg, Phos Recent Labs 04/19/19 0507 04/18/19 0800 04/18/19 0455 04/17/19 0511 WBC 7.49 8.34 7.77 7.81 HB 7.9* 8.2* 7.3* 8.4* HCT 24.7* 25.7* 23.6* 26.5* PLT 144* 151 137* 155 NA 135* -- 134* 134* K 4.5 -- 4.4 4.4 CHLOR 103 -- 102 102 CO2 20* -- 23 22 BUN 37* -- 34* 27* CREAT 1.05* -- 1.03* 1.01* GLUC 83 -- 80 77 CA 8.2* -- 8.3* 8.2* MG 2.0 -- 2.0 1.9 UA: Normal HCG:N/A ABO/ABO Confirmed: Yes Blood ordered: Yes POS ABS 4units Willing to accept blood: Yes SA Swab: Yes - results: Pending Last Dose of Anticoagulation: none Op Note: Yes with Dr. Rios Pacemaker Check: No Implants: no Consults: ID, GI DM: No Cardiac Surgical prep: Yes SIGNATURE: Myrna Car RN LABOR RELATIONS ANALYST.CONFLICTS ANALYST DATE of SERVICE: 04/19/2019 TIME of SERVICE: 11:16 AM CHECKED BY: Moderate protein-calorie malnutrition 04/12/2019 10/02/2020 Overview: History: Post-op problem. Albumin 2.9. Noted on post-op nutrition screen. Assessment: 75% of meals consumed per I/O. Plan: Follow nutrition recs. Last Assessment & Plan: - nutrition referral Parkinson's disease 03/04/2019 06/11/2019 Overview: History: Takes Sinement at home Assessment: Stable postop Plan: Resume home regimen. Last Assessment & Plan: Assessment: on Sinemet PLAN: - cont home meds Acute kidney injury 03/04/2019 03/06/2019 Last Assessment & Plan: Assessment: - noted to have HILARIO at OSH with Cr of 1.31 on presentation, improved with fluids - likely related to blood loss RESOLVED PLAN: - monitor - avoid nephrotoxins - renally dose meds Elevated troponin 12/06/2018 12/23/2018 Last Assessment & Plan: No chest pain. EKG - NSR, LVH, LAD Plan: repeat EKG and troponin Trend troponin if remains elevated here GI bleed 12/05/2018 12/23/2018 Last Assessment & Plan: Acute blood loss anemia likely from GI bleed. EGD, colonoscopy - no source of bleeding identify. CT angio Abd aorta + Iliofemoral: Enhancing polypoid lesion within the 1st segment of the duodenum concerning for slowly bleeding mass. Plan: type and screen Blood transfusion consent was taken Monitor CBC q8h for now Transfuse if Hb <7 GI consult in am Continue with PPI bid Hold ASA and other NSAID 12/[address] Bonilla's team for transgastric endoscopy + possible resection of remnant/dudenal first part if needed requested cardiology input due to severe as appreciate their input 12/19 OR on 12/21 npo at 1 am on 12/21 12/21 100 ml of periop bleed found a bleeding du and clipped saw in recovery room groggy coming out of anesthesia 2 hours procedure weaned ot 50% vm in hte theatre and brought to pacu on 2 liters out ot floor in an hour ODELL (iron deficiency anemia) 12/05/2018 Last Assessment & Plan: Assessment: most recent labs show normal H/H, but does take Ferrous sulfate Postoperative hypertension 04/26 Overview: History: 04/22/2019: AVR Assessment: Requiring NTG infusion postop Plan: Titrate to maintain MAPs 65-75. Last Assessment & Plan: Home meds: losartan 50 - was on losartan-hctz prior to December admission stable PLAN: - hold in setting of ?GI bleed Depression 12/23/2018 Last Assessment & Plan: No suicidal or homicidal ideation. Stable. Continue with Citalopram documented as of this encounter (statuses as of 01/10/2022) [facility]07-29-2020 History of Past illness Narrative* Problem Noted Date Resolved Date Other pancytopenia 01/01/2020 03/27/2020 Transition of care performed with sharing of clinical summary 04/30/2019 03/27/2020 Overview: Indication for Surgery: Prosthetic aortic valve endocarditis Preop LVEF: 75% RVF: Normal Postop LVEF: Normal RVF: Normal Cath: mild non obsx CAD Cards: [facility] EKG: NSR w/ 1st degree Important/Relevant PMH/PSH: 73F from [facility] with GERD, depression, HTN, gastric bypass, PUD with recent GIB, nephrolithiasis, s/p AVR 2002 admitted with prosthetic valve endocarditis c/b severe AI, posterior root abscess, Parkinsons, CKD, overactive bladder Preoperative Hospital Course Admitted 04/10 with severe aortic insufficiency related to endocarditis Airway Difficulty: Grade I - easy Pacing wires: No. A/V pulled 04/30 Chronological list of Surgeries and Major Events 04/22/2019: Redo AVR, MVr_ 04/29/2019: PPM placement A/P of Major Active ICU Problems Cardiac: EP following for pacer dependency with ventricular rate <30 underneath. Continue DDD 80, mA 10, 5. Formal echo 04/26 showed EF 75%, RV normal. NPO, plan for PPM today. Renal:CKD-- SrCr 0.89, downtrending. Avoid nephrotoxic agents, trend fluid balance and electrolytes. 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 Continue ceftriaxone. Transferred to floor 04/29/19 To do or to watch: Access: Right arm PICC placed 04/30. - POD#7. No tubes/wires. AV paced. On room air. - s/p Redo AVR, MVr for IE: Surg path reviewed. Bacterial PCR + Streptococcus mutans. ID following. PICC placed 04/30. CoPat started. Continue Ceftriaxone through 06/03. Post-op echo completed 04/26: EF 75%, trace Mr, trivial-small pericardial effusion. - s/p PPM: Device check completed 04/30. - FVO: Up 3.7kg. Continue lasix - Dispo: 73 yo female from [place], [place]. Daughter can help. SW following. PT/OT rec home PT/OT; HHC for IV antibiotics. Face-to face ordered. Should be ready for dc when accepting facility found. [facility] f/u scheduled. [facility] OPD f/u requested. Discharge Planning: Anticipated Discharge Date: 05/01/2019 if HHC arranged. Barriers to Discharge: Other: accepting home care agency and - In Process Care Management Discharge Needs: Needs Prior to Discharge: Accepting Facility;IV Antibiotics Discharge planning issues 04/30/20192019 Overview: 73 yo female from [place], [place]. Daughter can help. SW following. PT/OT rec home PT/OT; HHC for IV antibiotics. Face-to face ordered. Should be ready for dc when accepting facility found. Thrombocytopenia 04/24/2019 04/26/2019 On mechanically assisted ventilation 04/22/2019 04/23/2019 Overview: History: Post op cardiac surgery requiring elective intubation Assessment: Grade I airway Plan: WTE Post-operative pain 04/22/2019 05/01/2019 Overview: History: 04/22/2019: AVR Assessment: Pain control adequate Plan: Continue scheduled Tylenol and prn oxycodone and tramadol. Preop testing 04/19/2019 04/30/2019 Overview: Date of Consult: 04/12 Type of surgery: Redo AVR/root +/- MVr Date preop tests completed:April 19, 2019 Waiting on: Date Surgeon reviewed Patient: 04/18 Patient work up completed: Waiting on: Date of decision by Surgeon: April 19, 2019 Deemed candidate: Yes Date of surgery: 04/22 Reasons for delay: na [facility] and [facility] PRE-OP CHECKLIST Surgeon: Dr. Forrest Rios Informed Consent Completed: pending STS Score: RISK SCORES Procedure: Isolated AVR CALCULATE Risk of Mortality: 4.605% Renal Failure: 3.404% Permanent Stroke: 2.380% Prolonged Ventilation: 22.071% DSW Infection: 0.035% Reoperation: 7.729% Morbidity or Mortality: 27.681% Short Length of Stay: 12.366% Long Length of Stay: 20.018% CAD: No Is intended procedure a CABG: No - H & P completed: Yes PA/LAT: Completed CT: Completed MRI: N/A LE US: N/A Cath: Yes - reviewed: Yes EKG: Completed Is patient on Amiodarone? Yes Echo:Completed EF %: 70 PI's: N/A Carotid: Completed Mapping: N/A Dental: Completed PFT's: Completed CBC, Coags, BMP, Mg, Phos Recent Labs 04/19/19 0507 04/18/19 0800 04/18/19 0455 04/17/19 0511 WBC 7.49 8.34 7.77 7.81 HB 7.9* 8.2* 7.3* 8.4* HCT 24.7* 25.7* 23.6* 26.5* PLT 144* 151 137* 155 NA 135* -- 134* 134* K 4.5 -- 4.4 4.4 CHLOR 103 -- 102 102 CO2 20* -- 23 22 BUN 37* -- 34* 27* CREAT 1.05* -- 1.03* 1.01* GLUC 83 -- 80 77 CA 8.2* -- 8.3* 8.2* MG 2.0 -- 2.0 1.9 UA: Normal HCG:N/A ABO/ABO Confirmed: Yes Blood ordered: Yes POS ABS 4units Willing to accept blood: Yes SA Swab: Yes - results: Pending Last Dose of Anticoagulation: none Op Note: Yes with Dr. Rios Pacemaker Check: No Implants: no Consults: ID, GI DM: No Cardiac Surgical prep: Yes SIGNATURE: Myrna Car RN LABOR RELATIONS ANALYST.ARBEN DATE of SERVICE: 04/19/2019 TIME of SERVICE: 11:16 AM CHECKED BY: Moderate protein-calorie malnutrition 04/12/2019 10/02/2020 Overview: History: Post-op problem. Albumin 2.9. Noted on post-op nutrition screen. Assessment: 75% of meals consumed per I/O. Plan: Follow nutrition recs. Last Assessment & Plan: - nutrition referral Parkinson's disease 03/04/2019 06/11/2019 Overview: History: Takes Sinement at home Assessment: Stable postop Plan: Resume home regimen. Last Assessment & Plan: Assessment: on Sinemet PLAN: - cont home meds Acute kidney injury 03/04/2019 03/06/2019 Last Assessment & Plan: Assessment: - noted to have HILARIO at OSH with Cr of 1.31 on presentation, improved with fluids - likely related to blood loss RESOLVED PLAN: - monitor - avoid nephrotoxins - renally dose meds Elevated troponin 12/06/2018 12/23/2018 Last Assessment & Plan: No chest pain. EKG - NSR, LVH, LAD Plan: repeat EKG and troponin Trend troponin if remains elevated here GI bleed 12/05/2018 12/23/2018 Last Assessment & Plan: Acute blood loss anemia likely from GI bleed. EGD, colonoscopy - no source of bleeding identify. CT angio Abd aorta + Iliofemoral: Enhancing polypoid lesion within the 1st segment of the duodenum concerning for slowly bleeding mass. Plan: type and screen Blood transfusion consent was taken Monitor CBC q8h for now Transfuse if Hb <7 GI consult in am Continue with PPI bid Hold ASA and other NSAID 12/[address] Bonilla's team for transgastric endoscopy + possible resection of remnant/dudenal first part if needed requested cardiology input due to severe as appreciate their input 12/19 OR on 12/21 npo at 1 am on 12/21 12/21 100 ml of periop bleed found a bleeding du and clipped saw in recovery room groggy coming out of anesthesia 2 hours procedure weaned ot 50% vm in hte theatre and brought to pacu on 2 liters out ot floor in an hour ODELL (iron deficiency anemia) 12/05/2018 Last Assessment & Plan: Assessment: most recent labs show normal H/H, but does take Ferrous sulfate Postoperative hypertension 04/26 Overview: History: 04/22/2019: AVR Assessment: Requiring NTG infusion postop Plan: Titrate to maintain MAPs 65-75. Last Assessment & Plan: Home meds: losartan 50 - was on losartan-hctz prior to December admission stable PLAN: - hold in setting of ?GI bleed Depression 12/23/2018 Last Assessment & Plan: No suicidal or homicidal ideation. Stable. Continue with Citalopram documented as of this encounter (statuses as of 01/12/2022) [facility]07-[facility]-2020 History of Past illness Narrative* Problem Noted Date Resolved Date Other pancytopenia 01/01/2020 03/27/2020 Transition of care performed with sharing of clinical summary 04/30/2019 03/27/2020 Overview: Indication for Surgery: Prosthetic aortic valve endocarditis Preop LVEF: 75% RVF: Normal Postop LVEF: Normal RVF: Normal Cath: mild non obsx CAD Cards: [facility] EKG: NSR w/ 1st degree Important/Relevant PMH/PSH: 73F from [facility] with GERD, depression, HTN, gastric bypass, PUD with recent GIB, nephrolithiasis, s/p AVR 2002 admitted with prosthetic valve endocarditis c/b severe AI, posterior root abscess, Parkinsons, CKD, overactive bladder Preoperative Hospital Course Admitted 04/10 with severe aortic insufficiency related to endocarditis Airway Difficulty: Grade I - easy Pacing wires: No. A/V pulled 04/30 Chronological list of Surgeries and Major Events 04/22/2019: Redo AVR, MVr_ 04/29/2019: PPM placement A/P of Major Active ICU Problems Cardiac: EP following for pacer dependency with ventricular rate <30 underneath. Continue DDD 80, mA 10, 5. Formal echo 04/26 showed EF 75%, RV normal. NPO, plan for PPM today. Renal:CKD-- SrCr 0.89, downtrending. Avoid nephrotoxic agents, trend fluid balance and electrolytes. 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 Continue ceftriaxone. Transferred to floor 04/29/19 To do or to watch: Access: Right arm PICC placed 04/30. - POD#7. No tubes/wires. AV paced. On room air. - s/p Redo AVR, MVr for IE: Surg path reviewed. Bacterial PCR + Streptococcus mutans. ID following. PICC placed 04/30. CoPat started. Continue Ceftriaxone through 06/03. Post-op echo completed 04/26: EF 75%, trace Mr, trivial-small pericardial effusion. - s/p PPM: Device check completed 04/30. - FVO: Up 3.7kg. Continue lasix - Dispo: 73 yo female from [place], [place]. Daughter can help. SW following. PT/OT rec home PT/OT; HHC for IV antibiotics. Face-to face ordered. Should be ready for dc when accepting facility found. [facility] f/u scheduled. [facility] OPD f/u requested. Discharge Planning: Anticipated Discharge Date: 05/01/2019 if HHC arranged. Barriers to Discharge: Other: accepting home care agency and - In Process Care Management Discharge Needs: Needs Prior to Discharge: Accepting Facility;IV Antibiotics Discharge planning issues 04/30/20192019 Overview: 73 yo female from [place], [place]. Daughter can help. SW following. PT/OT rec home PT/OT; HHC for IV antibiotics. Face-to face ordered. Should be ready for dc when accepting facility found. Thrombocytopenia 04/24/2019 04/26/2019 On mechanically assisted ventilation 04/22/2019 04/23/2019 Overview: History: Post op cardiac surgery requiring elective intubation Assessment: Grade I airway Plan: WTE Post-operative pain 04/22/2019 05/01/2019 Overview: History: 04/22/2019: AVR Assessment: Pain control adequate Plan: Continue scheduled Tylenol and prn oxycodone and tramadol. Preop testing 04/19/2019 04/30/2019 Overview: Date of Consult: 04/12 Type of surgery: Redo AVR/root +/- MVr Date preop tests completed:April 19, 2019 Waiting on: Date Surgeon reviewed Patient: 04/18 Patient work up completed: Waiting on: Date of decision by Surgeon: April 19, 2019 Deemed candidate: Yes Date of surgery: 04/22 Reasons for delay: na [facility] and [facility] PRE-OP CHECKLIST Surgeon: Dr. Forrest Rios Informed Consent Completed: pending STS Score: RISK SCORES Procedure: Isolated AVR CALCULATE Risk of Mortality: 4.605% Renal Failure: 3.404% Permanent Stroke: 2.380% Prolonged Ventilation: 22.071% DSW Infection: 0.035% Reoperation: 7.729% Morbidity or Mortality: 27.681% Short Length of Stay: 12.366% Long Length of Stay: 20.018% CAD: No Is intended procedure a CABG: No - H & P completed: Yes PA/LAT: Completed CT: Completed MRI: N/A LE US: N/A Cath: Yes - reviewed: Yes EKG: Completed Is patient on Amiodarone? Yes Echo:Completed EF %: 70 PI's: N/A Carotid: Completed Mapping: N/A Dental: Completed PFT's: Completed CBC, Coags, BMP, Mg, Phos Recent Labs 04/19/19 0507 04/18/19 0800 04/18/19 0455 04/17/19 0511 WBC 7.49 8.34 7.77 7.81 HB 7.9* 8.2* 7.3* 8.4* HCT 24.7* 25.7* 23.6* 26.5* PLT 144* 151 137* 155 NA 135* -- 134* 134* K 4.5 -- 4.4 4.4 CHLOR 103 -- 102 102 CO2 20* -- 23 22 BUN 37* -- 34* 27* CREAT 1.05* -- 1.03* 1.01* GLUC 83 -- 80 77 CA 8.2* -- 8.3* 8.2* MG 2.0 -- 2.0 1.9 UA: Normal HCG:N/A ABO/ABO Confirmed: Yes Blood ordered: Yes POS ABS 4units Willing to accept blood: Yes SA Swab: Yes - results: Pending Last Dose of Anticoagulation: none Op Note: Yes with Dr. Rios Pacemaker Check: No Implants: no Consults: ID, GI DM: No Cardiac Surgical prep: Yes SIGNATURE: Myrna Car RN LABOR RELATIONS ANALYST.CONFLICTS ANALYST DATE of SERVICE: 04/19/2019 TIME of SERVICE: 11:16 AM CHECKED BY: Moderate protein-calorie malnutrition 04/12/2019 10/02/2020 Overview: History: Post-op problem. Albumin 2.9. Noted on post-op nutrition screen. Assessment: 75% of meals consumed per I/O. Plan: Follow nutrition recs. Last Assessment & Plan: - nutrition referral Parkinson's disease 03/04/2019 06/11/2019 Overview: History: Takes Sinement at home Assessment: Stable postop Plan: Resume home regimen. Last Assessment & Plan: Assessment: on Sinemet PLAN: - cont home meds Acute kidney injury 03/04/2019 03/06/2019 Last Assessment & Plan: Assessment: - noted to have HILARIO at OSH with Cr of 1.31 on presentation, improved with fluids - likely related to blood loss RESOLVED PLAN: - monitor - avoid nephrotoxins - renally dose meds Elevated troponin 12/06/2018 12/23/2018 Last Assessment & Plan: No chest pain. EKG - NSR, LVH, LAD Plan: repeat EKG and troponin Trend troponin if remains elevated here GI bleed 12/05/2018 12/23/2018 Last Assessment & Plan: Acute blood loss anemia likely from GI bleed. EGD, colonoscopy - no source of bleeding identify. CT angio Abd aorta + Iliofemoral: Enhancing polypoid lesion within the 1st segment of the duodenum concerning for slowly bleeding mass. Plan: type and screen Blood transfusion consent was taken Monitor CBC q8h for now Transfuse if Hb <7 GI consult in am Continue with PPI bid Hold ASA and other NSAID 12/[address] Bonilla's team for transgastric endoscopy + possible resection of remnant/dudenal first part if needed requested cardiology input due to severe as appreciate their input 12/19 OR on 12/21 npo at 1 am on 12/21 12/21 100 ml of periop bleed found a bleeding du and clipped saw in recovery room groggy coming out of anesthesia 2 hours procedure weaned ot 50% vm in hte theatre and brought to pacu on 2 liters out ot floor in an hour ODELL (iron deficiency anemia) 12/05/2018 Last Assessment & Plan: Assessment: most recent labs show normal H/H, but does take Ferrous sulfate Postoperative hypertension 04/26 Overview: History: 04/22/2019: AVR Assessment: Requiring NTG infusion postop Plan: Titrate to maintain MAPs 65-75. Last Assessment & Plan: Home meds: losartan 50 - was on losartan-hctz prior to December admission stable PLAN: - hold in setting of ?GI bleed Depression 12/23/2018 Last Assessment & Plan: No suicidal or homicidal ideation. Stable. Continue with Citalopram documented as of this encounter (statuses as of 01/12/2022) [facility]07-29-2020 History of Past illness Narrative* Problem Noted Date Resolved Date Other pancytopenia 01/01/2020 03/27/2020 Transition of care performed with sharing of clinical summary 04/30/2019 03/27/2020 Overview: Indication for Surgery: Prosthetic aortic valve endocarditis Preop LVEF: 75% RVF: Normal Postop LVEF: Normal RVF: Normal Cath: mild non obsx CAD Cards: Serge Harmony EKG: NSR w/ 1st degree Important/Relevant PMH/PSH: 73F from [place] with GERD, depression, HTN, gastric bypass, PUD with recent GIB, nephrolithiasis, s/p AVR 2002 admitted with prosthetic valve endocarditis c/b severe AI, posterior root abscess, Parkinsons, CKD, overactive bladder Preoperative Hospital Course Admitted 04/10 with severe aortic insufficiency related to endocarditis Airway Difficulty: Grade I - easy Pacing wires: No. A/V pulled 04/30 Chronological list of Surgeries and Major Events 04/22/2019: Redo AVR, MVr_ 04/29/2019: PPM placement A/P of Major Active ICU Problems Cardiac: EP following for pacer dependency with ventricular rate <30 underneath. Continue DDD 80, mA 10, 5. Formal echo 04/26 showed EF 75%, RV normal. NPO, plan for PPM today. Renal:CKD-- SrCr 0.89, downtrending. Avoid nephrotoxic agents, trend fluid balance and electrolytes. 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 Continue ceftriaxone. Transferred to floor 04/29/19 To do or to watch: Access: Right arm PICC placed 04/30. - POD#7. No tubes/wires. AV paced. On room air. - s/p Redo AVR, MVr for IE: Surg path reviewed. Bacterial PCR + Streptococcus mutans. ID following. PICC placed 04/30. CoPat started. Continue Ceftriaxone through 06/03. Post-op echo completed 04/26: EF 75%, trace Mr, trivial-small pericardial effusion. - s/p PPM: Device check completed 04/30. - FVO: Up 3.7kg. Continue lasix - Dispo: 73 yo female from [place], [place]. Daughter can help. SW following. PT/OT rec home PT/OT; HHC for IV antibiotics. Face-to face ordered. Should be ready for dc when accepting facility found. [facility] f/u scheduled. [facility] OPD f/u requested. Discharge Planning: Anticipated Discharge Date: 05/01/2019 if HHC arranged. Barriers to Discharge: Other: accepting home care agency and - In Process Care Management Discharge Needs: Needs Prior to Discharge: Accepting Facility;IV Antibiotics Discharge planning issues 04/30/20192019 Overview: 73 yo female from [place], [place]. Daughter can help. SW following. PT/OT rec home PT/OT; HHC for IV antibiotics. Face-to face ordered. Should be ready for dc when accepting facility found. Thrombocytopenia 04/24/2019 04/26/2019 On mechanically assisted ventilation 04/22/2019 04/23/2019 Overview: History: Post op cardiac surgery requiring elective intubation Assessment: Grade I airway Plan: WTE Post-operative pain 04/22/2019 05/01/2019 Overview: History: 04/22/2019: AVR Assessment: Pain control adequate Plan: Continue scheduled Tylenol and prn oxycodone and tramadol. Preop testing 04/19/2019 04/30/2019 Overview: Date of Consult: 04/12 Type of surgery: Redo AVR/root +/- MVr Date preop tests completed:April 19, 2019 Waiting on: Date Surgeon reviewed Patient: 04/18 Patient work up completed: Waiting on: Date of decision by Surgeon: April 19, 2019 Deemed candidate: Yes Date of surgery: 04/22 Reasons for delay: na [facility] and [facility] PRE-OP CHECKLIST Surgeon: Dr. Forrest Rios Informed Consent Completed: pending STS Score: RISK SCORES Procedure: Isolated AVR CALCULATE Risk of Mortality: 4.605% Renal Failure: 3.404% Permanent Stroke: 2.380% Prolonged Ventilation: 22.071% DSW Infection: 0.035% Reoperation: 7.729% Morbidity or Mortality: 27.681% Short Length of Stay: 12.366% Long Length of Stay: 20.018% CAD: No Is intended procedure a CABG: No - H & P completed: Yes PA/LAT: Completed CT: Completed MRI: N/A LE US: N/A Cath: Yes - reviewed: Yes EKG: Completed Is patient on Amiodarone? Yes Echo:Completed EF %: 70 PI's: N/A Carotid: Completed Mapping: N/A Dental: Completed PFT's: Completed CBC, Coags, BMP, Mg, Phos Recent Labs 04/19/19 0507 04/18/19 0800 04/18/19 0455 04/17/19 0511 WBC 7.49 8.34 7.77 7.81 HB 7.9* 8.2* 7.3* 8.4* HCT 24.7* 25.7* 23.6* 26.5* PLT 144* 151 137* 155 NA 135* -- 134* 134* K 4.5 -- 4.4 4.4 CHLOR 103 -- 102 102 CO2 20* -- 23 22 BUN 37* -- 34* 27* CREAT 1.05* -- 1.03* 1.01* GLUC 83 -- 80 77 CA 8.2* -- 8.3* 8.2* MG 2.0 -- 2.0 1.9 UA: Normal HCG:N/A ABO/ABO Confirmed: Yes Blood ordered: Yes POS ABS 4units Willing to accept blood: Yes SA Swab: Yes - results: Pending Last Dose of Anticoagulation: none Op Note: Yes with Dr. Rios Pacemaker Check: No Implants: no Consults: ID, GI DM: No Cardiac Surgical prep: Yes SIGNATURE: Myrna Car RN LABOR RELATIONS ANALYST.CONFLICTS ANALYST DATE of SERVICE: 04/19/2019 TIME of SERVICE: 11:16 AM CHECKED BY: Moderate protein-calorie malnutrition 04/12/2019 10/02/2020 Overview: History: Post-op problem. Albumin 2.9. Noted on post-op nutrition screen. Assessment: 75% of meals consumed per I/O. Plan: Follow nutrition recs. Last Assessment & Plan: - nutrition referral Parkinson's disease 03/04/2019 06/11/2019 Overview: History: Takes Sinement at home Assessment: Stable postop Plan: Resume home regimen. Last Assessment & Plan: Assessment: on Sinemet PLAN: - cont home meds Acute kidney injury 03/04/2019 03/06/2019 Last Assessment & Plan: Assessment: - noted to have HILARIO at OSH with Cr of 1.31 on presentation, improved with fluids - likely related to blood loss RESOLVED PLAN: - monitor - avoid nephrotoxins - renally dose meds Elevated troponin 12/06/2018 12/23/2018 Last Assessment & Plan: No chest pain. EKG - NSR, LVH, LAD Plan: repeat EKG and troponin Trend troponin if remains elevated here GI bleed 12/05/2018 12/23/2018 Last Assessment & Plan: Acute blood loss anemia likely from GI bleed. EGD, colonoscopy - no source of bleeding identify. CT angio Abd aorta + Iliofemoral: Enhancing polypoid lesion within the 1st segment of the duodenum concerning for slowly bleeding mass. Plan: type and screen Blood transfusion consent was taken Monitor CBC q8h for now Transfuse if Hb <7 GI consult in am Continue with PPI bid Hold ASA and other NSAID 12/[address] Bonilla's team for transgastric endoscopy + possible resection of remnant/dudenal first part if needed requested cardiology input due to severe as appreciate their input 12/19 OR on 12/21 npo at 1 am on 12/21 12/21 100 ml of periop bleed found a bleeding du and clipped saw in recovery room groggy coming out of anesthesia 2 hours procedure weaned ot 50% vm in hte theatre and brought to pacu on 2 liters out ot floor in an hour ODELL (iron deficiency anemia) 12/05/2018 Last Assessment & Plan: Assessment: most recent labs show normal H/H, but does take Ferrous sulfate Postoperative hypertension 04/26 Overview: History: 04/22/2019: AVR Assessment: Requiring NTG infusion postop Plan: Titrate to maintain MAPs 65-75. Last Assessment & Plan: Home meds: losartan 50 - was on losartan-hctz prior to [place] [facility] admission stable PLAN: - hold in setting of ?GI bleed Depression 12/23/2018 Last Assessment & Plan: No suicidal or homicidal ideation. Stable. Continue with Citalopram documented as of this encounter (statuses as of 01/25/2022) [facility]07-29-2020 History of Past illness Narrative* Problem Noted Date Resolved Date Other pancytopenia 01/01/2020 03/27/2020 Transition of care performed with sharing of clinical summary 04/30/2019 03/27/2020 Overview: Indication for Surgery: Prosthetic aortic valve endocarditis Preop LVEF: 75% RVF: Normal Postop LVEF: Normal RVF: Normal Cath: mild non obsx CAD Cards: Herblucio Antunez EKG: NSR w/ 1st degree Important/Relevant PMH/PSH: 73F from [facility] with GERD, depression, HTN, gastric bypass, PUD with recent GIB, nephrolithiasis, s/p AVR 2002 admitted with prosthetic valve endocarditis c/b severe AI, posterior root abscess, Parkinsons, CKD, overactive bladder Preoperative Hospital Course Admitted 04/10 with severe aortic insufficiency related to endocarditis Airway Difficulty: Grade I - easy Pacing wires: No. A/V pulled 04/30 Chronological list of Surgeries and Major Events 04/22/2019: Redo AVR, MVr_ 04/29/2019: PPM placement A/P of Major Active ICU Problems Cardiac: EP following for pacer dependency with ventricular rate <30 underneath. Continue DDD 80, mA 10, 5. Formal echo 04/26 showed EF 75%, RV normal. NPO, plan for PPM today. Renal:CKD-- SrCr 0.89, downtrending. Avoid nephrotoxic agents, trend fluid balance and electrolytes. 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 Continue ceftriaxone. Transferred to floor 04/29/19 To do or to watch: Access: Right arm PICC placed 04/30. - POD#7. No tubes/wires. AV paced. On room air. - s/p Redo AVR, MVr for IE: Surg path reviewed. Bacterial PCR + Streptococcus mutans. ID following. PICC placed 04/30. CoPat started. Continue Ceftriaxone through 06/03. Post-op echo completed 04/26: EF 75%, trace Mr, trivial-small pericardial effusion. - s/p PPM: Device check completed 04/30. - FVO: Up 3.7kg. Continue lasix - Dispo: 73 yo female from [place], [place]. Daughter can help. SW following. PT/OT rec home PT/OT; HHC for IV antibiotics. Face-to face ordered. Should be ready for dc when accepting facility found. [facility] f/u scheduled. [facility] OPD f/u requested. Discharge Planning: Anticipated Discharge Date: 05/01/2019 if HHC arranged. Barriers to Discharge: Other: accepting home care agency and - In Process Care Management Discharge Needs: Needs Prior to Discharge: Accepting Facility;IV Antibiotics Discharge planning issues 04/30/20192019 Overview: 73 yo female from [place], [place]. Daughter can help. SW following. PT/OT rec home PT/OT; HHC for IV antibiotics. Face-to face ordered. Should be ready for dc when accepting facility found. Thrombocytopenia 04/24/2019 04/26/2019 On mechanically assisted ventilation 04/22/2019 04/23/2019 Overview: History: Post op cardiac surgery requiring elective intubation Assessment: Grade I airway Plan: WTE Post-operative pain 04/22/2019 05/01/2019 Overview: History: 04/22/2019: AVR Assessment: Pain control adequate Plan: Continue scheduled Tylenol and prn oxycodone and tramadol. Preop testing 04/19/2019 04/30/2019 Overview: Date of Consult: 04/12 Type of surgery: Redo AVR/root +/- MVr Date preop tests completed:April 19, 2019 Waiting on: Date Surgeon reviewed Patient: 04/18 Patient work up completed: Waiting on: Date of decision by Surgeon: April 19, 2019 Deemed candidate: Yes Date of surgery: 04/22 Reasons for delay: na [facility] and [facility] PRE-OP CHECKLIST Surgeon: Dr. Forrest Rios Informed Consent Completed: pending STS Score: RISK SCORES Procedure: Isolated AVR CALCULATE Risk of Mortality: 4.605% Renal Failure: 3.404% Permanent Stroke: 2.380% Prolonged Ventilation: 22.071% DSW Infection: 0.035% Reoperation: 7.729% Morbidity or Mortality: 27.681% Short Length of Stay: 12.366% Long Length of Stay: 20.018% CAD: No Is intended procedure a CABG: No - H & P completed: Yes PA/LAT: Completed CT: Completed MRI: N/A LE US: N/A Cath: Yes - reviewed: Yes EKG: Completed Is patient on Amiodarone? Yes Echo:Completed EF %: 70 PI's: N/A Carotid: Completed Mapping: N/A Dental: Completed PFT's: Completed CBC, Coags, BMP, Mg, Phos Recent Labs 04/19/19 0507 04/18/19 0800 04/18/19 0455 04/17/19 0511 WBC 7.49 8.34 7.77 7.81 HB 7.9* 8.2* 7.3* 8.4* HCT 24.7* 25.7* 23.6* 26.5* PLT 144* 151 137* 155 NA 135* -- 134* 134* K 4.5 -- 4.4 4.4 CHLOR 103 -- 102 102 CO2 20* -- 23 22 BUN 37* -- 34* 27* CREAT 1.05* -- 1.03* 1.01* GLUC 83 -- 80 77 CA 8.2* -- 8.3* 8.2* MG 2.0 -- 2.0 1.9 UA: Normal HCG:N/A ABO/ABO Confirmed: Yes Blood ordered: Yes POS ABS 4units Willing to accept blood: Yes SA Swab: Yes - results: Pending Last Dose of Anticoagulation: none Op Note: Yes with Dr. Rios Pacemaker Check: No Implants: no Consults: ID, GI DM: No Cardiac Surgical prep: Yes SIGNATURE: Myrna Car RN LABOR RELATIONS ANALYST.CONFLICTS ANALYST DATE of SERVICE: 04/19/2019 TIME of SERVICE: 11:16 AM CHECKED BY: Moderate protein-calorie malnutrition 04/12/2019 10/02/2020 Overview: History: Post-op problem. Albumin 2.9. Noted on post-op nutrition screen. Assessment: 75% of meals consumed per I/O. Plan: Follow nutrition recs. Last Assessment & Plan: - nutrition referral Parkinson's disease 03/04/2019 06/11/2019 Overview: History: Takes Sinement at home Assessment: Stable postop Plan: Resume home regimen. Last Assessment & Plan: Assessment: on Sinemet PLAN: - cont home meds Acute kidney injury 03/04/2019 03/06/2019 Last Assessment & Plan: Assessment: - noted to have HILARIO at OSH with Cr of 1.31 on presentation, improved with fluids - likely related to blood loss RESOLVED PLAN: - monitor - avoid nephrotoxins - renally dose meds Elevated troponin 12/06/2018 12/23/2018 Last Assessment & Plan: No chest pain. EKG - NSR, LVH, LAD Plan: repeat EKG and troponin Trend troponin if remains elevated here GI bleed 12/05/2018 12/23/2018 Last Assessment & Plan: Acute blood loss anemia likely from GI bleed. EGD, colonoscopy - no source of bleeding identify. CT angio Abd aorta + Iliofemoral: Enhancing polypoid lesion within the 1st segment of the duodenum concerning for slowly bleeding mass. Plan: type and screen Blood transfusion consent was taken Monitor CBC q8h for now Transfuse if Hb <7 GI consult in am Continue with PPI bid Hold ASA and other NSAID 12/[address] Bonilla's team for transgastric endoscopy + possible resection of remnant/dudenal first part if needed requested cardiology input due to severe as appreciate their input 12/19 OR on 12/21 npo at 1 am on 12/21 12/21 100 ml of periop bleed found a bleeding du and clipped saw in recovery room groggy coming out of anesthesia 2 hours procedure weaned ot 50% vm in hte theatre and brought to pacu on 2 liters out ot floor in an hour ODELL (iron deficiency anemia) 12/05/2018 Last Assessment & Plan: Assessment: most recent labs show normal H/H, but does take Ferrous sulfate Postoperative hypertension 04/26 Overview: History: 04/22/2019: AVR Assessment: Requiring NTG infusion postop Plan: Titrate to maintain MAPs 65-75. Last Assessment & Plan: Home meds: losartan 50 - was on losartan-hctz prior to December admission stable PLAN: - hold in setting of ?GI bleed Depression 12/23/2018 Last Assessment & Plan: No suicidal or homicidal ideation. Stable. Continue with Citalopram documented as of this encounter (statuses as of 02/02/2022) [facility]07-[facility]-2020 History of Past illness Narrative* Problem Noted Date Resolved Date Other pancytopenia 01/01/2020 03/27/2020 Transition of care performed with sharing of clinical summary 04/30/2019 03/27/2020 Overview: Indication for Surgery: Prosthetic aortic valve endocarditis Preop LVEF: 75% RVF: Normal Postop LVEF: Normal RVF: Normal Cath: mild non obsx CAD Cards: Papito Harmony EKG: NSR w/ 1st degree Important/Relevant PMH/PSH: 73F from [facility] with GERD, depression, HTN, gastric bypass, PUD with recent GIB, nephrolithiasis, s/p AVR 2002 admitted with prosthetic valve endocarditis c/b severe AI, posterior root abscess, Parkinsons, CKD, overactive bladder Preoperative Hospital Course Admitted 04/10 with severe aortic insufficiency related to endocarditis Airway Difficulty: Grade I - easy Pacing wires: No. A/V pulled 04/30 Chronological list of Surgeries and Major Events 04/22/2019: Redo AVR, MVr_ 04/29/2019: PPM placement A/P of Major Active ICU Problems Cardiac: EP following for pacer dependency with ventricular rate <30 underneath. Continue DDD 80, mA 10, 5. Formal echo 04/26 showed EF 75%, RV normal. NPO, plan for PPM today. Renal:CKD-- SrCr 0.89, downtrending. Avoid nephrotoxic agents, trend fluid balance and electrolytes. 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 Continue ceftriaxone. Transferred to floor 04/29/19 To do or to watch: Access: Right arm PICC placed 04/30. - POD#7. No tubes/wires. AV paced. On room air. - s/p Redo AVR, MVr for IE: Surg path reviewed. Bacterial PCR + Streptococcus mutans. ID following. PICC placed 04/30. CoPat started. Continue Ceftriaxone through 06/03. Post-op echo completed 04/26: EF 75%, trace Mr, trivial-small pericardial effusion. - s/p PPM: Device check completed 04/30. - FVO: Up 3.7kg. Continue lasix - Dispo: 73 yo female from [place], [place]. Daughter can help. SW following. PT/OT rec home PT/OT; HHC for IV antibiotics. Face-to face ordered. Should be ready for dc when accepting facility found. [facility] f/u scheduled. [facility] OPD f/u requested. Discharge Planning: Anticipated Discharge Date: 05/01/2019 if HHC arranged. Barriers to Discharge: Other: accepting home care agency and - In Process Care Management Discharge Needs: Needs Prior to Discharge: Accepting Facility;IV Antibiotics Discharge planning issues 04/30/20192019 Overview: 73 yo female from [place], [place]. Daughter can help. SW following. PT/OT rec home PT/OT; HHC for IV antibiotics. Face-to face ordered. Should be ready for dc when accepting facility found. Thrombocytopenia 04/24/2019 04/26/2019 On mechanically assisted ventilation 04/22/2019 04/23/2019 Overview: History: Post op cardiac surgery requiring elective intubation Assessment: Grade I airway Plan: WTE Post-operative pain 04/22/2019 05/01/2019 Overview: History: 04/22/2019: AVR Assessment: Pain control adequate Plan: Continue scheduled Tylenol and prn oxycodone and tramadol. Preop testing 04/19/2019 04/30/2019 Overview: Date of Consult: 04/12 Type of surgery: Redo AVR/root +/- MVr Date preop tests completed:April 19, 2019 Waiting on: Date Surgeon reviewed Patient: 04/18 Patient work up completed: Waiting on: Date of decision by Surgeon: April 19, 2019 Deemed candidate: Yes Date of surgery: 04/22 Reasons for delay: na [facility] and [facility] PRE-OP CHECKLIST Surgeon: Dr. Forrest Rios Informed Consent Completed: pending STS Score: RISK SCORES Procedure: Isolated AVR CALCULATE Risk of Mortality: 4.605% Renal Failure: 3.404% Permanent Stroke: 2.380% Prolonged Ventilation: 22.071% DSW Infection: 0.035% Reoperation: 7.729% Morbidity or Mortality: 27.681% Short Length of Stay: 12.366% Long Length of Stay: 20.018% CAD: No Is intended procedure a CABG: No - H & P completed: Yes PA/LAT: Completed CT: Completed MRI: N/A LE US: N/A Cath: Yes - reviewed: Yes EKG: Completed Is patient on Amiodarone? Yes Echo:Completed EF %: 70 PI's: N/A Carotid: Completed Mapping: N/A Dental: Completed PFT's: Completed CBC, Coags, BMP, Mg, Phos Recent Labs 04/19/19 0507 04/18/19 0800 04/18/19 0455 04/17/19 0511 WBC 7.49 8.34 7.77 7.81 HB 7.9* 8.2* 7.3* 8.4* HCT 24.7* 25.7* 23.6* 26.5* PLT 144* 151 137* 155 NA 135* -- 134* 134* K 4.5 -- 4.4 4.4 CHLOR 103 -- 102 102 CO2 20* -- 23 22 BUN 37* -- 34* 27* CREAT 1.05* -- 1.03* 1.01* GLUC 83 -- 80 77 CA 8.2* -- 8.3* 8.2* MG 2.0 -- 2.0 1.9 UA: Normal HCG:N/A ABO/ABO Confirmed: Yes Blood ordered: Yes POS ABS 4units Willing to accept blood: Yes SA Swab: Yes - results: Pending Last Dose of Anticoagulation: none Op Note: Yes with Dr. Rios Pacemaker Check: No Implants: no Consults: ID, GI DM: No Cardiac Surgical prep: Yes SIGNATURE: Myrna Car RN LABOR RELATIONS ANALYST.CONFLICTS ANALYST DATE of SERVICE: 04/19/2019 TIME of SERVICE: 11:16 AM CHECKED BY: Moderate protein-calorie malnutrition 04/12/2019 10/02/2020 Overview: History: Post-op problem. Albumin 2.9. Noted on post-op nutrition screen. Assessment: 75% of meals consumed per I/O. Plan: Follow nutrition recs. Last Assessment & Plan: - nutrition referral Parkinson's disease 03/04/2019 06/11/2019 Overview: History: Takes Sinement at home Assessment: Stable postop Plan: Resume home regimen. Last Assessment & Plan: Assessment: on Sinemet PLAN: - cont home meds Acute kidney injury 03/04/2019 03/06/2019 Last Assessment & Plan: Assessment: - noted to have HILARIO at OSH with Cr of 1.31 on presentation, improved with fluids - likely related to blood loss RESOLVED PLAN: - monitor - avoid nephrotoxins - renally dose meds Elevated troponin 12/06/2018 12/23/2018 Last Assessment & Plan: No chest pain. EKG - NSR, LVH, LAD Plan: repeat EKG and troponin Trend troponin if remains elevated here GI bleed 12/05/2018 12/23/2018 Last Assessment & Plan: Acute blood loss anemia likely from GI bleed. EGD, colonoscopy - no source of bleeding identify. CT angio Abd aorta + Iliofemoral: Enhancing polypoid lesion within the 1st segment of the duodenum concerning for slowly bleeding mass. Plan: type and screen Blood transfusion consent was taken Monitor CBC q8h for now Transfuse if Hb <7 GI consult in am Continue with PPI bid Hold ASA and other NSAID 12/[address] Bonilla's team for transgastric endoscopy + possible resection of remnant/dudenal first part if needed requested cardiology input due to severe as appreciate their input 12/19 OR on 12/21 npo at 1 am on 12/21 12/21 100 ml of periop bleed found a bleeding du and clipped saw in recovery room groggy coming out of anesthesia 2 hours procedure weaned ot 50% vm in hte theatre and brought to pacu on 2 liters out ot floor in an hour ODELL (iron deficiency anemia) 12/05/2018 Last Assessment & Plan: Assessment: most recent labs show normal H/H, but does take Ferrous sulfate Postoperative hypertension 04/26 Overview: History: 04/22/2019: AVR Assessment: Requiring NTG infusion postop Plan: Titrate to maintain MAPs 65-75. Last Assessment & Plan: Home meds: losartan 50 - was on losartan-hctz prior to December admission stable PLAN: - hold in setting of ?GI bleed Depression 12/23/2018 Last Assessment & Plan: No suicidal or homicidal ideation. Stable. Continue with Citalopram documented as of this encounter (statuses as of 02/21/2022) [facility]07-29-2020 History of Past illness Narrative* Problem Noted Date Resolved Date Other pancytopenia 01/01/2020 03/27/2020 Transition of care performed with sharing of clinical summary 04/30/2019 03/27/2020 Overview: Indication for Surgery: Prosthetic aortic valve endocarditis Preop LVEF: 75% RVF: Normal Postop LVEF: Normal RVF: Normal Cath: mild non obsx CAD Cards: [facility] EKG: NSR w/ 1st degree Important/Relevant PMH/PSH: 73F from [facility] with GERD, depression, HTN, gastric bypass, PUD with recent GIB, nephrolithiasis, s/p AVR 2002 admitted with prosthetic valve endocarditis c/b severe AI, posterior root abscess, Parkinsons, CKD, overactive bladder Preoperative Hospital Course Admitted 04/10 with severe aortic insufficiency related to endocarditis Airway Difficulty: Grade I - easy Pacing wires: No. A/V pulled 04/30 Chronological list of Surgeries and Major Events 04/22/2019: Redo AVR, MVr_ 04/29/2019: PPM placement A/P of Major Active ICU Problems Cardiac: EP following for pacer dependency with ventricular rate <30 underneath. Continue DDD 80, mA 10, 5. Formal echo 04/26 showed EF 75%, RV normal. NPO, plan for PPM today. Renal:CKD-- SrCr 0.89, downtrending. Avoid nephrotoxic agents, trend fluid balance and electrolytes. 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 Continue ceftriaxone. Transferred to floor 04/29/19 To do or to watch: Access: Right arm PICC placed 04/30. - POD#7. No tubes/wires. AV paced. On room air. - s/p Redo AVR, MVr for IE: Surg path reviewed. Bacterial PCR + Streptococcus mutans. ID following. PICC placed 04/30. CoPat started. Continue Ceftriaxone through 06/03. Post-op echo completed 04/26: EF 75%, trace Mr, trivial-small pericardial effusion. - s/p PPM: Device check completed 04/30. - FVO: Up 3.7kg. Continue lasix - Dispo: 73 yo female from [place], [place]. Daughter can help. SW following. PT/OT rec home PT/OT; HHC for IV antibiotics. Face-to face ordered. Should be ready for dc when accepting facility found. [facility] f/u scheduled. [facility] OPD f/u requested. Discharge Planning: Anticipated Discharge Date: 05/01/2019 if HHC arranged. Barriers to Discharge: Other: accepting home care agency and - In Process Care Management Discharge Needs: Needs Prior to Discharge: Accepting Facility;IV Antibiotics Discharge planning issues 04/30/20192019 Overview: 73 yo female from [place], [place]. Daughter can help. SW following. PT/OT rec home PT/OT; HHC for IV antibiotics. Face-to face ordered. Should be ready for dc when accepting facility found. Thrombocytopenia 04/24/2019 04/26/2019 On mechanically assisted ventilation 04/22/2019 04/23/2019 Overview: History: Post op cardiac surgery requiring elective intubation Assessment: Grade I airway Plan: WTE Post-operative pain 04/22/2019 05/01/2019 Overview: History: 04/22/2019: AVR Assessment: Pain control adequate Plan: Continue scheduled Tylenol and prn oxycodone and tramadol. Preop testing 04/19/2019 04/30/2019 Overview: Date of Consult: 04/12 Type of surgery: Redo AVR/root +/- MVr Date preop tests completed:April 19, 2019 Waiting on: Date Surgeon reviewed Patient: 04/18 Patient work up completed: Waiting on: Date of decision by Surgeon: April 19, 2019 Deemed candidate: Yes Date of surgery: 04/22 Reasons for delay: na [facility] PRE-OP CHECKLIST Surgeon: Dr. Forrest Rios Informed Consent Completed: pending STS Score: RISK SCORES Procedure: Isolated AVR CALCULATE Risk of Mortality: 4.605% Renal Failure: 3.404% Permanent Stroke: 2.380% Prolonged Ventilation: 22.071% DSW Infection: 0.035% Reoperation: 7.729% Morbidity or Mortality: 27.681% Short Length of Stay: 12.366% Long Length of Stay: 20.018% CAD: No Is intended procedure a CABG: No - H & P completed: Yes PA/LAT: Completed CT: Completed MRI: N/A LE US: N/A Cath: Yes - reviewed: Yes EKG: Completed Is patient on Amiodarone? Yes Echo:Completed EF %: 70 PI's: N/A Carotid: Completed Mapping: N/A Dental: Completed PFT's: Completed CBC, Coags, BMP, Mg, Phos Recent Labs 04/19/19 0507 04/18/19 0800 04/18/19 0455 04/17/19 0511 WBC 7.49 8.34 7.77 7.81 HB 7.9* 8.2* 7.3* 8.4* HCT 24.7* 25.7* 23.6* 26.5* PLT 144* 151 137* 155 NA 135* -- 134* 134* K 4.5 -- 4.4 4.4 CHLOR 103 -- 102 102 CO2 20* -- 23 22 BUN 37* -- 34* 27* CREAT 1.05* -- 1.03* 1.01* GLUC 83 -- 80 77 CA 8.2* -- 8.3* 8.2* MG 2.0 -- 2.0 1.9 UA: Normal HCG:N/A ABO/ABO Confirmed: Yes Blood ordered: Yes POS ABS 4units Willing to accept blood: Yes SA Swab: Yes - results: Pending Last Dose of Anticoagulation: none Op Note: Yes with Dr. Rios Pacemaker Check: No Implants: no Consults: ID, GI DM: No Cardiac Surgical prep: Yes SIGNATURE: Myrna Car RN LABOR RELATIONS ANALYST.CONFLICTS ANALYST DATE of SERVICE: 04/19/2019 TIME of SERVICE: 11:16 AM CHECKED BY: Moderate protein-calorie malnutrition 04/12/2019 10/02/2020 Overview: History: Post-op problem. Albumin 2.9. Noted on post-op nutrition screen. Assessment: 75% of meals consumed per I/O. Plan: Follow nutrition recs. Last Assessment & Plan: - nutrition referral Parkinson's disease 03/04/2019 06/11/2019 Overview: History: Takes Sinement at home Assessment: Stable postop Plan: Resume home regimen. Last Assessment & Plan: Assessment: on Sinemet PLAN: - cont home meds Acute kidney injury 03/04/2019 03/06/2019 Last Assessment & Plan: Assessment: - noted to have HILARIO at OSH with Cr of 1.31 on presentation, improved with fluids - likely related to blood loss RESOLVED PLAN: - monitor - avoid nephrotoxins - renally dose meds Elevated troponin 12/06/2018 12/23/2018 Last Assessment & Plan: No chest pain. EKG - NSR, LVH, LAD Plan: repeat EKG and troponin Trend troponin if remains elevated here GI bleed 12/05/2018 12/23/2018 Last Assessment & Plan: Acute blood loss anemia likely from GI bleed. EGD, colonoscopy - no source of bleeding identify. CT angio Abd aorta + Iliofemoral: Enhancing polypoid lesion within the 1st segment of the duodenum concerning for slowly bleeding mass. Plan: type and screen Blood transfusion consent was taken Monitor CBC q8h for now Transfuse if Hb <7 GI consult in am Continue with PPI bid Hold ASA and other NSAID 12/[address] Bonilla's team for transgastric endoscopy + possible resection of remnant/dudenal first part if needed requested cardiology input due to severe as appreciate their input 12/19 OR on 12/21 npo at 1 am on 12/21 12/21 100 ml of periop bleed found a bleeding du and clipped saw in recovery room groggy coming out of anesthesia 2 hours procedure weaned ot 50% vm in hte theatre and brought to pacu on 2 liters out ot floor in an hour ODELL (iron deficiency anemia) 12/05/2018 Last Assessment & Plan: Assessment: most recent labs show normal H/H, but does take Ferrous sulfate Postoperative hypertension 04/26 Overview: History: 04/22/2019: AVR Assessment: Requiring NTG infusion postop Plan: Titrate to maintain MAPs 65-75. Last Assessment & Plan: Home meds: losartan 50 - was on losartan-hctz prior to December admission stable PLAN: - hold in setting of ?GI bleed Depression 12/23/2018 Last Assessment & Plan: No suicidal or homicidal ideation. Stable. Continue with Citalopram documented as of this encounter (statuses as of 02/22/2022) [facility]07-29-2020 History of Past illness Narrative* Problem Noted Date Resolved Date Other pancytopenia 01/01/2020 03/27/2020 Transition of care performed with sharing of clinical summary 04/30/2019 03/27/2020 Overview: Indication for Surgery: Prosthetic aortic valve endocarditis Preop LVEF: 75% RVF: Normal Postop LVEF: Normal RVF: Normal Cath: mild non obsx CAD Cards: [facility] EKG: NSR w/ 1st degree Important/Relevant PMH/PSH: 73F from [facility] with GERD, depression, HTN, gastric bypass, PUD with recent GIB, nephrolithiasis, s/p AVR 2002 admitted with prosthetic valve endocarditis c/b severe AI, posterior root abscess, Parkinsons, CKD, overactive bladder Preoperative Hospital Course Admitted 04/10 with severe aortic insufficiency related to endocarditis Airway Difficulty: Grade I - easy Pacing wires: No. A/V pulled 04/30 Chronological list of Surgeries and Major Events 04/22/2019: Redo AVR, MVr_ 04/29/2019: PPM placement A/P of Major Active ICU Problems Cardiac: EP following for pacer dependency with ventricular rate <30 underneath. Continue DDD 80, mA 10, 5. Formal echo 04/26 showed EF 75%, RV normal. NPO, plan for PPM today. Renal:CKD-- SrCr 0.89, downtrending. Avoid nephrotoxic agents, trend fluid balance and electrolytes. 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 Continue ceftriaxone. Transferred to floor 04/29/19 To do or to watch: Access: Right arm PICC placed 04/30. - POD#7. No tubes/wires. AV paced. On room air. - s/p Redo AVR, MVr for IE: Surg path reviewed. Bacterial PCR + Streptococcus mutans. ID following. PICC placed 04/30. CoPat started. Continue Ceftriaxone through 06/03. Post-op echo completed 04/26: EF 75%, trace Mr, trivial-small pericardial effusion. - s/p PPM: Device check completed 04/30. - FVO: Up 3.7kg. Continue lasix - Dispo: 73 yo female from [place], [place]. Daughter can help. SW following. PT/OT rec home PT/OT; HHC for IV antibiotics. Face-to face ordered. Should be ready for dc when accepting facility found. [facility] f/u scheduled. [facility] OPD f/u requested. Discharge Planning: Anticipated Discharge Date: 05/01/2019 if HHC arranged. Barriers to Discharge: Other: accepting home care agency and - In Process Care Management Discharge Needs: Needs Prior to Discharge: Accepting Facility;IV Antibiotics Discharge planning issues 04/30/20192019 Overview: 73 yo female from [place], [place]. Daughter can help. SW following. PT/OT rec home PT/OT; HHC for IV antibiotics. Face-to face ordered. Should be ready for dc when accepting facility found. Thrombocytopenia 04/24/2019 04/26/2019 On mechanically assisted ventilation 04/22/2019 04/23/2019 Overview: History: Post op cardiac surgery requiring elective intubation Assessment: Grade I airway Plan: WTE Post-operative pain 04/22/2019 05/01/2019 Overview: History: 04/22/2019: AVR Assessment: Pain control adequate Plan: Continue scheduled Tylenol and prn oxycodone and tramadol. Preop testing 04/19/2019 04/30/2019 Overview: Date of Consult: 04/12 Type of surgery: Redo AVR/root +/- MVr Date preop tests completed:April 19, 2019 Waiting on: Date Surgeon reviewed Patient: 04/18 Patient work up completed: Waiting on: Date of decision by Surgeon: April 19, 2019 Deemed candidate: Yes Date of surgery: 04/22 Reasons for delay: na [facility] and [facility] PRE-OP CHECKLIST Surgeon: Dr. Forrest Rios Informed Consent Completed: pending STS Score: RISK SCORES Procedure: Isolated AVR CALCULATE Risk of Mortality: 4.605% Renal Failure: 3.404% Permanent Stroke: 2.380% Prolonged Ventilation: 22.071% DSW Infection: 0.035% Reoperation: 7.729% Morbidity or Mortality: 27.681% Short Length of Stay: 12.366% Long Length of Stay: 20.018% CAD: No Is intended procedure a CABG: No - H & P completed: Yes PA/LAT: Completed CT: Completed MRI: N/A LE US: N/A Cath: Yes - reviewed: Yes EKG: Completed Is patient on Amiodarone? Yes Echo:Completed EF %: 70 PI's: N/A Carotid: Completed Mapping: N/A Dental: Completed PFT's: Completed CBC, Coags, BMP, Mg, Phos Recent Labs 04/19/19 0507 04/18/19 0800 04/18/19 0455 04/17/19 0511 WBC 7.49 8.34 7.77 7.81 HB 7.9* 8.2* 7.3* 8.4* HCT 24.7* 25.7* 23.6* 26.5* PLT 144* 151 137* 155 NA 135* -- 134* 134* K 4.5 -- 4.4 4.4 CHLOR 103 -- 102 102 CO2 20* -- 23 22 BUN 37* -- 34* 27* CREAT 1.05* -- 1.03* 1.01* GLUC 83 -- 80 77 CA 8.2* -- 8.3* 8.2* MG 2.0 -- 2.0 1.9 UA: Normal HCG:N/A ABO/ABO Confirmed: Yes Blood ordered: Yes POS ABS 4units Willing to accept blood: Yes SA Swab: Yes - results: Pending Last Dose of Anticoagulation: none Op Note: Yes with Dr. Rios Pacemaker Check: No Implants: no Consults: ID, GI DM: No Cardiac Surgical prep: Yes SIGNATURE: Myrna Car RN LABOR RELATIONS ANALYST.CONFLICTS ANALYST DATE of SERVICE: 04/19/2019 TIME of SERVICE: 11:16 AM CHECKED BY: Moderate protein-calorie malnutrition 04/12/2019 10/02/2020 Overview: History: Post-op problem. Albumin 2.9. Noted on post-op nutrition screen. Assessment: 75% of meals consumed per I/O. Plan: Follow nutrition recs. Last Assessment & Plan: - nutrition referral Parkinson's disease 03/04/2019 06/11/2019 Overview: History: Takes Sinement at home Assessment: Stable postop Plan: Resume home regimen. Last Assessment & Plan: Assessment: on Sinemet PLAN: - cont home meds Acute kidney injury 03/04/2019 03/06/2019 Last Assessment & Plan: Assessment: - noted to have HILARIO at OSH with Cr of 1.31 on presentation, improved with fluids - likely related to blood loss RESOLVED PLAN: - monitor - avoid nephrotoxins - renally dose meds Elevated troponin 12/06/2018 12/23/2018 Last Assessment & Plan: No chest pain. EKG - NSR, LVH, LAD Plan: repeat EKG and troponin Trend troponin if remains elevated here GI bleed 12/05/2018 12/23/2018 Last Assessment & Plan: Acute blood loss anemia likely from GI bleed. EGD, colonoscopy - no source of bleeding identify. CT angio Abd aorta + Iliofemoral: Enhancing polypoid lesion within the 1st segment of the duodenum concerning for slowly bleeding mass. Plan: type and screen Blood transfusion consent was taken Monitor CBC q8h for now Transfuse if Hb <7 GI consult in am Continue with PPI bid Hold ASA and other NSAID 12/[address] Bonilla's team for transgastric endoscopy + possible resection of remnant/dudenal first part if needed requested cardiology input due to severe as appreciate their input 12/19 OR on 12/21 npo at 1 am on 12/21 12/21 100 ml of periop bleed found a bleeding du and clipped saw in recovery room groggy coming out of anesthesia 2 hours procedure weaned ot 50% vm in hte theatre and brought to pacu on 2 liters out ot floor in an hour ODELL (iron deficiency anemia) 12/05/2018 Last Assessment & Plan: Assessment: most recent labs show normal H/H, but does take Ferrous sulfate Postoperative hypertension 04/26 Overview: History: 04/22/2019: AVR Assessment: Requiring NTG infusion postop Plan: Titrate to maintain MAPs 65-75. Last Assessment & Plan: Home meds: losartan 50 - was on losartan-hctz prior to December admission stable PLAN: - hold in setting of ?GI bleed Depression 12/23/2018 Last Assessment & Plan: No suicidal or homicidal ideation. Stable. Continue with Citalopram documented as of this encounter (statuses as of 03/01/2022) [facility]07-29-2020 History of Past illness Narrative* Problem Noted Date Resolved Date Other pancytopenia 01/01/2020 03/27/2020 Transition of care performed with sharing of clinical summary 04/30/2019 03/27/2020 Overview: Indication for Surgery: Prosthetic aortic valve endocarditis Preop LVEF: 75% RVF: Normal Postop LVEF: Normal RVF: Normal Cath: mild non obsx CAD Cards: [facility] EKG: NSR w/ 1st degree Important/Relevant PMH/PSH: 73F from [facility] with GERD, depression, HTN, gastric bypass, PUD with recent GIB, nephrolithiasis, s/p AVR 2002 admitted with prosthetic valve endocarditis c/b severe AI, posterior root abscess, Parkinsons, CKD, overactive bladder Preoperative Hospital Course Admitted 04/10 with severe aortic insufficiency related to endocarditis Airway Difficulty: Grade I - easy Pacing wires: No. A/V pulled 04/30 Chronological list of Surgeries and Major Events 04/22/2019: Redo AVR, MVr_ 04/29/2019: PPM placement A/P of Major Active ICU Problems Cardiac: EP following for pacer dependency with ventricular rate <30 underneath. Continue DDD 80, mA 10, 5. Formal echo 04/26 showed EF 75%, RV normal. NPO, plan for PPM today. Renal:CKD-- SrCr 0.89, downtrending. Avoid nephrotoxic agents, trend fluid balance and electrolytes. 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 Continue ceftriaxone. Transferred to floor 04/29/19 To do or to watch: Access: Right arm PICC placed 04/30. - POD#7. No tubes/wires. AV paced. On room air. - s/p Redo AVR, MVr for IE: Surg path reviewed. Bacterial PCR + Streptococcus mutans. ID following. PICC placed 04/30. CoPat started. Continue Ceftriaxone through 06/03. Post-op echo completed 04/26: EF 75%, trace Mr, trivial-small pericardial effusion. - s/p PPM: Device check completed 04/30. - FVO: Up 3.7kg. Continue lasix - Dispo: 73 yo female from [place], [place]. Daughter can help. SW following. PT/OT rec home PT/OT; HHC for IV antibiotics. Face-to face ordered. Should be ready for dc when accepting facility found. [facility] f/u scheduled. [facility] OPD f/u requested. Discharge Planning: Anticipated Discharge Date: 05/01/2019 if HHC arranged. Barriers to Discharge: Other: accepting home care agency and - In Process Care Management Discharge Needs: Needs Prior to Discharge: Accepting Facility;IV Antibiotics Discharge planning issues 04/30/20192019 Overview: 73 yo female from [place], [place]. Daughter can help. SW following. PT/OT rec home PT/OT; HHC for IV antibiotics. Face-to face ordered. Should be ready for dc when accepting facility found. Thrombocytopenia 04/24/2019 04/26/2019 On mechanically assisted ventilation 04/22/2019 04/23/2019 Overview: History: Post op cardiac surgery requiring elective intubation Assessment: Grade I airway Plan: WTE Post-operative pain 04/22/2019 05/01/2019 Overview: History: 04/22/2019: AVR Assessment: Pain control adequate Plan: Continue scheduled Tylenol and prn oxycodone and tramadol. Preop testing 04/19/2019 04/30/2019 Overview: Date of Consult: 04/12 Type of surgery: Redo AVR/root +/- MVr Date preop tests completed:April 19, 2019 Waiting on: Date Surgeon reviewed Patient: 04/18 Patient work up completed: Waiting on: Date of decision by Surgeon: April 19, 2019 Deemed candidate: Yes Date of surgery: 04/22 Reasons for delay: na [facility] and [facility] PRE-OP CHECKLIST Surgeon: Dr. Forrest Rios Informed Consent Completed: pending STS Score: RISK SCORES Procedure: Isolated AVR CALCULATE Risk of Mortality: 4.605% Renal Failure: 3.404% Permanent Stroke: 2.380% Prolonged Ventilation: 22.071% DSW Infection: 0.035% Reoperation: 7.729% Morbidity or Mortality: 27.681% Short Length of Stay: 12.366% Long Length of Stay: 20.018% CAD: No Is intended procedure a CABG: No - H & P completed: Yes PA/LAT: Completed CT: Completed MRI: N/A LE US: N/A Cath: Yes - reviewed: Yes EKG: Completed Is patient on Amiodarone? Yes Echo:Completed EF %: 70 PI's: N/A Carotid: Completed Mapping: N/A Dental: Completed PFT's: Completed CBC, Coags, BMP, Mg, Phos Recent Labs 04/19/19 0507 04/18/19 0800 04/18/19 0455 04/17/19 0511 WBC 7.49 8.34 7.77 7.81 HB 7.9* 8.2* 7.3* 8.4* HCT 24.7* 25.7* 23.6* 26.5* PLT 144* 151 137* 155 NA 135* -- 134* 134* K 4.5 -- 4.4 4.4 CHLOR 103 -- 102 102 CO2 20* -- 23 22 BUN 37* -- 34* 27* CREAT 1.05* -- 1.03* 1.01* GLUC 83 -- 80 77 CA 8.2* -- 8.3* 8.2* MG 2.0 -- 2.0 1.9 UA: Normal HCG:N/A ABO/ABO Confirmed: Yes Blood ordered: Yes POS ABS 4units Willing to accept blood: Yes SA Swab: Yes - results: Pending Last Dose of Anticoagulation: none Op Note: Yes with Dr. Rios Pacemaker Check: No Implants: no Consults: ID, GI DM: No Cardiac Surgical prep: Yes SIGNATURE: Myrna Car RN LABOR RELATIONS ANALYST.CONFLICTS ANALYST DATE of SERVICE: 04/19/2019 TIME of SERVICE: 11:16 AM CHECKED BY: Moderate protein-calorie malnutrition 04/12/2019 10/02/2020 Overview: History: Post-op problem. Albumin 2.9. Noted on post-op nutrition screen. Assessment: 75% of meals consumed per I/O. Plan: Follow nutrition recs. Last Assessment & Plan: - nutrition referral Parkinson's disease 03/04/2019 06/11/2019 Overview: History: Takes Sinement at home Assessment: Stable postop Plan: Resume home regimen. Last Assessment & Plan: Assessment: on Sinemet PLAN: - cont home meds Acute kidney injury 03/04/2019 03/06/2019 Last Assessment & Plan: Assessment: - noted to have HILARIO at OSH with Cr of 1.31 on presentation, improved with fluids - likely related to blood loss RESOLVED PLAN: - monitor - avoid nephrotoxins - renally dose meds Elevated troponin 12/06/2018 12/23/2018 Last Assessment & Plan: No chest pain. EKG - NSR, LVH, LAD Plan: repeat EKG and troponin Trend troponin if remains elevated here GI bleed 12/05/2018 12/23/2018 Last Assessment & Plan: Acute blood loss anemia likely from GI bleed. EGD, colonoscopy - no source of bleeding identify. CT angio Abd aorta + Iliofemoral: Enhancing polypoid lesion within the 1st segment of the duodenum concerning for slowly bleeding mass. Plan: type and screen Blood transfusion consent was taken Monitor CBC q8h for now Transfuse if Hb <7 GI consult in am Continue with PPI bid Hold ASA and other NSAID 12/[address] Bonilla's team for transgastric endoscopy + possible resection of remnant/dudenal first part if needed requested cardiology input due to severe as appreciate their input 12/19 OR on 12/21 npo at 1 am on 12/21 12/21 100 ml of periop bleed found a bleeding du and clipped saw in recovery room groggy coming out of anesthesia 2 hours procedure weaned ot 50% vm in hte theatre and brought to pacu on 2 liters out ot floor in an hour ODELL (iron deficiency anemia) 12/05/2018 Last Assessment & Plan: Assessment: most recent labs show normal H/H, but does take Ferrous sulfate Postoperative hypertension 04/26 Overview: History: 04/22/2019: AVR Assessment: Requiring NTG infusion postop Plan: Titrate to maintain MAPs 65-75. Last Assessment & Plan: Home meds: losartan 50 - was on losartan-hctz prior to December admission stable PLAN: - hold in setting of ?GI bleed Depression 12/23/2018 Last Assessment & Plan: No suicidal or homicidal ideation. Stable. Continue with Citalopram documented as of this encounter (statuses as of 03/05/2022) [facility] History of Past illness Narrative* Problem Noted Date Resolved Date Other pancytopenia 01/01/2020 03/27/2020 Transition of care performed with sharing of clinical summary 04/30/2019 03/27/2020 Overview: Indication for Surgery: Prosthetic aortic valve endocarditis Preop LVEF: 75% RVF: Normal Postop LVEF: Normal RVF: Normal Cath: mild non obsx CAD Cards: [facility] EKG: NSR w/ 1st degree Important/Relevant PMH/PSH: 73F from [place] with GERD, depression, HTN, gastric bypass, PUD with recent GIB, nephrolithiasis, s/p AVR 2002 admitted with prosthetic valve endocarditis c/b severe AI, posterior root abscess, Parkinsons, CKD, overactive bladder Preoperative Hospital Course Admitted 04/10 with severe aortic insufficiency related to endocarditis Airway Difficulty: Grade I - easy Pacing wires: No. A/V pulled 04/30 Chronological list of Surgeries and Major Events 04/22/2019: Redo AVR, MVr_ 04/29/2019: PPM placement A/P of Major Active ICU Problems Cardiac: EP following for pacer dependency with ventricular rate <30 underneath. Continue DDD 80, mA 10, 5. Formal echo 04/26 showed EF 75%, RV normal. NPO, plan for PPM today. Renal:CKD-- SrCr 0.89, downtrending. Avoid nephrotoxic agents, trend fluid balance and electrolytes. 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 Continue ceftriaxone. Transferred to floor 04/29/19 To do or to watch: Access: Right arm PICC placed 04/30. - POD#7. No tubes/wires. AV paced. On room air. - s/p Redo AVR, MVr for IE: Surg path reviewed. Bacterial PCR + Streptococcus mutans. ID following. PICC placed 04/30. CoPat started. Continue Ceftriaxone through 06/03. Post-op echo completed 04/26: EF 75%, trace Mr, trivial-small pericardial effusion. - s/p PPM: Device check completed 04/30. - FVO: Up 3.7kg. Continue lasix - Dispo: 73 yo female from [place], [place]. Daughter can help. SW following. PT/OT rec home PT/OT; HHC for IV antibiotics. Face-to face ordered. Should be ready for dc when accepting facility found. [facility] f/u scheduled. [facility] OPD f/u requested. Discharge Planning: Anticipated Discharge Date: 05/01/2019 if HHC arranged. Barriers to Discharge: Other: accepting home care agency and - In Process Care Management Discharge Needs: Needs Prior to Discharge: Accepting Facility;IV Antibiotics Discharge planning issues 04/30/20192019 Overview: 73 yo female from [place], [place]. Daughter can help. SW following. PT/OT rec home PT/OT; HHC for IV antibiotics. Face-to face ordered. Should be ready for dc when accepting facility found. Thrombocytopenia 04/24/2019 04/26/2019 On mechanically assisted ventilation 04/22/2019 04/23/2019 Overview: History: Post op cardiac surgery requiring elective intubation Assessment: Grade I airway Plan: WTE Post-operative pain 04/22/2019 05/01/2019 Overview: History: 04/22/2019: AVR Assessment: Pain control adequate Plan: Continue scheduled Tylenol and prn oxycodone and tramadol. Preop testing 04/19/2019 04/30/2019 Overview: Date of Consult: 04/12 Type of surgery: Redo AVR/root +/- MVr Date preop tests completed:April 19, 2019 Waiting on: Date Surgeon reviewed Patient: 04/18 Patient work up completed: Waiting on: Date of decision by Surgeon: April 19, 2019 Deemed candidate: Yes Date of surgery: 04/22 Reasons for delay: na [facility] PRE-OP CHECKLIST Surgeon: Dr. Forrest Rios Informed Consent Completed: pending STS Score: RISK SCORES Procedure: Isolated AVR CALCULATE Risk of Mortality: 4.605% Renal Failure: 3.404% Permanent Stroke: 2.380% Prolonged Ventilation: 22.071% DSW Infection: 0.035% Reoperation: 7.729% Morbidity or Mortality: 27.681% Short Length of Stay: 12.366% Long Length of Stay: 20.018% CAD: No Is intended procedure a CABG: No - H & P completed: Yes PA/LAT: Completed CT: Completed MRI: N/A LE US: N/A Cath: Yes - reviewed: Yes EKG: Completed Is patient on Amiodarone? Yes Echo:Completed EF %: 70 PI's: N/A Carotid: Completed Mapping: N/A Dental: Completed PFT's: Completed CBC, Coags, BMP, Mg, Phos Recent Labs 04/19/19 0507 04/18/19 0800 04/18/19 0455 04/17/19 0511 WBC 7.49 8.34 7.77 7.81 HB 7.9* 8.2* 7.3* 8.4* HCT 24.7* 25.7* 23.6* 26.5* PLT 144* 151 137* 155 NA 135* -- 134* 134* K 4.5 -- 4.4 4.4 CHLOR 103 -- 102 102 CO2 20* -- 23 22 BUN 37* -- 34* 27* CREAT 1.05* -- 1.03* 1.01* GLUC 83 -- 80 77 CA 8.2* -- 8.3* 8.2* MG 2.0 -- 2.0 1.9 UA: Normal HCG:N/A ABO/ABO Confirmed: Yes Blood ordered: Yes POS ABS 4units Willing to accept blood: Yes SA Swab: Yes - results: Pending Last Dose of Anticoagulation: none Op Note: Yes with Dr. Rios Pacemaker Check: No Implants: no Consults: ID, GI DM: No Cardiac Surgical prep: Yes SIGNATURE: Myrna Car RN LABOR RELATIONS ANALYST.CONFLICTS ANALYST DATE of SERVICE: 04/19/2019 TIME of SERVICE: 11:16 AM CHECKED BY: Moderate protein-calorie malnutrition 04/12/2019 10/02/2020 Overview: History: Post-op problem. Albumin 2.9. Noted on post-op nutrition screen. Assessment: 75% of meals consumed per I/O. Plan: Follow nutrition recs. Last Assessment & Plan: - nutrition referral Parkinson's disease 03/04/2019 06/11/2019 Overview: History: Takes Sinement at home Assessment: Stable postop Plan: Resume home regimen. Last Assessment & Plan: Assessment: on Sinemet PLAN: - cont home meds Acute kidney injury 03/04/2019 03/06/2019 Last Assessment & Plan: Assessment: - noted to have HILARIO at OSH with Cr of 1.31 on presentation, improved with fluids - likely related to blood loss RESOLVED PLAN: - monitor - avoid nephrotoxins - renally dose meds Elevated troponin 12/06/2018 12/23/2018 Last Assessment & Plan: No chest pain. EKG - NSR, LVH, LAD Plan: repeat EKG and troponin Trend troponin if remains elevated here GI bleed 12/05/2018 12/23/2018 Last Assessment & Plan: Acute blood loss anemia likely from GI bleed. EGD, colonoscopy - no source of bleeding identify. CT angio Abd aorta + Iliofemoral: Enhancing polypoid lesion within the 1st segment of the duodenum concerning for slowly bleeding mass. Plan: type and screen Blood transfusion consent was taken Monitor CBC q8h for now Transfuse if Hb <7 GI consult in am Continue with PPI bid Hold ASA and other NSAID 12/[address] Bonilla's team for transgastric endoscopy + possible resection of remnant/dudenal first part if needed requested cardiology input due to severe as appreciate their input 12/19 OR on 12/21 npo at 1 am on 12/21 12/21 100 ml of periop bleed found a bleeding du and clipped saw in recovery room groggy coming out of anesthesia 2 hours procedure weaned ot 50% vm in hte theatre and brought to pacu on 2 liters out ot floor in an hour ODELL (iron deficiency anemia) 12/05/2018 Last Assessment & Plan: Assessment: most recent labs show normal H/H, but does take Ferrous sulfate Postoperative hypertension 04/26 Overview: History: 04/22/2019: AVR Assessment: Requiring NTG infusion postop Plan: Titrate to maintain MAPs 65-75. Last Assessment & Plan: Home meds: losartan 50 - was on losartan-hctz prior to December admission stable PLAN: - hold in setting of ?GI bleed Depression 12/23/2018 Last Assessment & Plan: No suicidal or homicidal ideation. Stable. Continue with Citalopram documented as of this encounter (statuses as of 03/15/2022) [facility]07-29-2020 History of Past illness Narrative* Problem Noted Date Resolved Date Other pancytopenia 01/01/2020 03/27/2020 Transition of care performed with sharing of clinical summary 04/30/2019 03/27/2020 Overview: Indication for Surgery: Prosthetic aortic valve endocarditis Preop LVEF: 75% RVF: Normal Postop LVEF: Normal RVF: Normal Cath: mild non obsx CAD Cards: [facility] EKG: NSR w/ 1st degree Important/Relevant PMH/PSH: 73F from [facility] with GERD, depression, HTN, gastric bypass, PUD with recent GIB, nephrolithiasis, s/p AVR 2002 admitted with prosthetic valve endocarditis c/b severe AI, posterior root abscess, Parkinsons, CKD, overactive bladder Preoperative Hospital Course Admitted 04/10 with severe aortic insufficiency related to endocarditis Airway Difficulty: Grade I - easy Pacing wires: No. A/V pulled 04/30 Chronological list of Surgeries and Major Events 04/22/2019: Redo AVR, MVr_ 04/29/2019: PPM placement A/P of Major Active ICU Problems Cardiac: EP following for pacer dependency with ventricular rate <30 underneath. Continue DDD 80, mA 10, 5. Formal echo 04/26 showed EF 75%, RV normal. NPO, plan for PPM today. Renal:CKD-- SrCr 0.89, downtrending. Avoid nephrotoxic agents, trend fluid balance and electrolytes. 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 Continue ceftriaxone. Transferred to floor 04/29/19 To do or to watch: Access: Right arm PICC placed 04/30. - POD#7. No tubes/wires. AV paced. On room air. - s/p Redo AVR, MVr for IE: Surg path reviewed. Bacterial PCR + Streptococcus mutans. ID following. PICC placed 04/30. CoPat started. Continue Ceftriaxone through 06/03. Post-op echo completed 04/26: EF 75%, trace Mr, trivial-small pericardial effusion. - s/p PPM: Device check completed 04/30. - FVO: Up 3.7kg. Continue lasix - Dispo: 73 yo female from [place], [place]. Daughter can help. SW following. PT/OT rec home PT/OT; HHC for IV antibiotics. Face-to face ordered. Should be ready for dc when accepting facility found. [facility] f/u scheduled. CTS OPD f/u requested. Discharge Planning: Anticipated Discharge Date: 05/01/2019 if HHC arranged. Barriers to Discharge: Other: accepting home care agency and - In Process Care Management Discharge Needs: Needs Prior to Discharge: Accepting Facility;IV Antibiotics Discharge planning issues 04/30/20192019 Overview: 73 yo female from [place], [place]. Daughter can help. SW following. PT/OT rec home PT/OT; HHC for IV antibiotics. Face-to face ordered. Should be ready for dc when accepting facility found. Thrombocytopenia 04/24/2019 04/26/2019 On mechanically assisted ventilation 04/22/2019 04/23/2019 Overview: History: Post op cardiac surgery requiring elective intubation Assessment: Grade I airway Plan: WTE Post-operative pain 04/22/2019 05/01/2019 Overview: History: 04/22/2019: AVR Assessment: Pain control adequate Plan: Continue scheduled Tylenol and prn oxycodone and tramadol. Preop testing 04/19/2019 04/30/2019 Overview: Date of Consult: 04/12 Type of surgery: Redo AVR/root +/- MVr Date preop tests completed:April 19, 2019 Waiting on: Date Surgeon reviewed Patient: 04/18 Patient work up completed: Waiting on: Date of decision by Surgeon: April 19, 2019 Deemed candidate: Yes Date of surgery: 04/22 Reasons for delay: na [facility] and [facility] PRE-OP CHECKLIST Surgeon: Dr. Forrest Rios Informed Consent Completed: pending STS Score: RISK SCORES Procedure: Isolated AVR CALCULATE Risk of Mortality: 4.605% Renal Failure: 3.404% Permanent Stroke: 2.380% Prolonged Ventilation: 22.071% DSW Infection: 0.035% Reoperation: 7.729% Morbidity or Mortality: 27.681% Short Length of Stay: 12.366% Long Length of Stay: 20.018% CAD: No Is intended procedure a CABG: No - H & P completed: Yes PA/LAT: Completed CT: Completed MRI: N/A LE US: N/A Cath: Yes - reviewed: Yes EKG: Completed Is patient on Amiodarone? Yes Echo:Completed EF %: 70 PI's: N/A Carotid: Completed Mapping: N/A Dental: Completed PFT's: Completed CBC, Coags, BMP, Mg, Phos Recent Labs 04/19/19 0507 04/18/19 0800 04/18/19 0455 04/17/19 0511 WBC 7.49 8.34 7.77 7.81 HB 7.9* 8.2* 7.3* 8.4* HCT 24.7* 25.7* 23.6* 26.5* PLT 144* 151 137* 155 NA 135* -- 134* 134* K 4.5 -- 4.4 4.4 CHLOR 103 -- 102 102 CO2 20* -- 23 22 BUN 37* -- 34* 27* CREAT 1.05* -- 1.03* 1.01* GLUC 83 -- 80 77 CA 8.2* -- 8.3* 8.2* MG 2.0 -- 2.0 1.9 UA: Normal HCG:N/A ABO/ABO Confirmed: Yes Blood ordered: Yes POS ABS 4units Willing to accept blood: Yes SA Swab: Yes - results: Pending Last Dose of Anticoagulation: none Op Note: Yes with Dr. Rios Pacemaker Check: No Implants: no Consults: ID, GI DM: No Cardiac Surgical prep: Yes SIGNATURE: Myrna Car RN LABOR RELATIONS ANALYST.CONFLICTS ANALYST DATE of SERVICE: 04/19/2019 TIME of SERVICE: 11:16 AM CHECKED BY: Moderate protein-calorie malnutrition 04/12/2019 10/02/2020 Overview: History: Post-op problem. Albumin 2.9. Noted on post-op nutrition screen. Assessment: 75% of meals consumed per I/O. Plan: Follow nutrition recs. Last Assessment & Plan: - nutrition referral Parkinson's disease 03/04/2019 06/11/2019 Overview: History: Takes Sinement at home Assessment: Stable postop Plan: Resume home regimen. Last Assessment & Plan: Assessment: on Sinemet PLAN: - cont home meds Acute kidney injury 03/04/2019 03/06/2019 Last Assessment & Plan: Assessment: - noted to have HILARIO at OSH with Cr of 1.31 on presentation, improved with fluids - likely related to blood loss RESOLVED PLAN: - monitor - avoid nephrotoxins - renally dose meds Elevated troponin 12/06/2018 12/23/2018 Last Assessment & Plan: No chest pain. EKG - NSR, LVH, LAD Plan: repeat EKG and troponin Trend troponin if remains elevated here GI bleed 12/05/2018 12/23/2018 Last Assessment & Plan: Acute blood loss anemia likely from GI bleed. EGD, colonoscopy - no source of bleeding identify. CT angio Abd aorta + Iliofemoral: Enhancing polypoid lesion within the 1st segment of the duodenum concerning for slowly bleeding mass. Plan: type and screen Blood transfusion consent was taken Monitor CBC q8h for now Transfuse if Hb <7 GI consult in am Continue with PPI bid Hold ASA and other NSAID 12/[address] Bonilla's team for transgastric endoscopy + possible resection of remnant/dudenal first part if needed requested cardiology input due to severe as appreciate their input 12/19 OR on 12/21 npo at 1 am on 12/21 12/21 100 ml of periop bleed found a bleeding du and clipped saw in recovery room groggy coming out of anesthesia 2 hours procedure weaned ot 50% vm in hte theatre and brought to pacu on 2 liters out ot floor in an hour ODELL (iron deficiency anemia) 12/05/2018 Last Assessment & Plan: Assessment: most recent labs show normal H/H, but does take Ferrous sulfate Postoperative hypertension 04/26 Overview: History: 04/22/2019: AVR Assessment: Requiring NTG infusion postop Plan: Titrate to maintain MAPs 65-75. Last Assessment & Plan: Home meds: losartan 50 - was on losartan-hctz prior to December admission stable PLAN: - hold in setting of ?GI bleed Depression 12/23/2018 Last Assessment & Plan: No suicidal or homicidal ideation. Stable. Continue with Citalopram documented as of this encounter (statuses as of 03/15/2022) [facility]07-29-2020 History of Past illness Narrative* Problem Noted Date Resolved Date Other pancytopenia 01/01/2020 03/27/2020 Transition of care performed with sharing of clinical summary 04/30/2019 03/27/2020 Overview: Indication for Surgery: Prosthetic aortic valve endocarditis Preop LVEF: 75% RVF: Normal Postop LVEF: Normal RVF: Normal Cath: mild non obsx CAD Cards: [facility] EKG: NSR w/ 1st degree Important/Relevant PMH/PSH: 73F from [facility] with GERD, depression, HTN, gastric bypass, PUD with recent GIB, nephrolithiasis, s/p AVR 2002 admitted with prosthetic valve endocarditis c/b severe AI, posterior root abscess, Parkinsons, CKD, overactive bladder Preoperative Hospital Course Admitted 04/10 with severe aortic insufficiency related to endocarditis Airway Difficulty: Grade I - easy Pacing wires: No. A/V pulled 04/30 Chronological list of Surgeries and Major Events 04/22/2019: Redo AVR, MVr_ 04/29/2019: PPM placement A/P of Major Active ICU Problems Cardiac: EP following for pacer dependency with ventricular rate <30 underneath. Continue DDD 80, mA 10, 5. Formal echo 04/26 showed EF 75%, RV normal. NPO, plan for PPM today. Renal:CKD-- SrCr 0.89, downtrending. Avoid nephrotoxic agents, trend fluid balance and electrolytes. 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 Continue ceftriaxone. Transferred to floor 04/29/19 To do or to watch: Access: Right arm PICC placed 04/30. - POD#7. No tubes/wires. AV paced. On room air. - s/p Redo AVR, MVr for IE: Surg path reviewed. Bacterial PCR + Streptococcus mutans. ID following. PICC placed 04/30. CoPat started. Continue Ceftriaxone through 06/03. Post-op echo completed 04/26: EF 75%, trace Mr, trivial-small pericardial effusion. - s/p PPM: Device check completed 04/30. - FVO: Up 3.7kg. Continue lasix - Dispo: 73 yo female from [place], [place]. Daughter can help. SW following. PT/OT rec home PT/OT; HHC for IV antibiotics. Face-to face ordered. Should be ready for dc when accepting facility found. [facility] f/u scheduled. [facility] OPD f/u requested. Discharge Planning: Anticipated Discharge Date: 05/01/2019 if HHC arranged. Barriers to Discharge: Other: accepting home care agency and - In Process Care Management Discharge Needs: Needs Prior to Discharge: Accepting Facility;IV Antibiotics Discharge planning issues 04/30/20192019 Overview: 73 yo female from [place], [place]. Daughter can help. SW following. PT/OT rec home PT/OT; HHC for IV antibiotics. Face-to face ordered. Should be ready for dc when accepting facility found. Thrombocytopenia 04/24/2019 04/26/2019 On mechanically assisted ventilation 04/22/2019 04/23/2019 Overview: History: Post op cardiac surgery requiring elective intubation Assessment: Grade I airway Plan: WTE Post-operative pain 04/22/2019 05/01/2019 Overview: History: 04/22/2019: AVR Assessment: Pain control adequate Plan: Continue scheduled Tylenol and prn oxycodone and tramadol. Preop testing 04/19/2019 04/30/2019 Overview: Date of Consult: 04/12 Type of surgery: Redo AVR/root +/- MVr Date preop tests completed:April 19, 2019 Waiting on: Date Surgeon reviewed Patient: 04/18 Patient work up completed: Waiting on: Date of decision by Surgeon: April 19, 2019 Deemed candidate: Yes Date of surgery: 04/22 Reasons for delay: na [facility] and [facility] PRE-OP CHECKLIST Surgeon: Dr. Forrest Rios Informed Consent Completed: pending STS Score: RISK SCORES Procedure: Isolated AVR CALCULATE Risk of Mortality: 4.605% Renal Failure: 3.404% Permanent Stroke: 2.380% Prolonged Ventilation: 22.071% DSW Infection: 0.035% Reoperation: 7.729% Morbidity or Mortality: 27.681% Short Length of Stay: 12.366% Long Length of Stay: 20.018% CAD: No Is intended procedure a CABG: No - H & P completed: Yes PA/LAT: Completed CT: Completed MRI: N/A LE US: N/A Cath: Yes - reviewed: Yes EKG: Completed Is patient on Amiodarone? Yes Echo:Completed EF %: 70 PI's: N/A Carotid: Completed Mapping: N/A Dental: Completed PFT's: Completed CBC, Coags, BMP, Mg, Phos Recent Labs 04/19/19 0507 04/18/19 0800 04/18/19 0455 04/17/19 0511 WBC 7.49 8.34 7.77 7.81 HB 7.9* 8.2* 7.3* 8.4* HCT 24.7* 25.7* 23.6* 26.5* PLT 144* 151 137* 155 NA 135* -- 134* 134* K 4.5 -- 4.4 4.4 CHLOR 103 -- 102 102 CO2 20* -- 23 22 BUN 37* -- 34* 27* CREAT 1.05* -- 1.03* 1.01* GLUC 83 -- 80 77 CA 8.2* -- 8.3* 8.2* MG 2.0 -- 2.0 1.9 UA: Normal HCG:N/A ABO/ABO Confirmed: Yes Blood ordered: Yes POS ABS 4units Willing to accept blood: Yes SA Swab: Yes - results: Pending Last Dose of Anticoagulation: none Op Note: Yes with Dr. Rios Pacemaker Check: No Implants: no Consults: ID, GI DM: No Cardiac Surgical prep: Yes SIGNATURE: Myrna Car RN LABOR RELATIONS ANALYST.CONFLICTS ANALYST DATE of SERVICE: 04/19/2019 TIME of SERVICE: 11:16 AM CHECKED BY: Moderate protein-calorie malnutrition 04/12/2019 10/02/2020 Overview: History: Post-op problem. Albumin 2.9. Noted on post-op nutrition screen. Assessment: 75% of meals consumed per I/O. Plan: Follow nutrition recs. Last Assessment & Plan: - nutrition referral Parkinson's disease 03/04/2019 06/11/2019 Overview: History: Takes Sinement at home Assessment: Stable postop Plan: Resume home regimen. Last Assessment & Plan: Assessment: on Sinemet PLAN: - cont home meds Acute kidney injury 03/04/2019 03/06/2019 Last Assessment & Plan: Assessment: - noted to have HILARIO at OSH with Cr of 1.31 on presentation, improved with fluids - likely related to blood loss RESOLVED PLAN: - monitor - avoid nephrotoxins - renally dose meds Elevated troponin 12/06/2018 12/23/2018 Last Assessment & Plan: No chest pain. EKG - NSR, LVH, LAD Plan: repeat EKG and troponin Trend troponin if remains elevated here GI bleed 12/05/2018 12/23/2018 Last Assessment & Plan: Acute blood loss anemia likely from GI bleed. EGD, colonoscopy - no source of bleeding identify. CT angio Abd aorta + Iliofemoral: Enhancing polypoid lesion within the 1st segment of the duodenum concerning for slowly bleeding mass. Plan: type and screen Blood transfusion consent was taken Monitor CBC q8h for now Transfuse if Hb <7 GI consult in am Continue with PPI bid Hold ASA and other NSAID 12/[address] Bonilla's team for transgastric endoscopy + possible resection of remnant/dudenal first part if needed requested cardiology input due to severe as appreciate their input 12/19 OR on 12/21 npo at 1 am on 12/21 12/21 100 ml of periop bleed found a bleeding du and clipped saw in recovery room groggy coming out of anesthesia 2 hours procedure weaned ot 50% vm in hte theatre and brought to pacu on 2 liters out ot floor in an hour ODELL (iron deficiency anemia) 12/05/2018 Last Assessment & Plan: Assessment: most recent labs show normal H/H, but does take Ferrous sulfate Postoperative hypertension 04/26 Overview: History: 04/22/2019: AVR Assessment: Requiring NTG infusion postop Plan: Titrate to maintain MAPs 65-75. Last Assessment & Plan: Home meds: losartan 50 - was on losartan-hctz prior to December admission stable PLAN: - hold in setting of ?GI bleed Depression 12/23/2018 Last Assessment & Plan: No suicidal or homicidal ideation. Stable. Continue with Citalopram documented as of this encounter (statuses as of 03/22/2022) [facility]07-[facility]-2020 History of Past illness Narrative* Problem Noted Date Resolved Date Other pancytopenia 01/01/2020 03/27/2020 Transition of care performed with sharing of clinical summary 04/30/2019 03/27/2020 Overview: Indication for Surgery: Prosthetic aortic valve endocarditis Preop LVEF: 75% RVF: Normal Postop LVEF: Normal RVF: Normal Cath: mild non obsx CAD Cards: [facility] EKG: NSR w/ 1st degree Important/Relevant PMH/PSH: 73F from [facility] with GERD, depression, HTN, gastric bypass, PUD with recent GIB, nephrolithiasis, s/p AVR 2002 admitted with prosthetic valve endocarditis c/b severe AI, posterior root abscess, Parkinsons, CKD, overactive bladder Preoperative Hospital Course Admitted 04/10 with severe aortic insufficiency related to endocarditis Airway Difficulty: Grade I - easy Pacing wires: No. A/V pulled 04/30 Chronological list of Surgeries and Major Events 04/22/2019: Redo AVR, MVr_ 04/29/2019: PPM placement A/P of Major Active ICU Problems Cardiac: EP following for pacer dependency with ventricular rate <30 underneath. Continue DDD 80, mA 10, 5. Formal echo 04/26 showed EF 75%, RV normal. NPO, plan for PPM today. Renal:CKD-- SrCr 0.89, downtrending. Avoid nephrotoxic agents, trend fluid balance and electrolytes. 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 Continue ceftriaxone. Transferred to floor 04/29/19 To do or to watch: Access: Right arm PICC placed 04/30. - POD#7. No tubes/wires. AV paced. On room air. - s/p Redo AVR, MVr for IE: Surg path reviewed. Bacterial PCR + Streptococcus mutans. ID following. PICC placed 04/30. CoPat started. Continue Ceftriaxone through 06/03. Post-op echo completed 04/26: EF 75%, trace Mr, trivial-small pericardial effusion. - s/p PPM: Device check completed 04/30. - FVO: Up 3.7kg. Continue lasix - Dispo: 73 yo female from [place], [place]. Daughter can help. SW following. PT/OT rec home PT/OT; HHC for IV antibiotics. Face-to face ordered. Should be ready for dc when accepting facility found. [facility] f/u scheduled. [facility] OPD f/u requested. Discharge Planning: Anticipated Discharge Date: 05/01/2019 if HHC arranged. Barriers to Discharge: Other: accepting home care agency and - In Process Care Management Discharge Needs: Needs Prior to Discharge: Accepting Facility;IV Antibiotics Discharge planning issues 04/30/20192019 Overview: 73 yo female from [place], [place]. Daughter can help. SW following. PT/OT rec home PT/OT; HHC for IV antibiotics. Face-to face ordered. Should be ready for dc when accepting facility found. Thrombocytopenia 04/24/2019 04/26/2019 On mechanically assisted ventilation 04/22/2019 04/23/2019 Overview: History: Post op cardiac surgery requiring elective intubation Assessment: Grade I airway Plan: WTE Post-operative pain 04/22/2019 05/01/2019 Overview: History: 04/22/2019: AVR Assessment: Pain control adequate Plan: Continue scheduled Tylenol and prn oxycodone and tramadol. Preop testing 04/19/2019 04/30/2019 Overview: Date of Consult: 04/12 Type of surgery: Redo AVR/root +/- MVr Date preop tests completed:April 19, 2019 Waiting on: Date Surgeon reviewed Patient: 04/18 Patient work up completed: Waiting on: Date of decision by Surgeon: April 19, 2019 Deemed candidate: Yes Date of surgery: 04/22 Reasons for delay: na [facility] and [facility] PRE-OP CHECKLIST Surgeon: Dr. Forrest Rios Informed Consent Completed: pending STS Score: RISK SCORES Procedure: Isolated AVR CALCULATE Risk of Mortality: 4.605% Renal Failure: 3.404% Permanent Stroke: 2.380% Prolonged Ventilation: 22.071% DSW Infection: 0.035% Reoperation: 7.729% Morbidity or Mortality: 27.681% Short Length of Stay: 12.366% Long Length of Stay: 20.018% CAD: No Is intended procedure a CABG: No - H & P completed: Yes PA/LAT: Completed CT: Completed MRI: N/A LE US: N/A Cath: Yes - reviewed: Yes EKG: Completed Is patient on Amiodarone? Yes Echo:Completed EF %: 70 PI's: N/A Carotid: Completed Mapping: N/A Dental: Completed PFT's: Completed CBC, Coags, BMP, Mg, Phos Recent Labs 04/19/19 0507 04/18/19 0800 04/18/19 0455 04/17/19 0511 WBC 7.49 8.34 7.77 7.81 HB 7.9* 8.2* 7.3* 8.4* HCT 24.7* 25.7* 23.6* 26.5* PLT 144* 151 137* 155 NA 135* -- 134* 134* K 4.5 -- 4.4 4.4 CHLOR 103 -- 102 102 CO2 20* -- 23 22 BUN 37* -- 34* 27* CREAT 1.05* -- 1.03* 1.01* GLUC 83 -- 80 77 CA 8.2* -- 8.3* 8.2* MG 2.0 -- 2.0 1.9 UA: Normal HCG:N/A ABO/ABO Confirmed: Yes Blood ordered: Yes POS ABS 4units Willing to accept blood: Yes SA Swab: Yes - results: Pending Last Dose of Anticoagulation: none Op Note: Yes with Dr. Rios Pacemaker Check: No Implants: no Consults: ID, GI DM: No Cardiac Surgical prep: Yes SIGNATURE: Myrna Car RN LABOR RELATIONS ANALYST.CONFLICTS ANALYST DATE of SERVICE: 04/19/2019 TIME of SERVICE: 11:16 AM CHECKED BY: Moderate protein-calorie malnutrition 04/12/2019 10/02/2020 Overview: History: Post-op problem. Albumin 2.9. Noted on post-op nutrition screen. Assessment: 75% of meals consumed per I/O. Plan: Follow nutrition recs. Last Assessment & Plan: - nutrition referral Parkinson's disease 03/04/2019 06/11/2019 Overview: History: Takes Sinement at home Assessment: Stable postop Plan: Resume home regimen. Last Assessment & Plan: Assessment: on Sinemet PLAN: - cont home meds Acute kidney injury 03/04/2019 03/06/2019 Last Assessment & Plan: Assessment: - noted to have HILARIO at OSH with Cr of 1.31 on presentation, improved with fluids - likely related to blood loss RESOLVED PLAN: - monitor - avoid nephrotoxins - renally dose meds Elevated troponin 12/06/2018 12/23/2018 Last Assessment & Plan: No chest pain. EKG - NSR, LVH, LAD Plan: repeat EKG and troponin Trend troponin if remains elevated here GI bleed 12/05/2018 12/23/2018 Last Assessment & Plan: Acute blood loss anemia likely from GI bleed. EGD, colonoscopy - no source of bleeding identify. CT angio Abd aorta + Iliofemoral: Enhancing polypoid lesion within the 1st segment of the duodenum concerning for slowly bleeding mass. Plan: type and screen Blood transfusion consent was taken Monitor CBC q8h for now Transfuse if Hb <7 GI consult in am Continue with PPI bid Hold ASA and other NSAID 12/[address] Bonilla's team for transgastric endoscopy + possible resection of remnant/dudenal first part if needed requested cardiology input due to severe as appreciate their input 12/19 OR on 12/21 npo at 1 am on 12/21 12/21 100 ml of periop bleed found a bleeding du and clipped saw in recovery room groggy coming out of anesthesia 2 hours procedure weaned ot 50% vm in hte theatre and brought to pacu on 2 liters out ot floor in an hour ODELL (iron deficiency anemia) 12/05/2018 Last Assessment & Plan: Assessment: most recent labs show normal H/H, but does take Ferrous sulfate Postoperative hypertension 04/26 Overview: History: 04/22/2019: AVR Assessment: Requiring NTG infusion postop Plan: Titrate to maintain MAPs 65-75. Last Assessment & Plan: Home meds: losartan 50 - was on losartan-hctz prior to December admission stable PLAN: - hold in setting of ?GI bleed Depression 12/23/2018 Last Assessment & Plan: No suicidal or homicidal ideation. Stable. Continue with Citalopram documented as of this encounter (statuses as of 04/05/2022) [facility] Bronchitis- Primary Bronchitis, not specified as acute or chronic [facility] Diagnosis 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 Other vitamin B12 deficiency anemia [facility] Diagnosis Status post revision of total replacement of left knee- Primary [facility] Diagnosis Edema of knee- Primary Acute pain of left knee History of infection Personal history of unspecified infectious and parasitic disease [facility] Diagnosis Onset Date Resolution Status GI bleed acute [facility] Work Phone: Evaluation note* Diagnosis Other fatigue- Primary Dark stools Nonspecific abnormal finding in stool contents History of GI bleed Personal history of other diseases of digestive system [facility] Diagnosis Anemia, unspecified type- Primary [facility] Diagnosis 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 Other vitamin B12 deficiency anemia [facility] Diagnosis Status post knee surgery- Primary Other postprocedural status Status post revision of total replacement of left knee [facility] Diagnosis 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 Other vitamin B12 deficiency anemia Iron 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 Copper deficiency Disorders of copper metabolism [facility] Diagnosis Dark stools- Primary Nonspecific abnormal finding in stool contents History of UTI Personal history of urinary (tract) infection Memory deficit Memory loss Stage 3 chronic kidney disease, unspecified whether stage 3a or 3b CKD (HCC) Medication monitoring encounter Encounter for therapeutic drug monitoring Hyperlipidemia, unspecified hyperlipidemia type [facility] Diagnosis 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 Other vitamin B12 deficiency anemia Iron 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 Other vitamin B12 deficiency anemia Copper deficiency Disorders of copper metabolism [facility] Diagnosis Function kidney decreased- Primary Unspecified disorder of kidney and ureter Leg swelling Swelling of limb [facility] Diagnosis Need for vaccination- Primary Need for prophylactic vaccination and inoculation against unspecified single disease [facility] Diagnosis 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 Other vitamin B12 deficiency anemia [facility] Diagnosis 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 Other vitamin B12 deficiency anemia [facility] Diagnosis Hyperlipidemia, mixed- Primary Mixed hyperlipidemia S/P AVR Heart valve replaced by other means Complete heart block (HCC) Atrioventricular block, complete History of endocarditis Personal history of other diseases of circulatory system Memory deficit Memory loss Stage 3 chronic kidney disease, unspecified whether stage 3a or 3b CKD (HCC) Pacemaker Cardiac pacemaker in situ [facility] Diagnosis 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 Other vitamin B12 deficiency anemia [facility] Diagnosis 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 Other vitamin B12 deficiency anemia [facility] Diagnosis Complete heart block (HCC)- Primary Atrioventricular block, complete History of endocarditis Personal history of other diseases of circulatory system [facility] Diagnosis 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 Other vitamin B12 deficiency anemia [facility] Diagnosis Iron 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- Primary Copper deficiency Disorders of copper metabolism [facility] Diagnosis Hyperlipidemia, mixed Mixed hyperlipidemia S/P AVR Heart valve replaced by other means Complete heart block (HCC) Atrioventricular block, complete History of endocarditis Personal history of other diseases of circulatory system Memory deficit Memory loss Stage 3 chronic kidney disease, unspecified whether stage 3a or 3b CKD (HCC) [facility] Diagnosis Leg swelling Swelling of limb [facility] Diagnosis 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 Other vitamin B12 deficiency anemia [facility] Diagnosis Leg swelling Swelling of limb [facility] Diagnosis 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 Other vitamin B12 deficiency anemia [facility] Diagnosis Status post revision of total replacement of left knee- Primary [facility] Diagnosis Left knee pain, unspecified chronicity- Primary Status post revision of total replacement of left knee [facility] Diagnosis 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 Other vitamin B12 deficiency anemia Iron 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 [facility] Diagnosis Status post knee surgery Other postprocedural status [facility] Diagnosis Infection and inflammatory reaction due to internal left knee prosthesis, subsequent encounter [facility] Diagnosis Status post revision of total replacement of left knee [facility] noteNo assessment information availableWTri[facility] Work Phone: [facility]* Diagnosis 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 Other vitamin B12 deficiency anemia Iron 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 [facility] Diagnosis Medicare annual wellness visit, subsequent- Primary Routine general medical examination at a health care facility Gastroesophageal reflux disease without esophagitis Esophageal reflux Essential hypertension Unspecified essential hypertension Recurrent major depressive disorder, in partial remission (HCC) Overactive bladder Hypertonicity of bladder Coronary artery disease involving [place] coronary artery of [place] heart without angina pectoris Screening for osteoporosis Special screening for osteoporosis Osteoporosis, unspecified osteoporosis type, unspecified pathological fracture presence Tendinitis Enthesopathy of unspecified site Restless legs syndrome Restless legs syndrome (RLS) GI bleed- Primary Hemorrhage of gastrointestinal tract, unspecified Severe protein-calorie malnutrition (HCC) Other severe protein-calorie malnutrition Anemia due to acute blood loss Acute posthemorrhagic anemia Calculus of kidney Depression, unspecified depression type Elevated troponin Other abnormal blood chemistry Gastrointestinal hemorrhage with melena Essential hypertension Unspecified essential hypertension Restless legs syndrome Restless legs syndrome (RLS) S/P AVR Heart valve replaced by other means Preop examination Preoperative examination, unspecified Acute post-operative pain Calculus of kidney Depression Depressive disorder, not elsewhere classified Restless legs syndrome Restless legs syndrome (RLS) Elevated troponin Other abnormal blood chemistry Anemia due to acute blood loss- Primary Acute posthemorrhagic anemia Moderate protein-calorie malnutrition (HCC) Malnutrition of moderate degree Gastrointestinal hemorrhage associated with duodenal ulcer S/P AVR Heart valve replaced by other means Acute kidney injury (HCC) Acute kidney failure, unspecified Calculus of kidney- Primary Pre-operative examination Preoperative examination, unspecified Restless legs syndrome Restless legs syndrome (RLS) Coronary artery disease involving [place] coronary artery of [place] heart without angina pectoris Nonrheumatic mitral valve regurgitation Nonrheumatic aortic valve insufficiency Aortic valve disorders Complete heart block (HCC) Atrioventricular block, complete Gastroesophageal reflux disease without esophagitis Esophageal reflux Gastrointestinal hemorrhage associated with duodenal ulcer Overactive bladder Hypertonicity of bladder Stage 3 chronic kidney disease (HCC) Iron deficiency anemia, unspecified iron deficiency anemia type Anxiety Anxiety state, unspecified Memory deficit Memory loss S/P AVR- Primary Heart valve replaced by other means Infection and inflammatory reaction due to internal left knee prosthesis, initial encounter ([facility]) Nonrheumatic aortic valve insufficiency Aortic valve disorders Nonrheumatic mitral valve regurgitation Complete heart block (HCC) Atrioventricular block, complete Coronary artery disease involving [place] coronary artery of [place] heart without angina pectoris History of endocarditis Personal history of other diseases of circulatory system Restless legs syndrome Restless legs syndrome (RLS) Gastroesophageal reflux disease without esophagitis Esophageal reflux Gastrointestinal hemorrhage associated with duodenal ulcer Iron malabsorption Other specified intestinal malabsorption Overactive bladder Hypertonicity of bladder Stage 3 chronic kidney disease, unspecified whether stage 3a or 3b CKD ([facility]) Megaloblastic anemia due to vitamin B12 deficiency Other vitamin B12 deficiency anemia Iron 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 Recurrent major depression in partial remission ([facility]) Major depressive disorder, recurrent episode, in partial or unspecified remission Anxiety Anxiety state, unspecified Memory deficit Memory loss History of UTI Personal history of urinary (tract) infection Pre-operative examination- Primary Preoperative examination, unspecified Infection and inflammatory reaction due to internal left knee prosthesis, initial encounter ([facility]) Restless legs syndrome Restless legs syndrome (RLS) Complete heart block (HCC) Atrioventricular block, complete Coronary artery disease involving [place] coronary artery of [place] heart without angina pectoris History of endocarditis Personal history of other diseases of circulatory system Nonrheumatic aortic valve insufficiency Aortic valve disorders Nonrheumatic mitral valve regurgitation Gastroesophageal reflux disease without esophagitis Esophageal reflux Gastrointestinal hemorrhage associated with duodenal ulcer Iron malabsorption Other specified intestinal malabsorption Overactive bladder Hypertonicity of bladder Stage 3 chronic kidney disease, unspecified whether stage 3a or 3b CKD (HCC) Megaloblastic anemia due to vitamin B12 deficiency Other vitamin B12 deficiency anemia Recurrent major depression in partial remission (HCC) Major depressive disorder, recurrent episode, in partial or unspecified remission Anxiety Anxiety state, unspecified Memory deficit Memory loss Status post revision of total replacement of left knee [facility] Diagnosis Medicare annual wellness visit, subsequent- Primary Routine general medical examination at a health care facility Gastroesophageal reflux disease without esophagitis Esophageal reflux Essential hypertension Unspecified essential hypertension Recurrent major depressive disorder, in partial remission (HCC) Overactive bladder Hypertonicity of bladder Coronary artery disease involving [place] coronary artery of [place] heart without angina pectoris Screening for osteoporosis Special screening for osteoporosis Osteoporosis, unspecified osteoporosis type, unspecified pathological fracture presence Tendinitis Enthesopathy of unspecified site Restless legs syndrome Restless legs syndrome (RLS) GI bleed- Primary Hemorrhage of gastrointestinal tract, unspecified Severe protein-calorie malnutrition (HCC) Other severe protein-calorie malnutrition Anemia due to acute blood loss Acute posthemorrhagic anemia Calculus of kidney Depression, unspecified depression type Elevated troponin Other abnormal blood chemistry Gastrointestinal hemorrhage with melena Essential hypertension Unspecified essential hypertension Restless legs syndrome Restless legs syndrome (RLS) S/P AVR Heart valve replaced by other means Preop examination Preoperative examination, unspecified Acute post-operative pain Calculus of kidney Depression Depressive disorder, not elsewhere classified Restless legs syndrome Restless legs syndrome (RLS) Elevated troponin Other abnormal blood chemistry Anemia due to acute blood loss- Primary Acute posthemorrhagic anemia Moderate protein-calorie malnutrition (HCC) Malnutrition of moderate degree Gastrointestinal hemorrhage associated with duodenal ulcer S/P AVR Heart valve replaced by other means Acute kidney injury (HCC) Acute kidney failure, unspecified Acute cystitis with hematuria Acute cystitis Calculus of kidney- Primary Pre-operative examination Preoperative examination, unspecified Restless legs syndrome Restless legs syndrome (RLS) Coronary artery disease involving [place] coronary artery of [place] heart without angina pectoris Nonrheumatic mitral valve regurgitation Nonrheumatic aortic valve insufficiency Aortic valve disorders Complete heart block (HCC) Atrioventricular block, complete Gastroesophageal reflux disease without esophagitis Esophageal reflux Gastrointestinal hemorrhage associated with duodenal ulcer Overactive bladder Hypertonicity of bladder Stage 3 chronic kidney disease (HCC) Iron deficiency anemia, unspecified iron deficiency anemia type Anxiety Anxiety state, unspecified Memory deficit Memory loss S/P AVR- Primary Heart valve replaced by other means Infection and inflammatory reaction due to internal left knee prosthesis, initial encounter ([facility]) Nonrheumatic aortic valve insufficiency Aortic valve disorders Nonrheumatic mitral valve regurgitation Complete heart block (HCC) Atrioventricular block, complete Coronary artery disease involving [place] coronary artery of [place] heart without angina pectoris History of endocarditis Personal history of other diseases of circulatory system Restless legs syndrome Restless legs syndrome (RLS) Gastroesophageal reflux disease without esophagitis Esophageal reflux Gastrointestinal hemorrhage associated with duodenal ulcer Iron malabsorption Other specified intestinal malabsorption Overactive bladder Hypertonicity of bladder Stage 3 chronic kidney disease, unspecified whether stage 3a or 3b CKD (HCC) Megaloblastic anemia due to vitamin B12 deficiency Other vitamin B12 deficiency anemia Iron 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 Recurrent major depression in partial remission (HCC) Major depressive disorder, recurrent episode, in partial or unspecified remission Anxiety Anxiety state, unspecified Memory deficit Memory loss History of UTI Personal history of urinary (tract) infection Pre-operative examination- Primary Preoperative examination, unspecified Infection and inflammatory reaction due to internal left knee prosthesis, initial encounter ([facility]) Restless legs syndrome Restless legs syndrome (RLS) Complete heart block (HCC) Atrioventricular block, complete Coronary artery disease involving [place] coronary artery of [place] heart without angina pectoris History of endocarditis Personal history of other diseases of circulatory system Nonrheumatic aortic valve insufficiency Aortic valve disorders Nonrheumatic mitral valve regurgitation Gastroesophageal reflux disease without esophagitis Esophageal reflux Gastrointestinal hemorrhage associated with duodenal ulcer Iron malabsorption Other specified intestinal malabsorption Overactive bladder Hypertonicity of bladder Stage 3 chronic kidney disease, unspecified whether stage 3a or 3b CKD (HCC) Megaloblastic anemia due to vitamin B12 deficiency Other vitamin B12 deficiency anemia Recurrent major depression in partial remission (HCC) Major depressive disorder, recurrent episode, in partial or unspecified remission Anxiety Anxiety state, unspecified Memory deficit Memory loss Acute pain of left knee Edema of knee Status post fall Unspecified fall [facility] Diagnosis Medicare annual wellness visit, subsequent- Primary Routine general medical examination at a health care facility Gastroesophageal reflux disease without esophagitis Esophageal reflux Essential hypertension Unspecified essential hypertension Recurrent major depressive disorder, in partial remission (HCC) Overactive bladder Hypertonicity of bladder Coronary artery disease involving [place] coronary artery of [place] heart without angina pectoris Screening for osteoporosis Special screening for osteoporosis Osteoporosis, unspecified osteoporosis type, unspecified pathological fracture presence Tendinitis Enthesopathy of unspecified site Restless legs syndrome Restless legs syndrome (RLS) GI bleed- Primary Hemorrhage of gastrointestinal tract, unspecified Severe protein-calorie malnutrition (HCC) Other severe protein-calorie malnutrition Anemia due to acute blood loss Acute posthemorrhagic anemia Calculus of kidney Depression, unspecified depression type Elevated troponin Other abnormal blood chemistry Gastrointestinal hemorrhage with melena Essential hypertension Unspecified essential hypertension Restless legs syndrome Restless legs syndrome (RLS) S/P AVR Heart valve replaced by other means Preop examination Preoperative examination, unspecified Acute post-operative pain Calculus of kidney Depression Depressive disorder, not elsewhere classified Restless legs syndrome Restless legs syndrome (RLS) Elevated troponin Other abnormal blood chemistry Anemia due to acute blood loss- Primary Acute posthemorrhagic anemia Moderate protein-calorie malnutrition (HCC) Malnutrition of moderate degree Gastrointestinal hemorrhage associated with duodenal ulcer S/P AVR Heart valve replaced by other means Acute kidney injury (HCC) Acute kidney failure, unspecified Acute cystitis with hematuria Acute cystitis Calculus of kidney- Primary Pre-operative examination Preoperative examination, unspecified Restless legs syndrome Restless legs syndrome (RLS) Coronary artery disease involving [place] coronary artery of [place] heart without angina pectoris Nonrheumatic mitral valve regurgitation Nonrheumatic aortic valve insufficiency Aortic valve disorders Complete heart block (HCC) Atrioventricular block, complete Gastroesophageal reflux disease without esophagitis Esophageal reflux Gastrointestinal hemorrhage associated with duodenal ulcer Overactive bladder Hypertonicity of bladder Stage 3 chronic kidney disease (HCC) Iron deficiency anemia, unspecified iron deficiency anemia type Anxiety Anxiety state, unspecified Memory deficit Memory loss S/P AVR- Primary Heart valve replaced by other means Infection and inflammatory reaction due to internal left knee prosthesis, initial encounter (HCC) Nonrheumatic aortic valve insufficiency Aortic valve disorders Nonrheumatic mitral valve regurgitation Complete heart block (HCC) Atrioventricular block, complete Coronary artery disease involving [place] coronary artery of [place] heart without angina pectoris History of endocarditis Personal history of other diseases of circulatory system Restless legs syndrome Restless legs syndrome (RLS) Gastroesophageal reflux disease without esophagitis Esophageal reflux Gastrointestinal hemorrhage associated with duodenal ulcer Iron malabsorption Other specified intestinal malabsorption Overactive bladder Hypertonicity of bladder Stage 3 chronic kidney disease, unspecified whether stage 3a or 3b CKD (HCC) Megaloblastic anemia due to vitamin B12 deficiency Other vitamin B12 deficiency anemia Iron 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 Recurrent major depression in partial remission (HCC) Major depressive disorder, recurrent episode, in partial or unspecified remission Anxiety Anxiety state, unspecified Memory deficit Memory loss History of UTI Personal history of urinary (tract) infection Infection and inflammatory reaction due to internal left knee prosthesis, initial encounter ([facility]) Pre-operative examination- Primary Preoperative examination, unspecified Infection and inflammatory reaction due to internal left knee prosthesis, initial encounter ([facility]) Restless legs syndrome Restless legs syndrome (RLS) Complete heart block ([facility]) Atrioventricular block, complete Coronary artery disease involving [place] coronary artery of [place] heart without angina pectoris History of endocarditis Personal history of other diseases of circulatory system Nonrheumatic aortic valve insufficiency Aortic valve disorders Nonrheumatic mitral valve regurgitation Gastroesophageal reflux disease without esophagitis Esophageal reflux Gastrointestinal hemorrhage associated with duodenal ulcer Iron malabsorption Other specified intestinal malabsorption Overactive bladder Hypertonicity of bladder Stage 3 chronic kidney disease, unspecified whether stage 3a or 3b CKD (HCC) Megaloblastic anemia due to vitamin B12 deficiency Other vitamin B12 deficiency anemia Recurrent major depression in partial remission ([facility]) Major depressive disorder, recurrent episode, in partial or unspecified remission Anxiety Anxiety state, unspecified Memory deficit [facility] Medicare annual wellness visit, subsequent- Primary Routine general medical examination at a health care facility Gastroesophageal reflux disease without esophagitis Esophageal reflux Essential hypertension Unspecified essential hypertension Recurrent major depressive disorder, in partial remission ([facility]) Overactive bladder Hypertonicity of bladder Coronary artery disease involving [place] coronary artery of [place] heart without angina pectoris Screening for osteoporosis Special screening for osteoporosis Osteoporosis, unspecified osteoporosis type, unspecified pathological fracture presence Tendinitis Enthesopathy of unspecified site Restless legs syndrome Restless legs syndrome (RLS) GI bleed- Primary Hemorrhage of gastrointestinal tract, unspecified Severe protein-calorie malnutrition (HCC) Other severe protein-calorie malnutrition Anemia due to acute blood loss Acute posthemorrhagic anemia Calculus of kidney Depression, unspecified depression type Elevated troponin Other abnormal blood chemistry Gastrointestinal hemorrhage with melena Essential hypertension Unspecified essential hypertension Restless legs syndrome Restless legs syndrome (RLS) S/P AVR Heart valve replaced by other means Preop examination Preoperative examination, unspecified Acute post-operative pain Calculus of kidney Depression Depressive disorder, not elsewhere classified Restless legs syndrome Restless legs syndrome (RLS) Elevated troponin Other abnormal blood chemistry Anemia due to acute blood loss- Primary Acute posthemorrhagic anemia Moderate protein-calorie malnutrition (HCC) Malnutrition of moderate degree Gastrointestinal hemorrhage associated with duodenal ulcer S/P AVR Heart valve replaced by other means Acute kidney injury (HCC) Acute kidney failure, unspecified Acute cystitis with hematuria Acute cystitis Calculus of kidney- Primary Pre-operative examination Preoperative examination, unspecified Restless legs syndrome Restless legs syndrome (RLS) Coronary artery disease involving [place] coronary artery of [place] heart without angina pectoris Nonrheumatic mitral valve regurgitation Nonrheumatic aortic valve insufficiency Aortic valve disorders Complete heart block (HCC) Atrioventricular block, complete Gastroesophageal reflux disease without esophagitis Esophageal reflux Gastrointestinal hemorrhage associated with duodenal ulcer Overactive bladder Hypertonicity of bladder Stage 3 chronic kidney disease (HCC) Iron deficiency anemia, unspecified iron deficiency anemia type Anxiety Anxiety state, unspecified Memory deficit Memory loss Left knee pain, unspecified chronicity S/P AVR- Primary Heart valve replaced by other means Infection and inflammatory reaction due to internal left knee prosthesis, initial encounter ([facility]) Nonrheumatic aortic valve insufficiency Aortic valve disorders Nonrheumatic mitral valve regurgitation Complete heart block (HCC) Atrioventricular block, complete Coronary artery disease involving [place] coronary artery of [place] heart without angina pectoris History of endocarditis Personal history of other diseases of circulatory system Restless legs syndrome Restless legs syndrome (RLS) Gastroesophageal reflux disease without esophagitis Esophageal reflux Gastrointestinal hemorrhage associated with duodenal ulcer Iron malabsorption Other specified intestinal malabsorption Overactive bladder Hypertonicity of bladder Stage 3 chronic kidney disease, unspecified whether stage 3a or 3b CKD (HCC) Megaloblastic anemia due to vitamin B12 deficiency Other vitamin B12 deficiency anemia Iron 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 Recurrent major depression in partial remission (HCC) Major depressive disorder, recurrent episode, in partial or unspecified remission Anxiety Anxiety state, unspecified Memory deficit Memory loss History of UTI Personal history of urinary (tract) infection Pre-operative examination- Primary Preoperative examination, unspecified Infection and inflammatory reaction due to internal left knee prosthesis, initial encounter ([facility]) Restless legs syndrome Restless legs syndrome (RLS) Complete heart block (HCC) Atrioventricular block, complete Coronary artery disease involving [place] coronary artery of [place] heart without angina pectoris History of endocarditis Personal history of other diseases of circulatory system Nonrheumatic aortic valve insufficiency Aortic valve disorders Nonrheumatic mitral valve regurgitation Gastroesophageal reflux disease without esophagitis Esophageal reflux Gastrointestinal hemorrhage associated with duodenal ulcer Iron malabsorption Other specified intestinal malabsorption Overactive bladder Hypertonicity of bladder Stage 3 chronic kidney disease, unspecified whether stage 3a or 3b CKD (HCC) Megaloblastic anemia due to vitamin B12 deficiency Other vitamin B12 deficiency anemia Recurrent major depression in partial remission (HCC) Major depressive disorder, recurrent episode, in partial or unspecified remission Anxiety Anxiety state, unspecified Memory deficit [facility] loss [facility] Diagnosis Medicare annual wellness visit, subsequent- Primary Routine general medical examination at a health care facility Gastroesophageal reflux disease without esophagitis Esophageal reflux Essential hypertension Unspecified essential hypertension Recurrent major depressive disorder, in partial remission (HCC) Overactive bladder Hypertonicity of bladder Coronary artery disease involving [place] coronary artery of [place] heart without angina pectoris Screening for osteoporosis Special screening for osteoporosis Osteoporosis, unspecified osteoporosis type, unspecified pathological fracture presence Tendinitis Enthesopathy of unspecified site Restless legs syndrome Restless legs syndrome (RLS) GI bleed- Primary Hemorrhage of gastrointestinal tract, unspecified Severe protein-calorie malnutrition (HCC) Other severe protein-calorie malnutrition Anemia due to acute blood loss Acute posthemorrhagic anemia Calculus of kidney Depression, unspecified depression type Elevated troponin Other abnormal blood chemistry Gastrointestinal hemorrhage with melena Essential hypertension Unspecified essential hypertension Restless legs syndrome Restless legs syndrome (RLS) S/P AVR Heart valve replaced by other means Preop examination Preoperative examination, unspecified Acute post-operative pain Calculus of kidney Depression Depressive disorder, not elsewhere classified Restless legs syndrome Restless legs syndrome (RLS) Elevated troponin Other abnormal blood chemistry Anemia due to acute blood loss- Primary Acute posthemorrhagic anemia Moderate protein-calorie malnutrition (HCC) Malnutrition of moderate degree Gastrointestinal hemorrhage associated with duodenal ulcer S/P AVR Heart valve replaced by other means Acute kidney injury (HCC) Acute kidney failure, unspecified Calculus of kidney- Primary Pre-operative examination Preoperative examination, unspecified Restless legs syndrome Restless legs syndrome (RLS) Coronary artery disease involving [place] coronary artery of [place] heart without angina pectoris Nonrheumatic mitral valve regurgitation Nonrheumatic aortic valve insufficiency Aortic valve disorders Complete heart block (HCC) Atrioventricular block, complete Gastroesophageal reflux disease without esophagitis Esophageal reflux Gastrointestinal hemorrhage associated with duodenal ulcer Overactive bladder Hypertonicity of bladder Stage 3 chronic kidney disease (HCC) Iron deficiency anemia, unspecified iron deficiency anemia type Anxiety Anxiety state, unspecified Memory deficit Memory loss S/P AVR- Primary Heart valve replaced by other means Infection and inflammatory reaction due to internal left knee prosthesis, initial encounter ([facility]) Nonrheumatic aortic valve insufficiency Aortic valve disorders Nonrheumatic mitral valve regurgitation Complete heart block (HCC) Atrioventricular block, complete Coronary artery disease involving [place] coronary artery of [place] heart without angina pectoris History of endocarditis Personal history of other diseases of circulatory system Restless legs syndrome Restless legs syndrome (RLS) Gastroesophageal reflux disease without esophagitis Esophageal reflux Gastrointestinal hemorrhage associated with duodenal ulcer Iron malabsorption Other specified intestinal malabsorption Overactive bladder Hypertonicity of bladder Stage 3 chronic kidney disease, unspecified whether stage 3a or 3b CKD ([facility]) Megaloblastic anemia due to vitamin B12 deficiency Other vitamin B12 deficiency anemia Iron 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 Recurrent major depression in partial remission ([facility]) Major depressive disorder, recurrent episode, in partial or unspecified remission Anxiety Anxiety state, unspecified Memory deficit Memory loss History of UTI Personal history of urinary (tract) infection Pre-operative examination- Primary Preoperative examination, unspecified Infection and inflammatory reaction due to internal left knee prosthesis, initial encounter ([facility]) Restless legs syndrome Restless legs syndrome (RLS) Complete heart block (HCC) Atrioventricular block, complete Coronary artery disease involving [place] coronary artery of [place] heart without angina pectoris History of endocarditis Personal history of other diseases of circulatory system Nonrheumatic aortic valve insufficiency Aortic valve disorders Nonrheumatic mitral valve regurgitation Gastroesophageal reflux disease without esophagitis Esophageal reflux Gastrointestinal hemorrhage associated with duodenal ulcer Iron malabsorption Other specified intestinal malabsorption Overactive bladder Hypertonicity of bladder Stage 3 chronic kidney disease, unspecified whether stage 3a or 3b CKD ([facility]) Megaloblastic anemia due to vitamin B12 deficiency Other vitamin B12 deficiency anemia Recurrent major depression in partial remission ([facility]) Major depressive disorder, recurrent episode, in partial or unspecified remission Anxiety Anxiety state, unspecified Memory deficit Memory loss Anemia due to stage 3b chronic kidney disease (HCC) ([facility])- Primary History of gastric bypass Bariatric surgery status Iron malabsorption Other specified intestinal malabsorption [facility] Diagnosis Medicare annual wellness visit, subsequent- Primary Routine general medical examination at a health care facility Gastroesophageal reflux disease without esophagitis Esophageal reflux Essential hypertension Unspecified essential hypertension Recurrent major depressive disorder, in partial remission (HCC) Overactive bladder Hypertonicity of bladder Coronary artery disease involving [place] coronary artery of [place] heart without angina pectoris Screening for osteoporosis Special screening for osteoporosis Osteoporosis, unspecified osteoporosis type, unspecified pathological fracture presence Tendinitis Enthesopathy of unspecified site Restless legs syndrome Restless legs syndrome (RLS) GI bleed- Primary Hemorrhage of gastrointestinal tract, unspecified Severe protein-calorie malnutrition (HCC) Other severe protein-calorie malnutrition Anemia due to acute blood loss Acute posthemorrhagic anemia Calculus of kidney Depression, unspecified depression type Elevated troponin Other abnormal blood chemistry Gastrointestinal hemorrhage with melena Essential hypertension Unspecified essential hypertension Restless legs syndrome Restless legs syndrome (RLS) S/P AVR Heart valve replaced by other means Preop examination Preoperative examination, unspecified Acute post-operative pain Calculus of kidney Depression Depressive disorder, not elsewhere classified Restless legs syndrome Restless legs syndrome (RLS) Elevated troponin Other abnormal blood chemistry Anemia due to acute blood loss- Primary Acute posthemorrhagic anemia Moderate protein-calorie malnutrition (HCC) Malnutrition of moderate degree Gastrointestinal hemorrhage associated with duodenal ulcer S/P AVR Heart valve replaced by other means Acute kidney injury (HCC) Acute kidney failure, unspecified Calculus of kidney- Primary Pre-operative examination Preoperative examination, unspecified Restless legs syndrome Restless legs syndrome (RLS) Coronary artery disease involving [place] coronary artery of [place] heart without angina pectoris Nonrheumatic mitral valve regurgitation Nonrheumatic aortic valve insufficiency Aortic valve disorders Complete heart block (HCC) Atrioventricular block, complete Gastroesophageal reflux disease without esophagitis Esophageal reflux Gastrointestinal hemorrhage associated with duodenal ulcer Overactive bladder Hypertonicity of bladder Stage 3 chronic kidney disease (HCC) Iron deficiency anemia, unspecified iron deficiency anemia type Anxiety Anxiety state, unspecified Memory deficit Memory loss S/P AVR- Primary Heart valve replaced by other means Infection and inflammatory reaction due to internal left knee prosthesis, initial encounter (HCC) Nonrheumatic aortic valve insufficiency Aortic valve disorders Nonrheumatic mitral valve regurgitation Complete heart block (HCC) Atrioventricular block, complete Coronary artery disease involving [place] coronary artery of [place] heart without angina pectoris History of endocarditis Personal history of other diseases of circulatory system Restless legs syndrome Restless legs syndrome (RLS) Gastroesophageal reflux disease without esophagitis Esophageal reflux Gastrointestinal hemorrhage associated with duodenal ulcer Iron malabsorption Other specified intestinal malabsorption Overactive bladder Hypertonicity of bladder Stage 3 chronic kidney disease, unspecified whether stage 3a or 3b CKD (HCC) Megaloblastic anemia due to vitamin B12 deficiency Other vitamin B12 deficiency anemia Iron 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 Recurrent major depression in partial remission (HCC) Major depressive disorder, recurrent episode, in partial or unspecified remission Anxiety Anxiety state, unspecified Memory deficit Memory loss History of UTI Personal history of urinary (tract) infection Pre-operative examination- Primary Preoperative examination, unspecified Infection and inflammatory reaction due to internal left knee prosthesis, initial encounter ([facility]) Restless legs syndrome Restless legs syndrome (RLS) Complete heart block ([facility]) Atrioventricular block, complete Coronary artery disease involving [place] coronary artery of [place] heart without angina pectoris History of endocarditis Personal history of other diseases of circulatory system Nonrheumatic aortic valve insufficiency Aortic valve disorders Nonrheumatic mitral valve regurgitation Gastroesophageal reflux disease without esophagitis Esophageal reflux Gastrointestinal hemorrhage associated with duodenal ulcer Iron malabsorption Other specified intestinal malabsorption Overactive bladder Hypertonicity of bladder Stage 3 chronic kidney disease, unspecified whether stage 3a or 3b CKD (HCC) Megaloblastic anemia due to vitamin B12 deficiency Other vitamin B12 deficiency anemia Recurrent major depression in partial remission (HCC) Major depressive disorder, recurrent episode, in partial or unspecified remission Anxiety Anxiety state, unspecified Memory deficit Memory loss Anemia due to stage 3b chronic kidney disease (HCC) (HCC)- Primary History of gastric bypass Bariatric surgery status Iron malabsorption Other specified intestinal malabsorption [facility] Diagnosis Medicare annual wellness visit, subsequent- Primary Routine general medical examination at a health care facility Gastroesophageal reflux disease without esophagitis Esophageal reflux Essential hypertension Unspecified essential hypertension Recurrent major depressive disorder, in partial remission (HCC) Overactive bladder Hypertonicity of bladder Coronary artery disease involving [place] coronary artery of [place] heart without angina pectoris Screening for osteoporosis Special screening for osteoporosis Osteoporosis, unspecified osteoporosis type, unspecified pathological fracture presence Tendinitis Enthesopathy of unspecified site Restless legs syndrome Restless legs syndrome (RLS) GI bleed- Primary Hemorrhage of gastrointestinal tract, unspecified Severe protein-calorie malnutrition (HCC) Other severe protein-calorie malnutrition Anemia due to acute blood loss Acute posthemorrhagic anemia Calculus of kidney Depression, unspecified depression type Elevated troponin Other abnormal blood chemistry Gastrointestinal hemorrhage with melena Essential hypertension Unspecified essential hypertension Restless legs syndrome Restless legs syndrome (RLS) S/P AVR Heart valve replaced by other means Preop examination Preoperative examination, unspecified Acute post-operative pain Calculus of kidney Depression Depressive disorder, not elsewhere classified Restless legs syndrome Restless legs syndrome (RLS) Elevated troponin Other abnormal blood chemistry Anemia due to acute blood loss- Primary Acute posthemorrhagic anemia Moderate protein-calorie malnutrition (HCC) Malnutrition of moderate degree Gastrointestinal hemorrhage associated with duodenal ulcer S/P AVR Heart valve replaced by other means Acute kidney injury (HCC) Acute kidney failure, unspecified Calculus of kidney- Primary Pre-operative examination Preoperative examination, unspecified Restless legs syndrome Restless legs syndrome (RLS) Coronary artery disease involving [place] coronary artery of [place] heart without angina pectoris Nonrheumatic mitral valve regurgitation Nonrheumatic aortic valve insufficiency Aortic valve disorders Complete heart block (HCC) Atrioventricular block, complete Gastroesophageal reflux disease without esophagitis Esophageal reflux Gastrointestinal hemorrhage associated with duodenal ulcer Overactive bladder Hypertonicity of bladder Stage 3 chronic kidney disease (HCC) Iron deficiency anemia, unspecified iron deficiency anemia type Anxiety Anxiety state, unspecified Memory deficit Memory loss S/P AVR- Primary Heart valve replaced by other means Infection and inflammatory reaction due to internal left knee prosthesis, initial encounter ([facility]) Nonrheumatic aortic valve insufficiency Aortic valve disorders Nonrheumatic mitral valve regurgitation Complete heart block (HCC) Atrioventricular block, complete Coronary artery disease involving [place] coronary artery of [place] heart without angina pectoris History of endocarditis Personal history of other diseases of circulatory system Restless legs syndrome Restless legs syndrome (RLS) Gastroesophageal reflux disease without esophagitis Esophageal reflux Gastrointestinal hemorrhage associated with duodenal ulcer Iron malabsorption Other specified intestinal malabsorption Overactive bladder Hypertonicity of bladder Stage 3 chronic kidney disease, unspecified whether stage 3a or 3b CKD ([facility]) Megaloblastic anemia due to vitamin B12 deficiency Other vitamin B12 deficiency anemia Iron 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 Recurrent major depression in partial remission (HCC) Major depressive disorder, recurrent episode, in partial or unspecified remission Anxiety Anxiety state, unspecified Memory deficit Memory loss History of UTI Personal history of urinary (tract) infection Pre-operative examination- Primary Preoperative examination, unspecified Infection and inflammatory reaction due to internal left knee prosthesis, initial encounter ([facility]) Restless legs syndrome Restless legs syndrome (RLS) Complete heart block (HCC) Atrioventricular block, complete Coronary artery disease involving [place] coronary artery of [place] heart without angina pectoris History of endocarditis Personal history of other diseases of circulatory system Nonrheumatic aortic valve insufficiency Aortic valve disorders Nonrheumatic mitral valve regurgitation Gastroesophageal reflux disease without esophagitis Esophageal reflux Gastrointestinal hemorrhage associated with duodenal ulcer Iron malabsorption Other specified intestinal malabsorption Overactive bladder Hypertonicity of bladder Stage 3 chronic kidney disease, unspecified whether stage 3a or 3b CKD (HCC) Megaloblastic anemia due to vitamin B12 deficiency Other vitamin B12 deficiency anemia Recurrent major depression in partial remission (HCC) Major depressive disorder, recurrent episode, in partial or unspecified remission Anxiety Anxiety state, unspecified Memory deficit Memory loss Iron 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- Primary Anemia due to stage 3b chronic kidney disease (HCC) (HCC) History of gastric bypass Bariatric surgery status Iron malabsorption Other specified intestinal malabsorption [facility] Diagnosis Medicare annual wellness visit, subsequent- Primary Routine general medical examination at a health care facility Gastroesophageal reflux disease without esophagitis Esophageal reflux Essential hypertension Unspecified essential hypertension Recurrent major depressive disorder, in partial remission (HCC) Overactive bladder Hypertonicity of bladder Coronary artery disease involving [place] coronary artery of [place] heart without angina pectoris Screening for osteoporosis Special screening for osteoporosis Osteoporosis, unspecified osteoporosis type, unspecified pathological fracture presence Tendinitis Enthesopathy of unspecified site Restless legs syndrome Restless legs syndrome (RLS) GI bleed- Primary Hemorrhage of gastrointestinal tract, unspecified Severe protein-calorie malnutrition (HCC) Other severe protein-calorie malnutrition Anemia due to acute blood loss Acute posthemorrhagic anemia Calculus of kidney Depression, unspecified depression type Elevated troponin Other abnormal blood chemistry Gastrointestinal hemorrhage with melena Essential hypertension Unspecified essential hypertension Restless legs syndrome Restless legs syndrome (RLS) S/P AVR Heart valve replaced by other means Preop examination Preoperative examination, unspecified Acute post-operative pain Calculus of kidney Depression Depressive disorder, not elsewhere classified Restless legs syndrome Restless legs syndrome (RLS) Elevated troponin Other abnormal blood chemistry Anemia due to acute blood loss- Primary Acute posthemorrhagic anemia Moderate protein-calorie malnutrition (HCC) Malnutrition of moderate degree Gastrointestinal hemorrhage associated with duodenal ulcer S/P AVR Heart valve replaced by other means Acute kidney injury (HCC) Acute kidney failure, unspecified Calculus of kidney- Primary Pre-operative examination Preoperative examination, unspecified Restless legs syndrome Restless legs syndrome (RLS) Coronary artery disease involving [place] coronary artery of [place] heart without angina pectoris Nonrheumatic mitral valve regurgitation Nonrheumatic aortic valve insufficiency Aortic valve disorders Complete heart block (HCC) Atrioventricular block, complete Gastroesophageal reflux disease without esophagitis Esophageal reflux Gastrointestinal hemorrhage associated with duodenal ulcer Overactive bladder Hypertonicity of bladder Stage 3 chronic kidney disease (HCC) Iron deficiency anemia, unspecified iron deficiency anemia type Anxiety Anxiety state, unspecified Memory deficit Memory loss S/P AVR- Primary Heart valve replaced by other means Infection and inflammatory reaction due to internal left knee prosthesis, initial encounter ([facility]) Nonrheumatic aortic valve insufficiency Aortic valve disorders Nonrheumatic mitral valve regurgitation Complete heart block (HCC) Atrioventricular block, complete Coronary artery disease involving [place] coronary artery of [place] heart without angina pectoris History of endocarditis Personal history of other diseases of circulatory system Restless legs syndrome Restless legs syndrome (RLS) Gastroesophageal reflux disease without esophagitis Esophageal reflux Gastrointestinal hemorrhage associated with duodenal ulcer Iron malabsorption Other specified intestinal malabsorption Overactive bladder Hypertonicity of bladder Stage 3 chronic kidney disease, unspecified whether stage 3a or 3b CKD ([facility]) Megaloblastic anemia due to vitamin B12 deficiency Other vitamin B12 deficiency anemia Iron 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 Recurrent major depression in partial remission ([facility]) Major depressive disorder, recurrent episode, in partial or unspecified remission Anxiety Anxiety state, unspecified Memory deficit Memory loss History of UTI Personal history of urinary (tract) infection Pre-operative examination- Primary Preoperative examination, unspecified Infection and inflammatory reaction due to internal left knee prosthesis, initial encounter ([facility]) Restless legs syndrome Restless legs syndrome (RLS) Complete heart block (HCC) Atrioventricular block, complete Coronary artery disease involving [place] coronary artery of [place] heart without angina pectoris History of endocarditis Personal history of other diseases of circulatory system Nonrheumatic aortic valve insufficiency Aortic valve disorders Nonrheumatic mitral valve regurgitation Gastroesophageal reflux disease without esophagitis Esophageal reflux Gastrointestinal hemorrhage associated with duodenal ulcer Iron malabsorption Other specified intestinal malabsorption Overactive bladder Hypertonicity of bladder Stage 3 chronic kidney disease, unspecified whether stage 3a or 3b CKD ([facility]) Megaloblastic anemia due to vitamin B12 deficiency Other vitamin B12 deficiency anemia Recurrent major depression in partial remission ([facility]) Major depressive disorder, recurrent episode, in partial or unspecified remission Anxiety Anxiety state, unspecified Memory deficit Memory loss Anemia due to stage 3b chronic kidney disease (HCC) ([facility])- Primary History of gastric bypass Bariatric surgery status Iron malabsorption Other specified intestinal malabsorption [facility] Diagnosis Medicare annual wellness visit, subsequent- Primary Routine general medical examination at a health care facility Gastroesophageal reflux disease without esophagitis Esophageal reflux Essential hypertension Unspecified essential hypertension Recurrent major depressive disorder, in partial remission (HCC) Overactive bladder Hypertonicity of bladder Coronary artery disease involving [place] coronary artery of [place] heart without angina pectoris Screening for osteoporosis Special screening for osteoporosis Osteoporosis, unspecified osteoporosis type, unspecified pathological fracture presence Tendinitis Enthesopathy of unspecified site Restless legs syndrome Restless legs syndrome (RLS) GI bleed- Primary Hemorrhage of gastrointestinal tract, unspecified Severe protein-calorie malnutrition (HCC) Other severe protein-calorie malnutrition Anemia due to acute blood loss Acute posthemorrhagic anemia Calculus of kidney Depression, unspecified depression type Elevated troponin Other abnormal blood chemistry Gastrointestinal hemorrhage with melena Essential hypertension Unspecified essential hypertension Restless legs syndrome Restless legs syndrome (RLS) S/P AVR Heart valve replaced by other means Preop examination Preoperative examination, unspecified Acute post-operative pain Calculus of kidney Depression Depressive disorder, not elsewhere classified Restless legs syndrome Restless legs syndrome (RLS) Elevated troponin Other abnormal blood chemistry Anemia due to acute blood loss- Primary Acute posthemorrhagic anemia Moderate protein-calorie malnutrition (HCC) Malnutrition of moderate degree Gastrointestinal hemorrhage associated with duodenal ulcer S/P AVR Heart valve replaced by other means Acute kidney injury (HCC) Acute kidney failure, unspecified Calculus of kidney- Primary Pre-operative examination Preoperative examination, unspecified Restless legs syndrome Restless legs syndrome (RLS) Coronary artery disease involving [place] coronary artery of [place] heart without angina pectoris Nonrheumatic mitral valve regurgitation Nonrheumatic aortic valve insufficiency Aortic valve disorders Complete heart block (HCC) Atrioventricular block, complete Gastroesophageal reflux disease without esophagitis Esophageal reflux Gastrointestinal hemorrhage associated with duodenal ulcer Overactive bladder Hypertonicity of bladder Stage 3 chronic kidney disease ([facility]) Iron deficiency anemia, unspecified iron deficiency anemia type Anxiety Anxiety state, unspecified Memory deficit Memory loss S/P AVR- Primary Heart valve replaced by other means Infection and inflammatory reaction due to internal left knee prosthesis, initial encounter ([facility]) Nonrheumatic aortic valve insufficiency Aortic valve disorders Nonrheumatic mitral valve regurgitation Complete heart block (HCC) Atrioventricular block, complete Coronary artery disease involving [place] coronary artery of [place] heart without angina pectoris History of endocarditis Personal history of other diseases of circulatory system Restless legs syndrome Restless legs syndrome (RLS) Gastroesophageal reflux disease without esophagitis Esophageal reflux Gastrointestinal hemorrhage associated with duodenal ulcer Iron malabsorption Other specified intestinal malabsorption Overactive bladder Hypertonicity of bladder Stage 3 chronic kidney disease, unspecified whether stage 3a or 3b CKD ([facility]) Megaloblastic anemia due to vitamin B12 deficiency Other vitamin B12 deficiency anemia Iron 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 Recurrent major depression in partial remission (HCC) Major depressive disorder, recurrent episode, in partial or unspecified remission Anxiety Anxiety state, unspecified Memory deficit Memory loss History of UTI Personal history of urinary (tract) infection Pre-operative examination- Primary Preoperative examination, unspecified Infection and inflammatory reaction due to internal left knee prosthesis, initial encounter ([facility]) Restless legs syndrome Restless legs syndrome (RLS) Complete heart block ([facility]) Atrioventricular block, complete Coronary artery disease involving [place] coronary artery of [place] heart without angina pectoris History of endocarditis Personal history of other diseases of circulatory system Nonrheumatic aortic valve insufficiency Aortic valve disorders Nonrheumatic mitral valve regurgitation Gastroesophageal reflux disease without esophagitis Esophageal reflux Gastrointestinal hemorrhage associated with duodenal ulcer Iron malabsorption Other specified intestinal malabsorption Overactive bladder Hypertonicity of bladder Stage 3 chronic kidney disease, unspecified whether stage 3a or 3b CKD (HCC) Megaloblastic anemia due to vitamin B12 deficiency Other vitamin B12 deficiency anemia Recurrent major depression in partial remission (HCC) Major depressive disorder, recurrent episode, in partial or unspecified remission Anxiety Anxiety state, unspecified Memory deficit Memory loss Anemia due to stage 3b chronic kidney disease (HCC) (HCC)- Primary History of gastric bypass Bariatric surgery status Iron malabsorption Other specified intestinal malabsorption [facility] Medicare annual wellness visit, subsequent- Primary Routine general medical examination at a health care facility Gastroesophageal reflux disease without esophagitis Esophageal reflux Essential hypertension Unspecified essential hypertension Recurrent major depressive disorder, in partial remission (HCC) Overactive bladder Hypertonicity of bladder Coronary artery disease involving [place] coronary artery of [place] heart without angina pectoris Screening for osteoporosis Special screening for osteoporosis Osteoporosis, unspecified osteoporosis type, unspecified pathological fracture presence Tendinitis Enthesopathy of unspecified site Restless legs syndrome Restless legs syndrome (RLS) GI bleed- Primary Hemorrhage of gastrointestinal tract, unspecified Severe protein-calorie malnutrition (HCC) Other severe protein-calorie malnutrition Anemia due to acute blood loss Acute posthemorrhagic anemia Calculus of kidney Depression, unspecified depression type Elevated troponin Other abnormal blood chemistry Gastrointestinal hemorrhage with melena Essential hypertension Unspecified essential hypertension Restless legs syndrome Restless legs syndrome (RLS) S/P AVR Heart valve replaced by other means Preop examination Preoperative examination, unspecified Acute post-operative pain Calculus of kidney Depression Depressive disorder, not elsewhere classified Restless legs syndrome Restless legs syndrome (RLS) Elevated troponin Other abnormal blood chemistry Anemia due to acute blood loss- Primary Acute posthemorrhagic anemia Moderate protein-calorie malnutrition (HCC) Malnutrition of moderate degree Gastrointestinal hemorrhage associated with duodenal ulcer S/P AVR Heart valve replaced by other means Acute kidney injury (HCC) Acute kidney failure, unspecified Calculus of kidney- Primary Pre-operative examination Preoperative examination, unspecified Restless legs syndrome Restless legs syndrome (RLS) Coronary artery disease involving [place] coronary artery of [place] heart without angina pectoris Nonrheumatic mitral valve regurgitation Nonrheumatic aortic valve insufficiency Aortic valve disorders Complete heart block (HCC) Atrioventricular block, complete Gastroesophageal reflux disease without esophagitis Esophageal reflux Gastrointestinal hemorrhage associated with duodenal ulcer Overactive bladder Hypertonicity of bladder Stage 3 chronic kidney disease (HCC) Iron deficiency anemia, unspecified iron deficiency anemia type Anxiety Anxiety state, unspecified Memory deficit Memory loss S/P AVR- Primary Heart valve replaced by other means Infection and inflammatory reaction due to internal left knee prosthesis, initial encounter ([facility]) Nonrheumatic aortic valve insufficiency Aortic valve disorders Nonrheumatic mitral valve regurgitation Complete heart block (HCC) Atrioventricular block, complete Coronary artery disease involving [place] coronary artery of [place] heart without angina pectoris History of endocarditis Personal history of other diseases of circulatory system Restless legs syndrome Restless legs syndrome (RLS) Gastroesophageal reflux disease without esophagitis Esophageal reflux Gastrointestinal hemorrhage associated with duodenal ulcer Iron malabsorption Other specified intestinal malabsorption Overactive bladder Hypertonicity of bladder Stage 3 chronic kidney disease, unspecified whether stage 3a or 3b CKD ([facility]) Megaloblastic anemia due to vitamin B12 deficiency Other vitamin B12 deficiency anemia Iron 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 Recurrent major depression in partial remission (HCC) Major depressive disorder, recurrent episode, in partial or unspecified remission Anxiety Anxiety state, unspecified Memory deficit Memory loss History of UTI Personal history of urinary (tract) infection Pre-operative examination- Primary Preoperative examination, unspecified Infection and inflammatory reaction due to internal left knee prosthesis, initial encounter ([facility]) Restless legs syndrome Restless legs syndrome (RLS) Complete heart block (HCC) Atrioventricular block, complete Coronary artery disease involving [place] coronary artery of [place] heart without angina pectoris History of endocarditis Personal history of other diseases of circulatory system Nonrheumatic aortic valve insufficiency Aortic valve disorders Nonrheumatic mitral valve regurgitation Gastroesophageal reflux disease without esophagitis Esophageal reflux Gastrointestinal hemorrhage associated with duodenal ulcer Iron malabsorption Other specified intestinal malabsorption Overactive bladder Hypertonicity of bladder Stage 3 chronic kidney disease, unspecified whether stage 3a or 3b CKD (HCC) Megaloblastic anemia due to vitamin B12 deficiency Other vitamin B12 deficiency anemia Recurrent major depression in partial remission (HCC) Major depressive disorder, recurrent episode, in partial or unspecified remission Anxiety Anxiety state, unspecified Memory deficit Memory loss Anemia due to stage 3b chronic kidney disease (HCC) (HCC)- Primary History of gastric bypass Bariatric surgery status Iron malabsorption Other specified intestinal malabsorption [facility] Diagnosis Medicare annual wellness visit, subsequent- Primary Routine general medical examination at a health care facility Gastroesophageal reflux disease without esophagitis Esophageal reflux Essential hypertension Unspecified essential hypertension Recurrent major depressive disorder, in partial remission (HCC) Overactive bladder Hypertonicity of bladder Coronary artery disease involving [place] coronary artery of [place] heart without angina pectoris Screening for osteoporosis Special screening for osteoporosis Osteoporosis, unspecified osteoporosis type, unspecified pathological fracture presence Tendinitis Enthesopathy of unspecified site Restless legs syndrome Restless legs syndrome (RLS) GI bleed- Primary Hemorrhage of gastrointestinal tract, unspecified Severe protein-calorie malnutrition (HCC) Other severe protein-calorie malnutrition Anemia due to acute blood loss Acute posthemorrhagic anemia Calculus of kidney Depression, unspecified depression type Elevated troponin Other abnormal blood chemistry Gastrointestinal hemorrhage with melena Essential hypertension Unspecified essential hypertension Restless legs syndrome Restless legs syndrome (RLS) S/P AVR Heart valve replaced by other means Preop examination Preoperative examination, unspecified Acute post-operative pain Calculus of kidney Depression Depressive disorder, not elsewhere classified Restless legs syndrome Restless legs syndrome (RLS) Elevated troponin Other abnormal blood chemistry Anemia due to acute blood loss- Primary Acute posthemorrhagic anemia Moderate protein-calorie malnutrition (HCC) Malnutrition of moderate degree Gastrointestinal hemorrhage associated with duodenal ulcer S/P AVR Heart valve replaced by other means Acute kidney injury (HCC) Acute kidney failure, unspecified Calculus of kidney- Primary Pre-operative examination Preoperative examination, unspecified Restless legs syndrome Restless legs syndrome (RLS) Coronary artery disease involving [place] coronary artery of [place] heart without angina pectoris Nonrheumatic mitral valve regurgitation Nonrheumatic aortic valve insufficiency Aortic valve disorders Complete heart block (HCC) Atrioventricular block, complete Gastroesophageal reflux disease without esophagitis Esophageal reflux Gastrointestinal hemorrhage associated with duodenal ulcer Overactive bladder Hypertonicity of bladder Stage 3 chronic kidney disease (HCC) Iron deficiency anemia, unspecified iron deficiency anemia type Anxiety Anxiety state, unspecified Memory deficit Memory loss S/P AVR- Primary Heart valve replaced by other means Infection and inflammatory reaction due to internal left knee prosthesis, initial encounter ([facility]) Nonrheumatic aortic valve insufficiency Aortic valve disorders Nonrheumatic mitral valve regurgitation Complete heart block (HCC) Atrioventricular block, complete Coronary artery disease involving [place] coronary artery of [place] heart without angina pectoris History of endocarditis Personal history of other diseases of circulatory system Restless legs syndrome Restless legs syndrome (RLS) Gastroesophageal reflux disease without esophagitis Esophageal reflux Gastrointestinal hemorrhage associated with duodenal ulcer Iron malabsorption Other specified intestinal malabsorption Overactive bladder Hypertonicity of bladder Stage 3 chronic kidney disease, unspecified whether stage 3a or 3b CKD (HCC) Megaloblastic anemia due to vitamin B12 deficiency Other vitamin B12 deficiency anemia Iron 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 Recurrent major depression in partial remission (HCC) Major depressive disorder, recurrent episode, in partial or unspecified remission Anxiety Anxiety state, unspecified Memory deficit Memory loss History of UTI Personal history of urinary (tract) infection Pre-operative examination- Primary Preoperative examination, unspecified Infection and inflammatory reaction due to internal left knee prosthesis, initial encounter ([facility]) Restless legs syndrome Restless legs syndrome (RLS) Complete heart block (HCC) Atrioventricular block, complete Coronary artery disease involving [place] coronary artery of [place] heart without angina pectoris History of endocarditis Personal history of other diseases of circulatory system Nonrheumatic aortic valve insufficiency Aortic valve disorders Nonrheumatic mitral valve regurgitation Gastroesophageal reflux disease without esophagitis Esophageal reflux Gastrointestinal hemorrhage associated with duodenal ulcer Iron malabsorption Other specified intestinal malabsorption Overactive bladder Hypertonicity of bladder Stage 3 chronic kidney disease, unspecified whether stage 3a or 3b CKD (HCC) Megaloblastic anemia due to vitamin B12 deficiency Other vitamin B12 deficiency anemia Recurrent major depression in partial remission ([facility]) Major depressive disorder, recurrent episode, in partial or unspecified remission Anxiety Anxiety state, unspecified Memory deficit Memory loss Iron 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- Primary Anemia due to stage 3b chronic kidney disease (HCC) ([facility]) History of gastric bypass Bariatric surgery status Iron malabsorption Other specified intestinal malabsorption [facility] Diagnosis Medicare annual wellness visit, subsequent- Primary Routine general medical examination at a health care facility Gastroesophageal reflux disease without esophagitis Esophageal reflux Essential hypertension Unspecified essential hypertension Recurrent major depressive disorder, in partial remission Overactive bladder Hypertonicity of bladder Coronary artery disease involving [place] coronary artery of [place] heart without angina pectoris Screening for osteoporosis Special screening for osteoporosis Osteoporosis, unspecified osteoporosis type, unspecified pathological fracture presence Tendinitis Enthesopathy of unspecified site Restless legs syndrome Restless legs syndrome (RLS) GI bleed- Primary Hemorrhage of gastrointestinal tract, unspecified Severe protein-calorie malnutrition (HCC) Other severe protein-calorie malnutrition Anemia due to acute blood loss Acute posthemorrhagic anemia Calculus of kidney Depression, unspecified depression type Elevated troponin Other abnormal blood chemistry Gastrointestinal hemorrhage with melena Essential hypertension Unspecified essential hypertension Restless legs syndrome Restless legs syndrome (RLS) S/P AVR Heart valve replaced by other means Preop examination Preoperative examination, unspecified Acute post-operative pain Calculus of kidney Depression Depressive disorder, not elsewhere classified Restless legs syndrome Restless legs syndrome (RLS) Elevated troponin Other abnormal blood chemistry Anemia due to acute blood loss- Primary Acute posthemorrhagic anemia Moderate protein-calorie malnutrition (HCC) Malnutrition of moderate degree Gastrointestinal hemorrhage associated with duodenal ulcer S/P AVR Heart valve replaced by other means Acute kidney injury Acute kidney failure, unspecified Calculus of kidney- Primary Pre-operative examination Preoperative examination, unspecified Restless legs syndrome Restless legs syndrome (RLS) Coronary artery disease involving [place] coronary artery of [place] heart without angina pectoris Nonrheumatic mitral valve regurgitation Nonrheumatic aortic valve insufficiency Aortic valve disorders Complete heart block (HCC) Atrioventricular block, complete Gastroesophageal reflux disease without esophagitis Esophageal reflux Gastrointestinal hemorrhage associated with duodenal ulcer Overactive bladder Hypertonicity of bladder Stage 3 chronic kidney disease (HCC) Iron deficiency anemia, unspecified iron deficiency anemia type Anxiety Anxiety state, unspecified Memory deficit Memory loss S/P AVR- Primary Heart valve replaced by other means Infection and inflammatory reaction due to internal left knee prosthesis, initial encounter Nonrheumatic aortic valve insufficiency Aortic valve disorders Nonrheumatic mitral valve regurgitation Complete heart block (HCC) Atrioventricular block, complete Coronary artery disease involving [place] coronary artery of [place] heart without angina pectoris History of endocarditis Personal history of other diseases of circulatory system Restless legs syndrome Restless legs syndrome (RLS) Gastroesophageal reflux disease without esophagitis Esophageal reflux Gastrointestinal hemorrhage associated with duodenal ulcer Iron malabsorption (HCC) Other specified intestinal malabsorption Overactive bladder Hypertonicity of bladder Stage 3 chronic kidney disease, unspecified whether stage 3a or 3b CKD (HCC) Megaloblastic anemia due to vitamin B12 deficiency Other vitamin B12 deficiency anemia Iron 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 Recurrent major depression in partial remission Major depressive disorder, recurrent episode, in partial or unspecified remission Anxiety Anxiety state, unspecified Memory deficit Memory loss History of UTI Personal history of urinary (tract) infection Pre-operative examination- Primary Preoperative examination, unspecified Infection and inflammatory reaction due to internal left knee prosthesis, initial encounter Restless legs syndrome Restless legs syndrome (RLS) Complete heart block (HCC) Atrioventricular block, complete Coronary artery disease involving [place] coronary artery of [place] heart without angina pectoris History of endocarditis Personal history of other diseases of circulatory system Nonrheumatic aortic valve insufficiency Aortic valve disorders Nonrheumatic mitral valve regurgitation Gastroesophageal reflux disease without esophagitis Esophageal reflux Gastrointestinal hemorrhage associated with duodenal ulcer Iron malabsorption (HCC) Other specified intestinal malabsorption Overactive bladder Hypertonicity of bladder Stage 3 chronic kidney disease, unspecified whether stage 3a or 3b CKD (HCC) Megaloblastic anemia due to vitamin B12 deficiency Other vitamin B12 deficiency anemia Recurrent major depression in partial remission Major depressive disorder, recurrent episode, in partial or unspecified remission Anxiety Anxiety state, unspecified Memory deficit Memory loss Anemia due to stage 3b chronic kidney disease (HCC)- Primary Iron malabsorption (HCC) Other specified intestinal malabsorption Copper deficiency Disorders of copper metabolism Megaloblastic anemia due to vitamin B12 deficiency Other vitamin B12 deficiency anemia documented [facility] Dr. Kim[facility] August 19, 2022 3:27pm Note Date/Time August 19, 2022 3:2 7pm [facility] Medical Records Department [address] [place] [id number] H&P Exam - Hospitalist 08/19/22 1514 MR#: [id number] Acct: [id number] Name: MAIA NIETO Rep #:[id number] : 1945 77 From: Prabhakar greenberg MD PCP: Dr. Clau Baca MD Status:ADM I NO [id number] - General General Date of Admission: 08/19/22 HPI Narrative MAIA NIETO, is a 77 F who presents with altered mental status and weakness. Family states that they had dinner with her last night she seemed okay but thismorning they went over and she was sitting naked in the chair, and had difficulty rising on her own and needs significant assistance by her children. She did not know why she was naked. In the ER she does not know what year it isthough she does know where she is. Family does indicate that there has been progressive worsening in mental status over the last several months and they areactually currently looking into assisted living. Of note she was recently in the ER about a week ago and was diagnosed with a UTI and started on Macrobid however this was changed to Levaquin when sensitivities came back. Unfortunately she is to be dosed every 48 hours and she has been getting the Levaquin every day so we will hold the dose today and restart tomorrow morning. In the ER lab work demonstrates a sodium of 127 and potassium of 3.1. Her renalfunction is actually better than it was a week ago at 2.19. [facility] Medical History Anxiety CAD (coronary artery disease) Depression Dyspnea GERD (gastroesophageal reflux disease) GI bleed HTN (hypertension) Hyperlipidemia Iron deficiency anemia Irregular heart beat Kidney stones Osteoarthritis Pacemaker Parkinson disease Post-menopausal Restless legs Rheumatoid arthritis Home Medications carbidopa 25 mg-levodopa 100 mg tablet 1 tab PO BID restless legs 11/29/18 [History Last Taken 05/01/21] pantoprazole 40 mg tablet,delayed release 40 mg PO BID gerd 03/01/19 [History Last Taken 05/01/21] potassium chloride 20 mEq tablet,extended release(part/cryst) 10 meq PO DAILY supplement 03/28/19 [History Last Taken Unknown] atorvastatin 10 mg tablet 10 mg PO QHS cholesterol 05/01/21 [History Last Taken Unknown] cholecalciferol (vitamin D3) 50 mcg (2,000 unit) tablet (Vitamin D3) 50 mcg PO DAILY supplement 05/01/21 [History Last Taken Unknown] copper gluconate 2 mg tablet 4 mg PO DAILY supplement 05/01/21 [History Last Taken Unknown] doxycycline hyclate 100 mg capsule (Vibramycin) 100 mg PO BID antibiotic 05/01/21 [History Last Taken Unknown] losartan 50 mg-hydrochlorothiazide 12.5 mg tablet 1 tab PO DAILY . 05/30/22 [History Last Taken Unknown] mirabegron 50 mg tablet,extended release 24 hr (Myrbetriq) 50 mg PO BID 05/30/22[History Last Taken Unknown] trazodone 100 mg tablet 100 mg PO QHS 05/30/22 [History Last Taken Unknown] ferrous sulfate 325 mg (65 mg iron) tablet 325 mg PO DAILY anemia 08/19/22 [History Last Taken Unknown] levofloxacin 750 mg tablet 750 mg PO DAILY ANTIBIOTIC 08/19/22 [History Last Taken Unknown] Allergy/AdvReac Type Severity Reaction Status Date / Time amoxicillin Allergy Itching Verified 08/12/22 17:54 Penicillins Allergy Itching Verified 08/12/22 17:54 Family History Other Diabetes Hypertension Surgical History History of total knee replacement (TKR) Hx of CABG S/P hysterectomy Social History household members: none housing: house Smoking Status: Never smoker substance use type: does not use ROS Constitutional Constitutional: Reports weakness; Denies chills, fatigue, fever(s) or malaise Eyes Eyes: Denies blurry vision ENT HEENT: Denies headache(s) or nasal discharge Cardiovascular Cardiovascular: Denies chest pain, dyspnea on exertion or syncope Respiratory/Chest Respiratory/Chest: Denies cough, shortness of breath at rest or shortness of breath with exertion Gastrointestinal Gastrointestinal: Denies constipation, diarrhea, nausea or vomiting Genitourinary Genitourinary: Denies dysuria Neurologic Neurologic: Reports confusion; Denies focal weakness, numbness or tremor(s) Psychiatric Psychiatric: Denies anxiety or depression Vital Signs Vital Signs Vital Signs: 08/19/22 09:29 08/19/22 12:11 08/19/22 14:00 Temperature 98.5 F 99.2 F H Temperature Source Temporal Temporal Pulse Rate 98 96 85 Respiratory Rate 18 19 H 20 H Blood Pressure 145/117 H 110/62 118/64 Blood Pressure Mean 126 78 82 Pulse Ox 95 98 94 Oxygen Delivery Method Room Air Room Air Weight Weight: 142 lb 6.698 oz Body Mass Index (BMI) 26.0 Physical Exam Narrative General: Alert, Oriented x2, Cooperative, No apparent distress HEENT: Atraumatic, PERRLA, EOMI, Normocephalic Oral: Moist Mucosa Neck: Supple, No JVD Lungs: Clear to auscultation, Normal air movement, No rhonchi, No wheeze, No rales Cardiovascular: Regular rate, Regular Rhythm, Normal S1, Normal S2, No murmurs Abdomen: Soft, Non Tender, Non-Distended, No Hepato-splenomegaly Extremities: No edema, Capillary Refill Less than 3 Seconds Skin: No rashes, No breakdown Musculoskeletal: No Tenderness to Palpation of Joints or Extremities Neurological: Cranial nerves II-XII grossly intact, Motor Exam 5/5 strength throughout, Sensory exam intact to light touch and pain Psych/Mental Status: Normal Affect, Appropriate Results Lab / Micro Data Result Diagrams: 08/19/22 09:50 08/19/22 09:50 Labs: Laboratory Results - last 24 hr 08/19/22 09:50: WBC 8.2, RBC 3.10 L, Hgb 10.2 L, Hct 30.4 L, MCV 98.1, MCH 32.9 H, MCHC 33.6, RDW Std Deviation 43.8, RDW Coeff of Erma 12.1, Plt Count 183, MPV 9.8, Immature Gran % (Auto) 1.600 H, Neut % (Auto) 74.5 H, Lymph % (Auto) 12.0 L, [place] % (Auto) 10.7 H, Eos % (Auto) 1.0, Baso % (Auto) 0.2, Absolute Neuts (auto) 6.1, Absolute Lymphs (auto) 0.98, Nucleated RBC % 0 08/19/22 09:50: Sodium 127 L, Potassium 3.1 L, Chloride 96 L, Carbon Dioxide 21.0, Anion Gap 10, BUN 50 H, Creatinine 2.19 H, Estim Creat Clear Calc 16.47, Est GFR (MDRD) Af Amer 28 L, Est GFR (MDRD) Non-Af 23 L, BUN/Creatinine Ratio 22.8 H, Glucose 110 H, Calcium 8.7 08/19/22 10:34: Lactic Acid 1.1 08/19/22 11:00: Urine Color Yellow, Urine Clarity Sl. Cloudy, Urine pH 6.0, Ur Specific [place] 1.010, Urine Protein Negative, Urine Glucose (UA) Normal, UrineKetones Negative, Urine Occult Blood Negative, Urine Nitrite Negative, Urine Bilirubin Negative, Urine Urobilinogen Normal, Ur Leukocyte Esterase Negative, Urine RBC 0 SEEN, Urine WBC 0 SEEN, Ur Squamous Epith Cells 0-5 SEEN, Urine Bacteria 0 SEEN, Urine Mucus 0 SEEN Micro: Microbiology 08/19/22 11:55 Stool Stool Occult Blood (KYLE) - Final Radiology Impression Brain CT 08/19/22 10:22 IMPRESSION: Chronic involutional changes of the brain. Electronically Signed: Garth Everett MD at 11:36 EDT , Shoulder X-Ray 08/19/22 10:24 IMPRESSION: Severe DJD of the left shoulder. Electronically Signed: Garth Everett MD at 11:47 EDT , Chest X-Ray 08/19/22 11:20 IMPRESSION: Degenerative changes, as described above. No demonstrated acute cardiopulmonary process. Electronically Signed: Garth Everett MD at 11:46 EDT , Assessment & Plan Assessment/Plan (1) Confusion: (2) Weakness: (3) Acute hyponatremia: PLAN: Plan 1. Weakness and debility with inability to complete ADLs with altered mental status and confusion/UTI from E. coli/hyponatremia/HILARIO on CKD 3B ? We will consult PT/OT for evaluation and possible placement ? Family is already looking at assisted living options as she has been getting more confused as time is gone on ? We will continue with 1 more dose of Levaquin, given her creatinine clearance that should be dosed every 48 hours her last dose was last night so we will giveher 1 more dose tomorrow and then it can be discontinued ? We will hold her hydrochlorothiazide given her hyponatremia and place her on IV fluids ? She is also hypokalemic so we will obtain a phosphorus and magnesium tomorrow morning and continue with potassium replacement ? Baseline creatinine is around 1.5 currently 2.19 we will continue with IV fluids 2. HTN/HLD/CAD status post CABG/pacemaker ? We will hold her hydrochlorothiazide secondary to hyponatremia and will hold losartan secondary to HILARIO ? Can continue with Lipitor 3. Restless legs ? They state that she takes Sinemet for restless legs given her age and the factthat this is not a standard treatment for restless legs will back off the dosingsee if this helps with her confusion 4. Iron deficiency anemia/GERD/history of GI bleed ? We will continue with her iron replacement ? Continue with PPI DVT: SCDs Charges/Coding Visit Charges Inpatient E&M: 17136 Init Hosp L3 08/19/22 1527 <Electronically signed by Prabhakar Kimball MD> Cosigner Signature (if applicable): CC: Dr. Clau Baca MD; Dr. Prabhakar Kimball MD~ Signed [facility] Work Phone: [facility] (n[facility] Diagnostic Procedure Only (Routine) - Closed Specialty Diagnoses / Procedures Referred By Iraida cornelius Referred To Contact XR IMAGING Diagnoses Status post knee surgery Procedures XR KNEE POST OP 3V AP/LAT/MERCHANT LEFT RADIOLOGIC EXAMINATION KNEE 3 VIEWS Anatoly Brown DO [address] [place] [address] Xr Imaging Referral ID Status Reason Start Date Expiration Date V isits Requested Visits Authorized [id number] Closed Auto-Generate d Referral 11/03/2021 12/03/2022 1 1 [facility] for referral (narrative)* Outpatient Procedure (Routine) - Authorized Specialty Diagnoses / Procedures Referred By Iraida cornelius Referred [facility] Diagnoses Hyperlipidemia, mixed S/P AVR Complete heart block (HCC) History of endocarditis Memory deficit Stage 3 chronic kidney disease, unspecified whether stage 3a or 3b CKD (HCC) Procedures ECHO ECHO TTHRC R-T 2D W/WOM-MODE COMPL SPEC&COLR D Avtar Hearn DO [address] [address] [facility] [place] [address] [place] [address] Referral ID Status Reason Start Date Expiration Date Visits Requested Visits Authorized [id number] Authorized Auto-Generat ed Referral 03/01/2022 03/01/2023 1 1 * Outpatient Procedure (Routine) - Closed Specialty Diagnoses / Procedures Referred By Contac t Referred To Contact [facility] Diagnoses Hyperlipidemia, mixed S/P AVR Complete heart block (HCC) History of endocarditis Memory deficit Stage 3 chronic kidney disease, unspecified whether stage 3a or 3b CKD (HCC) Procedures ECG COMPLETE ECG ROUTINE ECG W/LEAST 12 LDS W/I&R Avtar Hearn DO [address] [address] [facility] [address] [address] Referral ID Status Reason Start Date Expiration Date V isits Requested Visits Authorized [id number] Closed Auto-Generate d Referral 03/01/2022 03/01/2023 1 1 [facility] for referral (narrative)* Diagnostic Procedure Only (Routine) - Authorized Specialty Diagnoses / Procedures Referred By Iraida t Referred To Contact XR IMAGING Diagnoses Status post revision of total replacement of left knee Procedures XR KNEE GENERAL 4V AP BOTH/PA BOTH/LAT/MERC LEFT RADIOLOGIC EXAM KNEE COMPLETE 4/MORE VIEWS Jeferson Thomas PA-C [address] [place] [address] Xr Imaging Referral ID Status Reason Start Date Expiration Date Visits Requested Visits Authorized [id number] Authorized Auto-Generat ed Referral 11/02/2022 12/02/2023 1 1 [facility] for referral (narrative)* Diagnostic Procedure Only (Routine) - Closed Specialty Diagnoses / Procedures Referred By Contac t Referred To Contact XR IMAGING Diagnoses Status post knee surgery Procedures XR KNEE POST OP 3V AP/LAT/MERCHANT LEFT RADIOLOGIC EXAMINATION KNEE 3 VIEWS Anatoly Brown, DO [address] [place] [address] [place] [address] Referral ID Status Reason Start Date Expiration Date V isits Requested Visits Authorized [id number] Closed Auto-Generate d Referral 11/03/2021 12/03/2022 1 1 [facility] for referral (narrative)* Diagnostic Procedure Only (Routine) - Closed Specialty Diagnoses / Procedures Referred By Contac t Referred To Contact XR IMAGING Diagnoses Infection and inflammatory reaction due to internal left knee prosthesis, subsequent encounter Procedures XR KNEE POST OP 3V AP/LAT/MERCHANT LT X-RAY KNEE 3+ VW Anatoly Brown, DO [address] [place] [address] [place] [address] Referral ID Status Reason Start Date Expiration Date V isits Requested Visits Authorized [id number] Closed Auto-Generate d Referral 01/15/2021 02/14/2022 1 1 [facility] for referral (narrative)* Diagnostic Procedure Only (Routine) - Closed Specialty Diagnoses / Procedures Referred By Contac t Referred To Contact XR IMAGING Diagnoses Status post revision of total replacement of left knee Procedures XR FEMUR GENERAL 2V AP/LAT LT RADIOLOGIC EXAMINATION FEMUR MINIMUM 2 VIEWS Jeferson Thomas PA-C [address] [place] [address] [place] [address] Referral ID Status Reason Start Date Expiration Date V isits Requested Visits Authorized [id number] Closed Auto-Generate d Referral 03/12/2021 04/11/2022 1 1 * Diagnostic Procedure Only (Routine) - Closed Specialty Diagnoses / Procedures Referred By Contac t Referred To Contact XR IMAGING Diagnoses Status post revision of total replacement of left knee Procedures XR KNEE GENERAL 4V AP BOTH/PA BOTH/LAT/MERC LT KNEE AP-WGT/LAT/MERCHANT Jeferson Thomas PA-C [address] [place] [address] [place] [address] Referral ID Status Reason Start Date Expiration Date V isits Requested Visits Authorized [id number] Closed Auto-Generate d Referral 03/12/2021 04/11/2022 1 1 [facility] for referral (narrative)* Diagnostic Procedure Only (Routine) - Closed Specialty Diagnoses / Procedures Referred By Contac t Referred To Contact XR IMAGING Diagnoses Acute pain of left knee Edema of knee Status post fall Procedures XR KNEE GENERAL 4V AP BOTH/PA BOTH/LAT/MERC LEFT RADIOLOGIC EXAM KNEE COMPLETE 4/MORE VIEWS Eryn Elliott APRN.CNP [address] [place] [address] Xr Imaging [facility] Referral ID Status Reason Start Date Expiration Date V isits Requested Visits Authorized [id number] Closed Auto-Generate d Referral 10/21/2021 11/20/2022 1 1 [facility] for referral (narrative)No reason for referral information availableWTriHealth [facility] Work Phone: Reason for visit Narrative* Outpatient Procedure (Routine) - Closed Specialty Diagnoses / Procedures Referred By Iraida cornelius Referred To Contact [facility] Diagnoses Hyperlipidemia, mixed S/P AVR Complete heart block (HCC) History of endocarditis Memory deficit Stage 3 chronic kidney disease, unspecified whether stage 3a or 3b CKD (HCC) Procedures ECHO ECHO TTHRC R-T 2D W/WOM-MODE COMPL SPEC&COLR D Avtar Hearn DO [address] [address] [facility] [place] [address] [place] [address] Referral ID Status Reason Start Date Expiration Date V isits Requested Visits Authorized [id number] Closed Auto-Generate d Referral 03/01/2022 03/01/2023 1 1 [facility] for visit Narrative* Diagnostic Procedure Only (Routine) - Closed Specialty Diagnoses / Procedures Referred By Contac t Referred To Contact XR IMAGING Diagnoses Status post knee surgery Procedures XR KNEE POST OP 3V AP/LAT/MERCHANT LEFT RADIOLOGIC EXAMINATION KNEE 3 VIEWS Anatoly Brown, DO [address] [place] [address] [place] [address] Referral ID Status Reason Start Date Expiration Date V isits Requested Visits Authorized [id number] Closed Auto-Generate d Referral 11/03/2021 12/03/2022 1 1 [facility] for visit Narrative* Diagnostic Procedure Only (Routine) - Closed Specialty Diagnoses / Procedures Referred By Contac t Referred To Contact XR IMAGING Diagnoses Status post revision of total replacement of left knee Procedures XR FEMUR GENERAL 2V AP/LAT LT RADIOLOGIC EXAMINATION FEMUR MINIMUM 2 VIEWS Jeferson Thomas PA-C [address] [place] [id number] [place] [address] Referral ID Status Reason Start Date Expiration Date V isits Requested Visits Authorized [id number] Closed Auto-Generate d Referral 03/12/2021 04/11/2022 1 1 [facility] for visit Narrative* Diagnostic Procedure Only (Routine) - Closed Specialty Diagnoses / Procedures Referred By Contac t Referred To Contact XR IMAGING Diagnoses Status post revision of total replacement of left knee Procedures XR KNEE GENERAL 4V AP BOTH/PA BOTH/LAT/MERC LEFT RADIOLOGIC EXAM KNEE COMPLETE 4/MORE VIEWS Jeferson Thomas PA-C [address] [place] [address] [place] [address] Referral ID Status Reason Start Date Expiration Date V isits Requested Visits Authorized [id number] Closed Auto-Generate d Referral 11/02/2022 12/02/2023 1 1 [facility] for visit Narrative* Diagnostic Procedure Only (Routine) - Closed Specialty Diagnoses / Procedures Referred By Contac t Referred To Contact XR IMAGING Diagnoses Acute pain of left knee Edema of knee Status post fall Procedures XR KNEE GENERAL 4V AP BOTH/PA BOTH/LAT/MERC LEFT RADIOLOGIC EXAM KNEE COMPLETE 4/MORE VIEWS Eryn Elliott APRN.CONFLICTS ANALYST [address] [place] [address] [place] [address] Referral ID Status Reason Start Date Expiration Date V isits Requested Visits Authorized [id number] Closed Auto-Generate d Referral 10/21/2021 11/20/2022 1 1 [facility] Summary Purpose Family History No Family History Records Found Relationship Condition Age at Onset Recorded Date/T yolanda Not Specified Diabetes mellitus Unknown Hypertension Unknown Advance Directives No Advanced Directives Records FoundDocuments on File Type Date Recorded 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 Advance Directive(s) 02/04/2021 2:17 PM Advance Directive(s) 10/30/2020 6:58 PM Advance Directive(s) 10/30/2020 7:04 PM Advance Directive(s) 10/28/2020 5:16 PM Advance Directive(s) 07/25/2019 9:18 AM Advance Directive(s) 04/10/2019 2:00 PM Advance Directive(s) 03/29/2019 7:26 AM Advance Directive(s) 03/04/2019 8:42 PM Advance Directive(s) 12/06/2018 4:45 PM Advance Directive Response Recorded Date/ Time Living Will Yes October 27, 2021 8 :01pm Power of Cps Team Lead Yes October 27, 2021 8:01pm Advance Directive Response Recorded Date/ Time Name of Medical Power of Cps Team Lead REYNA ARGUETA October 27, 2021 8:01pm Living Will No October 30, 2021 1 2:54pm Power of Cps Team Lead No October 30, 2021 12:54pm Documents on File Type Date Recorded 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 Advance Directive(s) 02/04/2021 2:17 PM Advance Directive(s) 10/30/2020 6:58 PM Advance Directive(s) 10/30/2020 7:04 PM Advance Directive(s) 10/28/2020 5:16 PM Advance Directive(s) 07/25/2019 9:18 AM Advance Directive(s) 04/10/2019 2:00 PM Advance Directive(s) 03/29/2019 7:26 AM Advance Directive(s) 03/04/2019 8:42 PM Advance Directive(s) 12/06/2018 4:45 PM Advance Directive Response Recorded Date/ Time Living Will Yes May 30 12:27pm Power of Cps Team Lead Yes May 30, 2022 12:27pm Name of Medical Power of Cps Team Lead reyna May 30, 2022 12:27pm Advance Directive Response Recorded Date/ Time Name of Medical Power of Cps Team Lead Reyna-daughter May 30, 2022 6:01pm Living Will Yes May 30 6:01pm Power of Cps Team Lead Yes May 30, 2022 6:01pm Advance Directive Response Recorded Date/ Time Name of Medical Power of Cps Team Lead Reyna-daughter May 30, 2022 6:01pm Name of Medical Power of Cps Team Lead daughter August 12, 2022 6:05pm Living Will Yes August 12, 2022 6:05pm Power of Cps Team Lead Yes August 12 6:05pm Advance Directive Response Recorded Date/ Time Name of Medical Power of Cps Team Lead Reyna-daughter May 30, 2022 7:01pm Name of Medical Power of Cps Team Lead daughter August 12, 2022 7:05pm Name of Medical Power of Cps Team Lead daughter August 19, 2022 9:43am Living Will Yes August 19, 2022 9:43am Power of Cps Team Lead Yes August 19 9:43am Advance Directive Response Recorded Date/ Time Name of Medical Power of Cps Team Lead Reyna-daughter May 30, 2022 7:01pm Name of Medical Power of Cps Team Lead daughter August 12, 2022 7:05pm Name of Medical Power of Cps Team Lead daughter, Ezio n August 19, 2022 4:22pm Living Will Yes August 19, 2022 4:22pm Power of Cps Team Lead Yes August 19 4:22pm Advance Directive Response Recorded Date/ Time Name of Medical Power of Cps Team Lead Reyna-daughter May 30, 2022 7:01pm Name of Medical Power of Cps Team Lead daughter August 12, 2022 7:05pm Name of Medical Power of Cps Team Lead daughter, Ezio n August 19, 2022 4:22pm Living Will No September 12, 2022 4:30am Power of Cps Team Lead No September 12 4:30am Advance Directive Response Recorded Date/ Time Living Will No September 12, 2022 3:30am Power of Cps Team Lead No September 12 3:30am Advance Directive Response Recorded Date/ Time Living Will No September 12, 2022 4:30am Power of Cps Team Lead No September 12 4:30am Procedure Findings Note HNO ID: [id number] Author: Gladys Connelly MD Service: Urology Author Type: Physician Type: Operative Report Filed: 07/25/2019 11:24 AM Note Text: UROLOGY SERVICE OPERATIVE NOTE LOG ID: [id number] Surgery/Procedure Date: 07/25/2019 Incision/Procedure Start Time: 10:15 AM Incision Close/Procedure End Time: 11:19 AM Patient Age: [age] year old Surgeon(s)/Proceduralist(s) and Developmental Psychologist(s): Surgeon(s) and Role: * Luis Connelly MD - Primary No Additional Staff Anesthesia: General Preop Diagnosis: Pre-Op Diagnosis Codes: * Kidney stones [N20.0] Postop Diagnosis: Same as preoperative diagnosis Clinical Preamble: . Patient presents for management of kidney stones, left side. Patient signed informed consent was obtained prior to the procedure after the risks, complications and alternatives to the procedure were discussed. Pre-op urine culture was obtained to rule out UTI. Laterality: left side Approach: Endoscopic Procedure: Ureteroscopy, laser lithotripsy stent placement Left side Interpretation and use fl (more content not included)... Note HNO ID: [id number] Author: dEmar Jiménez Service: ? Author Type: Nurse Picture Copyist Type: Anesthesia Procedure Notes Filed: 07/25/2019 10:13 AM Note Text: ANESTHESIOLOGY PROCEDURE NOTE Airway General Information Procedure Start Time/Medication Administration: 07/25/2019 10:06 AM Patient location during procedure: OR Staffing Anesthesiologist: Clara Jimenez SHOCK ABSORBER INSTALLER: Andreia Jiménez Performed by: SANTIAGO Indications and Patient Condition Preoxygenated: yes Patient position: sniffing Difficult Mask: No Indications for airway management: anesthesia anesthesia circuit Method: asleep Final Airway Details Final airway type: supraglottic airway Number of attempts at approach: 1 Final Supraglottic Airway: IGEL Size 3 Seal Adequate: yes Airway not difficult SIGNATURE: Andreia Jiménez APRN.CRNA PATIENT NAME: Maia Nieto DATE: July 25, 2019 TIME: 10:13 AM CSN: [id number] Note HNO ID: [id number] Author: Edmar gayle (Santiago) Jessy Service: ? Author Type: Nurse Picture Copyist Type: Anesthesia Procedure Notes Filed: 07/25/2019 10:18 AM Note Text: ANESTHESIOLOGY PROCEDURE NOTE Airway General Information SIGNATURE: Andreia Jiménez APRN.CRNA PATIENT NAME: Maia Nieto DATE: July 25, 2019 TIME: 10:18 AM CSN: [id number] Medications Administered Section Inactive Administered Medications - up to 3 most recent administrations Medication Order MAR Action Action Date Dose Rate Site cyanocobalamin 1,000 mcg injection 1,000 mcg, INTRAMUSCULAR, ONCE, 1 dose, On Mon09/06/21 at 1030 Given 09/06/2021 10:18 AM EDT 1,000 mcg Deltoid, Right Inactive Administered Medications - up to 3 most recent administrations Medication Order MAR Action Action Date Dose Rate Site cyanocobalamin 1,000 mcg injection 1,000 mcg, INTRAMUSCULAR, ONCE, 1 dose, On Mon11/02/21 at 1430 Given 11/02/2021 2:26 PM EDT 1,000 mcg Deltoid, Right Inactive Administered Medications - up to 3 most recent administrations Medication Order MAR Action Action Date Dose Rate Site cyanocobalamin 1,000 mcg injection 1,000 mcg, INTRAMUSCULAR, ONCE, 1 dose, On Mon12/28/21 at 1200 Given 12/28/2021 11:49 AM EDT 1,000 mcg Deltoid, Right Inactive Administered Medications - up to 3 most recent administrations Medication Order MAR Action Action Date Dose Rate Site cyanocobalamin 1,000 mcg injection 1,000 mcg, INTRAMUSCULAR, ONCE, 1 dose, On Mon01/25/22 at 1230 Given 01/25/2022 12:30 PM EDT 1,000 mcg Deltoid, Left Inactive Administered Medications - up to 3 most recent administrations Medication Order MAR Action Action Date Dose Rate Site cyanocobalamin 1,000 mcg injection 1,000 mcg, INTRAMUSCULAR, ONCE, 1 dose, On Mon02/22/22 at 1400 Given 02/22/2022 2:03 PM EDT 1,000 mcg Deltoid, Right Inactive Administered Medications - up to 3 most recent administrations Medication Order MAR Action Action Date Dose Rate Site cyanocobalamin 1,000 mcg injection 1,000 mcg, INTRAMUSCULAR, ONCE, 1 dose, On Mon03/22/22 at 1200 Given 03/22/2022 12:02 PM EDT 1,000 mcg Deltoid, Left Inactive Administered Medications - up to 3 most recent administrations Medication Order MAR Action Action Date Dose Rate Site cyanocobalamin 1,000 mcg injection 1,000 mcg, INTRAMUSCULAR, ONCE, 1 dose, On Mon04/19/22 at 1300 Given 04/19/2022 12:55 PM EST 1,000 mcg Deltoid, Right Inactive Administered Medications - up to 3 most recent administrations Medication Order MAR Action Action Date Dose Rate Site cyanocobalamin 1,000 mcg injection 1,000 mcg, INTRAMUSCULAR, ONCE, 1 dose, On Mon05/17/22 at 1400 Given 05/17/2022 2:04 PM EST 1,000 mcg Deltoid, Left Inactive Administered Medications - up to 3 most recent administrations Medication Order MAR Action Action Date Dose Rate Site cyanocobalamin 1,000 mcg injection 1,000 mcg, INTRAMUSCULAR, ONCE, 1 dose, On Mon06/14/22 at 1200 Given 06/14/2022 11:41 AM EST 1,000 mcg Deltoid, Right Inactive Administered Medications - up to 3 most recent administrations Medication Order MAR Action Action Date Dose Rate Site cyanocobalamin 1,000 mcg injection 1,000 mcg, INTRAMUSCULAR, ONCE, 1 dose, On Mon07/12/22 at 1400 Given 07/12/2022 1:49 PM EST 1,000 mcg Deltoid, Left Inactive Administered Medications - up to 3 most recent administrations Medication Order MAR Action Action Date Dose Rate Site cyanocobalamin 1,000 mcg injection 1,000 mcg, INTRAMUSCULAR, ONCE, 1 dose, On Mon09/06/22 at 1500 Given 09/06/2022 2:51 PM EDT 1,000 mcg Deltoid, Left Inactive Administered Medications - up to 3 most recent administrations Medication Order MAR Action Action Date Dose Rate Site cyanocobalamin 1,000 mcg injection 1,000 mcg, INTRAMUSCULAR, ONCE, 1 dose, On Mon10/04/22 at 1130 Given 10/04/2022 11:23 AM EDT 1,000 mcg Deltoid, Right Chief Complaint and Reason for Visit Chief Complaint HOSP FU general illness Reason for Visit GI bleed Chief Complaint HOSP FU general illness weakness Reason for Visit GI bleed Chief Complaint HYPOTENSION/DEHYDRAT ION Reason for Visit Acute hypotension Acute prerenal azotemia Acute renal failure superimposed on stage 3a chronic kidney disease Chief Complaint HYPOTENSION/DEHYDRAT ION HYPOTENSION/DEHYDRATION HYPOTENSION/DEHYDRATION HYPOTENSION/DEHYDRATION Reason for Visit Acute hypotension Acute prerenal azotemia Acute renal failure superimposed on stage 3a chronic kidney disease Debility Decreased oral intake Generalized weakness Hypokalemia Melena Chief Complaint HYPOTENSION/DEHYDRAT ION HYPOTENSION/DEHYDRATION HYPOTENSION/DEHYDRATION HYPOTENSION/DEHYDRATION UTI WEAK Reason for Visit Debility Generalized weakness Acute hypotension Acute prerenal azotemia Acute renal failure superimposed on stage 3a chronic kidney disease Decreased oral intake Hypokalemia Melena Chief Complaint HYPOTENSION/DEHYDRAT ION HYPOTENSION/DEHYDRATION HYPOTENSION/DEHYDRATION HYPOTENSION/DEHYDRATION UTI WEAK WEAKNESS AND DEBILITY WEAKNESS AND DEBILITY Reason for Visit Debility Generalized weakness Acute hypotension Acute prerenal azotemia Acute renal failure superimposed on stage 3a chronic kidney disease Decreased oral intake Hypokalemia Melena Acute hypokalemia Acute hyponatremia Confusion Weakness Chief Complaint HYPOTENSION/DEHYDRAT ION HYPOTENSION/DEHYDRATION HYPOTENSION/DEHYDRATION HYPOTENSION/DEHYDRATION UTI WEAK WEAKNESS AND DEBILITY WEAKNESS AND DEBILITY WEAKNESS AND DEBILITY WEAKNESS AND DEBILITY WEAKNESS AND DEBILITY WEAKNESS AND DEBILITY Reason for Visit Debility Generalized weakness Acute hypotension Acute prerenal azotemia Acute renal failure superimposed on stage 3a chronic kidney disease Decreased oral intake Hypokalemia Melena Acute hypokalemia Acute hyponatremia Confusion Weakness Chief Complaint HYPOTENSION/DEHYDRAT ION HYPOTENSION/DEHYDRATION HYPOTENSION/DEHYDRATION HYPOTENSION/DEHYDRATION UTI WEAK WEAKNESS AND DEBILITY WEAKNESS AND DEBILITY WEAKNESS AND DEBILITY WEAKNESS AND DEBILITY WEAKNESS AND DEBILITY WEAKNESS AND DEBILITY LABWORK fall head injury Reason for Visit Debility Generalized weakness Acute hypotension Acute prerenal azotemia Acute renal failure superimposed on stage 3a chronic kidney disease Decreased oral intake Hypokalemia Melena Acute hypokalemia Acute hyponatremia Confusion Weakness Chief Complaint HYPOTENSION/DEHYDRAT ION HYPOTENSION/DEHYDRATION HYPOTENSION/DEHYDRATION HYPOTENSION/DEHYDRATION UTI WEAK WEAKNESS AND DEBILITY WEAKNESS AND DEBILITY WEAKNESS AND DEBILITY WEAKNESS AND DEBILITY WEAKNESS AND DEBILITY WEAKNESS AND DEBILITY LABWORK [facility] fall head injury Reason for Visit Debility Generalized weakness Acute hypotension Acute prerenal azotemia Acute renal failure superimposed on stage 3a chronic kidney disease Decreased oral intake Hypokalemia Melena Acute hypokalemia Acute hyponatremia Confusion Weakness Chief Complaint [facility] Chief Complaint [facility] Chief Complaint Admit Date [facility] October 10, 2024 6:20 am Reason for Referral Specialty Diagnoses / Procedures Referred By Iraida cornelius Referred To Contact Cardiology Diagnoses Hyperlipidemia, unspecified hyperlipidemia type 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, sequela Procedures CONSULT TO CARDIOLOGY OFFICE/OUTPATIENT NEW HIGH MDM 60-74 MINUTES Older, JEOVANY Cerna.CONFLICTS ANALYST [address] [place] [address] Referral ID Status Reason Start Date Expiration Date Visits Requested Visits Authorized [id number] Authorized PCP Requested Referral 01/10/2022 01/10/2023 1 1 Health Concerns Problem Noted Date High Risk Chronic Disease Home Monitorin g Problem 10/19/2022 Problem Noted Date High Risk Chronic Disease Home Monitorin g Problem 10/19/2022 Problem Noted Date Diagnosed Date High Risk Chronic Disease Home Monitoring Proble 10/19/2022 Problem Noted Date Diagnosed Date High Risk Chronic Disease Home Monitoring Proble 10/19/2022 Problem Noted Date Diagnosed Date High Risk Chronic Disease Home Monitoring [place]ble 10/19/2022 Problem Noted Date Diagnosed Date High Risk Chronic Disease Home Monitoring [place]ble 10/19/2022 Active Problems Noted Date Diagnosed Date High Risk Chronic Disease Home Monitoring Proble 10/19/2022 Additional Source Comments INFORMATION SOURCE (unrecogn ized section and content) DATE CREATED AUTHOR 12/15/2018 [facility] DATE CREATED AUTHOR AUTHOR'S ORGANIZ ATION 03/29/2019 [facility] DATE CREATED AUTHOR AUTHOR'S ORGANIZ ATION 07/31/2019 [facility] DATE CREATED AUTHOR AUTHOR'S ORGANIZ ATION 08/04/2024 [facility] DATE CREATED AUTHOR AUTHOR'S ORGANIZ ATION 12/02/2024 [facility] DATE CREATED AUTHOR AUTHOR'S ORGANIZ ATION 12/19/2024 [facility] DATE CREATED AUTHOR AUTHOR'S ORGANIZ ATION 04/05/2025 [facility] Source Comments (unrecognize d section and content) In the event this informatio n is protected by the Federal Confidentiality of Alcohol and Drug Abuse Patient Records regulations: The Federal rules restrict any use of the information to criminally investigate or prosecute any alcohol or drug abuse patient.[facility] the event this information is protected by the Federal Confidentiality of Alcohol and Drug Abuse Patient Records regulations: The Federal rules restrict any use of the information to criminally investigate or prosecute any alcohol or drug abuse patient.[facility] CenterIn the event this information is protected by the Federal Confidentiality of Alcohol and Drug Abuse Patient Records regulations: The Federal rules restrict any use of the information to criminally investigate or prosecute any alcohol or drug abuse patient.[facility] CenterIn the event this information is protected by the Federal Confidentiality of Alcohol and Drug Abuse Patient Records regulations: The Federal rules restrict any use of the information to criminally investigate or prosecute any alcohol or drug abuse patient.[facility] CenterIn the event this information is protected by the Federal Confidentiality of Alcohol and Drug Abuse Patient Records regulations: The Federal rules restrict any use of the information to criminally investigate or prosecute any alcohol or drug abuse patient.[facility] CenterIn the event this information is protected by the Federal Confidentiality of Alcohol and Drug Abuse Patient Records regulations: The Federal rules restrict any use of the information to criminally investigate or prosecute any alcohol or drug abuse patient.[facility] CenterIn the event this information is protected by the Federal Confidentiality of Alcohol and Drug Abuse Patient Records regulations: The Federal rules restrict any use of the information to criminally investigate or prosecute any alcohol or drug abuse patient.[facility] CenterIn the event this information is protected by the Federal Confidentiality of Alcohol and Drug Abuse Patient Records regulations: The Federal rules restrict any use of the information to criminally investigate or prosecute any alcohol or drug abuse patient.[facility] CenterIn the event this information is protected by the Federal Confidentiality of Alcohol and Drug Abuse Patient Records regulations: The Federal rules restrict any use of the information to criminally investigate or prosecute any alcohol or drug abuse patient.[facility] CenterIn the event this information is protected by the Federal Confidentiality of Alcohol and Drug Abuse Patient Records regulations: The Federal rules restrict any use of the information to criminally investigate or prosecute any alcohol or drug abuse patient.[facility] CenterIn the event this information is protected by the Federal Confidentiality of Alcohol and Drug Abuse Patient Records regulations: The Federal rules restrict any use of the information to criminally investigate or prosecute any alcohol or drug abuse patient.[facility] CenterIn the event this information is protected by the Federal Confidentiality of Alcohol and Drug Abuse Patient Records regulations: The Federal rules restrict any use of the information to criminally investigate or prosecute any alcohol or drug abuse patient.[facility] CenterIn the event this information is protected by the Federal Confidentiality of Alcohol and Drug Abuse Patient Records regulations: The Federal rules restrict any use of the information to criminally investigate or prosecute any alcohol or drug abuse patient.[facility] CenterIn the event this information is protected by the Federal Confidentiality of Alcohol and Drug Abuse Patient Records regulations: The Federal rules restrict any use of the information to criminally investigate or prosecute any alcohol or drug abuse patient.[facility] CenterIn the event this information is protected by the Federal Confidentiality of Alcohol and Drug Abuse Patient Records regulations: The Federal rules restrict any use of the information to criminally investigate or prosecute any alcohol or drug abuse patient.[facility] CenterIn the event this information is protected by the Federal Confidentiality of Alcohol and Drug Abuse Patient Records regulations: The Federal rules restrict any use of the information to criminally investigate or prosecute any alcohol or drug abuse patient.[facility] CenterIn the event this information is protected by the Federal Confidentiality of Alcohol and Drug Abuse Patient Records regulations: The Federal rules restrict any use of the information to criminally investigate or prosecute any alcohol or drug abuse patient.[facility] CenterIn the event this information is protected by the Federal Confidentiality of Alcohol and Drug Abuse Patient Records regulations: The Federal rules restrict any use of the information to criminally investigate or prosecute any alcohol or drug abuse patient.[facility] CenterIn the event this information is protected by the Federal Confidentiality of Alcohol and Drug Abuse Patient Records regulations: The Federal rules restrict any use of the information to criminally investigate or prosecute any alcohol or drug abuse patient.[facility] CenterIn the event this information is protected by the Federal Confidentiality of Alcohol and Drug Abuse Patient Records regulations: The Federal rules restrict any use of the information to criminally investigate or prosecute any alcohol or drug abuse patient.[facility] CenterIn the event this information is protected by the Federal Confidentiality of Alcohol and Drug Abuse Patient Records regulations: The Federal rules restrict any use of the information to criminally investigate or prosecute any alcohol or drug abuse patient.[facility] CenterIn the event this information is protected by the Federal Confidentiality of Alcohol and Drug Abuse Patient Records regulations: The Federal rules restrict any use of the information to criminally investigate or prosecute any alcohol or drug abuse patient.[facility] CenterIn the event this information is protected by the Federal Confidentiality of Alcohol and Drug Abuse Patient Records regulations: The Federal rules restrict any use of the information to criminally investigate or prosecute any alcohol or drug abuse patient.[facility] CenterIn the event this information is protected by the Federal Confidentiality of Alcohol and Drug Abuse Patient Records regulations: The Federal rules restrict any use of the information to criminally investigate or prosecute any alcohol or drug abuse patient.[facility] CenterIn the event this information is protected by the Federal Confidentiality of Alcohol and Drug Abuse Patient Records regulations: The Federal rules restrict any use of the information to criminally investigate or prosecute any alcohol or drug abuse patient.[facility] CenterIn the event this information is protected by the Federal Confidentiality of Alcohol and Drug Abuse Patient Records regulations: The Federal rules restrict any use of the information to criminally investigate or prosecute any alcohol or drug abuse patient.[facility] CenterIn the event this information is protected by the Federal Confidentiality of Alcohol and Drug Abuse Patient Records regulations: The Federal rules restrict any use of the information to criminally investigate or prosecute any alcohol or drug abuse patient.[facility] CenterIn the event this information is protected by the Federal Confidentiality of Alcohol and Drug Abuse Patient Records regulations: The Federal rules restrict any use of the information to criminally investigate or prosecute any alcohol or drug abuse patient.[facility] the event this information is protected by the Federal Confidentiality of Alcohol and Drug Abuse Patient Records regulations: The Federal rules restrict any use of the information to criminally investigate or prosecute any alcohol or drug abuse patient.[facility] CenterIn the event this information is protected by the Federal Confidentiality of Alcohol and Drug Abuse Patient Records regulations: The Federal rules restrict any use of the information to criminally investigate or prosecute any alcohol or drug abuse patient.[facility] CenterIn the event this information is protected by the Federal Confidentiality of Alcohol and Drug Abuse Patient Records regulations: The Federal rules restrict any use of the information to criminally investigate or prosecute any alcohol or drug abuse patient.[facility]In the event this information is protected by the Federal Confidentiality of Alcohol and Drug Abuse Patient Records regulations: The Federal rules restrict any use of the information to criminally investigate or prosecute any alcohol or drug abuse patient.[facility] CenterIn the event this information is protected by the Federal Confidentiality of Alcohol and Drug Abuse Patient Records regulations: The Federal rules restrict any use of the information to criminally investigate or prosecute any alcohol or drug abuse patient.[facility] CenterIn the event this information is protected by the Federal Confidentiality of Alcohol and Drug Abuse Patient Records regulations: The Federal rules restrict any use of the information to criminally investigate or prosecute any alcohol or drug abuse patient.[facility] CenterIn the event this information is protected by the Federal Confidentiality of Alcohol and Drug Abuse Patient Records regulations: The Federal rules restrict any use of the information to criminally investigate or prosecute any alcohol or drug abuse patient.[facility] CenterIn the event this information is protected by the Federal Confidentiality of Alcohol and Drug Abuse Patient Records regulations: The Federal rules restrict any use of the information to criminally investigate or prosecute any alcohol or drug abuse patient.[facility] CenterIn the event this information is protected by the Federal Confidentiality of Alcohol and Drug Abuse Patient Records regulations: The Federal rules restrict any use of the information to criminally investigate or prosecute any alcohol or drug abuse patient.[facility] CenterIn the event this information is protected by the Federal Confidentiality of Alcohol and Drug Abuse Patient Records regulations: The Federal rules restrict any use of the information to criminally investigate or prosecute any alcohol or drug abuse patient.[facility] CenterIn the event this information is protected by the Federal Confidentiality of Alcohol and Drug Abuse Patient Records regulations: The Federal rules restrict any use of the information to criminally investigate or prosecute any alcohol or drug abuse patient.[facility] CenterIn the event this information is protected by the Federal Confidentiality of Alcohol and Drug Abuse Patient Records regulations: The Federal rules restrict any use of the information to criminally investigate or prosecute any alcohol or drug abuse patient.[facility] CenterIn the event this information is protected by the Federal Confidentiality of Alcohol and Drug Abuse Patient Records regulations: The Federal rules restrict any use of the information to criminally investigate or prosecute any alcohol or drug abuse patient.[facility] CenterIn the event this information is protected by the Federal Confidentiality of Alcohol and Drug Abuse Patient Records regulations: The Federal rules restrict any use of the information to criminally investigate or prosecute any alcohol or drug abuse patient.[facility] CenterIn the event this information is protected by the Federal Confidentiality of Alcohol and Drug Abuse Patient Records regulations: The Federal rules restrict any use of the information to criminally investigate or prosecute any alcohol or drug abuse patient.[facility] CenterIn the event this information is protected by the Federal Confidentiality of Alcohol and Drug Abuse Patient Records regulations: The Federal rules restrict any use of the information to criminally investigate or prosecute any alcohol or drug abuse patient.[facility] CenterIn the event this information is protected by the Federal Confidentiality of Alcohol and Drug Abuse Patient Records regulations: The Federal rules restrict any use of the information to criminally investigate or prosecute any alcohol or drug abuse patient.[facility] CenterIn the event this information is protected by the Federal Confidentiality of Alcohol and Drug Abuse Patient Records regulations: The Federal rules restrict any use of the information to criminally investigate or prosecute any alcohol or drug abuse patient.[facility] CenterIn the event this information is protected by the Federal Confidentiality of Alcohol and Drug Abuse Patient Records regulations: The Federal rules restrict any use of the information to criminally investigate or prosecute any alcohol or drug abuse patient.[facility] CenterIn the event this information is protected by the Federal Confidentiality of Alcohol and Drug Abuse Patient Records regulations: The Federal rules restrict any use of the information to criminally investigate or prosecute any alcohol or drug abuse patient.[facility] CenterIn the event this information is protected by the Federal Confidentiality of Alcohol and Drug Abuse Patient Records regulations: The Federal rules restrict any use of the information to criminally investigate or prosecute any alcohol or drug abuse patient.[facility] CenterIn the event this information is protected by the Federal Confidentiality of Alcohol and Drug Abuse Patient Records regulations: The Federal rules restrict any use of the information to criminally investigate or prosecute any alcohol or drug abuse patient.[facility] CenterIn the event this information is protected by the Federal Confidentiality of Alcohol and Drug Abuse Patient Records regulations: The Federal rules restrict any use of the information to criminally investigate or prosecute any alcohol or drug abuse patient.[facility] CenterIn the event this information is protected by the Federal Confidentiality of Alcohol and Drug Abuse Patient Records regulations: The Federal rules restrict any use of the information to criminally investigate or prosecute any alcohol or drug abuse patient.[facility] CenterIn the event this information is protected by the Federal Confidentiality of Alcohol and Drug Abuse Patient Records regulations: The Federal rules restrict any use of the information to criminally investigate or prosecute any alcohol or drug abuse patient.[facility] CenterIn the event this information is protected by the Federal Confidentiality of Alcohol and Drug Abuse Patient Records regulations: The Federal rules restrict any use of the information to criminally investigate or prosecute any alcohol or drug abuse patient.[facility] CenterIn the event this information is protected by the Federal Confidentiality of Alcohol and Drug Abuse Patient Records regulations: The Federal rules restrict any use of the information to criminally investigate or prosecute any alcohol or drug abuse patient.[facility] CenterIn the event this information is protected by the Federal Confidentiality of Alcohol and Drug Abuse Patient Records regulations: The Federal rules restrict any use of the information to criminally investigate or prosecute any alcohol or drug abuse patient.[facility] CenterIn the event this information is protected by the Federal Confidentiality of Alcohol and Drug Abuse Patient Records regulations: The Federal rules restrict any use of the information to criminally investigate or prosecute any alcohol or drug abuse patient.[facility] CenterIn the event this information is protected by the Federal Confidentiality of Alcohol and Drug Abuse Patient Records regulations: The Federal rules restrict any use of the information to criminally investigate or prosecute any alcohol or drug abuse patient.[facility] CenterIn the event this information is protected by the Federal Confidentiality of Alcohol and Drug Abuse Patient Records regulations: The Federal rules restrict any use of the information to criminally investigate or prosecute any alcohol or drug abuse patient.[facility] CenterIn the event this information is protected by the Federal Confidentiality of Alcohol and Drug Abuse Patient Records regulations: The Federal rules restrict any use of the information to criminally investigate or prosecute any alcohol or drug abuse patient.[facility] CenterIn the event this information is protected by the Federal Confidentiality of Alcohol and Drug Abuse Patient Records regulations: The Federal rules restrict any use of the information to criminally investigate or prosecute any alcohol or drug abuse patient.[facility] CenterIn the event this information is protected by the Federal Confidentiality of Alcohol and Drug Abuse Patient Records regulations: The Federal rules restrict any use of the information to criminally investigate or prosecute any alcohol or drug abuse patient.[facility] CenterIn the event this information is protected by the Federal Confidentiality of Alcohol and Drug Abuse Patient Records regulations: The Federal rules restrict any use of the information to criminally investigate or prosecute any alcohol or drug abuse patient.[facility] CenterIn the event this information is protected by the Federal Confidentiality of Alcohol and Drug Abuse Patient Records regulations: The Federal rules restrict any use of the information to criminally investigate or prosecute any alcohol or drug abuse patient.[facility] CenterIn the event this information is protected by the Federal Confidentiality of Alcohol and Drug Abuse Patient Records regulations: The Federal rules restrict any use of the information to criminally investigate or prosecute any alcohol or drug abuse patient.[facility] CenterIn the event this information is protected by the Federal Confidentiality of Alcohol and Drug Abuse Patient Records regulations: The Federal rules restrict any use of the information to criminally investigate or prosecute any alcohol or drug abuse patient.[facility] CenterIn the event this information is protected by the Federal Confidentiality of Alcohol and Drug Abuse Patient Records regulations: The Federal rules restrict any use of the information to criminally investigate or prosecute any alcohol or drug abuse patient.[facility] CenterIn the event this information is protected by the Federal Confidentiality of Alcohol and Drug Abuse Patient Records regulations: The Federal rules restrict any use of the information to criminally investigate or prosecute any alcohol or drug abuse patient.[facility] CenterIn the event this information is protected by the Federal Confidentiality of Alcohol and Drug Abuse Patient Records regulations: The Federal rules restrict any use of the information to criminally investigate or prosecute any alcohol or drug abuse patient.[facility] CenterIn the event this information is protected by the Federal Confidentiality of Alcohol and Drug Abuse Patient Records regulations: The Federal rules restrict any use of the information to criminally investigate or prosecute any alcohol or drug abuse patient.[facility] CenterIn the event this information is protected by the Federal Confidentiality of Alcohol and Drug Abuse Patient Records regulations: The Federal rules restrict any use of the information to criminally investigate or prosecute any alcohol or drug abuse patient.[facility] CenterIn the event this information is protected by the Federal Confidentiality of Alcohol and Drug Abuse Patient Records regulations: The Federal rules restrict any use of the information to criminally investigate or prosecute any alcohol or drug abuse patient.[facility] CenterIn the event this information is protected by the Federal Confidentiality of Alcohol and Drug Abuse Patient Records regulations: The Federal rules restrict any use of the information to criminally investigate or prosecute any alcohol or drug abuse patient.[facility] CenterIn the event this information is protected by the Federal Confidentiality of Alcohol and Drug Abuse Patient Records regulations: The Federal rules restrict any use of the information to criminally investigate or prosecute any alcohol or drug abuse patient.[facility] CenterIn the event this information is protected by the Federal Confidentiality of Alcohol and Drug Abuse Patient Records regulations: The Federal rules restrict any use of the information to criminally investigate or prosecute any alcohol or drug abuse patient.[facility] CenterIn the event this information is protected by the Federal Confidentiality of Alcohol and Drug Abuse Patient Records regulations: The Federal rules restrict any use of the information to criminally investigate or prosecute any alcohol or drug abuse patient.[facility] CenterIn the event this information is protected by the Federal Confidentiality of Alcohol and Drug Abuse Patient Records regulations: The Federal rules restrict any use of the information to criminally investigate or prosecute any alcohol or drug abuse patient.[facility] CenterIn the event this information is protected by the Federal Confidentiality of Alcohol and Drug Abuse Patient Records regulations: The Federal rules restrict any use of the information to criminally investigate or prosecute any alcohol or drug abuse patient.[facility] the event this information is protected by the Federal Confidentiality of Alcohol and Drug Abuse Patient Records regulations: The Federal rules restrict any use of the information to criminally investigate or prosecute any alcohol or drug abuse patient.[facility] CenterIn the event this information is protected by the Federal Confidentiality of Alcohol and Drug Abuse Patient Records regulations: The Federal rules restrict any use of the information to criminally investigate or prosecute any alcohol or drug abuse patient.[facility] CenterIn the event this information is protected by the Federal Confidentiality of Alcohol and Drug Abuse Patient Records regulations: The Federal rules restrict any use of the information to criminally investigate or prosecute any alcohol or drug abuse patient.[facility]In the event this information is protected by the Federal Confidentiality of Alcohol and Drug Abuse Patient Records regulations: The Federal rules restrict any use of the information to criminally investigate or prosecute any alcohol or drug abuse patient.[facility] CenterIn the event this information is protected by the Federal Confidentiality of Alcohol and Drug Abuse Patient Records regulations: The Federal rules restrict any use of the information to criminally investigate or prosecute any alcohol or drug abuse patient.[facility] CenterIn the event this information is protected by the Federal Confidentiality of Alcohol and Drug Abuse Patient Records regulations: The Federal rules restrict any use of the information to criminally investigate or prosecute any alcohol or drug abuse patient.[facility] CenterIn the event this information is protected by the Federal Confidentiality of Alcohol and Drug Abuse Patient Records regulations: The Federal rules restrict any use of the information to criminally investigate or prosecute any alcohol or drug abuse patient.[facility] CenterIn the event this information is protected by the Federal Confidentiality of Alcohol and Drug Abuse Patient Records regulations: The Federal rules restrict any use of the information to criminally investigate or prosecute any alcohol or drug abuse patient.[facility] CenterIn the event this information is protected by the Federal Confidentiality of Alcohol and Drug Abuse Patient Records regulations: The Federal rules restrict any use of the information to criminally investigate or prosecute any alcohol or drug abuse patient.[facility] CenterIn the event this information is protected by the Federal Confidentiality of Alcohol and Drug Abuse Patient Records regulations: The Federal rules restrict any use of the information to criminally investigate or prosecute any alcohol or drug abuse patient.[facility] CenterIn the event this information is protected by the Federal Confidentiality of Alcohol and Drug Abuse Patient Records regulations: The Federal rules restrict any use of the information to criminally investigate or prosecute any alcohol or drug abuse patient.[facility] CenterIn the event this information is protected by the Federal Confidentiality of Alcohol and Drug Abuse Patient Records regulations: The Federal rules restrict any use of the information to criminally investigate or prosecute any alcohol or drug abuse patient.[facility] CenterIn the event this information is protected by the Federal Confidentiality of Alcohol and Drug Abuse Patient Records regulations: The Federal rules restrict any use of the information to criminally investigate or prosecute any alcohol or drug abuse patient.[facility] CenterIn the event this information is protected by the Federal Confidentiality of Alcohol and Drug Abuse Patient Records regulations: The Federal rules restrict any use of the information to criminally investigate or prosecute any alcohol or drug abuse patient.[facility] CenterIn the event this information is protected by the Federal Confidentiality of Alcohol and Drug Abuse Patient Records regulations: The Federal rules restrict any use of the information to criminally investigate or prosecute any alcohol or drug abuse patient.[facility] CenterIn the event this information is protected by the Federal Confidentiality of Alcohol and Drug Abuse Patient Records regulations: The Federal rules restrict any use of the information to criminally investigate or prosecute any alcohol or drug abuse patient.[facility] CenterIn the event this information is protected by the Federal Confidentiality of Alcohol and Drug Abuse Patient Records regulations: The Federal rules restrict any use of the information to criminally investigate or prosecute any alcohol or drug abuse patient.[facility] CenterIn the event this information is protected by the Federal Confidentiality of Alcohol and Drug Abuse Patient Records regulations: The Federal rules restrict any use of the information to criminally investigate or prosecute any alcohol or drug abuse patient.[facility] CenterIn the event this information is protected by the Federal Confidentiality of Alcohol and Drug Abuse Patient Records regulations: The Federal rules restrict any use of the information to criminally investigate or prosecute any alcohol or drug abuse patient.[facility] Care Teams (unrecognized sec tion and content) Filling Hauler Relationship Specialty Start Date End Date Clau Baca MD [address] [place] [address] PCP - General Internal Medicine 12/27/17 Filling Hauler Relationship Specialty Start Date End Date Clau Baca MD [address] [place] [address] PCP - General Internal Medicine 12/27/17 Tree Chaparro, crime analystRestaurant Manager Internal Medicine 08/23/21 Filling Hauler Relationship Specialty Start Date End Date Clau Baca MD [address] [place] [address] PCP - General Internal Medicine 12/27/17 Tree Chaparro, crime analystRestaurant Manager Internal Medicine 08/23/21 Filling Hauler Relationship Specialty Start Date End Date Clau Baca MD [address] [place] [address] PCP - General Internal Medicine 12/27/17 Tree Chaparro, crime analystRestaurant Manager Internal Medicine 08/23/21 Filling Hauler Relationship Specialty Start Date End Date Clau Baca MD [address] [place] [address] PCP - General Internal Medicine 12/27/17 Tree Chaparro, crime analystRestaurant Manager Internal Medicine 08/23/21 Filling Hauler Relationship Specialty Start Date End Date Clau Baca MD [address] [place] [address] PCP - General Internal Medicine 12/27/17 Tree Chaparro, crime analystRestaurant Manager Internal Medicine 08/23/21 Filling Hauler Relationship Specialty Start Date End Date Clau Baca MD [address] [facility] [place] [address] PCP - General Internal Medicine 12/27/17 Tree Chaparro, crime analystRestaurant Manager Internal Medicine 08/23/21 Filling Hauler Relationship Specialty Start Date End Date Clau Baca MD [address] [facility] [place] [address] PCP - General Internal Medicine 12/27/17 Tree Chaparro, crime analystRestaurant Manager Internal Medicine 08/23/21 Filling Hauler Relationship Specialty Start Date End Date Clau Baca MD [address] [facility] [place] [address] PCP - General Internal Medicine 12/27/17 Tree Chaparro, crime analystRestaurant Manager Internal Medicine 08/23/21 Filling Hauler Relationship Specialty Start Date End Date Clau Baca MD [address] [facility] [place] [address] PCP - General Internal Medicine 12/27/17 Tree Chaparro, crime analystRestaurant Manager Internal Medicine 08/23/21 Filling Hauler Relationship Specialty Start Date End Date Clau Baca MD [address] [facility] [place] [address] PCP - General Internal Medicine 12/27/17 Tree Chaparro, crime analystRestaurant Manager Internal Medicine 08/23/21 Filling Hauler Relationship Specialty Start Date End Date Clau Baca MD [address] [place] [address] PCP - General Internal Medicine 12/27/17 Tree Chaparro, crime analystRestaurant Manager Internal Medicine 08/23/21 Filling Hauler Relationship Specialty Start Date End Date Clau Baca MD [address] [place] [address] PCP - General Internal Medicine 12/27/17 Tree Chaparro, crime analystRestaurant Manager Internal Medicine 08/23/21 Filling Hauler Relationship Specialty Start Date End Date Clau Baca MD [address] [place] [address] PCP - General Internal Medicine 12/27/17 Tree Chaparro, crime analystRestaurant Manager Internal Medicine 08/23/21 Filling Hauler Relationship Specialty Start Date End Date Clau Baca MD [address] [place] [address] PCP - General Internal Medicine 12/27/17 Tree Chaparro, crime analystRestaurant Manager Internal Medicine 08/23/21 Filling Hauler Relationship Specialty Start Date End Date Clau Baca MD [address] [place] [address] PCP - General Internal Medicine 12/27/17 Tree Chaparro, crime analystRestaurant Manager Internal Medicine 08/23/21 Filling Hauler Relationship Specialty Start Date End Date Clau Baca MD [address] [place] [address] PCP - General Internal Medicine 12/27/17 Tree Chaparro, crime analystRestaurant Manager Internal Medicine 08/23/21 Filling Hauler Relationship Specialty Start Date End Date Clau Baca MD [address] [place] [address] PCP - General Internal Medicine 12/27/17 Carmelo Leavitt, crime analystRestaurant Manager Internal Medicine 08/23/21 Filling Hauler Relationship Specialty Start Date End Date Clau Baca MD [address] [place] [address] PCP - General Internal Medicine 12/27/17 Carmelo Leavitt, crime analystRestaurant Manager Internal Medicine 08/23/21 Filling Hauler Relationship Specialty Start Date End Date Clau Baca MD [address] [facility] [place] [address] PCP - General Internal Medicine 12/27/17 Carmelo Leavitt, crime analystRestaurant Manager Internal Medicine 08/23/21 Filling Hauler Relationship Specialty Start Date End Date Clau Baca MD [address] [facility] [place] [address] PCP - General Internal Medicine 12/27/17 Carmelo Leavitt, crime analystRestaurant Manager Internal Medicine 08/23/21 Filling Hauler Relationship Specialty Start Date End Date Clau Baca MD [address] [facility] [place] [address] PCP - General Internal Medicine 12/27/17 Carmelo Leavitt, crime analystRestaurant Manager Internal Medicine 08/23/21 Filling Hauler Relationship Specialty Start Date End Date Clau Baca MD [address] [facility] [place] [address] PCP - General Internal Medicine 12/27/17 Carmelo Leavitt, crime analystRestaurant Manager Internal Medicine 08/23/21 Filling Hauler Relationship Specialty Start Date End Date Clau Baca MD [address] [facility] [place] [address] PCP - General Internal Medicine 12/27/17 Carmelo Leavitt, crime analystRestaurant Manager Internal Medicine 08/23/21 Filling Hauler Relationship Specialty Start Date End Date Clau Baca MD [address] [facility] [place] [address] PCP - General Internal Medicine 12/27/17 Carmelo Leavitt, crime analystRestaurant Manager Internal Medicine 08/23/21 Filling Hauler Relationship Specialty Start Date End Date Clau Baca MD [address] [facility] [place] [address] PCP - General Internal Medicine 12/27/17 Carmelo Leavitt, crime analystRestaurant Manager Internal Medicine 08/23/21 Filling Hauler Relationship Specialty Start Date End Date Clau Baca MD [address] [place] [address] PCP - General Internal Medicine 12/27/17 Carmelo Leavitt RN Restaurant Manager Internal Medicine 08/23/21 Filling Hauler Relationship Specialty Start Date End Date Clau Baca MD [address] [place] [address] PCP - General Internal Medicine 12/27/17 Carmelo Leavitt RN Restaurant Manager Internal Medicine 08/23/21 Team Status: Active Member Role Status Dates Dr. Clau Baca MD Family Provider Active Dr. Clau Baca MD Primary Care Provider Active Team Status: Active Member Role Status Dates Dr. Clau Baca MD Primary Care Provider Active Dr. Refugio Mathis MD Emergency Provider Active Dr. Mckenzie Neal DO Admit Provider, Attending Provide r, Other Provider Active Team Status: Inactive Member Role Status Dates Dr. Clau Baca MD Primary Care Provider Active Dr. Refugio Mathis MD Emergency Provider Active Dr. Mckenzie Neal DO Admit Provider, Attending Provide r Active Team Status: Inactive Member Role Status Dates Dr. Clau Baca MD Primary Care Provider Active Dr. Alem Hardwick MD Attending Provider, Referring P rovider Active Team Status: Inactive Member Role Status Dates Dr. Clau Baca MD Primary Care Provider Active Dr. Renzo Yun MD Emergency Provider Active Team Status: Active Member Role Status Dates Dr. Clau Baca MD Primary Care Provider Active Dr. Ramona Albright MD Emergency Provider Active Dr. Prabhakar Kimball MD Admit Provi yamilet, Attending Provider, Other Provider Active Team Status: Inactive Member Role Status Dates Dr. Clau Baca MD Primary Care Provider Active Dr. Renzo Yun MD Attending Provider, Emergency Provider Active Team Status: Active Member Role Status Dates Dr. Clau Baca MD Primary Care Provider Active Dr. Ramona Albright MD Emergency Provider Active Dr. Prabhakar Kimball MD Admit Provider, Attending Provider Active Team Status: Active Member Role Status Dates Dr. Clau Baca MD Primary Care Provider Active Dr. Ramona Albright MD Emergency Provider Active Dr. Prabhakar Kimball MD Admit Provider, Other Pro vider Active Dr. Ashley Andrade MD Attending Provider, Other Prov ider Active Team Status: Inactive Member Role Status Dates Dr. Clau Baca MD Primary Care Provider Active Dr. Ramona Albright MD Emergency Provider Active Dr. Prabhakar Kibmall MD Admit Provider, Other Pro vider Active Dr. Ashley Andrade MD Attending Provider Active Filling Hauler Relationship Specialty Start Date End Date Clau Baca MD [address] [place], [place] [id number] PCP - General Internal Medicine 12/27/17 Carmelo Leavitt RN Restaurant Manager Internal Medicine 08/23/21 Team Status: Active Member Role Status Dates Dr. Clau Baca MD Family Provider Active Dr. Ca Silva MD Primary Care Provider Active Team Status: Active Member Role Status Dates Dr. Clau Baca MD Primary Care Provider Active Dr. Ca LUNA MD Attending Provider Active Team Status: Inactive Member Role Status Dates Dr. Ca Silva MD Primary Care Provider Active Dr. Mark Cosme MD Emergency Provider Active Team Status: Inactive Member Role Status Dates Dr. Clau Baca MD Primary Care Provider Active Dr. Ca LUNA MD Attending Provider Active Team Status: Active Member Role Status Dates Dr. Ca Silva MD Primary Care Provider Active Dr. Ca LUNA MD Attending Provider Active Filling Hauler Relationship Specialty Start Date End Date Clau Baca MD [address] [place], [place] [address] PCP - General Internal Medicine 12/27/17 Carmelo Leavitt RN Restaurant Manager Internal Medicine 08/23/21 Filling Hauler Relationship Specialty Start Date End Date Clau Baca MD [address] [place], [place] [id number] PCP - General Internal Medicine 12/27/17 Carmelo Leavitt, crime analystRestaurant Manager Internal Medicine 08/23/21 Filling Hauler Relationship Specialty Start Date End Date Clau Baca MD [address] [place] [address] PCP - General Internal Medicine 12/27/17 Carmelo Leavitt, crime analystRestaurant Manager Internal Medicine 08/23/21 Filling Hauler Relationship Specialty Start Date End Date Clau Baca MD [address] [place] [address] PCP - General Internal Medicine 12/27/17 Carmelo Leavitt, crime analystRestaurant Manager Internal Medicine 08/23/21 Filling Hauler Relationship Specialty Start Date End Date Clau Baca MD [address] [place] [address] PCP - General Internal Medicine 12/27/17 Carmelo Leavitt, crime analystRestaurant Manager Internal Medicine 08/23/21 Filling Hauler Relationship Specialty Start Date End Date Clau Baca MD [address] [facility] [id number] PCP - General Internal Medicine 12/27/17 Carmelo Leavitt, crime analystRestaurant Manager Internal Medicine 08/23/21 Filling Hauler Relationship Specialty Start Date End Date Clau Baca MD [address] [place] [address] PCP - General Internal Medicine 12/27/17 Carmelo Leavitt, crime analystRestaurant Manager Internal Medicine 08/23/21 Filling Hauler Relationship Specialty Start Date End Date Clau Baca MD [address] [place] [address] PCP - General Internal Medicine 12/27/17 Carmelo Leavitt, crime analystRestaurant Manager Internal Medicine 08/23/21 01/11/23 Filling Hauler Relationship Specialty Start Date End Date Clau Baca MD [address] [place] [address] PCP - General Internal Medicine 12/27/17 Filling Hauler Relationship Specialty Start Date End Date Clau Baca MD [address] [place] [address] PCP - General Internal Medicine 12/27/17 Filling Hauler Relationship Specialty Start Date End Date Clau Baca MD [address] [place] [address] PCP - General Internal Medicine 12/27/17 Team Status: Inactive Member Role Status Dates Dr. Ca Silva MD Primary Care Provider Active Dr. Ca LUNA MD Attending Provider Active Filling Hauler Relationship Specialty Start Date End Date Clau Baca MD [address] [place] [address] PCP - General Internal Medicine 12/27/17 Team Status: Inactive Member Role Status Dates Dr. Ca Silva MD Primary Care Provider Active Dr. Ca LUNA MD Attending Provider, Referring Provider Active Filling Hauler Relationship Specialty Start Date End Date Clau Baca MD [address] [place] [address] PCP - General Internal Medicine 12/27/17 Filling Hauler Relationship Specialty Start Date End Date Clau Baca MD [address] [place] [address] PCP - General Internal Medicine 12/27/17 Filling Hauler Relationship Specialty Start Date End Date Clau Baca MD [address] [place] [address] PCP - General Internal Medicine 12/27/17 Carmelo Leavitt, crime analystRestaurant Manager Internal Medicine 08/23/21 01/11/23 Filling Hauler Relationship Specialty Start Date End Date Clau Baca MD [address] [place] [address] PCP - General Internal Medicine 12/27/17 Carmelo Leavitt, crime analystRestaurant Manager Internal Medicine 08/23/21 01/11/23 Filling Hauler Relationship Specialty Start Date End Date Clau Baca MD [address] [place] [address] PCP - General Internal Medicine 12/27/17 Filling Hauler Relationship Specialty Start Date End Date Clau Baca MD [address] [place] [address] PCP - General Internal Medicine 12/27/17 Filling Hauler Relationship Specialty Start Date End Date Clau Baca MD [address] [place] [address] PCP - General Internal Medicine 12/27/17 Filling Hauler Relationship Specialty Start Date End Date Clau Baca MD [address] [place] [address] PCP - General Internal Medicine 12/27/17 Karie Kingston, CASTILLO [address] [place] [phone] Shafting Worker Family Medicine 05/12/24 Eryn Elliott APRN.CONFLICTS ANALYST [address] [place] [address] Shafting Worker Internal Medicine 05/12/24 Sharee Araiza PA-C [address] [place] [address] Shafting Worker Family Medicine 05/12/24 Filling Hauler Relationship Specialty Start Date End Date Clau Baca MD [address] [place] [address] PCP - General Internal Medicine 12/27/17 Karie Kingston PA-C [address] [place] [address] [phone] Shafting Worker Family Medicine 05/12/24 Eryn Elliott APRN.CONFLICTS ANALYST [address] [place] [address] Shafting Worker Internal Medicine 05/12/24 Sharee Araiza PA-C [address] [place] [address] Shafting Worker Family [facility] 05/12/24 Filling Hauler Relationship Specialty Start Date End Date Clau Baca MD [address] [place] [address] PCP - General Internal Medicine 12/27/17 Karie Kingston PA-C [address] [place] [phone] Shafting Worker Family Medicine 05/12/24 Eryn Elliott APRN.CONFLICTS ANALYST [address] [place] [address] Shafting Worker Internal Medicine 05/12/24 Sharee Araiza PA-C [address] [place] [address] Shafting Worker Family [facility] 05/12/24 Filling Hauler Relationship Specialty Start Date End Date Clau Baca MD [address] [place] [address] PCP - General Internal Medicine 12/27/17 Karie Kingston PA-C [address] [place], [place] [id number] [phone] Shafting Worker Family [facility] 05/12/24 Eryn Elliott APRN.CONFLICTS ANALYST [address] [place] [address] Shafting Worker Internal Medicine 05/12/24 Sharee Araiza PA-C [address] [place] [address] [facility] 05/12/24 Filling Hauler Relationship Specialty Start Date End Date Clau Baca MD [address] [place] [address] PCP - General Internal Medicine 12/27/17 Karie Kingston PA-C [address] [place] [address] Shafting Worker Family [facility] 05/12/24 Eryn Elliott APRN.CONFLICTS ANALYST [address] [place] [address] Shafting Worker Internal Medicine 05/12/24 Sharee Araiza PA-C [address] [place] [address] Shafting Worker Family [facility] 05/12/24 Filling Hauler Relationship Specialty Start Date End Date Clau Baca MD [address] [place] [address] PCP - General Internal Medicine 12/27/17 Karie Kingston PA-C [address] [place] [address] Shafting Worker Family Medicine 05/12/24 Eryn Elliott APRN.CONFLICTS ANALYST [address] [place] [address] Shafting Worker Internal Medicine 05/12/24 Sharee Araiza PA-C [address] [place] [address] Shafting Worker Family [facility] 05/12/24 Filling Hauler Relationship Specialty Start Date End Date Clau Baca MD [address] [place] [address] PCP - General Internal Medicine 12/27/17 Karie Kingston PA-C [address] [place] [address] Shafting Worker Family Medicine 05/12/24 Eryn Elliott APRN.CONFLICTS ANALYST [address] [place] [address] Shafting Worker Internal Medicine 05/12/24 Sharee Araiza PA-C [address] [place] [address] [facility] 05/12/24 Filling Hauler Relationship Specialty Start Date End Date Clau Baca MD [address] [place], [place] 187461 PCP - General Internal Medicine 12/27/17 Karie Kingston PA-C [address] [place] [address] [facility] 05/12/24 Eryn Elliott APRN.CONFLICTS ANALYST [address] [place] [address] [facility] Internal [facility] 05/12/24 Sharee Araiza PA-C [address] [place] [address] [facility] 05/12/24 Team Status: Inactive Member Role Status Dates Dr. Ca Silva MD Primary Care Provider Active Start: October 10, 2024 End: October 10, 2024 Dr. José Miguel LUNA MD Attending Provider Active Start: October 10, 2024 End: October 10, 2024 Dr. José Miguel LUNA MD Referring Provider Active Start: October 10, 2024 End: October 10, 2024 Filling Hauler Relationship Specialty Start Date End Date Clau Baca MD [address] [place] [address] PCP - General Internal Medicine 12/27/17 Eryn Elliott APRN.CONFLICTS ANALYST [address] [place], [place] [id number] [facility] Internal [facility] 05/12/24 Filling Hauler Relationship Specialty Start Date End Date Clau Baca MD [address] [place], [place] [id number] [phone] PCP - General Internal Medicine 12/27/17 Older, JEOVANY Cerna.CONFLICTS ANALYST [address] [place] [address] Shafting Worker Internal Medicine 05/12/24 Reason for Visit (unrecogniz ed section and content) Reason Onset Date Comments Community Monitoring Outreach 08/23/2021 Br onchitis CDM Enrollment Reason Onset Date Comments Community Monitoring Outreach 09/03/2021 CK D CDM Reason Comments Imm/Inj Reason Onset Date Comments Refill Request 09/05/2021 Reason Onset Date Comments Community Monitoring Outreach 09/13/2021 CK D CDM Outreach Reason Onset Date Comments Insight Escalation 09/30/2021 Care Companio n Questionnaire Triggered call Reason Comments Appointment Cancelled Reason Comments Orders Reason Comments Lab Orders Patient Update Reason Comments Results Reason Onset Date Comments Community Monitoring Outreach 11/02/2021 CK D / GIB CDM Outreach Reason Onset Date Comments Community Monitoring Outreach 11/08/2021 CK D CDM Outreach Reason Comments Knee Pain Reason Onset Date Comments Community Monitoring Outreach 11/22/2021 CK D CDM Outreach Reason Onset Date Comments Community Monitoring Outreach 11/30/2021 CK D CDM Outreach Reason Comments Recheck Follow up Reason Comments Established Patient Reason Comments Results Elevated serum Cr Reason Onset Date Comments Community Monitoring Outreach 01/05/2022 CK D CDM Outreach Reason Comments Recheck Medication follow up Reason Onset Date Comments Refill Request 02/02/2022 Reason Onset Date Comments Refill Request 02/20/2022 Reason Comments CARD New Patient Consult No issues Reason Onset Date Comments Refill Request 03/14/2022 Reason Comments Refill Request Reason Onset Date Comments Community Monitoring Outreach 04/05/2022 Reason Comments Blood Pressure Check Reason Comments Patient Update Reason Comments [facility] agree to follow request Reason Comments Home Health Point of Care Results Orders Reason Comments Social Work Delay of Care Reason Comments [facility] OT POC Reason Comments Results CBC Reason Onset Date Comments Refill Request 08/09/2022 Reason Onset Date Comments Community Monitoring Outreach 09/02/2022 Reason Comments Question Reason Comments Appointment Reason Comments New C/O a little numbnes s, Knee Pain C/O a little numbnes s, Swelling C/O a little numbnes s, Numbness C/O a little numbnes s, Reason Comments AVS 12/12 Reason Onset Date Comments Community Monitoring Outreach 01/05/2023 Reason Comments Radio Gen RMP Specialty Diagnoses / Procedures Referred By Contac t Referred To Contact XR IMAGING Diagnoses Infection and inflammatory reaction due to internal left knee prosthesis, subsequent encounter Procedures XR KNEE POST OP 3V AP/LAT/MERCHANT LT X-RAY KNEE 3+ VW Anatoly Brown, DO [address] [place] [address] [place] [address] Referral ID Status Reason Start Date Expiration Date V isits Requested Visits Authorized [id number] Closed Auto-Generate d Referral 01/15/2021 02/14/2022 1 1 Reason Comments Non-Chemotherapy Treatment Specialty Diagnoses / Procedures Referred By Contac t Referred To Contact Diagnoses Anemia due to stage 3b chronic kidney disease (HCC) (HCC) History of gastric bypass Iron malabsorption Raman Caruso, DO [address] [place] [address] [facility] [address] [place] [address] Referral ID Status Reason Start Date Expiration Date V isits Requested Visits Authorized [id number] Authorized 05/21/2024 08/19/2024 99 99 Specialty Diagnoses / Procedures Referred By Contac t Referred To Contact Diagnoses Anemia due to stage 3b chronic kidney disease (HCC) (HCC) History of gastric bypass Iron malabsorption Raman Caruso, DO [address] [place] [address] [facility] [address] [place] [address] Reason Comments Fax Labs Reason Comments Electronic Communication Goals (unrecognized section and content) Goals may be documented in a n alternate sectionGoals may be documented in an alternate sectionGoals may be documented in an alternate sectionGoals may be documented in an alternate sectionGoals may be documented in an alternate sectionGoals may be documented in an alternate section FOR RECORDS PERTAINING TO PATIENTS WHO ARE OR HAVE BEEN ENROLLED IN A CHEMICAL DEPENDENCY/SUBSTANCEABUSE PROGRAM, SOME INFORMATION MAY BE OMITTED. This clinical summary was aggregated from multiple sources. Caution should be exercised in using it in the provision of clinical care. This summary normalizes information from multiple sources, and as a consequence, information in this document may materially change the coding, format and clinical context of patient data. In addition, data may be omitted in some cases. CLINICAL DECISIONS SHOULD BE BASED ON THE PRIMARY CLINICAL RECORDS. [facility]. provides no warranty or guarantee of the accuracy or completeness of information in this document.
[2025-05-20 09:08] LABS: Vitamin B12 353 pg/mL (180-914)
== END ==
LOC: OLS.SW 05:00
PROVIDERS: PCP Internal Medicine; Visit Provider Family Medicine
DX: M62.81 Muscle weakness (generalized) (principal); R26.89 Other abnormalities of gait and mobility; G20.A1 Parkinson's disease without dyskinesia, without mention of fluctuations
CPT/HCPCS: 36415; 82607

== ENCOUNTER → 2025-05-27 05:00 | Outpatient (REF) | payer MEDICARE, OTHER, MEDICAID, SELFPAY ==
--- OUTSIDE RECORDS SUMMARY | 2025-05-27 04:21 | XMS RPT_ITS | CCD ---
Author Organization [facility] Care Team Providers Care Receiver Setter Name Role Phone CASTILLO Lr, Violeta Fraire [...] Provider Dr. Ramona Albright Emergency Provider Dr. Parbhakar Kimball Admit Provider Dr. Prabhakar Kimball Attending Provider Dr. Prabhakar Kimball Other Provider Dr. Ashley Andrade Attending Provider Dr. Ashley Andrade Other Provider Keven MORENO, [facility] Primary Care Provider Tree RN, Carmelo Fraire Unavailable Unavailabl e Keven MORENO, [facility] Primary Care Provider Vashti CHONG, Karie Alberts Unavailable [phone] Older BOAT RENTAL CLERK.INDUSTRIAL WASTE TREATMENT TECHNICIAN, Eryn Unavailable Sharee Araiza PA-C Unavailable Dr. [...] Unavailable José Miguel Orta Attending Unavailable [place]ud[place], [facility] Primary [facility] Unavailable José Miguel Orta Attending Unavailable [place], [facility] Primary Care Unavailable Ezequiel Silvayothi Primary Care Unavailable José Miguel Orta Referring Unavailable José Miguel Orta Attending Unavailable Allergies Allergy Classification Reported Allergen(s) Allergy Type Date of Onset Reaction(s) Facility (20 sources) amoxicillin; Translations: [AMOXICILLIN] Drug Allergy 7 Itching [facility] Work Phone: (20 sources) Penicillins; Translations: [PENICILLINS] Drug Allergy 9 Rash, Itching [facility] (20 sources) Penicillins Drug Allergy 9 Rash, Itching [facility] (10 sources) Penicillins Allergy to substance [address] [facility] (2 sources) Penicillins Drug Allergy 9 Rash, Itching [facility] (1 source) Penicillins Drug allergy (disorder) [address] [facility] Repository Medications Current Medications Medication Drug [...] mouth for the next 4 days AZITHROMYCIN [id number] Violeta Lr PA-C CELECOXIB CAPS (1 source) Nonsteroidal Anti-inflammatory Drug Start: 01-24-20 13 CELEBREX CAPS CELECOXIB CAPS [id number] Shannan Michael citalopram 10 mg oral tablet (20 sources) Serotonin Reuptake Inhibitor Start: 12-24-19 End: 01-11-20 take 1 tablet by mouth once daily citalopram hydrobromide (CELEXA) 10 mg tablet Indications: Anxiety and depression Take 1 tablet by mouth once daily. 90 tablet 3 10/02/2020 01/10/2022 Discontinued (Discontinued by Patient) Start: 01-23-2013 CELEXA TABS 20 15/01/21 CITALOPRAM HYDROBROMIDE TABS [id number] Shannan Michael Comment on above: Take 1 tablet by [facility] once daily. Comp.Stocking,Thi gh,Long,Small misc (2 sources) [...] on above: Take 1 capsule by mo [facility] twice daily. doxycycline hyclate 100 mg oral [...] on above: Take 1 capsule by mo [facility] twice daily. Instructed by ortho to take 1 year after surgery Take 1 capsule by mo [facility] twice daily Take 1 tablet by [facility] twice daily. fluticasone propionate 0.05 mg/actuat metered [...] 1:00am August 23, 2022 9:58am Start: 05-30-2022 [facility] chlorothiazide Active TABLET May 30, 2022 12:00am [...] hydrochloride 5 mg oral tablet (9 sources) G-dhilax-T-aspartat e Receptor Antagonist Start: 12-10-2021 End: 01-12-2022 [...] to internal left knee prosthesis, initial encounter ([facility]) Take 1-2 tablets by mouth every 6 [...] Comment on above: Take 1 tablet by [facility] once daily. SENNA-DOCUSATE SODIUM ORAL (2 sources) End: 07-09-2021 SENNA-DOCUSATE SODIUM ORAL Take by mouth as needed. 0 07/09/2021 Discontinued Comment on above: Take by mouth as nee ded. sennosides, halfway 8.6 mg oral tablet (20 sources) Start: 02-17-2021 End: 01-10-2022 take 2 tablets by mouth once daily at bedtime senna (SENOKOT) 8.6 mg tab Take 2 tablets by mouth daily at bedtime. 02/17/2021 01/10/2022 Discontinued (Discontinued by Patient) Comment on above: Take 2 tablets by mo [facility] daily at bedtime. 125 ml sodium chloride 9 mg/ml prefilled syringe (20 sources) Start: 03-01-2022 End: 05-31-2023 sodium chloride 0.9 % (flush) 10 mL (BD POSIFLUSH) Start: 11-04-2020 End: 02-03-2022 sodium chloride 0.9 % (flush ) 10 mL (BD POSIFLUSH) SOLIFENACIN SUCCINATE TABS (1 source) Cholinergic Muscarinic Antagonist Start: 01-23-2013 VESICARE TABS SOLIFENACIN SUCCINATE TABS [id number] Shannan Michael trospium chloride 20 mg oral tablet (2 sources) Cholinergic Muscarinic Antagonist Start: 02-17-2021 End: 06-17-2021 take 1 tablet by mouth twice daily before mealtime trospium (SANCTURA) 20 mg tablet Take 1 tablet by mouth twice daily before meals. 0 02/17/2021 06/17/2021 Discontinued (Course of therapy completed) Comment on above: Take 1 tablet by [facility] twice daily before meals. VALSARTAN TABS (1 source) Angiotensin 2 Receptor Kenia Start: 01-23-2013 DIOVAN TABS VALSARTAN TABS [id number] Shannan Michael vibegron (GEMTESA) 75 mg tablet [...] Coronary atherosclerosis; Translations: [Atherosclerotic heart disease of [place] coronary artery without angina pectoris] Onset: 8 [...] Acute and unspecified renal failure (20 sources) [id number] renal failure; Translations: [Acute kidney failure, unspecified] [...] )on 03-04-2025 BUN/CRE 30.1 RATIO High 10-[address] [facility] Comment on above: Order Comment: 502.1 Performed By: #### L 500.2500, L100.0500 #### [facility] [address] [place], [address] Calcium [Mass/Vol] 8.1 mg/dL Normal 7.6-11.0 [facility] Comment on above: Order Comment: 502.1 Performed By: #### L 500.2500, L100.0500 #### [facility] [address] [place], [address] Chloride [Moles/Vol] 114 mmol/L High 98-108 [facility] Comment on above: Order Comment: 502.1 Performed By: #### L 500.2500, L100.0500 #### [facility] [address] [place], [address] CO2 [Moles/Vol] 15.6 mmol/L Low 21.0-32.[address] [facility] Comment on above: Order Comment: 502.1 Performed By: #### L 500.2500, L100.0500 #### [facility] [address] [place], [address] Creatinine [Mass/Vol] 1.39 mg/dL High 0.70-1.20 [facility] Comment on above: Order Comment: 502.1 Performed By: #### L 500.2500, L100.0500 #### [facility] [address] [place], [address] GAP 10 Normal 5-[address] [facility] Comment on above: Order Comment: 502.1 Performed By: #### L 500.2500, L100.0500 #### [facility] [address] [place], [address] GFR/1.73 sq M.predicted among non-blacks MDRD (S/P/Bld) [Vol rate/Area] 38 mL/min/{1.73_m2} Low >[address] [facility] Comment on above: Order Comment: 502.1 Result Comment: mL/m in/1.73m2 CKD-EPI Creatinine Equation (2020) Performed By: #### L 500.2500, L100.0500 #### [facility] [address] [place], [address] Glucose [Mass/Vol] 78 mg/dL Normal 70-99 [facility] Comment on above: Order Comment: 502.1 Performed By: #### L 500.2500, L100.0500 #### [facility] [address] [place], [address] Potassium [Moles/Vol] 4.6 mmol/L Normal 3.3-5.1 [facility] Comment on above: Order Comment: 502.1 Result Comment: Hemo lysis present, Results??could be affected. ?? Performed By: #### L 500.2500, L100.0500 #### [facility] [address] [place], [address] Sodium [Moles/Vol] 140 mmol/L Normal 133-145 [facility] Comment on above: Order Comment: 502.1 Performed By: #### L 500.2500, L100.0500 #### [facility] [address] [place], [address] Urea nitrogen [Mass/Vol] 42 mg/dL High 4-[address] [facility] Comment on above: Order Comment: 502.1 Performed By: #### L 500.2500, L100.0500 #### [facility] [address] [place], [address] CBC-Complete Blood Cnt No Di ffon 03-04-2025 Erythrocyte distribution width (RBC) [Ratio] 12.3 % Normal 11.6-14.[address] [facility] Comment on above: Order Comment: 502.1 Performed By: #### L 500.2500, L100.0500 #### [facility] [address] [place], [address] Hematocrit (Bld) [Volume fraction] 27.0 % Low 37-[address] [facility] Comment on above: Order Comment: 502.1 Performed By: #### L 500.2500, L100.0500 #### [facility] [address] [place], [address] Hemoglobin (Bld) [Mass/Vol] 8.3 g/dL Low 12.0-15.[address] [facility] Comment on above: Order Comment: 502.1 Performed By: #### L 500.2500, L100.0500 #### [facility] [address] [place], [address] MCH (RBC) [Entitic mass] 33.6 pg High 27.0-32.[address] [facility] Comment on above: Order Comment: 502.1 Performed By: #### L 500.2500, L100.0500 #### [facility] [address] [place], [address] MCHC (RBC) [Mass/Vol] 30.7 g/dL Low 32-36 [facility] Comment on above: Order Comment: 502.1 Performed By: #### L 500.2500, L100.0500 #### [facility] [address] [place], [address] MCV (RBC) [Entitic vol] 109.3 fL High 81-99 [facility] Comment on above: Order Comment: 502.1 Performed By: #### L 500.2500, L100.0500 #### [facility] [address] [place], [address] Platelet mean volume (Bld) [Entitic vol] 11.8 fL Normal 6.2-12.[address] [facility] Comment on above: Order Comment: 502.1 Performed By: #### L 500.2500, L100.0500 #### [facility] [address] [place], [address] Platelets (Bld) [#/Vol] 140 10*3/uL Low 150-[address] [facility] Comment on above: Order Comment: 502.1 Performed By: #### L 500.2500, L100.0500 #### [facility] [address] [place], [address] RBC (Bld) [#/Vol] 2.47 10*6/uL Low 4.2-5.4 [facility] Comment on above: Order Comment: 502.1 Performed By: #### L 500.2500, L100.0500 #### [facility] [address] [place], [address] RDW SD 49.5 fl High 35.1-43.[address] [facility] Comment on above: Order Comment: 502.1 Performed By: #### L 500.2500, L100.0500 #### [facility] [address] [place], [address] WBC (Bld) [#/Vol] 3.7 10*3/uL Low 4.4-11.0 [facility] Comment on above: Order Comment: 502.1 Performed By: #### L 500.2500, L100.0500 #### [facility] [address] [place], [address] Basic Metabolic Profile (BMP )on 12-10-2024 BUN/CRE 31.9 RATIO High 10-[address] [facility] Comment on above: Order Comment: 502.1 Performed By: #### L 100.0500, L500.2500 #### [facility] [address] [place], [address] Calcium [Mass/Vol] 8.5 mg/dL Normal 7.6-11.0 [facility] Comment on above: Order Comment: 502.1 Performed By: #### L 100.0500, L500.2500 #### [facility] [address] [place], [address] Chloride [Moles/Vol] 111 mmol/L High 98-108 [facility] Comment on above: Order Comment: 502.1 Performed By: #### L 100.0500, L500.2500 #### [facility] [address] [place], [address] CO2 [Moles/Vol] 17.5 mmol/L Low 21.0-32.[address] [facility] Comment on above: Order Comment: 502.1 Performed By: #### L 100.0500, L500.2500 #### [facility] [address] [place], [address] Creatinine [Mass/Vol] 1.50 mg/dL High 0.70-1.20 [facility] Comment on above: Order Comment: 502.1 Performed By: #### L 100.0500, L500.2500 #### [facility] [address] [place], [address] GAP 12 Normal 5-[address] [facility] Comment on above: Order Comment: 502.1 Performed By: #### L 100.0500, L500.2500 #### [facility] [address] [place], [address] GFR/1.73 sq M.predicted among non-blacks MDRD (S/P/Bld) [Vol rate/Area] 35 mL/min/{1.73_m2} Low >[address] [facility] Comment on above: Order Comment: 502.1 Result Comment: mL/m in/1.73m2 CKD-EPI Creatinine Equation (2020) Performed By: #### L 100.0500, L500.2500 #### [facility] [address] [place], [address] Glucose [Mass/Vol] 70 mg/dL Normal 70-99 [facility] Comment on above: Order Comment: 502.1 Performed By: #### L 100.0500, L500.2500 #### [facility] [address] [place], [address] Potassium [Moles/Vol] 4.9 mmol/L Normal 3.3-5.1 [facility] Comment on above: Order Comment: 502.1 Result Comment: Hemo lysis present, Results??could be affected. ?? Performed By: #### L 100.0500, L500.2500 #### [facility] [address] [place], [address] Sodium [Moles/Vol] 140 mmol/L Normal 133-145 [facility] Comment on above: Order Comment: 502.1 Performed By: #### L 100.0500, L500.2500 #### [facility] [address] [place], [address] Urea nitrogen [Mass/Vol] 48 mg/dL High 4-[address] [facility] Comment on above: Order Comment: 502.1 Performed By: #### L 100.0500, L500.2500 #### [facility] [address] [place], [address] CBC-Complete Blood Cnt No Di ffon 12-10-2024 Erythrocyte distribution width (RBC) [Ratio] 12.6 % Normal 11.6-14.[address] [facility] Comment on above: Order Comment: 502.1 Performed By: #### L 100.0500, L500.2500 #### [facility] [address] [place], [address] Hematocrit (Bld) [Volume fraction] 31.6 % Low 37-[address] [facility] Comment on above: Order Comment: 502.1 Performed By: #### L 100.0500, L500.2500 #### [facility] [address] [place], [address] Hemoglobin (Bld) [Mass/Vol] 9.3 g/dL Low 12.0-15.[address] [facility] Comment on above: Order Comment: 502.1 Performed By: #### L 100.0500, L500.2500 #### [facility] [address] [place], [address] MCH (RBC) [Entitic mass] 34.2 pg High 27.0-32.[address] [facility] Comment on above: Order Comment: 502.1 Performed By: #### L 100.0500, L500.2500 #### [facility] [address] [place], [address] MCHC (RBC) [Mass/Vol] 29.4 g/dL Low 32-36 [facility] Comment on above: Order Comment: 502.1 Performed By: #### L 100.0500, L500.2500 #### [facility] [address] [place], [address] MCV (RBC) [Entitic vol] 116.2 fL High 81-99 [facility] Comment on above: Order Comment: 502.1 Performed By: #### L 100.0500, L500.2500 #### [facility] [address] [place], [address] Platelet mean volume (Bld) [Entitic vol] 11.7 fL Normal 6.2-12.[address] [facility] Comment on above: Order Comment: 502.1 Performed By: #### L 100.0500, L500.2500 #### [facility] [address] [place], [address] Platelets (Bld) [#/Vol] 150 10*3/uL Normal 150-[address] [facility] Comment on above: Order Comment: 502.1 Performed By: #### L 100.0500, L500.2500 #### [facility] [address] [place], [address] RBC (Bld) [#/Vol] 2.72 10*6/uL Low 4.2-5.4 [facility] Comment on above: Order Comment: 502.1 Performed By: #### L 100.0500, L500.2500 #### [facility] [address] [place], [address] RDW SD 53.9 fl High 35.1-43.[address] [facility] Comment on above: Order Comment: 502.1 Performed By: #### L 100.0500, L500.2500 #### [facility] [address] [place], [address] WBC (Bld) [#/Vol] 4.4 10*3/uL Normal 4.4-11.0 [facility] Comment on above: Order Comment: 502.1 Performed By: #### L 100.0500, L500.2500 #### [facility] [address] [place], [address] Anion gap in Serum or Plasma Ordered By: José Miguel Hankins on 10-10-2024 Anion gap [Moles/Vol] 10 mmol/L 5-15 [facility] BUN/creatinine ratioOrdered By: José Miguel Hankins on 10-10-2024 Urea nitrogen/Creatinine [Mass ratio] 40.7 mg/mg High 10-[address] [facility] Basic Metabolic Profile (BMP )on 10-10-2024 BUN/CRE 40.7 RATIO High 10-[address] [facility] Comment on above: Performed By: #### L 506.1001, L501.5200, L501.9985, L500.2500 #### [facility] [address] [place], [address] Calcium [Mass/Vol] 8.1 mg/dL Normal 7.6-11.0 [facility] Comment on above: Performed By: #### L 506.1001, L501.5200, L501.9985, L500.2500 #### [facility] [address] [place], [address] Chloride [Moles/Vol] 112 mmol/L High 98-108 [facility] Comment on above: Performed By: #### L 506.1001, L501.5200, L501.9985, L500.2500 #### [facility] [address] [place], [address] CO2 [Moles/Vol] 19.3 mmol/L Low 21.0-32.[address] [facility] Comment on above: Performed By: #### L 506.1001, L501.5200, L501.9985, L500.2500 #### [facility] [address] [place], [address] Creatinine [Mass/Vol] 1.62 mg/dL High 0.70-1.20 [facility] Comment on above: Performed By: #### L 506.1001, L501.5200, L501.9985, L500.2500 #### [facility] [address] [place], [address] GAP 10 Normal 5-[address] [facility] Comment on above: Performed By: #### L 506.1001, L501.5200, L501.9985, L500.2500 #### [facility] [address] [place], [address] GFR/1.73 sq M.predicted among non-blacks MDRD (S/P/Bld) [Vol rate/Area] 32 mL/min/{1.73_m2} Low >[address] [facility] Comment on above: Result Comment: mL/m in/1.73m2 CKD-EPI Creatinine Equation (2020) Performed By: #### L 506.1001, L501.5200, L501.9985, L500.2500 #### [facility] [address] [place], [address] Glucose [Mass/Vol] 83 mg/dL Normal 70-99 [facility] Comment on above: Performed By: #### L 506.1001, L501.5200, L501.9985, L500.2500 #### [facility] [address] [place], [address] Potassium [Moles/Vol] 4.3 mmol/L Normal 3.3-5.1 [facility] Comment on above: Performed By: #### L 506.1001, L501.5200, L501.9985, L500.2500 #### [facility] [address] [place], [address] Sodium [Moles/Vol] 141 mmol/L Normal 133-145 [facility] Comment on above: Performed By: #### L 506.1001, L501.5200, L501.9985, L500.2500 #### [facility] [address] [place], [address] Urea nitrogen [Mass/Vol] 66 mg/dL High 4-[address] [facility] Comment on above: Performed By: #### L 506.1001, L501.5200, L501.9985, L500.2500 #### [facility] [address] [place], [place], [id number] Carbon dioxide, total [Moles /volume] in Central venous bloodOrdered By: José Miguel Hankins on 10-10-2024 CO2 [Moles/Vol] 19.3 mmol/L Low 21.0-32.[address] [facility] Chloride assayOrdered By: Chip Hankins on 10-10-2024 Chloride [Moles/Vol] 112 mmol/L High 98-108 [facility] Glomerular filtration rate ( GFR) estimation/1.73 sq m using serum, plasma, or whole bOrdered By: José Miguel Hankins on 10-10-2024 GFR/1.73 sq M.predicted among non-blacks MDRD (S/P/Bld) [Vol rate/Area] 32 mL/min/{1.73_m2} Low >[address] [facility] Comment on above: mL/min/1.73m2 CKD-EP I Creatinine Equation (2020) Hemoglobin A1con 10-10-2024 HbA1c (Bld) [Mass fraction] 4.5 % Normal <=5.[address] [facility] Comment on above: Result Comment: Norm al < 5.7 % Prediabetic 5.7 - 6.4 % Diabetic >or= 6.5 % Please note range changes. Performed By: #### L 506.1001, L501.5200, L501.9985, L500.2500 #### [facility] [address] [place], [place], [id number] Hemoglobin A1c percentageOrd ered By: José Miguel Hankins on 10-10-2024 HbA1c (Bld) [Mass fraction] 4.5 % <5.[address] [facility] Comment on above: Normal < 5.7 % Predi abetic 5.7 - 6.4 % Diabetic >or= 6.5 % Please note range changes. Magnesiumon 10-10-2024 Magnesium [Mass/Vol] 2.3 mg/dL High 1.5-2.2 [facility] Comment on above: Performed By: #### L 506.1001, L501.5200, L501.9985, L500.2500 #### [facility] [address] [place], [address] Magnesium measurement (mass/ volume)Ordered By: José Miguel Hankins on 10-10-2024 Magnesium (Unsp spec) [Mass/Vol] 2.3 mg/dL High 1.5-2.[address] [facility] Potassium measurement (mass/ volume)Ordered By: José Miguel Hankins on 10-10-2024 Potassium (Unsp spec) [Mass/Vol] 4.3 mmol/L 3.3-5.[address] [facility] Serum creatinine measurement (mass/volume)Ordered By: José Miguel Hankins on 10-10-2024 Creatinine [Mass/Vol] 1.62 mg/dL High 0.70-1.20 [facility] Serum glucose measurement (m ass/volume)Ordered By: José Miguel Hankins on 10-10-2024 Glucose [Mass/Vol] 83 mg/dL 70-99 [facility] Serum or plasma calcium huyen urement (mass/volume)Ordered By: José Miguel Hankins on 10-10-2024 Calcium [Mass/Vol] 8.1 mg/dL 7.6-11.0 [facility] Serum or plasma urea nitroge n measurement (mass/volume)Ordered By: José Miguel Hankins on 10-10-2024 Urea nitrogen [Mass/Vol] 66 mg/dL High 4-[address] [facility] Sodium levelOrdered By: Jimmie Hankins on 10-10-2024 Sodium [Moles/Vol] 141 mmol/L 133-145 [facility] Vitamin D,25 Hydroxyon 10-10 Vitamin D 25-OH 48.5 ng/mL Normal 30-[address] [facility] Comment on above: Result Comment: Octavia min D Status Deficiency: <20 ng/mL (50nmol/L) Insufficiency: 20-30 ng/mL (50-75 nmol/L) Sufficiency: 30-100 ng/mL (75-250 nmol/L) Toxicity: >100 ng/mL (>250 nmol/L) Performed By: #### L 506.1001, L501.5200, L501.9985, L500.2500 #### [facility] [place], [address] Valeria 08-01-2024 BA Telephone (ERIC) MAIA NIETO ([id number]) 1945 F Date Time Provider Department 08/01/24 RAMAN CARUSO During your visit today, we recorded the following information about you: Raman Caruso DO 08/01/2024 5:44 PM Signed Folate low. Start Rx folic acid. DO Casper Randolph Melanie, LPN 08/02/2024 8:38 AM Signed [employer] message sent. I also left a message fro her to contact the office. DULCE Arcos Angela 08/02/2024 11:24 AM Signed Patient's daughter called stating the patient lives in [facility] and is asking if we are able to send the information to them. Please call daughter Cristina [phone] to advise. Kira Kaye LPN 08/02/2024 12:26 PM Signed I spoke with patient's nurse, Mattie, at [facility] and gave her orders for folic acid. [...] Overactive bladder [N32.81] Coronary artery disease involving manzanita quintanilla*12/27/2017 Restless legs syndrome [G25.81] 12/27/2017 Anemia due to stage 3b chronic kidney disease (*05/01/2018 Bronchitis [J40] 08/08/2018 04/08/2022 S/P AVR [Z95.2] 11/29/2018 GI bleed [K92.2] 12/05/2018 12/23/2018 ODELL (iron deficiency anemia) [D50.9] 12/05/2018 03/27/2020 Elevated troponin [R79.89] 12/06/2018 (more content not included)... Normal [facility] CBC W Auto Differential pane l (Bld)on 12-04-2023 Basophils (Bld) [#/Vol] 0.04 10*3/uL [facility] Basophils/100 WBC (Bld) 0.8 % C [facility] Differential cell count method Nom (Bld) Auto [facility] Eosinophils (Bld) [#/Vol] 0.22 10*3/uL [facility] Eosinophils/100 WBC (Bld) 4.6 % [facility] Erythrocyte distribution width (RBC) [Ratio] 12.8 % 11.5 - 15.0 % [facility] Hematocrit (Bld) [Volume fraction] 31.6 % Low 36.0 - 46.0 % [facility] Hemoglobin (Bld) [Mass/Vol] 9.9 g/dL Low 11.5 - 15.5 g/dL [facility] Immature granulocytes (Bld) [#/Vol] [facility] Immature granulocytes/100 WBC (Bld) 0.4 % [facility] Interpretation and review of laboratory results Abnormal [facility] Lymphocytes (Bld) [#/Vol] 0.97 10*3/uL Low [facility] Lymphocytes/100 WBC (Bld) 20.5 % [facility] MCH (RBC) [Entitic mass] 30.7 pg 26. 0 - 34.0 pg [facility] MCHC (RBC) [Mass/Vol] 31.3 g/dL 30.5 - 36.0 g/dL [facility] MCV (RBC) [Entitic vol] 98.1 fL 80.0 - 100.0 fL [facility] Monocytes (Bld) [#/Vol] 0.34 10*3/uL [facility] Monocytes/100 WBC (Bld) 7.2 % C [facility] Neutrophils (Bld) [#/Vol] 3.15 10*3/uL [facility] Neutrophils/100 WBC (Bld) 66.5 % [facility] Nucleated RBC (Bld) [#/Vol] [facility] Nucleated RBC/100 WBC (Bld) [Ratio] 0.0 % /100 WBC [facility] Platelet mean volume (Bld) [Entitic vol] 11.0 fL 9.0 - 12.7 fL [facility] Platelets (Bld) [#/Vol] 191 10*3/uL [facility] RBC (Bld) [#/Vol] 3.22 10*6/uL Low 3.90 - 5.2 0 m/uL [facility] WBC (Bld) [#/Vol] 4.74 10*3/uL [facility] Basophil percentageOrdered B y: Ca Silva on 09-04-2023 Chloride [Moles/Vol] 112 mmol/L 98-107 [facility] Glucose [Mass/Vol] 77 mg/dL 74-106 [facility] Hemoglobin (Bld) [Mass/Vol] 8.5 g/dL 12.0-15.[address] [facility] Potassium [Moles/Vol] 3.9 mmol/L 3.5-5.1 [facility] Sodium [Moles/Vol] 141 mmol/L 136-145 [facility] WBC (Bld) [#/Vol] 4.5 10*3/uL 4.4-11.0 [facility] Determination of erythrocyte mean corpuscular volume (MCV)Ordered By: Ca Silva on 09-04-2023 MCV (RBC) [Entitic vol] 100.4 fL 81-99 [facility] Erythrocyte distribution wid th ratioOrdered By: Ca Silva on 09-04-2023 Erythrocyte distribution width (RBC) [Ratio] 12.5 % 11.6-14.[address] [facility] Erythrocyte distribution wid th standard deviationOrdered By: Ca Silva on 09-04-2023 Erythrocyte distribution width (RBC) [Entitic vol] 46.1 fL 35.1-43.[address] [facility] Hematocrit Auto (Bld) [Volum e fraction]Ordered By: Ca Silva on 09-04-2023 Hematocrit (Bld) [Volume fraction] 26.3 % 37-[address] [facility] Laboratory - Chemistry and C hemistry - challengeOrdered By: Ca Silva on 09-04-2023 CO2 [Moles/Vol] 23.0 mmol/L 21.0-32.[address] [facility] Urea nitrogen/Creatinine [Mass ratio] 24.8 mg/mg 10-[address] [facility] Laboratory - Hematology and Cell countsOrdered By: Ca Silva on 09-04-2023 MCH (RBC) [Entitic mass] 32.4 pg 27.0-32.[address] [facility] MCHC (RBC) [Mass/Vol] 32.3 g/dL 32-36 [facility] Platelet mean volume (Bld) [Entitic vol] 11.3 fL 6.2-12.[address] [facility] Platelets (Bld) [#/Vol] 152 10*3/uL 150-[address] [facility] No Panel InformationOrdered By: Ca Silva on 09-04-2023 Estimated GFR (MDRD) Amer 46 mL/min >[address] [facility] Comment on above: GFR Calc Estimated GFR (MDRD) Non-Af Amer 38 mL/min >[address] [facility] Comment on above: Non- GFR Calc RBC Auto (Bld) [#/Vol]Ordere d By: Ca Silva on 09-04-2023 RBC (Bld) [#/Vol] 2.62 10*6/uL 4.2-5.4 [facility] Serum or plasma calcium huyen urement (mass/volume)Ordered By: Ca Silva on 09-04-2023 Calcium [Mass/Vol] 8.3 mg/dL 8.5-10.1 [facility] Serum or plasma creatinine m easurement (mass/volume)Ordered By: Ca Silva on 09-04-2023 Creatinine [Mass/Vol] 1.41 mg/dL 0.55-1.02 [facility] Comment on above: The validity of the calculated GFR & GFRAA in patients over 70 years has not been determined. Clinical correlation is essential. Serum or plasma thyroid stim ulating hormone (TSH) measurement (units/volume)Ordered By: Ca Silva on 09-04-2023 TSH Qn 2.26 uIU/mL 0.358-3.[address] [facility] Serum or plasma urea nitroge n measurement (mass/volume)Ordered By: Ca Silva on 09-04-2023 Urea nitrogen [Mass/Vol] 35 mg/dL 7-[address] [facility] Thin prep Papanicolaou smear with manual screeningOrdered By: Ca Silva on 09-04-2023 Thin prep Papanicolaou smear with manual screening 6 5-[address] [facility] No Panel Informationon 08-11 BLANK _ [facility] Implant Date 04/29/2019 [facility] Model 5076 [employer] [facility] PACEMAKER REMOTE CHECKon AV Delay Adaptive Paced Minimum (ms) 180 ms [facility] AV Delay Adaptive Sensed Minimum (ms) 150 ms [facility] AV Delay Adaptive Status DISABLED [facility] Battery Voltage (volts) 3.[address] V [address] [facility] Evert RA Pacing Amplitude (volts) 1.75 V [facility] Evert RA Pacing Polarity BI [facility] Evert RA Pacing Pulse Width (ms) 0.4 ms [facility] Evert RA Sensing Amplitude (mvolts) 0.15 mV [facility] Evert RA Sensing Blanking Period (ms) 150 ms [facility] Evert RA Sensing Polarity BI [facility] Evert RA Sensing Refractory Period (ms) Auto [facility] Evert RV Pacing Amplitude (volts) 2 V [facility] Evert RV Pacing Polarity BI [facility] Evert RV Pacing Pulse Width (ms) 0.4 ms [facility] Evert RV Sensing Amplitude (mvolts) 0.9 mV [facility] Evert RV Sensing Blanking Period (ms) 200 ms [facility] Evert RV Sensing Polarity BI [facility] Hysteresis Rate (bpm) DISABLED [facility] Lead1 Mfg MDT [facility] Lead2 Mfg MDT [facility] Location RV [facility] Location RA [facility] Lower Rate (bpm) 60 {beats}/min [facility] Max Sensor Rate (bmp) 120 {beats}/min [facility] Model [id number] ESPINAL [facility] PM-Device Mfg MDAna [facility] PM-Percent Pacing (A) 15.48 % [facility] PM-Percent Pacing (V) 99.97 % [facility] PM-PMT Intervention DISABLED [facility] PM-PVC Intervention ENABLED [facility] PM-Rate Modulation Acceleration Reaction 30 s [facility] PM-Rate Modulation ADL Rate (bpm) 85 {beats}/min [facility] PM-Rate Modulation Deceleration Exercise [facility] PM-Rate Modulation Mcduffie 3 [facility] PM-Rate Modulation Threshold MediumLow [facility] RA Bipolar Impedance ohms 399 ohm [facility] RA Unipolar Impedance ohms 285 ohm [facility] RV Bipolar Impedance ohms 456 ohm [facility] RV Unipolar Impedance 418 ohm [facility] Serial Number [id number] [facility] Serial Number [id number] [facility] Serial Number [id number] [facility] Thresh RA Capture Amplitude (volts) 1 V [facility] Thresh RA Capture Duration (ms) 0.4 ms [facility] Thresh RA Sensing Amplitude (mvolts) 1.5 mV [facility] Thresh RV Capture Amplitude (volts) 0.75 V [facility] Thresh RV Capture Duration (ms) 0.4 ms [facility] Thresh RV Sensing Amplitude (mvolts) 11.375 mV [facility] Tracking Rate (bpm) 130 {beats}/min [facility] No Panel Informationon 05-04 BLANK _ [facility] Implant Date 04/29/2019 [facility] Model 5076 [employer] [facility] PACEMAKER REMOTE CHECKon AV Delay Adaptive Paced Minimum (ms) 180 ms [facility] AV Delay Adaptive Sensed Minimum (ms) 150 ms [facility] AV Delay Adaptive Status DISABLED [facility] Battery Voltage (volts) 3.[address] V [address] [facility] Evert RA Pacing Amplitude (volts) 1.5 V [facility] Evert RA Pacing Polarity BI [facility] Evert RA Pacing Pulse Width (ms) 0.4 ms [facility] Evert RA Sensing Amplitude (mvolts) 0.15 mV [facility] Evert RA Sensing Blanking Period (ms) 150 ms [facility] Evert RA Sensing Polarity BI [facility] Evert RA Sensing Refractory Period (ms) Auto [facility] Evert RV Pacing Amplitude (volts) 2 V [facility] Evert RV Pacing Polarity BI [facility] Evert RV Pacing Pulse Width (ms) 0.4 ms [facility] Evert RV Sensing Amplitude (mvolts) 0.9 mV [facility] Evert RV Sensing Blanking Period (ms) 200 ms [facility] Evert RV Sensing Polarity BI [facility] Hysteresis Rate (bpm) DISABLED [facility] Lead1 Mfg T [facility] Lead2 Mfg SOFIA [facility] Location RV [facility] Location RA [facility] Lower Rate (bpm) 60 {beats}/min [facility] Max Sensor Rate (bmp) 120 {beats}/min [facility] Model [id number] ESPINAL [facility] PM-Device Jerica BLACK [facility] PM-Percent Pacing (A) 14.55 % [facility] PM-Percent Pacing (V) 99.97 % [facility] PM-PMT Intervention DISABLED [facility] PM-PVC Intervention ENABLED [facility] PM-Rate Modulation Acceleration Reaction 30 s [facility] PM-Rate Modulation ADL Rate (bpm) 85 {beats}/min [facility] PM-Rate Modulation Deceleration Exercise [facility] PM-Rate Modulation Mcduffie 3 [facility] PM-Rate Modulation Threshold MediumLow [facility] RA Bipolar Impedance ohms 456 ohm [facility] RA Unipolar Impedance ohms 323 ohm [facility] RV Bipolar Impedance ohms 513 ohm [facility] RV Unipolar Impedance 456 ohm [facility] Serial Number [id number] [facility] Serial Number [id number] [facility] Serial Number [id number] [facility] Thresh RA Capture Amplitude (volts) 0.875 V [facility] Thresh RA Capture Duration (ms) 0.4 ms [facility] Thresh RA Sensing Amplitude (mvolts) 0.875 mV [facility] Thresh RV Capture Amplitude (volts) 0.75 V [facility] Thresh RV Capture Duration (ms) 0.4 ms [facility] Thresh RV Sensing Amplitude (mvolts) 11.375 mV [facility] Tracking Rate (bpm) 130 {beats}/min [facility] Basophil percentageOrdered B y: Ca Silva on 04-24-2023 Basophil percentage 0 SEEN /hpf 0-5 [facility] Bilirubin Test strip Ql (U)O rdered By: Ca Silva on 04-24-2023 Bilirubin Ql (U) Negative Negative [facility] Culture, urineOrdered By: Juan Antonio Silva on 04-24-2023 Bacteria identified Cx Nom (U) Escherichia coli [facility] Ketones Test strip Ql (U)Ord ered By: Ca Silva on 04-24-2023 Ketones Ql (U) 5 mg/dl Negative [facility] Mucus LM Ql (Urine sed)Order ed By: Ca Silva on 04-24-2023 Mucus Ql (Urine sed) 0 SEEN /hpf [facility] Nitrite Test strip Ql (U)Ord ered By: Ca Silva on 04-24-2023 Nitrite Ql (U) Positive Negative [facility] Protein Test strip Ql (U)Ord ered By: Ca Silva on 04-24-2023 Protein Ql (U) Negative Negative [facility] Squamous epithelial cells de tection in urine sediment by light microscopyOrdered By: Ca Silva on 04-24-2023 Epithelial cells.squamous LM Ql (Urine sed) 0-5 SEEN /hpf 5-[address] [facility] Urine blood detectionOrdered By: Ca Silva on 04-24-2023 RBC Ql (U) Negative Negative [facility] RBC Ql (U) 0 SEEN /hpf 0-[address] [facility] Urine clarityOrdered By: Sunny Silva on 04-24-2023 Clarity (U) Clear Clear [facility] Urine color determinationOrd ered By: Ca Silva on 04-24-2023 Color (U) Yellow Yellow [facility] Urine glucose detectionOrder ed By: Ca Silva on 04-24-2023 Glucose Ql (U) Normal mg/dl Normal [facility] Urine leukocyte esterase det ection by dipstickOrdered By: Ca Silva on 04-24-2023 Leukocyte esterase Test strip Ql (U) 25 /ul Negative [facility] Urine pHOrdered By: Ca paulino on 04-24-2023 pH (U) 6.0 [pH] 5.0 - 8.[address] [facility] Urine sediment bacteria coun t by microscopy (number/high power field)Ordered By: Ca Silva on 04-24-2023 Bacteria LM.HPF (Urine sed) [#/Area] 1 /[HPF] None Seen [facility] Urine specific gravity measu rementOrdered By: Ca Silva on 04-24-2023 Specific gravity (U) [Rel density] 1.015 1.002-1.[address] [facility] Urobilinogen Auto test strip Ql (U)Ordered By: Ca Silva on 04-24-2023 Urobilinogen Ql (U) Normal mg/dl Normal [facility] Serum or plasma C reactive p rotein measurement (mass/volume)Ordered By: Ca Silva on 04-17-2023 CRP [Mass/Vol] 26.90 mg/L 0.0-3.[address] [facility] Comment on above: C-Reactive Protein ( CRP) provides useful information for thediagnosis, therapy and monitoring of inflammatory processesand associated diseases. For the evaluation of Relative Riskfor Cardiovascular Disease, a High Sensitivity CRP (HSCRP)should be ordered. Serum or plasma uric acid me asurement (mass/volume)Ordered By: Ca Silva on 04-17-2023 Urate [Mass/Vol] 7.6 mg/dL 2.6-6.[address] [facility] Comment on above: The drugs N-Acetylcy steine and Metamizole may falsely depress this assay. Basophil percentageOrdered B y: Ca Silva on 02-20-2023 Chloride [Moles/Vol] 110 mmol/L 98-107 [facility] Glucose [Mass/Vol] 80 mg/dL 74-106 [facility] Potassium [Moles/Vol] 4.0 mmol/L 3.5-5.1 [facility] Sodium [Moles/Vol] 141 mmol/L 136-145 [facility] Laboratory - Chemistry and C hemistry - challengeOrdered By: Ca Silva on 02-20-2023 CO2 [Moles/Vol] 24.0 mmol/L 21.0-32.[address] [facility] Magnesium [Mass/Vol] 2.3 mg/dL 1.6-2.6 [facility] Urea nitrogen/Creatinine [Mass ratio] 34.8 mg/mg 10-[address] [facility] No Panel InformationOrdered By: Ca Silva on 02-20-2023 Estimated GFR (MDRD) Amer 46 mL/min >[address] [facility] Comment on above: GFR Calc Estimated GFR (MDRD) Non-Af Amer 38 mL/min >[address] [facility] Comment on above: Non- GFR Calc Serum or plasma calcium huyen urement (mass/volume)Ordered By: Ca Silva on 02-20-2023 Calcium [Mass/Vol] 8.1 mg/dL 8.5-10.1 [facility] Serum or plasma creatinine m easurement (mass/volume)Ordered By: Ca Silva on 02-20-2023 Creatinine [Mass/Vol] 1.41 mg/dL 0.55-1.02 [facility] Comment on above: The validity of the calculated GFR & GFRAA in patients over 70 years has not been determined. Clinical correlation is essential. Serum or plasma urea nitroge n measurement (mass/volume)Ordered By: Ca Silva on 02-20-2023 Urea nitrogen [Mass/Vol] 49 mg/dL 12-[address] [facility] Thin prep Papanicolaou smear with manual screeningOrdered By: Ca Silva on 02-20-2023 Thin prep Papanicolaou smear with manual screening 10-[address] [facility] COPPER BLOODon 12-14-2022 Copper [Mass/Vol] 101 ug/dL 80 - 155 ug/dL [facility] No Panel Informationon 12-14 BLANK _ [facility] Implant Date 04/29/2019 [facility] Model 5076 [employer] [facility] PACEMAKER REMOTE CHECKon AV Delay Adaptive Paced Minimum (ms) 180 ms [facility] AV Delay Adaptive Sensed Minimum (ms) 150 ms [facility] AV Delay Adaptive Status DISABLED [facility] Battery Voltage (volts) 3.00 V [facility] Evert RA Pacing Amplitude (volts) 1.5 V [facility] Eevrt RA Pacing Polarity BI [facility] Evert RA Pacing Pulse Width (ms) 0.4 ms [facility] Evert RA Sensing Amplitude (mvolts) 0.15 mV [facility] Evert RA Sensing Blanking Period (ms) 150 ms [facility] Evert RA Sensing Polarity BI [facility] Evert RA Sensing Refractory Period (ms) Auto [facility] Evert RV Pacing Amplitude (volts) 2 V [facility] Evert RV Pacing Polarity BI [facility] Evert RV Pacing Pulse Width (ms) 0.4 ms [facility] Evert RV Sensing Amplitude (mvolts) 0.9 mV [facility] Evert RV Sensing Blanking Period (ms) 200 ms [facility] Evert RV Sensing Polarity BI [facility] Hysteresis Rate (bpm) DISABLED [facility] Lead1 Jerica BLACK [facility] Lead2 eJrica BLACK [facility] Location RV [facility] Location RA [facility] Lower Rate (bpm) 60 {beats}/min [facility] Max Sensor Rate (bmp) 120 {beats}/min [facility] Model [id number] ESPINAL [facility] PM-Device Jerica BLACK [facility] PM-Percent Pacing (A) 16.12 % [facility] PM-Percent Pacing (V) 99.97 % [facility] PM-PMT Intervention DISABLED [facility] PM-PVC Intervention ENABLED [facility] PM-Rate Modulation Acceleration Reaction 30 s [facility] PM-Rate Modulation ADL Rate (bpm) 85 {beats}/min [facility] PM-Rate Modulation Deceleration Exercise [facility] PM-Rate Modulation Mcduffie 3 [facility] PM-Rate Modulation Threshold MediumLow [facility] RA Bipolar Impedance ohms 418 ohm [facility] RA Unipolar Impedance ohms 304 ohm [facility] RV Bipolar Impedance ohms 437 ohm [facility] RV Unipolar Impedance 399 ohm [facility] Serial Number [id number] [facility] Serial Number [id number] [facility] Serial Number [id number] [facility] Thresh RA Capture Amplitude (volts) 0.875 V [facility] Thresh RA Capture Duration (ms) 0.4 ms [facility] Thresh RA Sensing Amplitude (mvolts) 1.5 mV [facility] Thresh RV Capture Amplitude (volts) 0.75 V [facility] Thresh RV Capture Duration (ms) 0.4 ms [facility] Thresh RV Sensing Amplitude (mvolts) 13.625 mV [facility] Tracking Rate (bpm) 130 {beats}/min [facility] FERRITIN BLDon 12-12-2022 Ferritin [Mass/Vol] 338.0 ng/mL High 14.7 - 2 05.1 ng/mL [facility] Iron and Iron binding capaci ty panelon 12-12-2022 Iron [Mass/Vol] 60 ug/dL 41 - 186 ug/dL [facility] Iron binding capacity [Mass/Vol] 258 ug/dL 232 - 386 ug/dL [facility] Iron/TIBC [Molar ratio] 23.3 % 15.0 - 57.0 % [facility] VITAMIN B12 BLOODon 12-13-19 Cobalamin (Vitamin B12) [Mass/Vol] 668 pg/mL 232 - 1,245 pg/mL [facility] C-REACTIVE PROTEIN (CRP)on 0 11-24-2022 CRP [Mass/Vol] <0.9 mg/dL [facility] CBC W Auto Differential pane l (Bld)on 11-23-2022 Basophils (Bld) [#/Vol] 0.03 10*3/uL <0.11 k/uL [facility] Basophils/100 WBC (Bld) 0.5 % C [facility] Differential cell count method Nom (Bld) Auto [facility] Eosinophils (Bld) [#/Vol] 0.20 10*3/uL <0.46 k/uL [facility] Eosinophils/100 WBC (Bld) 3.5 % [facility] Erythrocyte distribution width (RBC) [Ratio] 11.9 % 11.5 - 15.0 % [facility] Hematocrit (Bld) [Volume fraction] 35.5 % Low 36.0 - 46.0 % [facility] Hemoglobin (Bld) [Mass/Vol] 11.1 g/dL Low 11.5 - 15.5 g/dL [facility] Immature granulocytes (Bld) [#/Vol] <0.10 k/uL [facility] Immature granulocytes/100 WBC (Bld) 0.3 % [facility] Lymphocytes (Bld) [#/Vol] 0.97 10*3/uL Low 1.00 - 4.00 k/uL [facility] Lymphocytes/100 WBC (Bld) 17.0 % [facility] MCH (RBC) [Entitic mass] 32.1 pg 26. 0 - 34.0 pg [facility] MCHC (RBC) [Mass/Vol] 31.3 g/dL 30.5 - 36.0 g/dL [facility] MCV (RBC) [Entitic vol] 102.6 fL High 80.0 - 100.0 fL [facility] Monocytes (Bld) [#/Vol] 0.44 10*3/uL <0.87 k/uL [facility] Monocytes/100 WBC (Bld) 7.7 % C [facility] Neutrophils (Bld) [#/Vol] 4.06 10*3/uL 1.45 - 7.50 k/uL [facility] Neutrophils/100 WBC (Bld) 71.0 % [facility] Nucleated RBC (Bld) [#/Vol] <0.01 k/uL [facility] Nucleated RBC/100 WBC (Bld) [Ratio] 0.0 /100 WBC [facility] Platelet mean volume (Bld) [Entitic vol] 10.9 fL 9.0 - 12.7 fL [facility] Platelets (Bld) [#/Vol] 175 10*3/uL 150 - 400 k/uL [facility] RBC (Bld) [#/Vol] 3.46 10*6/uL Low 3.90 - 5.2 0 m/uL [facility] WBC (Bld) [#/Vol] 5.72 10*3/uL 3.70 - 11. 00 k/uL [facility] ESR Westergren method (Bld) [Velocity]on 11-23-2022 ESR (Bld) [Velocity] 27 mm/h High 0 - 20 mm/hr Cl [facility] XR Knee AP and Lateral and M erchantson 11-23-2022 IMPRESSION: No appreciable change. Laborer Cutting Tool: PSCB Transcribe Date/Time: Nov 23 2022 4:55P Dictated by : JORDI MIRANDA MD This examination was interpreted and the report reviewed and electronically signed by: JORDI MIRANDA MD on Nov 23 2022 5:01PM [facility] DIVISION OF RADIOLOGY * [...] significant abnormality. ----- DIVISION OF RADIOLOGY Provider, [facility] [place] - 11/23/2022 * * *Final Report* * [...] abnormality. ----- IMPRESSION IMPRESSION: No appreciable change. Laborer Cutting Tool: TIFFANY Transcribe Date/Time: Nov 23 2022 4:55P Dictated by : JORDI MIRANDA MD This examination was interpreted and the report reviewed and electronically signed by: JORDI MIRANDA MD on Nov 23 2022 5:01PM EST [facility] Radiology Study observation (narrative) Janie laureano [facility] XR Knee AP and Lateral and M erchantsOrdered By: [facility] Provider on 11-23-2022 [facility] Basophil percentageOrdered B y: Dr. Silva on 09-13-2022 Chloride [Moles/Vol] 108 mmol/L 98-107 [facility] Glucose [Mass/Vol] 79 mg/dL 74-106 [facility] Potassium [Moles/Vol] 4.4 mmol/L 3.5-5.1 [facility] Sodium [Moles/Vol] 139 mmol/L 136-145 [facility] Laboratory - Chemistry and C hemistry - challengeOrdered By: Dr. Silva on 09-13-2022 CO2 [Moles/Vol] 25.0 mmol/L 21.0-32.[address] [facility] Urea nitrogen/Creatinine [Mass ratio] 36.2 mg/mg 10-[address] [facility] No Panel InformationOrdered By: Dr. Silva on 09-13-2022 Estimated GFR (MDRD) Amer 52 mL/min >[address] [facility] Comment on above: GFR Calc Estimated GFR (MDRD) Non-Af Amer 43 mL/min >60 [facility] Comment on above: Non- GFR Calc Serum or plasma calcium huyen urement (mass/volume)Ordered By: Dr. Silva on 09-13-2022 Calcium [Mass/Vol] 8.2 mg/dL 8.5-10.1 [facility] Serum or plasma creatinine m easurement (mass/volume)Ordered By: Dr. Silva on 09-13-2022 Creatinine [Mass/Vol] 1.27 mg/dL 0.55-1.02 [facility] Comment on above: The validity of the calculated GFR & GFRAA in patients over 70 years has not been determined. Clinical correlation is essential. Serum or plasma urea nitroge n measurement (mass/volume)Ordered By: Dr. Silva on 09-13-2022 Urea nitrogen [Mass/Vol] 46 mg/dL 7-[address] [facility] Thin prep Papanicolaou smear with manual screeningOrdered By: Dr. Silva on 09-13-2022 Thin prep Papanicolaou smear with manual screening 6 5-[address] [facility] Basophil percentageOrdered B y: Dr. Silva on 09-06-2022 Chloride [Moles/Vol] 111 mmol/L 98-107 [facility] Glucose [Mass/Vol] 77 mg/dL 74-106 [facility] Potassium [Moles/Vol] 4.2 mmol/L 3.5-5.1 [facility] Sodium [Moles/Vol] 141 mmol/L 136-145 [facility] WBC (Bld) [#/Vol] 4.9 10*3/uL 4.4-11.0 [facility] Blood erythrocytes count (nu mber/volume)Ordered By: Dr. Silva on 09-06-2022 RBC (Bld) [#/Vol] 2.43 10*6/uL 4.2-5.4 [facility] Blood hemoglobin measurement (mass/volume)Ordered By: Dr. Silva on 09-06-2022 Hemoglobin (Bld) [Mass/Vol] 8.2 g/dL 12.0-15.[address] [facility] Blood platelet mean volumeOr dered By: Dr. Silva on 09-06-2022 Platelet mean volume (Bld) [Entitic vol] 10.7 fL 6.2-12.[address] [facility] Determination of erythrocyte mean corpuscular volume (MCV)Ordered By: Dr. Silva on 09-06-2022 MCV (RBC) [Entitic vol] 109.5 fL 81-99 [facility] Hematocrit Auto (Bld) [Volum e fraction]Ordered By: Dr. Silva on 09-06-2022 Hematocrit (Bld) [Volume fraction] 26.6 % 37-[address] [facility] Laboratory - Chemistry and C hemistry - challengeOrdered By: Dr. Silva on 09-06-2022 CO2 [Moles/Vol] 25.0 mmol/L 21.0-32.[address] [facility] Urea nitrogen/Creatinine [Mass ratio] 37.1 mg/mg 10-[address] [facility] Laboratory - Hematology and Cell countsOrdered By: Dr. Silva on 09-06-2022 Erythrocyte distribution width (RBC) [Entitic vol] 50.3 fL 35.1-43.[address] [facility] Erythrocyte distribution width (RBC) [Ratio] 12.5 % 11.6-14.[address] [facility] MCH (RBC) [Entitic mass] 33.7 pg 27.0-32.[address] [facility] MCHC Auto (RBC) [Mass/Vol]Or dered By: Dr. Silva on 09-06-2022 MCHC (RBC) [Mass/Vol] 30.8 g/dL 32-36 [facility] No Panel InformationOrdered By: Dr. Silva on 09-06-2022 Estimated GFR (MDRD) Amer 54 mL/min >[address] [facility] Comment on above: GFR Calc Estimated GFR (MDRD) Non-Af Amer 44 mL/min >[address] [facility] Comment on above: Non- GFR Calc Platelets bldOrdered By: Dr. Silva on 09-06-2022 Platelets (Bld) [#/Vol] 196 10*3/uL 150-[address] [facility] Serum or plasma calcium huyen urement (mass/volume)Ordered By: Dr. Silva on 09-06-2022 Calcium [Mass/Vol] 8.3 mg/dL 8.5-10.1 [facility] Serum or plasma creatinine m easurement (mass/volume)Ordered By: Dr. Silva on 09-06-2022 Creatinine [Mass/Vol] 1.24 mg/dL 0.55-1.02 [facility] Comment on above: The validity of the calculated GFR & GFRAA in patients over 70 years has not been determined. Clinical correlation is essential. Serum or plasma urea nitroge n measurement (mass/volume)Ordered By: Dr. Silva on 09-06-2022 Urea nitrogen [Mass/Vol] 46 mg/dL 7-[address] [facility] Thin prep Papanicolaou smear with manual screeningOrdered By: Dr. Silva on 09-06-2022 Thin prep Papanicolaou smear with manual screening 5 5-[address] [facility] No Panel Informationon 09-05 BLANK _ [facility] Implant Date 04/29/2019 [facility] Model 5076 [employer] [facility] CHECKon AV Delay Adaptive Paced Minimum (ms) 180 ms [facility] AV Delay Adaptive Sensed Minimum (ms) 150 ms [facility] AV Delay Adaptive Status DISABLED [facility] Battery Voltage (volts) 3.00 V [facility] Evert RA Pacing Amplitude (volts) 1.5 V [facility] Evert RA Pacing Polarity BI [facility] Evert RA Pacing Pulse Width (ms) 0.4 ms [facility] Evert RA Sensing Amplitude (mvolts) 0.15 mV [facility] Evert RA Sensing Blanking Period (ms) 150 ms [facility] Evert RA Sensing Polarity BI [facility] Evert RA Sensing Refractory Period (ms) Auto [facility] Evert RV Pacing Amplitude (volts) 2 V [facility] Evert RV Pacing Polarity BI [facility] Evert RV Pacing Pulse Width (ms) 0.4 ms [facility] Evert RV Sensing Amplitude (mvolts) 0.9 mV [facility] Evert RV Sensing Blanking Period (ms) 200 ms [facility] Evert RV Sensing Polarity BI [facility] Demand Interval (ms) 664 [facility] Hysteresis Rate (bpm) DISABLED [facility] Lead1 Mfg MDT [facility] Lead2 Mfg MDT [facility] Location RV [facility] Location RA [facility] Lower Rate (bpm) 60 {beats}/min [facility] Max Sensor Rate (bmp) 120 {beats}/min [facility] Model [id number] [address] ESPINAL [facility] Pacemaker Dependent? YES [facility] PM-Device Mfg MDT [facility] PM-Percent Pacing (A) 7.59 % [facility] PM-Percent Pacing (V) 99.95 % [facility] PM-PMT Intervention DISABLED [facility] PM-PVC Intervention ENABLED [facility] PM-Rate Modulation Acceleration Reaction 30 s [facility] PM-Rate Modulation ADL Rate (bpm) 85 {beats}/min [facility] PM-Rate Modulation Deceleration Exercise [facility] PM-Rate Modulation Mcduffie 3 [facility] PM-Rate Modulation Threshold MediumLow [facility] RA Bipolar Impedance ohms 418 ohm [facility] RA Unipolar Impedance ohms 304 ohm [facility] Rhythm sinus with CHB [facility] RV Bipolar Impedance ohms 456 ohm [facility] RV Unipolar Impedance 380 ohm [facility] Serial Number [id number] [facility] Serial Number [id number] [facility] Serial Number [id number] [facility] Thresh RA Capture Amplitude (volts) 0.75 V [facility] Thresh RA Capture Duration (ms) 0.4 ms [facility] Thresh RA Sensing Amplitude (mvolts) 1.4 mV [facility] Thresh RV Capture Amplitude (volts) 0.5 V [facility] Thresh RV Capture Duration (ms) 0.4 ms [facility] Thresh RV Sensing Amplitude (mvolts) 9.375 mV [facility] Tracking Rate (bpm) 130 {beats}/min [facility] No Panel Informationon 09-01 BLANK _ [facility] Implant Date 04/29/2019 [facility] Model 5076 [employer] [facility] PACEMAKER REMOTE CHECKon AV Delay Adaptive Paced Minimum (ms) 180 ms [facility] AV Delay Adaptive Sensed Minimum (ms) 150 ms [facility] AV Delay Adaptive Status DISABLED [facility] Battery Voltage (volts) 3.00 V [facility] Evert RA Pacing Amplitude (volts) 1.5 V [facility] Evert RA Pacing Polarity BI [facility] Evert RA Pacing Pulse Width (ms) 0.4 ms [facility] Evert RA Sensing Amplitude (mvolts) 0.15 mV [facility] Evert RA Sensing Blanking Period (ms) 150 ms [facility] Evert RA Sensing Polarity BI [facility] Evert RA Sensing Refractory Period (ms) Auto [facility] Evert RV Pacing Amplitude (volts) 2 V [facility] Evert RV Pacing Polarity BI [facility] Evert RV Pacing Pulse Width (ms) 0.4 ms [facility] Evert RV Sensing Amplitude (mvolts) 0.9 mV [facility] Evert RV Sensing Blanking Period (ms) 200 ms [facility] Evert RV Sensing Polarity BI [facility] Hysteresis Rate (bpm) DISABLED [facility] Lead1 Mfg MDT [facility] Lead2 Mfg MDT [facility] Location RV [facility] Location RA [facility] Lower Rate (bpm) 60 {beats}/min [facility] Max Sensor Rate (bmp) 120 {beats}/min [facility] Model [id number] ESPINAL [facility] PM-Device Mfg MDAna [facility] PM-Percent Pacing (A) 2.07 % [facility] PM-Percent Pacing (V) 99.9 % [facility] PM-PMT Intervention DISABLED [facility] PM-PVC Intervention ENABLED [facility] PM-Rate Modulation Acceleration Reaction 30 s [facility] PM-Rate Modulation ADL Rate (bpm) 85 {beats}/min [facility] PM-Rate Modulation Deceleration Exercise [facility] PM-Rate Modulation Mcduffie 3 [facility] PM-Rate Modulation Threshold MediumLow [facility] RA Bipolar Impedance ohms 418 ohm [facility] RA Unipolar Impedance ohms 285 ohm [facility] RV Bipolar Impedance ohms 437 ohm [facility] RV Unipolar Impedance 380 ohm [facility] Serial Number [id number] [facility] Serial Number [id number] [facility] Serial Number [id number] [facility] Thresh RA Capture Amplitude (volts) 1 V [facility] Thresh RA Capture Duration (ms) 0.4 ms [facility] Thresh RA Sensing Amplitude (mvolts) 1.25 mV [facility] Thresh RV Capture Amplitude (volts) 0.875 V [facility] Thresh RV Capture Duration (ms) 0.4 ms [facility] Thresh RV Sensing Amplitude (mvolts) 9.375 mV [facility] Tracking Rate (bpm) 130 {beats}/min [facility] Basophil percentageOrdered B y: Dr. Silva on 08-30-2022 Chloride [Moles/Vol] 113 mmol/L 98-107 [facility] Glucose [Mass/Vol] 90 mg/dL 74-106 [facility] Potassium [Moles/Vol] 4.3 mmol/L 3.5-5.1 [facility] Sodium [Moles/Vol] 138 mmol/L 136-145 [facility] WBC (Bld) [#/Vol] 5.0 10*3/uL 4.4-11.0 [facility] Blood erythrocytes count (nu mber/volume)Ordered By: Dr. Silva on 08-30-2022 RBC (Bld) [#/Vol] 2.66 10*6/uL 4.2-5.4 [facility] Blood hemoglobin measurement (mass/volume)Ordered By: Dr. Silva on 08-30-2022 Hemoglobin (Bld) [Mass/Vol] 8.8 g/dL 12.0-15.[address] [facility] Blood platelet mean volumeOr dered By: Dr. Silva on 08-30-2022 Platelet mean volume (Bld) [Entitic vol] 10.0 fL 6.2-12.[address] [facility] Determination of erythrocyte mean corpuscular volume (MCV)Ordered By: Dr. Silva on 08-30-2022 MCV (RBC) [Entitic vol] 107.9 fL 81-99 [facility] Hematocrit Auto (Bld) [Volum e fraction]Ordered By: Dr. Silva on 08-30-2022 Hematocrit (Bld) [Volume fraction] 28.7 % 37-[address] [facility] Laboratory - Chemistry and C hemistry - challengeOrdered By: Dr. Silva on 08-30-2022 CO2 [Moles/Vol] 21.0 mmol/L 21.0-32.[address] [facility] Urea nitrogen/Creatinine [Mass ratio] 22.8 mg/mg 10-[address] [facility] Laboratory - Hematology and Cell countsOrdered By: Dr. Silva on 08-30-2022 Erythrocyte distribution width (RBC) [Entitic vol] 51.6 fL 35.1-43.[address] [facility] Erythrocyte distribution width (RBC) [Ratio] 12.9 % 11.6-14.[address] [facility] MCH (RBC) [Entitic mass] 33.1 pg 27.0-32.0 [facility] Auto (RBC) [Mass/Vol]Or dered By: Dr. Silva on 08-30-2022 MCHC (RBC) [Mass/Vol] 30.7 g/dL 32-36 [facility] No Panel InformationOrdered By: Dr. Silva on 08-30-2022 Estimated GFR (MDRD) Amer 59 mL/min >[address] [facility] Comment on above: GFR Calc Estimated GFR (MDRD) Non-Af Amer 49 mL/min >[address] [facility] Comment on above: Non- GFR Calc Platelets bldOrdered By: Dr. Silva on 08-30-2022 Platelets (Bld) [#/Vol] 235 10*3/uL 150-[address] [facility] Serum or plasma albumin huyen urement (mass/volume)Ordered By: Dr. Silva on 08-30-2022 Albumin [Mass/Vol] 2.3 g/dL 3.2-5.0 [facility] Serum or plasma calcium huyen urement (mass/volume)Ordered By: Dr. Silva on 08-30-2022 Calcium [Mass/Vol] 8.1 mg/dL 8.5-10.1 [facility] Serum or plasma creatinine m easurement (mass/volume)Ordered By: Dr. Silva on 08-30-2022 Creatinine [Mass/Vol] 1.14 mg/dL 0.55-1.02 [facility] Comment on above: The validity of the calculated GFR & GFRAA in patients over 70 years has not been determined. Clinical correlation is essential. Serum or plasma urea nitroge n measurement (mass/volume)Ordered By: Dr. Silva on 08-30-2022 Urea nitrogen [Mass/Vol] 26 mg/dL 7-[address] [facility] Thin prep Papanicolaou smear with manual screeningOrdered By: Dr. Silva on 08-30-2022 Thin prep Papanicolaou smear with manual screening 4 5-[address] [facility] Basophil percentageOrdered B y: Dr. Silva on 08-24-2022 Chloride [Moles/Vol] 114 mmol/L 98-107 [facility] Cholesterol [Mass/Vol] 79 mg/dL <200 [facility] Comment on above: <200 mg/dL Desirable 200-240 mg/dL Borderline >240 mg/dL High Risk Glucose [Mass/Vol] 79 mg/dL 74-106 [facility] Potassium [Moles/Vol] 4.0 mmol/L 3.5-5.1 [facility] Sodium [Moles/Vol] 140 mmol/L 136-145 [facility] Triglyceride [Mass/Vol] 71 mg/dL <199 [facility] Comment on above: The drugs N-Acetylcy steine and Metamizole may falsely depress this assay.Serum Triglycerides Reference Interval Normal <150 mg/dL Borderline high 150 - 199 mg/dL High 200 - 499 mg/dL Very High > or = 500 mg/dL WBC (Bld) [#/Vol] 6.3 10*3/uL 4.4-11.0 [facility] Blood erythrocytes count (nu mber/volume)Ordered By: Dr. Silva on 08-24-2022 RBC (Bld) [#/Vol] 2.58 10*6/uL 4.2-5.4 [facility] Blood hemoglobin measurement (mass/volume)Ordered By: Dr. Silva on 08-24-2022 Hemoglobin (Bld) [Mass/Vol] 8.7 g/dL 12.0-15.[address] [facility] Blood platelet mean volumeOr dered By: Dr. Silva on 08-24-2022 Platelet mean volume (Bld) [Entitic vol] 9.8 fL 6.2-12.[address] [facility] Determination of erythrocyte mean corpuscular volume (MCV)Ordered By: Dr. Silva on 08-24-2022 MCV (RBC) [Entitic vol] 107.4 fL 81-99 [facility] Hematocrit Auto (Bld) [Volum e fraction]Ordered By: Dr. Silva on 08-24-2022 Hematocrit (Bld) [Volume fraction] 27.7 % 37-[address] [facility] Laboratory - Chemistry and C hemistry - challengeOrdered By: Dr. Silva on 08-24-2022 CO2 [Moles/Vol] 19.0 mmol/L 21.0-32.[address] [facility] Cobalamin (Vitamin B12) [Mass/Vol] 1354 pg/mL 211-[address] [facility] Urea nitrogen/Creatinine [Mass ratio] 20.6 mg/mg 10-[address] [facility] Laboratory - Hematology and Cell countsOrdered By: Dr. Silva on 08-24-2022 Erythrocyte distribution width (RBC) [Entitic vol] 52.1 fL 35.1-43.[address] [facility] Erythrocyte distribution width (RBC) [Ratio] 13.3 % 11.6-14.[address] [facility] MCH (RBC) [Entitic mass] 33.7 pg 27.0-32.[address] [facility] Laboratory - Microbiology an d Antimicrobial susceptibilityOrdered By: Dr. Albright on 08-24-2022 Bacteria identified Cx Nom (Bld) No growth in [address] [facility] MCHC Auto (RBC) [Mass/Vol]Or dered By: Dr. Silva on 08-24-2022 MCHC (RBC) [Mass/Vol] 31.4 g/dL 32-36 [facility] No Panel InformationOrdered By: Dr. Silva on 08-24-2022 Estimated GFR (MDRD) Amer 64 mL/min >[address] [facility] Comment on above: GFR Calc Estimated GFR (MDRD) Non-Af Amer 53 mL/min >[address] [facility] Comment on above: Non- GFR Calc Thyroid Stimulating Hormone (TSH) 3.32 uIU/mL 0.358-3.[address] [facility] Vitamin D 25-Hydroxy 67.4 ng/mL [facility] Comment on above: Vitamin D 25(OH) Sta tus Range Deficiency <20 ng/mL (50nmol/L) Insufficiency 20 - 30 ng/mL (50 - 75 nmol/L) Sufficiency 30 - 100 ng/mL (75 - 250 nmol/L) Toxicity >100 ng/mL (>250 nmol/L) Platelets bldOrdered By: Dr. Silva on 08-24-2022 Platelets (Bld) [#/Vol] 174 10*3/uL 150-[address] [facility] Serum or plasma calcium huyen urement (mass/volume)Ordered By: Dr. Silva on 08-24-2022 Calcium [Mass/Vol] 8.0 mg/dL 8.5-10.1 [facility] Serum or plasma cholesterol in HDL measurement (mass/volume)Ordered By: Dr. Silva on 08-24-2022 Cholesterol in HDL [Mass/Vol] 46 mg/dL >[address] [facility] Comment on above: The drugs N-Acetylcy steine and Metamizole may falsely depress this assay. Reference Range HDL <40 mg/dL Low HDL Cholesterol HDL >or= 60 mg/dL High HDL Cholesterol Serum or plasma cholesterol in VLDL measurement (mass/volume)Ordered By: Dr. Silva on 08-24-2022 Cholesterol in VLDL [Mass/Vol] 14 mg/dL 5-[address] [facility] Serum or plasma creatinine m easurement (mass/volume)Ordered By: Dr. Silva on 08-24-2022 Creatinine [Mass/Vol] 1.07 mg/dL 0.55-1.02 [facility] Comment on above: The validity of the calculated GFR & GFRAA in patients over 70 years has not been determined. Clinical correlation is essential. Serum or plasma low density lipoprotein (LDL) cholesterol measurement (mass/volume)Ordered By: Dr. Silva on 08-24-2022 Cholesterol in LDL [Mass/Vol] 19 mg/dL 0-[address] [facility] Serum or plasma urea nitroge n measurement (mass/volume)Ordered By: Dr. Silva on 08-24-2022 Urea nitrogen [Mass/Vol] 22 mg/dL 7-[address] [facility] Thin prep Papanicolaou smear with manual screeningOrdered By: Dr. Silva on 08-24-2022 Thin prep Papanicolaou smear with manual screening 7 5-[address] [facility] Absolute lymphocyte countOrd ered By: Dr. Andrade on 08-23-2022 Lymphocytes Auto (Unsp spec) [#/Vol] 1.10 10*3/uL 0.83-4.[address] [facility] Basophil percentageOrdered B y: Dr. Andrade on 08-23-2022 Basophils/100 WBC (Bld) 0.4 % 0-1 [facility] Chloride [Moles/Vol] 115 mmol/L 98-107 [facility] Eosinophils/100 WBC (Bld) 3.7 % 0-[address] [facility] Glucose [Mass/Vol] 87 mg/dL 74-106 [facility] Neutrophils (Bld) [#/Vol] 5.2 10*3/uL 2.0-7.[address] [facility] Neutrophils/100 WBC (Bld) 73.5 % 47-[address] [facility] Potassium [Moles/Vol] 3.5 mmol/L 3.5-5.1 [facility] Sodium [Moles/Vol] 140 mmol/L 136-145 [facility] WBC (Bld) [#/Vol] 7.1 10*3/uL 4.4-11.0 [facility] Blood erythrocytes count (nu mber/volume)Ordered By: Dr. Andrade on 08-23-2022 RBC (Bld) [#/Vol] 2.62 10*6/uL 4.2-5.4 [facility] Blood hemoglobin measurement (mass/volume)Ordered By: Dr. Andrade on 08-23-2022 Hemoglobin (Bld) [Mass/Vol] 8.9 g/dL 12.0-15.[address] [facility] Blood lymphocytes/100 leukoc ytesOrdered By: Dr. Andrade on 08-23-2022 Lymphocytes/100 WBC (Bld) 15.5 % 19-[address] [facility] Blood monocytes/100 leukocyt esOrdered By: Dr. Andrade on 08-23-2022 Monocytes/100 WBC (Bld) 6.3 % 0-10 [facility] Blood platelet mean volumeOr dered By: Dr. Andrade on 08-23-2022 Platelet mean volume (Bld) [Entitic vol] 9.6 fL 6.2-12.[address] [facility] Determination of erythrocyte mean corpuscular volume (MCV)Ordered By: Dr. Andrade on 08-23-2022 MCV (RBC) [Entitic vol] 105.3 fL 81-99 [facility] Hematocrit Auto (Bld) [Volum e fraction]Ordered By: Dr. Andrade on 08-23-2022 Hematocrit (Bld) [Volume fraction] 27.6 % 37-[address] [facility] Laboratory - Chemistry and C hemistry - challengeOrdered By: Dr. Andrade on 08-23-2022 CO2 [Moles/Vol] 19.0 mmol/L 21.0-32.[address] [facility] Magnesium [Mass/Vol] 2.3 mg/dL 1.6-2.6 [facility] Urea nitrogen/Creatinine [Mass ratio] 20.4 mg/mg 10-[address] [facility] Laboratory - Hematology and Cell countsOrdered By: Dr. Andrade on 08-23-2022 Erythrocyte distribution width (RBC) [Entitic vol] 51.6 fL 35.1-43.[address] [facility] Erythrocyte distribution width (RBC) [Ratio] 13.2 % 11.6-14.[address] [facility] Immature granulocytes/100 WBC (Bld) 0.600 % 0.0-0.[address] [facility] Comment on above: IG% - Immature Granu locytes (promyelocytes, myelocytes and metamyelocytes) > 1% indicates that a LEFT SHIFT is Present. MCH (RBC) [Entitic mass] 34.0 pg 27.0-32.[address] [facility] Nucleated RBC/100 WBC (Bld) [Ratio] 0 % 0-[address] [facility] MCHC Auto (RBC) [Mass/Vol]Or dered By: Dr. Andrade on 08-23-2022 MCHC (RBC) [Mass/Vol] 32.2 g/dL 32-36 [facility] No Panel InformationOrdered By: Dr. Andrade on 08-23-2022 Estimated Creatinine Clearance Calc 33.41 ml/min [facility] Estimated GFR (MDRD) Amer 63 mL/min >[address] [facility] Comment on above: GFR Calc Estimated GFR (MDRD) Non-Af Amer 52 mL/min >[address] [facility] Comment on above: Non- GFR Calc Platelets bldOrdered By: Dr. Andrade on 08-23-2022 Platelets (Bld) [#/Vol] 170 10*3/uL 150-[address] [facility] Serum or plasma calcium huyen urement (mass/volume)Ordered By: Dr. Andrade on 08-23-2022 Calcium [Mass/Vol] 7.7 mg/dL 8.5-10.1 [facility] Serum or plasma creatinine m easurement (mass/volume)Ordered By: Dr. Andrade on 08-23-2022 Creatinine [Mass/Vol] 1.08 mg/dL 0.55-1.02 [facility] Comment on above: The validity of the calculated GFR & GFRAA in patients over 70 years has not been determined. Clinical correlation is essential. Serum or plasma urea nitroge n measurement (mass/volume)Ordered By: Dr. Andrade on 08-23-2022 Urea nitrogen [Mass/Vol] 22 mg/dL 7-[address] [facility] Thin prep Papanicolaou smear with manual screeningOrdered By: Dr. Andrade on 08-23-2022 Thin prep Papanicolaou smear with manual screening 6 5-[address] [facility] Culture, urineOrdered By: Dr Brayden Albright on 08-21-2022 Bacteria identified Cx Nom (U) Culture exhibits no growth. [facility] Basophil percentageOrdered B y: Dr. Kimball on 08-20-2022 Basophil percentage 2.8 mg/dL 2.5-4.9 [facility] Absolute lymphocyte countOrd ered By: ED PROVIDER on 08-19-2022 Lymphocytes Auto (Unsp spec) [#/Vol] 0.98 10*3/uL 0.83-4.[address] [facility] Basophil percentageOrdered B y: Dr. Albright on 08-19-2022 Basophil percentage 0 SEEN /hpf 0-5 [facility] Lactate [Moles/Vol] 1.1 mmol/L 0.4-2.0 [facility] Basophil percentageOrdered B y: ED PROVIDER on 08-19-2022 Basophils/100 WBC (Bld) 0.2 % 0-1 [facility] Chloride [Moles/Vol] 96 mmol/L 98-107 [facility] Eosinophils/100 WBC (Bld) 1.0 % 0-[address] [facility] Glucose [Mass/Vol] 110 mg/dL 74-106 [facility] Comment on above: Fasting Glucose resu lt from 100 to 125 mg/dL suggests IMPAIRED HOMEOSTASIS per A.D.A. criteria. Neutrophils (Bld) [#/Vol] 6.1 10*3/uL 2.0-7.[address] [facility] Neutrophils/100 WBC (Bld) 74.5 % 47-[address] [facility] Potassium [Moles/Vol] 3.1 mmol/L 3.5-5.1 [facility] Sodium [Moles/Vol] 127 mmol/L 136-145 [facility] WBC (Bld) [#/Vol] 8.2 10*3/uL 4.4-11.0 [facility] Bilirubin Test strip Ql (U)O rdered By: Dr. Albright on 08-19-2022 Bilirubin Ql (U) Negative Negative [facility] Blood erythrocytes count (nu mber/volume)Ordered By: ED PROVIDER on 08-19-2022 RBC (Bld) [#/Vol] 3.10 10*6/uL 4.2-5.4 [facility] Blood hemoglobin measurement (mass/volume)Ordered By: ED PROVIDER on 08-19-2022 Hemoglobin (Bld) [Mass/Vol] 10.2 g/dL 12.0-15.[address] [facility] Blood lymphocytes/100 leukoc ytesOrdered By: ED PROVIDER on 08-19-2022 Lymphocytes/100 WBC (Bld) 12.0 % 19-[address] [facility] Blood monocytes/100 leukocyt esOrdered By: ED PROVIDER on 08-19-2022 Monocytes/100 WBC (Bld) 10.7 % 0-10 [facility] Blood platelet mean volumeOr dered By: ED PROVIDER on 08-19-2022 Platelet mean volume (Bld) [Entitic vol] 9.8 fL 6.2-12.[address] [facility] Determination of erythrocyte mean corpuscular volume (MCV)Ordered By: ED PROVIDER on 08-19-2022 MCV (RBC) [Entitic vol] 98.1 fL 81-99 [facility] Hematocrit Auto (Bld) [Volum e fraction]Ordered By: ED PROVIDER on 08-19-2022 Hematocrit (Bld) [Volume fraction] 30.4 % 37-[address] [facility] Ketones Test strip Ql (U)Ord ered By: Dr. Albright on 08-19-2022 Ketones Ql (U) Negative Negative [facility] Laboratory - Chemistry and C hemistry - challengeOrdered By: ED PROVIDER on 08-19-2022 CO2 [Moles/Vol] 21.0 mmol/L 21.0-32.[address] [facility] Urea nitrogen/Creatinine [Mass ratio] 22.8 mg/mg 10-[address] [facility] Laboratory - Hematology and Cell countsOrdered By: ED PROVIDER on 08-19-2022 Erythrocyte distribution width (RBC) [Entitic vol] 43.8 fL 35.1-43.[address] [facility] Erythrocyte distribution width (RBC) [Ratio] 12.1 % 11.6-14.[address] [facility] Immature granulocytes/100 WBC (Bld) 1.600 % 0.0-0.[address] [facility] Comment on above: IG% - Immature Granu locytes (promyelocytes, myelocytes and metamyelocytes) > 1% indicates that a LEFT SHIFT is Present. MCH (RBC) [Entitic mass] 32.9 pg 27.0-32.[address] [facility] Nucleated RBC/100 WBC (Bld) [Ratio] 0 % 0-[address] [facility] MCHC Auto (RBC) [Mass/Vol]Or dered By: ED PROVIDER on 08-19-2022 MCHC (RBC) [Mass/Vol] 33.6 g/dL 32-36 [facility] Mucus LM Ql (Urine sed)Order ed By: Dr. Albright on 08-19-2022 Mucus Ql (Urine sed) 0 SEEN /hpf [facility] Nitrite Test strip Ql (U)Ord ered By: Dr. Albright on 08-19-2022 Nitrite Ql (U) Negative Negative [facility] No Panel InformationOrdered By: ED PROVIDER on 08-19-2022 Estimated Creatinine Clearance Calc 16.47 ml/min [facility] Estimated GFR (MDRD) Amer 28 mL/min >[address] [facility] Comment on above: GFR Calc Estimated GFR (MDRD) Non-Af Amer 23 mL/min >[address] [facility] Comment on above: Non- GFR Calc Platelets bldOrdered By: ED PROVIDER on 08-19-2022 Platelets (Bld) [#/Vol] 183 10*3/uL 150-[address] [facility] Protein Test strip Ql (U)Ord ered By: Dr. Albright on 08-19-2022 Protein Ql (U) Negative Negative [facility] Serum or plasma calcium huyen urement (mass/volume)Ordered By: ED PROVIDER on 08-19-2022 Calcium [Mass/Vol] 8.7 mg/dL 8.5-10.1 [facility] Serum or plasma creatinine m easurement (mass/volume)Ordered By: ED PROVIDER on 08-19-2022 Creatinine [Mass/Vol] 2.19 mg/dL 0.55-1.02 [facility] Comment on above: The validity of the calculated GFR & GFRAA in patients over 70 years has not been determined. Clinical correlation is essential. Serum or plasma urea nitroge n measurement (mass/volume)Ordered By: ED PROVIDER on 08-19-2022 Urea nitrogen [Mass/Vol] 50 mg/dL 7-[address] [facility] Squamous epithelial cells de tection in urine sediment by light microscopyOrdered By: Dr. Albright on 08-19-2022 Epithelial cells.squamous LM Ql (Urine sed) 0-5 SEEN /hpf 5-[address] [facility] Stool gastrointestinal hemog lobin detection by immunologic methodOrdered By: Dr. Albright on 08-19-2022 Lower GI hemoglobin IA Ql (Stl) [facility] Thin prep Papanicolaou smear with manual screeningOrdered By: ED PROVIDER on 08-19-2022 Thin prep Papanicolaou smear with manual screening 10 5-[address] [facility] Urine blood detectionOrdered By: Dr. Albright on 08-19-2022 RBC Ql (U) Negative Negative [facility] RBC Ql (U) 0 SEEN /hpf 0-[address] [facility] Urine clarityOrdered By: Dr. Albright on 08-19-2022 Clarity (U) Sl. Cloudy Clear [facility] Urine color determinationOrd ered By: Dr. Albright on 08-19-2022 Color (U) Yellow Yellow [facility] Urine glucose detectionOrder ed By: Dr. Albright on 08-19-2022 Glucose Ql (U) Normal mg/dl Normal [facility] Urine leukocyte esterase det ection by dipstickOrdered By: Dr. Albright on 08-19-2022 Leukocyte esterase Test strip Ql (U) Negative Negative [facility] Urine pHOrdered By: Dr. Ronnie tom on 08-19-2022 pH (U) 6.0 [pH] 5.0 - 8.[address] [facility] Urine sediment bacteria coun t by microscopy (number/high power field)Ordered By: Dr. Albright on 08-19-2022 Bacteria LM.HPF (Urine sed) [#/Area] 0 /[HPF] None Seen [facility] Urine specific gravity measu rementOrdered By: Dr. Albright on 08-19-2022 Specific gravity (U) [Rel density] 1.010 1.002-1.[address] [facility] Urobilinogen Auto test strip Ql (U)Ordered By: Dr. Albright on 08-19-2022 Urobilinogen Ql (U) Normal mg/dl Normal [facility] Culture, urineOrdered By: Dr Brayden Yun on 08-15-2022 Bacteria identified Cx Nom (U) Escherichia coli [facility] Absolute lymphocyte countOrd ered By: Dr. Yun on 08-12-2022 Lymphocytes Auto (Unsp spec) [#/Vol] 0.75 10*3/uL 0.83-4.[address] [facility] Basophil percentageOrdered B y: Dr. Yun on 08-12-2022 Basophil percentage 5-10 SEEN /hpf 0-5 [facility] Basophils/100 WBC (Bld) 0.2 % 0-1 [facility] Chloride [Moles/Vol] 99 mmol/L 98-107 [facility] Eosinophils/100 WBC (Bld) 0.1 % 0-[address] [facility] Glucose [Mass/Vol] 159 mg/dL 74-106 [facility] Comment on above: Fasting Glucose resu lt greater than or equal to 126 mg/dL suggests DIABETES MELLITUS per A.D.A. criteria. Neutrophils (Bld) [#/Vol] 10.0 10*3/uL 2.0-7.[address] [facility] Neutrophils/100 WBC (Bld) 88.3 % 47-[address] [facility] Potassium [Moles/Vol] 3.1 mmol/L 3.5-5.1 [facility] Sodium [Moles/Vol] 136 mmol/L 136-145 [facility] WBC (Bld) [#/Vol] 11.3 10*3/uL 4.4-11.0 [facility] Bilirubin Test strip Ql (U)O rdered By: Dr. Yun on 08-12-2022 Bilirubin Ql (U) Negative Negative [facility] Blood erythrocytes count (nu mber/volume)Ordered By: Dr. Yun on 08-12-2022 RBC (Bld) [#/Vol] 3.84 10*6/uL 4.2-5.4 [facility] Blood hemoglobin measurement (mass/volume)Ordered By: Dr. Yun on 08-12-2022 Hemoglobin (Bld) [Mass/Vol] 12.9 g/dL 12.0-15.[address] [facility] Blood lymphocytes/100 leukoc ytesOrdered By: Dr. Yun on 08-12-2022 Lymphocytes/100 WBC (Bld) 6.6 % 19-[address] [facility] Blood monocytes/100 leukocyt esOrdered By: Dr. Yun on 08-12-2022 Monocytes/100 WBC (Bld) 4.4 % 0-10 [facility] Blood platelet mean volumeOr dered By: Dr. Yun on 08-12-2022 Platelet mean volume (Bld) [Entitic vol] 11.0 fL 6.2-12.[address] [facility] Determination of erythrocyte mean corpuscular volume (MCV)Ordered By: Dr. Yun on 08-12-2022 MCV (RBC) [Entitic vol] 98.4 fL 81-99 [facility] Hematocrit Auto (Bld) [Volum e fraction]Ordered By: Dr. Yun on 08-12-2022 Hematocrit (Bld) [Volume fraction] 37.8 % 37-[address] [facility] Ketones Test strip Ql (U)Ord ered By: Dr. Yun on 08-12-2022 Ketones Ql (U) Negative Negative [facility] Laboratory - Chemistry and C hemistry - challengeOrdered By: Dr. Yun on 08-12-2022 CO2 [Moles/Vol] 22.0 mmol/L 21.0-32.[address] [facility] Urea nitrogen/Creatinine [Mass ratio] 30.8 mg/mg 10-[address] [facility] Laboratory - Hematology and Cell countsOrdered By: Dr. Yun on 08-12-2022 Erythrocyte distribution width (RBC) [Entitic vol] 44.9 fL 35.1-43.[address] [facility] Erythrocyte distribution width (RBC) [Ratio] 12.5 % 11.6-14.[address] [facility] Immature granulocytes/100 WBC (Bld) 0.400 % 0.0-0.[address] [facility] Comment on above: IG% - Immature Granu locytes (promyelocytes, myelocytes and metamyelocytes) > 1% indicates that a LEFT SHIFT is Present. MCH (RBC) [Entitic mass] 33.6 pg 27.0-32.[address] [facility] Nucleated RBC/100 WBC (Bld) [Ratio] 0 % 0-[address] [facility] MCHC Auto (RBC) [Mass/Vol]Or dered By: Dr. Yun on 08-12-2022 MCHC (RBC) [Mass/Vol] 34.1 g/dL 32-36 [facility] Mucus LM Ql (Urine sed)Order ed By: Dr. Yun on 08-12-2022 Mucus Ql (Urine sed) 0 SEEN /hpf [facility] Nitrite Test strip Ql (U)Ord ered By: Dr. Yun on 08-12-2022 Nitrite Ql (U) Positive Negative [facility] No Panel InformationOrdered By: Dr. Yun on 08-12-2022 Estimated Creatinine Clearance Calc 14.26 ml/min [facility] Estimated GFR (MDRD) Amer 24 mL/min >[address] [facility] Comment on above: GFR Calc Estimated GFR (MDRD) Non-Af Amer 20 mL/min >[address] [facility] Comment on above: Non- GFR Calc Platelets bldOrdered By: Dr. Yun on 08-12-2022 Platelets (Bld) [#/Vol] 161 10*3/uL 150-[address] [facility] Protein Test strip Ql (U)Ord ered By: Dr. Yun on 08-12-2022 Protein Ql (U) 15 mg/dl Negative [facility] Serum or plasma calcium huyen urement (mass/volume)Ordered By: Dr. Yun on 08-12-2022 Calcium [Mass/Vol] 9.1 mg/dL 8.5-10.1 [facility] Serum or plasma creatinine m easurement (mass/volume)Ordered By: Dr. Yun on 08-12-2022 Creatinine [Mass/Vol] 2.53 mg/dL 0.55-1.02 [facility] Comment on above: The validity of the calculated GFR & GFRAA in patients over 70 years has not been determined. Clinical correlation is essential. Serum or plasma urea nitroge n measurement (mass/volume)Ordered By: Dr. Yun on 08-12-2022 Urea nitrogen [Mass/Vol] 78 mg/dL 7-[address] [facility] Squamous epithelial cells de tection in urine sediment by light microscopyOrdered By: Dr. Yun on 08-12-2022 Epithelial cells.squamous LM Ql (Urine sed) 0-5 SEEN /hpf 5-[address] [facility] Thin prep Papanicolaou smear with manual screeningOrdered By: Dr. Yun on 08-12-2022 Thin prep Papanicolaou smear with manual screening 15 5-[address] [facility] Urine blood detectionOrdered By: Dr. Yun on 08-12-2022 RBC Ql (U) 10 /ul Negative [facility] RBC Ql (U) 0 SEEN /hpf 0-[address] [facility] Urine clarityOrdered By: Dr. Yun on 08-12-2022 Clarity (U) Clear Clear [facility] Urine color determinationOrd ered By: Dr. Yun on 08-12-2022 Color (U) Yellow Yellow [facility] Urine glucose detectionOrder ed By: Dr. Yun on 08-12-2022 Glucose Ql (U) Normal mg/dl Normal [facility] Urine leukocyte esterase det ection by dipstickOrdered By: Dr. Yun on 08-12-2022 Leukocyte esterase Test strip Ql (U) 500 /ul Negative [facility] Urine pHOrdered By: Dr. Sarah grover on 08-12-2022 pH (U) 6.0 [pH] 5.0 - 8.[address] [facility] Urine sediment bacteria coun t by microscopy (number/high power field)Ordered By: Dr. Yun on 08-12-2022 Bacteria LM.HPF (Urine sed) [#/Area] 2 /[HPF] None Seen [facility] Urine specific gravity measu rementOrdered By: Dr. Yun on 08-12-2022 Specific gravity (U) [Rel density] 1.015 1.002-1.[address] [facility] Urobilinogen Auto test strip Ql (U)Ordered By: Dr. Yun on 08-12-2022 Urobilinogen Ql (U) Normal mg/dl Normal [facility] No Panel Informationon 06-09 BLANK _ [facility] Implant Date 04/29/2019 [facility] Model 5076 [employer] Novus [facility] PACEMAKER REMOTE CHECKon AV Delay Adaptive Paced Minimum (ms) 180 ms [facility] AV Delay Adaptive Sensed Minimum (ms) 150 ms [facility] AV Delay Adaptive Status DISABLED [facility] Battery Voltage (volts) 3.[address] [facility] Evert RA Pacing Amplitude (volts) 1.5 V [facility] Evert RA Pacing Polarity BI [facility] Evert RA Pacing Pulse Width (ms) 0.4 ms [facility] Evert RA Sensing Amplitude (mvolts) 0.15 mV [facility] Evert RA Sensing Blanking Period (ms) 150 ms [facility] Evert RA Sensing Polarity BI [facility] Evert RA Sensing Refractory Period (ms) Auto [facility] Evert RV Pacing Amplitude (volts) 2 V [facility] Evert RV Pacing Polarity BI [facility] Evert RV Pacing Pulse Width (ms) 0.4 ms [facility] Evert RV Sensing Amplitude (mvolts) 0.9 mV [facility] Evert RV Sensing Blanking Period (ms) 200 ms [facility] Evert RV Sensing Polarity BI [facility] Hysteresis Rate (bpm) DISABLED [facility] Lead1 Mfg MDT [facility] Lead2 Mfg MDT [facility] Location RV [facility] Location RA [facility] Lower Rate (bpm) 60 {beats}/min [facility] Max Sensor Rate (bmp) 120 {beats}/min [facility] Model [id number] ESPINAL [facility] PM-Device Mfg MDAna [facility] PM-Percent Pacing (A) 7.3 % [facility] PM-Percent Pacing (V) 99.95 % [facility] PM-PMT Intervention DISABLED [facility] PM-PVC Intervention ENABLED [facility] PM-Rate Modulation Acceleration Reaction 30 s [facility] PM-Rate Modulation ADL Rate (bpm) 85 {beats}/min [facility] PM-Rate Modulation Deceleration Exercise [facility] PM-Rate Modulation Mcduffie 3 [facility] PM-Rate Modulation Threshold MediumLow [facility] RA Bipolar Impedance ohms 418 ohm [facility] RA Unipolar Impedance ohms 304 ohm [facility] RV Bipolar Impedance ohms 418 ohm [facility] RV Unipolar Impedance 380 ohm [facility] Serial Number [id number] [facility] Serial Number [id number] [facility] Serial Number [id number] [facility] Thresh RA Capture Amplitude (volts) 1 V [facility] Thresh RA Capture Duration (ms) 0.4 ms [facility] Thresh RA Sensing Amplitude (mvolts) 2.125 mV [facility] Thresh RV Capture Amplitude (volts) 0.75 V [facility] Thresh RV Capture Duration (ms) 0.4 ms [facility] Thresh RV Sensing Amplitude (mvolts) 21.75 mV [facility] Tracking Rate (bpm) 130 {beats}/min [facility] Absolute lymphocyte countOrd ered By: Dr. Neal on 06-02-2022 Lymphocytes Auto (Unsp spec) [#/Vol] 1.16 10*3/uL 0.83-4.[address] [facility] Basophil percentageOrdered B y: Dr. Neal on 06-02-2022 Basophils/100 WBC (Bld) 0.5 % 0-1 [facility] Chloride [Moles/Vol] 111 mmol/L 98-107 [facility] Eosinophils/100 WBC (Bld) 3.4 % 0-[address] [facility] Glucose [Mass/Vol] 87 mg/dL 74-106 [facility] Neutrophils (Bld) [#/Vol] 4.3 10*3/uL 2.0-7.[address] [facility] Neutrophils/100 WBC (Bld) 69.1 % 47-[address] [facility] Potassium [Moles/Vol] 3.6 mmol/L 3.5-5.1 [facility] Comment on above: Slight Hemolysis, Re sult may be falsely increased. Sodium [Moles/Vol] 138 mmol/L 136-145 [facility] WBC (Bld) [#/Vol] 6.2 10*3/uL 4.4-11.0 [facility] Blood erythrocytes count (nu mber/volume)Ordered By: Dr. Neal on 06-02-2022 RBC (Bld) [#/Vol] 2.89 10*6/uL 4.2-5.4 [facility] Blood hemoglobin measurement (mass/volume)Ordered By: Dr. Neal on 06-02-2022 Hemoglobin (Bld) [Mass/Vol] 9.6 g/dL 12.0-15.[address] [facility] Blood lymphocytes/100 leukoc ytesOrdered By: Dr. Neal on 06-02-2022 Lymphocytes/100 WBC (Bld) 18.8 % 19-[address] [facility] Blood monocytes/100 leukocyt esOrdered By: Dr. Neal on 06-02-2022 Monocytes/100 WBC (Bld) 7.6 % 0-10 [facility] Blood platelet mean volumeOr dered By: Dr. Neal on 06-02-2022 Platelet mean volume (Bld) [Entitic vol] 10.7 fL 6.2-12.[address] [facility] Culture, urineOrdered By: Dr Brayden Neal on 06-02-2022 Bacteria identified Cx Nom (U) Escherichia coli [facility] Determination of erythrocyte mean corpuscular volume (MCV)Ordered By: Dr. Neal on 06-02-2022 MCV (RBC) [Entitic vol] 102.4 fL 81-99 [facility] Hematocrit Auto (Bld) [Volum e fraction]Ordered By: Dr. Neal on 06-02-2022 Hematocrit (Bld) [Volume fraction] 29.6 % 37-[address] [facility] Laboratory - Chemistry and C hemistry - challengeOrdered By: Dr. Neal on 06-02-2022 CO2 [Moles/Vol] 21.0 mmol/L 21.0-32.[address] [facility] Magnesium [Mass/Vol] 1.7 mg/dL 1.6-2.6 [facility] Comment on above: Slight Hemolysis, Re sult may be falsely increased. Urea nitrogen/Creatinine [Mass ratio] 36.4 mg/mg 10-[address] [facility] Laboratory - Hematology and Cell countsOrdered By: Dr. Neal on 06-02-2022 Erythrocyte distribution width (RBC) [Entitic vol] 50.2 fL 35.1-43.[address] [facility] Erythrocyte distribution width (RBC) [Ratio] 13.2 % 11.6-14.[address] [facility] Immature granulocytes/100 WBC (Bld) 0.600 % 0.0-0.[address] [facility] Comment on above: IG% - Immature Granu locytes (promyelocytes, myelocytes and metamyelocytes) > 1% indicates that a LEFT SHIFT is Present. MCH (RBC) [Entitic mass] 33.2 pg 27.0-32.[address] [facility] Nucleated RBC/100 WBC (Bld) [Ratio] 0 % 0-5 [facility] Auto (RBC) [Mass/Vol]Or dered By: Dr. Neal on 06-02-2022 MCHC (RBC) [Mass/Vol] 32.4 g/dL 32-36 [facility] No Panel InformationOrdered By: Dr. Neal on 06-02-2022 Estimated Creatinine Clearance Calc 31.82 ml/min [facility] Estimated GFR (MDRD) Amer 51 mL/min >[address] [facility] Comment on above: GFR Calc Estimated GFR (MDRD) Non-Af Amer 42 mL/min >[address] [facility] Comment on above: Non- GFR Calc Platelets bldOrdered By: Dr. Neal on 06-02-2022 Platelets (Bld) [#/Vol] 107 10*3/uL 150-[address] [facility] Serum or plasma calcium huyen urement (mass/volume)Ordered By: Dr. Neal on 06-02-2022 Calcium [Mass/Vol] 8.4 mg/dL 8.5-10.1 [facility] Serum or plasma creatinine m easurement (mass/volume)Ordered By: Dr. Neal on 06-02-2022 Creatinine [Mass/Vol] 1.29 mg/dL 0.55-1.02 [facility] Comment on above: The validity of the calculated GFR & GFRAA in patients over 70 years has not been determined. Clinical correlation is essential. Serum or plasma urea nitroge n measurement (mass/volume)Ordered By: Dr. Neal on 06-02-2022 Urea nitrogen [Mass/Vol] 47 mg/dL 7-[address] [facility] Thin prep Papanicolaou smear with manual screeningOrdered By: Dr. Neal on 06-02-2022 Thin prep Papanicolaou smear with manual screening 6 5-[address] [facility] Blood platelet adequacy dete ction by light microscopyOrdered By: Dr. Neal on 06-01-2022 Platelets LM Ql (Bld) MOD DEC ADEQ [facility] Clostridium difficile detect ion by polymerase chain reactionOrdered By: Dr. Neal on 06-01-2022 C. difficile DNA MURALI+probe Ql (Unsp spec) [facility] Basophil percentageOrdered B y: Dr. Neal on 05-31-2022 Basophil percentage 3.5 mg/dL 2.5-4.9 [facility] Bilirubin [Mass/Vol] 0.40 mg/dL 0.20-1.00 [facility] Comment on above: For patients on eltr ombopag therapy, use of Dimension [place] TBIL is not recommended. Protein [Mass/Vol] 4.9 g/dL 6.4-8.2 [facility] Laboratory - Chemistry and C hemistry - challengeOrdered By: Dr. Neal on 05-31-2022 ALP [Catalytic activity/Vol] 73 U/L 45-[address] [facility] ALT [Catalytic activity/Vol] 8 U/L 13-[address] [facility] Globulin (S) [Mass/Vol] 2.6 g/dL 2.2-4.2 [facility] No Panel InformationOrdered By: Dr. Neal on 05-31-2022 Thyroid Stimulating Hormone (TSH) 1.29 uIU/mL 0.358-3.[address] [facility] Serum or plasma albumin huyen urement (mass/volume)Ordered By: Dr. Neal on 05-31-2022 Albumin [Mass/Vol] 2.3 g/dL 3.2-5.0 [facility] Serum or plasma albumin/glob ulin mass ratioOrdered By: Dr. Neal on 05-31-2022 Albumin/Globulin [Mass ratio] 0.9 {ratio} 0.9-2.[address] [facility] Thin prep Papanicolaou smear with manual screeningOrdered By: Dr. Neal on 05-31-2022 Thin prep Papanicolaou smear with manual screening 27 U/L 15-[address] [facility] Absolute lymphocyte counton 05-30-2022 Lymphocytes Auto (Unsp spec) [#/Vol] 1.19 10*3/uL 0.83-4.[address] [facility] Work Phone: Basophil percentageOrdered B y: Dr. Neal on 05-30-2022 Basophil percentage 10-25 SEEN /hpf 0-[address] [facility] Basophil percentageon 2021 Basophils/100 WBC (Bld) 0.2 % 0-1 [facility] Work Phone: Chloride [Moles/Vol] 102 mmol/L 98-107 [facility] Work Phone: Eosinophils/100 WBC (Bld) 0.7 % 0-[address] [facility] Work Phone: Glucose [Mass/Vol] 106 mg/dL 74-106 [facility] Work Phone: Comment on above: Fasting Glucose resu lt from 100 to 125 mg/dL suggests IMPAIRED HOMEOSTASIS per A.D.A. criteria. Neutrophils (Bld) [#/Vol] 7.8 10*3/uL 2.0-7.[address] [facility] Work Phone: Neutrophils/100 WBC (Bld) 80.1 % 47-[address] [facility] Work Phone: Potassium [Moles/Vol] 3.0 mmol/L 3.5-5.1 [facility] Work Phone: Sodium [Moles/Vol] 135 mmol/L 136-145 [facility] Work Phone: WBC (Bld) [#/Vol] 9.8 10*3/uL 4.4-11.0 [facility] Work Phone: [phone] Bilirubin Test strip Ql (U)O rdered By: Dr. Neal on 05-30-2022 Bilirubin Ql (U) Negative Negative [facility] Blood erythrocytes count (nu mber/volume)on 05-30-2022 RBC (Bld) [#/Vol] 3.49 10*6/uL 4.2-5.4 [facility] Work Phone: Blood hemoglobin measurement (mass/volume)on 05-30-2022 Hemoglobin (Bld) [Mass/Vol] 11.3 g/dL 12.0-15.[address] [facility] [facility] Work Phone: Blood lymphocytes/100 leukoc yteson 05-30-2022 Lymphocytes/100 WBC (Bld) 12.2 % 19-[address] [facility] Work Phone: Blood monocytes/100 leukocyt eson 05-30-2022 Monocytes/100 WBC (Bld) 6.5 % 0-10 [facility] Work Phone: Blood platelet mean volumeon 05-30-2022 Platelet mean volume (Bld) [Entitic vol] 11.3 fL 6.2-12.[address] [facility] Work Phone: [phone] COVID-19 virus antigen assay Ordered By: Dr. Neal on 05-30-2022 SARS-CoV-2 (COVID-19) Ag IA.rapid Ql (Resp) [facility] Determination of erythrocyte mean corpuscular volume (MCV)on 05-30-2022 MCV (RBC) [Entitic vol] 97.4 fL 81-99 [facility] Work Phone: [phone] Hematocrit Auto (Bld) [Volum e fraction]on 05-30-2022 Hematocrit (Bld) [Volume fraction] 34.0 % 37-[address] [facility] Work Phone: [phone] Ketones Test strip Ql (U)Ord ered By: Dr. Neal on 05-30-2022 Ketones Ql (U) Negative Negative [facility] Laboratory - Chemistry and C hemistry - challengeon 05-30-2022 CO2 [Moles/Vol] 23.0 mmol/L 21.0-32.[address] [facility] Work Phone: Urea nitrogen/Creatinine [Mass ratio] 30.4 mg/mg 10-[address] [facility] Work Phone: [phone] Laboratory - Hematology and Cell countson 05-30-2022 Erythrocyte distribution width (RBC) [Entitic vol] 46.9 fL 35.1-43.[address] [facility] Work Phone: [phone] Erythrocyte distribution width (RBC) [Ratio] 13.2 % 11.6-14.[address] [facility] Work Phone: [phone] Immature granulocytes/100 WBC (Bld) 0.300 % 0.0-0.[address] [facility] Work Phone: Comment on above: IG% - Immature Granu locytes (promyelocytes, myelocytes and metamyelocytes) > 1% indicates that a LEFT SHIFT is Present. MCH (RBC) [Entitic mass] 32.4 pg 27.0-32.[address] [facility] Work Phone: Nucleated RBC/100 WBC (Bld) [Ratio] 0 % 0-[address] [facility] Work Phone: MCHC Auto (RBC) [Mass/Vol]on 05-30-2022 MCHC (RBC) [Mass/Vol] 33.2 g/dL 32-36 [facility] Work Phone: Mucus LM Ql (Urine sed)Order ed By: Dr. Neal on 05-30-2022 Mucus Ql (Urine sed) 0 SEEN /hpf [facility] Nitrite Test strip Ql (U)Ord ered By: Dr. Neal on 05-30-2022 Nitrite Ql (U) Positive Negative [facility] No Panel Informationon 05-30 Estimated Creatinine Clearance Calc 15.04 ml/min [facility] Work Phone: Estimated GFR (MDRD) Amer 22 mL/min >[address] [facility] Work Phone: Comment on above: GFR Calc Estimated GFR (MDRD) Non-Af Amer 18 mL/min >[address] [facility] Work Phone: Comment on above: Non- GFR Calc Platelets bldon 05-30-2022 Platelets (Bld) [#/Vol] 109 10*3/uL 150-[address] [facility] Work Phone: [phone] Protein Test strip Ql (U)Ord ered By: Dr. Neal on 05-30-2022 Protein Ql (U) Negative Negative [facility] Serum or plasma calcium huyen urement (mass/volume)on 05-30-2022 Calcium [Mass/Vol] 8.6 mg/dL 8.5-10.1 [facility] Work Phone: [phone] Serum or plasma creatinine m easurement (mass/volume)on 05-30-2022 Creatinine [Mass/Vol] 2.73 mg/dL 0.55-1.02 [facility] Work Phone: Comment on above: The validity of the calculated GFR & GFRAA in patients over 70 years has not been determined. Clinical correlation is essential. Serum or plasma urea nitroge n measurement (mass/volume)on 05-30-2022 Urea nitrogen [Mass/Vol] 83 mg/dL 7-[address] [facility] Work Phone: Squamous epithelial cells de tection in urine sediment by light microscopyOrdered By: Dr. Neal on 05-30-2022 Epithelial cells.squamous LM Ql (Urine sed) 0-5 SEEN /hpf 5-[address] [facility] Thin prep Papanicolaou smear with manual screeningon 05-30-2022 Thin prep Papanicolaou smear with manual screening 10 5-[address] [facility] Work Phone: Urine blood detectionOrdered By: Dr. Neal on 05-30-2022 RBC Ql (U) Negative Negative [facility] RBC Ql (U) 0-5 SEEN /hpf 0-[address] [facility] Urine clarityOrdered By: Dr. Neal on 05-30-2022 Clarity (U) Clear Clear [facility] Urine color determinationOrd ered By: Dr. Neal on 05-30-2022 Color (U) Straw Yellow [facility] Urine glucose detectionOrder ed By: Dr. Neal on 05-30-2022 Glucose Ql (U) Normal mg/dl Normal [facility] Urine leukocyte esterase det ection by dipstickOrdered By: Dr. Neal on 05-30-2022 Leukocyte esterase Test strip Ql (U) 100 /ul Negative [facility] Urine pHOrdered By: Dr. Neal on 05-30-2022 pH (U) 6.0 [pH] 5.0 - 8.[address] [facility] Urine sediment bacteria coun t by microscopy (number/high power field)Ordered By: Dr. Neal on 05-30-2022 Bacteria LM.HPF (Urine sed) [#/Area] 3 /[HPF] None Seen [facility] Urine specific gravity measu rementOrdered By: Dr. Neal on 05-30-2022 Specific gravity (U) [Rel density] 1.015 1.002-1.[address] [facility] Urobilinogen Auto test strip Ql (U)Ordered By: Dr. Neal on 05-30-2022 Urobilinogen Ql (U) Normal mg/dl Normal [facility] No Panel Informationon 03-05 BLANK _ [facility] Implant Date 04/29/2019 [facility] Model 5076 [employer] Novus [facility] PACEMAKER REMOTE CHECKon AV Delay Adaptive Paced Minimum (ms) 180 ms [facility] AV Delay Adaptive Sensed Minimum (ms) 150 ms [facility] AV Delay Adaptive Status DISABLED [facility] Battery Voltage (volts) 3.01 V C [facility] Evert RA Pacing Amplitude (volts) 1.5 V [facility] Evert RA Pacing Polarity BI [facility] Evert RA Pacing Pulse Width (ms) 0.4 ms [facility] Evert RA Sensing Amplitude (mvolts) 0.15 mV [facility] Evert RA Sensing Blanking Period (ms) 150 ms [facility] Evert RA Sensing Polarity BI [facility] Evert RA Sensing Refractory Period (ms) Auto [facility] Evert RV Pacing Amplitude (volts) 2 V [facility] Evert RV Pacing Polarity BI [facility] Evert RV Pacing Pulse Width (ms) 0.4 ms [facility] Evert RV Sensing Amplitude (mvolts) 0.9 mV [facility] Evert RV Sensing Blanking Period (ms) 200 ms [facility] Evert RV Sensing Polarity BI [facility] Hysteresis Rate (bpm) DISABLED [facility] Lead1 Mfg MDT [facility] Lead2 Mfg MDT [facility] Location RV [facility] Location RA [facility] Lower Rate (bpm) 60 {beats}/min [facility] Max Sensor Rate (bmp) 120 {beats}/min [facility] Model [id number] ESPINAL [facility] PM-Device Mfg SOFIA [facility] PM-Percent Pacing (A) 7.12 % [facility] PM-Percent Pacing (V) 99.96 % [facility] PM-PMT Intervention DISABLED [facility] PM-PVC Intervention ENABLED [facility] PM-Rate Modulation Acceleration Reaction 30 s [facility] PM-Rate Modulation ADL Rate (bpm) 85 {beats}/min [facility] PM-Rate Modulation Deceleration Exercise [facility] PM-Rate Modulation Mcduffie 3 [facility] PM-Rate Modulation Threshold MediumLow [facility] RA Bipolar Impedance ohms 437 ohm [facility] RA Unipolar Impedance ohms 304 ohm [facility] RV Bipolar Impedance ohms 475 ohm [facility] RV Unipolar Impedance 437 ohm [facility] Serial Number [id number] [facility] Serial Number [id number] [facility] Serial Number [id number] [facility] Thresh RA Capture Amplitude (volts) 1 V [facility] Thresh RA Capture Duration (ms) 0.4 ms [facility] Thresh RA Sensing Amplitude (mvolts) 1.75 mV [facility] Thresh RV Capture Amplitude (volts) 0.75 V [facility] Thresh RV Capture Duration (ms) 0.4 ms [facility] Thresh RV Sensing Amplitude (mvolts) 15.625 mV [facility] Tracking Rate (bpm) 130 {beats}/min [facility] No Panel Informationon 11-24 BLANK _ [facility] Implant Date 04/29/2019 [facility] Model 5076 [employer] Nov[employer] [facility] PACEMAKER REMOTE CHECKon AV Delay Adaptive Paced Minimum (ms) 180 ms [facility] AV Delay Adaptive Sensed Minimum (ms) 150 ms [facility] AV Delay Adaptive Status DISABLED [facility] Battery Voltage (volts) 3.01 V [facility] Evert RA Pacing Amplitude (volts) 1.5 V [facility] Evert RA Pacing Polarity BI [facility] Evert RA Pacing Pulse Width (ms) 0.4 ms [facility] Evert RA Sensing Amplitude (mvolts) 0.15 mV [facility] Evert RA Sensing Blanking Period (ms) 150 ms [facility] Evert RA Sensing Polarity BI [facility] Evert RA Sensing Refractory Period (ms) Auto [facility] Evert RV Pacing Amplitude (volts) 2 V [facility] Evert RV Pacing Polarity BI [facility] Evert RV Pacing Pulse Width (ms) 0.4 ms [facility] Evert RV Sensing Amplitude (mvolts) 0.9 mV [facility] Evert RV Sensing Blanking Period (ms) 200 ms [facility] Evert RV Sensing Polarity BI [facility] Hysteresis Rate (bpm) DISABLED [facility] Lead1 Jerica BLACK [facility] Lead2 Jerica BLACK [facility] Location RV [facility] Location RA [facility] Lower Rate (bpm) 60 {beats}/min [facility] Max Sensor Rate (bmp) 120 {beats}/min [facility] Model [id number] ESPINAL [facility] PM-Device Jerica BLACK [facility] PM-Percent Pacing (A) 5.62 % [facility] PM-Percent Pacing (V) 99.96 % [facility] PM-PMT Intervention DISABLED [facility] PM-PVC Intervention ENABLED [facility] PM-Rate Modulation Acceleration Reaction 30 s [facility] PM-Rate Modulation ADL Rate (bpm) 85 {beats}/min [facility] PM-Rate Modulation Deceleration Exercise [facility] PM-Rate Modulation Mcduffie 3 [facility] PM-Rate Modulation Threshold MediumLow [facility] RA Bipolar Impedance ohms 418 ohm [facility] RA Unipolar Impedance ohms 304 ohm [facility] RV Bipolar Impedance ohms 456 ohm [facility] RV Unipolar Impedance 399 ohm [facility] Serial Number [id number] [facility] Serial Number [id number] [facility] Serial Number [id number] [facility] Thresh RA Capture Amplitude (volts) 1 V [facility] Thresh RA Capture Duration (ms) 0.4 ms [facility] Thresh RA Sensing Amplitude (mvolts) 1.875 mV [facility] Thresh RV Capture Amplitude (volts) 0.75 V [facility] Thresh RV Capture Duration (ms) 0.4 ms [facility] Thresh RV Sensing Amplitude (mvolts) 7.5 mV [facility] Tracking Rate (bpm) 130 {beats}/min [facility] C-REACTIVE PROTEIN (CRP)on 0 11-11-2021 CRP [Mass/Vol] mg/L <0.9 mg/dL [facility] No Panel Informationon 11-11 [facility] Absolute lymphocyte counton 10-30-2021 Lymphocytes Auto (Unsp spec) [#/Vol] 0.98 10*3/uL 0.83-4.[address] [facility] Work Phone: Basophil percentageon 2021 Basophil percentage 0-5 SEEN /hpf [facility] Work Phone: Basophils/100 WBC (Bld) 0.4 % 0-1 [facility] Work Phone: Bilirubin [Mass/Vol] 0.30 mg/dL 0.20-1.00 [facility] Work Phone: Comment on above: For patients on eltr ombopag therapy, use of Dimension [place] TBIL is not recommended. Chloride [Moles/Vol] 111 mmol/L 98-107 [facility] Work Phone: Eosinophils/100 WBC (Bld) 1.5 % 0-[address] [facility] Work Phone: Glucose [Mass/Vol] 85 mg/dL 74-106 [facility] Work Phone: Neutrophils (Bld) [#/Vol] 6.4 10*3/uL 2.0-7.[address] [facility] Work Phone: Neutrophils/100 WBC (Bld) 75.4 % 47-[address] [facility] Work Phone: Potassium [Moles/Vol] 4.1 mmol/L 3.5-5.1 [facility] Work Phone: Protein [Mass/Vol] 6.3 g/dL 6.4-8.2 [facility] Work Phone: Sodium [Moles/Vol] 138 mmol/L 136-145 [facility] Work Phone: WBC (Bld) [#/Vol] 8.4 10*3/uL 4.4-11.0 [facility] Work Phone: Bilirubin Test strip Ql (U)o n 10-30-2021 Bilirubin Ql (U) Negative Negative [facility] Work Phone: Blood erythrocytes count (nu mber/volume)on 10-30-2021 RBC (Bld) [#/Vol] 2.76 10*6/uL 4.2-5.4 [facility] Work Phone: Blood hemoglobin measurement (mass/volume)on 10-30-2021 Hemoglobin (Bld) [Mass/Vol] 9.2 g/dL 12.0-15.[address] [facility] Work Phone: Blood lymphocytes/100 leukoc yteson 10-30-2021 Lymphocytes/100 WBC (Bld) 11.6 % 19-[address] [facility] Work Phone: Blood monocytes/100 leukocyt eson 10-30-2021 Monocytes/100 WBC (Bld) 6.8 % 0-10 [facility] Work Phone: [phone] Blood platelet mean volumeon 10-30-2021 Platelet mean volume (Bld) [Entitic vol] 9.6 fL 6.2-12.[address] [facility] Work Phone: [phone] Determination of erythrocyte mean corpuscular volume (MCV)on 10-30-2021 MCV (RBC) [Entitic vol] 102.5 fL 81-99 [facility] Work Phone: Hematocrit Auto (Bld) [Volum e fraction]on 10-30-2021 Hematocrit (Bld) [Volume fraction] 28.3 % 37-[address] [facility] Work Phone: [phone] Ketones Test strip Ql (U)on 10-30-2021 Ketones Ql (U) Negative Negative [facility] Work Phone: Laboratory - Chemistry and C hemistry - challengeon 10-30-2021 ALP [Catalytic activity/Vol] 100 U/L 45-[address] [facility] Work Phone: [phone] ALT [Catalytic activity/Vol] 9 U/L 13-[address] [facility] Work Phone: [phone] CO2 [Moles/Vol] 21.0 mmol/L 21.0-32.[address] [facility] Work Phone: [phone] Globulin (S) [Mass/Vol] 3.8 g/dL 2.2-4.2 [facility] Work Phone: [phone] Urea nitrogen/Creatinine [Mass ratio] 15.1 mg/mg 10-[address] [facility] Work Phone: [phone] Laboratory - Hematology and Cell countson 10-30-2021 Erythrocyte distribution width (RBC) [Entitic vol] 47.0 fL 35.1-43.[address] [facility] Work Phone: [phone] Erythrocyte distribution width (RBC) [Ratio] 12.6 % 11.6-14.[address] [facility] Work Phone: [phone] Immature granulocytes/100 WBC (Bld) 4.300 % 0.0-0.[address] [facility] Work Phone: Comment on above: IG% - Immature Granu locytes (promyelocytes, myelocytes and metamyelocytes) > 1% indicates that a LEFT SHIFT is Present. MCH (RBC) [Entitic mass] 33.3 pg 27.0-32.[address] [facility] Work Phone: Nucleated RBC/100 WBC (Bld) [Ratio] 0 % 0-[address] [facility] Work Phone: [phone] MCHC Auto (RBC) [Mass/Vol]on 10-30-2021 MCHC (RBC) [Mass/Vol] 32.5 g/dL 32-36 [facility] Work Phone: Mucus LM Ql (Urine sed)on Mucus Ql (Urine sed) 0 SEEN /hpf [facility] Work Phone: [phone] Nitrite Test strip Ql (U)on 10-30-2021 Nitrite Ql (U) Positive Negative [facility] Work Phone: [phone] No Panel Informationon 10-30 Estimated Creatinine Clearance Calc 30.01 ml/min [facility] Work Phone: [phone] Estimated GFR (MDRD) Amer 47 mL/min >[address] [facility] Work Phone: Comment on above: GFR Calc Estimated GFR (MDRD) Non-Af Amer 39 mL/min >[address] [facility] Work Phone: [phone] Comment on above: Non- GFR Calc Platelets bldon 10-30-2021 Platelets (Bld) [#/Vol] 284 10*3/uL 150-[address] [facility] Work Phone: [phone] Protein Test strip Ql (U)on 10-30-2021 Protein Ql (U) Negative Negative [facility] Work Phone: [phone] Serum or plasma albumin huyen urement (mass/volume)on 10-30-2021 Albumin [Mass/Vol] 2.5 g/dL 3.2-5.0 [facility] Work Phone: Serum or plasma albumin/glob ulin mass ratioon 10-30-2021 Albumin/Globulin [Mass ratio] 0.7 {ratio} 0.9-2.[address] [facility] Work Phone: [phone] Serum or plasma calcium huyen urement (mass/volume)on 10-30-2021 Calcium [Mass/Vol] 8.1 mg/dL 8.5-10.1 [facility] Work Phone: [phone] Serum or plasma creatinine m easurement (mass/volume)on 10-30-2021 Creatinine [Mass/Vol] 1.39 mg/dL 0.55-1.[address] [facility] Work Phone: Comment on above: The validity of the calculated GFR & GFRAA in patients over 70 years has not been determined. Clinical correlation is essential. Serum or plasma urea nitroge n measurement (mass/volume)on 10-30-2021 Urea nitrogen [Mass/Vol] 21 mg/dL 7-[address] [facility] Work Phone: Squamous epithelial cells de tection in urine sediment by light microscopyon 10-30-2021 Epithelial cells.squamous LM Ql (Urine sed) 0 SEEN /hpf [facility] Work Phone: Thin prep Papanicolaou smear with manual screeningon 10-30-2021 Thin prep Papanicolaou smear with manual screening 13 U/L 15-[address] [facility] Work Phone: [phone] Thin prep Papanicolaou smear with manual screening 6 5-[address] [facility] Work Phone: [phone] Urine blood detectionon 10-04 RBC Ql (U) Negative Negative [facility] Work Phone: [phone] RBC Ql (U) 0 SEEN /hpf [facility] Work Phone: [phone] Urine clarityon 10-30-2021 Clarity (U) Clear Clear [facility] Work Phone: [phone] Urine color determinationon 10-30-2021 Color (U) Yellow Yellow [facility] Work Phone: [phone] Urine glucose detectionon Glucose Ql (U) Normal mg/dl Normal [facility] Work Phone: Urine leukocyte esterase det ection by dipstickon 10-30-2021 Leukocyte esterase Test strip Ql (U) 25 /ul Negative [facility] Work Phone: Urine pHon 10-30-2021 pH (U) 6.0 [pH] [facility] Work Phone: Urine sediment bacteria coun t by microscopy (number/high power field)on 10-30-2021 Bacteria LM.HPF (Urine sed) [#/Area] 2 /[HPF] None Seen [facility] Work Phone: Urine specific gravity measu rementon 10-30-2021 Specific gravity (U) [Rel density] 1.[address] [facility] Work Phone: Urobilinogen Auto test strip Ql (U)on 10-30-2021 Urobilinogen Ql (U) Normal mg/dl Normal [facility] Work Phone: CBC panel Auto (Bld)on 10-29 Erythrocyte distribution width (RBC) [Ratio] 12.7 % 11.5 - 15.0 % [facility] Hematocrit (Bld) [Volume fraction] 30.5 % Low 36.0 - 46.0 % [facility] Hemoglobin (Bld) [Mass/Vol] 9.4 g/dL Low 11.5 - 15.5 g/dL [facility] MCH (RBC) [Entitic mass] 32.9 pg 26. 0 - 34.0 pg [facility] MCHC (RBC) [Mass/Vol] 30.8 g/dL 30.5 - 36.0 g/dL [facility] MCV (RBC) [Entitic vol] 106.6 fL High 80.0 - 100.0 fL [facility] Nucleated RBC (Bld) [#/Vol] 10*3/uL <0.01 k/uL [facility] Platelet mean volume (Bld) [Entitic vol] 10.2 fL 9.0 - 12.7 fL [facility] Platelets (Bld) [#/Vol] 265 10*3/uL 150 - 400 k/uL [facility] RBC (Bld) [#/Vol] 2.86 10*6/uL Low 3.90 - 5.2 0 m/uL [facility] WBC (Bld) [#/Vol] 8.29 10*3/uL 3.70 - 11. 00 k/uL [facility] CBC panel Auto (Bld)on 10-28 Erythrocyte distribution width (RBC) [Ratio] 13.2 % 11.5 - 15.0 % [facility] Hematocrit (Bld) [Volume fraction] 30.9 % Low 36.0 - 46.0 % [facility] Hemoglobin (Bld) [Mass/Vol] 9.7 g/dL Low 11.5 - 15.5 g/dL [facility] MCH (RBC) [Entitic mass] 33.4 pg 26. 0 - 34.0 pg [facility] MCHC (RBC) [Mass/Vol] 31.4 g/dL 30.5 - 36.0 g/dL [facility] MCV (RBC) [Entitic vol] 106.6 fL High 80.0 - 100.0 fL [facility] Nucleated RBC (Bld) [#/Vol] 10*3/uL <0.01 k/uL [facility] Platelet mean volume (Bld) [Entitic vol] 11.4 fL 9.0 - 12.7 fL [facility] Platelets (Bld) [#/Vol] 155 10*3/uL 150 - 400 k/uL [facility] RBC (Bld) [#/Vol] 2.90 10*6/uL Low 3.90 - 5.2 0 m/uL [facility] WBC (Bld) [#/Vol] 7.73 10*3/uL 3.70 - 11. 00 k/uL [facility] Absolute lymphocyte counton 10-27-2021 Lymphocytes Auto (Unsp spec) [#/Vol] 0.72 10*3/uL 0.83-4.[address] [facility] Work Phone: Basophil percentageon 2021 Basophil percentage 25-50 SEEN /hpf [facility] Work Phone: Basophils/100 WBC (Bld) 0.6 % 0-1 [facility] Work Phone: Bilirubin [Mass/Vol] 0.40 mg/dL 0.20-1.00 [facility] Work Phone: Comment on above: For patients on eltr ombopag therapy, use of [employer] [place] TBIL is not recommended. Chloride [Moles/Vol] 109 mmol/L 98-107 [facility] Work Phone: Eosinophils/100 WBC (Bld) 2.9 % 0-[address] [facility] Work Phone: Glucose [Mass/Vol] 98 mg/dL 74-106 [facility] Work Phone: Neutrophils (Bld) [#/Vol] 5.2 10*3/uL 2.0-7.[address] [facility] Work Phone: Neutrophils/100 WBC (Bld) 72.7 % 47-[address] [facility] Work Phone: Potassium [Moles/Vol] 3.2 mmol/L 3.5-5.1 [facility] Work Phone: Protein [Mass/Vol] 5.6 g/dL 6.4-8.2 [facility] Work Phone: Sodium [Moles/Vol] 139 mmol/L 136-145 [facility] Work Phone: WBC (Bld) [#/Vol] 7.2 10*3/uL 4.4-11.0 [facility] Work Phone: Bilirubin Test strip Ql (U)o n 10-27-2021 Bilirubin Ql (U) Negative Negative [facility] Work Phone: Blood erythrocytes count (nu mber/volume)on 10-27-2021 RBC (Bld) [#/Vol] 2.89 10*6/uL 4.2-5.4 [facility] Work Phone: Blood hemoglobin measurement (mass/volume)on 10-27-2021 Hemoglobin (Bld) [Mass/Vol] 9.6 g/dL 12.0-15.[address] [facility] Work Phone: Blood lymphocytes/100 leukoc yteson 10-27-2021 Lymphocytes/100 WBC (Bld) 10.0 % 19-[address] [facility] Work Phone: Blood monocytes/100 leukocyt eson 10-27-2021 Monocytes/100 WBC (Bld) 9.6 % 0-10 [facility] Work Phone: [phone] Blood platelet mean volumeon 10-27-2021 Platelet mean volume (Bld) [Entitic vol] 10.3 fL 6.2-12.[address] [facility] Work Phone: [phone] Culture, urineon 10-27-2021 Bacteria identified Cx Nom (U) Presumptive E. coli [facility] Work Phone: [phone] Determination of erythrocyte mean corpuscular volume (MCV)on 10-27-2021 MCV (RBC) [Entitic vol] 103.8 fL 81-99 [facility] Work Phone: [phone] Hematocrit Auto (Bld) [Volum e fraction]on 10-27-2021 Hematocrit (Bld) [Volume fraction] 30.0 % 37-[address] [facility] Work Phone: Ketones Test strip Ql (U)on 10-27-2021 Ketones Ql (U) Negative Negative [facility] Work Phone: Laboratory - Chemistry and C hemistry - challengeon 10-27-2021 ALP [Catalytic activity/Vol] 115 U/L 45-[address] [facility] Work Phone: [phone] ALT [Catalytic activity/Vol] 15 U/L 13-[address] [facility] Work Phone: [phone] CO2 [Moles/Vol] 20.0 mmol/L 21.0-32.0 [facility] [facility] Work Phone: [phone] Globulin (S) [Mass/Vol] 3.1 g/dL 2.2-4.2 [facility] Work Phone: [phone] Urea nitrogen/Creatinine [Mass ratio] 31.9 mg/mg 10-[address] [facility] Work Phone: [phone] Laboratory - Hematology and Cell countson 10-27-2021 Erythrocyte distribution width (RBC) [Entitic vol] 49.8 fL 35.1-43.[address] [facility] Work Phone: [phone] Erythrocyte distribution width (RBC) [Ratio] 13.2 % 11.6-14.[address] [facility] Work Phone: [phone] Immature granulocytes/100 WBC (Bld) 4.200 % 0.0-0.[address] [facility] Work Phone: [phone] Comment on above: IG% - Immature Granu locytes (promyelocytes, myelocytes and metamyelocytes) > 1% indicates that a LEFT SHIFT is Present. MCH (RBC) [Entitic mass] 33.2 pg 27.0-32.[address] [facility] Work Phone: [phone] Nucleated RBC/100 WBC (Bld) [Ratio] 0 % 0-[address] [facility] Work Phone: [phone] MCHC Auto (RBC) [Mass/Vol]on 10-27-2021 MCHC (RBC) [Mass/Vol] 32.0 g/dL 32-36 [facility] Work Phone: [phone] Mucus LM Ql (Urine sed)on Mucus Ql (Urine sed) 0 SEEN /hpf [facility] Work Phone: [phone] Nitrite Test strip Ql (U)on 10-27-2021 Nitrite Ql (U) Positive Negative [facility] Work Phone: [phone] Panel Informationon 10-27 Estimated Creatinine Clearance Calc 30.23 ml/min [facility] Work Phone: [phone] Estimated GFR (MDRD) Amer 48 mL/min >[address] [facility] Work Phone: [phone] Comment on above: GFR Calc Estimated GFR (MDRD) Non-Af Amer 39 mL/min >[address] [facility] Work Phone: [phone] Comment on above: Non- GFR Calc Troponin I High Sensitivity 6 pg/mL 3.0-54.[address] [facility] Work Phone: [phone] Comment on above: Please Note: New Liz t Units and Gender Specific Reference Ranges. For more information see Policy Stat Procedure [place] High Sensitivity Troponin (TNIH) and attachments. Platelets bldon 10-27-2021 Platelets (Bld) [#/Vol] 176 10*3/uL 150-[address] [facility] Work Phone: Protein Test strip Ql (U)on 10-27-2021 Protein Ql (U) 15 mg/dl Negative [facility] Work Phone: [phone] Serum or plasma albumin huyen urement (mass/volume)on 10-27-2021 Albumin [Mass/Vol] 2.5 g/dL 3.2-5.0 [facility] Work Phone: [phone] Serum or plasma albumin/glob ulin mass ratioon 10-27-2021 Albumin/Globulin [Mass ratio] 0.8 {ratio} 0.9-2.[address] [facility] Work Phone: [phone] Serum or plasma calcium huyen urement (mass/volume)on 10-27-2021 Calcium [Mass/Vol] 7.7 mg/dL 8.5-10.1 [facility] Work Phone: [phone] Serum or plasma creatinine m easurement (mass/volume)on 10-27-2021 Creatinine [Mass/Vol] 1.38 mg/dL 0.55-1.02 [facility] Work Phone: Comment on above: The validity of the calculated GFR & GFRAA in patients over 70 years has not been determined. Clinical correlation is essential. Serum or plasma urea nitroge n measurement (mass/volume)on 10-27-2021 Urea nitrogen [Mass/Vol] 44 mg/dL 7-[address] [facility] Work Phone: [phone] Squamous epithelial cells de tection in urine sediment by light microscopyon 10-27-2021 Epithelial cells.squamous LM Ql (Urine sed) 0-5 SEEN /hpf [facility] Work Phone: [phone] Thin prep Papanicolaou smear with manual screeningon 10-27-2021 Thin prep Papanicolaou smear with manual screening 20 U/L 15-[address] [facility] Work Phone: [phone] Thin prep Papanicolaou smear with manual screening 10 5-[address] [facility] Work Phone: Urine blood detectionon 10-04 RBC Ql (U) 10 /ul Negative [facility] Work Phone: [phone] RBC Ql (U) 0-5 SEEN /hpf [facility] Work Phone: Urine clarityon 10-27-2021 Clarity (U) Sl. Cloudy Clear [facility] Work Phone: [phone] Urine color determinationon 10-27-2021 Color (U) Straw Yellow [facility] Work Phone: [phone] Urine glucose detectionon Glucose Ql (U) Normal mg/dl Normal [facility] Work Phone: [phone] Urine leukocyte esterase det ection by dipstickon 10-27-2021 Leukocyte esterase Test strip Ql (U) 500 /ul Negative [facility] Work Phone: Urine pHon 10-27-2021 pH (U) 6.0 [pH] [facility] Work Phone: Urine sediment bacteria coun t by microscopy (number/high power field)on 10-27-2021 Bacteria LM.HPF (Urine sed) [#/Area] 4 /[HPF] None Seen [facility] Work Phone: Urine specific gravity measu rementon 10-27-2021 Specific gravity (U) [Rel density] 1.[address] [facility] Work Phone: Urobilinogen Auto test strip Ql (U)on 10-27-2021 Urobilinogen Ql (U) Normal mg/dl Normal [facility] Work Phone: XR Knee - left 4 [...] healing left patella fracture. Bilateral knee prostheses. Laborer Cutting Tool[facility] Transcribe Date/Time: Oct 21 2021 1:43P Dictated by : PHYLLIS MEYERS MD This examination was interpreted and the report reviewed and electronically signed by: PHYLLIS MEYERS MD on Oct 21 2021 1:52PM EST [email or web address] SE_DIVISION OF RADIOLOGY Provider, [facility] [place] - 10/21/2021 * * *Final Report* * [...] healing left patella fracture. Bilateral knee prostheses. Laborer Cutting Tool: [facility] Transcribe Date/Time: Oct 21 2021 1:43P Dictated by : PHYLLIS MEYERS MD This examination was interpreted and the report reviewed and electronically signed by: PHYLLIS MEYERS MD on Oct 21 2021 1:52PM EST [facility] Radiology Study observation (narrative) Janie Durham XR Knee - left 4 ViewsOrdere d By: [facility] Provider on 10-21-2021 [facility] No Panel Informationon 08-22 BLANK _ [facility] Implant Date 04/29/2019 [facility] Model 5076 CapSureFix Novus [facility] PACEMAKER REMOTE CHECKon AV Delay Adaptive Paced Minimum (ms) 180 ms [facility] AV Delay Adaptive Sensed Minimum (ms) 150 ms [facility] AV Delay Adaptive Status DISABLED [facility] Battery Voltage (volts) 3.[address] [facility] Evert RA Pacing Amplitude (volts) 1.5 V [facility] Evert RA Pacing Polarity BI [facility] Evert RA Pacing Pulse Width (ms) 0.4 ms [facility] Evert RA Sensing Amplitude (mvolts) 0.15 mV [facility] Evert RA Sensing Blanking Period (ms) 150 ms [facility] Evert RA Sensing Polarity BI [facility] Evert RA Sensing Refractory Period (ms) Auto [facility] Evert RV Pacing Amplitude (volts) 2 V [facility] Evert RV Pacing Polarity BI [facility] Evert RV Pacing Pulse Width (ms) 0.4 ms [facility] Evert RV Sensing Amplitude (mvolts) 0.9 mV [facility] Evert RV Sensing Blanking Period (ms) 200 ms [facility] Evert RV Sensing Polarity BI [facility] Hysteresis Rate (bpm) DISABLED [facility] Lead1 Mfg MDT [facility] Lead2 Mfg MDT [facility] Location RV [facility] Location RA [facility] Lower Rate (bpm) 60 {beats}/min [facility] Max Sensor Rate (bmp) 120 {beats}/min [facility] Model [id number] ESPINAL [facility] PM-Device Mfg SOFIA [facility] PM-Percent Pacing (A) 14.36 % [facility] PM-Percent Pacing (V) 99.95 % [facility] PM-PMT Intervention DISABLED [facility] PM-PVC Intervention ENABLED [facility] PM-Rate Modulation Acceleration Reaction 30 s [facility] PM-Rate Modulation ADL Rate (bpm) 85 {beats}/min [facility] PM-Rate Modulation Deceleration Exercise [facility] PM-Rate Modulation Mcduffie 3 [facility] PM-Rate Modulation Threshold MediumLow [facility] RA Bipolar Impedance ohms 418 ohm [facility] RA Unipolar Impedance ohms 304 ohm [facility] RV Bipolar Impedance ohms 437 ohm [facility] RV Unipolar Impedance 380 ohm [facility] Serial Number [id number] [facility] Serial Number [id number] [facility] Serial Number [id number] [facility] Thresh RA Capture Amplitude (volts) 1 V [facility] Thresh RA Capture Duration (ms) 0.4 ms [facility] Thresh RA Sensing Amplitude (mvolts) 1.875 mV [facility] Thresh RV Capture Amplitude (volts) 0.75 V [facility] Thresh RV Capture Duration (ms) 0.4 ms [facility] Thresh RV Sensing Amplitude (mvolts) 17.625 mV [facility] Tracking Rate (bpm) 130 {beats}/min [facility] No Panel Informationon 05-13 [facility] XR KNEE POST OP 3V AP/LAT/ME RCHANT LTon 03-12-2021 [facility] XR Knee - left AP and Latera alverto 01-15-2021 IMPRESSION: Post-operative changes. No significant change from prior. Laborer Cutting Tool: [employer] Transcribe Date/Time: Jan 15 2021 2:19P Dictated by : CRISPIN BARR MD This examination was interpreted and the report reviewed and electronically signed by: VALERIE CRUZ MD on Jan 15 2021 3:47PM [facility] DIVISION OF RADIOLOGY * [...] to internal left knee prosthesis, initial encounter ([facility]) COMPARISON: 12/11/2020 RESULT: Again seen are postsurgical changes of left knee arthrodesis with a transarticular intramedullary nail, and cement spacer. Alignment is unchanged. No progressive periprosthetic lucency or periprosthetic fracture. No new destructive osseous changes. DIVISION OF RADIOLOGY Provider, [facility] [place] - 01/15/2021 * * *Final Report* * [...] to internal left knee prosthesis, initial encounter ([facility]) COMPARISON: 12/11/2020 RESULT: Again seen are postsurgical changes of left knee arthrodesis with a transarticular intramedullary nail, and cement spacer. Alignment is unchanged. No progressive periprosthetic lucency or periprosthetic fracture. No new destructive osseous changes. IMPRESSION IMPRESSION: Post-operative changes. No significant change from prior. Lab[facility] Cutting [facility] Transcribe Date/Time: Jan 15 2021 2:19P Dictated by : CRISPIN BARR MD This examination was interpreted and the report reviewed and electronically signed by: VALERIE CRUZ MD on Jan 15 2021 3:47PM EST [facility] Radiology Study observation (narrative) [facility] XR Knee - left AP and Latera lOrdered By: Cc Provider on 01-15-2021 [facility] XR Knee - left AP and Latera alverto 12-11-2020 IMPRESSION: Expected postoperative appearance of the left knee as described. Laborer Cutting Tool: [facility] Transcribe Date/Time: Dec 11 2020 8:36A Dictated by : NAVI KITCHEN MD This examination was interpreted and the report reviewed and electronically signed by: NAVI KITCHEN MD on Dec 11 2020 8:37AM [facility] DIVISION OF RADIOLOGY * [...] to internal left knee prosthesis, initial encounter ([facility]) TECHNIQUE: XR KNEE 2V AP/LAT LT Laterality: LEFT Number of different views (projections): 2 M: XB_1 COMPARISON: 11/09/2020 RESULT: Postsurgical changes of left knee fusion with intramedullary bin and antibiotic spacer placement are again noted. No new or progressive periprosthetic lucency. No destructive osseous change. Interval resolution of postoperative soft tissue gas. No other significant abnormality. DIVISION OF RADIOLOGY Provider, [facility] [place] - 12/11/2020 * * *Final Report* * [...] to internal left knee prosthesis, initial encounter ([facility]) TECHNIQUE: XR KNEE 2V AP/LAT LT Laterality: [...] appearance of the left knee as described. Laborer Cutting Tool: [facility] Transcribe Date/Time: Dec 11 2020 8:36A Dictated by : NAVI KITCHEN MD This examination was interpreted and the report reviewed and electronically signed by: NAVI KITCHEN MD on Dec 11 2020 8:37AM EST [facility] Radiology Study observation (narrative) [facility] XR Knee - left AP and Latera lOrdered By: [facility] Provider on 12-11-2020 [facility] No Panel Informationon 10-30 IMPRESSION: DESCRIBED IN THE BODY OF THE REPORT WITH INCREASED VARUS TILTING OF THE TIBIAL COMPONENT IN THE LEFT KNEE AND 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 Laborer Cutting Tool: [employer] Transcribe Date/Time: Oct 30 2020 8:10A Dictated by : WALESKA SEALS MD This examination was interpreted and the report reviewed and electronically signed by: WALESKA SEALS MD on Oct 30 2020 8:46AM EST DIVISION OF RADIOLOGY Radiology Study observation (narrative) [facility] No Panel InformationOrdered By: Cc Provider on 10-30-2020 [facility] XR Knee - left 4 Viewson * [...] AP/PA BOTH+LAT/LILLIAN LT, XR LEG FRONTL HIP-ANKL [facility] AXIS Laterality: LEFT (accession [id number]), BILATERAL (accession [id number]) Number of different views (projections): 4 (accession [id number]), 1 (accession [id number]) COMPARISON: 03/31/2020 RESULT: Status post left total [...] significant abnormality. ----- DIVISION OF RADIOLOGY Provider, [facility] [place] - 10/30/2020 * * *Final Report* * * DATE OF EXAM: Oct 30 2020 8:05AM CRX [id number] - XR KNEE 4V AP/PA BOTH+LAT/LILLIAN LT / PROCEDURE REASON: Left knee pain, unspecified chronicity * * * * Physician Interpretation * * * * HISTORY: Left knee pain, unspecified chronicity . 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 Laborer Cutting Tool: [employer] Transcribe Date/Time: Oct 30 2020 8:10A Dictated by : WALESKA SEALS MD This examination was interpreted and the report reviewed and electronically signed by: WALESKA SEALS MD on Oct 30 2020 8:46AM EST [facility] XR Lower extremity - bilater al AP W standingon 10-30-2020 * * *Final Report* * * DATE OF EXAM: Oct 30 2020 8:05AM CRX [id number] - XR LEG FRONTL HIP-ANKL [facility] AXIS / PROCEDURE REASON: Left knee pain, unspecified chronicity * * * * Physician Interpretation * * * * HISTORY: Left knee pain, unspecified chronicity . left knee pain TECHNIQUE: XR KNEE 4V AP/PA BOTH+LAT/LILLIAN LT, XR LEG FRONTL HIP-ANKL [facility] AXIS Laterality: LEFT (accession [id number]), BILATERAL (accession [id number]) Number of different views (projections): 4 (accession [id number]), 1 (accession [id number]) COMPARISON: 03/31/2020 RESULT: Status post left total [...] significant abnormality. ----- DIVISION OF RADIOLOGY Provider, [facility] [place] - 10/30/2020 * * *Final Report* * * DATE OF EXAM: Oct 30 2020 8:05AM CRX [id number] - XR LEG FRONTL HIP-ANKL [facility] AXIS / PROCEDURE REASON: Left knee pain, unspecified chronicity * * * * Physician Interpretation * * * * HISTORY: Left knee pain, unspecified chronicity . 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 Laborer Cutting Tool: [employer] Transcribe Date/Time: Oct 30 2020 8:10A Dictated by : WALESKA SEALS MD This examination was interpreted and the report reviewed and electronically signed by: WALESKA SEALS MD on Oct 30 2020 8:46AM EST [facility] XR Knee - left 4 Viewson IMPRESSION: Satisfactory appearing TKA. Joint effusion. Laborer Cutting Tool: [employer] Transcribe Date/Time: Mar 31 2020 4:19P Dictated by : BHAKTI HERNÁNDEZ MD This examination was interpreted and the report reviewed and electronically signed by: BHAKTI HERNÁNDEZ MD on Mar 31 2020 4:20PM [facility] DIVISION OF RADIOLOGY * [...] TKA is noted. DIVISION OF RADIOLOGY Provider, [facility] [place] - 03/31/2020 * * *Final Report* * [...] IMPRESSION IMPRESSION: Satisfactory appearing TKA. Joint effusion. Laborer Cutting Tool: [employer] Transcribe Date/Time: Mar 31 2020 4:19P Dictated by : BHAKTI HERNÁNDEZ MD This examination was interpreted and the report reviewed and electronically signed by: BHAKTI HERNÁNDEZ MD on Mar 31 2020 4:20PM EST [facility] Radiology Study observation (narrative) [facility] K[facility] - left 4 ViewsOrdere d By: Ccf Provider on 03-31-2020 [facility] ANES POSTPROC EVALon 020 ANES POSTPROC EVAL HNO ID: [id number] Author: Clara Jimenez Service: ? Author Type: [...] SIGNATURE: Clara Jimenez MD PATIENT NAME: Maia iNeto DATE: July 25, 2019 TIME: 11:35 AM CSN: [id number] [facility] ANES PRE-OPon 07-25-2019 ANES PRE-OP HNO ID: [id number] Author: Clara Jimenez Service: ? Author Type: Anesthesiologist Type: Anesthesia Preprocedure Evaluation Filed: 07/25/2019 9:45 AM Note Text: ANESTHESIOLOGY DAY OF SURGERY NOTE : 1945 Procedure(s) (LRB): CYSTOURETHROSCOPY W/ URETEROSCOPY AND/OR PYELOSCOPY W/ LITHOTRIPSY (Left) Surgeon(s): Luis Connelly MD Estimated body mass index is 23.41 kg/m? as calculated from the following: Height as of 07/12/19: 157.5 cm (5' 2). Weight as of 07/12/19: 58.1 kg (128 lb). 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 0.2641 GRAMS [facility] Comment on above: Performed By: #### C SA ####[address] [phone] Calculus Type No Information Provided [facility] Comment on above: Performed By: #### C SA ####[address] [phone] Note This test was developed and its performance characteristics determined by [facility]'s Matteo Tatiana [facility] Pathology and Laboratory Medicine [place] [facility] Comment on above: Result Comment: It h as not been cleared or approved by the FDA. [facility] is regulated under CLIA as qualified to perform high complexity testing. This test is used for clinical purposes. It should not be regarded as investigational or for research. Performed By: #### C SA ####[address] [phone] HISTORY PHYSICALon 0 HISTORY PHYSICAL HNO ID: [id number] Author: Luis Connelly MD Service: Urology Author [...] Connelly MD July 25, 2019 9:33 AM [facility] NURSING PROGon 07-25-2019 NURSING PROG HNO ID: [id number] Author: Jen Gary RN Service: ? Author Type: Registered Nurse Type: Nursing Progress Note Filed: 07/25/2019 1:51 PM Note Text: Nursing Progress Note Topic of Note: Incidental Maialaura Choifall [id number]: Dr. Jimenez at bedside. NBP 213/95 HR 62 after ambulating to bathroom. Denies SOB/CP. Denies surgical pain or N/V. Tolerated eating and drinking well. Did not take routine BP meds today. Dr. Jimenez ok with going home and resuming routine BP meds. Pt and son said they would check BP at home too. This note was completed by: Jen Gary RN [facility] NURSING PROG HNO ID: [id number] Author: Jen Gary RN Service: ? Author Type: Registered Nurse Type: Nursing Progress Note Filed: 07/25/2019 12:13 PM Note Text: Nursing Progress Note Topic of Note: Incidental Maia Edmar Reading [id number]: notified NBP 200/91. Baseline high BPs. Denies pain. Lopressor ordered. This note was completed by: Jen Gary RN [facility] PT EDon 07-25-2019 PT ED HNO ID: [id number] Author: Jen Gary RN Service: ? Author [...] REFERRAL (RECOMMENDATION): None Electronically Signed By: Jen Gray RN In Department: [facility] PT ED HNO ID: [id number] Author: Ashely NoblesRn) KAYLIN Paz Service: Nursing [...] Signed By: Ashely Paz RN In Department: [facility] XR RETROGRADE PYELOGRAM LTon 07-25-2019 XR RETROGRADE PYELOGRAM LT * * *Final Report* * * DATE OF EXAM: Jul 25 2019 11:18AM [facility] 5425 - XR RETROGRADE PYELOGRAM [...] placed IMPRESSION: Fluoroscopic assistance for urologic procedure Laborer Cutting Tool: PSC[employer] Transcribe Date/Time: Jul 25 2019 12:13P Dictated by : MATTHEW TASI MD This examination was interpreted and the report reviewed and electronically signed by: MATTHEW TSAI MD on Jul 25 2019 12:14PM EST [id number] CN [facility] NURSING PROGon 07-16-2019 NURSING PROG HNO ID: [id number] Author: Ashely NoblesRn) KAYLIN Vazquez Service: Nursing Author Type: Registered [...] last 12 Months: Yes: Date: 05-08-19, Comment: [facility] BMI Percentile (PEDS): N/A Risk Assessment: N/A Anesthesia Review: N/A Narrative: Labs acceptable Pre-op Considerations: CKD Chart Check: COMPLETED 07-01-2019 [employer] pacemaker check in [facility]. Provider has informed anesthesia. 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 Patient will be informed of surgery time the day before surgery between 1pm-4pm. PAT is scheduled for 07/12. order placed. Patient has been cleared by cardiology. Records are in [facility]. Progress Notes ([facility] MAIN): Papito Antunez MD 07/01/2019 1:42 PM Signed Heart [facility] V[facility] [place] García Pack Department of Cardiovascular Medicine SECTION [...] 2018 lap transgatric endoscopy with clipping at [facility] SURGICAL HISTORY OF bovine [...] 72 Resp 12 Ht 157.5 cm (5' 2) Wt 57.2 kg (126 lb) SpO2 99% [...] Right ventricular systolic function is normal. - Sanchez Mitral Valve Annuloplasty Ring (size [...] echo, earlier if need.melanie Antunez MD, [facility] [employer] Guidedrapery and upholstery measurer, [facility] Staff, Section of Cardiovascular Imaging Department of Cardiovascular Medicine [facility] [place] [facility] NURSING PROGon 03-29-2019 NURSING PROG HNO ID: [id number] Author: Kerrie (Rn) KAYLIN Riddle Service: ? Author Type: Registered Nurse Type: Nursing Progress Note Filed: 03/29/2019 8:58 AM Note Text: Late entry 0830- Dr. Beckman at [facility] speaking with patient and daughter about risks [...] given clothes to get dresses. Procedure canceled. [facility] PLAN OF CAREon 03-29-2019 PLAN OF CARE HNO ID: [id number] Author: Anatoly Beckman Service: Anesthesiology Author Type: Anesthesiologist Type: Plan of Care Filed: 03/29/2019 9:00 AM Note Text: Patient was seen today in preoperative for possible laser lithotripsy. Noted to have increased aortic valve gradients on prior echoes. She has followed up with Papito Antunez, cardiology, following previous admissions in the [facility]. Noted in prior cardiology notes [...] Beckman, DO 8:59 AM March 29, 2019 [facility] PT EDon 03-29-2019 PT ED HNO ID: [id number] Author: Kerrie NoblesRn) KAYLIN Riddle Service: ? [...] None Electronically Signed By: Kerrie Riddle RN 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 Patient will be informed of surgery time the day before surgery between 1pm-4pm. Patient was in ER on 03/01 and seen PCP 03/04. Records scanned into [employer].. UC negative 03/20 Progress Notes ([facility]): Carmelo Kidney PSS 03/20/2019 4:41 PM [...] Thank you Luis Connelly MD Advised daughter Critsina that we would call back to discuss. Will continue to try throughout the day. Birgit Massey RN 03/21/2019 7:44 PM Signed Called and spoke to daughter Cristina. Read her Dr. Connelly's message. They are wishing to proceed with the surgery. Will route to the financial compliance officer Phyllis. Pt. is doing alright, however, the [...] else he can prescribe. PLAN: Send to [facility] for surgery scheduling. Not sure if complete preadmission will be needed as pt. was inpatient at [facility] ago. Advised Cristina that [facility] would reach out. Will route to Dr. Connelly for any recommendation on pain. Luis Connelly MD, MD 03/22/2019 7:41 AM Signed Addended by: LUIS CONNELLY MD on: 03/22/2019 07:41 AM Modules accepted: Orders Apple Nova RN 03/22/2019 11:22 AM Signed Luis Connelly MD [facility] Nurse; [facility] Surg Scheduling 3 hours ago (7:41 AM) [facility] can you please schedule the patient for surgery MAGAL[facility] Nurses can we call the ultram to her pharmacy. Thank you MD Apple Ambriz RN 03/22/2019 11:27 AM Signed The following prescriptions have been called to [facility] pharmacy 03/22/2019 at 11:23 AM by Apple Nova RN. I spoke with Yogesh in the pharmacy. Signed Prescriptions Disp Refills traMADol (ULTRAM) 50 mg tablet 16 tablet 0 Sig: Take 1 tablet by mouth every 6 hours as needed for Pain (severe pain) for up to 4 days. DANIAT Class: C-IV Authorizing Provider: LUIS CONNELLY RN 03/22/2019 11:36 AM Signed Called daughter Cristina to inform that script called for ultram. Also informed her that her mother was just contacted and told of her 03/29 surgery at [facility]. Reviewed a bit of information with Cristina. Normal [facility] .Auto Diffon 12-05-2018 Ammonia (P) [Mass/Vol] 0.50 10 3/mcL Normal 0.09-1.40 [facility] ([place]) Comment on above: Performed By: #### L AC, CBC, ADIFF, ANEU, PRO, BMP, MG, GFR, TROPI, HFP #### [address] [address] Basophils (Bld) [#/Vol] 0.10 10 3/mcL Normal 0.00-0.27 [facility] ([place]) Comment on above: Performed By: #### L AC, CBC, ADIFF, ANEU, PRO, BMP, MG, GFR, TROPI, HFP #### [address] [address] Basophils/100 WBC (Bld) 0.6 % Normal 0.0-2.5 [facility] ([place]) Comment on above: Performed By: #### L AC, CBC, ADIFF, ANEU, PRO, BMP, MG, GFR, TROPI, HFP #### [address] [address] Eosinophils (Bld) [#/Vol] 0.10 10 3/mcL Normal 0.00-0.65 [facility] ([place]) Comment on above: Performed By: #### L AC, CBC, ADIFF, ANEU, PRO, BMP, MG, GFR, TROPI, HFP #### [address] [address] Eosinophils/100 WBC (Bld) 1.4 % Normal 0.0-6.0 [facility] ([place]) Comment on above: Performed By: #### L AC, CBC, ADIFF, ANEU, PRO, BMP, MG, GFR, TROPI, HFP #### [address] [address] Lymphocytes (Bld) [#/Vol] 0.70 10 3/mcL Low 0.90-4.32 [facility] ([place]) Comment on above: Performed By: #### L AC, CBC, ADIFF, ANEU, PRO, BMP, MG, GFR, TROPI, HFP #### [address] [address] Lymphocytes/100 WBC (Bld) 7.6 % Low 20.0-40.0 [facility] ([place]) Comment on above: Performed By: #### L AC, CBC, ADIFF, ANEU, PRO, BMP, MG, GFR, TROPI, HFP #### [address] [address] Monocytes/100 WBC (Bld) 5.6 % Normal 2.0-13.0 [facility] ([place]) Comment on above: Performed By: #### L AC, CBC, ADIFF, ANEU, PRO, BMP, MG, GFR, TROPI, HFP #### [address] [address] Neutrophils/100 WBC (Bld) 84.8 % High 50.0-75.0 [facility] ([place] Comment on above: Performed By: #### L AC, CBC, ADIFF, ANEU, PRO, BMP, MG, GFR, TROPI, HFP #### [address] [address] .GFRon 12-05-2018 GFR Non- >60 Normal [facility] ([place]) Comment on above: Result Comment: GFR Population [...] PRO, BMP, MG, GFR, TROPI, HFP #### [address] [address] GFR >60 Normal [facility] ([place]) Comment on above: Result Comment: GFR Population [...] PRO, BMP, MG, GFR, TROPI, HFP #### [address] [address] .NEUABSon 12-05-2018 Neutrophils (Bld) [#/Vol] 7.50 10 3/mcL Normal 2.25-8.10 [facility] ([place]) Comment on above: Performed By: #### L AC, CBC, ADIFF, ANEU, PRO, BMP, MG, GFR, TROPI, HFP #### [place] [id number] BMPon 12-05-2018 Creatinine [Mass/Vol] 0.78 mg/dL Normal 0.50-1.20 [facility] ([place]) Comment on above: Performed By: #### L AC, CBC, ADIFF, ANEU, PRO, BMP, MG, GFR, TROPI, HFP #### [place] [id number] Urea nitrogen/Creatinine [Mass ratio] 30.8 ratio High 10.0-22.0 [facility] ([place] Comment on above: Performed By: #### L AC, CBC, ADIFF, ANEU, PRO, BMP, MG, GFR, TROPI, HFP #### [address] [address] Calcium [Mass/Vol] 7.3 mg/dL Low 8.4-10.1 [facility] ([place]) Comment on above: Performed By: #### L AC, CBC, ADIFF, ANEU, PRO, BMP, MG, GFR, TROPI, HFP #### [address] [address] Chloride [Moles/Vol] 112 mmol/L High 98-110 [facility] ([place] Comment on above: Performed By: #### L AC, CBC, ADIFF, ANEU, PRO, BMP, MG, GFR, TROPI, HFP #### [address] [address] CO2 [Moles/Vol] 20 mmol/L Low 22-32 [facility] ([place]) Comment on above: Performed By: #### L AC, CBC, ADIFF, ANEU, PRO, BMP, MG, GFR, TROPI, HFP #### [address] [address] Electrolyte Balance 8.0 mEq/L Normal 4.0-15.0 [facility] ([place]) Comment on above: Performed By: #### L AC, CBC, ADIFF, ANEU, PRO, BMP, MG, GFR, TROPI, HFP #### [address] [address] Glucose [Mass/Vol] 82 mg/dL Normal 82-115 [facility] ([place]) Comment on above: Performed By: #### L AC, CBC, ADIFF, ANEU, PRO, BMP, MG, GFR, TROPI, HFP #### [address] [address] Potassium [Moles/Vol] 3.1 mmol/L Low 3.5-5.0 [facility] ([place] Comment on above: Performed By: #### L AC, CBC, ADIFF, ANEU, PRO, BMP, MG, GFR, TROPI, HFP #### [address] [address] Sodium [Moles/Vol] 140 mmol/L Normal 136-145 [facility] ([place]) Comment on above: Performed By: #### L AC, CBC, ADIFF, ANEU, PRO, BMP, MG, GFR, TROPI, HFP #### [address] [address] Urea nitrogen [Mass/Vol] 24.0 mg/dL High 8.0-22.0 [facility] ([place] Comment on above: Performed By: #### L AC, CBC, ADIFF, ANEU, PRO, BMP, MG, GFR, TROPI, HFP #### [address] [address] CBCon 12-05-2018 Erythrocyte distribution width (RBC) [Ratio] 16.3 % High 11.5-15.5 [facility] ([place] Comment on above: Performed By: #### L AC, CBC, ADIFF, ANEU, PRO, BMP, MG, GFR, TROPI, HFP #### [place] [address] Hematocrit (Bld) [Volume fraction] 22.9 % Low 34.0-46.0 [facility] ([place] Comment on above: Performed By: #### L AC, CBC, ADIFF, ANEU, PRO, BMP, MG, GFR, TROPI, HFP #### [place] [address] Hemoglobin (Bld) [Mass/Vol] 7.9 G/dL Low 12.0-16.0 [facility] ([place] Comment on above: Performed By: #### L AC, CBC, ADIFF, ANEU, PRO, BMP, MG, GFR, TROPI, HFP #### [place] [address] MCH (RBC) [Entitic mass] 31.0 pg Normal 27.0-33.0 [facility] ([place] Comment on above: Performed By: #### L AC, CBC, ADIFF, ANEU, PRO, BMP, MG, GFR, TROPI, HFP #### [place] [id number] MCHC (RBC) [Mass/Vol] 34.4 G/dL Normal 32.0-36.0 [facility] ([place] Comment on above: Performed By: #### L AC, CBC, ADIFF, ANEU, PRO, BMP, MG, GFR, TROPI, HFP #### [place] [id number] MCV (RBC) [Entitic vol] 90.3 fL Normal 80.0-99.0 [facility] [place] Comment on above: Performed By: #### L AC, CBC, ADIFF, ANEU, PRO, BMP, MG, GFR, TROPI, HFP #### [address] [address] Platelet mean volume (Bld) [Entitic vol] 8.3 fL Normal 6.6-10.5 [facility] ([place] Comment on above: Performed By: #### L AC, CBC, ADIFF, ANEU, PRO, BMP, MG, GFR, TROPI, HFP #### [place] [id number] Platelets (Bld) [#/Vol] 94 10 3/mcL Low 150-450 [facility] ([place] Comment on above: Performed By: #### L AC, CBC, ADIFF, ANEU, PRO, BMP, MG, GFR, TROPI, HFP #### [place] [id number] RBC (Bld) [#/Vol] 2.54 10 6/mcL Low 4.10-5.30 [facility] ([place] Comment on above: Performed By: #### L AC, CBC, ADIFF, ANEU, PRO, BMP, MG, GFR, TROPI, HFP #### [place] [id number] WBC (Bld) [#/Vol] 8.80 10 3/mcL Normal 4.50-10.80 [facility] ([place] Comment on above: Performed By: #### L AC, CBC, ADIFF, ANEU, PRO, BMP, MG, GFR, TROPI, HFP #### [place] [id number] HHon 12-05-2018 Hematocrit (Bld) [Volume fraction] 25.1 % Low 34.0-46.0 [facility] ([place] Comment on above: Performed By: #### L AC, CBC, ADIFF, ANEU, PRO, BMP, MG, GFR, TROPI, HFP #### [place] [id number] Hemoglobin (Bld) [Mass/Vol] 8.6 G/dL Low 12.0-16.0 [facility] ([place] Comment on above: Performed By: #### L AC, CBC, ADIFF, ANEU, PRO, BMP, MG, GFR, TROPI, HFP #### [place] [address] Hematocrit (Bld) [Volume fraction] 25.6 % Low 34.0-46.0 [facility] ([place] Comment on above: Performed By: #### L AC, CBC, ADIFF, ANEU, PRO, BMP, MG, GFR, TROPI, HFP #### [place] [address] Hemoglobin (Bld) [Mass/Vol] 8.8 G/dL Low 12.0-16.0 [facility] ([place] Comment on above: Performed By: #### L AC, CBC, ADIFF, ANEU, PRO, BMP, MG, GFR, TROPI, HFP #### [place] [address] MGon 12-05-2018 Magnesium [Mass/Vol] 1.6 mg/dL Normal 1.6-2.4 [facility] ([place] Comment on above: Performed By: #### L AC, CBC, ADIFF, ANEU, PRO, BMP, MG, GFR, TROPI, HFP #### [place] [address] .Auto Diffon 12-04-2018 Ammonia (P) [Mass/Vol] 0.60 10 3/mcL Normal 0.09-1.40 [facility] ([place] Comment on above: Performed By: #### L AC, CBC, ADIFF, ANEU, PRO, BMP, MG, GFR, TROPI, HFP #### [place] [address] Basophils (Bld) [#/Vol] 0.10 10 3/mcL Normal 0.00-0.27 [facility] ([place] Comment on above: Performed By: #### L AC, CBC, ADIFF, ANEU, PRO, BMP, MG, GFR, TROPI, HFP #### [place] [address] Basophils/100 WBC (Bld) 0.9 % Normal 0.0-2.5 [facility] ([place] Comment on above: Performed By: #### L AC, CBC, ADIFF, ANEU, PRO, BMP, MG, GFR, TROPI, HFP #### [address] [address] Eosinophils (Bld) [#/Vol] 0.10 10 3/mcL Normal 0.00-0.65 [facility] ([place]) Comment on above: Performed By: #### L AC, CBC, ADIFF, ANEU, PRO, BMP, MG, GFR, TROPI, HFP #### [address] [address] Eosinophils/100 WBC (Bld) 1.1 % Normal 0.0-6.0 [facility] ([place]) Comment on above: Performed By: #### L AC, CBC, ADIFF, ANEU, PRO, BMP, MG, GFR, TROPI, HFP #### [address] [address] Lymphocytes (Bld) [#/Vol] 0.80 10 3/mcL Low 0.90-4.32 [facility] ([place]) Comment on above: Performed By: #### L AC, CBC, ADIFF, ANEU, PRO, BMP, MG, GFR, TROPI, HFP #### [address] [address] Lymphocytes/100 WBC (Bld) 9.3 % Low 20.0-40.0 [facility] ([place]) Comment on above: Performed By: #### L AC, CBC, ADIFF, ANEU, PRO, BMP, MG, GFR, TROPI, HFP #### [address] [address] Monocytes/100 WBC (Bld) 6.9 % Normal 2.0-13.0 [facility] ([place]) Comment on above: Performed By: #### L AC, CBC, ADIFF, ANEU, PRO, BMP, MG, GFR, TROPI, HFP #### [address] [address] Neutrophils/100 WBC (Bld) 81.8 % High 50.0-75.0 [facility] ([place]) Comment on above: Performed By: #### L AC, CBC, ADIFF, ANEU, PRO, BMP, MG, GFR, TROPI, HFP #### [address] [address] .GFRon 12-04-2018 GFR Non- >60 Normal [facility] ([place]) Comment on above: Result Comment: GFR Population [...] PRO, BMP, MG, GFR, TROPI, HFP #### [place] [id number] GFR >60 Normal [facility] ([place] Comment on above: Result Comment: GFR Population [...] PRO, BMP, MG, GFR, TROPI, HFP #### [address] [address] .NEUABSon 12-04-2018 Neutrophils (Bld) [#/Vol] 6.70 10 3/mcL Normal 2.25-8.10 [facility] ([place]) Comment on above: Performed By: #### L AC, CBC, ADIFF, ANEU, PRO, BMP, MG, GFR, TROPI, HFP #### [address] [address] B12on 12-04-2018 Cobalamin (Vitamin B12) [Mass/Vol] 954 pg/mL High 211-911 [facility] ([place]) Comment on above: Performed By: #### L AC, CBC, ADIFF, ANEU, PRO, BMP, MG, GFR, TROPI, HFP #### [address] [address] BMPon 12-04-2018 Creatinine [Mass/Vol] 0.86 mg/dL Normal 0.50-1.20 [facility] ([place] Comment on above: Performed By: #### L AC, CBC, ADIFF, ANEU, PRO, BMP, MG, GFR, TROPI, HFP #### [place] [id number] Urea nitrogen/Creatinine [Mass ratio] 47.7 ratio High 10.0-22.0 [facility] ([place] Comment on above: Performed By: #### L AC, CBC, ADIFF, ANEU, PRO, BMP, MG, GFR, TROPI, HFP #### [address] [address] Calcium [Mass/Vol] 7.0 mg/dL Low 8.4-10.1 [facility] ([place] Comment on above: Performed By: #### L AC, CBC, ADIFF, ANEU, PRO, BMP, MG, GFR, TROPI, HFP #### [address] [address] Chloride [Moles/Vol] 111 mmol/L High 98-110 [facility] ([place] Comment on above: Performed By: #### L AC, CBC, ADIFF, ANEU, PRO, BMP, MG, GFR, TROPI, HFP #### [address] [address] CO2 [Moles/Vol] 18 mmol/L Low 22-32 [facility] ([place] Comment on above: Performed By: #### L AC, CBC, ADIFF, ANEU, PRO, BMP, MG, GFR, TROPI, HFP #### [address] [address] Electrolyte Balance 9.0 mEq/L Normal 4.0-15.0 [facility] ([place] Comment on above: Performed By: #### L AC, CBC, ADIFF, ANEU, PRO, BMP, MG, GFR, TROPI, HFP #### [address] [address] Glucose [Mass/Vol] 82 mg/dL Normal 82-115 [facility] ([place]) Comment on above: Performed By: #### L AC, CBC, ADIFF, ANEU, PRO, BMP, MG, GFR, TROPI, HFP #### [place] [address] Potassium [Moles/Vol] 3.6 mmol/L Normal 3.5-5.0 [facility] ([place] Comment on above: Performed By: #### L AC, CBC, ADIFF, ANEU, PRO, BMP, MG, GFR, TROPI, HFP #### [place] [id number] Sodium [Moles/Vol] 138 mmol/L Normal 136-145 [facility] ([place] Comment on above: Performed By: #### L AC, CBC, ADIFF, ANEU, PRO, BMP, MG, GFR, TROPI, HFP #### [place] [id number] Urea nitrogen [Mass/Vol] 41.0 mg/dL High 8.0-22.0 [facility] ([place]) Comment on above: Performed By: #### L AC, CBC, ADIFF, ANEU, PRO, BMP, MG, GFR, TROPI, HFP #### [address] [address] CBCon 12-04-2018 Erythrocyte distribution width (RBC) [Ratio] 15.3 % Normal 11.5-15.5 [facility] ([place] Comment on above: Performed By: #### L AC, CBC, ADIFF, ANEU, PRO, BMP, MG, GFR, TROPI, HFP #### [place] [id number] Hematocrit (Bld) [Volume fraction] 23.9 % Low 34.0-46.0 [facility] ([place] Comment on above: Performed By: #### L AC, CBC, ADIFF, ANEU, PRO, BMP, MG, GFR, TROPI, HFP #### [place] [id number] Hemoglobin (Bld) [Mass/Vol] 8.4 G/dL Low 12.0-16.0 [facility] ([place] Comment on above: Performed By: #### L AC, CBC, ADIFF, ANEU, PRO, BMP, MG, GFR, TROPI, HFP #### [place] [id number] MCH (RBC) [Entitic mass] 31.3 pg Normal 27.0-33.0 [facility] ([place] Comment on above: Performed By: #### L AC, CBC, ADIFF, ANEU, PRO, BMP, MG, GFR, TROPI, HFP #### [place] [id number] MCHC (RBC) [Mass/Vol] 35.2 G/dL Normal 32.0-36.0 [facility] ([place] Comment on above: Performed By: #### L AC, CBC, ADIFF, ANEU, PRO, BMP, MG, GFR, TROPI, HFP #### [place] [id number] MCV (RBC) [Entitic vol] 88.9 fL Normal 80.0-99.0 [facility] [place] Comment on above: Performed By: #### L AC, CBC, ADIFF, ANEU, PRO, BMP, MG, GFR, TROPI, HFP #### [place] [id number] Platelet mean volume (Bld) [Entitic vol] 8.1 fL Normal 6.6-10.5 [facility] ([place] Comment on above: Performed By: #### L AC, CBC, ADIFF, ANEU, PRO, BMP, MG, GFR, TROPI, HFP #### [address] [address] Platelets (Bld) [#/Vol] 84 10 3/mcL Low 150-450 [facility] ([place]) Comment on above: Performed By: #### L AC, CBC, ADIFF, ANEU, PRO, BMP, MG, GFR, TROPI, HFP #### [place] [id number] [address] [place] [address] RBC (Bld) [#/Vol] 2.69 10 6/mcL Low 4.10-5.30 [facility] ([place] Comment on above: Performed By: #### L AC, CBC, ADIFF, ANEU, PRO, BMP, MG, GFR, TROPI, HFP #### [address] [address] WBC (Bld) [#/Vol] 8.20 10 3/mcL Normal 4.50-10.80 [facility] ([place] Comment on above: Performed By: #### L AC, CBC, ADIFF, ANEU, PRO, BMP, MG, GFR, TROPI, HFP #### [address] [address] [address] ANGIOGRAPHY ABD AORTA + I LIOFEMORALon [...] PM Sign Date: 12/03/2018 11:30:57 PM Normal [facility] ([place]) [place] 12-04-2018 Ferritin [Mass/Vol] 361 ng/mL High 8-252 [facility] ([place]) Comment on above: Performed By: #### L AC, CBC, ADIFF, ANEU, PRO, BMP, MG, GFR, TROPI, HFP #### [place] [address] FESon 12-04-2018 Iron [Mass/Vol] 114 ug/dL Normal 37-170 [facility] ([place] Comment on above: Performed By: #### L AC, CBC, ADIFF, ANEU, PRO, BMP, MG, GFR, TROPI, HFP #### [place] [address] Iron Sat 95 % Normal [facility] ([place]) Comment on above: Performed By: #### L AC, CBC, ADIFF, ANEU, PRO, BMP, MG, GFR, TROPI, HFP #### [place] [address] TIBC 120 mcg/dL Low 250-500 [facility] ([place] Comment on above: Performed By: #### L AC, CBC, ADIFF, ANEU, PRO, BMP, MG, GFR, TROPI, HFP #### [place] [address] FOLon 12-04-2018 Folate 42.6 ng/mL High 1.1-20.0 [facility] ([place] Comment on above: Performed By: #### L AC, CBC, ADIFF, ANEU, PRO, BMP, MG, GFR, TROPI, HFP #### [place] [address] HAPTOon 12-04-2018 Haptoglobin 93 mg/dL Normal 36-195 [facility] ([place]) Comment on above: Performed By: #### L AC, CBC, ADIFF, ANEU, PRO, BMP, MG, GFR, TROPI, HFP #### [place] [address] HHon 12-04-2018 Hematocrit (Bld) [Volume fraction] 24.4 % Low 34.0-46.0 [facility] ([place] Comment on above: Performed By: #### L AC, CBC, ADIFF, ANEU, PRO, BMP, MG, GFR, TROPI, HFP #### [place] [address] Hemoglobin (Bld) [Mass/Vol] 8.5 G/dL Low 12.0-16.0 [facility] ([place] Comment on above: Performed By: #### L AC, CBC, ADIFF, ANEU, PRO, BMP, MG, GFR, TROPI, HFP #### [place] [address] Hematocrit (Bld) [Volume fraction] 26.4 % Low 34.0-46.0 [facility] ([place] Comment on above: Performed By: #### L AC, CBC, ADIFF, ANEU, PRO, BMP, MG, GFR, TROPI, HFP #### [place] [address] Hemoglobin (Bld) [Mass/Vol] 9.3 G/dL Low 12.0-16.0 [facility] ([place] Comment on above: Performed By: #### L AC, CBC, ADIFF, ANEU, PRO, BMP, MG, GFR, TROPI, HFP #### [place] [address] Hematocrit (Bld) [Volume fraction] 17.8 % Low 34.0-46.0 [facility] ([place] Comment on above: Performed By: #### L AC, CBC, ADIFF, ANEU, PRO, BMP, MG, GFR, TROPI, HFP #### [place] [address] Hemoglobin (Bld) [Mass/Vol] 6.1 G/dL Critically abnormal 12.0-16.0 [facility] ([place] Comment on above: Performed By: #### L AC, CBC, ADIFF, ANEU, PRO, BMP, MG, GFR, TROPI, HFP #### [place] [address] LDHon 12-04-2018 LDH 203 U/L Normal 120-246 [facility] ([place] Comment on above: Performed By: #### L AC, CBC, ADIFF, ANEU, PRO, BMP, MG, GFR, TROPI, HFP #### [place] [id number] MABOon 12-04-2018 ABO/Rh Interp AB NEG [facility] ([place]) Comment on above: Performed By: #### L AC, CBC, ADIFF, ANEU, PRO, BMP, MG, GFR, TROPI, HFP #### [address] [address] MABSon 12-04-2018 Antibody Screen Manual Negative Normal [facility] ([place]) Comment on above: Performed By: #### L AC, CBC, ADIFF, ANEU, PRO, BMP, MG, GFR, TROPI, HFP #### [address] [address] MGon 12-04-2018 Magnesium [Mass/Vol] 1.9 mg/dL Normal 1.6-2.4 [facility] ([place] Comment on above: Performed By: #### L AC, CBC, ADIFF, ANEU, PRO, BMP, MG, GFR, TROPI, HFP #### [address] [address] RBC (Product)on 12-04-2018 RBC (Bld) [#/Vol] RBC Ready for Pickup Normal [facility] ([place]) Comment on above: Performed By: #### L AC, CBC, ADIFF, ANEU, PRO, BMP, MG, GFR, TROPI, HFP #### [place] [address] TROPIon 12-04-2018 Troponin I.cardiac [Mass/Vol] 0.127 ng/mL High 0.000-0.040 [facility] ([place]) Comment on above: Result Comment: Trop onin I reference ranges (02/10/14): 0.00-0.040 ng/mL Negative and non-diagnostic. >0.040 ng/mL Consistent with cardiac damage, increased clinical risk and possibility of myocardial infarction. Serial measurements, a rise & fall in test results, clinical history, appropriate symptoms and/or ECG changes may help assess possibility of MO. *Other non-acute coronary syndrome conditions such as CHF, myocarditis, pulmonary emboli, sepsis and cardiac surgery could result in myocardial damage and increased troponin levels. Performed By: #### L AC, CBC, ADIFF, ANEU, PRO, BMP, MG, GFR, TROPI, HFP #### [address] [address] Troponin I.cardiac [Mass/Vol] 0.135 ng/mL High 0.000-0.040 [facility] ([place]) Comment on above: Result Comment: Trop onin I reference ranges (02/10/14): 0.00-0.040 ng/mL Negative and non-diagnostic. >0.040 ng/mL Consistent with cardiac damage, increased clinical risk and possibility of myocardial infarction. Serial measurements, a rise & fall in test results, clinical history, appropriate symptoms and/or ECG changes may help assess possibility of MO. *Other non-acute coronary syndrome conditions such as CHF, myocarditis, pulmonary emboli, sepsis and cardiac surgery could result in myocardial damage and increased troponin levels. Performed By: #### L AC, CBC, ADIFF, ANEU, PRO, BMP, MG, GFR, TROPI, HFP #### [place] [address] TSHon 12-04-2018 TSH Qn 2.130 mcIU/mL Normal 0.360-3.740 [facility] ([place]) Comment on above: Result Comment: Juan leonardo note as of 12/17/16 new pediatric reference intervals were added for this test. Performed By: #### L AC, CBC, ADIFF, ANEU, PRO, BMP, MG, GFR, TROPI, HFP #### [place] [address] VIDHon 12-04-2018 Vit. D 25-Hydroxy 54 ng/mL Normal [facility] ([place]) Comment on above: Result Comment: Inte rpretive Values Based on Total 25(OH)D: Severe Deficiency <20 ng/mL Mild to Moderate Deficiency 20-30 ng/mL Optimum Levels 30-100 ng/mL Toxicity Possible >100 ng/mL Performed By: #### L AC, CBC, ADIFF, ANEU, PRO, BMP, MG, GFR, TROPI, HFP #### [place] [address] .Auto Diffon 12-03-2018 Ammonia (P) [Mass/Vol] 0.50 10 3/mcL Normal 0.09-1.40 [facility] ([place]) Comment on above: Performed By: #### L AC, CBC, ADIFF, ANEU, PRO, BMP, MG, GFR, TROPI, HFP #### [place] [address] Basophils (Bld) [#/Vol] 0.00 10 3/mcL Normal 0.00-0.27 [facility] ([place]) Comment on above: Performed By: #### L AC, CBC, ADIFF, ANEU, PRO, BMP, MG, GFR, TROPI, HFP #### [address] [address] Basophils/100 WBC (Bld) 0.3 % Normal 0.0-2.5 [facility] ([place]) Comment on above: Performed By: #### L AC, CBC, ADIFF, ANEU, PRO, BMP, MG, GFR, TROPI, HFP #### [address] [address] Eosinophils (Bld) [#/Vol] 0.10 10 3/mcL Normal 0.00-0.65 [facility] ([place] Comment on above: Performed By: #### L AC, CBC, ADIFF, ANEU, PRO, BMP, MG, GFR, TROPI, HFP #### [address] [address] Eosinophils/100 WBC (Bld) 1.0 % Normal 0.0-6.0 [facility] ([place] Comment on above: Performed By: #### L AC, CBC, ADIFF, ANEU, PRO, BMP, MG, GFR, TROPI, HFP #### [address] [address] Lymphocytes (Bld) [#/Vol] 0.60 10 3/mcL Low 0.90-4.32 [facility] ([place] Comment on above: Performed By: #### L AC, CBC, ADIFF, ANEU, PRO, BMP, MG, GFR, TROPI, HFP #### [address] [address] Lymphocytes/100 WBC (Bld) 6.8 % Low 20.0-40.0 [facility] ([place]) Comment on above: Performed By: #### L AC, CBC, ADIFF, ANEU, PRO, BMP, MG, GFR, TROPI, HFP #### [address] [address] Monocytes/100 WBC (Bld) 5.5 % Normal 2.0-13.0 [facility] ([place]) Comment on above: Performed By: #### L AC, CBC, ADIFF, ANEU, PRO, BMP, MG, GFR, TROPI, HFP #### [address] [address] Neutrophils/100 WBC (Bld) 86.4 % High 50.0-75.0 [facility] ([place]) Comment on above: Performed By: #### L AC, CBC, ADIFF, ANEU, PRO, BMP, MG, GFR, TROPI, HFP #### [address] [address] .GFRon 12-03-2018 GFR >60 Normal [facility] ([place]) Comment on above: Result Comment: GFR Population [...] PRO, BMP, MG, GFR, TROPI, HFP #### [address] [address] GFR Non- >60 Normal [facility] ([place]) Comment on above: Result Comment: GFR Population [...] PRO, BMP, MG, GFR, TROPI, HFP #### [address] [address] .NEUABSon 12-03-2018 Neutrophils (Bld) [#/Vol] 8.10 10 3/mcL Normal 2.25-8.10 [facility] ([place]) Comment on above: Performed By: #### L AC, CBC, ADIFF, ANEU, PRO, BMP, MG, GFR, TROPI, HFP #### [place] [address] BMPon 12-03-2018 Calcium [Mass/Vol] 7.1 mg/dL Low 8.4-10.1 [facility] ([place]) Comment on above: Performed By: #### L AC, CBC, ADIFF, ANEU, PRO, BMP, MG, GFR, TROPI, HFP #### [place] [address] Chloride [Moles/Vol] 109 mmol/L Normal 98-110 [facility] ([place] Comment on above: Performed By: #### L AC, CBC, ADIFF, ANEU, PRO, BMP, MG, GFR, TROPI, HFP #### [place] [address] CO2 [Moles/Vol] 17 mmol/L Low 22-32 [facility] ([place]) Comment on above: Performed By: #### L AC, CBC, ADIFF, ANEU, PRO, BMP, MG, GFR, TROPI, HFP #### [place] [address] Creatinine [Mass/Vol] 0.86 mg/dL Normal 0.50-1.20 [facility] ([place]) Comment on above: Performed By: #### L AC, CBC, ADIFF, ANEU, PRO, BMP, MG, GFR, TROPI, HFP #### [place] [address] Electrolyte Balance 10.0 mEq/L Normal 4.0-15.0 [facility] ([place]) Comment on above: Performed By: #### L AC, CBC, ADIFF, ANEU, PRO, BMP, MG, GFR, TROPI, HFP #### [address] [address] Glucose [Mass/Vol] 107 mg/dL Normal 82-115 [facility] ([place]) Comment on above: Performed By: #### L AC, CBC, ADIFF, ANEU, PRO, BMP, MG, GFR, TROPI, HFP #### [address] [address] Potassium [Moles/Vol] 3.9 mmol/L Normal 3.5-5.0 [facility] ([place] Comment on above: Performed By: #### L AC, CBC, ADIFF, ANEU, PRO, BMP, MG, GFR, TROPI, HFP #### [address] [address] Sodium [Moles/Vol] 136 mmol/L Normal 136-145 [facility] ([place]) Comment on above: Performed By: #### L AC, CBC, ADIFF, ANEU, PRO, BMP, MG, GFR, TROPI, HFP #### [address] [address] Urea nitrogen [Mass/Vol] 37.0 mg/dL High 8.0-22.0 [facility] ([place]) Comment on above: Performed By: #### L AC, CBC, ADIFF, ANEU, PRO, BMP, MG, GFR, TROPI, HFP #### [address] [address] Urea nitrogen/Creatinine [Mass ratio] 43.0 ratio High 10.0-22.0 [facility] ([place]) Comment on above: Performed By: #### L AC, CBC, ADIFF, ANEU, PRO, BMP, MG, GFR, TROPI, HFP #### [address] [address] CBCon 12-03-2018 Erythrocyte distribution width (RBC) [Ratio] 16.6 % High 11.5-15.5 [facility] ([place]) Comment on above: Performed By: #### L AC, CBC, ADIFF, ANEU, PRO, BMP, MG, GFR, TROPI, HFP #### [place] [id number] Hematocrit (Bld) [Volume fraction] 22.1 % Low 34.0-46.0 [facility] ([place]) Comment on above: Performed By: #### L AC, CBC, ADIFF, ANEU, PRO, BMP, MG, GFR, TROPI, HFP #### [place] [address] Hemoglobin (Bld) [Mass/Vol] 7.4 G/dL Low 12.0-16.0 [facility] ([place]) Comment on above: Performed By: #### L AC, CBC, ADIFF, ANEU, PRO, BMP, MG, GFR, TROPI, HFP #### [place] [id number] MCH (RBC) [Entitic mass] 31.5 pg Normal 27.0-33.0 [facility] ([place]) Comment on above: Performed By: #### L AC, CBC, ADIFF, ANEU, PRO, BMP, MG, GFR, TROPI, HFP #### [place] [id number] MCHC (RBC) [Mass/Vol] 33.6 G/dL Normal 32.0-36.0 [facility] ([place] Comment on above: Performed By: #### L AC, CBC, ADIFF, ANEU, PRO, BMP, MG, GFR, TROPI, HFP #### [place] [address] MCV (RBC) [Entitic vol] 93.8 fL Normal 80.0-99.0 [facility] ([place] Comment on above: Performed By: #### L AC, CBC, ADIFF, ANEU, PRO, BMP, MG, GFR, TROPI, HFP #### [place] [id number] Platelet mean volume (Bld) [Entitic vol] 7.9 fL Normal 6.6-10.5 [facility] ([place]) Comment on above: Performed By: #### L AC, CBC, ADIFF, ANEU, PRO, BMP, MG, GFR, TROPI, HFP #### [place] [id number] Platelets (Bld) [#/Vol] 102 10 3/mcL Low 150-450 [facility] ([place]) Comment on above: Performed By: #### L AC, CBC, ADIFF, ANEU, PRO, BMP, MG, GFR, TROPI, HFP #### [place] [address] RBC (Bld) [#/Vol] 2.36 10 6/mcL Low 4.10-5.30 [facility] ([place] Comment on above: Performed By: #### L AC, CBC, ADIFF, ANEU, PRO, BMP, MG, GFR, TROPI, HFP #### [place] [address] WBC (Bld) [#/Vol] 9.40 10 3/mcL Normal 4.50-10.80 [facility] ([place]) Comment on above: Performed By: #### L AC, CBC, ADIFF, ANEU, PRO, BMP, MG, GFR, TROPI, HFP #### [place] [address] HFPon 12-03-2018 Bili Indirect 0.2 mg/dL Normal 0.1-10.0 [facility] ([place]) Comment on above: Performed By: #### L AC, CBC, ADIFF, ANEU, PRO, BMP, MG, GFR, TROPI, HFP #### [place] [address] Bili Direct 0.2 mg/dL Normal 0.0-0.4 [facility] ([place]) Comment on above: Performed By: #### L AC, CBC, ADIFF, ANEU, PRO, BMP, MG, GFR, TROPI, HFP #### [place] [address] Albumin/Globulin [Mass ratio] 0.7 {ratio} Low 0.9-1.6 [facility] ([place]) Comment on above: Performed By: #### L AC, CBC, ADIFF, ANEU, PRO, BMP, MG, GFR, TROPI, HFP #### [address] [address] ALP [Catalytic activity/Vol] 68 U/L Normal 38-126 [facility] ([place]) Comment on above: Performed By: #### L AC, CBC, ADIFF, ANEU, PRO, BMP, MG, GFR, TROPI, HFP #### [place] [id number] Bili Total 0.4 mg/dL Normal 0.2-1.2 [facility] ([place]) Comment on above: Performed By: #### L AC, CBC, ADIFF, ANEU, PRO, BMP, MG, GFR, TROPI, HFP #### [place] [id number] Globulin (S) [Mass/Vol] 2.4 G/dL Normal 1.5-3.8 [facility] ([place]) Comment on above: Performed By: #### L AC, CBC, ADIFF, ANEU, PRO, BMP, MG, GFR, TROPI, HFP #### [address] [address] Protein [Mass/Vol] 4.1 G/dL Low 6.0-8.5 [facility] ([place]) Comment on above: Performed By: #### L AC, CBC, ADIFF, ANEU, PRO, BMP, MG, GFR, TROPI, HFP #### [place] [id number] Albumin [Mass/Vol] 1.7 G/dL Low 3.2-4.8 [facility] ([place]) Comment on above: Performed By: #### L AC, CBC, ADIFF, ANEU, PRO, BMP, MG, GFR, TROPI, HFP #### [address] [address] ALT [Catalytic activity/Vol] 8 U/L Low 10-49 [facility] ([place]) Comment on above: Performed By: #### L AC, CBC, ADIFF, ANEU, PRO, BMP, MG, GFR, TROPI, HFP #### [place] [address] AST [Catalytic activity/Vol] 22 U/L Normal 8-34 [facility] ([place]) Comment on above: Performed By: #### L AC, CBC, ADIFF, ANEU, PRO, BMP, MG, GFR, TROPI, HFP #### [place] [address] LACon 12-03-2018 Lactic Acid Lvl 0.9 mmol/L Normal 0.2-2.0 [facility] ([place]) Comment on above: Performed By: #### L AC, CBC, ADIFF, ANEU, PRO, BMP, MG, GFR, TROPI, HFP #### [place] [address] MGon 12-03-2018 Magnesium [Mass/Vol] 2.0 mg/dL Normal 1.6-2.4 [facility] ([place]) Comment on above: Performed By: #### L AC, CBC, ADIFF, ANEU, PRO, BMP, MG, GFR, TROPI, HFP #### [place] [address] PROon 12-03-2018 INR Coag (PPP) [Relative time] 1.0 {INR} Normal [facility] ([place]) Comment on above: Result Comment: [employer] (CHEST, 1992, 102:[id number]) recommended therapeutic range for oral anticoagulant therapy is: LOW RISK: Prophylaxis of venous thrombosis INR: 2.0-3.0 Treatment of pulmonary embolism 2.0-3.0 Prevention of systemic embolism 2.0-3.0 HIGH RISK: Mechanical prosthetic valves 2.5-3.5 Performed By: #### L AC, CBC, ADIFF, ANEU, PRO, BMP, MG, GFR, TROPI, HFP #### [place] [address] PT Coag (PPP) [Time] 12.3 s Normal 9.0-14.6 [facility] ([place]) Comment on above: Result Comment: Effe ctive 12/18/07, Protime results may be affected by some antibiotics (i.e. Ciprofloxacin, Azithromycin, Bactrim) which may potentiate the action of oral anticoagulants, with further increases in Protime/INR. Performed By: #### L AC, CBC, ADIFF, ANEU, PRO, BMP, MG, GFR, TROPI, HFP #### [address] [address] TROPIon 12-03-2018 Troponin I.cardiac [Mass/Vol] 0.043 ng/mL High 0.000-0.040 [facility] ([place]) Comment on above: Result Comment: Trop onin I reference ranges (02/10/14): 0.00-0.040 ng/mL Negative and non-diagnostic. >0.040 ng/mL Consistent with cardiac damage, increased clinical risk and possibility of myocardial infarction. Serial measurements, a rise & fall in test results, clinical history, appropriate symptoms and/or ECG changes may help assess possibility of MO. *Other non-acute coronary syndrome conditions such as CHF, myocarditis, pulmonary emboli, sepsis and cardiac surgery could result in myocardial damage and increased troponin levels. Performed By: #### L AC, CBC, ADIFF, ANEU, PRO, BMP, MG, GFR, TROPI, HFP #### [address] [address] Office Visit: Sinus infectio non 04-23-2017 Documentation of current medications (procedure) Done Invalid Interpretation Code [facility] Work Phone: [phone] Fall risk assessment No Invalid Interpretation Code [facility] Work Phone: [phone] Tobacco smoking status NHIS Never Invalid Interpretation Code [facility] Work Phone: [phone] Tobacco use CPHS Never smoker Invalid Interpretation Code [facility] Work Phone: [phone] COVID-19 virus antigen assay SARS-CoV-2 (COVID-19) Ag IA.rapid Ql (Resp) [facility] Work Phone: [phone] Clostridium difficile detect ion by polymerase chain reaction C. difficile DNA MURALI+probe Ql (Unsp spec) [facility] Work Phone: [phone] Culture, urine Bacteria identified Cx Nom (U) Escherichia coli [facility] Work Phone: Vital Signs Date Time Vital Sign Value Performing Clinician Facility 12-02-2024 09:08-0400 Body mass index (BMI) [Ratio] 20.19 kg/m2 Raman Becerrai DO Work Phone: [facility] 12-02-2024 09:08-0400 Body temperature 97.2 [degF] Raman Mariami DO Work Phone: [facility] 12-02-2024 09:08-0400 Body weight 51.71 kg Raman Becerrai DO Work Phone: [facility] 12-02-2024 09:08-0400 Diastolic blood pressure 74 mm[Hg] Raman Mariami DO Work Phone: [facility] 12-02-2024 09:08-0400 Heart rate 79 /min Raman Becerrai DO Work Phone: [facility] 12-02-2024 09:08-0400 SaO2% (BldA) [Mass fraction] 98 % Raman [employer] DO Work Phone: [facility] 12-02-2024 09:08-0400 Systolic blood pressure 116 mm[Hg] Raman [employer] DO Work Phone: [facility] 06-12-2024 14:00-0500 Body temperature 97.9 [degF] Treatment [facility]str Work Phone: [facility] 06-12-2024 14:00-0500 Diastolic blood pressure 74 mm[Hg] Treatment [facility]str Work Phone: [facility] 06-12-2024 14:00-0500 Heart rate 82 /min Treatment [facility]str Work Phone: [facility] 06-12-2024 14:00-0500 Systolic blood pressure 110 mm[Hg] Treatment [facility]str Work Phone: [facility] 06-10-2024 15:25-0500 Body temperature 97 [degF] Treatment [facility]str Work Phone: [facility] 06-10-2024 15:25-0500 Diastolic blood pressure 75 mm[Hg] Treatment [facility]str Work Phone: [facility] 06-10-2024 15:25-0500 Heart rate 65 /min Treatment [facility]str Work Phone: [facility] 06-10-2024 15:25-0500 Respiratory rate 18 /min Treatment [facility]str Work Phone: [facility] 06-10-2024 15:25-0500 SaO2% (BldA) [Mass fraction] 99 % Treatment [facility]str Work Phone: [facility] 06-10-2024 15:25-0500 Systolic blood pressure 124 mm[Hg] Treatment [facility]str Work Phone: [facility] 06-06-2024 15:21-0500 Body temperature 97.81 [degF] Treatment [facility]str Work Phone: [facility] 06-06-2024 15:21-0500 Diastolic blood pressure 70 mm[Hg] Treatment Wstr Work Phone: [facility] 06-06-2024 15:21-0500 Heart rate 64 /min Treatment [facility]str Work Phone: [facility] 06-06-2024 15:21-0500 Respiratory rate 16 /min Treatment [facility]str Work Phone: [facility] 06-06-2024 15:21-0500 SaO2% (BldA) [Mass fraction] 100 % Treatment [facility]str Work Phone: [facility] 06-06-2024 15:21-0500 Systolic blood pressure 120 mm[Hg] Treatment Wstr Work Phone: [facility] 06-03-2024 09:22-0500 Body temperature 97.81 [degF] Treatment Wstr Work Phone: [facility] 06-03-2024 09:22-0500 Diastolic blood pressure 68 mm[Hg] Treatment Wstr Work Phone: [facility] 06-03-2024 09:22-0500 Heart rate 65 /min Treatment Wstr Work Phone: [facility] 06-03-2024 09:22-0500 SaO2% (BldA) [Mass fraction] 99 % Treatment [facility]str Work Phone: [facility] 06-03-2024 09:22-0500 Systolic blood pressure 159 mm[Hg] Treatment Wstr Work Phone: [facility] 05-31-2024 14:00-0500 Body temperature 97.9 [degF] Treatment Wstr Work Phone: [facility] 05-31-2024 14:00-0500 Diastolic blood pressure 73 mm[Hg] Treatment Wstr Work Phone: [facility] 05-31-2024 14:00-0500 Heart rate 72 /min Treatment Wstr Work Phone: [facility] 05-31-2024 14:00-0500 Systolic blood pressure 135 mm[Hg] Treatment Wstr Work Phone: [facility] 05-28-2024 10:41-0500 Diastolic blood pressure 73 mm[Hg] Treatment Wstr Work Phone: [facility] 05-28-2024 10:41-0500 Heart rate 74 /min Treatment Wstr Work Phone: [facility] 05-28-2024 10:41-0500 SaO2% (BldA) [Mass fraction] 98 % Treatment [facility]str Work Phone: [facility] 05-28-2024 10:41-0500 Systolic blood pressure 124 mm[Hg] Treatment Wstr Work Phone: [facility] 05-21-2024 09:18-0500 Body mass index (BMI) [Ratio] 20.9 kg/m2 Raman Mariami DO Work Phone: [facility] 05-21-2024 09:18-0500 Body temperature 97.5 [degF] Raman Masci DO Work Phone: [facility] 05-21-2024 09:18-0500 Body weight 53.52 kg Raman Masci DO Work Phone: [facility] 05-21-2024 09:18-0500 Diastolic blood pressure 73 mm[Hg] Raman Becerrai DO Work Phone: [facility] 05-21-2024 09:18-0500 Heart rate 73 /min Raman Becerrai DO Work Phone: [facility] 05-21-2024 09:18-0500 SaO2% (BldA) [Mass fraction] 99 % Raman Masci DO Work Phone: [facility] 05-21-2024 09:18-0500 Systolic blood pressure 113 mm[Hg] Raman Masci DO Work Phone: [facility] 12-04-2023 10:19-0400 Body height 160 cm Raman Masci DO Work Phone: [facility] 12-04-2023 10:19-0400 Body mass index (BMI) [Ratio] 22.32 kg/m2 Raman Masci DO Work Phone: [facility] 12-04-2023 10:19-0400 Body temperature 97.39 [degF] Raman Masci DO Work Phone: [facility] 12-04-2023 10:19-0400 Body weight 57.15 kg Raman Masci DO Work Phone: [facility] 12-04-2023 10:19-0400 Diastolic blood pressure 69 mm[Hg] Raman Masci DO Work Phone: [facility] 12-04-2023 10:19-0400 Heart rate 84 /min Raman Masci DO Work Phone: [facility] 12-04-2023 10:19-0400 SaO2% (BldA) [Mass fraction] 98 % Raman Masci DO Work Phone: [facility] 12-04-2023 10:19-0400 Systolic blood pressure 103 mm[Hg] Raman Masci DO Work Phone: [facility] 12-12-2022 08:54-0400 Body height 160 cm Penny Quinteros BOAT RENTAL CLERK.INDUSTRIAL WASTE TREATMENT TECHNICIAN Work Phone: [facility] 12-12-2022 08:54-0400 Body temperature 97.59 [degF] Penny Quinteros BOAT RENTAL CLERKBraydenINDUSTRIAL WASTE TREATMENT TECHNICIAN Work Phone: [facility] 12-12-2022 08:54-0400 Body weight 64.41 kg Penny Quinteros BOAT RENTAL CLERK.INDUSTRIAL WASTE TREATMENT TECHNICIAN Work Phone: [facility] 12-12-2022 08:54-0400 Diastolic blood pressure 60 mm[Hg] Penny Quinteros BOAT RENTAL CLERK.INDUSTRIAL WASTE TREATMENT TECHNICIAN Work Phone: [facility] 12-12-2022 08:54-0400 Heart rate 75 /min Penny Hyattenter BOAT RENTAL CLERK.INDUSTRIAL WASTE TREATMENT TECHNICIAN Work Phone: [facility] 12-12-2022 08:54-0400 SaO2% (BldA) [Mass fraction] 99 % Penny Hyattenter BOAT RENTAL CLERK.INDUSTRIAL WASTE TREATMENT TECHNICIAN Work Phone: [facility] 12-12-2022 08:54-0400 Systolic blood pressure 124 mm[Hg] Penny Quinteros BOAT RENTAL CLERK.INDUSTRIAL WASTE TREATMENT TECHNICIAN Work Phone: [facility] 11-23-2022 15:19-0400 Body height 165.1 cm Jeferson Bandsuh PA-C Work Phone: [facility] 11-23-2022 15:19-0400 Body weight 63.69 kg Jeferson Bandsuh PA-C Work Phone: [facility] 11-23-2022 15:19-0400 Diastolic blood pressure 74 mm[Hg] Jeferson Bandsuh PA-C Work Phone: [facility] 11-23-2022 15:19-0400 Heart rate 73 /min Jeferson Bandsuh PA-C Work Phone: [facility] 11-23-2022 15:19-0400 Systolic blood pressure 127 mm[Hg] Jeferson Bandsuh PA-C Work Phone: [facility] 09-12-2022 06:33-0400 Diastolic blood pressure 53 mm[Hg] Dr. Clau Baca Work Phone: [facility] 09-12-2022 06:33-0400 Heart rate 70 /min Dr. Clau Baca Work Phone: [facility] 09-12-2022 06:33-0400 Respiratory rate 16 /min Dr. Clau Baca Work Phone: [facility] 09-12-2022 06:33-0400 SaO2% (BldA) [Mass fraction] 99 % Dr. Clau Baca Work Phone: [facility] 09-12-2022 06:33-0400 Systolic blood pressure 137 mm[Hg] Dr. Clau Baca Work Phone: [facility] 09-12-2022 04:25-0400 Body height 157.[address] Clau Baca Work Phone: [facility] 09-12-2022 04:25-0400 Body mass index (BMI) [Ratio] 26.9 kg/m2 Dr. Clau Baca Work Phone: [facility] 09-12-2022 04:25-0400 Body temperature 97.1 [degF] Dr. Clau Baca Work Phone: [facility] 09-12-2022 04:25-0400 Body weight 66.[address] Clau Baca Work Phone: [facility] 09-06-2022 14:49-0400 Body temperature 98.6 [degF] Injection Wstr Work Phone: [facility] 09-06-2022 14:49-0400 Diastolic blood pressure 59 mm[Hg] Injection [facility]str Work Phone: [facility] 09-06-2022 14:49-0400 Heart rate 81 /min Injection [facility]str Work Phone: [facility] 09-06-2022 14:49-0400 Systolic blood pressure 114 mm[Hg] Injection [facility]str Work Phone: [facility] 08-23-2022 09:40-0400 Body temperature 98.1 [degF] Dr. Clau Baca Work Phone: [facility] 08-23-2022 09:40-0400 Diastolic blood pressure 67 mm[Hg] Dr. Clau Baca Work Phone: 9(160)828-721544 [place] [address] 08-23-2022 09:40-0400 Heart rate 88 /min Dr. Clau Baca Work Phone: 6(495)023-118150 [place] [address] 08-23-2022 09:40-0400 Respiratory rate 18 /min Dr. Clau Baca Work Phone: 4(876)963-150250 [place] [address] 08-23-2022 09:40-0400 SaO2% (BldA) [Mass fraction] 100 % Dr. Clau Baca Work Phone: 3(011)314-179750 [place] [address] 08-23-2022 09:40-0400 Systolic blood pressure 104 mm[Hg] Dr. Clau Baca Work Phone: 3(050)468-256650 [place] [address] 08-22-2022 12:41-0400 Body height 157.[address] Clau Baca Work Phone: 3(953)932-896050 [place] [address] 08-22-2022 12:41-0400 Body weight 56.[address] Clau Baca Work Phone: 2(577)298-774250 [place] [address] 08-19-2022 16:20-0400 Body mass index (BMI) [Ratio] 22.6 kg/m2 Dr. Clau Baca Work Phone: 1(080)816-389650 [place] [address] 08-19-2022 14:00-0400 Body temperature 99.2 [degF] Dr. Clau Baca Work Phone: 7(540)797-217350 [place] [address] 08-19-2022 14:00-0400 Diastolic blood pressure 64 mm[Hg] Dr. Clau Baca Work Phone: 7(941)443-176650 [place] [address] 08-19-2022 14:00-0400 Heart rate 85 /min Dr. Clau Baca Work Phone: 3(798)652-238350 [place] [address] 08-19-2022 14:00-0400 Respiratory rate 20 /min Dr. Clau Baca Work Phone: 6(554)294-133850 [place] [address] 08-19-2022 14:00-0400 SaO2% (BldA) [Mass fraction] 94 % Dr. Clau Baca Work Phone: 5(615)686-345850 [place] [address] 08-19-2022 14:00-0400 Systolic blood pressure 118 mm[Hg] Dr. Clau Baca Work Phone: 1(141)920-160750 [place] [address] 08-19-2022 09:29-0400 Body height 157.[address] Clau Baca Work Phone: 7(952)023-634650 [place] [address] 08-19-2022 09:29-0400 Body mass index (BMI) [Ratio] 26 kg/m2 Dr. Clau Baca Work Phone: 1(152)860-291850 [place] [address] 08-19-2022 09:29-0400 Body weight 64.[address] Clau Baca Work Phone: 9(485)594-159950 [place] [address] 08-12-2022 21:11-0500 Diastolic blood pressure 53 mm[Hg] Dr. Clau Baca Work Phone: 1(241)737-850050 [place] [address] 08-12-2022 21:11-0500 Heart rate 89 /min Dr. Clau Baca Work Phone: 6(883)450-169850 [place] [address] 08-12-2022 21:11-0500 Respiratory rate 18 /min Dr. Clau Baca Work Phone: 7(788)420-293150 [place] [address] 08-12-2022 21:11-0500 SaO2% (BldA) [Mass fraction] 100 % Dr. Clau Baca Work Phone: 5(602)554-035550 [place] [address] 08-12-2022 21:11-0500 Systolic blood pressure 126 mm[Hg] Dr. Clau Baca Work Phone: 3(032)026-182250 [place] [address] 08-12-2022 20:00-0500 Body temperature 98.2 [degF] Dr. Clau Baca Work Phone: 0(867)407-745350 [place] [address] 08-12-2022 18:05-0500 Body mass index (BMI) [Ratio] 22.5 kg/m2 Dr. Clau Baca Work Phone: 7(411)134-475550 [place] [address] 08-12-2022 18:05-0500 Body weight 55.[address] Clau Baca Work Phone: 9(598)814-926150 [place] [address] 08-12-2022 17:50-0500 Body height 157.[address] Clau Baca Work Phone: 5(545)783-801944 [place] [address] 07-12-2022 13:52-0500 Body temperature 98.2 [degF] [facility] Work Phone: 8(587)189-260983 [place] [address] 06-14-2022 11:47-0500 Body temperature 98.1 [degF] [facility] Work Phone: 8(583)255-662383 [place] [address] 06-14-2022 11:47-0500 Body weight 59.88 kg [facility] Work Phone: 3(701)285-418064 [place] [address] 06-14-2022 11:47-0500 Diastolic blood pressure 67 mm[Hg] [facility] Work Phone: 2(036)783-329983 [place] [address] 06-14-2022 11:47-0500 Heart rate 80 /min [facility] Work Phone: 1(603)025-686083 [place] [address] 06-14-2022 11:47-0500 Systolic blood pressure 122 mm[Hg] [facility] Work Phone: 5(490)037-921364 [place] [address] 06-02-2022 14:31-0500 Body temperature 97.4 [degF] Dr. Clau Baca Work Phone: 5(480)111-795350 [place] [address] 06-02-2022 14:31-0500 Diastolic blood pressure 77 mm[Hg] Dr. Clau Baca Work Phone: 5(989)880-544350 [place] [address] 06-02-2022 14:31-0500 Heart rate 77 /min Dr. Clau Baca Work Phone: 5(440)613-445650 [place] [address] 06-02-2022 14:31-0500 Respiratory rate 16 /min Dr. Clau Baca Work Phone: 2(954)235-881150 [place] [address] 06-02-2022 14:31-0500 SaO2% (BldA) [Mass fraction] 100 % Dr. Clau Baca Work Phone: 9(862)426-774650 [place] [address] 06-02-2022 14:31-0500 Systolic blood pressure 155 mm[Hg] Dr. Clau Baca Work Phone: [facility] 06-02-2022 05:40-0500 Body weight [address] Clau Baca Work Phone: [facility] 05-30-2022 18:01-0500 Body height 165.[address] Clau Baca Work Phone: [facility] Work Phone: 05-30-2022 18:01-0500 Body mass index (BMI) [Ratio] 20 kg/m2 Dr. Clau Baca Work Phone: [facility] 05-30-2022 14:41-0500 Body temperature 98.1 [degF] [facility] Work Phone: 05-30-2022 14:41-0500 Diastolic blood pressure 62 mm[Hg] [facility] Work Phone: 05-30-2022 14:41-0500 Heart rate 64 /min [facility] Work Phone: 05-30-2022 14:41-0500 Respiratory rate 18 /min [facility] Work Phone: 05-30-2022 14:41-0500 SaO2% (BldA) [Mass fraction] 92 % [facility] Work Phone: 05-30-2022 14:41-0500 Systolic blood pressure 109 mm[Hg] [facility] Work Phone: 05-30-2022 11:47-0500 Body height 165.1 cm [facility] Work Phone: 05-30-2022 11:47-0500 Body mass index (BMI) [Ratio] 20.9 kg/m2 [facility] Work Phone: 05-30-2022 11:47-0500 Body weight 57.1 kg [facility] Work Phone: 05-17-2022 14:07-0500 Body temperature 96.49 [degF] Injection Wstr Work Phone: [facility] 05-12-2022 13:29-0500 Diastolic blood pressure 75 mm[Hg] Mi Nurse Work Phone: [facility] 05-12-2022 13:29-0500 Heart rate 77 /min Mi Nurse Work Phone: [facility] 05-12-2022 13:29-0500 Systolic blood pressure 122 mm[Hg] Mi Nurse Work Phone: [facility] 03-22-2022 11:58-0400 Body temperature 97.81 [degF] Injection Wstr Work Phone: [facility] 03-01-2022 13:12-0400 Body height 165.1 cm Avtar Hearn DO Work Phone: [facility] 03-01-2022 13:12-0400 Body weight 59.92 kg Avtar Hearn DO Work Phone: [facility] 03-01-2022 13:12-0400 Diastolic blood pressure 68 mm[Hg] Avtar Hearn DO Work Phone: [facility] 03-01-2022 13:12-0400 Heart rate 67 /min Avtar Hearn DO Work Phone: [facility] 03-01-2022 13:12-0400 SaO2% (BldA) [Mass fraction] 100 % Avtar Hearn DO Work Phone: [facility] 03-01-2022 13:12-0400 Systolic blood pressure 128 mm[Hg] Avtar Hearn DO Work Phone: [facility] 02-22-2022 14:05-0400 Body temperature 97.9 [degF] Injection Wstr Work Phone: [facility] 01-25-2022 12:34-0400 Body temperature 97.9 [degF] Injection Wstr Work Phone: [facility] 01-25-2022 12:34-0400 Diastolic blood pressure 60 mm[Hg] Injection Wstr Work Phone: [facility] 01-25-2022 12:34-0400 Heart rate 79 /min Injection Wstr Work Phone: [facility] 01-25-2022 12:34-0400 Systolic blood pressure 132 mm[Hg] Injection Wstr Work Phone: [facility] 01-10-2022 08:05-0400 Body weight 62.14 kg Eryn Older BOAT RENTAL CLERK.INDUSTRIAL WASTE TREATMENT TECHNICIAN Work Phone: [facility] 01-10-2022 08:05-0400 Diastolic blood pressure 76 mm[Hg] Eryn Older BOAT RENTAL CLERK.INDUSTRIAL WASTE TREATMENT TECHNICIAN Work Phone: [facility] 01-10-2022 08:05-0400 Heart rate 64 /min Eryn Older BOAT RENTAL CLERK.INDUSTRIAL WASTE TREATMENT TECHNICIAN Work Phone: [facility] 01-10-2022 08:05-0400 Respiratory rate 16 /min Eryn Older BOAT RENTAL CLERK.INDUSTRIAL WASTE TREATMENT TECHNICIAN Work Phone: [facility] 01-10-2022 08:05-0400 Systolic blood pressure 124 mm[Hg] Eryn Older BOAT RENTAL CLERK.INDUSTRIAL WASTE TREATMENT TECHNICIAN Work Phone: [facility] 12-28-2021 11:25-0400 Body temperature 97.11 [degF] Raman Masci DO Work Phone: [facility] 12-28-2021 11:25-0400 Body weight 60.78 kg Raman Masci DO Work Phone: [facility] 12-28-2021 11:25-0400 Diastolic blood pressure 64 mm[Hg] Raman Masci DO Work Phone: [facility] 12-28-2021 11:25-0400 Heart rate 76 /min Raman Masci DO Work Phone: [facility] 12-28-2021 11:25-0400 Systolic blood pressure 128 mm[Hg] Raman Masci DO Work Phone: [facility] 12-10-2021 08:23-0400 Body weight 61.24 kg Eryn Older BOAT RENTAL CLERK.INDUSTRIAL WASTE TREATMENT TECHNICIAN Work Phone: [facility] 12-10-2021 08:23-0400 Diastolic blood pressure 70 mm[Hg] Eryn Older BOAT RENTAL CLERK.INDUSTRIAL WASTE TREATMENT TECHNICIAN Work Phone: [facility] 12-10-2021 08:23-0400 Heart rate 64 /min Eryn Older BOAT RENTAL CLERK.INDUSTRIAL WASTE TREATMENT TECHNICIAN Work Phone: [facility] 12-10-2021 08:23-0400 Respiratory rate 16 /min Eryn Older BOAT RENTAL CLERK.INDUSTRIAL WASTE TREATMENT TECHNICIAN Work Phone: [facility] 12-10-2021 08:23-0400 Systolic blood pressure 128 mm[Hg] Eryn Older BOAT RENTAL CLERK.INDUSTRIAL WASTE TREATMENT TECHNICIAN Work Phone: [facility] 11-02-2021 14:31-0400 Body temperature 97.9 [degF] Injection Wstr Work Phone: [facility] 11-02-2021 14:31-0400 Body weight 58.97 kg Injection Wstr Work Phone: [facility] 11-02-2021 14:31-0400 Diastolic blood pressure 55 mm[Hg] Injection Wstr Work Phone: [facility] 11-02-2021 14:31-0400 Heart rate 73 /min Injection Wstr Work Phone: [facility] 11-02-2021 14:31-0400 Systolic blood pressure 109 mm[Hg] Injection Wstr Work Phone: [facility] 10-30-2021 12:46-0400 Body height 165.[address] Clau Baca Work Phone: [facility] Work Phone: 10-30-2021 12:46-0400 Body mass index (BMI) [Ratio] 23.8 kg/m2 Dr. Clau Baca Work Phone: [facility] Work Phone: 10-30-2021 12:46-0400 Body temperature 97.3 [degF] Dr. Clau Baca Work Phone: [facility] Work Phone: 10-30-2021 12:46-0400 Body weight 64.[address] Clau Baca Work Phone: [facility] Work Phone: 10-30-2021 12:46-0400 Diastolic blood pressure 63 mm[Hg] Dr. Clau Baca Work Phone: [facility] Work Phone: 10-30-2021 12:46-0400 Heart rate 69 /min Dr. Clau Baca Work Phone: [facility] Work Phone: 10-30-2021 12:46-0400 Respiratory rate 18 /min Dr. Clau Baca Work Phone: [facility] Work Phone: 10-30-2021 12:46-0400 SaO2% (BldA) [Mass fraction] 100 % Dr. Clau Baca Work Phone: [facility] Work Phone: 10-30-2021 12:46-0400 Systolic blood pressure 135 mm[Hg] Dr. Clau Baca Work Phone: [facility] Work Phone: 10-27-2021 23:20-0400 Diastolic blood pressure 50 mm[Hg] Dr. Clau Baca Work Phone: [facility] Work Phone: 10-27-2021 23:20-0400 Heart rate 68 /min Dr. Clau Baca Work Phone: [facility] Work Phone: 10-27-2021 23:20-0400 Respiratory rate 17 /min Dr. Clau Baca Work Phone: [facility] Work Phone: 10-27-2021 23:20-0400 SaO2% (BldA) [Mass fraction] 97 % Dr. Clau Baca Work Phone: [facility] Work Phone: 10-27-2021 23:20-0400 Systolic blood pressure 131 mm[Hg] Dr. Clau Baca Work Phone: [facility] Work Phone: 10-27-2021 19:44-0400 Body height 165.[address] Clau Baca Work Phone: [facility] Work Phone: 10-27-2021 19:44-0400 Body mass index (BMI) [Ratio] 23.8 kg/m2 Dr. Clau Baca Work Phone: [facility] Work Phone: 10-27-2021 19:44-0400 Body temperature 98.1 [degF] Dr. lCau Baca Work Phone: [facility] Work Phone: 10-27-2021 19:44-0400 Body weight 64.[address] Clau Baca Work Phone: [facility] Work Phone: 09-06-2021 10:12-0400 Body temperature 97.39 [degF] Injection Wstr Work Phone: [facility] 09-06-2021 10:12-0400 Body weight 63.05 kg Injection Wstr Work Phone: [facility] 09-06-2021 10:12-0400 Diastolic blood pressure 66 mm[Hg] Injection Wstr Work Phone: [facility] 09-06-2021 10:12-0400 Heart rate 79 /min Injection Wstr Work Phone: [facility] 09-06-2021 10:12-0400 Systolic blood pressure 134 mm[Hg] Injection Wstr Work Phone: [facility] 04-23-2017 13:49-0500 BMI (Body Mass Index) 25.86 kg/m2 Violeta Lr PA-C [facility] Work Phone: 04-23-2017 13:49-0500 Body Temperature 98.2 [degF] Violeta Lr PA-C [facility] Work Phone: 04-23-2017 13:49-0500 BP Diastolic 82 mm[Hg] Violeta Lr PA-C [facility] Work Phone: 04-23-2017 13:49-0500 BP Systolic 126 mm[Hg] Violeta Lr PA-C [facility] Work Phone: 04-23-2017 13:49-0500 Height 160.02 cm Violeta Lr PA-C [email or web address] Work Phone: 04-23-2017 13:49-0500 Pulse (Heart Rate) 86 /min Violeta Lr PA-C [employer] Work Phone: 04-23-2017 13:49-0500 Respiratory Rate 14 /min Violeta Lr PA-C [facility] Work Phone: 04-23-2017 13:49-0500 Weight 66.23 kg Violeta Lr PA-C [employer] Work Phone: Encounters Encounter Date Encounter Type Care Provider Facility Start: 03-04-2025 End: 03-04-2025 ambulatory José Miguel LUNA Facility:[facility] Start: 12-15-2024 End: 12-16-2024 Telephone encounter Raman Caruso DO Work Phone: Hematology/Oncology Comment on above: Results Start: 12-10-2024 End: 12-10-2024 ambulatory José Miguel LUNA Facility:[facility] Start: 12-02-2024 End: 12-02-2024 Patient encounter procedure Raman Becerrai DO Work Phone: Hematology/Oncology Start: 12-02-2024 End: 12-02-2024 ambulatory Raman A Masci DO Work Phone: Hematology/Oncology Comment on above: Anemia due to stage 3b chronic kidney disease (HCC) (Primary Dx); Iron malabsorption (HCC); Copper deficiency; Megaloblastic anemia due to vitamin B12 deficiency Start: 12-01-2024 End: 12-01-2024 ambulatory RAMAN CARUSO Facility:[id number] Start: 10-10-2024 End: 10-10-[address] Ca Silva MD [facility] Work Phone: Start: 10-10-2024 End: 10-10-[address] José Miguel Hankins MD -[facility] Start: 10-10-2024 End: 10-10-2024 ambulatory Ca Silva Facility:[facility] Start: 08-07-2024 End: 08-07-2024 Telephone encounter Raman Caruso DO Work Phone: Hematology/Oncology Comment on above: Electronic Communica tion Start: 08-01-2024 End: 08-02-2024 Telephone encounter Raman Caruso DO Work Phone: [place] Provider Adult Comment on above: Results Start: 07-30-2024 End: 07-30-2024 Telephone encounter Clau Baca MD Work Phone: [facility] Comment on above: Fax Labs Start: 07-29-2024 End: 07-29-2024 ambulatory RAMAN CARUSO Facility:[facility] Start: 06-12-2024 End: 06-12-2024 ambulatory Treatment Rm 15 [facility] [employer] Work Phone: Hematology/Oncology Comment on above: Iron deficiency anem ia secondary to inadequate dietary iron intake (Primary Dx); Anemia due to stage 3b chronic kidney disease (HCC) (HCC); History of gastric bypass; Iron malabsorption Start: 06-10-2024 End: 06-10-2024 ambulatory Treatment Rm 17 [facility] [employer] Work Phone: Hematology/Oncology Comment on above: Anemia due to stage 3b chronic kidney disease (HCC) (HCC) (Primary Dx); History of gastric bypass; Iron malabsorption Start: 06-06-2024 End: 06-06-2024 ambulatory Treatment Rm 15 [facility] [employer] Work Phone: Hematology/Oncology Comment on above: Anemia due to stage 3b chronic kidney disease (HCC) (HCC) (Primary Dx); History of gastric bypass; Iron malabsorption Start: 06-03-2024 End: 06-03-2024 ambulatory Treatment 15 [facility] [employer] Work Phone: Hematology/Oncology Comment on above: Anemia due to stage 3b chronic kidney disease (HCC) (HCC) (Primary Dx); History of gastric bypass; Iron malabsorption Start: 05-31-2024 End: 05-31-2024 ambulatory Treatment Rm 15 [facility] [employer] Work Phone: Hematology/Oncology Comment on above: Iron deficiency anem ia secondary to inadequate dietary iron intake (Primary Dx); Anemia due to stage 3b chronic kidney disease (HCC) (HCC); History of gastric bypass; Iron malabsorption Start: 05-28-2024 End: 05-28-2024 ambulatory Treatment Rm 16 [facility] [employer] Work Phone: Hematology/Oncology Comment on above: Anemia due to stage 3b chronic kidney disease (HCC) (HCC) (Primary Dx); History of gastric bypass; Iron malabsorption Start: 05-21-2024 End: 05-21-2024 ambulatory RAMAN CARUSO Facility:[facility] Start: 05-21-2024 End: 05-21-2024 Office outpatient visit 25 minutes Raman Caruso DO Work Phone: Hematology/Oncology Comment on above: Anemia due to stage 3b chronic kidney disease (HCC) (HCC) (Primary Dx); History of gastric bypass; Iron malabsorption Start: 05-20-2024 End: 05-20-2024 ambulatory RAMAN CARUSO Facility:[facility] Start: 12-17-2023 Telephone encounter Raman hutchins DO Work Phone: Hematology/Oncology Comment on above: Results Start: 12-04-2023 End: 12-04-2023 ambulatory Raman Caruso DO Work Phone: Hematology/Oncology Comment on above: Megaloblastic anemia due to vitamin B12 deficiency (Primary Dx); Iron 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 Start: 12-04-2023 End: 12-04-2023 Patient encounter procedure Raman A Masci DO Work Phone: Hematology/Oncology Start: 09-04-2023 End: 09-04-[address] [facility] Work Phone: Start: 09-04-2023 End: 09-04-2023 Departed Referred [facility] Start: 08-05-2023 Follow-up encounter Ulises cuenac MD Work Phone: [facility] Start: 08-05-2023 Pacemaker Remote F/U Ulises Carlson MD Work Phone: [facility] Start: 04-30-2023 Follow-up encounter Ulises cuenca MD Work Phone: [facility] Start: 04-30-2023 Pacemaker Remote F/U Ulises Carlson MD Work Phone: [facility] Start: 04-24-2023 Registered Referred [facility] Start: 04-17-2023 End: 04-17-[address] [facility] Work Phone: Start: 04-17-2023 End: 04-17-2023 Departed Referred [facility] Start: 02-20-2023 End: 02-20-2023 Departed Referred [facility] Start: 01-05-2023 ambulatory Carmelo Leavitt RN [facility] Care Management Comment on above: Community Monitoring Outreach Start: 12-12-2022 Telephone encounter Penny ellison APRN.INDUSTRIAL WASTE TREATMENT TECHNICIAN Work Phone: Hematology/Oncology Comment on above: AVS 12/12 Start: 12-12-2022 End: 12-12-2022 ambulatory Penny Quinteros APRN.INDUSTRIAL WASTE TREATMENT TECHNICIAN Work Phone: Hematology/Oncology Comment on above: Megaloblastic anemia due to vitamin B12 deficiency (Primary Dx); Iron 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 Start: 12-12-2022 End: 12-12-2022 Patient encounter procedure Penny Quinteros APRN.INDUSTRIAL WASTE TREATMENT TECHNICIAN Work Phone: [facility] Start: 12-11-2022 Follow-up encounter Ulises cuenca MD Work Phone: [facility] Start: 12-11-2022 Pacemaker Remote F/U Ulises Carlson MD Work Phone: [facility] Start: 11-23-2022 End: 11-23-2022 Patient encounter [...] Start: 10-04-2022 End: 10-04-2022 ambulatory Injection [facility] Work Phone: Hematology/Oncology Comment on above: Megaloblastic anemia due to vitamin B12 deficiency (Primary Dx) Start: 09-13-[address] Clau Baca Work Phone: [facility] Start: 09-12-2022 End: 09-12-2022 Emergency department patient visit Dr. Clau Baca Work Phone: [facility]-Emergency Department Start: 09-06-2022 End: 09-06-2022 ambulatory Injection [facility] Work Phone: Hematology/Oncology Comment on above: Megaloblastic anemia due to vitamin B12 deficiency (Primary Dx) Start: 09-06-[address] Clau Baca Work Phone: [facility] Start: 09-05-2022 Follow-up encounter Ulises cuenca MD Work Phone: [facility] Start: 09-05-2022 Patient encounter procedure Ulises Fischer MD Work Phone: [facility] Start: 09-02-2022 ambulatory Carmelo Leavitt RN [facility] Care Management Comment on above: Community Monitoring Outreach Start: 08-30-2022 End: 08-30-[address] Clau Baca Work Phone: [facility] Work Phone: Start: 08-30-2022 End: 08-30-[address] Clau Baca Work Phone: [facility] Start: 08-30-[address] Clau Baca Work Phone: [facility] Start: 08-26-2022 Follow-up encounter Ulises cuenca MD Work Phone: [facility] Start: 08-26-2022 Pacemaker Remote F/U Ulises Carlson MD Work Phone: [facility] Start: 08-24-[address] Clau Baca Work Phone: [facility] Start: 08-23-2022 Non-patient / Non-visit Dr. Clau Baca Work Phone: [facility] Start: 08-22-2022 Non-patient / Non-visit Dr. Clau Baca Work Phone: [facility] Start: 08-21-2022 Non-patient / Non-visit Dr. Clau Baca Work Phone: [facility] Start: 08-20-2022 Non-patient / Non-visit Dr. Clau Baca Work Phone: [facility] Start: 08-19-2022 End: 08-23-2022 Evaluation and management of inpatient Dr. Clau Baca Work Phone: [facility] Start: 08-19-2022 Non-patient / Non-visit Dr. Clau Baca Work Phone: [facility] Start: 08-19-2022 Evaluation and management of inpatient Dr. Clau Baca Work Phone: [facility] Start: 08-19-[address] Jerome Baca Work Phone: [facility] Work Phone: Start: 08-12-2022 End: 08-12-2022 Emergency department patient visit Dr. Clau Baca Work Phone: [facility]-Emergency Department Start: 08-09-2022 Refill Eryn Older BOAT RENTAL CLERK .INDUSTRIAL WASTE TREATMENT TECHNICIAN Work Phone: [facility] Comment on above: Refill Request Start: 07-26-2022 End: 07-26-[address] Clau Baca Work Phone: [facility] Start: 07-12-2022 End: 07-12-2022 ambulatory Injection [facility] Work Phone: Hematology/Oncology Comment on above: Megaloblastic anemia due to vitamin B12 deficiency (Primary Dx) Start: 07-09-2022 Refill Eryn Older BOAT RENTAL CLERK .INDUSTRIAL WASTE TREATMENT TECHNICIAN Work Phone: [facility] Comment on above: Refill Request Start: 07-01-2022 [...] Start: 06-14-2022 End: 06-14-2022 ambulatory Injection [facility] Work Phone: Hematology/Oncology Comment on above: Megaloblastic anemia due to vitamin B12 deficiency (Primary Dx) Start: 06-09-2022 Telephone encounter Clau cassidy MD Work Phone: [facility] Comment on above: Social Work Delay of Care Start: 06-07-2022 Telephone encounter Clau cassidy MD Work Phone: [facility] Comment on above: [facility] OT POC Start: 06-05-2022 Follow-up encounter Ulises cuenca MD Work Phone: [facility] Start: 06-05-2022 Pacemaker Remote F/U Ulises Carlson MD Work Phone: [facility] Start: 06-03-2022 Telephone encounter Clau cassidy MD Work Phone: [facility] Comment on above: Home Health Point of Care Results; Orders Start: 06-01-2022 Non-patient / Non-visit Dr. Clau Baca Work Phone: [facility] Start: 06-01-2022 Telephone encounter Clau cassidy MD Work Phone: [facility] [place] Comment on above: [facility] agree to foll ow request Start: 05-31-2022 Non-patient / Non-visit Dr. Clau Baca Work Phone: [facility] Start: 05-30-2022 Non-patient / Non-visit Dr. Clau Baca Work Phone: [facility] Start: 05-30-2022 End: 06-02-2022 [facility] Start: 05-30-2022 Telephone encounter Clau cassidy MD Work Phone: [facility] [place] Comment on above: Patient Update Start: 05-17-2022 End: 05-17-2022 ambulatory Injection [facility] Work Phone: Hematology/Oncology Comment on above: Megaloblastic anemia due to vitamin B12 deficiency (Primary Dx) Start: 05-12-2022 Telephone encounter Eryn Elliott APRN.INDUSTRIAL WASTE TREATMENT TECHNICIAN Work Phone: [facility] Comment on above: Blood Pressure Check (/) Start: 05-12-2022 End: 05-12-2022 Nursing evaluation of patient and report Mi Nurse Work Phone: [facility] Comment on above: Complete heart block (HCC) (Primary Dx); History of endocarditis Start: 04-22-2022 Telephone encounter Clau cassidy MD Work Phone: Internal [facility] Comment on above: Results Start: 04-19-2022 End: 04-19-2022 ambulatory Injection [facility] Work Phone: Hematology/Oncology Comment on above: Megaloblastic anemia due to vitamin B12 deficiency (Primary Dx) Start: 04-05-2022 ambulatory Tree Chaparro RN [facility] Comment on above: Community Monitoring Outreach Start: 03-22-2022 End: 03-22-2022 ambulatory Injection [facility] Work Phone: Hematology/Oncology Comment on above: Megaloblastic anemia due to vitamin B12 deficiency (Primary Dx) Start: 03-14-2022 Refill Eryn OwenINDUSTRIAL WASTE TREATMENT TECHNICIAN Work Phone: [facility] Comment on above: Refill Request Start: 03-14-2022 Refill Eryn OwenINDUSTRIAL WASTE TREATMENT TECHNICIAN Work Phone: [facility] [place] Comment on above: Refill Request Start: 03-01-2022 End: 03-01-2022 Patient encounter procedure Avtar Hearn DO Work Phone: Cardiology Comment on above: Hyperlipidemia, mixe d (Primary Dx); S/P AVR; Complete heart block (HCC); History of endocarditis; Memory deficit; Stage 3 chronic kidney disease, unspecified whether stage 3a or 3b CKD (HCC); Pacemaker Start: 02-28-2022 Follow-up encounter Ulises cuenca MD Work Phone: [facility] Start: 02-28-2022 Pacemaker Remote F/U Ulises Carlson MD Work Phone: [facility] Start: 02-22-2022 End: 02-22-2022 ambulatory Injection [facility] Work Phone: Hematology/Oncology Comment on above: Megaloblastic anemia due to vitamin B12 deficiency (Primary Dx) Start: 02-20-2022 Refill Eryn Elliott APRN .INDUSTRIAL WASTE TREATMENT TECHNICIAN Work Phone: [facility] Comment on above: Refill Request Start: 02-02-2022 Refill Eryn Elliott APRN .INDUSTRIAL WASTE TREATMENT TECHNICIAN Work Phone: [facility] Comment on above: Refill Request Start: 01-25-2022 End: 01-25-2022 ambulatory Injection [facility] Work Phone: Hematology/Oncology Comment on above: Megaloblastic anemia due to vitamin B12 deficiency (Primary Dx) Start: 01-12-2022 Telephone encounter Eryn Elliott APRN.INDUSTRIAL WASTE TREATMENT TECHNICIAN Work Phone: [facility] Comment on above: Results Start: 01-12-2022 End: 01-12-2022 Nursing evaluation of patient and report Mi Nurse Work Phone: [facility] Comment on above: Need for vaccination (Primary Dx) Start: 01-10-2022 Telephone encounter Eryn Elliott BOAT RENTAL CLERK.INDUSTRIAL WASTE TREATMENT TECHNICIAN Work Phone: [facility] Comment on above: Orders Start: 01-10-2022 End: 01-10-2022 Patient encounter procedure rEyn Elliott BOAT RENTAL CLERK.INDUSTRIAL WASTE TREATMENT TECHNICIAN Work Phone: [facility] Comment on above: Stage 3 chronic kidn ey disease, unspecified whether stage 3a or 3b CKD (HCC) (Primary Dx); Function kidney decreased; 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; Hyperlipidemia, unspecified hyperlipidemia [...] Start: 12-28-2021 End: 12-28-2021 ambulatory Injection [facility] Work Phone: Hematology/Oncology Comment on above: Megaloblastic anemia due to vitamin B12 deficiency (Primary Dx) Start: 12-28-2021 End: 12-28-2021 Patient encounter procedure Raman Caruso DO Work Phone: [facility] Start: 12-27-2021 Orders Only Raman Pressley Work Phone: Hematology/Oncology Comment on above: Megaloblastic anemia due to vitamin B12 deficiency (Primary Dx); Iron 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; Other vitamin B12 deficiency anemia; Copper deficiency Start: 12-10-2021 End: 12-10-2021 Patient encounter procedure Eryn Elliott APRN.CNP Work Phone: [facility] Comment on above: Dark stools (Primary Dx); [...] encounter Ulises cuenca MD Work Phone: [facility] Start: 11-19-2021 Pacemaker Remote F/U Ulises Carlson MD Work Phone: [facility] Department Start: 11-11-2021 End: 11-11-2021 Patient encounter procedure Anatoly Brown DO Work Phone: Orthopaedics Comment on above: 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); Status post revision of total replacement of left knee Start: 11-11-2021 End: 11-11-2021 Subsequent hospital visit by physician Xr [facility] Comment on above: 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 Clau [facility] Start: 10-29-2021 Telephone encounter Eryn Elliott APRN.CNP Work Phone: [facility] [place] Comment on above: Results Start: 10-27-2021 End: 10-27-2021 Emergency department patient visit Dr. 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) Orders Acute pain of left k nee [M25.562] Start: 10-04-2021 Telephone encounter Raman Walters liset CARCAMO Work Phone: Hematology/Oncology Comment on above: Appointment Cancelle d Start: 09-30-2021 ambulatory Tree Chaparro RN Am bulatory Care Management Comment on above: [employer] ( [employer] Questionnaire Triggered call) Start: 09-13-2021 ambulatory Tree Chaparro RN Am bulatory Care Management Comment on above: Community Monitoring Outreach (CKD CDM Outreach) Start: 09-06-2021 End: 09-06-2021 ambulatory Injection Hai [facility] Work Phone: Hematology/Oncology Comment on above: Megaloblastic anemia due to vitamin B12 deficiency (Primary Dx) Start: 09-05-2021 Refill Clau Laureano Work Phone: Internal Medicine [place] Comment on above: Refill Request Start: 09-03-2021 ambulatory Tree Chaparro RN Am bulatory Care Management Comment on above: Community Monitoring Outreach (CKD CDM) Start: 08-23-2021 ambulatory Tree Chaparro RN Am bulatory Care Management Comment on above: Community Monitoring Outreach ( Bronchitis CDM Enrollment) Start: 08-22-2021 Follow-up encounter Ulises cuenca MD Work Phone: [facility] Start: 08-22-2021 Pacemaker Remote F/U Ulises Carlson MD Work Phone: [facility] Department Start: 07-20-2021 End: 07-20-[address] 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, subsequent encounter [T84.54XD] Start: 01-15-2021 End: 01-15-2021 Subsequent hospital visit by physician Xr [facility] Work Phone: Radiology Comment on above: 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, initial encounter ([facility]) [T84.54XA] Start: 12-11-2020 End: 12-11-2020 Subsequent hospital visit by physician Xr [facility] Work Phone: Radiology Comment on above: 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, initial encounter ([facility]) [T84.54XA] Start: 10-30-2020 End: 10-30-2020 Subsequent hospital visit by physician Xr [facility] Work Phone: Radiology Comment on above: Left knee pain, unsp ecified chronicity [M25.562] Start: 03-31-2020 End: 03-31-2020 Subsequent hospital visit by physician Xr [facility] Work Phone: Radiology Comment on above: Fall, subsequent enc ounter [W19.XXXD] Start: 04-19-2019 End: 04-30-2019 Patient encounter status Raman Caruso DO Work Phone: [facility] Work Phone: Procedures Date Procedure Procedure Detail [...] contrast Dr. Clau Baca Work Phone: Start: 09-05-2022 PACEMAKER CLINIC CHECK [...] contrast Dr. Clau Baca Work Phone: Start: 07-26-[address] Billy Baca Work Phone: Start: 06-05-2022 PACEMAKER REMOTE CHECK Ulises Fischer MD Work Phone: Start: 02-28-2022 PACEMAKER REMOTE CHECK Ulises Fischer MD Work Phone: Start: 01-12-2022 [employer] COVI D-19 VACCINE, AGE 12+ YR ([place] TOP) Clau Baca MD Work Phone: Start: 11-19-2021 PACEMAKER REMOTE CHECK Ulises Fischer MD Work Phone: Start: 11-11-2021 Radiologic examinati on knee 3 views Anatoly Brown DO Work Phone: Start: 10-30-2021 End: 10-30-2021 Measurement of occult blood in stool specimen using immunoassay Dr. Clau Baca Work Phone: Start: 10-27-2021 Plain chest X-ray Dr. Vanda Baca Work Phone: Start: 10-27-[address] [...] views Anatoly Brown DO Work Phone: Start: 10-30-2020 Radiologic exam [...] Detail Author Start: 07-29-2027 [facility] Start: 05-20-2027 [facility] Start: 06-20-2025 DIABETES SCREEN DIABETES SCREEN [facility] Start: 06-20-2025 Diabetes Screening Diabetes Screenin g [facility] Start: 06-09-2025 End: 06-09-2025 ambulatory [facility] Comment on above: CBC/BMP/B12/MMA/PB ER/Iron studies 6MO OV/LABS Start: 04-19-2025 DIABETES SCREEN DIABETES SCREEN [facility] Start: 03-16-2025 DIABETES SCREEN DIABETES SCREEN [facility] Start: 02-03-2025 Influenza vaccination [facility] Start: 01-10-2025 DIABETES SCREEN DIABETES SCREEN [facility] Start: 12-28-2024 DIABETES SCREEN DIABETES SCREEN [facility] Start: 12-03-2024 Complete blood count Hemoglobin/Hai tocrit [facility] Start: 12-02-2024 End: 03-03-2025 Ferritin [Mass/volume] in Serum or Plasma [facility] Work Phone: Comment on above: Expected: 12/02/2024 , Expires: 03/03/2025 Start: 12-02-2024 End: 03-03-2025 Iron and Iron binding capacity panel - Serum or Plasma [facility] Comment on above: Expected: 12/02/2024 , Expires: 03/03/2025 Start: 12-02-2024 End: 12-02-2024 ambulatory [facility] Comment on above: CBC/B12/MMA/Copper* I YR OV/LABS EARLY* Start: 09-25-2024 Covid-19 Vaccine ( season) Covid-19 Vaccine () [facility] Start: 08-08-2024 End: 08-08-2024 ambulatory 08/08/2024 2:00 PM EST Visit (SP) Office Hematology/Oncology [address] [place] [address] Vivi Cooley [address] [place] [address] 2MO OV/LABS 07/29* Hematology/Oncology Comment on above: 2MO OV/LABS 07/29* Start: 08-01-2024 End: 08-01-2024 ambulatory Hematology/Oncology Comment on above: 2MO OV/LABS? 2MO OV/LABS 07/29* Start: 07-29-2024 End: 07-29-2024 ambulatory 07/29/2024 10:00 AM EST Results Only Cat T[facility] Laboratory [address] [place] [address] CBC/BMP/IRON STUDIES/B12/FOLATE/TSH/ [facility] Laboratory Comment on above: CBC/BMP/IRON STUDIES /B12/FOLATE/TSH/COPPER Start: 07-12-2024 DIABETES SCREEN DIABETES SCREEN [facility] Start: 06-10-2024 End: 06-10-2024 ambulatory 06/10/2024 3:30 PM EST Infusion Center Hematology/Oncology [address] [place] [address] 2ND FLOOR Hematology/Oncology Comment on above: 2ND FLOOR Start: 06-06-2024 End: 06-06-2024 ambulatory 06/06/2024 3:00 PM EST Infusion Center Hematology/Oncology [address] [place] [address] 2ND FLOOR Hematology/Oncology Comment on above: 2ND FLOOR Start: 06-05-2024 Advance Directive Discussion Advance Directive Discussion [facility] Start: 06-03-2024 End: 06-03-2024 ambulatory 06/03/2024 9:30 AM EST Infusion Center Hematology/Oncology [address] [place] [address] 2ND FLOOR Hematology/Oncology Comment on above: 2ND FLOOR Start: 05-31-2024 End: 05-31-2024 ambulatory 05/31/2024 3:00 PM EST Infusion Center Hematology/Oncology [address] [place] [address] 2ND FLOOR Hematology/Oncology Comment on above: 2ND FLOOR Start: 05-30-2024 End: 05-30-2024 ambulatory 05/30/2024 3:30 PM EST Infusion Center Hematology/Oncology [address] [place] [address] 2ND FLOOR Hematology/Oncology Comment on above: 2ND FLOOR Start: 05-28-2024 End: 05-28-2024 ambulatory 05/28/2024 11:00 AM EST Infusion Center Hematology/Oncology [address] [place] [address] 2ND FLOOR Hematology/Oncology Comment on above: 2ND FLOOR Start: 05-21-2024 End: 05-21-2024 ambulatory 05/21/2024 9:30 AM EST Visit (SP) Office Hematology/Oncology [address] [place] [address] Raman Caruso DO [address] [place] [address] I YR OV/LABS EARLY* Hematology/Oncology Comment on above: I YR OV/LABS EARLY* Start: 05-14-2024 End: 05-14-2024 ambulatory 05/14/2024 9:00 AM EST Results Only [facility] Laboratory [address] [place] [address] CBC/BMP/iron studies* [facility] Comment on above: CBC/BMP/iron studies * Start: 02-04-2024 Covid-19 Vaccine ( season) Covid-19 Vaccine ( season) [facility] Start: 02-04-2024 Covid-19 Vaccine ( season) Covid-19 Vaccine ( season) [facility] Start: 02-04-2024 Influenza vaccination Influenza Vacc ine (#1) [facility] Start: 12-04-2023 End: 03-04-2024 Cobalamin (Vitamin B12) [Mass/volume] in Serum or Plasma [facility] Work Phone: Comment on above: Expected: 12/04/2023 , Expires: 03/04/2024 Start: 12-04-2023 End: 03-04-2024 COPPER BLOOD [facility] Comment on above: Expected: 12/04/2023 , Expires: 03/04/2024 Start: 12-04-2023 End: 03-04-2024 Ferritin [Mass/volume] in Serum or Plasma [facility] Comment on above: Expected: 12/04/2023 , Expires: 03/04/2024 Start: 12-04-2023 End: 03-04-2024 Iron and Iron binding capacity panel - Serum or Plasma [facility] Comment on above: Expected: 12/04/2023 , Expires: 03/04/2024 Start: 12-04-2023 End: 03-04-2024 Methylmalonate [Moles/volume] in Serum or Plasma [facility] Comment on above: Expected: 12/04/2023 , Expires: 03/04/2024 Start: 11-24-2023 Complete blood count Hemoglobin/Hai tocrit [facility] Start: 11-24-2023 HEMOGLOBIN[facility]OCRIT [facility] Start: 10-21-2023 Covid-19 Vaccine () Covid-19 Vaccine () [facility] Start: 10-05-2023 HEMOGLOBIN/HEMATOCRIT HEMOGLOBIN/HEM ATOCRIT [facility] Start: 09-07-2023 HEMOGLOBIN/HEMATOCRIT HEMOGLOBIN/HEM ATOCRIT [facility] Start: 08-10-2023 HEMOGLOBIN/HEMATOCRIT HEMOGLOBIN/HEM ATOCRIT [facility] Start: 07-12-2023 HEMOGLOBIN/HEMATOCRIT HEMOGLOBIN/HEM ATOCRIT [facility] Start: 06-20-2023 Creatinine measurement Serum Creatin ine [facility] Start: 06-20-2023 HEMOGLOBIN/HEMATOCRIT HEMOGLOBIN/HEM ATOCRIT [facility] Start: 06-20-2023 SERUM CREATININE SERUM CREATININE Cl [facility] Start: 06-16-2023 ANNUAL PCP TEAM VISITING TEACHER LINA DISEASE VISIT ANNUAL PCP TEAM CHRONIC DISEASE VISIT [facility] Start: 06-14-2023 HEMOGLOBIN/HEMATOCRIT HEMOGLOBIN/HEM ATOCRIT [facility] Start: 06-05-2023 Advance Directive Discussion Advance Directive Discussion [facility] Start: 05-17-2023 HEMOGLOBIN/HEMATOCRIT HEMOGLOBIN/HEM ATOCRIT [facility] Start: 04-19-2023 HEMOGLOBIN/HEMATOCRIT HEMOGLOBIN/HEM ATOCRIT [facility] Start: 04-19-2023 SERUM CREATININE SERUM CREATININE [facility] Start: 04-12-2023 ANNUAL PCP TEAM VISITING TEACHER LINA DISEASE VISIT ANNUAL PCP TEAM CHRONIC DISEASE VISIT [facility] Start: 03-22-2023 HEMOGLOBIN/HEMATOCRIT HEMOGLOBIN/HEM ATOCRIT [facility] Start: 03-16-2023 SERUM CREATININE SERUM CREATININE [facility] Start: 02-22-2023 HEMOGLOBIN/HEMATOCRIT HEMOGLOBIN/HEM ATOCRIT [facility] Start: 02-03-2023 Covid-19 Vaccine () Covid-19 Vaccine () [facility] Start: 02-03-2023 Influenza vaccination [facility] Start: 01-25-2023 HEMOGLOBIN/HEMATOCRIT HEMOGLOBIN/HEM ATOCRIT [facility] Start: 01-10-2023 ANNUAL PCP TEAM VISITING TEACHER LINA DISEASE VISIT ANNUAL PCP TEAM CHRONIC DISEASE VISIT [facility] Start: 01-10-2023 Hepatitis B surface antibody level LDL CHOLESTEROL [facility] Start: 01-10-2023 PNEUMOCOCCAL: 65+ (2 - PCV) PNEUMOCOCCAL: 65+ (2 - PCV) [facility] Comment on above: Postponed from 04/11 (Declined at this time) Start: 01-10-2023 SERUM CREATININE SERUM CREATININE [facility] Start: 12-28-2022 HEMOGLOBIN/HEMATOCRIT HEMOGLOBIN/HEM ATOCRIT [facility] Start: 12-28-2022 SERUM CREATININE SERUM CREATININE [facility] Start: 12-10-2022 ANNUAL PCP TEAM VISITING TEACHER LINA DISEASE VISIT ANNUAL PCP TEAM CHRONIC DISEASE VISIT [facility] Start: 12-02-2022 HEMOGLOBIN/HEMATOCRIT HEMOGLOBIN/HEM ATOCRIT [facility] Start: 11-02-2022 HEMOGLOBIN/HEMATOCRIT HEMOGLOBIN/HEM ATOCRIT [facility] Start: 10-29-2022 HEMOGLOBIN/HEMATOCRIT HEMOGLOBIN/HEM ATOCRIT [facility] Start: 10-27-2022 HEMOGLOBIN/HEMATOCRIT HEMOGLOBIN/HEM ATOCRIT [facility] Start: 10-21-2022 ANNUAL PCP TEAM VISITING TEACHER LINA DISEASE VISIT ANNUAL PCP TEAM CHRONIC DISEASE VISIT [facility] Start: 10-21-2022 HEMOGLOBIN/HEMATOCRIT HEMOGLOBIN/HEM ATOCRIT [facility] Start: 09-06-2022 HEMOGLOBIN/HEMATOCRIT HEMOGLOBIN/HEM ATOCRIT [facility] Start: 08-23-2022 Patient discharge [facility] Start: 08-20-2022 Application of intermittent pneumatic compression device [facility] Start: 08-19-2022 End: 08-19-2022 Following clinical pathway protocol [facility] Start: 08-19-2022 Admission procedure [facility] Start: 08-19-2022 Ambulation without limitation [facility] Start: 08-19-2022 Assessment of risk o f venous thromboembolism [facility] Start: 08-19-2022 Insertion of cathete r into peripheral vein [facility] Start: 08-19-2022 Providing care accor ding to standard [facility] Start: 08-19-2022 Referral to occupati onal therapist [facility] Start: 08-19-2022 Referral to service [facility] Start: 08-19-2022 Verification routine [facility] Start: 08-19-2022 Admission procedure [facility] Start: 08-19-2022 Blood culture [facility] Start: 08-19-2022 End: 08-19-[address] [facility] Start: 08-19-20[address] Blood culture [facility] Start: 08-12-2022 [facility] Start: 08-09-2022 HEMOGLOBIN/HEMATOCRIT HEMOGLOBIN/HEM ATOCRIT [facility] Start: 07-12-2022 SERUM CREATININE SERUM CREATININE Cl [facility] Start: 06-16-2022 ANNUAL PCP TEAM VISITING TEACHER LINA DISEASE VISIT ANNUAL PCP TEAM CHRONIC DISEASE VISIT [facility] Start: 06-16-2022 SHINGRIX VACCINE (1 of 2) RUIZ GRIX VACCINE (1 of 2) [facility] Comment on above: Postponed from 05/03 (Declined at this time) Start: 06-16-2022 Urine microalbumin profile DTAP,TDAP ,TD (1 - Tdap) [facility] Comment on above: Postponed from 05/03 (Declined at this time) Start: 06-14-2022 End: 08-14-2022 COPPER BLOOD COPPER BLOOD Lab Routine Iron 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 Copper deficiency Expected: 06/14/2022, Expires: 08/14/2022 [facility] Work Phone: Comment on above: Expected: 06/14/2022 , Expires: 08/14/2022 Start: 06-14-2022 End: 08-14-2022 Ferritin [Mass/volume] in Serum or Plasma FERRITIN BLD Lab Routine Iron 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 Copper deficiency Expected: 06/14/2022, Expires: 08/14/2022 [facility] Work Phone: Comment on above: Expected: 06/14/2022 , Expires: 08/14/2022 Start: 06-14-2022 End: 08-14-2022 Iron and Iron binding capacity panel - Serum or Plasma IRON + TIBC Lab Routine Iron 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 Copper deficiency Expected: 06/14/2022, Expires: 08/14/2022 [facility] Work Phone: Comment on above: Expected: 06/14/2022 , Expires: 08/14/2022 Start: 06-05-2022 ADVANCE DIRECTIVE DISCUSSION ADVANCE DIRECTIVE DISCUSSION [facility] Start: 06-02-2022 Patient discharge [facility] Start: 06-01-2022 Removal of urinary catheter [facility] Start: 06-01-2022 Referral to service [facility] Start: 06-01-2022 Removal of urinary catheter [facility] Start: 05-30-2022 Application of intermittent pneumatic compression device [facility] Start: 05-30-2022 Following clinical p athway protocol [facility] Start: 05-30-2022 Assessment of risk o f venous thromboembolism [facility] Start: 05-30-2022 Documentation procedure [facility] Start: 05-30-2022 Incentive spirometry [facility] Start: 05-30-2022 Insertion of cathete r into peripheral vein [facility] Start: 05-30-2022 Measuring intake and output [facility] Start: 05-30-2022 Providing care accor ding to standard [facility] Start: 05-30-2022 Referral to occupati onal therapist [facility] Start: 05-30-2022 Referral to service [facility] Start: 05-30-2022 [facility] Start: 05-30-2022 Verification routine [facility] Work Phone: Start: 05-30-2022 Measurement of occul t blood in stool specimen using immunoassay [facility] Work Phone: Start: 05-30-2022 Urinalysis complete panel - Urine [facility] Work Phone: Start: 05-30-2022 Admission procedure [facility] Start: 03-09-2022 COVID-19 VACCINE (5 - Booster for Pfizer series) COVID-19 VACCINE (5 - Booster for Pfizer series) [facility] Start: 03-09-2022 COVID-19 VACCINE (5 - Pfizer series) COVID-19 VACCINE (5 - Pfizer series) [facility] Start: 02-03-2022 Influenza vaccination INFLUENZA (#1) [facility] Start: 01-26-2022 End: 03-28-2022 Basic metabolic 2000 panel - Serum or Plasma BASIC METABOLIC PNL Lab Routine Function kidney decreased Expected: 01/26/2022 (Approximate), Expires: 03/28/2022 [facility] Work Phone: Comment on above: Expected: 01/26/2022 (Approximate), Expires: 03/28/2022 Start: 01-10-2022 End: 03-12-2022 Lipid 1996 panel - Serum or Plasma [facility] Work Phone: Comment on above: Expected: 01/10/2022 , Expires: 03/12/2022 Start: 12-28-2021 End: 02-27-2022 CBC W Auto Differential panel - Blood CBC + DIFF Lab STAT 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 Other vitamin B12 deficiency anemia Copper deficiency Expected: 12/28/2021, Expires: 02/27/2022 [facility] Work Phone: Comment on above: Expected: 12/28/2021 , Expires: 02/27/2022 Start: 12-28-2021 End: 02-27-2022 Cobalamin (Vitamin B12) [Mass/volume] in Serum or Plasma VITAMIN B12 BLOOD Lab Routine 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 Other vitamin B12 deficiency anemia Copper deficiency Expected: 12/28/2021, Expires: 02/27/2022 [facility] Work Phone: Comment on above: Expected: 12/28/2021 , Expires: 02/27/2022 Start: 12-28-2021 End: 02-27-2022 Comprehensive metabolic 2000 panel - Serum or Plasma COMP METABOLIC PANEL Lab Routine 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 Other vitamin B12 deficiency anemia Copper deficiency Expected: 12/28/2021, Expires: 02/27/2022 [facility] Work Phone: Comment on above: Expected: 12/28/2021 , Expires: 02/27/2022 Start: 12-28-2021 End: 02-27-2022 COPPER BLOOD COPPER BLOOD Lab Routine 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 Other vitamin B12 deficiency anemia Copper deficiency Expected: 12/28/2021, Expires: 02/27/2022 [facility] Work Phone: Comment on above: Expected: 12/28/2021 , Expires: 02/27/2022 Start: 12-28-2021 End: 02-27-2022 Ferritin [Mass/volume] in Serum or Plasma FERRITIN BLD Lab Routine 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 Other vitamin B12 deficiency anemia Copper deficiency Expected: 12/28/2021, Expires: 02/27/2022 [facility] Work Phone: Comment on above: Expected: 12/28/2021 , Expires: 02/27/2022 Start: 12-28-2021 End: 02-27-2022 Iron and Iron binding capacity panel - Serum or Plasma IRON + TIBC Lab Routine 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 Other vitamin B12 deficiency anemia Copper deficiency Expected: 12/28/2021, Expires: 02/27/2022 [facility] Work Phone: Comment on above: Expected: 12/28/2021 , Expires: 02/27/2022 Start: 12-24-2021 End: 02-23-2022 Comprehensive metabolic 2000 panel - Serum or Plasma COMP METABOLIC PANEL Lab Routine Stage 3 chronic kidney disease, unspecified whether stage 3a or 3b CKD (HCC) Medication monitoring encounter Expected: 12/24/2021 (Approximate), Expires: 02/23/2022 [facility] Work Phone: Comment on above: Expected: 12/24/2021 (Approximate), Expires: 02/23/2022 Start: 12-10-2021 End: 02-09-2022 Lipid 1996 panel - Serum or Plasma LIPID PANEL BASIC Lab Routine Hyperlipidemia, unspecified hyperlipidemia type Expected: 12/10/2021, Expires: 02/09/2022 [facility] Work Phone: Comment on above: Expected: 12/10/2021 , Expires: 02/09/2022 Start: 10-27-2021 Bacteria identified in Urine by Culture Urine Culture [facility] Work Phone: Start: 10-21-2021 End: 12-21-2021 C reactive protein [Mass/volume] in Serum or Plasma C-REACTIVE PROTEIN (CRP) Lab Routine Status post revision of total replacement of left knee Expected: 10/21/2021, Expires: 12/21/2021 [facility] Work Phone: Comment on above: Expected: 10/21/2021 , Expires: 12/21/2021 Start: 10-21-2021 End: 12-21-2021 Erythrocyte sedimentation rate SED RATE WESTERGREN Lab Routine Status post revision of total replacement of left knee Expected: 10/21/2021, Expires: 12/21/2021 [facility] Work Phone: Comment on above: Expected: 10/21/2021 , Expires: 12/21/2021 Start: 07-17-2021 COVID-19 VACCINE (4 - Booster for Pfizer series) COVID-19 VACCINE (4 - Booster for Pfizer series) [facility] Start: 06-05-2021 ADVANCE DIRECTIVE DISCUSSION ADVANCE DIRECTIVE DISCUSSION [facility] Start: 06-14-2020 Hepatitis B surface antibody level LDL CHOLESTEROL [facility] Start: 04-11-2020 Pneumococcal Vaccine : 50+ (2 of 2 - PCV) Pneumococcal Vaccine: 50+ (2 of 2 - PCV) [facility] Start: 04-11-2020 Pneumococcal Vaccine : 65+ (2 - PCV) Pneumococcal Vaccine: 65+ (2 - PCV) [facility] Start: 04-11-2020 Pneumococcal Vaccine : 65+ (2 of 2 - PCV) Pneumococcal Vaccine: 65+ (2 of 2 - PCV) [facility] Start: 04-11-2020 PNEUMOCOCCAL: 65+ (2 - PCV) PNEUMOCOCCAL: 65+ (2 - PCV) [facility] Start: 2018 RSV Vaccine (1 - 1-d ose 75+ series) RSV Vaccine (1 - 1-dose 75+ series) [facility] Start: 04-23-2017 End: 04-23-2017 Appointment Appointment [facility] Work Phone: Start: 08-03-2012 Medicare Annual Well ness Visit Medicare Annual Wellness Visit [facility] Start: 2003 RSV Vaccine (1 - 1-d ose 60+ series) RSV Vaccine (1 - 1-dose 60+ series) [facility] Start: 1993 SHINGRIX VACCINE (1 of 2) RUIZ GRIX VACCINE (1 of 2) [facility] Start: 1962 Urine microalbumin profile [facility] Start: 1943 Dental Oral Exam Dental Oral Exam Cl [facility] Start: 1943 Dental Perio Probing Dental Perio Pr obing [facility] Start: 1943 Dental Prophylaxis Dental Prophylaxi s [facility] Start: 1943 Dental X-Ray: Bitewings Dental X-Ray : Bitewings [facility] Start: 1943 Dental X-Ray: FMX/Benitez Dental X-Ray: FMX/Benitez [facility] Start: 1943 Periodontal Maintenance Periodontal Maintenance [facility] Bacteria identified in Blood by Culture Blood Culture [facility] Bacteria identified in Blood by Culture Blood Culture [facility] Bacteria identified in Urine by Culture Urine Culture 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 Copper deficiency Once per month for 12 Occurrences starting 11/26/2021 until 11/26/2022 [facility] Work Phone: Comment on above: Once per month for 1 2 Occurrences starting 11/26/2021 until 11/26/2022 End: 03-01-2023 ECG COMPLETE ECG COMPLETE ECG Routine Hyperlipidemia, mixed S/P AVR Complete heart block (HCC) History of endocarditis Memory deficit Stage 3 chronic kidney disease, unspecified whether stage 3a or 3b CKD (HCC) 1 Occurrences starting 03/01/2022 until 03/01/2023 [facility] Work Phone: Comment on above: 1 Occurrences starti ng 03/01/2022 until 03/01/2023 End: 03-01-2023 Echocardiography ECHO Cardiology Routine Hyperlipidemia, mixed S/P AVR Complete heart block (HCC) History of endocarditis Memory deficit Stage 3 chronic kidney disease, unspecified whether stage 3a or 3b CKD (HCC) 1 Occurrences starting 03/01/2022 until 03/01/2023 [facility] Work Phone: Comment on above: 1 Occurrences starti ng 03/01/2022 until 03/01/2023 Hemoglobin.gastroint estina l.lower [Presence] in Stool by Immunoassay FECAL OCCULT BLOOD TEST Lab Routine Other fatigue Dark stools History of GI bleed Ordered: 10/27/2021 [facility] Work Phone: Comment on above: Ordered: 10/27/2021 Patient Education [facility] Work Phone: Patient referral [facility] Work Phone: End: 12-02-2023 XR KNEE GENERAL 4V AP BOTH/PA BOTH/LAT/MERC LEFT XR KNEE GENERAL 4V AP BOTH/PA BOTH/LAT/MERC LEFT Radiology Routine Status post revision of total replacement of left knee 1 Occurrences starting 11/02/2022 until 12/02/2023 [facility] Work Phone: Comment on above: 1 Occurrences starti ng 11/02/2022 until 12/02/2023 [facility]izations Immunization Date Immunization Notes Care Provider [facility] 04-12-2022 Influenza, high dose seasonal Dr. Ca Silva MD [facility] 04-12-2022 influenza, high dose seasonal, preservative-free Dr. Clau Baca Work Phone: [facility] 04-12-2022 influenza, high-dose , quadrivalent vaccine (FLUZONE HIGH DOSE QUADRIVALENT) Injection Ws Work Phone: [facility] 04-12-2022 influenza virus vacc ine, unspecified formulation Xr Twin [facility] 01-12-2022 Covid (Pfizer) Dr. Clau Dejesus nta Work Phone: [facility] 01-12-2022 COVID-19 vaccine, ag e 12+ yr (PFIZER-BIONTECH - CAMACHO TOP) Eryn Elliott APRN.INDUSTRIAL WASTE TREATMENT TECHNICIAN Work Phone: [facility] Work Phone: 03-16-2021 Covid (Pfizer) Dr. Clau hoffman Work Phone: [facility] 03-05-2021 influenza, seasonal, injectable Ulises Fischer MD Work Phone: [facility] Work Phone: 08-27-2020 COVID-19 vaccine, ag e 12+ yr (PFIZER-BIONTECH - PURPLE TOP) Ulises Fischer MD Work Phone: [facility] Work Phone: 08-06-2020 COVID-19 vaccine, ag e 12+ yr ([place] - PURPLE TOP) Ulises Fischer MD Work Phone: [facility] Work Phone: 03-03-2020 influenza, high-dose , quadrivalent vaccine (FLUZONE HIGH DOSE QUADRIVALENT) Ulises Fischer MD Work Phone: [facility] 04-11-2019 pneumococcal polysaccharide vaccine, 23 valent Ulises Fischer MD Work Phone: [facility] 03-04-2019 influenza, high dose seasonal, preservative-free Ulises Fischer MD Work Phone: [facility] 06-14-2017 influenza, injectabl e, quadrivalent, contains preservative Injection Wstr Work Phone: [facility] 01-02-2013 pneumococcal polysaccharide vaccine, 23 valent Injection Wstr Work Phone: [facility] Payers Date Payer Category Payer Self-pay [id number] 2022 Medicaid [id number] 2022 Medicaid [id number] 2012 Medicare MEDICARE MEDICAR E A AND B [id number] 2012-Present [phone] [address] [address] [place] [address] Medicare [id number] 2012 Medicare [id number] 2012 Private Health Insurance [employer]I [employer] [id number] 2012 Unknown [id number] 2012 Medicare [id number] 2012 Unknown [id number] 2009 Unknown [facility] [id number] 2009-Present [phone] [place] [address] [facility] [id number] 2009 Unknown [id number] Unknown [id number] Unknown [id number] Unknown [id number] Social History Date Type Detail Facility Assertion Tobacco smoking consumption unknown (finding) [facility] Work Phone: Start: 01-06-2020 End: 03-01-2022 Tobacco smoking status NHIS Never smoked tobacco [facility] Start: 01-06-2020 End: 03-01-2022 Tobacco use and exposure Smokeless tobacco non-user [facility] Start: 07-12-2021 End: 12-02-2024 Alcohol intake Ex-drinker (finding) [facility] Start: 12-23-2019 End: 03-31-2020 History SDOH Alcohol Frequency 1 [facility] Start: 03-31-2020 History SDOH Alcohol Std Drinks 98 [facility] Start: 12-23-2019 History SDOH Social Connections Phone 5 [facility] Start: 12-23-2019 History SDOH Social Connections Get Together 3 [facility] Start: 12-23-2019 End: 03-31-2020 History SDOH Social Connections Faith 2 [facility] Start: 12-23-2019 History SDOH Physical Activity DPW 0 [facility] Start: 12-23-2019 Education 14 [facility] Start: 1945 Sex Assigned At Female [facility] Start: 03-01-2020 End: 04-19-2022 Exposure to SARS-CoV-2 (event) Not sure [facility] Start: 10-27-2021 End: 09-12-2022 Tobacco smoking status NHIS Unknown if ever smoked [facility] Start: 03-01-[address] [facility] Start: 03-01-[address] [facility] Start: 03-28-2021 End: 01-10-2022 Exposure to SARS-CoV-2 (event) Unable to assess [facility] Start: 03-31-2020 End: 12-04-2023 History of Social function [facility] Start: 03-31-2020 End: 12-04-2023 Social connection and isolation panel [facility] Frequency of Communication with Friends and Family Not on file [facility] How often to you hav e a drink containing alcohol? Never [facility] Do you feel stress - tense, restless, nervous, or anxious, or unable to sleep at night because your mind is troubled all the time - these days [OSQ] Only a little [facility] (I/We) worried wheth er (my/our) food would run out before (I/we) got money to buy more. Never true [facility] In the past 12 month s, was there a time when you were not able to pay the mortgage or rent on time? No [facility] Start: 06-29-2019 Gender identity Identifies as female gender (finding) [facility] Start: 06-29-2019 Sexual orientation Heterosexual (finding) [facility] Medical Equipment Procedure Code Equipment Code Equipment Original Text Equipment Identifier Dates Cement Simplex P Bone Radiopaque Full Dose Sterile - [id number] Start: 11-09-2020 Cement Simplex P Bone Radiopaque Full Dose Sterile - [id number] Start: 11-09-2020 Cement Simplex P Bone Radiopaque Full Dose Sterile - [id number] Start: 11-09-2020 Cement Simplex P Tobramycin Bone Full Dose Radiopaque Preblend Sterile - [id number] Start: 02-15-2021 Cement Simplex P Tobramycin Bone Full Dose Radiopaque Preblend Sterile - [id number] Start: 02-15-2021 Cement Simplex P Tobramycin Bone Full Dose Radiopaque Preblend Sterile - [id number] Start: 02-15-2021 Cement Simplex P Tobramycin Bone Full Dose Radiopaque Preblend Sterile - [id number] Start: 02-15-2021 Cement Simplex P Tobramycin Bone Full Dose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 Acute renal failure superimp osed on stage 3a chronic kidney disease resolved Decreased oral intake resolv ed Hypokalemia resolved Melena resolved Acute hypokalemia acute Acute hyponatremia acute Confusion acute Weakness acute [facility] Work Phone: 1(277) 297-787503-20-2023 Progress [facility] August 22, 2022 10:55am Note Date/Time August 22, 2022 10: 55am [facility] Medical Records Department [address] [place] [address] Progress Note 08/22/22 1052 MR#: [id number] Acct: [id number] Name: EMILIAMAIA Edmar Rep #:[id number] : 1945 77 From: Ashley Andrade MD PCP: Dr. Clau Baca MD Status:ADM I N Location: [place] [address] Subjective Subjective Patient seen and examined. She [...] (Auto) 71.1 H, Lymph % (Auto)17.0 L, Kent % (Auto) 6.8, Eos % (Auto) 3.8, [...] awaiting placement Charges/Coding Visit Charges Inpatient E&M: 94773 Subs Hosp L2 08/22/22 1055 <Electronically signed by Ashley Andrade MD> Ashley Andrade MD Cosigner Signature (if applicable): CC: ~ Signed [facility] Work Phone: 1(450) 938-216303-19-[address] Andrade [facility] August 21, 2022 10:38am Note Date/Time August 21, 2022 10: 37am [facility] Medical Records Department [address] [place] [address] Progress Note 08/21/22 1033 MR#: [id number] Acct: [id number] Name: MAIA NIETO Rep #:[id number] : 1945 77 From: Ashley Andrade MD PCP: Dr. Clau Baca MD Status:ADM I N Location: [place] [address] Subjective Subjective Patient seen and examined. She [...] 71.4 H, Lymph % (Auto) 17.0 L, Kent % (Auto) 6.6, Eos % (Auto) 3.0, [...] awaiting placement Charges/Coding Visit Charges Inpatient E&M: 23791 Subs Hosp L2 08/21/22 1038 <Electronically signed by Ashley Andrade MD> Ashley Andrade MD Cosigner Signature (if applicable): CC: ~ Signed [facility] Work Phone: 1(931) 510-618603-18-[address] Andrade [facility] August 20, 2022 4:06pm Note Date/Time August 20, 2022 1:[address] [facility] Medical Records Department [address] [place] [address] Progress Note 08/20/22 1335 MR#: [id number] Acct: [id number] Name: MAIA NIETO Rep #:[id number] : 1945 77 From: Ashley Andrade MD PCP: Dr. Clau Baca MD Status:ADM I N Location: [place] [address] Subjective Subjective Patient seen and examined. She [...] % (Auto) 65.9, Lymph % (Auto) 19.6, Kent % (Auto) 9.4, Eos % (Auto) 3.1, [...] for UTI on outpatient bassis. Was on [id number] hourly. To et last dose today * [...] prophylaxis: lovenox Charges/Coding Visit Charges Inpatient E&M: 09880 Subs Hosp L2 08/20/22 1606 <Electronically signed by Ashley Andrade MD> Ashley Andrade MD Cosigner Signature (if applicable): CC: ~ Signed [facility] Work Phone: 1([phone]) 755-108903-18-2023 History and physical note Author Dr. Kimball [facility] August 19, 2022 11:52pm Note Date/Time August 19, 2022 3:2 7pm [facility] Medical Records Department [address] [place] [address] H&P Exam - Hospitalist 08/19/22 1514 MR#: [id number] Acct: [id number] Name: MAIA NIETO Rep #:[id number] : 1945 77 From: Prabhakar greenberg MD PCP: Dr. Clau Baca MD Status:ADM I N Location: [place] [address] HPI - General General Date of Admission: [...] it was a week ago at 2.19. [facility] Medical History Anxiety CAD (coronary artery [...] 74.5 H, Lymph % (Auto) 12.0 L, Kent % (Auto) 10.7 H, Eos % (Auto) [...] Sl. Cloudy, Urine pH 6.0, Ur Specific Harrell 1.010, Urine Protein Negative, Urine Glucose (UA) [...] 11:36 EDT Reading Location ID and State: [address] [place] [address] , Service support , Shoulder X-Ray 08/19/22 10:24 IMPRESSION: Severe DJD of the left shoulder. Electronically Signed: Garth Everett MD at 11:47 EDT Reading Location ID and State: [address] [place] [address] , Service support , Chest X-Ray 08/19/22 11:20 IMPRESSION: Degenerative changes, as described above. No demonstrated acute cardiopulmonary process. Electronically Signed: Garth Everett MD at 11:46 EDT Reading Location ID and State: [address] [place] [address] , Service support , Assessment & Plan [...] DVT: SCDs Charges/Coding Visit Charges Inpatient E&M: 94887 Init Hosp L3 08/19/22 1527 <Electronically signed by Prabhakar Kmiball MD> Cosigner Signature (if applicable): CC: Dr. Clau Baca MD; Dr. Prabhakar Kimball MD~ Signed ADDENDUM by Dr. Prabhakar Kimball MD on 08/19/22 at 2352 Addendum I had a 25 minute advanced care planning discussion about prognosis and progression of dementia and her code status with her son and daughter. Procedures Hospitalists Procedures: 59495 Advncd Care Plan 30 Min 08/19/22 2352<Electronically signed by Prabhakar Kimball MD> Cosigner Signature (if applicable): cc: Dr. Clau Baca MD; Dr. Prabhakar Kimball MD ~* Signed [facility] Work Phone: [phone]) [phone] Albright [facility] August 19, 2022 9:37pm Note Date/Time August 19, 2022 10: 27am [facility] Medical Records Department [address] [place] [address] Emergency Department Summary 08/19/22 MR#: [id number] Acct: [id number] Name: MAIA NIETO Rep #:[id number] : 1945 77 From: Ramona Albright MD PCP: Dr. Clau Baca MD Status:ADM I N Location: [place] [address] HPI History of Present Illness Chief Complaint: [...] She is complaining of whole body pain. [facility] Medical History Anxiety CAD (coronary artery disease) [...] Medical decision making narrative: Patient placed on classroom monitor. Head CT obtained given the patient's [...] 74.5 H Lymph % (Auto) 12.0 L Kent % (Auto) 10.7 H Eos % (Auto) [...] Color Urine Clarity Urine pH Ur Specific Harrell Urine Protein Urine Glucose (UA) Urine Ketones Urine Occult Blood Urine Nitrite Urine Bilirubin Urine Urobilinogen Ur Leukocyte Esterase Urine RBC Urine WBC Ur Squamous Epith Cells Urine Bacteria Urine Mucus 08/19/22 11:00 WBC RBC Hgb Hct MCV MCH MCHC RDW Std Deviation RDW Coeff of Erma Plt Count MPV Immature Gran % (Auto) Neut % (Auto) Lymph % (Auto) Kent % (Auto) Eos % (Auto) Baso % (Auto) Absolute Neuts (auto) Absolute Lymphs (auto) Nucleated RBC % Sodium Potassium Chloride Carbon Dioxide Anion Gap BUN Creatinine Estim Creat Clear Calc Est GFR (MDRD) Af Amer Est GFR (MDRD) Non-Af BUN/Creatinine Ratio Glucose Lactic Acid Calcium Urine Color Yellow Urine Clarity Sl. Cloudy Urine pH 6.0 Ur Specific Harrell 1.010 Urine Protein Negative Urine Glucose (UA) [...] Garth Everett MD at 11:46 EDT , Differential Diagnosis Differential Diagnosis: Sepsis Why [...] Provider] - Disposition Disposition: Acute Care Hospital [facility] What to do if you have Problems For any increased pain, shortness of breath, bleeding, nausea or vomiting, chestpain, or any unexpected problems, contact your Primary Care Provider. Call [facility] ([phone]) or report to the closest Emergency Room. Call 911 if necessary. 08/19/222136 <Electronically signed by Ramona Albright MD> Cosigner Signature (if applicable): CC: Dr. Clau Baca MD ~ Signed [facility] Work Phone: [phone]) 308-261003-17-2023 Evaluation note* Diagnosis Onset Date Resolution Status Debility acute Generalized weakness acute Acute hypotension resolved Acute prerenal azotemia reso lved Acute renal failure superimp osed on stage 3a chronic kidney disease resolved Decreased oral intake resolv ed Hypokalemia resolved Melena resolved Acute hypokalemia acute Acute hyponatremia acute Confusion acute Weakness acute [facility] Work Phone: [phone]) 129-166403-10-[address] Yun [facility] August 12, 2022 9:11pm Note Date/Time August 12, 2022 6:[address] [facility] Medical Records Department [address] [place] [address] Emergency Department Summary 08/12/22 MR#: [id number] Acct: [id number] Name: MAIA NIETO Rep #:[id number] : 1945 77 From: Renzo Yun [...] Olvin was the president but she knows Biden is. The family states that is pretty [...] recent illness. The urine frequency is chronic PFSH PFS Medical History Anxiety CAD (coronary artery disease) [...] to person place time situation and president [facility]. Const Vital Signs: 08/12/22 17:50 08/12/22 18:05 [...] 88.3 H Lymph % (Auto) 6.6 L Kent % (Auto) 4.4 Eos % (Auto) 0.1 [...] Clarity Clear Urine pH 6.0 Ur Specific Harrell 1.015 Urine Protein 15 H Urine Glucose [...] 18:49 EST Reading Location ID and State: [address] [place] [address] Tel [phone], Service support , Chest X-Ray 08/12/22 18:15 IMPRESSION: No acute cardiopulmonary disease or major interval change. Electronically Signed: John Aranog DO at 18:40 EST Reading Location ID and State: [address] [place] [address] Tel [phone], Service support , Discharge Plan Triage Chief [...] your Primary Care Provider. Call [facility] ([phone]) or report to the closest Emergency Room. Call 911 if necessary. 03/10/23 2111 <Electronically signed by Renzo Yun MD> Cosigner Signature (if applicable): CC: Dr. Clau Baca MD ~ Signed [facility] Work Phone: [phone] Evaluation note* Diagnosis Onset Date Resolution Status Debility acute Generalized weakness acute Acute hypotension resolved Acute prerenal azotemia reso lved Acute renal failure superimp osed on stage 3a chronic kidney disease resolved Decreased oral intake resolv ed Hypokalemia resolved Melena resolved [facility] Work Phone: 1(215) 231-678203-07-2023 Miscellaneous Notes* Telephone Encounter - Marcela Hidalgo [...] you. Marcela Hidalgo LPN [facility] Nurse Note* Vijaya Huntley LPN - 07/12/2022 [...] noted. Vijaya Huntley LPN [facility] Nurse Note* Huey Mariscal RN - 07/01/2022 9:07 AM EST Unable to get IV access 4 attempts documented [facility]23 Miscellaneous Notes* Telephone Encounter - Lata Marina LPN - 06/14/2022 12:39 PM EST Called daughter, she will bring pt back in for additional labs. Lata Marina LPN * Telephone Encounter - Raman Caruso DO - 06/14/2022 12:31 PM EST She had CBC, but iron and copper not done. Can she come back for those? Raman Caruso DO [facility] Nurse Note* Vijaya Huntley LPN - 06/14/2022 [...] reactionsnoted. Vijaya Huntley LPN [facility]23 Miscellaneous Notes* Telephone Encounter - Sheeba Pang Ma - 06/09/2022 3:51 PM EST Left detailed message on [employer] VM. * Telephone Encounter - Eryn Elliott APRN.CNP - 06/09/2022 3:06 PM EST Noted and ok for previous delay. Eryn Elliott APRN.ARBEN * Telephone Encounter - April Saenz RN - 06/09/2022 8:45 AM EST Humaira SW from [facility] calls and is asking for a verbal order to delay care for SW. Humaira was unable to see patient due to holidays previously. Please review and advise, April Saenz RN documented [facility]23 Miscellaneous Notes* Telephone Encounter - Stefany Williamson RN - 06/07/2022 2:21 PM EST Yanely OT with [facility] calls to let provider know that patient was seen for 1 wk 1 only. Patient feelslike she is doing well and has enough family support that she doesn't need any further OT services at this time. Stefany Williamson RN documented [facility]23 Miscellaneous Notes* Telephone Encounter - Stefany Williamson RN - 06/07/2022 9:35 AM EST Malorie calls back and message reviewed. Malorie to have patient call provider's office to schedule post follow up hospital visit. Stefany Williamson RN * Telephone Encounter - Gunjan Dey RN - 06/07/2022 9:17 AM EST Called and left a detailed voicemail notifying Malorie [facility] of providers message. Hospital phonenumber was left in case she had any questions. Gunjan Dey RN * Telephone Encounter - Eryn Elliott APRN.CNP - 06/03/2022 3:18 PM EST Patient really needs a post hospital visit to make sure all lab work that is drawn is appropriate. Is she able to have a visit in the near future? Thank you Eryn Elliott APRN.ARBEN * Telephone Encounter - Gunjan Dey RN - 06/03/2022 2:47 PM EST Malorie [facility] nurse called in and reports the Pt [...] UTI symptoms and bleeding. documented in this encounterTus[facility]12-29-2022 Evaluation note* Diagnosis Onset Date Resolution Status Acute hypotension acute Acute prerenal azotemia acut e Acute renal failure superimp osed on stage 3a chronic kidney disease acute Debility acute Decreased oral intake acute Generalized weakness acute Hypokalemia acute Melena acute [facility] Work Phone: 1(180) 170-417312-28-2022 Miscellaneous Notes* Telephone Encounter - Liz Kern LPN - 06/01/2022 1:44 PM EST Trang aware of same. * Telephone Encounter - Pat Priest APRN.CNP - 06/01/2022 1:15 PM EST Yes, we will follow. Please let them know. Thanks! * Telephone Encounter - Juno Lewis RN - 06/01/2022 12:56 PM EST Trang- [facility]- reports they received a referral from [facility] for [place], PT, OT, SW. Reports patient will be discharged tomorrow. HH would like to do start of care on 06-03. Asking if pcp agreeable to follow. Please phone Trang with verbal. documented in this encounterTuscarawas Hospital12-27-2022 Miscellaneous Notes* Telephone Encounter - Shyanne Elliott APRN.CNP - 05/31/2022 2:08 PM EST Patient admitted to [facility] yesterday, 05/30 Shyanne Elliott APRN.CNP * Telephone Encounter - April Saenz RN - 05/30/2022 9:25 AM EST Patient's Daughter Cristina calls to report that patient is very pale and weak. Patient has a history of low hemoglobin and daughter is worried that hemoglobin is low. Cristina asking if order can be placed for patient to get hemoglobin checked? Advised daughter that if patient is that weak and pale, patient needs to be seen in ER. Cristina voiced understanding. Cristina states that she will wait and see how it goes today and give office a call back tomorrow. Please review and advise, April Saenz RN documented in this encounterTuscarawas Hospital12-26-2022 Evaluation note* Diagnosis Onset Date Resolution Status Acute hypotension acute Acute prerenal azotemia acut e Acute renal failure superimp osed on stage 3a chronic kidney disease acute [facility] Work Phone: 1(388) 676-116412-13-2022 History of Present illness Narrative* Vijaya Huntley [...] noted. Vijaya Huntley LPN documented in this encounterTuscarawas Hospital12-08-2022 Miscellaneous Notes* Telephone Encounter - Eryn Elliott APRN.ARBEN - 05/12/2022 3:15 PM EST Blood pressure currently controlled continue current medications and follow up as scheduled Thank you Eryn Elliott APRN.ARBEN * Telephone Encounter - Phyllis Guo LPN [...] any further instructions after review by Dr health care consultant. Phyllis Guo LPN documented in this encounterTuscarawas Hospital12-08-2022 History of Present illness Narrative* Phyllis Guo [...] any further instructions after review by Dr health care consultant. Phyllis Guo LPN documented in this encounterTuscarawas Hospital11-18-2022 Miscellaneous Notes* Telephone Encounter - Noelle Deluca RN - 04/22/2022 11:17 AM EST Patient's daughter Cristina notified of provider's response below. Noelle Deluca RN COPIED: Clau Baca MD 04/20/2022 8:07 PM EST The labs are mostly stable, not much changed from before , def there is some inflammation..iron is normal. Regards, Clau Baca MD documented in this encounterTuscarawas Hospital11-15-2022 Nurse Note* Vijaya Huntley LPN - 04/19/2022 [...] reactionsnoted. Vijaya Huntley LPN documented in this encounterTuscarawas Hospital11-01-2022 History of Present illness Narrative* Tree Chaparro [...] name and . Discussed care with daughter Mtaias steward name is Carmelo Leavitt RN your Banquet Director from Clau Baca [facility]. I am reaching out today because I [...] 05, 2022 2:09 PM documented in this encounterTuscarawas Hospital10-18-2022 Nurse Note* Vijaya Huntley LPN - 03/22/2022 [...] reactionsnoted. Vijaya Huntley LPN documented in this encounterTuscarawas Hospital10-11-2022 Miscellaneous Notes* Telephone Encounter - Thalia Estrada LPN - 03/15/2022 8:20 AM EDT Spoke with Reyna and she will bring in Coty for blood work today. documented in this encounterTuscarawas Hospital10-11-2022 Miscellaneous Notes* Telephone Encounter - Thalia Estrada [...] you. Thalia Estrada LPN documented in this encounterTuscarawas Hospital09-27-2022 History of Present illness Narrative* Avtar Hearn, DO - 03/01/2022 1:15 PM EDT [facility] Heart and Vascular [place] [facility] Department of Cardiovascular Medicine SECTION [...] [facility]. She apparently had a small burden of [...] Cardiac pacemaker in situ Coronary atherosclerosis of manzan[place] coronary artery Depression Gastroesophageal reflux disease GERD [...] LITHOTRIPSY XTRCORP SHOCK WAVE MAMMOGRAM BILATERAL june 2010 OTHER 2018 lap transgatric endoscopy with clipping at [facility] PAST SURGICAL HISTORY OF bovine aortic [...] 128/68 Pulse 67 Ht 165.1 cm (5' 5) Wt 59.9 kg (132 lb 1.6 oz) [...] JVD, carotids well felt, no bruits. CARDIAC: Colona palpable in the 5th intercostal space mid [...] DO, RIGO, FCCP, FACOI CC: [facility]aca [facility] [place] [address] documented in this encounterTuscarawas Hospital09-20-2022 Nurse Note* Vijaya Huntley LPN - 02/22/2022 2:06 PM EDT Patient presents [...] reactionsnoted. Vijaya Huntley LPN documented in this encounterTuscarawas Hospital09-19-2022 Miscellaneous Notes* Telephone Encounter - Marcela Hidalgo [...] you. Marcela Hidalgo LPN documented in this encounterTuscarawas Hospital08-31-2022 Miscellaneous Notes* Telephone Encounter - Marcela Hidalgo [...] you. Marcela Hidalgo LPN documented in this encounterTuscarawas Hospital08-23-2022 History of Present illness Narrative* Vijaya Huntley [...] reactionsnoted. Vijaya Huntley LPN documented in this encounterTuscarawas Hospital08-10-2022 History of Present illness Narrative* Phyllis Guo LPN - 01/12/2022 1:48 PM EDT Patient presents for COVID booster. Denies any problems at this time. Tolerated injection well. Phyllis Guo LPN documented in this encounterTuscarawas Hospital08-10-2022 Miscellaneous Notes* Telephone Encounter - Sheeba Pang [...] you Eryn Elliott APRN.CNP documented in this encounterTuscarawas Hospital08-08-2022 Miscellaneous Notes* Telephone Encounter - Anabela Angel [...] you Eryn Elliott APRN.CNP documented in this encounterTuscarawas Hospital08-08-2022 History of Present illness Narrative* Eryn Elliott [...] Dr. Fischer to er-establish with cardiology in [place] but has not done so yet. GERD: [...] Cardiac pacemaker in situ Coronary atherosclerosis of manzanita coronary artery Depression Gastroesophageal reflux disease GERD [...] 20102018 lap transgatric endoscopy with clipping at [facility] PAST SURGICAL HISTORY OF bovine aortic [...] METABOLIC PNL 3. 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- ICD9: 414.01, ICD10: [...] plan. 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 Insight Monitoring Questionnaire, reminder provided. Contact Made with Patient: Yes Patient identified by name and . Discussed care with daughter Matias steward name is Carmelo Leavitt RN your Banquet Director from Clau Baca [facility]. I am reaching out today because I [...] 05, 2022 4:14 PM documented in this encounterTuscarawas Hospital07-26-2022 Miscellaneous Notes* Telephone Encounter - Vijaya Hutnley LPN - 12/28/2021 1:41 PM EDT Spoke [...] regimen. Raman Caruso DO documented in this encounterTuscarawas Hospital07-26-2022 Nurse Note* Lata Marina LPN - 12/28/2021 12:01 PM EDT Pt here for injection of B12. Given IM in right delt. Pt tolerated well. For all other information regarding today, see today's OV note with Dr Caruso. Lata Marina LPN documented in this encounterTuscarawas Hospital07-26-2022 History of Present illness Narrative* Raman Caruso [...] and hypotensive and therefore was admitted to [facility]. Hemoglobin was 6.9 g/dL. She [...] the aortic valve. Patient was transferred to [facility] on 12/03/2018. She was continued on antibiotics (ceftriaxone). Episodes of hypotension and dizziness continued in hemoglobin dropped to 6.1 and she was given 2 more units of RBCs. A CT angiogram showed no active bleeding. Patient was then transferred to [facility] where she ultimately underwent CT angiogram that [...] at that time. Patient was readmitted to [facility] for planned redo aortic valve replacement and [...] a course of IV antibiotic therapy at [facility]. She is scheduled to have an coding compliance specialist taken out and the knee replaced in midSeptember. Presents for ongoing hematologic management. Interim history: [...] edema. SKIN: No jaundice or rash. NEUROLOGIC: database administration project manager II-XII are grossly intact. No focal motor [...] k/uL 0.92 (L) 1.19 1.11 1.45 1.13 Kent% % 8.5 7.9 5.0 6.9 6.6 Abs Kent <0.87 k/uL 0.39 0.40 0.40 0.41 0.34 [...] care. Raman Caruso DO documented in this encounterTuscarawas Hospital07-08-2022 History of Present illness Narrative* Eryn Elliott, BOAT RENTAL CLERK.INDUSTRIAL WASTE TREATMENT TECHNICIAN - 12/10/2021 8:32 AM EDT CC: Patient [...] Cardiac pacemaker in situ Coronary atherosclerosis of manzanita coronary artery Depression Gastroesophageal reflux disease GERD [...] 20102018 lap transgatric endoscopy with clipping at [facility] PAST SURGICAL HISTORY OF bovine aortic valve [...] plan. Eryn Elliott APRN.CNP documented in this encounterTuscarawas Hospital06-28-2022 History of Present illness Narrative* Tree Chaparro [...] steward name is Carmelo Leavitt RN your Banquet Director from Clau Baca [facility]. I am reaching out today because I [...] 30, 2021 2:13 PM documented in this encounterTuscarawas Hospital06-21-2022 History of Present illness Narrative* Tree Chaparro RN - 11/23/2021 12:45 PM EDT Rosina CDM Engagement Provider Action/FYI: Call to Pt to verify CKD status or needs, unable to leave a message. Contact Made with Patient: No, second attempt, left message. Matias Nieto. This is Carmelo Leavitt RN your Banquet Director [facility]. I am calling to check in with you concerning the MyChart questionnaire you have been receiving from me. I will call you again next week and am looking forward to speaking with you. (Banquet Director enters next week's date in next patient outreach) Carmelo Leavitt RN November 23, 2021 12:45 PM * Tree Chaparro RN - 11/22/2021 1:18 PM EDT [facility] CDM Engagement Provider Action/FYI: Call to Pt unable to leave a message mail box is full, to verify CKD or other symptoms. Contact Made with Patient: No, first attempt, left message. Matias Nieto. This is Carmelo Leavitt RN your Banquet Director [facility]. I am calling to check in with you concerning the MyChart questionnaire you have been receiving from me. I will call you again tomorrow and am looking forward to speaking with you. 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 Urge Incontinence Hyperactivity of Bladder Anxiety Gerd (Gastroesophageal Reflux Disease) Overactive Bladder Coronary Artery Disease Involving Galena Coronary Artery of Gal[place] Heart Without Angina Pectoris Restless Legs Syndrome [...] 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, Initial Encounter ([facility]) Elective Surgery Status post op: [...] by: Anatoly Brown DO documented in this encounterTuscarawas Hospital06-09-2022 Miscellaneous Notes* [facility] - Janie Thomason, RT(R) - 11/11/2021 3:10 PM EDT Radiology Service [...] 11, 2021 2:55 PM documented in this encounterTuscarawas Hospital06-06-2022 History of Present illness Narrative* Tree Chaparro RN - 11/08/2021 3:31 PM EDT PRIMARY CARE COORDINATION QUICK NOTE Provider Action/FYI Spk with daughter Cristina she noted Pt was seen 10/27/21 & 10/30/21 [facility] ED for suspected GIB, Pt had weakness [...] 08, 2021 3:31 PM documented in this encounterTuscarawas Hospital06-01-2022 History of Present illness Narrative* Tree Chaparro RN - 11/03/2021 10:34 AM EDT [facility] CDM Engagement Provider Action/FYI: Call to Pt left a message to follow up on 10/30/21 [facility] ED visit for GIB/ Weakness and needs Pt has appt 11/19/21 with Eryn Elliott CNP Contact Made with Patient: No, second attempt, left message. Matias Nieto. This is Carmelo Leavitt RN your Banquet Director [facility] the [facility]. I am calling to check in with you concerning the MyChart questionnaire you have been receiving from me. I will call you again next week and am looking forward to speaking with you. (Banquet Director enters next week's date in next patient outreach) Carmelo Leavitt RN November 03, 2021 10:34 AM * Tree Chaparro RN - 11/02/2021 3:56 PM EDT [facility] CDM Engagement Provider Action/FYI: Call to Pt left a message to follow up on 10/30/21 [facility] ED visit for GIB/ Weakness Contact Made with Patient: No, first attempt, left message. Matias Nieto. This is Carmelo Leavitt RN your Banquet Director [facility]. I am calling to check in with you concerning the MyChart questionnaire you have been receiving from me. I will call you again tomorrow and am looking forward to speaking with you. (Banquet Director enters next day in next patient outreach) Carmelo Leavitt RN November 02, 2021 3:56 PM documented in this encounterTuscarawas Hospital05-31-2022 Nurse Note* Vijaya Huntley, DULCE - 11/02/2021 2:24 PM EDT [...] noted. Vijaya Huntley LPN documented in this encounterTuscarawas Hospital05-27-2022 Miscellaneous Notes* Telephone Encounter - Sheeba Pang [...] you Eryn Elliott APRN.CNP documented in this encounterTuscarawas Hospital05-27-2022 Miscellaneous Notes* Telephone Encounter - Eryn Elliott [...] you Eryn Elliott APRN.CNP documented in this encounterTuscarawas Hospital05-26-2022 Miscellaneous Notes* Telephone Encounter - Eryn Elliott [...] go to ER. Thank you Eryn Elliott APRN.ARBEN * Telephone [...] advise, April Saenz RN documented in this encounterTuscarawas Hospital05-19-2022 Miscellaneous Notes* Telephone Encounter - Sheeba Pang Ma - 10/21/2021 3:52 PM EDT Tried calling mobile number, [employer] full. [email or web address] message sent. * Telephone Encounter - Eryn Elliott APRN.CNP - 10/21/2021 3:16 PM EDT Please let patient know that Dr. Brown wants her to have further lab studies completed and is going to get her in for an earlier appointment. Lab work is placed for her to get done MAGALI. Thank you Eryn Elliott APRN.ARBEN documented in this encounterTuscarawas Hospital05-19-2022 History of Present illness Narrative* Jaky Craig RT(R) - 10/21/2021 10:20 AM EDT Radiology Service Progress Note PATIENT NAME: Maia Neito DATE OF SERVICE: October 21, 2021 TIME: [...] 21, 2021 10:20 AM documented in this encounterTuscarawas Hospital05-02-2022 Miscellaneous Notes* Telephone Encounter - Malorie Batista Pss - 10/04/2021 8:31 AM EDT Spoke with daughter and rescheduled. * Telephone Encounter - Chely Jacobs - 10/04/2021 8:21 AM EDT Patient's daughter Reyna called to cancel today's appointments for lab and injection can be reachedat [phone] Chely Galdamez Pss documented in this encounterTuscarawas Hospital04-28-2022 History of Present illness Narrative* Tree Chaparro RN - 09/30/2021 4:30 PM EDT ROSINA REYM ESCALATION Provider Action/FYI: Routed updates to Dr. [...] to get a next day Appt with PCP/INDUSTRIAL WASTE TREATMENT TECHNICIAN for evaluation of knee. Message received via: Second[employer] - Yes contact made with patient ACTION TAKEN: Based on reproduction specialist, the following disposition is advised: SYMPTOMS PRESENT NOT SEVERE: Visit (Telehealth, Virtual or In Office) with PCP within 48 hours - Routed to [facility]ITORING PSS pool [[id number]] - End outreach / Phone Call Carmelo Leavitt RN September 30, 2021 4:31 PM * Tree Chaparro RN - 09/30/2021 1:38 PM EDT INSIGHT CDM ESCALATION Provider Action/FYI: [employer] Questionnaire Triggered call Pt's daughter reported on [...] need her right leg evaluated by PCP/ INDUSTRIAL WASTE TREATMENT TECHNICIAN today and possibly an X-ray may be required? Cristina noted she has not taken a lunch break, will check on her mother, evaluate the Right knee, askthose questions to clarify the Knee status and call PCP's office for Appt / Evaluation. Message received via: InSight - Yes contact made with patient ACTION TAKEN: Based on reproduction specialist, the following disposition is advised: SYMPTOMS PRESENT NOT SEVERE: Visit (Telehealth, Virtual or In Office) with PCP within 48 hours - Routed to [facility] [[id number]] - End outreach / Phone Call Carmelo Leavitt RN September 30, 2021 1:38 PM documented in this encounterTuscarawas Hospital04-11-2022 History of Present illness Narrative* Tree Chaparro RN - 09/13/2021 4:37 PM EDT [facility]ight CDM Engagement Provider Action/FYI: Left a message to verify CKD or other symptom status, and needs. Provided location of Insight Monitoring questionnaire. Contact Made with Patient: No, first attempt, left message. Matias Nieto. This is Carmelo Leavitt RN your Banquet Director [facility] the [facility]. I am calling to check in with you concerning the MyChart questionnaire you have been receiving from me. I will call you again tomorrow and am looking forward to speaking with you. (Banquet Director enters next day in next patient outreach) Carmelo Leavitt RN September 13, 2021 4:37 PM documented in this encounterTuscarawas Hospital04-04-2022 Miscellaneous Notes* Telephone Encounter - Marcela Hidalgo LPN - 09/06/2021 4:20 PM EDT Patient has [...] you. Marcela Hidalgo LPN documented in this encounterTuscarawas Hospital04-04-2022 Miscellaneous Notes* Telephone Encounter - Marcela Hidalgo [...] you. Marcela Hidalgo LPN documented in this encounterTuscarawas Hospital04-04-2022 Nurse Note* Vijaya Huntley LPN - 09/06/2021 10:15 AM EDT Patient presents [...] reactionsnoted. DULCE Sanches LPN documented in this encounterTuscarawas Hospital04-01-2022 History of Present illness Narrative* Tree Chaparro RN - 09/03/2021 3:45 PM EDT PRIMARY CARE COORDINATION QUICK NOTE Provider Action/FYI Chart Reviewed Patient identified by name and date . Carmelo Leavitt RN September 03, 2021 3:45 PM documented in this encounterTuscarawas Hospital03-21-2022 Miscellaneous Notes* Addendum Note - Tree Chaparro RN - 08/23/2021 2:55 PM EDT Addended by: CARMELO LEAVITT on: 08/23/2021 02:55 PM Modules accepted: Orders documented in this encounterTuscarawas Hospital03-21-2022 History of Present illness Narrative* Tree Chaparro RN - 08/23/2021 1:16 PM EDT [facility] CDM Enrollment Provider Action/FYI: Spk with daughter Reyna who noted Pt is in agreement with CKD/ Bronchitis CDM via smart phone. Denies falls, uses a walker, denies needs. Goal Tto ambulate well enough she power not have to use a walker. [facility] by: [facility] Zaheer Contact made with patient: Yes - Patient identified by name and . Discussed care with caregiver Matias this is Carmelo M Leavitt, RN and I am calling from Clau Baca MD office at the [facility]. I am a RN Banquet Director with our [employer] Chronic Disease Management program. [...] few questions once a week through your [employer] account. It will automatically show up for [...] goal align with programs offered at the [facility]? 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 I am excited to work together in managing your health! You will receive information on next steps through your [employer] account, and I will check back within a few weeks to ensure you have all that you need to use the program successfully. (Place name in care team and assign [employer] questionnaire) Most people know what to do to become healthier, yet struggle to put it into action on their own.Itcan be hard to maintain a healthy lifestyle, especially when life is so stressful. Can we connect you with a [facility] It Security Analyst to find a program that could help you meet your goals? 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 I am excited to work together in managing your health! You will receive information on next steps through your [employer] account, and I will check back within a few weeks to ensure you have all that you need to use the program successfully. (Place name in care team and assign [employer] questionnaire) Carmelo Leavitt RN August 23, 2021 1:16 PM documented in this encounterTuscarawas Hospital12-09-2021 History of Present illness Narrative* Farzana Foley [...] 13, 2021 8:32 AM documented in this encounterTuscarawas Hospital10-08-2021 History of Present illness Narrative* Sophia Do [...] 12, 2021 10:42 AM documented in this encounterTuscarawas Hospital06-07-2021 History of Past illness Narrative* Problem Noted [...] Normal Cath: mild non obsx CAD Cards: [facility] EKG: NSR w/ 1st degree Important/Relevant PMH/PSH: 73F from [facility] with GERD, depression, HTN, gastric bypass, PUD [...] lasix - Dispo: 73 yo female from [place], [place]. Daughter can help. SW following. PT/OT [...] issues 04/30/20192019 Overview: 73 yo female from [place]. Daughter can help. SW following. PT/OT [...] Surgical prep: Yes SIGNATURE: Myrna Car RN BOAT RENTAL CLERK.INDUSTRIAL WASTE TREATMENT TECHNICIAN DATE of SERVICE: 04/19/2019 TIME of SERVICE: [...] of this encounter (statuses as of 04/19/2022) [facility] History of Past illness Narrative* Problem Noted [...] Cath: mild non obsx CAD Cards: [facility] EKG: NSR w/ 1st degree Important/Relevant PMH/PSH: 73F from [facility] with GERD, depression, HTN, gastric bypass, PUD [...] lasix - Dispo: 73 yo female from [place]. Daughter can help. SW following. PT/OT [...] issues 04/30/20192019 Overview: 73 yo female from [place]. Daughter can help. SW following. PT/OT [...] [facility] CHECKLIST Surgeon: Dr. Forrest Riso Informed Consent Completed: pending STS Score: RISK [...] Surgical prep: Yes SIGNATURE: Myrna Car RN APRN.ARBEN DATE of SERVICE: 04/19/2019 TIME of SERVICE: [...] of this encounter (statuses as of 04/22/2022) [facility] History of Past illness Narrative* Problem Noted [...] w/ 1st degree Important/Relevant PMH/PSH: 73F from [facility] with GERD, depression, HTN, gastric bypass, PUD [...] lasix - Dispo: 73 yo female from [place]. Daughter can help. SW following. PT/OT [...] issues 04/30/20192019 Overview: 73 yo female from [place]. Daughter can help. SW following. PT/OT [...] Surgical prep: Yes SIGNATURE: Myrna Car RN BOAT RENTAL CLERK.INDUSTRIAL WASTE TREATMENT TECHNICIAN DATE of SERVICE: 04/19/2019 TIME of SERVICE: [...] of this encounter (statuses as of 05/12/2022) [facility] History of Past illness Narrative* Problem Noted [...] w/ 1st degree Important/Relevant PMH/PSH: 73F from [place] with GERD, depression, HTN, gastric bypass, [...] lasix - Dispo: 73 yo female from [place]. Daughter can help. SW following. PT/OT rec home PT/OT; [facility] for IV antibiotics. Face-to face [...] issues 04/30/20192019 Overview: 73 yo female from [place]. Daughter can help. SW following. PT/OT [...] Surgical prep: Yes SIGNATURE: Myrna Car RN BOAT RENTAL CLERK.INDUSTRIAL WASTE TREATMENT TECHNICIAN DATE of SERVICE: 04/19/2019 TIME of SERVICE: [...] of this encounter (statuses as of 05/12/2022) [facility] History of Past illness Narrative* Problem Noted [...] Normal Cath: mild non obsx CAD Cards: [facility] EKG: NSR w/ 1st degree Important/Relevant PMH/PSH: 73F from [facility] with GERD, depression, HTN, gastric bypass, PUD [...] lasix - Dispo: 73 yo female from [place]. Daughter can help. SW following. PT/OT [...] issues 04/30/20192019 Overview: 73 yo [place] Daughter can help. SW following. PT/OT [...] Surgical prep: Yes SIGNATURE: Myrna Car RN BOAT RENTAL CLERK.INDUSTRIAL WASTE TREATMENT TECHNICIAN DATE of SERVICE: 04/19/2019 TIME of SERVICE: [...] of this encounter (statuses as of 05/17/2022) [facility] History of Past illness Narrative* Problem Noted [...] Cath: mild non obsx CAD Cards: [facility] EKG: NSR w/ 1st degree Important/Relevant PMH/PSH: 73F from [facility] with GERD, depression, HTN, gastric bypass, PUD [...] lasix - Dispo: 73 yo female [place] Daughter can help. SW following. PT/OT [...] issues 04/30/20192019 Overview: 73 yo [place] Daughter can help. SW following. PT/OT [...] Surgical prep: Yes SIGNATURE: Myrna Car RN BOAT RENTAL CLERK.INDUSTRIAL WASTE TREATMENT TECHNICIAN DATE of SERVICE: 04/19/2019 TIME of SERVICE: [...] of this encounter (statuses as of 06/06/2022) [facility] History of Past illness Narrative* Problem Noted [...] Normal Cath: mild non obsx CAD Cards: [facility] EKG: NSR w/ 1st degree Important/Relevant PMH/PSH: 73F from [facility] with GERD, depression, HTN, gastric bypass, PUD [...] lasix - Dispo: 73 yo female [place] Daughter can help. SW following. PT/OT [...] issues 04/30/20192019 Overview: 73 yo [place] Daughter can help. SW following. PT/OT [...] Surgical prep: Yes SIGNATURE: Myrna Car RN BOAT RENTAL CLERK.ARBEN DATE of SERVICE: 04/19/2019 TIME of SERVICE: [...] of this encounter (statuses as of 06/07/2022) [facility] History of Past illness Narrative* Problem Noted [...] w/ 1st degree Important/Relevant PMH/PSH: 73F from [facility] with GERD, depression, HTN, gastric bypass, PUD [...] lasix - Dispo: 73 yo female [place] Daughter can help. SW following. PT/OT [...] issues 04/30/20192019 Overview: 73 yo [place] Daughter can help. SW following. PT/OT [...] Surgical prep: Yes SIGNATURE: Myrna Car RN BOAT RENTAL CLERK.INDUSTRIAL WASTE TREATMENT TECHNICIAN DATE of SERVICE: 04/19/2019 TIME of SERVICE: [...] of this encounter (statuses as of 06/09/2022) [facility] History of Past illness Narrative* Problem Noted [...] w/ 1st degree Important/Relevant PMH/PSH: 73F from [facility] with GERD, depression, HTN, gastric bypass, PUD [...] lasix - Dispo: 73 yo [place] Daughter can help. SW following. PT/OT [...] issues 04/30/20192019 Overview: 73 yo [place] Daughter can help. SW following. PT/OT [...] Surgical prep: Yes SIGNATURE: Myrna Car RN BOAT RENTAL CLERK.INDUSTRIAL WASTE TREATMENT TECHNICIAN DATE of SERVICE: 04/19/2019 TIME of SERVICE: [...] of this encounter (statuses as of 06/10/2022) [facility] History of Past illness Narrative* Problem Noted [...] Normal Cath: mild non obsx CAD Cards: [facility] EKG: NSR w/ 1st degree Important/Relevant PMH/PSH: 73F from [facility] with GERD, depression, HTN, gastric bypass, PUD [...] lasix - Dispo: 73 yo [place] Daughter can help. SW following. PT/OT [...] issues 04/30/20192019 Overview: 73 yo [place] Daughter can help. SW following. PT/OT [...] Surgical prep: Yes SIGNATURE: Myrna Car RN BOAT RENTAL CLERK.INDUSTRIAL WASTE TREATMENT TECHNICIAN DATE of SERVICE: 04/19/2019 TIME of SERVICE: [...] of this encounter (statuses as of 06/10/2022) [facility] History of Past illness Narrative* Problem Noted [...] Cath: mild non obsx CAD Cards: [facility] EKG: NSR w/ 1st degree Important/Relevant PMH/PSH: 73F from [facility] with GERD, depression, HTN, gastric bypass, PUD [...] lasix - Dispo: 73 yo female [place] Daughter can help. SW following. PT/OT [...] issues 04/30/20192019 Overview: 73 yo [place] Daughter can help. SW following. PT/OT [...] Surgical prep: Yes SIGNATURE: Myrna Car RN BOAT RENTAL CLERK.INDUSTRIAL WASTE TREATMENT TECHNICIAN DATE of SERVICE: 04/19/2019 TIME of SERVICE: [...] of this encounter (statuses as of 06/14/2022) [facility] History of Past illness Narrative* Problem Noted [...] Normal Cath: mild non obsx [facility]: [facility]R w/ 1st degree Important/Relevant PMH/PSH: 73F from [place] with GERD, depression, HTN, gastric bypass, [...] lasix - Dispo: 73 yo [place] Daughter can help. SW following. PT/OT [...] issues 04/30/20192019 Overview: 73 yo [place] Daughter can help. SW following. PT/OT [...] Surgical prep: Yes SIGNATURE: Myrna Car RN BOAT RENTAL CLERK.INDUSTRIAL WASTE TREATMENT TECHNICIAN DATE of SERVICE: 04/19/2019 TIME of SERVICE: [...] of this encounter (statuses as of 06/14/2022) [facility] History of Past illness Narrative* Problem Noted [...] Normal Cath: mild non obsx CAD Cards: [facility] EKG: NSR w/ 1st degree Important/Relevant PMH/PSH: 73F from [facility] with GERD, depression, HTN, gastric bypass, PUD [...] lasix - Dispo: 73 yo female [place] Daughter can help. SW following. PT/OT [...] issues 04/30/20192019 Overview: 73 yo [place] Daughter can help. SW following. PT/OT [...] Surgical prep: Yes SIGNATURE: Myrna Car RN BOAT RENTAL CLERK.INDUSTRIAL WASTE TREATMENT TECHNICIAN DATE of SERVICE: 04/19/2019 TIME of SERVICE: [...] on 12/21 npo at 1 am on 7/19 7/19 100 ml of periop bleed found a [...] of this encounter (statuses as of 06/14/2022) [facility] History of Past illness Narrative* Problem Noted [...] Normal Cath: mild non obsx CAD Cards: [facility] EKG: NSR w/ 1st degree Important/Relevant PMH/PSH: 73F from [facility] with GERD, depression, HTN, gastric bypass, PUD [...] lasix - Dispo: 73 yo female [place] Daughter can help. SW following. PT/OT [...] issues 04/30/20192019 Overview: 73 yo [place] Daughter can help. SW following. PT/OT [...] Surgical prep: Yes SIGNATURE: Myrna Car RN BOAT RENTAL CLERK.INDUSTRIAL WASTE TREATMENT TECHNICIAN DATE of SERVICE: 04/19/2019 TIME of SERVICE: [...] of this encounter (statuses as of 07/01/2022) [facility] History of Past illness Narrative* Problem Noted [...] Normal Cath: mild non obsx CAD Cards: [facility] EKG: NSR w/ 1st degree Important/Relevant PMH/PSH: 73F from [facility] with GERD, depression, HTN, gastric bypass, PUD [...] lasix - Dispo: 73 yo [place] Daughter can help. SW following. PT/OT [...] issues 04/30/20192019 Overview: 73 yo [place] Daughter can help. SW following. PT/OT [...] Surgical prep: Yes SIGNATURE: Myrna Car RN BOAT RENTAL CLERK.INDUSTRIAL WASTE TREATMENT TECHNICIAN DATE of SERVICE: 04/19/2019 TIME of SERVICE: [...] of this encounter (statuses as of 07/12/2022) [facility] History of Past illness Narrative* Problem Noted [...] Normal Cath: mild non obsx CAD Cards: [facility] EKG: NSR w/ 1st degree Important/Relevant PMH/PSH: 73F from [facility] with GERD, depression, HTN, gastric bypass, PUD [...] lasix - Dispo: 73 yo female [place] Daughter can help. SW following. PT/OT [...] issues 04/30/20192019 Overview: 73 yo [place] Daughter can help. SW following. PT/OT [...] Surgical prep: Yes SIGNATURE: Myrna Car RN BOAT RENTAL CLERK.INDUSTRIAL WASTE TREATMENT TECHNICIAN DATE of SERVICE: 04/19/2019 TIME of SERVICE: [...] of this encounter (statuses as of 08/10/2022) [facility] History of Past illness Narrative* Problem Noted [...] w/ 1st degree Important/Relevant PMH/PSH: 73F from [facility] with GERD, depression, HTN, gastric bypass, PUD [...] lasix - Dispo: 73 yo [place] Daughter can help. SW following. PT/OT [...] issues 04/30/20192019 Overview: 73 yo [place] Daughter can help. SW following. PT/OT [...] Surgical prep: Yes SIGNATURE: Myrna Car RN BOAT RENTAL CLERK.INDUSTRIAL WASTE TREATMENT TECHNICIAN DATE of SERVICE: 04/19/2019 TIME of SERVICE: [...] of this encounter (statuses as of 09/01/2022) [facility] History of Past illness Narrative* Problem Noted [...] w/ 1st degree Important/Relevant PMH/PSH: 73F from [facility] with GERD, depression, HTN, gastric bypass, PUD [...] lasix - Dispo: 73 yo [place] Daughter can help. SW following. PT/OT [...] issues 04/30/20192019 Overview: 73 yo [place] Daughter can help. SW following. PT/OT [...] Surgical prep: Yes SIGNATURE: Myrna Car RN BOAT RENTAL CLERK.INDUSTRIAL WASTE TREATMENT TECHNICIAN DATE of SERVICE: 04/19/2019 TIME of SERVICE: [...] of this encounter (statuses as of 09/02/2022) [facility] History of Past illness Narrative* Problem Noted [...] Normal Cath: mild non obsx CAD Cards: [facility] EKG: NSR w/ 1st degree Important/Relevant PMH/PSH: 73F from [place] with GERD, depression, HTN, gastric bypass, [...] lasix - Dispo: 73 yo [place] Daughter can help. SW following. PT/OT [...] issues 04/30/20192019 Overview: 73 yo [place] Daughter can help. SW following. PT/OT [...] Surgical prep: Yes SIGNATURE: Myrna Car RN BOAT RENTAL CLERK.INDUSTRIAL WASTE TREATMENT TECHNICIAN DATE of SERVICE: 04/19/2019 TIME of SERVICE: [...] of this encounter (statuses as of 09/05/2022) [facility] History of Past illness Narrative* Problem Noted [...] w/ 1st degree Important/Relevant PMH/PSH: 73F from [facility] with GERD, depression, HTN, gastric bypass, PUD [...] lasix - Dispo: 73 yo [place] Daughter can help. SW following. PT/OT [...] issues 04/30/20192019 Overview: 73 yo [place] Daughter can help. SW following. PT/OT [...] Surgical prep: Yes SIGNATURE: Myrna Car RN BOAT RENTAL CLERK.INDUSTRIAL WASTE TREATMENT TECHNICIAN DATE of SERVICE: 04/19/2019 TIME of SERVICE: [...] of this encounter (statuses as of 09/07/2022) [facility] History of Past illness Narrative* Problem Noted [...] w/ 1st degree Important/Relevant PMH/PSH: 73F from [facility] with GERD, depression, HTN, gastric bypass, PUD [...] lasix - Dispo: 73 yo [place] Daughter can help. SW following. PT/OT [...] issues 04/30/20192019 Overview: 73 yo [place] Daughter can help. SW following. PT/OT [...] Surgical prep: Yes SIGNATURE: Myrna Car RN BOAT RENTAL CLERK.INDUSTRIAL WASTE TREATMENT TECHNICIAN DATE of SERVICE: 04/19/2019 TIME of SERVICE: [...] of this encounter (statuses as of 10/04/2022) [facility] History of Past illness Narrative* Problem Noted [...] Cath: mild non obsx CAD Cards: [facility] EKG: NSR w/ 1st degree Important/Relevant PMH/PSH: 73F from [facility] with GERD, depression, HTN, gastric bypass, PUD [...] lasix - Dispo: 73 yo female [place] Daughter can help. SW following. PT/OT [...] issues 04/30/20192019 Overview: 73 yo [place] Daughter can help. SW following. PT/OT [...] Surgical prep: Yes SIGNATURE: Myrna Car RN BOAT RENTAL CLERK.INDUSTRIAL WASTE TREATMENT TECHNICIAN DATE of SERVICE: 04/19/2019 TIME of SERVICE: [...] of this encounter (statuses as of 10/05/2022) [facility] History of Past illness Narrative* Problem Noted [...] w/ 1st degree Important/Relevant PMH/PSH: 73F from [facility] with GERD, depression, HTN, gastric bypass, PUD [...] lasix - Dispo: 73 yo [place] Daughter can help. SW following. PT/OT [...] issues 04/30/20192019 Overview: 73 yo [place] Daughter can help. SW following. PT/OT rec home PT/OT; [facility] for IV antibiotics. Face-to face [...] Surgical prep: Yes SIGNATURE: Myrna Car RN BOAT RENTAL CLERK.INDUSTRIAL WASTE TREATMENT TECHNICIAN DATE of SERVICE: 04/19/2019 TIME of SERVICE: [...] of this encounter (statuses as of 11/02/2022) [facility] History of Past illness Narrative* Problem Noted [...] Cath: mild non obsx CAD Cards: [facility] EKG: NSR w/ 1st degree Important/Relevant PMH/PSH: 73F from [facility] with GERD, depression, HTN, gastric bypass, PUD [...] lasix - Dispo: 73 yo female [place] Daughter can help. SW following. PT/OT [...] issues 04/30/20192019 Overview: 73 yo [place] Daughter can help. SW following. PT/OT [...] Surgical prep: Yes SIGNATURE: Myrna Car RN BOAT RENTAL CLERK.INDUSTRIAL WASTE TREATMENT TECHNICIAN DATE of SERVICE: 04/19/2019 TIME of SERVICE: [...] of this encounter (statuses as of 11/05/2022) [facility] History of Past illness Narrative* Problem Noted [...] Normal Cath: mild non obsx CAD Cards: [facility] EKG: NSR w/ 1st degree Important/Relevant PMH/PSH: 73F from [facility] with GERD, depression, HTN, gastric bypass, PUD [...] lasix - Dispo: 73 yo female [place] Daughter can help. SW following. PT/OT [...] issues 04/30/20192019 Overview: 73 yo [place] Daughter can help. SW following. PT/OT [...] Surgical prep: Yes SIGNATURE: Myrna Car RN BOAT RENTAL CLERK.INDUSTRIAL WASTE TREATMENT TECHNICIAN DATE of SERVICE: 04/19/2019 TIME of SERVICE: [...] of this encounter (statuses as of 11/24/2022) [facility] of Past illness Narrative* Problem Noted [...] w/ 1st degree Important/Relevant PMH/PSH: 73F from [facility] with GERD, depression, HTN, gastric bypass, PUD [...] lasix - Dispo: 73 yo [place] Daughter can help. SW following. PT/OT [...] issues 04/30/2019 Overview: 73 yo [place] Daughter can help. SW following. PT/OT [...] Surgical prep: Yes SIGNATURE: Myrna Car RN BOAT RENTAL CLERK.INDUSTRIAL WASTE TREATMENT TECHNICIAN DATE of SERVICE: 04/19/2019 TIME of SERVICE: [...] of this encounter (statuses as of 12/12/2022) [facility] of Past illness Narrative* Problem Noted [...] Normal Cath: mild non obsx [facility]: [facility]R w/ 1st degree Important/Relevant PMH/PSH: 73F from [facility] with GERD, depression, HTN, gastric bypass, PUD [...] lasix - Dispo: 73 yo [place] Daughter can help. SW following. PT/OT [...] issues 04/30/2019 Overview: 73 yo [place] Daughter can help. SW following. PT/OT [...] Surgical prep: Yes SIGNATURE: Myrna Car RN BOAT RENTAL CLERK.INDUSTRIAL WASTE TREATMENT TECHNICIAN DATE of SERVICE: 04/19/2019 TIME of SERVICE: [...] of this encounter (statuses as of 12/15/2022) [facility] of Past illness Narrative* Problem Noted [...] w/ 1st degree Important/Relevant PMH/PSH: 73F from [facility] with GERD, depression, HTN, gastric bypass, PUD [...] lasix - Dispo: 73 yo [place] Daughter can help. SW following. PT/OT [...] issues 04/30/2019 Overview: 73 yo [place] Daughter can help. SW following. PT/OT [...] Surgical prep: Yes SIGNATURE: Myrna Car RN BOAT RENTAL CLERK.INDUSTRIAL WASTE TREATMENT TECHNICIAN DATE of SERVICE: 04/19/2019 TIME of SERVICE: [...] of this encounter (statuses as of 12/15/2022) [facility] of Past illness Narrative* Problem Noted [...] Normal Cath: mild non obsx CAD Cards: [facility] EKG: NSR w/ 1st degree Important/Relevant PMH/PSH: 73F from [facility] with GERD, depression, HTN, gastric bypass, PUD [...] lasix - Dispo: 73 yo female [place] Daughter can help. SW following. PT/OT [...] issues 04/30/2019 Overview: 73 yo [place] Daughter can help. SW following. PT/OT [...] Surgical prep: Yes SIGNATURE: Myrna Car RN BOAT RENTAL CLERK.INDUSTRIAL WASTE TREATMENT TECHNICIAN DATE of SERVICE: 04/19/2019 TIME of SERVICE: [...] of this encounter (statuses as of 01/12/2023) [facility] History of Past illness Narrative* Problem Noted [...] Cath: mild non obsx CAD Cards: [facility] EKG: NSR w/ 1st degree Important/Relevant PMH/PSH: 73F from [facility] with GERD, depression, HTN, gastric bypass, PUD [...] lasix - Dispo: 73 yo [place] Daughter can help. SW following. PT/OT [...] issues 04/30/2019 Overview: 73 yo [place] Daughter can help. SW following. PT/OT [...] Surgical prep: Yes SIGNATURE: Myrna Car RN BOAT RENTAL CLERK.INDUSTRIAL WASTE TREATMENT TECHNICIAN DATE of SERVICE: 04/19/2019 TIME of SERVICE: [...] of this encounter (statuses as of 04/09/2023) [facility] of Past illness Narrative* Problem Noted [...] w/ 1st degree Important/Relevant PMH/PSH: 73F from [facility] with GERD, depression, HTN, gastric bypass, PUD [...] placed 04/30. CoPat started. Continue Ceftriaxone through 12/30. Post-op echo completed 04/26: EF 75%, trace Mr, trivial-small pericardial effusion. - s/p PPM: Device check completed 04/30. - FVO: Up 3.7kg. Continue lasix - Dispo: 73 yo [place] Daughter can help. SW following. PT/OT [...] issues 04/30/2019 Overview: 73 yo [place] Daughter can help. SW following. PT/OT [...] Surgical prep: Yes SIGNATURE: Myrna Car RN BOAT RENTAL CLERK.INDUSTRIAL WASTE TREATMENT TECHNICIAN DATE of SERVICE: 04/19/2019 TIME of SERVICE: [...] of this encounter (statuses as of 04/09/2023) [facility] of Past illness Narrative* Problem Noted [...] Normal Cath: mild non obsx CAD Cards: [facility] EKG: NSR w/ 1st degree Important/Relevant PMH/PSH: 73F from [facility] with GERD, depression, HTN, gastric bypass, PUD [...] lasix - Dispo: 73 yo [place] Daughter can help. SW following. PT/OT [...] issues 04/30/2019 Overview: 73 yo [place] Daughter can help. SW following. PT/OT [...] Surgical prep: Yes SIGNATURE: Myrna Car RN BOAT RENTAL CLERK.INDUSTRIAL WASTE TREATMENT TECHNICIAN DATE of SERVICE: 04/19/2019 TIME of SERVICE: [...] of this encounter (statuses as of 04/09/2023) [facility] of Past illness Narrative* Problem Noted [...] w/ 1st degree Important/Relevant PMH/PSH: 73F from [facility] with GERD, depression, HTN, gastric bypass, PUD [...] lasix - Dispo: 73 yo [place] Daughter can help. SW following. PT/OT [...] issues 04/30/2019 Overview: 73 yo [place] Daughter can help. SW following. PT/OT [...] Surgical prep: Yes SIGNATURE: Myrna Car RN BOAT RENTAL CLERK.INDUSTRIAL WASTE TREATMENT TECHNICIAN DATE of SERVICE: 04/19/2019 TIME of SERVICE: [...] of this encounter (statuses as of 05/04/2023) [facility] History of Past illness Narrative* Problem Noted [...] Normal Cath: mild non obsx CAD Cards: [facility] EKG: NSR w/ 1st degree Important/Relevant PMH/PSH: 73F from [facility] with GERD, depression, HTN, gastric bypass, PUD [...] lasix - Dispo: 73 yo [place] Daughter can help. SW following. PT/OT [...] issues 04/30/2019 Overview: 73 yo [place] Daughter can help. SW following. PT/OT [...] Surgical prep: Yes SIGNATURE: Myrna Car RN BOAT RENTAL CLERK.INDUSTRIAL WASTE TREATMENT TECHNICIAN DATE of SERVICE: 04/19/2019 TIME of SERVICE: [...] of this encounter (statuses as of 08/12/2023) [facility] History of Present illness Narrative* Carmeol Flood Tech (Rt) - 03/31/2020 3:30 PM EDT Radiology Service [...] 31, 2020 3:40 PM [facility] History of Past illness Narrative* Problem Noted Date Resolved Date Other pancytopenia 01/01/2020 03/27/2020 Transition of care performed with sharing of clinical summary 04/30/2019 03/27/2020 Overview: Indication for Surgery: Prosthetic aortic valve endocarditis Preop LVEF: 75% RVF: Normal Postop LVEF: Normal RVF: Normal Cath: mild non obsx [facility]: NSR w/ 1st degree Important/Relevant PMH/PSH: 73F from [facility] with GERD, depression, HTN, gastric bypass, PUD [...] lasix - Dispo: 73 yo [place] Daughter can help. SW following. PT/OT [...] issues 04/30/20192019 Overview: 73 yo [place] Daughter can help. SW following. PT/OT rec home PT/OT; [facility] for IV antibiotics. Face-to face [...] Surgical prep: Yes SIGNATURE: Myrna Car RN BOAT RENTAL CLERK.INDUSTRIAL WASTE TREATMENT TECHNICIAN DATE of SERVICE: 04/19/2019 TIME of SERVICE: [...] of this encounter (statuses as of 08/22/2021) [facility] History of Past illness Narrative* Problem Noted Date Resolved Date Other pancytopenia 01/01/2020 03/27/2020 Transition of care performed with sharing of clinical summary 04/30/2019 03/27/2020 Overview: Indication for Surgery: Prosthetic aortic valve endocarditis Preop LVEF: 75% RVF: Normal Postop LVEF: Normal RVF: Normal Cath: mild non obsx CAD Cards: [facility] EKG: NSR w/ 1st degree Important/Relevant PMH/PSH: 73F from [facility] with GERD, depression, HTN, gastric bypass, PUD [...] lasix - Dispo: 73 yo [place] from [place] Daughter can help. SW following. PT/OT [...] issues 04/30/20192019 Overview: 73 yo [place] Daughter can help. SW following. PT/OT [...] Surgical prep: Yes SIGNATURE: Myrna Car RN BOAT RENTAL CLERK.INDUSTRIAL WASTE TREATMENT TECHNICIAN DATE of SERVICE: 04/19/2019 TIME of SERVICE: [...] of this encounter (statuses as of 08/23/2021) [facility] History of Past illness Narrative* Problem Noted Date Resolved Date Other pancytopenia 01/01/2020 03/27/2020 Transition of care performed with sharing of clinical summary 04/30/2019 03/27/2020 Overview: Indication for Surgery: Prosthetic aortic valve endocarditis Preop LVEF: 75% RVF: Normal Postop LVEF: Normal RVF: Normal Cath: mild non obsx CAD Cards: [facility] EKG: NSR w/ 1st degree Important/Relevant PMH/PSH: 73F from [facility] with GERD, depression, HTN, gastric bypass, PUD [...] placed 04/30. CoPat started. Continue Ceftriaxone through 12/30. Post-op echo completed 04/26: EF 75%, trace Mr, trivial-small pericardial effusion. - s/p PPM: Device check completed 04/30. - FVO: Up 3.7kg. Continue lasix - Dispo: 73 yo female from [place]. Daughter can help. SW following. PT/OT [...] issues 04/30/20192019 Overview: 73 yo female from [place]. Daughter can help. SW following. PT/OT [...] Anticoagulation: none Op Note: Yes with Dr. iRos Pacemaker Check: No Implants: no Consults: ID, GI DM: No Cardiac Surgical prep: Yes SIGNATURE: Myrna Car RN BOAT RENTAL CLERK.INDUSTRIAL WASTE TREATMENT TECHNICIAN DATE of SERVICE: 04/19/2019 TIME of SERVICE: [...] of this encounter (statuses as of 09/03/2021) [facility]-2020 History of Past illness Narrative* Problem Noted Date Resolved Date Other pancytopenia 01/01/2020 03/27/2020 Transition of care performed with sharing of clinical summary 04/30/2019 03/27/2020 Overview: Indication for Surgery: Prosthetic aortic valve endocarditis Preop LVEF: 75% RVF: Normal Postop LVEF: Normal RVF: Normal Cath: mild non obsx CAD Cards: [facility] EKG: NSR w/ 1st degree Important/Relevant PMH/PSH: 73F from [facility] with GERD, depression, HTN, gastric bypass, PUD [...] lasix - Dispo: 73 yo female from [place]. Daughter can help. SW following. PT/OT [...] issues 04/30/20192019 Overview: 73 yo [place] Daughter can help. SW following. PT/OT [...] Surgical prep: Yes SIGNATURE: Myrna Car RN BOAT RENTAL CLERK.INDUSTRIAL WASTE TREATMENT TECHNICIAN DATE of SERVICE: 04/19/2019 TIME of SERVICE: [...] of this encounter (statuses as of 09/06/2021) [facility] History of Past illness Narrative* Problem Noted Date Resolved Date Other pancytopenia 01/01/2020 03/27/2020 Transition of care performed with sharing of clinical summary 04/30/2019 03/27/2020 Overview: Indication for Surgery: Prosthetic aortic valve endocarditis Preop LVEF: 75% RVF: Normal Postop LVEF: Normal RVF: Normal Cath: mild non obsx CAD Cards: [facility] EKG: NSR w/ 1st degree Important/Relevant PMH/PSH: 73F from [facility] with GERD, depression, HTN, gastric bypass, PUD [...] lasix - Dispo: 73 yo female from [place]. Daughter can help. SW following. PT/OT [...] issues 04/30/20192019 Overview: 73 yo [place] Daughter can help. SW following. PT/OT [...] Surgical prep: Yes SIGNATURE: Myrna Car RN BOAT RENTAL CLERK.INDUSTRIAL WASTE TREATMENT TECHNICIAN DATE of SERVICE: 04/19/2019 TIME of SERVICE: [...] and other NSAID 12/[address] Boinlla's team for transgastric endoscopy + possible resection [...] of this encounter (statuses as of 09/06/2021) [facility] History of Past illness Narrative* Problem Noted Date Resolved Date Other pancytopenia 01/01/2020 03/27/2020 Transition of care performed with sharing of clinical summary 04/30/2019 03/27/2020 Overview: Indication for Surgery: Prosthetic aortic valve endocarditis Preop LVEF: 75% RVF: Normal Postop LVEF: Normal RVF: Normal Cath: mild non obsx CAD Cards: [facility] EKG: NSR w/ 1st degree Important/Relevant PMH/PSH: 73F from [facility] with GERD, depression, HTN, gastric bypass, PUD [...] lasix - Dispo: 73 yo female from [place]. Daughter can help. SW following. PT/OT [...] issues 04/30/20192019 Overview: 73 yo [place] Daughter can help. SW following. PT/OT [...] Surgical prep: Yes SIGNATURE: Myrna Car RN BOAT RENTAL CLERK.INDUSTRIAL WASTE TREATMENT TECHNICIAN DATE of SERVICE: 04/19/2019 TIME of SERVICE: [...] of this encounter (statuses as of 09/13/2021) [facility] History of Past illness Narrative* Problem Noted Date Resolved Date Other pancytopenia 01/01/2020 03/27/2020 Transition of care performed with sharing of clinical summary 04/30/2019 03/27/2020 Overview: Indication for Surgery: Prosthetic aortic valve endocarditis Preop LVEF: 75% RVF: Normal Postop LVEF: Normal RVF: Normal Cath: mild non obsx CAD Cards: [facility] EKG: NSR w/ 1st degree Important/Relevant PMH/PSH: 73F from [facility] with GERD, depression, HTN, gastric bypass, PUD [...] lasix - Dispo: 73 yo female from [place] Daughter can help. SW following. PT/OT [...] issues 04/30/20192019 Overview: 73 yo female [place] Daughter can help. SW following. PT/OT [...] Surgical prep: Yes SIGNATURE: Myrna Car RN BOAT RENTAL CLERK.INDUSTRIAL WASTE TREATMENT TECHNICIAN DATE of SERVICE: 04/19/2019 TIME of SERVICE: [...] of this encounter (statuses as of 09/30/2021) [facility] History of Past illness Narrative* Problem Noted Date Resolved Date Other pancytopenia 01/01/2020 03/27/2020 Transition of care performed with sharing of clinical summary 04/30/2019 03/27/2020 Overview: Indication for Surgery: Prosthetic aortic valve endocarditis Preop LVEF: 75% RVF: Normal Postop LVEF: Normal RVF: Normal Cath: mild non obsx CAD Cards: [facility] EKG: NSR w/ 1st degree Important/Relevant PMH/PSH: 73F from [facility] with GERD, depression, HTN, gastric bypass, PUD [...] lasix - Dispo: 73 yo female from [place]. Daughter can help. SW following. PT/OT [...] issues 04/30/20192019 Overview: 73 yo [place] Daughter can help. SW following. PT/OT [...] Surgical prep: Yes SIGNATURE: Myrna Car RN BOAT RENTAL CLERK.INDUSTRIAL WASTE TREATMENT TECHNICIAN DATE of SERVICE: 04/19/2019 TIME of SERVICE: [...] of this encounter (statuses as of 10/04/2021) [facility] History of Past illness Narrative* Problem Noted Date Resolved Date Other pancytopenia 01/01/2020 03/27/2020 Transition of care performed with sharing of clinical summary 04/30/2019 03/27/2020 Overview: Indication for Surgery: Prosthetic aortic valve endocarditis Preop LVEF: 75% RVF: Normal Postop LVEF: Normal RVF: Normal Cath: mild non obsx CAD Cards: [facility] EKG: NSR w/ 1st degree Important/Relevant PMH/PSH: 73F from [facility] with GERD, depression, HTN, gastric bypass, PUD [...] lasix - Dispo: 73 yo female from [place] Daughter can help. SW following. PT/OT [...] issues 04/30/20192019 Overview: 73 yo female [place] Daughter can help. SW following. PT/OT [...] Surgical prep: Yes SIGNATURE: Myrna Car RN BOAT RENTAL CLERK.INDUSTRIAL WASTE TREATMENT TECHNICIAN DATE of SERVICE: 04/19/2019 TIME of SERVICE: [...] of this encounter (statuses as of 10/21/2021) [facility] History of Past illness Narrative* Problem Noted Date Resolved Date Other pancytopenia 01/01/2020 03/27/2020 Transition of care performed with sharing of clinical summary 04/30/2019 03/27/2020 Overview: Indication for Surgery: Prosthetic aortic valve endocarditis Preop LVEF: 75% RVF: Normal Postop LVEF: Normal RVF: Normal Cath: mild non obsx CAD Cards: [facility] EKG: NSR w/ 1st degree Important/Relevant PMH/PSH: 73F from [facility] with GERD, depression, HTN, gastric bypass, PUD [...] lasix - Dispo: 73 yo female from [place]. Daughter can help. SW following. PT/OT [...] issues 04/30/20192019 Overview: 73 yo [place] Daughter can help. SW following. PT/OT [...] Surgical prep: Yes SIGNATURE: Myrna Car RN BOAT RENTAL CLERK.INDUSTRIAL WASTE TREATMENT TECHNICIAN DATE of SERVICE: 04/19/2019 TIME of SERVICE: [...] of this encounter (statuses as of 10/21/2021) [facility] History of Past illness Narrative* Problem Noted Date Resolved Date Other pancytopenia 01/01/2020 03/27/2020 Transition of care performed with sharing of clinical summary 04/30/2019 03/27/2020 Overview: Indication for Surgery: Prosthetic aortic valve endocarditis Preop LVEF: 75% RVF: Normal Postop LVEF: Normal RVF: Normal Cath: mild non obsx CAD Cards: [facility] EKG: NSR w/ 1st degree Important/Relevant PMH/PSH: 73F from [facility] with GERD, depression, HTN, gastric bypass, PUD [...] lasix - Dispo: 73 yo female from [place] Daughter can help. SW following. PT/OT [...] issues 04/30/20192019 Overview: 73 yo female [place] Daughter can help. SW following. PT/OT [...] Surgical prep: Yes SIGNATURE: Myrna Car RN BOAT RENTAL CLERK.ARBEN DATE of SERVICE: 04/19/2019 TIME of SERVICE: [...] of this encounter (statuses as of 10/28/2021) [facility] History of Past illness Narrative* Problem Noted Date Resolved Date Other pancytopenia 01/01/2020 03/27/2020 Transition of care performed with sharing of clinical summary 04/30/2019 03/27/2020 Overview: Indication for Surgery: Prosthetic aortic valve endocarditis Preop LVEF: 75% RVF: Normal Postop LVEF: Normal RVF: Normal Cath: mild non obsx CAD Cards: [facility] EKG: NSR w/ 1st degree Important/Relevant PMH/PSH: 73F from [place] with GERD, depression, HTN, gastric bypass, [...] lasix - Dispo: 73 yo female from [place]. Daughter can help. MARYBEL following. PT/OT [...] issues 04/30/20192019 Overview: 73 yo female from [place] Daughter can help. MARYBEL following. PT/OT [...] Surgical prep: Yes SIGNATURE: Myrna Car RN BOAT RENTAL CLERK.INDUSTRIAL WASTE TREATMENT TECHNICIAN DATE of SERVICE: 04/19/2019 TIME of SERVICE: [...] of this encounter (statuses as of 10/29/2021) [facility] History of Past illness Narrative* Problem Noted Date Resolved Date Other pancytopenia 01/01/2020 03/27/2020 Transition of care performed with sharing of clinical summary 04/30/2019 03/27/2020 Overview: Indication for Surgery: Prosthetic aortic valve endocarditis Preop LVEF: 75% RVF: Normal Postop LVEF: Normal RVF: Normal Cath: mild non obsx CAD Cards: [facility] EKG: NSR w/ 1st degree Important/Relevant PMH/PSH: 73F from [facility] with GERD, depression, HTN, gastric bypass, PUD [...] lasix - Dispo: 73 yo female from [place]. Daughter can help. SW following. PT/OT [...] issues 04/30/20192019 Overview: 73 yo [place] Daughter can help. SW following. PT/OT [...] Date of surgery: 04/22 [facility] for delay[facility] Surgeon: [...] Surgical prep: Yes SIGNATURE: Myrna Car RN BOAT RENTAL CLERK.INDUSTRIAL WASTE TREATMENT TECHNICIAN DATE of SERVICE: 04/19/2019 TIME of SERVICE: [...] of this encounter (statuses as of 10/29/2021) [facility] History of Past illness Narrative* Problem Noted Date Resolved Date Other pancytopenia 01/01/2020 03/27/2020 Transition of care performed with sharing of clinical summary 04/30/2019 03/27/2020 Overview: Indication for Surgery: Prosthetic aortic valve endocarditis Preop LVEF: 75% RVF: Normal Postop LVEF: Normal RVF: Normal Cath: mild non obsx CAD Cards: [facility] EKG: NSR w/ 1st degree Important/Relevant PMH/PSH: 73F from [facility] with GERD, depression, HTN, gastric bypass, PUD [...] lasix - Dispo: 73 yo female from [place] Daughter can help. SW following. PT/OT [...] issues 04/30/20192019 Overview: 73 yo female [place] Daughter can help. SW following. PT/OT [...] Surgical prep: Yes SIGNATURE: Myrna Car RN BOAT RENTAL CLERK.INDUSTRIAL WASTE TREATMENT TECHNICIAN DATE of SERVICE: 04/19/2019 TIME of SERVICE: [...] of this encounter (statuses as of 11/02/2021) [facility] History of Past illness Narrative* Problem Noted Date Resolved Date Other pancytopenia 01/01/2020 03/27/2020 Transition of care performed with sharing of clinical summary 04/30/2019 03/27/2020 Overview: Indication for Surgery: Prosthetic aortic valve endocarditis Preop LVEF: 75% RVF: Normal Postop LVEF: Normal RVF: Normal Cath: mild non obsx [facility]: [facility] w/ 1st degree Important/Relevant PMH/PSH: 73F from [facility] with GERD, depression, HTN, gastric bypass, PUD [...] lasix - Dispo: 73 yo female from [place]. Daughter can help. SW following. PT/OT [...] issues 04/30/20192019 Overview: 73 yo female [place] Daughter can help. SW following. PT/OT [...] Surgical prep: Yes SIGNATURE: Myrna Car RN BOAT RENTAL CLERK.INDUSTRIAL WASTE TREATMENT TECHNICIAN DATE of SERVICE: 04/19/2019 TIME of SERVICE: [...] of this encounter (statuses as of 11/03/2021) [facility] History of Past illness Narrative* Problem Noted Date Resolved Date Other pancytopenia 01/01/2020 03/27/2020 Transition of care performed with sharing of clinical summary 04/30/2019 03/27/2020 Overview: Indication for Surgery: Prosthetic aortic valve endocarditis Preop LVEF: 75% RVF: Normal Postop LVEF: Normal RVF: Normal Cath: mild non obsx CAD Cards: [facility] EKG: NSR w/ 1st degree Important/Relevant PMH/PSH: 73F from [facility] with GERD, depression, HTN, gastric bypass, PUD [...] lasix - Dispo: 73 yo female from [place] Daughter can help. SW following. PT/OT [...] issues 04/30/20192019 Overview: 73 yo [place] Daughter can help. SW following. PT/OT [...] Surgical prep: Yes SIGNATURE: Myrna Car RN BOAT RENTAL CLERK.INDUSTRIAL WASTE TREATMENT TECHNICIAN DATE of SERVICE: 04/19/2019 TIME of SERVICE: [...] of this encounter (statuses as of 11/08/2021) [facility] History of Past illness Narrative* Problem Noted Date Resolved Date Other pancytopenia 01/01/2020 03/27/2020 Transition of care performed with sharing of clinical summary 04/30/2019 03/27/2020 Overview: Indication for Surgery: Prosthetic aortic valve endocarditis Preop LVEF: 75% RVF: Normal Postop LVEF: Normal RVF: Normal Cath: mild non obsx CAD Cards: [facility] EKG: NSR w/ 1st degree Important/Relevant PMH/PSH: 73F from [facility] with GERD, depression, HTN, gastric bypass, PUD [...] lasix - Dispo: 73 yo female [place] Daughter can help. SW following. PT/OT [...] issues 04/30/20192019 Overview: 73 yo [place] Daughter can help. SW following. PT/OT [...] Surgical prep: Yes SIGNATURE: Myrna Car RN BOAT RENTAL CLERK.ARBEN DATE of SERVICE: 04/19/2019 TIME of SERVICE: [...] of this encounter (statuses as of 11/12/2021) [facility] History of Past illness Narrative* Problem Noted Date Resolved Date Other pancytopenia 01/01/2020 03/27/2020 Transition of care performed with sharing of clinical summary 04/30/2019 03/27/2020 Overview: Indication for Surgery: Prosthetic aortic valve endocarditis Preop LVEF: 75% RVF: Normal Postop LVEF: Normal RVF: Normal Cath: mild non obsx CAD Cards: [facility] EKG: NSR w/ 1st degree Important/Relevant PMH/PSH: 73F from [facility] with GERD, depression, HTN, gastric bypass, PUD [...] lasix - Dispo: 73 yo female from [place] Daughter can help. SW following. PT/OT [...] issues 04/30/20192019 Overview: 73 yo [place] Daughter can help. SW following. PT/OT [...] No Cardiac Surgical prep: Yes SIGNATURE: Myrna aCr RN BOAT RENTAL CLERK.INDUSTRIAL WASTE TREATMENT TECHNICIAN DATE of SERVICE: 04/19/2019 TIME of SERVICE: [...] of this encounter (statuses as of 11/23/2021) [facility] History of Past illness Narrative* Problem Noted Date Resolved Date Other pancytopenia 01/01/2020 03/27/2020 Transition of care performed with sharing of clinical summary 04/30/2019 03/27/2020 Overview: Indication for Surgery: Prosthetic aortic valve endocarditis Preop LVEF: 75% RVF: Normal Postop LVEF: Normal RVF: Normal Cath: mild non obsx CAD Cards: [facility] EKG: NSR w/ 1st degree Important/Relevant PMH/PSH: 73F from [place] with GERD, depression, HTN, gastric bypass, [...] lasix - Dispo: 73 yo female from [place]. Daughter can help. SW following. PT/OT rec home PT/OT; [facility] for IV antibiotics. Face-to face [...] issues 04/30/20192019 Overview: 73 yo female from [place] Daughter can help. SW following. PT/OT [...] Surgical prep: Yes SIGNATURE: Myrna Car RN BOAT RENTAL CLERK.INDUSTRIAL WASTE TREATMENT TECHNICIAN DATE of SERVICE: 04/19/2019 TIME of SERVICE: [...] of this encounter (statuses as of 11/24/2021) [facility] History of Past illness Narrative* Problem Noted Date Resolved Date Other pancytopenia 01/01/2020 03/27/2020 Transition of care performed with sharing of clinical summary 04/30/2019 03/27/2020 Overview: Indication for Surgery: Prosthetic aortic valve endocarditis Preop LVEF: 75% RVF: Normal Postop LVEF: Normal RVF: Normal Cath: mild non obsx CAD Cards: [facility] EKG: NSR w/ 1st degree Important/Relevant PMH/PSH: 73F from [facility] with GERD, depression, HTN, gastric bypass, PUD [...] lasix - Dispo: 73 yo female from [place] Daughter can help. SW following. PT/OT [...] issues 04/30/20192019 Overview: 73 yo [place] Daughter can help. SW following. PT/OT [...] Surgical prep: Yes SIGNATURE: Myrna Car RN BOAT RENTAL CLERK.INDUSTRIAL WASTE TREATMENT TECHNICIAN DATE of SERVICE: 04/19/2019 TIME of SERVICE: [...] of this encounter (statuses as of 11/26/2021) [facility] History of Past illness Narrative* Problem Noted Date Resolved Date Other pancytopenia 01/01/2020 03/27/2020 Transition of care performed with sharing of clinical summary 04/30/2019 03/27/2020 Overview: Indication for Surgery: Prosthetic aortic valve endocarditis Preop LVEF: 75% RVF: Normal Postop LVEF: Normal RVF: Normal Cath: mild non obsx CAD Cards: [facility] EKG: NSR w/ 1st degree Important/Relevant PMH/PSH: 73F from [facility] with GERD, depression, HTN, gastric bypass, PUD [...] lasix - Dispo: 73 yo [place] Daughter can help. SW following. PT/OT [...] issues 04/30/20192019 Overview: 73 yo [place] Daughter can help. SW following. PT/OT [...] Surgical prep: Yes SIGNATURE: Myrna Car RN BOAT RENTAL CLERK.INDUSTRIAL WASTE TREATMENT TECHNICIAN DATE of SERVICE: 04/19/2019 TIME of SERVICE: [...] of this encounter (statuses as of 11/30/2021) [facility] History of Past illness Narrative* Problem Noted Date Resolved Date Other pancytopenia 01/01/2020 03/27/2020 Transition of care performed with sharing of clinical summary 04/30/2019 03/27/2020 Overview: Indication for Surgery: Prosthetic aortic valve endocarditis Preop LVEF: 75% RVF: Normal Postop LVEF: Normal RVF: Normal Cath: mild non obsx CAD Cards: [facility] EKG: NSR w/ 1st degree Important/Relevant PMH/PSH: 73F from [facility] with GERD, depression, HTN, gastric bypass, PUD [...] lasix - Dispo: 73 yo female [place] Daughter can help. SW following. PT/OT [...] issues 04/30/20192019 Overview: 73 yo [place] Daughter can help. SW following. PT/OT [...] Surgical prep: Yes SIGNATURE: Myrna Car RN BOAT RENTAL CLERK.INDUSTRIAL WASTE TREATMENT TECHNICIAN DATE of SERVICE: 04/19/2019 TIME of SERVICE: [...] of this encounter (statuses as of 12/10/2021) [facility] History of Past illness Narrative* Problem Noted Date Resolved Date Other pancytopenia 01/01/2020 03/27/2020 Transition of care performed with sharing of clinical summary 04/30/2019 03/27/2020 Overview: Indication for Surgery: Prosthetic aortic valve endocarditis Preop LVEF: 75% RVF: Normal Postop LVEF: Normal RVF: Normal Cath: mild non obsx CAD Cards: [facility] EKG: NSR w/ 1st degree Important/Relevant PMH/PSH: 73F from [facility] with GERD, depression, HTN, gastric bypass, PUD [...] lasix - Dispo: 73 yo [place] Daughter can help. SW following. PT/OT [...] issues 04/30/20192019 Overview: 73 yo [place] Daughter can help. SW following. PT/OT [...] Surgical prep: Yes SIGNATURE: Myrna Car RN BOAT RENTAL CLERK.ARBEN DATE of SERVICE: 04/19/2019 TIME of SERVICE: [...] of this encounter (statuses as of 12/27/2021) [facility] History of Past illness Narrative* Problem Noted Date Resolved Date Other pancytopenia 01/01/2020 03/27/2020 Transition of care performed with sharing of clinical summary 04/30/2019 03/27/2020 Overview: Indication for Surgery: Prosthetic aortic valve endocarditis Preop LVEF: 75% RVF: Normal Postop LVEF: Normal RVF: Normal Cath: mild non obsx CAD Cards: [facility] EKG: NSR w/ 1st degree Important/Relevant PMH/PSH: 73F from [facility] with GERD, depression, HTN, gastric bypass, PUD [...] lasix - Dispo: 73 yo female from [place] Daughter can help. SW following. PT/OT [...] issues 04/30/20192019 Overview: 73 yo [place] Daughter can help. SW following. PT/OT [...] Surgical prep: Yes SIGNATURE: Myrna Car RN BOAT RENTAL CLERK.INDUSTRIAL WASTE TREATMENT TECHNICIAN DATE of SERVICE: 04/19/2019 TIME of SERVICE: [...] of this encounter (statuses as of 12/28/2021) [facility] History of Past illness Narrative* Problem Noted Date Resolved Date Other pancytopenia 01/01/2020 03/27/2020 Transition of care performed with sharing of clinical summary 04/30/2019 03/27/2020 Overview: Indication for Surgery: Prosthetic aortic valve endocarditis Preop LVEF: 75% RVF: Normal Postop LVEF: Normal RVF: Normal Cath: mild non obsx CAD Cards: [facility] EKG: NSR w/ 1st degree Important/Relevant PMH/PSH: 73F from [place] with GERD, depression, HTN, gastric bypass, [...] lasix - Dispo: 73 yo female from [place] Daughter can help. SW following. PT/OT rec home PT/OT; [facility] for IV antibiotics. Face-to face [...] issues 04/30/20192019 Overview: 73 yo [place] from [place] Daughter can help. SW following. PT/OT [...] Surgical prep: Yes SIGNATURE: Myrna Car RN BOAT RENTAL CLERK.INDUSTRIAL WASTE TREATMENT TECHNICIAN DATE of SERVICE: 04/19/2019 TIME of SERVICE: [...] of this encounter (statuses as of 12/28/2021) [facility] History of Past illness Narrative* Problem Noted Date Resolved Date Other pancytopenia 01/01/2020 03/27/2020 Transition of care performed with sharing of clinical summary 04/30/2019 03/27/2020 Overview: Indication for Surgery: Prosthetic aortic valve endocarditis Preop LVEF: 75% RVF: Normal Postop LVEF: Normal RVF: Normal Cath: mild non obsx CAD Cards: [facility] EKG: NSR w/ 1st degree Important/Relevant PMH/PSH: 73F from [facility] with GERD, depression, HTN, gastric bypass, PUD [...] lasix - Dispo: 73 yo female from [place] Daughter can help. SW following. PT/OT [...] issues 04/30/20192019 Overview: 73 yo female from [place] Daughter can help. SW following. PT/OT [...] Surgical prep: Yes SIGNATURE: Myrna Car RN BOAT RENTAL CLERK.INDUSTRIAL WASTE TREATMENT TECHNICIAN DATE of SERVICE: 04/19/2019 TIME of SERVICE: [...] of this encounter (statuses as of 01/05/2022) [facility] History of Past illness Narrative* Problem Noted Date Resolved Date Other pancytopenia 01/01/2020 03/27/2020 Transition of care performed with sharing of clinical summary 04/30/2019 03/27/2020 Overview: Indication for Surgery: Prosthetic aortic valve endocarditis Preop LVEF: 75% RVF: Normal Postop LVEF: Normal RVF: Normal Cath: mild non obsx [facility]: [facility] w/ 1st degree Important/Relevant PMH/PSH: 73F from [facility] with GERD, depression, HTN, gastric bypass, PUD [...] lasix - Dispo: 73 yo female from [place] Daughter can help. SW following. PT/OT [...] issues 04/30/20192019 Overview: 73 yo female [place] Daughter can help. SW following. PT/OT [...] Surgical prep: Yes SIGNATURE: Myrna Car RN BOAT RENTAL CLERK.INDUSTRIAL WASTE TREATMENT TECHNICIAN DATE of SERVICE: 04/19/2019 TIME of SERVICE: [...] of this encounter (statuses as of 01/10/2022) [facility] History of Past illness Narrative* Problem Noted Date Resolved Date Other pancytopenia 01/01/2020 03/27/2020 Transition of care performed with sharing of clinical summary 04/30/2019 03/27/2020 Overview: Indication for Surgery: Prosthetic aortic valve endocarditis Preop LVEF: 75% RVF: Normal Postop LVEF: Normal RVF: Normal Cath: mild non obsx CAD Cards: [facility] EKG: NSR w/ 1st degree Important/Relevant PMH/PSH: 73F from [facility] with GERD, depression, HTN, gastric bypass, PUD [...] lasix - Dispo: 73 yo female from [place]. Daughter can help. SW following. PT/OT [...] issues 04/30/20192019 Overview: 73 yo female from [place]. Daughter can help. SW following. PT/OT [...] Surgical prep: Yes SIGNATURE: Myrna Car RN BOAT RENTAL CLERK.INDUSTRIAL WASTE TREATMENT TECHNICIAN DATE of SERVICE: 04/19/2019 TIME of SERVICE: [...] of this encounter (statuses as of 01/10/2022) [facility] History of Past illness Narrative* Problem Noted Date Resolved Date Other pancytopenia 01/01/2020 03/27/2020 Transition of care performed with sharing of clinical summary 04/30/2019 03/27/2020 Overview: Indication for Surgery: Prosthetic aortic valve endocarditis Preop LVEF: 75% RVF: Normal Postop LVEF: Normal RVF: Normal Cath: mild non obsx CAD Cards: [facility] EKG: NSR w/ 1st degree Important/Relevant PMH/PSH: 73F from [facility] with GERD, depression, HTN, gastric bypass, PUD [...] lasix - Dispo: 73 yo female from [place]. Daughter can help. SW following. PT/OT [...] issues 04/30/20192019 Overview: 73 yo female from [place]. Daughter can help. SW following. PT/OT [...] Surgical prep: Yes SIGNATURE: Myrna Car RN BOAT RENTAL CLERK.INDUSTRIAL WASTE TREATMENT TECHNICIAN DATE of SERVICE: 04/19/2019 TIME of SERVICE: [...] of this encounter (statuses as of 01/12/2022) [facility] History of Past illness Narrative* Problem Noted Date Resolved Date Other pancytopenia 01/01/2020 03/27/2020 Transition of care performed with sharing of clinical summary 04/30/2019 03/27/2020 Overview: Indication for Surgery: Prosthetic aortic valve endocarditis Preop LVEF: 75% RVF: Normal Postop LVEF: Normal RVF: Normal Cath: mild non obsx CAD Cards: [facility] EKG: NSR w/ 1st degree Important/Relevant PMH/PSH: 73F from [facility] with GERD, depression, HTN, gastric bypass, PUD [...] lasix - Dispo: 73 yo female from [place]. Daughter can help. SW following. PT/OT [...] issues 04/30/20192019 Overview: 73 yo female from [place]. Daughter can help. SW following. PT/OT [...] Surgical prep: Yes SIGNATURE: Myrna Car RN BOAT RENTAL CLERK.INDUSTRIAL WASTE TREATMENT TECHNICIAN DATE of SERVICE: 04/19/2019 TIME of SERVICE: [...] of this encounter (statuses as of 01/12/2022) [facility] History of Past illness Narrative* Problem Noted Date Resolved Date Other pancytopenia 01/01/2020 03/27/2020 Transition of care performed with sharing of clinical summary 04/30/2019 03/27/2020 Overview: Indication for Surgery: Prosthetic aortic valve endocarditis Preop LVEF: 75% RVF: Normal Postop LVEF: Normal RVF: Normal Cath: mild non [facility]x [facility] w/ 1st degree Important/Relevant PMH/PSH: 73F from [place] with GERD, depression, HTN, gastric bypass, [...] lasix - Dispo: 73 yo female from [place]. Daughter can help. SW following. PT/OT [...] issues 04/30/20192019 Overview: 73 yo female from [place]. Daughter can help. SW following. PT/OT [...] Date of surgery: 04/22 Re[facility] for delay[facility] Surgeon: [...] No Cardiac Surgical prep: Yes SIGNATURE: Myrna aCr RN BOAT RENTAL CLERK.INDUSTRIAL WASTE TREATMENT TECHNICIAN DATE of SERVICE: 04/19/2019 TIME of SERVICE: [...] of this encounter (statuses as of 01/25/2022) [facility] History of Past illness Narrative* Problem Noted Date Resolved Date Other pancytopenia 01/01/2020 03/27/2020 Transition of care performed with sharing of clinical summary 04/30/2019 03/27/2020 Overview: Indication for Surgery: Prosthetic aortic valve endocarditis Preop LVEF: 75% RVF: Normal Postop LVEF: Normal RVF: Normal Cath: mild non obsx CAD Cards: [facility] EKG: NSR w/ 1st degree Important/Relevant PMH/PSH: 73F from [facility] with GERD, depression, HTN, gastric bypass, PUD [...] lasix - Dispo: 73 yo female from [place]. Daughter can help. SW following. PT/OT [...] issues 04/30/20192019 Overview: 73 yo female from [place]. Daughter can help. SW following. PT/OT [...] Surgical prep: Yes SIGNATURE: Myrna Car RN BOAT RENTAL CLERK.INDUSTRIAL WASTE TREATMENT TECHNICIAN DATE of SERVICE: 04/19/2019 TIME of SERVICE: [...] of this encounter (statuses as of 02/02/2022) [facility] History of Past illness Narrative* Problem Noted Date Resolved Date Other pancytopenia 01/01/2020 03/27/2020 Transition of care performed with sharing of clinical summary 04/30/2019 03/27/2020 Overview: Indication for Surgery: Prosthetic aortic valve endocarditis Preop LVEF: 75% RVF: Normal Postop LVEF: Normal RVF: Normal Cath: mild non obsx CAD Cards: [facility] EKG: NSR w/ 1st degree Important/Relevant PMH/PSH: 73F from [facility] with GERD, depression, HTN, gastric bypass, PUD [...] lasix - Dispo: 73 yo female from [place]. Daughter can help. SW following. PT/OT [...] issues 04/30/20192019 Overview: 73 yo female from [place]. Daughter can help. SW following. PT/OT [...] Surgical prep: Yes SIGNATURE: Myrna Car RN BOAT RENTAL CLERK.INDUSTRIAL WASTE TREATMENT TECHNICIAN DATE of SERVICE: 04/19/2019 TIME of SERVICE: [...] of this encounter (statuses as of 02/21/2022) [facility] History of Past illness Narrative* Problem Noted Date Resolved Date Other pancytopenia 01/01/2020 03/27/2020 Transition of care performed with sharing of clinical summary 04/30/2019 03/27/2020 Overview: Indication for Surgery: Prosthetic aortic valve endocarditis Preop LVEF: 75% RVF: Normal Postop LVEF: Normal RVF: Normal Cath: mild non obsx CAD Cards: [facility] EKG: NSR w/ 1st degree Important/Relevant PMH/PSH: 73F from [facility] with GERD, depression, HTN, gastric bypass, PUD [...] placed 04/30. CoPat started. Continue Ceftriaxone through 12/30. Post-op echo completed 04/26: EF 75%, trace Mr, trivial-small pericardial effusion. - s/p PPM: Device check completed 04/30. - FVO: Up 3.7kg. Continue lasix - Dispo: 73 yo female from [place]. Daughter can help. SW following. PT/OT [...] issues 04/30/20192019 Overview: 73 yo female from [place]. Daughter can help. SW following. PT/OT [...] Surgical prep: Yes SIGNATURE: Myrna Car RN BOAT RENTAL CLERK.INDUSTRIAL WASTE TREATMENT TECHNICIAN DATE of SERVICE: 04/19/2019 TIME of SERVICE: [...] of this encounter (statuses as of 02/22/2022) [facility] History of Past illness Narrative* Problem Noted Date Resolved Date Other pancytopenia 01/01/2020 03/27/2020 Transition of care performed with sharing of clinical summary 04/30/2019 03/27/2020 Overview: Indication for Surgery: Prosthetic aortic valve endocarditis Preop LVEF: 75% RVF: Normal Postop LVEF: Normal RVF: Normal Cath: mild non obsx CAD Cards: [facility] EKG: NSR w/ 1st degree Important/Relevant PMH/PSH: 73F from [facility] with GERD, depression, HTN, gastric bypass, PUD [...] lasix - Dispo: 73 yo female from [place]. Daughter can help. SW following. PT/OT [...] issues 04/30/20192019 Overview: 73 yo female from [place]. Daughter can help. SW following. PT/OT [...] Surgical prep: Yes SIGNATURE: Myrna Car RN BOAT RENTAL CLERK.INDUSTRIAL WASTE TREATMENT TECHNICIAN DATE of SERVICE: 04/19/2019 TIME of SERVICE: [...] of this encounter (statuses as of 03/01/2022) [facility] History of Past illness Narrative* Problem Noted Date Resolved Date Other pancytopenia 01/01/2020 03/27/2020 Transition of care performed with sharing of clinical summary 04/30/2019 03/27/2020 Overview: Indication for Surgery: Prosthetic aortic valve endocarditis Preop LVEF: 75% RVF: Normal Postop LVEF: Normal RVF: Normal Cath: mild non obsx CAD Cards: [facility] EKG: NSR w/ 1st degree Important/Relevant PMH/PSH: 73F from [facility] with GERD, depression, HTN, gastric bypass, PUD [...] lasix - Dispo: 73 yo female from [place]. Daughter can help. SW following. PT/OT [...] issues 04/30/20192019 Overview: 73 yo female from [place]. Daughter can help. SW following. PT/OT [...] Surgical prep: Yes SIGNATURE: Myrna Car RN BOAT RENTAL CLERK.INDUSTRIAL WASTE TREATMENT TECHNICIAN DATE of SERVICE: 04/19/2019 TIME of SERVICE: [...] of this encounter (statuses as of 03/05/2022) [facility] History of Past illness Narrative* Problem Noted Date Resolved Date Other pancytopenia 01/01/2020 03/27/2020 Transition of care performed with sharing of clinical summary 04/30/2019 03/27/2020 Overview: Indication for Surgery: Prosthetic aortic valve endocarditis Preop LVEF: 75% RVF: Normal Postop LVEF: Normal RVF: Normal Cath: mild non obsx CAD Cards: [facility] EKG: NSR w/ 1st degree Important/Relevant PMH/PSH: 73F from [place] with GERD, depression, HTN, gastric bypass, [...] lasix - Dispo: 73 yo female from [place]. Daughter can help. SW following. PT/OT [...] issues 04/30/20192019 Overview: 73 yo female from [place]. Daughter can help. SW following. PT/OT [...] Surgical prep: Yes SIGNATURE: Myrna Car RN BOAT RENTAL CLERK.INDUSTRIAL WASTE TREATMENT TECHNICIAN DATE of SERVICE: 04/19/2019 TIME of SERVICE: [...] of this encounter (statuses as of 03/15/2022) [facility] History of Past illness Narrative* Problem Noted Date Resolved Date Other pancytopenia 01/01/2020 03/27/2020 Transition of care performed with sharing of clinical summary 04/30/2019 03/27/2020 Overview: Indication for Surgery: Prosthetic aortic valve endocarditis Preop LVEF: 75% RVF: Normal Postop LVEF: Normal RVF: Normal Cath: mild non obsx CAD Cards: [facility] EKG: NSR w/ 1st degree Important/Relevant PMH/PSH: 73F from [facility] with GERD, depression, HTN, gastric bypass, PUD [...] lasix - Dispo: 73 yo female from [place]. Daughter can help. SW following. PT/OT [...] issues 04/30/20192019 Overview: 73 yo female from [place]. Daughter can help. SW following. PT/OT rec home PT/OT; [facility] for IV antibiotics. Face-to face [...] Surgical prep: Yes SIGNATURE: Myrna Car RN BOAT RENTAL CLERK.INDUSTRIAL WASTE TREATMENT TECHNICIAN DATE of SERVICE: 04/19/2019 TIME of SERVICE: [...] of this encounter (statuses as of 03/15/2022) [facility] History of Past illness Narrative* Problem Noted Date Resolved Date Other pancytopenia 01/01/2020 03/27/2020 Transition of care performed with sharing of clinical summary 04/30/2019 03/27/2020 Overview: Indication for Surgery: Prosthetic aortic valve endocarditis Preop LVEF: 75% RVF: Normal Postop LVEF: Normal RVF: Normal Cath: mild non obsx CAD Cards: [facility] EKG: NSR w/ 1st degree Important/Relevant PMH/PSH: 73F from [facility] with GERD, depression, HTN, gastric bypass, PUD [...] lasix - Dispo: 73 yo female from [place]. Daughter can help. SW following. PT/OT [...] issues 04/30/20192019 Overview: 73 yo female from [place]. Daughter can help. SW following. PT/OT [...] Surgical prep: Yes SIGNATURE: Myrna Car RN BOAT RENTAL CLERK.INDUSTRIAL WASTE TREATMENT TECHNICIAN DATE of SERVICE: 04/19/2019 TIME of SERVICE: [...] of this encounter (statuses as of 03/22/2022) [facility] History of Past illness Narrative* Problem Noted Date Resolved Date Other pancytopenia 01/01/2020 03/27/2020 Transition of care performed with sharing of clinical summary 04/30/2019 03/27/2020 Overview: Indication for Surgery: Prosthetic aortic valve endocarditis Preop LVEF: 75% RVF: Normal Postop LVEF: Normal RVF: Normal Cath: mild non obsx CAD Cards: [facility] EKG: NSR w/ 1st degree Important/Relevant PMH/PSH: 73F from [facility] with GERD, depression, HTN, gastric bypass, PUD [...] lasix - Dispo: 73 yo female from [place]. Daughter can help. SW following. PT/OT [...] issues 04/30/20192019 Overview: 73 yo female from [place] Daughter can help. SW following. PT/OT [...] Surgical prep: Yes SIGNATURE: Myrna Car RN BOAT RENTAL CLERK.INDUSTRIAL WASTE TREATMENT TECHNICIAN DATE of SERVICE: 04/19/2019 TIME of SERVICE: [...] of this encounter (statuses as of 04/05/2022) [facility] Diagnosis Bronchitis- Primary Bronchitis, not specified as acute or chronic [facility] Diagnosis 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 Other vitamin B12 deficiency anemia [facility] Diagnosis Status post revision of total replacement of left knee- Primary [facility] Diagnosis Edema of knee- Primary Acute pain of left knee History of infection Personal history of unspecified infectious and parasitic disease [facility] Diagnosis Onset Date Resolution Status GI bleed acute [facility] Work Phone: Evaluation note* Diagnosis Other fatigue- Primary Dark stools Nonspecific abnormal finding in stool contents History of GI bleed Personal history of other diseases of digestive system [facility] Diagnosis Anemia, unspecified type- Primary [facility] Diagnosis 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 Other vitamin B12 deficiency anemia [facility] Diagnosis Status post knee surgery- Primary Other postprocedural status Status post revision of total replacement of left knee [facility] Diagnosis 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 Other vitamin B12 deficiency anemia Iron 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 Copper deficiency Disorders of copper metabolism [facility] Diagnosis Dark stools- Primary Nonspecific abnormal finding in stool contents History of UTI Personal history of urinary (tract) infection Memory deficit Memory loss Stage 3 chronic kidney disease, unspecified whether stage 3a or 3b CKD (HCC) Medication monitoring encounter Encounter for therapeutic drug monitoring Hyperlipidemia, unspecified hyperlipidemia type [facility] Diagnosis 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 Other vitamin B12 deficiency anemia Iron 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 Other vitamin B12 deficiency anemia Copper deficiency Disorders of copper metabolism [facility] Diagnosis Function kidney decreased- Primary Unspecified disorder of kidney and ureter Leg swelling Swelling of limb [facility] Diagnosis Need for vaccination- Primary Need for prophylactic vaccination and inoculation against unspecified single disease [facility] Diagnosis 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 Other vitamin B12 deficiency anemia [facility] Diagnosis 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 Other vitamin B12 deficiency anemia [facility] Diagnosis Hyperlipidemia, mixed- Primary Mixed hyperlipidemia S/P AVR Heart valve replaced by other means Complete heart block (HCC) Atrioventricular block, complete History of endocarditis Personal history of other diseases of circulatory system Memory deficit Memory loss Stage 3 chronic kidney disease, unspecified whether stage 3a or 3b CKD (HCC) Pacemaker Cardiac pacemaker in situ [facility] Diagnosis 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 Other vitamin B12 deficiency anemia [facility] Diagnosis 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 Other vitamin B12 deficiency anemia [facility] Diagnosis Complete heart block (HCC)- Primary Atrioventricular block, complete History of endocarditis Personal history of other diseases of circulatory system [facility] Diagnosis 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 Other vitamin B12 deficiency anemia [facility] Diagnosis Iron 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- Primary Copper deficiency Disorders of copper metabolism [facility] Diagnosis Hyperlipidemia, mixed Mixed hyperlipidemia S/P AVR Heart valve replaced by other means Complete heart block (HCC) Atrioventricular block, complete History of endocarditis Personal history of other diseases of circulatory system Memory deficit Memory loss Stage 3 chronic kidney disease, unspecified whether stage 3a or 3b CKD (HCC) [facility] Diagnosis Leg swelling Swelling of limb [facility] Diagnosis 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 Other vitamin B12 deficiency anemia [facility] Diagnosis Leg swelling Swelling of limb [facility] Diagnosis 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 Other vitamin B12 deficiency anemia [facility] Diagnosis Status post revision of total replacement of left knee- Primary [facility] Diagnosis Left knee pain, unspecified chronicity- Primary Status post revision of total replacement of left knee [facility] Diagnosis 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 Other vitamin B12 deficiency anemia Iron 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 [facility] Diagnosis Status post knee surgery Other postprocedural status [facility] Diagnosis Infection and inflammatory reaction due to internal left knee prosthesis, subsequent encounter [facility]* Diagnosis Status post revision of total replacement of left knee documented [facility] this encounter [facility] noteNo assessment information [facility]WGal[facility] Work Phone: Evaluation note* Diagnosis 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 Other vitamin B12 deficiency anemia Iron 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 [facility] Diagnosis Medicare annual wellness visit, subsequent- Primary Routine general medical examination at a health care facility Gastroesophageal reflux disease without esophagitis Esophageal reflux Essential hypertension Unspecified essential hypertension Recurrent major depressive disorder, in partial remission (HCC) Overactive bladder Hypertonicity of bladder 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 Screening for osteoporosis [...] legs syndrome (RLS) 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 Nonrheumatic mitral valve [...] to internal left knee prosthesis, initial encounter ([facility]) Nonrheumatic aortic valve insufficiency Aortic valve disorders Nonrheumatic mitral valve regurgitation Complete heart block (HCC) Atrioventricular block, complete 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 History of endocarditis [...] to internal left knee prosthesis, initial encounter ([facility]) Restless legs syndrome Restless legs syndrome (RLS) Complete heart block (HCC) Atrioventricular block, complete 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 History of endocarditis [...] of left knee [facility] Diagnosis Medicare annual wellness visit, subsequent- Primary Routine general medical examination at a health care facility Gastroesophageal reflux disease without esophagitis Esophageal reflux Essential hypertension Unspecified essential hypertension Recurrent major depressive disorder, in partial remission (HCC) Overactive bladder Hypertonicity of bladder 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 Screening for osteoporosis [...] legs syndrome (RLS) 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 Nonrheumatic mitral valve [...] to internal left knee prosthesis, initial encounter ([facility]) Nonrheumatic aortic valve insufficiency Aortic valve disorders Nonrheumatic mitral valve regurgitation Complete heart block (HCC) Atrioventricular block, complete 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 History of endocarditis [...] to internal left knee prosthesis, initial encounter ([facility]) Restless legs syndrome Restless legs syndrome (RLS) Complete heart block (HCC) Atrioventricular block, complete 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 History of endocarditis [...] fall Unspecified fall [facility] Diagnosis Medicare annual wellness visit, subsequent- Primary Routine general medical examination at a health care facility Gastroesophageal reflux disease without esophagitis Esophageal reflux Essential hypertension Unspecified essential hypertension Recurrent major depressive disorder, in partial remission (HCC) Overactive bladder Hypertonicity of bladder 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 Screening for osteoporosis [...] legs syndrome (RLS) 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 Nonrheumatic mitral valve [...] to internal left knee prosthesis, initial encounter ([facility]) Nonrheumatic aortic valve insufficiency Aortic valve disorders Nonrheumatic mitral valve regurgitation Complete heart block (HCC) Atrioventricular block, complete 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 History of endocarditis [...] to internal left knee prosthesis, initial encounter ([facility]) Pre-operative examination- Primary Preoperative examination, unspecified Infection and inflammatory reaction due to internal left knee prosthesis, initial encounter ([facility]) Restless legs syndrome Restless legs syndrome (RLS) Complete heart block ([facility]) Atrioventricular block, complete 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 History of endocarditis [...] deficit [facility] Diagnosis Medicare annual wellness visit, subsequent- Primary Routine general medical examination at a health care facility Gastroesophageal reflux disease without esophagitis Esophageal reflux Essential hypertension Unspecified essential hypertension Recurrent major depressive disorder, in partial remission ([facility]) Overactive bladder Hypertonicity of bladder 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 Screening for osteoporosis [...] legs syndrome (RLS) 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 Nonrheumatic mitral valve [...] to internal left knee prosthesis, initial encounter ([facility]) Nonrheumatic aortic valve insufficiency Aortic valve disorders Nonrheumatic mitral valve regurgitation Complete heart block (HCC) Atrioventricular block, complete 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 History of endocarditis Personal history of other diseases of circulatory system Restless legs syndrome Restless legs syndrome (RLS) Gastroesophageal reflux disease without esophagitis Esophageal reflux Gastrointestinal hemorrhage associated with duodenal ulcer Iron malabsorption Other specified intestinal malabsorption Overactive bladder Hypertonicity of bladder Stage 3 chronic kidney disease, unspecified whether stage 3a or 3b CKD ([facility]) Megaloblastic anemia due to vitamin B12 deficiency Other vitamin B12 deficiency anemia Iron 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 Recurrent major depression in partial remission ([facility]) Major depressive disorder, recurrent episode, in partial or unspecified remission Anxiety Anxiety state, unspecified Memory deficit Memory loss History of UTI Personal history of urinary (tract) infection Pre-operative examination- Primary Preoperative examination, unspecified Infection and inflammatory reaction due to internal left knee prosthesis, initial encounter ([facility]) Restless legs syndrome Restless legs syndrome (RLS) Complete heart block (HCC) Atrioventricular block, complete 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 History of endocarditis [...] deficit [facility] loss [facility] Diagnosis Medicare annual wellness visit, subsequent- Primary Routine general medical examination at a health care facility Gastroesophageal reflux disease without esophagitis Esophageal reflux Essential hypertension Unspecified essential hypertension Recurrent major depressive disorder, in partial remission (HCC) Overactive bladder Hypertonicity of bladder 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 Screening for osteoporosis [...] legs syndrome (RLS) 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 Nonrheumatic mitral valve [...] to internal left knee prosthesis, initial encounter ([facility]) Nonrheumatic aortic valve insufficiency Aortic valve disorders Nonrheumatic mitral valve regurgitation Complete heart block (HCC) Atrioventricular block, complete 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 History of endocarditis Personal history of other diseases of circulatory system Restless legs syndrome Restless legs syndrome (RLS) Gastroesophageal reflux disease without esophagitis Esophageal reflux Gastrointestinal hemorrhage associated with duodenal ulcer Iron malabsorption Other specified intestinal malabsorption Overactive bladder Hypertonicity of bladder Stage 3 chronic kidney disease, unspecified whether stage 3a or 3b CKD ([facility]) Megaloblastic anemia due to vitamin B12 deficiency Other vitamin B12 deficiency anemia Iron 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 Recurrent major depression in partial remission ([facility]) Major depressive disorder, recurrent episode, in partial or unspecified remission Anxiety Anxiety state, unspecified Memory deficit Memory loss History of UTI Personal history of urinary (tract) infection Pre-operative examination- Primary Preoperative examination, unspecified Infection and inflammatory reaction due to internal left knee prosthesis, initial encounter ([facility]) Restless legs syndrome Restless legs syndrome (RLS) Complete heart block (HCC) Atrioventricular block, complete 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 History of endocarditis Personal history of other diseases of circulatory system Nonrheumatic aortic valve insufficiency Aortic valve disorders Nonrheumatic mitral valve regurgitation Gastroesophageal reflux disease without esophagitis Esophageal reflux Gastrointestinal hemorrhage associated with duodenal ulcer Iron malabsorption Other specified intestinal malabsorption Overactive bladder Hypertonicity of bladder Stage 3 chronic kidney disease, unspecified whether stage 3a or 3b CKD ([facility]) Megaloblastic anemia due to vitamin B12 deficiency Other vitamin B12 deficiency anemia Recurrent major depression in partial remission ([facility]) Major depressive disorder, recurrent episode, in partial or unspecified remission Anxiety Anxiety state, unspecified Memory deficit Memory loss Anemia due to stage 3b chronic kidney disease (HCC) ([facility])- Primary History of gastric bypass Bariatric surgery status Iron malabsorption Other specified intestinal malabsorption [facility] Diagnosis Medicare annual wellness visit, subsequent- Primary Routine general medical examination at a health care facility Gastroesophageal reflux disease without esophagitis Esophageal reflux Essential hypertension Unspecified essential hypertension Recurrent major depressive disorder, in partial remission ([facility]) Overactive bladder Hypertonicity of bladder 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 Screening for osteoporosis [...] legs syndrome (RLS) 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 Nonrheumatic mitral valve [...] Atrioventricular block, complete 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 History of endocarditis [...] to internal left knee prosthesis, initial encounter ([facility]) Restless legs syndrome Restless legs syndrome (RLS) Complete heart block ([facility]) Atrioventricular block, complete 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 History of endocarditis Personal history of other diseases of circulatory system Nonrheumatic aortic valve insufficiency Aortic valve disorders Nonrheumatic mitral valve regurgitation Gastroesophageal reflux disease without esophagitis Esophageal reflux Gastrointestinal hemorrhage associated with duodenal ulcer Iron malabsorption Other specified intestinal malabsorption Overactive bladder Hypertonicity of bladder Stage 3 chronic kidney disease, unspecified whether stage 3a or 3b CKD ([facility]) Megaloblastic anemia due to vitamin B12 deficiency Other vitamin B12 deficiency anemia Recurrent major depression in partial remission ([facility]) Major depressive disorder, recurrent episode, in partial or unspecified remission Anxiety Anxiety state, unspecified Memory deficit Memory loss Anemia due to stage 3b chronic kidney disease ([facility]) ([facility])- Primary History of gastric bypass Bariatric surgery status Iron malabsorption Other specified intestinal malabsorption [facility] Diagnosis Medicare annual wellness visit, subsequent- Primary Routine general medical examination at a health care facility Gastroesophageal reflux disease without esophagitis Esophageal reflux Essential hypertension Unspecified essential hypertension Recurrent major depressive disorder, in partial remission ([facility]) Overactive bladder Hypertonicity of bladder 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 Screening for osteoporosis [...] legs syndrome (RLS) 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 Nonrheumatic mitral valve regurgitation Nonrheumatic aortic valve insufficiency Aortic valve disorders Complete heart block (HCC) Atrioventricular block, complete Gastroesophageal reflux disease without esophagitis Esophageal reflux Gastrointestinal hemorrhage associated with duodenal ulcer Overactive bladder Hypertonicity of bladder Stage 3 chronic kidney disease ([facility]) Iron deficiency anemia, unspecified iron deficiency anemia type Anxiety Anxiety state, unspecified Memory deficit Memory loss S/P AVR- Primary Heart valve replaced by other means Infection and inflammatory reaction due to internal left knee prosthesis, initial encounter ([facility]) Nonrheumatic aortic valve insufficiency Aortic valve disorders Nonrheumatic mitral valve regurgitation Complete heart block (HCC) Atrioventricular block, complete 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 History of endocarditis Personal history of other diseases of circulatory system Restless legs syndrome Restless legs syndrome (RLS) Gastroesophageal reflux disease without esophagitis Esophageal reflux Gastrointestinal hemorrhage associated with duodenal ulcer Iron malabsorption Other specified intestinal malabsorption Overactive bladder Hypertonicity of bladder Stage 3 chronic kidney disease, unspecified whether stage 3a or 3b CKD ([facility]) Megaloblastic anemia due to vitamin B12 deficiency Other vitamin B12 deficiency anemia Iron 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 Recurrent major depression in partial remission ([facility]) Major depressive disorder, recurrent episode, in partial or unspecified remission Anxiety Anxiety state, unspecified Memory deficit Memory loss History of UTI Personal history of urinary (tract) infection Pre-operative examination- Primary Preoperative examination, unspecified Infection and inflammatory reaction due to internal left knee prosthesis, initial encounter ([facility]) Restless legs syndrome Restless legs syndrome (RLS) Complete heart block (HCC) Atrioventricular block, complete 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 History of endocarditis [...] specified intestinal malabsorption [facility] Diagnosis Medicare annual wellness visit, subsequent- Primary Routine general medical examination at a health care facility Gastroesophageal reflux disease without esophagitis Esophageal reflux Essential hypertension Unspecified essential hypertension Recurrent major depressive disorder, in partial remission (HCC) Overactive bladder Hypertonicity of bladder 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 Screening for osteoporosis [...] legs syndrome (RLS) 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 Nonrheumatic mitral valve [...] to internal left knee prosthesis, initial encounter ([facility]) Nonrheumatic aortic valve insufficiency Aortic valve disorders Nonrheumatic mitral valve regurgitation Complete heart block (HCC) Atrioventricular block, complete 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 History of endocarditis Personal history of other diseases of circulatory system Restless legs syndrome Restless legs syndrome (RLS) Gastroesophageal reflux disease without esophagitis Esophageal reflux Gastrointestinal hemorrhage associated with duodenal ulcer Iron malabsorption Other specified intestinal malabsorption Overactive bladder Hypertonicity of bladder Stage 3 chronic kidney disease, unspecified whether stage 3a or 3b CKD ([facility]) Megaloblastic anemia due to vitamin B12 deficiency Other vitamin B12 deficiency anemia Iron 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 Recurrent major depression in partial remission ([facility]) Major depressive disorder, recurrent episode, in partial or unspecified remission Anxiety Anxiety state, unspecified Memory deficit Memory loss History of UTI Personal history of urinary (tract) infection Pre-operative examination- Primary Preoperative examination, unspecified Infection and inflammatory reaction due to internal left knee prosthesis, initial encounter ([facility]) Restless legs syndrome Restless legs syndrome (RLS) Complete heart block (HCC) Atrioventricular block, complete 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 History of endocarditis Personal history of other diseases of circulatory system Nonrheumatic aortic valve insufficiency Aortic valve disorders Nonrheumatic mitral valve regurgitation Gastroesophageal reflux disease without esophagitis Esophageal reflux Gastrointestinal hemorrhage associated with duodenal ulcer Iron malabsorption Other specified intestinal malabsorption Overactive bladder Hypertonicity of bladder Stage 3 chronic kidney disease, unspecified whether stage 3a or 3b CKD ([facility]) Megaloblastic anemia due to vitamin B12 deficiency Other vitamin B12 deficiency anemia Recurrent major depression in partial remission ([facility]) Major depressive disorder, recurrent episode, in partial or unspecified remission Anxiety Anxiety state, unspecified Memory deficit Memory loss Anemia due to stage 3b chronic kidney disease (HCC) ([facility])- Primary History of gastric bypass Bariatric surgery status Iron malabsorption Other specified intestinal malabsorption [facility] Diagnosis Medicare annual wellness visit, subsequent- Primary Routine general medical examination at a health care facility Gastroesophageal reflux disease without esophagitis Esophageal reflux Essential hypertension Unspecified essential hypertension Recurrent major depressive disorder, in partial remission ([facility]) Overactive bladder Hypertonicity of bladder 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 Screening for osteoporosis [...] legs syndrome (RLS) 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 Nonrheumatic mitral valve [...] Atrioventricular block, complete 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 History of endocarditis [...] to internal left knee prosthesis, initial encounter ([facility]) Restless legs syndrome Restless legs syndrome (RLS) Complete heart block ([facility]) Atrioventricular block, complete 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 History of endocarditis Personal history of other diseases of circulatory system Nonrheumatic aortic valve insufficiency Aortic valve disorders Nonrheumatic mitral valve regurgitation Gastroesophageal reflux disease without esophagitis Esophageal reflux Gastrointestinal hemorrhage associated with duodenal ulcer Iron malabsorption Other specified intestinal malabsorption Overactive bladder Hypertonicity of bladder Stage 3 chronic kidney disease, unspecified whether stage 3a or 3b CKD ([facility]) Megaloblastic anemia due to vitamin B12 deficiency Other vitamin B12 deficiency anemia Recurrent major depression in partial remission ([facility]) Major depressive disorder, recurrent episode, in partial or unspecified remission Anxiety Anxiety state, unspecified Memory deficit Memory loss Anemia due to stage 3b chronic kidney disease (HCC) ([facility])- Primary History of gastric bypass Bariatric surgery status Iron malabsorption Other specified intestinal malabsorption [facility] Diagnosis Medicare annual wellness visit, subsequent- Primary Routine general medical examination at a health care facility Gastroesophageal reflux disease without esophagitis Esophageal reflux Essential hypertension Unspecified essential hypertension Recurrent major depressive disorder, in partial remission ([facility]) Overactive bladder Hypertonicity of bladder 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 Screening for osteoporosis [...] legs syndrome (RLS) 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 Nonrheumatic mitral valve [...] to internal left knee prosthesis, initial encounter ([facility]) Nonrheumatic aortic valve insufficiency Aortic valve disorders Nonrheumatic mitral valve regurgitation Complete heart block (HCC) Atrioventricular block, complete 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 History of endocarditis Personal history of other diseases of circulatory system Restless legs syndrome Restless legs syndrome (RLS) Gastroesophageal reflux disease without esophagitis Esophageal reflux Gastrointestinal hemorrhage associated with duodenal ulcer Iron malabsorption Other specified intestinal malabsorption Overactive bladder Hypertonicity of bladder Stage 3 chronic kidney disease, unspecified whether stage 3a or 3b CKD ([facility]) Megaloblastic anemia due to vitamin B12 deficiency Other vitamin B12 deficiency anemia Iron 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 Recurrent major depression in partial remission ([facility]) Major depressive disorder, recurrent episode, in partial or unspecified remission Anxiety Anxiety state, unspecified Memory deficit Memory loss History of UTI Personal history of urinary (tract) infection Pre-operative examination- Primary Preoperative examination, unspecified Infection and inflammatory reaction due to internal left knee prosthesis, initial encounter ([facility]) Restless legs syndrome Restless legs syndrome (RLS) Complete heart block (HCC) Atrioventricular block, complete 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 History of endocarditis [...] specified intestinal malabsorption [facility] Diagnosis Medicare annual wellness visit, subsequent- Primary Routine general medical examination at a health care facility Gastroesophageal reflux disease without esophagitis Esophageal reflux Essential hypertension Unspecified essential hypertension Recurrent major depressive disorder, in partial remission (HCC) Overactive bladder Hypertonicity of bladder 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 Screening for osteoporosis [...] legs syndrome (RLS) 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 Nonrheumatic mitral valve [...] to internal left knee prosthesis, initial encounter ([facility]) Nonrheumatic aortic valve insufficiency Aortic valve disorders Nonrheumatic mitral valve regurgitation Complete heart block (HCC) Atrioventricular block, complete 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 History of endocarditis [...] intake Recurrent major depression in partial remission ([facility]) Major depressive disorder, recurrent episode, in partial or unspecified remission Anxiety Anxiety state, unspecified Memory deficit Memory loss History of UTI Personal history of urinary (tract) infection Pre-operative examination- Primary Preoperative examination, unspecified Infection and inflammatory reaction due to internal left knee prosthesis, initial encounter ([facility]) Restless legs syndrome Restless legs syndrome (RLS) Complete heart block (HCC) Atrioventricular block, complete 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 History of endocarditis [...] to stage 3b chronic kidney disease (HCC) ([facility]) History of gastric bypass Bariatric surgery status Iron malabsorption Other specified intestinal malabsorption [facility] Diagnosis Medicare annual wellness visit, subsequent- Primary Routine general medical examination at a health care facility Gastroesophageal reflux disease without esophagitis Esophageal reflux Essential hypertension Unspecified essential hypertension Recurrent major depressive disorder, in partial remission Overactive bladder Hypertonicity of bladder 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 Screening for osteoporosis [...] legs syndrome (RLS) 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 Nonrheumatic mitral valve [...] Atrioventricular block, complete 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 History of endocarditis [...] Atrioventricular block, complete 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 History of endocarditis [...] B12 deficiency anemia [facility] Author Dr. Kimball [facility] August 19, 2022 3:27pm Note Date/Time August 19, 2022 3:2 7pm [facility] Medical Records Department [address] [place] [address] H&P Exam - Hospitalist 08/19/22 1514 MR#: [id number] Acct: [id number] Name: MAIA NIETO Rep #:[id number] : 1945 77 From: Prabhakar greenberg MD PCP: Dr. Clau Baca MD Status:ADM I NO Location: [place] [id number] HPI - General General Date of [...] it was a week ago at 2.19. [facility] Medical History Anxiety CAD (coronary artery [...] 74.5 H, Lymph % (Auto) 12.0 L, [place] % (Auto) 10.7 H, Eos % (Auto) [...] Sl. Cloudy, Urine pH 6.0, Ur Specific [place] 1.010, Urine Protein Negative, Urine Glucose (UA) [...] DVT: SCDs Charges/Coding Visit Charges Inpatient E&M: 87010 Init Hosp L3 08/19/22 1527 <Electronically signed by Prabhakar Kimball MD> Cosigner Signature (if applicable): CC: Dr. Clau Baca MD; Dr. Prabhakar Kimball MD~ Signed [facility] Work Phone: Reason for referral (narrative)* Diagnostic Procedure Only (Routine) - Closed Specialty Diagnoses / Procedures Referred By Iraida cornelius Referred To Contact XR IMAGING Diagnoses Status post knee surgery Procedures XR KNEE POST OP 3V AP/LAT/MERCHANT LEFT RADIOLOGIC EXAMINATION KNEE 3 VIEWS Anatoly Brown, [address] [place] [address] Xr Imaging Referral ID Status Reason Start Date Expiration Date V isits Requested Visits Authorized [id number] Closed Auto-Generate d Referral 11/03/2021 12/03/2022 1 1 [facility] for referral (narrative)* Outpatient Procedure (Routine) - [...] SPEC&COLR D Avtar Hearn DO [address] [address] [facility] [place] [address] [place] [address] Referral ID Status Reason Start Date Expiration Date Visits Requested Visits Authorized [id number] Authorized Auto-Generat ed Referral 03/01/2022 03/01/2023 1 1 * Outpatient Procedure (Routine) - Closed Specialty Diagnoses / Procedures Referred By Contac t Referred To Contact [facility] [place] Diagnoses Hyperlipidemia, mixed S/P AVR Complete heart block (HCC) History of endocarditis Memory deficit Stage 3 chronic kidney disease, unspecified whether stage 3a or 3b CKD (HCC) Procedures ECG COMPLETE ECG ROUTINE ECG W/LEAST 12 LDS W/I&R Avtar Hearn DO [facility] [address] [address] [place] [id number] Referral ID Status Reason Start Date Expiration Date V isits Requested Visits Authorized [id number] Closed Auto-Generate d Referral 03/01/2022 03/01/2023 1 1 [facility] for referral (narrative)* Diagnostic Procedure Only (Routine) - Authorized Specialty Diagnoses / Procedures Referred By Iraida cornelius Referred To Contact XR IMAGING Diagnoses Status post revision of total replacement of left knee Procedures XR KNEE GENERAL 4V AP BOTH/PA BOTH/LAT/MERC LEFT RADIOLOGIC EXAM KNEE COMPLETE 4/MORE VIEWS Jeferson Thomas PA-C [address] [place] [id number] Xr Imaging Referral ID Status Reason Start Date Expiration Date Visits Requested Visits Authorized [id number] Authorized Auto-Generat ed Referral 11/02/2022 12/02/2023 1 1 [facility] for referral (narrative)* Diagnostic Procedure Only (Routine) - Closed Specialty Diagnoses / Procedures Referred By Iraida t Referred To Contact XR IMAGING Diagnoses Status post knee surgery Procedures XR KNEE POST OP 3V AP/LAT/MERCHANT LEFT RADIOLOGIC EXAMINATION KNEE 3 VIEWS Anatoly Brown, DO [address] [place] [address] [place] [address] Referral ID Status Reason Start Date Expiration Date V isits Requested Visits Authorized [id number] Closed Auto-Generate d Referral 11/03/2021 12/03/2022 1 1 [facility] for referral (narrative)* Diagnostic Procedure Only (Routine) - Closed Specialty Diagnoses / Procedures Referred By Contac t Referred To Contact XR IMAGING Diagnoses Infection and inflammatory reaction due to internal left knee prosthesis, subsequent encounter Procedures XR KNEE POST OP 3V AP/LAT/MERCHANT LT X-RAY KNEE 3+ VW Anatoly Brown, DO [address] [place] [address] Xr Imaging [facility] Referral ID Status Reason Start Date Expiration Date V isits Requested Visits Authorized [id number] Closed Auto-Generate d Referral 01/15/2021 02/14/2022 1 1 [facility] for referral (narrative)* Diagnostic Procedure Only (Routine) - Closed Specialty Diagnoses / Procedures Referred By Contac t Referred To Contact XR IMAGING Diagnoses Status post revision of total replacement of left knee Procedures XR FEMUR GENERAL 2V AP/LAT LT RADIOLOGIC EXAMINATION FEMUR MINIMUM 2 VIEWS Jeferson Thomas PA-C [address] [place] [address] [place] [address] Referral ID Status Reason Start Date Expiration Date V isits Requested Visits Authorized [id number] Closed Auto-Generate d Referral 03/12/2021 04/11/2022 1 1 * Diagnostic Procedure Only (Routine) - Closed Specialty Diagnoses / Procedures Referred By Contac t Referred To Contact XR IMAGING Diagnoses Status post revision of total replacement of left knee Procedures XR KNEE GENERAL 4V AP BOTH/PA BOTH/LAT/MERC LT KNEE AP-WGT/LAT/MERCHANT Jeferson Thomas PA-C [address] [place] [address] [place] [address] Referral ID Status Reason Start Date Expiration Date V isits Requested Visits Authorized [id number] Closed Auto-Generate d Referral 03/12/2021 04/11/2022 1 1 [facility] for referral (narrative)* Diagnostic Procedure Only (Routine) - Closed Specialty Diagnoses / Procedures Referred By Contac t Referred To Contact XR IMAGING Diagnoses Acute pain of left knee Edema of knee Status post fall Procedures XR KNEE GENERAL 4V AP BOTH/PA BOTH/LAT/MERC LEFT RADIOLOGIC EXAM KNEE COMPLETE 4/MORE VIEWS Eryn Elliott APRN.CNP [address] [place] [address] Xr Imaging [place] [address] Referral ID Status Reason Start Date Expiration Date V isits Requested Visits Authorized [id number] Closed Auto-Generate d Referral 10/21/2021 11/20/2022 1 1 [facility] for referral (narrative)No reason for referral information [facility]WGal[facility] Work Phone: Reason for visit Narrative* [...] SPEC&COLR D Avtar Hearn DO [address] [address] [facility] [place] [address] [place] [address] Referral ID Status Reason Start Date Expiration Date V isits Requested Visits Authorized [id number] Closed Auto-Generate d Referral 03/01/2022 03/01/2023 1 1 [facility] for visit Narrative* Diagnostic Procedure Only (Routine) - Closed Specialty Diagnoses / Procedures Referred By Contac t Referred To Contact XR IMAGING Diagnoses Status post knee surgery Procedures XR KNEE POST OP 3V AP/LAT/MERCHANT LEFT RADIOLOGIC EXAMINATION KNEE 3 VIEWS Anatoly Brown, DO [address] [place] [address] [place] [address] Referral ID Status Reason Start Date Expiration Date V isits Requested Visits Authorized [id number] Closed Auto-Generate d Referral 11/03/2021 12/03/2022 1 1 [facility] for visit Narrative* Diagnostic Procedure Only (Routine) - Closed Specialty Diagnoses / Procedures Referred By Contac t Referred To Contact XR IMAGING Diagnoses Status post revision of total replacement of left knee Procedures XR FEMUR GENERAL 2V AP/LAT LT RADIOLOGIC EXAMINATION FEMUR MINIMUM 2 VIEWS Jeferson Thomas PA-C [address] [place] [phone] [place] [address] Referral ID Status Reason Start Date Expiration Date V isits Requested Visits Authorized [id number] Closed Auto-Generate d Referral 03/12/2021 04/11/2022 1 1 [facility] for visit Narrative* Diagnostic Procedure Only (Routine) - Closed Specialty Diagnoses / Procedures Referred By Contac t Referred To Contact XR IMAGING Diagnoses Status post revision of total replacement of left knee Procedures XR KNEE GENERAL 4V AP BOTH/PA BOTH/LAT/MERC LEFT RADIOLOGIC EXAM KNEE COMPLETE 4/MORE VIEWS Jeferson Thomas PA-C [address] [place] [address] [place] [address] Referral ID Status Reason Start Date Expiration Date V isits Requested Visits Authorized [id number] Closed Auto-Generate d Referral 11/02/2022 12/02/2023 1 1 [facility] for visit Narrative* Diagnostic Procedure Only (Routine) - Closed Specialty Diagnoses / Procedures Referred By Contac t Referred To Contact XR IMAGING Diagnoses Acute pain of left knee Edema of knee Status post fall Procedures XR KNEE GENERAL 4V AP BOTH/PA BOTH/LAT/MERC LEFT RADIOLOGIC EXAM KNEE COMPLETE 4/MORE VIEWS Eryn Elliott APRN.INDUSTRIAL WASTE TREATMENT TECHNICIAN [address] [place] [address] [place] [address] Referral ID Status Reason Start Date Expiration Date V isits Requested Visits Authorized [id number] Closed Auto-Generate d Referral 10/21/2021 11/20/2022 1 1 [facility] Summary Purpose Family History No Family History Records Found Relationship Condition Age at Onset Recorded Date/T yolanda Not Specified Diabetes mellitus Unknown Hypertension Unknown Advance Directives No Advanced Directives Records FoundDocuments on File Type Date Recorded Patient Agency Manager Expl anation Advance Directive(s) 02/04/2021 2:17 PM Advance Directive(s) 10/30/2020 6:58 PM Advance Directive(s) 10/30/2020 7:04 PM Advance Directive(s) 10/28/2020 5:16 PM Advance Directive(s) 07/25/2019 9:18 AM Advance Directive(s) 04/10/2019 2:00 PM Advance Directive(s) 03/29/2019 7:26 AM Advance Directive(s) 03/04/2019 8:42 PM Advance Directive(s) 12/06/2018 4:45 PM Advance Directive Response Recorded Date/ Time Living Will Yes October 27, 2021 8 :01pm Power of Tenant Selector Yes October 27, 2021 8:01pm Advance Directive Response Recorded Date/ Time Name of Medical Power of Tenant Selector REYNA ARGUETA October 27, 2021 8:01pm Living Will No October 30, 2021 1 2:54pm Power of Tenant Selector No October 30, 2021 12:54pm Documents on File Type Date Recorded Patient Agency Manager Expl anation Advance Directive(s) 02/04/2021 2:17 PM Advance Directive(s) 10/30/2020 6:58 PM Advance Directive(s) 10/30/2020 7:04 PM Advance Directive(s) 10/28/2020 5:16 PM Advance Directive(s) 07/25/2019 9:18 AM Advance Directive(s) 04/10/2019 2:00 PM Advance Directive(s) 03/29/2019 7:26 AM Advance Directive(s) 03/04/2019 8:42 PM Advance Directive(s) 12/06/2018 4:45 PM Advance Directive Response Recorded Date/ Time Living Will Yes May 30, 12:27pm Power of Tenant Selector Yes May 30, 2022 12:27pm Name of Medical Power of Tenant Selector reyna May 30, 2022 12:27pm Advance Directive Response Recorded Date/ Time Name of Medical Power of Tenant Selector Reyna-daughter May 30, 2022 6:01pm Living Will Yes May 30 6:01pm Power of Tenant Selector Yes May 30, 2022 6:01pm Advance Directive Response Recorded Date/ Time Name of Medical Power of Tenant Selector Reyna-daughter May 30, 2022 6:01pm Name of Medical Power of Tenant Selector daughter August 12, 2022 6:05pm Living Will Yes August 12, 2022 6:05pm Power of Tenant Selector Yes August 12 6:05pm Advance Directive Response Recorded Date/ Time Name of Medical Power of Tenant Selector Reyna-daughter May 30, 2022 7:01pm Name of Medical Power of Tenant Selector daughter August 12, 2022 7:05pm Name of Medical Power of Tenant Selector daughter August 19, 2022 9:43am Living Will Yes August 19, 2022 9:43am Power of Tenant Selector Yes August 19 9:43am Advance Directive Response Recorded Date/ Time Name of Medical Power of Tenant Selector Reyna-daughter May 30, 2022 7:01pm Name of Medical Power of Tenant Selector daughter August 12, 2022 7:05pm Name of Medical Power of Tenant Selector daughter, Ezio n August 19, 2022 4:22pm Living Will Yes August 19, 2022 4:22pm Power of Tenant Selector Yes August 19 4:22pm Advance Directive Response Recorded Date/ Time Name of Medical Power of Tenant Selector Reyna-daughter May 30, 2022 7:01pm Name of Medical Power of Tenant Selector daughter August 12, 2022 7:05pm Name of Medical Power of Tenant Selector daughter, Ezio n August 19, 2022 4:22pm Living Will No September 12, 2022 4:30am Power of Tenant Selector No September 12 4:30am Advance Directive Response Recorded Date/ Time Living Will No September 12, 2022 3:30am Power of Tenant Selector No September 12 3:30am Advance Directive Response Recorded Date/ Time Living Will No September 12, 2022 4:30am Power of Tenant Selector No September 12 4:30am Procedure Findings Note HNO ID: [id number] Author: Gladys Connelly MD Service: Urology Author Type: Physician Type: Operative Report Filed: 07/25/2019 11:24 AM Note Text: UROLOGY SERVICE OPERATIVE NOTE LOG ID: [id number] Surgery/Procedure Date: 07/25/2019 Incision/Procedure Start Time: 10:15 AM Incision Close/Procedure End Time: 11:19 AM Patient Age: [age] year old Surgeon(s)/Proceduralist(s) and Property Investor(s): Surgeon(s) and Role: * Luis Connelly MD [...] (more content not included)... Note HNO ID: [id number] Author: Edmar Jiménez Service: ? Author Type: Nurse Banbury Operator Type: Anesthesia Procedure Notes Filed: 07/25/2019 10:13 AM Note Text: ANESTHESIOLOGY PROCEDURE NOTE Airway General Information Procedure Start Time/Medication Administration: 07/25/2019 10:06 AM Patient location during procedure: OR Staffing Anesthesiologist: Clara Jimenez PROJECT ENGINEER CHEMICALS: Andreia Jiménez Performed by: NEMESIO Indications and Patient Condition Preoxygenated: yes Patient position: sniffing Difficult Mask: No Indications for airway management: anesthesia anesthesia circuit Method: asleep Final Airway Details Final airway type: supraglottic airway Number of attempts at approach: 1 Final Supraglottic Airway: IGEL Size 3 Seal Adequate: yes Airway not difficult SIGNATURE: Andreia Jiménez APRN.NEMESIO PATIENT NAME: Maia Nieto DATE: July 25, 2019 TIME: 10:13 AM CSN: [id number] Note HNO ID: [id number] Author: Edmar gayle (Finisher Hand) Jessy Service: ? Author Type: Nurse Banbury Operator Type: Anesthesia Procedure Notes Filed: 07/25/2019 10:18 AM Note Text: ANESTHESIOLOGY PROCEDURE NOTE Airway General Information SIGNATURE: Andreia Jiménez APRN.CRNA PATIENT NAME: Maia Nieto DATE: July 25, 2019 TIME: 10:18 AM CSN: [id number] Medications Administered Section Inactive Administered Medications - [...] WEAKNESS AND DEBILITY WEAKNESS AND DEBILITY LABWORK ALF LAB WORK fall head injury Reason for Visit Debility Generalized weakness Acute hypotension Acute prerenal azotemia Acute renal failure superimposed on stage 3a chronic kidney disease Decreased oral intake Hypokalemia Melena Acute hypokalemia Acute hyponatremia Confusion Weakness Chief Complaint ALF LABWORK ALF LABWORK Chief Complaint ALF LAB WOR K Chief Complaint Admit Date ALF LAB WORK October 10, 2024 6:20 am Reason for Referral Specialty Diagnoses / Procedures Referred By Iraida cornelius Referred To Contact Cardiology Diagnoses Hyperlipidemia, unspecified hyperlipidemia type 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, sequela Procedures CONSULT TO CARDIOLOGY OFFICE/OUTPATIENT NEW HIGH MDM 60-74 MINUTES Older, JEOVANY Cerna.INDUSTRIAL WASTE TREATMENT TECHNICIAN [address] [place] [address] Referral ID Status Reason Start Date Expiration Date Visits Requested Visits Authorized [id number] Authorized PCP Requested Referral 01/10/2022 01/10/2023 1 [...] section and content) DATE CREATED AUTHOR 12/15/2018 [facility] ([place]) DATE CREATED AUTHOR AUTHOR'S ORGANIZ ATION 03/29/2019 [facility] DATE CREATED AUTHOR AUTHOR'S ORGANIZ ATION 07/31/2019 [facility] DATE CREATED AUTHOR AUTHOR'S ORGANIZ ATION 08/04/2024 [facility] DATE CREATED AUTHOR AUTHOR'S ORGANIZ ATION 12/02/2024 [facility] DATE CREATED AUTHOR AUTHOR'S ORGANIZ ATION 12/19/[address] [facility] DATE CREATED AUTHOR AUTHOR'S ORGANIZ ATION 04/05/2025 [facility] Source Comments (unrecognize d section and content) In the event this informatio n is protected by the Federal Confidentiality of Alcohol and Drug Abuse Patient Records regulations: The Federal rules restrict any use of the information to criminally investigate or prosecute any alcohol or drug abuse patient.[facility] the event this information is protected by the Federal Confidentiality of Alcohol and Drug Abuse Patient Records regulations: The Federal rules restrict any use of the information to criminally investigate or prosecute any alcohol or drug abuse patient.[facility]In the event this information is protected by the Federal Confidentiality of Alcohol and Drug Abuse Patient Records regulations: The Federal rules restrict any use of the information to criminally investigate or prosecute any alcohol or drug abuse patient.[facility]In the event this information is protected by the Federal Confidentiality of Alcohol and Drug Abuse Patient Records regulations: The Federal rules restrict any use of the information to criminally investigate or prosecute any alcohol or drug abuse patient.[facility]In the event this information is protected by the Federal Confidentiality of Alcohol and Drug Abuse Patient Records regulations: The Federal rules restrict any use of the information to criminally investigate or prosecute any alcohol or drug abuse patient.[facility]In the event this information is protected by the Federal Confidentiality of Alcohol and Drug Abuse Patient Records regulations: The Federal rules restrict any use of the information to criminally investigate or prosecute any alcohol or drug abuse patient.[facility] HospitalIn the event this information is protected by the Federal Confidentiality of Alcohol and Drug Abuse Patient Records regulations: The Federal rules restrict any use of the information to criminally investigate or prosecute any alcohol or drug abuse patient.[facility] HospitalIn the event this information is protected by the Federal Confidentiality of Alcohol and Drug Abuse Patient Records regulations: The Federal rules restrict any use of the information to criminally investigate or prosecute any alcohol or drug abuse patient.[facility]In the event this information is protected by the Federal Confidentiality of Alcohol and Drug Abuse Patient Records regulations: The Federal rules restrict any use of the information to criminally investigate or prosecute any alcohol or drug abuse patient.[facility] HospitalIn the event this information is protected by the Federal Confidentiality of Alcohol and Drug Abuse Patient Records regulations: The Federal rules restrict any use of the information to criminally investigate or prosecute any alcohol or drug abuse patient.[facility] HospitalIn the event this information is protected by the Federal Confidentiality of Alcohol and Drug Abuse Patient Records regulations: The Federal rules restrict any use of the information to criminally investigate or prosecute any alcohol or drug abuse patient.[facility] HospitalIn the event this information is protected by the Federal Confidentiality of Alcohol and Drug Abuse Patient Records regulations: The Federal rules restrict any use of the information to criminally investigate or prosecute any alcohol or drug abuse patient.[facility] HospitalIn the event this information is protected by the Federal Confidentiality of Alcohol and Drug Abuse Patient Records regulations: The Federal rules restrict any use of the information to criminally investigate or prosecute any alcohol or drug abuse patient.[facility] HospitalIn the event this information is protected by the Federal Confidentiality of Alcohol and Drug Abuse Patient Records regulations: The Federal rules restrict any use of the information to criminally investigate or prosecute any alcohol or drug abuse patient.[facility] HospitalIn the event this information is protected by the Federal Confidentiality of Alcohol and Drug Abuse Patient Records regulations: The Federal rules restrict any use of the information to criminally investigate or prosecute any alcohol or drug abuse patient.[facility] HospitalIn the event this information is protected by the Federal Confidentiality of Alcohol and Drug Abuse Patient Records regulations: The Federal rules restrict any use of the information to criminally investigate or prosecute any alcohol or drug abuse patient.[facility] HospitalIn the event this information is protected by the Federal Confidentiality of Alcohol and Drug Abuse Patient Records regulations: The Federal rules restrict any use of the information to criminally investigate or prosecute any alcohol or drug abuse patient.[facility] HospitalIn the event this information is protected by the Federal Confidentiality of Alcohol and Drug Abuse Patient Records regulations: The Federal rules restrict any use of the information to criminally investigate or prosecute any alcohol or drug abuse patient.[facility] HospitalIn the event this information is protected by the Federal Confidentiality of Alcohol and Drug Abuse Patient Records regulations: The Federal rules restrict any use of the information to criminally investigate or prosecute any alcohol or drug abuse patient.[facility] HospitalIn the event this information is protected by the Federal Confidentiality of Alcohol and Drug Abuse Patient Records regulations: The Federal rules restrict any use of the information to criminally investigate or prosecute any alcohol or drug abuse patient.[facility] HospitalIn the event this information is protected by the Federal Confidentiality of Alcohol and Drug Abuse Patient Records regulations: The Federal rules restrict any use of the information to criminally investigate or prosecute any alcohol or drug abuse patient.[facility] HospitalIn the event this information is protected by the Federal Confidentiality of Alcohol and Drug Abuse Patient Records regulations: The Federal rules restrict any use of the information to criminally investigate or prosecute any alcohol or drug abuse patient.[facility] HospitalIn the event this information is protected by the Federal Confidentiality of Alcohol and Drug Abuse Patient Records regulations: The Federal rules restrict any use of the information to criminally investigate or prosecute any alcohol or drug abuse patient.[facility] HospitalIn the event this information is protected by the Federal Confidentiality of Alcohol and Drug Abuse Patient Records regulations: The Federal rules restrict any use of the information to criminally investigate or prosecute any alcohol or drug abuse patient.[facility] HospitalIn the event this information is protected by the Federal Confidentiality of Alcohol and Drug Abuse Patient Records regulations: The Federal rules restrict any use of the information to criminally investigate or prosecute any alcohol or drug abuse patient.[facility] HospitalIn the event this information is protected by the Federal Confidentiality of Alcohol and Drug Abuse Patient Records regulations: The Federal rules restrict any use of the information to criminally investigate or prosecute any alcohol or drug abuse patient.[facility] HospitalIn the event this information is protected by the Federal Confidentiality of Alcohol and Drug Abuse Patient Records regulations: The Federal rules restrict any use of the information to criminally investigate or prosecute any alcohol or drug abuse patient.[facility] HospitalIn the event this information is protected by the Federal Confidentiality of Alcohol and Drug Abuse Patient Records regulations: The Federal rules restrict any use of the information to criminally investigate or prosecute any alcohol or drug abuse patient.[facility] the event this information is protected by the Federal Confidentiality of Alcohol and Drug Abuse Patient Records regulations: The Federal rules restrict any use of the information to criminally investigate or prosecute any alcohol or drug abuse patient.[facility] HospitalIn the event this information is protected by the Federal Confidentiality of Alcohol and Drug Abuse Patient Records regulations: The Federal rules restrict any use of the information to criminally investigate or prosecute any alcohol or drug abuse patient.[facility] HospitalIn the event this information is protected by the Federal Confidentiality of Alcohol and Drug Abuse Patient Records regulations: The Federal rules restrict any use of the information to criminally investigate or prosecute any alcohol or drug abuse patient.[facility] HospitalIn the event this information is protected by the Federal Confidentiality of Alcohol and Drug Abuse Patient Records regulations: The Federal rules restrict any use of the information to criminally investigate or prosecute any alcohol or drug abuse patient.[facility] HospitalIn the event this information is protected by the Federal Confidentiality of Alcohol and Drug Abuse Patient Records regulations: The Federal rules restrict any use of the information to criminally investigate or prosecute any alcohol or drug abuse patient.[facility] HospitalIn the event this information is protected by the Federal Confidentiality of Alcohol and Drug Abuse Patient Records regulations: The Federal rules restrict any use of the information to criminally investigate or prosecute any alcohol or drug abuse patient.[facility] HospitalIn the event this information is protected by the Federal Confidentiality of Alcohol and Drug Abuse Patient Records regulations: The Federal rules restrict any use of the information to criminally investigate or prosecute any alcohol or drug abuse patient.[facility] HospitalIn the event this information is protected by the Federal Confidentiality of Alcohol and Drug Abuse Patient Records regulations: The Federal rules restrict any use of the information to criminally investigate or prosecute any alcohol or drug abuse patient.[facility] HospitalIn the event this information is protected by the Federal Confidentiality of Alcohol and Drug Abuse Patient Records regulations: The Federal rules restrict any use of the information to criminally investigate or prosecute any alcohol or drug abuse patient.[facility] HospitalIn the event this information is protected by the Federal Confidentiality of Alcohol and Drug Abuse Patient Records regulations: The Federal rules restrict any use of the information to criminally investigate or prosecute any alcohol or drug abuse patient.[facility] HospitalIn the event this information is protected by the Federal Confidentiality of Alcohol and Drug Abuse Patient Records regulations: The Federal rules restrict any use of the information to criminally investigate or prosecute any alcohol or drug abuse patient.[facility] HospitalIn the event this information is protected by the Federal Confidentiality of Alcohol and Drug Abuse Patient Records regulations: The Federal rules restrict any use of the information to criminally investigate or prosecute any alcohol or drug abuse patient.[facility] HospitalIn the event this information is protected by the Federal Confidentiality of Alcohol and Drug Abuse Patient Records regulations: The Federal rules restrict any use of the information to criminally investigate or prosecute any alcohol or drug abuse patient.[facility] HospitalIn the event this information is protected by the Federal Confidentiality of Alcohol and Drug Abuse Patient Records regulations: The Federal rules restrict any use of the information to criminally investigate or prosecute any alcohol or drug abuse patient.[facility] HospitalIn the event this information is protected by the Federal Confidentiality of Alcohol and Drug Abuse Patient Records regulations: The Federal rules restrict any use of the information to criminally investigate or prosecute any alcohol or drug abuse patient.[facility] HospitalIn the event this information is protected by the Federal Confidentiality of Alcohol and Drug Abuse Patient Records regulations: The Federal rules restrict any use of the information to criminally investigate or prosecute any alcohol or drug abuse patient.[facility] HospitalIn the event this information is protected by the Federal Confidentiality of Alcohol and Drug Abuse Patient Records regulations: The Federal rules restrict any use of the information to criminally investigate or prosecute any alcohol or drug abuse patient.[facility] HospitalIn the event this information is protected by the Federal Confidentiality of Alcohol and Drug Abuse Patient Records regulations: The Federal rules restrict any use of the information to criminally investigate or prosecute any alcohol or drug abuse patient.[facility] HospitalIn the event this information is protected by the Federal Confidentiality of Alcohol and Drug Abuse Patient Records regulations: The Federal rules restrict any use of the information to criminally investigate or prosecute any alcohol or drug abuse patient.[facility] HospitalIn the event this information is protected by the Federal Confidentiality of Alcohol and Drug Abuse Patient Records regulations: The Federal rules restrict any use of the information to criminally investigate or prosecute any alcohol or drug abuse patient.[facility] HospitalIn the event this information is protected by the Federal Confidentiality of Alcohol and Drug Abuse Patient Records regulations: The Federal rules restrict any use of the information to criminally investigate or prosecute any alcohol or drug abuse patient.[facility] HospitalIn the event this information is protected by the Federal Confidentiality of Alcohol and Drug Abuse Patient Records regulations: The Federal rules restrict any use of the information to criminally investigate or prosecute any alcohol or drug abuse patient.[facility] HospitalIn the event this information is protected by the Federal Confidentiality of Alcohol and Drug Abuse Patient Records regulations: The Federal rules restrict any use of the information to criminally investigate or prosecute any alcohol or drug abuse patient.[facility] HospitalIn the event this information is protected by the Federal Confidentiality of Alcohol and Drug Abuse Patient Records regulations: The Federal rules restrict any use of the information to criminally investigate or prosecute any alcohol or drug abuse patient.[facility] HospitalIn the event this information is protected by the Federal Confidentiality of Alcohol and Drug Abuse Patient Records regulations: The Federal rules restrict any use of the information to criminally investigate or prosecute any alcohol or drug abuse patient.[facility] HospitalIn the event this information is protected by the Federal Confidentiality of Alcohol and Drug Abuse Patient Records regulations: The Federal rules restrict any use of the information to criminally investigate or prosecute any alcohol or drug abuse patient.[facility] HospitalIn the event this information is protected by the Federal Confidentiality of Alcohol and Drug Abuse Patient Records regulations: The Federal rules restrict any use of the information to criminally investigate or prosecute any alcohol or drug abuse patient.[facility] HospitalIn the event this information is protected by the Federal Confidentiality of Alcohol and Drug Abuse Patient Records regulations: The Federal rules restrict any use of the information to criminally investigate or prosecute any alcohol or drug abuse patient.[facility] HospitalIn the event this information is protected by the Federal Confidentiality of Alcohol and Drug Abuse Patient Records regulations: The Federal rules restrict any use of the information to criminally investigate or prosecute any alcohol or drug abuse patient.[facility] HospitalIn the event this information is protected by the Federal Confidentiality of Alcohol and Drug Abuse Patient Records regulations: The Federal rules restrict any use of the information to criminally investigate or prosecute any alcohol or drug abuse patient.[facility] HospitalIn the event this information is protected by the Federal Confidentiality of Alcohol and Drug Abuse Patient Records regulations: The Federal rules restrict any use of the information to criminally investigate or prosecute any alcohol or drug abuse patient.[facility] HospitalIn the event this information is protected by the Federal Confidentiality of Alcohol and Drug Abuse Patient Records regulations: The Federal rules restrict any use of the information to criminally investigate or prosecute any alcohol or drug abuse patient.[facility] HospitalIn the event this information is protected by the Federal Confidentiality of Alcohol and Drug Abuse Patient Records regulations: The Federal rules restrict any use of the information to criminally investigate or prosecute any alcohol or drug abuse patient.[facility] HospitalIn the event this information is protected by the Federal Confidentiality of Alcohol and Drug Abuse Patient Records regulations: The Federal rules restrict any use of the information to criminally investigate or prosecute any alcohol or drug abuse patient.[facility] HospitalIn the event this information is protected by the Federal Confidentiality of Alcohol and Drug Abuse Patient Records regulations: The Federal rules restrict any use of the information to criminally investigate or prosecute any alcohol or drug abuse patient.[facility] HospitalIn the event this information is protected by the Federal Confidentiality of Alcohol and Drug Abuse Patient Records regulations: The Federal rules restrict any use of the information to criminally investigate or prosecute any alcohol or drug abuse patient.[facility] HospitalIn the event this information is protected by the Federal Confidentiality of Alcohol and Drug Abuse Patient Records regulations: The Federal rules restrict any use of the information to criminally investigate or prosecute any alcohol or drug abuse patient.[facility] HospitalIn the event this information is protected by the Federal Confidentiality of Alcohol and Drug Abuse Patient Records regulations: The Federal rules restrict any use of the information to criminally investigate or prosecute any alcohol or drug abuse patient.[facility] HospitalIn the event this information is protected by the Federal Confidentiality of Alcohol and Drug Abuse Patient Records regulations: The Federal rules restrict any use of the information to criminally investigate or prosecute any alcohol or drug abuse patient.[facility] HospitalIn the event this information is protected by the Federal Confidentiality of Alcohol and Drug Abuse Patient Records regulations: The Federal rules restrict any use of the information to criminally investigate or prosecute any alcohol or drug abuse patient.[facility] HospitalIn the event this information is protected by the Federal Confidentiality of Alcohol and Drug Abuse Patient Records regulations: The Federal rules restrict any use of the information to criminally investigate or prosecute any alcohol or drug abuse patient.[facility] HospitalIn the event this information is protected by the Federal Confidentiality of Alcohol and Drug Abuse Patient Records regulations: The Federal rules restrict any use of the information to criminally investigate or prosecute any alcohol or drug abuse patient.[facility] HospitalIn the event this information is protected by the Federal Confidentiality of Alcohol and Drug Abuse Patient Records regulations: The Federal rules restrict any use of the information to criminally investigate or prosecute any alcohol or drug abuse patient.[facility] HospitalIn the event this information is protected by the Federal Confidentiality of Alcohol and Drug Abuse Patient Records regulations: The Federal rules restrict any use of the information to criminally investigate or prosecute any alcohol or drug abuse patient.[facility] HospitalIn the event this information is protected by the Federal Confidentiality of Alcohol and Drug Abuse Patient Records regulations: The Federal rules restrict any use of the information to criminally investigate or prosecute any alcohol or drug abuse patient.[facility] HospitalIn the event this information is protected by the Federal Confidentiality of Alcohol and Drug Abuse Patient Records regulations: The Federal rules restrict any use of the information to criminally investigate or prosecute any alcohol or drug abuse patient.[facility] HospitalIn the event this information is protected by the Federal Confidentiality of Alcohol and Drug Abuse Patient Records regulations: The Federal rules restrict any use of the information to criminally investigate or prosecute any alcohol or drug abuse patient.[facility] HospitalIn the event this information is protected by the Federal Confidentiality of Alcohol and Drug Abuse Patient Records regulations: The Federal rules restrict any use of the information to criminally investigate or prosecute any alcohol or drug abuse patient.[facility] HospitalIn the event this information is protected by the Federal Confidentiality of Alcohol and Drug Abuse Patient Records regulations: The Federal rules restrict any use of the information to criminally investigate or prosecute any alcohol or drug abuse patient.[facility] HospitalIn the event this information is protected by the Federal Confidentiality of Alcohol and Drug Abuse Patient Records regulations: The Federal rules restrict any use of the information to criminally investigate or prosecute any alcohol or drug abuse patient.[facility] the event this information is protected by the Federal Confidentiality of Alcohol and Drug Abuse Patient Records regulations: The Federal rules restrict any use of the information to criminally investigate or prosecute any alcohol or drug abuse patient.[facility] HospitalIn the event this information is protected by the Federal Confidentiality of Alcohol and Drug Abuse Patient Records regulations: The Federal rules restrict any use of the information to criminally investigate or prosecute any alcohol or drug abuse patient.[facility] HospitalIn the event this information is protected by the Federal Confidentiality of Alcohol and Drug Abuse Patient Records regulations: The Federal rules restrict any use of the information to criminally investigate or prosecute any alcohol or drug abuse patient.[facility] HospitalIn the event this information is protected by the Federal Confidentiality of Alcohol and Drug Abuse Patient Records regulations: The Federal rules restrict any use of the information to criminally investigate or prosecute any alcohol or drug abuse patient.[facility] HospitalIn the event this information is protected by the Federal Confidentiality of Alcohol and Drug Abuse Patient Records regulations: The Federal rules restrict any use of the information to criminally investigate or prosecute any alcohol or drug abuse patient.[facility] HospitalIn the event this information is protected by the Federal Confidentiality of Alcohol and Drug Abuse Patient Records regulations: The Federal rules restrict any use of the information to criminally investigate or prosecute any alcohol or drug abuse patient.[facility] HospitalIn the event this information is protected by the Federal Confidentiality of Alcohol and Drug Abuse Patient Records regulations: The Federal rules restrict any use of the information to criminally investigate or prosecute any alcohol or drug abuse patient.[facility] HospitalIn the event this information is protected by the Federal Confidentiality of Alcohol and Drug Abuse Patient Records regulations: The Federal rules restrict any use of the information to criminally investigate or prosecute any alcohol or drug abuse patient.[facility] HospitalIn the event this information is protected by the Federal Confidentiality of Alcohol and Drug Abuse Patient Records regulations: The Federal rules restrict any use of the information to criminally investigate or prosecute any alcohol or drug abuse patient.[facility] HospitalIn the event this information is protected by the Federal Confidentiality of Alcohol and Drug Abuse Patient Records regulations: The Federal rules restrict any use of the information to criminally investigate or prosecute any alcohol or drug abuse patient.[facility] HospitalIn the event this information is protected by the Federal Confidentiality of Alcohol and Drug Abuse Patient Records regulations: The Federal rules restrict any use of the information to criminally investigate or prosecute any alcohol or drug abuse patient.[facility] HospitalIn the event this information is protected by the Federal Confidentiality of Alcohol and Drug Abuse Patient Records regulations: The Federal rules restrict any use of the information to criminally investigate or prosecute any alcohol or drug abuse patient.[facility] HospitalIn the event this information is protected by the Federal Confidentiality of Alcohol and Drug Abuse Patient Records regulations: The Federal rules restrict any use of the information to criminally investigate or prosecute any alcohol or drug abuse patient.[facility] HospitalIn the event this information is protected by the Federal Confidentiality of Alcohol and Drug Abuse Patient Records regulations: The Federal rules restrict any use of the information to criminally investigate or prosecute any alcohol or drug abuse patient.[facility] HospitalIn the event this information is protected by the Federal Confidentiality of Alcohol and Drug Abuse Patient Records regulations: The Federal rules restrict any use of the information to criminally investigate or prosecute any alcohol or drug abuse patient.[facility] HospitalIn the event this information is protected by the Federal Confidentiality of Alcohol and Drug Abuse Patient Records regulations: The Federal rules restrict any use of the information to criminally investigate or prosecute any alcohol or drug abuse patient.[facility] HospitalIn the event this information is protected by the Federal Confidentiality of Alcohol and Drug Abuse Patient Records regulations: The Federal rules restrict any use of the information to criminally investigate or prosecute any alcohol or drug abuse patient.[facility] HospitalIn the event this information is protected by the Federal Confidentiality of Alcohol and Drug Abuse Patient Records regulations: The Federal rules restrict any use of the information to criminally investigate or prosecute any alcohol or drug abuse patient.[facility] HospitalIn the event this information is protected by the Federal Confidentiality of Alcohol and Drug Abuse Patient Records regulations: The Federal rules restrict any use of the information to criminally investigate or prosecute any alcohol or drug abuse patient.[facility] Teams (unrecognized sec tion and content) Receiver Setter Relationship Specialty Start Date End Date Clau Baca MD [address] [place] [address] PCP - General Internal Medicine 12/27/17 Receiver Setter Relationship Specialty Start Date End Date Clau Baca MD [address] [place] [address] PCP - General Internal Medicine 12/27/17 Tree Chaparro, custom tailor apprenticeFoundry Manager Internal Medicine 08/23/21 Receiver Setter Relationship Specialty Start Date End Date Clau Baca MD [address] [place] [address] PCP - General Internal Medicine 12/27/17 Tree Chaparro, custom tailor apprenticeFoundry Manager Internal Medicine 08/23/21 Receiver Setter Relationship Specialty Start Date End Date Clau Baca MD [address] [place] [address] PCP - General Internal Medicine 12/27/17 Tree Chaparro, custom tailor apprenticeFoundry Manager Internal Medicine 08/23/21 Receiver Setter Relationship Specialty Start Date End Date Clau Baca MD [address] [place] [address] PCP - General Internal Medicine 12/27/17 Tree Chaparro, custom tailor apprenticeFoundry Manager Internal Medicine 08/23/21 Receiver Setter Relationship Specialty Start Date End Date Clau Baca MD [address] [place] [address] PCP - General Internal Medicine 12/27/17 Tree Chaparro, custom tailor apprenticeFoundry Manager Internal Medicine 08/23/21 Receiver Setter Relationship Specialty Start Date End Date Clau Baca MD [address] [place] [address] PCP - General Internal Medicine 12/27/17 Tree Chaparro, custom tailor apprenticeFoundry Manager Internal Medicine 08/23/21 Receiver Setter Relationship Specialty Start Date End Date Clau Baca MD [address] [place] [address] PCP - General Internal Medicine 12/27/17 Tree Chaparro, custom tailor apprenticeFoundry Manager Internal Medicine 08/23/21 Receiver Setter Relationship Specialty Start Date End Date Clau Baca MD [address] [place] [address] PCP - General Internal Medicine 12/27/17 Tree Chaparro, custom tailor apprenticeFoundry Manager Internal Medicine 08/23/21 Receiver Setter Relationship Specialty Start Date End Date Clau Baca MD [address] [place] [address] PCP - General Internal Medicine 12/27/17 Tree Chaparro, custom tailor apprenticeFoundry Manager Internal Medicine 08/23/21 Receiver Setter Relationship Specialty Start Date End Date Clau Baca MD [address] [place] [address] PCP - General Internal Medicine 12/27/17 Tree Chaparro, custom tailor apprenticeFoundry Manager Internal Medicine 08/23/21 Receiver Setter Relationship Specialty Start Date End Date Clau Baca MD [address] [place] [address] PCP - General Internal Medicine 12/27/17 Tree Chaparro, custom tailor apprenticeFoundry Manager Internal Medicine 08/23/21 Receiver Setter Relationship Specialty Start Date End Date Clau Baca MD [address] [place] [address] PCP - General Internal Medicine 12/27/17 Tree Chaparro, custom tailor apprenticeFoundry Manager Internal Medicine 08/23/21 Receiver Setter Relationship Specialty Start Date End Date Clau Baca MD [address] [facility] [place] [address] PCP - General Internal Medicine 12/27/17 Tree Chaparro, custom tailor apprenticeFoundry Manager Internal Medicine 08/23/21 Receiver Setter Relationship Specialty Start Date End Date Clau Baca MD [address] [facility] [place] [address] PCP - General Internal Medicine 12/27/17 Tree Chaparro, custom tailor apprenticeFoundry Manager Internal Medicine 08/23/21 Receiver Setter Relationship Specialty Start Date End Date Clau Baca MD [address] [facility] [place] [address] PCP - General Internal Medicine 12/27/17 Tree Chaparro, custom tailor apprenticeFoundry Manager Internal Medicine 08/23/21 Receiver Setter Relationship Specialty Start Date End Date Clau Baca MD [address] [facility] [place] [address] PCP - General Internal Medicine 12/27/17 Tree Chaparro, custom tailor apprenticeFoundry Manager Internal Medicine 08/23/21 Receiver Setter Relationship Specialty Start Date End Date Clau Baca MD [address] [place] [address] PCP - General Internal Medicine 12/27/17 Carmelo Leavitt, custom tailor apprenticeFoundry Manager Internal Medicine 08/23/21 Receiver Setter Relationship Specialty Start Date End Date Clau Baca MD [address] [place] [address] PCP - General Internal Medicine 12/27/17 Carmelo Leavitt, custom tailor apprenticeFoundry Manager Internal Medicine 08/23/21 Receiver Setter Relationship Specialty Start Date End Date Clau Baca MD [address] [place] [address] PCP - General Internal Medicine 12/27/17 Carmelo Leavitt, custom tailor apprenticeFoundry Manager Internal Medicine 08/23/21 Receiver Setter Relationship Specialty Start Date End Date Clau Baca MD [address] [place] [address] PCP - General Internal Medicine 12/27/17 Carmelo Leavitt, custom tailor apprenticeFoundry Manager Internal Medicine 08/23/21 Receiver Setter Relationship Specialty Start Date End Date Clau Baca MD [address] [place] [address] PCP - General Internal Medicine 12/27/17 Carmelo Leavitt, custom tailor apprenticeFoundry Manager Internal Medicine 08/23/21 Receiver Setter Relationship Specialty Start Date End Date Clau Baca MD [address] [place] [address] PCP - General Internal Medicine 12/27/17 Carmelo Leavitt, custom tailor apprenticeFoundry Manager Internal Medicine 08/23/21 Receiver Setter Relationship Specialty Start Date End Date Clau Baca MD [address] [place] [address] PCP - General Internal Medicine 12/27/17 Carmelo Leavitt, custom tailor apprenticeFoundry Manager Internal Medicine 08/23/21 Receiver Setter Relationship Specialty Start Date End Date Clau Baca MD [address] [place] [address] PCP - General Internal Medicine 12/27/17 Carmelo Leavitt, custom tailor apprenticeFoundry Manager Internal Medicine 08/23/21 Receiver Setter Relationship Specialty Start Date End Date Clau Baca MD [address] [place] [address] PCP - General Internal Medicine 12/27/17 Carmelo Leavitt, custom tailor apprenticeFoundry Manager Internal Medicine 08/23/21 Receiver Setter Relationship Specialty Start Date End Date Clau Baca MD [address] [place] [address] PCP - General Internal Medicine 12/27/17 Carmelo Leavitt, custom tailor apprenticeFoundry Manager Internal Medicine 08/23/21 Receiver Setter Relationship Specialty Start Date End Date Clau Baca MD [address] [facility], [place] [address] PCP - General Internal Medicine 12/27/17 Carmelo Leavitt RN Foundry Manager Internal Medicine 08/23/21 Team Status: Active [...] Alem Hardwick MD Attending Provider, Referring P tone Active Team Status: Inactive Member Role Status [...] Dr. Ashley Andrade MD Attending Provider Active Receiver Setter Relationship Specialty Start Date End Date Clau Baca MD [address] [place], [place] [address] PCP - General Internal Medicine 12/27/17 Carmelo Leavitt, custom tailor apprenticeFoundry Manager Internal Medicine 08/23/21 Team Status: Active [...] Dr. Ca LUNA MD Attending Provider Active Receiver Setter Relationship Specialty Start Date End Date Clau Baca MD [address] [place], [place] [address] PCP - General Internal Medicine 12/27/17 Carmelo Leavitt, custom tailor apprenticeFoundry Manager Internal Medicine 08/23/21 Receiver Setter Relationship Specialty Start Date End Date Clau Baca MD [address] [place], [place] [address] PCP - General Internal Medicine 12/27/17 Carmelo Leavitt, custom tailor apprenticeFoundry Manager Internal Medicine 08/23/21 Receiver Setter Relationship Specialty Start Date End Date Clau Baca MD [address] [place] [address] PCP - General Internal Medicine 12/27/17 Carmelo Leavitt, custom tailor apprenticeFoundry Manager Internal Medicine 08/23/21 Receiver Setter Relationship Specialty Start Date End Date Clau Baca MD [address] [place] [address] PCP - General Internal Medicine 12/27/17 Carmelo Leaivtt, custom tailor apprenticeFoundry Manager Internal Medicine 08/23/21 Receiver Setter Relationship Specialty Start Date End Date Clau Baca MD [address] [place] [address] PCP - General Internal Medicine 12/27/17 Carmelo Leavitt, custom tailor apprenticeFoundry Manager Internal Medicine 08/23/21 Receiver Setter Relationship Specialty Start Date End Date Clau Baca MD [address] [place] [address] PCP - General Internal Medicine 12/27/17 Carmelo Leavitt, custom tailor apprenticeFoundry Manager Internal Medicine 08/23/21 Receiver Setter Relationship Specialty Start Date End Date Clau Baca MD [address] [place] [address] PCP - General Internal Medicine 12/27/17 Carmelo Leavitt, custom tailor apprenticeFoundry Manager Internal Medicine 08/23/21 Receiver Setter Relationship Specialty Start Date End Date Clau Baca MD [address] [place] [address] PCP - General Internal Medicine 12/27/17 Carmelo Leavitt, custom tailor apprenticeFoundry Manager Internal Medicine 08/23/21 01/11/23 Receiver Setter Relationship Specialty Start Date End Date Clau Baca MD [address] [place] [address] PCP - General Internal Medicine 12/27/17 Receiver Setter Relationship Specialty Start Date End Date Clau Baca MD [address] [place] [address] PCP - General Internal Medicine 12/27/17 Receiver Setter Relationship Specialty Start Date End Date Clau Baca MD [address] [place] [address] PCP - General Internal Medicine 12/27/17 Team Status: Inactive Member Role Status Dates Dr. Ca Silva MD Primary Care Provider Active Dr. Ca LUNA MD Attending Provider Active Receiver Setter Relationship Specialty Start Date End Date Clau Baca MD [address] [place] [address] PCP - General Internal Medicine 12/27/17 Team Status: Inactive Member Role Status Dates Dr. Ca Silva MD Primary Care Provider Active Dr. Ca LUNA MD Attending Provider, Referring Provider Active Receiver Setter Relationship Specialty Start Date End Date Clau Baca MD [address] [place] [address] PCP - General Internal Medicine 12/27/17 Receiver Setter Relationship Specialty Start Date End Date Clau Baca MD [address] [place] [address] PCP - General Internal Medicine 12/27/17 Receiver Setter Relationship Specialty Start Date End Date Clau Baca MD [address] [place] [address] PCP - General Internal Medicine 12/27/17 Carmelo Leavitt, custom tailor apprenticeFoundry Manager Internal Medicine 08/23/21 01/11/23 Receiver Setter Relationship Specialty Start Date End Date Clau Baca MD [address] [place] [address] PCP - General Internal Medicine 12/27/17 Carmelo Leavitt, custom tailor apprenticeFoundry Manager Internal Medicine 08/23/21 01/11/23 Receiver Setter Relationship Specialty Start Date End Date Clau Baca MD [address] [place] [address] PCP - General Internal Medicine 12/27/17 Receiver Setter Relationship Specialty Start Date End Date Clau Baca MD [address] [place] [address] PCP - General Internal Medicine 12/27/17 Receiver Setter Relationship Specialty Start Date End Date Clau Baca MD [address] [place] [address] PCP - General Internal Medicine 12/27/17 Receiver Setter Relationship Specialty Start Date End Date Clau Baca MD [address] [place] [address] PCP - General Internal Medicine 12/27/17 Karie Kingston PA-C [address] [place] [id number] Animal Shelter Manager Family Medicine 05/12/24 Eryn Elliott APRN.INDUSTRIAL WASTE TREATMENT TECHNICIAN [address] [place] [address] Animal Shelter Manager Internal Medicine 05/12/24 Sharee Araiza PA-C [address] [place] [address] [facility] Family [facility] 05/12/24 Receiver Setter Relationship Specialty Start Date End Date Clau Baca MD [address] [place] [address] PCP - General Internal Medicine 12/27/17 Karie Kingston PA-C [address] [place] [address] Animal Shelter Manager Family [facility] 05/12/24 Eryn Elliott APRN.INDUSTRIAL WASTE TREATMENT TECHNICIAN [address] [place] [address] Animal Shelter Manager Internal Medicine 05/12/24 Sharee Araiza PA-C [address] [place] [address] [facility] 05/12/24 Receiver Setter Relationship Specialty Start Date End Date Clau Baca MD [address] [place] [address] PCP - General Internal Medicine 12/27/17 Karie Kingston PA-C [address] [place], [place] [id number] [phone] [facility] Family Medicine 05/12/24 Eryn Elliott APRN.INDUSTRIAL WASTE TREATMENT TECHNICIAN [address] [place] [address] Animal Shelter Manager Internal Medicine 05/12/24 Sharee Araiza PA-C [address] [place] [address] Animal Shelter Manager Family [facility] 05/12/24 Receiver Setter Relationship Specialty Start Date End Date Clau Baca MD [address] [place] [address] PCP - General Internal Medicine 12/27/17 Karie Kingston PA-C [address] [place], [place] [id number] Animal Shelter Manager Family Medicine 05/12/24 Eryn Elliott APRN.INDUSTRIAL WASTE TREATMENT TECHNICIAN [address] [place] [address] Animal Shelter Manager Internal Medicine 05/12/24 Sharee Araiza PA-C [address] [place] [address] Animal Shelter Manager Family Medicine 05/12/24 Receiver Setter Relationship Specialty Start Date End Date Clau Baca MD [address] [place] [address] PCP - General Internal Medicine 12/27/17 Karie Kingston PA-C [address] [place] [phone] Animal Shelter Manager Family Medicine 05/12/24 Eryn Elliott APRN.INDUSTRIAL WASTE TREATMENT TECHNICIAN [address] [place] [address] Animal Shelter Manager Internal Medicine 05/12/24 Sharee Araiza PA-C [address] [place] [address] Animal Shelter Manager Family Medicine 05/12/24 Receiver Setter Relationship Specialty Start Date End Date Clau Baca MD [address] [place] [address] PCP - General Internal Medicine 12/27/17 Karie Kingston PA-C [address] [place], [place] [id number] [phone] Animal Shelter Manager Family Medicine 05/12/24 Eryn Elliott APRN.INDUSTRIAL WASTE TREATMENT TECHNICIAN [address] [place] [address] Animal Shelter Manager Internal Medicine 05/12/24 Sharee Araiza PA-C [address] [place] [address] Animal Shelter Manager Family Medicine 05/12/24 Receiver Setter Relationship Specialty Start Date End Date Clau Baca MD [address] [place] [address] PCP - General Internal Medicine 12/27/17 Karie Kingston PA-C [address] [place] [address] Animal Shelter Manager Family Medicine 05/12/24 Eryn Elliott, BOAT RENTAL CLERK.INDUSTRIAL WASTE TREATMENT TECHNICIAN [address] [place] [address] Animal Shelter Manager Internal Medicine 05/12/24 Sharee Araiza PA-C [address] [place] [address] Animal Shelter Manager Family Medicine 05/12/24 Receiver Setter Relationship Specialty Start Date End Date Clau Baca MD [address] [facility], [place] [address] PCP - General Internal Medicine 12/27/17 Karie Kingston PA-C [address] [place] [address] Animal Shelter Manager Family Medicine 05/12/24 Eryn Elliott APRN.INDUSTRIAL WASTE TREATMENT TECHNICIAN [address] [place] [address] Animal Shelter Manager Internal Medicine 05/12/24 Sharee Araiza PA-C [address] [place] [address] [facility] Team Status: Inactive Member Role Status Dates Dr. Ca Silva MD Primary Care Provider Active Start: October 10, 2024 End: October 10, 2024 Dr. José Miguel LUNA MD Attending Provider Active Start: October 10, 2024 End: October 10, 2024 Dr. José Miguel LUNA MD Referring Provider Active Start: October 10, 2024 End: October 10, 2024 Receiver Setter Relationship Specialty Start Date End Date Clau Baca MD [address] [place] [address] PCP - General Internal Medicine 12/27/17 Eryn Elliott APRN.INDUSTRIAL WASTE TREATMENT TECHNICIAN [address] [facility], [place] [address] Animal Shelter Manager Internal Medicine 05/12/24 Receiver Setter Relationship Specialty Start Date End Date Clau Baca MD [address] [facility], [place] [address] PCP - General Internal Medicine 12/27/17 Liz Elliotty, BOAT RENTAL CLERK.INDUSTRIAL WASTE TREATMENT TECHNICIAN [address] [place] [address] Animal Shelter Manager Internal Medicine 05/12/24 Reason for Visit (unrecogniz [...] Comments Patient Update Reason Comments [facility] agree to follow request Reason Comments Home Health Point of Care Results Orders Reason Comments Social Work Delay of Care Reason Comments [facility] OT POC Reason Comments Results CBC Reason [...] 3+ VW Anatoly Brown, DO [address] [place] [address] [place] [address] Referral ID Status Reason Start Date Expiration Date V isits Requested Visits Authorized [id number] Closed Auto-Generate d Referral 01/15/2021 02/14/2022 1 1 Reason Comments Non-Chemotherapy Treatment Specialty Diagnoses / Procedures Referred By Contac t Referred To Contact Diagnoses Anemia due to stage 3b chronic kidney disease (HCC) (HCC) History of gastric bypass Iron malabsorption Raman Caruso, DO [address] [place] [address] [facility] [address] [place] [address] Referral ID Status Reason Start Date Expiration Date V isits Requested Visits Authorized [id number] Authorized 05/21/2024 08/19/2024 99 99 Specialty Diagnoses / Procedures Referred By Contac t Referred To Contact Diagnoses Anemia due to stage 3b chronic kidney disease (HCC) (HCC) History of gastric bypass Iron malabsorption Raman Caruso, DO [address] [place] [address] [facility] [address] [place] [address] Reason Comments Fax Labs Reason Comments Electronic [...] BE BASED ON THE PRIMARY CLINICAL RECORDS. [facility]. provides no warranty or guarantee of the accuracy or completeness of information in this document.
[2025-05-27 08:44] LABS: Hematocrit 24.1 % (37-47); Hemoglobin 7.4 g/dL (12.0-15.0); Mean Corp Hgb Conc 30.7 g/dL (32-36); Mean Corpuscular Volume 101.7 fL (81-99); Mean Platelet Vol. 11.0 fl (6.2-12.0); Platelet Count 161 K/mm3 (150-450); RBC Distribution Width CV 13.1 % (11.6-14.6); RBC Distribution Width SD 48.1 fl (35.1-43.9); Red Blood Count 2.37 M/mm3 (4.2-5.4); White Blood Count 5.0 K/mm3 (4.4-11.0)
[2025-05-27 08:50] LABS: Anion Gap 14 (7-18); BUN 43 mg/dL (4-19); BUN/Creat Ratio 28.0 RATIO (10-20); Calcium,Total 8.3 mg/dL (7.6-11.0); Carbon Dioxide 18.4 mmol/L (20.0-29.0); Chloride 109 mmol/L (96-106); Glucose 81 mg/dL (70-99); Potassium 4.3 mmol/L (3.5-5.1)
== END ==
LOC: OLS.SW 05:00
PROVIDERS: PCP Internal Medicine; Visit Provider Internal Medicine
DX: G20.C Parkinsonism, unspecified (principal)
CPT/HCPCS: 36415; 80048; 85027